=== PATIENT | female | born 1970 | race Caucasian/White ===

== ENCOUNTER 2024-03-26 00:27 | Emergency (ER) | payer BC, SELFPAY ==
[2024-03-26 00:34] VITALS: BP 150/90; PULSE 86; TEMP 36.7; O2SAT 100; BMI 25.1
[2024-03-26 01:23] LABS: D Dimer 1.05 mg/L FEU (<=0.59)
--- NOTE | 2024-03-26 01:39 | ED_ITS ---
HPI - Extremity Problem General Chief complaint: Extremity Problem, Nontraumatic Stated complaint: LEG PAIN/POST SURGERY Time Seen by Provider: 03/26/24 00:30 Source: patient Mode of arrival: walk-in Limitations: no limitations History of Present Illness HPI Narrative: This 53-year-old female who has a history of pulmonary embolism after surgery in the past presents for evaluation of swelling behind her right knee. The patient states that she had an elective tummy tuck at [facility] last Sunday. They told her to expect some bruising on to her abdominal wall, mons pubis and upper legs. She states that she has had the normal amount of bruising but started having some swelling behind her right knee in the past 1 to 2 days that is concerning to her. She does not smoke. She is not on any hormones or control. She denies any chest pain or shortness of breath. She has no dizziness tachycardia or palpitations. She was not told to take any blood thinners after her surgery. Related Data Home Medications ?Medication ?Instructions ?Recorded ?Confirmed losartan 50 mg-hydrochlorothiazide tab 03/26/24 12.5 mg tablet metoprolol succinate 25 mg mg PO 03/26/24 tablet,extended release 24 hr pantoprazole 40 mg tablet,delayed mg PO 03/26/24 release Allergies Allergy/AdvReac Type Severity Reaction Status Date / Time No Known Drug Allergies Allergy Verified 03/26/24 00:37 Review of Systems ROS Status of ROS 10 or more systems reviewed and unremark able except as noted in history and below Exam Narrative Exam Narrative: Vital signs and Nursing Notes reviewed: Patient is afebrile with a normal pulse, blood pressure is mildly elevated at 150/90, she is not hypoxic with pulse ox of 100% on room air General: Awake, alert, oriented, no acute distress, lying comfortably on the stretcher HEENT: Normocephalic atraumatic, mucous membranes are moist and pink, eyes are clear, normal conjunctiva, vision is grossly intact, posterior pharynx is normal in appearance. Chest: Lungs are clear to auscultation with good air entry, there is no wheezing rhonchi or rales appreciated no accessory muscle use, patient is speaking in complete sentences-no chest wall tenderness to palpation CVS: Regular rate and rhythm S1-S2, no murmurs rubs or gallops, pulses are brisk and equal bilaterally ABD: She is wearing an abdominal binder which she does not wish to remove. There is some notable bruising distally to the binder. Extremities: Moving all extremities, there is mild fullness behind the right knee in the posterior popliteal region. There is no calf swelling, induration, redness palpable cords or other notable abnormality. Patient is wearing shorts. Calf sizes are equal. Dorsalis pedis pulses are brisk and equal bilaterally. Feet are warm and sensate. There is some bruising on the upper thighs bilaterally consistent with postoperative state. Skin: Normal in appearance without rash,pallor, petechiae or purpura Neuro: No focal deficits Constitutional Vital Signs, click to edit/add: Last Vital Signs Temp 98.0 F 03/26/24 00:34 Pulse 86 03/26/24 00:34 Resp 18 03/26/24 00:34 BP 150/90 H 03/26/24 00:34 Pulse Ox 100 03/26/24 00:34 O2 Del Method Room Air 03/26/24 00:34 Course Vital Signs Vital signs: Vital Signs Temperature 98.0 F 03/26/24 00:34 Pulse Rate 86 03/26/24 00:34 Respiratory Rate 18 03/26/24 00:34 Blood Pressure 150/90 H 03/26/24 00:34 Pulse Oximetry 100 03/26/24 00:34 Oxygen Delivery Method Room Air 03/26/24 00:34 Temperature 98.0 F 03/26/24 00:34 Pulse Rate 86 03/26/24 00:34 Respiratory Rate 18 03/26/24 00:34 Blood Pressure 150/90 H 03/26/24 00:34 Pulse Oximetry 100 03/26/24 00:34 Oxygen Delivery Method Room Air 03/26/24 00:34 MDM - Extremity (Nontraumatic) MDM Narrative Medical decision making narrative: This 53-year-old female who is postop day 4 after having an elective tummy tuck surgery with kathy Platt presents for evaluation of lower extremity swelling specifically behind her right knee. The patient does not smoke. She is not on any control. She has been active since her surgery but does have a history of a postoperative PE in the past. She denies any chest pain or shortness of breath. Her vital signs are stable. She has some mild fullness behind her right knee as well as some small varicose veins. I explained to her that we could get a D-dimer and if it was positive schedule her for an outpatient ultrasound or get a CT scan of her chest. She does not feel the CT scan of her chest is necessary as she is not having any symptoms of a PE. The D-dimer was elevated at 1.05. She was given an oral Eliquis and will be scheduled for outpatient ultrasounds of her lower extremities today at 5 PM. She was encouraged return the emergency department for chest pain dizziness palpitations tachycardia syncope or any concerns. She will be referred to the ER from ultrasound for any positive findings. She is in agreement with this plan. Lab Data Labs: Lab Results 03/26/24 Range/Units 00:58 D-Dimer 1.05 H* (<=0.59) mg/L FEU Discharge Plan Discharge Stand Alone Forms: Portal Instructions Chief Complaint: Extremity Problem, Nontraumatic Clinical Impression: Swelling of lower extremity Patient Disposition: Home, Self-Care Time of Disposition Decision: 01:34 Condition: Good Prescriptions / Home Meds: No Action pantoprazole 40 mg tablet,delayed release (DR/EC) PO metoprolol succinate 25 mg tablet extended release 24 hr PO losartan-hydrochlorothiazide 50-12.5 mg tablet Print Language: Tamazight Instructions: Leg Edema (ED) Additional Instructions: Follow-up tomorrow for an ultrasound of your legs. It is scheduled for 5 PM. Please report to registration around 4:30- 4:45 PM for your ultrasound at 5 PM. Referrals: Grady Arriaga DO [Primary Care Provider] - 1 week
[2024-03-26] MEDS: APIXABAN 5 MG TABLET 10 MG PO (01:52)
[2024-03-26 01:55] VITALS: BP 146/82; PULSE 73; O2SAT 100
== END 2024-03-26 01:55 | disposition home or self-care (01) ==
PROVIDERS: Emergency Provider Emergency Medicine; PCP Internal Medicine
DX: M79.89 Other specified soft tissue disorders (principal); R79.1 Abnormal coagulation profile; Z86.711 Personal history of pulmonary embolism; Z98.890 Other specified postprocedural states
CPT/HCPCS: 36415; 85378; 93970; 99283

== ENCOUNTER 2024-03-26 16:16 | Outpatient (OUT) | payer BC, SELFPAY ==
--- NOTE | 2024-03-26 16:30 | US_ITS ---
[facility] [place] [id number] Patient Name: CASEY DIAZ MRN: [id number] date: 1970 Sex: F Assigned Patient Location: [place] Current Patient Location: [place] Accession/Order Number: [id number] Exam Date: 03/26/2024 16:38 Report Date: 03/26/2024 18:13 At the request of: PILI THOMASON Procedure: US venous doppler LE BI EXAM: US venous doppler LE BI HISTORY: ELEVATED D-DIMER R79.1 COMPARISON: None. TECHNIQUE: Ultrasonography of both lower extremities is performed from the groin to the calf. Resendiz scale images are performed, as well as color Doppler images with spectral waveforms. FINDINGS: There is normal compressibility of the deep venous structures. No intraluminal thrombus. Normal color Doppler images with spectral waveforms. Normal response to augmentation. US/US venous doppler LE BI IMPRESSION: No evidence for deep venous thrombosis. Electronically authenticated by: JACKELIN CHANDRA Date: 03/26/2024 18:13
--- OUTSIDE RECORDS SUMMARY | 2024-03-26 16:34 | XMS_ITS | CCD ---
Author Organization [facility] Care Team Providers Care Commercial Lines Underwriter Name Role Phone Bart Grady Toney Unavailable Unavailable Unavailable GRADY ARRIAGA Primary Care Physician Clare Justin Unavailable Dedra, Dr. Ulrich Referring Unavaila Grady Jaime Primary Care Unavailchago Colmenares, Dr. Ulrich Attending Unavaila madhuri Colmenares, Dr. Ulrich Referring Unavaila ble Grady Arriaga Palmer Primary Care Unavailabl e Dedra, Dr. Ulrich Attending Unavaila ble Gela Ortiz Unavailable Grady Arriaga Unavailable BART, DR GAINES Primary Care Unavailable JUAN ., DR DHALIWAL Consulting Unavailable JUAN ., DR DHALIWAL Attending Unavailable JUAN ., DR DHALIWAL Admitting Unavailable JUAN ., DR DHALIWAL Admitting Unavailable JUAN ., DR DHALIWAL Attending Unavailable BART, DR GAINES Primary Care Unavailable RYE, DR CARLOS Gipson Consulting Unavailable JUAN ., DR DHALIWAL Consulting Unavailable JUAN ., DR DHALIWAL Admitting Unavailable JUAN ., DR DHALIWAL Consulting Unavailable JUAN ., DR DHALIWAL Attending Unavailable BART, DR GAINES Primary Care Unavailable KELLY GARVEY Attending Unavailable ZOË Delacruz, KELLY Admitting Unavailable BART, DR GAINES Primary Care Unavailable CARLOS RUBI Consulting Unavailable ZOË Delacruz, KELLY Consulting Unavailable ADAIR SCHMITT Consulting Unavaila ble BART, DR GAINES Attending Unavailable BART, DR GAINES Admitting Unavailable BART, DR GAINES Primary Care Unavailable JUAN ., DR DHALIWAL Admitting Unavailable JUAN ., DR DHALIWAL Consulting Unavailable JUAN ., DR DHALIWAL Attending Unavailable BART, DR GAINES Primary Care Unavailable BART, DR GAINES Admitting Unavailable BART, DR GAINES Primary Care Unavailable BART, DR GAINES Consulting Unavailable BART, DR GAINES Attending Unavailable BART, DR GAINES Admitting Unavailable BART, DR GAINES Primary Care Unavailable BART, DR GAINES Consulting Unavailable BART, DR GAINES Attending Unavailable BART, DR GAINES Primary Care Unavailable KEKE, JOSIAH De Los Santos Consulting Unavailable KEKE, JOSIAH De Los Santos Attending Unavailable KEKE, JOSIAH De Los Santos Admitting Unavailable LAM DORSEY Consulting Unavailable Allergies Allergy Classification Reported Allergen(s) Allergy Type Date of Onset Reaction(s) Facility (3 sources) patient allergy list reviewed by nurse or physicia Propensity to adverse reactions 8 Comment:Done [employer] Other (3 sources) NONE CURRENT Propensity to adverse reactions 0 NONE CURRENT [employer] [facility] Other (3 sources) Allergies Reconciled Propensity to adverse reactions Unknown [employer] [facility] Other Medications Current Medications Medication Drug Class(es) Dates Sig (Normalized) Sig (Original) aspirin 81 mg delayed release oral tablet (20 sources) Platelet Aggregation Inhibitor, Nonsteroidal Anti-inflammatory Drug Start: 01-08-2024 take 81 mg by mouth once daily Aspirin Active 81 MG PO Daily January 08, 2024 12:00am Start: 02-21-2022 take 1 mg by mouth once daily aspirin 81 mg Oral EC Tab mg tab(s), Oral, Daily, Refills(s) 0 Start Date: 02/21/22 Status: Ordered take 1 tablet by daysi th every twenty-four hours Aspirin 81 MG 1 tablet Orally Once a day Active Baby Aspirin Not -Taking/PRN Baby Aspirin Not -Taking Baby Aspirin Act glendy Augmentin Tablets 875 MG (1 source) Start: 08-03-2021 take 1 tablet by mouth every twelve hours Augmentin Tablets 875 MG 1 tab(s) orally bid for 10 day(s) Jul, Active cephalexin 500 mg oral capsule (2 sources) Cephalosporin Antibacterial Start: 02-21-2022 take 1 mg by mouth every twelve hours Keflex 500 mg Cap mg cap(s), Oral, q12hr, Refills(s) 0 Start Date: 02/21/22 Status: Ordered ciprofloxacin 500 mg oral tablet (1 source) Quinolone Antimicrobial Start: 02-28-2022 Cipro 500 mg Tab See Instructions, Take 1 tab day prior to procedure and 1 tab day of procedure after the procedure, # 2 tab(s), Refills(s) 0, Pharmacy: [id number], 169, cm, 02/28/22 9:30:00 EDT, Height/Length Dosing, 95, kg, 02/21/22 14:43:00 EDT, Marciano... Start Date: 02/28/22 Status: Ordered Claritin-D 24 Hour 10-240 MG (1 source) Start: 05-28-2023 take 10-240 mg by mouth once daily Claritin-D 24 Hour 10-240 MG 1 tablet Orally Once a day for 30 days May, Active dexamethasone 1 mg/ml / neomycin 3.5 mg/ml / polymyxin b 44816 unt/ml ophthalmic suspension (1 source) Aminoglycoside Antibacterial, Polymyxin-class Antibacterial, Corticosteroid Start: 11-30-2020 take 2 drop(s) into the eye(s) four times daily Maxitrol 3.5-97894-2.1 2 drops into affected eye Ophthalmic Four times a day for 4 days Nov, Active escitalopram 5 mg oral tablet (6 sources) Serotonin Reuptake Inhibitor take 1 tablet by mouth once daily in the evening Escitalopram Oxalate 5 MG 1 tablet Orally Once a day, in evening for 30 days Active Lexapro Active fluticasone (1 source) Corticosteroid Start: 08-03-2021 take 2 spray(s) nasal route once daily FLONASE 50 mcg 2 sprays nasally qd Jul, Active hydroCHLOROthiazide 12.5 mg / losartan potassium 50 mg oral tablet (15 sources) Thiazide Diuretic, Angiotensin 2 Receptor Ophelia Start: 01-08-2024 take 1 tablet by mouth once daily Losartan-Hyd rochlorothia zide Active 1 TAB PO Daily January 08, 2024 12:00am Start: 04-06-2021 take 1 tablet by daysi th once daily hydrochlorothiazide-losartan 12.5 mg-50 mg Tab tab(s), Oral, Daily, Refill(s) 0 Start Date: 02/21/22 Status: Ordered 24 hr loratadine 10 mg / pseudoephedrine sulfate 240 mg extended release oral tablet (2 sources) alpha-Adrenergic Agonist Start: 05-28-2023 take 1 tablet by mouth every twenty-four hours Claritin-D 24 Hour 10-240 MG 1 tablet Orally Once a day for 30 days May, Active LORazepam 0.5 mg oral tablet (2 sources) Benzodiazepine Start: 01-08-2024 take 0.5 mg by mouth once daily as needed for anxiety Lorazepam Active 0.5 MG PO January 08, 2024 12:00am 1/2 - 1 Orally Once a day PRN anxiety Start: 10-09-2023 LORazepam 0.5 MG 1/2 - 1 Orally Once a day PRN anxiety for 30 days Sep, Active Losartan Potassium-HCTZ (2 sources) Losartan Potassium-HCTZ Active methylPREDNISolone 4 mg oral tablet (9 sources) Corticosteroid Start: 023 Medrol 4 MG as directed Orally as directed for 6 days Nov, Active 24 hr metoprolol succinate 25 mg extended release oral tablet (17 sources) beta-Adrenergic Ophelia Start: 024 take 25 mg by mouth once daily Metoprolol Succinate Active 25 MG PO Daily January 08, 2024 12:00am Start: 05-24-2021 take 1 mg by mouth once daily Toprol XL 25 mg Tab-ER mg tab(s), Oral, Daily, Refills(s) 0 Start Date: 02/21/22 Status: Ordered take 1 capsule by mo [facility] once daily Metoprolol Succinate 25 MG 1 capsule Orally Once a day Active Metoprolol Succi sigrid Active pantoprazole (13 sources) Proton Pump Inhibitor Start: 01-08-2024 take 1 tablet by mouth once daily in the morning Pantoprazole Active 0 .ROUTE .COMPLEX January 08, 2024 5:36pm TAKE 1 TABLET BY MOUTH EVERY MORNING ON AN EMPTY STOMACH Start: 01-08-2024 End: 01-08-2024 take 40 mg by mouth once daily Pantoprazole Discontinu ed 40 MG PO Daily January 08, 2024 12:00am January 08, 2024 5:36pm Start: 02-21-2022 Protonix 40 mg tablet Daily, Refills(s) 0 Start Date: 02/21/22 Status: Ordered take 1 tablet by daysi once daily in the morning Pantoprazole Sodium 40 mg TAKE 1 TABLET BY MOUTH EVERY MORNING ON AN EMPTY STOMACH for 30 Active 24 hr phentermine 7.5 mg / topiramate 46 mg extended release oral capsule (11 sources) Sympathomimetic Amine Anorectic Start: 02-21-2022 take 1 capsule by mouth once daily in the morning Qsymia 7.5 mg-46 mg oral capsule, extended release cap(s), Oral, qAM, Refill(s) 0 Start Date: 02/21/22 Status: Ordered microencapsulated potassium chloride 20 meq extended release oral tablet (14 sources) Start: 01-08-2024 take 1 tablet by mouth once daily Potassium Chloride Active 0 .ROUTE .COMPLEX January 08, 2024 5:36pm TAKE 1 TABLET BY MOUTH DAILY Start: 01-08-2024 End: 01-08-2024 take 20 mEq by mouth once daily Potassium Chloride Dis continued 20 MEQ PO Daily January 08, 2024 12:00am January 08, 2024 5:36pm Start: 07-04-2021 take 1 tablet by daysi th once daily Potassium Chloride ER 10 MEQ Oral Tablet Extended Release TAKE 1 TABLET DAILY. Quantity: 0 Refills: 0 Ordered: 05-Jul-2021 DO Start : 04-Jul-2021 Active take 1 tablet by daysi th once daily Potassium Chloride Gina ER 20 mEq TAKE 1 TABLET BY MOUTH DAILY Active take 1 tablet by daysi th once daily Potassium Chloride Gina ER 20 mEq TAKE 1 TABLET BY MOUTH DAILY for 30 Active predniSONE 20 mg oral tablet (1 source) Start: 08-03-2021 take 1 tablet by mouth every twelve hours predniSONE 20 MG 1 tablet Orally bid for 5 day(s) Jul, Active sulfacetamide sodium 100 mg/ml ophthalmic solution (3 sources) Sulfonamide Antibacterial Start: 05-28-2023 take 2 drop(s) into the eye(s) four times daily Sulfacetamide Sodium 10 % 2 drops Ophthalmic qid for 7 days May, Active sulfamethoxazole 800 mg / trimethoprim 160 mg oral tablet (9 sources) Dihydrofolate Reductase Inhibitor Antibacterial, Sulfonamide Antimicrobial Start: 11-16-2022 take 1 tablet by mouth every twelve hours Bactrim DS 800-160 MG 1 tablet Orally Twice a day for 10 day(s) Nov, Active Completed/Discontinued Medications Medication Drug Class(es) Dates Sig (Normalized) Sig (Original) 12 hr buPROPion hydrochloride 150 mg extended release oral tablet (8 sources) Aminoketone Start: 07-04-2021 take 1 tablet by mouth once daily buPROPion HCl ER (SR) 150 MG Oral Tablet Extended Release 12 Hour Take 1 tablet by mouth daily Quantity: 60 Refills: 0 Ordered: 05-Jul-2021 DO Start : 04-Jul-2021 Active Wellbutrin Not-T aking Wellbutrin Activ e fluconazole 150 mg oral tablet (11 sources) Azole Antifungal Start: 01-01-2022 Diflucan 150 MG 1 tablet Orally as directed Take 1 tablet p.o. today, repeat in 7 days. Dec, Not-Taking/PRN nitrofurantoin, macrocrystals 25 mg / nitrofurantoin, monohydrate 75 mg oral capsule (11 sources) Nitrofuran Antibacterial Start: 01-01-2022 take 1 capsule by mouth every twelve hours Macrobid 100 MG 1 cap(s) Orally bid for 5 day(s) Dec, Not-Taking/PRN rosuvastatin calcium 10 mg oral tablet (13 sources) HMG-CoA Reductase Inhibitor Start: 05-24-2021 take 1 tablet by mouth once daily in the evening Rosuvastatin Calcium 10 MG Oral Tablet TAKE 1 TABLET BY MOUTH EVERY EVENING Quantity: 30 Refills: 0 Ordered: 23-Sep-2021 DO Start : 24-May-2021 Active Crestor Not-Taki ng/PRN Crestor Not-Taki ng Crestor Active triamcinolone acetonide 40 mg/ml injectable suspension (16 sources) Corticosteroid Start: 08-21-2023 Kenalog-40 Aug, 60 mg Start: 12-20-2022 Kenalog-40 Apr, 40 mg Problems Active Problems Problem Classification Problem Date Documented Date Episodic/Chronic Acquired foot deformities (1 source) Foot drop, right foot Episodic Anxiety disorders (13 sources) Generalized anxiety disorder; Translations: [Generalized anxiety disorder] Chronic Attention-deficit, conduct, and disruptive behavior disorders (3 sources) Attention deficit hyperactivity disorder, predominantly inattentive type; Translations: [Attention deficit disorder of childhood without mention of hyperactivity] Onset: 12-07-2015 Chronic Cardiac dysrhythmias (3 sources) Nonsustained ventricular tachycardia ; Translations: [Paroxysmal ventricular tachycardia] Chronic Cardiac dysrhythmias (15 sources) Palpitations; Translations: [Palpitations] Episodic Conditions associated with dizziness or vertigo (15 sources) Dizziness; Translations: [Dizziness and giddiness] Episodic Diabetes mellitus without complication (14 sources) Impaired fasting glycemia; Translations: [Impaired fasting glucose] Onset: 10-12-2022 Episodic Esophageal disorders (8 sources) Esophageal reflux finding; Translations: [Esophageal reflux] Onset: 09-03-2014 Chronic Esophageal disorders (8 sources) Esophageal disorders; Translations: [Gastroesophageal reflux disease with esophagitis without hemorrhage] Essential hypertension (16 sources) Hypertensive disorder; Translations: [Unspecified essential hypertension] 02-21-2022 Chronic Fluid and electrolyte disorders (14 sources) Hypokalemia; Translations: [Hypokalemia] Onset: 10-11-2022 Episodic Genitourinary symptoms and ill-defined conditions (3 sources) Retention of urine; Translations: [Retention of urine, unspecified] Onset: 01-01-2022 Resolved: 01-01-2022 Episodic Headache; including migraine (13 sources) Migraine with aura; Translations: [Migraine with aura, not intractable, without status migrainosus] Chronic Headache; including migraine (1 source) Headache; including migraine; Translations: [HEADACHE UNSPECIFIED] Onset: 07-18-2022 Inflammation; infection of eye (except that caused by tuberculosis or sexually transmitteddisease) (17 sources) Allergic dermatitis of unspecified eye, unspecified eyelid; Translations: [Contact or allergic eyelid dermatitis] Onset: 02-12-2015 Episodic Influenza (3 sources) Upper respiratory tract infection due to Influenza; Translations: [Influenza due to unidentified influenza virus with other respiratory manifestations] Episodic Miscellaneous mental health disorders (13 sources) 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; 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 Mood disorders (20 sources) Mild recurrent major depression; Translations: [Major depressive disorder, recurrent, mild] Onset: 08-24-2015 Resolved: 02-09-2021 Chronic Other connective tissue disease (1 source) Pain in right foot; Translations: [PAIN IN RIGHT FOOT] Onset: 02-15-2023 Episodic Other endocrine disorders (13 sources) Disorder of endocrine system; Translations: [Endocrine disorder, unspecified] Onset: 02-01-2022 Episodic Other endocrine disorders (5 sources) Endocrine disorder, unspecified; Translations: [ENDOCRINE DISORDER UNSPECIFIED] Onset: 10-12-2022 Episodic Other nervous system disorders (7 sources) Common peroneal nerve paralysis; 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, 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 Other non-traumatic joint disorders (4 sources) Pain in right ankle and joints of right foot; Translations: [PAIN IN RIGHT ANKLE] Onset: 02-07-2023 Episodic Other nutritional; endocrine; and metabolic disorders (15 sources) Obesity; Translations: [Obesity, unspecified] Chronic Other nutritional; endocrine; and metabolic disorders (3 sources) Simple obesity ; Translations: [Other obesity due to excess calories] Onset: 09-26-2018 Chronic Other nutritional; endocrine; and metabolic disorders (6 sources) Body mass index 30+ - obesity; Translations: [Body mass index 31.0-31.9, adult] Onset: 02-07-2018 Chronic Other nutritional; endocrine; and metabolic disorders (3 sources) Obese class I; Translations: [Body mass index 32.0-32.9, adult] Onset: 02-07-2018 Chronic Other nutritional; endocrine; and metabolic disorders (1 source) Overweight in adulthood with body mass index of 25 or more but less than 30; Translations: [Overweight] Episodic Other skin disorders (13 sources) Vesicular eczema of hands and/or feet; Translations: [Dyshidrosis [pompholyx]] Episodic Other upper respiratory disease (17 sources) Seasonal allergic rhinitis; Translations: [Other seasonal allergic rhinitis] Chronic Other upper respiratory disease (3 sources) Other seasonal allergic rhinitis Chronic Other upper respiratory disease (3 sources) Allergic rhinitis; Translations: [Allergic rhinitis, unspecified] Onset: 06-05-2014 Chronic Other upper respiratory disease (2 sources) Seasonal allergy; Translations: [Other seasonal allergic rhinitis] Chronic Other upper respiratory infections (13 sources) Acute sinusitis, unspecified; Translations: [Acute pharyngitis] Onset: 09-08-2013 Resolved: 08-03-2021 Episodic Residual codes; unclassified (13 sources) Postmenopausal state; Translations: [Asymptomatic menopausal state] Onset: 01-06-2022 Episodic Sprains and strains (6 sources) Neck sprain; Translations: [Neck sprain and strain] Onset: 01-09-2019 Episodic Unclassified (3 sources) Other ventricular tachycardia; Translations: [Other ventricular tachycardia] Urinary tract infections (8 sources) Urinary tract infectious disease; Translations: [Urinary tract infection, site not specified] Onset: 01-01-2022 Resolved: 01-01-2022 Episodic Past or Other Problems Problem Classification Problem Date Documented Date Episodic/Chronic Abdominal pain (3 sources) Abdominal pain; Translations: [Unspecified abdominal pain] Onset: 05-05-2015 Episodic Bacterial infection; unspecified site (3 sources) Bacterial infectious disease; Translations: [Bacterial infection, unspecified, in conditions classified elsewhere and of unspecified site] Onset: 11-01-2018 Episodic Headache; including migraine (6 sources) Idiopathic stabbing headache; 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] Onset: 01-09-2019 Resolved: 02-09-2021 Episodic Immunizations and screening for infectious disease (4 sources) Contact with and (suspected) exposure to other viral communicable diseases; Translations: [Contact with and (suspected) exposure to other viral communicable diseases Z20.828] Onset: 08-03-2021 Resolved: 05-20-2022 Episodic Malaise and fatigue (3 sources) Fatigue; Translations: [Other fatigue] Onset: 02-01-2022 Resolved: 05-20-2022 Episodic Miscellaneous mental health disorders (3 sources) Emotional state finding; Translations: [Other symptoms and signs involving emotional state] Resolved: 02-09-2021 Episodic Nausea and vomiting (3 sources) Nausea and vomiting; Translations: [Nausea with vomiting, unspecified] Onset: 05-05-2015 Episodic Other aftercare (1 source) Other salvage determiner (current) drug therapy; Translations: [OTH MOSHGIACH CURRENT DRUG THERAPY] Onset: 07-18-2022 Episodic Other connective tissue disease (1 source) Cramp and spasm; Translations: [CRAMP AND SPASM] Onset: 07-18-2022 Episodic Other connective tissue disease (3 sources) Spasm; Translations: [Spasm of muscle] Onset: 10-20-2013 Episodic Other endocrine disorders (4 sources) Other specified endocrine disorders; Translations: [OTHER SPECIFIED ENDOCRINE DISORDERS] Onset: 10-25-2022 Episodic Other lower respiratory disease (3 sources) Dyspnea; Translations: [Shortness of breath] Resolved: 02-09-2021 Episodic Other nutritional; endocrine; and metabolic disorders (3 sources) Abnormal weight gain; Translations: [Abnormal weight gain] Onset: 08-24-2015 Episodic Other nutritional; endocrine; and metabolic disorders (3 sources) Overweight; Translations: [Overweight] Onset: 12-26-2017 Episodic Other nutritional; endocrine; and metabolic disorders (3 sources) Body mass index 25-29 - overweight; Translations: [Body mass index 28.0-28.9, adult] Onset: 12-26-2017 Episodic Other screening for suspected conditions (not mental disorders or infectious disease) (9 sources) Electrocardiogram abnormal; Translations: [Nonspecific abnormal electrocardiogram [ECG] [EKG]] Onset: 11-30-2022 Resolved: 08-28-2021 Episodic Other skin disorders (3 sources) Sebaceous cyst; Translations: [Sebaceous cyst] Onset: 02-25-2015 Episodic Otitis media and related conditions (7 sources) Eustachian tube salpingitis; Translations: [Unspecified Eustachian salpingitis, right ear] Onset: 12-26-2017 Resolved: 05-20-2022 Episodic Spondylosis; intervertebral disc disorders; other back problems (4 sources) Cervicalgia; Translations: [CERVICALGIA] Onset: 07-15-2022 Episodic Unclassified (2 sources) Never smoked tobacco; Translations: [Never a smoker] Unclassified (9 sources) NSVT (nonsustained ventricular tachycardia); Translations: [NSVT (nonsustained ventricular tachycardia)] Unclassified (1 source) Contact with and (suspected) exposure to covid-19 Z20.822 Unclassified (3 sources) General observation; Translations: [Observation following other accident] Onset: 01-09-2019 Viral infection (1 source) COVID-19 Results Test Name Value Interpretation Reference Range Facility DIHYDROTESTOSTERONEon 2022 Dihydrotestosterone 17 ng/dL Normal [facility] Comment on above: Result Comment: This test was developed and its performance characteristics determined by [facility]. It has not been cleared or approved by the Food and Drug Administration. Reference Range: Adult Female: 4 - 22 Performed By: #### D HT #### [facility] [address] [place] [address] Dr. Manny Eller TESTOSTERONE, FREE,DIRECT, T OTALon 12-09-2022 Free Testosterone(Direct) 1.7 pg/mL Normal 0.0-4.2 [facility] Comment on above: Result Comment: Perf ormed at: BN Performed By: #### T ESTFRD #### [facility] [address], [place] [address] Dr. Manny Eller Testosterone [Mass/Vol] 32 ng/dL Normal 4-50 [facility] Comment on above: Result Comment: Perf ormed at: CB Performed By: #### T ESTFRD #### [facility] [address], [place] [address] Dr. Manny Eller DHEA-SULFATEon 12-06-2022 DHEA-Sulfate 163.0 ug/dL Normal 41.2-243.7 [facility] Comment on above: Performed By: #### D HEASUL #### [facility] [address] [place] [address] [address] Manny Eller MG MAMM SCREEN 3D ELOY CADon 11-30-2022 MG MAMM SCREEN 3D ELOY CAD Patient: CASEY ZAMORA Exam Date: 11/30/2022 : 1970 Gender:F Ordering : DR MADHURI TAYLOR . Admission #: [id number] Family : Order #: [id number] CLICK HERE TO VIEW EXAM RADIOLOGY REPORT PROCEDURE: MAMMOGRAM SCREENING 3D BILATERAL CAD COMPARISON: MG MAMM ELOY SCRN W CAD DIG, 2015. MG MAMM SCREEN 3D ELOY CAD, 09/21/2021. INDICATIONS: Screening mammography Calculator Name NCI Breast Cancer Risk Assessment Tool 5 Year Breast Cancer Risk Not Reported. Lifetime Breast Cancer Risk Not Reported. Personal Breast Cancer No Personal Ovarian Cancer No Treatments None Family Cancers None LOCATION: [facility] BREAST COMPOSITION: Scattered areas fibroglandular density. FINDINGS: DIAGNOSTIC CATEGORY 1--NEGATIVE. NO CHANGE FROM COMPARISON ASSESSMENT. Scattered benign-appearing nodules are present. Scattered benign-appearing calcifications are present. Scattered benign-appearing lymph nodes are present. RIGHT BREAST: No significant suspicious finding. LEFT BREAST: No significant suspicious finding. RECOMMENDATIONS: ROUTINE MAMMOGRAM AND CLINICAL EVALUATION IN 12 MONTHS. PLEASE NOTE: A NORMAL MAMMOGRAM DOES NOT EXCLUDE THE POSSIBILITY OF BREAST CANCER. A CLINICALLY SUSPICIOUS PALPABLE LUMP SHOULD BE BIOPSIED. Dictated by: Carlos Gabriel MD on 11/30/2022 at 13:49 Approved by: Carlos Gabriel MD on 11/30/2022 at 13:57 Normal [facility] COVID/FLU RT-PCRon 02-06-202 3 SARS-CoV-2 (COVID-19) RNA BOB+probe Ql (Unsp spec) Positive [employer] Other COVID/FLU RT-PCR Negative [employer] [facility] [employer] Other CORTISOLon 10-26-2022 Cortisol 7.8 ug/dL Normal [facility] Comment on above: Result Comment: Mervin isol AM 6.2 - 19.4 Cortisol PM 2.3 - 11.9 Performed By: #### D HT #### [facility] [address] [place] [address] Dr. Manny Eller TESTOSTERONE, FREE,DIRECT, T OTALon 10-13-2022 Free Testosterone(Direct) <0.2 Normal 0.0-4.2 [facility] Comment on above: Result Comment: Perf ormed at: BN Performed By: #### T ESTFRD #### [facility] [address] [place] [address] Dr. Manny Eller Testosterone [Mass/Vol] ng/dL Critically low 4-50 [facility] Comment on above: Result Comment: Perf ormed at: CB Performed By: #### T ESTFRD #### [facility] [address] [place] [address] Dr. Manny Eller CORTISOLon 10-12-2022 Cortisol 0.5 ug/dL Normal [facility] Comment on above: Result Comment: Mervin isol AM 6.2 - 19.4 Cortisol PM 2.3 - 11.9 Performed By: #### C ORTISO #### [facility] [address] [place] [address] Dr. Manny Eller DHEA-SULFATEon 10-12-2022 DHEA-Sulfate 16.2 ug/dL Critically low 41.2-243.7 [facility] Comment on above: Performed By: #### D HEASUL #### [facility] [address] [place] [address] Dr. Manny Eller ESTRADIOLon 10-12-2022 Estradiol 30.9 pg/mL Normal [facility] Comment on above: Result Comment: Adul t Female: Follicular phase 12.5 - 166.0 Ovulation phase 85.8 - 498.0 Luteal phase 43.8 - 211.0 Postmenopausal <6.0 - 54.7 1st trimester 215.0 - >4300.0 [place] ECLIA methodology Performed By: #### C MP, LIPID #### [facility] [address] [place] [address] Dr. Manny Eller ESTRONEon 10-12-2022 Estrone, Serum <6 Normal [facility] Comment on above: Result Comment: Rang e Adult (Premenopausal) 27 - 231 Menstrual Cycle (1-10 days) 19 - 149 Menstrual Cycle (11-20 days) 32 - 176 Menstrual Cycle (21-30 days) 37 - 200 Adult (Postmenopausal) 0 - 125 Performed By: #### E STRONE #### [facility] [address] [place] [address] Dr. Manny Eller PROGESTERONEon 10-12-2022 Progesterone <0.1 Normal [facility] Comment on above: Result Comment: Foll icular phase 0.1 - 0.9 Luteal phase 1.8 - 23.9 Ovulation phase 0.1 - 12.0 First trimester 11.0 - 44.3 Second trimester 25.4 - 83.3 Third trimester 58.7 - 214.0 Postmenopausal 0.0 - 0.1 Performed By: #### C MP, LIPID #### [facility] [address] [place] [address] Dr. Manny Eller SEX HORMONE-BINDING GLOBULIN on 10-12-2022 Sex Horm Binding Glob, Serum 55.9 nmol/L Normal 17.3-125.0 [facility] Comment on above: Performed By: #### S EXHBG #### [facility] [address] [place] [address] Dr. Manny Eller GLYCOHEMOGLOBIN A1Con 2021 ADA RECOMMENDATION SEE BELOW Normal [facility] Comment on above: Result Comment: ADA RECOMMENDED LIMIT 4.0 - 6.0 ADA THERAPEUTIC TARGET < 7.0 ACTION SUGGESTED > 7.0 Performed By: #### D HT #### [facility] [address] [place] [address] Dr. Manny Eller Glucose [Mass/Vol] 108 mg/dL Normal [facility] Comment on above: Performed By: #### D HT #### [facility] [address] [place] [address] Dr. Manyn Eller HbA1c (Bld) [Mass fraction] 5.4 % Normal 4.5-6.2 [facility] Comment on above: Performed By: #### D HT #### [facility] [address] [place] [address] Dr. Manny Eller POTASSIUMon 10-11-2022 Potassium [Moles/Vol] 3.6 mmol/L Normal 3.5-5.1 [facility] Comment on above: Performed By: #### C MP, LIPID #### [facility] [address] [place] [address] Dr. Manny Eller VITAMIN D 25 OHon 10-11-2022 VIT D 25-OH 37.3 ng/mL Normal [facility] Comment on above: Performed By: #### D HT #### [facility] [address] [place] [address] Dr. Manny Eller VIT D RANGES SEE BELOW Normal [facility] Comment on above: Result Comment: <20 ng/mL Vit D deficient 20 - <30 ng/mL Vit D insufficient 30 - 100 ng/mL Vit D sufficient >100 ng/mL Potential Toxicity Performed By: #### D HT #### [facility] [address] [place] [address] Dr. Manny Eller CBC AUTO DIFFon 09-25-2022 BASO # 0.1 103/ul Normal 0.0-0.1 [facility] Comment on above: Performed By: #### C MP, LIPID #### [facility] [address] [place] [address] Dr. Manny Eller Basophils/100 WBC (Bld) 1.1 % Normal 0.2-2.0 [facility] Comment on above: Performed By: #### C MP, LIPID #### [facility] [address] [place] [address] Dr. Manny Eller EO # 0.1 103/ul Normal 0.0-0.7 [facility] Comment on above: Performed By: #### C MP, LIPID #### [facility] [address] [place] [address] Dr. Manny Eller Eosinophils/100 WBC (Bld) 1.1 % Normal 0.9-7.0 [facility] Comment on above: Performed By: #### C MP, LIPID #### [facility] [address] [place] [address] Dr. Manny Eller Erythrocyte distribution width (RBC) [Ratio] 12.2 % Normal 11.0-15.0 [facility] Comment on above: Performed By: #### C MP, LIPID #### [facility] [address] [place] [address] Dr. Manny Eller Hematocrit (Bld) [Volume fraction] 42.9 % Normal 36.0-48.0 [facility] Comment on above: Performed By: #### C MP, LIPID #### [facility] [address] [place] [address] Dr. Manny Eller Hemoglobin (Bld) [Mass/Vol] 15.0 g/dL Normal 12.0-16.0 [facility] Comment on above: Performed By: #### C MP, LIPID #### [facility] [address] [place] [address] Dr. Manny Eller IG # 0.01 10e3/ul Normal 0.00-0.03 [facility] Comment on above: Performed By: #### C MP, LIPID #### [facility] [address] [place] [address] Dr. Manny Eller IG % 0.2 % Normal 0.0-0.5 [facility] Comment on above: Performed By: #### C MP, LIPID #### [facility] [address] [place] [address] Dr. Manny Eller LYMPH # 1.3 103/ul Normal 1.2-3.8 [facility] Comment on above: Performed By: #### C MP, LIPID #### [facility] [address] [place] [address] Dr. Manny Eller Lymphocytes/100 WBC (Bld) 28.4 % Normal 20.5-60.0 [facility] Comment on above: Performed By: #### C MP, LIPID #### [facility] [address] [place] [address] Dr. Manny Eller MANUAL DIFF REQ NO Normal [facility] Comment on above: Performed By: #### C MP, LIPID #### [facility] [address] [place] [address] Dr. Manny Eller MCH (RBC) [Entitic mass] 32.3 pg Normal 26.7-34.0 [facility] Comment on above: Performed By: #### C MP, LIPID #### [facility] [address] [place] [address] Dr. Manny Eller MCHC (RBC) [Mass/Vol] 35.0 g/dL Normal 29.9-35.2 [facility] Comment on above: Performed By: #### C MP, LIPID #### [facility] [address] [place] [address] Dr. Manny Eller MCV (RBC) [Entitic vol] 92.5 fL Normal 81.0-99.0 [facility] Comment on above: Performed By: #### C MP, LIPID #### [facility] [address] [place] [address] Dr. Manny Eller MONO # 0.3 103/ul Normal 0.3-0.8 [facility] Comment on above: Performed By: #### C MP, LIPID #### [facility] [address] [place] [address] Dr. Manny Eller Monocytes/100 WBC (Bld) 7.0 % Normal 1.7-12.0 [facility] Comment on above: Performed By: #### C MP, LIPID #### [facility] [address] [place] [address] Dr. Manny Eller NEUT # 2.8 103/ul Normal 1.4-6.5 [facility] Comment on above: Performed By: #### C MP, LIPID #### [facility] [address] [place] [address] Dr. Manny Eller Neutrophils/100 WBC (Bld) 62.2 % Normal 43.0-75.0 [facility] Comment on above: Performed By: #### C MP, LIPID #### [facility] [address] [address] [address] Manny Eller Platelet mean volume (Bld) [Entitic vol] 9.6 fL Normal 9.5-13.5 [facility] Comment on above: Performed By: #### C MP, LIPID #### [facility] [address] [address] [address] Manny Eller PLT 322 103/ul Normal 150-450 [facility] Comment on above: Performed By: #### C MP, LIPID #### [facility] [address] [address] [address] Manny Eller RBC 4.64 106/ul Normal 4.20-5.40 [facility] Comment on above: Performed By: #### C MP, LIPID #### [facility] [address] [place] [address] Dr. Manny Eller WBC 4.6 103/ul Normal 4.0-11.0 [facility] Comment on above: Performed By: #### C MP, LIPID #### [facility] [address] [place] [address] Dr. Manny Eller LIPID PROFILEon 09-25-2022 CHOL-HDL RATIO NORM SEE BELOW Normal [facility] Comment on above: Result Comment: 3.3 - 4.4 LOW RISK 4.4 - 7.1 AVERAGE RISK 7.1 - 11.0 MODERATE RISK >11.0 HIGH RISK Performed By: #### C MP, LIPID #### [facility] [address] [place] [address] Dr. Manny Eller Cholesterol [Mass/Vol] 171 mg/dL Normal <=200 [facility] Comment on above: Performed By: #### C MP, LIPID #### [facility] [address] [address] [address] Manny Eller Cholesterol in HDL [Mass/Vol] 49 mg/dL Normal 40-60 [facility] Comment on above: Performed By: #### C MP, LIPID #### [facility] [address] [address] [address] Manny Eller Cholesterol in LDL [Mass/Vol] 103.4 mg/dL Normal [facility] Comment on above: Performed By: #### C MP, LIPID #### [facility] [address] [address] [address] Manny Eller Cholesterol.total/Choles terol in HDL [Mass ratio] 3.5 {ratio} Normal [facility] Comment on above: Performed By: #### C MP, LIPID #### [facility] [address] [address] [address] Manny Eller HDL NORMAL > or = 60 mg/dl - LOW CARDIOVASCULAR RISK <40 mg/dl - HIGH CARDIOVASCULAR RISK Normal [facility] Comment on above: Performed By: #### C MP, LIPID #### [facility] [address] [address] [address] Manny Eller LDL CALC NORMAL SEE BELOW Normal [facility] Comment on above: Result Comment: <100 mg/dl OPTIMAL 100 - 129 mg/dl NEAR OR ABOVE OPTIMAL 130 - 159 mg/dl BORDERLINE HIGH 160 - 189 mg/dl HIGH >190 mg/dl VERY HIGH Performed By: #### C MP, LIPID #### [facility] [address] [address] [address] Manny Eller Triglyceride [Mass/Vol] 93 mg/dL Normal <=[address] [facility] Comment on above: Performed By: #### C MP, LIPID #### [facility] [address] [address] [address] Manny Eller VLDL CALC 18.6 mg/dL Normal [facility] Comment on above: Performed By: #### C MP, LIPID #### [facility] [address] [address] [address] Manny Eller PROF 14(COMP METB)on 022 Albumin [Mass/Vol] 3.8 g/dL Normal 3.4-5.0 [facility] Comment on above: Performed By: #### C MP, LIPID #### [facility] [address] [address] [address] Manny Eller Albumin/Globulin [Mass ratio] 1.1 {ratio} Normal [facility] Comment on above: Performed By: #### C MP, LIPID #### [facility] [address] [address] [address] Manny Eller ALP [Catalytic activity/Vol] 73 U/L Normal 46-116 [facility] Comment on above: Performed By: #### C MP, LIPID #### [facility] [address] [address] [address] Manny Eller ALT [Catalytic activity/Vol] 39 U/L Normal 14-59 [facility] Comment on above: Performed By: #### C MP, LIPID #### [facility] [address] [address] [address] Manny Eller Anion gap [Moles/Vol] 11.6 mmol/L Normal [facility] Comment on above: Performed By: #### C MP, LIPID #### [facility] [address] [address] [address] Manny Eller AST [Catalytic activity/Vol] 23 U/L Normal 15-37 [facility] Comment on above: Performed By: #### C MP, LIPID #### [facility] [address] [address] [address] Manny Eller Bilirubin [Mass/Vol] 0.7 mg/dL Normal 0.2-1.0 [facility] Comment on above: Performed By: #### C MP, LIPID #### [facility] [address] [address] [address] Manny Eller Calcium [Mass/Vol] 9.3 mg/dL Normal 8.5-10.1 [facility] Comment on above: Performed By: #### C MP, LIPID #### [facility] [address] [address] [address] Manny Eller Chloride [Moles/Vol] 101 mmol/L Normal 98-107 [facility] Comment on above: Performed By: #### C MP, LIPID #### [facility] [address] [address] [address] Manny Eller CO2 [Moles/Vol] 31.2 mmol/L Normal 21.0-32.0 [facility] Comment on above: Performed By: #### C MP, LIPID #### [facility] [address] [address] [address] Manny Eller Creatinine [Mass/Vol] 0.87 mg/dL Normal 0.55-1.02 [facility] Comment on above: Performed By: #### C MP, LIPID #### [facility] [address] [address] [address] Manny Eller EGFR-AF MALAWIAN >60 Normal >=60 [facility] Comment on above: Performed By: #### C MP, LIPID #### [facility] [address] [address] [address] Manny Eller EGFR-NON AF MALAWIAN >60 Normal >=60 [facility] Comment on above: Performed By: #### C MP, LIPID #### [facility] [address] [address] [address] Manny Eller Globulin (S) [Mass/Vol] 3.6 g/dL Normal [facility] Comment on above: Performed By: #### C MP, LIPID #### [facility] [address] [address] [address] Manny Eller Glucose [Mass/Vol] 124 mg/dL Critically high 74-106 [facility] Comment on above: Performed By: #### C MP, LIPID #### [facility] [address] [address] [address] Manny Eller Potassium [Moles/Vol] 2.8 mmol/L Critically low 3.5-5.1 [facility] Comment on above: Performed By: #### C MP, LIPID #### [facility] [address] [address] [address] Manny Eller Protein [Mass/Vol] 7.4 g/dL Normal 6.4-8.2 [facility] Comment on above: Performed By: #### C MP, LIPID #### [facility] [address] [address] [address] Manny Eller Sodium [Moles/Vol] 141 mmol/L Normal 136-145 [facility] Comment on above: Performed By: #### C MP, LIPID #### [facility] [address] [place], [place] [address] [address] Manny Eller Urea nitrogen [Mass/Vol] 15.0 mg/dL Normal 7.0-18.0 [facility] Comment on above: Performed By: #### C MP, LIPID #### [facility] [address] [place], [place] [address] [address] Manny Eller Urea nitrogen/Creatinine [Mass ratio] 17.2 mg/mg Normal [facility] Comment on above: Performed By: #### C MP, LIPID #### [facility] [address] [place], [place] [address] [address] Manny Eller Office Visit (Cardiology)on 07-18-2022 Follow-up visit Diagnoses/Problems Assessed Palpitations (785.1) (R00.2) NSVT (nonsustained ventricular tachycardia) (427.1) (I47.29) White coat syndrome with hypertension (401.9) (I10) Hypertension (401.9) (I10) Never a smoker Abnormal electrocardiogram (794.31) (R94.31) Dizziness (780.4) (R42) Class 2 obesity with body mass index (BMI) of 36.0 to 36.9 in adult (278.00,V85.36) (E66.9,Z68.36) Overweight with body mass index (BMI) of 28 to 28.9 in adult (278.02,V85.24) (E66.3,Z68.28) Orders Hypertension, Palpitations Renew: Metoprolol Succinate ER 25 MG Oral Tablet Extended Release 24 Hour; TAKE 1 TABLET DAILY Basic Metabolic Panel; Status:Active - Retrospective Authorization; Requested for:18Jul2022; Hypertension, White coat syndrome with hypertension Renew: Losartan Potassium-HCTZ 50-12.5 MG Oral Tablet; TAKE 1 TABLET BY MOUTH EVERY DAY NSVT (nonsustained ventricular tachycardia), Palpitations Renew: Aspirin EC 81 MG Oral Tablet Delayed Release; TAKE 1 TABLET DAILY IO EKG Electrocardiogram- 12 Lead; Status:Complete; Done: 18Jul2022 Overweight with body mass index (BMI) of 28 to 28.9 in adult Healthy Weight Tips; Status:Complete - Retrospective Authorization; Done: 18Jul2022 Some eating tips that can help you lose weight.; Status:Complete - Retrospective Authorization; Done: [id number] Palpitations Continue with our present treatment plan.; Status:Complete - Retrospective Authorization; Done: [id number] SocHx: Never a smoker Tobacco Use Screening; Status:Complete; Done: [id number] Patient Instructions Please bring all medicines, vitamins, and herbal supplements with you when you come to the office. Prescriptions will not be filled unless you are compliant with your follow up appointments or have a follow up appointment scheduled as per instruction of your physician. Refills should be requested at the time of your visit. Chief Complaint CASEY ZAMORA is being seen for a 9 month follow-up of. History of Present Illness Patient is here for follow-up to management for previous evaluation for palpitation, hypertension and documentation of 1 episode of 7 beat nonsustained ventricular tachycardia. Since last time I saw her she denies any cardiac complaint of chest pain, palpitation, lightheadedness, dizziness or syncope. She remains fairly active. She denies any cardiac symptomatology. Assessment 1. Reevaluation of palpitation with documentation 1 run of 7 beat nonsustained ventricular tachycardia. No recurrence 2. One episode of 7 beat nonsustained ventricular tachycardia in background most normal LV systolic function and no clear documentation of ischemic heart disease by history recent stress test was negative 3. He has echocardiogram showed questionable regional motion abnormality of the anterior wall and stress test showed no ischemia and normal LV systolic function 4. His complaint of shortness of breath resolved 5. Hypertension controlled controlled with component of whitecoat hypertension 6. Mild hypokalemia due to diuretic therapy corrected last potassium was 4 Plan 1. Patient remains asymptomatic. We will continue with the same management 2. I recommended to her to continue to monitor her blood pressure at home and notify me if it is elevated 3. We will repeat her lab work as ordered 4. I advised the patient to notify with changes of cardiac status or symptoms 5. We will see her in 1 year with plan to repeat her EKG Surgical History Problems History of Appendectomy History of Bladder surgery History of Complete colonoscopy History of Hysterectomy History of Tubal ligation Current Meds Medication NameInstruction Aspirin EC 81 MG Oral Tablet Delayed ReleaseTAKE 1 TABLET DAILY. buPROPion HCl ER (SR) 150 MG Oral Tablet Extended Release 12 HourTake 1 tablet by mouth daily Losartan Potassium-HCTZ 50-12.5 MG Oral TabletTAKE 1 TABLET BY MOUTH EVERY DAY Metoprolol Succinate ER 25 MG Oral Tablet Extended Release 24 HourTAKE 1 TABLET DAILY. Potassium Chloride ER 10 MEQ Oral Tablet Extended ReleaseTAKE 1 TABLET DAILY. Patient did not bring medication list or bottles. Updated verbally with patient Allergies NoKnown No Known Allergies Recorded By: Luisa Persaud; 10/08/2021 9:58:45 AM Social History Problems Never a smoker No alcohol use No caffeine use No illicit drug use Review of Systems Constitutional: not feeling tired. Cardiovascular: no intermittent leg claudication and as noted in HPI. Respiratory: no cough and no shortness of breath. Gastrointestinal: no change in bowel habits and no blood in stools. Integumentary: no skin rashes. Neurological: no seizures and no frequent falls. All other systems have been reviewed and are negative for complaint. Vitals Vital Signs Recorded: 18Jul2022 01:41PM Heart Rate68, L Radial [id number], LUE, Sitting [id number], LUE, Sitting Height5 ft 7 in [id number] lb 4 oz BMI Dgvhvbhatx37.54 kg/m2 BSA Ca (more content not included)... Normal [place] Tobacco Screening.on Adult depression screening assessment No [facility] 250 DO Work Phone: Tobacco use status [facility] b) No Replaced By [facility] 250 DO Work Phone: CT HEAD WO CONon 07-15-2022 CT HEAD WO CON EXAMINATION: CT HEAD WO CON HISTORY: Headache COMPARISON: MR brain 04/27/2020. TECHNIQUE: CT examination of the head without IV contrast. Dose reduction techniques were achieved by using automated exposure control and/or adjustment of mA and/or kV according to patient size and/or use of iterative reconstruction technique. FINDINGS: Calvarium/skull base: No evidence of acute fracture or destructive lesion. Mastoids and middle ears demonstrate no substantial mucosal disease. Paranasal sinuses: No air fluid levels. Brain: No acute intracranial hemorrhage. No acute large vascular territory infarct. No mass lesion or mass effect. No hydrocephalus. IMPRESSION: No acute intracranial process. Electronically authenticated by: ADAIR SCHMITT Date: 2022-07-15 11:31 Normal [facility] CTA NECK WO W CONon 10-01-20 22 CTA NECK WO W CON EXAMINATION: CTA NECK WO W CON, CTA HEAD WO W CON HISTORY: HEADACHE Left-sided neck pain. COMPARISON: Brain MRI 04/27/2020 TECHNIQUE: Axial CT images of the head and neck were acquired following administration of intravenous contrast. Axial sagittal and coronal maximum intensity projection images of the head and neck were constructed. MIP (maximum intensity projection) images were performed. Carotid stenosis is reported according to NASCET criteria. Dose reduction techniques were achieved by using automated exposure control and/or adjustment of mA and/or kV according to patient size and/or use of iterative reconstruction technique. Contrast: 100 mL Omnipaque 350 FINDINGS: Head CTA: No acute intracranial hemorrhage within limits of a contrast-enhanced head CT. No mass effect, midline shift or extra-axial fluid collection. No ventriculomegaly, sulcal effacement or loss of cadena/white matter differentiation No acute osseous abnormality. The paranasal sinuses and mastoid air cells are clear. Orbits and globes are unremarkable There is opacification of the intracranial internal carotid, vertebral and basilar arteries. The nondominant left vertebral artery terminates in the posterior inferior cerebellar artery. There is opacification of the anterior, middle and posterior cerebral arteries. Prominent posterior commuting arteries are noted bilaterally. No focal intracranial stenosis, large vessel occlusion or aneurysm. No abnormal enhancement. There is opacification of the superior sagittal sinus, inferior sagittal sinus, internal cerebral veins, vein of Clifford, straight sinus. NECK CT: Aortic arch and origins of great vessels are unremarkable. The innominate and proximal subclavian arteries are unremarkable. The right common carotid artery and cervical right internal carotid artery are unremarkable. The left common carotid artery and cervical left internal carotid artery are unremarkable. The vertebral arteries are opacified. The right vertebral artery is dominant. No measurable carotid or vertebral artery stenosis. No evidence of aneurysm or dissection within the neck. There is straightening of the normal cervical lordosis. No acute osseous abnormality. The thyroid gland is unremarkable. No acute abnormality in the visualized lung apices. IMPRESSION: HEAD CTA: 1. No focal intracranial stenosis, large vessel occlusion or aneurysm. 2. The nondominant left vertebral artery terminates in the posterior inferior cerebellar artery. 3. No acute intracranial hemorrhage or mass effect. Neck CTA: No measurable carotid or vertebral artery stenosis. No evidence of aneurysm or dissection within the neck. Electronically authenticated by: CARLOS RUBI Date: 2022-07-15 14:56 Normal [facility] Patient Educationon 06-07-20 22 Patient Education Infectious Disease Infection Prevention in the Home If you have an infection, may have been exposed to an infection, or are taking care of someone who has an infection, it is important to know how to keep the infection from spreading. Follow your health care provider's instructions and use these guidelines to help stop the spread of infection. How infections are spread In order for an infection to spread, the following must be present: ? A germ. This may be a virus, bacteria, fungus, or parasite. ? A place for the germ to live. This may be: ? On or in a person, animal, plant, or food. ? In soil or water. ? On surfaces, such as a door handle. ? A person or animal who can develop a disease if the germ enters the body (host). The host does not have resistance to the germ. ? A way for the germ to enter the host. This may occur by: ? Direct contact with an infected person or animal. This can happen through shaking hands or hugging. Some germs can also travel through the air and spread to others. This can happen when an infected person coughs or sneezes on or near other people. ? Indirect contact. This occurs when the germ enters the host through contact with an infected object. Examples include: ? Eating or drinking food or water that has the germ (is contaminated). ? Touching a contaminated surface with your hands, and then touching your face, eyes, nose, or mouth. Supplies needed: ? Soap. ? Alcohol-based hand well puller. ? Standard cleaning products. ? Disinfectants, such as bleach. ? Reusable cleaning cloths, sponges, or paper towels. ? Disposable or reusable utility gloves. How to prevent infection from spreading There are several things that you can do to help prevent infection from spreading. Take these general actions Everyone should take the following actions to prevent the spread of infection: ? Wash your hands often with soap and water for at least 20 seconds. If soap and water are not available, use alcohol-based hand well puller. ? Avoid touching your face, mouth, nose, or eyes. ? Cough or sneeze into a tissue, sleeve, or elbow instead of into your hand or into the air. ? If you cough or sneeze into a tissue, throw it away immediately and wash your hands. Keep your bathroom clean ? Provide soap. ? Change towels and washcloths frequently. ? Change toothbrushes often and store them separately in a clean, dry place. ? Clean and disinfect all surfaces, including the toilet, floor, tub, shower, and sink. ? Do not share personal items, such as razors, toothbrushes, deodorant, reese, brushes, towels, and washcloths. Maintain hygiene in the kitchen ? Wash your hands before and after preparing food and before you eat. ? Clean the inside of your refrigerator each week. ? Keep your refrigerator set at 40?F (4?C) or less, and set your freezer at 0?F (?18?C) or less. ? Keep work surfaces clean. Disinfect them regularly. ? Wash your dishes in hot, soapy water. Air-dry your dishes or use a director of event management. ? Do not share dishes or eating utensils. Handle food safely ? Store food carefully. ? Refrigerate leftovers promptly in covered containers. ? Throw out stale or spoiled food. ? Thaw foods in the refrigerator or microwave, not at room temperature. ? Serve foods at the proper temperature. Do not eat raw meat. Make sure it is cooked to the appropriate temperature. Cook eggs until they are firm. ? Wash fruits and vegetables under running water. ? Use separate cutting boards, plates, and utensils for raw foods and cooked foods. ? Use a clean spoon each time you sample food while cooking. Do laundry the right way ? Wear gloves if laundry is visibly soiled. ? Do not shake soiled laundry. Doing that may send germs into the air. ? Wash laundry in hot water. ? If you cannot wash the laundry right away, place it in a plastic bag and wash it as soon as possible. Be careful around animals and pets ? Wash your hands before and after touching animals. ? If you have a pet, ensure that your pet stays clean. Do not let people with weak immune systems touch bird droppings, fish tank water, or a litter box. ? If you have a pet cage or litter box, be sure to clean it every day. ? If you are sick, stay away from animals and have someone else care for them if possible. How to clean and disinfect objects and surfaces Precautions ? Some disinfectants work for certain germs and not others. Read the high school band teacher's instructions or read online resources to determine if the product you are using will work for the germ you are trying to remove. ? If you choose to use bleach, use it safely. Never mix it with other cleaning products, especially those that contain ammonia. This mixture can create a dangerous gas that may be deadly. ? Keep proper movement of fresh air in your home (ventilation). ? Pour used mop water down the utility sink or toil (more content not included)... Normal [facility] Urology Office/Clinic Noteon 06-07-2022 Urology Office/Clinic Note Chief Complaint Follow up from Cysto/UD HPI Staff Casey is a 51 y/o female here for a 6 week f/u to Cystoscopy/UD done 03/02/2022. Previous DX: Recurrent UTI, incomplete bladder emptying. Pt could not give a UA sample today but states no issues. Dysuria: _Denies Incomplete bladder emptying: _Denies Hematuria: _Denies Frequency: _Denies Urgency: _Denies Nocturia: _Denies Stream: _Steady stream Leaking: _Denies Post void dripping: _Denies Wearing pads/ Depends: _Denies Urge incontinence: _Denies Stress incontinence: _Denies Incontinence without Sensory Awareness: _Denies Abdominal pain: _Denies Flank pain: _Denies Sexual complaints: _ History of Present Illness staff HPI reviewed and agree. Review of Systems PHQ Score Initial Depression Screen Score: 0 no fever, chills, malaise, myalgia. no rash/lesions. no chest pain, palpitations, or SOB. no abdominal pain, nausea, vomiting. no unilateral calf swelling, redness, pain Physical Exam Vitals & Measurements HR: 68(Peripheral) RR: 16 BP: 142/88 HT: 169 cm HT: 169.0 cm WT: 95 kg WT: 95.0 kg BMI: 33.26 General: nontoxic, NAD Mouth: moist mucosa Lungs: normal respiratory effort Cardio: regular rate, good distal perfusion Abdomen: nondistended, no suprapubic distention or tenderness, no CVA tenderness Neurologic: Grossly normal Skin: No rashes or suspicious lesions Assessment/Plan 1. Recurrent UTI (N39.0: Urinary tract infection, site not specified) Cystoscopy/UD done 03/02/2022 Pt stated she has not had any infections since last visit. Pt is no longer using post-coital abx. Overall pt is doing well and has no urinary complaints at this time. 2. Incomplete bladder emptying (R33.9: Retention of urine, unspecified) Improved since cysto/ud. offered scheduled f/u. pt prefers PRN. Follow-up With When Contact Information MABLE DESHPANDE PA-C, URL Only if needed [address] [place] [address] Additional Instructions: PRN Patient Education Infection Prevention in the Home I, Aure Eagle, personally scribed for Mable Deshpande PA-C on 06/07/2022 15:02:30. . Documentation recorded by the scribfeng Eagle accurately reflects the services(s) I performed and decisions made by me. Authenticated by Mable Deshpande PA-C on 06/07/2022 16:03:02. Problem List/Past Medical History Ongoing Hypertension Recurrent UTI Historical No qualifying data Procedure/Surgical History Appendectomy, Hysterectomy, Tubal ligation. Medications aspirin 81 mg Oral EC Tab, Oral, Daily Cipro 500 mg Tab, See Instructions, Not taking hydrochlorothiazide- losartan 12.5 mg-50 mg Tab, Oral, Daily Keflex 500 mg Cap, Oral, q12hr Protonix 40 mg tablet, Daily Qsymia 7.5 mg-46 mg oral capsule, extended release, Oral, qAM Toprol XL 25 mg Tab-ER, Oral, Daily Allergies No Known Medication Allergies Social History Tobacco Never (less than 100 in lifetime) Tobacco Use:. Never Smokeless Tobacco Use:., 06/07/2022 Family History Diabetes clinic: Mother. High cholesterol: Father. Hypertension: Mother. Stroke: Mother. Normal [facility] Comment on above: Result Comment: Elec tronically Signed By: MABLE DESHPANDE PA-C\.br\Date and Time Signed: 06/07/22 16:03 EDT\.br\Electronically Co-Signed By: Aure Eagle\.br\Date and Time Co-Signed: 06/07/22 15:02 EDT Coding Summary.on 03-06-2022 Coding Summary. [id number] Gh0bWw+PGhlYWQ+PE1FV JDtW85dqGKskG9VG9bFW S1CHQGFOIHTNW9CZP5lo XP9MAnuA7RqxhEe AcuriBPdET99LWk3JXA6 qBknIQhydN6cdJQpH7y7 IxAmOG67vF19AKziTIYs SgE9DsGgnzjrlKXh U4moVfSjyZOwEij+PHRh YmxlIHdpZHRoPScxMDAl QqGngAvfLI3jTs1sFSEz LWNvbGxhcHNlOiBj j4xwTRRaRMrpBQ3wyVma J3ElgCL6JGHbx3t8Qg86 dHI+JBGeKKM9wZkgSGka a327MeZak2ueBYE4 aIRuJAvwDAB4X31id4H9 EOYhKFOePDY0xZI8uI4l oQutjnfyB3QhxUJvQpF4 PJJ5kSHsyV1vaKvt kqmbaB2bNdb+Q57HNI1Q AAZPGT9LTyb3W0ZzOynd dHI+AS00QOUsHP65dOKy aDGss8woeWz8LcWd ZQZsBSK2dActXRnhy1Du PIXxX95tlBAog2A5WJVe tCwnmAPwRmYcnEQ2jD6o XCxyzpmwf6xaolle Bxlrk0zbgk34gI52F11j HWpyECTyBBA0HFYtTBNz jXxbmq8phC4kZq8+IDxj q1qnb5migYz8WgUw YHUlesMiaJlwBBM4u0Jm Fh40J4ZmvRzvr0ZlJlu0 hz84dSQix2O8vDW3AIrb YUCszB6aKOfrFdS5 ZWHeMoIhtE56vRLfGYlz Cy9kyFlagHjwKM4uFVGb cqgmCXKhuJ3rUCIygYLp kInmWD3vLESzbdub a413HbBcARV7CGVohJIc X2ImnA2iCoWbPCJkWYSm Q2EveZUiXNitD593LOpp RzL2ZYXqwmWjO4Je QCMvjXfdIzI4v4F9Ej7E e3GagtjwERR5KPpoKDY6 KnSjWvSkMcE0X0QbKnu4 CTUurKylUO5hQ5Sn FOQbnlbzzefumHP1EMYa DTXuhB79lSVgTMkzUh6c t4I8l844ZPVrDKPtaP74 Di4duCnqKPGiqICY cU8tyygiv2obhznnOgFv SDAvDFa4LKh4ZEFeoGcm AhLwJUJ4RpD1RGO6fKNs pY9dcVdtpoozoH1r Oyc+E45duP4yQVT9GZJ7 ducjZLEymdBdNY23NS09 Z3ZcXatwnTBddBI+PGRp yiZknAxwVL1oLgId i1mnz7OsGQkhL0KbBBQi CQwpOvu9DWMlLBS1zJU7 dT0mKZZmWOpaq8X5iFL0 U6IyqpYwxz7tj2em QGGiOQomI54vbTLxw6E1 TKMqaWW3CNWnxVbbEsFo mF61Ddl+GSRhdPbyl2Fv Ifttg6ssn9cifHc2 IjMwJSIgdmFsaWduPSJ0 s8FfNl96T77xYHajFQDb RWCiVEYsWGVoiYbusp1g aO6eTa8+PGNvbCB3 nUV6eH3cQVItZrV2SFvx J944AvXhsETmSocqp0ms t5vkmAw8HaQtAUHjznPs sCgaQKI2u0MnGx76 J46iTMhjGEOhGLTrWRVz QJVwxVbfqh4hlI5yEd1+ GU2rp9hodn44kW74nPS+ BWRvUNT6eRoqKHae YWMjhU6eYBbyVmU4VNXp IhZtdF83oLOrNWmiIq7u gZljgFdoEZ2kHONohngo e166ZmPjf0ofODLf jKCrMVprJCZ5U71bz5H0 RVPuWDPiYQM5rDA8pB2h bGlnbjogbGVmdDsgdmVy oEmzRZjpBFgzY601 IHRvcDsnPlBhdGllbnQg NlSdBCk8Y7PnXko7JCAn iXmaXX2xeRVaJXqmEk6s uGqfdObkTH1uQTFt nkxvl402YsZfy0vkNLUq pHYqKReyLCL3G02dx0B0 IVPbUETjQES9pBG2qQ4g bGlnbjogbGVmdDsg coZtrOtnNTrcEXrxX532 IHRvcDsnPkJpcnRoIERh wDU7NM77NA51qZGyo1F0 bQN0O9NmHIJcmydb tkifvPW4VNQkSPCtxU04 Hy4esOvqJi3fDMXnUHH1 QIQrdMFsI5YynA8iSxJu YLYdSRPdO6JjgYDl CNhzJ162WNqoUuP1NGJd caHdV1LcAJUjkBpnGoP6 s2G2Lw9ZE1T8QS25GF14 yUIed5T6cAM2J1Ow IURqcvuvuiiptWM4GPOr DINmcX87Ox3ciSopOl4w AQCrDQR8JFYogSOcW8Rd rJ1mMlThTGRrZZKl B2JzuVBxKUzeW813WZmf FvO8RAKphgAqW9DpQGNm bYlgEtX5i9R4Ss8AVYt1 HF04NL84rVLpe1N0 fUH5T4XnBPEoojrqcdsr nRC8VOBiURAdgV80Sd7p zQcbVu4qAFPcZLS9ACZq yCHkA7OwfT5jDxZx NOMmKYUrY8EvyAZrTEnr J602LDgdQnH8AIIjevWp E4StITUjcRjySjR9c2P6 Re4TIZKeUY75XKW2 lYV9UI94EX48G3WcLhjj dGFibGU+PHRhYmxlIHdp ZHRoPScxMDAlJyBzdHls FU7tOe3vEZJlXGFj jPknoXYzOyXdd8ypBGOa DNbtYL1aiUloR8ZhcMY2 ZKLfk0f1Iq64I67cU5Om dXA+XLSciSG4yGL2 pH0uNyIjFlP2USjcZ723 GfBdoABwEgzxk4vfw2bo jDb8KvC4OAHdjpSvaPln IAN6m0YkKp06O08s IHdpZHRoPSIxNSUiIHZh lZzlmt1leX5hZf0+PGNv kWQ2tLS4hC4rSsMuDfN4 LMwqA553JxUpcAMt Enmhk0rio5hykVd5HeLd SPTwpwEujYvdRHH6z4Ib No21S9YfcKnxa0IgAgv7 bg90xJZld6F7sFO6 S6XbIQQedzwbyIRaaDqz AQ4aACVwdnjpPRWnmF1n RKHmX9a3GbGtLpZ7LAdw V8BwlpN1IQXraNBa JLtjXBP6K27fb4R8ALRa DCRmOWN8eWL3zX8jzFhb bjogbGVmdDsgdmVydGlj RNavSOqaX997XDIs pUsxOSYycV2kGZMlsDBh uZojXV6rDWRudtqlAi3F INJQCEZNBIIXPBPOJF07 OP59dCEzh0Y1wVO0 X0QuQUFozioubacydLB3 TDVzHUFyvL68nTZlBUad Mn7gy2R6m086AHLtVCCw zG53Kx4imQjvFLTe nWEXwE4vvzqnj5pzxysg AzNfVITbIOb6TDc6HOXg cIuzXgRzWZY5FqA8QPI9 uQWyjV4ceDbhmelc aQ8dFww+MDkvMTEvMTk2 OTwvdGQ+BJQbUAU6gUwr RRfkGNKtrI6mVAYfW4o9 HkVtKvV3ZAonB6Lg IVVftkhtAs47fY5vHeLr PkT2BOoaH5KrxpE1KIYa wHEqYMrmSKL1H83zb4K4 DSNbGYKbDPF9iVW5 wA1ewNgelgfsxLVrjZtm cuCxbResBNmjWUlmQ097 IHRvcDsnPjUyIFllYXJz XB52FC45wPEsr3S7 nCD7I9BkAAXhxaydssdn uWO5NLOlEYAysB61qNCs UXfhZp7pn9N9r857USSb SYFlcR10Yn6whRdb TVVqdVTAbX7usiikg1ib cmfoZeHiUZNyKPa9FRx8 ZIOnwOcqYeGoNTH1WbA6 ZRV4hUTmfW6jmQfv bvogpD9nJlk+RmVtYWxl CJ69OQ93oLFsn1F7hMI1 Z4QiRJQyjzvmtrrhgGJ5 FMDjSBUsoY87aWFm XEdoVr4rg1A4y307ANYe ENVnhG98Qp1ejXoaGFHd jRGWdM5tzeqie3zsbxxz ZvKeLHPpDOb8EBj1 EVLbvCypQpZpUUU5RtG8 SMR7yMMkvH8zlYsdzoms mM2xBdw+E4F2lYR3dFFi dDwvdGQ+LY09qd18 V2EvPsraJbd7UKKvLOF7 tTS6xV3pNWJwTMami6M3 eIT2X4RpcvAasr0fv6ms AMJmZTdoU89dcWVb b2E7YIHykKF6ZQFnbIsl JpNraK25Fsp+PGNvbGdy x0QtYsfgd3kht9zaqWx6 IjMwJSIgdmFsaWdu QAN8l5JvDh87V90fKKki ZHRoPSIzMCUiIHZhbGln dh3ivR5lJp8+PGNvbCB3 yYN0gI2wAzIaDwD0 VFvvQ853SwOijKBaHbuv o1lzi1natEd8KqUeKZWz ceZsoMxvSZL4z3WvEe21 W7DkuUbjt6JvEtv3 ge53iJLos3O9kIR8S9Oe UDNgjlwolGOmhDeiYK4v WMTmzbeaGGLjaY9uUYEe U9c1OiCoApR9TNda Q7NfqtB6ZGPsnQRqAZNz nIYQaB4yidfgp0fnnrlw OgDwYVJpZFn2UNv0RXDv zOjsBeToNLX7TcK4 ALI1fGVxxH1plHlsgvuu jO3zVoi+JIz1t7faeTJl JH0sqMF6CR29HE76jVYz e5H8oXV1T3HkUTIt jlixrqkzcDW4ZMLqOURu hT14Lq2epDgcXa7cBLYt VON8SWCxsAXwV3VgrW2v IvUpBTEbZUTcX8Ap wVGlHEqzV766PGkcQgL9 PPMndwCiM3YhTEFqhCoq KbZ3q3S2Mw3EBG45VI38 PW37wENyu9R0bAH0 O7GzDLVmnudkrwyvuIT7 PZSuSVGpbR57Sb6qoVhf Gq4mCQJoCOH1BLBueYVq L9JgbB6wTbOxRPRt MOUyC0HhoOCfSQfoA015 UPurHdW5JJZzqvHjX4Tz ZFUahFjfObM7f0S1Ak1N Ap29QW76SY77fQWi z5A2sFM8B7LsBJWbcfzf zqlqvPE0RHHjKBQahO76 Qr6plDfkXd1nVPBhRNR8 XXUbeQXsJ7NooK2m BkFuQZPlEIAjQ0EptRJt FTvsH309XYsfZmT9GLRe iyMvT7NnUAWsxGreBvN3 j7J2Ut9ZERskvjj1 E2BePrpjoWN+QL34NSVl KJ21cUVtjIHap9yuvAj7 TnNaZZJoMCY3lUmfLGdd k7ShZQIjZ79dqIJt c2U6 (more content not included)... Normal [facility] Consent for Procedure/Surger yon 03-02-2022 Consent for Procedure/Surgery [id number]#[id number]:127 Normal [facility] Consent for Treatmenton 02-12 Consent for Treatment [id number] #[id number]:127 Normal [facility] Inpatient Patient Summaryon 03-02-2022 Inpatient Patient Summary [place] [address] Clinical Summary Person Information Name: CASEY ZAMORA Age: 51 Years : 1970 Sex: Female PCP: GRADY ARRIAGA DO Marital Status: Race: White Ethnicity: Non- or Language: Guamanian Visit Id: Visit Reason: RECURRENT UTI INCOMPLETE EMPTYING Speciality: Acuity: Enc Type: Outpatient Med Service: Surgery Arrival: 03/02/2022 10:27:40 Discharge: Dispo Type: Address: [address] [place] [address] [phone] Provider Notes: Diagnosis: Problems Active Recurrent UTI Hypertension Smoking Status: Functional Status: Sensory Deficits: History of Falls: Mobility Assistance Prior to Admission: ADLs: Current Level of Assistance for Self-Care/Mobility: Cognitive Status: Allergies No Known Medication Allergies Laboratory or Other Results This Visit (last charted value for your 03/02/2022 visit) No Laboratory or Other Results This Visit Measurements: Height: 169 cm Weight: Blood Pressure: Not Valued / Not Valued BMI: Procedures No Procedures Documented Immunizations No Immunizations Documented This Visit Final Med List: aspirin (aspirin 81 mg Oral EC Tab) By Mouth every day. cephalexin (Keflex 500 mg Cap) By Mouth every 12 hours. ciprofloxacin (Cipro 500 mg Tab) Take 1 tab day prior to procedure and 1 tab day of procedure after the procedure. Refills: 0. hydrochlorothiazide- losartan (hydrochlorothiazide -losartan 12.5 mg-50 mg Tab) By Mouth every day. metoprolol (Toprol XL 25 mg Tab-ER) By Mouth every day. pantoprazole (Protonix 40 mg tablet) every day. phentermine-topirama te (Qsymia 7.5 mg-46 mg oral capsule, extended release) By Mouth once a day (in the morning). Care Team Members: Attending Physician: Yinka OJEDA MD Consulting Physician: Referring Physician: Yinka OJEDA MD Follow up: With: Address: When: MABLE DESHPANDE [address] [place] [address] [phone] [facility] ([facility] Within 6 weeks Comments: Call for followup appointment. Please finish your antibiotics. Monitor the urinary pattern after the dilation today. Patient Education Information: EU - Cystoscopy with Urethral Dilation Discharge Instructions (Custom) [facility] IntraOperative Documentson 0 03-02-2022 IntraOperative Documents [id number] 5#[id number]:127 [facility] Main OR Intraoperative Recor don 03-02-2022 Main OR Intraoperative Record IntraOp Document Type FTURO Summary Primary Physician: Yinka OJEDA MD Finalized Date/Time: 03/02/22 11:16:49 Pt. Name: CASEY ZAMORA/Sex: 1970 Female Med Rec #: [id number] Physician: Yinka OJEDA MD Financial #: [id number] Pt. Type: O Room/Bed: / Admit/Disch: 03/02/22 10:27:40 - Institution: Case Times FTURO Entry 1 Patient Times In Room 03/02/22 11:08:00 Out Room 03/02/22 11:21:00 Procedure Times Start 03/02/22 11:09:00 Stop 03/02/22 11:16:00 Anesthesia Times Last Modified By: DOMINIC Parada RN, Ruthann 03/02/22 11:16:28 Case Attendance FTURO Entry 1 Entry 2 Entry 3 Case Attendee RUSTY MADERA, Yinka Parada RN, CNOR, Moy DRISCOLL, Porsha Lobo Role Performed Surgeon - Primary Shot Fireman - Primary Scrub - Primary Time In 03/02/22 11:08:00 03/02/22 11:08:00 03/02/22 11:08:00 Time Out 03/02/22 11:21:00 03/02/22 11:21:00 03/02/22 11:21:00 Procedure CYSTOSCOPY LOCAL(.) CYSTOSCOPY LOCAL(.) CYSTOSCOPY LOCAL(.) Comments Last Modified By: Tal FLORENTINO, NIKKIOR, Tal FLORENTINO, NIKKIOR, Tal FLORENTINO, DOMINIC, Lashell 03/02/22 Lashell 03/02/22 Lashell 03/02/22 11:16:29 11:16:45 11:16:29 Surgical Procedures FTURO Entry 1 Procedure Description Procedure CYSTOSCOPY LOCAL Modifiers . Surgeon Description cysto with UD Primary Procedure Yes Primary Surgeon Yinka OJEDA MD 03/02/22 11:09:00 Stop 03/02/22 11:16:00 Anesthesia Type Local Surgical Service Urology Wound Class 2 - Clean-Contaminated Last Modified By: DOMINIC Parada RN, Ruthann 03/02/22 11:16:30 General Case Data FTURO Pre-Care Text: Classifies surgical wound, implements aseptic technique, initiates traffic control Entry 1 Case Information OR URO 1 FT Case Level None Wound Class 2 - Clean-Contaminated Specialty Urology Preop Diagnosis RECURRENT UTI Postop Same As Preop No INCOMPLETE EMPTYING Postop Diagnosis urethral stricture Outcomes Met? Yes Last Modified By: DOMINIC Parada RN, Ruthann 03/02/22 11:16:05 Post-Care Text: The patient is free from signs and symptoms of infection EU IntraOp - FTURO Pre-Care Text: Implements protective measures prior to operative or invasive procedure, confirms identity before the operative or invasive procedure, verifies operative procedure, surgical site, and laterality Entry 1 EU Perioperative Protocols Procedure(s) CYSTOSCOPY LOCAL(.) Patient Identity Birthday, ID Band Verified (select at Check, Patient least 2): Participation Consents / H and P HandP, Surgery/Procedure Operative Site N/A Verified Consent Marking Verified Surgical Site Yes Laterality Verified n/a Verified Procedure Verified Yes Correct Patient Yes Position Verified Availability Equipment, Medication Time Out Yinka OJEDA MD, Verified (If Participants DOMINIC Parada RN, Applicable) Moy Lobo CST, Kimberly A Time Out Complete 03/02/22 11:09:00 Allergies Reviewed? Yes Allergies Reviewed Self/Patient With Body Position Low Lithotomy Prep Area perineal area Prep Agents Betadine Solution Skin. Condition Unable to Visualize Additional None Specimens Collected Vitals - EU Blood Pressure 144/100 Pulse 68 bpm Respirations SPO2 EBL 0 IandO - EU Total Intake 0 mL Total Output 0 mL Outcomes Met? Yes Last Modified By: DOMINIC Parada RN, Ruthann 03/02/22 11:15:11 Post-Care Text: The patient is free from signs and symptoms of injury caused by extraneous objects Sign Out FTURO Entry 1 Before Patient Leaves OR Nurse verbally Yes Nurse verbally n/a confirms with the confirms with the team the name of team that the procedure(s) instrument, sponge, recorded and needle counts are correct (or N/A) Nurse verbally n/a Nurse verbally n/a confirms with the confirms with the team how the team whether there specimen is labeled are any equipment (including patient problems to be name), if applicable addressed Sign Out Complete 03/02/22 11:19:00 Last Modified By: DOMINIC Parada RN, Ruthann 03/02/22 11:16:19 Case Comments Finalized By: DOMINIC Parada RN, Ruthann Document Signatures Signed By: DOMINIC Parada RN, Ruthann 03/02/22 11:16 Normal [facility] Main OR Preoperative Recordo n 03-02-2022 Main OR Preoperative Record Holding Area Document Type FTURO Summary Primary Physician: Yinka OJEDA MD Finalized Date/Time: 03/02/22 11:11:38 Pt. Name: CASEY ZAMORA./Sex: 1970 Female Med Rec #: [id number] Physician: Yinka OJEDA MD Financial #: [id number] Pt. Type: O Room/Bed: / Admit/Disch: 03/02/22 10:27:40 - Institution: Case Times Holding FTURO Pre-Care Text: Verifies consent for planned procedure, identifies individual values and wishes concerning care, includes family members in perioperative teaching Secures patient's records' belongings, and valuables, maintains patient's dignity and privacy, and maintains patient confidentiality Entry 1 In Holding 03/02/22 10:47:00 Outcomes Met? Yes Last Modified By: Issac Chaney LPN 03/02/22 10:47:47 Post-Care Text: The patient participates in decisions affecting his or her perioperative plan of care The patient's right to privacy is maintained Surgery Checklist FTURO Entry 1 Patient Birthday, Patient Procedure History and Physical, Identification: Participation Verification: Surgical Consent, With Patient NPO after Midnight: n/a Personal Items: Dentures Complaints of Pain: No Skin Integrity Unable to Visualize Vitals - EU Blood Pressure 144/100 Pulse 68 bpm Respirations 16 br/min SPO2 RN Reviewed Yes Last Modified By: DOMINIC Parada RN, Ruthann 03/02/22 11:11:36 General Comments: Temp 35.7 Finalized By: DOMINIC Parada RN, Ruthann Document Signatures Signed By: Issac Chaney LPN 03/02/22 10:55 DOMINIC Parada RN, Ruthann 03/02/22 11:11 Normal [facility] Operative Reporton Operative Report Patient: CASEY ZAMORA Age: 51 years Sex: Female : 1970 Associated Diagnoses: None Author: Yinka OJEDA MD Procedure Operative Information Details: Date/ Time: 03/02/2022 11:17:00. Pre-Op Dx: Hx of UTI's - Z87.440, Urethral Stricture - Other Unspecified - N35.9. Post-Op Dx: Same. Anesthesia Type: Local. Procedure: Local Cystoscopy with Urethral Dilation. Complications: None. Risks/Benefits/Infor med Consent: Surgical risks, benefits, details of the procedure have been explained to the patient, Full informed consent has been obtained. Intraoperative Information Prepped: Patient is brought back to the endoscopy suite, Patient is placed in modified dorso/lithotomy position, Patient prepped in the usual fashion with Betadine solution, 2% Xylocaine Jelly is placed per Urethra, After waiting several minutes the Cystoscope is introduced. The Urethra is: Tight, Tigth at 18 Fr. . The Bladder is: Normal, Trabeculated Mild (1), No tumor, no stones, old scar posteriorly. . The ureteral orifices: Show efflux of clear urine. The Urethra was dilated to: 30 Belarusian w/ sounds. Devices Implanted: None. Removal: Cystoscope is removed, The patient tolerated it well. Postoperative Information Discharge: Patient is discharged home with antibiotic coverage, Follow up arranged, F/U MARIANO Monge, in about six weeks. Monitor urinary flow pattern. Hopefully UTI frequency will decrease. Normal [facility] Comment on above: Result Comment: Elec tronically Signed By: Yinka OJEDA MD\.br\Date and Time Signed: 03/02/22 11:19 EDT Outpatient Surgery Discharge Instructionon 03-02-2022 Outpatient Surgery Discharge Instruction [address] [address] Patient Discharge Instructions PERSON INFORMATION Name: CASEY ZAMORA Date of : 1970 Current Date: 03/02/2022 11:17:46 PHYSICIANS Admitting Physician: Yinka OJEDA MD Comment: Discharge Diagnosis: CASEY ZAMORA has been given the following list of follow-up instructions, prescriptions, and patient education materials: IF UNABLE TO CONTACT YOUR PHYSICIAN AND YOU FEEL IT IS AN EMERGENCY, GO TO THE NEAREST EMERGENCY ROOM OR CALL 911 Follow up: With: Address: When: MABLE DESHPANDE [address] [place] [address] [address] [place], [place] [id number] [facility] (1) Within 6 weeks Comments: Call for followup appointment. Please finish your antibiotics. Monitor the urinary pattern after the dilation today. Comment: PATIENT EDUCATION INFORMATION Instructions: Cystoscopy with Urethral Dilation ? Voiding after the procedure: there may be some pain, urethral bleeding, burning, urgency, frequency and blood tinged urine following the procedure. These symptoms usually resolve within 2-5 days. Drink the amount of fluid it takes to keep the urine pink to yellow or clear in color. Drinking enough water and fluids will help to ease any discomfort after your procedure. ? If you are having problems that seem out of the ordinary, please call. ? If unable to contact your physician and you feel it is an emergency, go to the nearest emergency room or call 911 ? Diet ? you may resume your normal diet. ? Activity ? you may resume your normal activities ? Call if you have a fever over 100 degrees I, CASEY ZAMORA, have received the attached patient education materials/instructio ns and have verbalized understanding: May we do a follow up call? Yes No I was present when discharge instructions were given Patient Signature Date Clinican/Nurse Signature Date You may receive a survey from Lukasz Lynn asking you to rate your care experience. Your feedback is important and will help us understand what we do well and how we can improve the quality of care we provide to you, your loved ones and our community. It?s an honor to serve you. Thank you for choosing [facility] Pre-Certification Formon Pre-Certification Form [id number]#1.00CD:127 [facility] Formson 02-22-2022 Forms [id number] #1.00CD:127 [facility] Urology Office/Clinic Noteon 02-21-2022 Urology Office/Clinic Note Chief Complaint Pt is here for recurrent UTI HPI Staff Casey is a 51 y.o. female new patient here for recurrent UTI. Patient bladder is torn from previous hysterectomy. Before prohylatic Keflex after intercourse pt states she always had constant pressure. Dysuria: denies Incomplete bladder emptying: denies Hematuria: denies Frequency: yes w/ fluid intake Urgency: denies Nocturia: 2x a night Stream: slow, weak stream Leaking: denies Post void dripping: denies Wearing pads/ Depends: denies Urge incontinence: denies Stress incontinence: denies Incontinence without Sensory Awareness: denies Abdominal pain: denies Flank pain: denies Sexual complaints: _ History of Present Illness staff HPI reviewed and agree. Review of Systems PHQ Score Initial Depression Screen Score: 0 no fever, chills, malaise, myalgia. no rash/lesions. no chest pain, palpitations, or SOB. no abdominal pain, nausea, vomiting. no unilateral calf swelling, redness, pain Physical Exam Vitals & Measurements HR: 84(Peripheral) BP: 123/84 HT: 169.0 cm HT: 169 cm WT: 95.0 kg WT: 95 kg BMI: 33.26 General: nontoxic, NAD Mouth: moist mucosa Lungs: normal respiratory effort Cardio: regular rate, good distal perfusion Abdomen: nondistended, no suprapubic distention or tenderness, no CVA tenderness Neurologic: Grossly normal Skin: No rashes or suspicious lesions Assessment/Plan 1. Recurrent UTI (N39.0: Urinary tract infection, site not specified) New patient referred d/t recurrent UTIs. This has been for the past few months. Prior to this pt was only sexually active about once per week, if that. Recent increased libido - now averaging sexual activity 5x per week or more. Increased frequency of UTIs directly correlates to sexual activity increase. PHOTOENGRAVING PROOFER APPRENTICE (Juan) already started her on post-coital Keflex and that seems to be helping. He is also evaluating her for etiologies of such a rapid/significant increase in libido. Pt is currently utilizing topical estrogen cream through [facility] twice weekly and also has hormone pellet implants since Sep. Today we discussed the following methods to decrease frequency of UTIs: 1) increase fluids 2) double voids (encouraged to lean forward, apply gentle pressure on the bladder, and standing then sitting again) 3) I discussed that there is evidence that herbal supplements may help - cranberry, probiotics, and d-mannose. 4) proper hygiene habits (wipe front to back every time, avoid baths & hot tubs, avoid any scented PHOTOENGRAVING PROOFER APPRENTICE products, urinate after sexual activity, etc) 5) upper tract imaging to rule out stones (KUB ordered) 6) cysto to evaluate for any anatomic abnormalities which could be contributing to UTIs (bladder tumor, urethral stricture, vaginal atrophy to name a few) Will schedule Cysto with UD. The procedure risks, benefits, details, and treatment alternatives have been discussed with the patient. These include bleeding, infection, recurrent scar in over 50%, need for repeat dilation or other procedures, no symptom relief with dilation, among others. Full informed consent has been obtained. Will order Local anesthesia. 2. Incomplete bladder emptying (R33.9: Retention of urine, unspecified) Patient shares she feels as though she is not fully emptying out, and is straining with a weak stream. PVR 77ml today. Discussed possible UD during cysto. Follow-up With When Contact Information MABLE DESHPANDE PA-C, URL [address] [place] [address] Additional Instructions: Will schedule Cysto Patient Education Urinary Tract Infection, Adult, [id number] Grecia Morales, personally scribed for Mable Deshpande PA-C on 02/21/2022 15:09:30. . Documentation recorded by the messi Acuña accurately reflects the services(s) I performed and decisions made by me. Authenticated by Mable Deshpande PA-C on 02/21/2022 15:18:17. Problem List/Past Medical History Ongoing Hypertension Recurrent UTI Historical No qualifying data Procedure/Surgical History Appendectomy, Hysterectomy, Tubal ligation. Medications aspirin 81 mg Oral EC Tab, Oral, Daily hydrochlorothiazide- losartan 12.5 mg-50 mg Tab, Oral, Daily Keflex 500 mg Cap, Oral, q12hr Protonix 40 mg tablet, Daily Qsymia 7.5 mg-46 mg oral capsule, extended release, Oral, qAM Toprol XL 25 mg Tab-ER, Oral, Daily Allergies No Known Medication Allergies Social History Tobacco Never (less than 100 in lifetime) Tobacco Use:. Never Smokeless Tobacco Use:., 02/21/2022 Family History Diabetes clinic: Mother. High cholesterol: Father. Hypertension: Mother. Stroke: Mother. Lab Results Ambulatory Point of Care Results Bilirubin Urine Dipstick: Negative (02/21/22 14:37:00) Blood Urine Dipstick: Trace-intact (02/21/22 14:37:00) Glucose Urine Dipstick: Negative (02/21/22 14:37:00) Ketones Urine Dipstick: Trace - 5 mg/dl (02/21/22 14:37:00) L (more content not included)... [facility] Comment on above: Result Comment: Elec tronically Signed By: MABLE EDSHPANDE PA-C\.br\Date and Time Signed: 02/21/22 15:18 EDT\.br\Electronically Co-Signed By: Grecia Acuña\.br\Date and Time Co-Signed: 02/21/22 15:10 EDT Patient Educationon 02-21-20 Patient Education Obstetrics and Gynecology Urinary Tract Infection, Adult A urinary tract infection (UTI) is an infection of any part of the urinary tract. The urinary tract includes: ? The kidneys. ? The ureters. ? The bladder. ? The urethra. These organs make, store, and get rid of pee (urine) in the body. What are the causes? This is caused by germs (bacteria) in your genital area. These germs grow and cause swelling (inflammation) of your urinary tract. What increases the risk? You are more likely to develop this condition if: ? You have a small, thin tube (catheter) to drain pee. ? You cannot control when you pee or poop (incontinence). ? You are female, and: ? You use these methods to prevent : ? A medicine that kills sperm (spermicide). ? A device that blocks sperm (diaphragm). ? You have low levels of a female hormone (estrogen). ? You are . ? You have genes that add to your risk. ? You are sexually active. ? You take antibiotic medicines. ? You have trouble peeing because of: ? A prostate that is bigger than normal, if you are male. ? A blockage in the part of your body that drains pee from the bladder (urethra). ? A kidney stone. ? A nerve condition that affects your bladder (neurogenic bladder). ? Not getting enough to drink. ? Not peeing often enough. ? You have other conditions, such as: ? Diabetes. ? A weak disease-fighting system (immune system). ? Sickle cell disease. ? Gout. ? Injury of the spine. What are the signs or symptoms? Symptoms of this condition include: ? Needing to pee right away (urgently). ? Peeing often. ? Peeing small amounts often. ? Pain or burning when peeing. ? Blood in the pee. ? Pee that smells bad or not like normal. ? Trouble peeing. ? Pee that is cloudy. ? Fluid coming from the vagina, if you are female. ? Pain in the belly or lower back. Other symptoms include: ? Throwing up (vomiting). ? No urge to eat. ? Feeling mixed up (confused). ? Being tired and grouchy (irritable). ? A fever. ? Watery poop (diarrhea). How is this treated? This condition may be treated with: ? Antibiotic medicine. ? Other medicines. ? Drinking enough water. Follow these instructions at home: Medicines ? Take xgqo-aun-ltffypd and prescription medicines only as told by your doctor. ? If you were prescribed an antibiotic medicine, take it as told by your doctor. Do not stop taking it even if you start to feel better. General instructions ? Make sure you: ? Pee until your bladder is empty. ? Do not hold pee for a long time. ? Empty your bladder after sex. ? Wipe from front to back after pooping if you are a female. Use each tissue one time when you wipe. ? Drink enough fluid to keep your pee pale yellow. ? Keep all follow-up visits as told by your doctor. This is important. Contact a doctor if: ? You do not get better after 1?2 days. ? Your symptoms go away and then come back. Get help right away if: ? You have very bad back pain. ? You have very bad pain in your lower belly. ? You have a fever. ? You are sick to your stomach (nauseous). ? You are throwing up. Summary ? A urinary tract infection (UTI) is an infection of any part of the urinary tract. ? This condition is caused by germs in your genital area. ? There are many risk factors for a UTI. These include having a small, thin tube to drain pee and not being able to control when you pee or poop. ? Treatment includes antibiotic medicines for germs. ? Drink enough fluid to keep your pee pale yellow. This information is not intended to replace advice given to you by your health care provider. Make sure you discuss any questions you have with your health care provider. Document Released: 03/19/2009 Document Revised: 09/18/2019 Document Reviewed: 04/10/2019 [email or web address] Patient Education ? 2019 [employer]. [facility] Urinalysis - AUTOMATEDon Appearance (U) clear [employer] Other Bilirubin Ql (U) Negative [employer] Other Color (U) orange yellow [employer] Other Glucose Ql (U) 100 [employer] Other Hemoglobin Ql (U) small [employer] Other Ketones Ql (U) trace [employer] Other Nitrite Ql (U) Positive [employer] Other pH (U) 6.5 [pH] [employer] Other Protein Ql (U) trace [employer] Other Specific gravity (U) [Rel density] 1.025 [employer] Other Urobilinogen (U) [Mass/Vol] 1.0 mg/dL [employer] [facility] [employer] Other Urinalysis - AUTOMATED No rth [facility] [employer] Other Urine Cultureon 01-01-2022 Bacteria identified Cx Nom (U) Reason for Exam Dysuria Urine Reason for Exam: Dysuria : Urine No Growth 2 Days PERFORMED BY: [place] [id number] PATHOLOGIST SENIOR DATA DEVELOPER DENIS MULLER M.D. Normal [facility] Comment on above: Performed By: #### C UU #### [address] Office Visit (Cardiology)on 11-09-2021 Follow-up visit Diagnoses/Problems Assessed NSVT (nonsustained ventricular tachycardia) (427.1) (I47.2) Palpitations (785.1) (R00.2) Abnormal electrocardiogram (794.31) (R94.31) Hypertension (401.9) (I10) Never a smoker Class 2 obesity with body mass index (BMI) of 36.0 to 36.9 in adult (278.00,V85.36) (E66.9,Z68.36) White coat syndrome with hypertension (401.9) (I10) Orders Class 2 obesity with body mass index (BMI) of 36.0 to 36.9 in adult Healthy Weight Tips; Status:Complete - Retrospective Authorization; Done: 09Nov2021 SocHx: Never a smoker Tobacco Use Screening; Status:Complete; Done: 09Nov2021 Patient Instructions By signing my name below, I, Ramesh Houston LPNibfeng, attest that this documentation has been prepared under the direction and in the presence of Dr. Joao Colmenares MD. All medical record entries made by the Scribe were at my direction and personally dictated by me. I have reviewed the chart and agree that the record accurately reflects my personal performance of the history, physical exam, discussion and plan. Please bring all medicines, vitamins, and herbal supplements with you when you come to the office. Prescriptions will not be filled unless you are compliant with your follow up appointments or have a follow up appointment scheduled as per instruction of your physician. Refills should be requested at the time of your visit. Patient to monitor BP at home Follow up in 9 months Chief Complaint CASEY ZAMORA is being seen for a 4 month follow-up of. History of Present Illness Patient is here for follow-up for recent evaluation of documentation of an episode of 7 beat nonsustained ventricular tachycardia, palpitation and borderline abnormal echocardiogram. Since last time I saw her she denies any cardiac complaint of chest pain, palpitation, lightheadedness, dizziness or syncope. She remains fairly active. Her recent stress test showed no evidence of myocardial ischemia and normal LV systolic function. Patient blood pressure noted to be slightly elevated but she described classic whitecoat hypertension. Assessment 1. Complaint of palpitation palpitation she had documentation of 1 episode of 7 beat nonsustained ventricular tachycardia. She denies any recurrence 2. One episode of 7 beat nonsustained ventricular tachycardia in background most normal LV systolic function and no clear documentation of ischemic heart disease by history recent stress test was negative 3. Recent echocardiogram showed questionable regional motion abnormality of the anterior wall and stress test showed no ischemia and normal LV systolic function 4. Symptoms of exertional shortness of breath obesity 5. Hypertension controlled controlled with component of whitecoat hypertension 6. Mild hypokalemia due to diuretic therapy corrected last potassium was 4 Plan 1. Due to patient with the patient her diagnostic testing. I reassured her based on negative ischemia and normal LV systolic function and no recurrence of her palpitation 2. I recommended to her to continue to monitor her blood pressure at home and notify me if it is elevated 3. I recent lab with her 4. I suggested in the present medical regimen 5. I advised the patient to notify with changes of cardiac status or symptoms 6. We will see her in 9 month or earlier if the need arise Surgical History Problems History of Appendectomy History of Bladder surgery History of Complete colonoscopy History of Hysterectomy History of Tubal ligation Current Meds Medication NameInstruction Aspirin EC 81 MG Oral Tablet Delayed ReleaseTAKE 1 TABLET DAILY. buPROPion HCl ER (SR) 150 MG Oral Tablet Extended Release 12 HourTake 1 tablet by mouth daily Losartan Potassium-HCTZ 50-12.5 MG Oral TabletTAKE 1 TABLET BY MOUTH EVERY DAY Metoprolol Succinate ER 25 MG Oral Tablet Extended Release 24 HourTAKE 1 TABLET DAILY. Potassium Chloride ER 10 MEQ Oral Tablet Extended ReleaseTAKE 1 TABLET DAILY. Rosuvastatin Calcium 10 MG Oral TabletTAKE 1 TABLET BY MOUTH EVERY EVENING Allergies NoKnown No Known Allergies Recorded By: Luisa Persaud; 10/08/2021 9:58:45 AM Social History Problems Never a smoker No alcohol use No caffeine use No illicit drug use Review of Systems Constitutional: not feeling tired. Cardiovascular: no intermittent leg claudication and as noted in HPI. Respiratory: no cough and no shortness of breath. Gastrointestinal: no change in bowel habits and no blood in stools. Integumentary: no skin rashes. Neurological: no seizures and no frequent falls. All other systems have been reviewed and are negative for complaint. Vitals Vital Signs Recorded: 09Nov2021 02:37PMRecorded: 09Nov2021 02:32PM Ptvekxxp196, LUE, Uwgcrgc975, LUE, Sitting Enbtqzfvh82, LUE, Trtquzl05, LUE, Sitting Heart Rate69, L Brachial Artery Height5 ft 7 in Bamwda212 lb BMI Sdlyzhdwzw14.96 kg/m2 BSA Calculated2.17 Tobacco Useb) No Fall Screeningc) Not medical (more content not included)... Normal [facility] Tobacco Screening.on 022 Fall risk assessment c) Not medically indicated [facility] Work Phone: Tobacco use status [facility] b) No [facility] 250 DO Work Phone: COVID Quick Testingon 2020 Result Negative [facility] [employer] Other [facility] CARDIAC STRESS/REST INJE CTIONon 04-05-2021 [facility] CARDIAC STRESS/REST INJECTION Patient Name: CASEY ZAMORA STUDY: MYOCARDIAL PERFUSION STRESS TEST WITH EXERCISE Performing facility: [facility], [address] [place] [address], [address] [address] [facility] Provider: Joao Colmenares MD PCP: Dr. Beatrice Arriaga Supervising provider: Joao Colmenares MD INDICATION: Abnormal EKG; Palpitations NSVT HISTORY: Gender: F; Age: 50 y/o ; Height: 170.18 cm; Weight: 193.0098428 kg. HTN; Palpitations; SOB; Denies smoking. COMPARISON: No comparison. ACCESSION NUMBER(S): [id number]; [id number]; [id number] ORDERING CLINICIAN: JOAO COLMENARES TECHNIQUE: TWO DAY protocol. Stress injection: Date:04-05-21, 34.0 mCi of Myoview IV at peak exercise. Rest injection: Date: 04-06-21, 32.4 mCi of Myoview IV at rest. Imaging was performed by gated tomographic technique. STRESS TEST DATA: Resting heart rate was 65 BPM. Resting blood pressure was 130/84 mmHg. The patient exercised using a Jim exercise protocol. 6:31 minutes exercised. 87 % of MPHR achieved for age. 7.7 METS achieved. Maximum heart rate was 148 BPM. Maximum blood pressure was 150/74 mmHg. DTS 6. TEST TERMINATED DUE TO: Fatigue FINDINGS: STRESS TEST RESULTS: Resting electrocardiogram revealed normal sinus rhythm. The patient had none diagnostic ECG changes with maximal stress. The patient did not have chest pains/symptoms during the procedure. There was a normal recovery phase. There were no significant dysrhythmias. IMAGING RESULTS: Image quality was good. Rest and stress tomographic images were reviewed and revealed normal perfusion without evidence of ischemia, myocardial infarction, or left ventricular dilatation with stress. Overall left ventricular systolic function appeared to be normal without regional wall motion abnormalities. LV ejection fraction was 57 %. TID is 1.01 and is normal. There were no evidence of attenuation artifact. IMPRESSION: Normal exercise Myoview cardiac perfusion stress test. No evidence of ischemia or myocardial infarction by perfusion imaging. Normal left ventricular systolic function, ejection fraction 57%. No exercise provoked significant ischemic ECG changes or chest pain symptoms. No previous study available for comparison. Electronically signed by: JOAO COLMENARES MD [facility] Vital Signs Date Time Vital Sign Value Performing Clinician Facility 02-19-2023 16:30-0400 Body height 170.18 cm Grady Arriaga Other [employer] Other 02-19-2023 16:30-0400 Body mass index (BMI) [Ratio] 25.12 kg/m2 Grady [employer] Other [employer] Other 02-19-2023 16:30-0400 Body weight 72.76 kg Grady Ball Other [employer] Other 02-19-2023 16:30-0400 Diastolic blood pressure 87 mm[Hg] Grady Ball Other [employer] Other 02-19-2023 16:30-0400 Respiratory rate 12 /min Grady Ball Other [employer] Other 02-19-2023 16:30-0400 Systolic blood pressure 146 mm[Hg] Grady Ball Other [employer] Other 11-20-2022 11:50-0500 Body height 170.18 cm Clare Crawfordmond Other [employer] Other 11-20-2022 11:50-0500 Body mass index (BMI) [Ratio] 24.68 kg/m2 Clare Crawfordmond Other [employer] Other 11-20-2022 11:50-0500 Body temperature 98.2 [degF] Clare Crawfordmond Other [employer] Other 11-20-2022 11:50-0500 Body weight 71.49 kg Clare Crawfordmond Other [employer] Other 11-20-2022 11:50-0500 Respiratory rate 18 /min Clare Margoth Other [employer] Other 11-20-2022 11:50-0500 SaO2% (BldA) [Mass fraction] 97 % Clare Margoth Other [employer] Other 07-18-2022 13:41-0400 Body height 170.18 cm Grady Feng Ball Work Phone: [facility] 250 DO Work Phone: 07-18-2022 13:41-0400 Body mass index (BMI) [Ratio] 28.54 kg/m2 Grady E Ball Work Phone: [facility] 250 DO Work Phone: 07-18-2022 13:41-0400 Body surface area Derived from formula 1.94 m2 Grady E Ball Work Phone: [facility] 250 DO Work Phone: 07-18-2022 13:41-0400 Body weight 82.67 kg Grady E Ball Work Phone: [facility] 250 DO Work Phone: 07-18-2022 13:41-0400 Diastolic blood pressure 82 mm[Hg] Grady E Ball Work Phone: [facility] 250 DO Work Phone: 07-18-2022 13:41-0400 Heart rate 68 /min Grady E Ball Work Phone: [facility] 250 DO Work Phone: 07-18-2022 13:41-0400 Systolic blood pressure 130 mm[Hg] Grady E Ball Work Phone: [facility] 250 DO Work Phone: 02-21-2022 14:42-0400 Blood Pressure Location MABLEOBDULIA MACIASRY [facility] Isabel 02-21-2022 14:42-0400 Diastolic blood pressure 84 mm[Hg] MABLE DESHPANDE [facility] Anabel 02-21-2022 14:42-0400 Heart rate 84 /min MABLE DESHPANDE [facility] Isabel 02-21-2022 14:42-0400 Systolic blood pressure 123 mm[Hg] MABLE DESHPANDE [facility] Isabel 01-01-2022 15:45-0400 Body height 170.18 cm Clare Margoth Other [employer] Other 01-01-2022 15:45-0400 Body mass index (BMI) [Ratio] 34.45 kg/m2 Clare Margoth Other [employer] Other 01-01-2022 15:45-0400 Body temperature 97.8 [degF] Clare Margoth Other [employer] Other 01-01-2022 15:45-0400 Body weight 99.79 kg Clare Margoth Other [employer] Other 01-01-2022 15:45-0400 Diastolic blood pressure 86 mm[Hg] Clare Margoth Other [employer] Other 01-01-2022 15:45-0400 Respiratory rate 18 /min Clare Margoth Other [employer] Other 01-01-2022 15:45-0400 SaO2% (BldA) [Mass fraction] 100 % Clare Margoth Other [employer] Other 01-01-2022 15:45-0400 Systolic blood pressure 129 mm[Hg] Clarecindy Justin Other [employer] Other 11-09-2021 14:37-0500 Diastolic blood pressure 90 mm[Hg] Grady E Ball Work Phone: [facility] 250 DO Work Phone: 11-09-2021 14:37-0500 Systolic blood pressure 142 mm[Hg] Grady E Ball Work Phone: [facility] 250 DO Work Phone: 11-09-2021 14:32-0500 Body height 170.18 cm Grady E Ball Work Phone: [facility] 250 DO Work Phone: 11-09-2021 14:32-0500 Body mass index (BMI) [Ratio] 36.96 kg/m2 Grady E Ball Work Phone: [facility] 250 DO Work Phone: 11-09-2021 14:32-0500 Body surface area Derived from formula 2.17 m2 Grady E Ball Work Phone: [facility] 250 DO Work Phone: 11-09-2021 14:32-0500 Body weight 107.05 kg Grady E Ball Work Phone: [facility] [employer] 250 DO Work Phone: 11-09-2021 14:32-0500 Diastolic blood pressure 89 mm[Hg] Grady E Ball Work Phone: [facility] 250 DO Work Phone: 11-09-2021 14:32-0500 Heart rate 69 /min Grady E Ball Work Phone: [facility] 250 DO Work Phone: 11-09-2021 14:32-0500 Systolic blood pressure 146 mm[Hg] Grady E Ball Work Phone: [facility] 250 DO Work Phone: 08-03-2021 15:45-0400 Body height 170.18 cm Clare Justin Other [employer] Other 08-03-2021 15:45-0400 Body mass index (BMI) [Ratio] 37.59 kg/m2 Clare Justin Other [employer] Other 08-03-2021 15:45-0400 Body temperature 99.2 [degF] Clare Justin Other [employer] Other 08-03-2021 15:45-0400 Body weight 108.86 kg Clare Justin Other [employer] Other 08-03-2021 15:45-0400 Respiratory rate 18 /min Clare Justin Other [employer] Other 08-03-2021 15:45-0400 SaO2% (BldA) [Mass fraction] 97 % Clare Justin Other [employer] Other Encounters Encounter Date Encounter Type Care Provider Facility Start: 02-01-2024 End: 02-01-2024 ambulatory [facility] Work Phone: Start: 02-01-2024 End: 02-01-2024 Patient encounter procedure [facility] Work Phone: Start: 01-08-2024 Non-patient / Non-visit [facility] Work Phone: Start: 11-13-2023 End: 11-13-2023 ambulatory Grady Arriaga Other [employer] Other Start: 11-13-2023 Telephone encounter Grady MURO [facility] Start: 08-21-2023 End: 08-21-2023 ambulatory Grady Arriaga Other [employer] Other Start: 08-21-2023 Nursing evaluation o f patient and report Grady Arriaga [facility] Start: 07-11-2023 End: 07-11-2023 ambulatory Grady Arriaga Other [employer] Other Start: 07-11-2023 Telephone encounter Grady Bart [facility] Start: 05-28-2023 End: 05-28-2023 ambulatory Grady Arriaga Other [employer] Other Start: 05-28-2023 Office outpatient vi sit 15 minutes Grady Arriaga [facility] Start: 05-02-2023 End: 05-02-2023 ambulatory Grady Arriaga Other [employer] Other Start: 05-02-2023 Nursing evaluation o f patient and report Grady Arriaga [facility] Start: 02-19-2023 End: 02-19-2023 ambulatory Grady Arriaga Other [employer] Other Start: 02-19-2023 Office outpatient vi sit 15 minutes Grady Arriaga [facility] Start: 02-07-2023 End: 02-08-[address] GRADY ARRIAGA Facility:[facility]1 Start: 01-23-2023 End: 01-23-2023 ambulatory Grady Bart Other [employer] Other Start: 01-23-2023 Telephone encounter Grady Bart [facility] Start: 12-20-2022 End: 12-20-2022 ambulatory Grady Bart Other [employer] Other Start: 12-20-2022 Nursing evaluation o f patient and report Grady Arriaga [facility] Start: 12-05-2022 End: 12-06-[address] GRADY ARRIAGA Facility:[facility] Start: 11-30-2022 End: 02-17-[address] MADHURI TAYLOR . Facility:[facility] Start: 11-29-[address] GRADY ARRIAGA Facili ty:[facility]1 Start: 11-20-2022 End: 11-20-2022 ambulatory Clare Margoth Other [employer] Other Start: 11-20-2022 Office outpatient vi sit 15 minutes Clare Justin [facility] Start: 11-16-2022 (Televisit) [facility] Start: 11-16-2022 End: 11-16-2022 ambulatory Gela Ortiz Other [employer] Other Start: 10-25-2022 End: 10-26-[address] MADHURI TAYLOR . Facility:[facility] Start: 10-11-2022 End: 10-12-[address] MADHURI TAYLOR . Facility:[facility] Start: 10-11-2022 End: 10-12-[address] GRADY ARRIAGA Facility:[facility] Start: 09-30-2022 Encounter for genera l adult medical examination without abnormal findings DR GRADY ARRIAGA [facility] Start: 09-25-2022 End: 09-26-[address] GRADY ARRIAGA Facility:[facility] Start: 09-25-2022 End: 09-26-2022 Encounter for general adult medical examination without abnormal findings DR GRADY ARRIAGA Facility:[facility] Start: 09-01-2022 Adult health examination Guero Arriaga Other [facility] [employer] Other Start: 09-01-2022 Gynecological examination catie Arriaga Other [employer] Other Start: 07-18-2022 Office outpatient vi sit 15 minutes Grady Arriaga Work Phone: [facility] DO Work Phone: Start: 07-18-[address] Joao Colmenares Facility: Start: 07-15-2022 End: 07-15-2022 ambulatory KELLY CAMP . Facility:[facility] Start: 03-02-2022 End: 03-02-2022 Patient encounter procedure Yinka OJEDA [facility] Start: 02-21-2022 End: 02-21-2022 Patient encounter procedure MABLE DESHPANDE [facility] Start: 01-01-2022 End: 01-01-2022 ambulatory Clare Justin Other [facility] [employer] Other Start: 01-01-2022 Office outpatient vi sit 15 minutes Clare Justin [facility] Start: 11-09-2021 Office outpatient vi sit 25 minutes Grady Arriaga Work Phone: [facility] DO Work Phone: Start: 11-09-[address] Joao Colmenares Facility: Start: 08-03-2021 (URG) Urgent Care Visit Clare de los santos [facility] Procedures Date Procedure Procedure Detail Performing Clinician Appendectomy Grady E Bart Work Phone: Appendectomy MABLE DESHPANDE Depression screening Benjami n Ball Other Hysterectomy Grady E Ball Work Phone: Hysterectomy MABLE DESHPANDE Ligation of fallopian tube B enjamin E Ball Work Phone: Ligation of fallopian tube J ENNIFER CHARLEE Operation on bladder Benjami n E Ball Work Phone: Screening for malign ant neoplasm of breast Grady Ball Other Total colonoscopy Grady E Bart Work Phone: Plan of Treatment Date Care Activity Detail Author Start: 07-24-2023 FUV, Provider: Joao Colmenares, Status: Pen, Time: 2:00 PM FUV, Provider: Joao Colmenares, Status: Pen, Time: 2:00 PM [place] [address] DO Work Phone: Start: 07-18-2022 FUV, Provider: Joao Colmenares, Status: Pen, Time: 1:40 PM FUV, Provider: Joao Colmenares, Status: Pen, Time: 1:40 PM [place] [address] DO Work Phone: Immunizations Immunization Date Immunization Notes Care Provider Fa frances 01-27-2021 Pfizer-BioNTech COVI D-19 Vacc 30 MCG/0.3ML Intramuscular Suspension Grady Feng Bart Work Phone: [place] [address] DO Work Phone: 01-05-2021 Pfizer-BioNTech COVI D-19 Vacc 30 MCG/0.3ML Intramuscular Suspension Grady Arriaga Work Phone: [place] [address] DO Work Phone: 11-21-2016 influenza, intraderm al, quadrivalent, preservative free, injectable Grady Arriaga Work Phone: [place] [address] DO Work Phone: 11-21-2016 tetanus toxoid, redu evie diphtheria toxoid, and acellular pertussis vaccine, adsorbed Grady Arriaga Work Phone: [place] [address] DO Work Phone: 08-24-2009 novel influenza-H1N1 -09, preservative-free, injectable Grady Arriaga Work Phone: [place] [address] DO Work Phone: Payers Date Payer Category Payer Unknown [id number] 356 1969 Unknown [id number] 1969 Unknown [id number]. 593 1969 Unknown [id number]. 593 1969 Unknown [id number] [id number]. 593 1969 Unknown [id number]. 593 1969 Unknown [id number] [id number]. 593 1969 Unknown [id number] [id number]. 593 1969 Unknown [id number] [id number]. 593 1969 Unknown [id number] [id number]. 593 1969 Unknown [id number] [id number]. 593 1960 Medicaid [id number] 1959 Self-pay 1960 Unknown [id number] [place] [id number] Unknown [facility] Social History Date Type Detail Facility No alcohol use No alcohol use [employer] Other Start: 05-03-2018 End: 02-21-2022 Tobacco smoking status Never smoked tobacco (finding) [facility] Tobacco smoking status Never [facility] Anabel Sex Assigned At Female [employer] Other Start: 1970 Sex Assigned At Female F [facility] Clinical Notes 08-03-2021 to 08-21-2023 Note Date & Type Note Facility 08-21-2023 Evaluation note Encounter Date Diagnosis Assessment Notes Aug, Seasonal allergies (ICD-10 - J30.2) [employer] Other 08-14-2023 Evaluation note* Encounter Date Diagnosis Assessment Notes Treatment Notes Treatment Clinical Notes May, Acute bacterial conjunctivitis of left eye (ICD-10 - H10.32) Use artificial tears as much as possible. Use warm washcloth to remove crusting debris from lashes May, Dysfunction of left eustachian tube (ICD-10 - H69.92) Flonase and Claritin D. Valsalva to open ET [employer] Other 07-19-2023 Evaluation note* Encounter Date Diagnosis Assessment Notes Treatment Notes Treatment Clinical Notes Apr, Seasonal allergic rhinitis, unspecified trigger (ICD-10 - J30.2) [employer] Other 05-08-2023 Evaluation note* Encounter Date Diagnosis Assessment Notes Treatment Notes Treatment Clinical Notes February, Right foot drop (ICD-10 - M21.371) Continue stretching and resistance exercises. f/u Podiatry in month February, Primary hypertension (ICD-10 - I10) This patient is instructed to consume a healthy, low-fat, low-salt diet. They are also encouraged to continue exercise to achieve/maintain a normal BMI. Recheck BP once restarted home meds February, Mild episode of recurrent major depressive disorder (ICD-10 - F33.0) Healthy diet, exercise and keep active. Stressed consistent sleep routine February, Other Healthy diet, exercise and keep active [employer] Other 04-26-2023 NotePROCEDURE: XR FOOT RT MIN 3 VIEWS DATE: 02/07/2023 10:24 AM CDT COMPARISONS: None CLINICAL INDICATION: Requisition states: Foot pain. Numbness right foot. FINDINGS: There is no evidence of fractures or other acute osseous abnormalities. There is a small spur off the posterior inferior os calcis. IMPRESSION: Right foot radiographs show no evidence of significant abnormalities. Electronically authenticated by: LAM DORSEY Date: 2023-02-07 12:23[facility]04-26-2023 NotePROCEDURE: XR ANKLE RT MIN 3 VIEWS DATE: 02/07/2023 10:24 AM CDT COMPARISONS: None CLINICAL INDICATION: Right ankle pain. FINDINGS: There is no evidence of fractures or other osseous abnormalities. The ankle mortise is intact. IMPRESSION: Right ankle radiographs show no evidence of significant abnormalities. Electronically authenticated by: LAM DORSEY Date: 2023-02-07 12:19[facility]03-08-2023 Evaluation note* Encounter Date Diagnosis Assessment Notes Treatment Notes Treatment Clinical Notes Dec, Seasonal allergic rhinitis, unspecified trigger (ICD-10 - J30.2) [employer] Other 02-06-2023 Evaluation note* Encounter Date Diagnosis Assessment Notes Treatment Notes Treatment Clinical Notes Nov, Contact with and (suspected) exposure to covid-19 (ICD-10 - Z20.822) Nov, COVID-19 (ICD-10 - U07.1) Discharge Instructions for COVID-19 (Suspected or Confirmed ) material was printed Drink plenty fluids, get plenty of rest. Take Tylenol Motrin for aches pains or fevers. You must quarantine for 5 days after the onset of your symptoms of COVID. Follow-up with your family physician if no improvement in 2 to 3 days. [employer] Other 02-02-2023 Evaluation note* Encounter Date Diagnosis Assessment Notes Treatment Notes Treatment Clinical Notes Nov, Acute cystitis without hematuria (ICD-10 - N30.00) Discussed that bactrim could address her sinusitis symptoms as well. Take tylenol for body aches. Pt unable to provide a UA due to her work responsibilties. [employer] Other 05-19-2022 Note [id number]:[address] [place] [address] 03-02-2022 NoteCystoscopy with Urethral Dilation ? Voiding after the procedure: there may be some pain, urethral bleeding, burning, urgency, frequency and blood tinged urine following the procedure. These symptoms usually resolve within 2-5 days. Drink the amount of fluid it takes to keep the urine pink to yellow or clear in color. Drinking enough water and fluids will help to ease any discomfort after your procedure. ? If you are having problems that seem out of the ordinary, please call. ? If unable to contact your physician and you feel it is an emergency, go to the nearest emergency room or call 911 ? Diet ? you may resume your normal diet. ? Activity ? you may resume your normal activities ? [facility] you have a [facility] Discharge instructions Patient Education 03/02/2022 11:06:17 EU - Cystoscopy with Urethral Dilation Discharge Instructions (Custom) Cystoscopy with Urethral Dilation Voiding after the procedure: there may be some pain, urethral bleeding, burning, urgency, frequencyand blood tinged urine following the procedure. These symptoms usually resolve within 2-5 days. Drink the amount of fluid it takes to keep the urine pink to yellow or clear in color. Drinking enough water and fluids will help to ease any discomfort after your procedure. If you are having problems that seem out of the ordinary, please call. If unable to contact your physician and you feel it is an emergency, go to the nearest emergency room or call 911 Diet you may resume your normal diet. Activity you may resume your normal activities Call if you have a fever over 100 degrees Follow Up Care 02/21/2022 15:13:40 With:MABLE DESHPANDE Address: [address] [place] [address]. [place] [address] [facility] (1) When:6 weeks Comments:Call for followup appointment. Please finish your antibiotics. Monitor the urinary pattern after the dilation today. [facility]05-09-2022 Hospital Discharge instructions Patient Education 02/20/2022 14:38:38 Urinary Tract Infection, Adult, Rhcd-ed-Mifd Urinary Tract Infection, Adult A urinary tract infection (UTI) is an infection of any part of the urinary tract. The urinary tractincludes: The kidneys. The ureters. The bladder. The urethra. These organs make, store, and get rid of pee (urine) in the body. What are the causes? This is caused by germs (bacteria) in your genital area. These germs grow and cause swelling (inflammation) of your urinary tract. What increases the risk? You are more likely to develop this condition if: You have a small, thin tube (catheter) to drain pee. You cannot control when you pee or poop (incontinence). You are female, and: ?You use these methods to prevent : ?A medicine that kills sperm (spermicide). ?A device that blocks sperm (diaphragm). ?You have low levels of a female hormone (estrogen). ?You are . You have genes that add to your risk. You are sexually active. You take antibiotic medicines. You have trouble peeing because of: ?A prostate that is bigger than normal, if you are male. ?A blockage in the part of your body that drains pee from the bladder (urethra). ?A kidney stone. ?A nerve condition that affects your bladder (neurogenic bladder). ?Not getting enough to drink. ?Not peeing often enough. You have other conditions, such as: ?Diabetes. ?A weak disease-fighting system (immune system). ?Sickle cell disease. ?Gout. ?Injury of the spine. What are the signs or symptoms? Symptoms of this condition include: Needing to pee right away (urgently). Peeing often. Peeing small amounts often. Pain or burning when peeing. Blood in the pee. Pee that smells bad or not like normal. Trouble peeing. Pee that is cloudy. Fluid coming from the vagina, if you are female. Pain in the belly or lower back. Other symptoms include: Throwing up (vomiting). No urge to eat. Feeling mixed up (confused). Being tired and grouchy (irritable). A fever. Watery poop (diarrhea). How is this treated? This condition may be treated with: Antibiotic medicine. Other medicines. Drinking enough water. Follow these instructions at home: Medicines Take epbp-zah-zwrfxip and prescription medicines only as told by your doctor. If you were prescribed an antibiotic medicine, take it as told by your doctor. Do not stop taking it even if you start to feel better. General instructions Make sure you: ?Pee until your bladder is empty. ?Do not hold pee for a long time. ?Empty your bladder after sex. ?Wipe from front to back after pooping if you are a female. Use each tissue one time when you wipe. Drink enough fluid to keep your pee pale yellow. Keep all follow-up visits as told by your doctor. This is important. Contact a doctor if: You do not get better after 1 2 days. Your symptoms go away and then come back. Get help right away if: You have very bad back pain. You have very bad pain in your lower belly. You have a fever. You are sick to your stomach (nauseous). You are throwing up. Summary A urinary tract infection (UTI) is an infection of any part of the urinary tract. This condition is caused by germs in your genital area. There are many risk factors for a UTI. These include having a small, thin tube to drain pee and notbeing able to control when you pee or poop. Treatment includes antibiotic medicines for germs. Drink enough fluid to keep your pee pale yellow. This information is not intended to replace advice given to you by your health care provider. Make sure you discuss any questions you have with your health care provider. Document Released: 03/19/2009 Document Revised: 09/18/2019 Document Reviewed: 04/10/2019 [email or web address] Patient Education 2020 [employer]. Follow Up Care 01/31/2022 10:31:51 With:MABLE DESHPANDE PA-C, URL Address: [address] [place] [address] [facility] [place] [address] When: Unknown Comments:Will schedule Cysto [facility] 03-20-2022 Evaluation note* Encounter Date Diagnosis Assessment Notes Treatment Notes Treatment Clinical Notes Dec, Dysuria (ICD-10 - R30.0) Dec, Urinary tract infection, site not specified (ICD-10 - N39.0) Drink plenty fluids, get plenty of rest. Take the Macrobid as prescribed until gone. Take the Diflucan as prescribed until gone. Continue to take the irjl-tan-dytpsdg Azo for your symptoms. Follow-up with your physician if no improvement in 2 to 3 days. Dec, Hematuria, unspecified (ICD-10 - R31.9) [employer] Other 10-20-2021 Evaluation note* Encounter Date Diagnosis Assessment Notes Treatment Notes Treatment Clinical Notes Jul, Contact with and (suspected) exposure to other viral communicable diseases (ICD-10 - Z20.828) Jul, Acute sinusitis, recurrence not specified, unspecified location (ICD-10 - J01.90) Drink plenty fluids, get plenty of rest. Take the Augmentin as prescribed until gone. Take the prednisone as prescribed until gone. Use the Flonase nasal spray, begin today and use until your symptoms improve. Follow-up with your family physician if no improvement in 2 to 3 days Jul, Other Additional time spent conducting pre-visit phone call, screening for symptoms, instructions on social distancing, application and removal of PPE, and cleaning of examination room, equipment and supplies was preformed. Patient education given for testing methodology and results. Patient care instructions given in writting by [facility] Care At Home document. [employer] Other Evaluation + Plan note Future Appointments Appointment Date:02/23/2022 09:45:00 AM Scheduled Provider: Location:[facility] Appointment Type:Urology CALL PAT FT Appointment Date:03/02/2022 11:00:00 AM Scheduled Provider: Location:[facility] Appointment Type:Urology FT [facility] Evaluation + Plan note Future Appointments Appointment Date:04/13/2022 03:15:00 PM Scheduled Provider:MABLE DESHPANDE PA-C Location:[facility] note[facility] InformationN[facility] [employer] Other Evaluation noteNo assessment information available [facility] Work Phone: History general Narrative - Reported* Type Description Date Medical History Hypertension Medical History ADHD Medical History chronic depression Medical History heart palpitations Surgical History C section Surgical History hysterectomy Surgical History appendectomy Hospitalization History see above [employer] Other [place] [facility] Narrative - Reported* Type Description Date Medical History Hypertension Medical History ADHD Medical History Acute seasonal allergic rhinitis Medical History IFG (impaired fasting glucose) Medical History Hypokalemia Medical History Obesity Medical History NSVT (nonsustained ventricular t achycardia) Medical History Gastroesophageal ref lux disease with esophagitis without hemorrhage Medical History Palpitation Medical History Hormonal disorder Medical History Post-menopausal Medical History Anorgasmia of female Medical History Eczema, dyshidrotic Medical History Contact and allergic dermatitis of eyelid Medical History Mild episode of recurrent major depressive disorder Medical History Migraine with aura a nd without status migrainosus, not intractable Medical History GREG (generalized anxiety disorde r) Medical History Benign paroxysmal po sitional vertigo, unspecified laterality Surgical History C section Surgical History hysterectomy Surgical History appendectomy 2010 Hospitalization History see above [employer] Other History of Present illness Narrative* Patient is here for follow-up for recent evaluation of documentation of an episode of 7 beat nonsustained ventricular tachycardia, palpitation and borderline abnormal echocardiogram. Since last time I saw her she denies any cardiac complaint of chest pain, palpitation, lightheadedness, dizziness orsyncope. She remains fairly active. Her recent stress test showed no evidence of myocardial ischemia and normal LV systolic function. Patient blood pressure noted to be slightly elevated but she described classic whitecoat hypertension. * Assessment * 1. Complaint of palpitation palpitation she had documentation of 1 episode of 7 beat nonsustained ventricular tachycardia. She denies any recurrence * 2. One episode of 7 beat nonsustained ventricular tachycardia in background most normal LV systolicfunction and no clear documentation of ischemic heart disease by history recent stress test was negative * 3. Recent echocardiogram showed questionable regional motion abnormality of the anterior wall and stress test showed no ischemia and normal LV systolic function * 4. Symptoms of exertional shortness of breath obesity * 5. Hypertension controlled controlled with component of whitecoat hypertension * 6. Mild hypokalemia due to diuretic therapy corrected last potassium was 4 * Plan * 1. Due to patient with the patient her diagnostic testing. I reassured her based on negative ischemia and normal LV systolic function and no recurrence of her palpitation * 2. I recommended to her to continue to monitor her blood pressure at home and notify me if it is elevated * 3. I recent lab with her * 4. I suggested in the present medical regimen * 5. I advised the patient to notify with changes of cardiac status or symptoms * 6. We will see her in 9 month or earlier if the need arise [facility] [address] DO Work Phone: History of Present illness Narrative* Patient is here for follow-up to management for previous evaluation for palpitation, hypertension and documentation of 1 episode of 7 beat nonsustained ventricular tachycardia. Since last time I saw her she denies any cardiac complaint of chest pain, palpitation, lightheadedness, dizziness or syncope. She remains fairly active. She denies any cardiac symptomatology. * Assessment * 1. Reevaluation of palpitation with documentation 1 run of 7 beat nonsustained ventricular tachycardia. No recurrence * 2. One episode of 7 beat nonsustained ventricular tachycardia in background most normal LV systolicfunction and no clear documentation of ischemic heart disease by history recent stress test was negative * 3. He has echocardiogram showed questionable regional motion abnormality of the anterior wall and stress test showed no ischemia and normal LV systolic function * 4. His complaint of shortness of breath resolved * 5. Hypertension controlled controlled with component of whitecoat hypertension * 6. Mild hypokalemia due to diuretic therapy corrected last potassium was 4 * Plan * 1. Patient remains asymptomatic. We will continue with the same management * 2. I recommended to her to continue to monitor her blood pressure at home and notify me if it is elevated * 3. We will repeat her lab work as ordered * 4. I advised the patient to notify with changes of cardiac status or symptoms * 5. We will see her in 1 year with plan to repeat her EKG [facility] [employer] Prive DO Work Phone: Hospital course Narrative No data available for this section [facility] eTect Summary Purpose Family History Unknown Family Member Name Dates Details Family history of cerebrovas cular accident (CVA): Mother(V17.1, Z82.3) Status:Active Family history of diabetes m ellitus: Mother(V18.0, Z83.3) Status:Active Family history of myocardial infarction: Father(V17.3, Z82.49) Status:Active Unknown Family Member Name Dates Details Family history of cerebrovas cular accident (CVA): Mother(V17.1, Z82.3) Status:Active Family history of diabetes m ellitus: Mother(V18.0, Z83.3) Status:Active Family history of myocardial infarction: Father(V17.3, Z82.49) Status:Active Relationship Condition Age at Onset Recorded Date/T zulma father Unknown Heart disease Unknown Not Specified History of stroke Unknown Diabetes mellitus Unknown Advance Directives Advance Directive Response Recorded Date/ Time Advance Directives No May 03 3:09pm Chief Complaint CASEY ZAMORA is being seen for a 4 month follow-up of.CASEY ZAMORA is being seen for a 9 month follow-up of. Chief Complaint and Reason for Visit Chief Complaint Amb Documentation Sinus infection Additional Source Comments INFORMATION SOURCE (unrecogn ized section and content) DATE CREATED AUTHOR 04/09/2021 [facility] DATE CREATED AUTHOR AUTHOR'S ORGANIZ ATION 01/05/2022 [facility] DATE CREATED AUTHOR AUTHOR'S ORGANIZ ATION 06/09/2022 [facility] DATE CREATED AUTHOR AUTHOR'S ORGANIZ ATION 07/19/2022 [facility] DATE CREATED AUTHOR AUTHOR'S ORGANIZ ATION 07/19/2022 [employer] DATE CREATED AUTHOR AUTHOR'S ORGANIZ ATION 02/16/2023 [facility] REASON FOR VISIT (unrecogniz ed section and content) #24 WHITE JOURNEY- HEAD COLD , COUGH, SINUS PRESSUREDYSURIAPRESSURE IN HEAD JAW PAINsore throat, congestionALLERGY SHOTWants in todayCHECK UPAllergy Shotpink eyeNo InformationAllergy ShotItchy Scalp Care Teams (unrecognized sec tion and content) Team Status: Active Member Role Status Dates Grady Arriaga DO Primary Care Provider Active Team Status: Active Member Role Status Dates Grady Arriaga DO Primary Care Provider Active Start: January 08, 2024 NEETU Garcia Attending Provider Active Start : January 08, 2024 Team Status: Inactive Member Role Status Dates Grady Arriaga DO Primary Care Provide r, Attending Provider Active Start: February 01, 2024 End: February 01, 2024 Goals (unrecognized section and content) Goals may be documented in a n alternate section FOR RECORDS PERTAINING TO PATIENTS WHO ARE OR HAVE BEEN ENROLLED IN A CHEMICAL DEPENDENCY/SUBSTANCEABUSE PROGRAM, SOME INFORMATION MAY BE OMITTED. This clinical summary was aggregated from multiple sources. Caution should be exercised in using it in the provision of clinical care. This summary normalizes information from multiple sources, and as a consequence, information in this document may materially change the coding, format and clinical context of patient data. In addition, data may be omitted in some cases. CLINICAL DECISIONS SHOULD BE BASED ON THE PRIMARY CLINICAL RECORDS. [facility] [employer] [facility]. provides no warranty or guarantee of the accuracy or completeness of information in this document.
== END 2024-03-26 16:17 | disposition home or self-care (01) ==
PROVIDERS: PCP Internal Medicine; Visit Provider Emergency Medicine
DX: R79.1 Abnormal coagulation profile (principal)
CPT/HCPCS: 93970

== ENCOUNTER 2024-03-27 09:17 | Outpatient (OUT) | payer BC, SELFPAY ==
--- OUTSIDE RECORDS SUMMARY | 2024-03-26 16:36 | XMS_ITS | CCD ---
Author Organization [facility] Care Team Providers Care Communication Manager Name Role Phone Bart Grady Toney Unavailable Unavailable Unavailable GRADY ARRIAGA Primary Care Physician Clare Justin Unavailable Dedra, Dr. Ulrich Referring Unavaila Gardy Jaime Primary Care Unavailchago Colmenares, Dr. Ulrich Attending Unavaila madhuri Colmenares, Dr. Ulrich Referring Unavaila ble Grady Arriaga [place] Primary Care Unavailabl e Dedra, Dr. Ulrich Attending Unavaila ble Gela Ortiz Unavailable Grady Arriaga Unavailable BART, DR GAINES Primary Care Unavailable JUAN ., DR DHALIWAL Consulting Unavailable JUAN ., DR DHALIWAL Attending Unavailable JUAN ., DR DHALIWAL Admitting Unavailable JUAN ., DR DHALIWAL Admitting Unavailable JUAN ., DR DHALIWAL Attending Unavailable BART, DR GAINES Primary Care Unavailable SUMMER SHADE, DR CARLOS Gipson Consulting Unavailable JUAN ., [...] physicia Propensity to adverse reactions 8 Comment:Done Novasentis Other (3 sources) NONE CURRENT Propensity to adverse reactions 0 NONE CURRENT Novasentis Other (3 sources) Allergies Reconciled Propensity to adverse reactions Unknown Novasentis Other Medications Current Medications Medication Drug Class(es) [...] procedure, # 2 tab(s), Refills(s) 0, Pharmacy: [id number], 169, cm, 02/28/22 9:30:00 EDT, Height/Length Dosing, 95, kg, 02/21/22 14:43:00 EDT, Marciano... Start Date: 02/28/22 Status: Ordered Claritin-D 24 Hour 10-240 MG (1 source) Start: 05-28-2023 take 10-240 mg by mouth once daily Claritin-D 24 Hour 10-240 MG 1 tablet Orally Once a day for 30 days May, Active dexamethasone 1 mg/ml / neomycin 3.5 mg/ml / polymyxin b 74537 unt/ml ophthalmic suspension (1 source) Aminoglycoside Antibacterial, Polymyxin-class Antibacterial, Corticosteroid Start: 11-30-2020 take 2 drop(s) into the eye(s) four times daily Maxitrol 3.5-75775-9.1 2 drops into affected eye Ophthalmic Four [...] Status: Ordered take 1 capsule by mo [facility] once daily Metoprolol Succinate 25 MG 1 [...] 05-05-2015 Episodic Other aftercare (1 source) 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 It has not been cleared or approved by the Food and Drug Administration. Reference Range: Adult Female: 4 - 22 Performed By: #### D HT #### [facility] [address] [place] [address] Dr. Manny Eller TESTOSTERONE, FREE,DIRECT, T OTALon 12-09-2022 Free Testosterone(Direct) 1.7 pg/mL Normal 0.0-4.2 [facility] Comment on above: Result Comment: Perf ormed at: BN Performed By: #### T ESTFRD #### [facility] [address], [place] [address] Dr. Manny Eller Testosterone [Mass/Vol] 32 ng/dL Normal 4-50 [facility] Comment on above: Result Comment: Perf ormed at: CB Performed By: #### T ESTFRD #### [facility] [address], [place] [address] Dr. Manny Eller DHEA-SULFATEon 12-06-2022 DHEA-Sulfate 163.0 ug/dL Normal 41.2-243.7 [facility] Comment on above: Performed By: #### D HEASUL #### [facility] [address] [address] [address] Manny Eller MG MAMM SCREEN 3D ELOY CADon 11-30-2022 MG MAMM SCREEN 3D ELOY CAD Patient: CASEY ZAMORA Exam Date: 11/30/2022 : 1970 Gender:F Ordering : DR MADHURI TAYLOR . Admission #: [id number] Family : Order #: [id number] CLICK HERE TO VIEW EXAM RADIOLOGY REPORT [...] Treatments None Family Cancers None LOCATION: [facility] BREAST COMPOSITION: Scattered areas fibroglandular density. FINDINGS: [...] MD on 11/30/2022 at 13:57 Normal [facility] COVID/FLU RT-PCRon 02-06-202 3 SARS-CoV-2 (COVID-19) RNA BOB+probe Ql (Unsp spec) Positive Novasentis Other COVID/FLU RT-PCR Negative [facility] [employer] Other CORTISOLon 10-26-2022 Cortisol 7.8 ug/dL Normal [facility] Comment on above: Result Comment: Mervin isol AM 6.2 - 19.4 Cortisol PM 2.3 - 11.9 Performed By: #### D HT #### [facility] [address] [place] [address] Dr. Manny Eller TESTOSTERONE, FREE,DIRECT, T OTALon 10-13-2022 Free Testosterone(Direct) <0.2 Normal 0.0-4.[address] [facility] Comment on above: Result Comment: Perf ormed at: BN Performed By: #### T ESTFRD #### [facility] [address] [place] [address] Dr. Manny Eller Testosterone [Mass/Vol] ng/dL Critically low 4-50 [facility] Comment on above: Result Comment: Perf ormed at: CB Performed By: #### T ESTFRD #### [facility] [address] [place] [address] Dr. Manny Eller CORTISOLon 10-12-2022 Cortisol 0.5 ug/dL Normal [facility] Comment on above: Result Comment: Mervin isol AM 6.2 - 19.4 Cortisol PM 2.3 - 11.9 Performed By: #### C ORTISO #### [facility] [address] [place] [address] Dr. Manny Eller DHEA-SULFATEon 10-12-2022 DHEA-Sulfate 16.2 ug/dL Critically low 41.2-243.7 [facility] Comment on above: Performed By: #### D HEASUL #### [facility] [address] [place] [address] Dr. Manny Eller ESTRADIOLon 10-12-2022 Estradiol 30.9 pg/mL Normal [facility] Comment on above: Result Comment: Adul t Female: Follicular phase 12.5 - 166.0 Ovulation phase 85.8 - 498.0 Luteal phase 43.8 - 211.0 Postmenopausal <6.0 - 54.7 1st trimester 215.0 - >4300.0 [place] ECLIA methodology Performed By: #### C MP, LIPID #### [facility] [address] [place] [address] Dr. Manny Eller ESTRONEon 10-12-2022 Estrone, Serum <6 Normal [facility] Comment on above: Result Comment: Rang e Adult (Premenopausal) 27 - 231 Menstrual Cycle (1-10 days) 19 - 149 Menstrual Cycle (11-20 days) 32 - 176 Menstrual Cycle (21-30 days) 37 - 200 Adult (Postmenopausal) 0 - 125 Performed By: #### E STRONE #### [facility] [address] [place] [address] Dr. Manny Eller PROGESTERONEon 10-12-2022 Progesterone <0.1 Normal [facility] Comment on above: Result Comment: Foll icular phase 0.1 - 0.9 Luteal phase 1.8 - 23.9 Ovulation phase 0.1 - 12.0 First trimester 11.0 - 44.3 Second trimester 25.4 - 83.3 Third trimester 58.7 - 214.0 Postmenopausal 0.0 - 0.1 Performed By: #### C MP, LIPID #### [facility] [address] [place] [address] Dr. Manny Eller SEX HORMONE-BINDING GLOBULIN on 10-12-2022 Sex Horm Binding Glob, Serum 55.9 nmol/L Normal 17.3-125.0 [facility] Comment on above: Performed By: #### S EXHBG #### [facility] [address] [place] [address] Dr. Manny Eller GLYCOHEMOGLOBIN A1Con 2021 ADA RECOMMENDATION SEE BELOW Normal [facility] Comment on above: Result Comment: ADA RECOMMENDED LIMIT 4.0 - 6.0 ADA THERAPEUTIC TARGET < 7.0 ACTION SUGGESTED > 7.0 Performed By: #### D HT #### [facility] [address] [place] [address] Dr. Manny Eller Glucose [Mass/Vol] 108 mg/dL Normal [facility] Comment on above: Performed By: #### D HT #### [facility] [address] [place] [address] Dr. Manny Eller HbA1c (Bld) [Mass fraction] 5.4 % Normal 4.5-6.2 [facility] Comment on above: Performed By: #### D HT #### [facility] [address] [place] [address] Dr. Manny Eller POTASSIUMon 10-11-2022 Potassium [Moles/Vol] 3.6 mmol/L Normal 3.5-5.1 [facility] Comment on above: Performed By: #### C MP, LIPID #### [facility] [address] [place] [address] Dr. Manny Eller VITAMIN D 25 OHon 10-11-2022 VIT D 25-OH 37.3 ng/mL Normal [facility] Comment on above: Performed By: #### D HT #### [facility] [address] [place] [address] Dr. Manny Eller VIT D RANGES SEE BELOW Normal [facility] Comment on above: Result Comment: <20 ng/mL Vit D deficient 20 - <30 ng/mL Vit D insufficient 30 - 100 ng/mL Vit D sufficient >100 ng/mL Potential Toxicity Performed By: #### D HT #### [facility] [address] [place] [address] Dr. Manny Eller CBC AUTO DIFFon 09-25-2022 BASO # 0.1 103/ul Normal 0.0-0.1 [facility] Comment on above: Performed By: #### C MP, LIPID #### [facility] [address] [place] [address] Dr. Manny Eller Basophils/100 WBC (Bld) 1.1 % Normal 0.2-2.0 [facility] Comment on above: Performed By: #### C MP, LIPID #### [facility] [address] [place] [address] Dr. Manny Eller EO # 0.1 103/ul Normal 0.0-0.7 [facility] Comment on above: Performed By: #### C MP, LIPID #### [facility] [address] [place] [address] Dr. Manny Eller Eosinophils/100 WBC (Bld) 1.1 % Normal 0.9-7.0 [facility] Comment on above: Performed By: #### C MP, LIPID #### [facility] [address] [place] [address] Dr. Manny Eller Erythrocyte distribution width (RBC) [Ratio] 12.2 % Normal 11.0-15.0 [facility] Comment on above: Performed By: #### C MP, LIPID #### [facility] [address] [place] [address] Dr. Manny Eller Hematocrit (Bld) [Volume fraction] 42.9 % Normal 36.0-48.0 [facility] Comment on above: Performed By: #### C MP, LIPID #### [facility] [address] [place] [address] Dr. Manny Eller Hemoglobin (Bld) [Mass/Vol] 15.0 g/dL Normal 12.0-16.0 [facility] Comment on above: Performed By: #### C MP, LIPID #### [facility] [address] [place] [address] Dr. Manny Eller IG # 0.01 10e3/ul Normal 0.00-0.03 [facility] Comment on above: Performed By: #### C MP, LIPID #### [facility] [address] [place] [address] Dr. Manny Eller IG % 0.2 % Normal 0.0-0.5 [facility] Comment on above: Performed By: #### C MP, LIPID #### [facility] [address] [place] [address] Dr. Manny Eller LYMPH # 1.3 103/ul Normal 1.2-3.8 [facility] Comment on above: Performed By: #### C MP, LIPID #### [facility] [address] [place] [address] Dr. Manny Eller Lymphocytes/100 WBC (Bld) 28.4 % Normal 20.5-60.0 [facility] Comment on above: Performed By: #### C MP, LIPID #### [facility] [address] [place] [address] Dr. Manny Eller MANUAL DIFF REQ NO Normal [facility] Comment on above: Performed By: #### C MP, LIPID #### [facility] [address] [place] [address] Dr. Manny Eller MCH (RBC) [Entitic mass] 32.3 pg Normal 26.7-34.0 [facility] Comment on above: Performed By: #### C MP, LIPID #### [facility] [address] [place] [address] Dr. Manny Eller MCHC (RBC) [Mass/Vol] 35.0 g/dL Normal 29.9-35.2 [facility] Comment on above: Performed By: #### C MP, LIPID #### [facility] [address] [place] [address] Dr. Manny Eller MCV (RBC) [Entitic vol] 92.5 fL Normal 81.0-99.0 [facility] Comment on above: Performed By: #### C MP, LIPID #### [facility] [address] [place] [address] Dr. Manny Eller MONO # 0.3 103/ul Normal 0.3-0.8 [facility] Comment on above: Performed By: #### C MP, LIPID #### [facility] [address] [place] [address] Dr. Manny Eller Monocytes/100 WBC (Bld) 7.0 % Normal 1.7-12.0 [facility] Comment on above: Performed By: #### C MP, LIPID #### [facility] [address] [place] [address] Dr. Manny Eller NEUT # 2.8 103/ul Normal 1.4-6.5 [facility] Comment on above: Performed By: #### C MP, LIPID #### [facility] [address] [place] [address] Dr. Manny Eller Neutrophils/100 WBC (Bld) 62.2 % Normal 43.0-75.0 [facility] Comment on above: Performed By: #### C MP, LIPID #### [facility] [address] [address] [address] Manny Eller Platelet mean volume (Bld) [Entitic vol] 9.6 fL Normal 9.5-13.5 [facility] Comment on above: Performed By: #### C MP, LIPID #### [facility] [address] [address] [address] Manny Eller PLT 322 103/ul Normal 150-450 [facility] Comment on above: Performed By: #### C MP, LIPID #### [facility] [address] [address] [address] Manny Eller RBC 4.64 106/ul Normal 4.20-5.40 [facility] Comment on above: Performed By: #### C MP, LIPID #### [facility] [address] [place] [address] Dr. Manny Eller WBC 4.6 103/ul Normal 4.0-11.0 [facility] Comment on above: Performed By: #### C MP, LIPID #### [facility] [address] [place] [address] Dr. Manny Eller LIPID PROFILEon 09-25-2022 CHOL-HDL RATIO NORM SEE BELOW Normal [facility] Comment on above: Result Comment: 3.3 - 4.4 LOW RISK 4.4 - 7.1 AVERAGE RISK 7.1 - 11.0 MODERATE RISK >11.0 HIGH RISK Performed By: #### C MP, LIPID #### [facility] [address] [place] [address] Dr. Manny Eller Cholesterol [Mass/Vol] 171 mg/dL Normal <=200 [facility] Comment on above: Performed By: #### C MP, LIPID #### [facility] [address] [address] [address] Manny Eller Cholesterol in HDL [Mass/Vol] 49 mg/dL Normal 40-60 [facility] Comment on above: Performed By: #### C MP, LIPID #### [facility] [address] [address] [address] Manny Eller Cholesterol in LDL [Mass/Vol] 103.4 mg/dL Normal [facility] Comment on above: Performed By: #### C MP, LIPID #### [facility] [address] [address] [address] Manny Eller Cholesterol.total/Choles terol in HDL [Mass ratio] 3.5 {ratio} Normal [facility] Comment on above: Performed By: #### C MP, LIPID #### [facility] [address] [address] [address] Manny Eller HDL NORMAL > or = 60 mg/dl - LOW CARDIOVASCULAR RISK <40 mg/dl - HIGH CARDIOVASCULAR RISK Normal [facility] Comment on above: Performed By: #### C MP, LIPID #### [facility] [address] [address] [address] Manny Eller LDL CALC NORMAL SEE BELOW Normal [facility] Comment on above: Result Comment: <100 mg/dl OPTIMAL 100 - 129 mg/dl NEAR OR ABOVE OPTIMAL 130 - 159 mg/dl BORDERLINE HIGH 160 - 189 mg/dl HIGH >190 mg/dl VERY HIGH Performed By: #### C MP, LIPID #### [facility] [address] [address] [address] Manny Eller Triglyceride [Mass/Vol] 93 mg/dL Normal <=150 T [facility] Comment on above: Performed By: #### C MP, LIPID #### [facility] [address] [address] [address] Manny Eller VLDL CALC 18.6 mg/dL Normal [facility] Comment on above: Performed By: #### C MP, LIPID #### [facility] [address] [address] [address] Manny Eller PROF 14(COMP METB)on 022 Albumin [Mass/Vol] 3.8 g/dL Normal 3.4-5.0 [facility] Comment on above: Performed By: #### C MP, LIPID #### [facility] [address] [address] [address] Manny Eller Albumin/Globulin [Mass ratio] 1.1 {ratio} Normal [facility] Comment on above: Performed By: #### C MP, LIPID #### [facility] [address] [address] [address] Manny Eller ALP [Catalytic activity/Vol] 73 U/L Normal 46-116 [facility] Comment on above: Performed By: #### C MP, LIPID #### [facility] [address] [address] [address] Manny Eller ALT [Catalytic activity/Vol] 39 U/L Normal 14-59 [facility] Comment on above: Performed By: #### C MP, LIPID #### [facility] [address] [address] [address] Manny Eller Anion gap [Moles/Vol] 11.6 mmol/L Normal [facility] Comment on above: Performed By: #### C MP, LIPID #### [facility] [address] [address] [address] Manny Eller AST [Catalytic activity/Vol] 23 U/L Normal 15-37 [facility] Comment on above: Performed By: #### C MP, LIPID #### [facility] [address] [address] [address] Manny Eller Bilirubin [Mass/Vol] 0.7 mg/dL Normal 0.2-1.0 [facility] Comment on above: Performed By: #### C MP, LIPID #### [facility] [address] [address] [address] Manny Eller Calcium [Mass/Vol] 9.3 mg/dL Normal 8.5-10.1 [facility] Comment on above: Performed By: #### C MP, LIPID #### [facility] [address] [address] [address] Manny Eller Chloride [Moles/Vol] 101 mmol/L Normal 98-107 [facility] Comment on above: Performed By: #### C MP, LIPID #### [facility] [address] [address] [address] Manny Eller CO2 [Moles/Vol] 31.2 mmol/L Normal 21.0-32.0 [facility] Comment on above: Performed By: #### C MP, LIPID #### [facility] [address] [address] [address] Manny Eller Creatinine [Mass/Vol] 0.87 mg/dL Normal 0.55-1.02 [facility] Comment on above: Performed By: #### C MP, LIPID #### [facility] [address] [address] [address] Manny Eller EGFR-AF ARGENTINE >60 Normal >=60 [facility] Comment on above: Performed By: #### C MP, LIPID #### [facility] [address] [address] [address] Manny Eller EGFR-NON AF ARGENTINE >60 Normal >=60 [facility] Comment on above: Performed By: #### C MP, LIPID #### [facility] [address] [address] [address] Manny Eller Globulin (S) [Mass/Vol] 3.6 g/dL Normal [facility] Comment on above: Performed By: #### C MP, LIPID #### [facility] [address] [address] [address] Manny Eller Glucose [Mass/Vol] 124 mg/dL Critically high 74-106 [facility] Comment on above: Performed By: #### C MP, LIPID #### [facility] [address] [address] [address] Manny Eller Potassium [Moles/Vol] 2.8 mmol/L Critically low 3.5-5.1 [facility] Comment on above: Performed By: #### C MP, LIPID #### [facility] [address] [address] [address] Manny Eller Protein [Mass/Vol] 7.4 g/dL Normal 6.4-8.2 [facility] Comment on above: Performed By: #### C MP, LIPID #### [facility] [address] [address] [address] Manny Eller Sodium [Moles/Vol] 141 mmol/L Normal 136-145 [facility] Comment on above: Performed By: #### C MP, LIPID #### [facility] [address], [place] [address] Dr. Manny Eller Urea nitrogen [Mass/Vol] 15.0 mg/dL Normal 7.0-18.0 [facility] Comment on above: Performed By: #### C MP, LIPID #### [facility] [address], [place] [address] Dr. Manny Eller Urea nitrogen/Creatinine [Mass ratio] 17.2 mg/mg Normal [facility] Comment on above: Performed By: #### C MP, LIPID #### [facility] [address], [place] [address] Dr. Manny Eller Office Visit (Cardiology)on 07-18-2022 [...] lose weight.; Status:Complete - Retrospective Authorization; Done: [id number] Palpitations Continue with our present treatment plan.; Status:Complete - Retrospective Authorization; Done: [id number] SocHx: Never a smoker Tobacco Use Screening; Status:Complete; Done: [id number] Patient Instructions Please bring all medicines, vitamins, [...] Recorded: 18Jul2022 01:41PM Heart Rate68, L Radial Tuuouktf597, LUE, Sitting Bpduushxg66, LUE, Sitting Height5 ft 7 in Rssfep036 lb 4 oz BMI Ocpgdwdsgf97.54 kg/m2 BSA Ca (more content not included)... Normal [facility] Tobacco Screening.on Adult depression screening assessment No [facility] 250 DO Work Phone: Tobacco use status [facility] b) No [facility] 250 DO Work Phone: CT HEAD WO [...] ADAIR SCHMITT Date: 2022-07-15 11:31 Normal [facility] CTA NECK WO W CONon 10-01-20 22 [...] by: CARLOS RUBI Date: 2022-07-15 14:56 Normal [facility] Patient Educationon 06-07-20 22 Patient Education Infectious [...] Supplies needed: ? Soap. ? Alcohol-based hand net programmer. ? Standard cleaning products. ? Disinfectants, such [...] water are not available, use alcohol-based hand net programmer. ? Avoid touching your face, mouth, nose, [...] water. Air-dry your dishes or use a non destructive testing supervisor. ? Do not share dishes or eating [...] certain germs and not others. Read the property man's instructions or read online resources to determine [...] toil (more content not included)... Normal [facility] Urology Office/Clinic Noteon 06-07-2022 Urology Office/Clinic Note [...] Only if needed [address] [address] Additional Instructions: PRN Patient Education Infection Prevention [...] cholesterol: Father. Hypertension: Mother. Stroke: Mother. Normal [facility] [facility] Comment on above: Result Comment: Elec tronically Signed By: MABLE DESHPANDE PA-C\.br\Date and Time Signed: 06/07/22 16:03 EDT\.br\Electronically Co-Signed By: Aure Eagle\.br\Date and Time Co-Signed: 06/07/22 15:02 EDT Coding Summary.on 03-06-2022 Coding Summary. CD:[id number] Gh0bWw+PGhlYWQ+PE1FV UJiX28kqBPluK8VJ8sWT P0YZUQTGCCRAC7RTL5nb XT3BCpmV7HquxJb DaggqFClPU88FIm7JDU9 zCayPBllgO9txFOvI3p3 GbInLT73iG12FQdpHARj MwL8WzDgrcvfxISs H6ujVsUkdZSeTvm+PHRh YmxlIHdpZHRoPScxMDAl VlNyxGbnMY3fMo4uXBSx LWNvbGxhcHNlOiBj e4wsIWVeVFubRH7khLmv G5GpwWV0LHPpx9f6Vz77 dHI+KZKiKTO7xCboQOye k589RqDet4vnNVE8 nPCqVIqwFKN2K50bh6U1 LJIoOTRfJZI4rGG2jQ9q aWuhllguX6YnsBWjMgF5 IGQ6lWUitJ2dgDdf uzafrZ1vKaw+P16YDU8O GDARAO9VNsk3O1HfRydv dHI+XR63JAQdIM85bLJg hYKaa7hbrOy9XqVg BHIhPTB3hTqzGJujv3Zb MKLvN30ftKWuc9O7XGTu uIpcgSRjZrHskST9dN7n ZZqnccbou3wxvahq Nmysl6rrcc42zD45O13f WKjxSHFtQRE5NUDaNAGu fKjvmk0rkD5xBo7+IDxj y6lbc7pgrEi3YdFa EUHpxlPqkBkdQOM2g2Vt Xc36C8MaeWitg9YtSyx2 cm25oRMqm7E4hTW5ISlr HDHgyQ5tYTxjSfP2 JOSpFiKycM39zXWtTSmj Oi0voKdssXmbXJ9vPYZf zsoaWGHnsO5tUTTibQLx sNshSW3aZCWeslrh a035OsMwFTZ7TJRgxUDv Z5IniV5wJvZaWVXrMJMj U8VblWSfAYtbA642BNqd OhD7IWFirmNeS2Mw VRFydZexZyU4z5V1Ul7T a8GbnuvvAFN3CGddOBL2 RiIkEmXqOnK0S2JsOke1 SZQstAduAE3gO8Fc ZEFfitkbvvjqrNF3VONk YZHkiH86mQZpGChyTr2r m1F3a936WCDpVPWvcF71 My2gzGdoHLSkuCJW tW0jcisjh1ppexseXxYe ZQXaXMe6UWl9PITieExp WcHmHQF6QaL7AMG1bYPq dF6fhDfcxqpklY5n Oyc+A70zsS7tHJB3BNJ1 gnrrUGSlmfBsBQ64US42 T5FiArmfbUOxwVX+PGRp clSuyGfyQB9jYrRf i8csk3YoQUrtE8SnICBx FVohUou2HDKnKJO8mDP6 cB3mWHZkMItxs7C9cFQ4 J7CewpGvaa2xs6wk OQIyOJueP75rbACbi8S5 FAUlgMV1ZLEbaCvaWlJl fS52Cif+BWJyrFdgi3Ra Zdmhp1jwo8giaNu7 IjMwJSIgdmFsaWduPSJ0 n4DwVw59D14lRKluVDLj UAHwAWVwRMIniZizwk4x mZ3fDx8+PGNvbCB3 jST7kT5oQCNoKcW5QJbs G594TcXzrTCxMgqbb8xj y3oqsMw2FvGiHJIyhnLj rFfpTCE4h0MkUt29 D45eMEesQBDoUNQoYRMj XQJgaMctbn3nlA5wKv9+ LJ8zb2tnaz77yV53kVA+ EURqDKJ4uJqjSGpv LFBixZ3pHWkxCmL5OPDm LaVzuS81zZGvLMmkPy0r pTexkUanNX9uCGBwqrtj u918JhEvj7hvMRSf fJZsGPszINR3T73po5Q3 JSZbADRsMNO7vYT6mE1y bGlnbjogbGVmdDsgdmVy zNnuHIzxBSszD435 IHRvcDsnPlBhdGllbnQg RlKdECf9E9NxEbb5HYUz wRghLX8nfCTmJUosBp2k bAndaDszYF6uDKTh olujz137MbOuy0vlNUBy pYJnKHdcEGB9V31mw6T3 AYWzWVZfUEY6zUU8nR8s bGlnbjogbGVmdDsg rpKjeFinCTyfANdtB748 IHRvcDsnPkJpcnRoIERh uAQ1UV37IL73pYEjy5A6 uKD5N0GxKGCpbbwk sdrciXW3SGQsWMFtmP47 Bg8hdXycGu8vCZPyRUG5 EGObhOFsD7WxaE1rCdPm JMKdTSMwE2WqqAPd HUjgM727TFyrQiH0CKFx llDhR4NpFVLwxDgvZpU2 r9E8Nf0OT4W0JZ59HP09 sAHex9V2wHJ8X9Cz ZWNsjevxslwsgFA6GJAo OOBxaA15Ms5hxHjqLa5w DJUjQOR8SAFjxOEqZ5Zb aG9nXqVwHCLiTBKk A1AyiGBfCSnoQ997FJic BxE0MZVtlzMzG3JmPQNm qAbsNrO1e3J2Dn2QZXg8 RQ99OB73aTQap1U5 yWI7A5EnAPMnoysraupn wQU1FTYvZCAfbY49Pf1k zLtsNm1pSOKbLDC0YOEc qAXrQ4CkiP4zOhRd BXWtOQOlJ5NrqRUlVUxv V079SFgwZkR3UDEyuuZs D9LoJNTtuKetEaL1h8F5 Jn2TNQMqWL27AGO3 vXU9NS06HP89K8YrRpof dGFibGU+PHRhYmxlIHdp ZHRoPScxMDAlJyBzdHls DM3kWb5aPFRaPHUb mAvtcGHnPcTme2umOLGg HBaaAW6mmEkrU3SpcNJ7 SLNee0a0Hj70V71pR4Vu dXA+LRIeaNY6uIG4 eW6mHoTwEsF5QZfzG249 YrSnfAClMlbmm1kcu2va zCy3PlO5QTQjkxIlpAkx AQW1x9QdOi53X22h IHdpZHRoPSIxNSUiIHZh mWiysz0guX8bYl0+PGNv zAX3gII6nN3wRgJkLfB3 MRqwF725VrSshZCn Vcydo8bqa7fltFx5HrDo UQYxztSaqGtkIDS9y3Yx Fg51Q5QncTwyq9YaBmi3 gz39lZXut7H1xWE5 T4JaJHOcwblzmSJfcRcc LR1pBJWnqdpxLJOuuQ8n XECcK4v4HlUpVzN8ZRsq J5QcnnS4SGOquGQr OLybSHH5J94dz2A8XSFa FNRoAMS3xTS5uY4ikOsp bjogbGVmdDsgdmVydGlj DRusXYigY320DSOt mPwgHFJjhV9hPZFbdQKd cZcaOY4bYTEekpmaNv6G VQPQQCNKACNIZGGTYZ98 TI95oFUel3P9jGB0 X4LaHFSirscxoplirUU8 JIXdWUFbfT48sMGuCXtt Fh8of0G7j359JLNrLRKv rP55Kh6juHoyJHZy pHGCuC5ubraam5gqmqvc YsZdTCWjYWk1TLr5FELn oXigDiBdVBU5AqJ6ERB1 uYWczQ1ttRhpzaal yU8sJqp+MDkvMTEvMTk2 OTwvdGQ+SODqISO0wNuf SUakBKVvqM7pZWBjU7a1 WyBtFoX7OSldG4Ni BDNleiuwZj77uK8mDxCb SnR9SSwgB3CezrZ9SDJv fGDsFKdlDAN7S32wq5N2 EZCrAYAmGOI0tXX9 vD0oeFahylhyqVSmkPup wfPhuOwaSJwaEIlnP174 IHRvcDsnPjUyIFllYXJz FS69HI58uLAir4Q8 nSB7W7RtEFVlusfheqbc hTA0UKTkYUSxvK25zXDc DBkgVg9tn0W4t637QFDe WCOlhH94Ok9dqXwg RSQhxXBGiQ0cpxddw7aa gzjvHiDgZOZqNFi3ZYp1 AAQfmUltHuXbITT7OcA7 QSE5jNPqmH7izKai drxuaT5hLqs+RmVtYWxl IZ42ZY81uVRyq0E9lUF9 R2AjGHPaswuztizmfOO4 MLYcXBQgkC63pUOn WCkpRs2ez7C0l109FGFx CADleL97Cu7otSprAVJd rZVAjA6cafwls0dpkebe OtLkYZCyRIl2PBc3 ZXTxkOjpTeTcIJU1UmU7 YZG0pBHtcZ1ckPhcdskw aK6mHao+D7U6bDD9lTJj dDwvdGQ+KP68qg26 A1CjWmnpApk4DNDkHGJ1 cDN5tS8tCAKfVDpci3R4 aSE3G7WhcxKwbt6hl2qf LQZvNTqdD43bgAGp s2U9AEEbiJQ6UNKwpKmz MnEwdS15Uke+PGNvbGdy t8PoXxakq4hsp7kssYc9 IjMwJSIgdmFsaWdu XII4r6VuFi80E40xTBzm ZHRoPSIzMCUiIHZhbGln wl7tzK5lCl6+PGNvbCB3 sLF1wA9jAcBfHcW3 IGriK311MrCtgDQcUmjc m5ugo5eouLh9AtDrLLXb ijCsjUclJEM1v9XqHt52 A7CwdMgxe8ZfBpa4 ub96kHAwv2O2vLC5T8Pw IHXxnjhleLBkyBhrVR0i LXQujumiENBxxJ2lZKEq G6e4PiYnLmG7LHbn Y3VdidG2GUDnnHYxIJTj bWBUcP9pmrdag5lkavlx GoQmROEkJQp4VIa9MPRo pOijAtJnUHT3WaU4 IPH9yLGbuP2caPixaeot yV6nLbt+JCw3f4qzuPWd HD5tbLJ5GB27RZ93iPJm l6V4oWR0P9DkUHOv jduhjmckwTD6AIMyEPFz pL54Ti8meEsbFs1lYPDz EWQ8IHLfkHXfK0OwqC7b NuQfMJXnHULrI3Ou pDAjLXdpL105MXhiEqC4 QOOlevPfS5IwLTHnjQnd BkH6z4J4Bq6LZL91FV48 MH42cAFal2W1dFS7 E7XjTQMpszanglykuTR2 ECLhVZIngE83Rc5drYbo Zh8oOGHkUFV9GMCbtRLe L3RnpY9bIaLrGKIr KGFxE0DgpGYrLFokO284 HOaxGtC9XCRknlXgS8Ca UPMfkDieSuA4v2K0Kd7S Fm59YX26NM72iKMv i5C4cGS5K3IbOUWbunnz evugaOO3BLQsHDAddD92 Zf6kcIhvSn5zRHFsCCG6 JFDytSNtX3VgpH3n PaReSZNoXKEjE9YgmUTw QBiyX308WOqcDeX4ANVb mdKwR3DvCJXylAmlTbX8 s0T9Ja7XWPhfkur1 V5WqJybdlBY+UU67OLEz AI89hUHswETai1tpaYi1 LoApTWZqJSR2vQyeTTcd d8UzTJIeI10rcLPn c2U6 (more content not included)... Normal [facility] Consent for Procedure/Surger yon 03-02-2022 Consent for Procedure/Surgery [id number] 9#1.00CD:127 Normal [facility] Consent for Treatmenton 02-12 Consent for Treatment [id number] #1.00CD:127 Normal [facility] Inpatient Patient Summaryon 03-02-2022 Inpatient Patient Summary [place] [address] Clinical Summary Person Information Name: CASEY ZAMORA Age: 51 Years : 1970 Sex: Female PCP: GRADY ARRIAGA DO Marital Status: Race: White Ethnicity: Non- or Language: Swiss Visit Id: Visit Reason: RECURRENT UTI INCOMPLETE EMPTYING Speciality: Acuity: Enc Type: Outpatient Med Service: Surgery Arrival: 03/02/2022 10:27:40 Discharge: Dispo Type: Address: [address] [place] [phone] Provider Notes: Diagnosis: Problems Active Recurrent UTI [...] Follow up: With: Address: When: MABLE DESHPANDE [address] [place] [phone] [facility] ([place] Within 6 weeks Comments: Call for followup appointment. Please finish your antibiotics. Monitor the urinary pattern after the dilation today. Patient Education Information: EU - Cystoscopy with Urethral Dilation Discharge Instructions (Custom) [facility] IntraOperative Documentson 0 03-02-2022 IntraOperative Documents [id number] 5#1.00CD:127 [facility] Main OR Intraoperative Recor don 03-02-2022 Main OR Intraoperative Record IntraOp Document Type FTURO Summary Primary Physician: Yinka OJEDA MD Finalized Date/Time: 03/02/22 11:16:49 Pt. Name: CASEY ZAMORA/Sex: 1970 Female Med Rec #: [id number] Physician: Yinka OJEDA MD Financial #: [id number] Pt. Type: O Room/Bed: / Admit/Disch: 03/02/22 [...] Porsha Lobo Role Performed Surgeon - Primary Water Fabricator Operator - Primary Scrub - Primary Time In [...] Complete 03/02/22 11:19:00 Last Modified By: DOMINIC Paraad RN, Ruthann 03/02/22 11:16:19 Case Comments Finalized By: DOMINIC Parada RN, Ruthann Document Signatures Signed By: DOMINIC Parada RN, Ruthann 03/02/22 11:16 Normal [facility] Main OR Preoperative Recordo n 03-02-2022 Main OR Preoperative Record Holding Area Document Type FTURO Summary Primary Physician: Yinka OJEDA MD Finalized Date/Time: 03/02/22 11:11:38 Pt. Name: CASEY ZAMORA./Sex: 1970 Female Med Rec #: [id number] Physician: Yinka OJEDA MD Financial #: [id number] Pt. Type: O Room/Bed: / Admit/Disch: 03/02/22 [...] DOMINIC Parada RN, Ruthann 03/02/22 11:11 Normal [facility] Operative Reporton Operative Report Patient: CASEY ZAMORA [...] urine. The Urethra was dilated to: 30 Arabic w/ sounds. Devices Implanted: None. Removal: Cystoscope is removed, The patient tolerated it well. Postoperative Information Discharge: Patient is discharged home with antibiotic coverage, Follow up arranged, F/U MARIANO Monge, in about six weeks. Monitor urinary flow pattern. Hopefully UTI frequency will decrease. Normal [facility] Comment on above: Result Comment: Elec tronically Signed By: Yinka OJEDA MD\.br\Date and Time Signed: 03/02/22 11:19 EDT Outpatient Surgery Discharge Instructionon 03-02-2022 Outpatient Surgery Discharge Instruction [address] [address] Patient Discharge Instructions PERSON INFORMATION Name: CASEY [...] Follow up: With: Address: When: MABLE DESHPANDE [address] [place] [address] [address] [place], [place] [phone] [facility] (1) Within 6 weeks Comments: Call [...] to serve you. Thank you for choosing [facility] Normal [facility] Pre-Certification Formon Pre-Certification Form [id number] 8#1.00CD:127 Normal [facility] Formson 02-22-2022 Forms [id number] #1.00CD:127 Normal [facility] Urology Office/Clinic Noteon 02-21-2022 Urology Office/Clinic Note [...] UTIs directly correlates to sexual activity increase. VELVET CUTTER (Juan) already started her on post-coital Keflex [...] baths & hot tubs, avoid any scented VELVET CUTTER products, urinate after sexual activity, etc) 5) [...] When Contact Information MABLE DESHPANDE PA-C, URL [address] [place] [address] Additional Instructions: Will schedule Cysto Patient Education Urinary Tract Infection, Adult, Kerb-us-Bsfe Grecia Morales, personally scribed for Mable Deshpande [...] 14:37:00) L (more content not included)... Normal [facility] Comment on above: Result Comment: Elec tronically Signed By: MABLE DESHPANDE PA-C\.br\Date and Time Signed: 02/21/22 15:18 EDT\.br\Electronically [...] these instructions at home: Medicines ? Take tlco-bmw-vhekqif and prescription medicines only as told by [...] 03/19/2009 Document Revised: 09/18/2019 Document Reviewed: 04/10/2019 [employer] Patient Education ? 2019 [employer]. Normal [facility] Urinalysis - AUTOMATEDon Appearance (U) clear [employer] Other Bilirubin Ql (U) Negative [employer] Other Color (U) orange yellow [facility] Other Glucose Ql (U) 100 [employer] Other Hemoglobin Ql (U) small [employer] Other Ketones Ql (U) trace [employer] Other Nitrite Ql (U) Positive [employer] Other pH (U) 6.5 [pH] [facility] Other Protein Ql (U) trace [employer] Other Specific gravity (U) [Rel density] 1.025 [facility] Other Urobilinogen (U) [Mass/Vol] 1.0 mg/dL [facility] [employer] Other Urinalysis - AUTOMATED No rth [facility] [employer] Other Urine Cultureon 01-01-2022 Bacteria identified Cx Nom (U) Reason for Exam Dysuria Urine Reason for Exam: Dysuria : Urine No Growth 2 Days PERFORMED BY: [place] [id number] PATHOLOGIST CREDIT UNION MANAGER DENIS MULLER M.D. Normal [facility] Comment on above: Performed By: #### C UU #### [address] Office Visit (Cardiology)on 11-09-2021 Follow-up visit [...] Vital Signs Recorded: 09Nov2021 02:37PMRecorded: 09Nov2021 02:32PM Fqphishc500, LUE, Rowjgiv160, LUE, Sitting Qaanrvysz11, LUE, Ygmixlb75, LUE, Sitting Heart Rate69, L Brachial Artery Height5 ft 7 in Kmjasi551 lb BMI Htmeydqcft58.96 kg/m2 BSA Calculated2.17 Tobacco Useb) No Fall Screeningc) Not medical (more content not included)... Normal [facility] Tobacco Screening.on 022 Fall risk assessment c) Not medically indicated [facility] [employer] 250 DO Work Phone: Tobacco use status [facility] b) No M [facility] 250 DO Work Phone: COVID Quick Testingon 2020 Result Negative [facility] [employer] Other [facility] CARDIAC STRESS/REST INJE CTIONon 04-05-2021 [facility] CARDIAC STRESS/REST INJECTION Patient Name: CASEY ZAMORA STUDY: MYOCARDIAL PERFUSION STRESS TEST WITH EXERCISE Performing facility: [facility], [address] [place] [address], [address] [address] [facility] Provider: Joao Colmenares MD PCP: Dr. Beatrice Arriaga Supervising provider: Joao Colmenares MD INDICATION: Abnormal EKG; Palpitations NSVT HISTORY: Gender: F; Age: 50 y/o ; Height: 170.18 cm; Weight: 761.6513279 kg. HTN; Palpitations; SOB; Denies smoking. COMPARISON: No comparison. ACCESSION NUMBER(S): [id number]; [id number]; [id number] ORDERING CLINICIAN: JOAO COLMENARES TECHNIQUE: TWO DAY [...] comparison. Electronically signed by: JOAO COLMENARES MD [facility] Vital Signs Date Time Vital Sign Value Performing Clinician Facility 02-19-2023 16:30-0400 Body height 170.18 cm Grady Arriaga Other [facility] Other 02-19-2023 16:30-0400 Body mass index (BMI) [Ratio] 25.12 kg/m2 Grady [employer] Other [facility] Other 02-19-2023 16:30-0400 Body weight 72.76 kg Grady Ball Other [facility] Other 02-19-2023 16:30-0400 Diastolic blood pressure 87 mm[Hg] Grady Ball Other [facility] Other 02-19-2023 16:30-0400 Respiratory rate 12 /min Grady Ball Other [facility] Other 02-19-2023 16:30-0400 Systolic blood pressure 146 mm[Hg] Grady Ball Other [facility] Other 11-20-2022 11:50-0500 Body height 170.18 cm Clare Crawfordmond Other [facility] Other 11-20-2022 11:50-0500 Body mass index (BMI) [Ratio] 24.68 kg/m2 Clare Crawfordmond Other [facility] Other 11-20-2022 11:50-0500 Body temperature 98.2 [degF] Clare Crawfordmond Other [facility] Other 11-20-2022 11:50-0500 Body weight 71.49 kg Clare Crawfordmond Other [facility] Other 11-20-2022 11:50-0500 Respiratory rate 18 /min Clare Margoth Other [facility] Other 11-20-2022 11:50-0500 SaO2% (BldA) [Mass fraction] 97 % Clare Margoth Other [facility] Other 07-18-2022 13:41-0400 Body height 170.18 cm Grady Feng Ball Work Phone: [facility] 250 DO Work Phone: 07-18-2022 13:41-0400 Body mass index (BMI) [Ratio] 28.54 kg/m2 Grady E Ball Work Phone: [facility] 250 DO Work Phone: 07-18-2022 13:41-0400 Body surface area Derived from formula 1.94 m2 Grady E Ball Work Phone: [facility] 250 DO Work Phone: 07-18-2022 13:41-0400 Body weight 82.67 kg Grady E Ball Work Phone: [facility] 250 DO Work Phone: 07-18-2022 13:41-0400 Diastolic blood pressure 82 mm[Hg] Grady E Ball Work Phone: [facility] 250 DO Work Phone: 07-18-2022 13:41-0400 Heart rate 68 /min Grady E Ball Work Phone: [facility] 250 DO Work Phone: 07-18-2022 13:41-0400 Systolic blood pressure 130 mm[Hg] Grady E Ball Work Phone: [facility] 250 DO Work Phone: 02-21-2022 14:42-0400 Blood Pressure Location MABLEOBDULIA MACIASRY [facility] [place] 02-21-2022 14:42-0400 Diastolic blood pressure 84 mm[Hg] MABLE DESHPANDE [facility] [place] 02-21-2022 14:42-0400 Heart rate 84 /min MABLE DESHPANDE [facility] [place] 02-21-2022 14:42-0400 Systolic blood pressure 123 mm[Hg] MABLE DESHPANDE [facility] [place] 01-01-2022 15:45-0400 Body height 170.18 cm Clare Margoth Other [facility] Other 01-01-2022 15:45-0400 Body mass index (BMI) [Ratio] 34.45 kg/m2 Clare Margoth Other [facility] Other 01-01-2022 15:45-0400 Body temperature 97.8 [degF] Clare Margoth Other [facility] Other 01-01-2022 15:45-0400 Body weight 99.79 kg Clare Margoth Other [facility] Other 01-01-2022 15:45-0400 Diastolic blood pressure 86 mm[Hg] Clare Margoth Other [facility] Other 01-01-2022 15:45-0400 Respiratory rate 18 /min Clare Margoth Other [facility] Other 01-01-2022 15:45-0400 SaO2% (BldA) [Mass fraction] 100 % Clare Margoth Other [facility] Other 01-01-2022 15:45-0400 Systolic blood pressure 129 mm[Hg] Clarecindy Justin Other [facility] Other 11-09-2021 14:37-0500 Diastolic blood pressure 90 mm[Hg] Grady E Ball Work Phone: [facility] [employer] 250 DO Work Phone: 11-09-2021 14:37-0500 Systolic blood pressure 142 mm[Hg] Grady E Ball Work Phone: [facility] [employer] 250 DO Work Phone: 11-09-2021 14:32-0500 Body height 170.18 cm Grady E Ball Work Phone: [facility] [employer] 250 DO Work Phone: 11-09-2021 14:32-0500 Body mass index (BMI) [Ratio] 36.96 kg/m2 Grady E Ball Work Phone: [facility] [employer] 250 DO Work Phone: 11-09-2021 14:32-0500 Body surface area Derived from formula 2.17 m2 Grady E Ball Work Phone: [facility] [employer] 250 DO Work Phone: 11-09-2021 14:32-0500 Body weight 107.05 kg Grady E Ball Work Phone: [facility] [employer] 250 DO Work Phone: 11-09-2021 14:32-0500 Diastolic blood pressure 89 mm[Hg] Grady E Ball Work Phone: [facility] [employer] 250 DO Work Phone: 11-09-2021 14:32-0500 Heart rate 69 /min Grady E Ball Work Phone: [facility] [employer] 250 DO Work Phone: 11-09-2021 14:32-0500 Systolic blood pressure 146 mm[Hg] Grady E Ball Work Phone: [facility] [employer] 250 DO Work Phone: 08-03-2021 15:45-0400 Body height 170.18 cm Clare Justin Other [facility] Other 08-03-2021 15:45-0400 Body mass index (BMI) [Ratio] 37.59 kg/m2 Clare Justin Other [facility] Other 08-03-2021 15:45-0400 Body temperature 99.2 [degF] Clare Justin Other [facility] Other 08-03-2021 15:45-0400 Body weight 108.86 kg Clare Justin Other [facility] Other 08-03-2021 15:45-0400 Respiratory rate 18 /min Clare Justin Other [facility] Other 08-03-2021 15:45-0400 SaO2% (BldA) [Mass fraction] 97 % Clare Justin Other [facility] Other Encounters Encounter Date Encounter Type Care Provider Facility Start: 02-01-2024 End: 02-01-2024 ambulatory [facility] Work Phone: Start: 02-01-2024 End: 02-01-2024 Patient encounter procedure [facility] Work Phone: Start: 01-08-2024 Non-patient / Non-visit [facility] Work Phone: Start: 11-13-2023 End: 11-13-2023 ambulatory Grady Arriaga Other [facility] Other Start: 11-13-2023 Telephone encounter Grady MURO [facility] Start: 08-21-2023 End: 08-21-2023 ambulatory Grady Arriaga Other [facility] Other Start: 08-21-2023 Nursing evaluation o f patient and report Grady Arriaga [facility] Start: 07-11-2023 End: 07-11-2023 ambulatory Grady Arriaga Other [facility] Other Start: 07-11-2023 Telephone encounter Grady Bart [facility] Start: 05-28-2023 End: 05-28-2023 ambulatory Grady Arriaga Other [facility] Other Start: 05-28-2023 Office outpatient vi sit 15 minutes Grady Arriaga [facility] Start: 05-02-2023 End: 05-02-2023 ambulatory Grady Arriaga Other [facility] Other Start: 05-02-2023 Nursing evaluation o f patient and report Grady Arriaga [facility] Start: 02-19-2023 End: 02-19-2023 ambulatory Grady Arriaga Other [facility] Other Start: 02-19-2023 Office outpatient vi sit 15 minutes Grady Arriaga [facility] Start: 02-07-2023 End: 02-08-[address] GRADY ARRIAGA Facility:[facility] Start: 01-23-2023 End: 01-23-2023 ambulatory Grady Bart Other [facility] Other Start: 01-23-2023 Telephone encounter Grady Bart [facility] Start: 12-20-2022 End: 12-20-2022 ambulatory Grady Bart Other [facility] Other Start: 12-20-2022 Nursing evaluation o f patient and report Grady Arriaga [facility] Start: 12-05-2022 End: 12-06-[address] GRADY ARRIAGA Facility:[facility] Start: 11-30-2022 End: 02-17-[address] MADHURI TAYLOR . Facility:[facility] Start: 11-29-[address] GRADY ARRIAGA Facili ty:[facility] Start: 11-20-2022 End: 11-20-2022 ambulatory Clare Margoth Other [facility] Other Start: 11-20-2022 Office outpatient vi sit 15 minutes Clare Justin [facility] Start: 11-16-2022 (Televisit) [facility] Start: 11-16-2022 End: 11-16-2022 ambulatory Gela Ortiz Other [facility] Other Start: 10-25-2022 End: 10-26-[address] MADHURI TAYLOR . Facility:[facility] Start: 10-11-2022 End: 10-12-[address] MADHURI TAYLOR . Facility:[facility] Start: 10-11-2022 End: 10-12-[address] GRADY ARRIAGA Facility:[facility] Start: 09-30-2022 Encounter for genera l adult medical examination without abnormal findings DR GRADY ARRIAGA [facility] Start: 09-25-2022 End: 09-26-[address] GRADY ARRIAGA Facility:[facility] Start: 09-25-2022 End: 09-26-2022 Encounter for general adult medical examination without abnormal findings DR GRADY ARRIAGA Facility:[facility] Start: 09-01-2022 Adult health examination Guero Arriaga Other [facility] Other Start: 09-01-2022 Gynecological examination catie Arriaga Other [facility] Other Start: 07-18-2022 Office outpatient vi sit 15 minutes Grady Arriaga Work Phone: [facility] [address] DO Work Phone: Start: 07-18-[address] Joao Colmenares Facility: Start: 07-15-2022 End: 07-15-2022 ambulatory KELLY CAMP . Facility:[facility] Start: 03-02-2022 End: 03-02-2022 Patient encounter procedure Yinka OJEDA [facility] Start: 02-21-2022 End: 02-21-2022 Patient encounter procedure MABLE DESHPANDE [facility] Start: 01-01-2022 End: 01-01-2022 ambulatory Clare Justin Other [facility] Other Start: 01-01-2022 Office outpatient vi sit 15 minutes Clare Justin [facility] Start: 11-09-2021 Office outpatient vi sit 25 minutes Grady Arriaga Work Phone: [facility] [address] DO Work Phone: Start: 11-09-2021 ambulatory [...] Joao Colmenares, Status: Pen, Time: 2:00 PM [place] [address] DO Work Phone: Start: 07-18-2022 FUV, Provider: Joao Colmenares, Status: Pen, Time: 1:40 PM FUV, Provider: Joao Colmenares, Status: Pen, Time: 1:40 PM [place] [address] DO Work Phone: Immunizations Immunization Date Immunization Notes Care Provider Fa frances 01-27-2021 Pfizer-BioNTech COVI D-19 Vacc 30 MCG/0.3ML Intramuscular Suspension Grady Feng Bart Work Phone: [place] [address] DO Work Phone: 01-05-2021 Pfizer-BioNTech COVI D-19 Vacc 30 MCG/0.3ML Intramuscular Suspension Grady Arriaga Work Phone: [place] [address] DO Work Phone: 11-21-2016 influenza, intraderm al, quadrivalent, preservative free, injectable Grady Arriaga Work Phone: [place] [address] DO Work Phone: 11-21-2016 tetanus toxoid, redu evie diphtheria toxoid, and acellular pertussis vaccine, adsorbed Grady Arriaga Work Phone: [place] [address] DO Work Phone: 08-24-2009 novel influenza-H1N1 -09, preservative-free, injectable Grady Arriaga Work Phone: [place] [address] DO Work Phone: Payers Date Payer Category Payer Unknown [id number]. 356 1969 Unknown [id number] .[id number]. 356 1969 Unknown [id number] 2.16.840.1.690720.3.579.2. 593 1969 Unknown [id number] 2.16.840.1.167263.3.579.2. 593 1969 Unknown [id number] 2.16.840.1.595622.3.579.2. 593 1969 Unknown [id number] 2.16.840.1.116056.3.579.2. 593 1969 Unknown [id number] 2.16.840.1.110664.3.579.2. 593 1969 Unknown [id number] 2.16.840.1.336826.3.579.2. 593 1969 Unknown [id number] 2.16.840.1.038757.3.579.2. 593 1969 Unknown [id number] 2.16.840.1.642475.3.579.2. 593 1969 Unknown [id number] 2.16.840.1.202926.3.579.2. 593 1959 Medicaid [id number] 1960 Self-pay 1960 Unknown [id number] [place] [id number] Unknown [facility] Social History Date Type Detail Facility No alcohol use No alcohol use [facility] Other Start: 05-03-2018 End: 02-21-2022 Tobacco smoking status Never smoked tobacco (finding) [facility] Tobacco smoking status Never [facility] [place] Sex Assigned At Female [facility] Other Start: 1970 Sex Assigned At Female [facility] Clinical Notes 08-03-2021 to 08-21-2023 Note Date & Type Note Facility 08-21-2023 Evaluation note Encounter Date Diagnosis Assessment Notes Aug, Seasonal allergies (ICD-10 - J30.2) [facility] Other 08-14-2023 Evaluation note* Encounter Date Diagnosis Assessment Notes Treatment Notes Treatment Clinical Notes May, Acute bacterial conjunctivitis of left eye (ICD-10 - H10.32) Use artificial tears as much as possible. Use warm washcloth to remove crusting debris from lashes May, Dysfunction of left eustachian tube (ICD-10 - H69.92) Flonase and Claritin D. Valsalva to open ET [facility] Other 07-19-2023 Evaluation note* Encounter Date Diagnosis Assessment Notes Treatment Notes Treatment Clinical Notes Apr, Seasonal allergic rhinitis, unspecified trigger (ICD-10 - J30.2) [facility] Other 05-08-2023 Evaluation note* Encounter Date Diagnosis [...] Other Healthy diet, exercise and keep active [facility] Other 04-26-2023 NotePROCEDURE: XR FOOT RT MIN [...] Electronically authenticated by: LAM DORSEY Date: 2023-02-07 12:23[facility]04-26-2023 NotePROCEDURE: XR ANKLE RT MIN 3 VIEWS DATE: 02/07/2023 10:24 AM CDT COMPARISONS: None CLINICAL INDICATION: Right ankle pain. FINDINGS: There is no evidence of fractures or other osseous abnormalities. The ankle mortise is intact. IMPRESSION: Right ankle radiographs show no evidence of significant abnormalities. Electronically authenticated by: LAM DORSEY Date: 2023-02-07 12:19[facility]03-08-2023 Evaluation note* Encounter Date Diagnosis Assessment Notes Treatment Notes Treatment Clinical Notes Dec, Seasonal allergic rhinitis, unspecified trigger (ICD-10 - J30.2) [facility] Other 02-06-2023 Evaluation note* Encounter Date Diagnosis [...] no improvement in 2 to 3 days. [facility] Other 02-02-2023 Evaluation note* Encounter Date Diagnosis Assessment Notes Treatment Notes Treatment Clinical Notes Nov, Acute cystitis without hematuria (ICD-10 - N30.00) Discussed that bactrim could address her sinusitis symptoms as well. Take tylenol for body aches. Pt unable to provide a UA due to her work responsibilties. [facility] Other 05-19-2022 Note [id number]:[address] [place] [address] 03-02-2022 NoteCystoscopy with Urethral Dilation ? Voiding [...] if you have a fever over [facility] Discharge instructions Patient Education 03/02/2022 11:06:17 [...] Up Care 02/21/2022 15:13:40 With:MABLE DESHPANDE Address: [address] [place] [address]. [place] [address] [facility] (1) When:6 weeks Comments:Call for followup appointment. Please finish your antibiotics. Monitor the urinary pattern after the dilation today. [facility]05-09-2022 Hospital Discharge instructions Patient Education 02/20/2022 14:38:38 Urinary Tract Infection, Adult, Cbbj-[id number]-Qiay Urinary Tract Infection, Adult A urinary tract [...] Follow these instructions at home: Medicines Take jisc-cir-rraorjr and prescription medicines only as told by [...] 03/19/2009 Document Revised: 09/18/2019 Document Reviewed: 04/10/2019 [employer] Patient Education 2020 [employer]. Follow Up Care 01/31/2022 10:31:51 With:MABLE DESHPANDE PA-C, URL Address: [address] [place] [address] [facility] [place] [address] When: Unknown Comments:Will schedule Cysto [facility] 03-20-2022 Evaluation note* Encounter Date Diagnosis Assessment Notes Treatment Notes Treatment Clinical Notes Dec, Dysuria (ICD-10 - R30.0) Dec, Urinary tract infection, site not specified (ICD-10 - N39.0) Drink plenty fluids, get plenty of rest. Take the Macrobid as prescribed until gone. Take the Diflucan as prescribed until gone. Continue to take the hpzr-dhx-zythpui Azo for your symptoms. Follow-up with your physician if no improvement in 2 to 3 days. Dec, Hematuria, unspecified (ICD-10 - R31.9) [facility] Other 10-20-2021 Evaluation note* Encounter Date Diagnosis [...] Patient care instructions given in writting by [facility] Care At Home document. [facility] Other Evaluation + Plan note Future Appointments Appointment Date:02/23/2022 09:45:00 AM Scheduled Provider: Location:[facility] Appointment Type:Urology CALL PAT FT Appointment Date:03/02/2022 11:00:00 AM Scheduled Provider: Location:[facility] Appointment Type:Urology FT [facility] Evaluation + Plan note Future Appointments Appointment Date:04/13/2022 03:15:00 PM Scheduled Provider:MABLE DESHPANDE PA-C Location[facility] noteNo InformationNort Dittit Other Evaluation noteNo assessment information available [facility] Work Phone: History general Narrative - Reported* Type Description Date Medical History Hypertension Medical History ADHD Medical History chronic depression Medical History heart palpitations Surgical History C section Surgical History hysterectomy Surgical History appendectomy Hospitalization History see above [facility] Other Hisdglm general Narrative - Reported* Type Description Date [...] History appendectomy 2010 Hospitalization History see above [facility] Other History of Present illness Narrative* Patient [...] month or earlier if the need arise [facility] [employer] DO Work Phone: History of Present illness [...] year with plan to repeat her EKG [facility] [employer]Deem DO Work Phone: Hospital course Narrative No data available for this section [facility] [employer] Summary Purpose Family History Unknown Family Member [...] section and content) DATE CREATED AUTHOR 04/09/2021 [facility] DATE CREATED AUTHOR AUTHOR'S ORGANIZ ATION 01/05/2022 [facility] DATE CREATED AUTHOR AUTHOR'S ORGANIZ ATION 06/09/2022 [facility] DATE CREATED AUTHOR AUTHOR'S ORGANIZ ATION 07/19/2022 [facility] DATE CREATED AUTHOR AUTHOR'S ORGANIZ ATION 07/19/2022 [employer] DATE CREATED AUTHOR AUTHOR'S ORGANIZ ATION 02/16/2023 [facility] REASON FOR VISIT (unrecogniz ed [...] BE BASED ON THE PRIMARY CLINICAL RECORDS. [facility]. provides no warranty or guarantee of the accuracy or completeness of information in this document.
[2024-03-27 09:30] LABS: Basophils Percent Auto 1.2 % (0.2-2.0); Eosinophils Percent Auto 1.2 % (0.9-7.0); Hematocrit 33.4 % (36.0-48.0); Hemoglobin 11.1 g/dL (12.0-16.0); Lymphocytes Absolute Auto 1.1 10^3/uL (1.2-3.8); Lymphocytes Percent Auto 32.4 % (20.5-60.0); Mean Corpuscular HGB Conc 33.2 g/dL (29.9-35.2); Mean Corpuscular Hemoglobin 31.3 pg (26.7-34.0); Mean Corpuscular Volume 94.1 fL (81.0-99.0); Mean Platelet Volume 8.8 fL (9.5-13.5); Monocytes Absolute Auto 0.4 10^3/uL (0.3-0.8); Monocytes Percent Auto 10.6 % (1.7-12.0); Neutrophils Absolute Auto 1.8 10^3/uL (1.4-6.5); Neutrophils Percent Auto 54.6 % (43.0-75.0); Platelet Count 393 10^3/uL (150-450); Red Blood Count 3.55 10^6/uL (4.20-5.40); Red Cell Distribution Width 11.9 % (11.0-15.0); White Blood Count 3.3 10^3/uL (4.0-11.0)
[2024-03-27 09:59] LABS: Estimated Average Glucose 105 mg/dL; Glycohemoglobin A1C 5.3 % (4.5-6.2)
[2024-03-27 10:02] LABS: Alanine Aminotransferase 24 U/L (14-59); Albumin Globulin Ratio 0.7; Alkaline Phosphatase 93 U/L (46-116); Anion Gap 12.3; Aspartate Amino Transferase 22 U/L (15-37); BUN Creatinine Ratio 18.8; Bilirubin Total 0.6 mg/dL (0.2-1.0); Carbon Dioxide 30.3 mmol/L (21.0-32.0); Chloride 104 mmol/L (98-107); Chol HDL Ratio 3.9; Cholesterol 212 mg/dL (<=200); Estimated GFR (African America >60 (>=60); Estimated GFR (Non-African Ame >60 (>=60); Globulin 4.2 g/dL; Glucose 103 mg/dL (74-106); HDL Cholesterol 55 mg/dL (40-60); Potassium 3.6 mmol/L (3.5-5.1); Sodium 143 mmol/L (136-145); Total Protein 7.2 g/dL (6.4-8.2); Triglycerides 72 mg/dL (<=150); VLDL CHOLESTEROL 14.4 mg/dL
== END 2024-03-27 09:18 | disposition home or self-care (01) ==
LOC: LAB 09:17
PROVIDERS: PCP Internal Medicine; Visit Provider Internal Medicine
DX: Z00.00 Encounter for general adult medical examination without abnormal findings (principal)
CPT/HCPCS: 36415; 80053; 80061; 83036; 85025

== ENCOUNTER 2024-06-05 18:44 | Outpatient (REF) | payer BC, SELFPAY ==
--- OUTSIDE RECORDS SUMMARY | 2024-06-05 18:51 | XMS_ITS | CCD ---
Author Organization [facility] Care Team Providers Care Associate Producer Name Role Phone Pippa Grady Toney Unavailable Unavailable Unavailable GRADY ARRIAGA Primary Care Physician Clare Justin Unavailable Dedra, Dr. Ulrich Referring Unavaila Grady Jaime Primary Care Unavailchago Colmenares, Dr. Ulrich Attending Unavaila madhuri Colmenares, Dr. Ulrich Referring Unavaila ble Grady Arriaga [place] [facility] Unavailabl e Dedra, Dr. Ulrich Attending Unavaila ble Gela Ortiz Unavailable Grady Arriaga Unavailable PIPPA, DR GAINES Primary Care Unavailable JUAN ., DR DHALIWAL Consulting Unavailable JUAN ., DR DHALIWAL Attending Unavailable JUAN ., DR DHALIWAL Admitting Unavailable JUAN ., DR DHALIWAL Admitting Unavailable JUAN ., DR DHALIWAL Attending Unavailable PIPPA, DR GAINES Primary Care Unavailable SPAVINAW, DR CARLOS Gipson Consulting Unavailable JUAN ., DR DHALIWAL Consulting Unavailable JUAN ., DR DHALIWAL Admitting Unavailable JUAN ., DR DHALIWAL Consulting Unavailable JUAN ., DR DHALIWAL Attending Unavailable PIPPA, DR GAINES Primary Care Unavailable KELLY GARVEY Attending Unavailable ZOË Delacruz, KELLY Admitting Unavailable PIPPA, DR GAINES Primary Care Unavailable CARLOS RUBI Consulting Unavailable ZOË Delacruz, KELLY Consulting Unavailable ADAIR SCHMITT Consulting Unavaila ble PIPPA, DR GAINES Attending Unavailable PIPPA, DR GAINES Admitting Unavailable PIPPA, DR GAINES Primary Care Unavailable JUAN ., DR DHALIWAL Admitting Unavailable JUAN ., DR DHALIWAL Consulting Unavailable JUAN ., DR DHALIWAL Attending Unavailable PIPPA, DR GAINES Primary Care Unavailable PIPPA, DR GAINES Admitting Unavailable PIPPA, DR GAINES Primary Care Unavailable PIPPA, DR GAINES Consulting Unavailable PIPPA, DR GAINES Attending Unavailable PIPPA, DR GAINES Admitting Unavailable PIPPA, DR GAINES Primary Care Unavailable PIPPA, DR GAINES Consulting Unavailable PIPPA, DR GAINES Attending Unavailable PIPPA, DR GAINES Primary Care Unavailable KEKE, JOSIAH De Los Santos Consulting Unavailable KEKE, JOSIAH De Los Santos Attending Unavailable KEKE, JOSIAH De Los Santos Admitting Unavailable LAM DORSEY Consulting Unavailable JAGUAR PERKINS Attending Unavailable Allergies Allergy Classification Reported Allergen(s) Allergy Type Date of Onset Reaction(s) Facility (3 sources) patient allergy list reviewed by nurse or physicia Propensity to adverse reactions 8 Comment:Done [facility] Other (3 sources) NONE CURRENT Propensity to adverse reactions 0 NONE CURRENT [facility] Other (3 sources) Allergies Reconciled Propensity to adverse reactions Unknown [facility] Other Medications Current Medications Medication Drug Class(es) [...] orally bid for 10 day(s) Jul, Active azithromycin 250 mg oral tablet (1 source) Macrolide Antimicrobial Start: 02-01-2024 Azithromycin Active 250 MG PO As Directed 6 February 01, 2024 12:00am cephalexin 500 mg oral capsule (2 sources) [...] procedure, # 2 tab(s), Refills(s) 0, Pharmacy: [facility], 169, cm, 02/28/22 9:30:00 EDT, Height/Length Dosing, 95, kg, 02/21/22 14:43:00 EDT, Marciano... Start Date: 02/28/22 Status: Ordered Claritin-D 24 Hour 10-240 MG (1 source) Start: 05-28-2023 take 10-240 mg by mouth once daily Claritin-D 24 Hour 10-240 MG 1 tablet Orally Once a day for 30 days May, Active dexamethasone 1 mg/ml / neomycin 3.5 mg/ml / polymyxin b 12800 unt/ml ophthalmic suspension (1 source) Aminoglycoside Antibacterial, Polymyxin-class Antibacterial, Corticosteroid Start: 11-30-2020 take 2 drop(s) into the eye(s) four times daily Maxitrol 3.5-00460-0.1 2 drops into affected eye Ophthalmic Four [...] / losartan potassium 50 mg oral tablet (16 sources) Thiazide Diuretic, Angiotensin 2 Receptor Ophelia [...] May, Active LORazepam 0.5 mg oral tablet (3 sources) Benzodiazepine Start: 01-08-2024 take 0.5 mg [...] succinate 25 mg extended release oral tablet (18 sources) beta-Adrenergic Ophelia Start: 024 take 25 mg by mouth once daily Metoprolol Succinate Active 25 MG PO Daily January 08, 2024 12:00am Start: 05-24-2021 take 1 mg by mouth once daily Toprol XL 25 mg Tab-ER mg tab(s), Oral, Daily, Refills(s) 0 Start Date: 02/21/22 Status: Ordered take [facility] daily Metoprolol Succinate 25 MG 1 capsule Orally Once a day Active Metoprolol Succi sigrid Active pantoprazole (15 sources) Proton Pump Inhibitor Start: 01-08-2024 take [...] Ordered take 1 tablet by daysi th once daily in the morning Pantoprazole Sodium [...] chloride 20 meq extended release oral tablet (16 sources) Start: 01-08-2024 take 1 tablet by [...] 04-Jul-2021 Active take 1 tablet by daysi once daily Potassium Chloride Gina ER 20 [...] Active sulfacetamide sodium 100 mg/ml ophthalmic solution (4 sources) Sulfonamide Antibacterial Start: 02-01-2024 take 1 drop(s) into the eye(s) four times daily Sulfacetamide Sodium Active 2 DROPS EYE-BOTH Four times daily 02 18February 01, 2024 12:00am Start: 05-28-2023 take 2 drop(s) into the [...] sources) Dizziness; Translations: [Dizziness and giddiness] Episodic Deficiency and other anemia (1 source) Anemia; Translations: [Anemia, unspecified] 03-27-2024 Episodic Diabetes mellitus without complication (14 sources) [...] 05-05-2015 Episodic Other aftercare (1 source) Other usp (current) drug therapy; 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] Onset: 07-18-2022 Episodic Other [...] Test Name Value Interpretation Reference Range Facility Basophils Auto (Bld) [#/Vol] on 03-27-2024 Basophils (Bld) [#/Vol] 0.0 10 3/uL 0.0-0.1 [facility] Basophils/100 WBC Auto (Bld) on 03-27-2024 Basophils/100 WBC (Bld) 1.2 % 0.2-2.0 [facility] Cholesterol in LDL Calc [Mas s/Vol]on 03-27-2024 Cholesterol in LDL [Mass/Vol] 143.0 mg/dL [facility] Comment on above: <100 mg/dl [id number] 0-129 mg/dl NEAR OR ABOVE [id number] mg/dl BORDERLINE [id number] mg/dl HIGH>190 mg/dl VERY HIGH Cholesterol in VLDL Calc [Ma ss/Vol]on 03-27-2024 Cholesterol in VLDL [Mass/Vol] 14.4 mg/dL [facility] Eosinophils/100 WBC Auto (Bl d)on 03-27-2024 Eosinophils/100 WBC (Bld) 1.2 % 0.9-7.0 [facility] Erythrocyte distribution wid th Auto (RBC) [Ratio]on 03-27-2024 Erythrocyte distribution width (RBC) [Ratio] 11.9 % 11.0-15.0 [facility] Estimated glomerular filtrat ion rate (GFR) non- Americanon 03-27-2024 GFR/1.73 sq M.predicted among non-blacks MDRD (S/P/Bld) [Vol rate/Area] mL/min/{1.73_m2} >=60 [facility] Globulin Calc (S) [Mass/Vol] on 03-27-2024 Globulin (S) [Mass/Vol] 4.2 g/dL [facility] Glucose mean value [Mass/vol ume] in Blood Estimated from glycated hemoglobinon 03-27-2024 Average glucose Estimated from glycated hemoglobin (Bld) [Mass/Vol] 105 mg/dL [facility] Hematocrit Auto (Bld) [Volum e fraction]on 03-27-2024 Hematocrit (Bld) [Volume fraction] 33.4 % Low 36.0-48.0 [facility] Hemoglobin [Mass/volume] in Bloodon 03-27-2024 Hemoglobin (Bld) [Mass/Vol] 11.1 g/dL Low 12.0-16.0 [facility] Laboratory - Chemistry and C hemistry - challengeon 03-27-2024 Albumin [Mass/Vol] 3.0 g/dL Low 3.4-5.0 [facility] ALP [Catalytic activity/Vol] 93 U/L 46-116 [facility] ALT [Catalytic activity/Vol] 24 U/L 14-59 [facility] AST [Catalytic activity/Vol] 22 U/L 15-37 [facility] Bilirubin [Mass/Vol] 0.6 mg/dL 0.2-1.0 [facility] Calcium [Mass/Vol] 9.0 mg/dL 8.5-10.1 [facility] Chloride [Moles/Vol] 104 mmol/L 98-107 [facility] Cholesterol [Mass/Vol] 212 mg/dL High <=200 [facility] Cholesterol in HDL [Mass/Vol] 55 mg/dL 40-60 [facility] Comment on above: > or =60 mg/dl - LOW CARDIOVASCULAR RISK<40 mg/dl - HIGH CARDIOVASCULAR RISK CO2 [Moles/Vol] 30.3 mmol/L 21.0-32.0 [facility] Creatinine [Mass/Vol] 0.80 mg/dL 0.55-1.02 [facility] GFR/1.73 sq M.predicted MDRD (S/P/Bld) [Vol rate/Area] mL/min/{1.73_m2} >=60 [facility] Glucose [Mass/Vol] 103 mg/dL 74-106 [facility] Potassium [Moles/Vol] 3.6 mmol/L 3.5-5.1 [facility] Protein [Mass/Vol] 7.2 g/dL 6.4-8.2 [facility] Sodium [Moles/Vol] 143 mmol/L 136-145 [facility] Triglyceride [Mass/Vol] 72 mg/dL <=[address] [facility] Urea nitrogen [Mass/Vol] 15.0 mg/dL 7.0-18.0 [facility] Urea nitrogen/Creatinine [Mass ratio] 18.8 mg/mg [facility] Laboratory - Hematology and Cell countson 03-27-2024 HbA1c (Bld) [Mass fraction] 5.3 % 4.5-6.2 [facility] Comment on above: ADA RECOMMENDED LIMI T 4.0 - 6.0ADA THERAPEUTIC TARGET < 7.0ACTION SUGGESTED> 7.0 Immature granulocytes/100 WBC (Bld) 0.0 % 0.0-0.5 [facility] Leukocytes [#/volume] correc abraham for nucleated erythrocytes in Blood by Automated counon 03-27-2024 WBC corrected for nucl RBC Auto (Bld) [#/Vol] 3.3 10 3/uL Low 4.0-11.0 [facility] Lymphocytes Auto (Bld) [#/Vo l]on 03-27-2024 Lymphocytes (Bld) [#/Vol] 1.1 10 3/uL Low 1.2-3.8 [facility] Lymphocytes/100 WBC Auto (Bl d)on 03-27-2024 Lymphocytes/100 WBC (Bld) 32.4 % 20.5-60.0 [facility] MCH Auto (RBC) [Entitic mass ]on 03-27-2024 MCH (RBC) [Entitic mass] 31.3 pg 26.7-34.0 [facility] MCHC Auto (RBC) [Mass/Vol]on 03-27-2024 MCHC (RBC) [Mass/Vol] 33.2 g/dL 29.9-35.2 [facility] MCV Auto (RBC) [Entitic vol] on 03-27-2024 MCV (RBC) [Entitic vol] 94.1 fL 81.0-99.0 [facility] Monocytes Auto (Bld) [#/Vol] on 03-27-2024 Monocytes (Bld) [#/Vol] 0.4 10 3/uL 0.3-0.8 [facility] Monocytes/100 WBC Auto (Bld) on 03-27-2024 Monocytes/100 WBC (Bld) 10.6 % 1.7-12.0 [facility] Neutrophils Auto (Bld) [#/Vo l]on 03-27-2024 Neutrophils (Bld) [#/Vol] 1.8 10 3/uL 1.4-6.5 [facility] Neutrophils/100 WBC Auto (Bl d)on 03-27-2024 Neutrophils/100 WBC (Bld) 54.6 % 43.0-75.0 [facility] No Panel Informationon 03-27 Eosinophils # (Auto) 0.0 10 3/uL 0.0-0.7 [facility] Immature Granulocyte # (Auto) 0.00 10 3/uL 0.00-0.03 [facility] Platelet mean volume Auto (B ld) [Entitic vol]on 03-27-2024 Platelet mean volume (Bld) [Entitic vol] 8.8 fL Low 9.5-13.5 [facility] Platelets Auto (Bld) [#/Vol] on 03-27-2024 Platelets (Bld) [#/Vol] 393 10 3/uL 150-450 [facility] RBC Auto (Bld) [#/Vol]on RBC (Bld) [#/Vol] 3.55 10 6/uL Low 4.20-5.40 [facility] Serum or plasma albumin/glob ulin mass ratioon 03-27-2024 Albumin/Globulin [Mass ratio] 0.7 {ratio} [facility] Serum or plasma anion gap de terminationon 03-27-2024 Anion gap [Moles/Vol] 12.3 mmol/L [facility] Serum or plasma total choles terol/high density lipoprotein (HDL) cholesterol mass hussain 03-27-2024 Cholesterol.total/Natalee sterol in HDL [Mass ratio] 3.9 {ratio} [facility] Comment on above: 3.3 - 4.4 LOW RISK4. 4 - 7.1 AVERAGE RISK7.1 - 11.0 MODERATE RISK>11.0 HIGH RISK Fibrin D-dimer [Presence] in Platelet poor plasma by Latex agglutinationon 03-26-2024 Fibrin D-dimer LA Ql (PPP) 1.05 mg/L FEU High <=0.59 [facility] Comment on above: RESULTS CALLED TO SELENA SINGLETON RN @BY Natalie Penny at 0123Increases in D-Dimer concentration observed withthromboembolic events can be variable due to localization,size, and age of the thrombus. Therefore, a thromboembolicevent cannot be diagnosed with certainty on the basis of thereference range. D-Dimers may also be elevated for a varietyof disorders including advanced age, , coronarydisease, cancer, liver disease, infection, inflammation,hematoma, DIC, trauma, post-surgery, diabetes, thrombolyticor anticoagulant therapy, stress, and generalizedhospitalization. DIHYDROTESTOSTERONEon 2022 Dihydrotestosterone 17 ng/dL Normal [facility] Comment on above: Result Comment: This test was developed and its performance characteristics determined by [facility]. It has not been cleared or approved by the Food and Drug Administration. Reference Range: Adult Female: 4 - 22 Performed By: #### D HT #### [facility] [address] [place] [address] Dr. Manny Eller TESTOSTERONE, FREE,DIRECT, T OTALon 12-09-2022 Free Testosterone(Direct) 1.7 pg/mL Normal 0.0-4.2 [facility] Comment on above: Result Comment: Perf ormed at: BN Performed By: #### T ESTFRD #### [facility] [address] [place] [address] Dr. Manny Eller Testosterone [Mass/Vol] 32 ng/dL Normal 4-50 [facility] Comment on above: Result Comment: Perf ormed at: CB Performed By: #### T ESTFRD #### [facility] [address] [place] [address] Dr. Manny Eller DHEA-SULFATEon 12-06-2022 DHEA-Sulfate 163.0 ug/dL Normal 41.2-243.7 [facility] Comment on above: Performed By: #### D HEASUL #### [facility] [address] [place] [address] Dr. Manny Eller MG MAMM SCREEN 3D ELOY CADon 11-30-2022 MG MAMM SCREEN 3D ELOY CAD Patient: JENNIFER DIAZ Exam Date: 11/30/2022 : 1970 Gender:F Ordering : DR MADHURI TAYLOR . Admission #: [id number] Family : Order #: [id number] CLICK HERE TO VIEW EXAM RADIOLOGY REPORT [...] Treatments None Family Cancers None LOCATION: [facility] BREAST COMPOSITION: Scattered areas fibroglandular density. [...] MD on 11/30/2022 at 13:57 Normal [facility] COVID/FLU RT-PCRon SARS-CoV-2 (COVID-19) RNA BOB+probe Ql (Unsp spec) Positive [facility] Other COVID/FLU RT-PCR Negative On-Q-ity Other CORTISOLon 10-26-2022 Cortisol 7.8 ug/dL Normal [facility] Comment on above: Result Comment: Mervin isol AM 6.2 - 19.4 Cortisol PM 2.3 - 11.9 Performed By: #### D HT #### [facility] [address] [place] [address] Dr. Manny Eller [facility]OSTERONE, FREE,DIRECT, [facility] Free Testosterone(Direct) <0.2 Normal 0.0-4.2 [facility] Comment on above: Result Comment: Perf ormed at: BN Performed By: #### T ESTFRD #### [facility] [address] [place] [address] [address] [address] Manny Eller Testosterone [Mass/Vol] ng/dL Critically low 4-50 [facility] Comment on above: Result Comment: Perf ormed at: CB Performed By: #### T ESTFRD #### [facility] [address] [place], [place] [address] Dr. Manny Eller CORTISOLon 10-12-2022 Cortisol 0.5 ug/dL Normal [facility] Comment on above: Result Comment: Mervin isol AM 6.2 - 19.4 Cortisol PM 2.3 - 11.9 Performed By: #### C ORTISO #### [facility] [address] [place], [place] [address] Dr. Manny Eller DHEA-SULFATEon 10-12-2022 DHEA-Sulfate 16.2 ug/dL Critically low 41.2-243.7 [facility] Comment on above: Performed By: #### D HEASUL #### [facility] [address] [place], [place] [address] Dr. Manny Eller ESTRADIOLon 10-12-2022 Estradiol 30.9 pg/mL Normal [facility] Comment on above: Result Comment: Adul t Female: Follicular phase 12.5 - 166.0 Ovulation phase 85.8 - 498.0 Luteal phase 43.8 - 211.0 Postmenopausal <6.0 - 54.7 1st trimester 215.0 - >4300.0 [place] ECLIA methodology Performed By: #### C MP, LIPID #### [facility] [address] [place] [address] Dr. Manny Eller ESTRONEon 10-12-2022 Estrone, Serum <6 Normal [facility] Comment on above: Result Comment: Rang e Adult (Premenopausal) 27 - 231 Menstrual Cycle (1-10 days) 19 - 149 Menstrual Cycle (11-20 days) 32 - 176 Menstrual Cycle (21-30 days) 37 - 200 Adult (Postmenopausal) 0 - 125 Performed By: #### E STRONE #### [facility] [address] [place] [address] [address] [address] Manny Eller PROGESTERONEon 10-12-2022 Progesterone <0.1 Normal [facility] Comment on above: Result Comment: Foll icular phase 0.1 - 0.9 Luteal phase 1.8 - 23.9 Ovulation phase 0.1 - 12.0 First trimester 11.0 - 44.3 Second trimester 25.4 - 83.3 Third trimester 58.7 - 214.0 Postmenopausal 0.0 - 0.1 Performed By: #### C MP, LIPID #### [facility] [address] [place] [address] Dr. Manny Eller SEX HORMONE-BINDING GLOBULIN on 10-12-2022 Sex Horm Binding Glob, Serum 55.9 nmol/L Normal 17.3-125.0 [facility] Comment on above: Performed By: #### S EXHBG #### [facility] [address] [place] [address] Dr. Manny Eller GLYCOHEMOGLOBIN A1Con 2021 ADA RECOMMENDATION SEE BELOW Normal [facility] Comment on above: Result Comment: ADA RECOMMENDED LIMIT 4.0 - 6.0 ADA THERAPEUTIC TARGET < 7.0 ACTION SUGGESTED > 7.0 Performed By: #### D HT #### [facility] [address] [place] [address] Dr. Manny Eller Glucose [Mass/Vol] 108 mg/dL Normal [facility] Comment on above: Performed By: #### D HT #### [facility] [address] [place] [address] Dr. Manny Eller HbA1c (Bld) [Mass fraction] 5.4 % Normal 4.5-6.2 [facility] Comment on above: Performed By: #### D HT #### [facility] [address] [place] [address] Dr. Manny Eller POTASSIUMon 10-11-2022 Potassium [Moles/Vol] 3.6 mmol/L Normal 3.5-5.1 [facility] Comment on above: Performed By: #### C MP, LIPID #### [facility] [address] [place] [address] Dr. Manny Eller VITAMIN D 25 OHon 10-11-2022 VIT D 25-OH 37.3 ng/mL Normal [facility] Comment on above: Performed By: #### D HT #### [facility] [address] [place] [address] Dr. Manny Eller VIT D RANGES SEE BELOW Normal [facility] Comment on above: Result Comment: <20 ng/mL Vit D deficient 20 - <30 ng/mL Vit D insufficient 30 - 100 ng/mL Vit D sufficient >100 ng/mL Potential Toxicity Performed By: #### D HT #### [facility] [address] [place] [address] Dr. Manny Eller CBC AUTO DIFFon 09-25-2022 BASO # 0.1 103/ul Normal 0.0-0.1 [facility] Comment on above: Performed By: #### C MP, LIPID #### [facility] [address] [place] [address] Dr. Manny Eller Basophils/100 WBC (Bld) 1.1 % Normal 0.2-2.0 [facility] Comment on above: Performed By: #### C MP, LIPID #### [facility] [address] [place] [address] Dr. Manny Eller EO # 0.1 103/ul Normal 0.0-0.7 [facility] Comment on above: Performed By: #### C MP, LIPID #### [facility] [address] [place] [address] Dr. Manny Eller Eosinophils/100 WBC (Bld) 1.1 % Normal 0.9-7.0 [facility] Comment on above: Performed By: #### C MP, LIPID #### [facility] [address] [place] [address] Dr. Manny Eller Erythrocyte distribution width (RBC) [Ratio] 12.2 % Normal 11.0-15.0 [facility] Comment on above: Performed By: #### C MP, LIPID #### [facility] [address] [place] [address] Dr. Manny Eller Hematocrit (Bld) [Volume fraction] 42.9 % Normal 36.0-48.0 [facility] Comment on above: Performed By: #### C MP, LIPID #### [facility] [address] [place] [address] Dr. Manny Eller Hemoglobin (Bld) [Mass/Vol] 15.0 g/dL Normal 12.0-16.0 [facility] Comment on above: Performed By: #### C MP, LIPID #### [facility] [address] [place], [place] [id number] Dr. Manny Eller IG # 0.01 10e3/ul Normal 0.00-0.03 [facility] Comment on above: Performed By: #### C MP, LIPID #### [facility] [address] [place] [address] Dr. Manny Eller IG % 0.2 % Normal 0.0-0.5 [facility] Comment on above: Performed By: #### C MP, LIPID #### [facility] [address] [place] [address] Dr. Manny Eller LYMPH # 1.3 103/ul Normal 1.2-3.8 [facility] Comment on above: Performed By: #### C MP, LIPID #### [facility] [address] [place] [address] Dr. Manny Eller Lymphocytes/100 WBC (Bld) 28.4 % Normal 20.5-60.0 [facility] Comment on above: Performed By: #### C MP, LIPID #### [facility] [address] [place] [address] Dr. Manny Eller MANUAL DIFF REQ NO Normal [facility] Comment on above: Performed By: #### C MP, LIPID #### [facility] [address] [place] [address] Dr. Manny Eller MCH (RBC) [Entitic mass] 32.3 pg Normal 26.7-34.0 [facility] Comment on above: Performed By: #### C MP, LIPID #### [facility] [address] [place] [address] Dr. Manny Eller MCHC (RBC) [Mass/Vol] 35.0 g/dL Normal 29.9-35.2 [facility] Comment on above: Performed By: #### C MP, LIPID #### [facility] [address] [place] [address] Dr. Manny Eller MCV (RBC) [Entitic vol] 92.5 fL Normal 81.0-99.0 [facility] Comment on above: Performed By: #### C MP, LIPID #### [facility] [address] [place] [address] Dr. Manny Eller MONO # 0.3 103/ul Normal 0.3-0.8 [facility] Comment on above: Performed By: #### C MP, LIPID #### [facility] [address] [place] [address] Dr. Manny Eller Monocytes/100 WBC (Bld) 7.0 % Normal 1.7-12.0 [facility] Comment on above: Performed By: #### C MP, LIPID #### [facility] [address] [place] [address] Dr. Manny Eller NEUT # 2.8 103/ul Normal 1.4-6.5 [facility] Comment on above: Performed By: #### C MP, LIPID #### [facility] [address] [place] [address] Dr. Manny Eller Neutrophils/100 WBC (Bld) 62.2 % Normal 43.0-75.0 [facility] Comment on above: Performed By: #### C MP, LIPID #### [facility] [address] [place] [address] Dr. Manny Eller Platelet mean volume (Bld) [Entitic vol] 9.6 fL Normal 9.5-13.5 [facility] Comment on above: Performed By: #### C MP, LIPID #### [facility] [address] [place] [address] Dr. Manny Eller PLT 322 103/ul Normal 150-450 [facility] Comment on above: Performed By: #### C MP, LIPID #### [facility] [address] [place] [address] Dr. Manny Eller RBC 4.64 106/ul Normal 4.20-5.40 [facility] Comment on above: Performed By: #### C MP, LIPID #### [facility] [address] [place] [address] Dr. Manny Eller WBC 4.6 103/ul Normal 4.0-11.0 [facility] Comment on above: Performed By: #### C MP, LIPID #### [facility] [address] [place] [address] Dr. Manny Eller LIPID PROFILEon 09-25-2022 CHOL-HDL RATIO NORM SEE BELOW Normal [facility] Comment on above: Result Comment: 3.3 - 4.4 LOW RISK 4.4 - 7.1 AVERAGE RISK 7.1 - 11.0 MODERATE RISK >11.0 HIGH RISK Performed By: #### C MP, LIPID #### [facility] [address] [address] [address] Manny Eller Cholesterol [Mass/Vol] 171 mg/dL Normal <=200 [facility] Comment on above: Performed By: #### C MP, LIPID #### [facility] [address] [address] [address] Manny Eller Cholesterol in HDL [Mass/Vol] 49 mg/dL Normal 40-60 [facility] Comment on above: Performed By: #### C MP, LIPID #### [facility] [address] [address] [address] Manny Eller Cholesterol in LDL [Mass/Vol] 103.4 mg/dL Normal [facility] Comment on above: Performed By: #### C MP, LIPID #### [facility] [address] [address] [address] Manny Eller Cholesterol.total/Natalee sterol in HDL [Mass ratio] 3.5 {ratio} Normal [facility] Comment on above: Performed By: #### C MP, LIPID #### [facility] [address] [address] [address] Manny Eller HDL NORMAL > or = 60 mg/dl - LO W CARDIOVASCULAR RISK <40 mg/dl - HIGH CARDIOVASCULAR RISK Normal [facility] Comment on above: Performed By: #### C MP, LIPID #### [facility] [address] [address] [address] Manny Eller LDL CALC NORMAL SEE BELOW Normal [facility] Comment on above: Result Comment: <100 mg/dl OPTIMAL 100 - 129 mg/dl NEAR OR ABOVE OPTIMAL 130 - 159 mg/dl BORDERLINE HIGH 160 - 189 mg/dl HIGH >190 mg/dl VERY HIGH Performed By: #### C MP, LIPID #### [facility] [address] [place] [address] Dr. Manny Eller Triglyceride [Mass/Vol] 93 mg/dL Normal <=150 T [facility] Comment on above: Performed By: #### C MP, LIPID #### [facility] [address] [place] [address] Dr. Manny Eller VLDL CALC 18.6 mg/dL Normal [facility] Comment on above: Performed By: #### C MP, LIPID #### [facility] [address] [place] [address] Dr. Manny Eller PROF 14(COMP METB)on 022 Albumin [Mass/Vol] 3.8 g/dL Normal 3.4-5.0 [facility] Comment on above: Performed By: #### C MP, LIPID #### [facility] [address] [place] [address] Dr. Manny Eller Albumin/Globulin [Mass ratio] 1.1 {ratio} Normal [facility] Comment on above: Performed By: #### C MP, LIPID #### [facility] [address] [place] [address] Dr. Manny Eller ALP [Catalytic activity/Vol] 73 U/L Normal 46-116 [facility] Comment on above: Performed By: #### C MP, LIPID #### [facility] [address] [place] [address] Dr. Manny Eller ALT [Catalytic activity/Vol] 39 U/L Normal 14-59 [facility] Comment on above: Performed By: #### C MP, LIPID #### [facility] [address] [place] [address] Dr. Manny Eller Anion gap [Moles/Vol] 11.6 mmol/L Normal [facility] Comment on above: Performed By: #### C MP, LIPID #### [facility] [address] [place] [address] Dr. Manny Eller AST [Catalytic activity/Vol] 23 U/L Normal 15-37 [facility] Comment on above: Performed By: #### C MP, LIPID #### [facility] [address] [place] [address] Dr. Manny Eller Bilirubin [Mass/Vol] 0.7 mg/dL Normal 0.2-1.0 [facility] Comment on above: Performed By: #### C MP, LIPID #### [facility] [address] [place] [address] Dr. Manny Eller Calcium [Mass/Vol] 9.3 mg/dL Normal 8.5-10.1 [facility] Comment on above: Performed By: #### C MP, LIPID #### [facility] [address] [place] [address] Dr. Manny Eller Chloride [Moles/Vol] 101 mmol/L Normal 98-107 [facility] Comment on above: Performed By: #### C MP, LIPID #### [facility] [address] [place] [address] Dr. Manny Eller CO2 [Moles/Vol] 31.2 mmol/L Normal 21.0-32.0 [facility] Comment on above: Performed By: #### C MP, LIPID #### [facility] [address] [place] [address] Dr. Manny Eller Creatinine [Mass/Vol] 0.87 mg/dL Normal 0.55-1.02 [facility] Comment on above: Performed By: #### C MP, LIPID #### [facility] [address] [place] [address] Dr. Manny Eller EGFR-AF UGANDAN >60 Normal >=60 [facility] Comment on above: Performed By: #### C MP, LIPID #### [facility] [address] [place] [address] Dr. Manny Eller EGFR-NON AF UGANDAN >60 Normal >=60 [facility] Comment on above: Performed By: #### C MP, LIPID #### [facility] [address] [place] [address] Dr. Manny Eller Globulin (S) [Mass/Vol] 3.6 g/dL Normal T [facility] Comment on above: Performed By: #### C MP, LIPID #### [facility] [address] [place] [address] Dr. Manny Eller Glucose [Mass/Vol] 124 mg/dL Critically high 74-106 T [facility] Comment on above: Performed By: #### C MP, LIPID #### [facility] [address] [address] [address] Manny Eller Potassium [Moles/Vol] 2.8 mmol/L Critically low 3.5-5.1 [facility] Comment on above: Performed By: #### C MP, LIPID #### [facility] [address] [address] [address] Manny Eller Protein [Mass/Vol] 7.4 g/dL Normal 6.4-8.2 [facility] Comment on above: Performed By: #### C MP, LIPID #### [facility] [address] [place] [address] Dr. Manny Eller Sodium [Moles/Vol] 141 mmol/L Normal 136-145 [facility] Comment on above: Performed By: #### C MP, LIPID #### [facility] [address] [place] [address] Dr. Manny Eller Urea nitrogen [Mass/Vol] 15.0 mg/dL Normal 7.0-18.0 [facility] Comment on above: Performed By: #### C MP, LIPID #### [facility] [address] [place] [address] Dr. Manny Eller Urea nitrogen/Creatinine [Mass ratio] 17.2 mg/mg Normal [facility] Comment on above: Performed By: #### C MP, LIPID #### [facility] [address] [place] [address] Dr. Manny Eller Office Visit (Cardiology)on 07-18-2022 [...] lose weight.; Status:Complete - Retrospective Authorization; Done: 18Jul2022 Palpitations Continue with our present treatment plan.; Status:Complete - Retrospective Authorization; Done: 18Jul2022 SocHx: Never a smoker Tobacco Use Screening; Status:Complete; Done: 18Jul2022 Patient Instructions Please bring all medicines, vitamins, and herbal supplements with you when you come to the office. Prescriptions will not be filled unless you are compliant with your follow up appointments or have a follow up appointment scheduled as per instruction of your physician. Refills should be requested at the time of your visit. Chief Complaint JENNIFER DIAZ is being seen for a 9 month [...] NoKnown No Known Allergies Recorded By: Luisa Perasud; 10/08/2021 9:58:45 AM Social History Problems Never [...] Recorded: 18Jul2022 01:41PM Heart Rate68, L Radial Gmbfrwnx954, LUE, Sitting Wpppvzhwh85, LUE, Sitting Height5 ft 7 in Svtwjq469 lb 4 oz BMI Ryacqnvyle18.54 kg/m2 BSA Ca (more content not included)... Normal [employer] Tobacco Screening.on 022 Adult depression screening assessment No [facility] [address] DO Work Phone: Tobacco use status [facility] b) No [facility] 250 DO Work Phone: CT HEAD WO [...] by: ADAIR SCHMITT Date: 2022-07-15 11:31 Normal [facility] CTA NECK WO W CONon 07-15-20 22 CTA NECK WO W CON EXAMINATION: CTA NEC K WO W CON, CTA HEAD WO W [...] by: CARLOS RUBI Date: 2022-07-15 14:56 Normal [facility] Patient Educationon 06-07-20 Patient Education Infectious Disease Infection Prevention in [...] Supplies needed: ? Soap. ? Alcohol-based hand agency operator. ? Standard cleaning products. ? Disinfectants, such [...] water are not available, use alcohol-based hand agency operator. ? Avoid touching your face, mouth, nose, [...] water. Air-dry your dishes or use a stockroom selector. ? Do not share dishes or eating [...] certain germs and not others. Read the deck mechanic's instructions or read online resources to determine [...] toil (more content not included)... Normal [facility] Urology Office/Clinic Noteon 06-07-2022 Urology Office/Clinic Note Chief Complaint Follow up from Cysto/UD HPI Staff Jennifer is a 51 y/o female here for [...] MABLE DESHPANDE PA-C, URL Only if needed [address] [place] [address] Additional Instructions: PRN Patient Education Infection Prevention in the Home Aure Morales, personally scribed for Mable Deshpande PA-C [...] 500 mg Tab, See Instructions, Not taking hydrochlorothiazide-l osartan 12.5 mg-50 mg Tab, Oral, Daily Keflex [...] cholesterol: Father. Hypertension: Mother. Stroke: Mother. Normal [facility] Comment on above: Result Comment: Elec tronically Signed By: MABLE DESHPANDE PA-C\.br\Date and Time Signed: 06/07/22 16:03 EDT\.br\Electronically Co-Signed By: Aure Eagle\.br\Date and Time Co-Signed: 06/07/22 15:02 EDT Coding Summary.on 03-06-2022 Coding Summary. CD:[id number] G h0bWw+PGhlYWQ+ON1HYAR hN10fxLVlbM1IA9tUHN4K TGKICQTJFC5KLH8mkUD1P VfaZ7GobtRj VhdpcVAgLX51QAx0YJM0r ByvCAjrrT7snNIjT1t3Fn FsCS63xB09GFotVGUiTxB 3LjZpbjsgbWFy E4auVlYhzXNfImf+PHRhY mxlIHdpZHRoPScxMDAlJy KojRizHZ7aTv4gKXRxYUO vbGxhcHNlOiBj p3wuOCCqVEsoTP9siSroL 0VfpIU6XOBsh2s3Cz24mY I+HMBhZJJ8rEmeZAjsl96 3DtTbw2akVUT4 nYCdIRfqFRV3F54yv3D7P HXiJREwOVQ7dZN2pU6meP pbntylO2FgiYClOlJ0CPK 0iWJqqD7qsKwk ecbwyI7aXco+G53FEB9DQ KXZPL7ERlj2U0YkToxqgL I+QI05QFHoAQ73zMRobWX te2pzdXp4JoMe KNQoQJT7fPxnDUtbf0JzC GKnC80nzUBrh5Q5AHVuzJ bdbNHxXrFnbZQ8cM5cLIq dmwwvk6cgthxt Zlqkm1wjyk57tS55B82cS MmzTZKjVCL5WDPnWCBikD droq6ylJ9uKx2+BQiax7o wr9httIr5WsQb WBDzqvGmpVvePXH0n7ZpO u14E5UajDbqa1WmXaj0td 88cZJoy1P0wJW2XGnsNTZ lnD8zFIfkOeQ5 ZZFmIzJjzA83gUPoIYjtV d5shWzhdUspNB6iGOPxnx csQZOtlK8mADYwbPCdqLh zXC7sTSQopcro i239ReOnKOE6IPOuwKIjG 6XssY9yMcCjVFSvLBXzJ9 IqmWDzXXsmR034DQeiLuI 8JTPsgqFvB0Vc NOCexNwpErB5l5B7Ru4Kg 5EvotzsQRZ5NKdkHTM5Qm ZbHtAvGhK1X9KaCjw5RBJ ccYnoYH7bO7Ez CUWujpqvphriyKB7ICGjR RYppH47gOOlHTplNg9ps9 Y9i133BELpGUAefX72Mn9 udDogMTBwdCBU eC0zhqsdx1ajpzaqSgTeT RClUKt9WJm5UGKexOvaGo PoMMI5CnX4KVB1eLSivS7 xqKejacjarT6q Oyc+G72vhX7hGEK7FDI3t rqiEOIvcfEiGF77EW21K0 RyPjwvdGFibGU+PGRpdiB quGolQH0fObOf u6hwb9EqPCnxT0CnSYNhT SmmZvy9KJUsUFT9dKJ9sI 3wJCUlPDaaq9C5nEO3T4I eouSdsv8zn2yj VLEmVOgbM32yrFVcn1V4C CWciBH5OCVvmSmhZpNoxG 93Oyc+TBHdvOrbh1JxBpf kb2ial7sxdRe9 XmMcYGYxgkNytRqiRZS2g 5QdJp54Y18fOUtcTPVuQA NnXUTuFXObvUqool2ywN0 wIi8+PGNvbCB3 rEN9lY1kTDFnObT4JMzmQ 299JyAdlXBkQufam7bgr8 ngaJk3QpBfPEZvcsFchTq uBTF4i1OpVz00 K36fKQlwAPDvWQClRGGeZ GDuvTbhum0yfZ2aBk3+PC 1qi2nbvs97qT75rPU+PHR dVKR8vRywKKde VRVmnK6tHNveVzH1TCKhG xDtgX32sJHuHUkzWr3zmF qbsSynOW2zBSWkrckli59 1TeYee0veOZYj rJSaJManYKS9Z66ln3U9F HYdTSOsORI0tHV4oN6goC lnbjogbGVmdDsgdmVydGl kQIqgSAtvK033 IHRvcDsnPlBhdGllbnQgT jYfDHu8Z6PbOhr4QSMwfJ knCJ2kqAFyLPyoFu0nxTb xiZjnSB3bPQUr pnoqh512CwJks2zxJHEov HMgJSqbKGY3C78sx8M4YK OzOZRhRHJ7gTS3gD0cdSq nbjogbGVmdDsg aiDchBmoDHmtQWlcL621R HRvcDsnPkJpcnRoIERhdG Q3XU27QM36jYWle1C6nGV 9H5TjORGlcqtj ecqjiEJ2USGjNIEfyY17Y p7vqIuvSd2lLQVrUFZ9XS QkwYPrX4JkzA6gLjTuKNT aTTRaE6VpnBZw KWboH800FMowWsD2YJDrg lOpW0JkXUPdfHyoCkM4n7 C8Pc1YM4S5FA95ZT68dPB fb0G2eON3S4Zh GWMfgyhvplzdvHY0CWKaA JNqgM86Pd2wsXnqCa6qLD JhUCD0OPAobLNtP1TmpT0 yOiAjMDAwMDAw W5WbjLDbVTfsM071PSbfB uZ1NENnslNvN4ZmOYUsrM mpOkI1t2F5Wm7HRTe6MP8 6ZI00gTNez6W4 uJG9S7NhDFKnjgnliqkhe DG2DLXvOWWtuM96Nf9mzQ vuJk1xQZCjFFZ3JVNwwGA sV0QtlY5nSdJf BFClPLYnG4AogIQrZWkoX 926NKhpCmW3QZYljlVdN0 SgFFDwiKsxGnD4h1G0Zs1 WYQSeFG37QDQ6 xDS4WU14XV35H4JpFzwhx GFibGU+PHRhYmxlIHdpZH RoPScxMDAlJyBzdHlsZT0 zOb9xUIUrDVMt zGouzEBgSbNzr1ctNAIoS CiaHF8nnDytV0AzzHN8NU Bst1u3Pe88F43tJ0XxjAH +VWNoqJZ6kTH6 dA2pVjNmAlD2LLntZ601Y yGhpJYmHilrv8qqy3iobX d8VcL9ABJclfKriMecSUL 4b6FhEd62H08d IHdpZHRoPSIxNSUiIHZhb Ntwwl8lyI0sUc1+PGNvbC O5lPG6dD8pMnXyOfU5ZRb fV987CqFguWVb Kuxaw7mtl0dhbHr9UjHgL GAmqtVvnKflWUW5t3BnEy 20T9ZquThwo1DrLyn4ah3 4jPOpy5G6wST2 E9OxODJwidcezFTyvNfiU S9vRUJsfmgpYCNqdA0qRV GcG1e8IdDyClV7VIenF2L ohhF5FMZjxANc UIaaFLS8O06xe9D8QALgV CIqYSW4mWN0kS3irTlpdr ogbGVmdDsgdmVydGljYWw sKVfwJ549ORMu yErwUQHqvP9aKBZfjRAlv XasVH4vVYBaxgrcJx2XZA QTAMPYAUDYBUAHFT65LB0 2xUMse3W6iTR7 U0DlDZZjlyqfeksbdQS7G BZxDOZxyA37sBWsREelNo 7vx9H4e936TYVeYKLnfY4 2Gj3ecJhmVWMk tEIGjY1vhpxok6bbpqodV iJbRWIyLVa2WEy2NXEiyL glTpHmQBT7GnX1IXN8iUV dsC9cnPxjzuay qT6jTay+XWayHWRcLAv9G TwvdGQ+EAVpJFN8nBlvFC lmHHUqcF1vZTQbJ4s6JtM uSzN7RNqhN5Ap ICCilvuiLm02uF2hWjMcZ cK4KAlfA3VxkuZ9DRGmeS HoBPbaLFG4L89bs7Q3JRB eYGQdLEP0lNB0 jX1keFqucsmvpYPfqTttf lZsyWczXEjrVAzxR298EW RvcDsnPjUyIFllYXJzPC9 7HT87sOKnc6I1 vJJ4B3SzUKQxmaudkhtkb HQ1YOWrFNMoiL25yZEtOR jlNo6er4C1i554EVCqEEW ohM35Ru0hdIba HQNizJWClQ1kvuime4few mzlFbPbLUKzTAw4CPl8DH HelEzkSgYkQLG4UaD3THN 1cNIrjA4tyAuv qkvmiR3lNyi+RmVtYWxlP T91PW74lFSip0O3pPM6I1 OqXTXsvdzkdvfbpHA6SUK kNDEglO13bIGg TTvyBy4sw7B4z216DGEwM MCdxE66Ug2lwLxeXZNdbE YJrE2jdnywe1ghqbwvSlB fRGMqUVq4NWm8 JDInrExpQpQjLPJ4SzD8E QT4kKTkkH9krUrcwsyxhP 9wOyc+X7W0xWC7kLWadLc vdGQ+NY95zb60 F4CpYjytPzz2VDOhEXD4e NV8nB7pGCMkVKtwg0X4uV A5A5DpdbYrze0nl9ttASX xAGqgP67llKCe q4A7JUZgiPD9VZTyxBlcD gEaoN35Hmc+PGNvbGdyb3 KoQmsum1zeu3yhwFt1NwP wJSIgdmFsaWdu MPO2q7HpXw15I18xBXvcY HRoPSIzMCUiIHZhbGlnbj 0zuQ0qVi9+SBQqcPN1sSX 4wG9eWxOuEyN5 MDfrX609XuQcdRUdSdkii 5ufm0yyiYo1JbZiHHDjjg NbyKmyWGY1k2CrAy75N2Q gdOfwa9XnKcd3 fm62nQVla5D6bBQ9Q1CpV VVucvepvVUohKryJI5vMA TijnqxNMMphA2iAUZvK0i 9HjYiVkI8YEfk X9MdfiK7UEOidTJgTZIfd BWBjO3ufrosh3uchfgeSl CkAOWiEHe4UPs9IAJvhIz eOoEpTAM2SkF4 RQM4iPGloA1koTjspgfri G9wOyc+ZGg6i5rhcLZnVZ 1tzUC0AT43JE34gKMce6F 7fOZ5Q9PaQLOz jyirlumuzWQ4VOCgMTMvi K72Ul9zsEleGa9rSLPnGJ T2WYUehDPtO0XydZ0dOaX gXBZjIACoB4Wq fOMbRVhhR951CQpbAfC9A CXjoyXzP9TxGHVjmEslQx C6u2Q3Hg9PKN85HZ88HW0 2bRLok3S9hHY5 S9GhGUXcscorjqbkdJX9F NUhGCHrlN44Tk5ipWqfFv 8pQJGvRUA4BWRbaCGoV5Y suC2mRoWoBUJq GDEdE8AjoNSyDZrlE481F EafMjR6FRSntsXnW4AvES WljKafGvV8n1V9Kv9FMz6 4VD40YE78zELw h8U5nPS4R9IaYFXvpepcv nwdkTX7ZXDuVCDguB33Xi 5auXhqIu5oHKBiWZK6EVH zrLUxC3YiaM2h SgSsLCLtXVTzN5ZfuGMgO NzrD366IFnlBsJ7NEIjvb GsA6EpUOYxtJzjEuB6r4O 6Kx7RVZlaphi4 O2FxPcgpoAZ+UX25HMFyJ L29qQVjwAQfb9joqAa2Pj RtCYKiIYB6uKprMXhbi8Q fDZTrQ33aiSTa c2U6 (more content not included)... Normal [facility] Consent for Procedure/Surger yon 03-02-2022 Consent for Procedure/Surgery [id number]# 1.00CD:127 Normal [facility] Consent for Treatmenton 02-12 Consent for Treatment [id number]#1 .00CD:127 Normal [facility] Inpatient Patient Summaryon 03-02-2022 Inpatient Patient Summary [facility] [address] Clinical Summary Person Information Name: JENNIFER DIAZ Age: 51 Years : 1970 Sex: Female PCP: GRADY ARRIAGA DO Marital Status: Race: White Ethnicity: Non- or Language: Vietnamese Visit Id: Visit Reason: RECURRENT UTI INCOMPLETE EMPTYING Speciality: Acuity: Enc Type: Outpatient Med Service: Surgery Arrival: 03/02/2022 10:27:40 Discharge: Dispo Type: Address: [address] [place] [id number] Provider Notes: Diagnosis: Problems Active Recurrent UTI [...] of procedure after the procedure. Refills: 0. hydrochlorothiazide-l osartan (hydrochlorothiazide- losartan 12.5 mg-50 mg Tab) By Mouth every day. metoprolol (Toprol XL 25 mg Tab-ER) By Mouth every day. pantoprazole (Protonix 40 mg tablet) every day. phentermine-topiramat e (Qsymia 7.5 mg-46 mg oral capsule, extended release) By Mouth once a day (in the morning). Care Team Members: Attending Physician: Yinka OJEDA MD Consulting Physician: Referring Physician: Yinka OJEDA MD Follow up: With: Address: When: MABLE DESHPANDE [address] [place], [place] [id number] Business (1) Within 6 weeks Comments: Call for followup appointment. Please finish your antibiotics. Monitor the urinary pattern after the dilation today. Patient Education Information: EU - Cystoscopy with Urethral Dilation Discharge Instructions (Custom) Normal [facility] IntraOperative Documentson 0 03-02-2022 IntraOperative Documents [id number]# 1.00CD:127 [facility] Main OR Intraoperative Recor don 03-02-2022 Main OR Intraoperative Record IntraOp Document Type FTURO Summary Primary Physician: Yinka OJEDA MD Finalized Date/Time: 03/02/22 11:16:49 Pt. Name: JENNIFER DIAZ Zayra Randall/Sex: 1970 Female Med Rec #: [id number] Physician: Yinka OJEDA MD Financial #: [id number] Pt. Type: O Room/Bed: / Admit/Disch: 03/02/22 10:27:40 - Institution: Case Times FTURO Entry 1 Patient Times In Room 03/02/22 11:08:00 Out Room 03/02/22 11:21:00 Procedure Times Start 03/02/22 11:09:00 Stop 03/02/22 11:16:00 Anesthesia Times Last Modified By: Tal FLORENTINO, Lashell ALFARO 03/02/22 11:16:28 Case Attendance FTURO Entry 1 Entry 2 Entry 3 Case Attendee Yinka OJEDA MD RN, CNOR, Moy DRISCOLL, Porsha Lobo Role Performed Surgeon - Primary Camp Coordinator - Primary Scrub - Primary Time In 03/02/22 11:08:00 03/02/22 11:08:00 03/02/22 11:08:00 Time Out 03/02/22 11:21:00 03/02/22 11:21:00 03/02/22 11:21:00 Procedure CYSTOSCOPY LOCAL(.) CYSTOSCOPY LOCAL(.) CYSTOSCOPY LOCAL(.) Comments Last Modified By: Tal RN, CNOR, Tal RN, NIKKIOR, Tal FLORENTINO, NIKKIOR, Lashell 03/02/22 Lashell 03/02/22 Lashell 03/02/22 11:16:29 11:16:45 11:16:29 Surgical Procedures FTURO Entry 1 Procedure Description Procedure CYSTOSCOPY LOCAL Modifiers . Surgeon Description cysto with UD Primary Procedure Yes Primary Surgeon Yinka OJEDA MD Start 03/02/22 11:09:00 Stop 03/02/22 11:16:00 Anesthesia Type [...] Out Yinka OJEDA MD, Verified (If Participants Tal FLORENTINO, NIKKIOR, Applicable) Moy Lobo CST, Kimberly A Time [...] DOMINIC Parada RN, Ruthann 03/02/22 11:16 Normal [facility] Main OR Preoperative Recordo n 03-02-2022 Main OR Preoperative Record Holding Area Document Type FTURO Summary Primary Physician: Yinka OJEDA MD Finalized Date/Time: 03/02/22 11:11:38 Pt. Name: EMILY JENNIFER RandallO.B./Sex: 1970 Female Med Rec #: [id number] Physician: Yinka OJEDA MD Financial #: [id number] Pt. Type: O Room/Bed: / Admit/Disch: 03/02/22 [...] 11:11:36 General Comments: Temp 35.7 Finalized By: Tal FLORENTINO, Lashell ALFARO Document Signatures Signed By: Shiv FONSECAFranciscafeng Iverson 03/02/22 10:55 DOMINIC Parada RN, Ruthann 03/02/22 11:11 Normal [facility] Operative Reporton Operative Report Patient: DAI DIAZ Age: 51 years Sex: Female : 1970 Associated Diagnoses: None Author: Yinka OJEDA MD Procedure Operative Information Details: Date/ Time: 03/02/2022 11:17:00. Pre-Op Dx: Hx of UTI's - Z87.440, Urethral Stricture - Other Unspecified - N35.9. Post-Op Dx: Same. Anesthesia Type: Local. Procedure: Local Cystoscopy with Urethral Dilation. Complications: None. Risks/Benefits/Inform ed Consent: Surgical risks, benefits, details of the [...] urine. The Urethra was dilated to: 30 Albanian w/ sounds. Devices Implanted: None. Removal: Cystoscope is removed, The patient tolerated it well. Postoperative Information Discharge: Patient is discharged home with antibiotic coverage, Follow up arranged, F/U MARIANO Monge, in about six weeks. Monitor urinary flow pattern. Hopefully UTI frequency will decrease. Normal [facility] Comment on above: Result Comment: Elec tronically Signed By: Yinka OJEDA MD\.br\Date and Time Signed: 03/02/22 11:19 EDT Outpatient Surgery Discharge Instructionon 03-02-2022 Outpatient Surgery Discharge Instruction [address] [address] Patient Discharge Instructions PERSON INFORMATION Name: JENNIFER DIAZ Date of : 1970 Current Date: 03/02/2022 11:17:46 PHYSICIANS Admitting Physician: Yinka OJEDA MD Comment: Discharge Diagnosis: JENNIFER DIAZ has been given the following list of follow-up instructions, prescriptions, and patient education materials: IF UNABLE TO CONTACT YOUR PHYSICIAN AND YOU FEEL IT IS AN EMERGENCY, GO TO THE NEAREST EMERGENCY ROOM OR CALL 911 Follow up: With: Address: When: MABLE DESHPANDE [address] [place] [address]. [place], [place] [id number] [facility] (1) Within 6 weeks Comments: Call [...] have a fever over 100 degrees I, JENNIFER DIAZ, have received the attached patient education materials/instruction s and have verbalized understanding: May we do [...] to serve you. Thank you for choosing [facility] Pre-Certification Formon Pre-Certification Form [id number]# 1.00CD:127 [facility] Formson 02-22-2022 Forms [id number]#1 .00CD:127 [facility] Urology Office/Clinic Noteon 02-21-2022 Urology Office/Clinic Note Chief Complaint Pt is here for recurrent UTI HPI Staff Jennifer is a 51 y.o. female new patient [...] UTIs directly correlates to sexual activity increase. PROJECT DESIGN ENGINEER (Juan) already started her on post-coital Keflex [...] baths & hot tubs, avoid any scented PROJECT DESIGN ENGINEER products, urinate after sexual activity, etc) 5) [...] during cysto. Follow-up With When Contact Information CHARLEE OSCAR, MABLE Toney, URL [address] [place] [address] Additional Instructions: Will schedule Cysto Patient Education Urinary Tract Infection, Adult, Orca-kg-Jczd Grecia Morales, personally scribed for Mable Deshpande [...] 81 mg Oral EC Tab, Oral, Daily hydrochlorothiazide-l osartan 12.5 mg-50 mg Tab, Oral, Daily Keflex [...] 14:37:00) L (more content not included)... [facility] Comment on above: Result Comment: Elec [...] these instructions at home: Medicines ? Take wcmu-grg-dbkaabi and prescription medicines only as told by [...] 03/19/2009 Document Revised: 09/18/2019 Document Reviewed: 04/10/2019 Elsevier Patient Education ? 2020 [employer] [facility] Urinalysis - AUTOMATEDon Appearance (U) clear [employer] Other Bilirubin Ql (U) Negative On-Q-ity Other Color (U) orange yellow [employer] Other Glucose Ql (U) 100 [employer] Other Hemoglobin Ql (U) small [employer] Other Ketones Ql (U) trace Eko Other Nitrite Ql (U) Positive Eko Other pH (U) 6.5 [pH] [employer] Other Protein Ql (U) trace [employer] Other Specific gravity (U) [Rel density] 1.025 [employer] Other Urobilinogen (U) [Mass/Vol] 1.0 mg/dL [employer] Other Urinalysis - AUTOMATED No rt [employer] Other Urine Cultureon 01-01-2022 Bacteria identified Cx Nom (U) Reason for Exam Dysuria Urine Reason for Exam: Dysuria : Urine No Growth 2 Days PERFORMED BY: [place] [address] PATHOLOGIST EVALUATION ANALYST DENIS MULLER [facility] Comment on above: Performed By: #### C UU #### [address] Office Visit (Cardiology)on 11-09-2021 Follow-up visit [...] Instructions By signing my name below, I, Sudhir Mendez LPN ,Scribe, attest that this documentation has been prepared [...] Follow up in 9 months Chief Complaint JENNIFER DIAZ is being seen for a 4 month [...] Vital Signs Recorded: 09Nov2021 02:37PMRecorded: 09Nov2021 02:32PM Vycrmdme916, LUE, Lanfhkz817, LUE, Sitting Dddetbems92, LUE, Dweerez55, LUE, Sitting Heart Rate69, L Brachial Artery Height5 ft 7 in Zqgphy181 lb BMI Sgibvszhan21.96 kg/m2 BSA Calculated2.17 Tobacco Useb) No Fall Screeningc) Not medical (more content not included)... Normal Axial [employer] Tobacco Screening.on 022 Fall risk assessment c) Not medically indicated [facility] 250 DO Work Phone: Tobacco use status CP b) No M [facility] 250 DO Work Phone: COVID Quick Testingon 2020 Result Negative [facility] [employer] Other [facility] CARDIAC STRESS/REST INJE CTIONon 04-05-2021 [facility] CARDIAC STRESS/REST INJECTION Patient Name: JENNIFER DIAZ STUDY: MYOCARDIAL PERFUSION STRESS TEST WITH EXERCISE Performing facility: [facility], [address] [place] [address], [address] Provider: Joao Colmenares MD PCP: Dr. Beatrice Arriaga Supervising provider: Joao Colmenares MD INDICATION: Abnormal EKG; Palpitations NSVT HISTORY: Gender: F; Age: 50 y/o ; Height: 170.18 cm; Weight: 193.5316936 kg. HTN; Palpitations; SOB; Denies smoking. COMPARISON: No comparison. ACCESSION NUMBER(S): [id number]; [id number]; [id number] ORDERING CLINICIAN: JOAO COLMENARES TECHNIQUE: TWO DAY [...] comparison. Electronically signed by: JOAO COLMENARES MD [facility] Vital Signs Date Time Vital Sign Value Performing Clinician Facility 02-19-2023 16:30-0400 Body height 170.18 cm [facility] [employer] Other [facility] Other 02-19-2023 16:30-0400 Body mass index (BMI) [Ratio] 25.12 kg/m2 [employer] Other [facility] Other 02-19-2023 16:30-0400 Body weight 72.76 kg [employer] Other [facility] Other 02-19-2023 16:30-0400 Diastolic blood pressure 87 mm[Hg] [facility] [employer] Other [facility] Other 02-19-2023 16:30-0400 Respiratory rate 12 /min [employer] Other [facility] Other 02-19-2023 16:30-0400 Systolic blood pressure 146 mm[Hg] [employer] Other [facility] Other 11-20-2022 11:50-0500 Body height 170.18 cm Clare Justin Other [facility] Other 11-20-2022 11:50-0500 Body mass index (BMI) [Ratio] 24.68 kg/m2 Clare Justin Other [facility] Other 11-20-2022 11:50-0500 Body temperature 98.2 [degF] Clare Justin Other [facility] Other 11-20-2022 11:50-0500 Body weight 71.49 kg Clare Justin Other [facility] Other 11-20-2022 11:50-0500 Respiratory rate 18 /min Clare Justin Other [facility] Other 11-20-2022 11:50-0500 SaO2% (BldA) [Mass fraction] 97 % Clare Justin Other [facility] Other 07-18-2022 13:41-0400 Body height 170.18 cm Grady Toney [employer] Work Phone: [employer] DO Work Phone: 07-18-2022 13:41-0400 Body mass index (BMI) [Ratio] 28.54 kg/m2 Grady Toney [employer] Work Phone: [employer] DO Work Phone: 07-18-2022 13:41-0400 Body surface area Derived from formula 1.94 m2 Grady Feng [employer] Work Phone: [employer] DO Work Phone: 07-18-2022 13:41-0400 Body weight 82.67 kg Grady Feng Ball Work Phone: [employer] DO Work Phone: 07-18-2022 13:41-0400 Diastolic blood pressure 82 mm[Hg] Grady Toney [employer] Work Phone: [employer] [place] [facility] 250 DO Work Phone: 07-18-2022 13:41-0400 Heart rate 68 /min Grady Toney Ball Work Phone: [facility] 250 DO Work Phone: 07-18-2022 13:41-0400 Systolic blood pressure 130 mm[Hg] Grady Toney Ball Work Phone: [facility] 250 DO Work Phone: 02-21-2022 14:42-0400 Blood Pressure Location MABLE DESHPANDE [facility] [place] 02-21-2022 14:42-0400 Diastolic blood pressure 84 mm[Hg] MABLE DESHPANDE [facility] [place] 02-21-2022 14:42-0400 Heart rate 84 /min MABLE DESHPANDE [facility] [place] 02-21-2022 14:42-0400 Systolic blood pressure 123 mm[Hg] MABLE DESHPANDE [facility] Isabel 01-01-2022 15:45-0400 Body height 170.18 cm Clare Justin Other [facility] [employer] Other 01-01-2022 15:45-0400 Body mass index (BMI) [Ratio] 34.45 kg/m2 Clare Justin Other [facility] Other 01-01-2022 15:45-0400 Body temperature 97.8 [degF] Clare Justin Other [facility] Other 01-01-2022 15:45-0400 Body weight 99.79 kg Clare Justin Other [facility] Other 01-01-2022 15:45-0400 Diastolic blood pressure 86 mm[Hg] Clare Justin Other [facility] Other 01-01-2022 15:45-0400 Respiratory rate 18 /min Clare Justin Other [facility] Other 01-01-2022 15:45-0400 SaO2% (BldA) [Mass fraction] 100 % Clare Justin Other [facility] Other 01-01-2022 15:45-0400 Systolic blood pressure 129 mm[Hg] Clare Justin Other [facility] Other 11-09-2021 14:37-0500 Diastolic blood pressure 90 mm[Hg] Grady Toney [employer] Work Phone: [employer] DO Work Phone: 11-09-2021 14:37-0500 Systolic blood pressure 142 mm[Hg] Grady Toney Ball Work Phone: [employer] 250 DO Work Phone: 11-09-2021 14:32-0500 Body height 170.18 cm Grady Toney Ball Work Phone: [employer] 250 DO Work Phone: 11-09-2021 14:32-0500 Body mass index (BMI) [Ratio] 36.96 kg/m2 Grady Toney Ball Work Phone: [employer] 250 DO Work Phone: 11-09-2021 14:32-0500 Body surface area Derived from formula 2.17 m2 Grady E Ball Work Phone: [facility] [employer] 250 DO Work Phone: 11-09-2021 14:32-0500 Body weight 107.05 kg Grady E Ball Work Phone: [facility] [place] 250 DO Work Phone: 11-09-2021 14:32-0500 Diastolic blood pressure 89 mm[Hg] Grady E Ball Work Phone: [facility] [place] 250 DO Work Phone: 11-09-2021 14:32-0500 Heart rate 69 /min Grady E Ball Work Phone: [facility] [employer] 250 DO Work Phone: 11-09-2021 14:32-0500 Systolic blood pressure 146 mm[Hg] Grady E Ball Work Phone: [facility] [employer] 250 DO Work Phone: 08-03-2021 15:45-0400 Body height 170.18 cm Clare Margoth Other [facility] Other 08-03-2021 15:45-0400 Body mass index (BMI) [Ratio] 37.59 kg/m2 Clare Margoth Other [facility] Other 08-03-2021 15:45-0400 Body temperature 99.2 [degF] Clare Margoth Other [facility] Other 08-03-2021 15:45-0400 Body weight 108.86 kg Clare Margoth Other [facility] Other 08-03-2021 15:45-0400 Respiratory rate 18 /min Clare Margoth Other [facility] Other 08-03-2021 15:36-3440 SaO2% (BldA) [Mass fraction] 97 % Clare Justin Other [facility] Other Encounters Encounter Date Encounter Type Care Provider Facility Start: 05-21-2024 End: 05-21-2024 ambulatory JAGUAR PERKINS Not Available Start: 05-05-2024 End: 05-05-2024 ambulatory [facility] Work Phone: Start: 05-05-2024 End: 05-05-2024 Patient encounter procedure [facility] Work Phone: Start: 03-27-2024 Non-patient / Non-visit [facility] Work Phone: Start: 03-26-2024 Non-patient / Non-visit [facility] Work Phone: Start: 02-01-2024 End: 02-01-2024 ambulatory [facility] Work Phone: Start: 02-01-2024 End: 02-01-2024 Patient encounter procedure [facility] Physician [facility] Work Phone: Start: 01-08-2024 Non-patient / [facility]visit [facility] Work Phone: Start: 11-13-2023 End: 11-13-2023 ambulatory Grady Arriaga Other [facility] Other Start: 11-13-2023 Telephone encounter Grady Arriaga FP [facility] Start: 08-21-2023 End: 08-21-2023 ambulatory Grady Arriaga Other [facility] Other Start: 08-21-2023 Nursing evaluation o f patient and report Grady Arriaga [facility] Start: 07-11-2023 End: 07-11-2023 ambulatory Grayd Arriaga Other [facility] Other Start: 07-11-2023 Telephone encounter Grady Pippa FP G [facility] Start: 05-28-2023 End: 05-28-2023 ambulatory Grady Pippa Other [facility] Other Start: 05-28-2023 Office outpatient vi sit 15 minutes Grady Arriaga [facility] Start: 05-02-2023 End: 05-02-2023 ambulatory Grady Pippa Other [facility] Other Start: 05-02-2023 Nursing evaluation o f patient and report Grady Arriaga [facility] Start: 02-19-2023 End: 02-19-2023 ambulatory Grady Arriaga Other [facility] Other Start: 02-19-2023 Office outpatient vi sit 15 minutes Grady Arriaga [facility] Start: 02-07-2023 End: 02-08-[address] GRADY ARRIAGA Facility:[facility]1 Start: 01-23-2023 End: 01-23-2023 ambulatory Grady Arriaga Other [facility] Other Start: 01-23-2023 Telephone encounter Grady Arriaga J[facility] Start: 12-20-2022 End: 12-20-2022 ambulatory Grady Pippa Other [facility] Other Start: 12-20-2022 Nursing evaluation o f patient and report Grady Arriaga [facility] Start: 12-05-2022 End: 12-06-[address] GRADY ARRIAGA Facility:[facility]1 Start: 11-30-2022 End: 12-01-[address] MADHURI TAYLOR . Facility:[facility] Start: 11-29-[address] GRADY ARRIAGA Facili ty:[facility]1 Start: 11-20-2022 End: 11-20-2022 ambulatory Clare Justin Other [facility] Other Start: 11-20-2022 Office outpatient vi sit 15 minutes Clare Justin [facility] Start: 11-16-2022 (Televisit) Televisit [facility] Start: 11-16-2022 End: 11-16-2022 ambulatory Gela Ortiz Other [facility] [employer] Other Start: 10-25-2022 End: 10-26-[address] MADHURI TAYLOR . Facility:[facility]1 Start: 10-11-2022 End: 10-12-[address] MADHURI TAYLOR . Facility:[facility] Start: 10-11-2022 End: 10-12-[address] GRADY ARRIAGA Facility:[facility] Start: 09-30-2022 Encounter for genera l adult medical examination without abnormal findings DR GRADY ARRIAGA [facility] Start: 09-25-2022 End: 09-26-[address] GRADY ARRIAGA Facility:[facility] Start: 09-25-2022 End: 09-26-2022 Encounter for general adult medical examination without abnormal findings DR GRADY ARRIAGA Facility:[facility]1 Start: 09-01-2022 Adult health examination Guero napoleon Arriaga Other [facility] [employer] Other Start: 09-01-2022 Gynecological examination normal Grady Arriaga Other [facility] [employer] Other Start: 07-18-2022 Office outpatient vi sit 15 minutes Grady Arriaga Work Phone: [facility] 250 DO Work Phone: Start: 07-18-[address] Joao Colmenares Facility: Start: 07-15-2022 End: 07-15-2022 ambulatory KELLY CAMP . Facility:[facility]1 Start: 03-02-2022 End: 03-02-2022 Patient encounter procedure Yinka OJEDA [facility] Start: 02-21-2022 End: 02-21-2022 Patient encounter procedure [facility]ABLE DESHPANDE [facility] Start: 01-01-2022 End: 01-01-2022 ambulatory Clare Margoth Other [facility] [employer] Other Start: 01-01-2022 Office outpatient vi sit 15 minutes Clare Justin [facility] Start: 11-09-2021 Office outpatient vi sit 25 minutes Grady Arriaga Work Phone: [facility] 250 DO Work Phone: Start: 11-09-[address] Joao Colmenares Facility: Start: 08-03-2021 (URG) Urgent Care Visit Clare de los santos [facility] Procedures Date Procedure Procedure Detail Performing Clinician Appendectomy Grady Arriaga Work Phone: Appendectomy MABLEOBDULIA DESHPANDE Depression screening Benjiami n Pippa Other Hysterectomy Grady E Pippa Work Phone: Hysterectomy MABLE DESHPANDE Ligation of fallopian tube B enjamin E Pippa Work Phone: Ligation of fallopian tube J ENNIFER CHARLEE Operation on bladder Benjiami n E Pippa Work Phone: Screening for malign ant neoplasm of breast Grady Arriaga Other Total colonoscopy Grady Arriaga Work Phone: Plan of Treatment Date Care Activity Detail Author Start: 07-24-2023 FUV, Provider: Joao Colmenares, Status: Pen, Time: 2:00 PM FUV, Provider: Joao Colmenares, Status: Pen, Time: 2:00 PM [facility] 250 DO Work Phone: Start: 07-18-2022 FUV, Provider: Joao Colmenares, Status: Pen, Time: 1:40 PM FUV, Provider: Joao Colmenares, Status: Pen, Time: 1:40 PM [place] [address] DO Work Phone: Immunizations Immunization Date Immunization Notes Care Provider Clyde daniels 01-27-2021 Pfizer-BioNTech COVI D-19 Vacc 30 MCG/0.3ML Intramuscular Suspension Grady E Pippa Work Phone: [facility] 250 DO Work Phone: 01-05-2021 Pfizer-BioNTech COVI D-19 Vacc 30 MCG/0.3ML Intramuscular Suspension Grady E Pippa Work Phone: [place] [address] DO Work Phone: 11-21-2016 influenza, intraderm al, quadrivalent, preservative free, injectable Grady E Pippa Work Phone: [place] [address] DO Work Phone: 11-21-2016 tetanus toxoid, redu evie diphtheria toxoid, and acellular pertussis vaccine, adsorbed Grady E Pippa Work Phone: [place] [address] DO Work Phone: 08-24-2009 novel influenza-H1N1 -09, preservative-free, injectable Grady E Pippa Work Phone: [place] [address] DO Work Phone: Payers Date P[facility] Category [id number] 1970 Unknown [id number]. 356 1969 Unknown [id number] .[id number]. 356 1969 Unknown [id number] 2.840.1.820854.3.579.2. 593 1969 Unknown [id number] .[id number]. 593 1969 Unknown [id number] 2.16.840.1.456423.3.579.2. 593 1969 Unknown [id number] 2.16.840.1.119995.3.579.2. 593 1969 Unknown [id number] 2.16.840.1.781300.3.579.2. 593 1969 Unknown [id number] 2.16.840.1.301183.3.579.2. 593 1969 Unknown [id number] 2.16.840.1.909437.3.579.2. 593 1969 Unknown [id number] 2.16.840.1.279819.3.579.2. 593 1969 Unknown [id number] 2.16.840.1.984092.3.579.2. 593 1969 Unknown [id number] 2.16.840.1.261308.3.579.2. 1259 1960 Medicaid [id number] [id number] 1959 Self-pay 1959 Unknown [id number] [id number] Unknown [facility] Social History Date Type Detail Facility No alcohol use No alcohol use [facility] [employer] Other Start: 05-03-2018 End: 02-21-2022 Tobacco smoking status Never smoked tobacco (finding) [facility] Tobacco smoking status Never [facility] [place] Sex Assigned At Female [facility] Other Start: 1970 Sex Assigned At Female [facility] Clinical Notes 08-03-2021 to 08-21-2023 Note Date & Type Note Facility 08-21-2023 Evaluation note Encounter Date Diagnosis Assessment Notes Aug, Seasonal allergies (ICD-10 - J30.2) [facility] Other 08-14-2023 Evaluation note* Encounter Date Diagnosis Assessment Notes Treatment Notes Treatment Clinical Notes May, Acute bacterial conjunctivitis of left eye (ICD-10 - H10.32) Use artificial tears as much as possible. Use warm washcloth to remove crusting debris from lashes May, Dysfunction of left eustachian tube (ICD-10 - H69.92) Flonase and Claritin D. Valsalva to open ET [facility] Other 07-19-2023 Evaluation note* Encounter Date Diagnosis Assessment Notes Treatment Notes Treatment Clinical Notes Apr, Seasonal allergic rhinitis, unspecified trigger (ICD-10 - J30.2) [facility] Other 05-08-2023 Evaluation note* Encounter Date Diagnosis [...] Other Healthy diet, exercise and keep active [facility] Other 04-26-2023 NotePROCEDURE: XR FOOT RT MIN [...] Electronically authenticated by: LAM DORSEY Date: 2023-02-07 12:23[facility]04-26-2023 NotePROCEDURE: XR ANKLE RT MIN 3 VIEWS DATE: 02/07/2023 10:24 AM CDT COMPARISONS: None CLINICAL INDICATION: Right ankle pain. FINDINGS: There is no evidence of fractures or other osseous abnormalities. The ankle mortise is intact. IMPRESSION: Right ankle radiographs show no evidence of significant abnormalities. Electronically authenticated by: LAM DORSEY Date: 2023-02-07 12:19[facility]03-08-2023 Evaluation note* Encounter Date Diagnosis Assessment Notes Treatment Notes Treatment Clinical Notes Dec, Seasonal allergic rhinitis, unspecified trigger (ICD-10 - J30.2) [facility] Other 02-06-2023 Evaluation note* Encounter Date Diagnosis [...] no improvement in 2 to 3 days. [facility] Other 02-02-2023 Evaluation note* Encounter Date Diagnosis Assessment Notes Treatment Notes Treatment Clinical Notes Nov, Acute cystitis without hematuria (ICD-10 - N30.00) Discussed that bactrim could address her sinusitis symptoms as well. Take tylenol for body aches. Pt unable to provide a UA due to her work responsibilties. [facility] Other 05-19-2022 Note [id number]:127[facility] 03-02-2022 NoteCystoscopy with Urethral Dilation ? Voiding [...] if you have a fever over [facility] Discharge instructions Patient Education 03/02/2022 [...] Up Care 02/21/2022 15:13:40 With:MABLE DESHPANDE Address: [address] [place] [address] [facility] (1) When:6 weeks Comments:Call for followup appointment. Please finish your antibiotics. Monitor the urinary pattern after the dilation today. [facility]05-09-2022 Hospital Discharge instructions Patient Education 02/20/2022 14:38:38 Urinary Tract Infection, Adult, Glac-uu-Eaif Urinary Tract Infection, Adult A urinary tract [...] Follow these instructions at home: Medicines Take opgj-yti-tbwvvjs and prescription medicines only as told by [...] 03/19/2009 Document Revised: 09/18/2019 Document Reviewed: 04/10/2019 [employer] Patient Education 2020 [employer]. Follow Up Care 01/31/2022 10:31:51 With:CHARLEE OSCAR, MABLE Toney, URL Address: [address] [facility] [place] [address] When: Unknown Comments:Will schedule Cysto [facility] 03-20-2022 Evaluation note* Encounter Date Diagnosis Assessment Notes Treatment Notes Treatment Clinical Notes Dec, Dysuria (ICD-10 - R30.0) Dec, Urinary tract infection, site not specified (ICD-10 - N39.0) Drink plenty fluids, get plenty of rest. Take the Macrobid as prescribed until gone. Take the Diflucan as prescribed until gone. Continue to take the lerv-qen-kxynocg Azo for your symptoms. Follow-up with your physician if no improvement in 2 to 3 days. Dec, Hematuria, unspecified (ICD-10 - R31.9) [facility] Other 10-20-2021 Evaluation note* Encounter Date Diagnosis [...] Patient care instructions given in writting by [facility] Care At Home document. [facility] Other Evaluation + Plan note Future Appointments Appointment Date:02/23/2022 09:45:00 AM Scheduled Provider: Location:[facility] Appointment Type:Urology CALL PAT FT Appointment Date:03/02/2022 11:00:00 AM Scheduled Provider: Location:[facility] Appointment Type:Urology FT [facility] Evaluation + Plan note Future Appointments Appointment Date:04/13/2022 03:15:00 PM Scheduled Provider:MABLE DESHPANDE PA-C Location:Counts include 234 beds at the [facility] Appointment Type:[facility] noteNo InformationNort [employer] Other Evaluation noteNo assessment information available [facility] Work Phone: Hisontp general Narrative - Reported* Type Description Date Medical History Hypertension Medical History ADHD Medical History chronic depression Medical History heart palpitations Surgical History C section Surgical History hysterectomy Surgical History appendectomy Hospitalization History see above [facility] Other Hiswllz general Narrative - Reported* Type Description Date [...] History appendectomy 2010 Hospitalization History see above [facility] Other History of Present illness Narrative* Patient [...] month or earlier if the need arise [facility] 250 DO Work Phone: History of Present illness [...] year with plan to repeat her EKG [facility] 250 DO Work Phone: Hospital course Narrative No data available for this section [facility] Summary Purpose Family History No Family History Records FoundUnknown Family Member Name Dates Details Family history [...] History of stroke Unknown Diabetes mellitus Unknown Relationship Condition Age at Onset Recorded Date/T zulma father Unknown Heart disease Unknown mother History of stroke Unknown Diabetes mellitus Unknown Advance Directives No Advanced Directives Records Found Advance Directive Response Recorded Date/ Time Advance Directives No May 03 3:09pm Chief Complaint JENNIFER DIAZ is being seen for a 4 month follow-up of.JENNIFER DIAZ is being seen for a 9 month follow-up of. Chief Complaint and Reason for Visit Chief Complaint Amb Documentation Sinus infection Chief Complaint allergy shot Additional Source Comments INFORMATION SOURCE (unrecogn ized section and content) DATE CREATED AUTHOR 04/09/2021 [facility] DATE CREATED AUTHOR AUTHOR'S ORGANIZ ATION 01/05/2022 [facility] DATE CREATED AUTHOR AUTHOR'S ORGANIZ ATION 06/09/2022 Christine Piatt [facility] DATE CREATED AUTHOR AUTHOR'S ORGANIZ ATION 07/19/2022 [facility] DATE CREATED AUTHOR AUTHOR'S ORGANIZ ATION 07/19/2022 [employer] DATE CREATED AUTHOR AUTHOR'S ORGANIZ ATION 02/16/2023 [facility] DATE CREATED AUTHOR AUTHOR'S ORGANIZ ATION 05/24/2024 [facility] EPIC REASON FOR VISIT (unrecogniz ed section and [...] February 01, 2024 End: February 01, 2024 Team Status: Active Member Role Status Dates Grady Arriaga DO Primary Care Provider Active Start: March 26, 2024 Yaneth Carter Seth , DO Attending Provider Active Start: March 26, 2024 Team Status: Active Member Role Status Dates Grady Arriaga , DO Primary Care Provide r, Attending Provider Active Start: March 27, 2024 Team Status: Inactive Member Role Status Dates Grady Arriaga , DO Primary Care Provide r, Attending Provider Active Start: May 05, 2024 End: May 05, 2024 Goals (unrecognized section and content) Goals [...] BE BASED ON THE PRIMARY CLINICAL RECORDS. [facility]. provides no warranty or guarantee of the accuracy or completeness of information in this document.
[2024-06-11 11:09] LABS: Age Gdln ACOG Testing Note (.); HPV Aptima Negative (Negative); IGP, Aptima HPV, rfx 16/18,45 Note (.)
== END 2024-06-05 18:45 | disposition home or self-care (01) ==
LOC: LAB 18:44
PROVIDERS: PCP Internal Medicine; Visit Provider Obstetrics & Gynecology
DX: Z01.419 Encounter for gynecological examination (general) (routine) without abnormal findings (principal)
CPT/HCPCS: 87624; 88175

== ENCOUNTER 2024-10-14 08:29 | Outpatient (OUT) | payer BC, SELFPAY ==
[2024-10-14 09:41] LABS: Basophils Percent Auto 0.9 % (0.2-2.0); Eosinophils Absolute Auto 0.1 10^3/uL (0.0-0.7); Eosinophils Percent Auto 1.9 % (0.9-7.0); Hematocrit 40.9 % (36.0-48.0); Hemoglobin 13.5 g/dL (12.0-16.0); Immature Granulocytes Abs Auto 0.01 10^3/uL (0.00-0.03); Immature Granulocytes Pct Auto 0.3 % (0.0-0.5); Lymphocytes Absolute Auto 1.1 10^3/uL (1.2-3.8); Lymphocytes Percent Auto 34.1 % (20.5-60.0); Mean Corpuscular Hemoglobin 31.5 pg (26.7-34.0); Mean Corpuscular Volume 95.6 fL (81.0-99.0); Mean Platelet Volume 8.9 fL (9.5-13.5); Monocytes Absolute Auto 0.2 10^3/uL (0.3-0.8); Monocytes Percent Auto 6.8 % (1.7-12.0); Neutrophils Absolute Auto 1.8 10^3/uL (1.4-6.5); Platelet Count 414 10^3/uL (150-450); Red Blood Count 4.28 10^6/uL (4.20-5.40); Red Cell Distribution Width 11.9 % (11.0-15.0); White Blood Count 3.2 10^3/uL (4.0-11.0)
[2024-10-14 09:54] LABS: Alanine Aminotransferase 24 U/L (14-59); Albumin Level 3.6 g/dL (3.4-5.0); Alkaline Phosphatase 104 U/L (46-116); Anion Gap 12.1; Aspartate Amino Transferase 18 U/L (15-37); Bilirubin Total 0.3 mg/dL (0.2-1.0); Calcium 8.8 mg/dL (8.5-10.1); Carbon Dioxide 29.7 mmol/L (21.0-32.0); Chloride 106 mmol/L (98-107); Chol HDL Ratio 3.9; Cholesterol 220 mg/dL (<=200); Estimated GFR (African America >60 (>=60 mL/min/1.73m^2); Estimated GFR (Non-African Ame >60 (>=60 mL/min/1.73m^2); Globulin 3.7 g/dL; Glucose 87 mg/dL (74-106); HDL Cholesterol 57 mg/dL (40-60); Potassium 3.8 mmol/L (3.5-5.1); Sodium 144 mmol/L (136-145); Thyroid Stimulating Hormone 0.574 uIU/mL (0.358-3.740); Total Protein 7.3 g/dL (6.4-8.2); Triglycerides 100 mg/dL (<=150)
== END 2024-10-14 08:30 | disposition home or self-care (01) ==
LOC: LAB 08:30
PROVIDERS: PCP Internal Medicine; Visit Provider Internal Medicine
DX: Z00.00 Encounter for general adult medical examination without abnormal findings (principal)
CPT/HCPCS: 36415; 80053; 80061; 84443; 85025

== ENCOUNTER 2024-10-14 08:33 | Outpatient (OUT) | payer BC, SELFPAY ==
[2024-10-14 09:59] LABS: Glucose Fasting 87 mg/dL (<95)
[2024-10-14 10:32] LABS: Glucose 1 Hour 111 mg/dL (<180)
[2024-10-14 11:27] LABS: Glucose 2 Hour 81 mg/dL (<155)
[2024-10-16 12:07] LABS: C-Peptide, Serum 10.2 ng/mL (1.1-4.4)
== END 2024-10-14 08:34 | disposition home or self-care (01) ==
LOC: LAB 08:33
PROVIDERS: PCP Internal Medicine; Visit Provider General Practice
DX: Z00.00 Encounter for general adult medical examination without abnormal findings (principal); R73.01 Impaired fasting glucose
CPT/HCPCS: 36415; 80053; 80061; 82951; 84443; 84681; 85025

== ENCOUNTER 2024-11-30 11:56 | Emergency (ER) | payer BC, SELFPAY ==
--- OUTSIDE RECORDS SUMMARY | 2024-11-30 12:05 | XMS_ITS | CCD ---
Author Organization [facility]iniSy[facility] Care Team Providers Care Transformer Inspector Name Role Phone Grady Arriaga Unavailable Unavailable Unavailable GRADY ARRIAGA Primary Care Physician Clare Justin Unavailable Dedra, Dr. Ulrich Referring Unavaila ble Grady Arriaga Primary Care Unavailchago Colmenares, Dr. Ulrich Attending Unavaila madhuri Colmenares, Dr. Ulrich Referring Unavaila Grady Jaime ladonna Primary Care Unavailchago Colmenares, Dr. Ulrich Attending Unavaila ble Gela Ortiz Unavailable Grady Arriaga Unavailable PIPPA, DR GAINES Primary Care Unavailable JUAN ., DR DHALIWAL Consulting Unavailable JUAN ., DR DHALIWAL Attending Unavailable JUAN ., DR DHALIWAL Admitting Unavailable JUAN ., DR DHALIWAL Admitting Unavailable JUAN ., DR DHALIWAL Attending Unavailable PIPPA, DR GAINES Primary Care Unavailable MCCUNE, DR CARLOS Gipson Consulting Unavailable JUAN ., DR DHALIWAL Consulting Unavailable JUAN ., DR DHALIWAL Admitting Unavailable JUAN ., DR DHALIWAL Consulting Unavailable JUAN ., DR DHALIWAL Attending Unavailable PIPPA, DR GAINES Primary Care Unavailable ZOË ., KELLY Attending Unavailable ZOË ., KELLY Admitting Unavailable PIPPA, DR GAINES Primary Care Unavailable CARLOS RUBI Consulting Unavailable ZOË ., KELLY Consulting Unavailable ADAIR SCHMITT Consulting Unavaila [...] Unavailable PIPPA, DR GAINES Primary Care Unavailable JOSIAH DAVIES Consulting Unavailable JOSIAH DAVIES Attending Unavailable JOSIAH DAVIES Admitting Unavailable LAM DORSEY Consulting Unavailable JAGUAR PERKINS Attending Unavailable ARMANDO MARTINEZ Attending Unavailable Unavailable Primary Care Provider Unavailabl e Allergies Allergy Classification Reported Allergen(s) Allergy Type Date of Onset Reaction(s) Facility (3 sources) patient allergy list reviewed by nurse or physicia Propensity to adverse reactions 8 Comment:Done [facility] Other (3 sources) NONE CURRENT Propensity to adverse reactions 0 NONE CURRENT [facility] Other (3 sources) Allergies Reconciled Propensity to adverse reactions Unknown [facility] Other Medications Current Medications Medication Drug Class(es) Dates Sig (Normalized) Sig (Original) ALPRAZolam 0.25 mg oral tablet (2 sources) Benzodiazepine Start: 06-23-2024 take 1 tablet by mouth once daily as needed for anxiety Alprazolam 0.25 mg tablet Active 0.25 MG PO Daily as needed for anxiety 07 24June 22, 2024 11:00pm aspirin 81 mg delayed release oral tablet (20 sources) Platelet Aggregation Inhibitor, Nonsteroidal Anti-inflammatory Drug Start: 01-08-2024 take 1 tablet by mouth once daily Aspirin 81 mg tablet,delayed release (DR/EC) Active 81 MG PO Daily January 07, 2024 11:00pm Start: 02-21-2022 take 1 mg by mouth [...] orally bid for 10 day(s) Jul, Active buPROPion (11 sources) Aminoketone Start: 07-21-2024 take 1 tablet by mouth once daily in the morning Bupropion Hcl 150 mg tablet extended release 24 hr Active 0 .ROUTE .COMPLEX July 21, 2024 7:43am TAKE 1 TABLET BY MOUTH EVERY MORNING Start: 06-23-2024 End: 07-21-2024 take 1 tablet by mouth once daily in the morning Bupropion Hcl (Wellbutrin Xl) 150 mg tablet extended release 24 hr Discontinued 150 MG PO Every morning June 22, 2024 11:00pm July 21, 2024 7:43am Start: 07-04-2021 take 1 tablet by daysi th once daily buPROPion HCl ER (SR) 150 MG Oral Tablet Extended Release 12 Hour Take 1 tablet by mouth daily Quantity: 60 Refills: 0 Ordered: 05-Jul-2021 DO Start : 04-Jul-2021 Active Wellbutrin Not-T aking Wellbutrin Activ e cephalexin 500 mg oral capsule (5 sources) Cephalosporin Antibacterial Start: 06-05-2024 End: 07-05-2024 take 1 capsule by mouth in the morning cephalexin (Keflex) 500 MG capsule Indications: Acute vaginitis Take 1 capsule (500 mg) by mouth in the morning and 1 capsule (500 mg) before bedtime. 60 capsule 1 06/05/2024 07/05/2024 Active Start: 02-21-2022 take 1 mg by mouth e very twelve hours Keflex 500 mg Cap mg cap(s), Oral, q12hr, Refills(s) 0 Start Date: 02/21/22 Status: Ordered ciprofloxacin 500 mg oral tablet (1 source) Quinolone Antimicrobial Start: 02-28-2022 Cipro 500 mg Tab See Instructions, Take 1 tab day prior to procedure and 1 tab day of procedure after the procedure, # 2 tab(s), Refills(s) 0, Pharmacy: [id number], 169, cm, 02/28/22 9:30:00 EDT, Height/Length Dosing, 95, kg, 02/21/22 14:43:00 EDT, Marciano... Start Date: 02/28/22 Status: Ordered Claritin-D 24 Hour 10-240 MG (1 source) Start: 05-28-2023 take 10-240 mg by mouth once daily Claritin-D 24 Hour 10-240 MG 1 tablet Orally Once a day for 30 days May, Active dexamethasone 1 mg/ml / neomycin 3.5 mg/ml / polymyxin b 23620 unt/ml ophthalmic suspension (1 source) Aminoglycoside Antibacterial, Polymyxin-class Antibacterial, Corticosteroid Start: 11-30-2020 take 2 drop(s) into the eye(s) four times daily Maxitrol 3.5-91554-0.1 2 drops into affected eye Ophthalmic Four times a day for 4 days Nov, Active escitalopram 5 mg oral tablet (6 sources) Serotonin Reuptake Inhibitor take 1 tablet by mouth once daily in the evening Escitalopram Oxalate 5 MG 1 tablet Orally Once a day, in evening for 30 days Active Lexapro Active fluticasone propionate 0.05 mg/actuat metered dose nasal spray (4 sources) Corticosteroid Start: 06-13-2024 take 2 spray(s) nasal route once daily Fluticasone Propionate (Flonase Allergy Relief) 50 mcg/actuation spray,suspension Active 2 SPRAY INTRANASAL Daily June 12, 2024 11:00pm administer 2 spray into each nostril Start: 08-03-2021 take 2 spray(s) nasa l route once daily FLONASE 50 mcg 2 sprays nasally qd Jul, Active hydroCHLOROthiazide 12.5 mg / losartan potassium 50 mg oral tablet (20 sources) Thiazide Diuretic, Angiotensin 2 Receptor Ophelia Start: 07-03-2024 take 1 tablet by mouth once daily Losartan-Hydrochlorothiazide 50-12.5 mg tablet Active 0 .ROUTE .COMPLEX 90 July 03, 2024 7:40am TAKE 1 TABLET BY MOUTH DAILY Start: 04-06-2021 End: 07-03-2024 take 1 tablet by mouth once daily Losartan-Hydrochlorothiazide 50-12.5 mg tablet Discontinued 1 TAB PO Daily January 07, 2024 11:00pm July 03, 2024 7:40am 24 hr loratadine 10 mg / pseudoephedrine sulfate 240 mg extended release oral tablet (2 sources) alpha-Adrenergic Agonist Start: 05-28-2023 take 1 tablet by mouth every twenty-four hours Claritin-D 24 Hour 10-240 MG 1 tablet Orally Once a day for 30 days May, Active Losartan Potassium-HCTZ (2 sources) Losartan Potassium-HCTZ Active Metoprolol (20 sources) beta-Adrenergic Ophelia Start: 10-02-2024 take 1 tablet by mouth once daily Metoprolol Succinate 25 mg tablet extended release 24 hr Active 0 .ROUTE .COMPLEX October 02, 2024 9:46am TAKE 1 TABLET BY MOUTH DAILY Start: 05-24-2021 End: 10-02-2024 take 1 tablet by mouth once daily Metoprolol Succinate 25 mg tablet extended release 24 hr Discontinued 25 MG PO Daily January 07, 2024 11:00pm October 02, 2024 9:47am take 1 capsule by mo [facility] once daily Metoprolol Succinate 25 MG 1 capsule Orally Once a day Active Metoprolol Succi sigrid Active 24 hr phentermine 7.5 mg / topiramate 46 mg extended release oral capsule (11 sources) Sympathomimetic Amine Anorectic Start: 02-21-2022 take 1 capsule by mouth once daily in the morning Qsymia 7.5 mg-46 mg oral capsule, extended release cap(s), Oral, qAM, Refill(s) 0 Start Date: 02/21/22 Status: Ordered predniSONE 20 mg oral tablet (1 source) Start: 08-03-2021 take 1 tablet by mouth every twelve hours predniSONE 20 MG 1 tablet Orally bid for 5 day(s) Jul, Active sulfamethoxazole 800 mg / trimethoprim 160 mg oral tablet (9 sources) Dihydrofolate Reductase Inhibitor Antibacterial, Sulfonamide Antimicrobial Start: 11-16-2022 take 1 tablet by mouth every twelve hours Bactrim DS 800-160 MG 1 tablet Orally Twice a day for 10 day(s) Nov, Active Completed/Discontinued Medications Medication Drug Class(es) Dates Sig (Normalized) Sig (Original) azithromycin 250 mg oral tablet (7 sources) Macrolide Antimicrobial Start: 06-13-2024 Azithromycin Active 0 PO .COMPLEX June 13, 2024 12:00am For 250 mg dose pack: take 500 mg today (day 1), then 250 mg for 4 days (days 2-5) PO Start: 02-01-2024 End: 10-21-2024 Azithromycin 250 mg tablet D iscontinued 0 PO .COMPLEX June 12, 2024 11:00pm October 21, 2024 2:58pm For 250 mg dose pack: take 500 mg today (day 1), then 250 mg for 4 days (days 2-5) PO cefixime 400 mg oral capsule (3 sources) Cephalosporin Antibacterial Start: 05-20-2024 End: 06-05-2024 cefixime (Suprax) capsule 05/20/2024 06/05/2024 Discontinued doxycycline monohydrate 100 mg oral capsule (3 sources) Tetracycline-class Drug Start: 05-20-2024 End: 06-05-2024 doxycycline (Monodox) 100 MG capsule 05/20/2024 06/05/2024 Discontinued fluconazole 150 mg oral tablet (11 sources) Azole Antifungal Start: 01-01-2022 Diflucan 150 MG 1 tablet Orally as directed Take 1 tablet p.o. today, repeat in 7 days. Dec, Not-Taking/PRN LORazepam 0.5 mg oral tablet (9 sources) Benzodiazepine Start: 01-08-2024 End: 06-13-2024 take 1 tablet by mouth once daily as needed for anxiety Lorazepam 0.5 mg tablet Discontinued 0.5 MG PO January 07, 2024 11:00pm June 13, 2024 4:23pm 1/2 - 1 Orally Once a day PRN anxiety Start: 10-09-2023 LORazepam 0.5 MG 1/2 - 1 Orally Once a day PRN anxiety for 30 days Sep, Active methylPREDNISolone 4 mg oral tablet (12 sources) Corticosteroid Start: 12-08-2023 End: 06-05-2024 methylPREDNISolone (Medrol Dospak) 4 MG tablets TAKE BY MOUTH DIRECTED ON PACKAGE 12/08/2023 06/05/2024 Discontinued Start: 11-20-2022 Medrol 4 MG as directed Orally as directed for 6 days Nov, Active nitrofurantoin, macrocrystals 25 mg / nitrofurantoin, monohydrate 75 mg oral capsule (11 sources) Nitrofuran Antibacterial Start: 01-01-2022 take 1 capsule by mouth every twelve hours Macrobid 100 MG 1 cap(s) Orally bid for 5 day(s) Dec, Not-Taking/PRN pantoprazole (20 sources) Proton Pump Inhibitor Start: 01-08-2024 End: 06-13-2024 take 1 tablet by mouth once daily in the morning Pantoprazole Discontinued 0 .ROUTE .COMPLEX January 08, 2024 5:36pm June 13, 2024 5:23pm TAKE 1 TABLET BY MOUTH EVERY MORNING ON AN EMPTY STOMACH Start: 01-08-2024 take 1 tablet by daysi th once daily in the morning Pantoprazole Active 0 .ROUTE .COMPLEX January 08, 2024 5:36pm TAKE 1 TABLET BY MOUTH EVERY MORNING ON AN EMPTY STOMACH Start: 01-08-2024 End: 01-08-2024 take 1 tablet by mouth once daily Pantoprazole 40 mg tablet,delayed release (DR/EC) Discontinued 40 MG PO Daily January 07, 2024 11:00pm January 08, 2024 4:36pm Start: 02-21-2022 Protonix 40 mg tablet Daily, Refills(s) 0 Start Date: 02/21/22 Status: Ordered take 1 tablet by daysi th once daily in the morning Pantoprazole Sodium 40 mg TAKE 1 TABLET BY MOUTH EVERY MORNING ON AN EMPTY STOMACH for 30 Active Pantoprazole 40 mg tablet,delayed release (DR/EC) (1 source) Start: 01-08-2024 End: 06-13-2024 take 1 tablet by mouth once daily in the morning Pantoprazole 40 mg tablet,delayed release (DR/EC) Discontinued 0 .ROUTE .COMPLEX January 08, 2024 4:36pm June 13, 2024 4:23pm TAKE 1 TABLET BY MOUTH EVERY MORNING ON AN EMPTY STOMACH microencapsulated potassium chloride 20 meq extended release oral tablet (20 sources) Start: 01-08-2024 End: 06-13-2024 take 1 tablet by mouth once daily Potassium Chloride 20 mEq tablet,ER particles/crystals Discontinued 0 .ROUTE .COMPLEX January 08, 2024 4:36pm June 13, 2024 4:24pm TAKE 1 TABLET BY MOUTH DAILY Start: 01-08-2024 End: 01-08-2024 take 1 tablet by mouth once daily Potassium Chloride 20 mEq tablet,ER particles/crystals Discontinued 20 MEQ PO Daily January 07, 2024 11:00pm January 08, 2024 4:36pm Start: 07-04-2021 take 1 tablet by daysi [...] TABLET BY MOUTH DAILY for 30 Active rosuvastatin calcium 10 mg oral tablet (13 sources) HMG-CoA Reductase Inhibitor Start: 05-24-2021 take 1 tablet by mouth once daily in the evening Rosuvastatin Calcium 10 MG Oral Tablet TAKE 1 TABLET BY MOUTH EVERY EVENING Quantity: 30 Refills: 0 Ordered: 23-Sep-2021 DO Start : 24-May-2021 Active Crestor Not-Taki ng/PRN Crestor Not-Taki ng Crestor Active sulfacetamide sodium 100 mg/ml ophthalmic solution (7 sources) Sulfonamide Antibacterial Start: 02-01-2024 End: 06-13-2024 take 1 drop(s) into the eye(s) four times daily Sulfacetamide Sodium 10 % drops Discontinued 2 DROPS EYE-BOTH Four times daily 5 January 31, 2024 11:00pm June 13, 2024 4:24pm Start: 02-01-2024 End: 06-13-2024 take 1 drop(s) into the eye(s) four times daily Sulfacetamide Sodium Discontinued 2 DROPS EYE-BOTH Four times daily 5 February 01, 2024 12:00am June 13, 2024 5:24pm Start: 05-28-2023 take 2 drop(s) into the eye(s) four times daily Sulfacetamide Sodium 10 % 2 drops Ophthalmic qid for 7 days May, Active triamcinolone acetonide 40 mg/ml injectable suspension (16 sources) Corticosteroid Start: 08-21-2023 Kenalog-40 Aug, 60 mg Start: 12-20-2022 Kenalog-40 Apr, 40 mg Problems Active Problems Problem Classification Problem Date Documented Date Episodic/Chronic Acquired foot deformities (1 source) Foot drop, right foot Episodic Anxiety disorders (15 sources) Generalized anxiety disorder; Translations: [Generalized anxiety disorder] 06-23-2024 Chronic Attention-deficit, conduct, and disruptive behavior disorders (3 sources) Attention deficit hyperactivity disorder, predominantly inattentive type; Translations: [Attention deficit disorder of childhood without mention of hyperactivity] Onset: 12-07-2015 Chronic Cardiac dysrhythmias (3 sources) Nonsustained ventricular tachycardia ; Translations: [Paroxysmal ventricular tachycardia] Chronic Cardiac dysrhythmias (19 sources) Palpitations; Translations: [Palpitations] 06-23-2024 Episodic Conditions associated with dizziness or vertigo (15 sources) Dizziness; Translations: [Dizziness and giddiness] Episodic Deficiency and other anemia (4 sources) Anemia; Translations: [Anemia, unspecified] 03-27-2024 Episodic Diabetes mellitus without complication (14 sources) Impaired fasting glycemia; Translations: [Impaired fasting glucose] Onset: 10-12-2022 Episodic Esophageal disorders (8 sources) Esophageal reflux finding; Translations: [Esophageal reflux] Onset: 09-03-2014 Chronic Esophageal disorders (8 sources) Esophageal disorders; Translations: [Gastroesophageal reflux disease with esophagitis without hemorrhage] Essential hypertension (20 sources) Hypertensive disorder; Translations: [Unspecified essential hypertension] [...] respiratory manifestations] Episodic Miscellaneous mental health disorders (15 sources) 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; 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 Mood disorders (20 sources) Mild recurrent [...] less than 30; Translations: [Overweight] Episodic Other screening for suspected conditions (not mental disorders or infectious disease) (13 sources) Electrocardiogram abnormal; Translations: [Nonspecific abnormal electrocardiogram [ECG] [EKG]] Onset: 11-30-2022 Resolved: 08-28-2021 Episodic Other skin disorders (13 sources) Vesicular [...] allergic rhinitis] Chronic Other upper respiratory infections (18 sources) Acute sinusitis, unspecified; Translations: [Acute pharyngitis] Onset: 09-08-2013 Resolved: 08-03-2021 Episodic Sprains and strains (6 sources) Neck [...] diseases Z20.828] Onset: 08-03-2021 Resolved: 05-20-2022 Episodic Inflammatory diseases of female pelvic organs (2 sources) Acute vaginitis; Translations: [Acute vaginitis] 06-05-2024 Episodic Malaise and fatigue (3 sources) Fatigue; Translations: [Other fatigue] Onset: 02-01-2022 Resolved: 05-20-2022 Episodic Miscellaneous mental health disorders (3 sources) Emotional state finding; Translations: [Other symptoms and signs involving emotional state] Resolved: 02-09-2021 Episodic Nausea and vomiting (3 sources) Nausea and vomiting; Translations: [Nausea with vomiting, unspecified] Onset: 05-05-2015 Episodic Other aftercare (1 source) Other detention (current) drug therapy; Translations: [[employer] CURRENT DRUG THERAPY] Onset: 07-18-2022 Episodic Other [...] index 28.0-28.9, adult] Onset: 12-26-2017 Episodic Other skin disorders (3 sources) Sebaceous cyst; Translations: [Sebaceous cyst] Onset: 02-25-2015 Episodic Otitis media and related conditions (7 sources) Eustachian tube salpingitis; Translations: [Unspecified Eustachian salpingitis, right ear] Onset: 12-26-2017 Resolved: 05-20-2022 Episodic Residual codes; unclassified (15 sources) Postmenopausal state; Translations: [Asymptomatic menopausal state] Onset: 01-06-2022 06-05-2024 Episodic Spondylosis; intervertebral disc disorders; other back [...] Range Facility Basophils Auto (Bld) [#/Vol] on 10-14-2024 Basophils (Bld) [#/Vol] Automated basoph il count 0.0-0.1 [facility] Basophils/100 WBC Auto (Bld) on 10-14-2024 Basophils/100 WBC (Bld) Automated basophil % 0. 2-2.0 [facility] Cholesterol in LDL Calc [Mas s/Vol]on 10-14-2024 Cholesterol in LDL [Mass/Vol] Cholesterol in LDL [Mass/volume] in Serum or Plasma by calculation [facility] Comment on above: <100 mg/dl [id number] 0-129 mg/dl NEAR OR ABOVE [id number] mg/dl BORDERLINE [id number] mg/dl HIGH>190 mg/dl VERY HIGH Cholesterol in VLDL Calc [Ma ss/Vol]on 10-14-2024 Cholesterol in VLDL [Mass/Vol] Cholesterol in VLDL [Mass/volume] in Serum or Plasma by calculation [facility] Eosinophils/100 WBC Auto (Bl d)on 10-14-2024 Eosinophils/100 WBC (Bld) Automated eosinophil % 0.9-7.0 [facility] Erythrocyte distribution wid th Auto (RBC) [Ratio]on 10-14-2024 Erythrocyte distribution width (RBC) [Ratio] Erythrocyte distribution width [Ratio] by Automated count 11.0-15.0 [facility] Estimated glomerular filtrat ion rate (GFR) non- Americanon 10-14-2024 GFR/1.73 sq M.predicted among non-blacks MDRD (S/P/Bld) [Vol rate/Area] Estimated glomerular filtration rate (GFR) non- >=60 mL/min/1.73 m 2 [facility] Globulin Calc (S) [Mass/Vol] on 10-14-2024 Globulin (S) [Mass/Vol] Serum globulin measurement by calculation (mass/volume) [facility] Hematocrit Auto (Bld) [Volum e fraction]on 10-14-2024 Hematocrit (Bld) [Volume fraction] Hematocrit [Volume Fraction] of Blood by Automated count 36.0-48.0 [facility] Hemoglobin [Mass/volume] in Bloodon 10-14-2024 Hemoglobin (Bld) [Mass/Vol] Hemoglobin [Mass/volume] in Blood 12.0-16.0 [facility] Laboratory - Chemistry and C hemistry - challengeon 10-14-2024 Albumin [Mass/Vol] 3.6 g/dL 3.4-5.0 [facility] ALP [Catalytic activity/Vol] 104 U/L 46-116 [facility] ALT [Catalytic activity/Vol] 24 U/L 14-59 [facility] AST [Catalytic activity/Vol] 18 U/L 15-37 [facility] Bilirubin [Mass/Vol] 0.3 mg/dL 0.2-1.[address] [facility] Calcium [Mass/Vol] 8.8 mg/dL 8.5-10.1 [facility] Chloride [Moles/Vol] 106 mmol/L 98-[address] [facility] Cholesterol [Mass/Vol] 220 mg/dL High <=200 [facility] Cholesterol in HDL [Mass/Vol] 57 mg/dL 40-60 [facility] Comment on above: > or =60 mg/dl - LOW CARDIOVASCULAR RISK<40 mg/dl - HIGH CARDIOVASCULAR RISK CO2 [Moles/Vol] 29.7 mmol/L 21.0-32.0 [facility] Creatinine [Mass/Vol] 0.75 mg/dL 0.55-1.02 [facility] GFR/1.73 sq M.predicted MDRD (S/P/Bld) [Vol rate/Area] mL/min/{1.73_m2} >=60 mL/min/1.73 m 2 [facility] Glucose [Mass/Vol] 87 mg/dL 74-106 [facility] Potassium [Moles/Vol] 3.8 mmol/L 3.5-5.1 [facility] Protein [Mass/Vol] 7.3 g/dL 6.4-8.2 [facility] Sodium [Moles/Vol] 144 mmol/L 136-145 [facility] Triglyceride [Mass/Vol] 100 mg/dL <=150 [facility] TSH Qn 0.574 m[IU]/L 0.358-3.740 [facility] Urea nitrogen [Mass/Vol] 12.0 mg/dL 7.0-18.0 [facility] Urea nitrogen/Creatinine [Mass ratio] 16.0 mg/mg [facility] Laboratory - Hematology and Cell countson 10-14-2024 Immature granulocytes/100 WBC (Bld) 0.3 % 0.0-0.5 [facility] Leukocytes [#/volume] correc abraham for nucleated erythrocytes in Blood by Automated counon 10-14-2024 WBC corrected for nucl RBC Auto (Bld) [#/Vol] Leukocytes [#/volume] corrected for nucleated erythrocytes in Blood by Automated coun Low 4.0-11.0 [facility] Lymphocytes Auto (Bld) [#/Vo l]on 10-14-2024 Lymphocytes (Bld) [#/Vol] Lymphocytes [#/volume] in Blood by Automated count Low 1.2-3.8 [facility] Lymphocytes/100 WBC Auto (Bl d)on 10-14-2024 Lymphocytes/100 WBC (Bld) Lymphocytes/100 leukocytes in Blood by Automated count 20.5-60.0 [facility] MCH Auto (RBC) [Entitic mass ]on 10-14-2024 MCH (RBC) [Entitic mass] MCH [Entitic mass] by Automated count 26.7-34.0 [facility] MCHC Auto (RBC) [Mass/Vol]on 10-14-2024 MCHC (RBC) [Mass/Vol] MCHC [Mass/volume] by Automated count 29.9-35.2 [facility] MCV Auto (RBC) [Entitic vol] on 10-14-2024 MCV (RBC) [Entitic vol] MCV [Entitic vol ume] by Automated count 81.0-99.0 [facility] Monocytes Auto (Bld) [#/Vol] on 10-14-2024 Monocytes (Bld) [#/Vol] Automated blood monocyte count Low 0.3-0.8 [facility] Monocytes/100 WBC Auto (Bld) on 10-14-2024 Monocytes/100 WBC (Bld) Automated monocyte % 1. 7-12.0 [facility] Neutrophils Auto (Bld) [#/Vo l]on 10-14-2024 Neutrophils (Bld) [#/Vol] Neutrophils [#/volume] in Blood by Automated count 1.4-6.5 [facility] Neutrophils/100 WBC Auto (Bl d)on 10-14-2024 Neutrophils/100 WBC (Bld) Automated neutrophil % 43.0-75.0 [facility] No Panel Informationon 10-14 C-Peptide 10.2 ng/mL Abnormal 1.1-4.4 [facility] Comment on above: C-Peptide reference interval is for fasting patients.Performed at: - [facility] [id number] Director: Rafita Thomas PhD, Phone: [phone] Eosinophils # (Auto) 0.1 10 3/uL 0.0-0.7 [facility] Immature Granulocyte # (Auto) 0.01 10 3/uL 0.00-0.03 [facility] Platelet mean volume Auto (B ld) [Entitic vol]on 10-14-2024 Platelet mean volume (Bld) [Entitic vol] Platelet mean volume [Entitic volume] in Blood by Automated count Low 9.5-13.5 [facility] Platelets Auto (Bld) [#/Vol] on 10-14-2024 Platelets (Bld) [#/Vol] Platelets [#/vol ume] in Blood by Automated count 150-450 [facility] RBC Auto (Bld) [#/Vol]on RBC (Bld) [#/Vol] Erythrocytes [#/volume] in Blood by Automated count 4.20-5.40 [facility] Serum or plasma albumin/glob ulin mass ratioon 10-14-2024 Albumin/Globulin [Mass ratio] Serum or plasma albumin/globulin mass ratio [facility] Serum or plasma anion gap de terminationon 10-14-2024 Anion gap [Moles/Vol] Serum or plasma an ion gap determination [facility] Serum or plasma glucose melanie urement 2 hours post 75 gm oral glucose (mass/volume)on 10-14-2024 Glucose 2 Hr post 75 g glucose PO [Mass/Vol] Serum or plasma glucose measurement 2 hours post 75 gm oral glucose (mass/volume) [facility] Comment on above: GLU FAST 87 (<95) Co l: 10/14/24 0843 GLU 1HR 111 (<180) Col: 10/14/24 0947 GLU 2HR 81 (<155) Col: 10/14/24 1047 Serum or plasma total choles terol/high density lipoprotein (HDL) cholesterol mass hussain 10-14-2024 Cholesterol.total/Natalee sterol in HDL [Mass ratio] Serum or plasma total cholesterol/high density lipoprotein (HDL) cholesterol mass [facility] Comment on above: 3.3 - 4.4 LOW RISK4. 4 - 7.1 AVERAGE RISK7.1 - 11.0 MODERATE RISK>11.0 HIGH RISK IGP,APTIMA HPV,AGE GDLNon AGE GDLN ACOG TESTING Note . [facility] Comment on above: TESTS RESULT FLAG UN ITS REF RANGE LAB Clinician Provided Cytology Information Source.............Vagina No. of containers..01 ThinPrep Vial Age Algo ACOG Nichole... 30-65 01 FLAG LEGEND: L-Low Normal,H-High Normal,LL-Alert Low,HH-Alert High <-Panic Low,>-Panic High,A-Abnormal,AA-Critical Abnormal Performed at: 01 =G [facility] [place] [address] [place] [address] Seble Lopez MD, HPV APTIMA Negative Negative [facility] Comment on above: This nucleic acid am plification test detects fourteen high- risk HPV types (16,18,31,33,35,39,45,51,52,56,58,59,66,68) without differentiation. Performed at: =G - [facility] [address] [place] [place], [place] [id number] Arabic Teacher: Seble Lopez MD, Phone: [phone] Performed at: - [facility], [place] [id number] Arabic Teacher: Seble Lopez MD, Phone: [phone] IGP, APTIMA HPV, RFX 16/18,45 Note . [facility] Comment on above: TESTS RESULT FLAG U NITS REF RANGE LAB DIAGNOSIS: 02 NEGATIVE FOR INTRAEPITHELIAL LESION OR MALIGNANCY. Specimen adequacy: 02 Satisfactory for evaluation. Performed by: [place], Machined [employer] Quality Inspector ([facility]) . 02 Note: Note 02 The Pap smear is a screening test designed to aid in the detection of premalignant and malignant conditions of the uterine cervix. It is not a diagnostic procedure and should not be used as the sole means of detecting cervical cancer. Both false-positive and false-negative reports do occur. Test Methodology: Note 02 This liquid based ThinPrep(R) pap test was screened with the use of an image guided system. HPV Genotype Reflex Note 02 Criteria not met, HPV Genotype not performed. FLAG LEGEND: L-Low Normal,H-High Normal,LL-Alert Low,HH-Alert High <-Panic Low,>-Panic High,A-Abnormal,AA-Critical Abnormal Performed at: 02 WB [facility] [place] [address] [place] [address] Seble Lopez MD, [facility] Human papilloma virus 16+18+ 31+33+35+39+45+51+52+56+58+59+66+68 DNA [Presence] in Raul 06-05-2024 HPV 16+18+31+33+35+39+45+51 +52+56+58+59+66+68 DNA Probe+sig amp Ql (Cvx) Negative Negative [facility] Comment on above: This nucleic acid am plification test detects fourteen high-risk HPV types (16,18,31,33,35,39,45,51,52,56,58,59,66,68)without differentiation.Performed at: =G - [facility] [address] [id number] Director: Seble Lopez MD, Phone: [phone] at: - [facility] [id number] Director: Seble Lopez MD, Phone: [phone] No Panel Informationon 06-05 HPV High Risk Other Comment Note . [facility] Comment on above: TESTS RESULT FLAG UN ITS REF RANGE LAB -DIAGNOSIS: 02 NEGATIVE FOR INTRAEPITHELIAL LESION OR MALIGNANCY.Specimen adequacy: 02 Satisfactory for evaluation.Performed by: [place] [employer] Quality Inspector ([facility]). 02Note: Note 02 The Pap smear is a screening test designed to aid in the detection of premalignant and malignant conditions of the uterine cervix. It is not a diagnostic procedure and should not be used as the sole means of detecting cervical cancer. Both false-positive and false-negative reports do occur.Test Methodology: Note 02 This liquid based ThinPrep(R) pap test was screened with the use of an image guided system.HPV Genotype Reflex Note 02 Criteria not met, HPV Genotype not performed. -------- FLAG LEGEND: L-Low Normal,H-High Normal,LL-Alert Low,HH-Alert High <-Panic Low,>-Panic High,A-Abnormal,AA-Critical Abnormal ------Performed at:02 WB [facility] [address] [place] [address] Seble Lopez MD, Reference Lab Test Patient Age Note . [facility] Comment on above: TESTS RESULT FLAG UN ITS REF RANGE LAB - Clinician Provided Cytology Information Source.............Vagina No. of containers..01 ThinPrep VialAge Meño PERSON Nichole... 30-65 FLAG LEGEND: L-Low Normal,H-High Normal,LL-Alert Low,HH-Alert High <-Panic Low,>-Panic High,A-Abnormal,AA-Critical Abnormal ------Performed at:01 =G [facility] [place] [address] [place] [address] Seble Lopez MD, Basophils Auto (Bld) [#/Vol] on 03-27-2024 Basophils (Bld) [#/Vol] 0.0 10 3/uL 0.0-0.1 [facility] Basophils/100 WBC Auto (Bld) on 03-27-2024 Basophils/100 WBC (Bld) 1.2 % 0.2-2.0 [facility] Cholesterol in LDL Calc [Mas s/Vol]on 03-27-2024 Cholesterol in LDL [Mass/Vol] 143.0 mg/dL [facility] Comment on above: <100 mg/dl [id number] 0-129 mg/dl NEAR OR ABOVE [id number] mg/dl BORDERLINE [id number] mg/dl HIGH>190 mg/dl VERY HIGH Cholesterol in VLDL Calc [Ma ss/Vol]on 03-27-2024 Cholesterol in VLDL [Mass/Vol] 14.4 mg/dL [facility] Eosinophils/100 WBC Auto (Bl d)on 03-27-2024 Eosinophils/100 WBC (Bld) 1.2 % 0.9-7.0 [facility] Erythrocyte distribution wid th Auto (RBC) [Ratio]on 03-27-2024 Erythrocyte distribution width (RBC) [Ratio] 11.9 % 11.0-15.0 [facility] Estimated glomerular filtrat ion rate (GFR) non- Americanon 03-27-2024 GFR/1.73 sq M.predicted among non-blacks MDRD (S/P/Bld) [Vol rate/Area] mL/min/{1.73_m2} >=60 [facility] Globulin Calc (S) [Mass/Vol] on 03-27-2024 Globulin (S) [Mass/Vol] 4.2 g/dL F [facility] Glucose mean value [Mass/vol ume] in Blood Estimated from glycated hemoglobinon 03-27-2024 Average glucose Estimated from glycated hemoglobin (Bld) [Mass/Vol] 105 mg/dL [facility] Hematocrit Auto (Bld) [Volum e fraction]on 03-27-2024 Hematocrit (Bld) [Volume fraction] 33.4 % Low 36.0-48.0 [facility] Hemoglobin [Mass/volume] in Bloodon 03-27-2024 Hemoglobin (Bld) [Mass/Vol] 11.1 g/dL Low 12.0-16.0 [facility] Laboratory - Chemistry and C hemistry - challengeon 03-27-2024 Albumin [Mass/Vol] 3.0 g/dL Low 3.4-5.0 [facility] ALP [Catalytic activity/Vol] 93 U/L 46-116 [facility] ALT [Catalytic activity/Vol] 24 U/L 14-59 [facility] AST [Catalytic activity/Vol] 22 U/L 15-37 [facility] Bilirubin [Mass/Vol] 0.6 mg/dL 0.2-1.[address] [facility] Calcium [Mass/Vol] 9.0 mg/dL 8.5-10.1 [facility] Chloride [Moles/Vol] 104 mmol/L 98-[address] [facility] Cholesterol [Mass/Vol] 212 mg/dL High <=200 [facility] Cholesterol in HDL [Mass/Vol] 55 mg/dL 40-60 [facility] Comment on above: > or =60 mg/dl - LOW CARDIOVASCULAR RISK<40 mg/dl - HIGH CARDIOVASCULAR RISK CO2 [Moles/Vol] 30.3 mmol/L 21.0-32.0 [facility] Creatinine [Mass/Vol] 0.80 mg/dL 0.55-1.02 [facility] GFR/1.73 sq M.predicted MDRD (S/P/Bld) [Vol rate/Area] mL/min/{1.73_m2} >=60 [facility] Glucose [Mass/Vol] 103 mg/dL 74-106 [facility] Potassium [Moles/Vol] 3.6 mmol/L 3.5-5.1 [facility] Protein [Mass/Vol] 7.2 g/dL 6.4-8.2 [facility] Sodium [Moles/Vol] 143 mmol/L 136-145 [facility] Triglyceride [Mass/Vol] 72 mg/dL <=150 [facility] Urea nitrogen [Mass/Vol] 15.0 mg/dL 7.0-18.0 [facility] Urea nitrogen/Creatinine [Mass ratio] 18.8 mg/mg [facility] Laboratory - Hematology and Cell countson 03-27-2024 HbA1c (Bld) [Mass fraction] 5.3 % 4.5-6.2 [facility] Comment on above: ADA RECOMMENDED LIMI T 4.0 - 6.0ADA THERAPEUTIC TARGET < 7.0ACTION SUGGESTED> 7.0 Immature granulocytes/100 WBC (Bld) 0.0 % 0.0-0.5 [facility] Leukocytes [#/volume] correc abraham for nucleated erythrocytes in Blood by Automated counon 03-27-2024 WBC corrected for nucl RBC Auto (Bld) [#/Vol] 3.3 10 3/uL Low 4.0-11.0 [facility] Lymphocytes Auto (Bld) [#/Vo l]on 03-27-2024 Lymphocytes (Bld) [#/Vol] 1.1 10 3/uL Low 1.2-3.8 [facility] Lymphocytes/100 WBC Auto (Bl d)on 03-27-2024 Lymphocytes/100 WBC (Bld) 32.4 % 20.5-60.0 [facility] MCH Auto (RBC) [Entitic mass ]on 03-27-2024 MCH (RBC) [Entitic mass] 31.3 pg 26.7-34.0 [facility] MCHC Auto (RBC) [Mass/Vol]on 03-27-2024 MCHC (RBC) [Mass/Vol] 33.2 g/dL 29.9-35.2 [facility] MCV Auto (RBC) [Entitic vol] on 03-27-2024 MCV (RBC) [Entitic vol] 94.1 fL 81.0-99.0 [facility] Monocytes Auto (Bld) [#/Vol] on 03-27-2024 Monocytes (Bld) [#/Vol] 0.4 10 3/uL 0.3-0.8 [facility] Monocytes/100 WBC Auto (Bld) on 03-27-2024 Monocytes/100 WBC (Bld) 10.6 % 1.7-12.0 [facility] Neutrophils Auto (Bld) [#/Vo l]on 03-27-2024 Neutrophils (Bld) [#/Vol] 1.8 10 3/uL 1.4-6.5 [facility] Neutrophils/100 WBC Auto (Bl d)on 03-27-2024 Neutrophils/100 WBC (Bld) 54.6 % 43.0-75.0 [facility] No Panel Informationon 03-27 Eosinophils # (Auto) 0.0 10 3/uL 0.0-0.7 [facility] Immature Granulocyte # (Auto) 0.00 10 3/uL 0.00-0.03 [facility] Platelet mean volume Auto (B ld) [Entitic vol]on 03-27-2024 Platelet mean volume (Bld) [Entitic vol] 8.8 fL Low 9.5-13.5 [facility] Platelets Auto (Bld) [#/Vol] on 03-27-2024 Platelets (Bld) [#/Vol] 393 10 3/uL 150-450 [facility] RBC Auto (Bld) [#/Vol]on RBC (Bld) [#/Vol] 3.55 10 6/uL Low 4.20-5.40 [facility] Serum or plasma albumin/glob ulin mass ratioon 03-27-2024 Albumin/Globulin [Mass ratio] 0.7 {ratio} [facility] Serum or plasma anion gap de terminationon 03-27-2024 Anion gap [Moles/Vol] 12.3 mmol/L Fi [facility] Serum or plasma total choles terol/high density lipoprotein (HDL) cholesterol mass hussain 03-27-2024 Cholesterol.total/Natalee sterol in HDL [Mass ratio] 3.9 {ratio} [facility] Comment on above: 3.3 - 4.4 LOW RISK4. 4 - 7.1 AVERAGE RISK7.1 - 11.0 MODERATE RISK>11.0 HIGH RISK Fibrin D-dimer [Presence] in Platelet poor plasma by Latex agglutinationon 03-26-2024 Fibrin D-dimer LA Ql (PPP) 1.05 mg/L FEU High <=0.59 [facility] Comment on above: RESULTS CALLED TO [...] generalizedhospitalization. DIHYDROTESTOSTERONEon 2022 Dihydrotestosterone 17 ng/dL Normal [facility] Comment on above: Result Comment: This test was developed and its performance characteristics determined by [facility]. It has not been cleared or approved by the Food and Drug Administration. Reference Range: Adult Female: 4 - 22 Performed By: #### D HT #### [facility] [address] [place] [address] Dr. Manny Eller TESTOSTERONE, FREE,DIRECT, T OTALon 12-09-2022 Free Testosterone(Direct) 1.7 pg/mL Normal 0.0-4.2 [facility] Comment on above: Result Comment: Perf ormed at: BN Performed By: #### T ESTFRD #### [facility] [address] [place] [address] Dr. Manny Eller Testosterone [Mass/Vol] 32 ng/dL Normal 4-50 [facility] Comment on above: Result Comment: Perf ormed at: CB Performed By: #### T ESTFRD #### [facility] [address] [place] [address] Dr. Manny Eller DHEA-SULFATEon 12-06-2022 DHEA-Sulfate 163.0 ug/dL Normal 41.2-243.7 [facility] Comment on above: Performed By: #### D HEASUL #### [facility] [address] [place] [address] Dr. Manny Eller MG MAMM SCREEN 3D ELOY CADon 11-30-2022 MG MAMM SCREEN 3D ELOY CAD Patient: JENNIFER ZAMORA Exam Date: 11/30/2022 : 1970 Gender:F Ordering : DR ARMANDO MARTINEZ . Admission #: [id number] Family : Order #: [id number] CLICK HERE TO VIEW EXAM RADIOLOGY REPORT [...] Treatments None Family Cancers None LOCATION: [facility] BREAST COMPOSITION: Scattered areas fibroglandular density. [...] Gabriel MD on 11/30/2022 at 13:57 Normal [facility] COVID/FLU RT-PCRon 3 SARS-CoV-2 (COVID-19) RNA BOB+probe Ql (Unsp spec) Positive [employer] Other COVID/FLU RT-PCR Negative [employer] Other CORTISOLon 10-26-2022 Cortisol 7.8 ug/dL Normal [facility] Comment on above: Result Comment: Mervin isol AM 6.2 - 19.4 Cortisol PM 2.3 - 11.9 Performed By: #### D HT #### [facility] [address] [place] [address] [address] Manny Eller TESTOSTERONE, FREE,DIRECT, T OTALon 10-13-2022 Free Testosterone(Direct) <0.2 Normal 0.0-4.2 [facility] Comment on above: Result Comment: Perf ormed at: BN Performed By: #### T ESTFRD #### [facility] [address] [place], [place] [address] Dr. Manny Eller Testosterone [Mass/Vol] ng/dL Critically low 4-50 [facility] Comment on above: Result Comment: Perf ormed at: CB Performed By: #### T ESTFRD #### [facility] [address] [place] [address] Dr. Manny Eller CORTISOLon 10-12-2022 Cortisol 0.5 ug/dL Normal [facility] Comment on above: Result Comment: Mervin isol AM 6.2 - 19.4 Cortisol PM 2.3 - 11.9 Performed By: #### C ORTISO #### [facility] [address] [place] [address] Dr. Manny Eller DHEA-SULFATEon 10-12-2022 DHEA-Sulfate 16.2 ug/dL Critically low 41.2-243.7 [facility] Comment on above: Performed By: #### D HEASUL #### [facility] [address] [place] [address] Dr. Manny Eller ESTRADIOLon 10-12-2022 Estradiol 30.9 pg/mL Normal [facility] Comment on above: Result Comment: Adul t Female: Follicular phase 12.5 - 166.0 Ovulation phase 85.8 - 498.0 Luteal phase 43.8 - 211.0 Postmenopausal <6.0 - 54.7 1st trimester 215.0 - >4300.0 [place] ECLIA methodology Performed By: #### C MP, LIPID #### [facility] [address] [place] [address] Dr. Manny Eller ESTRONEon 10-12-2022 Estrone, Serum <6 Normal [facility] Comment on above: Result Comment: Rang e Adult (Premenopausal) 27 - 231 Menstrual Cycle (1-10 days) 19 - 149 Menstrual Cycle (11-20 days) 32 - 176 Menstrual Cycle (21-30 days) 37 - 200 Adult (Postmenopausal) 0 - 125 Performed By: #### E STRONE #### [facility] [address] [place] [address] Dr. Manny Eller PROGESTERONEon 10-12-2022 Progesterone <0.1 Normal [facility] Comment on above: Result Comment: Foll icular phase 0.1 - 0.9 Luteal phase 1.8 - 23.9 Ovulation phase 0.1 - 12.0 First trimester 11.0 - 44.3 Second trimester 25.4 - 83.3 Third trimester 58.7 - 214.0 Postmenopausal 0.0 - 0.1 Performed By: #### C MP, LIPID #### [facility] [address] [place] [address] Dr. Manny Eller SEX HORMONE-BINDING GLOBULIN on 10-12-2022 Sex Horm Binding Glob, Serum 55.9 nmol/L Normal 17.3-125.0 [facility] Comment on above: Performed By: #### S EXHBG #### [facility] [address] [place] [address] Dr. Manny Eller GLYCOHEMOGLOBIN A1Con 2021 ADA RECOMMENDATION SEE BELOW Normal [facility] Comment on above: Result Comment: ADA RECOMMENDED LIMIT 4.0 - 6.0 ADA THERAPEUTIC TARGET < 7.0 ACTION SUGGESTED > 7.0 Performed By: #### D HT #### [facility] [address] [place] [address] Dr. Manny Eller Glucose [Mass/Vol] 108 mg/dL Normal [facility] Comment on above: Performed By: #### D HT #### [facility] [address] [place] [address] Dr. Manny Eller HbA1c (Bld) [Mass fraction] 5.4 % Normal 4.5-6.2 [facility] Comment on above: Performed By: #### D HT #### [facility] [address] [place] [address] Dr. Manny Eller POTASSIUMon 10-11-2022 Potassium [Moles/Vol] 3.6 mmol/L Normal 3.5-5.1 [facility] Comment on above: Performed By: #### C MP, LIPID #### [facility] [address] [place] [address] Dr. Manny Eller VITAMIN D 25 OHon 10-11-2022 VIT D 25-OH 37.3 ng/mL Normal [facility] Comment on above: Performed By: #### D HT #### [facility] [address] [place] [address] Dr. Manny Eller VIT D RANGES SEE BELOW Normal [facility] Comment on above: Result Comment: <20 ng/mL Vit D deficient 20 - <30 ng/mL Vit D insufficient 30 - 100 ng/mL Vit D sufficient >100 ng/mL Potential Toxicity Performed By: #### D HT #### [facility] [address] [place] [address] Dr. Manny Eller CBC AUTO DIFFon 09-25-2022 BASO # 0.1 103/ul Normal 0.0-0.1 [facility] Comment on above: Performed By: #### C MP, LIPID #### [facility] [address] [place] [address] Dr. Manny Eller Basophils/100 WBC (Bld) 1.1 % Normal 0.2-2.0 [facility] Comment on above: Performed By: #### C MP, LIPID #### [facility] [address] [place] [address] Dr. Manny Eller EO # 0.1 103/ul Normal 0.0-0.7 [facility] Comment on above: Performed By: #### C MP, LIPID #### [facility] [address] [place] [address] Dr. Manny Eller Eosinophils/100 WBC (Bld) 1.1 % Normal 0.9-7.0 [facility] Comment on above: Performed By: #### C MP, LIPID #### [facility] [address] [place] [address] Dr. Manny Eller Erythrocyte distribution width (RBC) [Ratio] 12.2 % Normal 11.0-15.0 [facility] Comment on above: Performed By: #### C MP, LIPID #### [facility] [address] [place] [address] Dr. Manny Eller Hematocrit (Bld) [Volume fraction] 42.9 % Normal 36.0-48.0 [facility] Comment on above: Performed By: #### C MP, LIPID #### [facility] [address] [place] [address] Dr. Manny Eller Hemoglobin (Bld) [Mass/Vol] 15.0 g/dL Normal 12.0-16.0 [facility] Comment on above: Performed By: #### C MP, LIPID #### [facility] [address] [place] [address] Dr. Manny Eller IG # 0.01 10e3/ul Normal 0.00-0.03 [facility] Comment on above: Performed By: #### C MP, LIPID #### [facility] [address] [place] [address] Dr. Manny Eller IG % 0.2 % Normal 0.0-0.5 [facility] Comment on above: Performed By: #### C MP, LIPID #### [facility] [address] [place] [address] Dr. Manny Eller LYMPH # 1.3 103/ul Normal 1.2-3.8 [facility] Comment on above: Performed By: #### C MP, LIPID #### [facility] [address] [place] [address] Dr. Manny Eller Lymphocytes/100 WBC (Bld) 28.4 % Normal 20.5-60.0 [facility] Comment on above: Performed By: #### C MP, LIPID #### [facility] [address] [place] [address] Dr. Manny Eller MANUAL DIFF REQ NO Normal [facility] Comment on above: Performed By: #### C MP, LIPID #### [facility] [address] [place] [address] Dr. Manny Eller MCH (RBC) [Entitic mass] 32.3 pg Normal 26.7-34.0 [facility] Comment on above: Performed By: #### C MP, LIPID #### [facility] [address] [place] [address] Dr. Manny Eller MCHC (RBC) [Mass/Vol] 35.0 g/dL Normal 29.9-35.2 [facility] Comment on above: Performed By: #### C MP, LIPID #### [facility] [address] [place] [address] Dr. Manny Eller MCV (RBC) [Entitic vol] 92.5 fL Normal 81.0-99.0 [facility] Comment on above: Performed By: #### C MP, LIPID #### [facility] [address] [place] [address] Dr. Manny Eller MONO # 0.3 103/ul Normal 0.3-0.8 [facility] Comment on above: Performed By: #### C MP, LIPID #### [facility] [address] [place] [address] Dr. Manny Eller Monocytes/100 WBC (Bld) 7.0 % Normal 1.7-12.0 [facility] Comment on above: Performed By: #### C MP, LIPID #### [facility] [address] [place] [address] Dr. Manny Eller NEUT # 2.8 103/ul Normal 1.4-6.5 [facility] Comment on above: Performed By: #### C MP, LIPID #### [facility] [address] [place] [address] Dr. Manny Eller Neutrophils/100 WBC (Bld) 62.2 % Normal 43.0-75.0 [facility] Comment on above: Performed By: #### C MP, LIPID #### [facility] [address] [place] [address] Dr. Manny Eller Platelet mean volume (Bld) [Entitic vol] 9.6 fL Normal 9.5-13.5 [facility] Comment on above: Performed By: #### C MP, LIPID #### [facility] [address] [place] [address] Dr. Manny Eller PLT 322 103/ul Normal 150-450 [facility] Comment on above: Performed By: #### C MP, LIPID #### [facility] [address] [place] [address] Dr. Manny Eller RBC 4.64 106/ul Normal 4.20-5.40 [facility] Comment on above: Performed By: #### C MP, LIPID #### [facility] [address] [place] [address] Dr. Manny Eller WBC 4.6 103/ul Normal 4.0-11.0 [facility] Comment on above: Performed By: #### C MP, LIPID #### [facility] [address] [place] [address] [address] Manny Eller LIPID PROFILEon 09-25-2022 CHOL-HDL RATIO NORM SEE BELOW Normal [facility] Comment on above: Result Comment: 3.3 - 4.4 LOW RISK 4.4 - 7.1 AVERAGE RISK 7.1 - 11.0 MODERATE RISK >11.0 HIGH RISK Performed By: #### C MP, LIPID #### [facility] [address] [place], [place] [address] Dr. Manny Eller Cholesterol [Mass/Vol] 171 mg/dL Normal <=200 [facility] Comment on above: Performed By: #### C MP, LIPID #### [facility] [address] [place] [address] [address] Manny Eller Cholesterol in HDL [Mass/Vol] 49 mg/dL Normal 40-60 [facility] Comment on above: Performed By: #### C MP, LIPID #### [facility] [address] [place] [address] [address] Manny Eller Cholesterol in LDL [Mass/Vol] 103.4 mg/dL Normal [facility] Comment on above: Performed By: #### C MP, LIPID #### [facility] [address] [place], [place] [address] Dr. Manny Eller Cholesterol.total/Natalee sterol in HDL [Mass ratio] 3.5 {ratio} Normal [facility] Comment on above: Performed By: #### C MP, LIPID #### [facility] [address] [place], [place] [address] Dr. Manny Eller HDL NORMAL > or = 60 mg/dl - LO W CARDIOVASCULAR RISK <40 mg/dl - HIGH CARDIOVASCULAR RISK Normal [facility] Comment on above: Performed By: #### C MP, LIPID #### [facility] [address] [place], [place] [address] Dr. Manny Eller LDL CALC NORMAL SEE BELOW Normal [facility] Comment on above: Result Comment: <100 mg/dl OPTIMAL 100 - 129 mg/dl NEAR OR ABOVE OPTIMAL 130 - 159 mg/dl BORDERLINE HIGH 160 - 189 mg/dl HIGH >190 mg/dl VERY HIGH Performed By: #### C MP, LIPID #### [facility] [address] [place] [address] Dr. Manny Eller Triglyceride [Mass/Vol] 93 mg/dL Normal <=150 [facility] Comment on above: Performed By: #### C MP, LIPID #### [facility] [address] [place] [address] Dr. Manny Eller VLDL CALC 18.6 mg/dL Normal [facility] Comment on above: Performed By: #### C MP, LIPID #### [facility] [address] [place] [address] Dr. Manny Eller PROF 14(COMP METB)on 022 Albumin [Mass/Vol] 3.8 g/dL Normal 3.4-5.0 [facility] Comment on above: Performed By: #### C MP, LIPID #### [facility] [address] [place] [address] Dr. Manny Eller Albumin/Globulin [Mass ratio] 1.1 {ratio} Normal [facility] Comment on above: Performed By: #### C MP, LIPID #### [facility] [address] [place] [address] Dr. Manny Eller ALP [Catalytic activity/Vol] 73 U/L Normal 46-116 [facility] Comment on above: Performed By: #### C MP, LIPID #### [facility] [address] [place] [address] Dr. Manny Eller ALT [Catalytic activity/Vol] 39 U/L Normal 14-59 [facility] Comment on above: Performed By: #### C MP, LIPID #### [facility] [address] [place] [address] Dr. Manny Eller Anion gap [Moles/Vol] 11.6 mmol/L Normal [facility] Comment on above: Performed By: #### C MP, LIPID #### [facility] [address] [place] [address] Dr. Manny Eller AST [Catalytic activity/Vol] 23 U/L Normal 15-37 [facility] Comment on above: Performed By: #### C MP, LIPID #### [facility] [address] [place] [address] Dr. Manny Eller Bilirubin [Mass/Vol] 0.7 mg/dL Normal 0.2-1.0 [facility] Comment on above: Performed By: #### C MP, LIPID #### [facility] [facility] [address] [place] [address] Dr. Manny Eller Calcium [Mass/Vol] 9.3 mg/dL Normal 8.5-10.1 [facility] Comment on above: Performed By: #### C MP, LIPID #### [facility] [address] [place] [address] Dr. Manny Eller Chloride [Moles/Vol] 101 mmol/L Normal 98-107 [facility] Comment on above: Performed By: #### C MP, LIPID #### [facility] [address] [place] [address] Dr. Manny Eller CO2 [Moles/Vol] 31.2 mmol/L Normal 21.0-32.0 [facility] Comment on above: Performed By: #### C MP, LIPID #### [facility] [address] [place] [address] Dr. Manny Eller Creatinine [Mass/Vol] 0.87 mg/dL Normal 0.55-1.02 [facility] Comment on above: Performed By: #### C MP, LIPID #### [facility] [address] [place] [address] Dr. Manny Eller EGFR-AF MOLDOVAN >60 Normal >=60 [facility] Comment on above: Performed By: #### C MP, LIPID #### [facility] [address] [place] [address] Dr. Manny Eller EGFR-NON AF MOLDOVAN >60 Normal >=60 [facility] Comment on above: Performed By: #### C MP, LIPID #### [facility] [address] [place] [address] Dr. Manny Eller Globulin (S) [Mass/Vol] 3.6 g/dL Normal T [facility] Comment on above: Performed By: #### C MP, LIPID #### [facility] [address] [address] [address] Manny Eller Glucose [Mass/Vol] 124 mg/dL Critically high 74-106 [facility] Comment on above: Performed By: #### C MP, LIPID #### [facility] [address] [address] [address] Manny Eller Potassium [Moles/Vol] 2.8 mmol/L Critically low 3.5-5.1 [facility] Comment on above: Performed By: #### C MP, LIPID #### [facility] [address] [place] [address] Dr. Manny Eller Protein [Mass/Vol] 7.4 g/dL Normal 6.4-8.2 [facility] Comment on above: Performed By: #### C MP, LIPID #### [facility] [address] [place] [address] Dr. Manny Eller Sodium [Moles/Vol] 141 mmol/L Normal 136-145 [facility] Comment on above: Performed By: #### C MP, LIPID #### [facility] [address] [place] [address] Dr. Manny Eller Urea nitrogen [Mass/Vol] 15.0 mg/dL Normal 7.0-18.0 [facility] Comment on above: Performed By: #### C MP, LIPID #### [facility] [address] [place] [address] Dr. Manny Eller Urea nitrogen/Creatinine [Mass ratio] 17.2 mg/mg Normal [facility] Comment on above: Performed By: #### C MP, LIPID #### [facility] [address] [place] [address] Dr. Manny Eller Office Visit (Cardiology)on 07-18-2022 [...] time of your visit. Chief Complaint JENNIFER ZAMORA is being seen for a 9 [...] Recorded: 18Jul2022 01:41PM Heart Rate68, L Radial Vrcougxo520, LUE, Sitting Sxpkssspf87, LUE, Sitting Height5 ft 7 in Lqiviy240 lb 4 oz BMI Zforjimtqq73.54 kg/m2 BSA Ca (more content not included)... Normal [employer] Tobacco Screening.on 022 Adult depression screening assessment No [facility] 250 DO Work Phone: Tobacco use status CPHS b) No [facility] 250 DO Work Phone: CT HEAD WO [...] by: ADAIR SCHMITT Date: 2022-07-15 11:31 Normal [facility] CTA NECK WO W CONon 07-15-20 [...] by: CARLOS RUBI Date: 2022-07-15 14:56 Normal [facility] Patient Educationon 06-07-20 Patient Education Infectious [...] Supplies needed: ? Soap. ? Alcohol-based hand train station server. ? Standard cleaning products. ? Disinfectants, such [...] water are not available, use alcohol-based hand train station server. ? Avoid touching your face, mouth, nose, [...] water. Air-dry your dishes or use a wind turbine electrical engineer. ? Do not share dishes or eating [...] certain germs and not others. Read the baker head's instructions or read online resources to determine [...] toil (more content not included)... Normal [facility] Urology Office/Clinic Noteon 06-07-2022 Urology Office/Clinic [...] prefers PRN. Follow-up With When Contact Information CHARLEE OSCAR, MABLE Toney, URL Only if needed [address] [place] [address] Additional Instructions: PRN Patient Education Infection Prevention in the Home IAure, personally scribed for Mable Deshpande PA-C on 06/07/2022 15:02:30. . Documentation recorded by the scribe Aure Eagle accurately reflects the services(s) I performed [...] cholesterol: Father. Hypertension: Mother. Stroke: Mother. Normal [facility] Comment on above: Result Comment: Elec tronically Signed By: MABLE DESHPANDE PA-C\.br\Date and Time Signed: 06/07/22 16:03 EDT\.br\Electronically Co-Signed By: Aure Eagle\.br\Date and Time Co-Signed: 06/07/22 15:02 EDT Coding Summary.on 03-06-2022 Coding Summary. CD:[id number] G h0bWw+PGhlYWQ+ZG1AKBM bW81lnDDtnK3OQ9yHNH2O XUIWIJJGVM6VON2ahZQ9G JtjS3PknyDm RsdppPQlSF81UNa5ZPB0k BdkKOdlgS8boAJcS3d1Jy FqZI07cI32JMbcJUQjZtH 3LjZpbjsgbWFy L8sdUpCoyWSmEmt+PHRhY mxlIHdpZHRoPScxMDAlJy WvxUllQT6qIz8lXURbWKL vbGxhcHNlOiBj t1qnZJBaSUouSQ2gvWhkP 6NivXG1OVAcg4f4Et51sP I+GUCgINE7oYiyKKsra17 5YbGcs9hkCQC4 yBQgDQgzITG0V88my2H9G QYdKLPbSTC7uJF7eP4jsK frbsmkA1TtbVEdDeS6IRE 5bMUknA3pyMyv nfxpmF3mUah+V92VRV7VA IWQJI0RRii7D4LhDtksmN I+DV98XAWgBJ48dWDkyEU kl2csrDw1VcFy VNOpQQD2uJpoKAkut9YzR VCpZ66uxQCel3Z2TZOerA uumCCeKwYadDH5wJ6jAAt nimeqv2cacfkz Orrbu6dchy89pK37K94wY AvcHRPfOTR0KWSbGTKxkQ nvpe9twE6pDi4+UStfa0h el3rskMs9KgEu PCWgmrTffXxiGRE3w9PdZ h09O8DhdHscv9NuOdh7an 48tFQgs0Z1wPV1TSmfRRN osA5sJWoaSvN2 LHIlEcPouT16mHOjCKcmU w1ucQcveGugZC1qYSYzdm znGAEsaI8jLNIyzCFlnYm yWM8xCCYaxmvs t312ZlWkZAB3GBOizYEgF 3WkxS3hHgFhBBUmOLYaH0 RxsYIhUDekW336BPkrAmC 5CQRnxhGzT7Gn UGKgtEfkMrT4y1Z9Jz8Xy 0YpkumyHNK5ZNthFNE7Ha AxNxFuNcX0D2CaRkw4ZUO dpWjfDD7nR5Wk UIGuxkwwvmpgnYM6OPWvB ADixP53bOZjWKzsQs8ke4 A0g574UYSbFQDqyC44Fx7 udDogMTBwdCBU vC6olfqbe8qibhnoOrYrI HKuJSb1PJv6CFWhxFlqFd PpRNW3VpP5VHN3jGTwyV5 dyHlehcbkxF4d Oyc+G77ieH7qCCF3AAY6n wfiJGRtufSuOF28KJ79U6 RyPjwvdGFibGU+PGRpdiB zbJyxBZ9gYlSd d1qnv6ZqYJyrF4QwAJMgP JvlHcn0UMEpUZQ7aLF7lU 7eQQBrEUpdm4P9eUK2Y1J jwuYtuo3mm2ob TDHzIGmpF84mtFQni6Z2A CDucBI2KYOriKiaNxAiqN 93Oyc+ULVcxAmmv2VpRst me9hid0vjpMt2 VzFzQYJdttRxmZkzNGP5e 3RuIg01D42mECmjVFFlJD MxUJYpKNFgoBsrsg2ouQ3 wIi8+PGNvbCB3 nBK7pA4eAUViSvU3WDzcT 964DdDfsLBaNubnf2dmu5 twiMy0WxGjGDFjouYzhQk vAXI4f9GiPi31 J83hBDghTACnOXUsMPHiI WYfbCfowo1inA4vRm6+PC 4ll6ldai19pU91hBZ+PHR gZIF6nSvlHGiy XNDnmU5rNBqaDlL9KYTsJ sNrwY85cXTrYHahDi2phR flsVbgVD3wCWWfqssuu87 5UcPyb0xoJZZe lBQfIYurBGN9G59ey5J9F GZnFAEaFRA8vJD2vO0imK lnbjogbGVmdDsgdmVydGl qUEulKAvqH590 IHRvcDsnPlBhdGllbnQgT xBdPMp0U1XfYci1AAEcwF knDX4ihKRsVBozJg9dcRc hqQdbFP1bLBQw cyfya462VyTuu5piHGTeu HNrWNohGIL4I11yt4V4HV VvAIInRWZ2pRK9dL8xrAf nbjogbGVmdDsg djOqzOmmERjvUNrgH590J HRvcDsnPkJpcnRoIERhdG U4PM86CR53kXImy9X0fHM 0H5DwCVGnhjyx jqubuXZ0YJZkMNTtxG37Y d0ayClaJe9kCJEoPQN9ST QumHSvE8KwoU8aBcMuJBM tYBXrB0CqkRGq TEvwF524HInnLbH9MBYrl qNwJ5NqKAFbwWlbOzZ1h4 K5Oa4UF2S3DL15XD43lKD hd5R9dZJ7E0Vo WWDyywvbrxfwoHD6KKYlP ZGklK93Wk2xyPehTx3jZJ UtDLH4GWQixTYjZ6PrgI7 yOiAjMDAwMDAw D1XktIFcJAlmD258BLuiQ oP1KWIqcvCqP0GoDPMdtM xoKoX7i2M5Wd1JWDq2NT3 7WM49aKHwu4S1 oNB8P9ZfUXGralesswuyz NX5JNDgZDHnrW24Ne8jmW coSn1pFPXhMHU0KGSldGJ oI7TyuF0zKcSw EWKsSZMfX5EdeIUhVIsiG 808AKzySeA9SISgqbAbU2 GtNSJlbTrkKuY3z5V2Dn4 TOKIvKO29CMU7 eMO7GY07BK86Y9LeQhkqq GFibGU+PHRhYmxlIHdpZH RoPScxMDAlJyBzdHlsZT0 hMg7iOGVsAVOo xUwjpEFtDlEsw7wdORPgX UuuDE0gmJjkL3QyrZN5XQ Vyd8s6Kw92F90jD3EblKB +SSFfkWT0pOH2 tS6xHgIeFdS7FSbuJ330W bBlgIVdFthoh3ydb9jxjW a8YaY5XALqlpYcaOcuEMU 1o7WiLb98U75p IHdpZHRoPSIxNSUiIHZhb Jnghv4ycP4mNw8+PGNvbC N4yIK3qB9mLsGwJhP6HBv cF333BiSccISa Mclsi1nly4cgvVb6EuRnT NLumxLtmSydBOF8o8HcCc 14U7FvpHbix6RwGlu5er1 7dUEod7P8hRF6 G6QmJEVgedhgeQVoyQmdP L2jDKYbaxfjLJMdzR0cTP FtE7f0YsYlCvA7ASxjE9J mzwR6TACcgPGk ANwlZCD6U49nm1Z8UVFaW JIsCZA5zSQ8bG5oxAlbgi ogbGVmdDsgdmVydGljYWw dIPhsI495UZBh pKfnVFRmdM0tJSWqxMTft SaxXI2nUWTpxngvVx2HWC IDGYMHVSNIXSEKSZ71ST3 5nIJgf4H2eQV5 U4YnQYTsutkdfdxhbGU5S LScPXXbiA69gQXjCVtcQh 1fw5I0e600EGZbDZSeeA6 1Ce3drDirJJCh tQHFyY8srxuui4inmetdV zVvUUSmWBb5MKt2BXNehB vdFnJaISG3WgJ2JWS0tYC lzY6xvLblrvnm mE1nXfv+SQfnDQHjDFd8R TwvdGQ+KPPcQXG9jKneWD rnLOCnxV3aQMMpX0f4VdZ iRgL3ZEfaP1Mv TRGsrsagFx49lP6nTsNdG mF0GTawQ4EpmbD0ELEguN YbGJbpFPU7H58fp5Y4JKG yJSByOZG7uEI7 dV3vuJcrwufxiWDbnWzbl vKlpTdrXKsnGRxfJ433VZ RvcDsnPjUyIFllYXJzPC9 1RZ46xUEke7A2 uUV3A8NeMYVlpmiffuzpx SR4WRQwFLUoeV03fGXfXR suVx1xd5F1f197TQSiBDW leL94Xd4pwPzn ALRfiXXChD8ucfhxg1uel uzcCgLvXAKbDXm4JBs7BE IqsCsiKwPhGGK1PfV6OXI 2sXJsmH6zlEeu fjzglC7mOsa+RmVtYWxlP S27YH60jDPls0V6lEZ9Y2 SpFFWiqzjqunaxkOS4VAT eOOFrjZ41dGPy ZBtpAc3ap1I0s034JXDpH UYhvR48Zl6inHjhIHSqaL WSpU9ogblnu0btzjjrAcT cBJJkYXt3KLa4 QHArtVfcOnDlJVK1DrI8E FZ5jCPwzL2obHlvdnzdwU 9wOyc+O9D4uTM6wWAxiJv vdGQ+OO39gq62 A3HpHakuCty7PYPlPOM4s TN2tY7nBSBrKUiot2Y2nG J4N9EayrGojh8ce6thBOF nNRmwE91riYMk t4J1TWTrnDD8TEQkrRodR lBmcP32Qrl+PGNvbGdyb3 XuLmwew0pqv2tanUb0HmN wJSIgdmFsaWdu MBA5r4MyKa94W85uNYdkW HRoPSIzMCUiIHZhbGlnbj 1byO2lJz0+CXTcyRG4pIZ 3qJ5wSrEdCuA1 GWjuM777VnTaoNJhPjvqs 1iwu2ndiWt8LvEgKRNdyi KdqYpsDKA9o8QrOu03L0H spUpqx7QrIgv5 qm55jFVwa3S7jTV9G0BrW JXbmnuylOEoxQplYK8hNL FiwxmkFGOxtK1gEIQmR8p 4AgPxEzI8QHmg U6JdbxQ8OVUqjTQzDAVao BWFtV4hgnmrp7aupzjxPr ZyFINbSNx5WUy8KWAwzRn gBoXnCBU9AcX5 CIV0nOPvbB3vaCbjtsbwa G9wOyc+VTb9k3oihVLiTG 3toVP7QA85DV46vQMpi9V 3xSY0S7QaPLOz gznvxlzeuLV1JUPsJRTst Q98Wo3dnWxvIn1rOKKePU E1IEXzpWOcB7YhnE7fGkQ rLCXsGKGfX5Oi gSLbNPplU989MVzjEfZ2D FNwilFgA9DdDZPbsBciEa R5h1N2Uw9JHT61WN88WC3 7iZXvc5I0hIE2 Z9OuJGVtpndrfjprqLM3Z VHvZXXbhV43Lk7trKzjIm 3gAGOoXAE0KJRylUBwC2Q hzK1wUxRiEPNf UFDmM8EjoIPoAVwlV216B BkoQaW6XEHbbzKmY5AaMU AbsOjbDjB3u2Y4Kj1GTe6 2SK22XC47iSNg v2U2uDU8U2VdIGSzpxcsf zixkCO6OAMdXPAqfP63Ut 4puTvgPb0mVVUzCSD1RBW voKSrR0BdoS9s CnIwGHItEHIpH6ZxiAWoP UnqD936DXzwToO7VEJsoi CsK8ViJDCkhPlrVjD0s4M 5Ro6JDVmtcqj4 I3PwPsxcrND+LD05ATDvA X37bFLixLLdl2scgAt3Lz JgUSGdVJH7hEqnOJlbt8W dSCBtG44syLPu c2U6 (more content not included)... Normal [facility] Consent for Procedure/Surger yon 03-02-2022 Consent for Procedure/Surgery [id number]# 1.00CD:[address] [facility] Consent for Treatmenton 02-12 Consent for Treatment [id number]#1 .00CD:[address] [facility] Inpatient Patient Summaryon 03-02-2022 Inpatient Patient Summary [address] [address] Clinical Summary Person Information Name: JENNIFER ZAMORA Age: 51 Years : 1970 Sex: Female PCP: GRADY ARRIAGA DO Marital Status: Race: White Ethnicity: Non- or Language: Uzbek Visit Id: Visit Reason: RECURRENT UTI INCOMPLETE EMPTYING Speciality: Acuity: Enc Type: Outpatient Med Service: Surgery Arrival: 03/02/2022 10:27:40 Discharge: Dispo Type: Address: [address] [place] [phone] Provider Notes: Diagnosis: Problems Active Recurrent UTI [...] Follow up: With: Address: When: MABLE DESHPANDE [address] [place] [phone] Business (1) Within 6 weeks Comments: Call for followup appointment. Please finish your antibiotics. Monitor the urinary pattern after the dilation today. Patient Education Information: EU - Cystoscopy with Urethral Dilation Discharge Instructions (Custom) [facility] IntraOperative Documentson 0 03-02-2022 IntraOperative Documents [id number]# 1.00CD:127 [facility] Main OR Intraoperative Recor don 03-02-2022 Main OR Intraoperative Record IntraOp Document Type FTURO Summary Primary Physician: Yinka OJEDA MD Finalized Date/Time: 03/02/22 11:16:49 Pt. Name: STEVE ZAMORASTELLA Iverson D.O.B./Sex: 1970 Female Med Rec #: [id number] Physician: Yinka OJEDA MD Financial #: [id number] Pt. Type: O Room/Bed: / Admit/Disch: 03/02/22 10:27:40 - Institution: Case Times FTURO Entry 1 Patient Times In Room 03/02/22 11:08:00 Out Room 03/02/22 11:21:00 Procedure Times Start 03/02/22 11:09:00 Stop 03/02/22 11:16:00 Anesthesia Times Last Modified By: Tal FLORENTINO, DOMINIC, Lashell 03/02/22 11:16:28 Case Attendance FTURO Entry 1 Entry 2 Entry 3 Case Attendee Yinka OJEDA MD RN, NIKKIOR, Moy DRISCOLL, Porsha Lobo Role Performed Surgeon - Primary Button Reclaimer - Primary Scrub - Primary Time In 03/02/22 11:08:00 03/02/22 11:08:00 03/02/22 11:08:00 Time Out 03/02/22 11:21:00 03/02/22 11:21:00 03/02/22 11:21:00 Procedure CYSTOSCOPY LOCAL(.) CYSTOSCOPY LOCAL(.) CYSTOSCOPY LOCAL(.) Comments Last Modified By: Tal RN, CNOR, Tal RN, NIKKIOR, Tal FLORENTINO, NIKKIORLashell 03/02/22 Lashell 03/02/22 Lashell 03/02/22 11:16:29 11:16:45 [...] DOMINIC Parada RN, Ruthann 03/02/22 11:[address] [facility] Main OR Preoperative Recordo n 03-02-2022 Main OR Preoperative Record Holding Area Document Type FTURO Summary Primary Physician: Yinka OJEDA MD Finalized Date/Time: 03/02/22 11:11:38 Pt. Name: JENNIFER ZAMORA/Sex: 1970 Female Med Rec #: [id number] Physician: Yinka OJEDA MD Financial #: [id number] Pt. Type: O Room/Bed: / Admit/Disch: 03/02/22 [...] Parada RN, Ruthann Document Signatures Signed By: Shiv FONSECAIssac 03/02/22 10:55 DOMINIC Parada RN, Ruthann 03/02/22 11:[address] [facility] Operative Reporton 2 Operative Report Patient: DAI ZAMORA Age: 51 years Sex: Female : [...] urine. The Urethra was dilated to: 30 Qatari w/ sounds. Devices Implanted: None. Removal: Cystoscope is removed, The patient tolerated it well. Postoperative Information Discharge: Patient is discharged home with antibiotic coverage, Follow up arranged, F/U MARIANO Monge, in about six weeks. Monitor urinary flow pattern. Hopefully UTI frequency will decrease. Normal [facility] Comment on above: Result Comment: Elec tronically Signed By: Yinka OJEDA MD\.br\Date and Time Signed: 03/02/22 11:19 EDT Outpatient Surgery Discharge Instructionon 03-02-2022 Outpatient Surgery Discharge Instruction [address] [address] Patient Discharge Instructions PERSON INFORMATION Name: JENNIFER ZAMORA Date of : 1970 Current Date: 03/02/2022 11:17:46 PHYSICIANS Admitting Physician: Yinka OJEDA MD Comment: Discharge Diagnosis: JENNIFER ZAMORA has been given the following list of follow-up instructions, prescriptions, and patient education materials: IF UNABLE TO CONTACT YOUR PHYSICIAN AND YOU FEEL IT IS AN EMERGENCY, GO TO THE NEAREST EMERGENCY ROOM OR CALL 911 Follow up: With: Address: When: MABLE DESHPANDE [address] [place] [phone] [facility] (1) Within 6 weeks Comments: Call for [...] a fever over 100 degrees I, JENNIFER ZAMORA, have received the attached patient education materials/instruction [...] to serve you. Thank you for choosing [facility] Normal [facility] Pre-Certification Formon Pre-Certification Form [id number]# 1.00CD:[address] [facility] Formson 02-22-2022 Forms [id number]#1 .00CD:[address] [facility] Urology Office/Clinic Noteon 02-21-2022 Urology Office/Clinic Note [...] UTIs directly correlates to sexual activity increase. [employer]PERVIS[employer]PARTMENT (Juan) already started her on post-coital Keflex [...] baths & hot tubs, avoid any scented [employer] products, urinate after sexual activity, etc) 5) [...] Contact Information CHARLEE OSCAR, MABLE Toney, URL [address] [place] [address] Additional Instructions: Will schedule Cysto Patient Education Urinary Tract Infection, Adult, Kwan-ew-Gkbf Grecia Morales, personally scribed for Mable Deshpande [...] 14:37:00) L (more content not included)... Normal [facility] Comment on above: Result Comment: Elec tronically [...] these instructions at home: Medicines ? Take omsb-uau-shqmbgx and prescription medicines only as told by [...] 03/19/2009 Document Revised: 09/18/2019 Document Reviewed: 04/10/2019 [employer] Patient Education ? 2020 CME. [facility] Urinalysis - AUTOMATEDon Appearance (U) clear [employer] Other Bilirubin Ql (U) Negative [facility] Other Color (U) orange yellow [employer] Other Glucose Ql (U) 100 [employer] Other Hemoglobin Ql (U) small [employer] Other Ketones Ql (U) trace [employer] Other Nitrite Ql (U) Positive [employer] Other pH (U) 6.5 [pH] [employer] Other Protein Ql (U) trace [employer] Other Specific gravity (U) [Rel density] 1.025 [employer] Other Urobilinogen (U) [Mass/Vol] 1.0 mg/dL [employer] Other Urinalysis - AUTOMATED No rt [employer] Other Urine Cultureon 01-01-2022 Bacteria identified Cx Nom (U) Reason for Exam Dysuria Urine Reason for Exam: Dysuria : Urine No Growth 2 Days PERFORMED BY: [place] [id number] PATHOLOGIST [employer] DENIS MULLER M.D. [facility] Comment on above: Performed By: #### C UU #### [address] Office Visit (Cardiology)on 11-09-2021 Follow-up visit [...] signing my name below, I, Ramesh Houston LPNibe, attest that this documentation has been prepared [...] up in 9 months Chief Complaint JENNIFER ZAMORA is being seen for a 4 [...] Vital Signs Recorded: 09Nov2021 02:37PMRecorded: 09Nov2021 02:32PM Joqxtjkt129, LUE, Cqdulxv391, LUE, Sitting Lnzapkrvj44, LUE, Vxablwv73, LUE, Sitting Heart Rate69, L Brachial Artery Height5 ft 7 in Solyuf642 lb BMI Ewqaojrhta39.96 kg/m2 BSA Calculated2.17 Tobacco Useb) No Fall Screeningc) Not medical (more content not included)... Normal [facility] Tobacco Screening.on 022 Fall risk assessment c) Not medically indicated [facility] [employer] 250 DO Work Phone: Tobacco use status CPHS b) No M [facility] [employer] 250 DO Work Phone: COVID Quick Testingon 2020 Result Negative [facility] [employer] Other [facility] CARDIAC STRESS/REST INJE CTIONon 04-05-2021 [facility] CARDIAC STRESS/REST INJECTION Patient Name: JENNIFER ZAMORA STUDY: MYOCARDIAL PERFUSION STRESS TEST WITH EXERCISE Performing facility: [facility], [address] [place] [address] Provider: Joao Colmenares MD PCP: Dr. Beatrice Arriaga Supervising provider: Joao Colmenares MD INDICATION: Abnormal EKG; Palpitations NSVT HISTORY: Gender: F; Age: 50 y/o ; Height: 170.18 cm; Weight: 811.3480098 kg. HTN; Palpitations; SOB; Denies smoking. COMPARISON: No comparison. ACCESSION NUMBER(S): [id number]; [id number]; [id number] ORDERING CLINICIAN: JOAO COLMENARES TECHNIQUE: TWO DAY [...] Time Vital Sign Value Performing Clinician Facility 10-21-2024 14:59-0500 Body height 170.18 cm [facility] 10-21-2024 14:59-0500 Body mass index (BMI) [Ratio] 26.3 kg/m2 [facility] 10-21-2024 14:59-0500 Body weight 76.2 kg [facility] 10-21-2024 14:59-0500 Diastolic blood pressure 98 mm[Hg] [facility] 10-21-2024 14:59-0500 Heart rate 80 /min [facility] 10-21-2024 14:59-0500 Respiratory rate 12 /min [facility] 10-21-2024 14:59-0500 Systolic blood pressure 158 mm[Hg] [facility] 06-13-2024 17:20-0400 Body height 170.18 cm [facility] 06-13-2024 17:20-0400 Body mass index (BMI) [Ratio] 24.1 kg/m2 [facility] 06-13-2024 17:20-0400 Body temperature 97.1 [degF] [facility] 06-13-2024 17:20-0400 Body weight 69.96 kg [facility] 06-13-2024 17:20-0400 Diastolic blood pressure 93 mm[Hg] [facility] 06-13-2024 17:20-0400 Heart rate 83 /min [facility] 06-13-2024 17:20-0400 Respiratory rate 16 /min [facility] 06-13-2024 17:20-0400 SaO2% (BldA) [Mass fraction] 99 % [facility] 06-13-2024 17:20-0400 Systolic blood pressure 136 mm[Hg] [facility] 02-19-2023 16:30-0400 Body height 170.18 cm Gr[facility] Other [facility] [employer] Other 02-19-2023 16:30-0400 Body mass index (BMI) [Ratio] 25.12 kg/m2 Grady Ball Other [facility] [facility] Other 02-19-2023 16:30-0400 Body weight 72.76 kg Grady Ball Other [employer] [facility] [employer] Other 02-19-2023 16:30-0400 Diastolic blood pressure 87 mm[Hg] Grady Ball Other [employer] Other 02-19-2023 16:30-0400 Respiratory rate 12 /min Grady Ball Other [employer] Other 02-19-2023 16:30-0400 Systolic blood pressure 146 mm[Hg] Grady Ball Other [employer] Other 11-20-2022 11:50-0500 Body height 170.18 cm Clarecindy Justin Other [employer] Other 11-20-2022 11:50-0500 Body mass index (BMI) [Ratio] 24.68 kg/m2 Clare Margoth Other [employer] Other 11-20-2022 11:50-0500 Body temperature 98.2 [degF] Clare Justin Other [employer] Other 11-20-2022 11:50-0500 Body weight 71.49 kg Clare Justin Other [employer] Other 11-20-2022 11:50-0500 Respiratory rate 18 /min Clare Justin Other [employer] Other 11-20-2022 11:50-0500 SaO2% (BldA) [Mass fraction] 97 % Clare Justin Other [employer] Other 07-18-2022 13:41-0400 Body height 170.18 cm Grady Toney [employer] Work Phone: [employer] Work Phone: 07-18-2022 13:41-0400 Body mass index (BMI) [Ratio] 28.54 kg/m2 Grady [employer] For Work Phone: [employer] DO Work Phone: 07-18-2022 13:41-0400 Body surface area Derived from formula 1.94 m2 Grady E Ball Work Phone: [employer] DO Work Phone: 07-18-2022 13:41-0400 Body weight 82.67 kg Grady E Ball Work Phone: [employer] DO Work Phone: 07-18-2022 13:41-0400 Diastolic blood pressure 82 mm[Hg] Grady E Ball Work Phone: [employer] DO Work Phone: 07-18-2022 13:41-0400 Heart rate 68 /min Grady E Ball Work Phone: [facility] DO Work Phone: 07-18-2022 13:41-0400 Systolic blood pressure 130 mm[Hg] Grady Arriaga Work Phone: [facility] [employer] DO Work Phone: 02-21-2022 14:42-0400 Blood Pressure Location MABLE DESHPANDE [facility] [place] 02-21-2022 14:42-0400 Diastolic blood pressure 84 mm[Hg] MABLE DESHPANDE [facility] [place] 02-21-2022 14:42-0400 Heart rate 84 /min MABLE DESHPANDE [facility] [place] 02-21-2022 14:42-0400 Systolic blood pressure 123 mm[Hg] MABLE DESHPANDE [facility] [place] 01-01-2022 15:45-0400 Body height 170.18 cm Clare Justin Other [employer] Other 01-01-2022 15:45-0400 Body mass index (BMI) [Ratio] 34.45 kg/m2 Clare Margoth Other [employer] Other 01-01-2022 15:45-0400 Body temperature 97.8 [degF] Clare Justin Other [employer] Other 01-01-2022 15:45-0400 Body weight 99.79 kg Clare Justin Other [employer] Other 01-01-2022 15:45-0400 Diastolic blood pressure 86 mm[Hg] Clare Justin Other [employer] Other 01-01-2022 15:45-0400 Respiratory rate 18 /min Clare Justin Other [employer] Other 01-01-2022 15:45-0400 SaO2% (BldA) [Mass fraction] 100 % Clare Justin Other [employer] Other 01-01-2022 15:45-0400 Systolic blood pressure 129 mm[Hg] Clare Justin Other [employer] [employer] Other 11-09-2021 14:37-0500 Diastolic blood pressure 90 mm[Hg] Grady Toney [employer] Work Phone: [employer] Work Phone: 11-09-2021 14:37-0500 Systolic blood pressure 142 mm[Hg] Grady Toney Ball Work Phone: [employer] Work Phone: 11-09-2021 14:32-0500 Body height 170.18 cm Grady Toney Ball Work Phone: [employer] Work Phone: 11-09-2021 14:32-0500 Body mass index (BMI) [Ratio] 36.96 kg/m2 Grady Toney Ball Work Phone: [employer] DO Work Phone: 11-09-2021 14:32-0500 Body surface area Derived from formula 2.17 m2 Grady Toney Ball Work Phone: [employer] DO Work Phone: 11-09-2021 14:32-0500 Body weight 107.05 kg Grady Toney Ball Work Phone: [facility] [employer] 250 DO Work Phone: 11-09-2021 14:32-0500 Diastolic blood pressure 89 mm[Hg] Grady E Ball Work Phone: [facility] [employer] 250 DO Work Phone: 11-09-2021 14:32-0500 Heart rate 69 /min Grady Toney Ball Work Phone: [facility] [employer] 250 DO Work Phone: 11-09-2021 14:32-0500 Systolic blood pressure 146 mm[Hg] Grady Toney Ball Work Phone: [facility] [employer] 250 DO Work Phone: 08-03-2021 15:45-0400 Body height 170.18 cm Clare Margoth Other [facility] Other 08-03-2021 15:45-0400 Body mass index (BMI) [Ratio] 37.59 kg/m2 Clare Margoth Other [facility] Other 08-03-2021 15:45-0400 Body temperature 99.2 [degF] Clare Margoth Other [facility] Other 08-03-2021 15:45-0400 Body weight 108.86 kg Clare Margoth Other [facility] Other 08-03-2021 15:45-0400 Respiratory rate 18 /min Clare Margoth Other [facility] Other 08-03-2021 15:45-0400 SaO2% (BldA) [Mass fraction] 97 % Clare Justin Other [facility] [employer] Other Encounters Encounter Date Encounter Type Care Provider Facility Start: 10-21-2024 End: 10-21-2024 ambulatory [facility] Work Phone: Start: 10-21-2024 End: 10-21-2024 Encounter for general adult medical examination without abnormal findings [facility] Start: 10-21-2024 End: 10-21-2024 Patient encounter procedure [facility] Physician [facility] Work Phone: Start: 10-19-2024 Patient encounter status [facility] Start: 10-14-2024 Non-patient / Non-visit [facility] Physician [facility] Work Phone: Start: 06-23-2024 End: 06-23-2024 ambulatory [facility] Work Phone: Start: 06-23-2024 End: 06-23-2024 Patient encounter procedure [facility] Physician [facility] Work Phone: Start: 06-13-2024 End: 06-13-2024 ambulatory [facility] Work Phone: Start: 06-13-2024 End: 06-13-2024 Patient encounter procedure [facility] Work Phone: Start: 06-05-2024 End: 06-05-2024 Bamboo flowsheet Armando Juan DO Work Phone: [facility] Start: 06-05-2024 End: 06-11-2024 Bamboo flowsheet Armando Juan DO Work Phone: [facility] Start: 06-05-2024 End: 06-11-2024 Clinisync Result Encounter Armando Juan DO Work Phone: [facility] Unsolicited Start: 06-05-2024 End: 06-05-2024 Patient encounter procedure Armando Juan DO Work Phone: [facility] Start: 06-05-2024 End: 06-05-2024 Periodic preventive med est patient 40-64yrs Armanod Bennetto DO Work Phone: 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 Start: 06-05-2024 Non-patient / Non-visit [facility] Physician [facility] Work Phone: Start: 06-05-2024 End: 06-05-2024 ambulatory ARMANDO MARTINEZ Not Available Start: 05-21-2024 End: 05-21-2024 ambulatory JAGUAR PERKINS Not Available Start: 05-05-2024 End: 05-05-2024 ambulatory [facility] Work Phone: Start: 05-05-2024 End: 05-05-2024 Patient encounter procedure [facility] Physician [facility] Work Phone: Start: 03-27-2024 Non-patient / Non-visit [facility] Physician [facility] Work Phone: Start: 03-26-2024 Non-patient / Non-visit [facility] Physician [facility] Work Phone: Start: 02-01-2024 End: 02-01-2024 ambulatory [facility] Work Phone: Start: 02-01-2024 End: 02-01-2024 Patient encounter procedure [facility] Physician [facility] Work Phone: Start: 01-08-2024 Non-patient / Non-visit [facility] Physician [facility] Work Phone: Start: 11-13-2023 End: 11-13-2023 ambulatory Grady Arriaga Other [place] [employer] Other Start: 11-13-2023 Telephone encounter Grady Arriaga [facility] Start: 08-21-2023 End: 08-21-2023 ambulatory Grady Arriaga Other [facility] Other Start: 08-21-2023 Nursing evaluation o f patient and report Grady Pippa [facility] Start: 07-11-2023 End: 07-11-2023 ambulatory Grady Arriaga Other [employer] Other Start: 07-11-2023 Telephone encounter Grady Arriaga [facility] Start: 05-28-2023 End: 05-28-2023 ambulatory Grady Arriaga Other [facility] Other Start: 05-28-2023 Office outpatient vi sit 15 minutes Grady Arriaga [facility] Start: 05-02-2023 End: 05-02-2023 ambulatory Grady Arriaga Other [facility] Other Start: 05-02-2023 Nursing evaluation o f patient and report Grady Pippa [facility] Start: 02-19-2023 End: 02-19-2023 ambulatory Grady Pippa Other [facility] Other Start: 02-19-2023 Office outpatient vi sit 15 minutes Grady Arriaga [facility] Start: 02-07-2023 End: 02-08-[address] GRADY ARRIAGA Facility:[facility] Start: 01-23-2023 End: 01-23-2023 ambulatory Grady Pippa Other [facility] Other Start: 01-23-2023 Telephone encounter Grady Arriaga [facility] Start: 12-20-2022 End: 12-20-2022 ambulatory Grady Pippa Other [facility] Other Start: 12-20-2022 Nursing evaluation o f patient and report Grady Arriaga [facility] Start: 12-05-2022 End: 12-06-[address] GRADY ARRIAGA Facility:[facility] Start: 11-30-2022 End: 12-01-[address] ARMANDO MARTINEZ . Facility:[facility] Start: 11-29-[address] GRADY ARRIAGA Facili ty:[facility] Start: 11-20-2022 End: 11-20-2022 ambulatory Clare Margoth Other [place] [facility] Other Start: 11-20-2022 Office outpatient vi sit 15 minutes Clare Margoth [facility] Start: 11-16-2022 (Televisit) [facility] Start: 11-16-2022 End: 11-16-2022 ambulatory Gela Ortiz Other [place] [facility] Other Start: 10-25-2022 End: 10-26-[address] ARMANDO MARTINEZ . Facility:[facility] Start: 10-11-2022 End: 10-12-[address] ARMANDO MARTINEZ . Facility:[facility] Start: 10-11-2022 End: 10-12-[address] GRADY ARRIAGA Facility:[facility] Start: 09-30-2022 Encounter for genera l adult medical examination without abnormal findings DR GRADY ARRIAGA [facility] Start: 09-25-2022 End: 09-26-[address] GRADY ARRIAGA Facility:[facility] Start: 09-25-2022 End: 09-26-2022 Encounter for general adult medical examination without abnormal findings DR GRADY ARRIAGA Facility:[facility] Start: 09-01-2022 Adult health examination Guero Arriaga Other [place] [employer] Other Start: 09-01-2022 Gynecological examination catie Arriaga Other [employer] Other Start: 07-18-2022 Office outpatient vi sit 15 minutes Grady Arriaga Work Phone: [facility] 250 DO Work Phone: Start: 07-18-[address] Joao Colmenares Facility: Start: 07-15-2022 End: 07-15-2022 ambulatory KELLY CAMP . Facility:[facility] Start: 03-02-2022 End: 03-02-2022 Patient encounter procedure Yinka OJEDA [facility] Start: 02-21-2022 End: 02-21-2022 Patient encounter procedure MABLE MACIASRY [facility] Start: 01-01-2022 End: 01-01-2022 ambulatory Clare Justin Other [facility] [employer] Other Start: 01-01-2022 Office outpatient vi sit 15 minutes Clare Justin [facility] Start: 11-09-2021 Office outpatient vi sit 25 minutes Grady Arriaga Work Phone: [facility] 250 DO Work Phone: Start: 11-09-[address] Joao Colmenares Facility: Start: 08-03-2021 (URG) Urgent Care Visit Clare de los santos [facility] Procedures Date Procedure Procedure Detail Performing Clinician Start: 06-05-2024 IGP,APTIMA HPV,AGE GDLN Armando Juan DO Work Phone: Start: 11-30-2022 Mammography Armando Fazi o DO Work Phone: Start: 01-09-2022 Microscopic observat ion [Identifier] in Cervix by Cyto stain Armando Juan DO Work Phone: Appendectomy Grady E Pippa Work Phone: Appendectomy MABLE DESHPANDE Depression screening Benjami n Ball Other Hysterectomy Grady E Ball Work Phone: Hysterectomy MABLEKEVEN DESHPANDE Ligation of fallopian tube B enjamin E Ball Work Phone: Ligation of fallopian tube J ENOBDULIA MACIASRY Operation on bladder Benjami n E Ball Work Phone: Screening for malign ant neoplasm of breast Grady Arriaga Other Total colonoscopy Grady Arriaga Work Phone: Plan of Treatment Date Care Activity Detail Author Start: 01-09-2027 Screening for malignant neoplasm of cervix [facility] Start: 09-06-2024 Screening for malignant neoplasm of colon [facility] Start: 06-15-2024 Influenza vaccination Influenza Vacc ine (#1) [facility] Start: 06-05-2024 End: 06-05-2025 DXA Skeletal system Views for bone density DEXA bone density Imaging Routine Postmenopausal state Expected: 06/05/2024 (Approximate), Expires: 06/05/2025 [facility] Comment on above: Expected: 06/05/2024 (Approximate), Expires: 06/05/2025 Start: 06-05-2024 End: 08-05-2025 MG Breast - bilateral Screening Bilateral screening mammogram Imaging Routine Breast cancer screening by mammogram Expected: 06/05/2024 (Approximate), Expires: 08/05/2025 [facility] Work Phone: Comment on above: Expected: 06/05/2024 (Approximate), Expires: 08/05/2025 Start: 06-05-2024 End: 06-05-2024 Patient encounter procedure 06/05/2024 11:50 AM EDT Office Visit [facility] [address] [place] [address] Armando Martinez, DO [address] [place], [place] [address] Arrived [facility] Comment on above: Arrived Start: 11-30-2023 Screening for malignant neoplasm of breast Mammogram [facility] Start: 07-24-2023 FUV, Provider: Joao Colmenares, Status: Pen, Time: 2:00 PM FUV, Provider: Joao Colmenares, Status: Pen, Time: 2:00 PM [facility] 250 DO Work Phone: Start: 07-18-2022 FUV, Provider: Joao Colmenares, Status: Pen, Time: 1:40 PM FUV, Provider: Joao Colmenares, Status: Pen, Time: 1:40 PM [place] [address] DO Work Phone: Start: 1970 Screening for malignant neoplasm of colon [facility] THIN PREP TIS PAP AN D HR HPV DNA THIN PREP TIS PAP AND HR HPV DNA Pathology and Cytology Routine Well woman exam with routine gynecological exam Ordered: 06/05/2024 [facility] Comment on above: Ordered: 06/05/2024 Immunizations Immunization Date Immunization Notes Care Provider Fa frances 01-27-2021 Pfizer-BioNTech COVID-19 Vacc 30 MCG/0.3ML Intramuscular Suspension Grady Arriaga Work Phone: [place] [address] DO Work Phone: 01-05-2021 Pfizer-BioNTech COVID-19 Vacc 30 MCG/0.3ML Intramuscular Suspension Grady Toney Pippa Work Phone: [place] [address] DO Work Phone: 11-21-2016 influenza, intraderm al, quadrivalent, preservative free, injectable Grady Feng Pippa Work Phone: [place] [address] DO Work Phone: 11-21-2016 tetanus toxoid, redu evie diphtheria toxoid, and acellular pertussis vaccine, adsorbed Grady Feng Pippa Work Phone: [place] [address] DO Work Phone: 11-21-2016 influenza virus vaccine, unspecified formulation Armando Martinez DO Work Phone: [facility] 08-24-2009 novel [id number], preservative-free, injectable Grady oTney Pippa Work Phone: [place] [address] DO Work Phone: Payers Date Payer Category Payer Unknown 2023 [place] [id number] 1970 Unknown [id number] 2.16. [id number] 1969 Unknown [id number] 2.16. [id number] 1969 Unknown [id number] 2.16.84 [id number] 1969 Unknown [id number] 2.16.84 [id number] 1969 Unknown [id number] 2.16.84 [id number] 1969 Unknown [id number] 2.16.84 [id number] 1969 Unknown [id number] 2.16.84 [id number] 1969 Unknown [id number] 2.16.84 [id number] 1969 Unknown [id number] 2.16.84 [id number] 1969 Unknown [id number] 2.16.84 [id number] 1969 Unknown [id number] 2.16.84 [id number] 1969 Unknown [id number] 2.16.84 [id number] 1969 Unknown [id number] 2.16.84 [id number] 1960 Medicaid [id number] 2. [id number] 1959 Self-pay 1960 Unknown [id number] 2.16. [id number] Social History Date Type Detail Facility No alcohol use No alcohol use [facility] Other Start: 02-21-2022 End: 06-13-2024 Tobacco smoking status Never smoked tobacco (finding) [facility] [employer] Tobacco smoking status Never [facility] [employer] Sex Assigned At Female [facility] Other Start: 1970 Sex Assigned At Female F [facility] Tobacco smoking status CAIS Tobacco smoking consumption unknown [facility] Start: 1970 Sex assigned at Not on file [facility] Start: 10-21-2024 Sex Female (finding) [facility] Clinical Notes 08-03-2021 to 06-05-2024 Mita Chaudhari, INDUST[employer]AL CLE[employer]ER - 06/05/2024 11:50 AM EDT Note Date & Type Note Facility 06-05-2024 History of Presen t illness Narrative Reason for Appointment: Patient ID: Jennifer Zamora is a 53 y.o. female who presents for Well Women Visit Patient presents today for Annual Exam. MEDICATIONS Current Outpatient Medications Medication Instructions aspirin 81 MG EC tablet Daily losartan-hydroCHLOROthiazide (Hyzaar) 50-12.5 MG tablet 1 tablet, Oral, Daily metoprolol succinate XL (TOPROL-XL) 25 mg, Oral, Daily ALLERGIES No Known Allergies PROBLEMS Active Ambulatory Problems Diagnosis Date Noted No Active Ambulatory Problems Resolved Ambulatory Problems Diagnosis Date Noted No Resolved Ambulatory Problems No Additional Past Medical History HISTORY PAST MEDICAL HISTORY SOCIAL HISTORY History reviewed. No pertinent past medical history. Social History Tobacco Use Smoking status: Not on file Smokeless tobacco: Not on file Substance Use Topics Alcohol use: Not on file Drug use: Not on file FAMILY HISTORY No family history on file. SURGICAL HISTORY Past Surgical History: Procedure Laterality Date TOTAL ABDOMINAL HYSTERECTOMY 07/31/2008 [place] TUBAL LIGATION REVIEW OF SYSTEMS Review of Systems: Review of Systems All other systems reviewed and are negative. OBJECTIVE Objective: Physical Exam Constitutional: Appearance: Normal appearance. She is well-developed. Genitourinary: Vulva normal. Vaginal cuff intact. Right Adnexa: not tender and no mass present. Left Adnexa: not tender and no mass present. Cervix is not absent. No cervical discharge. Uterus is not absent. Breasts: Breasts are soft. Right: Normal. Left: Normal. HENT: Head: Normocephalic. Nose: Nose normal. Mouth/Throat: Mouth: Mucous membranes are moist. Cardiovascular: Rate and Rhythm: Normal rate and regular rhythm. Pulmonary: Effort: Pulmonary effort is normal. Abdominal: General: Bowel sounds are normal. There is no distension. Palpations: Abdomen is soft. Tenderness: There is no abdominal tenderness. There is no guarding or rebound. Musculoskeletal: General: No swelling. Normal range of motion. Cervical back: Normal range of motion. Right lower leg: No edema. Left lower leg: No edema. Neurological: General: No focal deficit present. Mental Status: She is alert and oriented to person, place, and time. Skin: General: Skin is warm and dry. Psychiatric: Mood and Affect: Mood normal. Behavior: Behavior normal. Vitals and nursing note reviewed. Exam conducted with a pick up man present. Vitals: Estimated body mass index is 24.12 kg/m as calculated from the following: Height as of 10/11/22: 5' 7 . Weight as of 05/21/24: 154 lb. BP: No LMP recorded (lmp unknown). Patient has had a hysterectomy. ASSESSMENT & PLAN ICD-10-CM 1. Well woman exam with routine gynecological exam Z01.419 THIN PREP TIS PAP AND HR HPV DNA 2. Breast cancer screening by mammogram Z12.31 Bilateral screening mammogram Bilateral screening mammogram 3. Postmenopausal state Z78.0 DEXA bone density Annual Exam: Patient presents today for an annual exam. Patient states she is doing well and has complaints of occasional inability to climax. Will send order to [facility] for Progesterone/Testosterone cream to be compounded. Pap was obtained without difficulty. Orders Placed This Encounter Procedures Bilateral screening mammogram DEXA bone density Follow Up: Patient is to return in one year for annual unless needed otherwise. Patient to setup telehealth appointment in 8 weeks to follow up on medication. Documented by Mita Chaudhari LPN on behalf of: Armando Martinez DO documented in this encounter [facility] 08-21-2023 Evaluation note Encounter Date Diagnosis Assessment Notes Aug, Seasonal allergies (ICD-10 - J30.2) [facility] Other 08-14-2023 Evaluation note* Encounter Date Diagnosis Assessment Notes Treatment Notes Treatment Clinical Notes May, Acute bacterial conjunctivitis of left eye (ICD-10 - H10.32) Use artificial tears as much as possible. Use warm washcloth to remove crusting debris from lashes May, Dysfunction of left eustachian tube (ICD-10 - H69.92) Flonase and Claritin D. Valsalva to open ET [facility] Other 07-19-2023 Evaluation note* Encounter Date Diagnosis Assessment Notes Treatment Notes Treatment Clinical Notes Apr, Seasonal allergic rhinitis, unspecified trigger (ICD-10 - J30.2) [facility] Other 05-08-2023 Evaluation note* Encounter Date Diagnosis [...] Other Healthy diet, exercise and keep active [facility] Other 04-26-2023 NotePROCEDURE: XR FOOT RT MIN [...] Electronically authenticated by: LAM DORSEY Date: 2023-02-07 12:23[facility]04-26-2023 NotePROCEDURE: XR ANKLE RT MIN 3 VIEWS DATE: 02/07/2023 10:24 AM CDT COMPARISONS: None CLINICAL INDICATION: Right ankle pain. FINDINGS: There is no evidence of fractures or other osseous abnormalities. The ankle mortise is intact. IMPRESSION: Right ankle radiographs show no evidence of significant abnormalities. Electronically authenticated by: LAM DORSEY Date: 2023-02-07 12:19[facility]03-08-2023 Evaluation note* Encounter Date Diagnosis Assessment Notes Treatment Notes Treatment Clinical Notes Dec, Seasonal allergic rhinitis, unspecified trigger (ICD-10 - J30.2) [facility] Other 02-06-2023 Evaluation note* Encounter Date Diagnosis [...] no improvement in 2 to 3 days. [facility] Other 02-02-2023 Evaluation note* Encounter Date Diagnosis Assessment Notes Treatment Notes Treatment Clinical Notes Nov, Acute cystitis without hematuria (ICD-10 - N30.00) Discussed that bactrim could address her sinusitis symptoms as well. Take tylenol for body aches. Pt unable to provide a UA due to her work responsibilties. [facility] [facility] Other 05-19-2022 Note [id number]:[id number] 03-02-2022 NoteCystoscopy with Urethral Dilation ? Voiding [...] if you have a fever over [address] [facility] Discharge instructions Patient Education 03/02/2022 11:06:17 [...] Up Care 02/21/2022 15:13:40 With:MABLE DESHPANDE Address: [address] [place] [address]. [place] [address] [facility] (1) When:6 weeks Comments:Call for followup appointment. Please finish your antibiotics. Monitor the urinary pattern after the dilation today. [facility]05-09-2022 Hospital Discharge instructions Patient Education 02/20/2022 14:38:38 Urinary Tract Infection, Adult, Juno-nt-Gdyk Urinary Tract Infection, Adult A urinary tract [...] Follow these instructions at home: Medicines Take hhzs-ksa-moggtnq and prescription medicines only as told by [...] 03/19/2009 Document Revised: 09/18/2019 Document Reviewed: 04/10/2019 [employer] Patient Education 2020 CME. Follow Up Care 01/31/2022 10:31:51 With:MABLE DESHPANDE PA-C, URL Address: [address] [place] [address] When: Unknown Comments:Will schedule Cysto [facility] 03-20-2022 Evaluation note* Encounter Date Diagnosis Assessment Notes Treatment Notes Treatment Clinical Notes Dec, Dysuria (ICD-10 - R30.0) Dec, Urinary tract infection, site not specified (ICD-10 - N39.0) Drink plenty fluids, get plenty of rest. Take the Macrobid as prescribed until gone. Take the Diflucan as prescribed until gone. Continue to take the dbkz-ffm-lzlpgbl Azo for your symptoms. Follow-up with your physician if no improvement in 2 to 3 days. Dec, Hematuria, unspecified (ICD-10 - R31.9) [facility] Other 10-20-2021 Evaluation note* Encounter Date Diagnosis [...] Patient care instructions given in writting by [facility] Care At Home document. [place] [employer] Other evaluation + Plan note Future Appointments Appointment Date:02/23/2022 09:45:00 AM Scheduled Provider: Location:[facility] Appointment Type:Urology CALL PAT FT Appointment Date:03/02/2022 11:00:00 AM Scheduled Provider: Location:[facility] Appointment Type:Urology FT [facility] Evaluation + Plan note Future Appointments Appointment Date:04/13/2022 03:15:00 PM Scheduled Provider:MABLE DESHPANDE PA-C Location:[facility] App[facility]URO [facility] Other Evaluation noteNo assessment information available [facility] Work Phone: Evaluation note* Diagnosis Onset Date Resolution Status Acute frontal sinusitis acut e [facility] Work Phone: Evaluation note* Diagnosis Onset Date Resolution Status Acute frontal sinusitis acut e Hypertension acute Major depression acute Palpitations acute [facility] Work Phone: Evaluation note* Diagnosis Well woman exam with routine gynecological exam Routine gynecological examination Breast cancer screening by mammogram Postmenopausal state Asymptomatic postmenopausal status (age-related) (natural) Acute vaginitis Unspecified vaginitis and vulvovaginitis Anorgasmia of female [facility] Diagnosis Onset Date Resolution Status Admit Date Hypertension acute October 21, 2024 2:52pm Major depression acute October 21, 2024 2:52pm Palpitations acute October 21, 2024 2:52pm Screening mammogram for [facility] cancer acute October 21 2:52pm Wellness examination acute 2024 2:52pm [facility] Work Phone: Hisxryt general Narrative - Reported* Type Description Date Medical History Hypertension Medical History ADHD Medical History chronic depression Medical History heart palpitations Surgical History C section Surgical History hysterectomy Surgical History appendectomy Hospitalization History see above [facility] Other [facility] general Narrative - Reported* Type Description Date [...] section Surgical History hysterectomy Surgical History appendectomy 2011 Hospitalization History see above [facility] Other History of Present illness Narrative* Patient [...] month or earlier if the need arise [facility] [address] DO Work Phone: History of Present illness [...] year with plan to repeat her EKG [facility] 250 DO Work Phone: Hospital course Narrative No data available for this section [facility] Summary Purpose Family History Unknown Family Member [...] Time Advance Directives No May 03 3:09pm Advance Directive Response Recorded Date/ Time Advance Directives No May 03 2:09pm Chief Complaint JENNIFER ZAMORA is being seen for a 4 month follow-up of.JENNIFER ZAMORA is being seen for a 9 month follow-up of. Chief Complaint and Reason for Visit Chief Complaint Amb Documentation Sinus infection Chief Complaint allergy shot Chief Complaint allergy shot congestion,headache,(smell coming from nose?) Reason for Visit Acute frontal sinusi tis Chief Complaint allergy shot congestion,headache,(smell coming from nose?) depression medication [phone] Reason for Visit Acute frontal sinusi tis Hypertension Major depression Palpitations Chief Complaint Admit Date Wellness October 21, 2024 2: 52pm Reason for Visit Admit Date Hypertension October 21, 2024 2: 52pm Major depression October 21, 2024 2: 52pm Palpitations October 21, 2024 2: 52pm Screening mammogram for breast cancer Sergey jack 2024 2:52pm Wellness examination October 21, 2024 2 :52pm Additional Source Comments INFORMATION SOURCE (unrecogn ized section and content) DATE CREATED AUTHOR 04/09/2021 [facility] DATE CREATED AUTHOR AUTHOR'S ORGANIZ ATION 01/05/2022 [facility] DATE CREATED AUTHOR AUTHOR'S ORGANIZ ATION 06/09/2022 [facility] [facility] DATE CREATED AUTHOR AUTHOR'S ORGANIZ ATION 07/19/2022 [facility] DATE CREATED AUTHOR AUTHOR'S ORGANIZ ATION 07/19/2022 [facility] DATE CREATED AUTHOR AUTHOR'S ORGANIZ ATION 02/16/2023 [facility] DATE CREATED AUTHOR AUTHOR'S ORGANIZ ATION 06/07/2024 [facility] EPIC REASON FOR VISIT (unrecogniz ed section and content) Reason Comments Well Women Visit Care Teams (unrecognized sec tion and content) [...] Provider Active Start: March 26, 2024 Yaneth Ann DO Attending Provider Active Start: March 26, 2024 Team Status: Active Member Role Status Dates Grady Arriaga DO Primary Care Provide r, Attending Provider Active Start: March 27, 2024 Team Status: Inactive Member Role Status Dates Grady Arriaga DO Primary Care Provide r, Attending Provider Active Start: May 05, 2024 End: May 05, 2024 Team Status: Active Member Role Status Dates Grady Arriaga DO Primary Care Provider Active Start: June 05, 2024 Armando Martinez DO Attending Provider Active Start : June 05, 2024 Team Status: Inactive Member Role Status Dates Grady Arriaga DO Primary Care Provider Active Start: June 13, 2024 End: June 13, 2024 Cindy Lake APRN Attending Provider Active Start: June 13, 2024 End: June 13, 2024 Team Status: Inactive Member Role Status Dates Grady Arriaga , DO Primary Care Provide r, Attending Provider Active Start: June 23, 2024 End: June 23, 2024 Team Status: Active Member Role Status Dates Grady Arriaga , DO Primary Care Provide r, Attending Provider Active Start: October 14, 2024 Team Status: Inactive Member Role Status Dates Grady Arriaga , DO Primary Care Provide r, Attending Provider Active Start: October 21, 2024 End: October 21, 2024 Goals (unrecognized section and content) Goals [...] BE BASED ON THE PRIMARY CLINICAL RECORDS. [employer] provides no warranty or guarantee of the accuracy or completeness of information in this document.
[2024-11-30 12:16] VITALS: BP 146/90; PULSE 87; TEMP 36.4; O2SAT 100; BMI 25.1
--- NOTE | 2024-11-30 12:35 | CT_ITS ---
The [address] [address] Patient Name: CASEY DIAZ MRN: [id number] date: 1970 Sex: F Assigned Patient Location: ER Current Patient Location: Accession/Order Number: [id number] Exam Date: 11/30/2024 13:03 Report Date: 11/30/2024 14:03 At the request of: BETH TESFAYE Procedure: CT abdomen pelvis w con EXAMINATION: CT abdomen pelvis w con INDICATION: Epigastric pain. COMPARISON: None. TECHNIQUE: Multiple contiguous axial CT images of the abdomen and pelvis were obtained after the administration of intravenous contrast. Sagittal and coronal reconstructions were performed. Dose reduction techniques were achieved by using: automated exposure control and/or adjustment of mA and /or kV according to patient size and/or use of iterative reconstruction technique. FINDINGS: LOWER CHEST: No significant abnormality. ABDOMEN AND PELVIS: LIVER: Normal. BILIARY SYSTEM: Cholelithiasis. Probable sludge in the gallbladder fundus distal to a large gallstone. Dilated common bile duct measuring up to 9 mm. Mild intrahepatic biliary ductal dilation. PANCREAS: Normal. SPLEEN: Normal. ADRENAL GLANDS: Normal. URINARY SYSTEM: Partially exophytic enhancing heterogeneous mass in the upper pole the right kidney measuring 1.5 x 1.4 x 1.5 cm. Normal left kidney. No hydronephrosis or urolithiasis. Unremarkable bladder. REPRODUCTIVE: Hysterectomy. GASTROINTESTINAL TRACT: Normal caliber bowel. No bowel wall thickening or inflammation. Appendix not identified and may be surgically absent. No ancillary findings of acute appendicitis. VESSELS: Nonaneurysmal abdominal aorta with mild atherosclerotic calcifications. Patent abdominal vasculature. LYMPH NODES: No adenopathy. PERITONEUM: No ascites or pneumoperitoneum. MUSCULOSKELETAL: SOFT TISSUES: scar noted in the lower abdomen. BONES: No acute osseous abnormality or suspicious osseous lesion. ALAN: (series:image) CT/CT abdomen pelvis w con IMPRESSION: 1. Cholelithiasis and suspected gallbladder sludge. 2. Mild intra and extrahepatic biliary ductal dilation. Consider MRCP to assess for choledocholithiasis. 3. Right renal enhancing 1.5 cm mass concerning for renal cell carcinoma. Electronically authenticated by: DIANE SIMMS Date: 11/30/2024 14:03
--- NOTE | 2024-11-30 12:35 | ECG_ITS ---
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
--- NOTE | 2024-11-30 12:38 | ED.ABDPAIN1 ---
HPI - Abdominal Pain General Chief Complaint: Abdominal Pain Stated Complaint: ABDOMINAL PAIN Time Seen by Provider: 11/30/24 12:32 Source: patient Mode of arrival: walk-in Limitations: no limitations History of Present Illness HPI narrative: 54-year-old female presents for epigastric pain. It started 1 hour ago while she was laying down. An hour previous she had eaten a bowl of cereal. No vomiting constipation or diarrhea and she has never had pain like this before today. She still has her gallbladder. She does not complain of lower abdominal pain. The pain has been continuous. Related Data Home Medications ?Medication ?Instructions ?Recorded ?Confirmed losartan 50 mg-hydrochlorothiazide 1 tab PO QDAY 03/26/24 11/30/24 12.5 mg tablet metoprolol succinate 25 mg 25 mg PO QDAY 03/26/24 11/30/24 tablet,extended release 24 hr oxycodone-acetaminophen 5 mg-325 1 tab PO Q8H PRN pain 11/30/24 11/30/24 mg tablet Allergies Allergy/AdvReac Type Severity Reaction Status Date / Time No Known Drug Allergies Allergy Verified 11/30/24 12:14 Review of Systems ROS Narrative A ten point review of systems is negative except as noted above. PFSH PFSH Social History Little interest or pleasure in doing things: not at all Feeling down, depressed, or hopeless: not at all Exam Narrative Exam Narrative: Nurses note and vital signs reviewed and patient is not hypoxic. General: The patient appears well and in no apparent distress. Patient is resting comfortably on cart. Skin: Warm, dry, no pallor noted. There is no rash noted. Head: Normocephalic, atraumatic Eye: Normal conjunctiva, no drainage Ears, Nose, Mouth, and Throat: oral mucosa is moist. Nares patent. Cardiovascular: Regular Rate and Rhythm Respiratory: Patient is in no distress, no accessory muscle use, lungs are clear to auscultation, no wheezing, rales or rhonchi Back: non-tender GI: tenderness to palpation in the epigastric area only, no masses appreciated. No rebound, guarding, or rigidity noted. No tenderness in the lower abdomen. Musculoskeletal: The patient has no evidence of calf tenderness, no pitting edema, symmetrical pulses noted bilaterally Neurological: A&O, normal speech Psychiatric: Cooperative Constitutional Vital Signs, click to edit/add: Last Vital Signs Temp 97.6 F 11/30/24 12:16 Pulse 87 11/30/24 12:16 Resp 18 11/30/24 12:16 BP 146/90 H 11/30/24 12:16 Pulse Ox 100 11/30/24 12:16 O2 Del Method Room Air 11/30/24 12:16 Course Vital Signs Vital signs: Vital Signs Temperature 97.6 F 11/30/24 12:16 Pulse Rate 87 11/30/24 12:16 Respiratory Rate 18 11/30/24 12:16 Blood Pressure 146/90 H 11/30/24 12:16 Pulse Oximetry 100 11/30/24 12:16 Oxygen Delivery Method Room Air 11/30/24 12:16 Temperature 97.6 F 11/30/24 12:16 Pulse Rate 87 11/30/24 12:16 Respiratory Rate 18 11/30/24 12:16 Blood Pressure 146/90 H 11/30/24 12:16 Pulse Oximetry 100 11/30/24 12:16 Oxygen Delivery Method Room Air 11/30/24 12:16 MDM - Abdominal Pain MDM Narrative Medical decision making narrative: The patient has large gallbladder stone and the possibility of a stone in the biliary duct. The duct is dilated but no stone is definitely seen on CAT scan. She also appears to have a right renal mass, 1.5 cm, suspicious for renal cell carcinoma. These findings were discussed thoroughly with the patient and I spoke to the PA for the hospitalist service at [facility] and the patient is excepted there under Dr. Ferreira. The patient is agreeable and stable for transfer. Differential Diagnosis Differential diagnosis: Likely abdominal pain, calculus of kidney, constipation, diverticulitis, gastroenteritis, pancreatitis and small bowel obstruction Lab Data Attestation: I reviewed the patient's lab results. Labs: Lab Results 11/30/24 11/30/24 Range/Units 12:30 12:43 WBC 4.4 (4.0-11.0) 10^3/uL RBC 4.86 (4.20-5.40) 10^6/uL Hgb 15.2 (12.0-16.0) g/dL Hct 44.2 (36.0-48.0) % MCV 90.9 (81.0-99.0) fL MCH 31.3 (26.7-34.0) pg MCHC 34.4 (29.9-35.2) g/dL RDW 11.6 (11.0-15.0) % Plt Count 343 (150-450) 10^3/uL MPV 9.0 L (9.5-13.5) fL Neut % (Auto) 57.2 (43.0-75.0) % Lymph % (Auto) 34.6 (20.5-60.0) % [place] % (Auto) 5.7 (1.7-12.0) % Eos % (Auto) 1.4 (0.9-7.0) % Baso % (Auto) 1.1 (0.2-2.0) % Neut # (Auto) 2.5 (1.4-6.5) 10^3/uL Lymph # (Auto) 1.5 (1.2-3.8) 10^3/uL [place] # (Auto) 0.3 (0.3-0.8) 10^3/uL Eos # (Auto) 0.1 (0.0-0.7) 10^3/uL Baso # (Auto) 0.1 (0.0-0.1) 10^3/uL Abs Immat Gran (auto) 0.00 (0.00-0.03) 10^3/uL Imm/Tot Granulo (auto) 0.0 (0.0-0.5) % Sodium 139 (136-145) mmol/L Potassium 3.5 (3.5-5.1) mmol/L Chloride 102 (98-107) mmol/L Carbon Dioxide 29.1 (21.0-32.0) mmol/L Anion Gap 11.4 BUN 14.0 (7.0-18.0) mg/dL Creatinine 0.98 (0.55-1.02) mg/dL Est GFR ( Amer) >60 (>=60 mL/min/1.73m^2) Est GFR (Non-Af Amer) 59 L (>=60 mL/min/1.73m^2) BUN/Creatinine Ratio 14.3 Glucose 106 (74-106) mg/dL Calcium 9.4 (8.5-10.1) mg/dL Total Bilirubin 0.5 (0.2-1.0) mg/dL Direct Bilirubin 0.1 (0.0-0.2) mg/dL AST 24 (15-37) U/L ALT 25 (14-59) U/L Alkaline Phosphatase 138 H (46-116) U/L Total Protein 7.8 (6.4-8.2) g/dL Albumin 3.9 (3.4-5.0) g/dL Globulin 3.9 g/dL Albumin/Globulin Ratio 1.0 Amylase 106 (25-115) U/L Lipase 215.0 H (16.0-77.0) U/L Urine Color Lt. yellow (YELLOW) Urine Clarity Sl cloudy (CLEAR) Urine pH 8.0 (5.0-9.0) Ur Specific [place] 1.015 (1.005-1.025) Urine Protein Negative (NEG/TRACE) mg/dL Urine Glucose (UA) Negative (NEGATIVE) mg/dL Urine Ketones Negative (NEGATIVE) mg/dL Urine Occult Blood Negative (NEGATIVE) Urine Nitrite Negative (NEGATIVE) Urine Bilirubin Negative (NEGATIVE) Urine Urobilinogen 0.2 (0.2-1.0) EU/dL Ur Leukocyte Esterase Negative (NEGATIVE) Urine RBC 0-2 (0-2) #/HPF Urine WBC 0-2 A (NONE SEEN) #/HPF Ur Squamous Epith Cells Few A (NONE/RARE) #/LPF Urine Crystals Seen A (None Seen) #/HPF Amorphous Sediment Many Urine Bacteria None seen (NONE SEEN) #/HPF Urine Casts Seen A (NONE SEEN) #/LPF Fine Granular Casts Rare Urine Mucus Small A (NONE SEEN) Imaging Data CT scan - abdomen: Radiologist's impression: ITS Impressions Abdomen/Pelvis CT 11/30/24 12:35 IMPRESSION: 1. Cholelithiasis and suspected gallbladder sludge. 2. Mild intra and extrahepatic biliary ductal dilation. Consider MRCP to assess for choledocholithiasis. 3. Right renal enhancing 1.5 cm mass concerning for renal cell carcinoma. Electronically authenticated by: DIANE SIMMS Date: 11/30/2024 14:03 ECG Data Attestation: I personally reviewed and interpreted this ECG as follows: (EKG on my interpretation shows normal sinus rhythm with a rate of 85) Discharge Plan Discharge Chief Complaint: Abdominal Pain Clinical Impression: Biliary calculus, Pancreatitis, Mass of right kidney Patient Disposition: [facility] Time of Disposition Decision: 15:07 Discharge location: [facility] Condition: Fair Mode of Transportation: EMS
[2024-11-30 12:48] LABS: Basophils Absolute Auto 0.1 10^3/uL (0.0-0.1); Basophils Percent Auto 1.1 % (0.2-2.0); Eosinophils Absolute Auto 0.1 10^3/uL (0.0-0.7); Eosinophils Percent Auto 1.4 % (0.9-7.0); Hematocrit 44.2 % (36.0-48.0); Hemoglobin 15.2 g/dL (12.0-16.0); Lymphocytes Absolute Auto 1.5 10^3/uL (1.2-3.8); Lymphocytes Percent Auto 34.6 % (20.5-60.0); Mean Corpuscular HGB Conc 34.4 g/dL (29.9-35.2); Mean Corpuscular Hemoglobin 31.3 pg (26.7-34.0); Mean Corpuscular Volume 90.9 fL (81.0-99.0); Monocytes Absolute Auto 0.3 10^3/uL (0.3-0.8); Monocytes Percent Auto 5.7 % (1.7-12.0); Neutrophils Absolute Auto 2.5 10^3/uL (1.4-6.5); Neutrophils Percent Auto 57.2 % (43.0-75.0); Platelet Count 343 10^3/uL (150-450); Red Blood Count 4.86 10^6/uL (4.20-5.40); Red Cell Distribution Width 11.6 % (11.0-15.0); White Blood Count 4.4 10^3/uL (4.0-11.0)
[2024-11-30] MEDS: ONDANSETRON PF 4 MG/2 ML VIAL IV (12:52)
[2024-11-30] MEDS: MORPHINE SULFATE 4 MG/ML VIAL IV ×2 (12:52→14:09)
[2024-11-30] MEDS: 0.9 % SODIUM CHLORIDE 1,000 ML 125 ML IV (12:52)
[2024-11-30 13:06] LABS: Bilirubin Urine NEGATIVE (NEGATIVE); Blood Urine NEGATIVE (NEGATIVE); Clarity Urine SL CLOUDY (CLEAR); Color Urine LT. YELLOW (YELLOW); Glucose Urine UA NEGATIVE (NEGATIVE); Ketones Urine NEGATIVE (NEGATIVE); Leukocyte Esterase Urine NEGATIVE (NEGATIVE); Nitrite Urine NEGATIVE (NEGATIVE); Protein Urine NEGATIVE (NEG/TRACE); Specific Gravity Urine 1.015 (1.005-1.025); Urobilinogen Urine 0.2 EU/dL (0.2-1.0)
[2024-11-30 13:14] LABS: Bacteria Urine NONE SEEN #/HPF (NONE SEEN); Crystals Seen? Seen #/HPF (None Seen); Mucus Urine SMALL (NONE SEEN); RBC Urine 0-2 #/HPF (0-2); Squamous Epithelial Cell Urine FEW #/LPF (NONE/RARE); WBC Urine 0-2 #/HPF (NONE SEEN)
[2024-11-30 13:15] LABS: Amorphous Sediment Urine MANY; Cast Seen? SEEN #/LPF (NONE SEEN); Fine Granular Casts Urine RARE
[2024-11-30 13:18] LABS: Alanine Aminotransferase 25 U/L (14-59); Albumin Level 3.9 g/dL (3.4-5.0); Alkaline Phosphatase 138 U/L (46-116); Amylase 106 U/L (25-115); Anion Gap 11.4; Aspartate Amino Transferase 24 U/L (15-37); BUN Creatinine Ratio 14.3; Bilirubin Direct 0.1 mg/dL (0.0-0.2); Bilirubin Total 0.5 mg/dL (0.2-1.0); Calcium 9.4 mg/dL (8.5-10.1); Carbon Dioxide 29.1 mmol/L (21.0-32.0); Chloride 102 mmol/L (98-107); Estimated GFR (African America >60 (>=60 mL/min/1.73m^2); Estimated GFR (Non-African Ame 59 (>=60 mL/min/1.73m^2); Globulin 3.9 g/dL; Glucose 106 mg/dL (74-106); Potassium 3.5 mmol/L (3.5-5.1); Sodium 139 mmol/L (136-145); Total Protein 7.8 g/dL (6.4-8.2)
[2024-11-30 15:44] VITALS: BP 124/92; PULSE 81; O2SAT 96
[2024-11-30 18:11] VITALS: BP 141/93; PULSE 75; O2SAT 100
[2024-11-30] MEDS: HYDROMORPHONE HCL 1 MG/ML CARTRIDGE IV (18:49)
== END 2024-11-30 19:00 | disposition short-term general hospital (02) ==
PROVIDERS: Emergency Provider Emergency Medicine; PCP Internal Medicine
DX: K80.20 Calculus of gallbladder without cholecystitis without obstruction (principal); K85.90 Acute pancreatitis without necrosis or infection, unspecified; N28.9 Disorder of kidney and ureter, unspecified
CPT/HCPCS: 36415; 74177; 80048; 80076; 81001; 82150; 83690; 85025; 93005; 96374; 96375; 96376; 99285; J1171; J2270; J2405; Q9967

== ENCOUNTER 2025-04-14 15:35 | Outpatient (OUT) | payer BC, SELFPAY ==
--- OUTSIDE RECORDS SUMMARY | 2024-12-02 11:30 | XMS_ITS ---
Author Organization [facility] [place] Address [address] [place] [address] Care Team Providers Care Custodial Manager Name Role Phone Grady Arriaga DO Primary Care Provider Geln Bermudez [phone] REASON FOR VISIT sa-nereyda bee Encounters Encounter Location Date Provider Diagnosis [place] [address] [place] [address] 12/02/2024 Glen Arreola Plan Of Treatment No Information Progress Notes * Micaela ZAMORAby LDOB:1970 (54 yo F)Acc No.[id number]:12/02/2024 Patient: Jennifer BASS Provider: Nury Arreola MD :1970 A ge:54 Y S ex:Female Date:12/02/2024 Address:[address] [facility] Pcp:Grady Arriaga DO Check Out:11:24 AM EST * * Sign off status: Completed Visit Status: C HK (Check Out) true * Provider: Nury Arreola MD Date: 12/02/2024 Generated for Pepe ng/Faalvinog/eTransmitting on: 04/14/2025 03:37 PM EDT
--- OUTSIDE RECORDS SUMMARY | 2024-12-23 07:45 | XMS_ITS ---
Author Organization [facility] Address [address] [place] [address] Care Team Providers Care Acetylene Torch Operator Name Role Phone LIANA DAS DO Primary Care Provider Maylin dhaliwal [facility] Hospital McdowellTracy mohamud Unavailable REASON FOR VISIT lumbar radiculopathy Encounters Encounter Location Date Provider Diagnosis [facility] [address] [place] [address] [facility] M54.16 Assessments Encounter Date Diagnosis (ICD Code) Assessment Notes Treatment Notes Treatment Clinical Notes Section Notes 12/23/2024 Lumbar radiculopathy (ICD-10 - M54.16) Plan Of Treatment No Information Progress Notes * DIAZCASEY LDOB:1970 (54 yo F)Acc No.[id number]:12/23/2024 MRI Patient: CASEY BASS Provider: Carmen Mcgraw MD :1970 A ge:54 Y S ex:Female Date:12/23/2024 Address:[address] [place], [place] [id number] Pcp:LIANA DAS DO Subjective: * Chief Complaints: * 1 . Lumbar radiculopathy. * Medical History: Objective: * Vitals: Assessment: * Assessment: 1. L umbar radiculopathy - M54.16 (Primary) Plan: * Treatment: * Procedure Codes: 7 2148 MRI Lumbar Spine w/o Dye Forms: * Images: * Electronic signature of Matthew Schmitz MD on 04/14/2025 at 03:37 PM EDT Sign off status: Pending * Provider: Carmen Mcgraw MD Date: 0 12/23/2024 Generated for Pepe kimbrough/Lilly/Amada on: 0 04/14/2025 03:37 PM EDT
--- OUTSIDE RECORDS SUMMARY | 2024-12-30 06:30 | XMS_ITS ---
Author Organization [facility] Address [address] [place] [address] Care Team Providers Care Crew Boat Operator Name Role Phone LIANA DAS DO Primary Care Provider Unavaila Francis Spencer Unavailable Beka Jones Unavailable [phone] REASON FOR VISIT L4-5 disc Bulge- Referral Dr Blanco Medications Medication SIG (Take, Route, Frequency, Duration) Notes Start Date End Date Status hydrochlorothiazide-losa rtan 12.5 mg-50 mg 1 tab(s) orally once a day Active diazePAM 5 mg 1 tab(s) orally 1 ho ur prior to test and 2nd tablet if needed 30 before test orally 12/16/2024 Not-Taking Percocet 325 mg-5 mg 1 tab(s) orally every 8 hours As needed Active metoprolol 25 mg 1 tab(s) orally once a day Active Encounters Encounter Location Date Provider Diagnosis [facility] [facility] [address] [place] [address] 12/30/2024 Beka Jones Plan Of Treatment No Information Progress Notes * CASEY DIAZ LDOB:1970 (54 yo F)Acc No.[id number]:12/30/2024 Patient: Rod GARCÍA CASEY Iverson Provider: Mikael Jones MD :1970 A ge:54 Y S ex:Female Date:12/30/2024 Address:[address] [place], [place] [id number] Pcp:LIANA E BALL, DO Subjective: * Chief Complaints: * 1 [...] Electronic signature of Beka Jones MD on 04/14/2025 at 03:37 PM EDT Sign off status: Pending * Provider: Mikael Jones MD Date: 12/30/2024 Generated for Pepe kimbrough/Lilly/Amada on: 04/14/2025 03:37 PM EDT
--- OUTSIDE RECORDS SUMMARY | 2025-04-14 15:37 | XMS_ITS | Patient Health Record ---
Author Organization [facility] [place] Address [address] [place] [address] Care Team Providers Care Slurry Tank Tender Name Role Phone Grady Arriaga DO Primary Care Provider Maylin ArreolaGlen Unavailable [phone] Allergies No Known Allergies Results Component Value Reference Range Notes Surgical Pathology ([facility]) Reviewed date:12/15/2024 12:18:34 PM Interpretation: Performing Lab: Notes/Report: Path Number: [id number] -- Diagnosis -- Gallbladder: -Cholelithiasis and chronic inflammation. Suresh Smiley M.D. Electronically Signed Out rdd/12/04/2024 Clinical Information Pre-Op Diagnosis: GALLSTONES Operative Findings: GALLBLADDER AND CONTENTS Operation Performed: CHOLECYSTECTOMY LAPAROSCOPIC ROBOTIC XI se Source of Specimen A: GALLBLADDER AND CONTENTS Gross Description JENNIFER ZAMORA GALLBLADDER AND CONTENTS Received in formalin is an 8.5 x 4.8 x 0.6 cm previously opened gallbladder with a 1.0 cm long x 0.5 cm in diameter cystic duct. The serosa is cadena-ribeiro, and the liver bed is coarse ribeiro-brown. The wall is 0.1 cm in thickness, and the mucosa is ribeiro-brown and slightly velvety. Within the specimen container are a few green-yellow calculi, 7.0 x 4.0 x 2.8 cm in aggregate. Cystic duct margin and sections of gallbladder mucosa 1cs. tm Latonia Serrano/se:12/03/2024 Microscopic Description Microscopic examination performed. Processing Lab: [address] [address] Interpretation Performed at [address], [place] [address] SURGICAL PATHOLOGY CONSULTATION Patient Name: JENNIFER ZAMORA [facility] Rec: [id number] [facility] ANATOMIC PATHOLOGY [facility] [place], [place] [address] MRI ABDOMEN W WO CONTRAST MR CP Reviewed date:12/15/2024 12:02:13 PM Interpretation: Performing Lab: Notes/Report: ADDENDUM: Performed at: [address] [id number] Performed at: Reason For Referral No Information Medications Medication SIG (Take, Route, Fr equency, Duration) Notes Start Date End Date Status Aspirin 81 Active Losartan Potassium-HCTZ Active Metoprolol Succinate Active Medrol Active Potassium Chloride A ctive Pantoprazole Sodium Active Qsymia Active Social History Tobacco Use: Social History Observation Description Date Details (start date - stop date) Never Smoker NA - NA Tobacco Use/Smoking Question Answer Notes Patient is a nonsmoker Problems Problem Type SNOMED Code ICD Code Onset Dates Problem Status W/U Status Risk Notes Problem Cholelithiasis without obstruction (06743493) Asymptomatic cholelithiasis (K80.20) Active confirmed Vital Signs Height 67 in 12/15/2024 Weight 160 lbs 12/15/2024 BMI 25.06 kg/m2 12/15/2024 Encounters Encounter Location Date Provider Diagnosis [place] [address] [place] [address] 12/02/2024 Glen Arreola General Surgery Maya Arreola [address] [place] [address] 12/15/2024 Glen Arreola Encounter for follow-up examination after completed treatment for conditions other than malignant neoplasm Z09 Assessments Encounter Date Diagnosis (ICD Code) Assessment Notes Treatment Notes Treatment Clinical Notes Section Notes 12/15/2024 Encounter for follow-up examination after completed treatment for conditions other than malignant neoplasm (ICD-10 - Z09) Plan Of Treatment No Information Insurance Providers Payer Name Payer Address Payer Phone Subscriber Number Group Number Insured Name Patient Relationship to Insured Coverage Start Date Coverage End Date BCBS OUT OF STATE [address] [place] [address] [phone] [id number] Enrique Zamora Spouse - patient is the spouse of the insured 2024 Medical (General) History Medical History History ICD Code Hypertension I10 ADHD F90.9 IFG (impaired fasting glucose) R73.01 Hypokalemia E87.6 Obesity E66.9 NSVT (nonsustained ventricular tachycard ia) I47.29 Gastroesophageal reflux disease K21.9 Palpitation R00.2 Hormonal disorder E34.9 Post menopausal syndrome N95.1 Eczema L30.9 GREG (generalized anxiety disorder) F41.1 Surgical History Surgery Date(Month/Year) section hysterectomy appendectomy 2010
--- OUTSIDE RECORDS SUMMARY | 2025-04-14 15:37 | XMS_ITS | Clinical Summary ---
Author Organization [facility] Address [address] [place], [place] [id number] Care Team Providers Care Handle Sander Operator Name Role Phone Unavailable Primary Care Provider Unavailabl e Social History Tobacco Use Types Packs/Day Years Used Date Smoking Tobacco: Never Assessed Comments Unknown Sex and Gender Information Value Date Recorded Sex Assigned at Not on file Legal Sex Female 9:43 AM EST Gender Identity Not on file Sexual Orientation Not on file Plan of Treatment Health Maintenance Due Date Last Done Comments Anxiety Screening 1987 Depression Screening 1987 HIV Screening 1987 Hepatitis C Screening 1987 DTaP,Tdap,Td Vaccine (1 - Tdap) 1988 Hepatitis B Vaccine (1 of 3 - 19+ 3-dose series) 1988 Cervical Cancer Screening 01/24/20052001, 11/15/2000, 11/15/[address] Colonography 2014 Cologuard (FIT-DNA) 2014 Colonoscopy 2014 Colorectal Cancer Screening 2014 Diabetes Screening 2014 Fecal Occult Blood 2014 Lipid Screening 2014 Sigmoidoscopy 2014 Pneumococcal Vaccine: 50+ (1 of 1 - PCV) 2019 Shingrix Vaccine (1 of 2) 2019 Covid-19 Vaccine ( - 2023- season) 2024 Influenza Vaccine (Season Ended) 2025 Procedures Procedure Name Priority Date/Time Associated Diagnosis Comments PAP FLUID CERVICAL SCREENING 01/24/2002 from Last 3 Months or Most Recently Relevant to Health Maintenance Results * PAP FLUID CERVICAL SCREENING (01/24/2002) [facility] Physician: Colleen Khanna ([id number]) SPECIMEN #: [id number] [facility] FINAL DIAGNOSIS: [facility] FLUID, CERVICAL, SCREENING [facility] SATISFACTORY FOR INTERPRETATION. [facility] SLIGHT DYSPLASIA (EMIGDIO-1, Low Grade LAURA). [facility] ACUTE INFLAMMATION. [facility] Mable Watson M.D./OCTAVIO [facility] Report Electronically Signed Out [facility] SPECIMEN(S) SUBMITTED: [facility] FLUID, CERVICAL, SCREENING (PAP Smear) [facility] Smears Received: Number of Thin Preps: 1 [facility] CLINICAL DATA: [facility] {None Entered} [facility] Date of last Menstrual Period: 12/27/01 [facility] GROSS DESCRIPTION: [facility] 20 CC PRESERVCYT SOLUTION [facility] Financial #: [facility] Managed Care ID #: Date of Report: 02/02/02 [facility] :1970 (Age: 31) F Date of Procedure: 01/24/02 [facility] Date of Receipt: 01/24/02 [facility] Physician: Colleen Khanna ([id number]) Location: A81 [facility] Charlie/Zayra Alonso ([id number]) [facility] 01/24/2002 01/24/2002 11: 39 PM EDT us Colleen Khanna MD CYTOLOGY Final Result [facility] [address] [place] [address] from Last 3 Months or Most Recently Relevant to Health Maintenance
--- OUTSIDE RECORDS SUMMARY | 2025-04-14 15:37 | XMS_ITS | Clinical Summary ---
Author Organization [facility] Address [address] [place] [address] Care Team Providers Care Stem Roller Operator Name Role Phone Unavailable Primary Care Provider Unavailabl e Allergies No known active allergies Medications aspirin 81 MG EC tablet Daily 01/08/2024 Active losartan-hydroCH LOROthiazide (Hyzaar) 50-12.5 MG tablet Take 1 tablet by mouth Daily Active metoprolol succinate XL (Toprol-XL) 25 MG 24 hr tablet Take 25 mg by mouth Daily Active Social History Tobacco Use Types Packs/Day Years Used Date Smoking Tobacco: Never Assessed Comments No Sex and Gender Information Value Date Recorded Sex Assigned at Not on file Legal Sex Female 6:56 PM EDT Gender Identity Not on file Sexual Orientation Not on file Last Filed Vital Signs Vital Sign Reading Time Taken Comments Blood Pressure 124/72 05/21/2024 3:48 PM EDT Pulse - - Temperature - - Respiratory Rate - - Oxygen Saturation - - Inhaled Oxygen Concentration - - Weight 69.9 kg (154 lb) 05/21/2024 3:48 PM EDT Height 170.2 cm (5' 7 ) 10/11/2022 12:00 PM EST Body Mass Index 24.12 10/11/2022 12:00 PM EST Plan of Treatment Health Maintenance Due Date Last Done Comments CT Colonography 1969 Colonoscopy 1969 FIT 1969 FOBT 1969 Sigmoidoscopy 1969 Mammogram 11/30/2023 11/30/2022 Colorectal Cancer Screening 09/06/2024 FIT-DNA 09/06/2024 09/06/2021 Influenza Vaccine (Season Ended) 2025 11/21/19 17 Cervical Cancer Screening 01/09/2027 HPV/Cotest 01/09/2027 Pap Smear 01/09/2027 01/09/2022 Procedures Procedure Name Priority Date/Time Associated Diagnosis Comments BI MAMMOGRAM SCREENING TOMOSYNTHESIS BILATERAL Routine 11/30/2022 PAP SMEAR Routine 01/09/2022 12:00 AM EDT from Last 3 Months or Most Recently Relevant to Health Maintenance Results * Bilateral screening mammogram with tomosynthesis (11/30/2022) Anatomical Region Laterality Modality Breast Bilateral Mammography Narrative 11/30/2022 12:00 AM EST PERFORMED AT [facility] LOCATION:[address] Patient: EMILY Garcia Exam Date: 11/30/2022 : 1970 Gender:F Ordering : DR MADHURI MARTINEZ . Admission #: [id number] Family : Order #: [id number] CLICK HERE TO VIEW EXAM RADIOLOGY REPORT PROCEDURE: MAMMOGRAM SCREENING 3D BILATERAL CAD COMPARISON: MG MAMM ELOY SCRN W CAD DIG 2015. MG MAMM SCREEN 3D ELOY CAD 09/21/2021. INDICATIONS: Screening mammography Calculator Name NCI Breast Cancer Risk Assessment Tool 5 Year Breast Cancer Risk Not Reported. Lifetime Breast Cancer Risk Not Reported. Personal Breast Cancer No Personal Ovarian Cancer No Treatments None Family Cancers None LOCATION: [facility] BREAST COMPOSITION: Scattered areas fibroglandular density. FINDINGS: [...] PALPABLE LUMP SHOULD BE BIOPSIED. Dictated by: Fausto Gabriel MD on 11/30/2022 at 13:49 Approved by: Fausto Gabriel MD on 11/30/2022 at 13:57 Procedure Note CONVERSION, GENERIC - 04/20/2023 PERFORMED AT [facility] LOCATION:[address] Patient: EMILY Garcia Exam Date: 11/30/2022 : 1970 Gender:F Ordering : DR MADHURI MARTINEZ . Admission #: [id number] Family : Order #: [id number] CLICK HERE TO VIEW EXAM RADIOLOGY REPORT PROCEDURE: MAMMOGRAM SCREENING 3D BILATERAL CAD COMPARISON: MG MAMM ELOY SCRN W CAD DIG 2015. MG MAMM SCREEN 3D ELOY CAD 09/21/2021. INDICATIONS: Screening mammography Calculator Name NCI Breast Cancer Risk Assessment Tool 5 Year Breast Cancer Risk Not Reported. Lifetime Breast Cancer Risk Not Reported. Personal Breast Cancer No Personal Ovarian Cancer No Treatments None Family Cancers None LOCATION: [facility] BREAST COMPOSITION: Scattered areas fibroglandular density. FINDINGS: DIAGNOSTIC CATEGORY 1--NEGATIVE. NO CHANGE FROM COMPARISON ASSESSMENT. Scattered benign-appearing nodules are present. Scatteredbenign-appearing calcifications are present. Scattered benign-appearing lymph nodes are present. RIGHT BREAST: No significant suspicious finding. LEFT BREAST: No significant suspicious finding. RECOMMENDATIONS: ROUTINE MAMMOGRAM AND CLINICAL EVALUATION IN 12 MONTHS. PLEASE NOTE: A NORMAL MAMMOGRAM DOES NOT EXCLUDE THE POSSIBILITY OFBREAST CANCER. A CLINICALLY SUSPICIOUS PALPABLE LUMP SHOULD BE BIOPSIED. Dictated by: Fausto Gabriel MD on 11/30/2022 at 13:49 Approved by: Fausto Gabriel MD on 11/30/2022 at 13:57 Madhuri Martinez DO IMG BI PROCEDURES Final Result * Pap Smear (01/09/2022 12:00 AM EDT) Swab Cervical swab / Unknown Madhuri Martinez DO LAB CYTOLOGY ORDERABLES Final Re sult EXTERNAL LAB from Last 3 Months or Most Recently Relevant to Health Maintenance Insurance BCBS
--- OUTSIDE RECORDS SUMMARY | 2025-04-14 15:37 | XMS_ITS | Encounter Summary ---
Author Organization [facility] Address [address] [place] [address] Phone Care Team Providers Care Safety Officer Name Role Phone Grady Arriaga DO Primary Care Provider [phone] Encounter Details Date Type Department Care Team (Late st Contact Info) Description 01/15/2021 Orders Only [facility] [address] [place] [address] Conversion, Onbase Social History Tobacco Use Types Packs/Day Years Used Date Smoking Tobacco: Never Assessed Comments Unknown Sex and Gender Information Value Date Recorded Sex Assigned at Not on file Legal Sex Female 6:36 PM EST Gender Identity Not on file Sexual Orientation Not on file documented as of this encounter Plan of Treatment Scheduled Orders Name Type Priority Associated Diagnoses Orde r Schedule OUTSIDE LAB SCAN Lab Ordered: 01/15/2021 documented as of this encounter Visit Diagnoses Not on filedocumented in this encounter Care Teams Safety Officer Relationship Specialty Start Date End Date Grady Arriaga DO PCP - General 04/05/21 documented as of this encounter
--- OUTSIDE RECORDS SUMMARY | 2025-04-14 15:37 | XMS_ITS | Patient Health Record ---
Author Organization [facility] Address [address] [place] [address] Care Team Providers Care Truck Hop Name Role Phone Gela Ortiz Primary Care Provider UnavailRuth Antony Unavailable JAZZY [id number] Nila Unavailable Allergies No Known Allergies Results Component Value Reference Range Notes CHLAMYDIA AND GC, RNA, TMA U ROGENITAL Reviewed date:05/22/2024 12:01:06 PM Interpretation:Negative Performing Lab:[facility] [address], [address] [place], [place] [id number] Felice Lovell MD Notes/Report: 0 Received Date: CHLAMYDIA TRACHOMATIS RNA, TMA, UROGENITAL NOT DETECTED NOT DETECTED NEISSERIA GONORRHOEAE RNA, TMA, UROGENITAL NOT DETECTED NOT DETECTED COMMENT The analytical performance characteristics of this assay, when used to test SurePath(TM) specimens have been determined by [facility]. The modifications have been validated pursuant to the CLIA regulations and is used for clinical purposes. For additional information, please refer to [email or web address].BleepBleeps/faq/XGN808 (This link is being provided for information/ educational purposes only.) not been cleared or approved by the FDA. This assay has Trichomonas vaginalis RNA, Q ualitative, TMA Reviewed date:05/22/2024 12:03:43 PM Interpretation:Negative Performing Lab:[facility] [address], [address] [place], [place] [id number] Felice Lovell MD Notes/Report: Received Date: [id number] 0 TRICHOMONAS VAGINALIS RNA, QL TMA NOT DETECTED NOT DETECTED For additional information, please refer to http://FittingRoom.[employer]/ faq/Trichomonastma (This link is being provided for informational/ educational purposes only.) Reason For Referral No Information Medications Medication SIG (Take, Route, Frequency, Duration) Notes Start Date End Date Status Losartan Potassium *Please revie w and pick correct strength-formulati on from Medispan options. If intended option is not shown, discontinue and re-order from Quick Search* Active CeleXA *Please review a nd pick correct strength-formulati on from Medispan options. If intended option is not shown, discontinue and re-order from Quick Search* Not-Taking LOSARTAN Active Social History Tobacco Use: Social History Observation Description Date Details (start date - stop date) Never Smoker NA - NA Tobacco Control (Standard) Question Answer Notes Tobacco use: Nonsmoker Problems Problem Type SNOMED Code ICD Code Onset Dates Problem Status W/U Status Risk Notes Problem [id number] Elevated blood pressure reading in office with diagnosis of hypertension (I10) Active confirmed Vital Signs Temperature 97.7 degrees Fahrenheit 05/20/2024 Respiratory Rate 16 /min 05/20/2024 Oximetry 100 05/20/2024 Blood pressure diastolic 80 mm Hg 05/20/2024 Height 5'7 in 05/20/2024 Blood pressure systolic 118 mm Hg 05/20/2024 Weight 152 lbs 05/20/2024 BMI 23.8 kg/m2 05/20/2024 Encounters Encounter Location Date Provider Diagnosis [address] [address] [place] [address] [place] [address] 05/20/2024 Nila Wadsworth Screening examination for STI Z11.3 [address] [facility] [address] [place] [address] 05/22/2024 Ruth Jimenez Assessments Encounter Date Diagnosis (ICD Code) Assessment Notes Treatment Notes Treatment Clinical Notes Section Notes 05/20/2024 Screening examination for STI (ICD-10 - Z11.3) CARD DECORATOR advised patient that [facility] will notify of STI results once available. [facility] will call with results and send prescription as indicated (and if not treated at the time of the visit). Please follow up with PCP or AIRLINE CAPTAIN if any worsening symptoms or if no resolution of symptoms. Please take all medication through to completion to reduce the risk of antibiotic resistance. Please follow up at UC/ED for any emergent signs or symptoms. Patient agreeable and verbalized understanding. All questions answered. Patient has been explained that specimen will be sent to outside lab and agrees to outside third republican bill from laboratory. 05/20/2024 Other Visit summary given to and discussed with patient and/or parent who verbalizes understanding and agreement with plan of care Thank you for your visit. Please look for the satisfaction survey that you will receive via email. We look forward to receiving your feedback regarding your experience at [facility]. Plan Of Treatment No Information Insurance Providers Payer Name Payer Address Payer Phone Subscriber Number Group Number Insured Name Patient Relationship to Insured Coverage Start Date Coverage End Date [facility] [address] [place] [id number] 1 Jennifer Zamora Self - patient is the insured Medications Administered Medication Instructions Date of Administration Dosage Notes Kenalog 40 (40mg Admin) 11/13/2019 1 mL Medical (General) History Medical History History ICD Code HTN Depression Surgical History Surgery Date(Month/Year) X 2 total bladder repair appendectomy hysterectomy Hospitalization History Reason Date(Month/Year) surgeries childbirth
--- OUTSIDE RECORDS SUMMARY | 2025-04-14 15:37 | XMS_ITS | Clinical Summary ---
Author Organization [facility] Address [address] [place] [address] Care Team Providers Care Engine Manager Name Role Phone Unavailable Primary Care Provider Unavailabl e Social History Tobacco Use Types Packs/Day Years Used Date Smoking Tobacco: Never Assessed [place] Safety & Environment Answer Date Rec orded Fear of Current or Ex-Partner Not on file Emotionally Abused Not on file 12/06/2023 Physically Abused Not on file 12/06/2023 Sexually Abused Not on file 12/06/2023 Physically or Sexually Abused Not on file Comments Unknown Sex and Gender Information Value Date Recorded Sex Assigned at Not on file Legal Sex Female 9:42 PM EDT Gender Identity Not on file Sexual Orientation Not on file Plan of Treatment Not on file
--- OUTSIDE RECORDS SUMMARY | 2025-04-14 15:37 | XMS_ITS | Patient Health Record ---
Author Organization [facility] Address [address] [place] [address] Care Team Providers Care Dye Blender Name Role Phone LIANA DAS DO Primary Care Provider Unavaila ble Tracy Schmitzreanna Unavailable Beka Jones Unavailable [phone] Allergies No Known Allergies Reason For Referral Reason NO PRIOR AUTH REQURI ED ANTHEM....MRI lumbar scheduled 12/23/24 Diagnosis 1 Degeneration of inte rvertebral disc of lumbar region, unspecified whether pain present (M51.369) Referral Organization [facility] Referring Provider First Name Francis Referring Provider Last Name Keila forte Referring Provider Speciality Orthopedic Surgery Referred Organization [facility] Referred Address [address] [place] [phone], Procedure 1 MRI Lumbar Spine w/o Dye ([id number]) General Notes Deal, Sherley 12/17/19 02:21:45 PM >, Leilani Franco 12/16/2024 02:33:22 PM > wtg on note, Leilani Franco 12/18/2024 10:23:16 AM > PER ELIZABETH Ty NO PRIOR AUTH REQUIRED REF #[id number], PER [employer] PT HAS ACTIVE COVERAGE POLICY START DATE IS 11/15/2024 WITH NO END DATE. Referral Priority Routine Reason Dr. Jones L5-S1 LES Diagnosis 1 L4-L5 disc bulge (M5 1.369) Referral Organization [facility] Referring Provider First Name Davidisaacreanna Referring Provider Last Name Keila forte Referring Provider Speciality Orthopedic Surgery Referred Organization [facility] Referred Address [address] [place] [phone], General Notes Chandni Mathew 12/13 01:02:49 PM >, Darleen Quintana 12/24/2024 08:54:40 AM >3.18.25 Referral Priority Routine Medications Medication SIG (Take, Route, Frequency, Duration) [...] 1 tab(s) orally once a day Active Losartan Potassium HCTZ Active metoprolol 25 mg 1 tab(s) Act glendy Social History Tobacco Use: Social History Observation Description Date Details (start date - stop date) Never Smoker NA - NA AUDIT-C (Standard) Question Answer Notes Did you have a drink containing alcohol in the p ast year? No Points 0 Interpretation Negative Tobacco Control (Standard) Question Answer Notes Tobacco use: Nonsmoker Problems Problem Type SNOMED Code ICD Code Onset Dates Problem Status W/U Status Risk Notes Problem 881696296 Lumbar radiculopathy (M54.16) Active confirmed Problem 984574779 Lumbar facet arthropathy (M47.816) Active confirmed Problem 66900607 Degeneration of intervertebral disc of lumbar region, unspecified whether pain present (M51.369) Active confirmed Vital Signs Height 5ft 7in in 12/23/2024 Weight 159 lbs 12/23/2024 BMI 24.9 12/23/2024 Encounters Encounter Location Date Provider Diagnosis [facility] [address] [place] [phone] 12/23/2024 Tracy Deonna-Inisaac Lumbar radiculopathy M54.16 [facility] [address] [place] [phone] 12/16/2024 [facility] Deonna-Incade Degeneration of intervertebral disc of lumbar region, unspecified whether pain present M51.369 ; Lumbar facet arthropathy M47.816 and Lumbar radiculopathy M54.16 [facility] [address] [place] [phone] 12/23/2024 [facility] Ying-Incade L4-L5 disc bulge M51.369 and Lumbar radiculopathy M54.16 Assessments Encounter Date Diagnosis (ICD Code) Assessment Notes Treatment Notes Treatment Clinical Notes Section Notes 12/16/2024 Lumbar facet arthropathy (ICD-10 - M47.816) 1. DDD L4-S1 2. FA L4-S1 3. Lumbar radiculopathy The patient like to obtain MRI of the lumbar spine to further evaluate her condition as she has now developed objective weakness in the LLE with 4/5 left foot dorsiflexion concerning for progressive neurological impairment that will likely require invasive treatment to improve her condition and prevent permanent neurological injury. Will see the patient back once MRI has been obtained to discuss results. we will prescribe the patient Valium to take to tolerate the MRI 12/16/2024 Degeneration of intervertebral disc of lumbar region, unspecified whether pain present (ICD-10 - M51.369) 1. DDD L4-S1 2. FA L4-S1 3. Lumbar radiculopathy The patient like to obtain MRI of the lumbar spine to further evaluate her condition as she has now developed objective weakness in the LLE with 4/5 left foot dorsiflexion concerning for progressive neurological impairment that will likely require invasive treatment to improve her condition and prevent permanent neurological injury. Will see the patient back once MRI has been obtained to discuss results. we will prescribe the patient Valium to take to tolerate the MRI 12/23/2024 Lumbar radiculopathy (ICD-10 - M54.16) 12/23/2024 Lumbar radiculopathy (ICD-10 - M54.16) 1. L5-S1 disc hernaition 2. lumbar radiculopathy discussed MRI results with the patient. The patient would like to leave surgery as a last resort option, thus we will refer the patient to Dr. Jones to discuss LES L5-S1. We will follow up with her PRN 12/23/2024 L4-L5 disc bulge (ICD-10 - M51.369) 1. L5-S1 disc hernaition 2. lumbar radiculopathy discussed MRI results with the patient. The patient would like to leave surgery as a last resort option, thus we will refer the patient to Dr. Jones to discuss LES L5-S1. We will follow up with her PRN 12/16/2024 Lumbar radiculopathy (ICD-10 - M54.16) 1. DDD L4-S1 2. FA L4-S1 3. Lumbar radiculopathy The patient like to obtain MRI of the lumbar spine to further evaluate her condition as she has now developed objective weakness in the LLE with 4/5 left foot dorsiflexion concerning for progressive neurological impairment that will likely require invasive treatment to improve her condition and prevent permanent neurological injury. Will see the patient back once MRI has been obtained to discuss results. we will prescribe the patient Valium to take to tolerate the MRI 12/16/2024 Other Will see the patient back after MRIs been obtained to discuss results. We will prescribe the patient Valium to take to tolerate the MRI 1. DDD L4-S1 2. FA L4-S1 3. Lumbar radiculopathy The patient like to obtain MRI of the lumbar spine to further evaluate her condition as she has now developed objective weakness in the LLE with 4/5 left foot dorsiflexion concerning for progressive neurological impairment that will likely require invasive treatment to improve her condition and prevent permanent neurological injury. Will see the patient back once MRI has been obtained to discuss results. we will prescribe the patient Valium to take to tolerate the MRI 12/23/2024 Other we will refer the patient to Dr. Jones to discuss LES L5-S1. We will follow up with her PRN 1. L5-S1 disc hernaition 2. lumbar radiculopathy discussed MRI results with the patient. The patient would like to leave surgery as a last resort option, thus we will refer the patient to Dr. Jones to discuss LES L5-S1. We will follow up with her PRN Plan Of Treatment Pending Test Test Name Order Date Lumbar spine 2v ap and lat - 49931 12/16 MRI : Lumbosacral Spine W/O Contrast - 7 8 12/16/2024 Insurance Providers Payer Name Payer Address Payer Phone Subscriber Number Group Number Insured Name Patient Relationship to Insured Coverage Start Date Coverage End Date [employer] [address] [place] [address] [id number] ZABRINA DIAZ Spouse - patient is the spouse of the insured Medical (General) History Medical History History ICD Code High Blood Pressure Blood Clots in Legs/Lungs Anxiety Depression
--- OUTSIDE RECORDS SUMMARY | 2025-04-14 15:38 | XMS_ITS | Encounter Summary ---
Author Organization [facility] Address [address] [place] [address] Phone Care Team Providers Care Eyeglass Frame Truer Name Role Phone Grady Arriaga DO Primary Care Provider [phone] Encounter Details Date Type Department Care Team (Late st Contact Info) Description 09/06/2021 Orders Only [facility] [address] [place] [address] Conversion, Onbase Social History Tobacco Use Types [...] r Schedule OUTSIDE LAB SCAN Lab Ordered: 09/06/2021 documented as of this encounter Visit Diagnoses Not on filedocumented in this encounter Care Teams Eyeglass Frame Truer Relationship Specialty Start Date End Date Grady Arriaga DO PCP - General 04/05/21 documented as of this encounter
--- OUTSIDE RECORDS SUMMARY | 2025-04-14 15:38 | XMS_ITS | Clinical Summary ---
Author Organization [facility] Address [address] [place] [address] Phone Care Team Providers Care Piece Dye Worker Name Role Phone Grady Arriaga Primary Care Provider [phone] Allergies No known active allergies Medications aspirin 81 mg EC tablet Take 1 tablet (81 mg) by mouth once daily. Active buPROPion SR (Wellbutrin SR) 150 mg 12 hr tablet Take 1 tablet (150 mg) by mouth once daily. 07/04/2021 Active losartan-hydroch lorothiazide (Hyzaar) 50-12.5 mg tablet Take 1 tablet by mouth once daily. 04/06/2021 Active metoprolol succinate XL (Toprol-XL) 25 mg 24 hr tablet Take 1 tablet (25 mg) by mouth once daily. 05/24/2021 Active potassium chloride CR 10 mEq ER tablet Take 1 tablet (10 mEq) by mouth once daily. 07/04/2021 Active Active Problems Problem Noted Date Diagnosed Date Abnormal electrocardiogram 06/18/2023 Hypertension 06/18/2023 NSVT (nonsustained ventricular tachycardia) (Mul ti) 06/18/2023 Palpitations 06/18/2023 Class 2 obesity with body ma ss index (BMI) of 36.0 to 36.9 in adult 06/18/2023 White coat syndrome with hypertension 06/18/2023 Immunizations Immunization Administration Dates Next Due Influenza, intradermal, quadrivalent, preservati ve free 11/21/2016 Novel [id number], preservative-free 08/24 Tdap vaccine, age 7 year and older (BOOSTRIX, AD ACEL) 11/21/2016 Family History Medical History Relation Name Comments Heart attack Father Diabetes Mother Stroke Mother Relation Name Status Comments Father Mother Social History Tobacco Use Types Packs/Day Years Used Date Smoking Tobacco: Never Assessed Comments Unknown Sex and Gender Information Value Date Recorded Sex Assigned at Not on file Legal Sex Female 6:36 PM EST Gender Identity Not on file Sexual Orientation Not on file Last Filed Vital Signs Vital Sign Reading Time Taken Comments Blood Pressure 130/82 07/18/2022 1:41 PM EDT Pulse 68 07/18/2022 1:41 PM EDT Temperature - - Respiratory Rate - - Oxygen Saturation - - Inhaled Oxygen Concentration - - Weight 82.7 kg (182 lb 4 oz) 07/18/2022 1:41 PM EDT Height 170.2 cm (5' 7 ) 07/18/2022 1:41 PM EDT Body Mass Index 28.54 07/18/2022 1:41 PM EDT Plan of Treatment Health Maintenance Due Date Last Done Comments CT Colonography 1969 Colonoscopy 1969 Colorectal Cancer Screening 1969 FIT-DNA (Cologuard) 1969 FIT 1969 HIV Screening 1969 Lipid Panel 1969 Sigmoidoscopy 1969 Yearly Adult Physical 1969 Diabetes Screening 1987 Hepatitis C Screening 1987 Hepatitis B Vaccines (1 of 3 - 19+ 3-dose series) 1988 Cervical Cancer Screening 1990 HPV/Cotest 1990 Pap Smear 1990 Mammogram 2009 MMR Vaccines (1 of 1 - Standard series) 09/21/2009 Pneumococcal Vaccine (1 of 1 - PCV) 2019 Zoster Vaccines (1 of 2) 2019 COVID-19 Vaccine (3 - 2023-2 5 season) 2024 01/27/2021, 01/05/2021 Influenza Vaccine (Season Ended) 2025 11/21/2016, 08/24/2009 DTaP/Tdap/Td Vaccines (2 - T d or Tdap) 11/21/2026 11/21/2016 HIB Vaccines Aged Out No longer eligi ble based on patient's age to complete this topic HPV Vaccines (No Doses Required) Completed Hepatitis A Vaccines Aged Out No long er eligible based on patient's age to complete this topic IPV Vaccines Aged Out No longer eligi ble based on patient's age to complete this topic Meningococcal Vaccine Aged Out No mina mart eligible based on patient's age to complete this topic Rotavirus Vaccines Aged Out No longer eligible based on patient's age to complete this topic Insurance Care Teams Piece Dye Worker Relationship Specialty Start Date End Date Grady Arriaga DO PCP - General 04/05/21
--- OUTSIDE RECORDS SUMMARY | 2025-04-14 15:38 | XMS_ITS | Clinical Summary ---
Author Organization [facility] 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 Max Daily Amount: 3 tablets Active Active Problems Problem Noted Date Diagnosed Date Pancreatitis, unspecified pancreatitis type 11/15 Renal mass 12/01/2024 Acute biliary pancreatitis without infection or necrosis 11/30/2024 Hypertension 06/18/2023 Social History Tobacco Use Types Packs/Day Years Used Date Smoking Tobacco: Never Smokeless Tobacco: Never Tobacco Cessation:Counseling Given: Not Answered Alcohol Use Standard Drinks/Week Comments Not Currently 0 (1 standard drink = 0.6 oz pur e alcohol) [facility] Utilities Answer Date Recorded In the past 12 months has e [employer], gas, oil, or water company threatened to shut off services in your home? No 11/30/2024 Hunger Vital Sign Answer Date Recorded Within the past 12 months, y ou worried that your food would run out before you got the money to buy more. Never true 11/30/19 25 Within the past 12 months, t he food you bought just didn't last and you didn't have money to get more. Never true 11/30/2024 PRAPARE - Transportation Answer Date Re corded In the past 12 months, has l ack of transportation kept you from medical appointments or from getting medications? No 11/15 In the past 12 months, has l ack of transportation kept you from meetings, work, or from getting things needed for daily living? No 11/30/2024 Housing Stability Vital Sign Answer Sherman e Recorded In the last 12 months, was t here a time when you were not able to pay the mortgage or rent on time? No 11/30/2024 In the past 12 months, how m any times have you moved where you were living? 0 11/30/2024 At any time in the past [facility], were you homeless or living in a group home (including now)? No 11/30/2024 Food Insecurity Answer Date Recorded Within the past 12 months, y ou worried that your food would run out before you got the money to buy more. 1 11/30/2024 Within the past 12 months, t he food you bought just didn't last and you didn't have money to get more. 1 11/30/2024 Interpersonal Safety Domain Source: IP Abuse Scr eening Answer Date Recorded Physical abuse Denies 11/30/2024 Verbal abuse Denies 11/30/2024 Emotional abuse Denies 11/30/2024 Financial abuse Denies 11/30/2024 Sexual abuse Denies 11/30/2024 Comments Unknown Sex and Gender Information Value Date Recorded Sex Assigned at Not on file Legal Sex Female 2:46 PM EST Gender Identity Not on file Sexual Orientation Not on file Last Filed Vital Signs Vital Sign Reading Time Taken Comments Blood Pressure 128/76 12/03/2024 10:30 AM EST Pulse 99 12/03/2024 10:30 AM EST Temperature 36.5 C (97.7 F) 12/03/2024 10:30 AM EST Respiratory Rate 18 12/03/2024 1:19 PM EST Oxygen Saturation 99% 12/03/2024 10: 30 AM EST Inhaled Oxygen Concentration - - Weight 76.1 kg (167 lb 12.8 oz) 11/30/2024 9:15 PM EST Height 170.2 cm (5' 7 ) 11/30/2024 9:15 PM EST Body Mass Index 26.28 11/30/2024 9:15 PM EST Plan of Treatment Health Maintenance Due Date Last Done Comments Depression Screen 1981 HIV screen 1984 Hepatitis C screen 1987 Hepatitis B vaccine (1 of 3 - 19+ 3-dose series) 1988 Pap smear 1990 Cervical cancer screen 1999 HPV (without or with Pap) 1999 Diabetes screen 2004 Lipids 2009 Colonoscopy 2014 FIT/FOBT: Average risk 2014 Sigmoidoscopy/CT colonography 2014 Pneumococcal 50+ years Vacci ne (1 of 1 - PCV) 2019 Shingles vaccine (1 of 2) 2019 COVID-19 Vaccine (3 - 2023-2 5 season) 2024 01/27/2021, 01/05/2021 Breast cancer screen 11/30/2024 11/30/2022 Flu vaccine (Season Ended) 05/15/202511/21, 08/24/2009 DTaP/Tdap/Td vaccine (2 - Td or Tdap) 11/21/2026 11/21/2016 Colorectal Cancer Screen 11/04/2027 Fecal-DNA (Cologuard): [place] risk 11/04/2027 11/04/2024, 09/06/2021 Hepatitis A vaccine Aged Out No longe r eligible based on patient's age to complete this topic Hib vaccine Aged Out No longer eligi ble based on patient's age to complete this topic Meningococcal (ACWY) vaccine Aged Out No longer eligible based on patient's age to complete this topic Meningococcal B vaccine Aged Out No l onger eligible based on patient's age to complete this topic Polio vaccine Aged Out No longer elig ible based on patient's age to complete this topic Medical Devices Implanted Type Area Brake Rider Device Identifier Shelf Expiration Date Model / Serial / Lot Clip Int L Polymer Lexx Lig Hem O Lexx (6ea/Pk) - [id number] Implanted:Qty: 1 on 12/02/2024 by Glen Arreola MD at [facility] [employer]- [id number] 06/02/2029 [id number] / / [id number] Insurance [place] [employer] [id number] Advance Directives * Full Code (Latest Code Status on File) Date Activated Date Inactivated Comments 11/30/2024 9:14 PM 12/03/2024 5:14 PM Care Teams Steam Boiler Fireman Relationship Specialty Start Date End Date Grady Arriaga DO [address] [place] [id number] PCP - General Internal Medicine 11/30/24
== END 2025-04-14 15:36 | disposition home or self-care (01) ==
LOC: MRI 15:35
PROVIDERS: PCP Internal Medicine; Visit Provider Internal Medicine
DX: N28.89 Other specified disorders of kidney and ureter (principal)
CPT/HCPCS: 74183; A9575

== ENCOUNTER 2025-06-08 16:03 | Outpatient (OUT) | payer BC, SELFPAY ==
--- OUTSIDE RECORDS SUMMARY | 2025-06-08 16:11 | XMS_ITS | CCD ---
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 Ulrich Referring Unavaila ble Grady Das ladonna Primary Care Unavailabl e Dedra, Dr. Ulrich Attending Unavaila ble Dedra, Dr. Ulrich Referring Unavaila ble Pippa, Grady ladonna Primary Care Unavailabl e Dedra, Dr. Ulrich Attending Unavaila ble Gela Ortiz Unavailable Grady Das Unavailable PIPPA, DR GAINES Primary Care Unavailable JUAN ., DR DHALIWAL Consulting Unavailable JUAN ., DR DHALIWAL Attending Unavailable JUAN ., DR DHALIWAL Admitting Unavailable JUAN ., DR DHALIWAL Admitting Unavailable JUAN ., DR DHALIWAL Attending Unavailable PIPPA, DR GAINES Primary Care Unavailable CHAPIN, DR CARLOS Gipson Consulting Unavailable JUAN ., [...] Unavailable PIPPA, DR GAINES Primary Care Unavailable BALL, DR GAINES Consulting Unavailable BALL, DR GAINES Attending Unavailable BALL, DR GAINES Admitting Unavailable BALL, DR GAINES Primary Care Unavailable BALL, DR GAINES Consulting Unavailable BALL, DR GAINES Attending Unavailable BALL, DR GAINES Primary Care Unavailable RICHARDANDER, JOSIAH Calvillo Consulting Unavailable HIGHLANDER, JOSIAH Calvillo Attending Unavailable HIGHLANDER, JOSIAH D Admitting Unavailable FEILAM PATRICK Consulting Unavailable JAGUAR PERKINS Attending Unavailable JUAN, ARMANDO Attending Unavailable Unavailable Primary Care Provider UnavailGrady Yepez DO Primary Care Provider CARLOS SERVIN Consulting Unavailable KATKO, BETH Referring Unavailable AHMAD, SHOWKAT Admitting Unavailable AHMAD, SHOWKAT Attending Unavailable GRADY DAS Primary Care Unavailable BAIS, GLEN Consulting Unavailable Grady Das DO Primary Care Provider Shasha Isaac APRN Attending Provider [phone] Rosmery Bronson MNubia Attending Unavailable Lue, Rosmery M. Referring Unavailable Lue, Rosmery M. Admitting Unavailable Lue, Rosmery M. Attending Unavailable GRADY DAS Referring Unavailable Lue, Rosmery M. Referring Unavailable Lue, Rosmery M. Admitting Unavailable Lue, Rosmery M. Attending Unavailable Lue, Rosmery M. Referring Unavailable Lue, Rosmery M. Admitting Unavailable Lue, Rosmery M. Attending Unavailable Lue, Rosmery M. Attending Unavailable Lue, Rosmery M. Referring Unavailable Lue, Rosmery M. Admitting Unavailable Lue, Rosmery M. Attending Unavailable Wu ELDRIDGE Maya Attending Provider UnavailGrady Carrillo DO Attending Provider [phone] Allergies Allergy Classification Reported Allergen(s) Allergy Type Date of Onset Reaction(s) Facility (3 sources) patient allergy list reviewed by nurse or physicia Propensity to adverse reactions 8 Comment:Done [employer] Other (3 sources) NONE CURRENT Propensity to adverse reactions 0 NONE CURRENT [employer] Other (3 sources) Allergies Reconciled Propensity to adverse reactions Unknown [employer] Other (4 sources) No Known Medication Allergies; Translations: [No Known Medication Allergies] Propensity to adverse reactions (disorder) [facility] Repository Medications Current Medications Medication Drug Class(es) Dates Sig (Normalized) Sig (Original) acetaminophen 325 mg / HYDROcodone bitartrate 5 mg oral tablet (2 sources) Opioid Agonist Start: 06-08-2025 take 1 tablet by mouth every six hours as needed for pain Hydrocodone-Aceta minophen 5-325 mg tablet Active 1 TAB PO Every 6 hours as needed for pain 28 7 June 08, 2025 Complies with drug therapy Start: 12-01-2024 1 tablet, Oral , EVERY 6 HOURS PRN, Starting on Sun12/01/24 at 1109, Until Discontinued, Pain Severe (7-10), Maximum dose of acetaminophen is 4000 mg from all sources in 24 hours. Augmentin Tablets 875 MG (1 source) Start: 08-03-2021 take 1 tablet by mouth every twelve hours Augmentin Tablets 875 MG 1 tab(s) orally bid for 10 day(s) Jul, Active calcium chloride 0.0014 meq/ml / potassium chloride 0.004 meq/ml / sodium chloride 0.103 meq/ml / sodium lactate 0.028 meq/ml injectable solution (1 source) Start: 12-01-2024 IntraVENous, a t 150 mL/hr, CONTINUOUS, Starting on Sun12/01/24 at 0930 cephalexin 500 mg oral capsule (5 sources) [...] procedure, # 2 tab(s), Refills(s) 0, Pharmacy: [id number], 169, cm, 02/28/22 9:30:00 EDT, Height/Length Dosing, 95, kg, 02/21/22 14:43:00 EDTMarciano... Start Date: 02/28/22 Status: Ordered Claritin-D 24 Hour 10-240 MG (1 source) Start: 05-28-2023 take 10-240 mg by mouth once daily Claritin-D 24 Hour 10-240 MG 1 tablet Orally Once a day for 30 days May, Active cyclobenzaprine hydrochloride 10 mg oral tablet (1 source) Muscle Relaxant Start: 12-03-2024 End: 12-13-2024 take 1 tablet by mouth three times daily as needed for muscle spasms cyclobenzaprine (FLEXERIL) 10 MG tablet Take 1 tablet by mouth 3 times daily as needed for Muscle spasms 21 tablet 12/03/2024 12/13/2024 Active dexamethasone 1 mg/ml / neomycin 3.5 mg/ml / polymyxin b 70900 unt/ml ophthalmic suspension (1 source) Aminoglycoside Antibacterial, Polymyxin-class Antibacterial, Corticosteroid Start: 11-30-2020 take 2 drop(s) into the eye(s) four times daily Maxitrol 3.5-89717-1.1 2 drops into affected eye Ophthalmic Four times a day for 4 days Nov, Active 0.4 ml enoxaparin sodium 100 mg/ml prefilled syringe (1 source) Low Molecular Weight Heparin Start: 12-01-2024 inject 40 mg by subcutaneous injection once daily 40 mg, SubCUTAneous, DAILY, First dose on Sun12/01/24 at 0900, Until Discontinued, Indication of Use: Prophylaxis-DVT/PE , Administer by deep subCUTAneous injection with pt lying down. Alternate injection sites on abdominal wall. Do not rub site after injection. Check with provider prior to any invasive procedure., On hold since Sun12/01/2024 at 1648 until manually unheld escitalopram 5 mg oral tablet (6 sources) Serotonin Reuptake Inhibitor take 1 tablet by mouth once daily in the evening Escitalopram Oxalate 5 MG 1 tablet Orally Once a day, in evening for 30 days Active Lexapro Active Fish Oils (1 source) Start: 04-27-2025 [place]-3 Fish O il 1000 mg oral capsule mg cap(s), Oral, Refills(s) 0 Start Date: 04/27/25 Status: Ordered Repeat number: 1 fluticasone propionate 0.05 mg/actuat metered dose nasal spray (7 sources) Corticosteroid Start: 06-13-2024 take 2 spray(s) nasal route once daily Fluticasone Propionate (Flonase Allergy Relief) 50 mcg/actuation spray,suspension Active 2 SPRAY INTRANASAL Daily June 13, 2024 12:00am administer 2 spray into each nostril Complies with drug therapy Start: 08-03-2021 take 2 spray(s) nasa l route once daily FLONASE 50 mcg 2 sprays nasally qd Jul, Active hydroCHLOROthiazide 12.5 mg / losartan potassium 50 mg oral tablet (20 sources) Thiazide Diuretic, Angiotensin 2 Receptor Ophelia Start: 07-03-2024 take 1 tablet by mouth once daily Losartan-Hydrochlorothiazide 50-12.5 mg tablet Active 0 .ROUTE .COMPLEX 90 July 03, 2024 8:40am TAKE 1 TABLET BY MOUTH DAILY Complies with drug therapy Start: 04-06-2021 End: 07-03-2024 take 1 tablet by mouth once daily Losartan-Hydrochlorothiazide 50-12.5 mg tablet Discontinued 1 TAB PO Daily January 08, 2024 12:00am July 03, 2024 8:40am K2-D3 5000 125 mcg (5000 intl units)-90 mcg oral capsule (1 source) Start: 04-27-2025 K2-D3 5000 125 mcg (5000 intl units)-90 mcg oral capsule cap(s), Oral, Refill(s) 0 Start Date: 04/27/25 Status: Ordered Repeat number: 1 1 ml ketorolac tromethamine 15 mg/ml cartridge (1 source) Nonsteroidal Anti-inflammatory Drug, Cyclooxygenase Inhibitor Start: 12-01-2024 End: 12-06-2024 15 mg, IntraVENous, EVERY 6 HOURS PRN, Starting on Sun12/01/24 at 0651, Until 12/06/24 at 0650, Pain Moderate (4-6), Do not administer for more than 5 days. lidocaine 0.04 mg/mg medicated patch (1 source) Antiarrhythmic, Amide Local Anesthetic Start: 12-01-2024 1 patch, TransDERmal, Administer over 12 Hours, DAILY, First dose on Sun12/01/24 at 0900, Apply patch to back. The refund clerk's recommendations for the number of patches that can be applied within a 24-hour period varies from 1 to 4 times daily and the duration of application varies from 8 to 24 hours; refer to the refund clerk's labeling for product-specific recommendations. 24 hr loratadine 10 mg / pseudoephedrine sulfate 240 mg extended release oral tablet (2 sources) alpha-Adrenergic Agonist Start: 05-28-2023 take 1 tablet by mouth every twenty-fou r hours Claritin-D 24 Hour 10-240 MG 1 tablet Orally Once a day for 30 days May, Active Losartan Potassium-HCTZ (2 sources) Losartan Potassium-HCTZ Active 50 ml magnesium sulfate 40 mg/ml injection (1 source) Start: 11-30-2024 methylPREDNISolone 4 mg oral tablet (13 sources) Corticosteroid Start: 12-03-2024 End: 12-09-2024 methylPREDNISolone (MEDROL DOSEPACK) 4 MG tablet Take by mouth. 1 kit 12/03/2024 12/09/2024 Active Start: 12-08-2023 End: 06-05-2024 methylPREDNISolone (Medrol D [place]) 4 MG tablets TAKE BY MOUTH DIRECTED ON PACKAGE 12/08/2023 06/05/2024 Discontinued Start: 11-20-2022 Medrol 4 MG as directed Orally as directed for 6 days Nov, Active 24 hr metoprolol succinate 25 mg extended release oral tablet (20 sources) beta-Adrenergic Ophelia Start: 10-02-2024 End: 03-30-2025 take 1 tablet by mouth once daily Metoprolol Succinate 25 mg tablet extended release 24 hr Active 0 .ROUTE .COMPLEX March 30, 2025 5:07pm TAKE 1 TABLET BY MOUTH ONCE DAILY Complies with drug therapy Start: 10-02-2024 take 1 tablet by daysi once daily Metoprolol Succinate 25 mg tablet extended release 24 hr Active 0 .ROUTE .COMPLEX October 02, 2024 9:46am TAKE 1 TABLET BY MOUTH DAILY Start: 05-24-2021 End: 10-02-2024 take 1 tablet by mouth once daily Metoprolol Succinate 25 mg tablet extended release 24 hr Discontinued 25 MG PO Daily January 08, 2024 12:00am October 02, 2024 10:47am take 1 capsule by mo [facility] once daily Metoprolol Succinate 25 MG 1 capsule Orally Once a day Active Metoprolol Succi sigrid Active ondansetron (ZOFRAN-ODT) disintegrating tablet 4 mg (1 source) Start: 11-30-2024 ondansetron (ZOFRAN-ODT) disintegrating tablet 4 mg 24 hr phentermine 7.5 mg / topiramate 46 mg extended release oral capsule (11 sources) Sympathomimetic Amine Anorectic Start: 02-21-2022 take 1 capsule by mouth once daily in the morning Qsymia 7.5 mg-46 mg oral capsule, extended release cap(s), Oral, qAM, Refill(s) 0 Start Date: 02/21/22 Status: Ordered Potassium Chloride (20 sources) Start: 11-30-2024 End: 12-19-2024 potassium chloride 20 mEq/50 mL IVPB (Central Line) Start: 01-08-2024 End: 06-13-2024 take 1 tablet by mouth once daily Potassium Chloride 20 mEq tablet,ER particles/crystals Discontinued 0 .ROUTE .COMPLEX January 08, 2024 5:36pm June 13, 2024 5:24pm TAKE 1 TABLET BY MOUTH DAILY Start: 01-08-2024 End: 01-08-2024 take 1 tablet by mouth once daily Potassium Chloride 20 mEq tablet,ER particles/crystals Discontinued 20 MEQ PO Daily January 08, 2024 [...] Orally bid for 5 day(s) Jul, Active 1000 ml sodium chloride 9 mg/ml injection (3 sources) Start: 11-30-2024 Start: 11-30-2024 5-40 mL, Intra VENous, EVERY 12 HOURS SCHEDULED (2 times per day), First dose on 11/30/24 at 2130, Until Discontinued, For Line Patency: Peripheral IV = 5 mL; Midline or Central Line = 10 mL/lumen. If following IV push medication, administer flush at same rate as the IV push. Flush volume is determined by type of infusion therapy being given. For non-viscous solutions use: Peripheral IV = 5 mL Midline or Central Line = 10 mL/lumen For viscous solutions (i.e. blood components, parenteral nutrition, contrast media, or after obtaining blood sample) use: Peripheral IV = 10 mL Midline or Central Line = 20 mL/lumen Start: 11-30-2024 sulfamethoxazole 800 mg / trimethoprim 160 mg oral tablet (9 sources) Dihydrofolate Reductase Inhibitor Antibacterial, Sulfonamide Antimicrobial Start: 11-16-2022 take 1 tablet by mouth every twelve hours Bactrim DS 800-160 MG 1 tablet Orally Twice a day for 10 day(s) Nov, Active Super B Complex oral tablet (1 source) Start: 04-27-2025 Super B Complex oral tablet 1 tab(s), Oral, Daily, 90 tab(s), Refill(s) 0 Start Date: 04/27/25 Status: Ordered Quantity: 90.0 Unit: tab(s) Repeat number: 1 zolpidem tartrate 5 mg oral tablet (8 sources) gamma-Aminobutyric Acid-ergic Agonist Start: 10-21-2024 End: 06-08-2025 take 1 tablet by mouth once daily at bedtime as needed for sleep Zolpidem 5 mg tablet Active 5 MG PO Daily at bedtime as needed for sleep June 08, 2025 8:51am Complies with drug therapy Completed/Discontinued Medications Medication Drug Class(es) Dates Sig (Normalized) Sig (Original) acetaminophen 325 mg / oxyCODONE hydrochloride 5 mg oral tablet (1 source) Opioid Agonist oxyCODONE-acetam ilya phen (PERCOCET) 5-325 MG per tablet Take 1 tablet by mouth every 8 hours as needed for Pain. Max Daily Amount: 3 tablets Suspended ALPRAZolam 0.25 mg oral tablet (7 sources) Benzodiazepine Start: 04-01-2025 End: 05-05-2025 Alprazolam 0.25 mg tablet Discontinued 0 PO Once 2 1 April 01, 2025 5:02pm May 05, 2025 2:47pm 1-2 tablets taken 60 minutes prior to MRI Start: 06-23-2024 End: 04-01-2025 take 1 tablet by mouth once daily as needed for anxiety Alprazolam 0.25 mg tablet Discontinued 0.25 MG PO Daily as needed for anxiety 07 24June 23, 2024 12:00am April 01, 2025 5:04pm amoxicillin 875 mg / clavulanate 125 mg oral tablet (2 sources) Penicillin-class Antibacterial Start: 05-05-2025 End: 06-08-2025 take 1 tablet by mouth twice daily Amoxicillin-Pot Clavulanate 875-125 mg tablet Discontinued 1 TAB PO Twice daily 03 08May 05, 2025 12:00am June 08, 2025 8:35am aspirin 81 mg delayed release oral tablet (20 sources) Platelet Aggregation Inhibitor, Nonsteroidal Anti-inflammatory Drug Start: 02-21-2022 take 1 mg by mouth once daily aspirin 81 mg Oral EC Tab mg tab(s), Oral, Daily, Refills(s) 0 Start Date: 02/21/22 Status: Ordered Start: 02-21-2022 End: 05-05-2025 take 1 tablet by mouth once daily Aspirin 81 mg tablet,delayed release (DR/EC) Discontinued 81 MG PO Daily January 08, 2024 12:00am May 05, 2025 2:47pm Baby Aspirin Not -Taking/PRN Baby Aspirin Not -Taking Baby Aspirin Act glendy azithromycin 250 mg oral tablet (13 sources) Macrolide Antimicrobial Start: 06-13-2024 Azithromycin Active 0 PO .COMPLEX June 13, 2024 12:00am For 250 mg dose pack: take 500 mg today (day 1), then 250 mg for 4 days (days 2-5) PO Start: 02-01-2024 End: 10-21-2024 Azithromycin 250 mg tablet D iscontinued 0 PO .COMPLEX June 13, 2024 12:00am October 21, 2024 3:58pm For 250 mg dose pack: take 500 mg today (day 1), then 250 mg for 4 days (days 2-5) PO 24 hr buPROPion hydrochloride 150 mg extended release oral tablet (17 sources) Aminoketone Start: 07-21-2024 End: 05-05-2025 take 1 tablet by mouth once daily in the morning Bupropion Hcl 150 mg tablet extended release 24 hr Discontinued 0 .ROUTE .COMPLEX July 21, 2024 8:43am May 05, 2025 2:47pm TAKE 1 TABLET BY MOUTH EVERY MORNING Start: 07-21-2024 take 1 tablet by daysi th once daily in the morning Bupropion Hcl 150 mg tablet extended release 24 hr Active 0 .ROUTE .COMPLEX July 21, 2024 7:43am TAKE 1 TABLET BY MOUTH EVERY MORNING Start: 06-23-2024 End: 07-21-2024 take 1 tablet by mouth once daily in the morning Bupropion Hcl (Wellbutrin Xl) 150 mg tablet extended release 24 hr Discontinued 150 MG PO Every morning June 23, 2024 12:00am July 21, 2024 8:43am Start: 07-04-2021 take 1 tablet by daysi th once daily buPROPion HCl ER (SR) 150 MG Oral Tablet Extended Release 12 Hour Take 1 tablet by mouth daily Quantity: 60 Refills: 0 Ordered: 05-Jul-2021 DO Start : 04-Jul-2021 Active Wellbutrin Not-T aking Wellbutrin Activ e cefixime 400 mg oral capsule (3 sources) [...] today, repeat in 7 days. Dec, Not-Taking/PRN gadoteridol (PROHANCE) injection 15 mL (1 source) Start: 12-02-2024 End: 12-02-2024 take 1 dose intravenously once 15 mL, IntraVENous, IMG ONCE PRN, 1 dose, Starting on Sun12/02/24 at 0829, Until Sun12/02/24 at 0830, Other 1 ml LORazepam 2 mg/ml injection (13 sources) Benzodiazepine Start: 12-01-2024 End: 02-18-2025 inject 1 dose intravenously once 2 mg, IntraVENous, ONCE, 1 dose, On Sun12/01/24 at 1830, Immediately prior to intravenous use, lorazepam Injection must be diluted with at least an equal volume of compatible solution (NS or D5W)., Please retimed for 30 minutes prior to MRI Start: 01-08-2024 End: 06-13-2024 take 1 tablet by mouth once daily as needed for anxiety Lorazepam 0.5 mg tablet Discontinued 0.5 MG PO January 08, 2024 12:00am June 13, 2024 5:23pm 1/2 - 1 Orally Once a day PRN anxiety Start: 10-09-2023 LORazepam 0.5 MG 1/2 - 1 Orally Once a day PRN anxiety for 30 days Sep, Active 1 ml morphine sulfate 2 mg/ml cartridge (2 sources) Opioid Agonist Start: 12-01-2024 End: 12-01-2024 take 1 dose by mouth every hour 1 mg, IntraVENous, ONCE, 1 dose, On Sun12/01/24 at 2300, If oral and IV narcotics ordered, use oral first and only use IV if oral is ineffective or cannot take oral. Do Not give oral and IV within 1 hour of each other unless specifically ordered. Start: 12-01-2024 take 1 mg by mouth e very four hours as needed 1 mg, IntraVENous, EVERY 4 HOURS PRN, Starting on Sun12/01/24 at 0651, Until Discontinued, Pain Severe (7-10), If oral and IV narcotics ordered, use oral first and only use IV if oral is ineffective or cannot take oral. Do Not give oral and IV within 1 hour of each other unless specifically ordered. nitrofurantoin, macrocrystals 25 mg / nitrofurantoin, monohydrate 75 mg oral capsule (11 sources) Nitrofuran Antibacterial Start: 01-01-2022 take 1 capsule by mouth every twelve hours Macrobid 100 MG 1 cap(s) Orally bid for 5 day(s) Dec, Not-Taking/PRN pantoprazole 40 mg delayed release oral tablet (20 sources) Proton Pump Inhibitor Start: 01-08-2024 End: 06-13-2024 take 1 tablet by mouth once daily in the morning Pantoprazole 40 mg tablet,delayed release (DR/EC) Discontinued 0 .ROUTE .COMPLEX January 08, 2024 5:36pm June 13, 2024 5:23pm TAKE 1 TABLET BY MOUTH EVERY MORNING ON AN EMPTY STOMACH Start: 01-08-2024 End: 06-13-2024 take 1 tablet [...] (DR/EC) Discontinued 40 MG PO Daily January 08, 2024 12:00am January 08, 2024 5:36pm Start: 02-21-2022 Protonix 40 mg tablet Daily, Refills(s) 0 Start Date: 02/21/22 Status: Ordered take 1 tablet by daysi th once daily in the morning Pantoprazole Sodium 40 mg TAKE 1 TABLET BY MOUTH EVERY MORNING ON AN EMPTY STOMACH for 30 Active Pantoprazole 40 mg tablet,delayed release (DR/EC) (2 sources) Start: 01-08-2024 End: 06-13-2024 take 1 tablet by mouth once daily in the morning Pantoprazole 40 mg tablet,delayed release (DR/EC) Discontinued 0 .ROUTE .COMPLEX January 08, 2024 4:36pm June 13, 2024 4:23pm TAKE 1 TABLET BY MOUTH EVERY MORNING ON AN EMPTY STOMACH piperacillin-tazobact am (ZOSYN) 3,375 mg in sodium chloride 0.9 % 50 mL IVPB (mini-bag) (1 source) Start: 12-03-2024 3,375 mg, IntraVENous, EVERY 8 HOURS, First dose on Sun12/03/24 at 0100, Until Discontinued, Antimicrobial Indications: Intra-Abdominal Infection rosuvastatin calcium 10 mg oral tablet (13 sources) HMG-CoA Reductase Inhibitor Start: 05-24-2021 take 1 tablet by mouth once daily in the evening Rosuvastatin Calcium 10 MG Oral Tablet TAKE 1 TABLET BY MOUTH EVERY EVENING Quantity: 30 Refills: 0 Ordered: 23-Sep-2021 DO Start : 24-May-2021 Active Crestor Not-Taki ng/PRN Crestor Not-Taki ng Crestor Active sulfacetamide sodium 100 mg/ml ophthalmic solution (10 sources) Sulfonamide Antibacterial Start: 02-01-2024 End: 06-13-2024 take 1 drop(s) into the eye(s) four times daily Sulfacetamide Sodium 10 % drops Discontinued 2 DROPS EYE-BOTH Four times daily 02 18February 01, 2024 12:00am June 13, 2024 5:24pm Start: 02-01-2024 End: 06-13-2024 take 1 drop(s) into the eye(s) four times daily Sulfacetamide Sodium 10 % drops Discontinued 2 DROPS EYE-BOTH Four times daily 02 18January 31, 2024 11:00pm June 13, 2024 4:24pm Start: 02-01-2024 End: 06-13-2024 take 1 drop(s) into the eye(s) four times daily Sulfacetamide Sodium Discontinued 2 DROPS EYE-BOTH Four times daily 02 18February 01, 2024 12:00am June 13, 2024 5:24pm Start: 05-28-2023 take 2 drop(s) into the eye(s) four times daily Sulfacetamide Sodium 10 % 2 drops Ophthalmic qid for 7 days May, Active tiZANidine 4 mg oral tablet (1 source) Central alpha-2 Adrenergic Agonist Start: 12-01-2024 End: 12-01-2024 take 1 dose by mouth once 4 mg, Oral, ONCE, 1 dose, On Sun12/01/24 at 2300 traMADol hydrochloride 50 mg oral tablet (3 sources) Opioid Agonist Start: 12-04-2024 End: 05-05-2025 take 1 tablet by mouth every eight hours as needed for pain Tramadol 50 mg tablet Discontinued 50 MG PO Every 8 hours as needed for pain 11 05December 04, 2024 1:00am May 05, 2025 2:47pm triamcinolone acetonide 40 mg/ml injectable suspension (16 sources) Corticosteroid Start: 08-21-2023 Kenalog-40 Aug, 60 mg Start: 12-20-2022 Kenalog-40 Apr, 40 mg Problems Active Problems Problem Classification Problem Date Documented Da te Episodic/Chronic Acquired foot deformities (1 source) Foot drop, right foot Episodic Anxiety disorders (18 sources) Generalized anxiety disorder; Translations: [Generalized anxiety disorder] 06-23-2024 Chronic Attention-deficit, conduct, and disruptive behavior disorders (3 sources) Attention deficit hyperactivity disorder, predominantly inattentive type; Translations: [Attention deficit disorder of childhood without mention of hyperactivity] Onset: 6 Chronic Biliary tract disease (2 sources) Gallstone; Translations: [Calculus of gallbladder without cholecystitis without obstruction] Onset: 5 12-02-2024 Episodic Cardiac dysrhythmias (3 sources) Nonsustained ventricular tachycardia ; Translations: [Paroxysmal ventricular tachycardia] Chronic Cardiac dysrhythmias (20 sources) Palpitations; Translations: [Palpitations] 06-23-2024 Episodic Conditions associated with dizziness or vertigo (15 sources) Dizziness; Translations: [Dizziness and giddiness] Episodic Deficiency and other anemia (7 sources) Anemia; Translations: [Anemia, unspecified] 03-27-2024 Episodic Diabetes mellitus without complication (14 sources) Impaired fasting glycemia; Translations: [Impaired fasting glucose] Onset: 2 Episodic Esophageal disorders (8 sources) Esophageal reflux finding; Translations: [Esophageal reflux] Onset: 4 Chronic Esophageal disorders (8 sources) Esophageal disorders; Translations: [Gastroesophageal reflux disease with esophagitis without hemorrhage] Essential hypertension (20 sources) Hypertensive disorder; Translations: [Unspecified essential hypertension] Onset: 3 02-21-2022 Chronic Fluid and electrolyte disorders (14 sources) Hypokalemia; Translations: [Hypokalemia] Onset: 2 Episodic Genitourinary symptoms and ill-defined conditions (5 sources) Retention of urine; Translations: [Retention of urine, unspecified] Onset: 2 Resolved: 2 Episodic Headache; including migraine (13 sources) Migraine with aura; Translations: [Migraine with aura, not intractable, without status migrainosus] Chronic Headache; including migraine (1 source) Headache; including migraine; Translations: [HEADACHE UNSPECIFIED] Onset: 2 Inflammation; infection of eye (except that caused by tuberculosis or sexually transmitteddisease) (17 sources) Allergic dermatitis of unspecified eye, unspecified eyelid; Translations: [Contact or allergic eyelid dermatitis] Onset: 5 Episodic Influenza (3 sources) Upper respiratory tract infection due to Influenza; Translations: [Influenza due to unidentified influenza virus with other respiratory manifestations] Episodic Miscellaneous mental health disorders (20 sources) 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; 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 Mood disorders (20 sources) Mild recurrent major depression; Translations: [Major depressive disorder, recurrent, mild] Onset: 5 Resolved: 1 Chronic Other connective tissue disease (1 source) Pain in right foot; Translations: [PAIN IN RIGHT FOOT] Onset: 3 Episodic Other diseases of bladder and urethra (2 sources) Urethral stricture; Translations: [Unspecified urethral stricture, female] Onset: 5 Episodic Other diseases of kidney and ureters (7 sources) Renal mass; Translations: [Other specified disorders of kidney and ureter] Onset: 5 12-01-2024 Chronic Comment on above: CT: 1.5cm right mayco l mass - 11/2024 CT: 1.5cm right mayco l mass - 11/2024MRI: 1.7cm right renal mass - 04/2025 Other diseases of kidney and ureters (1 source) Other specified disorders of kidney and ureter; Translations: [Unspecified disorder of kidney and ureter] 12-10-2024 Chronic Other diseases of kidney and ureters (1 source) Disorder of kidney and/or ureter; Translations: [Other specified disorders of kidney and ureter] Onset: 5 Chronic Other endocrine disorders (13 sources) Disorder of endocrine system; Translations: [Endocrine disorder, unspecified] Onset: 2 Episodic Other endocrine disorders (5 sources) Endocrine disorder, unspecified; Translations: [ENDOCRINE DISORDER UNSPECIFIED] Onset: 2 Episodic Other gastrointestinal disorders (1 source) Constipation; Translations: [Constipation, unspecified] 06-08-2025 Episodic Other nervous system disorders (7 sources) Common peroneal nerve paralysis; 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, 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 Other non-traumatic joint disorders (4 sources) Pain in right ankle and joints of right foot; Translations: [PAIN IN RIGHT ANKLE] Onset: 3 Episodic Other nutritional; endocrine; and metabolic disorders (15 sources) Obesity; Translations: [Obesity, unspecified] Chronic Other nutritional; endocrine; and metabolic disorders (3 sources) Simple obesity ; Translations: [Other obesity due to excess calories] Onset: 8 Chronic Other nutritional; endocrine; and metabolic disorders (6 sources) Body mass index 30+ - obesity; Translations: [Body mass index 31.0-31.9, adult] Onset: 8 Chronic Other nutritional; endocrine; and metabolic disorders (3 sources) Obese class I; Translations: [Body mass index 32.0-32.9, adult] Onset: 8 Chronic Other nutritional; endocrine; and metabolic disorders (1 source) Overweight in adulthood with body mass index of 25 or more but less than 30; Translations: [Overweight] Episodic Other screening for suspected conditions (not mental disorders or infectious disease) (20 sources) Electrocardiogram abnormal; Translations: [Nonspecific abnormal electrocardiogram [ECG] [EKG]] Onset: 3 Resolved: 1 Episodic Other skin disorders (13 sources) Vesicular eczema of hands and/or feet; Translations: [Dyshidrosis [pompholyx]] Episodic Other upper respiratory disease (17 sources) Seasonal allergic rhinitis; Translations: [Other seasonal allergic rhinitis] Chronic Other upper respiratory disease (3 sources) Other seasonal allergic rhinitis Chronic Other upper respiratory disease (3 sources) Allergic rhinitis; Translations: [Allergic rhinitis, unspecified] Onset: 4 Chronic Other upper respiratory disease (2 sources) Seasonal allergy; Translations: [Other seasonal allergic rhinitis] Chronic Other upper respiratory infections (20 sources) Acute sinusitis, unspecified; Translations: [Acute pharyngitis] Onset: 3 Resolved: 1 Episodic Pancreatic disorders (not diabetes) (4 sources) Gallstone acute pancreatitis; Translations: [Biliary acute pancreatitis without necrosis or infection] Onset: 5 11-30-2024 Episodic Residual codes; unclassified (1 source) Acquired absence of other specified parts of digestive tract; Translations: [Other acquired absence of organ] 12-10-2024 Episodic Spondylosis; intervertebral disc disorders; other back problems (6 sources) Cervicalgia; Translations: [Low back pain] Onset: 2 Episodic Sprains and strains (6 sources) Neck sprain; Translations: [Neck sprain and strain] Onset: 9 Episodic Unclassified (3 sources) Other ventricular tachycardia; Translations: [Other ventricular tachycardia] Urinary tract infections (9 sources) Urinary tract infectious disease; Translations: [Urinary tract infection, site not specified] Onset: 2 Resolved: 2 Episodic Past or Other Problems Problem Classification [...] 05-05-2015 Episodic Other aftercare (1 source) 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; Translations: [OTH ASSISTED CURRENT DRUG THERAPY] Onset: 07-18-2022 Episodic Other [...] [Asymptomatic menopausal state] Onset: 01-06-2022 06-05-2024 Episodic Residual codes; unclassified (2 sources) History of partial nephrectomy; Translations: [Acquired absence of kidney] Onset: 10-15-2024 06-04-2025 Episodic Unclassified (2 sources) Never smoked tobacco; Translations: [Never a smoker] Unclassified (9 sources) NSVT (nonsustained ventricular tachycardia); Translations: [NSVT (nonsustained ventricular tachycardia)] Unclassified (1 source) Contact with and (suspected) exposure to covid-19 Z20.822 Unclassified (3 sources) General observation; Translations: [Observation following other accident] Onset: 01-09-2019 Viral infection (1 source) COVID-19 Results Test Name Value Interpretation Reference Range Facility [facility] 06-03-2025 Anion gap [Moles/Vol] 9 mmol/L Normal 6-16 [facility] Comment on above: Performed By: #### 2 [id number] #### [facility] [address] [place] [address] BUN/Creat Ratio 26 No Units High 10-20 [facility] Comment on above: Performed By: #### 2 [id number] #### [facility] [address] [place] [address] Calcium [Mass/Vol] 8.6 mg/dL Low 8.9-11.1 [facility] Comment on above: Performed By: #### 2 [id number] #### [facility] [address] [place] [address] Chloride [Moles/Vol] 103 mmol/L Normal 101-111 [facility] Comment on above: Performed By: #### 2 [id number] #### [facility] [address] [place] [address] CO2 [Moles/Vol] 27 mmol/L Normal 21-31 [facility] Comment on above: Performed By: #### 2 [id number] #### [facility] [address] [place] [address] Creatinine [Mass/Vol] 0.7 mg/dL Normal 0.5-1.3 [facility] Comment on above: Performed By: #### 2 [id number] #### [facility] [address] [place] [address] Glucose [Mass/Vol] 100 mg/dL Normal 55-199 [facility] Comment on above: Performed By: #### 2 [id number] #### [facility] [address] [place] [address] Potassium [Moles/Vol] 4.2 mmol/L Normal 3.5-5.3 [facility] Comment on above: Performed By: #### 2 [id number] #### [facility] [address] [place] [address] Sodium [Moles/Vol] 135 mmol/L Normal 135-145 [facility] Comment on above: Performed By: #### 2 [id number] #### [facility] [address] [place] [address] Urea nitrogen [Mass/Vol] 18 mg/dL Normal 5-21 [facility] Comment on above: Performed By: #### 2 [id number] #### [facility] [address] [place] [address] CBC w/ Auto Diffon 5 Basophil Absolute 0.0 E9/L Normal 0.0-0.2 [facility] Comment on above: Performed By: #### 2 [id number] #### [facility] [address] [place] [address] Basophils/100 WBC (Bld) 0.1 % Normal 0.0-2.0 [facility] Comment on above: Performed By: #### 2 [id number] #### [facility] [address] [place] [address] Eos Absolute 0.0 E9/L Normal 0.0-0.5 [facility] Comment on above: Performed By: #### 2 [id number] #### [facility] [address] [place] [address] Eosinophils/100 WBC (Bld) 0.0 % Normal 0.0-8.0 [facility] Comment on above: Performed By: #### 2 [id number] #### [facility] [address] [place] [address] Erythrocyte distribution width (RBC) [Ratio] 12.9 % Normal 10.9-14.2 [facility] Comment on above: Performed By: #### 2 [id number] #### [facility] [address] [place] [address] Hematocrit (Bld) [Volume fraction] 37.2 % Normal 34.0-46.0 [facility] Comment on above: Performed By: #### 2 [id number] #### [facility] [address] [place] [address] Hemoglobin (Bld) [Mass/Vol] 13.0 g/dL Normal 12.0-16.0 [facility] Comment on above: Performed By: #### 2 [id number] #### [facility] [address] [place] [address] Lymph Absolute 1.1 E9/L Normal 1.0-4.0 [facility] Comment on above: Performed By: #### 2 [id number] #### [facility] [address] [place] [address] Lymphocytes/100 WBC (Bld) 11.8 % Low 14.0-50.0 [facility] Comment on above: Performed By: #### 2 [id number] #### [facility] [address] [place] [address] MCH (RBC) [Entitic mass] 31.8 pg Normal 27.0-34.0 [facility] Comment on above: Performed By: #### 2 [id number] #### [facility] [address] [place] [address] MCHC (RBC) [Mass/Vol] 35.0 g/dL Normal 31.4-36.0 [facility] Comment on above: Performed By: #### 2 [id number] #### [facility] [address] [place] [address] MCV (RBC) [Entitic vol] 90.8 fL Normal 80.0-100.0 [facility] Comment on above: Performed By: #### 2 [id number] #### [facility] [address] [place] [address] [place] Absolute 0.6 E9/L Normal 0.2-1.0 [facility] Comment on above: Performed By: #### 2 [id number] #### [facility] [address] [place] [address] Monocytes/100 WBC (Bld) 6.9 % Normal 4.0-14.0 [facility] Comment on above: Performed By: #### 2 [id number] #### [facility] [address] [place] [address] Neutro Absolute 7.4 E9/L Normal 2.0-7.5 [facility] Comment on above: Performed By: #### 2 [id number] #### [facility] [address] [place] [address] Neutro Auto 81.2 % High 36.0-75.0 [facility] Comment on above: Performed By: #### 2 [id number] #### [facility] [address] [place] [address] Platelet 347.0 E9/L Normal 150.0-500.0 [facility] Comment on above: Performed By: #### 2 [id number] #### [facility] [address] [place] [address] Platelet mean volume (Bld) [Entitic vol] 7.8 fL Normal 6.4-10.8 [facility] Comment on above: Performed By: #### 2 [id number] #### [facility] [address] [place] [address] RBC 4.1 E12/L Low 4.3-5.9 [facility] Comment on above: Performed By: #### 2 [id number] #### [facility] [address] [place] [address] WBC 9.1 E9/L Normal 4.0-11.0 [facility] Comment on above: Performed By: #### 2 [id number] #### [facility] [address] [place] [address] Discharge Note-Nursingon Discharge Note-Nursing Discharge Note-Nursing JENNIFER ZAMORA :1970 Visit Date:06/02/2025 Inpatient Discharge Instructions Your Care Team Admitting Physician - Rosmery Bronson MD Referring Physician - Rosmery Bronson MD Reason for Your Visit RENAL MASS Your Diagnosis Acute post-operative pain Renal mass, right Tests Performed UA with Cult Rflx -- Results Pending -- Please visit your patient portal for your results or contact your primary care physician. This Is Your Medications List acetaminophen-hydroco done (Charenton 325 mg-5 mg oral tablet) aspirin (Aspirin Low Dose) cholecalciferol-menaq uinone (K2-D3 5000 125 mcg (5000 intl units)-90 mcg oral capsule) hydrochlorothiazide-l osartan (hydrochlorothiazide- losartan 12.5 mg-50 mg Tab) metoprolol (metoprolol succinate 25 mg ER Tab) multivitamin (Super B Complex oral tablet) omega-3 polyunsaturated fatty acids ([place]-3 Fish Oil 1000 mg oral capsule) zolpidem (zolpidem 5 mg Tab) Procedure History Laparoscopic partial nephrectomy (06/02/2025), Appendectomy, Cholecystectomy;, Hysterectomy, Tubal ligation. Discharge Vitals Temperature (Oral) 36.6 ???C Heart Rate (Monitored) 76 Respiratory Rate 18 Blood Pressure 107/65 What to do next Instructions From Your Doctor Event Name Event Result Discharge Activity Ambulate as tolerated, Arrange for a responsible adult supervision for 24 hours, Expect mild pain, Expect minimal amount of drainage and/or bleeding Discharge Restrictions No driving, Do not operate machinery or tools Discharge Diet(s) Regular Call Your Doctor For Persistent or heavy bleeding, Temperature above 101.5 degrees, Redness, swelling, or pus at operative site, Severe pain at the operative site, Persistent vomiting Wound Care Remove dressing as instructed Remove Dressing On 2 Pending Diagnostic Test Results Biopsy/pathology Discharge Instructions Replace dressing daily to keep dry and as needed until incision is closed. Previously Scheduled Follow-Up Appointments 2024 8:45 AM EDT With: Audie MADERA, Rosmery Mckay Where: [facility] [address], [address] [place] [address]- New Follow Up Appointments after Discharge Follow Up with GRADY DAS When: 06/08/2025 08:30 AM EDT Where: [address] [place] [address]- Business (1) Follow Up with Rosmery Bronson When: Comments: Office to schedule your follow up in 2 weeks for pathology review and postop check Where: [address], [facility] [address] [place] [phone] Business (1) Medications What How Much When Why Instructions Next Dose New acetaminophen-hydroco done (Charenton 325 mg-5 mg oral tablet) 2 Tablets By Mouth Every 4 hours as needed for as needed for pain Acute post-operative pain Renal mass, right Duration: 3 Days Take 1-2 tabs every 4 hours as needed for moderate to severe pain. Not to exceed 8 tablets/ day Pickup at [facility]pharm[facility] #[id number] 06/03/25 4:20pm Unchanged aspirin (Aspirin Low Dose) 81 Milligram By Mouth Every day Resume Unchanged cholecalciferol-menaq uinone (K2-D3 5000 125 mcg (5000 intl units)-90 mcg oral capsule) By Mouth Resume Unchanged hydrochlorothiazide-l osartan (hydrochlorothiazide- losartan 12.5 mg-50 mg Tab) 1 Tablets By Mouth Every day Resume Unchanged metoprolol (metoprolol succinate 25 mg ER Tab) 1 Tablets By Mouth Every day Resume Unchanged multivitamin (Super B Complex oral tablet) 1 Tablets By Mouth Every day Resume Unchanged omega-3 polyunsaturated fatty acids ([place]-3 Fish Oil 1000 mg oral capsule) By Mouth Resume Unchanged zolpidem (zolpidem 5 mg Tab) Resume Pharmacy Information [facility]/pharmacy #[id number]: [address] [place], [place] [id number] [phone] Test Results CBC BMP WBC: 9.1 E9/L (06/03/25 06:03:00) Glucose Lvl: 100 mg/dL (06/03/25 06:03:00) RBC: 4.1 E12/L Low (06/03/25 06:03:00) BUN: 18 mg/dL (06/03/25 06:03:00) HGB: 13 gm/dL (06/03/25 06:03:00) Creatinine: 0.7 mg/dL (06/03/25 06:03:00) Hct: 37.2 % (06/03/25 06:03:00) BUN/Creat Ratio: 26 High (06/03/25 06:03:00) MCV: 90.8 fL (06/03/25 06:03:00) Sodium Lvl: 135 mmol/L (06/03/25 06:03:00) MCH: 31.8 pg (06/03/25 06:03:00) Potassium Lvl: 4.2 mmol/L (06/03/25 06:03:00) MCHC: 35 gm/dL (06/03/25 06:03:00) Chloride: 103 mmol/L (06/03/25 06:03:00) RDW: 12.9 % (06/03/25 06:03:00) CO2: 27 mmol/L (06/03/25 06:03:00) Platelet: 347 E9/L (06/03/25 06:03:00) AGAP: 9 mEq/L (06/03/25 06:03:00) MPV: 7.8 fL (06/03/25 06:03:00) Calcium Lvl: 8.6 mg/dL Low (06/03/25 06:03:00) Allergies No Known Medication Allergies Problems Ongoing - Any problem that you are currently receiving treatment for. Hypertension Recurrent UTI Renal mass, right Unspecified urethral stricture, female Education Materials Minimally Invasive Nephrectomy, Care After This sheet gives you information about how to care for y (more content not included)... Normal [facility] Inpatient Clinical Summaryon 06-03-2025 Inpatient Clinical Summary Inpatient Clinical Summary [place] [id number] Clinical Summary Person Information: Name: JENNIFER ZAMORA Age: 54 Years : 1970 Sex: Female PCP: GRADY DAS DO Marital Status: Race: White Ethnicity: Non- or Language: Botswanan Visit Id: Visit Reason: RENAL MASS Speciality: Acuity: Enc Type: Outpatient in a Bed Med Service: Surgery Arrival: 06/02/2025 07:30:02 Discharge: Dispo Type: Address: [address] [place] [phone] Provider Notes: Patient: JENNIFER ZAMORA Age: 54 years Sex: Female : 1970 Associated Diagnoses: None Author: Rosmery Bronson MD Results Review General results Today's results 06/03/2025 6:03 EDT WBC 9.1 E9/L RBC 4.1 E12/L LOW HGB 13.0 gm/dL Hct 37.2 % MCV 90.8 fL MCH 31.8 pg MCHC 35.0 gm/dL RDW 12.9 % Platelet 347.0 E9/L MPV 7.8 fL Neutro Auto 81.2 % HI Lymph Auto 11.8 % LOW [place] Auto 6.9 % Eos Auto 0.0 % Basophil Auto 0.1 % Neutro Absolute 7.4 E9/L Lymph Absolute 1.1 E9/L [place] Absolute 0.6 E9/L Eos Absolute 0.0 E9/L Basophil Absolute 0.0 E9/L Glucose Lvl 100 mg/dL BUN 18 mg/dL Creatinine 0.7 mg/dL eGFR 101 mL/min/1.73 m2 BUN/Creat Ratio 26 HI Sodium Lvl 135 mmol/L Potassium Lvl 4.2 mmol/L Chloride 103 mmol/L CO2 27 mmol/L AGAP 9 mEq/L Calcium Lvl 8.6 mg/dL LOW Physical Examination Vital Signs (last 24 hrs) Last Charted Temp Oral 36.6 DegC (JUN 03:) Heart Rate Monitored 76 bpm (JUN 03) SBP 107 mmHg (JUN 03) DBP 65 mmHg (JUN 03) Intake and Output Fluid Balance Primitives 06/03/2025 9:00 EDT Other: FAUSTO drain Abdomen Right Surgical Drain, Tube Output: 15 mL 06/03/2025 5:00 EDT Other: FAUSTO drain Abdomen Right Surgical Drain, Tube Output: 10 mL 06/03/2025 0:02 EDT Other: FAUSTO drain Abdomen Right Surgical Drain, Tube Output: 20 mL General: Alert and oriented, No acute distress. Eye: Extraocular movements are intact, Normal conjunctiva. HENT: Normocephalic, Normal hearing. Respiratory: Respirations are non-labored, Symmetrical chest wall expansion, No crepitus. Cardiovascular: Normal rate, Regular rhythm, No edema. Gastrointestinal: Soft, Non-distended, Appropriately tender. Robotic incisions c/d/i with skin glue. RLQ drain with scant SS output. Genitourinary: No costovertebral angle tenderness, Maldonado with clear yellow urine prior to removal. Musculoskeletal Normal range of motion. Normal strength. Integumentary: Warm, Dry, Intact. Neurologic: Alert, Oriented, No focal deficits. Psychiatric: Cooperative, Appropriate mood & affect, Normal judgment. Hospital Course 54 year old female with incidental finding of small right upper pole renal mass concerning for malignancy during workup for cholecystitis. After discussion of risks/benefits, she elected to proceed with robotic right partial nephrectomy on the day of admission. Case was uneventful. She recovered well on the floor. Labs were stable and wnl postop. Her vitals and blood pressure remained stable and well controlled. Her pain was controlled on PO pain meds, she was tolerating PO intake, ambulating safely and voided after maldonado removal. Her FAUSTO drain output was minimal and removed prior to discharge home. She will follow up in 2 weeks for post op check and pathology review. Discharge Plan Discharge Summary Plan Discharge Status: stable. Discharge instructions given: to patient, to caregiver. Discharge disposition: discharge to home into the care of family member. Prescriptions: called to pharmacy. Diagnosis: Renal mass, right Problems Active Renal mass, right Unspecified urethral stricture, female Recurrent UTI Hypertension Smoking Status: Functional Status: Sensory Deficits: History of Falls: Mobility Assistance Prior to Admission: ADLs: Minimal assistance Current Level of Assistance for Self-Care/Mobility: Cognitive Status: Allergies No Known Medication Allergies Measurements: Height: Weight: Blood Pressure: 107 mmHg / 65 mmHg BMI: Procedures Laparoscopic partial nephrectomy (06/02/2025) Immunizations No Immunizations Documented This Visit Final Med List: acetaminophen-hydroco done (Charenton 325 mg-5 mg oral tablet) 2 Tablets By Mouth every 4 hours as needed as needed for pain for 3 Days. Take 1-2 tabs every 4 hours as needed for moderate to severe pain. Not to exceed 8 tablets/day. Refills: 0. aspirin (Aspirin Low Dose) 81 Milligram By Mouth every day. cholecalciferol-menaq uinone (K2-D3 5000 125 mcg (5000 intl units)-90 mcg oral capsule) By Mouth. hydrochlorothiazide-l osartan (hydrochlorothiazide- losartan 12.5 mg-50 mg Tab) 1 Tablets By Mouth every day. metoprolol (metoprolol succinate 25 mg ER Tab) 1 Tab (more content not included)... Normal [facility] Inpatient Patient Summaryon 06-03-2025 Inpatient Patient Summary Inpatient Patient Summary [address] [address] Patient Discharge Instructions PERSON INFORMATION Name: JENNIFER ZAMORA Date of : 1970 Current Date: 06/03/2025 13:32:15 PHYSICIANS Admitting Physician: Audie MADERA, Rosmery Mckay Primary Care Physician: GRADY DAS DO PCP Comment: Discharge Diagnosis: Renal mass, right Condition at Discharge: Stable JENNIFER ZAMORA has been given the following list of follow-up instructions, prescriptions, and patient education materials: PATIENT FOLLOW-UP INFORMATION Diet: Regular Discharge Activity: Ambulate as tolerated, Arrange for a responsible adult supervision for 24 hours, Expect mild pain, Expect minimal amount of drainage and/or bleeding Discharge Restrictions: No driving, Do not operate machinery or tools Wound Care Instructions: Remove dressing as instructed Remove Your Dressing In 2 Days Call Your Doctor For: Persistent or heavy bleeding, Temperature above 101.5 degrees, Redness, swelling, or pus at operative site, Severe pain at the operative site, Persistent vomiting IF UNABLE TO CONTACT YOUR PHYSICIAN AND YOU FEEL IT IS AN EMERGENCY, GO TO THE NEAREST EMERGENCY ROOM OR CALL 911 Home Treatment: Devices/Equipment: Special Services: Additional Instructions: Replace dressing daily to keep dry and as needed until incision is closed. Primary Care Physician to provide the following pending test results: Biopsy/pathology Follow up: With: Address: When: GRADY DAS [address] [place] [address] Business (1) 06/08/2025 8:30 AM With: Address: When: Rosmery Bronson [address] [place] [phone] Business (1) Comments: Office to schedule your follow up in 2 weeks for pathology review and postop check In the event that this physician does not participate in your insurance network, please consult with your insurance company to find a nearby participating provider. Type Location Start Finish State [facility] Office Visit [facility] 06/18/2025 8:45 AM 06/18/2025 9:00 AM Confirmed Comment: EMILY Morales LIBBY L, have received the attached patient education materials/instruction s and have verbalized understanding: Patient Signature Date Clinican/Nurse Signature Date HERE ARE THE MEDICATION CHANGES THAT OCCURRED DURING YOUR HOSPITAL STAY New Medications [id number], [address], [place] [id number], [phone] acetaminophen-hydroco done (Charenton 325 mg-5 mg oral tablet) 2 Tablets By Mouth every 4 hours as needed as needed for pain for 3 Days. Take 1-2 tabs every 4 hours as needed for moderate to severe pain. Not to exceed 8 tablets/day. Refills: 0. Last Dose: ____Next Dose: ____ Medications to Continue with No Changes Other Medications aspirin (Aspirin Low Dose) 81 Milligram By Mouth every day. Last Dose: ____Next Dose: ____ cholecalciferol-menaq uinone (K2-D3 5000 125 mcg (5000 intl units)-90 mcg oral capsule) By Mouth. Last Dose: ____Next Dose: ____ hydrochlorothiazide-l osartan (hydrochlorothiazide- losartan 12.5 mg-50 mg Tab) 1 Tablets By Mouth every day. Last Dose: ____Next Dose: ____ metoprolol (metoprolol succinate 25 mg ER Tab) 1 Tablets By Mouth every day. Last Dose: ____Next Dose: ____ multivitamin (Super B Complex oral tablet) 1 Tablets By Mouth every day. Last Dose: ____Next Dose: ____ omega-3 polyunsaturated fatty acids ([place]-3 Fish Oil 1000 mg oral capsule) By Mouth. Last Dose: ____Next Dose: ____ zolpidem (zolpidem 5 mg Tab) Last Dose: ____Next Dose: ____ Comment: MEDICATION LIST PROVIDED FOR YOU IS A LIST OF YOUR CURRENT MEDICATIONS. PLEASE CARRY THIS WITH YOU AT ALL TIMES. acetaminophen-hydroco done ([place]on 325 mg-5 mg oral tablet) 2 Tablets By Mouth every 4 hours as needed as needed for pain for 3 Days. Take 1-2 tabs every 4 hours as needed for moderate to severe pain. Not to exceed 8 tablets/day. Refills: 0. aspirin (Aspirin Low Dose) 81 Milligram By Mouth every day. cholecalciferol-menaq uinone (K2-D3 5000 125 mcg (5000 intl units)-90 mcg oral capsule) By Mouth. hydrochlorothiazide-l osartan (hydrochlorothiazide- losartan 12.5 mg-50 mg Tab) 1 Tablets By Mouth every day. metoprolol (metoprolol succinate 25 mg ER Tab) 1 Tablets By Mouth every day. multivitamin (Super B Complex oral tablet) 1 Tablets By Mouth every day. omega-3 polyunsaturated fatty acids ([place]-3 Fish Oil 1000 mg oral capsule) By Mouth. zolpidem (zolpidem 5 mg Tab) Pharmacy Information: Comment: (more content not included)... Normal [facility] Interdisciplinary Note - Andres e Manageron 06-03-2025 Interdisciplinary Note - Deaf Teacher Interdisciplinary Note - Deaf Teacher Patient is awake and alert in bed, previously rounded with Urology. Patient is up in chair, feeling better. States her Dr will call to check on her this afternoon, and plan to DC home later today. Patient is independent at home with spouse and he will transport at DC. Declines any concerns or DC needs. CRM following. . PCP verified and insurance information reviewed and DME discussed. Contact information provided and white board updated. [facility] Comment on above: Result Comment: Elec tronically Signed By: Cathleen FLORENTINO, Yaneth\.br\Date and Time Signed: 06/03/25 09:39 EDT Main OR Intraoperative Recor don 06-03-2025 Main OR Intraoperative Record Main OR Intraoperative Record IntraOp Document Type FT Summary Primary Physician: Rosmery Bronson MD Finalized Date/Time: 06/03/25 09:35:39 Pt. Name: JENNIFER ZAMORA Zayra /Sex: 1970 Female Med Rec #: [id number] Physician: Rosmery Bronson MD Financial #: [id number] Pt. Type: O Room/Bed: [place] [address] Admit/Disch: 06/02/25 07:30:02 - Institution: Case Times FT Entry 1 Patient Times In Room 06/02/25 09:43:00 Out Room 06/02/25 15:25:00 Procedure Times Start 06/02/25 10:23:00 Stop 06/02/25 15:18:00 Anesthesia Times Start 06/02/25 09:43:00 Stop 06/02/25 15:25:00 Last Modified By: Shalini Tarango 06/02/25 15:25:54 General Comments: DAVINCI ROBOT PROGRAMMED TO RENAL REGION AND POSTIONED ON PATIENT'S RIGHT SIDE. DAVINCI ROBOT DOCKED AT 1043 AND UNDOCKED AT 1457. SURGEON AT [employer]CI CONSOLE FROM [id number].MISHEL SUMMERS. CLAMP TIME FROM [id number], 24 MINS AND 25 SECONDS.Corrina SUMMERS Case Attendance FT Entry 1 Entry 2 Entry 3 Case Attendee Mariajose MAGANA, Dawson Bronson MD, Shalini Balderas Role Performed Anesthesiologist Surgeon - Primary Punch Machine Hand - Primary Preparation Operator Time In 06/02/25 09:43:00 06/02/25 09:43:00 06/02/25 09:43:00 Time Out 06/02/25 14:21:00 06/02/25 15:25:00 06/02/25 15:25:00 Procedure NEPHRECTOMY PARTIAL, NEPHRECTOMY PARTIAL, NEPHRECTOMY PARTIAL, ROBOT ASSISTED(Right) ROBOT ASSISTED(Right) ROBOT ASSISTED(Right) Comments IS SUPERVISING OUT FOR LUNCH 1240- Last Modified By: Shalini Tarango Kelsie E Burgderfer, Kelsie E 06/02/25 15:31:27 06/02/25 15:31:27 06/02/25 15:31:27 Entry 4 Entry 5 Entry 6 Case Attendee Moy DRISCOLL, Porsha Singh CST, Fang Denny RN, Connie Toney Role Performed Scrub - Primary WOOL GRADER/SA Punch Machine Hand - Relief Time In 06/02/25 09:43:00 06/02/25 09:43:00 06/02/25 12:39:00 Time Out 06/02/25 15:25:00 06/02/25 15:25:00 06/02/25 13:29:00 Procedure NEPHRECTOMY PARTIAL, NEPHRECTOMY PARTIAL, NEPHRECTOMY PARTIAL, ROBOT ASSISTED(Right) ROBOT ASSISTED(Right) ROBOT ASSISTED(Right) Comments OUT FOR LUNCH 1256- OUT FOR LUNCH 1252- Last Modified By: Shalini Tarango Kelsie E Burgderfer, Kelsie E 06/02/25 15:31:27 06/02/25 15:31:27 06/02/25 15:31:27 Entry 7 Entry 8 Entry 9 Case Attendee Francisco DRISCOLL, Grady Bailey, Veronika Hensley DNP, ACTUARIAL DIRECTOR, Atkins N. Role Performed WOOL GRADER/SA Scrub - Relief ACTUARIAL DIRECTOR Time In 06/02/25 12:49:00 06/02/25 12:50:00 06/02/25 14:20:00 Time Out 06/02/25 14:04:00 06/02/25 13:51:00 06/02/25 14:57:00 Procedure NEPHRECTOMY PARTIAL, NEPHRECTOMY PARTIAL, NEPHRECTOMY PARTIAL, ROBOT ASSISTED(Right) ROBOT ASSISTED(Right) ROBOT ASSISTED(Right) Comments LUNCH RELIEF FOR IS SUPERVISING ZHENG,WOOL GRADER/SA Last Modified By: Shalini Tarango Kelsie E Burgderfer, Kelsie E 06/02/25 15:31:27 06/02/25 15:31:27 06/02/25 15:31:27 Entry 10 Case Attendee Yoselin Jacobs CRNA Role Performed RHODA Time In 06/02/25 14:53:00 Time Out 06/02/25 15:25:00 Procedure NEPHRECTOMY PARTIAL, ROBOT ASSISTED(Right) Comments IS SUPERVISING Last Modified By: Shalini Tarango 06/02/25 15:31:27 General Comments: TRENA ANDINO,[facility], IN ATTENDANCE.NAIDA Houser RN. Perioperative Protocols FT Pre-Care Text: Implements protective measures prior to operative or invasive procedure, confirms identity before the operative or invasive procedure, verifies operative procedure, surgical site, and laterality Entry 1 Procedure(s) NEPHRECTOMY PARTIAL, Patient Identity Birthday, ID Band ROBOT ASSISTED(Right) Verified (select at Check, Patient least 2): Participation Consents / H and P Anesthesia Consent, Operative Site Present Verified H&P, Surgery/Procedure Marking Verified Consent, Transfusion Consent Surgical Site Yes Laterality Verified Yes Verified Procedure Verified Yes Correct Patient Yes Position Verified Availability Equipment, Medication Prep Dry Yes Verified (If Applicable) PreOp Antibiotic Yes Time Out Mariajose MAGANA, Dawson Given Participants Audie Lambert MD, Rosmery Mckay, Shalini Tarango, Moy DRISCOLL, Francisco Cross CST, Fang Trujillo Time Out Complete 06/02/25 10:18:00 Outcomes Met? Yes Last Modified By: Shalini Tarango 06/02/25 10:37:15 Post-Care Text: The patient is free from signs and symptoms of injury caused by extraneous objects Allergy Information FT Pre-Care Text: Verifies allergies Entry 1 Allergies Reviewed? Yes Allergies Reviewed Self/Patient With Outcomes Met? Yes Last Modified By: Shalini Tarango 06/02/25 10:32:50 Post-Care Text: The patient received appropriate medication(s) safely administered during the perioperative period Surgical Procedures FT Entry 1 Procedure Description Procedure NEPHRECTOMY PARTIAL, Modifiers Right ROBOT ASSISTED Surgeon Description ROBOTIC ASSISTED RIGHT PARTIAL NEPHRECTOMY Primary Procedure Yes Primary Surgeon Audie Velasco (more content not included)... Normal [facility] eGFRon 06-03-2025 eGFR 101 mL/min/1.73 m2 Normal >=59 [facility] Comment on above: Performed By: #### 1 [id number] #### [facility] [address] [place] [address] ABO/Rhon 06-02-2025 ABO/Rh Positive Invalid Interpretation Code [facility] Comment on above: Performed By: #### [id number] #### [facility] [address] [place] [address] ABO/Rh History Checkon 06-02 ABO/Rh History Check Verified Hx Blood Type Normal [facility] Comment on above: Performed By: #### 1 [id number] #### [facility] [address] [place] [address] ABSCon 06-02-2025 ABSC Gel Interp Negative Normal [facility] Comment on above: Performed By: #### 1 [id number] #### [facility] [address] [place] [id number] Blood Bank ID#on 06-02-2025 BBID# [id number] Invalid Interpretation Code [facility] Comment on above: Performed By: #### 1 [id number] #### [facility] [address] [place] [address] Inpatient Patient Summaryon 06-02-2025 Inpatient Patient Summary Inpatient Patient Summary [address] [address] [facility] Clinical Discharge Instructions PERSON INFORMATION Name: JENNIFER ZAMORA PHYSICIANS Admitting Physician: Rosmery Bronson MD Attending Physician: Rosmery Bronson MD PCP: GRADY DAS DO Discharge Diagnosis: Comment: PATIENT EDUCATION INFORMATION Instructions: Minimally Invasive Nephrectomy, Care After Medication Leaflets: Follow up: With: Address: When: Rosmery Bronson [address], [address], [address] [phone] Business (1) Comments: Office to schedule your follow up in 2 weeks for pathology review and postop check MEDICATION LIST Medications to Continue with No Changes Other Medications aspirin (Aspirin Low Dose) 81 Milligram By Mouth every day. cholecalciferol-menaq uinone (K2-D3 5000 125 mcg (5000 intl units)-90 mcg oral capsule) By Mouth. hydrochlorothiazide-l osartan (hydrochlorothiazide- losartan 12.5 mg-50 mg Tab) 1 Tablets By Mouth every day. metoprolol (metoprolol succinate 25 mg ER Tab) 1 Tablets By Mouth every day. multivitamin (Super B Complex oral tablet) 1 Tablets By Mouth every day. omega-3 polyunsaturated fatty acids ([place]-3 Fish Oil 1000 mg oral capsule) By Mouth. zolpidem (zolpidem 5 mg Tab) Comment: Normal [facility] Main OR Intraoperative Recor don 06-02-2025 Main OR Intraoperative Record Main OR Intraoperative Record IntraOp Document Type FT Summary Primary Physician: Rosmery Bronson MD Finalized Date/Time: 06/02/25 15:32:14 Pt. Name: JENNIFER ZAMORA./Sex: 1970 Female Med Rec #: [id number] Physician: Rosmery Bronson MD Financial #: [id number] Pt. Type: A Room/Bed: [place] [address] Admit/Disch: 06/02/25 07:30:02 - Institution: Case Times FT Entry 1 Patient Times In Room 06/02/25 09:43:00 Out Room 06/02/25 15:25:00 Procedure Times Start 06/02/25 10:23:00 Stop 06/02/25 15:18:00 Anesthesia Times Start 06/02/25 09:43:00 Stop 06/02/25 15:25:00 Last Modified By: Shalini Tarango 06/02/25 15:25:54 General Comments: DAVINCI ROBOT PROGRAMMED TO RENAL REGION AND POSTIONED ON PATIENT'S RIGHT SIDE. DAVINCI ROBOT DOCKED AT 1043 AND UNDOCKED AT 1457. SURGEON AT [employer] CONSOLE FROM [id number].MISHEL SUMMERS. CLAMP TIME FROM [id number], 24 MINS AND 25 SECONDS.Corrina SUMMERS Case Attendance FT Entry 1 Entry 2 Entry 3 Case Attendee Dawson Salinas MD, Shalini Balderas Role Performed Anesthesiologist Surgeon - Primary Punch Machine Hand - Primary Preparation Operator Time In 06/02/25 09:43:00 06/02/25 09:43:00 06/02/25 09:43:00 Time Out 06/02/25 14:21:00 06/02/25 15:25:00 06/02/25 15:25:00 Procedure NEPHRECTOMY PARTIAL, NEPHRECTOMY PARTIAL, NEPHRECTOMY PARTIAL, ROBOT ASSISTED(Right) ROBOT ASSISTED(Right) ROBOT ASSISTED(Right) Comments IS SUPERVISING OUT FOR LUNCH 1240- Last Modified By: Shalini Tarango Kelsie E Burgderfer, Kelsie E 06/02/25 15:31:27 06/02/25 15:31:27 06/02/25 15:31:27 Entry 4 Entry 5 Entry 6 Case Attendee Moy WOOL GRADER, Porsha Singh CST, Fang Denny RN, Connie E Role Performed Scrub - Primary WOOL GRADER/SA Punch Machine Hand - Relief Time In 06/02/25 09:43:00 06/02/25 09:43:00 06/02/25 12:39:00 Time Out 06/02/25 15:25:00 06/02/25 15:25:00 06/02/25 13:29:00 Procedure NEPHRECTOMY PARTIAL, NEPHRECTOMY PARTIAL, NEPHRECTOMY PARTIAL, ROBOT ASSISTED(Right) ROBOT ASSISTED(Right) ROBOT ASSISTED(Right) Comments OUT FOR LUNCH 1256- OUT FOR LUNCH 1252- Last Modified By: Shalini Tarango Kelsie E Burgderfer, Kelsie E 06/02/25 15:31:27 06/02/25 15:31:27 06/02/25 15:31:27 Entry 7 Entry 8 Entry 9 Case Attendee Francisco DRISCOLL, Grady Bailey, Veronika Hensley DNP, ACTUARIAL DIRECTOR, NNubia Role Performed WOOL GRADER/SA Scrub - Relief ACTUARIAL DIRECTOR Time In 06/02/25 12:49:00 06/02/25 12:50:00 06/02/25 14:20:00 Time Out 06/02/25 14:04:00 06/02/25 13:51:00 06/02/25 14:57:00 Procedure NEPHRECTOMY PARTIAL, NEPHRECTOMY PARTIAL, NEPHRECTOMY PARTIAL, ROBOT ASSISTED(Right) ROBOT ASSISTED(Right) ROBOT ASSISTED(Right) Comments LUNCH RELIEF FOR IS SUPERVISING AMERICO CALZADA/ Last Modified By: Shalini Tarango Kelsie E Burgderfer, Kelsie E 06/02/25 15:31:27 06/02/25 15:31:27 06/02/25 15:31:27 Entry 10 Case Attendee Yoselin Jacobs CRNA Role Performed ACTUARIAL DIRECTOR Time In 06/02/25 14:53:00 Time Out 06/02/25 15:25:00 Procedure NEPHRECTOMY PARTIAL, ROBOT ASSISTED(Right) Comments IS SUPERVISING Last Modified By: Shalini Tarango 06/02/25 15:31:27 General Comments: TRENA ANDINO,[facility], IN ATTENDANCE.NAIDA Houser RN. Perioperative Protocols FT Pre-Care Text: Implements protective measures prior to operative or invasive procedure, confirms identity before the operative or invasive procedure, verifies operative procedure, surgical site, and laterality Entry 1 Procedure(s) NEPHRECTOMY PARTIAL, Patient Identity Birthday, ID Band ROBOT ASSISTED(Right) Verified (select at Check, Patient least 2): Participation Consents / H and P Anesthesia Consent, Operative Site Present Verified H&P, Surgery/Procedure Marking Verified Consent, Transfusion Consent Surgical Site Yes Laterality Verified Yes Verified Procedure Verified Yes Correct Patient Yes Position Verified Availability Equipment, Medication Prep Dry Yes Verified (If Applicable) PreOp Antibiotic Yes Time Out Mariajose MAGANA, Dawson Given Participants Audie Lambert MD, Rosmery Mckay, Shalini Tarango McClain CST, Francisco Cross CST, Fang Trujillo Time Out Complete 06/02/25 10:18:00 Outcomes Met? Yes Last Modified By: Shalini Tarango 06/02/25 10:37:15 Post-Care Text: The patient is free from signs and symptoms of injury caused by extraneous objects Allergy Information FT Pre-Care Text: Verifies allergies Entry 1 Allergies Reviewed? Yes Allergies Reviewed Self/Patient With Outcomes Met? Yes Last Modified By: Shalini Tarango 06/02/25 10:32:50 Post-Care Text: The patient received appropriate medication(s) safely administered during the perioperative period Surgical Procedures FT Entry 1 Procedure Description Procedure NEPHRECTOMY PARTIAL, Modifiers Right ROBOT ASSISTED Surgeon Description ROBOTIC ASSISTED RIGHT PARTIAL NEPHRECTOMY Primary Procedure Yes Primary Surgeon Audie Velasco (more content not included)... Normal [facility] Main OR PACU I Recordon 05-15 Main OR PACU I Record Main OR PACU I Rec ord PACU Phase I Document Type FT Summary Primary Physician: Rosmery Bronson MD Finalized Date/Time: 06/02/25 16:35:36 Pt. Name: JENNIFER ZAMORA Zayra Randall/Sex: 1970 Female Med Rec #: [id number] Physician: Rosmery Bronson MD Financial #: [id number] Pt. Type: O Room/Bed: N317 Admit/Disch: 06/02/25 07:30:02 - Institution: Case Times PACU I FT Pre-Care Text: Identifies barriers to communication and implements measures to provide psychological support Develops individualized plan of care, and ensures continuity of care Maintains patient's dignity and privacy, and maintains patient confidentiality Identifies and reports philosophical, cultural, and spiritual beliefs and values Identifies individual values and wishes concerning care Implements aseptic technique, and administers prescribed antibiotic therapy and immunizing agents as ordered Evaluates postoperative tissue perfusion Implements thermoregulation measures, and monitors body temperature Evaluates postoperative respiratory status Evaluates postoperative cardiac status Evaluates postoperative neurological status Assesses pain control, collaborated in initiating patient-controlled analgesia and implements alternative methods of pain control Verifies allergies, administers prescribed medications and solutions, evaluates response to medications Entry 1 In PACU I 06/02/25 15:28:00 Discharge from PACU 06/02/25 16:00:00 I Outcomes Met? Yes Last Modified By: Mable Obregon RN 06/02/25 16:35:19 Post-Care Text: The patient demonstrates knowledge of the expected response to the operative or invasive procedure The patient's care is consistent with the individualized perioperative plan of care The patient's right to privacy is maintained The patient's value system, lifestyle, ethnicity, and culture are considered, respected, and incorporated into the perioperative plan of care The patient participates in decisions affecting his or her perioperative plan of care The patient is free from signs and symptoms of infection The patient has wound/tissue perfusion consistent with or improved from baseline levels established preoperatively The patient is at or returning to normothermia at the conclusion of the immediate postoperative period The patient's respiratory function is consistent with or improved from baseline levels established preoperatively The patient's cardiovascular status is consistent with or improved from baseline levels established preoperatively The patient's cardiovascular status is consistent with or improved from baseline levels established preoperatively The patient demonstrates and/or reports adequate pain control throughout the perioperative period The patient received appropriate medication(s), safely administered during the perioperative period Acuity Level PACU I FT Entry 1 Start Time 06/02/25 15:28:00 Stop Time 06/02/25 16:00:00 Acuity Level Acuity Level I Last Modified By: Mable Obregon RN 06/02/25 16:35:32 Finalized By: Mable Obregon RN Document Signatures Signed By: Mable Obregon RN 06/02/25 16:35 Normal [facility] Main OR Preoperative Recordo n 06-02-2025 Main OR Preoperative Record Main OR Preoperative Record PreOp Document Type FT Summary Primary Physician: Rosmery Bronson MD Finalized Date/Time: 06/02/25 10:33:51 Pt. Name: EMILY JENNIFER Calvillo.O.B./Sex: 1970 Female Med Rec #: [id number] Physician: Rosmery Bronson MD Financial #: [id number] Pt. Type: Room/Bed: [place] [address] Admit/Disch: 06/02/25 07:30:02 - Institution: Case Times PreOp FT Pre-Care Text: Verifies consent for planned procedure, identifies individual values and wishes concerning care, includes family members in perioperative teaching Entry 1 Patient Times. In Pre Surgery 06/02/25 07:35:00 Out Pre Surgery 06/02/25 09:41:00 Outcomes Met? Yes Last Modified By: Shalini Tarango 06/02/25 10:33:50 Post-Care Text: The patient participates in decisions affecting his or her perioperative plan of care Finalized By: Shalini Tarango Document Signatures Signed By: Shalini Tarango 06/02/25 10:33 Normal [facility] Operative Reporton Operative Report Operative Report Patient: JENNIFER ZAMORA Age: 54 years Sex: Female : 1970 Associated Diagnoses: None Author: Rosmery Bronson MD Procedure Procedure Date: 06/02/2025. Confirmed: patient, procedure, side, site, safety procedures followed. Performed by: Rosmery Bronson MD, anesthesiologist (CHINO King). Type of procedure: Robotic Laparascopic assisted right partial nephrectomy, Intraoperative ultrasound. Informed consent: signed by patient. Indication: Indications: 54 year old female found to have a 1.7x1.6 cm right upper pole renal mass concerning for malignancy. All treatment options were discussed. Risks, benefits, goals, alternatives, possible complications were discussed with patient including but not limited to bleeding, pain, infection, damage to surrounding structures/organs, urine leak, radical nephrectomy, DVTs, positioning injuries, and anesthesia risks, among others. Patient elected for above mentioned procedures. Consent was signed. Patient elected to proceed.. Findings: 1.2 x 1.8 cm right superior posterior renal mass removed, margins visually negative. . Procedure tolerated: well. Specimen: sent to pathology, Right renal mass. Complications: None. Pre op diagnosis: Right renal mass Post op diagnosis: same Anesthesia: General ETT Blood loss: 15 mL Fluids: 2 L Crystalloid Drains: Fausto drain, maldonado catheter Urine output: 400 cc Clamp time: 24 minutes. DVT prophylaxis: SQH, SCDs DESCRIPTION OF PROCEDURE: After informed consent was obtained, the patient was taken to the operating room. After successful induction of general anesthesia ETT, a preoperative dose of antibiotics was given. Subcutaneous heparin and Tylenol was given preoperatively. The patient was placed in supine position with flexion of the bed, sequential compression devices were placed on bilateral lower extremities. Maldonado catheter was placed. Patient was then placed in left lateral decubitus position, right side up. Pressure points were padded. Axillary roll was placed. Patient was then prepped, draped in usual sterile standard fashion. An operative timeout was performed. The robot was prepped, draped, and calibrated. Veress needle was used to obtain pneumo-peritoneum successfully. We entered the intra-abdominal cavity under direct visualization and inspected to ensure there was no undue trauma. The medial camera port placement template was used and all robotic ports were placed under direct visualization along the right midclavicular line along lateral rectus. 5 mm subxiphoid printing assistant port for liver retraction and a 12 mm air seal printing assistant port superior to the umbilicus in the midline were placed. The Robot was docked. There were some right lower quadrant bowel adhesions to the abdominal wall that were taken down sharply. The right colon was mobilized along the white line of Toldt and reflected medially. The medial plane was developed using a combination of blunt dissection and electrocautery. We identified the duodenum and reflected it medially. The liver was reflected superiorly. Adhesions under the liver due to prior cholecystectomy. Liver retractor placed. The right gonadal vein was identified coursing to the IVC. This was dissected away from the kidney and preserved. The ureter was identified. The retroperitoneal space posterior to the kidney was developed. I then completed a careful hilar dissection, noting a single artery and 2 veins. I made an incision on the Gerota's fascia, which is noted to be quite thin on the anterior kidney surface. The kidney was defatted circumferentially to allow full mobilization to reach the upper pole posterior tumor. Fat was maintained overlying the tumor. Laparoscopic intraoperative ultrasound was used to visualize the mass and measure as above. I outlined the margins of dissection. Bipolar electrocautery and surgical was placed on the liver due to minor bleeding from retraction. There was no active bleeding afterwards. Liver was noted to be fatty. 2 bulldog clamps were placed on the renal artery. The kidney was manipulated to be able to adequately visualize the tumor. We cut out the tumor entirely down to the tumor base. No tumor spillage was seen. The tumor was placed in the endocatch bag. We closed the resection defect using 3-0 V loc suture in a running fashion, followed by 0 Vicryl interrupted stitches with hem-o-lexx and Lapra-ty at the ends. The renal artery clamps were removed. Pneumoperitoneum was lowered and a careful search for bleeding was then performed. We then irrigated the abdomen there was no evidence of hilar bleeding. The surgical bed was inspected and it was hemostatic. All needles were removed from the body and needle count was correct. Floseal was placed on the renal closure. 3-0 vlok was used to close Gerota's fascia over kidney. A FAUSTO drain was placed via our lower most lateral port. This was secured at the skin level with a nylon stitch. The robot was undocke (more content not included)... Normal [facility] Comment on above: Result Comment: Elec tronically Signed By: Audie MADERA, Rosmery Mckay\.br\Date and Time Signed: 06/02/25 15:55 EDT Outpatient Surgery Discharge Instructionon 06-02-2025 Outpatient Surgery Discharge Instruction Outpatient Surgery Discharge Instruction [place] [id number] Patient Discharge Instructions PERSON INFORMATION Name: JENNIFER ZAMORA Date of : 1970 Current Date: 06/02/2025 16:01:01 PHYSICIANS Admitting Physician: Rosmery Bronson MD Discharge Diagnosis: JENNIFER ZAMORA has been given the following list of follow-up instructions, prescriptions, and patient education materials: PATIENT FOLLOW-UP INFORMATION Diet: Regular Discharge Activity: Ambulate as tolerated, Expect mild pain, Expect minimal amount of drainage and/or bleeding, Do not lift more than 5 lbs Discharge Restrictions: No driving, Do not operate machinery or tools Call Your Doctor For: Persistent or heavy bleeding, Temperature above 101.5 degrees, Redness, swelling, or pus at operative site, Severe pain at the operative site, Persistent vomiting Wound Care Instructions: Keep incision dry Remove Your Dressing In 2 Days IF UNABLE TO CONTACT YOUR PHYSICIAN AND YOU FEEL IT IS AN EMERGENCY, GO TO THE NEAREST EMERGENCY ROOM OR CALL 911 I, JENNIFER ZAMORA, have received the attached patient education materials/instruction s and have verbalized understanding: May we do a follow up call? Yes No I was present when discharge instructions were given Patient Signature Date Clinican/Nurse Signature Date Follow up: With: Address: When: Rosmery Bronson [address], [place] [address], [address] [phone] Business (1) Comments: Office to schedule your follow up in 2 weeks for pathology review and postop check Pharmacy Information: You may receive a survey from [employer] asking you to rate your care experience. Your feedback is important and will help us understand what we do well and how we can improve the quality of care we provide to you, your loved ones and our community. It???s an honor to serve you. Thank you for choosing [facility] HERE ARE THE MEDICATION CHANGES THAT OCCURRED DURING YOUR HOSPITAL STAY Medications to Continue with No Changes Other Medications aspirin (Aspirin Low Dose) 81 Milligram By Mouth every day. cholecalciferol-menaq uinone (K2-D3 5000 125 mcg (5000 intl units)-90 mcg oral capsule) By Mouth. hydrochlorothiazide-l osartan (hydrochlorothiazide- losartan 12.5 mg-50 mg Tab) 1 Tablets By Mouth every day. metoprolol (metoprolol succinate 25 mg ER Tab) 1 Tablets By Mouth every day. multivitamin (Super B Complex oral tablet) 1 Tablets By Mouth every day. omega-3 polyunsaturated fatty acids ([place]-3 Fish Oil 1000 mg oral capsule) By Mouth. zolpidem (zolpidem 5 mg Tab) PATIENT EDUCATION INFORMATION Instructions: Minimally Invasive Nephrectomy, Care After This sheet gives you information about how to care for yourself after your procedure. Your health care provider may also give you more specific instructions. If you have problems or questions, contact your health care provider. What can I expect after the procedure? After the procedure, it is common to have: ??? Pain. ??? Soreness and numbness in the area around your incisions. Follow these instructions at home: Medicines ??? Take fukq-hwm-hyleqoe and prescription medicines only as told by your health care provider. ??? Avoid using NSAIDs regularly over a long period of time. These include aspirin and ibuprofen. Doing so may damage your remaining kidney. -Tylenol 650-1000 mg every 6 hours as needed for pain. [place] for severe uncontrolled pain. These have 325 mg of Tylenol. Do not exceed 4000 mg Tylenol (acetaminophen) in 24 hours. ??? Ask your health care provider if the medicine prescribed to you: ? Requires you to avoid driving or using machinery. ? Can cause constipation. You may need to take these actions to prevent or treat constipation: ? Drink enough fluid to keep your urine pale yellow. ? Take ydui-adu-gcvxktb or prescription medicines - Colace/Senna ? Eat foods that are high in fiber, such as beans, whole grains, and fresh fruits and vegetables. ? Limit foods that are high in fat and processed sugars, such as fried or sweet foods. Incision care and drain care ??? Follow instructions from your health care provider about how to take care of your incisions. Make sure you: ? Wash your hands with soap and water for at least 20 seconds before and after you change your bandage (dressing). If soap and water are not available, use hand lump maker. ? Change your dressing as told by your health care provider- daily and as needed to keep dry, and until incisio (more content not included)... Normal [facility] UA with Cult Rflxon 06-02-20 25 Color (U) Light-Yellow Normal Yellow [facility] Comment on above: Result Comment: Micr oscopic readings are only performed on those samples that meet specific criteria set forth by [facility]. Performed By: #### 4 [id number] #### [facility] [address] [place] [address] Glucose (U) [Mass/Vol] Negative Normal Negative [facility] Comment on above: Performed By: #### 4 [id number] #### [facility] [address] [place] [address] Ketones Ql (U) Negative Normal Negative [facility] Comment on above: Performed By: #### 4 [id number] #### [facility] [address] [place] [address] UA Blood Negative Normal Negative [facility] Comment on above: Performed By: #### 4 [id number] #### [facility] [address] [place] [address] UA Clarity Clear Normal Clear [facility] Comment on above: Performed By: #### 4 [id number] #### [facility] [address] [place] [address] UA Leuk Est Negative Normal Negative [facility] Comment on above: Performed By: #### 4 [id number] #### [facility] [address] [place] [address] UA Nitrite Negative Normal Negative [facility] Comment on above: Performed By: #### 4 [id number] #### [facility] [address] [place] [address] UA pH 7.0 Invalid Interpretation Code 5.0-9.0 [facility] Comment on above: Performed By: #### 4 [id number] #### [facility] [address] [place] [address] UA Protein Negative Normal Negative [facility] Comment on above: Performed By: #### 4 [id number] #### [facility] [address] [place] [address] UA Spec Grav 1.013 Invalid Interpretation Code 1.005-1.030 [facility] Comment on above: Performed By: #### 4 [id number] #### [facility] [address] [place] [address] UA Urobilinogen Negative Normal Negative [facility] Comment on above: Performed By: #### 4 [id number] #### [facility] [address] [place] [address] Urobilinogen (U) [Mass/Vol] Negative Normal Negative [facility] Comment on above: Performed By: #### 4 [id number] #### [facility] [address] [place] [address] UA Spec Desc Maldonado Normal [facility] Comment on above: Performed By: #### 4 [id number] #### [facility] [address] [place] [address] BMPon 05-18-2025 Anion gap [Moles/Vol] 10 mmol/L Normal 6-16 [facility] Comment on above: Performed By: #### 2 [id number] #### [facility] [address] [place] [address] BUN/Creat Ratio 30 No Units High 10-20 [facility] Comment on above: Performed By: #### 2 [id number] #### [facility] [address] [place] [address] Calcium [Mass/Vol] 9.8 mg/dL Normal 8.9-11.1 [facility] Comment on above: Performed By: #### 2 [id number] #### [facility] [address] [place] [address] Chloride [Moles/Vol] 100 mmol/L Low 101-111 [facility] Comment on above: Performed By: #### 2 [id number] #### [facility] [address] [place] [address] CO2 [Moles/Vol] 32 mmol/L High 21-31 [facility] Comment on above: Performed By: #### 2 [id number] #### [facility] [address] [place] [address] Creatinine [Mass/Vol] 0.7 mg/dL Normal 0.5-1.3 [facility] Comment on above: Performed By: #### 2 [id number] #### [facility] [address] [place] [address] Glucose [Mass/Vol] 84 mg/dL Normal 55-199 [facility] Comment on above: Performed By: #### 2 [id number] #### [facility] [address] [place] [address] Potassium [Moles/Vol] 3.3 mmol/L Low 3.5-5.3 [facility] Comment on above: Performed By: #### 2 [id number] #### [facility] [address] [place] [address] Sodium [Moles/Vol] 139 mmol/L Normal 135-145 [facility] Comment on above: Performed By: #### 2 [id number] #### [facility] [address] [place] [address] Urea nitrogen [Mass/Vol] 21 mg/dL Normal 5-21 [facility] Comment on above: Performed By: #### 2 [id number] #### [facility] [address] [place] [address] CBC w/ Auto Diffon 5 Basophil Absolute 0.0 E9/L Normal 0.0-0.2 [facility] Comment on above: Performed By: #### 2 [id number] #### [facility] [address] [place] [address] Basophils/100 WBC (Bld) 0.4 % Normal 0.0-2.0 [facility] Comment on above: Performed By: #### 2 [id number] #### [facility] [address] [place] [address] Eos Absolute 0.0 E9/L Normal 0.0-0.5 [facility] Comment on above: Performed By: #### 2 [id number] #### [facility] [address] [place] [address] Eosinophils/100 WBC (Bld) 0.7 % Normal 0.0-8.0 [facility] Comment on above: Performed By: #### 2 [id number] #### [facility] [address] [place] [address] Erythrocyte distribution width (RBC) [Ratio] 12.6 % Normal 10.9-14.2 [facility] Comment on above: Performed By: #### 2 [id number] #### [facility] [address] [place] [address] Hematocrit (Bld) [Volume fraction] 41.3 % Normal 34.0-46.0 [facility] Comment on above: Performed By: #### 2 [id number] #### [facility] [address] [place] [address] Hemoglobin (Bld) [Mass/Vol] 14.6 g/dL Normal 12.0-16.0 [facility] Comment on above: Performed By: #### 2 [id number] #### [facility] [address] [place] [address] Lymph Absolute 1.6 E9/L Normal 1.0-4.0 [facility] Comment on above: Performed By: #### 2 [id number] #### [facility] [address] [place] [address] Lymphocytes/100 WBC (Bld) 25.1 % Normal 14.0-50.0 [facility] Comment on above: Performed By: #### 2 [id number] #### [facility] [address] [place] [address] MCH (RBC) [Entitic mass] 32.3 pg Normal 27.0-34.0 [facility] Comment on above: Performed By: #### 2 [id number] #### [facility] [address] [place] [address] MCHC (RBC) [Mass/Vol] 35.3 g/dL Normal 31.4-36.0 [facility] Comment on above: Performed By: #### 2 [id number] #### [facility] [address] [place] [address] MCV (RBC) [Entitic vol] 91.4 fL Normal 80.0-100.0 [facility] Comment on above: Performed By: #### 2 [id number] #### [facility] [address] [place] [address] [place] Absolute 0.4 E9/L Normal 0.2-1.0 [facility] Comment on above: Performed By: #### 2 [id number] #### [facility] [address] [place] [address] Monocytes/100 WBC (Bld) 5.4 % Normal 4.0-14.0 [facility] Comment on above: Performed By: #### 2 [id number] #### [facility] [address] [place] [address] Neutro Absolute 4.4 E9/L Normal 2.0-7.5 [facility] Comment on above: Performed By: #### 2 [id number] #### [facility] [address] [place] [address] Neutro Auto 68.4 % Normal 36.0-75.0 [facility] Comment on above: Performed By: #### 2 [id number] #### [facility] [address] [place] [address] Platelet 334.0 E9/L Normal 150.0-500.0 [facility] Comment on above: Performed By: #### 2 [id number] #### [facility] [address] [place] [address] Platelet mean volume (Bld) [Entitic vol] 7.7 fL Normal 6.4-10.8 [facility] Comment on above: Performed By: #### 2 [id number] #### [facility] [address] [place] [address] RBC 4.5 E12/L Normal 4.3-5.9 [facility] Comment on above: Performed By: #### 2 [id number] #### [facility] [address] [place] [address] WBC 6.5 E9/L Normal 4.0-11.0 [facility] Comment on above: Performed By: #### 2 [id number] #### [facility] [address] [place] [address] PT & PTTon 05-18-2025 INR Coag (PPP) [Relative time] 0.97 {INR} Invalid Interpretation Code [facility] Comment on above: Result Comment: INR results are specifically intended to assess patients stabilized on long-term Anticoagulation therapy suggested INR???s ???Less Intensive Anticoagulation??? 2.0 ??? 3.0 Conventional Range 3.0 ??? 4.5 Performed By: #### 1 [id number] #### [facility] [address] [place] [address] PT 10.9 second(s) Normal 9.4-12.5 [facility] Comment on above: Result Comment: 15 d ays - 4 weeks 1 - 5 months 6 -11 months 1 ??? 5 years 6 ??? 10 years 11 -17 years Mean: 11.2 (9.5 ??? 12.6) Mean: 11.0 (9.7 ??? 12.8) Mean: 11.0 (9.8 ??? 13.0) Mean: 11.3 (9.9 ??? 13.4) Mean: 11.7 (10.0 ??? 14.6) Mean: 11.8 (10.0 - 14.1) Pediatric Reference ranges were obtained from a study by martine Ahumada prepared from 1437 samples obtained at 7 different centers using the same coagulation reagent and instrumentation as [facility]. Currently there are no coagulation studies available worldwide for children to 14 days, and no normal ranges. Performed By: #### 1 [id number] #### [facility] [address] [place] [address] PTT 29.9 second(s) Normal 25.1-36.5 [facility] Comment on above: Result Comment: Para meter 15 days - 4 weeks 1 - 5 months 6 - 11 months 1 - 5 years 6 - 10 years 11 - 17 years PTT Mean: 35.4 (27.6-45.6) Mean: 33.5 (24.8-40.7) Mean: 32.4 (25.1-40.7) Mean: 31.6 (24.0-39.2) Mean: 31.6 (26.9-38.7) Mean: 31.0 (24.6-38.4) Pediatric Reference ranges were obtained from a study by martine Ahumada prepared from 1437 samples obtained at 7 different centers using the same coagulation reagent and instrumentation as [facility]. Currently there are no coagulation studies available worldwide for children to 14 days, and no normal ranges. Heparin therapeutic range (represented by Anti-Factor Xa activity of 0.2 - 0.4 U/mL) corresponds to PTT of 56.6 - 109.0 sec. Performed By: #### 1 [id number] #### [facility] [address] [place] [address] UA with Cult Rflxon 05-18-20 25 Color (U) Light-Yellow Normal Yellow [facility] Comment on above: Result Comment: Micr oscopic readings are only performed on those samples that meet specific criteria set forth by [facility]. Performed By: #### 4 [id number] #### [facility] [address] [place] [address] Glucose (U) [Mass/Vol] Negative Normal Negative [facility] Comment on above: Performed By: #### 4 [id number] #### [facility] [address] [place] [address] Ketones Ql (U) Negative Normal Negative [facility] Comment on above: Performed By: #### 4 [id number] #### [facility] [address] [place] [address] UA Blood Negative Normal Negative [facility] Comment on above: Performed By: #### 4 [id number] #### [facility] [address] [place] [address] UA Clarity Clear Normal Clear [facility] Comment on above: Performed By: #### 4 [id number] #### [facility] [address] [place] [address] UA Leuk Est Negative Normal Negative [facility] Comment on above: Performed By: #### 4 [id number] #### [facility] [address] [place] [address] UA Nitrite Negative Normal Negative [facility] Comment on above: Performed By: #### 4 [id number] #### [facility] [address] [place] [address] UA pH 7.0 Invalid Interpretation Code 5.0-9.0 [facility] Comment on above: Performed By: #### 4 [id number] #### [facility] [address] [place] [address] UA Protein Negative Normal Negative [facility] Comment on above: Performed By: #### 4 [id number] #### [facility] [address] [place] [address] UA Spec Grav 1.011 Invalid Interpretation Code 1.005-1.030 [facility] Comment on above: Performed By: #### 4 [id number] #### [facility] [address] [place] [address] UA Urobilinogen Negative Normal Negative [facility] Comment on above: Performed By: #### 4 [id number] #### [facility] [address] [place] [address] Urobilinogen (U) [Mass/Vol] Negative Normal Negative [facility] Comment on above: Performed By: #### 4 [id number] #### [facility] [address] [place] [address] UA Spec Desc Clean Catch Normal [facility] Comment on above: Performed By: #### 4 [id number] #### [facility] [address] [place] [address] eGFRon 05-18-2025 eGFR 101 mL/min/1.73 m2 Normal >=59 [facility] Comment on above: Performed By: #### 1 [id number] #### [facility] [address] [place] [address] Laboratory - Chemistry and C hemistry - challengeOrdered By: Shasha Isaac on 05-05-2025 Bilirubin Ql (U) Negative [facility] Glucose (U) [Mass/Vol] Negative [facility] Ketones Ql (U) Negative [facility] pH (U) 7.0 [pH] [facility] Specific gravity (U) [Rel density] 1.020 [facility] - Specimen inform ationOrdered By: Shasha Isaac on 05-05-2025 Appearance (U) clear [facility] Color (U) yellow [facility] - UrinalysisOrder ed By: Shasha Isaac on 05-05-2025 Leukocyte esterase Test strip Ql (U) Negative [facility] Nitrite Ql (U) Negative [facility] Protein Ql (U) Negative [facility] No Panel InformationOrdered By: Shasha Isaac on 05-05-2025 Urine Occult Blood Negative [facility] Urine Urobilinogen 0.2EU/dL [facility] Ambulatory Visit Summaryon 0 04-27-2025 Ambulatory Visit Summary Ambulatory Visit Summary JENNIFER ZAMORA :1970 Visit Date:04/27/2025 Ambulatory Visit Instructions Your Diagnosis Renal mass Unspecified urethral stricture, female Your Care Team Attending Physician - Rosmery Bronson MD Primary Care Physician - GRADY DAS DO Referring Physician - GRADY DAS DO This Is Your Medications List Contact prescribing physician if questions or concerns aspirin (aspirin 81 mg Oral EC Tab) cholecalciferol-menaq uinone (K2-D3 5000 125 mcg (5000 intl units)-90 mcg oral capsule) hydrochlorothiazide-l osartan (hydrochlorothiazide- losartan 12.5 mg-50 mg Tab) metoprolol (Toprol XL 25 mg Tab-ER) multivitamin (Super B Complex oral tablet) omega-3 polyunsaturated fatty acids ([place]-3 Fish Oil 1000 mg oral capsule) Procedures Performed Appendectomy, Hysterectomy, Tubal ligation. Discharge Vitals Temperature (Oral) 37 ???C Heart Rate (Peripheral) 80 Respiratory Rate 16 Blood Pressure 130/74 Height 169 cm Height 67 in Weight 73.3 kg Weight 161.599 lb BMI 25.66 What to do next You Need to Schedule the Following Appointments Follow Up with Audie MADERA, Rosmery Mckay, URL, URO When: Where: Medications What How Much When Instructions Unchanged aspirin (aspirin 81 mg Oral EC Tab) By Mouth Every day Contact prescribing physician if questions or concerns Unchanged cholecalciferol-menaq uinone (K2-D3 5000 125 mcg (5000 intl units)-90 mcg oral capsule) By Mouth Contact prescribing physician if questions or concerns Unchanged hydrochlorothiazide-l osartan (hydrochlorothiazide- losartan 12.5 mg-50 mg Tab) By Mouth Every day Contact prescribing physician if questions or concerns Unchanged metoprolol (Toprol XL 25 mg Tab-ER) By Mouth Every day Contact prescribing physician if questions or concerns Unchanged multivitamin (Super B Complex oral tablet) 1 Tablets By Mouth Every day Contact prescribing physician if questions or concerns Unchanged omega-3 polyunsaturated fatty acids ([place]-3 Fish Oil 1000 mg oral capsule) By Mouth Contact prescribing physician if questions or concerns Allergies No Known Medication Allergies Problems Ongoing - Any problem that you are currently receiving treatment for. Hypertension Recurrent UTI Renal mass Unspecified urethral stricture, female Patient Survey You may receive a survey via text or e-mail asking about your office visit. Please share your experience with us by completing your survey. We appreciate your feedback and thank you for choosing us for your care. Education Materials Renal Mass A renal mass is an abnormal growth in the kidney. It may be found while performing an MRI, CT scan, or ultrasound to evaluate other problems of the abdomen. A renal mass that is cancerous (malignant) may grow or spread quickly. Others are not cancerous (benign). Renal masses include: ??? Tumors. These may be malignant or benign. ? The most common type of kidney cancer in adults is renal cell carcinoma. In children, the most common type of kidney cancer is Wilms tumor. ? The most common benign tumors of the kidney include renal adenomas, oncocytomas, and angiomyolipoma (AML). ??? Cysts. These are fluid-filled sacs that form on or in the kidney. What are the causes? Certain types of cancers, infections, or injuries can cause a renal mass. It is not always known what causes a cyst to develop in or on the kidney. What are the signs or symptoms? Often, a renal mass does not cause any signs or symptoms; most kidney cysts do not cause symptoms. How is this diagnosed? Your health care provider may recommend tests to diagnose the cause of your renal mass. These tests may be done if a renal mass is found: ??? Physical exam. ??? Blood tests. ??? Urine tests. ??? Imaging tests, such as ultrasound, CT scan, or MRI. ??? Biopsy. This is a small sample that is removed from the renal mass and tested in a lab. The exact tests and how often they are done will depend on: ??? The size and appearance of the renal mass. ??? Risk factors or medical conditions that increase your risk for problems. ??? Any symptoms associated with the renal mass, or concerns that you have about it. Tests and physical exams may be done once, or they may be done regularly for a period of time. Tests and exams that are done regularly will help monitor whether the mass is growing and beginning to cause problems. How is this treated? Treatment is not always needed for this condition. Your health care provider may recommend careful monitoring and regular tests and exams. Treatment will depend on the cause of the mass. Treatment for a cancerous renal mass may include surgical removal, chemotherapy, radiation, or immunotherapy. Most kidney cysts do not need to be treated. Follow these instructions at home: What you need to do at home will depend on the cause of the mass. Follow t (more content not included)... Normal [facility] MRI ABDOMEN W WO CONTRAST MR CPon 12-11-2024 MRI ABDOMEN W WO CONTRAST MRCP ADDENDUM: This exam was ordered with a history of biliary pancreatitis. On 12/11/2024, a request was made from the ordering clinician to evaluate for a possible renal mass. No prior imaging is available, and there is no provided history of a renal mass. Despite lack of information, a review of imaging demonstrates an indeterminate lesion at the upper pole of the right kidney. Approximate measurements are 1.6 x 1.5 x 1.7 cm. This is very difficult to evaluate due to motion artifact as described in the original report. This appears to represent a complex cystic lesion. Postcontrast enhancement is strongly suspected despite motion suggesting this may either be a Bosniak III or Bosniak IV lesion. Recommend comparison to any prior imaging given additional history. Urology consultation would also be recommended. Repeat imaging may be considered with multiphase CT for further evaluation given the degree of motion on MRI. A repeat MRI could be considered if the patient's clinical condition has improved and breath holding instructions can be followed for improved MRI. Electronically Signed by: AMNA GUAMAN on SunDec 11, 2024 7:23:05 AM EST EXAMINATION: MRI OF THE ABDOMEN WITH AND WITHOUT CONTRAST AND MRCP 12/02/2024 7:44 am TECHNIQUE: Multiplanar multisequence MRI of the abdomen was performed with and without the administration of intravenous contrast. After initial T2 axial and coronal images, thick slab, thin slab and 3D coronal MRCP sequences were obtained without the administration of intravenous contrast. MIP images are provided for review. COMPARISON: None HISTORY: ORDERING SYSTEM PROVIDED HISTORY: biliary pancreatitis TECHNOLOGIST PROVIDED HISTORY: Surgery is scheduled for this afternoon. biliary pancreatitis Reason for Exam: biliary pancreatitis, renal mass FINDINGS: Technical Factors: Arterial phase timing is optimal. Moderate patient motion on multiple imaging sequences somewhat limiting evaluation. Parenchyma: There is no inflammation or edema of the pancreas to suggest acute pancreatitis. No sequela of chronic pancreatitis appreciated. Mass: No cystic or solid pancreatic lesion. Pancreatic Duct: The pancreatic duct is normal. Biliary ducts: Diffuse pattern of mild biliary dilatation centrally and involving common hepatic and common bile duct. The CBD measures up to 7 mm. No intraluminal filling defect. No stricture. Gallbladder: Multiple stones are observed within the gallbladder lumen. No mucosal thickening or pericholecystic fluid. Other: None IMPRESSION: 1. Cholelithiasis with no evidence of acute cholecystitis. 2. Mild biliary dilatation with no evidence of choledocholithiasis. 3. Normal MRI appearance of the pancreas. Interpreted by: Amna Guaman IV, MD Signed by: Amna Guaman IV, MD 12/11/24 Edited Result - FINAL Normal [facility] Basic Metab w/rfx MGon 12-03 Anion gap [Moles/Vol] 11 mmol/L Normal 9-16 [facility] Comment on above: Performed By: #### B MPX, CDP #### [facility] [address] [place] [address] [employer] Operator: Velasquez Sears MD Calcium [Mass/Vol] 9.5 mg/dL Normal 8.6-10.4 [facility] Comment on above: Performed By: #### B MPX, CDP #### [facility] [address] [place] [address] [employer] Operator: Velasquez Sears MD Chloride [Moles/Vol] 103 mmol/L Normal 98-107 [facility] Comment on above: Performed By: #### B MPX, CDP #### [facility] [address] [place] [address] [employer] Operator: Velasquez Sears MD CO2 [Moles/Vol] 26 mmol/L Normal 20-31 [facility] Comment on above: Performed By: #### B MPX, CDP #### [facility] [address] [place] [address] [employer] Operator: Velasquez Sears MD Creatinine [Mass/Vol] 0.9 mg/dL Normal 0.50-0.90 [facility] Comment on above: Performed By: #### B JOSSIEX, CDP #### [facility] [address] [place] [address]. [place] [address] [employer] Operator: Velasquez Sears MD GFR/1.73 sq M.predicted among non-blacks MDRD (S/P/Bld) [Vol rate/Area] 80 mL/min/{1.73_m2} Normal >60 [facility] Comment on above: Result Comment: These results are not intended for use in patients <18 years of age. eGFR results are calculated without a race factor using the 2020 CKD-EPI equation. Careful clinical correlation is recommended, particularly when comparing to results calculated using previous equations. The CKD-EPI equation is less accurate in patients with extremes of muscle mass, extra-renal metabolism of creatine, excessive creatine ingestion, or following therapy that affects renal tubular secretion. Performed By: #### B MPX, CDP #### [facility] [address] [place] [address] [employer] Operator: Velasquez Sears MD Glucose [Mass/Vol] 150 mg/dL High 74-99 [facility] Comment on above: Performed By: #### B MPX, CDP #### [facility] [address] [place] [address] [employer] Operator: Velasquez Sears MD Potassium [Moles/Vol] 3.8 mmol/L Normal 3.7-5.3 [facility] Comment on above: Performed By: #### B MPX, CDP #### [facility] [address] [place] [address] [employer] Operator: Velasquez Sears MD Sodium [Moles/Vol] 140 mmol/L Normal 136-145 [facility] Comment on above: Performed By: #### B MPX, CDP #### [facility] [address] [place] [address] [employer] Operator: Velasquez Sears MD Urea nitrogen [Mass/Vol] 13 mg/dL Normal 6-20 [facility] Comment on above: Performed By: #### B MPX, CDP #### [facility] [address] [place] [address] [employer] Operator: Velasquez Sears MD Basic Metabolic Panel w/ Ref bruce to on 12-03-2024 Anion gap [Moles/Vol] 11 mmol/L 9 - 16 mmol/L [facility] Calcium [Mass/Vol] 9.5 mg/dL 8.6 - 10. 4 mg/dL [facility] Chloride [Moles/Vol] 103 mmol/L 98 - 10 7 mmol/L [facility] CO2 [Moles/Vol] 26 mmol/L 20 - 31 mmol/L [facility] Creatinine [Mass/Vol] 0.9 mg/dL 0.50 - 0.90 mg/dL [facility] Est, Glom Filt Rate 80 - PINF [facility] Comment on above: These results are not intended for use in patients <18 years of age. eGFR results are calculated without a race factor using the 2020 CKD-EPI equation. Careful clinical correlation is recommended, particularly when comparing to results calculated using previous equations. The CKD-EPI equation is less accurate in patients with extremes of muscle mass, extra-renal metabolism of creatine, excessive creatine ingestion, or following therapy that affects renal tubular secretion. Glucose [Mass/Vol] 150 mg/dL High 74 - 99 mg/dL [facility] Interpretation and review of laboratory results Abnormal [facility] Potassium [Moles/Vol] 3.8 mmol/L 3.7 - 5.3 mmol/L [facility] Sodium [Moles/Vol] 140 mmol/L 136 - 145 mmol/L [facility] Urea nitrogen [Mass/Vol] 13 mg/dL 6 - 20 mg/dL [facility] CBC with Auto Differentialon 12-03-2024 Basophils (Bld) [#/Vol] B on [facility] Basophils/100 WBC (Bld) 0 % 0 - 2 % B on [facility] Eosinophils (Bld) [#/Vol] [facility] Eosinophils/100 WBC (Bld) 0 % Low 1 - 4 % [facility] Erythrocyte distribution width (RBC) [Ratio] 11.4 % Low 11.8 - 14.4 % [facility] Hematocrit (Bld) [Volume fraction] 41.0 % 36.3 - 47.1 % [facility] Hemoglobin (Bld) [Mass/Vol] 14.6 g/dL 11.9 - 15.1 g/dL [facility] Immature granulocytes (Bld) [#/Vol] 0.09 10*3/uL [facility] Immature granulocytes/100 WBC (Bld) 1 % High 0 [facility] Interpretation and review of laboratory results Abnormal [facility] Lymphocytes/100 WBC (Bld) 5 % Low 24 - 43 % [facility] Lymphocytes/100 WBC (Bld) 0.71 % Low [facility] MCH (RBC) [Entitic mass] 32.1 pg 25.2 - 33.5 pg [facility] MCHC (RBC) [Mass/Vol] 35.6 g/dL High 28.4 - 34.8 g/dL [facility] MCV (RBC) [Entitic vol] 90.1 fL 82.6 - 102.9 fL [facility] Monocytes/100 WBC (Bld) 4 % 3 - 12 % B on [facility] Monocytes/100 WBC (Bld) 0.63 % B on [facility] Neutrophils/100 WBC (Bld) 91 % High 36 - 65 % [facility] Nucleated RBC/100 WBC (Bld) [Ratio] 0.0 % 0.0 per 100 WBC [facility] Platelet mean volume (Bld) [Entitic vol] 9.1 fL 8.1 - 13.5 fL [facility] Platelets (Bld) [#/Vol] 326 10*3/uL [facility] RBC (Bld) [#/Vol] 4.55 10*6/uL 3.95 - 5.1 1 m/uL [facility] Segmented neutrophils/100 WBC (Bld) 14.32 % High [facility] WBC other (Bld) [#/Vol] 15.8 High B [facility] CBC with Diffon 12-03-2024 Abs. Basophil <0.03 Normal 0.00-0.20 [facility] Comment on above: Performed By: #### B MPX, CDP #### [facility] [address] [place] [address] [employer] Operator: Velasquez Sears MD Abs. Eosinophil <0.03 Normal 0.00-0.44 [facility] Comment on above: Performed By: #### B MPX, CDP #### [facility] [address] [place] [address] [employer] Operator: Velasquez Sears MD Abs.Imm.Granulocyte 0.09 k/uL Normal 0.00-0.30 [facility] Comment on above: Performed By: #### B MPX, CDP #### [facility] [address] [place] [address] [employer] Operator: Velasquez Sears MD Abs.Neutrophil (Seg) 14.32 k/uL High 1.50-8.10 [facility] Comment on above: Performed By: #### B MPX, CDP #### [facility] [address] [place] [address] [employer]: Velasquez Sears MD Basophils/100 WBC (Bld) 0 % Normal 0-2 M [facility] Comment on above: Performed By: #### B MPX, CDP #### [facility] [address] [facility] [address] [employer] Operator: Velasquez Sears MD Eosinophils/100 WBC (Bld) 0 % Low 1-4 [facility] Comment on above: Performed By: #### B MPX, CDP #### [facility] [address] [place] [address]. [place] [address] [employer] Operator: Velasquez Sears MD Erythrocyte distribution width (RBC) [Ratio] 11.4 % Low 11.8-14.4 [facility] Comment on above: Performed By: #### B MPX, CDP #### [facility] [address] [place] [address]. [place] [address] [employer] Operator: Velasquez Sears MD Hematocrit (Bld) [Volume fraction] 41.0 % Normal 36.3-47.1 [facility] Comment on above: Performed By: #### B MPX, CDP #### [facility] [address] [place] [address]. [place] [address] [employer] Operator: Velasquez Sears MD Hemoglobin (Bld) [Mass/Vol] 14.6 g/dL Normal 11.9-15.1 [facility] Comment on above: Performed By: #### B MPX, CDP #### [facility] [address] [place] [address]. [place] [address] [employer] Operator: Velasquez Sears MD Immature granulocytes/100 WBC (Bld) 1 % High 0 [facility] Comment on above: Performed By: #### B MPX, CDP #### [facility] [address] [place] [address] [employer] Operator: Velasquez Sears MD Lymphocytes (Bld) [#/Vol] 0.71 10*3/uL Low 1.10-3.70 [facility] Comment on above: Performed By: #### B MPX, CDP #### [facility] [address] [place] [address] [employer] Operator: Velasquez Sears MD Lymphocytes/100 WBC (Bld) 5 % Low 24-43 [facility] Comment on above: Performed By: #### B MPX, CDP #### [facility] [address] [place] [address] [employer] Operator: Velasquez Sears MD MCH (RBC) [Entitic mass] 32.1 pg Normal 25.2-33.5 [facility] Comment on above: Performed By: #### B MPX, CDP #### [facility] [address] [place] [address] [employer] Operator: Velasquez Sears MD MCHC (RBC) [Mass/Vol] 35.6 g/dL High 28.4-34.8 [facility] Comment on above: Performed By: #### B MPX, CDP #### [facility] [address] [place] [address] [employer] Operator: Velasquez Sears MD MCV (RBC) [Entitic vol] 90.1 fL Normal 82.6-102.9 M [facility] Comment on above: Performed By: #### B MPX, CDP #### [facility] [address] [place] [address] [employer] Operator: Velasquez Sears MD Monocytes (Bld) [#/Vol] 0.63 10*3/uL Normal 0.10-1.20 [facility] Comment on above: Performed By: #### B MPX, CDP #### [facility] [address] [place] [address] [employer] Operator: Velasquez Sears MD Monocytes/100 WBC (Bld) 4 % Normal 3-12 M [facility] Comment on above: Performed By: #### B MPX, CDP #### [facility] [address] [place] [address] [employer] Operator: Velasquez Sears MD Neutrophil (Seg) 91 % High 36-65 [facility] Comment on above: Performed By: #### B MPX, CDP #### [facility] [facility] [address] [employer] Operator: Velasquez Sears MD NRBC Automated 0.0 per 100 WBC Normal 0.0 [facility] Comment on above: Performed By: #### B MPX, CDP #### [facility] [address] [place] [address] [employer] Operator: Velasquez Sears MD Platelet mean volume (Bld) [Entitic vol] 9.1 fL Normal 8.1-13.5 [facility] Comment on above: Performed By: #### B MPX, CDP #### [facility] [address] [place] [address]. [place] [address] [employer] Operator: Velasquez Sears MD Platelets (Bld) [#/Vol] 326 10*3/uL Normal 138-453 [facility] Comment on above: Performed By: #### B MPX, CDP #### [facility] [place] [address] [employer] Operator: Velasquez Sears MD RBC (Bld) [#/Vol] 4.55 10*6/uL Normal 3.95-5.11 [facility] Comment on above: Performed By: #### B MPX, CDP #### [facility] [address] [place], [place] [id number] [employer] Operator: Velasquez Sears MD WBC (Bld) [#/Vol] 15.8 10*3/uL High 3.5-11.3 [facility] Comment on above: Performed By: #### B MPX, CDP #### [facility] [address] [place] [address] [employer] Operator: Velasquez Sears MD MR Abdomen WO and W contrast Jabier 12-02-2024 1. Cholelithiasis with no evidence of acute cholecystitis. 2. Mild biliary dilatation with no evidence of choledocholithiasis. 3. Normal MRI appearance of the pancreas. [facility] EXAMINATION: MRI OF THE ABDOMEN WITH AND WITHOUT CONTRAST AND MRCP 12/02/2024 7:44 am TECHNIQUE: Multiplanar multisequence MRI of the abdomen was performed with and without the administration of intravenous contrast. After initial T2 axial and coronal images, thick slab, thin slab and 3D coronal MRCP sequences were obtained without the administration of intravenous contrast. MIP images are provided for review. COMPARISON: None HISTORY: ORDERING SYSTEM PROVIDED HISTORY: biliary pancreatitis TECHNOLOGIST PROVIDED HISTORY: Surgery is scheduled for this afternoon. biliary pancreatitis Reason for Exam: biliary pancreatitis, renal mass FINDINGS: Technical Factors: Arterial phase timing is optimal. Moderate patient motion on multiple imaging sequences somewhat limiting evaluation. Parenchyma: There is no inflammation or edema of the pancreas to suggest acute pancreatitis. No sequela of chronic pancreatitis appreciated. Mass: No cystic or solid pancreatic lesion. Pancreatic Duct: The pancreatic duct is normal. Biliary ducts: Diffuse pattern of mild biliary dilatation centrally and involving common hepatic and common bile duct. The CBD measures up to 7 mm. No intraluminal filling defect. No stricture. Gallbladder: Multiple stones are observed within the gallbladder lumen. No mucosal thickening or pericholecystic fluid. Other: None [facility] Amna Guaman IV, MD - 12/02/2024 EXAMINATION: MRI OF THE ABDOMEN WITH AND WITHOUT CONTRAST AND MRCP 12/02/2024 7:44 am TECHNIQUE: Multiplanar multisequence MRI of the abdomen was performed with and without the administration of intravenous contrast. After initial T2 axial and coronal images, thick slab, thin slab and 3D coronal MRCP sequences were obtained without the administration of intravenous contrast. MIP images are provided for review. COMPARISON: None HISTORY: ORDERING SYSTEM PROVIDED HISTORY: biliary pancreatitis TECHNOLOGIST PROVIDED HISTORY: Surgery is scheduled for this afternoon. biliary pancreatitis Reason for Exam: biliary pancreatitis, renal mass FINDINGS: Technical Factors: Arterial phase timing is optimal. Moderate patient motion on multiple imaging sequences somewhat limiting evaluation. Parenchyma: There is no inflammation or edema of the pancreas to suggest acute pancreatitis. No sequela of chronic pancreatitis appreciated. Mass: No cystic or solid pancreatic lesion. Pancreatic Duct: The pancreatic duct is normal. Biliary ducts: Diffuse pattern of mild biliary dilatation centrally and involving common hepatic and common bile duct. The CBD measures up to 7 mm. No intraluminal filling defect. No stricture. Gallbladder: Multiple stones are observed within the gallbladder lumen. No mucosal thickening or pericholecystic fluid. Other: None IMPRESSION: 1. Cholelithiasis with no evidence of acute cholecystitis. 2. Mild biliary dilatation with no evidence of choledocholithiasis. 3. Normal MRI appearance of the pancreas. [facility] Radiology Study observation (narrative) [facility] MR Abdomen WO and W contrast IVOrdered By: Amna Guaman on 12-02-2024 [facility] Work Phone: Surgical Pathology Reporton 12-02-2024 Surgical Pathology Report (NOTE) Path Number: [id number] -- Diagnosis -- Gallbladder: -Cholelithiasis and chronic inflammation. Suresh Smiley M.D. Electronically Signed Out rdd/12/04/2024 Clinical Information Pre-Op Diagnosis: GALLSTONES Operative Findings: GALLBLADDER AND CONTENTS Operation Performed: CHOLECYSTECTOMY LAPAROSCOPIC ROBOTIC XI se Source of Specimen A: GALLBLADDER AND CONTENTS Gross Description JENNIFER EMILY GALLBLADDER AND CONTENTS Received in formalin is [...] sections of gallbladder mucosa 1cs. tm Latonia Goetzyariel/se:12/03/2024 Microscopic Description Microscopic examination performed. Processing Lab: [address] [address] Interpretation Performed at [address] [id number] SURGICAL PATHOLOGY CONSULTATION Patient Name: JENNIFER ZAMORA [facility] Rec: [id number] [facility] [facility] ANATOMIC PATHOLOGY [address] [place], [place] [address] Normal [facility] Basic Metabolic Panelon 11-15 Anion gap [Moles/Vol] 8 mmol/L Low 9 - 16 mmol/L [facility] Calcium [Mass/Vol] 9.2 mg/dL 8.6 - 10. 4 mg/dL [facility] Chloride [Moles/Vol] 106 mmol/L 98 - 10 7 mmol/L [facility] CO2 [Moles/Vol] 26 mmol/L 20 - 31 mmol/L [facility] Creatinine [Mass/Vol] 0.7 mg/dL 0.50 - 0.90 mg/dL [facility] LIQUITY [employer] Est, Glom Filt Rate - PINF [facility] Comment on above: These results are not intended for use in patients <18 years of age. eGFR results are calculated without a race factor using the 2020 CKD-EPI equation. Careful clinical correlation is recommended, particularly when comparing to results calculated using previous equations. The CKD-EPI equation is less accurate in patients with extremes of muscle mass, extra-renal metabolism of creatine, excessive creatine ingestion, or following therapy that affects renal tubular secretion. Glucose [Mass/Vol] 85 mg/dL 74 - 99 mg/dL [facility] [employer] Potassium [Moles/Vol] 4.1 mmol/L 3.7 - 5.3 mmol/L [facility] Sodium [Moles/Vol] 140 mmol/L 136 - 145 mmol/L [facility] Urea nitrogen [Mass/Vol] 9 mg/dL 6 - 20 mg/dL [facility] Anion gap [Moles/Vol] 8 mmol/L Low 9 - 16 mmol/L [facility] Calcium [Mass/Vol] 8.9 mg/dL 8.6 - 10. 4 mg/dL [facility] Chloride [Moles/Vol] 104 mmol/L 98 - 10 7 mmol/L [facility] CO2 [Moles/Vol] 27 mmol/L 20 - 31 mmol/L [facility] Creatinine [Mass/Vol] 0.7 mg/dL 0.50 - 0.90 mg/dL [facility] Est, Glom Filt Rate - PINF [facility] Comment on above: These results are not intended for use in patients <18 years of age. eGFR results are calculated without a race factor using the 2020 CKD-EPI equation. Careful clinical correlation is recommended, particularly when comparing to results calculated using previous equations. The CKD-EPI equation is less accurate in patients with extremes of muscle mass, extra-renal metabolism of creatine, excessive creatine ingestion, or following therapy that affects renal tubular secretion. Glucose [Mass/Vol] 95 mg/dL 74 - 99 mg/dL [facility] Interpretation and review of laboratory results Abnormal [facility] Potassium [Moles/Vol] 3.7 mmol/L 3.7 - 5.3 mmol/L [facility] Sodium [Moles/Vol] 138 mmol/L 136 - 145 mmol/L [facility] Urea nitrogen [Mass/Vol] 11 mg/dL 6 - 20 mg/dL [facility] Basic Metabolic Profon 12-01 Anion gap [Moles/Vol] 8 mmol/L Low 9-16 [facility] Comment on above: Performed By: #### C DP, BMP, LIVP #### [facility] [address] [place] [address] [employer] Operator: Velasquez Sears MD Calcium [Mass/Vol] 9.2 mg/dL Normal 8.6-10.4 [facility] Comment on above: Performed By: #### C DP, BMP, LIVP #### [facility] [address] [place] [address] [employer] Operator: Velasquez Sears MD Chloride [Moles/Vol] 106 mmol/L Normal 98-107 [facility] Comment on above: Performed By: #### C DP, BMP, LIVP #### [facility] [place] [address] [employer] Operator: Velasquez Sears MD CO2 [Moles/Vol] 26 mmol/L Normal 20-31 [facility] Comment on above: Performed By: #### C DP, BMP, LIVP #### [facility] [address] [place] [address]. [place] [address] [employer] Operator: Velasquez Sears MD Creatinine [Mass/Vol] 0.7 mg/dL Normal 0.50-0.90 [facility] Comment on above: Performed By: #### C DP, BMP, LIVP #### [facility] Lab [address] [place] [address]. [place] [address] [employer]: Velasquez Sears MD GFR/1.73 sq M.predicted among non-blacks MDRD (S/P/Bld) [Vol rate/Area] mL/min/{1.73_m2} Normal >60 [facility] Comment on above: Result Comment: These results are not intended for use in patients <18 years of age. eGFR results are calculated without a race factor using the 2020 CKD-EPI equation. Careful clinical correlation is recommended, particularly when comparing to results calculated using previous equations. The CKD-EPI equation is less accurate in patients with extremes of muscle mass, extra-renal metabolism of creatine, excessive creatine ingestion, or following therapy that affects renal tubular secretion. Performed By: #### C DP, BMP, LIVP #### [facility] [place] [facility] [place] [address] [employer]: Velasquez Sears MD Glucose [Mass/Vol] 85 mg/dL Normal 74-99 [facility] Comment on above: Performed By: #### C DP, BMP, LIVP #### [facility] [address] [place] [address] [employer]: Velasquez Sears MD Potassium [Moles/Vol] 4.1 mmol/L Normal 3.7-5.3 [facility] Comment on above: Performed By: #### C DP, BMP, LIVP #### [facility] [address] [place] [address] [employer]: Velasquez Sears MD Sodium [Moles/Vol] 140 mmol/L Normal 136-145 [facility] Comment on above: Performed By: #### C DP, BMP, LIVP #### [facility] [address] [place] [address] [employer]: Velasquez Sears MD Urea nitrogen [Mass/Vol] 9 mg/dL Normal 6-20 [facility] Comment on above: Performed By: #### C DP, BMP, LIVP #### [facility] [place] [address] [employer]: Velasquez Sears MD Anion gap [Moles/Vol] 8 mmol/L Low 9-16 [facility] Comment on above: Performed By: #### B MP #### [facility] [address] [place] [address] [employer]: Velasquez Sears MD #### TRIG #### [address] [address] [employer]: Hilario Hdz MD Calcium [Mass/Vol] 8.9 mg/dL Normal 8.6-10.4 [facility] Comment on above: Performed By: #### B MP #### [facility] [address] [place] [address] [employer]: Velasquez Sears MD #### TRIG #### [address] [address] [employer]: Hilario Hdz MD Chloride [Moles/Vol] 104 mmol/L Normal 98-107 [facility] Comment on above: Performed By: #### B MP #### [facility] [address] [place] [address] [employer]: Velasquez Sears MD #### TRIG #### [address] [address] [employer]: Hilario Hdz MD CO2 [Moles/Vol] 27 mmol/L Normal 20-31 [facility] Comment on above: Performed By: #### B MP #### [facility] [address] [place] [address] [employer]: Velasquez Sears MD #### TRIG #### [address] [address] [employer]: Hilario Hdz MD Creatinine [Mass/Vol] 0.7 mg/dL Normal 0.50-0.90 [facility] Comment on above: Performed By: #### B MP #### [facility] [address] [place] [address] [employer]: Velasquez Sears MD #### TRIG #### [address] [address] [employer]: Hilario Hdz MD GFR/1.73 sq M.predicted among non-blacks MDRD (S/P/Bld) [Vol rate/Area] mL/min/{1.73_m2} Normal >60 [facility] Comment on above: Result Comment: These results are not intended for use in patients <18 years of age. eGFR results are calculated without a race factor using the 2020 CKD-EPI equation. Careful clinical correlation is recommended, particularly when comparing to results calculated using previous equations. The CKD-EPI equation is less accurate in patients with extremes of muscle mass, extra-renal metabolism of creatine, excessive creatine ingestion, or following therapy that affects renal tubular secretion. Performed By: #### B MP #### [facility] [address] [place] [address] [employer]: Velasquez Sears MD #### TRIG #### [address] [address] [employer]: Hilario Hdz MD Glucose [Mass/Vol] 95 mg/dL Normal 74-99 [facility] Comment on above: Performed By: #### B MP #### [facility] [address] [place] [address] [employer]: Velasquez Sears MD #### TRIG #### [address] [address] [employer]: Hilario Hdz MD Potassium [Moles/Vol] 3.7 mmol/L Normal 3.7-5.3 [facility] Comment on above: Performed By: #### B MP #### [facility] [address] [place] [address] [employer]: Velasquez Sears MD #### TRIG #### [address] [address] [employer]: Hilario Hdz MD Sodium [Moles/Vol] 138 mmol/L Normal 136-145 [facility] Comment on above: Performed By: #### B MP #### [facility] [address] [place] [address] [employer]: Velasquez Sears MD #### TRIG #### [facility] [address] [place], [place] [id number] [employer]: Hilario Hdz MD Urea nitrogen [Mass/Vol] 11 mg/dL Normal 6-20 [facility] Comment on above: Performed By: #### B MP #### [facility] [address] [place] [address] [employer]: Velasquez Sears MD #### TRIG #### [facility] [address] [place], [place] [id number] [employer]: Hilario Hdz MD CBC with Auto Differentialon 12-01-2024 Basophils (Bld) [#/Vol] 0.03 10*3/uL [facility] Basophils/100 WBC (Bld) 1 % 0 - 2 % B [facility] Eosinophils (Bld) [#/Vol] 0.05 10*3/uL [facility] Eosinophils/100 WBC (Bld) 1 % 1 - 4 % [facility] Erythrocyte distribution width (RBC) [Ratio] 11.6 % Low 11.8 - 14.4 % [facility] Hematocrit (Bld) [Volume fraction] 40.5 % 36.3 - 47.1 % [facility] Hemoglobin (Bld) [Mass/Vol] 13.9 g/dL 11.9 - 15.1 g/dL [facility] Immature granulocytes (Bld) [#/Vol] 0.01 10*3/uL [facility] Immature granulocytes/100 WBC (Bld) 0 % 0 [facility] Interpretation and review of laboratory results Abnormal [facility] Lymphocytes/100 WBC (Bld) 25 % 24 - 43 % [facility] Lymphocytes/100 WBC (Bld) 1.11 % [facility] MCH (RBC) [Entitic mass] 31.6 pg 25.2 - 33.5 pg [facility] MCHC (RBC) [Mass/Vol] 34.3 g/dL 28.4 - 34.8 g/dL [facility] MCV (RBC) [Entitic vol] 92.0 fL 82.6 - 102.9 fL [facility] Monocytes/100 WBC (Bld) 6 % 3 - 12 % B on [facility] Monocytes/100 WBC (Bld) 0.27 % B on [facility] Neutrophils/100 WBC (Bld) 67 % High 36 - 65 % [facility] Nucleated RBC/100 WBC (Bld) [Ratio] 0.0 % 0.0 per 100 WBC [facility] Platelet mean volume (Bld) [Entitic vol] 8.9 fL 8.1 - 13.5 fL [facility] Platelets (Bld) [#/Vol] 267 10*3/uL [facility] RBC (Bld) [#/Vol] 4.40 10*6/uL 3.95 - 5.1 1 m/uL [facility] Segmented neutrophils/100 WBC (Bld) 3.03 % [facility] WBC other (Bld) [#/Vol] 4.5 B on [facility] CBC with Diffon 12-01-2024 Abs. Basophil 0.03 k/uL Normal 0.00-0.20 [facility] Comment on above: Performed By: #### C MELINA COTTO, LIVP #### [facility] [address] [place] [address] [employer]: Velasquez Sears MD Abs.Imm.Granulocyte 0.01 k/uL Normal 0.00-0.30 [facility] Comment on above: Performed By: #### C YADIEL BMP, LIVP #### [facility] [address] [place] [address] [employer]: Velasquez Sears MD Abs.Neutrophil (Seg) 3.03 k/uL Normal 1.50-8.10 [facility] Comment on above: Performed By: #### C DP, BMP, LIVP #### [facility] [address] [place] [address] [employer]: Velasquez Sears MD Basophils/100 WBC (Bld) 1 % Normal 0-2 M [facility] Comment on above: Performed By: #### C DP, BMP, LIVP #### [facility] [address] [place] [address] [employer]: Velasquez Sears MD Eosinophils (Bld) [#/Vol] 0.05 10*3/uL Normal 0.00-0.44 [facility] Comment on above: Performed By: #### C DP, BMP, LIVP #### [facility] [address] [place] [address] [employer]: Velasquez Sears MD Eosinophils/100 WBC (Bld) 1 % Normal 1-4 [facility] Comment on above: Performed By: #### C DP, BMP, LIVP #### [facility] [address] [place] [address] [employer]: Velasquez Sears MD Erythrocyte distribution width (RBC) [Ratio] 11.6 % Low 11.8-14.4 [facility] Comment on above: Performed By: #### C DP, BMP, LIVP #### [facility] [address] [place] [address] [employer]: Velasquez Sears MD Hematocrit (Bld) [Volume fraction] 40.5 % Normal 36.3-47.1 [facility] Comment on above: Performed By: #### C DP, BMP, LIVP #### [facility] [address] [place] [address] [employer]: Velasquez Sears MD Hemoglobin (Bld) [Mass/Vol] 13.9 g/dL Normal 11.9-15.1 [facility] Comment on above: Performed By: #### C DP, BMP, LIVP #### [facility] [place] [address] [employer]: Velasquez Sears MD Immature granulocytes/100 WBC (Bld) 0 % Normal 0 [facility] Comment on above: Performed By: #### C DP, BMP, LIVP #### [facility] [address] [place] [address]. [place] [address] [employer]: Velasquez Sears MD Lymphocytes (Bld) [#/Vol] 1.11 10*3/uL Normal 1.10-3.70 [facility] Comment on above: Performed By: #### C DP, BMP, LIVP #### [facility] [address] [place] [address]. [place] [address] [employer]: Velasquez Sears MD Lymphocytes/100 WBC (Bld) 25 % Normal 24-43 [facility] Comment on above: Performed By: #### C DP, BMP, LIVP #### [facility] [address] [place] [address]. [place] [address] [employer]: Velasquez Sears MD MCH (RBC) [Entitic mass] 31.6 pg Normal 25.2-33.5 [facility] Comment on above: Performed By: #### C DP, BMP, LIVP #### [facility] [address] [place] [address]. [place] [address] [employer]: Velasquez Sears MD MCHC (RBC) [Mass/Vol] 34.3 g/dL Normal 28.4-34.8 [facility] Comment on above: Performed By: #### C DP, BMP, LIVP #### [facility] [address] [place] [address]. [place] [address] [employer]: Velasquez Sears MD MCV (RBC) [Entitic vol] 92.0 fL Normal 82.6-102.9 M [facility] Comment on above: Performed By: #### C DP, BMP, LIVP #### [facility] [address] [place] [address] [employer]: Velasquez Sears MD Monocytes (Bld) [#/Vol] 0.27 10*3/uL Normal 0.10-1.20 [facility] Comment on above: Performed By: #### C DP, BMP, LIVP #### [facility] [address] [place] [facility] [address] [employer]: Velasquez Sears MD Monocytes/100 WBC (Bld) 6 % Normal 3-12 M [facility] Comment on above: Performed By: #### C DP, BMP, LIVP #### [facility] [address] [place] [address]. [place] [address] [employer]: Velasquez Sears MD Neutrophil (Seg) 67 % High 36-65 [facility] Comment on above: Performed By: #### C DP, BMP, LIVP #### [facility] [place] [facility] [place] [address] [employer]: Velasquez Sears MD NRBC Automated 0.0 per 100 WBC Normal 0.0 [facility] Comment on above: Performed By: #### C DP, BMP, LIVP #### [facility] [place] [facility] [place] [address] [employer]: Velasquez Sears MD Platelet mean volume (Bld) [Entitic vol] 8.9 fL Normal 8.1-13.5 [facility] Comment on above: Performed By: #### C DP, BMP, LIVP #### [facility] [address] [place], [place] [address]ia [facility] [address] [employer]: Velasquez Sears MD Platelets (Bld) [#/Vol] 267 10*3/uL Normal 138-453 [facility] Comment on above: Performed By: #### C DP, BMP, LIVP #### [facility] [address] [place] [address] [employer]: Velasquez Sears MD RBC (Bld) [#/Vol] 4.40 10*6/uL Normal 3.95-5.11 [facility] Comment on above: Performed By: #### C DP, BMP, LIVP #### [facility] [address] [place] [facility]. [place], [place] [id number] [employer]: Velasquez Sears MD WBC (Bld) [#/Vol] 4.5 10*3/uL Normal 3.5-11.3 [facility] Comment on above: Performed By: #### C DP, BMP, LIVP #### [facility] [address] [place] [facility] [place] [place] [address] [employer]: Velasquez Sears MD Hepatic Function Panelon Albumin [Mass/Vol] 3.9 g/dL 3.5 - 5.2 g/dL [facility] Albumin/Globulin [Mass ratio] 1.4 {ratio} 1.0 - 2.5 [facility] ALP [Catalytic activity/Vol] 150 U/L High 35 - 104 U/L [facility] ALT [Catalytic activity/Vol] 81 U/L High 10 - 35 U/L [facility] AST [Catalytic activity/Vol] 57 U/L High 10 - 35 U/L [facility] Bilirubin [Mass/Vol] 0.6 mg/dL 0.00 - 1.20 mg/dL [facility] Bilirubin.direct [Mass/Vol] 0.2 mg/dL 0.00 - 0.20 mg/dL [facility] Bilirubin.indirect [Mass/Vol] 0.4 mg/dL [facility] Protein [Mass/Vol] 6.6 g/dL 6.6 - 8.7 g/dL [facility] Liver Profileon 12-01-2024 Albumin [Mass/Vol] 3.9 g/dL Normal 3.5-5.2 [facility] Comment on above: Performed By: #### C DP, BMP, LIVP #### [facility] [address] [place] [address] [employer]: Velasquez Sears MD Albumin/Glob Ratio 1.4 Normal 1.0-2.5 [facility] Comment on above: Performed By: #### C DP, BMP, LIVP #### [facility] [address] [place] [address] [employer]: Velasquez Sears MD Alkaline Phos 150 U/L High 35-104 [facility] Comment on above: Performed By: #### C DP, BMP, LIVP #### [facility] [address] [place] [address] [employer]: Velasquez Sears MD ALT [Catalytic activity/Vol] 81 U/L High 10-35 [facility] Comment on above: Performed By: #### C DP, BMP, LIVP #### [facility] [address] [place] [address] [employer]: Velasquez Sears MD AST [Catalytic activity/Vol] 57 U/L High 10-35 [facility] Comment on above: Performed By: #### C DP, BMP, LIVP #### [facility] [address] [place] [address] [employer]: Velasquez Sears MD Bilirubin [Mass/Vol] 0.6 mg/dL Normal 0.00-1.20 [facility] Comment on above: Performed By: #### C DP, BMP, LIVP #### [facility] [address] [place] [address] [employer]: Velasquez Sears MD Bilirubin, Indirect 0.4 mg/dL Normal [facility] Comment on above: Performed By: #### C DP, BMP, LIVP #### [facility] [address] [place] [address] [employer]: Velasquez Sears MD Bilirubin.indirect [Mass/Vol] 0.2 mg/dL Normal 0.00-0.20 [facility] Comment on above: Performed By: #### C DP, BMP, LIVP #### [facility] [address] [place] [address] [employer]: Velasquez Sears MD Protein [Mass/Vol] 6.6 g/dL Normal 6.6-8.7 [facility] Comment on above: Performed By: #### C DP, BMP, LIVP #### [facility] [address] [place] [address] [employer]: Velasquez Sears MD No Panel Informationon 12-01 Interpretation and review of laboratory results Abnormal [facility] Triglycerideon 12-01-2024 Triglyceride [Mass/Vol] 124 mg/dL NINF - 150 mg/dL [facility] Comment on above: Triglyceride Guidelines: <150 Desirable 150-199 Borderline 200-499 High >499 Very high Based on AHA Guidelines for fasting triglyceride, July 2012. [facility] Triglycerideson 12-01-2024 Triglyceride [Mass/Vol] 124 mg/dL Normal <150 M [facility] Comment on above: Result Comment: Triglyceride Guidelines: <150 Desirable 150-199 Borderline 200-499 High >499 Very high Based on AHA Guidelines for fasting triglyceride, July 2012. Performed By: #### B MP #### [facility] [address] [place] [address] [employer]: Velasquez Sears MD #### TRIG #### [facility] [address] [id number] [employer]: Hilario Hdz MD Basophils Auto (Bld) [#/Vol] on 11-30-2024 Basophils (Bld) [#/Vol] Automated basoph il count 0.0-0.1 [facility] Basophils/100 WBC Auto (Bld) on 11-30-2024 Basophils/100 WBC (Bld) Automated basophil % 0. 2-2.0 [facility] Eosinophils/100 WBC Auto (Bl d)on 11-30-2024 Eosinophils/100 WBC (Bld) Automated eosinophil % 0.9-7.0 [facility] Erythrocyte distribution wid th Auto (RBC) [Ratio]on 11-30-2024 Erythrocyte distribution width (RBC) [Ratio] Erythrocyte distribution width [Ratio] by Automated count 11.0-15.0 [facility] Estimated glomerular filtrat ion rate (GFR) non- Americanon 11-30-2024 GFR/1.73 sq M.predicted among non-blacks MDRD (S/P/Bld) [Vol rate/Area] Estimated glomerular filtration rate (GFR) non- Low >=60 mL/min/1.73 m 2 [facility] Globulin Calc (S) [Mass/Vol] on 11-30-2024 Globulin (S) [Mass/Vol] Serum globulin measurement by calculation (mass/volume) [facility] Hematocrit Auto (Bld) [Volum e fraction]on 11-30-2024 Hematocrit (Bld) [Volume fraction] Hematocrit [Volume Fraction] of Blood by Automated count 36.0-48.0 [facility] Hemoglobin [Mass/volume] in Bloodon 11-30-2024 Hemoglobin (Bld) [Mass/Vol] Hemoglobin [Mass/volume] in Blood 12.0-16.0 [facility] Laboratory - Chemistry and C hemistry - challengeon 11-30-2024 Albumin [Mass/Vol] 3.9 g/dL 3.4-5.0 [facility] ALP [Catalytic activity/Vol] 138 U/L High 46-116 [facility] ALT [Catalytic activity/Vol] 25 U/L 14-59 [facility] Amylase [Catalytic activity/Vol] 106 U/L 25-115 [facility] AST [Catalytic activity/Vol] 24 U/L 15-37 [facility] Bilirubin [Mass/Vol] 0.5 mg/dL 0.2-1.0 [facility] Bilirubin.direct [Mass/Vol] 0.1 mg/dL 0.0-0.2 [facility] Calcium [Mass/Vol] 9.4 mg/dL 8.5-10.1 [facility] Chloride [Moles/Vol] 102 mmol/L 98-107 [facility] CO2 [Moles/Vol] 29.1 mmol/L 21.0-32.0 [facility] Creatinine [Mass/Vol] 0.98 mg/dL 0.55-1.02 [facility] GFR/1.73 sq M.predicted MDRD (S/P/Bld) [Vol rate/Area] mL/min/{1.73_m2} >=60 mL/min/1.73 m 2 [facility] Glucose [Mass/Vol] 106 mg/dL 74-106 [facility] Lipase [Catalytic activity/Vol] 215.0 U/L High 16.0-77.0 [facility] Potassium [Moles/Vol] 3.5 mmol/L 3.5-5.1 [facility] Protein [Mass/Vol] 7.8 g/dL 6.4-8.2 [facility] Sodium [Moles/Vol] 139 mmol/L 136-145 [facility] Urea nitrogen [Mass/Vol] 14.0 mg/dL 7.0-18.0 [facility] Urea nitrogen/Creatinine [Mass ratio] 14.3 mg/mg [facility] - Hematology and Cell countson 11-30-2024 Immature granulocytes/100 WBC (Bld) 0.0 % 0.0-0.5 [facility] Leukocytes [#/volume] correc abraham for nucleated erythrocytes in Blood by Automated counon 11-30-2024 WBC corrected for nucl RBC Auto (Bld) [#/Vol] Leukocytes [#/volume] corrected for nucleated erythrocytes in Blood by Automated coun 4.0-11.0 [facility] Lymphocytes Auto (Bld) [#/Vo l]on 11-30-2024 Lymphocytes (Bld) [#/Vol] Lymphocytes [#/volume] in Blood by Automated count 1.2-3.8 [facility] Lymphocytes/100 WBC Auto (Bl d)on 11-30-2024 Lymphocytes/100 WBC (Bld) Lymphocytes/100 leukocytes in Blood by Automated count 20.5-60.0 [facility] MCH Auto (RBC) [Entitic mass ]on 11-30-2024 MCH (RBC) [Entitic mass] MCH [Entitic mass] by Automated count 26.7-34.0 [facility] MCHC Auto (RBC) [Mass/Vol]on 11-30-2024 MCHC (RBC) [Mass/Vol] MCHC [Mass/volume] by Automated count 29.9-35.2 [facility] MCV Auto (RBC) [Entitic vol] on 11-30-2024 MCV (RBC) [Entitic vol] MCV [Entitic vol ume] by Automated count 81.0-99.0 [facility] Monocytes Auto (Bld) [#/Vol] on 11-30-2024 Monocytes (Bld) [#/Vol] Automated blood monocyte count 0.3-0.8 [facility] Monocytes/100 WBC Auto (Bld) on 11-30-2024 Monocytes/100 WBC (Bld) Automated monocyte % 1. 7-12.0 [facility] Neutrophils Auto (Bld) [#/Vo l]on 11-30-2024 Neutrophils (Bld) [#/Vol] Neutrophils [#/volume] in Blood by Automated count 1.4-6.5 [facility] Neutrophils/100 WBC Auto (Bl d)on 11-30-2024 Neutrophils/100 WBC (Bld) Automated neutrophil % 43.0-75.0 [facility] No Panel Informationon 11-30 Eosinophils # (Auto) 0.1 10 3/uL 0.0-0.7 [facility] Immature Granulocyte # (Auto) 0.00 10 3/uL 0.00-0.03 [facility] Platelet mean volume Auto (B ld) [Entitic vol]on 11-30-2024 Platelet mean volume (Bld) [Entitic vol] Platelet mean volume [Entitic volume] in Blood by Automated count Low 9.5-13.5 [facility] Platelets Auto (Bld) [#/Vol] on 11-30-2024 Platelets (Bld) [#/Vol] Platelets [#/vol ume] in Blood by Automated count 150-450 [facility] RBC Auto (Bld) [#/Vol]on RBC (Bld) [#/Vol] Erythrocytes [#/volume] in Blood by Automated count 4.20-5.40 [facility] Serum or plasma albumin/glob ulin mass ratioon 11-30-2024 Albumin/Globulin [Mass ratio] Serum or plasma albumin/globulin mass ratio [facility] Serum or plasma anion gap de terminationon 11-30-2024 Anion gap [Moles/Vol] Serum or plasma an ion gap determination [facility] Basophils Auto (Bld) [#/Vol] on 10-14-2024 Basophils (Bld) [#/Vol] Automated basoph il count 0.0-0.1 [facility] Basophils/100 WBC Auto (Bld) on 10-14-2024 Basophils/100 WBC (Bld) Automated basophil % 0. 2-2.0 [facility] Cholesterol in LDL Calc [Mas s/Vol]on 10-14-2024 Cholesterol in LDL [Mass/Vol] Cholesterol in LDL [Mass/volume] in Serum or Plasma by calculation [facility] Comment on above: <100 mg/dl [id number] 0-129 mg/dl NEAR OR ABOVE [id number] mg/dl BORDERLINE [id number] mg/dl HIGH>190 mg/dl VERY HIGH Cholesterol in VLDL Calc [Ma ss/Vol]on 10-14-2024 Cholesterol in VLDL [Mass/Vol] Cholesterol in VLDL [Mass/volume] in Serum or Plasma by calculation [facility] Eosinophils/100 WBC Auto (Bl d)on 10-14-2024 Eosinophils/100 WBC (Bld) Automated eosinophil % 0.9-7.0 [facility] Erythrocyte distribution wid th Auto (RBC) [Ratio]on 10-14-2024 Erythrocyte distribution width (RBC) [Ratio] Erythrocyte distribution width [Ratio] by Automated count 11.0-15.0 [facility] Estimated glomerular filtrat ion rate (GFR) non- Americanon 10-14-2024 GFR/1.73 sq M.predicted among non-blacks MDRD (S/P/Bld) [Vol rate/Area] Estimated glomerular filtration rate (GFR) non- >=60 mL/min/1.73 m 2 [facility] Globulin Calc (S) [Mass/Vol] on 10-14-2024 Globulin (S) [Mass/Vol] Serum globulin measurement by calculation (mass/volume) [facility] Hematocrit Auto (Bld) [Volum e fraction]on 10-14-2024 Hematocrit (Bld) [Volume fraction] Hematocrit [Volume Fraction] of Blood by Automated count 36.0-48.0 [facility] Hemoglobin [Mass/volume] in Bloodon 10-14-2024 Hemoglobin (Bld) [Mass/Vol] Hemoglobin [Mass/volume] in Blood 12.0-16.0 [facility] Laboratory - Chemistry and C hemistry - challengeon 10-14-2024 Albumin [Mass/Vol] 3.6 g/dL 3.4-5.0 [facility] ALP [Catalytic activity/Vol] 104 U/L 46-116 [facility] ALT [Catalytic activity/Vol] 24 U/L 14-59 [facility] AST [Catalytic activity/Vol] 18 U/L 15-37 [facility] Bilirubin [Mass/Vol] 0.3 mg/dL 0.2-1.0 [facility] Calcium [Mass/Vol] 8.8 mg/dL 8.5-10.1 [facility] Chloride [Moles/Vol] 106 mmol/L 98-107 [facility] Cholesterol [Mass/Vol] 220 mg/dL High [facility] Cholesterol in HDL [Mass/Vol] 57 mg/dL 40-60 [facility] Comment on above: > or =60 mg/dl - LOW CARDIOVASCULAR RISK<40 mg/dl - HIGH CARDIOVASCULAR RISK CO2 [Moles/Vol] 29.7 mmol/L 21.0-32.0 [facility] Creatinine [Mass/Vol] 0.75 mg/dL 0.55-1.02 [facility] GFR/1.73 sq M.predicted MDRD (S/P/Bld) [Vol rate/Area] mL/min/{1.73_m2} >=60 mL/min/1.73 m 2 [facility] Glucose [Mass/Vol] 87 mg/dL 74-106 [facility] Potassium [Moles/Vol] 3.8 mmol/L 3.5-5.1 [facility] Protein [Mass/Vol] 7.3 g/dL 6.4-8.2 [facility] Sodium [Moles/Vol] 144 mmol/L 136-145 [facility] Triglyceride [Mass/Vol] 100 mg/dL <=150 [place] TSH Qn 0.574 m[IU]/L 0.358-3.740 [facility] Urea nitrogen [Mass/Vol] 12.0 mg/dL 7.0-18.0 [facility] Urea nitrogen/Creatinine [Mass ratio] 16.0 mg/mg [facility] Laboratory - Hematology and Cell countson 10-14-2024 Immature granulocytes/100 WBC (Bld) 0.3 % 0.0-0.5 [facility] Leukocytes [#/volume] correc abraham for nucleated erythrocytes in Blood by Automated counon 10-14-2024 WBC corrected for nucl RBC Auto (Bld) [#/Vol] Leukocytes [#/volume] corrected for nucleated erythrocytes in Blood by Automated coun Low 4.0-11.0 [facility] Lymphocytes Auto (Bld) [#/Vo l]on 10-14-2024 Lymphocytes (Bld) [#/Vol] Lymphocytes [#/volume] in Blood by Automated count Low 1.2-3.8 [facility] Lymphocytes/100 WBC Auto (Bl d)on 10-14-2024 Lymphocytes/100 WBC (Bld) Lymphocytes/100 leukocytes in Blood by Automated count 20.5-60.0 [facility] MCH Auto (RBC) [Entitic mass ]on 10-14-2024 MCH (RBC) [Entitic mass] MCH [Entitic mass] by Automated count 26.7-34.0 [facility] MCHC Auto (RBC) [Mass/Vol]on 10-14-2024 MCHC (RBC) [Mass/Vol] MCHC [Mass/volume] by Automated count 29.9-35.2 [facility] MCV Auto (RBC) [Entitic vol] on 10-14-2024 MCV (RBC) [Entitic vol] MCV [Entitic vol ume] by Automated count 81.0-99.0 [facility] Monocytes Auto (Bld) [#/Vol] on 10-14-2024 Monocytes (Bld) [#/Vol] Automated blood monocyte count Low 0.3-0.8 [facility] Monocytes/100 WBC Auto (Bld) on 10-14-2024 Monocytes/100 WBC (Bld) Automated monocyte % 1. 7-12.0 [facility] Neutrophils Auto (Bld) [#/Vo l]on 10-14-2024 Neutrophils (Bld) [#/Vol] Neutrophils [#/volume] in Blood by Automated count 1.4-6.5 [facility] Neutrophils/100 WBC Auto (Bl d)on 10-14-2024 Neutrophils/100 WBC (Bld) Automated neutrophil % 43.0-75.0 [facility] No Panel Informationon 10-14 C-Peptide 10.2 ng/mL Abnormal 1.1-4.4 [facility] Comment on above: C-Peptide reference interval is for fasting patients.Performed at: [address] [id number] Director: Rafita Thomas PhD, Phone: [phone] Eosinophils # (Auto) 0.1 10 3/uL 0.0-0.7 [facility] Immature Granulocyte # (Auto) 0.01 10 3/uL 0.00-0.03 [facility] Platelet mean volume Auto (B ld) [Entitic vol]on 10-14-2024 Platelet mean volume (Bld) [Entitic vol] Platelet mean volume [Entitic volume] in Blood by Automated count Low 9.5-13.5 [facility] Platelets Auto (Bld) [#/Vol] on 10-14-2024 Platelets (Bld) [#/Vol] Platelets [#/vol ume] in Blood by Automated count 150-450 [facility] RBC Auto (Bld) [#/Vol]on RBC (Bld) [#/Vol] Erythrocytes [#/volume] in Blood by Automated count 4.20-5.40 [facility] Serum or plasma albumin/glob ulin mass ratioon 10-14-2024 Albumin/Globulin [Mass ratio] Serum or plasma albumin/globulin mass ratio [facility] Serum or plasma anion gap de terminationon 10-14-2024 Anion gap [Moles/Vol] Serum or plasma an ion gap determination [facility] Serum or plasma glucose melanie urement 2 hours post 75 gm oral glucose (mass/volume)on 10-14-2024 Glucose 2 Hr post 75 g glucose PO [Mass/Vol] Serum or plasma glucose measurement 2 hours post 75 gm oral glucose (mass/volume) [facility] Comment on above: GLU FAST 87 (<95) Co l: 10/14/24 0843 GLU 1HR 111 (<180) Col: 10/14/24 0947 GLU 2HR 81 (<155) Col: 10/14/24 1047 Serum or plasma total choles terol/high density lipoprotein (HDL) cholesterol mass hussain 10-14-2024 Cholesterol.total/Natalee sterol in HDL [Mass ratio] Serum or plasma total cholesterol/high density lipoprotein (HDL) cholesterol mass rat [facility] Comment on above: 3.3 - 4.4 LOW RISK4. 4 - 7.1 AVERAGE RISK7.1 - 11.0 MODERATE RISK>11.0 HIGH RISK IGP,APTIMA HPV,AGE GDLNon AGE GDLN ACOG TESTING Note . [facility] Comment on above: TESTS RESULT FLAG UN ITS REF RANGE LAB Clinician Provided Cytology Information Source.............Vagina No. of containers..01 ThinPrep Vial Age Algo ACOG Nichole... FLAG LEGEND: L-Low Normal,H-High Normal,LL-Alert Low,HH-Alert High <-Panic Low,>-Panic High,A-Abnormal,AA-Critical Abnormal Performed at: 01 =[address] [address] Seble Lopez MD, HPV APTIMA Negative Negative [facility] Comment on above: This nucleic acid am plification test detects fourteen high- risk HPV types (16,18,31,33,35,39,45,51,52,56,58,59,66,68) without differentiation. Performed at: =[address] [id number] [employer] Operator: Seble Lopez MD, Phone: [phone] Performed at: [address] [id number] [employer] Operator: Seble Lopez MD, Phone: [phone] IGP, APTIMA HPV, RFX 16/18,45 Note . [facility] Comment on above: TESTS RESULT FLAG UN ITS REF RANGE LAB DIAGNOSIS: 02 NEGATIVE FOR INTRAEPITHELIAL LESION OR MALIGNANCY. Specimen adequacy: 02 Satisfactory for evaluation. Performed by: [employer] [place] [employer] (AS[employer]) . Note: Note 02 The Pap smear is [...] <-Panic Low,>-Panic High,A-Abnormal,AA-Critical Abnormal Performed at: [address] [address] Seble Lopez MD, SPATULA-ALONE VAGINA [facility] Human papilloma virus 16+18+ 31+33+35+39+45+51+52+56+58+59+66+68 DNA [Presence] in Raul 06-05-2024 HPV 16+18+31+33+35+39+45+51 +52+56+58+59+66+68 DNA Probe+sig amp Ql (Cvx) Negative Negative [facility] Comment on above: This nucleic acid am plification test detects fourteen high-risk HPV types (16,18,31,33,35,39,45,51,52,56,58,59,66,68)without differentiation.Performed at: = - [address] [id number] Director: Seble Lopez MD, Phone: [phone] at: [address] [id number] Director: Seble Lopez MD, Phone: [phone] No Panel Informationon 06-05 HPV High Risk Other Comment Note . [facility] Comment on above: TESTS RESULT FLAG UN ITS REF RANGE LAB -DIAGNOSIS: 02 NEGATIVE FOR INTRAEPITHELIAL LESION OR MALIGNANCY.Specimen adequacy: 02 Satisfactory for evaluation.Performed by: 02 [place] [place] [employer] ([facility]). 02Note: Note 02 The Pap smear is [...] Low,>-Panic High,A-Abnormal,AA-Critical Abnormal ------Performed at:02 [address] [facility] [address] [place] [address] Seble Lopez MD, Reference Lab Test Patient Age Note . [facility] Comment on above: TESTS RESULT FLAG UN ITS REF RANGE LAB - Clinician Provided Cytology Information Source.............Vagina No. of containers..01 ThinPrep VialAge Meño PERSON Nichole... 29 FLAG LEGEND: L-Low Normal,H-High Normal,LL-Alert Low,HH-Alert High <-Panic Low,>-Panic High,A-Abnormal,AA-Critical Abnormal ------Performed at:01 [address] [address] Seble Lopez MD, Basophils Auto (Bld) [#/Vol] on 03-27-2024 Basophils (Bld) [#/Vol] 0.0 10 3/uL 0.0-0.1 [facility] Basophils/100 WBC Auto (Bld) on 03-27-2024 Basophils/100 WBC (Bld) 1.2 % 0.2-2.0 [facility] [place] Cholesterol in LDL Calc [Mas s/Vol]on 03-27-2024 Cholesterol in LDL [Mass/Vol] 143.0 mg/dL [facility] Comment on above: <100 mg/dl [id number] 0-129 mg/dl NEAR OR ABOVE [id number] mg/dl BORDERLINE [id number] mg/dl HIGH>190 mg/dl VERY HIGH Cholesterol in VLDL Calc [Ma ss/Vol]on 03-27-2024 Cholesterol in VLDL [Mass/Vol] 14.4 mg/dL [facility] Eosinophils/100 WBC Auto (Bl d)on 03-27-2024 Eosinophils/100 WBC (Bld) 1.2 % 0.9-7.0 [facility] Erythrocyte distribution wid th Auto (RBC) [Ratio]on 03-27-2024 Erythrocyte distribution width (RBC) [Ratio] 11.9 % 11.0-15.0 [facility] Estimated glomerular filtrat ion rate (GFR) non- Americanon 03-27-2024 GFR/1.73 sq M.predicted among non-blacks MDRD (S/P/Bld) [Vol rate/Area] mL/min/{1.73_m2} >=60 [facility] Globulin Calc (S) [Mass/Vol] on 03-27-2024 Globulin (S) [Mass/Vol] 4.2 g/dL [facility] [place] Glucose mean value [Mass/vol ume] in Blood Estimated from glycated hemoglobinon 03-27-2024 Average glucose Estimated from glycated hemoglobin (Bld) [Mass/Vol] 105 mg/dL [facility] Hematocrit Auto (Bld) [Volum e fraction]on 03-27-2024 Hematocrit (Bld) [Volume fraction] 33.4 % Low 36.0-48.0 [facility] Hemoglobin [Mass/volume] in Bloodon 03-27-2024 Hemoglobin (Bld) [Mass/Vol] 11.1 g/dL Low 12.0-16.0 [facility] Laboratory - Chemistry and C hemistry - challengeon 03-27-2024 Albumin [Mass/Vol] 3.0 g/dL Low 3.4-5.0 [facility] ALP [Catalytic activity/Vol] 93 U/L 46-116 [facility] ALT [Catalytic activity/Vol] 24 U/L 14-59 [facility] AST [Catalytic activity/Vol] 22 U/L 15-37 [facility] Bilirubin [Mass/Vol] 0.6 mg/dL 0.2-1.0 [facility] Calcium [Mass/Vol] 9.0 mg/dL 8.5-10.1 [facility] Chloride [Moles/Vol] 104 mmol/L 98-107 [facility] Cholesterol [Mass/Vol] 212 mg/dL High <=[address] [facility] Cholesterol in HDL [Mass/Vol] 55 mg/dL 40-60 [facility] Comment on above: > or =60 mg/dl - LOW CARDIOVASCULAR RISK<40 mg/dl - HIGH CARDIOVASCULAR RISK CO2 [Moles/Vol] 30.3 mmol/L 21.0-32.0 [facility] Creatinine [Mass/Vol] 0.80 mg/dL 0.55-1.02 [facility] GFR/1.73 sq M.predicted MDRD (S/P/Bld) [Vol rate/Area] mL/min/{1.73_m2} >=60 [facility] Glucose [Mass/Vol] 103 mg/dL 74-106 [facility] Potassium [Moles/Vol] 3.6 mmol/L 3.5-5.1 [facility] Protein [Mass/Vol] 7.2 g/dL 6.4-8.2 [facility] Sodium [Moles/Vol] 143 mmol/L 136-145 [facility] Triglyceride [Mass/Vol] 72 mg/dL <=150 [facility] Urea nitrogen [Mass/Vol] 15.0 mg/dL 7.0-18.0 [facility] Urea nitrogen/Creatinine [Mass ratio] 18.8 mg/mg [facility] Laboratory - Hematology and Cell countson 03-27-2024 HbA1c (Bld) [Mass fraction] 5.3 % 4.5-6.2 [facility] Comment on above: ADA RECOMMENDED LIMI T 4.0 - 6.0ADA THERAPEUTIC TARGET < 7.0ACTION SUGGESTED> 7.0 Immature granulocytes/100 WBC (Bld) 0.0 % 0.0-0.5 [facility] Leukocytes [#/volume] correc abraham for nucleated erythrocytes in Blood by Automated counon 03-27-2024 WBC corrected for nucl RBC Auto (Bld) [#/Vol] 3.3 10 3/uL Low 4.0-11.0 [facility] Lymphocytes Auto (Bld) [#/Vo l]on 03-27-2024 Lymphocytes (Bld) [#/Vol] 1.1 10 3/uL Low 1.2-3.8 [facility] Lymphocytes/100 WBC Auto (Bl d)on 03-27-2024 Lymphocytes/100 WBC (Bld) 32.4 % 20.5-60.0 [facility] MCH Auto (RBC) [Entitic mass ]on 03-27-2024 MCH (RBC) [Entitic mass] 31.3 pg 26.7-34.0 [facility] MCHC Auto (RBC) [Mass/Vol]on 03-27-2024 MCHC (RBC) [Mass/Vol] 33.2 g/dL 29.9-35.2 [facility] MCV Auto (RBC) [Entitic vol] on 03-27-2024 MCV (RBC) [Entitic vol] 94.1 fL 81.0-99.0 [facility] [place] Monocytes Auto (Bld) [#/Vol] on 03-27-2024 Monocytes (Bld) [#/Vol] 0.4 10 3/uL 0.3-0.8 [facility] Monocytes/100 WBC Auto (Bld) on 03-27-2024 Monocytes/100 WBC (Bld) 10.6 % 1.7-12.0 [place] Neutrophils Auto (Bld) [#/Vo l]on 03-27-2024 Neutrophils (Bld) [#/Vol] 1.8 10 3/uL 1.4-6.5 [facility] Neutrophils/100 WBC Auto (Bl d)on 03-27-2024 Neutrophils/100 WBC (Bld) 54.6 % 43.0-75.0 [facility] No Panel Informationon 03-27 Eosinophils # (Auto) 0.0 10 3/uL 0.0-0.7 [facility] Immature Granulocyte # (Auto) 0.00 10 3/uL 0.00-0.03 [facility] Platelet mean volume Auto (B ld) [Entitic vol]on 03-27-2024 Platelet mean volume (Bld) [Entitic vol] 8.8 fL Low 9.5-13.5 [facility] Platelets Auto (Bld) [#/Vol] on 03-27-2024 Platelets (Bld) [#/Vol] 393 10 3/uL 150-450 [facility] RBC Auto (Bld) [#/Vol]on RBC (Bld) [#/Vol] 3.55 10 6/uL Low 4.20-5.40 [facility] Serum or plasma albumin/glob ulin mass ratioon 03-27-2024 Albumin/Globulin [Mass ratio] 0.7 {ratio} [facility] Serum or plasma anion gap de terminationon 03-27-2024 Anion gap [Moles/Vol] 12.3 mmol/L [facility] Serum or plasma total choles terol/high density lipoprotein (HDL) cholesterol mass hussain 03-27-2024 Cholesterol.total/Natalee sterol in HDL [Mass ratio] 3.9 {ratio} [facility] Comment on above: 3.3 - 4.4 LOW RISK4. 4 - 7.1 AVERAGE RISK7.1 - 11.0 MODERATE RISK>11.0 HIGH RISK Fibrin D-dimer [Presence] in Platelet poor plasma by Latex agglutinationon 03-26-2024 Fibrin D-dimer LA Ql (PPP) 1.05 mg/L FEU High <=0.59 [facility] Comment on above: RESULTS CALLED TO [...] generalizedhospitalization. DIHYDROTESTOSTERONEon 2022 Dihydrotestosterone 17 ng/dL Normal [facility] Comment on above: Result Comment: This test was developed and its performance characteristics determined by [facility]. It has not been cleared or approved by the Food and Drug Administration. Reference Range: Adult Female: 4 - 22 Performed By: #### D HT #### [facility] [address] [place] [address] Dr. Manny Eller TESTOSTERONE, FREE,DIRECT, T OTALon 12-09-2022 Free Testosterone(Direct) 1.7 pg/mL Normal 0.0-4.2 [facility] Comment on above: Result Comment: Perf ormed at: BN Performed By: #### T ESTFRD #### [facility] [address] [place] [address] Dr. Manny Eller Testosterone [Mass/Vol] 32 ng/dL Normal 4-50 [facility] Comment on above: Result Comment: Perf ormed at: CB Performed By: #### T ESTFRD #### [facility] [address] [address] [address] Manny Eller DHEA-SULFATEon 12-06-2022 DHEA-Sulfate 163.0 ug/dL Normal 41.2-243.7 [facility] Comment on above: Performed By: #### D HEASLISE #### [facility] [address] [place] [address] Dr. Manny Eller MG MAMM SCREEN 3D ELOY CADon 11-30-2022 MG MAMM SCREEN 3D ELOY CAD Patient: JENNIFER ZAMORA Exam Date: 11/30/2022 : 1970 Gender:F Ordering : DR ARMANDO MARTINEZ . Admission #: [id number] Family : Order #: [id number] CLICK HERE TO VIEW EXAM RADIOLOGY REPORT [...] Treatments None Family Cancers None LOCATION: [facility] BREAST COMPOSITION: Scattered areas fibroglandular density. [...] Gabriel MD on 11/30/2022 at 13:57 Normal [facility] COVID/FLU RT-PCRon 3 SARS-CoV-2 (COVID-19) RNA BOB+probe Ql (Unsp spec) Positive [facility] Other COVID/FLU RT-PCR Negative [facility] Other CORTISOLon 10-26-2022 Cortisol 7.8 ug/dL Normal [facility] Comment on above: Result Comment: Mervin isol AM 6.2 - 19.4 Cortisol PM 2.3 - 11.9 Performed By: #### D HT #### [facility] [address] [place] [address] Dr. Manny Eller TESTOSTERONE, FREE,DIRECT, T OTALon 10-13-2022 Free Testosterone(Direct) <0.2 Normal 0.0-4.2 [facility] Comment on above: Result Comment: Perf ormed at: BN Performed By: #### T ESTFRD #### [facility] [address] [place] [address] Dr. Manny Eller Testosterone [Mass/Vol] ng/dL Critically low 4-50 [facility] Comment on above: Result Comment: Perf ormed at: CB Performed By: #### T ESTFRD #### [facility] [address] [place] [address] Dr. Manny Eller CORTISOLon 10-12-2022 Cortisol 0.5 ug/dL Normal [facility] Comment on above: Result Comment: Mervin isol AM 6.2 - 19.4 Cortisol PM 2.3 - 11.9 Performed By: #### C ORTISO #### [facility] [address] [place] [address] Dr. Manny Eller DHEA-SULFATEon 10-12-2022 DHEA-Sulfate 16.2 ug/dL Critically low 41.2-243.7 [facility] Comment on above: Performed By: #### D HEASUL #### [facility] [address] [place] [address] Dr. Manny Eller ESTRADIOLon 10-12-2022 Estradiol 30.9 pg/mL Normal [facility] Comment on above: Result Comment: Adul t Female: Follicular phase 12.5 - 166.0 Ovulation phase 85.8 - 498.0 Luteal phase 43.8 - 211.0 Postmenopausal <6.0 - 54.7 1st trimester 215.0 - >4300.0 [place] ECLIA methodology Performed By: #### C MP, LIPID #### [facility] [address] [place] [address] Dr. Manny Eller ESTRONEon 10-12-2022 Estrone, Serum <6 Normal [facility] Comment on above: Result Comment: Rang e Adult (Premenopausal) 27 - 231 Menstrual Cycle (1-10 days) 19 - 149 Menstrual Cycle (11-20 days) 32 - 176 Menstrual Cycle (21-30 days) 37 - 200 Adult (Postmenopausal) 0 - 125 Performed By: #### E STRONE #### [facility] [address] [address] [address] Manny Eller PROGESTERONEon 10-12-2022 Progesterone <0.1 Normal [facility] Comment on above: Result Comment: Foll icular phase 0.1 - 0.9 Luteal phase 1.8 - 23.9 Ovulation phase 0.1 - 12.0 First trimester 11.0 - 44.3 Second trimester 25.4 - 83.3 Third trimester 58.7 - 214.0 Postmenopausal 0.0 - 0.1 Performed By: #### C MP, LIPID #### [facility] [address] [address] [address] Manny Eller SEX HORMONE-BINDING GLOBULIN on 10-12-2022 Sex Horm Binding Glob, Serum 55.9 nmol/L Normal 17.3-125.0 [facility] Comment on above: Performed By: #### S EXHBG #### [facility] [address] [address] [address] Manny Eller GLYCOHEMOGLOBIN A1Con 2021 ADA RECOMMENDATION SEE BELOW Normal [facility] Comment on above: Result Comment: ADA RECOMMENDED LIMIT 4.0 - 6.0 ADA THERAPEUTIC TARGET < 7.0 ACTION SUGGESTED > 7.0 Performed By: #### D HT #### [facility] [address] [place] [address] Dr. Manny Eller Glucose [Mass/Vol] 108 mg/dL Normal [facility] Comment on above: Performed By: #### D HT #### [facility] [address] [place] [address] Dr. Manny Eller HbA1c (Bld) [Mass fraction] 5.4 % Normal 4.5-6.2 [facility] Comment on above: Performed By: #### D HT #### [facility] [address] [place] [address] Dr. Manny Eller POTASSIUMon 10-11-2022 Potassium [Moles/Vol] 3.6 mmol/L Normal 3.5-5.1 [facility] Comment on above: Performed By: #### C MP, LIPID #### [facility] [address] [place] [address] Dr. Manny Eller VITAMIN D 25 OHon 10-11-2022 VIT D 25-OH 37.3 ng/mL Normal [facility] Comment on above: Performed By: #### D HT #### [facility] [address] [place] [address] Dr. Manny Eller VIT D RANGES SEE BELOW Normal [facility] Comment on above: Result Comment: <20 ng/mL Vit D deficient 20 - <30 ng/mL Vit D insufficient 30 - 100 ng/mL Vit D sufficient >100 ng/mL Potential Toxicity Performed By: #### D HT #### [facility] [address] [place] [address] Dr. Manny Eller CBC AUTO DIFFon 09-25-2022 BASO # 0.1 103/ul Normal 0.0-0.1 [facility] Comment on above: Performed By: #### C MP, LIPID #### [facility] [address] [place] [address] Dr. aMnny Eller Basophils/100 WBC (Bld) 1.1 % Normal 0.2-2.0 [facility] Comment on above: Performed By: #### C MP, LIPID #### [facility] [address] [place] [address] Dr. Manny Eller EO # 0.1 103/ul Normal 0.0-0.7 [facility] Comment on above: Performed By: #### C MP, LIPID #### [facility] [address] [place] [address] Dr. Manny Eller Eosinophils/100 WBC (Bld) 1.1 % Normal 0.9-7.0 [facility] Comment on above: Performed By: #### C MP, LIPID #### [facility] [address] [place] [address] Dr. Manny Eller Erythrocyte distribution width (RBC) [Ratio] 12.2 % Normal 11.0-15.0 [facility] Comment on above: Performed By: #### C MP, LIPID #### [facility] [address] [place] [address] Dr. Manny Eller Hematocrit (Bld) [Volume fraction] 42.9 % Normal 36.0-48.0 [facility] Comment on above: Performed By: #### C MP, LIPID #### [facility] [address] [place] [address] Dr. Manny Eller Hemoglobin (Bld) [Mass/Vol] 15.0 g/dL Normal 12.0-16.0 [facility] Comment on above: Performed By: #### C MP, LIPID #### [facility] Laboratory [address] [place] [address] Dr. Manny Eller IG # 0.01 10e3/ul Normal 0.00-0.03 [facility] Comment on above: Performed By: #### C MP, LIPID #### [facility] [address] [place] [address] Dr. Manny Eller IG % 0.2 % Normal 0.0-0.5 [facility] Comment on above: Performed By: #### C MP, LIPID #### [facility] [address] [place] [address] Dr. Manny Eller LYMPH # 1.3 103/ul Normal 1.2-3.8 [facility] Comment on above: Performed By: #### C MP, LIPID #### [facility] [address] [place] [address] Dr. Manny Eller Lymphocytes/100 WBC (Bld) 28.4 % Normal 20.5-60.0 [facility] Comment on above: Performed By: #### C MP, LIPID #### [facility] [address] [place] [address] Dr. Manny Eller MANUAL DIFF REQ NO Normal [facility] Comment on above: Performed By: #### C MP, LIPID #### [facility] [address] [place] [address] Dr. Manny Eller MCH (RBC) [Entitic mass] 32.3 pg Normal 26.7-34.0 [facility] Comment on above: Performed By: #### C MP, LIPID #### [facility] [address] [place] [address] Dr. Manny Eller MCHC (RBC) [Mass/Vol] 35.0 g/dL Normal 29.9-35.2 [facility] Comment on above: Performed By: #### C MP, LIPID #### [facility] [address] [place] [address] Dr. Manny Eller MCV (RBC) [Entitic vol] 92.5 fL Normal 81.0-99.0 [facility] Comment on above: Performed By: #### C MP, LIPID #### [facility] [address] [place] [address] Dr. Manny Eller MONO # 0.3 103/ul Normal 0.3-0.8 [facility] Comment on above: Performed By: #### C MP, LIPID #### [facility] [address] [place] [address] Dr. Manny Eller Monocytes/100 WBC (Bld) 7.0 % Normal 1.7-12.0 [facility] Comment on above: Performed By: #### C MP, LIPID #### [facility] [address] [place] [address] Dr. Manny Eller NEUT # 2.8 103/ul Normal 1.4-6.5 [facility] Comment on above: Performed By: #### C MP, LIPID #### [facility] [address] [address] [address] Manny Eller Neutrophils/100 WBC (Bld) 62.2 % Normal 43.0-75.0 [facility] Comment on above: Performed By: #### C MP, LIPID #### [facility] [address] [address] [address] Manny Eller Platelet mean volume (Bld) [Entitic vol] 9.6 fL Normal 9.5-13.5 [facility] Comment on above: Performed By: #### C MP, LIPID #### [facility] [address] [place] [address] Dr. Manny Eller PLT 322 103/ul Normal 150-450 [facility] Comment on above: Performed By: #### C MP, LIPID #### [facility] [address] [place] [address] Dr. Manny Eller RBC 4.64 106/ul Normal 4.20-5.40 [facility] Comment on above: Performed By: #### C MP, LIPID #### [facility] [address] [place] [address] Dr. Manny Eller WBC 4.6 103/ul Normal 4.0-11.0 [facility] Comment on above: Performed By: #### C MP, LIPID #### [facility] [address] [place] [address] Dr. Manny Eller LIPID PROFILEon 09-25-2022 CHOL-HDL RATIO NORM SEE BELOW Normal [facility] Comment on above: Result Comment: 3.3 - 4.4 LOW RISK 4.4 - 7.1 AVERAGE RISK 7.1 - 11.0 MODERATE RISK >11.0 HIGH RISK Performed By: #### C MP, LIPID #### [facility] [address] [place] [address] Dr. Manny Eller Cholesterol [Mass/Vol] 171 mg/dL Normal <=200 [facility] Comment on above: Performed By: #### C MP, LIPID #### [facility] [address] [place] [address] Dr. Manny Eller Cholesterol in HDL [Mass/Vol] 49 mg/dL Normal 40-60 [facility] Comment on above: Performed By: #### C MP, LIPID #### [facility] [address] [place], [place] [address] Dr. Manny Eller Cholesterol in LDL [Mass/Vol] 103.4 mg/dL Normal [facility] Comment on above: Performed By: #### C MP, LIPID #### [facility] [address] [address] [address] Manny Eller Cholesterol.total/Natalee sterol in HDL [Mass ratio] 3.5 {ratio} Normal [facility] Comment on above: Performed By: #### C MP, LIPID #### [facility] [address] [address] [address] Manny Eller HDL NORMAL > or = 60 mg/dl - LO W CARDIOVASCULAR RISK <40 mg/dl - HIGH CARDIOVASCULAR RISK Normal [facility] Comment on above: Performed By: #### C MP, LIPID #### [facility] [address] [place] [address] Dr. Manny Eller LDL CALC NORMAL SEE BELOW Normal [facility] Comment on above: Result Comment: <100 mg/dl OPTIMAL 100 - 129 mg/dl NEAR OR ABOVE OPTIMAL 130 - 159 mg/dl BORDERLINE HIGH 160 - 189 mg/dl HIGH >190 mg/dl VERY HIGH Performed By: #### C MP, LIPID #### [facility] [address] [address] [address] Manny Eller Triglyceride [Mass/Vol] 93 mg/dL Normal <=150 T [facility] Comment on above: Performed By: #### C MP, LIPID #### [facility] [address] [address] [address] Manny Eller VLDL CALC 18.6 mg/dL Normal [facility] Comment on above: Performed By: #### C MP, LIPID #### [facility] [address] [address] [address] Manny Eller PROF 14(COMP METB)on 2 022 Albumin [Mass/Vol] 3.8 g/dL Normal 3.4-5.0 [facility] Comment on above: Performed By: #### C MP, LIPID #### [facility] [address] [address] [address] Manny Eller Albumin/Globulin [Mass ratio] 1.1 {ratio} Normal [facility] Comment on above: Performed By: #### C MP, LIPID #### [facility] [address] [address] [address] Manny Eller ALP [Catalytic activity/Vol] 73 U/L Normal 46-116 [facility] Comment on above: Performed By: #### C MP, LIPID #### [facility] [address] [address] [address] Manny Eller ALT [Catalytic activity/Vol] 39 U/L Normal 14-59 [facility] Comment on above: Performed By: #### C MP, LIPID #### [facility] [address] [address] [address] Manny Eller Anion gap [Moles/Vol] 11.6 mmol/L Normal [facility] Comment on above: Performed By: #### C MP, LIPID #### [facility] [address] [address] [address] Manny Eller AST [Catalytic activity/Vol] 23 U/L Normal 15-37 [facility] Comment on above: Performed By: #### C MP, LIPID #### [facility] [address] [address] [address] Manny Eller Bilirubin [Mass/Vol] 0.7 mg/dL Normal 0.2-1.0 [facility] Comment on above: Performed By: #### C MP, LIPID #### [facility] [address] [address] [address] Manny Eller Calcium [Mass/Vol] 9.3 mg/dL Normal 8.5-10.1 [facility] Comment on above: Performed By: #### C MP, LIPID #### [facility] [address] [address] [address] Manny Eller Chloride [Moles/Vol] 101 mmol/L Normal 98-107 [facility] Comment on above: Performed By: #### C MP, LIPID #### [facility] [address] [address] [address] Manny Eller CO2 [Moles/Vol] 31.2 mmol/L Normal 21.0-32.0 [facility] Comment on above: Performed By: #### C MP, LIPID #### [facility] [address] [address] [address] Manny Eller Creatinine [Mass/Vol] 0.87 mg/dL Normal 0.55-1.02 [facility] Comment on above: Performed By: #### C MP, LIPID #### [facility] [address] [address] [address] Manny Eller EGFR-AF HONDURAN >60 Normal >=60 [facility] Comment on above: Performed By: #### C MP, LIPID #### [facility] [address] [place] [address] Dr. Manny Eller EGFR-NON AF HONDURAN >60 Normal >=60 [facility] Comment on above: Performed By: #### C MP, LIPID #### [facility] [address] [address] [address] Manny Eller Globulin (S) [Mass/Vol] 3.6 g/dL Normal [facility] Comment on above: Performed By: #### C MP, LIPID #### [facility] [address] [address] [address] Manny Eller Glucose [Mass/Vol] 124 mg/dL Critically high 74-106 [facility] Comment on above: Performed By: #### C MP, LIPID #### [facility] [address] [address] [address] Manny Eller Potassium [Moles/Vol] 2.8 mmol/L Critically low 3.5-5.1 [facility] Comment on above: Performed By: #### C MP, LIPID #### [facility] [address] [address] [address] Manny Eller Protein [Mass/Vol] 7.4 g/dL Normal 6.4-8.2 [facility] Comment on above: Performed By: #### C MP, LIPID #### [facility] [address] [place], [place] [address] Dr. Manny Eller Sodium [Moles/Vol] 141 mmol/L Normal 136-145 [facility] Comment on above: Performed By: #### C MP, LIPID #### [facility] [address] [place], [place] [address] Dr. Manny Eller Urea nitrogen [Mass/Vol] 15.0 mg/dL Normal 7.0-18.0 [facility] Comment on above: Performed By: #### C MP, LIPID #### [facility] [address] [place], [place] [address] Dr. Manny Eller Urea nitrogen/Creatinine [Mass ratio] 17.2 mg/mg Normal [facility] Comment on above: Performed By: #### C MP, LIPID #### [facility] [address] [address] [address] Manny Eller Office Visit (Cardiology)on 07-18-2022 [...] a smoker Tobacco Use Screening; Status:Complete; Done: [id number] Patient Instructions Please bring all medicines, vitamins, [...] Recorded: 18Jul2022 01:41PM Heart Rate68, L Radial Rcvwqbyz792, LUE, Sitting Imzbnahii69, LUE, Sitting Height5 ft 7 in Cnwygx199 lb 4 oz BMI Ccdqezzikj59.54 kg/m2 BSA Ca (more content not included)... Normal [employer] Tobacco Screening.on Adult depression screening assessment No -[facility] [employer] 250 DO Work Phone: Tobacco use status CPHS b) No [facility] [employer] 250 DO Work Phone: CT HEAD WO [...] ADAIR SCHMITT Date: 2022-07-15 11:31 Normal [facility] CTA NECK WO W CONon 07-15-20 22 [...] by: CARLOS RUBI Date: 2022-07-15 14:56 Normal [facility] Urinalysis - AUTOMATEDon Appearance (U) clear [employer] Other Bilirubin Ql (U) Negative [employer] Other Color (U) orange yellow [employer] Other Glucose Ql (U) 100 [employer] Other Hemoglobin Ql (U) small [employer] Other Ketones Ql (U) trace [employer] Other Nitrite Ql (U) Positive [employer] Other pH (U) 6.5 [pH] [employer] Other Protein Ql (U) trace [employer] Other Specific gravity (U) [Rel density] 1.025 [employer] Other Urobilinogen (U) [Mass/Vol] 1.0 mg/dL [employer] Other Urinalysis - AUTOMATED No rt [employer] Other Urine Cultureon 01-01-2022 Bacteria identified Cx Nom (U) Reason for Exam Dysuria Urine Reason for Exam: Dysuria : Urine No Growth 2 Days PERFORMED BY: [address] [place] [address] PATHOLOGIST [employer] MANAGEMENT SPECIALIST DENIS MULLER M.D. [facility] Comment on above: Performed By: #### C UU #### [address] Office Visit (Cardiology)on 11-09-2021 Follow-up visit [...] and in the presence of Dr. Joao Ramírez MD. All medical record entries made by [...] Vital Signs Recorded: 09Nov2021 02:37PMRecorded: 09Nov2021 02:32PM Sgtzorai735, LUE, Ivzqzzw485, LUE, Sitting Sdwkeljcn40, LUE, Idyyniy80, LUE, Sitting Heart Rate69, L Brachial Artery Height5 ft 7 in Lfqsgh091 lb BMI Kpsrgpiegm25.96 kg/m2 BSA Calculated2.17 Tobacco Useb) No Fall Screeningc) Not medical (more content not included)... Normal [employer] Tobacco Screening.on 022 Fall risk assessment c) Not medically indicated [facility] 250 DO Work Phone: Tobacco use status CPHS b) No M [facility] 250 DO Work Phone: COVID Quick Testingon 2020 Result Negative [employer] [facility] [employer] Other [facility] CARDIAC STRESS/REST INJE CTIONon 04-05-2021 [facility] CARDIAC STRESS/REST INJECTION Patient Name: JENNIFER ZAMORA STUDY: MYOCARDIAL PERFUSION STRESS TEST WITH EXERCISE Performing facility: [facility], [address] [place] [address], [address] Provider: Joao Ramírez MD PCP: Dr. Beatrice Das Supervising provider: Joao Ramírez MD INDICATION: Abnormal EKG; Palpitations NSVT HISTORY: Gender: F; Age: 50 y/o ; Height: 170.18 cm; Weight: 595.6391687 kg. HTN; Palpitations; SOB; Denies smoking. COMPARISON: No comparison. ACCESSION NUMBER(S): [id number]; [id number]; [id number] ORDERING CLINICIAN: JOAO RAMÍREZ TECHNIQUE: TWO DAY protocol. Stress injection: Date:04-05-21, [...] available for comparison. Electronically signed by: JOAO RAMÍREZ MD [facility] Vital Signs Date Time Vital Sign Value Performing Clinician Facility 06-08-2025 08:40-0400 Body height 170.18 cm Grady [employer] DO Work Phone: [facility] 06-08-2025 08:40-0400 Body mass index (BMI) [Ratio] 26 kg/m2 Grady Ball DO Work Phone: [facility] 06-08-2025 08:40-0400 Body weight 75.52 kg Grady Ball DO Work Phone: [facility] 06-08-2025 08:40-0400 Diastolic blood pressure 92 mm[Hg] Grady Ball DO Work Phone: [facility] 06-08-2025 08:40-0400 Heart rate 76 /min Grady Ball DO Work Phone: [facility] 06-08-2025 08:40-0400 Respiratory rate 12 /min Grady Ball DO Work Phone: [facility] 06-08-2025 08:40-0400 Systolic blood pressure 137 mm[Hg] Grady Ball DO Work Phone: [facility] 05-05-2025 14:43-0400 Body height 170.18 cm [employer] DO Work Phone: [facility] 05-05-2025 14:43-0400 Body mass index (BMI) [Ratio] 24.9 kg/m2 Grady Ball DO Work Phone: [facility] 05-05-2025 14:43-0400 Body temperature 98.1 [degF] Grady Ball DO Work Phone: [facility] 05-05-2025 14:43-0400 Body weight 72.17 kg Grady Ball DO Work Phone: [facility] 05-05-2025 14:43-0400 Diastolic blood pressure 89 mm[Hg] Grady Ball DO Work Phone: [facility] 05-05-2025 14:43-0400 Heart rate 86 /min Grady Ball DO Work Phone: [facility] 05-05-2025 14:43-0400 Respiratory rate 14 /min Grady Ball DO Work Phone: [facility] 05-05-2025 14:43-0400 SaO2% (BldA) [Mass fraction] 99 % Grady Ball DO Work Phone: [facility] 05-05-2025 14:43-0400 Systolic blood pressure 133 mm[Hg] Grady Ball DO Work Phone: [facility] 12-10-2024 14:39-0500 Body height 170.18 cm [facility] 12-10-2024 14:39-0500 Body mass index (BMI) [Ratio] 25.7 kg/m2 [facility] 12-10-2024 14:39-0500 Body weight 74.44 kg [facility] 12-10-2024 14:39-0500 Diastolic blood pressure 84 mm[Hg] [facility] 12-10-2024 14:39-0500 Heart rate 103 /min [facility] 12-10-2024 14:39-0500 Respiratory rate 12 /min [facility] 12-10-2024 14:39-0500 Systolic blood pressure 147 mm[Hg] [facility] 12-03-2024 13:19-0500 Respiratory rate 18 /min Krish Orlop DO [facility] 12-03-2024 10:30-0500 Body temperature 97.7 [degF] Krish Orlop DO Work Phone: [facility] [employer] 12-03-2024 10:30-0500 Diastolic blood pressure 76 mm[Hg] Krish Orlop DO Work Phone: [facility] 12-03-2024 10:30-0500 Heart rate 99 /min Krish Orlop DO Work Phone: [facility] 12-03-2024 10:30-0500 SaO2% (BldA) [Mass fraction] 99 % Krish Orlop DO Work Phone: [facility] [employer] 12-03-2024 10:30-0500 Systolic blood pressure 128 mm[Hg] Krish Orlop DO Work Phone: [facility] [employer] 11-30-2024 21:15-0500 Body height 170.2 cm Krish Orlop DO Work Phone: [facility] [employer] 11-30-2024 21:15-0500 Body mass index (BMI) [Ratio] 26.28 kg/m2 Krish Orlop DO Work Phone: [facility] [employer] 11-30-2024 21:15-0500 Body weight 76.11 kg Krish Orlop DO Work Phone: [facility] 10-21-2024 14:59-0500 Body height 170.18 cm [facility] 10-21-2024 14:59-0500 Body mass index (BMI) [Ratio] 26.3 kg/m2 [facility] 10-21-2024 14:59-0500 Body weight 76.2 kg [facility] 10-21-2024 14:59-0500 Diastolic blood pressure 98 mm[Hg] [facility] 10-21-2024 14:59-0500 Diastolic blood pressure 89 mm[Hg] [facility] 10-21-2024 14:59-0500 Heart rate 80 /min [facility] 10-21-2024 14:59-0500 Respiratory rate 12 /min [facility] 10-21-2024 14:59-0500 Systolic blood pressure 158 mm[Hg] [facility] 10-21-2024 14:59-0500 Systolic blood pressure 139 mm[Hg] [facility] 06-13-2024 17:20-0400 Body height 170.18 cm [facility] 06-13-2024 17:20-0400 Body mass index (BMI) [Ratio] 24.1 kg/m2 [facility] 06-13-2024 17:20-0400 Body temperature 97.1 [degF] [facility] 06-13-2024 17:20-0400 Body weight 69.96 kg [facility] 06-13-2024 17:20-0400 Diastolic blood pressure 93 mm[Hg] [facility] 06-13-2024 17:20-0400 Heart rate 83 /min [facility] 06-13-2024 17:20-0400 Respiratory rate 16 /min [facility] 06-13-2024 17:20-0400 SaO2% (BldA) [Mass fraction] 99 % [facility] 06-13-2024 17:20-0400 Systolic blood pressure 136 mm[Hg] [facility] 02-19-2023 16:30-0400 Body height 170.18 cm Grady Ball Other [employer] [facility] [employer] Other 02-19-2023 16:30-0400 Body mass index (BMI) [Ratio] 25.12 kg/m2 Grady Ball Other [employer] Other 02-19-2023 16:30-0400 Body weight 72.76 kg Grady Ball Other [employer] [facility] [employer] Other 02-19-2023 16:30-0400 Diastolic blood pressure 87 mm[Hg] Grady Ball Other [employer] Other 02-19-2023 16:30-0400 Respiratory rate 12 /min Grady Ball Other [employer] Other 02-19-2023 16:30-0400 Systolic blood pressure 146 mm[Hg] Grady Ball Other [employer] Other 11-20-2022 11:50-0500 Body height 170.18 cm Clare Crawfordmond Other [employer] Other 11-20-2022 11:50-0500 Body mass index (BMI) [Ratio] 24.68 kg/m2 Clare Margoth Other [employer] Other 11-20-2022 11:50-0500 Body temperature 98.2 [degF] Clare Crawfordmond Other [employer] Other 11-20-2022 11:50-0500 Body weight 71.49 kg Clare Crawfordmond Other [employer] Other 11-20-2022 11:50-0500 Respiratory rate 18 /min Clare Margoth Other [employer] Other 11-20-2022 11:50-0500 SaO2% (BldA) [Mass fraction] 97 % Clare Margoth Other [employer] Other 07-18-2022 13:41-0400 Body height 170.18 cm Grady Toney Ball Work Phone: [facility] 250 DO Work Phone: 07-18-2022 13:41-0400 Body mass index (BMI) [Ratio] 28.54 kg/m2 Grady Toney Ball Work Phone: [facility] 250 DO Work Phone: 07-18-2022 13:41-0400 Body surface area Derived from formula 1.94 m2 Grady E Ball Work Phone: [facility] 250 DO Work Phone: 07-18-2022 13:41-0400 Body weight 82.67 kg Grady E Ball Work Phone: [facility] 250 DO Work Phone: 07-18-2022 13:41-0400 Diastolic blood pressure 82 mm[Hg] Grady E Ball Work Phone: [facility] 250 DO Work Phone: 07-18-2022 13:41-0400 Heart rate 68 /min Grady Toney Ball Work Phone: [facility] 250 DO Work Phone: 07-18-2022 13:41-0400 Systolic blood pressure 130 mm[Hg] Grady Toney Ball Work Phone: [facility] 250 DO Work Phone: 02-21-2022 14:42-0400 Blood Pressure Location MABLE HAZEL [facility] 02-21-2022 14:42-0400 Diastolic blood pressure 84 mm[Hg] MABLE CHARLEE [facility] 02-21-2022 14:42-0400 Heart rate 84 /min MABLE MACIASRY [facility] 02-21-2022 14:42-0400 Systolic blood pressure 123 mm[Hg] MABLE HAZEL [facility] 01-01-2022 15:45-0400 Body height 170.18 cm Clare Crawfordmond Other [employer] Other 01-01-2022 15:45-0400 Body mass index (BMI) [Ratio] 34.45 kg/m2 Clare Crawfordmond Other [employer] Other 01-01-2022 15:45-0400 Body temperature 97.8 [degF] Clare Crawfordmond Other [employer] Other 01-01-2022 15:45-0400 Body weight 99.79 kg Clare Crawfordmond Other [employer] Other 01-01-2022 15:45-0400 Diastolic blood pressure 86 mm[Hg] Clare Crawfordmond Other [employer] Other 01-01-2022 15:45-0400 Respiratory rate 18 /min Clare Crawfordmond Other [employer] Other 01-01-2022 15:45-0400 SaO2% (BldA) [Mass fraction] 100 % Clare Margoth Other [employer] Other 01-01-2022 15:45-0400 Systolic blood pressure 129 mm[Hg] Clare Margoth Other [employer] Other 11-09-2021 14:37-0500 Diastolic blood pressure 90 mm[Hg] Grady Das Work Phone: [facility] 250 DO Work Phone: 11-09-2021 14:37-0500 Systolic blood pressure 142 mm[Hg] Grady E Ball Work Phone: [facility] 250 DO Work Phone: 11-09-2021 14:32-0500 Body height 170.18 cm Grady E Ball Work Phone: [facility] 250 DO Work Phone: 11-09-2021 14:32-0500 Body mass index (BMI) [Ratio] 36.96 kg/m2 Grady E Ball Work Phone: [facility] 250 DO Work Phone: 11-09-2021 14:32-0500 Body surface area Derived from formula 2.17 m2 Grady E Ball Work Phone: [facility] 250 DO Work Phone: 11-09-2021 14:32-0500 Body weight 107.05 kg Grady E Ball Work Phone: [facility] 250 DO Work Phone: 11-09-2021 14:32-0500 Diastolic blood pressure 89 mm[Hg] Grady E Ball Work Phone: [facility] 250 DO Work Phone: 11-09-2021 14:32-0500 Heart rate 69 /min Grady E Ball Work Phone: [facility] 250 DO Work Phone: 11-09-2021 14:32-0500 Systolic blood pressure 146 mm[Hg] Grady E Ball Work Phone: [facility] 250 DO Work Phone: 08-03-2021 15:45-0400 Body height 170.18 cm Clare Justin Other [employer] Other 08-03-2021 15:45-0400 Body mass index (BMI) [Ratio] 37.59 kg/m2 Clare Justin Other [employer] Other 08-03-2021 15:45-0400 Body temperature 99.2 [degF] Clare Justin Other [employer] Other 08-03-2021 15:45-0400 Body weight 108.86 kg Clare Justin Other [employer] Other 08-03-2021 15:45-0400 Respiratory rate 18 /min Clare Justin Other [employer] Other 08-03-2021 15:45-0400 SaO2% (BldA) [Mass fraction] 97 % Clare Justin Other [employer] Other Encounters Encounter Date Encounter Type Care Provider Facility Start: 06-18-2025 ambulatory Rosmery Bronson Facility: [facility] [place] Start: 06-08-2025 End: 06-08-2025 ambulatory Grady Das DO Work Phone: [facility] Work Phone: Start: 06-08-2025 End: 06-08-2025 Patient encounter procedure Grady Pippa DO -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 Lue Facility:[facility] [place] Start: 04-27-2025 End: 04-27-2025 Patient encounter procedure Rosmery M. Lue [facility] Start: 04-23-2025 ambulatory Rosmery Lue Facility:[facility] Start: 12-10-2024 End: 12-10-[address] [facility] Work Phone: Start: 12-10-2024 End: 12-10-2024 Patient encounter procedure [facility] Work Phone: Start: 12-04-2024 Non-patient / Non-visit [facility] Work Phone: Start: 11-30-2024 End: 12-03-2024 Evaluation and management of inpatient Krish Laura Jhon DO Work Phone: [facility] [place] Comment on above: Gallstones Start: 11-30-2024 Non-patient / Non-visit [facility] Phys[facility] Work Phone: Start: 10-21-2024 End: 10-21-[address] [facility] Work Phone: Start: 10-21-2024 End: 10-21-2024 Encounter for general adult medical examination without abnormal findings [facility] Start: 10-21-2024 End: 10-21-2024 Patient encounter procedure [facility] Work Phone: Start: 10-19-2024 Patient encounter status [facility] Start: 10-14-2024 Non-patient / Non-visit [facility] Physician [facility] Work Phone: Start: 06-23-2024 End: 06-23-[address] [facility] Work Phone: Start: 06-23-2024 End: 06-23-2024 Patient encounter procedure [facility] Physician [facility] Work Phone: Start: 06-13-2024 End: 06-13-[address] [facility] Work Phone: Start: 06-13-2024 End: 06-13-2024 Patient encounter procedure [facility] Physician [facility] Work Phone: Start: 06-05-2024 [...] 06-05-2024 Periodic preventive med est patient 40-64yrs Armando Juan DO Work Phone: [facility] Comment on above: Well woman exam with routine gynecological exam; Breast cancer screening by mammogram; Postmenopausal state; Acute vaginitis; Anorgasmia of female Start: 06-05-2024 Non-patient / Non-visit [facility] Physician [facility] Work Phone: Start: 06-05-2024 End: 06-05-2024 ambulatory ARMANDO JUAN Not Available Start: 05-21-2024 End: 05-21-2024 ambulatory JAGUAR PERKINS Not Available Start: 05-05-2024 End: 05-05-[address] [facility] Work Phone: Start: 05-05-2024 End: 05-05-2024 Patient encounter procedure [facility] Phys[facility] Work Phone: Start: 03-27-2024 Non-patient / Non-visit [facility] Physician [facility] Work Phone: Start: 03-26-2024 Non-patient / Non-visit [facility] Physician [facility] Work Phone: Start: 02-01-2024 End: 02-01-[address] [facility] Work Phone: Start: 02-01-2024 End: 02-01-2024 Patient encounter procedure [facility] Work Phone: Start: 01-08-2024 Non-patient / Non-visit [facility] Physician [facility] Work Phone: Start: 11-13-2023 End: 11-13-2023 ambulatory Grady Das Other [employer] Other Start: 11-13-2023 Telephone encounter Grady Das [facility] Start: 08-21-2023 End: 08-21-2023 ambulatory Grady Das Other [employer] Other Start: 08-21-2023 Nursing evaluation o f patient and report Grady Das [facility] Start: 07-11-2023 End: 07-11-2023 ambulatory Grady Das Other [employer] Other Start: 07-11-2023 Telephone encounter Grady Das [facility] Start: 05-28-2023 End: 05-28-2023 ambulatory Grady Das Other [employer] Other Start: 05-28-2023 Office outpatient vi sit 15 minutes Grady Das [facility] Start: 05-02-2023 End: 05-02-2023 ambulatory Grady Das Other [employer] Other Start: 05-02-2023 Nursing evaluation o f patient and report Grady Das [facility] Start: 02-19-2023 End: 02-19-2023 ambulatory Grady Das Other [employer] Other Start: 02-19-2023 Office outpatient vi sit 15 minutes Grady Das [facility] Start: 02-07-2023 End: 02-08-[address] GRADY DAS Facility:[facility] Start: 01-23-2023 End: 01-23-2023 ambulatory Grady Das Other [employer] Other Start: 01-23-2023 Telephone encounter Grady Das FP [facility] Start: 12-20-2022 End: 12-20-2022 ambulatory Grady Das Other [employer] Other Start: 12-20-2022 Nursing evaluation o f patient and report Grady Das [facility] Start: 12-05-2022 End: 12-06-[address] GRADY DAS Facility:[facility] Start: 11-30-2022 End: 12-01-[address] ARMANDO MARTINEZ . Facility:[facility] Start: 11-29-[address] GRADY DAS Facili ty:[facility] Start: 11-20-2022 End: 11-20-2022 ambulatory Clare Justin Other [employer] Other Start: 11-20-2022 Office outpatient vi sit 15 minutes Clare Justin [facility] Start: 11-16-2022 (Televisit) Televisit Gela Ortiz F [facility] Start: 11-16-2022 End: 11-16-2022 ambulatory Gela Ortiz Other [employer] Other Start: 10-25-2022 End: 10-26-[address] ARMANDO MARTINEZ . Facility:[facility] Start: 10-11-2022 End: 10-12-[address] ARMANDO MARTINEZ . Facility:[facility] Start: 10-11-2022 End: 10-12-[address] GRADY DAS Facility:[facility] Start: 09-30-2022 Encounter for genera l adult medical examination without abnormal findings DR GRADY DAS [facility] Start: 09-25-2022 End: 09-26-[address] GRADY DAS Facility:[facility] Start: 09-25-2022 End: 09-26-2022 Encounter for general adult medical examination without abnormal findings DR GRADY DAS Facility:[facility] Start: 09-01-2022 Adult health examination Guero napoleon Das Other [facility] [employer] Other Start: 09-01-2022 Gynecological examination normal Grady Das Other [facility] Other Start: 07-18-2022 Office outpatient vi sit 15 minutes Grady Das Work Phone: [facility] 250 DO Work Phone: Start: 07-18-[address] Joao Ramírez Facility: Start: 07-15-2022 End: 07-15-2022 ambulatory KELLY CAMP . Facility:[facility] Start: 03-02-2022 End: 03-02-2022 Patient encounter procedure Yinka [facility] Start: 02-21-2022 End: 02-21-2022 Patient encounter procedure MABLE HAZEL [facility] Start: 01-01-2022 End: 01-01-2022 ambulatory Clare Justin Other [employer] Other Start: 01-01-2022 Office outpatient vi sit 15 minutes Clare Justin [facility] Start: 11-09-2021 Office outpatient vi sit 25 minutes Grady Das Work Phone: -[facility] 250 DO Work Phone: Start: 11-09-[address] 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 - [employer] Work Phone: Start: 12-02-2024 End: 12-02-2024 Laparoscopy surg cholecystectomy Glen Arreola MD Work Phone: Start: 12-02-2024 Mri abdomen w/o & w/contrast material Glen Arreloa MD Work Phone: Start: 12-01-2024 Basic metabolic panel calcium total Corinna Rosenbergty INSULATION INSPECTOR Work Phone: Start: 12-01-2024 Hepatic function panel Corinna Garcia rty INSULATION INSPECTOR Work Phone: Start: 12-01-2024 Basic metabolic panel calcium total Cindy Kapadia PA Work Phone: Start: 06-05-2024 IGP,APTIMA HPV,AGE GDLN Armando Juan DO Work Phone: Start: 11-30-2022 Mammography Armando Juan DO Work Phone: Start: 01-09-2022 Microscopic observation [Identifier] in Cervix by Cyto stain Armando Juan DO Work Phone: Appendectomy Grady Das Work Phone: Appendectomy MABLE HAZEL Depression screening Jasper Das Other History of cholecystectomy S/P cholecyste ctomy Grady aDs DO Hysterectomy Grady Das Work Phone: Hysterectomy MABLE HAZEL Ligation of fallopian tube B enjanapoleon Das Work Phone: Ligation of fallopian tube J ZOEY HAZEL Operation on bladder Benjami n Feng Das Work Phone: Screening for malign ant neoplasm of breast Grady Das Other Total colonoscopy Grady Das Work Phone: Plan of Treatment Date Care Activity Detail Author Start: 11-04-2027 Screening for malign ant neoplasm of colon [facility] Start: 01-09-2027 Screening for malign ant neoplasm of cervix [facility] Start: 11-21-2026 DTaP/Tdap/Td vaccine (2 - Td or Tdap) DTaP/Tdap/Td vaccine (2 - Td or Tdap) [facility] Start: 11-30-2024 Screening for malign ant neoplasm of breast Breast cancer screen [facility] Start: 09-06-2024 Screening for malign ant neoplasm of colon [facility] Start: 06-15-2024 COVID-19 Vaccine ( season) COVID-19 Vaccine ( season) [facility] Start: 06-15-2024 Influenza vaccination Influenza Vacc ine (#1) [facility] Start: 06-05-2024 End: 06-05-2025 DXA Skeletal system Views for bone density DEXA bone density Imaging Routine Postmenopausal state Expected: 06/05/2024 (Approximate), Expires: 06/05/2025 [facility] Comment on above: Expected: 06/05/2024 (Approximate), Expires: 06/05/2025 Start: 06-05-2024 End: 08-05-2025 MG Breast - bilateral Screening Bilateral screening mammogram Imaging Routine Breast cancer screening by mammogram Expected: 06/05/2024 (Approximate), Expires: 08/05/2025 [facility] Work Phone: Comment on above: Expected: 06/05/2024 (Approximate), Expires: 08/05/2025 Start: 06-05-2024 End: 06-05-2024 Patient encounter procedure 06/05/2024 11:50 AM EDT Office Visit [facility] [address] [place] [id number] Armando Martinez, DO [address] [place] [address] Arrived [facility] Comment on above: Arrived Start: 05-15-2024 Influenza vaccination Flu vaccine (# 1) [facility] Start: 11-30-2023 Screening for malign ant neoplasm of breast Mammogram [facility] Start: 07-24-2023 FUV, Provider: Joao Ramírez, Status: Pen, Time: 2:00 PM FUV, Provider: Joao Ramírez, Status: Pen, Time: 2:00 PM [facility] [employer] 250 DO Work Phone: Start: 07-18-2022 FUV, Provider: Joao Ramírez, Status: Pen, Time: 1:40 PM FUV, Provider: Joao Ramírez, Status: Pen, Time: 1:40 PM [facility] [employer] 250 DO Work Phone: Start: 2019 Pneumococcal 50+ yea rs Vaccine (1 of 1 - PCV) Pneumococcal 50+ years Vaccine (1 of 1 - PCV) [facility] Start: 2019 Shingles vaccine (1 of 2) Shingles vaccine (1 of 2) [facility] Start: 2014 Screening for malign ant neoplasm of colon [facility] Start: 2009 Lipid panel Lipids [facility] Start: 1999 Screening for malign ant neoplasm of cervix [facility] Start: 1990 Screening for malign ant neoplasm of cervix Pap smear [facility] Start: 1988 Hepatitis B vaccine (1 of 3 - 19+ 3-dose series) Hepatitis B vaccine (1 of 3 - 19+ 3-dose series) [employer] Start: 1987 Hepatitis C screening Hepatitis C sc reen [employer] Start: 1984 HIV screening HIV screen [facility] Start: 1981 Depression Screen Depression Screen [employer] Start: 1969 Screening for malign ant neoplasm of colon [facility] Oxygen therapy [[facility] [place]] Initiate Oxygen Therapy Protocol Respiratory Care Routine As Needed until discontinued starting 11/30/2024 [employer] Comment on above: As Needed until disc ontinued starting 11/30/2024 Pathology study Surgical Patholo gy Lab Routine Gallstones Release Upon Ordering for 1 Occurrences starting 12/02/2024 [employer] Comment on above: Release Upon Orderin g for 1 Occurrences starting 12/02/2024 End: 12-02-2024 SURGICAL PATHOLOGY REPORT SURGICAL PATHOLOGY REPORT Lab Routine Once for 1 Occurrences starting 12/02/2024 until 12/02/2024 [employer] Comment on above: Once for 1 Occurrenc es starting 12/02/2024 until 12/02/2024 THIN PREP TIS PAP AN D HR HPV DNA THIN PREP TIS PAP AND HR HPV DNA Pathology and Cytology Routine Well woman exam with routine gynecological exam Ordered: 06/05/2024 [facility] Comment on above: Ordered: 06/05/2024 Urine culture [facility] Immunizations Immunization Date Immunization Notes Care Provider Clyde daniels 01-27-2021 Pfizer-BioNTech COVID-19 Vacc 30 MCG/0.3ML Intramuscular Suspension Grady Das Work Phone: [facility] DO Work Phone: 01-05-2021 Pfizer-BioNTech COVID-19 Vacc 30 MCG/0.3ML Intramuscular Suspension Grady [facility] Work Phone: 11-21-2016 influenza, intraderm al, quadrivalent, preservative free, injectable Grady Das Work Phone: [facility] 250 DO Work Phone: 11-21-2016 tetanus toxoid, redu evie diphtheria toxoid, and acellular pertussis vaccine, adsorbed Grady Das Work Phone: [place] [address] DO Work Phone: 11-21-2016 influenza virus vaccine, unspecified formulation Armando Martinez DO Work Phone: [facility] 08-24-2009 novel [id number], preservative-free, injectable Grady Das Work Phone: [place] [address] DO Work Phone: Payers Date Payer Category Payer Unknown [id number] 2023 Unknown 2023 [place] [id number] 1969 Unknown [id number] 2.16. [id number] 1969 Unknown [id number] 2.16. 840.1.947071.3.579.2.356 1969 Unknown [id number] 2.16.84 0.1.646465.3.579.2.593 1969 Unknown [id number] 2.16.84 0.1.348259.3.579.2.593 1969 Unknown [id number] 2.16.84 0.1.527322.3.579.2.593 1969 Unknown [id number] 2.16.84 0.1.812576.3.579.2.593 1969 Unknown [id number] 2.16.84 0.1.708456.3.579.2.593 1969 Unknown [id number] 2.16.84 0.1.385037.3.579.2.593 1969 Unknown [id number] 2.16.84 0.1.571352.3.579.2.593 1969 Unknown [id number] 2.16.84 0.1.983675.3.579.2.593 1969 Unknown [id number] 2.16.84 0.1.327745.3.579.2.593 1969 Unknown [id number] 2.16.84 0.1.425871.3.579.2.1259 1969 Unknown [id number] 2.16.84 0.1.144281.3.579.2.1259 1969 Unknown [id number] 2.16.8 40.1.445403.3.579.2.177 1969 Unknown [id number] 2.16.8 40.1.529636.3.579.2.727 1969 Unknown [id number] 2.16.8 40.1.723954.3.579.2.727 1969 Unknown [id number] 2.16.8 40.1.750207.3.579.2.727 1969 Unknown [id number] 2.16.8 40.1.020326.3.579.2.727 1969 Unknown [id number] 2.16.8 40.1.023963.3.579.2.727 1969 Unknown [id number] 2.16.8 40.1.898825.3.579.2.727 1960 Medicaid [id number] 2. [id number] 1959 Self-pay 1959 Unknown [id number] 2.16. 840.1.892363.19 Private Health Insurance [id number] Social History Date Type Detail Facility Start: 11-30-2024 End: 12-02-2024 No alcohol use No alcohol use [employer] Other Start: 02-21-2022 End: 06-13-2024 Tobacco smoking status Never smoked tobacco (finding) [facility] [place] Tobacco smoking status Never [facility] Start: 11-30-2024 End: 12-02-2024 Sex Assigned At Female [employer] Other Start: 1970 Sex Assigned At Female [facility] Start: 1970 Sex assigned at Not on file [facility] Start: 10-21-2024 End: 12-10-2024 Sex Female (finding) [facility] Start: 12-02-2024 Tobacco use and exposure Smokeless tobacco non-user [employer] Start: 12-03-2024 Alcoholic beverage intake Ex-drinker (finding) [employer] Has the [employer], or [employer] threatened to shut off services in your home in past 12Mo No [employer] (I/We) worried [facility] er (my/our) food would run out before (I/we) got money to buy more. Never true [employer] Sexual Orientation [facility] [place] Start: 01-26-2010 Sex Male (finding) [facility] Medical Equipment Procedure Code Equipment Code Equipment Origin al Text Equipment Identifier Dates Clip Int L Polym er Lexx Lig Hem O Lexx (6ea/Pk) - [id number] [facility] Start: 12-02-2024 Clinical Notes 08-03-2021 to 06-04-2025 Note Date & Type Note Facility 06-04-2025 Note Progress Note-Physic jeanine Patient: JENNIFER ZAMORA Age: 54 years Sex: Female : 1970 Associated Diagnoses: None Author: Fabián Campbell Jr, DO Preoperative Information Anesthesia Preop Info: Time patient last ate or drank 06/02/2025 00:00:00. Anesthesia history: Patient history: None. Family history+: None. Informed consent: Signed by patient. Re-evaluation prior to induction: Initial evaluation reviewed: No significant change. Review of Systems Eye: Negative except as documented in history of present illness. Ear/Nose/Mouth/Throat: Negative except as documented in history of present illness. Respiratory: Negative except as documented in history of present illness. Cardiovascular: Negative except as documented in history of present illness. Musculoskeletal: Negative except as documented in history of present illness. Neurologic: Negative except as documented in history of present illness. Health Status Allergies: Allergic Reactions (Selected) No Known Medication Allergies Problem list: All Problems Unspecified urethral stricture, female / SNOMED CT 426800377 / Confirmed Renal mass / SNOMED CT 563256558 / Confirmed Recurrent UTI / SNOMED CT 737170616 / Confirmed Hypertension / SNOMED CT 2298967694 / Confirmed Histories Procedure history: Appendectomy (609465507). Hysterectomy (975035069). Tubal ligation (525591055). Cholecystectomy; (56394). Social History Social & Psychosocial Habits Tobacco 04/27/2025 Tobacco Use: Never (less than 100 in l Smokeless tobacco use: Never . Physical Examination Airway: Mallampati classification: II (soft palate, fauces, uvula visible). Respiratory: adequate air exchange. Cardiovascular: Regular rhythm. Plan [place] [employer] Anesthesiologists (ASA) physical status classification: Class II. Anesthetic Preoperative Plan: Anesthesia General, and Patient educated on benefits, alternatives and inherent risk of anesthesia including, but not all inclusive, Allergic reactions, dental damage, nerve damage and cardio-pulmonary complications and wishes to proceed with anesthetic plan.. [facility] Comment on above: Result Comment: Elec tronically Signed By: Fabián Campbell Jr, DO\.br\Date and Time Signed: 06/04/25 12:14 EDT 06-04-2025 Note Progress Note-Physic jeanine Patient: JENNIFER ZAMORA Age: 54 years Sex: Female : 1970 Associated Diagnoses: None Author: Fabián Campbell Jr, DO Postoperative Information Postoperative disposition: Postoperative disposition: To PACU. Optimetrix number: Optimetrix number [id number]. Anesthetic utilized: General. Health Status Allergies: Allergic Reactions (Selected) No Known Medication Allergies Physical Examination Vital Signs 06/02/2025 16:18 EDT Heart Rate Monitored 74 bpm SpO2 98 % 06/02/2025 16:16 EDT Respiratory Rate 18 br/min 06/02/2025 16:16 EDT Systolic Blood Pressure 148 mmHg HI Diastolic Blood Pressure 87 mmHg Mean Arterial Pressure, Cuff 108 mmHg 06/02/2025 15:55 EDT SpO2 96 % 06/02/2025 15:55 EDT Heart Rate Monitored 79 bpm 06/02/2025 15:55 EDT Temperature Temporal Artery 36.2 DegC LOW Respiratory Rate 14 br/min Systolic Blood Pressure 122 mmHg Diastolic Blood Pressure 74 mmHg Blood Pressure Location Left arm Mean Arterial Pressure, Cuff 90 mmHg 06/02/2025 15:50 EDT Heart Rate Monitored 72 bpm 06/02/2025 15:50 EDT SpO2 100 % 06/02/2025 15:50 EDT Respiratory Rate 16 br/min Systolic Blood Pressure 132 mmHg Diastolic Blood Pressure 79 mmHg Blood Pressure Location Left arm Mean Arterial Pressure, Cuff 97 mmHg 06/02/2025 15:46 EDT Heart Rate Monitored 67 bpm SpO2 100 % 06/02/2025 15:45 EDT Heart Rate Monitored 66 bpm 06/02/2025 15:45 EDT SpO2 100 % 06/02/2025 15:45 EDT Respiratory Rate 12 br/min LOW Systolic Blood Pressure 130 mmHg Diastolic Blood Pressure 75 mmHg Blood Pressure Location Left arm Mean Arterial Pressure, Cuff 93 mmHg 06/02/2025 15:40 EDT Heart Rate Monitored 71 bpm 06/02/2025 15:40 EDT SpO2 100 % 06/02/2025 15:40 EDT Respiratory Rate 10 br/min LOW Systolic Blood Pressure 130 mmHg Diastolic Blood Pressure 75 mmHg Blood Pressure Location Left arm Mean Arterial Pressure, Cuff 93 mmHg 06/02/2025 15:35 EDT Heart Rate Monitored 72 bpm SpO2 100 % 06/02/2025 15:35 EDT Systolic Blood Pressure 131 mmHg Diastolic Blood Pressure 74 mmHg Blood Pressure Location Left arm Mean Arterial Pressure, Cuff 93 mmHg 06/02/2025 15:30 EDT Heart Rate Monitored 74 bpm 06/02/2025 15:30 EDT SpO2 100 % 06/02/2025 15:30 EDT Systolic Blood Pressure 127 mmHg Diastolic Blood Pressure 77 mmHg Blood Pressure Location Left arm Mean Arterial Pressure, Cuff 94 mmHg 06/02/2025 15:28 EDT SpO2 100 % 06/02/2025 15:28 EDT Systolic Blood Pressure 127 mmHg Diastolic Blood Pressure 77 mmHg 06/02/2025 15:28 EDT Temperature Temporal Artery 36.2 DegC LOW Heart Rate Monitored 77 bpm Blood Pressure Location Left arm Mean Arterial Pressure, Cuff 94 mmHg Pain Assessment: Controlled. General: Awake, Alert, Appropriate. Respiratory: Adequate air exchange. Cardiovascular: Stable, Normal peripheral perfusion. Neurological: Normal sensory function, Normal motor function. Assessment Anesthetic outcome No anesthetic complications noted. Adequate pain relief. able to void without difficulty, able to ambulate with assist, tolerating PO intake, no N/V. Review / Management Condition: Stable. Plan Transfer/Discharge: Transfer/Discharge Discharge when meets criteria ( To home ). [facility] [facility] Comment on above: Result Comment: Elec tronically Signed By: Adrian Jurado DO, Fabián Goldman\.br\Date and Time Signed: 06/04/25 12:13 EDT 06-03-2025 Note Patient Education - Text Nephrology Minimally Invasive Nephrectomy, Care After This sheet gives you information about how to care for yourself after your procedure. Your health care provider may also give you more specific instructions. If you have problems or questions, contact your health care provider. What can I expect after the procedure? After the procedure, it is common to have: ??? Pain. ??? Soreness and numbness in the area around your incisions. Follow these instructions at home: Medicines ??? Take dedd-jmi-vwfwzjn and prescription medicines only as told by your health care provider. ??? Avoid using NSAIDs regularly over a long period of time. These include aspirin and ibuprofen. Doing so may damage your remaining kidney. -Tylenol 650-1000 mg every 6 hours as needed for pain. [place] for severe uncontrolled pain. These have 325 mg of Tylenol. Do not exceed 4000 mg Tylenol (acetaminophen) in 24 hours. ??? Ask your health care provider if the medicine prescribed to you: ? Requires you to avoid driving or using machinery. ? Can cause constipation. You may need to take these actions to prevent or treat constipation: ? Drink enough fluid to keep your urine pale yellow. ? Take fqsz-lij-etdxayy or prescription medicines - Colace/Senna to prevent constipation while on narcotics and post operatively ? Eat foods that are high in fiber, such as beans, whole grains, and fresh fruits and vegetables. ? Limit foods that are high in fat and processed sugars, such as fried or sweet foods. Incision care and drain care ??? Follow instructions from your health care provider about how to take care of your incisions. Make sure you: ? Wash your hands with soap and water for at least 20 seconds before and after you change your bandage (dressing). If soap and water are not available, use hand lump maker. ? Change your dressing as told by your health care provider- daily and as needed to keep dry, and until incision is closed. ? Leave stitches (sutures), skin glue, or adhesive strips in place. These skin closures may need to be in place for 2 weeks or longer. If adhesive strip edges start to loosen and curl up, you may trim the loose edges. Do not remove adhesive strips completely unless your health care provider tells you to do that. -OK to shower. Let warm soapy water run over incisions and pat dry. No scrubbing or soaking in tubs/pools. -Change drain dressing site daily to keep dry and as needed until closed. ??? Check your incision area every day for signs of infection. Check for: ? Redness, swelling, or more pain. ? Fluid or blood. ? Warmth. ? Pus or a bad smell. ??? If you have a drain in place, follow your health care provider's instructions for drain care. This may include emptying the drain and keeping track of the amount of drainage. Activity ??? Rest as told by your health care provider. ??? Avoid sitting for a long time without moving. Get up to take short walks every 1???2 hours. This is important to improve blood flow and breathing. Ask for help if you feel weak or unsteady. ??? Do not lift anything that is heavier than 10 lb (4.5 kg), or the limit that you are told, until your health care provider says that it is safe (6-8 weeks) ??? Do not play contact sports. Doing so may damage your remaining kidney. ??? Return to your normal activities as told by your health care provider. Ask your health care provider what activities are safe for you. Catheter care If you have a urinary catheter, care for it as told by your health care provider. You may be told to: ??? Wash your hands with soap and water for at least 20 seconds before and after touching the catheter, tubing, or drainage bag. If soap and water are not available, use hand lump maker. ??? Empty the drainage bag every 2???4 hours, or more often if needed. Do not let the bag get completely full. ??? Monitor the amount and color of your urine as told by your health care provider. ??? Keep the area around the catheter clean and dry. ??? Make sure to keep the catheter secured to avoid pulling and accidental removal. ??? Always keep the urine collection bag below the level of your bladder. ??? Check the catheter tubing regularly to make sure there are no kinks or blockages. ??? Make sure that the catheter is not placed under water. General instructions ??? Do not take baths, swim, or use a hot tub until your health care provider approves. Ask your health care provider if you may take showers. You may only be allowed to take sponge baths. ??? Do deep breathing exercises as told by your health care provider. These help to prevent lung infection (pneumonia). ??? Wear compression stockings as told by your health care provider. These stockings help to prevent blood clots and reduce swelling in your legs. ??? Keep all follow-up visits. This is important. (more content not included)... [facility] 06-03-2025 Note Discharge Summary Patient: JENNIFER ZAMORA Age: 54 years Sex: Female : 1970 Associated Diagnoses: None Author: Rosmery Bronson MD Results Review General results Today's results 06/03/2025 6:03 EDT WBC 9.1 E9/L RBC 4.1 E12/L LOW HGB 13.0 gm/dL Hct 37.2 % MCV 90.8 fL MCH 31.8 pg MCHC 35.0 gm/dL RDW 12.9 % Platelet 347.0 E9/L MPV 7.8 fL Neutro Auto 81.2 % HI Lymph Auto 11.8 % LOW [place] Auto 6.9 % Eos Auto 0.0 % Basophil Auto 0.1 % Neutro Absolute 7.4 E9/L Lymph Absolute 1.1 E9/L [place] Absolute 0.6 E9/L Eos Absolute 0.0 E9/L Basophil Absolute 0.0 E9/L Glucose Lvl 100 mg/dL BUN 18 mg/dL Creatinine 0.7 mg/dL eGFR 101 mL/min/1.73 m2 BUN/Creat Ratio 26 HI Sodium Lvl 135 mmol/L Potassium Lvl 4.2 mmol/L Chloride 103 mmol/L CO2 27 mmol/L AGAP 9 mEq/L Calcium Lvl 8.6 mg/dL LOW Physical Examination Vital Signs (last 24 hrs) Last Charted Temp Oral 36.6 DegC (JUN 03:) Heart Rate Monitored 76 bpm (JUN 03:) SBP 107 mmHg (JUN 03:) DBP 65 mmHg (JUN 03) Intake and Output Fluid Balance Primitives 06/03/2025 9:00 EDT Other: FAUSTO drain Abdomen Right Surgical Drain, Tube Output: 15 mL 06/03/2025 5:00 EDT Other: FAUSTO drain Abdomen Right Surgical Drain, Tube Output: 10 mL 06/03/2025 0:02 EDT Other: FAUSTO drain Abdomen Right Surgical Drain, Tube Output: 20 mL General: Alert and oriented, No acute distress. Eye: Extraocular movements are intact, Normal conjunctiva. HENT: Normocephalic, Normal hearing. Respiratory: Respirations are non-labored, Symmetrical chest wall expansion, No crepitus. Cardiovascular: Normal rate, Regular rhythm, No edema. Gastrointestinal: Soft, Non-distended, Appropriately tender. Robotic incisions c/d/i with skin glue. RLQ drain with scant SS output. Genitourinary: No costovertebral angle tenderness, Maldonado with clear yellow urine prior to removal. Musculoskeletal Normal range of motion. Normal strength. Integumentary: Warm, Dry, Intact. Neurologic: Alert, Oriented, No focal deficits. Psychiatric: Cooperative, Appropriate mood & affect, Normal judgment. Hospital Course 54 year old female with incidental finding of small right upper pole renal mass concerning for malignancy during workup for cholecystitis. After discussion of risks/benefits, she elected to proceed with robotic right partial nephrectomy on the day of admission. Case was uneventful. She recovered well on the floor. Labs were stable and wnl postop. Her vitals and blood pressure remained stable and well controlled. Her pain was controlled on PO pain meds, she was tolerating PO intake, ambulating safely and voided after maldonado removal. Her FAUSTO drain output was minimal and removed prior to discharge home. She will follow up in 2 weeks for post op check and pathology review. Discharge Plan Discharge Summary Plan Discharge Status: stable. Discharge instructions given: to patient, to caregiver. Discharge disposition: discharge to home into the care of family member. Prescriptions: called to pharmacy. [facility] Comment on above: Result Comment: Elec tronically Signed By: Audie MADERA, Rosemry Shea.br\Date and Time Signed: 06/03/25 12:23 EDT 06-02-2025 Note Patient Education - Text Nephrology Minimally Invasive Nephrectomy, Care After This sheet gives you information about how to care for yourself after your procedure. Your health care provider may also give you more specific instructions. If you have problems or questions, contact your health care provider. What can I expect after the procedure? After the procedure, it is common to have: ??? Pain. ??? Soreness and numbness in the area around your incisions. Follow these instructions at home: Medicines ??? Take gwyq-hiq-cmoduvh and prescription medicines only as told by your health care provider. ??? Avoid using NSAIDs regularly over a long period of time. These include aspirin and ibuprofen. Doing so may damage your remaining kidney. -Tylenol 650-1000 mg every 6 hours as needed for pain. [place] for severe uncontrolled pain. These have 325 mg of Tylenol. Do not exceed 4000 mg Tylenol (acetaminophen) in 24 hours. ??? Ask your health care provider if the medicine prescribed to you: ? Requires you to avoid driving or using machinery. ? Can cause constipation. You may need to take these actions to prevent or treat constipation: ? Drink enough fluid to keep your urine pale yellow. ? Take ljlw-tba-zfaljnb or prescription medicines - Colace/Senna ? Eat foods that are high in fiber, such as beans, whole grains, and fresh fruits and vegetables. ? Limit foods that are high in fat and processed sugars, such as fried or sweet foods. Incision care and drain care ??? Follow instructions from your health care provider about how to take care of your incisions. Make sure you: ? Wash your hands with soap and water for at least 20 seconds before and after you change your bandage (dressing). If soap and water are not available, use hand lump maker. ? Change your dressing as told by your health care provider- daily and as needed to keep dry, and until incision is closed. ? Leave stitches (sutures), skin glue, or adhesive strips in place. These skin closures may need to be in place for 2 weeks or longer. If adhesive strip edges start to loosen and curl up, you may trim the loose edges. Do not remove adhesive strips completely unless your health care provider tells you to do that. -OK to shower. Let warm soapy water run over incisions and pat dry. No scrubbing or soaking in tubs/pools. ??? Check your incision area every day for signs of infection. Check for: ? Redness, swelling, or more pain. ? Fluid or blood. ? Warmth. ? Pus or a bad smell. ??? If you have a drain in place, follow your health care provider's instructions for drain care. This may include emptying the drain and keeping track of the amount of drainage. Activity ??? Rest as told by your health care provider. ??? Avoid sitting for a long time without moving. Get up to take short walks every 1???2 hours. This is important to improve blood flow and breathing. Ask for help if you feel weak or unsteady. ??? Do not lift anything that is heavier than 10 lb (4.5 kg), or the limit that you are told, until your health care provider says that it is safe (6-8 weeks) ??? Do not play contact sports. Doing so may damage your remaining kidney. ??? Return to your normal activities as told by your health care provider. Ask your health care provider what activities are safe for you. Catheter care If you have a urinary catheter, care for it as told by your health care provider. You may be told to: ??? Wash your hands with soap and water for at least 20 seconds before and after touching the catheter, tubing, or drainage bag. If soap and water are not available, use hand lump maker. ??? Empty the drainage bag every 2???4 hours, or more often if needed. Do not let the bag get completely full. ??? Monitor the amount and color of your urine as told by your health care provider. ??? Keep the area around the catheter clean and dry. ??? Make sure to keep the catheter secured to avoid pulling and accidental removal. ??? Always keep the urine collection bag below the level of your bladder. ??? Check the catheter tubing regularly to make sure there are no kinks or blockages. ??? Make sure that the catheter is not placed under water. General instructions ??? Do not take baths, swim, or use a hot tub until your health care provider approves. Ask your health care provider if you may take showers. You may only be allowed to take sponge baths. ??? Do deep breathing exercises as told by your health care provider. These help to prevent lung infection (pneumonia). ??? Wear compression stockings as told by your health care provider. These stockings help to prevent blood clots and reduce swelling in your legs. ??? Keep all follow-up visits. This is important. Contact a health care provider if: ??? You have a fever or chills. ??? You have pain that is not controlled by your pain medicine. ?? (more content not included)... [facility] 06-02-2025 Note History and Physical Patient: JENNIFER ZAMORA Age: 54 years Sex: Female : 1970 Associated Diagnoses: None Author: Audie MADERA, Rosmery Mckay Preoperative Information Indication for procedure and diagnosis: right upper pole renal mass here for robotic right partial nephrectomy Chief Complaint As above Review of Systems All systems reviewed, negative except as mentioned above Health Status Allergies: Allergic Reactions (Selected) No Known Medication Allergies Current medications: (Selected) Inpatient Medications Ordered Lactated Ringers IV Sonal 1000 mL 1,000 mL: 1,000 mL, IV, 150 mL/hr, Routine, Start date 06/02/25 7:30:00 EDT, 6.7 hour(s), Total volume (mL): 1,000, 72 kg, 1.84, m2 acetaminophen 325 mg Tab: 975 mg = 3 tab(s), Tab, Oral, PREOP, Routine, Start date 06/02/25 7:30:00 EDT, Given with small sip of water 1 hour prior to scheduled robotic cases. cefazolin additive + Sodium Chloride 0.9% intravenous solution 50 mL: 2 gm = 1 EA, Powder-Inj, IV Piggyback, Once, Stop date 06/02/25 8:00:00 EDT, Routine, Start date 06/02/25 8:00:00 EDT, 100 mL/hr, Infuse over 30 minute(s), HOLD if patient has history of anaphylactic allergic reaction to Penicillin. heparin 5000 units/mL Inj: 5,000 unit(s) = 1 mL, Injection, SubCutaneous, PREOP, Routine, Start date 06/02/25 7:30:00 EDT, Give 1 hour prior to scheduled robotic cases. Documented Medications Documented Aspirin Low Dose: 81 mg, Oral, Daily, Refills(s) 0 K2-D3 5000 125 mcg (5000 intl units)-90 mcg oral capsule: cap(s), Oral, Refill(s) 0 [place]-3 Fish Oil 1000 mg oral capsule: mg cap(s), Oral, Refills(s) 0 Super B Complex oral tablet: 1 tab(s), Oral, Daily, 90 tab(s), Refill(s) 0 hydrochlorothiazide-losartan 12.5 mg-50 mg Tab: 1 tab(s), Oral, Daily, Refill(s) 0 metoprolol succinate 25 mg ER Tab: 25 mg = 1 tab(s), Oral, Daily, Refills(s) 0 zolpidem 5 mg Tab: Refills(s) 0 Problem list: All Problems Hypertension / SNOMED CT 8340284458 / Confirmed Recurrent UTI / SNOMED CT 528098989 / Confirmed Renal mass / SNOMED CT 108534232 / Confirmed Unspecified urethral stricture, female / SNOMED CT 048403407 / Confirmed Histories Past Medical History: No active or resolved past medical history items have been selected or recorded. Family History: Hypertension Mother Stroke Mother Diabetes clinic Mother High cholesterol Father Procedure history: Appendectomy (128821013). Hysterectomy (987024388). Tubal ligation (060663602). Cholecystectomy; (54344). Social History Social & Psychosocial Habits Tobacco 04/27/2025 Tobacco Use: Never (less than 100 in l Smokeless tobacco use: Never . Physical Examination Vital Signs (last 24 hrs) Last Charted Temp Oral 36.3 DegC (JUN 02 07:48) Heart Rate Monitored 69 bpm (JUN 02 07:49) SBP 124 mmHg (JUN 02 07:49) DBP 80 mmHg (JUN 02 07:49) General Appearance: alert , no acute distress, well nourished Head: normocephalic . Eyes: normal orbit and globe. ENMT: normal examination of external ears. Chest: symmetric chest rise, respirations non labored . Cardiovascular: regular rate and rhythm. Abdomen: soft , non distended, no tenderness Genitourinary: bladder nonpalpable, no flank tenderness. Skin: warm, dry Psychiatric: cooperative, affect appropriate for age, normal judgement, euthymic mood. Impression and Plan Impression: right upper pole renal mass here for robotic right partial nephrectomy Plan: Proceed with planned surgery per clinic note, risks/benefits previously discussed and documented [facility] Comment on above: Result Comment: Elec tronically Signed By: Audie MADERA, Rosmery Shea.br\Date and Time Signed: 06/02/25 08:05 EDT 05-05-2025 Evaluation note Diagnosis Onset Date Resolution Urinary frequency noneactive May 052024 2:40pm Acute non-recurrent maxillary sinusitis noneactive May 05, 025 2:40pm H/O partial nephrectomy 2024 acute A ugust 2024 8:28am Hypertension acute June 08, 2025 8:28am Renal mass, right acute June 08, 2025 8:28am S/P cholecystectomy noneactive 2024 8:28am [facility] Work Phone: [phone]) 525-449207-14-2025 Hospital Discharge instructions Patient Education 04/27/2025 13:29:04 Renal Mass Renal Mass A renal mass is an abnormal growth in the kidney. It may be found while performing an MRI, CT scan,or ultrasound to evaluate other problems of the abdomen. A renal mass that is cancerous (malignant)may grow or spread quickly. Others are not cancerous (benign). Renal masses include: Tumors. These may be malignant or benign. ?The most common type of kidney cancer in adults is renal cell carcinoma. In children, the most common type of kidney cancer is Wilms tumor. ?The most common benign tumors of the kidney include renal adenomas, oncocytomas, and angiomyolipoma (AML). Cysts. These are fluid-filled sacs that form on or in the kidney. What are the causes? Certain types of cancers, infections, or injuries can cause a renal mass. It is not always known what causes a cyst to develop in or on the kidney. What are the signs or symptoms? Often, a renal mass does not cause any signs or symptoms; most kidney cysts do not cause symptoms. How is this diagnosed? Your health care provider may recommend tests to diagnose the cause of your renal mass. These testsmay be done if a renal mass is found: Physical exam. Blood tests. Urine tests. Imaging tests, such as ultrasound, CT scan, or MRI. Biopsy. This is a small sample that is removed from the renal mass and tested in a lab. The exact tests and how often they are done will depend on: The size and appearance of the renal mass. Risk factors or medical conditions that increase your risk for problems. Any symptoms associated with the renal mass, or concerns that you have about it. Tests and physical exams may be done once, or they may be done regularly for a period of time. Tests and exams that are done regularly will help monitor whether the mass is growing and beginning to cause problems. How is this treated? Treatment is not always needed for this condition. Your health care provider may recommend careful monitoring and regular tests and exams. Treatment will depend on the cause of the mass. Treatment for a cancerous renal mass may include surgical removal, chemotherapy, radiation, or immunotherapy. Most kidney cysts do not need to be treated. Follow these instructions at home: What you need to do at home will depend on the cause of the mass. Follow the instructions that yourhealth care provider gives to you. In general: Take wwvu-gkp-xtyydnk and prescription medicines only as told by your health care provider. If you were prescribed an antibiotic medicine, take it as told by your health care provider. Do notstop taking the antibiotic even if you start to feel better. Follow any restrictions that are given to you by your health care provider. Keep all follow-up visits. This is important. ?You may need to see your health care provider once or twice a year to have CT scans and ultrasounds. These tests will show if your renal mass has changed or grown. Contact a health care provider if you: Have pain in your side or back (flank pain). Have a fever. Feel full soon after eating. Have pain or swelling in the abdomen. Lose weight. Get help right away if: Your pain gets worse. There is blood in your urine. You cannot urinate. You have chest pain. You have trouble breathing. These symptoms may represent a serious problem that is an emergency. Do not wait to see if the symptoms will go away. Get medical help right away. Call your local emergency services (911 in the [place] Summary A renal mass is an abnormal growth in the kidney. It may be cancerous (malignant) and grow or spread quickly, or it may not be cancerous (benign). Renal masses often do not have any signs or symptoms. Renal masses may be found while performing an MRI, CT scan, or ultrasound for other problems of theabdomen. Your health care provider may recommend that you have tests to diagnose the cause of your renal mass. These may include a physical exam, blood tests, urine tests, imaging, or a biopsy. Treatment is not always needed for this condition. Careful monitoring may be recommended. This information is not intended to replace advice given to you by your health care provider. Make sure you discuss any questions you have with your health care provider. Document Revised: 03/28/2021 Document Reviewed: 03/28/2021 [employer] Patient Education 2023 [employer]. 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 I have reviewed the previous health record information and history for this patient from Mable Hazel PA-C and external provider. I have reviewed and verified the staff HPI to be accurate for this encounter. Review of Systems PHQ Score Initial Depression Screen Score: 0 SCORE ROS - Provider Constitutional: denies weight loss, denies hot flashes. Eyes: denies eye problems. Gastrointestinal: denies nausea, denies vomiting. Cardiovascular: denies chest pain or angina. Integumentary: no dryness Musculoskeletal: denies musculoskeletal symptoms. ENMT: denies otolaryngeal symptoms. Respiratory: no shortness of breath. Heme/Lymph: denies easy bleeding tendency, denies easy bruising tendency. Psychiatric: no confusion, no anxiety. Genitourinary: See HPI. Physical Exam Vitals & Measurements T: 37 ???C(Oral) HR: 80(Peripheral) RR: 16 BP: 130/74 HT: 67 in HT: 169 cm WT: 73.3 kg WT: 161.599 lb BMI: 25.66 General Appearance: alert , no acute distress, well nourished, well developed female. Assessment/Plan 54 yo F re-referred by Dr. Grady Das for right renal mass. Last seen by FAUSTO 06/07/22. PSH ~lap cholecystectomy (11/2024), hysterectomy and appendectomy, tummy tuck Baby Aspirin. Not on GLP-1. BBSQ 8 1. Renal mass (N28.89: Other specified disorders of kidney and ureter) CT AP w con 11/30/24 [facility] - partially exophytic enhancing heterogenous mass in the RUP measuring 1.5x 1.4 x 1.5 cm. MRI abdomen 04/14/25 [facility] - findings concerning for right renal cell carcinoma, 1.7 x 1.6 x 1.6 cm. No invasion of the renal collecting system or major renal vasculature. -Right upper pole partially exopytic renal mass, 1 artery, 2 veins (2nd smaller vein posterior slightly inferior) Renal function 11/30/24 - Cr 0.98, eGFR 59 UA today shows trace leuks. Denies family history of kidney cancer. Mother was adopted so limited family history. No smoking history. Today we had a lengthy discussion regarding the renal mass. The discussion was regarding the natureof the mass, management options, and the related advantages and disadvantages of each treatment strategy. We reviewed, in great detail, all the risks associated with each treatment strategy. We discussed that the majority of the lesions are malignant (typically renal cell carcinoma), but there is alow probability that the mass is benign. We discussed the differential diagnosis of renal cortical neoplasms including benign tumors such as oncocytoma, AML, and cystic lesions. We also discussed thedifferent forms of malignant kidney cancers such as clear cell carcinoma, papillary renal cancer, and chromophobe renal cancer. We discussed that biopsy is a potential option. We discussed biopsy risks including bleeding, non diagnostic rate, and possible anecdotal risk of tumor seeding. Sensitivity and specificity of diagnostic core biopsies for the diagnosis of malignancy are 99.1% and 99.7%, but 0-22.6% of core biopsies are non-diagnostic. Overall accuracy for nuclear grading is poor (62.5%). Regarding treatments, we reviewed all treatment options including observation (watchful waiting), ablation with radiofrequency ablation or cryoablation, as well as open/robotic radical and partial nephrectomy. We discussed the open and laparoscopic approaches to be extirpative approaches. We discussed that the advantages of watchful waiting include no procedure or anesthesia of any type at the present time. We also discussed that there is always the risk of tumor growth and even metastasis withobservation. The patient is aware that renal cell carcinoma variants are quite lethal as there is no truly effective adjunctive therapy for metastatic renal cell carcinomas. We discussed the risks associated with all the other potential procedures. The patient is aware that there is a risk of from the anesthesia or the procedures themselves. We reviewed the potential for systemic events such as OH, PE, and gas embolism which can all be life-threatening. Pt states she would feel more comfortable with partial nephrectomy but will further discuss with her prior to making a decision. Risks of nephrectomy discussed. She understands she would require a referral to a tertiary care center for cryoablation due to lack of IR here locally. She was advised to call our office once she consults further with her spouse. -Pt to call with decision, leaning towards robotic right partial nephrectomy 2. Unspecified urethral stricture, female (N35.92: Unspecified urethral stricture, female) S/p cysto/UD 03/02/[address] Penn. Denies issues since Follow-up With When Contact [employer] (more content not included)...[facility] HospitalComment on above:Result Comment: Electronically Signed By: Audie MADERA, Rosmery M.\.br\Date and Time Signed: 04/27/25 14:16EDT\.br\Electronically Co-Signed By: Erika Flores\.br\Date and Time Co-Signed: 04/27/25 13:51 EDT\.br\Electronically Co-Signed By: Erika Flores\.br\Date and Time Co- Signed: 04/27/25 13:52 [id number] NotePatient Education Urology Renal Mass A renal mass is an abnormal growth in the kidney. It may be found while performing an MRI, CT scan,or ultrasound to evaluate other problems of the abdomen. A renal mass that is cancerous (malignant)may grow or spread quickly. Others are not cancerous (benign). Renal masses include: ??? Tumors. These may be malignant or benign. ? The most common type of kidney cancer in adults is renal cell carcinoma. In children, the most common type of kidney cancer is Wilms tumor. ? The most common benign tumors of the kidney include renal adenomas, oncocytomas, and angiomyolipoma (AML). ??? Cysts. These are fluid-filled sacs that form on or in the kidney. What are the causes? Certain types of cancers, infections, or injuries can cause a renal mass. It is not always known what causes a cyst to develop in or on the kidney. What are the signs or symptoms? Often, a renal mass does not cause any signs or symptoms; most kidney cysts do not cause symptoms. How is this diagnosed? Your health care provider may recommend tests to diagnose the cause of your renal mass. These testsmay be done if a renal mass is found: ??? Physical exam. ??? Blood tests. ??? Urine tests. ??? Imaging tests, such as ultrasound, CT scan, or MRI. ??? Biopsy. This is a small sample that is removed from the renal mass and tested in a lab. The exact tests and how often they are done will depend on: ??? The size and appearance of the renal mass. ??? Risk factors or medical conditions that increase your risk for problems. ??? Any symptoms associated with the renal mass, or concerns that you have about it. Tests and physical exams may be done once, or they may be done regularly for a period of time. Tests and exams that are done regularly will help monitor whether the mass is growing and beginning to cause problems. How is this treated? Treatment is not always needed for this condition. Your health care provider may recommend careful monitoring and regular tests and exams. Treatment will depend on the cause of the mass. Treatment for a cancerous renal mass may include surgical removal, chemotherapy, radiation, or immunotherapy. Most kidney cysts do not need to be treated. Follow these instructions at home: What you need to do at home will depend on the cause of the mass. Follow the instructions that yourhealth care provider gives to you. In general: ??? Take [id number] and prescription medicines only as told by your health care provider. ??? If you were prescribed an antibiotic medicine, take it as told by your health care provider. Donot stop taking the antibiotic even if you start to feel better. ??? Follow any restrictions that are given to you by your health care provider. ??? Keep all follow-up visits. This is important. ? You may need to see your health care provider once or twice a year to have CT scans and ultrasounds. These tests will show if your renal mass has changed or grown. Contact a health care provider if you: ??? Have pain in your side or back (flank pain). ??? Have a fever. ??? Feel full soon after eating. ??? Have pain or swelling in the abdomen. ??? Lose weight. Get help right away if: ??? Your pain gets worse. ??? There is blood in your urine. ??? You cannot urinate. ??? You have chest pain. ??? You have trouble breathing. These symptoms may represent a serious problem that is an emergency. Do not wait to see if the symptoms will go away. Get medical help right away. Call your local emergency services (911 in the [place] Summary ??? A renal mass is an abnormal growth in the kidney. It may be cancerous (malignant) and grow or spread quickly, or it may not be cancerous (benign). Renal masses often do not have any signs or symptoms. ??? Renal masses may be found while performing an MRI, CT scan, or ultrasound for other problems ofthe abdomen. ??? Your health care provider may recommend that you have tests to diagnose the cause of your renalmass. These may include a physical exam, blood tests, urine tests, imaging, or a biopsy. ??? Treatment is not always needed for this condition. Careful monitoring may be recommended. This information is not intended to replace advice given to you by your health care provider. Make sure you discuss any questions you have with your health care provider. Document Revised: 03/28/2021 Document Reviewed: 03/28/2021 [employer] Patient Education ? 2023 [employer].[facility] 12-03-2024 History of Present illness Narrative* Aria Miles RN - 12/03/2024 3:05 PM EST This abstract writer went over AVS answered all questions at this time. Patient had script filled meds to bed. Patient verbalized understanding of all follow up appointments and post op care. Patient given extra CHG soap.Patient leaving with all personal belongings via wheelchair to private transportation. Patient stable at time of discharge. * Des Love - 12/03/2024 2:54 PM EST CLINICAL PHARMACY NOTE: MEDS TO BEDS Total # of Prescriptions Filled: 2 The following medications were delivered to the patient: Methylprednisolone 4mg pack Cyclobenzaprine 10mg Additional Documentation: * Luigi Gore APRN - ASH[place] - 12/03/2024 10:08 AM EST Images from the original note were not included. [facility] Office: [phone] Matt Sawyer DO, Jason Riggins DO, Krish Ferreira DO, Holger Argueta DO, Gato Figueredo MD, Alison Garcia MD, Flavia Meza MD, Melissa Perez MD, Jori Cornejo MD, Shea Toro MD, Naseem Washington MD, Edmond Garber DO, Gucci Pope MD, Michael Fernando MD, Destin Sawyer DO, Zehra Oneill MD, Elpidio Garsia DO, Jeanette Bloom MD, Malissa Segura MD, Marleny Edmond MD, Joel Bonilla MD, Shekhar Ruiz MD, Tania Cuevas MD, Tamia Tam MD, Karla Vivas MD, Pratik Spear MD, Claudio Mcnally MD, Luigi Richter DO, Asher Mathis MD, Edmond Almanzar MD, Evan Almnazar MD, Shanae Brady, SENIOR DATA ANALYST, Krissy Batres, SENIOR DATA ANALYST, Luigi Gore, SENIOR DATA ANALYST, Twyla Hardy, [facility], Keturah Del Cid, SENIOR DATA ANALYST, Luciana Rome, SENIOR DATA ANALYST, Christy Slater, SENIOR DATA ANALYST, Jagruti Argueta, SENIOR DATA ANALYST, JAILYN TamezC, Zara Hunter, [facility], Hardeep Manzanares, [facility], Kayla Alvarez, [facility], Magui Toro, [facility], Shasha Watson, [facility],Sanjana Decker, [facility], Chiquita Rebolledo, [facility], Joslyn Tabor, [facility], Kayce Virk, [facility] IN-PATIENT SERVICE [facility] Progress Note 12/03/2024 10:08 AM Name: Jennifer Zamora Acct: [id number] Room: Day: 3 Admit Date: 11/30/2024 9:13 PM PCP: Grady Das DO Code Status: Full Code Subjective: C/C: Abdominal discomfort Interval History Status: improved. Successful cholecystectomy yesterday. Received additional 24 hours of IV antibiotics. Stable for discharge today. Patient continues to endorse sciatic nerve pain. We have discussed the risks and benefits of taking the steroid and I recommended that she wait to initiate the steroid as to avoid healing delay. Also advised patient to follow-up as an outpatient for surveillance of her renal mass. Brief History: 11/30 - Pt is transferred from [facility] for Biliary ductal stone and renal mass found on Imaging. Pt had sudden abdominal pain started today with nausea. Pt denies vomiting, diarrhea, chest pain, sob, fevers, dysuria. Pt is transferred for MRCP and GI services not available at their facility. During my exam patient reports her right sided sciatica hurts the most and she would like that to be evaluated. 12/02 -successful cholecystectomy. Plan for additional 24 hours of IV antibiotics and discharge on 12/03. 12/03 -stable for discharge. Prescription provided for prednisone taper that can be initiated in forsciatic pain if needed. Review of Systems: Review of Systems Constitutional: Negative for activity change, chills, fatigue and fever. HENT: Negative for sinus pressure and sinus pain. Eyes: Negative for photophobia and visual disturbance. Respiratory: Negative for cough, shortness of breath and wheezing. Cardiovascular: Negative. Negative for chest pain, palpitations and leg swelling. Gastrointestinal: Positive for abdominal pain and nausea. Negative for constipation, diarrhea and vomiting. Endocrine: Negative for cold intolerance, heat intolerance and polyuria. Genitourinary: Negative for difficulty urinating and urgency. Musculoskeletal: Negative for arthralgias and myalgias. Skin: Negative. Negative for wound. Neurological: Negative for dizziness, syncope, weakness and light-headedness. Hematological: Negative for adenopathy. Does not bruise/bleed easily. Psychiatric/Behavioral: Negative for agitation and confusion. The patient is not nervous/anxious. Medications: Allergies: No Known Allergies Current Meds: Scheduled Meds: piperacillin-tazobactam 3,375 mg IntraVENous Q8H lidocaine 1 patch TransDERmal Daily sodium chloride flush 5-40 mL IntraVENous 2 times per day [Held by provider] enoxaparin 40 mg SubCUTAneous Daily Continuous Infusions: lactated ringers 150 mL/hr at 12/03/24 0000 sodium chloride PRN Meds: ketorolac, morphine, HYDROcodone 5 mg - acetaminophen, sodium chloride flush, sodium chloride, potassium chloride OR potassium chloride, magnesium sulfate, ondansetron OR ondansetron Data: Past Medical History: has no past medical history on file. Social History: reports that she has never smoked. She has never used smokeless tobacco. She reports that she does not currently use alcohol. She reports that she does not use drugs. Family History: No family history on file. Vitals: BP (!) 147/84 Pulse 82 Temp 98.2 F (36.8 C) (Oral) Resp 18 Ht 1.702 m (5' 7 ) Wt 76.1 kg (167 lb 12.8 oz) SpO2 99% BMI 26.28 kg/m Temp (24hrs), Av.6 F (36.4 C), Min:97.3 F (36.3 C), Max:98.2 F (36.8 C) No results for input(s): POCGLU in the last 72 hours. I/O (24Hr): Intake/Output Summary (Last 24 hours) at 12/03/2024 1008 Last data filed at 12/02/2024 1755 Gross per 24 hour Intake 1577 ml Output 45 ml Net 1532 ml Labs: Hematology: Recent Labs 12/01/24 1038 WBC 4.5 RBC 4.40 HGB 13.9 HCT 40.5 MCV 92.0 MCH 31.6 MCHC 34.3 RDW 11.6* PLT 267 MPV 8.9 Chemistry: Recent Labs 12/01/24 0539 12/01/24 1038 NA 138 140 K 3.7 4.1 CL 104 106 CO2 27 26 GLUCOSE 95 85 BUN 11 9 CREATININE 0.7 0.7 ANIONGAP 8* 8* LABGLOM >90 >90 CALCIUM 8.9 9.2 Recent Labs 12/01/24 0539 12/01/24 1038 AST -- 57* ALT -- 81* ALKPHOS -- 150* BILITOT -- 0.6 BILIDIR -- 0.2 TRIG 124 -- ABG:No results found for: POCPH , PHART , PH , POCPCO2 , ENW9DUT , PCO2 , POCPO2 , PO2ART , PO2 , POCHCO3 , PDN2LCX , HCO3 , NBEA , PBEA , BEART , BE , THGBART , THB , NSL1AQV , YTFA0PLZ , A5KRXERJ , O2SAT , FIO2 No results found for: SPECIAL No results found for: CULTURE Radiology: No results found. Physical Examination: Physical Exam Constitutional: General: She is not in acute distress. Appearance: Normal appearance. She is normal weight. She is not toxic-appearing. HENT: Head: Normocephalic and atraumatic. Mouth/Throat: Mouth: Mucous membranes are moist. Eyes: Extraocular Movements: Extraocular movements intact. Pupils: Pupils are equal, round, and reactive to light. Cardiovascular: Rate and Rhythm: Normal rate and regular rhythm. Pulses: Normal pulses. Heart sounds: Normal heart sounds. No murmur heard. Pulmonary: Effort: Pulmonary effort is normal. No respiratory distress. Abdominal: General: Abdomen is flat. Bowel sounds are normal. There is no distension. Palpations: Abdomen is soft. Tenderness: There is abdominal tenderness. Musculoskeletal: General: No swelling or tenderness. Normal range of motion. Cervical back: Normal range of motion and neck supple. Skin: General: Skin is warm and dry. Capillary Refill: Capillary refill takes less than 2 seconds. Coloration: Skin is not pale. Neurological: General: No focal deficit present. Mental Status: She is alert and oriented to person, place, and time. Mental status is at baseline. Psychiatric: Mood and Affect: Mood normal. Behavior: Behavior normal. Thought Content: Thought content normal. Judgment: Judgment normal. Assessment: Hospital Problems Last Modified POA * (Principal) Acute biliary pancreatitis without infection or necrosis 11/30/2024 Yes Hypertension 12/01/2024 Yes Renal mass 12/01/2024 Yes Pancreatitis, unspecified pancreatitis type 12/02/2024 Yes Plan: Acute biliary pancreatitis General Surgery on board, successful cholecystectomy on 12/02 Hypertension Home regiment Renal mass of uncertain etiology Outpatient follow-up for repeat imaging and surveillance JARON Zaragoza NP 12/03/2024 10:08 AM * Philip Au, DO - 12/03/2024 5:45 AM EST General Surgery: Daily Progress Note PATIENT NAME: Jennifer Zamora TODAY'S DATE: 12/03/2024, 5:45 AM SUBJECTIVE: Pt seen and examined at bedside. POD #1 from robot-assisted laparoscopic cholecystectomy. No acute overnight events. Afebrile, hemodynamically stable. Patient is doing well this morning. Reports somemild bloating and infraumbilical incisional pain. No other complaints this time. Denies nausea, vomiting. Tolerating regular diet. Did not require any pain medication overnight. Patient had questionsregarding steroid for sciatic pain. Recommended holding off on steroid at this time until acute postop period has resolved. OBJECTIVE: VITALS: BP 125/78 Pulse 79 Temp 97.3 F (36.3 C) (Oral) Resp 16 Ht 1.702 m (5' 7 ) Wt 76.1kg (167 lb 12.8 oz) SpO2 98% BMI 26.28 kg/m INTAKE/OUTPUT: Intake/Output Summary (Last 24 hours) at 12/03/2024 0545 Last data filed at 12/02/2024 1755 Gross per 24 hour Intake 1577 ml Output 45 ml Net 1532 ml PHYSICAL EXAM: General Appearance: awake, alert, oriented, in no acute distress HEENT: Normocephalic, atraumatic, mucus membranes moist Heart: Heart regular rate and rhythm Lungs: Normal respiratory effort, no wheezing or stridor. Abdomen:Soft, nondistended, nontender. No rebound tenderness or guarding. Laparoscopic incisions, well-approximated, skin glue in place. Extremities: No cyanosis, pitting edema, rashes noted. Skin: Skin color, texture, turgor normal. No rashes or lesions. Data: CBC with Differential: Lab Results Component Value Date/Time WBC 4.5 12/01/2024 10:38 AM RBC 4.40 12/01/2024 10:38 AM HGB 13.9 12/01/2024 10:38 AM HCT 40.5 12/01/2024 10:38 AM PLT 267 12/01/2024 10:38 AM MCV 92.0 12/01/2024 10:38 AM MCH 31.6 12/01/2024 10:38 AM MCHC 34.3 12/01/2024 10:38 AM RDW 11.6 12/01/2024 10:38 AM LYMPHOPCT 25 12/01/2024 10:38 AM MONOPCT 6 12/01/2024 10:38 AM EOSPCT 1 12/01/2024 10:38 AM BASOPCT 1 12/01/2024 10:38 AM MONOSABS 0.27 12/01/2024 10:38 AM LYMPHSABS 1.11 12/01/2024 10:38 AM EOSABS 0.05 12/01/2024 10:38 AM BASOSABS 0.03 12/01/2024 10:38 AM BMP: Lab Results Component Value Date/Time NA 140 12/01/2024 10:38 AM K 4.1 12/01/2024 10:38 AM CL 106 12/01/2024 10:38 AM CO2 26 12/01/2024 10:38 AM BUN 9 12/01/2024 10:38 AM CREATININE 0.7 12/01/2024 10:38 AM CALCIUM 9.2 12/01/2024 10:38 AM LABGLOM >90 12/01/2024 10:38 AM GLUCOSE 85 12/01/2024 10:38 AM Radiology Review: MRI ABDOMEN W WO CONTRAST MRCP Result Date: 12/02/2024 1. Cholelithiasis with no evidence of acute cholecystitis. 2. Mild biliary dilatation with no evidence of choledocholithiasis. 3. Normal MRI appearance of the pancreas. ASSESSMENT: Active Hospital Problems Diagnosis Date Noted Pancreatitis, unspecified pancreatitis type [K85.90] 12/02/2024 Renal mass [N28.89] 12/01/2024 Acute biliary pancreatitis without infection or necrosis [K85.10] 11/30/2024 Hypertension [I10] 06/18/2023 54 y.o. female with possible choledocholithiasis. Concern for gallstone pancreatitis. -MRCP demonstrating cholelithiasis, no evidence of choledocholithiasis or acute cholecystitis. -S/p robot-assisted laparoscopic cholecystectomy (12/02/2024) Plan: -Patient seen and evaluated. History, physical exam, laboratory, and radiographic findings reviewedand discussed with attending. -No further surgical intervention indicated at this time. -24 hours of antibiotics to finish today. -Pain and nausea control as needed -Monitor vitals per unit standard -Encourage I-S, deep breathing, and cough -Diet: regular -Patient to questions regarding steroid treatment for sciatic pain. Discussed with patient. Recommend avoiding steroids in the acute postoperative period. -Stable for discharge from general surgery standpoint. Patient will follow-up with Dr. Arreola outpatient. Associated attestation - lGen Arreola MD - 12/03/2024 8:00 AM EST Attending Physician Statement I have discussed the case, including pertinent history and exam findings with the resident. I agreewith the assessment, plan and orders as documented by the resident. Surgically stable for discharge. Intra-op findings discussed * Lisa Yepez [facility] - 12/02/2024 6:39 PM EST Images from the original note were not included. Pharmacy Note - Extended Infusion Beta-Lactam Adjustment Piperacillin/Tazobactam 3375mg Q8h for treatment of Intra-abdominal Infection. Per [facility] Extended Infusion Beta-Lactam Policy, piperacillin/tazobactam will be changed to 4500mg loading dose followed by 3375mg Q8h extended infusion Estimated Creatinine Clearance: Estimated Creatinine Clearance: 97 mL/min (based on SCr of 0.7 mg/dL). BMI: Body mass index is 26.28 kg/m . Please call with any questions. Thank you, Lisa Yepez, PharmD 12/02/2024 6:39 PM * Aria Miles RN - 12/02/2024 6:22 PM EST Patient returned from PACU at this time. Patient resting in bed, at bedside. Orders released and reviewed. * Aria Miles RN - 12/02/2024 1:48 PM EST Patient to OR at this time. * Luigi Gore APRN - NP - 12/02/2024 10:56 AM EST Images from the original note were not included. [facility] Office: [phone] Matt Sawyer DO, Jason Riggins DO, Krish Ferreira DO, Holger Argueta DO, Gato Figueredo MD, Alison Garcia MD, Flavia Meza MD, Melissa Perez MD, Jori Cornejo MD, Shea Toro MD, Naseem Washington MD, Edmond Garber DO, Gucci Pope MD, Michael Fernando MD, Destin Sawyer DO, Zehra Oneill MD, Elpidio Garsia DO, Jeanette Bloom MD, Malissa Segura MD, Marleny Edmond MD, Joel Bonilla MD, Shekhar Ruiz MD, Tania Cuevas MD, Tamia Tam MD, Karla Vivas MD, Pratik Spear MD, Claudio Mcnally MD, Luigi Richtre DO, Asher Mathis MD, Edmond Almanzar MD, Evan Almanzar MD, Shanae Brady, SENIOR DATA ANALYST, Krissy Batres, SENIOR DATA ANALYST, Luigi Gore, SENIOR DATA ANALYST, Twyla Hardy, [facility], Keturah Del Cid, SENIOR DATA ANALYST, Luciana Rome, SENIOR DATA ANALYST, Christy Slater, SENIOR DATA ANALYST, Jagruti Argueta, SENIOR DATA ANALYST, Cindy Kapadia, PA-C, Zara Hunter, SENIOR DATA ANALYST, Hardeep Manzanares, SENIOR DATA ANALYST, Kayla Alvarez, [facility], Magui Toro, [facility], Shasha Watson, [facility],Sanjana Decker, [facility], Chiquita Rebolledo, [facility], Joslyn Tabor, SENIOR DATA ANALYST, Kayce Virk, SENIOR DATA ANALYST [facility] IN-PATIENT SERVICE [facility] Progress Note 12/02/2024 10:57 AM Name: Jennifer Zamora Acct: [id number] Room: [address] [place] [address] Day: 2 Admit Date: 11/30/2024 9:13 PM PCP: Grady Das DO Code Status: Full Code Subjective: C/C: Abdominal discomfort Interval History Status: improved. Pain is better controlled. GI on board and plan for MRCP. General surgery on board and tentatively plan for OR tomorrow. Will need outpatient follow-up for surveillance of renal mass. Brief History: 11/30 - Pt is transferred from [facility] for Biliary ductal stone and renal mass found on Imaging. Pt had sudden abdominal pain started today with nausea. Pt denies vomiting, diarrhea, chest pain, sob, fevers, dysuria. Pt is transferred for MRCP and GI services not available at their facility. During my exam patient reports her right sided sciatica hurts the most and she would like that to be evaluated. 12/02 -plan 4 OR today for cholecystectomy Review of Systems: Review of Systems Constitutional: Negative for activity change, chills, fatigue and fever. HENT: Negative for sinus pressure and sinus pain. Eyes: Negative for photophobia and visual disturbance. Respiratory: Negative for cough, shortness of breath and wheezing. Cardiovascular: Negative. Negative for chest pain, palpitations and leg swelling. Gastrointestinal: Positive for abdominal pain and nausea. Negative for constipation, diarrhea and vomiting. Endocrine: Negative for cold intolerance, heat intolerance and polyuria. Genitourinary: Negative for difficulty urinating and urgency. Musculoskeletal: Negative for arthralgias and myalgias. Skin: Negative. Negative for wound. Neurological: Negative for dizziness, syncope, weakness and light-headedness. Hematological: Negative for adenopathy. Does not bruise/bleed easily. Psychiatric/Behavioral: Negative for agitation and confusion. The patient is not nervous/anxious. Medications: Allergies: No Known Allergies Current Meds: Scheduled Meds: lidocaine 1 patch TransDERmal Daily sodium chloride flush 5-40 mL IntraVENous 2 times per day [Held by provider] enoxaparin 40 mg SubCUTAneous Daily Continuous Infusions: lactated ringers 150 mL/hr at 12/02/24 0610 sodium chloride PRN Meds: ketorolac, morphine, HYDROcodone 5 mg - acetaminophen, sodium chloride flush, sodium chloride, potassium chloride OR potassium chloride, magnesium sulfate, ondansetron OR ondansetron Data: Past Medical History: has no past medical history on file. Social History: Family History: No family history on file. Vitals: BP (!) 144/85 Pulse 76 Temp 97.9 F (36.6 C) (Oral) Resp 16 Ht 1.702 m (5' 7 ) Wt 76.1 kg (167 lb 12.8 oz) SpO2 100% BMI 26.28 kg/m Temp (24hrs), Av.7 F (36.5 C), Min:97.5 F (36.4 C), Max:97.9 F (36.6 C) No results for input(s): POCGLU in the last 72 hours. I/O (24Hr): Intake/Output Summary (Last 24 hours) at 12/02/2024 1057 Last data filed at 12/01/2024 1626 Gross per 24 hour Intake 867.95 ml Output -- Net 867.95 ml Labs: Hematology: Recent Labs 12/01/24 1038 WBC 4.5 RBC 4.40 HGB 13.9 HCT 40.5 MCV 92.0 MCH 31.6 MCHC 34.3 RDW 11.6* PLT 267 MPV 8.9 Chemistry: Recent Labs 12/01/24 0539 12/01/24 1038 NA 138 140 K 3.7 4.1 CL 104 106 CO2 27 26 GLUCOSE 95 85 BUN 11 9 CREATININE 0.7 0.7 ANIONGAP 8* 8* LABGLOM >90 >90 CALCIUM 8.9 9.2 Recent Labs 12/01/24 0539 12/01/24 1038 AST -- 57* ALT -- 81* ALKPHOS -- 150* BILITOT -- 0.6 BILIDIR -- 0.2 TRIG 124 -- ABG:No results found for: POCPH , PHART , PH , POCPCO2 , [id number] , PCO2 , POCPO2 , PO2ART , PO2 , POCHCO3 , ISC0NWX , HCO3 , NBEA , PBEA , BEART , BE , THGBART , THB , KYJ1HRT , BEYQ3HHK , S5IMAFQM , O2SAT , FIO2 No results found for: SPECIAL No results found for: CULTURE Radiology: No results found. Physical Examination: Physical Exam Constitutional: General: She is not in acute distress. Appearance: Normal appearance. She is normal weight. She is not toxic-appearing. HENT: Head: Normocephalic and atraumatic. Mouth/Throat: Mouth: Mucous membranes are moist. Eyes: Extraocular Movements: Extraocular movements intact. Pupils: Pupils are equal, round, and reactive to light. Cardiovascular: Rate and Rhythm: Normal rate and regular rhythm. Pulses: Normal pulses. Heart sounds: Normal heart sounds. No murmur heard. Pulmonary: Effort: Pulmonary effort is normal. No respiratory distress. Abdominal: General: Abdomen is flat. Bowel sounds are normal. There is no distension. Palpations: Abdomen is soft. Tenderness: There is abdominal tenderness. Musculoskeletal: General: No swelling or tenderness. Normal range of motion. Cervical back: Normal range of motion and neck supple. Skin: General: Skin is warm and dry. Capillary Refill: Capillary refill takes less than 2 seconds. Coloration: Skin is not pale. Neurological: General: No focal deficit present. Mental Status: She is alert and oriented to person, place, and time. Mental status is at baseline. Psychiatric: Mood and Affect: Mood normal. Behavior: Behavior normal. Thought Content: Thought content normal. Judgment: Judgment normal. Assessment: Hospital Problems Last Modified POA * (Principal) Acute biliary pancreatitis without infection or necrosis 11/30/2024 Yes Hypertension 12/01/2024 Yes Renal mass 12/01/2024 Yes Plan: Acute biliary pancreatitis General Surgery on board and plans for cholecystectomy today Hypertension Home regiment Renal mass of uncertain etiology Outpatient follow-up for repeat imaging and surveillance JARON Zaragoza NP 12/02/2024 10:57 AM * Deon Dillard MD - 12/02/2024 10:53 AM EST GASTROENTEROLOGY PROGRESS NOTE Patient: Jennifer Zamora : 1970 Date: 12/02/2024 Public Health Training Assistant: Deon Dillard MD Subjective: Patient sleeping comfortably on the bed. at the bedside. No complaints Current Medications include: Scheduled Meds: lidocaine 1 patch TransDERmal Daily sodium chloride flush 5-40 mL IntraVENous 2 times per day [Held by provider] enoxaparin 40 mg SubCUTAneous Daily Continuous Infusions: lactated ringers 150 mL/hr at 12/02/24 0610 sodium chloride PRN Meds:.ketorolac, morphine, HYDROcodone 5 mg - acetaminophen, sodium chloride flush, sodium chloride, potassium chloride OR potassium chloride, magnesium sulfate, ondansetron OR ondansetron Allergies: No Known Allergies Objective: Vital Signs: Temp (24hrs), Av.7 F (36.5 C), Min:97.5 F (36.4 C), Max:97.9 F (36.6 C) Systolic (24hrs), Av , Min:128 , Max:148 Diastolic (24hrs), Av, Min:84, Max:88 Pulse Av Min: 67 Max: 76 BP (!) 144/85 Pulse 76 Temp 97.9 F (36.6 C) (Oral) Resp 16 Ht 1.702 m (5' 7 ) Wt 76.1 kg (167 lb 12.8 oz) SpO2 100% BMI 26.28 kg/m Physical Exam: General appearance: Not in any acute distress. Heart: S1-S2 audible. Lungs: Good air entry bilaterally. Abdomen: Soft nontender bowel sounds audible. Lab and Imaging Review Recent Labs 12/01/24 0539 12/01/24 1038 WBC -- 4.5 HGB -- 13.9 MCV -- 92.0 PLT -- 267 NA 138 140 K 3.7 4.1 CL 104 106 CO2 27 26 BUN 11 9 CREATININE 0.7 0.7 GLUCOSE 95 85 CALCIUM 8.9 9.2 AST -- 57* ALT -- 81* ALKPHOS -- 150* BILITOT -- 0.6 BILIDIR -- 0.2 Imaging: IMPRESSION: 1. Cholelithiasis with no evidence of acute cholecystitis. 2. Mild biliary dilatation with no evidence of choledocholithiasis. 3. Normal MRI appearance of the pancreas. Assessment: 54 yo female with acute epigastric, ruq pain, labs suggesting biliary pancreatitis at OSH . MRI/MRCP negative for choledocholithiasis. Positive for cholelithiasis. Normal appearance of the pancreas. Plan: Surgery planning to take patient for lap cholecystectomy today No further recommendation from GI standpoint. GI to sign off call with questions or concerns * Aria Miles RN - 12/02/2024 8:41 AM EST Patient returned from MRI at this time. * Aria Miles RN - 12/02/2024 7:38 AM EST Patient to MRI at this time. * Glen Arreola MD - 12/02/2024 5:49 AM EST General Surgery: Daily Progress Note PATIENT NAME: Jennifer Zamora TODAY'S DATE: 12/02/2024, 5:49 AM SUBJECTIVE: Pt seen and examined at bedside. Afebrile, vital signs stable and within normal limits. Patient denies any nausea, vomiting, abdominal pain. Complaining of low back pain related to her sciatica. Unable to tolerate MRCP yesterday due to anxiety. OBJECTIVE: VITALS: BP 128/88 Pulse 67 Temp 97.5 F (36.4 C) Resp 16 Ht 1.702 m (5' 7 ) Wt 76.1 kg (167 lb 12.8 oz) SpO2 97% BMI 26.28 kg/m INTAKE/OUTPUT: Intake/Output Summary (Last 24 hours) at 12/02/2024 0549 Last data filed at 12/01/2024 1626 Gross per 24 hour Intake 3703.49 ml Output 900 ml Net 2803.49 ml PHYSICAL EXAM: General Appearance: awake, alert, oriented, in no acute distress HEENT: Normocephalic, atraumatic, mucus membranes moist Heart: Heart regular rate and rhythm Lungs: Normal respiratory effort, no wheezing or stridor. Abdomen:Soft, nondistended, nontender. No rebound tenderness or guarding. Extremities: No cyanosis, pitting edema, rashes noted. Skin: Skin color, texture, turgor normal. No rashes or lesions. Data: CBC with Differential: Lab Results Component Value Date/Time WBC 4.5 12/01/2024 10:38 AM RBC 4.40 12/01/2024 10:38 AM HGB 13.9 12/01/2024 10:38 AM HCT 40.5 12/01/2024 10:38 AM PLT 267 12/01/2024 10:38 AM MCV 92.0 12/01/2024 10:38 AM MCH 31.6 12/01/2024 10:38 AM MCHC 34.3 12/01/2024 10:38 AM RDW 11.6 12/01/2024 10:38 AM LYMPHOPCT 25 12/01/2024 10:38 AM MONOPCT 6 12/01/2024 10:38 AM EOSPCT 1 12/01/2024 10:38 AM BASOPCT 1 12/01/2024 10:38 AM MONOSABS 0.27 12/01/2024 10:38 AM LYMPHSABS 1.11 12/01/2024 10:38 AM EOSABS 0.05 12/01/2024 10:38 AM BASOSABS 0.03 12/01/2024 10:38 AM BMP: Lab Results Component Value Date/Time NA 140 12/01/2024 10:38 AM K 4.1 12/01/2024 10:38 AM CL 106 12/01/2024 10:38 AM CO2 26 12/01/2024 10:38 AM BUN 9 12/01/2024 10:38 AM CREATININE 0.7 12/01/2024 10:38 AM CALCIUM 9.2 12/01/2024 10:38 AM LABGLOM >90 12/01/2024 10:38 AM GLUCOSE 85 12/01/2024 10:38 AM Radiology Review: No results found. ASSESSMENT: Active Hospital Problems Diagnosis Date Noted Renal mass [N28.89] 12/01/2024 Acute biliary pancreatitis without infection or necrosis [K85.10] 11/30/2024 Hypertension [I10] 06/18/2023 54 y.o. female with possible choledocholithiasis. Concern for gallstone pancreatitis. Plan: -Patient seen and evaluated. History, physical exam, laboratory, and radiographic findings reviewedand discussed with attending. -F/u MRCP results. Use anxiolytics as needed to help patient tolerate exam. -F/u GI recommendations -Will tentatively plan for cholecystectomy this afternoon pending MRCP results. -Pain and nausea control as needed -Monitor vitals per unit standard -Encourage I-S, deep breathing, and cough -Diet: NPO -Remainder of plan and disposition per primary team. Attending Physician Statement I have discussed the case, including pertinent history and exam findings with the resident. I agreewith the assessment, plan and orders as documented by the resident. For MRCP today with cholecystectomy later today Marcella Gabriel RN - 12/01/2024 6:13 PM EST patient just got back to room and was not able to get the MRI/MRCP because she got very anxious once in the machine and demanded to get out. She said this has never happened before. The technical account executive saidshe won't be able to try again tonight and will call tomorrow morning to see if patient is willing.Patient says she's willing tomorrow if she can have something first. Tello Gore notified and Ativan ordered for prior to MRI/MRCP * Luigi Gore, JARON - MANAGER WATER - 12/01/2024 2:05 PM EST Images from the original note were not included. [facility] Office: [phone] Matt Sawyer DO, Jason Riggins DO, Krish Ferreira DO, Holger Argueta DO, Gato Figueredo MD, Alison Garcia MD, Flavia Meza MD, Melissa Perez MD, Jori Cornejo MD, Shea Toro MD, Naseem Washington MD, Edmond Garber DO, Gucci Pope MD, Michael Fernando MD, Destin Sawyer DO, Zehra Oneill MD, Elpidio Garsia DO, Jeanette Bloom MD, Malissa Segura MD, Marleny Edmond MD, Joel Bonilla MD, Shekhar Ruiz MD, Tania Cuevas MD, Tamia Tam MD, Karla Vivas MD, Pratik Spear MD, Claudio Mcnally MD, Luigi Richter DO, Asher Mathis MD, Edmond Almanzar MD, Evan Almanzar MD, Shanae Brady CNP, Krissy Batres CNP, Luigi Gore, JOSEP, Twyla Hardy DNP, Keturah Del Cid CNP, Luciana Rome CNP, Christy Slater CNP, Jagruti Argueta CNP, Cindy Kapadia PA-C, Zara Hunter, SENIOR DATA ANALYST, Hardeep Manzanares, SENIOR DATA ANALYST, Kayla Alvarez, SENIOR DATA ANALYST, Magui Toro, SENIOR DATA ANALYST, Shasha Watson, SENIOR DATA ANALYST,Sanjana Decker, PHARMACIST AIDE, Chiquita Rebolledo, JOSEP, Joslyn Tabor, SENIOR DATA ANALYST, Kayce Virk, SENIOR DATA ANALYST [facility] IN-PATIENT SERVICE [facility] Progress Note 12/01/2024 2:31 PM Name: Jennifer Zamora Acct: [id number] Room: Day: 1 Admit Date: 11/30/2024 9:13 PM PCP: Grady Das, Code Status: Full Code Subjective: C/C: Abdominal discomfort Interval History Status: improved. Pain is better controlled. GI on board and plan for MRCP. General surgery on board and tentatively plan for OR tomorrow. Will need outpatient follow-up for surveillance of renal mass. Brief History: 11/30 - Pt is transferred from [facility] for Biliary ductal stone and renal mass found on Imaging. Pt had sudden abdominal pain started today with nausea. Pt denies vomiting, diarrhea, chest pain, sob, fevers, dysuria. Pt is transferred for MRCP and GI services not available at their facility. During my exam patient reports her right sided sciatica hurts the most and she would like that to be evaluated. Review of Systems: Review of Systems Constitutional: Negative for activity change, chills, fatigue and fever. HENT: Negative for sinus pressure and sinus pain. Eyes: Negative for photophobia and visual disturbance. Respiratory: Negative for cough, shortness of breath and wheezing. Cardiovascular: Negative. Negative for chest pain, palpitations and leg swelling. Gastrointestinal: Positive for abdominal pain and nausea. Negative for constipation, diarrhea and vomiting. Endocrine: Negative for cold intolerance, heat intolerance and polyuria. Genitourinary: Negative for difficulty urinating and urgency. Musculoskeletal: Negative for arthralgias and myalgias. Skin: Negative. Negative for wound. Neurological: Negative for dizziness, syncope, weakness and light-headedness. Hematological: Negative for adenopathy. Does not bruise/bleed easily. Psychiatric/Behavioral: Negative for agitation and confusion. The patient is not nervous/anxious. Medications: Allergies: No Known Allergies Current Meds: Scheduled Meds: lidocaine 1 patch TransDERmal Daily sodium chloride flush 5-40 mL IntraVENous 2 times per day enoxaparin 40 mg SubCUTAneous Daily Continuous Infusions: lactated ringers 150 mL/hr at 12/01/24 1036 sodium chloride PRN Meds: ketorolac, morphine, HYDROcodone 5 mg - acetaminophen, sodium chloride flush, sodium chloride, potassium chloride OR potassium chloride, magnesium sulfate, ondansetron OR ondansetron Data: Past Medical History: has no past medical history on file. Social History: Family History: No family history on file. Vitals: BP (!) 141/82 Pulse 73 Temp 97.5 F (36.4 C) (Oral) Resp 18 Ht 1.702 m (5' 7 ) Wt 76.1 kg (167 lb 12.8 oz) SpO2 100% BMI 26.28 kg/m Temp (24hrs), Av.4 F (36.3 C), Min:97.3 F (36.3 C), Max:97.5 F (36.4 C) No results for input(s): POCGLU in the last 72 hours. I/O (24Hr): Intake/Output Summary (Last 24 hours) at 12/01/2024 1431 Last data filed at 12/01/2024 1017 Gross per 24 hour Intake 2835.54 ml Output 1700 ml Net 1135.54 ml Labs: Hematology: Recent Labs 12/01/24 1038 WBC 4.5 RBC 4.40 HGB 13.9 HCT 40.5 MCV 92.0 MCH 31.6 MCHC 34.3 RDW 11.6* PLT 267 MPV 8.9 Chemistry: Recent Labs 12/01/24 0539 12/01/24 1038 NA 138 140 K 3.7 4.1 CL 104 106 CO2 27 26 GLUCOSE 95 85 BUN 11 9 CREATININE 0.7 0.7 ANIONGAP 8* 8* LABGLOM >90 >90 CALCIUM 8.9 9.2 Recent Labs 12/01/24 0539 12/01/24 1038 AST -- 57* ALT -- 81* ALKPHOS -- 150* BILITOT -- 0.6 BILIDIR -- 0.2 TRIG 124 -- ABG:No results found for: POCPH , PHART , PH , POCPCO2 , VYN4CYK , PCO2 , POCPO2 , PO2ART , PO2 , POCHCO3 , OQV2ZKO , HCO3 , NBEA , PBEA , BEART , BE , THGBART , THB , BIZ5BZK , YIXO1XUT , I6ETHXVQ , O2SAT , FIO2 No results found for: SPECIAL No results found for: CULTURE Radiology: No results found. Physical Examination: Physical Exam Constitutional: General: She is not in acute distress. Appearance: Normal appearance. She is normal weight. She is not toxic-appearing. HENT: Head: Normocephalic and atraumatic. Mouth/Throat: Mouth: Mucous membranes are moist. Eyes: Extraocular Movements: Extraocular movements intact. Pupils: Pupils are equal, round, and reactive to light. Cardiovascular: Rate and Rhythm: Normal rate and regular rhythm. Pulses: Normal pulses. Heart sounds: Normal heart sounds. No murmur heard. Pulmonary: Effort: Pulmonary effort is normal. No respiratory distress. Abdominal: General: Abdomen is flat. Bowel sounds are normal. There is no distension. Palpations: Abdomen is soft. Tenderness: There is abdominal tenderness. Musculoskeletal: General: No swelling or tenderness. Normal range of motion. Cervical back: Normal range of motion and neck supple. Skin: General: Skin is warm and dry. Capillary Refill: Capillary refill takes less than 2 seconds. Coloration: Skin is not pale. Neurological: General: No focal deficit present. Mental Status: She is alert and oriented to person, place, and time. Mental status is at baseline. Psychiatric: Mood and Affect: Mood normal. Behavior: Behavior normal. Thought Content: Thought content normal. Judgment: Judgment normal. Assessment: Hospital Problems Last Modified POA * (Principal) Acute biliary pancreatitis without infection or necrosis 11/30/2024 Yes Hypertension 12/01/2024 Yes Renal mass 12/01/2024 Yes Plan: Acute biliary pancreatitis GI on board, defer additional treatment and testing to their service MRCP today Hypertension Home regiment Renal mass of uncertain etiology Outpatient follow-up for repeat imaging and surveillance JARON Zaragoza NP 12/01/2024 2:31 PM * Glen Arreola MD - 12/01/2024 6:03 AM EST General Surgery: Daily Progress Note PATIENT NAME: Jennifer Zamora TODAY'S DATE: 12/01/2024, 6:04 AM SUBJECTIVE: Pt seen and examined at bedside. Afebrile, vital signs stable and within normal limits. Patient states that her abdominal pain is slightly improved from previous. Denies any nausea, vomiting, fever, chills. MRCP planned for today. OBJECTIVE: VITALS: BP (!) 141/82 Pulse 73 Temp 97.5 F (36.4 C) (Oral) Resp 18 Ht 1.702 m (5' 7 ) Wt 76.1 kg (167 lb 12.8 oz) SpO2 100% BMI 26.28 kg/m INTAKE/OUTPUT: Intake/Output Summary (Last 24 hours) at 12/01/2024 0604 Last data filed at 12/01/2024 0546 Gross per 24 hour Intake -- Output 800 ml Net -800 ml PHYSICAL EXAM: General Appearance: awake, alert, oriented, in no acute distress HEENT: Normocephalic, atraumatic, mucus membranes moist Heart: Heart regular rate and rhythm Lungs: Normal respiratory effort, no wheezing or stridor. Abdomen:Soft, nondistended, nontender. No rebound tenderness or guarding. Extremities: No cyanosis, pitting edema, rashes noted. Skin: Skin color, texture, turgor normal. No rashes or lesions. Data: CBC with Differential: No results found for: WBC , RBC , HGB , HCT , PLT , MCV , MCH , MCHC , RDW , NRBC , BANDSPCT , BLASTSPCT , METASPCT , LYMPHOPCT , PROMYELOPCT , MONOPCT , MYELOPCT , EOSPCT , BASOPCT , MONOSABS , LYMPHSABS , EOSABS , BASOSABS , DIFFTYPE BMP: Lab Results Component Value Date/Time NA 138 12/01/2024 05:39 AM K 3.7 12/01/2024 05:39 AM CL 104 12/01/2024 05:39 AM CO2 27 12/01/2024 05:39 AM BUN 11 12/01/2024 05:39 AM CREATININE 0.7 12/01/2024 05:39 AM CALCIUM 8.9 12/01/2024 05:39 AM LABGLOM >90 12/01/2024 05:39 AM GLUCOSE 95 12/01/2024 05:39 AM Radiology Review: No results found. ASSESSMENT: Active Hospital Problems Diagnosis Date Noted Acute biliary pancreatitis without infection or necrosis [K85.10] 11/30/2024 54 y.o. female with possible choledocholithiasis. Concern for gallstone pancreatitis. Plan: -Patient seen and evaluated. History, physical exam, laboratory, and radiographic findings reviewedand discussed with attending. -F/u MRCP results -F/u GI recommendations -Will tentatively plan for cholecystectomy tomorrow, 12/02. -Pain and nausea control as needed -Monitor vitals per unit standard -Encourage I-S, deep breathing, and cough -Strict I/O's -Diet: NPO -Remainder of plan and disposition per primary team. Attending Physician Statement I have discussed the case, including pertinent history and exam findings with the resident. I agreewith the assessment, plan and orders as documented by the resident. Feeling better Await MRCP and GI input * Arleth Watkins RN - 11/30/2024 9:26 PM EST Pt admitted to room from [facility] Oriented to room and call light/tv controls. Bed in lowest position, wheels locked, 2/4 side rails up Call light in reach, room free of clutter, adequate lighting provided. [x] Medication Reconciliation was completed and the patient's home medication list was verified. The Med List Status has been marked Complete . The following sources were used to assist with Medication Reconciliation: [] Patient had a list of medications which was transcribed into the EHR. [] Patient provided bottles of their medications [x] Home medications reviewed and confirmed with patient [] Contacted patient's pharmacy to confirm home medications [] Contacted patient's physician office to confirm home medications [] Medical Records from another facility and/or Care Everywhere were reviewed [place] [id number] Hospital Discharge instructions* Discharge Instr - ANTONY* Aria Miles RN - 12/03/2024 12:32 PM EST * Attachments The following attachments cannot be sent through Care Everywhere. * Cholecystectomy: General Info ([place]) * Cholecystectomy: Post-op ([place]) * Pancreatitis: Acute: General Info ([place]) * Surgical Site Infections: Prevention: General Info ([place]) * Cyclobenzaprine ([place]) * methylprednisolone (oral) ([place]) documented in this [facility]02-19-2025 Hospital course Narrative* Luigi Gore APRN - NP - 12/03/2024 10:19 AM EST Images from the original note were not included. [facility] Office: [phone] Matt Sawyer DO, Jason Riggins DO, Krish Ferreira DO, Holger Argueta DO, Gato Figueredo MD, Alison Garcia MD, Flavia Meza MD, Melissa Perez MD, Jori Cornejo MD, Shea Toro MD, Naseem Washington MD, Edmond Garber DO, Gucci Pope MD, Michael Fernando MD, Destin Sawyer DO, Zehra Oneill MD, Elpidio Garsia DO, Jeanette Bloom MD, Malissa Segura MD, Marleny Edmond MD, Joel Bonilla MD, Shekhar Ruiz MD, Tania Cuevas MD, Tamia Tam MD, Karla Vivas MD, Pratik Spear MD, Claudio Mcnally MD, Luigi Richter DO, Asher Mathis MD, Edmond Almanzar MD, Evan Almanzar MD, Shanae Brady CNP, Krissy Batres CNP, Luigi Gore CNP, Twyla Hardy DNP, Keturah Del Cid CNP, Luciana Rome CNP, Christy Slater CNP, Jagruti Argueta, SENIOR DATA ANALYST, Cindy Kapadia PA-C, Zara Hunter, SENIOR DATA ANALYST, Hardeep Manzanares, SENIOR DATA ANALYST, Kayla Alvarez, SENIOR DATA ANALYST, Magui Toro, SENIOR DATA ANALYST, Shasha Watson, SENIOR DATA ANALYST,Sanjana Decker, PHARMACIST AIDE, Chiquita Rebolledo, SENIOR DATA ANALYST, Joslyn Tabor, SENIOR DATA ANALYST, Kayce Virk, SENIOR DATA ANALYST [facility] IN-PATIENT SERVICE [facility] Discharge Summary Patient ID: Jennifer Zamora : 1970 ACCOUNT: [id number] Patient's PCP: Grady Das DO Admit Date: 11/30/2024 Discharge Date: 12/03/2024 Length of Stay: 3 Code Status: Full Code Admitting Physician: Flavia Meza MD Discharge Physician: Luigi Gore, FORMING MACHINE UPKEEP MECHANIC - MANAGER WATER Active Discharge Diagnoses: Hospital Problem Lists: Principal Problem: Acute biliary pancreatitis without infection or necrosis Active Problems: Hypertension Renal mass Pancreatitis, unspecified pancreatitis type Resolved Problems: * No resolved hospital problems. * Admission Condition: fair Discharged Condition: stable Hospital Stay: Hospital Course: Jennifer Zamora is a 54 y.o. female who was admitted for the management of Acute biliary pancreatitis without infection or necrosis , presented to ER with No chief complaint on file. 11/30 - Pt is transferred from [facility] for Biliary ductal stone and renal mass found on Imaging. Pt had sudden abdominal pain started today with nausea. Pt denies vomiting, diarrhea, chest pain, sob, fevers, dysuria. Pt is transferred for MRCP and GI services not available at their facility. During my exam patient reports her right sided sciatica hurts the most and she would like that to be evaluated. 12/02 -successful cholecystectomy. Plan for additional 24 hours of IV antibiotics and discharge on 12/03. 12/03 -stable for discharge. Prescription provided for prednisone taper that can be initiated in 1 week in for sciatic pain if needed. Significant therapeutic interventions: As above Significant Diagnostic Studies: Labs / Micro: CBC: Lab Results Component Value Date/Time WBC 4.5 12/01/2024 10:38 AM RBC 4.40 12/01/2024 10:38 AM HGB 13.9 12/01/2024 10:38 AM HCT 40.5 12/01/2024 10:38 AM MCV 92.0 12/01/2024 10:38 AM MCH 31.6 12/01/2024 10:38 AM MCHC 34.3 12/01/2024 10:38 AM RDW 11.6 12/01/2024 10:38 AM PLT 267 12/01/2024 10:38 AM BMP: Lab Results Component Value Date/Time GLUCOSE 85 12/01/2024 10:38 AM NA 140 12/01/2024 10:38 AM K 4.1 12/01/2024 10:38 AM CL 106 12/01/2024 10:38 AM CO2 26 12/01/2024 10:38 AM ANIONGAP 8 12/01/2024 10:38 AM BUN 9 12/01/2024 10:38 AM CREATININE 0.7 12/01/2024 10:38 AM CALCIUM 9.2 12/01/2024 10:38 AM LABGLOM >90 12/01/2024 10:38 AM Radiology: MRI ABDOMEN W WO CONTRAST MRCP Result Date: 12/02/2024 1. Cholelithiasis with no evidence of acute cholecystitis. 2. Mild biliary dilatation with no evidence of choledocholithiasis. 3. Normal MRI appearance of the pancreas. Consultations: Consults: Final Specialist Recommendations/Findings: IP CONSULT TO GI IP CONSULT TO GENERAL SURGERY The patient was seen and examined on day of discharge and this discharge summary is in conjunction with any daily progress note from day of discharge. Discharge plan: Disposition: Home Physician Follow Up: \ Grady Das DO [address] [facility] [id number] Follow up in 1 month(s) Renal mass evaluation vs survaliance Requiring Further Evaluation/Follow Up POST HOSPITALIZATION/Incidental Findings: Renal mass Diet: regular diet Activity: As tolerated Instructions to Patient: Follow up with PCP for renal mass surveillance Discharge Medications: Medication List START taking these medications cyclobenzaprine 10 MG tablet Commonly known as: FLEXERIL Take 1 tablet by mouth 3 times daily as needed for Muscle spasms methylPREDNISolone 4 MG tablet Commonly known as: MEDROL DOSEPACK Take by mouth. CONTINUE taking these medications Hyzaar 50-12.5 MG per tablet Generic drug: losartan-hydroCHLOROthiazide metoprolol succinate 25 MG extended release tablet Commonly known as: TOPROL XL oxyCODONE-acetaminophen 5-325 MG per tablet Commonly known as: PERCOCET Where to Get Your Medications These medications were sent to [id number] - [place], [place] - [address] [facility] - P [phone] - F [phone] [place] [id number] cyclobenzaprine 10 MG tablet methylPREDNISolone 4 MG tablet No discharge procedures on file. Time Spent on discharge is 40 mins in patient examination, evaluation, counseling as well as medication reconciliation, prescriptions for required medications, discharge plan and follow up. Electronically signed by JARON Zaragoza NP 12/03/2024 10:20 AM Thank you Grady Salter DO for the opportunity to be involved in this patient's care. documented in this encounterBon [facility]* Diagnosis Onset Date Resolution Status Admit Date Hypertension acute October 21, 2024 2:52pm Major depression acute October 21, 2024 2:52pm Palpitations acute October 21, 2024 2:52pm Primary insomnia acute October 21, 2024 2:52pm Screening for colon cancer acute October 21, 2024 2:52pm Screening mammogram for [facility] cancer acute October 21 2:52pm Wellness examination acute 2024 2:52pm Hypertension acute November 2:30pm Major depression acute December 10, 2024 2:30pm Primary insomnia acute December 10, 2024 2:30pm Renal mass, right acute Februar y 2024 2:30pm S/P cholecystectomy noneactive u 2024 2:30pm [facility] Work Phone: 1(131) 293-758708-22-2024 History of Present illness Narrative* Mita Chaudhari LPN - 06/05/2024 11:50 AM EDT Reason for Appointment: Patient ID: Jennifer Zamora is a 53 y.o. female who presents for [facility] Visit Patient presents today for Annual [...] nursing note reviewed. Exam conducted with a laundromat worker present. Vitals: Estimated body mass index is [...] inability to climax. Will send order to [facility] for Progesterone/Testosterone cream to be [...] of: Armando Martinez DO documented in this encounterResearch Medical Center-Brookside [id number] Evaluation note* Encounter Date Diagnosis Assessment Notes Treatment Notes Treatment Clinical Notes Aug, Seasonal allergies (ICD-10 - J30.2) [employer] Other 08-14-2023 Evaluation note* Encounter Date Diagnosis Assessment Notes Treatment Notes Treatment Clinical Notes May, Acute bacterial conjunctivitis of left eye (ICD-10 - H10.32) Use artificial tears as much as possible. Use warm washcloth to remove crusting debris from lashes May, Dysfunction of left eustachian tube (ICD-10 - H69.92) Flonase and Claritin Tonia Valsalva to open ET [employer] Other 07-19-2023 Evaluation note* Encounter Date Diagnosis Assessment Notes Treatment Notes Treatment Clinical Notes Apr, Seasonal allergic rhinitis, unspecified trigger (ICD-10 - J30.2) [employer] Other 05-08-2023 Evaluation note* Encounter Date Diagnosis [...] Other Healthy diet, exercise and keep active [employer] Other 04-26-2023 NotePROCEDURE: XR FOOT RT MIN [...] Electronically authenticated by: LAM DORSEY Date: 2023-02-07 12:23[facility]04-26-2023 NotePROCEDURE: XR ANKLE RT MIN 3 VIEWS DATE: 02/07/2023 10:24 AM CDT COMPARISONS: None CLINICAL INDICATION: Right ankle pain. FINDINGS: There is no evidence of fractures or other osseous abnormalities. The ankle mortise is intact. IMPRESSION: Right ankle radiographs show no evidence of significant abnormalities. Electronically authenticated by: LAM DORSEY Date: 2023-02-07 12:19[facility]03-08-2023 Evaluation note* Encounter Date Diagnosis Assessment Notes Treatment Notes Treatment Clinical Notes Dec, Seasonal allergic rhinitis, unspecified trigger (ICD-10 - J30.2) [employer] Other 02-06-2023 Evaluation note* Encounter Date Diagnosis [...] no improvement in 2 to 3 days. [employer] Other 02-02-2023 Evaluation note* Encounter Date Diagnosis Assessment Notes Treatment Notes Treatment Clinical Notes Nov, Acute cystitis without hematuria (ICD-10 - N30.00) Discussed that bactrim could address her sinusitis symptoms as well. Take tylenol for body aches. Pt unable to provide a UA due to her work responsibilties. [employer] Other 05-19-2022 Hospital Discharge instructions Patient Education 03/02/2022 11:06:17 [...] degrees Follow Up Care 02/21/2022 15:13:40 With:MABLE HAZEL Address: [address] [place] [address] Business (1) When:6 weeks Comments:Call for followup appointment. Please finish your antibiotics. Monitor the urinary pattern after the dilation today. [facility]05-09-2022 Hospital Discharge instructions Patient Education 02/20/2022 14:38:38 Urinary Tract Infection, Adult, Chye-et-Vhhu Urinary Tract Infection, Adult A urinary tract [...] Follow these instructions at home: Medicines Take mgfj-sjl-qyqohiu and prescription medicines only as told by [...] 03/19/2009 Document Revised: 09/18/2019 Document Reviewed: 04/10/2019 [employer] Patient Education 2020 [employer]. Follow Up Care 01/31/2022 10:31:51 With:CHARLEE OSCAR, MABLE Toney, URL Address: [address] [place] [address] When: Unknown Comments:Will schedule Cysto [facility] Isabel 03-20-2022 Evaluation note* Encounter Date Diagnosis Assessment Notes Treatment Notes Treatment Clinical Notes Dec, Dysuria (ICD-10 - R30.0) Dec, Urinary tract infection, site not specified (ICD-10 - N39.0) Drink plenty fluids, get plenty of rest. Take the Macrobid as prescribed until gone. Take the Diflucan as prescribed until gone. Continue to take the boll-aez-ohydpgl Azo for your symptoms. Follow-up with your physician if no improvement in 2 to 3 days. Dec, Hematuria, unspecified (ICD-10 - R31.9) [employer] Other 10-20-2021 Evaluation note* Encounter Date Diagnosis [...] Patient care instructions given in writting by [facility] Care At Home document. Cliff thredUP Other evaluation + Plan note Future Appointments Appointment Date:02/23/2022 09:45:00 AM Scheduled Provider: Location:[facility] Appointment Type:Urology CALL PAT FT Appointment Date:03/02/2022 11:00:00 AM Scheduled Provider: Location:[facility] Appointment Type:Urology FT [facility] Evaluation + Plan note Future Appointments Appointment Date:04/13/2022 03:15:00 PM Scheduled Provider:MABLE HAZEL PA-C Location:[facility] Appointment Type:URO [facility] noteNo InformationNortCl[facility] Other evaluation noteNo assessment information available [facility] Work Phone: evalummrmz note* Diagnosis Onset Date Resolution Status Acute frontal sinusitis acut e [facility] Work Phone: Evaluation note* Diagnosis Onset Date Resolution Status Acute frontal sinusitis acut e Hypertension acute Major depression acute Palpitations acute [facility] Work Phone: evaluation note* Diagnosis Well woman exam with routine [...] acute October 21 2:52pm Wellness examination acute Adarsh 2024 2:52pm [facility] Work Phone: Evaluation note* Diagnosis Acute biliary pancreatitis without infection or necrosis- Primary Gallstones Calculus of gallbladder without mention of cholecystitis or obstruction Hypertension Unspecified essential hypertension Renal mass Unspecified disorder of kidney and ureter Pancreatitis, unspecified pancreatitis type documented in this encounter Adrián Titus [facility] general Narrative - Reported* Type Description Date Medical History Hypertension Medical History ADHD Medical History chronic depression Medical History heart palpitations Surgical History C section Surgical History hysterectomy Surgical History appendectomy Hospitalization History see above [employer] Other History general Narrative - Reported* Type Description [...] History appendectomy 2010 Hospitalization History see above [employer] Other History of Present illness Narrative* Patient [...] month or earlier if the need arise [facility] [address] DO Work Phone: History of Present [...] year with plan to repeat her EKG [facility] 250 DO Work Phone: Hospital course Narrative No data available for this section [facility] Progress note No data available for this section [facility] Reason for referral (narrative)No reason for referral information availableLima City Hospital Work Phone: Rezati for visit Narrative* Auth/Cert Specialty Diagnoses / Procedures Referred By Simin chapman Referred To Contact Diagnoses Acute biliary pancreatitis without infection or necrosis Pancreatitis Krish Ferreira, DO [address] [address] [facility] [address] [place] [address] Referral ID Status Reason Start Date Expiration Date Visits Re quested Visits Authorized [id number] 1 1 [facility] Summary Purpose Family History Unknown Family Member [...] Time Advance Directives No May 03 2:09pm Date Activated Date Inactivated Comments 11/30/2024 9:14 PM Chief Complaint JENNIFER ZAMORA is being seen [...] shot congestion,headache,(smell coming from nose?) depression medication [phone] Reason for Visit Acute frontal sinusi tis Hypertension Major depression Palpitations Chief Complaint Admit Date Wellness October 21, 2024 2: 52pm Reason for Visit Admit Date Hypertension October 21, 2024 2: 52pm Major depression October 21, 2024 2: 52pm Palpitations October 21, 2024 2: 52pm Screening mammogram for breast cancer [facility] 2024 2:52pm Wellness examination October 21, 2024 2 :52pm Chief Complaint Admit Date Wellness October 21, 2024 2: 52pm Amb Documentation December 04, 2024 9:37am IP [facility] cholecystectomy 2024 2:30pm Reason for Visit Admit Date Hypertension October 21, 2024 2: 52pm Major depression October 21, 2024 2: 52pm Palpitations October 21, 2024 2: 52pm Primary insomnia October 21, 2024 2: 52pm Screening for colon cancer October 21, 2024 2:52pm Screening mammogram for breast cancer [facility] 2024 2:52pm Wellness examination October 21, 2024 2 :52pm Hypertension December 10, 2024 2:30pm Major depression December 10, 2024 2:30pm Primary insomnia December 10, 2024 2:30pm Renal mass, right December 10, 2024 2:30pm S/P cholecystectomy December 10, 2024 2:30pm Chief Complaint Admit Date frequency to urinate, congestion, sinus pressure May 05, 2025 2:40pm Chief Complaint Admit Date frequency to urinate, congestion, sinus pressure May 05, 2025 2:40pm Amb Documentation June 03, 2025 1: 24pm [facility] F/U/Reminded Pt June 08, 2025 8:28am Reason for Visit Admit Date Urinary frequency May 05, 2025 2:40 pm Acute non-recurrent maxillary sinusitis May 05, 2025 2:40pm H/O partial nephrectomy June 08 8:28am Hypertension June 08, 2025 8: 28am Renal mass, right June 08, 2025 8: 28am S/P cholecystectomy June 08, 2025 8: 28am Additional Source Comments INFORMATION SOURCE (unrecogn ized section and content) DATE CREATED AUTHOR 04/09/2021 [facility] DATE CREATED AUTHOR AUTHOR'S ORGANIZ ATION 01/05/2022 [facility] DATE CREATED AUTHOR AUTHOR'S ORGANIZ ATION 07/19/2022 [facility] DATE CREATED AUTHOR AUTHOR'S ORGANIZ ATION 07/19/2022 [employer] DATE CREATED AUTHOR AUTHOR'S ORGANIZ ATION 02/16/2023 [facility] DATE CREATED AUTHOR AUTHOR'S ORGANIZ ATION 06/07/2024 [facility] EPIC DATE CREATED AUTHOR AUTHOR'S ORGANIZ ATION 12/13/2024 [facility] DATE CREATED AUTHOR AUTHOR'S ORGANIZ ATION 05/20/2025 [facility] DATE CREATED AUTHOR AUTHOR'S ORGANIZ ATION [facility]/21/20[facility] DATE CREATED AUTHOR AUTHOR'S ORGANIZ ATION 06/03/2025 [facility] DATE CREATED AUTHOR AUTHOR'S ORGANIZ ATION 06/04/2025 [facility] REASON FOR VISIT (unrecogniz ed section and content) Reason Comments Well Women Visit Care Teams (unrecognized sec tion and content) Team Status: Active Member Role Status Dates Grady Das DO Primary Care Provider Active Team Status: Inactive Member Role Status Dates Grady Das DO Primary Care Provider Active Start: May 05, 2025 End: May 05, 2025 Shasha Isaac APRN Attending Provider Active Start: May 05, 2025 End: May 05, 2025 Team Status: Active Member Role Status Dates Grady Das DO Primary Care Provider Active Start: January 08, 2024 NEETU Garcia Attending Provider Active Start : January 08, 2024 Team Status: Inactive Member Role Status Dates Grady Das DO Primary Care Provide r, Attending Provider Active Start: February 01, 2024 End: February 01, 2024 Team Status: Active Member Role Status Dates Grady Das DO Primary Care Provider Active Start: March 26, 2024 Yaneth Ann DO Attending Provider Active Start: March 26, 2024 Team Status: Active Member Role Status Dates Grady Das DO Primary Care Provide r, Attending Provider Active Start: March 27, 2024 Team Status: Inactive Member Role Status Kurtis Das DO Primary Care Provide r, Attending Provider Active Start: May 05, 2024 End: May 05, 2024 Team Status: Active Member Role Status Kurtis Das DO Primary Care Provider Active Start: June 05, 2024 Armando Martinez DO Attending Provider Active Start : June 05, 2024 Team Status: Inactive Member Role Status Dates Grady Das DO Primary Care Provider Active Start: June 13, 2024 End: June 13, 2024 Cindy Lake APRN Attending Provider Active Start: June 13, 2024 End: June 13, 2024 Team Status: Inactive Member Role Status Kurtis Das DO Primary Care Provide r, Attending Provider Active Start: June 23, 2024 End: June 23, 2024 Team Status: Active Member Role Status Kurtis Das DO Primary Care Provide r, Attending Provider Active Start: October 14, 2024 Team Status: Inactive Member Role Status Kurtis Das DO Primary Care Provide r, Attending Provider Active Start: October 21, 2024 End: October 21, 2024 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 Relationship Specialty Start Date End Date Grady Das DO [address] [place] [address] PCP - General Internal Medicine 11/30/24 Team Status: Active Member Role Status Dates Grady Das DO Primary Care Provider Active Start: November 30, 2024 Holger Locke DO Attending Provider Active S tart: November 30, 2024 Team Status: Active Member Role Status Dates Grady Das DO Primary Care Provider Active Start: December 04, 2024 Maya Washburn CMA Attending Provider Active Start: December 04, 2024 Team Status: Inactive Member Role Status Dates Grady Das DO Primary Care Provide r, Attending Provider Active Start: December 10, 2024 End: December 10, 2024 Team Status: Active Member Role Status Dates Grady Das DO Primary Care Provider Active Start: June 03, 2025 Maya Washburn CMA Attending Provider Active Start: June 03, 2025 Team Status: Inactive Member Role Status Dates Grady Das DO Primary Care Provider Active Start: June 08, 2025 End: June 08, 2025 Grady Das DO Attending Provider Active Sta rt: June 08, 2025 End: June 08, 2025 Goals (unrecognized section and content) Goals may be documented in a n alternate section Ordered Prescriptions (unrec ognized section and content) Prescription Sig Dispensed Refills Start Date End Da te cyclobenzaprine (FLEXERIL) 10 MG tablet Take 1 tablet by mouth 3 times daily as needed for Muscle spasms 21 tablet 12/03/2024 12/13/2024 methylPREDNISolone (MEDROL DOSEPACK) 4 MG tablet Take by mouth. 1 kit 12/03/2024 12/09/2024 Scheduled Active and Recently Administ ered Medications (unrecognized section and content) Medication Order 12/01/2024 12/02/2024 12/03/2024 enoxaparin (LOVENOX) injection 40 mg 40 mg, SubCUTAneous, DAILY, First dose on Sun12/01/24 at 0900, Until Discontinued, Indication of Use: Prophylaxis-DVT/PE, Administer by deep subCUTAneous injection with pt lying down. Alternate injection sites on abdominal wall. Do not rub site after injection. Check with provider prior to any invasive procedure., On hold since Sun12/01/2024 at 1648 until manually unheld 0953 (Given - Provider: Marcella Hernandez RN)1648 (Held by provider - Provider: Philip Au DO - Reason: Other) 0900 (Automatically Held - Provider: Philip Au DO) 0900 (Automatically Held - Provider: Philip Au DO) lidocaine 4 % external patch 1 patch 1 patch, TransDERmal, Administer over 12 Hours, DAILY, First dose on Sun12/01/24 at 0900, Apply patch to back. The refund clerk's recommendations for the number of patches that can be applied within a 24-hour period varies from 1 to 4 times daily and the duration of application varies from 8 to 24 hours; refer to the refund clerk's labeling for product-specific recommendations. 0941 (Patch Applied - Provider: Marcella Hernandez RN)2302 (Patch Removed - Provider: Carin Pulido RN) 0928 (Not Given - Provider: Aria Miles RN - Reason: Patient/family refused)1431 (MAR Hold - Provider: Mar Autohold - Reason: Unreviewed Transfer Orders)1813 (DEC Unhold - Provider: Aria Miles RN) 0839 (Not Given - Provider: Aria Miles RN - Reason: Patient/family refused) LORazepam (ATIVAN) injection 2 mg (COMPLETED) 2 mg, IntraVENous, ONCE, 1 dose, On Sun12/01/24 at 1830, Immediately prior to intravenous use, lorazepam Injection must be diluted with at least an equal volume of compatible solution (NS or D5W)., Please retimed for 30 minutes prior to MRI 0725 (Given - Provider: Carin Pulido RN) morphine (PF) injection 1 mg (COMPLETED) 1 mg, IntraVENous, ONCE, 1 dose, On Sun12/01/24 at 2300, If oral and IV narcotics ordered, use oral first and only use IV if oral is ineffective or cannot take oral. Do Not give oral and IV within 1 hour of each other unless specifically ordered. 2300 (Given - Provider: Carin Pulido RN) piperacillin-tazobactam (ZOSYN) 3,375 mg in sodium chloride 0.9 % 50 mL IVPB (mini-bag)(Linked Group 1) 3,375 mg, IntraVENous, EVERY 8 HOURS, First dose on Sun12/03/24 at 0100, Until Discontinued, Antimicrobial Indications: Intra-Abdominal Infection 010 (New Bag - Provider: Lorri Arguelles, MISHEL)0509 (Stopped - Provider: Lorri Arguelles RN)0839 (New Bag - Provider: Aria Miles RN)1330 (Stopped - Provider: Aria Miles RN)1700 (Due) piperacillin-tazobactam (ZOSYN) 4,500 mg in sodium chloride 0.9 % 100 mL IVPB (mini-bag) (COMPLETED)(Linked Group 1) 4,500 mg, IntraVENous, ONCE, 1 dose, On Sun12/02/24 at 1900, Antimicrobial Indications: Intra-Abdominal Infection 1900 (New Bag - Provider: Aria Miles RN)1930 (Stopped - Provider: Lorri Arguelles RN) sodium chloride flush 0.9 % injection 5-40 mL 5-40 mL, IntraVENous, EVERY 12 HOURS SCHEDULED (2 times per day), First dose on Sun11/30/24 at 2130, Until Discontinued, For Line Patency: Peripheral IV = 5 mL; Midline or Central Line = 10 mL/lumen. If following IV push medication, administer flush at same rate as the IV push. Flush volume is determined by type of infusion therapy being given. For non-viscous solutions use: Peripheral IV = 5 mL Midline or Central Line = 10 mL/lumen For viscous solutions (i.e. blood components, parenteral nutrition, contrast media, or after obtaining blood sample) use: Peripheral IV = 10 mL Midline or Central Line = 20 mL/lumen 0953 (Not Given - Provider: Marcella Hernandez RN - Reason: IV Fluid Infusing)2302 (Not Given - Provider: Carin Pulido RN - Reason: IV Fluid Infusing) 0927 (Not Given - Provider: Aria Miles RN - Reason: IV Fluid Infusing)1431 (MAR Hold - Provider: Steff Autohold - Reason: Unreviewed Transfer Orders)1813 (MAR Unhold - Provider: Aria Miles RN)2032 (Not Given - Provider: Lorri Arguelles RN - Reason: IV Fluid Infusing) 0839 (Given - Provider: Aria Miles RN)2100 (Due) tiZANidine (ZANAFLEX) tablet 4 mg (COMPLETED) 4 mg, Oral, ONCE, 1 dose, On Sun12/01/24 at 2300 2301 (Given - Provider: Carin Pulido RN) Continuous Medication Order 12/01/2024 12/02/2024 12/03/2024 lactated ringers infusion ()(Linked Group 2) IntraVENous, at 250 mL/hr, CONTINUOUS, Starting on 11/30/24 at 2130, For 12 hours 0216 (Rate/Dose Change - Provider: Marcella Hernandez RN)0217 (Rate/Dose Verify - Provider: Marcella Hernandez RN)0219 (Stopped - Provider: Marcella Hernandez RN)0219 (New Bag - Provider: Arleth Watkins RN)0550 (New Bag - Provider: Arleth Watkins RN)0948 (Stopped - Provider: Marcella Hernandez RN) lactated ringers infusion(Linked Group 2) IntraVENous, at 150 mL/hr, CONTINUOUS, Starting on 12/01/24 at 0930 0950 (New Bag - Provider: Marcella Hernandez RN)0959 (Stopped - Provider: Marcella Hernandez RN)1035 (Restarted - Provider: Marcella Hernandez RN)1036 (Paused - Provider: Marcella Hernandez RN)1036 (Restarted - Provider: Marcella Hernandez RN)1626 (Rate/Dose Verify - Provider: Marcella Hernandez RN)1633 (New Bag - Provider: Marcella Hernandez RN)2308 (New Bag - Provider: Carin Pulido, MISHEL) 0610 (New Bag - Provider: Carin Pulido RN)1431 (MAR Hold - Provider: Steff Autohold - Reason: Unreviewed Transfer Orders)1813 (MAR Unhold - Provider: Aria Miles RN) 0000 (New Bag - Provider: Lorri Arguelles RN)1343 (Stopped - Provider: Aria Miles RN) PRN Medication Order 12/01/2024 12/02/2024 12/03/2024 0.9 % sodium chloride infusion IntraVENous, at 5-250 mL/hr, PRN, if patient receiving piggyback infusions and maintenance fluids are not ordered, Starting on 11/30/24 at 2114, For piggyback infusion, administer at same rate as piggyback for a total of 25 mL. Enter 25 mL into dose field and piggyback rate into rate field of order. If piggyback is infusing at a rate less than 100 mL/hr, enter 25 mL into dose field and 100 mL/hr into rate field of order. 143 (DEC Hold - Provider: [facility] Aut[employer] - Reason: Unreviewed Transfer Orders)181 ([facility] Unhold - Provider: Aria Miles RN) BUPivacaine-EPINEPHrine PF (MARCAINE-w/EPINEPHrine) 0.5% -[id number] injection (CANCELED) PRN, Starting on Sun12/02/24 at 1455, Until Sun12/02/24 at 1616, Intra-op 1455 (Given - Provider: Glen Arreola MD - Comment: OPERATIVE SITE) gadoteridol (PROHANCE) injection 15 mL (COMPLETED) 15 mL, IntraVENous, IMG ONCE PRN, 1 dose, Starting on Sun12/02/24 at 0829, Until Sun12/02/24 at 0830, Other 0830 (Given - Provider: Desi Ratliff) HYDROcodone-acetaminophe n (NORCO) 5-325 MG per tablet 1 tablet 1 tablet, Oral, EVERY 6 HOURS PRN, Starting on Sun12/01/24 at 1109, Until Discontinued, Pain Severe (7-10), Maximum dose of acetaminophen is 4000 mg from all sources in 24 hours. 1221 (Given - Provider: Marcella Hernandez RN)1817 (Given - Provider: Marcella Hernandez RN) 1136 (Given - Provider: Aria Miles RN)143 ([facility] Hold - Provider: Steff Autohold - Reason: Unreviewed Transfer Orders)181 ([facility] Unhold - Provider: Aria Miles RN) 0655 (Given - Provider: Lorri Arguelles RN)1249 (Given - Provider: Aria Miles RN) ketorolac (TORADOL) injection 15 mg 15 mg, IntraVENous, EVERY 6 HOURS PRN, Starting on 12/01/24 at 0651, Until 12/06/24 at 0650, Pain Moderate (4-6), Do not administer for more than 5 days. 1933 (Given - Provider: Marcella Hernandez RN) 0611 (Given - Provider: Carin Pulido RN)143 ([facility] Hold - Provider: [facility] [employer] - Reason: Unreviewed Transfer Orders)181 ([facility] Unhold - Provider: Aria Miles RN) magnesium sulfate 2000 mg in 50 mL IVPB premix 2,000 mg, IntraVENous, at 25 mL/hr, Administer over 2 Hours, PRN, Other, Per IV Magnesium Replacement Protocol, Starting on 11/30/24 at 2114, Mg Lab Replacement Action 1.4-1.6 2 gram IVPB x 1 doses (2 gram Total) 1.0-1.3 2 gram IVPB x 2 doses (4 gram Total) less than 1.0 CALL PHYSICIAN and 2 gram IVPB x 2 doses (4 gram Total) Infuse at 1 gram/hr Repeat Mag level 1 hour after final administration Protocol not for use in Patients with CrCl less than 30mL/min 143 ([facility] Hold - Provider: Steff Autohold - Reason: Unreviewed Transfer Orders)181 ([facility] Unhold - Provider: Aria Miles RN) morphine (PF) injection 1 mg 1 mg, IntraVENous, EVERY 4 HOURS PRN, Starting on 12/01/24 at 0651, Until Discontinued, Pain Severe (7-10), If oral and IV narcotics ordered, use oral first and only use IV if oral is ineffective or cannot take oral. Do Not give oral and IV within 1 hour of each other unless specifically ordered. 163 (Given - Provider: Marcella Hernandez RN)2057 (Given - Provider: Carin Pulido RN) 033 (Given - Provider: Carin Pulido RN)143 ([facility] Hold - Provider: Steff Autohold - Reason: Unreviewed Transfer Orders)181 ([facility] Unhold - Provider: Aria Miles RN) ondansetron (ZOFRAN) injection 4 mg(Linked Group 3) 4 mg, IntraVENous, EVERY 6 HOURS PRN, Starting on 11/30/24 at 2114, Until Discontinued, Nausea, Vomiting, Administer if oral route cannot be used. 1637 (Given - Provider: Marcella Hernandez RN) 143 ([facility] Hold - Provider: Steff Autohold - Reason: Unreviewed Transfer Orders)181 ([facility] Unhold - Provider: Aria Miles RN) ondansetron (ZOFRAN-ODT) disintegrating tablet 4 mg(Linked Group 3) 4 mg, Oral, EVERY 8 HOURS PRN, Starting on 11/30/24 at 2114, Until Discontinued, Nausea, Vomiting 1637 (See Alternative - Provider: Marcella Hernandez RN) 143 ([facility] Hold - Provider: Steff Autohold - Reason: Unreviewed Transfer Orders)1812 ([facility] Unhold - Provider: Aria Miles RN) potassium chloride 10 mEq/100 mL IVPB (Peripheral Line)(Linked Group 4) 10 mEq, IntraVENous, PRN, Starting on 11/30/24 at 4, Until Sun12/19/24 at 2112, at 100 mL/hr, Per IV Potassium Replacement Protocol, Use when central line is not available for replacement. K Lab Replacement Action 3.1-3.5 10 mEq IVPB x 4 doses (40 mEq Total) 2.7-3.0 10 mEq IVPB x 6 doses (60 mEq Total) less than 2.7 CALL PHYSICIAN and 10 mEq IVPB x 6 doses (60 mEq Total) Infuse at 10 mEq/hr Repeat Potassium lab 1 hour after final administration. Protocol not for use in Patients with CrCl less than 30mL/min 143 ([facility] Hold - Provider: Steff Autohold - Reason: Unreviewed Transfer Orders)1812 ([facility] Unhold - Provider: Aria Miles RN) potassium chloride 20 mEq/50 mL IVPB (Central Line)(Linked Group 4) 20 mEq, IntraVENous, PRN, Starting on 11/30/24 at 2113, Until Sun12/19/24 at 2112, at 50 mL/hr, Per IV Potassium Replacement Protocol, Use first line when central line is available for replacement. K Lab Replacement Action 3.1-3.5 20 mEq IVPB x 2 doses (40 mEq Total) 2.7-3.0 20 mEq IVPB x 3 doses (60 mEq Total) less than 2.7 CALL PHYSICIAN and 20 mEq IVPB x 3 doses (60 mEq Total) Infuse at 20 mEq/hr Repeat Potassium lab 1 hour after final administration. Protocol not for use in Patients with CrCl less than 30mL/min 143 ([facility] Hold - Provider: Steff Autohold - Reason: Unreviewed Transfer Orders)1812 ([facility] Unhold - Provider: Aria Miles RN) sodium chloride flush 0.9 % injection 5-40 mL 5-40 mL, IntraVENous, PRN, Starting on 11/30/24 at 2113, Until Discontinued, Line Care, After every IV line use, For Line Patency: Peripheral IV = 5 mL; Midline or Central Line = 10 mL/lumen. If following IV push medication, administer flush at same rate as the IV push. Flush volume is determined by type of infusion therapy being given. For non-viscous solutions use: Peripheral IV = 5 mL Midline or Central Line = 10 mL/lumen For viscous solutions (i.e. blood components, parenteral nutrition, contrast media, or after obtaining blood sample) use: Peripheral IV = 10 mL Midline or Central Line = 20 mL/lumen 1431 ([facility] Hold - Provider: Steff Autohold - Reason: Unreviewed Transfer Orders)1813 ([facility] Unhold - Provider: Aria Miles RN) Linked Groups Order Group 1: piperacillin-tazobactam (ZOSYN) 4,500 mg in sodium chloride 0.9 % 100 mL IVPB (mini-bag) (COMPLETED)Jump to med 4,500 mg, IntraVENous, ONCE, 1 dose, On Sun12/02/24 at 1900, Antimicrobial Indications: Intra-Abdominal Infection Followed by piperacillin-tazobactam (ZOSYN) 3,375 mg in sodium chloride 0.9 % 50 mL IVPB (mini-bag)Jump to med 3,375 mg, IntraVENous, EVERY 8 HOURS, First dose on Sun12/03/24 at 0100, Until Discontinued, Antimicrobial Indications: Intra-Abdominal Infection Group 2: lactated ringers infusion ()Jump to med IntraVENous, at 250 mL/hr, CONTINUOUS, Starting on Sun11/30/24 at 2130, For 12 hours Followed by lactated ringers infusionJump to med IntraVENous, at 150 mL/hr, CONTINUOUS, Starting on Sun12/01/24 at 0930 Group 3: ondansetron (ZOFRAN-ODT) disintegrating tablet 4 mgJump to med 4 mg, Oral, EVERY 8 HOURS PRN, Starting on Sun11/30/24 at 2114, Until Discontinued, Nausea, Vomiting Or ondansetron (ZOFRAN) injection 4 mgJump to med 4 mg, IntraVENous, EVERY 6 HOURS PRN, Starting on Sun11/30/24 at 2114, Until Discontinued, Nausea, Vomiting, Administer if oral route cannot be used. Group 4: potassium chloride 20 mEq/50 mL IVPB (Central Line)Jump to med 20 mEq, IntraVENous, PRN, Starting on Sun11/30/24 at 2113, Until Sun12/19/24 at 2112, at 50 mL/hr, Per IV Potassium Replacement Protocol, Use first line when central line is available for replacement. K Lab Replacement Action 3.1-3.5 20 mEq IVPB x 2 doses (40 mEq Total) 2.7-3.0 20 mEq IVPB x 3 doses (60 mEq Total) less than 2.7 CALL PHYSICIAN and 20 mEq IVPB x 3 doses (60 mEq Total) Infuse at 20 mEq/hr Repeat Potassium lab 1 hour after final administration. Protocol not for use in Patients with CrCl less than 30mL/min Or potassium chloride 10 mEq/100 mL IVPB (Peripheral Line)Jump to med 10 mEq, IntraVENous, PRN, Starting on Sun11/30/24 at 2113, Until Sun12/19/24 at 2112, at 100 mL/hr, Per IV Potassium Replacement Protocol, Use when central line is not available for replacement. K Lab Replacement Action 3.1-3.5 10 mEq IVPB x 4 doses (40 mEq Total) 2.7-3.0 10 mEq IVPB x 6 doses (60 mEq Total) less than 2.7 CALL PHYSICIAN and 10 mEq IVPB x 6 doses (60 mEq Total) Infuse at 10 mEq/hr Repeat Potassium lab 1 hour after final administration. Protocol not for use in Patients with CrCl less than 30mL/min FOR RECORDS PERTAINING TO PATIENTS WHO ARE [...] BE BASED ON THE PRIMARY CLINICAL RECORDS. [employer] provides no warranty or guarantee of the accuracy or completeness of information in this document.
[2025-06-08 16:37] LABS: Glucose Urine UA NEGATIVE (NEGATIVE)
[2025-06-08 16:46] LABS: Cast Seen? NONE SEEN #/LPF (NONE SEEN); Crystals Seen? None Seen #/HPF (None Seen)
== END 2025-06-08 16:04 | disposition home or self-care (01) ==
PROVIDERS: PCP Internal Medicine; Visit Provider Internal Medicine
DX: R30.0 Dysuria (principal); Z90.5 Acquired absence of kidney
CPT/HCPCS: 81001; 87086

== ENCOUNTER 2025-08-28 15:13 | Outpatient (OUT) | payer BC, SELFPAY ==
--- OUTSIDE RECORDS SUMMARY | 2025-08-28 15:19 | XMS_ITS | CCD ---
Author Organization [facility] Care Team Providers Care Calender Supervisor Name Role Phone Grady Das Unavailable Unavailable Unavailable GRADY DAS Primary Care Physician [phone] Clare Justin Unavailable Dedra, Dr. Ulrich Referring [...] Unavailable PIPPA, DR GAINES Primary Care Unavailable WILLIAMSTON, DR CARLOS Gipson Consulting Unavailable JUAN ., [...] Unavailable BALL, DR GAINES Primary Care Unavailable HIGHLANDER, JOSIAH Calvillo Consulting Unavailable HIGHLANDER, JOSIAH Calvillo Attending Unavailable HIGHLANDER, JOSIAH D Admitting Unavailable LAM DORSEY Consulting Unavailable JAGUAR PERKINS Attending Unavailable ARMANDO MARTINEZ Attending Unavailable Unavailable Primary Care Provider UnavailGrady Yepez DO Primary Care Provider [phone] CARLOS SERVIN Consulting Unavailable KATKO, BETH Referring Unavailable AHMAD, SHOWKAT Admitting Unavailable AHMAD, SHOWKAT Attending Unavailable PIPPA, GRADY Primary Care Unavailable BAIS, GLEN Consulting Unavailable Grady Das DO Primary Care Provider Shasha Isaac APRN Attending Provider Qianae Rosmery MNubia Attending Unavailable Lue, Rosmery M. Referring Unavailable Lue, Rosmery M. Admitting Unavailable Lue, Rosmery M. Attending Unavailable GRADY DAS Referring Unavailable Lue, Rosmery M. Referring Unavailable Lue, Rosmery M. Admitting Unavailable Lue, Rosmery M. Attending Unavailable Lue, Rosmery M. Referring Unavailable Lue, Rosmery M. Admitting Unavailable Lue, Rosmery M. Attending Unavailable Maya Washburn CMA Attending Provider UnavailGrady Carrillo DO Attending Provider [phone] Grady Das Attending Unavailable Grady Das Admitting Unavailable Kym Jorgensen APRN Attending Provider Lue, Rosmery M. Referring Unavailable Lue, Rosmery M. Attending Unavailable Lue, Rosmery M. Admitting Unavailable Lue, Rosmery M. Attending Unavailable Lue, Rosmery M. Attending Unavailable Allergies Allergy ClassificationReported Allergen(s)Allergy TypeDate of OnsetReaction(s) Facility (3 sources)patient allergy list reviewed by nurse or physiciaPropensity to adverse qkmaerupd90-95-6445Lftjyid:[facility] [employer] Other (3 sources)NONE CURRENTPropensity to adverse ncwyyhale00-32-2517SLRA CURRENT [facility] [employer] Other (3 sources)Allergies ReconciledPropensity to adverse reactionsUnknownNorth Coast [facility] Other (5 sources)No Known Medication Allergies; Translations: [No Known Medication Allergies]Propensity to adverse reactions (disorder)[facility] Medications Current Medications MedicationDrug Class(es)DatesSig (Normalized)Sig (Original)aspirin 81 mg delayed release oral tablet (20 sources)Platelet Aggregation Inhibitor, Nonsteroidal Anti-inflammatory Drug Start: 27-79-1775imhi 1 tablet by mouth once dailyaspirin 81 mg Oral EC Tab Oral, Daily, Refills(s) 0 Start Date: 06/10/25 Status: Ordered Repeat number: 1 Start: 97-08-5065cnso 81 mg by mouth once dailyAspirin Low Dose 81 mg, Oral, Daily, Refills(s) 0 Start Date: 05/18/25 Status: Ordered Repeat number:1Start: 03-92-3649efeh 1 mg by mouth once dailyaspirin 81 mg Oral EC Tab mg tab(s), Oral, Daily, Refills(s) 0 Start Date: 02/21/22 Status: OrderedStart: 02-21-2022 End: 20-34-3703rqes 1 tablet by mouth once dailyAspirin 81 mg tablet,delayed release (DR/EC) Discontinued 81 MG PO Daily January 08, 2024 12:00am May 05, 2025 2:47pmBaby Aspirin Not-Taking/PRNBaby Aspirin Not-TakingBaby Aspirin Active Augmentin Tablets 875 MG (1 source)Start: 88-48-4648rjde 1 tablet by mouth every twelve hoursAugmentin Tablets 875 MG 1 tab(s) orally bid for 10 day(s) Jul, Activecalcium chloride 0.0014 meq/ml / potassium chloride 0.004 meq/ml / sodium chloride 0.103 meq/ml / sodium lactate 0.028 meq/ml injectable solution (1 source)Start: 26-90-2533HkbuzJLKiic, at 150 mL/hr, CONTINUOUS, Starting on Sun12/01/24 at 0930cephalexin 500 mg oral capsule (5 sources)Cephalosporin AntibacterialStart: 06-05-2024 End: 54-70-5568fvxh 1 capsule by mouth in the morningcephalexin (Keflex) 500 MG capsule Indications: Acute vaginitis Take 1 capsule (500 mg) by mouth inthe morning and 1 capsule (500 mg) before bedtime. 60 capsule 1 06/05/2024 07/05/2024 ActiveStart: 88-19-8290zusv 1 mg by mouth every twelve hoursKeflex 500 mg Cap mg cap(s), Oral, q12hr, Refills(s) 0 Start Date: 02/21/22 Status: Orderedciprofloxacin 500 mg oral tablet (1 source)Quinolone AntimicrobialStart: 27-95-3394Tkajs 500 mg Tab See Instructions, Take 1 tab day prior to procedure and 1 tab day of procedure after the procedure, # 2 tab(s), Refills(s) 0, Pharmacy: [id number], 169, cm, 02/28/22 9:30:00 EDT, Height/Length Dosing, 95, kg, 02/21/22 14:43:00 EDT, Marciano... Start Date: 02/28/22 Status:OrderedClaritin-D 24 Hour 10-240 MG (1 source)Start: 84-33-5620gevw 10-240 mg by mouth once dailyClaritin-D 24 Hour 10-240 MG 1 tablet Orally Once a day for 30 days May, Active cyclobenzaprine hydrochloride 10 mg oral tablet (1 source)Muscle RelaxantStart: 12-03-2024 End: 48-69-4162xguz 1 tablet by mouth three times daily as needed for muscle spasmscyclobenzaprine (FLEXERIL) 10 MG tablet Take 1 tablet by mouth 3 times daily as needed for Muscle spasms 21 tablet 12/03/2024 12/13/2024 Active dexamethasone 1 mg/ml / neomycin 3.5 mg/ml / polymyxin b 42065 unt/ml ophthalmic suspension (1 source)Aminoglycoside Antibacterial, Polymyxin-class Antibacterial, CorticosteroidStart: 80-20-4738jist 2 drop(s) into the eye(s) four times daily Maxitrol 3.5-07358-1.1 2 drops into affected eye Ophthalmic Four times a day for 4 days Nov, Active0.4 ml enoxaparin sodium 100 mg/ml prefilled syringe (1 source)Low Molecular Weight HeparinStart: 09-20-2121xqqizn 40 mg by subcutaneous injection once daily40 mg, SubCUTAneous, DAILY, First dose on Sun12/01/24 at 0900, Until Discontinued, Indication of Use: Prophylaxis-DVT/PE, Administer by deep subCUTAneous injection with pt lying down. Alternate inject ion sites on abdominal wall. Do not rub site after injection. Check with provider prior to any invasive procedure., On hold since Sun12/01/2024 at 1648 until manually unheldescitalopram 5 mg oral tablet (6 sources)Serotonin Reuptake Inhibitortake 1 tablet by mouth once daily in the eveningEscitalopram Oxalate 5 MG 1 tablet Orally Once a day, in evening for 30 days ActiveLexapro ActiveFish Oils (2 sources)Start: 38-49-6725Aofra-3 Fish Oil 1000 mg oral capsule mg cap(s), Oral, Refills(s) 0 Start Date: 04/27/25 Status: Ordered Repeat number: 1 fluticasone propionate 0.05 mg/actuat metered dose nasal spray (10 sources)CorticosteroidStart: 06-13-2024 End: 34-46-7316ktme 2 spray(s) nasal route once daily as neededStart: 08-03-2021 take 2 spray(s) nasal route once dailyFLONASE 50 mcg 2 sprays nasally qd Jul, ActivehydroCHLOROthiazide 12.5 mg / losartan potassium 50 mg oral tablet (20 sources)Thiazide Diuretic, Angiotensin 2 Receptor BlockerStart: 07-03-2024 take 1 tablet by mouth once dailyLosartan-Hydrochlorothiazide 50-12.5 mg tablet Active 0 .ROUTE .COMPLEX 90 July 03, 2024 8:40am TAKE 1 TABLET BY MOUTH DAILY Complies with drug therapyStart: 04-06-2021 End: 42-61-6272lkiu 1 tablet by mouth once dailyLosartan-Hydrochlorothiazide 50- 12.5 mg tablet Discontinued 1 TAB PO Daily January 08, 2024 12:00amSept2023 8:61tzM6-R2 5000 125 mcg (5000 intl units)-90 mcg oral capsule (2 sources)Start: 45-45-9687Q2-D3 5000 125 mcg (5000 intl units)-90 mcg oral capsule cap(s), Oral, Refill(s) 0 Start Date: 04/27/25 Status: Ordered Repeat number: 11 ml ketorolac tromethamine 15 mg/ml cartridge (1 source)Nonsteroidal Anti-inflammatory Drug, Cyclooxygenase InhibitorStart: 12-01-2024 End: 43-28-220372 mg, IntraVENous, EVERY 6 HOURS PRN, Starting on Sun12/01/24 at 0651, Until 12/06/24 at 0650, Pain Moderate (4-6), Do not administer for more than 5 days.lidocaine 0.04 mg/mg medicated patch (1 source)Antiarrhythmic, Amide Local AnestheticStart: patch, TransDERmal, Administer over 12 Hours, DAILY, First dose on Sun12/01/24 at 0900, Apply patch to back. The hadoop infrastructure architect's recommendations for the number of patches that can be applied within a 24-hour period varies from 1 to 4 times daily and the duration of application varies from 8 to 24 hours; refer to the hadoop infrastructure architect's labeling for product-specific recommendations.24 hr loratadine 10 mg / pseudoephedrine sulfate 240 mg extended release oral tablet (2 sources)alpha-Adrenergic AgonistStart: 83-94-0346mfvi 1 tablet by mouth every twenty-four hoursClaritin-D 24 Hour 10-240 MG 1 tablet Orally Once a day for 30 days May, ActiveLosartan Potassium-HCTZ (2 sources)Losartan Potassium-HCTZ Bbdhyj00 ml magnesium sulfate 40 mg/ml injection (1 source)Start: 57-15-3696vlvjheKVKRXIFehspu 4 mg oral tablet (13 sources)CorticosteroidStart: 12-03-2024 End: 62-30-7430pepmnhLSVMEYBkxiwd (MEDROL DOSEPACK) 4 MG tablet Take by mouth. 1 kit 12/03/2024 12/09/2024 ActiveStart: 12-08-2023 End: 99-43-3304fmaienRZJHBRMinpwp (Medrol Dospak) 4 MG tablets TAKE BY MOUTH DIRECTED ON PACKAGE 12/08/2023 06/05/2024 DiscontinuedStart: 14-07-6244Qbggjc 4 MG as directed Orally as directed for 6 days Nov, Kqesmk67 hr metoprolol succinate 25 mg extended release oral tablet (20 sources)beta-Adrenergic BlockerStart: 39-47-4824dgfo 1 tablet by mouth once dailyToprol XL 25 mg Tab-ER Oral, Daily, Refills(s) 0 Start Date: 06/10/25 Status: Ordered Repeat number:1Start: 10-02-2024 End: 45-43-9177zima 1 tablet by mouth once dailyMetoprolol Succinate 25 mg tablet extended release 24 hr Active 0 .ROUTE .COMPLEX March 30, 2025 5:07pm TAKE 1 TABLET BY MOUTH ONCE DAILY Complies with drug therapyStart: 10-02-2024 take 1 tablet by mouth once dailyMetoprolol Succinate 25 mg tablet extended release 24 hr Active 0 .ROUTE .COMPLEX September 9:46am TAKE 1 TABLET BY MOUTH DAILYStart: 05-24-2021 End: 42-59-8396irys 1 tablet by mouth once dailyMetoprolol Succinate 25 mg tablet extended release 24 hr Discontinued 25 MG PO Daily January 08, 2024 12:00am October 02, 2024 10:47amtake 1 capsule by mouth once dailyMetoprolol Succinate 25 MG 1 capsule Orally Once a day ActiveMetoprolol Succinate Active ondansetron (ZOFRAN-ODT) disintegrating tablet 4 mg (1 source)Start: 01-62-0926ueiciazbdyj (ZOFRAN-ODT) disintegrating tablet 4 mg24 hr phentermine 7.5 mg / topiramate 46 mg extended release oral capsule (12 sources)Sympathomimetic Amine AnorecticStart: 06-09-9145pnsf 1 capsule by mouth once daily in the morningQsymia 7.5 mg-46 mg oral capsule, extended release Oral, qAM, Refill(s) 0 Start Date: 06/10/25 Status: Ordered Repeat number: 1Start: 35-89-2622totl 1 capsule by mouth once daily in the morning Qsymia 7.5 mg-46 mg oral capsule, extended release cap(s), Oral, qAM, Refill(s) 0 Start Date: 02/21/22 Status: OrderedPotassium Chloride (20 sources)Start: 11-30-2024 End: 93-05-1738jupwjjrit chloride 20 mEq/50 mL IVPB (Central Line)Start: 01-08-2024 End: 40-28-4383ydye 1 tablet by mouth once dailyPotassium Chloride 20 mEq tablet,ER particles/crystals Discontinued 0 .ROUTE .COMPLEX January 08, 2024 5:36pm June 13, 2024 5:24pm TAKE 1 TABLET BY MOUTH DAILYStart: 01-08-2024 End: 34-30-7923eyss 1 tablet by mouth once dailyPotassium Chloride 20 mEq tablet,ER particles/crystals Discontinued 20 MEQ PO Daily January 08, 2024 12:00am January 08, 2024 5:36pmStart: 48-92-3900vwfk 1 tablet by mouth once dailyPotassium Chloride ER 10 MEQ Oral Tablet Extended Release TAKE 1 TABLET DAILY. Quantity: 0 Refills:0 Ordered: 05-Jul-2021 DO Start : 04-Jul-2021 Active take 1 tablet by mouth once dailyPotassium Chloride Gina ER 20 mEq TAKE 1 TABLET BY MOUTH DAILY Activetake 1 tablet by mouth once dailyPotassium Chloride Gina ER 20 mEq TAKE 1 TABLET BY MOUTH DAILY for 30 ActivepredniSONE 20 mg oral tablet (1 source)Start: 26-80-1077azao 1 tablet by mouth every twelve hourspredniSONE 20 MG 1 tablet Orally bid for 5 day(s) Jul, Mzcasv5627 ml sodium chloride 9 mg/ml injection (3 sources)Start: 90-07-1502Nqflh: -40 mL, IntraVENous, EVERY 12 HOURS SCHEDULED (2 times per day), First dose on Sun11/30/24 at 2130, Until Discontinued, For Line Patency: Peripheral IV = 5 mL; Midline or Central Line = 10 mL/lumen.If following IV push medication, administer flush at same rate as the IV push. Flush volume is determined by type of infusion therapy being given. For non-viscous solutions use: Peripheral IV = 5 mL Midline or Central Line = 10 mL/lumen For viscous solutions (i.e. blood components, parenteral nutrition, contrast media, or after obtaining blood sample) use: Peripheral IV = 10 mL Midline or CentralLine = 20 mL/lumenStart: 59-96-2278waaknmxlmwbsfyit 800 mg / trimethoprim 160 mg oral tablet (9 sources)Dihydrofolate Reductase Inhibitor Antibacterial, Sulfonamide AntimicrobialStart: 25-43-5110cvgl 1 tablet by mouth every twelve hoursBactrim DS 800-160 MG 1 tablet Orally Twice a day for 10 day(s) Nov, ActiveSuper B Complex oral tablet (2 sources)Start: 37-98-2269Sozom B Complex oral tablet 1 tab(s), Oral, Daily, 90 tab(s), Refill(s) 0 Start Date: 04/27/25 Status: Ordered Quantity: 90.0 Unit: tab(s) Repeat number: 1 Completed/Discontinued Medications MedicationDrug Class(es)DatesSig (Normalized)Sig (Original)acetaminophen 325 mg / HYDROcodone bitartrate 5 mg oral tablet (4 sources)Opioid AgonistStart: 06-08-2025 End: 92-39-7113oijv 1 tablet by mouth every six hours as needed for pain Hydrocodone-Acetaminophen 5-325 mg tablet Discontinued 1 TAB PO Every 6 hours as needed for pain June 08, 2025 June 19, 2025 2:01pmStart: tablet, Oral, EVERY 6 HOURS PRN, Starting on Sun12/01/24 at 1109, Until Discontinued, Pain Severe(7-10), Maximum dose of acetaminophen is 4000 mg from all sources in 24 hours.acetaminophen 325 mg / oxyCODONE hydrochloride 5 mg oral tablet (1 source)Opioid AgonistoxyCODONE-acetaminophen (PERCOCET) 5-325 MG per tablet Take 1 tablet by mouth every 8 hours as needed for Pain. Max Daily Amount: 3 tablets SuspendedALPRAZolam 0.25 mg oral tablet (11 sources)BenzodiazepineStart: 04-01-2025 End: 83-28-1746Pclzjbpxcl 0.25 mg tablet Discontinued 0 PO Once 2 April 01, 2025 5:02pm May 05, 2025 2:47pm 1-2 tablets taken 60 minutes prior to MRI Start: 06-23-2024 End: 90-00-8379borb 1 tablet by mouth once daily as needed for anxietyAlprazolam 0.25 mg tablet Discontinued 0.25 MG PO Daily as needed for anxiety 07 24June 23, 2024 12:00am April 01, 2025 5:04pmamoxicillin 875 mg / clavulanate 125 mg oral tablet (4 sources)Penicillin-class AntibacterialStart: 05-05-2025 End: 91-33-6562tpvx 1 tablet by mouth twice dailyAmoxicillin-Pot Clavulanate 875-125 mg tablet Discontinued 1 TAB PO Twice daily 03 08May 05, 2025 12:00am June 08, 2025 8:35amazithromycin 250 mg oral tablet (17 sources)Macrolide AntimicrobialStart: 58-84-4382Vbdzozkgcuov Active 0 PO .COMPLEX June 13, 2024 12:00am For 250 mg dose pack: take 500 mg today (day 1), then 250 mg for 4 days (days 2-5) POStart: 02-01-2024 End: 50-57-7727Wndpytvfeykx 250 mg tablet Discontinued 0 PO .COMPLEX June 13, 2024 12:00am October 2153:58pm For 250 mg dose pack: take 500 mg today (day 1), then 250 mg for 4 days (days 2-5) PO24 hr buPROPion hydrochloride 150 mg extended release oral tablet (20 sources)AminoketoneStart: 07-21-2024 End: 26-72-4661vtgn 1 tablet by mouth once daily in the morningBupropion Hcl 150 mg tablet extended release 24 hr Discontinued 0 .ROUTE .COMPLEX July 21, 2024 8:43am May 05, 2025 2:47pm TAKE 1 TABLET BY MOUTH EVERY MORNINGStart: 46-98-3258kksk 1 tablet by mouth once daily in the morningBupropion Hcl 150 mg tablet extended release 24 hr Active 0 .ROUTE .COMPLEX July 21, 2024 7:4 3am TAKE 1 TABLET BY MOUTH EVERY MORNINGStart: 06-23-2024 End: 95-79-5809fpnv 1 tablet by mouth once daily in the morningBupropion Hcl (Wellbutrin Xl) 150 mg tablet extended release 24 hr Discontinued 150 MG PO Every morning June 23, 2024 12:00am July 21, 2024 8:43amStart: 14-34-3100ynwn 1 tablet by mouth once dailybuPROPion HCl ER (SR) 150 MG Oral Tablet Extended Release 12 Hour Take 1 tablet by mouth daily Quantity: 60 Refills: 0 Ordered: 05-Jul-2021 DO Start : 04-Jul-2021 ActiveWellbutrin Not-TakingWellbutrin Activecefixime 400 mg oral capsule (3 sources)Cephalosporin AntibacterialStart: 05-20-2024 End: 08-74-3484mbzqqdaw (Suprax) capsule 05/20/2024 06/05/2024 Discontinued doxycycline monohydrate 100 mg oral capsule (3 sources)Tetracycline-class DrugStart: 05-20-2024 End: 37-40-2397pjkaeqzvpap (Monodox) 100 MG capsule 05/20/2024 06/05/2024 Discontinuedfluconazole 150 mg oral tablet (11 sources)Azole AntifungalStart: 60-97-7827Stxoossv 150 MG 1 tablet Orally as directed Take 1 tablet p.o. today, repeat in 7 days. Dec, Not-Taking/PRN gadoteridol (PROHANCE) injection 15 mL (1 source)Start: 12-02-2024 End: 05-31-0923myeo 1 dose intravenously once15 mL, IntraVENous, IMG ONCE PRN, 1 dose, Starting on Sun12/02/24 at 0829, Until Sun12/02/24 at 0830, Other1 ml LORazepam 2 mg/ml injection (15 sources)BenzodiazepineStart: 12-01-2024 End: 14-76-5958uqjorz 1 dose intravenously once2 mg, IntraVENous, ONCE, 1 dose, On Sun12/01/24 at 1830, Immediately prior to intravenous use, lorazepam Injection must be diluted with at least an equal volume of compatible solution (NS or D5W)., Please retimed for 30 minutes prior to MRIStart: 01-08-2024 End: 93-32-1640pjiq 1 tablet by mouth once daily as needed for anxietyLorazepam 0.5 mg tablet Discontinued 0.5 MG PO January 08, 2024 12:00am June 13, 2024 5:23pm 1/2 - 1 Orally Once a day PRN anxietyStart: 75-41-9498GFIqfshcj 0.5 MG 1/2 - 1 Orally Once a day PRN anxiety for 30 days Sep, Active1 ml morphine sulfate 2 mg/ml cartridge (2 sources)Opioid AgonistStart: 12-01-2024 End: 79-65-3534luao 1 dose by mouth every hour1 mg, IntraVENous, ONCE, 1 dose, On Sun12/01/24 at 2300, If oral and IV narcotics ordered, use oralfirst and only use IV if oral is ineffective or cannot take oral. Do Not give oral and IV within 1 hour of each other unless specifically ordered.Start: 03-64-4233dcyi 1 mg by mouth every four hours as needed1 mg, IntraVENous, EVERY 4 HOURS PRN, Starting on Sun12/01/24 at 0651, Until Discontinued, Pain Severe (7-10), If oral and IV narcotics ordered, use oral first and only use IV if oral is ineffective or cannot take oral. Do Not give oral and IV within 1 hour of each other unless specifically ordered.nitrofurantoin, macrocrystals 25 mg / nitrofurantoin, monohydrate 75 mg oral capsule (11 sources)Nitrofuran AntibacterialStart: 48-37-4313zkzz 1 capsule by mouth every twelve hoursMacrobid 100 MG 1 cap(s) Orally bid for 5 day(s) Dec, Not-Taking/PRNpantoprazole 40 mg delayed release oral tablet (20 sources)Proton Pump InhibitorStart: 01-08-2024 End: 15-63-5900aklr 1 tablet by mouth once daily in the morningPantoprazole 40 mg tablet,delayed release (DR/EC) Discontinued 0 .ROUTE .COMPLEX January 08, 2024 5:36pm June 13, 2024 5:23pm TAKE 1 TABLET BY MOUTH EVERY MORNING ON AN EMPTY STOMACHStart: 01-08-2024 End: 92-56-7675xxgj 1 tablet by mouth once daily in the morningPantoprazole Discontinued 0 .ROUTE .COMPLEX January 08, 2024 5:36pm June 13, 2024 5:23pm TAKE 1 TABLET BY MOUTH EVERY MORNING ON AN EMPTY STOMACHStart: 01-08-2024 take 1 tablet by mouth once daily in the morningPantoprazole Active 0 .ROUTE .COMPLEX January 08, 2024 5:36pm TAKE 1 TABLET BY MOUTH EVERY MORNING ON AN EMPTY STOMACHStart: 01-08-2024 End: 81-92-9078iwnm 1 tablet by mouth once dailyPantoprazole 40 mg tablet,delayed release (DR/EC) Discontinued 40 MG PO Daily January 08, 2024 12:00am January 08, 2024 5:36pmStart: 19-62-9610Iecmteqb 40 mg tablet Daily, Refills(s) 0 Start Date: 02/21/22 Status: Orderedtake 1 tablet by mouth once daily in the morningPantoprazole Sodium 40 mg TAKE 1 TABLET BY MOUTH EVERY MORNING ON AN EMPTY STOMACH for 30 ActivePantoprazole 40 mg tablet,delayed release (DR/EC) (2 sources)Start: 01-08-2024 End: 18-99-6088duwm 1 tablet by mouth once daily in the morningPantoprazole 40 mg tablet,delayed release (DR/EC) Discontinued 0 .ROUTE .COMPLEX January 08, 2024 4:36pm June 13, 2024 4:23pm TAKE 1 TABLET BY MOUTH EVERY MORNING ON AN EMPTY STOMACHpiperacillin-tazobactam (ZOSYN) 3,375 mg in sodium chloride 0.9 % 50 mL IVPB (mini-bag) (1 source)Start: ,375 mg, IntraVENous, EVERY 8 HOURS, First dose on Sun12/03/24 at 0100, Until Discontinued, Antimicrobial Indications: Intra- Abdominal Infectionrosuvastatin calcium 10 mg oral tablet (13 sources)HMG-CoA Reductase InhibitorStart: 19-49-1664grfd 1 tablet by mouth once daily in the eveningRosuvastatin Calcium 10 MG Oral Tablet TAKE 1 TABLET BY MOUTH EVERY EVENING Quantity: 30 Refills: 0Ordered: 23-Sep-2021 DO Start : 24-May-2021 ActiveCrestor Not-Taking/PRNCrestor Not-TakingCrestor Active sulfacetamide sodium 100 mg/ml ophthalmic solution (12 sources)Sulfonamide AntibacterialStart: 02-01-2024 End: 81-71-5859dwyn 1 drop(s) into the eye(s) four times dailySulfacetamide Sodium 10 % drops Discontinued 2 DROPS EYE-BOTH Four times daily 02 18January 312:00am June 13, 2024 5:24pmStart: 02-01-2024 End: 33-24-5315ddyk 1 drop(s) into the eye(s) four times dailySulfacetamide Sodium 10 % drops Discontinued 2 DROPS EYE-BOTH Four times daily 02 18January 301:00pm June 13, 2024 4:24pmStart: 02-01-2024 End: 57-48-9964vinz 1 drop(s) into the eye(s) four times dailySulfacetamide Sodium Discontinued 2 DROPS EYE-BOTH Four times daily 02 18February 01, 2024 12:00am June 13, 2024 5:24pmStart: 31-65-1858jsqa 2 drop(s) into the eye(s) four times dailySulfacetamide Sodium 10 % 2 drops Ophthalmic qid for 7 days May, ActivetiZANidine 4 mg oral tablet (1 source)Central alpha-2 Adrenergic AgonistStart: 12-01-2024 End: 70-47-4589gjme 1 dose by mouth once4 mg, Oral, ONCE, 1 dose, On Sun12/01/24 at 2300traMADol hydrochloride 50 mg oral tablet (5 sources)Opioid AgonistStart: 12-04-2024 End: 82-33-3462qgmp 1 tablet by mouth every eight hours as needed for pain Tramadol 50 mg tablet Discontinued 50 MG PO Every 8 hours as needed for pain 11 05December 04, 2024 1:00am May 05, 2025 2:47pmtriamcinolone acetonide 40 mg/ml injectable suspension (16 sources)CorticosteroidStart: 85-96-9024Gxyxsip-40 Aug, 60 mgStart: 19-76-5403Ipeqkmo-40 Apr, 40 mgzolpidem tartrate 5 mg oral tablet (17 sources)gamma-Aminobutyric Acid-ergic AgonistStart: 10-21-2024 End: 43-55-6992zqdu 1 tablet by mouth once daily at bedtime as needed for sleep Zolpidem 5 mg tablet Discontinued 5 MG PO Daily at bedtime as needed for sleep February 13, 2025 11:50am June 08, 2025 8:52am Problems Active Problems Problem ClassificationProblemDateDocumented DateEpisodic/ChronicAcquired foot deformities (1 source)Foot drop, right footEpisodicAnxiety disorders (20 sources)Generalized anxiety disorder; Translations: [Generalized anxiety disorder]59-86-2280ThpofznFpjlqzbfl-deficit, conduct, and disruptive behavior disorders (3 sources)Attention deficit hyperactivity disorder, predominantly inattentive type; Translations: [Attention deficit disorder of childhood without mention of hyperactivity]Onset: 01-05-0694FzvfuuiRwwoegq tract disease (2 sources)Gallstone; Translations: [Calculus of gallbladder without cholecystitis without obstruction]Onset: 642359-22-8382JhgbmnxgAhgyai of kidney and renal pelvis (2 sources)Malignant tumor of kidney; Translations: [Malignant neoplasm of unspecified kidney, except renal pelvis]Onset: 62-53-8617RrarillVbruphq dysrhythmias (3 sources)Nonsustained ventricular tachycardia ; Translations: [Paroxysmal ventricular tachycardia]ChronicCardiac dysrhythmias (20 sources)Palpitations; Translations: [Palpitations]96-60-8373Gumagesd Conditions associated with dizziness or vertigo (15 sources)Dizziness; Translations: [Dizziness and giddiness]EpisodicDeficiency and other anemia (9 sources)Anemia; Translations: [Anemia, unspecified]76-32-9300FragvkzjVrtuhion mellitus without complication (14 sources)Impaired fasting glycemia; Translations: [Impaired fasting glucose] Onset: 11-34-4102VawxcgdlEafgawzjcy disorders (8 sources)Esophageal reflux finding; Translations: [Esophageal reflux]Onset: 44-04-7503HcxmtktLjzhlprwhw disorders (8 sources)Esophageal disorders; Translations: [Gastroesophageal reflux disease with esophagitis without hemorrhage]Essential hypertension (20 sources)Hypertensive disorder; Translations: [Unspecified essential hypertension]Onset: [id number] and electrolyte disorders (14 sources)Hypokalemia; Translations: [Hypokalemia]Onset: 15-03-6447Smesfztt Genitourinary symptoms and ill-defined conditions (11 sources)Retention of urine; Translations: [Retention of urine, unspecified] Onset: 01-01-2022 Resolved: 69-12-9307VpqtxqkoEzutwngr; including migraine (13 sources)Migraine with aura; Translations: [Migraine with aura, not intractable, without status migrainosus]ChronicHeadache; including migraine (1 source)Headache; including migraine; Translations: [HEADACHE UNSPECIFIED] Onset: 58-47-4619Llkkmgnjsclz; infection of eye (except that caused by tuberculosis or sexually transmitteddisease) (17 sources)Allergic dermatitis of unspecified eye, unspecified eyelid; Translations: [Contact or allergic eyelid dermatitis]Onset: 17-21-2513Vmumcwyq Influenza (3 sources)Upper respiratory tract infection due to Influenza; Translations: [Influenza due to unidentified influenza virus with other respiratory manifestations]EpisodicMiscellaneous mental health disorders (20 sources)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; 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] 59-04-5395LrgwpmcVbdm disorders (20 sources)Mild recurrent major depression; Translations: [Major depressive disorder, recurrent, mild]Onset: 08-24-2015 Resolved: 85-68-6417ElpoqevXxzmp connective tissue disease (1 source)Pain in right foot; Translations: [PAIN IN RIGHT FOOT]Onset: 82-02-3206UncqtwhcYtyec diseases of bladder and urethra (4 sources)Urethral stricture; Translations: [Unspecified urethral stricture, female]Onset: 13-88-7151QffxujtsBpgox diseases of kidney and ureters (12 sources)Renal mass; Translations: [Other specified disorders of kidney and ureter]Onset: 143725-27-7905PxwzoqcWgybtkv on above:CT: 1.5cm right renal mass - T: 1.5cm right renal mass - 11/2024MRI: 1.7cm right renal mass - 04/2025Other diseases of kidney and ureters (1 source)Other specified disorders of kidney and ureter; Translations: [Unspecified disorder of kidney and ureter]06-50-6605GsprfpaJmmdk diseases of kidney and ureters (1 source)Disorder of kidney and/or ureter; Translations: [Other specified disorders of kidney and ureter]Onset: 00-98-2946FgaufggEwsdc endocrine disorders (13 sources)Disorder of endocrine system; Translations: [Endocrine disorder, unspecified]Onset: 36-15-5328ErwaleicWnkqj endocrine disorders (5 sources)Endocrine disorder, unspecified; Translations: [ENDOCRINE DISORDER UNSPECIFIED]Onset: 16-44-9404EyrmitzeBufns gastrointestinal disorders (5 sources)Constipation; Translations: [Constipation, unspecified]06-08-2025 EpisodicOther liver diseases (4 sources)Fatty (change of) liver, not elsewhere classified; Translations: [Metabolic dysfunction-associated steatotic liver disease (MASLD)]06-08-2025 ChronicOther nervous system disorders (7 sources)Common peroneal nerve paralysis; 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, right lower limb]ChronicOther non-traumatic joint disorders (4 sources)Pain in right ankle and joints of right foot; Translations: [PAIN IN RIGHT ANKLE]Onset: 93-65-7812NqibhyeaAbofg nutritional; endocrine; and metabolic disorders (15 sources)Obesity; Translations: [Obesity, unspecified]ChronicOther nutritional; endocrine; and metabolic disorders (3 sources)Simple obesity ; Translations: [Other obesity due to excess calories] Onset: 20-66-6884YyuchrzNatrb nutritional; endocrine; and metabolic disorders (6 sources)Body mass index 30+ - obesity; Translations: [Body mass index 31.0- 31.9, adult]Onset: 03-01-3695EgpvxibOkagn nutritional; endocrine; and metabolic disorders (3 sources)Obese class I; Translations: [Body mass index 32.0-32.9, adult]Onset: 71-81-8452YtnufigGtsmy nutritional; endocrine; and metabolic disorders (1 source)Overweight in adulthood with body mass index of 25 or more but less than 30; Translations: [Overweight]EpisodicOther screening for suspected conditions (not mental disorders or infectious disease) (20 sources)Electrocardiogram abnormal; Translations: [Nonspecific abnormal electrocardiogram [ECG] [EKG]]Onset: 11-30-2022 Resolved: 62-15-9938GyrhtufaQhhyv skin disorders (13 sources)Vesicular eczema of hands and/or feet; Translations: [Dyshidrosis [pompholyx]]EpisodicOther upper respiratory disease (17 sources)Seasonal allergic rhinitis; Translations: [Other seasonal allergic rhinitis]ChronicOther upper respiratory disease (3 sources)Other seasonal allergic rhinitisChronicOther upper respiratory disease (3 sources)Allergic rhinitis; Translations: [Allergic rhinitis, unspecified] Onset: 47-24-0911McjzdukPirks upper respiratory disease (2 sources)Seasonal allergy; Translations: [Other seasonal allergic rhinitis] ChronicOther upper respiratory infections (20 sources)Acute sinusitis, unspecified; Translations: [Acute pharyngitis] Onset: 09-08-2013 Resolved: 37-41-4541DiwrkuskPqyiycwdlf disorders (not diabetes) (4 sources)Gallstone acute pancreatitis; Translations: [Biliary acute pancreatitis without necrosis or infection]Onset: 693839-06-0032Scwtfkhl Residual codes; unclassified (1 source)Acquired absence of other specified parts of digestive tract; Translations: [Other acquired absenceof organ]46-35-0468YmdkrdbnKuynhnhmnjr; intervertebral disc disorders; other back problems (8 sources)Cervicalgia; Translations: [Low back pain]Onset: 47-02-2290Aqhmozhs Sprains and strains (6 sources)Neck sprain; Translations: [Neck sprain and strain]Onset: 01-09-2019 EpisodicUnclassified (3 sources)Other ventricular tachycardia; Translations: [Other ventricular tachycardia]Urinary tract infections (10 sources)Urinary tract infectious disease; Translations: [Urinary tract infection, site not specified]Onset: 01-01-2022 Resolved: 26-76-8047Lcpsflql Past or Other Problems Problem ClassificationProblemDateDocumented DateEpisodic/ChronicAbdominal pain (3 sources)Abdominal pain; Translations: [Unspecified abdominal pain]Onset: 06-81-1010PnlzvaaiJdnlgqhln infection; unspecified site (3 sources)Bacterial infectious disease; Translations: [Bacterial infection, unspecified, in conditions classified elsewhere and of unspecified site]Onset: 82-66-8866AmxqtjajPdwpsyfp; including migraine (6 sources)Idiopathic stabbing headache; 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]Onset: 01-09-2019 Resolved: 70-59-4227QsbespkcRpexqcxyrncik and screening for infectious disease (4 sources)Contact with and (suspected) exposure to other viral communicable diseases; Translations: [Contact with and (suspected) exposure to other viral communicable diseases Z20.828]Onset: 08-03-2021 Resolved: 32-74-3361FyadjywxPlzhkwbkoehw diseases of female pelvic organs (2 sources)Acute vaginitis; Translations: [Acute vaginitis]90-37-8686Gnyfgffh Malaise and fatigue (3 sources)Fatigue; Translations: [Other fatigue]Onset: 02-01-2022 Resolved: 79-85-2739NlhtasnnKvzsyghwunoqa mental health disorders (3 sources)Emotional state finding; Translations: [Other symptoms and signs involving emotional state] Resolved: 34-20-3345JdcdmfytVbkusj and vomiting (3 sources)Nausea and vomiting; Translations: [Nausea with vomiting, unspecified]Onset: 01-58-2281YdfsjkzyZwpns aftercare (1 source)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; Translations: [OTH 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 COACH CURRENT DRUG THERAPY]Onset: 53-74-6461AerhinizWtrnl connective tissue disease (1 source)Cramp and spasm; Translations: [CRAMP AND SPASM]Onset: 07-18-2022 EpisodicOther connective tissue disease (3 sources)Spasm; Translations: [Spasm of muscle]Onset: 76-49-8403WmfuipjbEeodd endocrine disorders (4 sources)Other specified endocrine disorders; Translations: [OTHER SPECIFIED ENDOCRINE DISORDERS]Onset: 47-94-5300DbtdrrxwRxvdi lower respiratory disease (3 sources)Dyspnea; Translations: [Shortness of breath] Resolved: 40-55-2790SiltelwjFirps nutritional; endocrine; and metabolic disorders (3 sources)Abnormal weight gain; Translations: [Abnormal weight gain]Onset: 35-00-3107ZwxasjlsCgjyx nutritional; endocrine; and metabolic disorders (3 sources)Overweight; Translations: [Overweight]Onset: 70-57-4276IagabasgVpihm nutritional; endocrine; and metabolic disorders (3 sources)Body mass index 25-29 - overweight; Translations: [Body mass index 28.0-28.9, adult]Onset: 09-77-7778FmgqpmnlAtver skin disorders (3 sources)Sebaceous cyst; Translations: [Sebaceous cyst]Onset: 02-25-2015 EpisodicOtitis media and related conditions (7 sources)Eustachian tube salpingitis; Translations: [Unspecified Eustachian salpingitis, right ear]Onset: 12-26-2017 Resolved: 35-92-9348MtoxpkfqIuxaxkzx codes; unclassified (15 sources)Postmenopausal state; Translations: [Asymptomatic menopausal state] Onset: 848325-12-7817CyslpwbfPiegnrcj codes; unclassified (6 sources)History of partial nephrectomy; Translations: [Acquired absence of kidney]Onset: 116003-53-8332JcsnxrfiFaywjrlexnpl (2 sources)Never smoked tobacco; Translations: [Never a smoker]Unclassified (9 sources)NSVT (nonsustained ventricular tachycardia); Translations: [NSVT (nonsustained ventricular tachycardia)]Unclassified (1 source)Contact with and (suspected) exposure to covid-19 Z20.822Unclassified (3 sources)General observation; Translations: [Observation following other accident]Onset: 78-58-1142Gbatz infection (1 source)COVID-19 Results Test NameValueInterpretationReference RangeFacilityAmbulatory Visit Summaryon 05-04-7454Fsxkoeeahw Visit SummaryAmbulatory Visit Summary JENNIFER ZAMORA :1970 Visit Date:06/18/2025 Ambulatory Visit Instructions Your Diagnosis Renal cell carcinoma Unspecified urethral stricture, female Your Care Team Attending Physician - Rosmery Bronson MD Primary Care Physician - PIPPA BRONSON, GRADY This Is Your Medications List Contact prescribing physician if questions or concerns aspirin (Aspirin Low Dose) aspirin (aspirin 81 mg Oral EC Tab) cholecalciferol-menaquinone (K2-D3 5000 125 mcg (5000 intl units)-90 mcg oral capsule) hydrochlorothiazide-losartan (hydrochlorothiazide-losartan 12.5 mg-50 mg Tab) metoprolol (Toprol XL 25 mg Tab-ER) metoprolol (metoprolol succinate 25 mg ER Tab) multivitamin (Super B Complex oral tablet) omega-3 polyunsaturated fatty acids (Winter-3 Fish Oil 1000 mg oral capsule) phentermine-topiramate (Qsymia 7.5 mg-46 mg oral capsule, extended release) zolpidem (zolpidem 5 mg Tab) Procedures Performed Laparoscopic partial nephrectomy (06/02/2025), Laparoscopic cholecystectomy (12/02/2024), Appendectomy, Cholecystectomy;, Hysterectomy, Tubal ligation. Discharge Vitals Temperature (Tympanic) 36.5 ???C Heart Rate (Peripheral) 68 Respiratory Rate 18 Blood Pressure 136/94 Height 67 in Height 169 cm Weight 164.906 lb Weight 74.8 kg BMI 26.19 What to do next You Need to Schedule the Following Appointments Follow Up with Audie MADERA, Rosmery Mckay, URL, URO When: Where: [address] [place] [address] [phone] You Need to Complete the Following Comprehensive Metabolic Panel, Blood, Routine collect, *Est. 09/17/25 +/- 21 day(s), Order for future visit, Lab Collect, Renal cell carcinoma, Print Label By Order Location CT Abdomen w/ + w/o Contrast, *Est. 09/17/25 +/- 21 day(s), Routine, Order for future visit, Transport Mode: Ambulatory, Reason: Other (please specify), Reason: Renal cell carcinoma, No, No, Renal cell carcinoma, pp_set_radiology_subspecialty, [place] - [place] XR Chest 2 Views, *Est. 09/17/25 +/- 21 day(s), Routine, Order for future visit, Transport Mode: Ambulatory, Reason: Cancer, No, Renal cell carcinoma, pp_set_radiology_subspecialty, [place] [facility] [place] Medications What How Much When Instructions Unchanged aspirin (aspirin 81 mg Oral EC Tab) By Mouth Every day Contact prescribing physician if questions or concerns Unchanged aspirin (Aspirin Low Dose) 81 Milligram By Mouth Every day Contact prescribing physician if questions or concerns Unchanged cholecalciferol-menaquinone (K2-D3 5000 125 mcg (5000 intl units)-90 mcg oral capsule) ByMouth Contact prescribing physician if questions or concerns Unchanged hydrochlorothiazide-losartan (hydrochlorothiazide-losartan 12.5 mg-50 mg Tab) 1 Tablets By Mouth Every day Contact prescribing physician if questions or concerns Unchanged metoprolol (metoprolol succinate 25 mg ER Tab) 1 Tablets By Mouth Every day Contact prescribing physician if questions or concerns Unchanged metoprolol (Toprol XL 25 mg Tab-ER) By Mouth Every day Contact prescribing physician if questions or concerns Unchanged multivitamin (Super B Complex oral tablet) 1 Tablets By Mouth Every day Contact prescribing physician if questions or concerns Unchanged omega-3 polyunsaturated fatty acids (Winter-3 Fish Oil 1000 mg oral capsule) By Mouth Contact prescribing physician if questions or concerns Unchanged phentermine-topiramate (Qsymia 7.5 mg-46 mg oral capsule, extended release) By Mouth Oncea day (in the morning) Contact prescribing physician if questions or concerns Unchanged zolpidem (zolpidem 5 mg Tab) Contact prescribing physician if questions or concerns Allergies No Known Medication Allergies Problems Ongoing - Any problem that you are currently receiving treatment for. Hypertension Recurrent UTI Renal cell carcinoma Renal mass, right Unspecified urethral stricture, female Patient Survey You may receive a survey via text or e-mail asking about your office visit. Please share your experience with us by completing your survey. We appreciate your feedback and thank you for choosing us for your care. Patient Portal You may access all of your results and other medical record information on our secure patient portal. If you are not signed up for this yet, please contact [email or web address] Management at [phone] to get signed up today. Language Information Language assistance services are available as needed. [facility]/Clinic Noteon [phone] Office/Clinic NoteUrology Office/Clinic Note Chief Complaint 2 wk f/u partial nephrectomy. HPI Staff 54 yr old female here for 2 week Post Op f/u -RT Partial Nephrectomy on 06/02/25 Dx: Renal Mass, Unspecified urethral stricture, female. BBSQ- 8 Pt. denies having incontinence Pt. denies having pain with urination Pt. denies having gross hematuria Pt. denies having abd pain Pt. denies having flank pain History of Present Illness Tests reviewed: reviewed UA, PVR, op note, path report I have reviewed the previous health record information and history for this patient from Dr. Bronson. I have reviewed and verified the staff [...] HPI. Physical Exam Vitals & Measurements T: 36.5 ???C(Tympanic) HR: 68(Peripheral) RR: 18 BP: 136/94 HT: 169 cm HT: 67 in WT: 164.906 lb WT: 74.8 kg BMI: 26.19 General Appearance: alert , no acute distress, well nourished, well developed female. Assessment/Plan 54 yo F here for f/u to robotic lap R partial nephrectomy 06/02/25, with newly dx RCC. PSH ~lap cholecystectomy (11/2024), hysterectomy and appendectomy, tummy tuck Baby Aspirin. Not on GLP-1. BBSQ 8 (8) 1. Renal cell carcinoma (C64.9: Malignant neoplasm of unspecified kidney, except renal pelvis) CT AP w con 11/30/24 [facility] - partially exophytic enhancing heterogenous mass in the RUP measuring 1.5x 1.4 x 1.5 cm. MRI abdomen 04/14/25 [facility] - findings concerning for right renal cell carcinoma, 1.7 x 1.6 x 1.6 cm. No invasion of the renal collecting system or major renal vasculature. -Right upper pole partially exophytic renal mass, 1 artery, 2 veins (2nd smaller vein posterior slightly inferior) S/p Robotic Laparoscopic assisted right partial nephrectomy 06/02/25 - pT1aNx Clear cell renal cellcarcinoma, G2, margins neg. Renal fxn 05/18/25- BUN 21, Cr 0.7, GFR 101 (prior to partial nephrectomy) 06/03/25 - BUN 18, Cr 0.7, GFR 101 UA shows trace-intact blood (not clinically significant). No gross hematuria. Denies any PO complications. Having regular BMs. The pathology report was reviewed with the patient in detail today, which confirms evidence of malignancy. Discussed grade and staging of cancer. Surveillance protocol discussed. Will continue to monitor with imaging. Pt prefers CT vs MRI due to claustrophobia/anxiety -F/u in 3 mos w/ CT Abd w/wo con, CXR, and CMP -Cont annual imaging x 5 years thereafter 2. Unspecified urethral stricture, female (N35.92: Unspecified urethral stricture, female) S/p cysto/UD 03/02/[address] Penn. No issues since. PVR 50 mL, emptying well. Follow-up With When Contact Information Audie MADERA, Rosmery Mckay, URL, URO [address] [place] [address]- [phone] Additional Instructions: 3 mos w/ CT Abd w/wo con, CXR, CMP Patient Education Kidney Cancer I, Katie Mccoy, personally scribed for Dr. Bronson on 06/18/2025 09:25:19. . Documentation recorded by the scribe, Katie Mccoy, accurately reflects the services(s) I performed and decisions made by me. Authenticated by Dr. Bronson on 06/18/2025 10:42:34. Problem List/Past Medical History Ongoing Hypertension Recurrent UTI Renal cell carcinoma Renal mass, right Unspecified urethral stricture, female Historical No qualifying data Procedure/Surgical History Laparoscopic partial nephrectomy (06/02/2025), Laparoscopic cholecystectomy (12/02/2024), Appendectomy, Cholecystectomy;, Hysterectomy, Tubal ligation. Medications aspirin 81 mg Oral EC Tab, Oral, Daily Aspirin Low Dose, 81 mg, Oral, Daily hydrochlorothiazide-losartan 12.5 mg-50 mg Tab, 1 tab(s), Oral, Daily K2-D3 5000 125 mcg (5000 intl units)-90 mcg oral capsule, Oral metoprolol succinate 25 mg ER Tab, 25 mg= 1 tab(s), Oral, Daily Winter-3 Fish Oil 1000 mg oral capsule, Oral Qsymia 7.5 mg-46 mg oral capsule, extended release, Oral, qAM Super B Complex oral tablet, 1 tab(s), Oral, Daily Toprol XL 25 mg Tab-ER, Oral, Daily zolpidem 5 mg Tab Allergies No Known Medication Allergies Social History Alcohol Never., 04/26/2025 Substance Abuse Never., 04/26/2025 Tobacco Never (less than 100 in lifetime) Tobacco Use:. Never Smokeless Tobacco Use:., 06/18/2025 Family History Diabetes clinic: Mother. High cholesterol: Father. Hypertension: Mother. Stroke: Mother. Lab Results Ambulatory Point of Care Results Bilirubin Urine Dipst (more content not included)...[facility] HospitalComment on above:Result Comment: Electronically Signed By: Rosmery Bronson MD\.br\Date and Time Signed: 06/18/25 10:42EDT\.br\Electronically Co-Signed By: Katie Mccoy\.br\Date and Time Co-Signed: 06/18/25 09:25 EDTSurgical Pathology Reporton [id number] Pathology Report[address] [place] [address]- Surgical Pathology Report Collected Date/Time: 06/02/2025 15:00 EDT Pathologist: Rafita MADERA PhD, Manny Iverson Received Date/Time: 06/03/2025 07:21 EDT Audie MADERA, Rosmery Bronson MD, Rosmery M. 07 Surgical Pathology Report - 06/09/2025 11:00 EDT - Auth (Verified) Final Diagnosis RIGHT RENAL MASS, EXCISION: - CLEAR-CELL RENAL CELL CARCINOMA, WHO/ISUP G2 (1.4 CM). - LIMITED IN KIDNEY. - SURGICAL MARGIN FREE OF TUMOR. (Electronic Signature) Manny Eller MD PhD 06/09/2025 11:00 Diagnosis Comment Tumor cells are positive for CD10, negative for CD117 and CK7, consistent with rendered diagnosis. TUMOR SUMMARY: KIDNEY: Partial right kidney Procedure : Partial nephrectomy Specimen Laterality: Right Tumor Site: Not specified Tumor Size: 1.4 cm Tumor Focality: Unifocal Histologic Type: Clear cell renal cell carcinoma Sarcomatoid Features: Not identified Rhabdoid Features: Not identified Histologic Grade (WHO / ISUP): G2 Tumor Necrosis: Not identified Tumor Extension: Tumor limited to kidney Margins: Renal resection margin and capsular surface uninvolved Distance: 0.1 cm from tumor Lymphovascular Invasion: Not identified Regional Lymph Nodes: NA (not submitted) Number of Lymph Nodes Examined: 0 Primary Tumor (pT): pT1a Regional Lymph Nodes (pN): pNX, Regional lymph nodes not submitted Distant Metastasis (pM): NA Pathologic Findings in Nonneoplastic Kidney: None identified Clinical Information renal mass Pre-Op Diagnosis: renal mass Procedure: robotic assisted right partial nephrectomy Post-Op Diagnosis: Renal mass, right Specimen(s) Received right renal mass Gross Description Received in formalin labeled with patient name, number, and right renal mass is a partial nephrectomy specimen with attached scant adipose tissue, measuring 3.5 x 2 x 1.8 cm. The renal portion is approximately 2.7 cm in greatest dimension. The renal parenchyma resection margin is inked green and the capsular surface is inked red. Cross-sectioning reveals approximately 1.4 Surgical Pathology Report Collected Date/Time: 06/02/2025 15:00 EDT Pathologist: Rafita MADERA PhD, Manny Iverson Received Date/Time: 06/03/2025 07:21 EDT Audie MADERA, Rosmery Bronson MD, Rosmery Mckay Gross Description cm of round light brown partially friable lesion at least 0.1 cm to the inked resection margin and capsular surface. The entire specimen is submitted in six cassettes. (YC) YLC:MCA Microscopic Description The use of one or more reagents in the above tests is regulated as an analyte specific reagent (ASR). The test or tests are ordered following initial H&E microscopic examination. The performance characteristics were determined by the [facility]. They have not been cleared or approved by the US Food and Drug Administration. The FDA has determined that such clearance or approval is not necessary. These tests are used for clinical purposes. They should not be regarded as investigational or for research. Appropriate positive and negative controls are performed and are acceptable. This report was transcribed using voice recognition technology and might contain unintended computerized track laying machine operator errors. Microscopic examination performed unless gross only specified. Quality was accessed and acceptable.NormalTrihealth Bethesda Butler HospitalComment on above:Performed By: #### [id number] #### [facility] [address] [place], [place] [address]Bsmgazowms - Chemistry and Chemistry - challengeOrdered By: Grady Das on 07-90-1843Bbrusajlv Ql (U)NegativeNEGKettering Health TroyGlucose (U) [Mass/Vol]NegativeNEGKettering Health TroyKetones Ql (U)NegativeNEGKettering Health TroypH (U)6.0 [pH]5.0-9.0UC Medical Centerpecific gravity (U) [Rel density] 1.0101.005-1.025Day[facility] Children'S HospitalUrobilinogen Qn (U)0.2 {Ciara'U}/dL0.2-1.0[facility] HospitalLaboratory - Specimen informationOrdered By: Grady Das on 90-38-0179Peonrkpqkk (U)CLEARCLEAR [facility]'S HospitalColor (U)LT. YELLOWYELLOWDayton Children'S HospitalLaboratory - UrinalysisOrdered By: Grady Das on 06-08-2025 Leukocyte esterase Test strip Ql (U)NegativeNEGKettering Health TroyMucus Ql (Urine sed)NONE SEENNONE [facility] Nitrite Ql (U)NegativeNEGKettering Health TroyProtein Ql (U) NegativeNEG/TRACEDayton Children'S HospitalNo Panel InformationOrdered By: Grady Das on 53-02-8211Lwqso BacteriaNONE SEEN #/HPFNONE [facility] HospitalUrine Occult BloodSMALLAbnormalNEGATIVEDayton Children'S HospitalUrine Other CastsNONE SEEN #/LPFNONE SEENDayton Children'S HospitalUrine Other CrystalsNone Seen #/HPFNone [facility] CenterUrine RBC0-2 #/HPF0-2FRiverview Health InstituteUrine Squamous Epithelial CellsNONE SEEN #/LPFNONE/RAREDayton Children'S HospitalUrine WBC0-2 #/HPFAbnormalNONE SEENDayton Children'S HospitalUrine Cultureon [id number] identified Cx Nom (U)No Growth 2 Days PERFORMED BY: [facility] [address] [place] [address] PATHOLOGIST [employer] MANAGER KELLEY KOWALSKI M.D.NormalHca Florida Mercy Hospital Physician GroupComment on above: Performed By: #### CUU #### [facility] [address] [place] [address] USAUrine cultureOrdered By: Grady Das on 06-08-2025 Bacteria identified Cx Nom (U)No Growth 2 DaysDayton Children'S Hospital BMPon 70-11-2687Urflq gap [Moles/Vol]9 mmol/LNormal6-16[facility] Butler HospitalComment on above:Performed By: #### [id number] #### [facility] [address] [place], [place] [address]DUD/Creat Ratio26 No EisqhTvpb11-85FdyelzTrihealth Bethesda Butler Hospital Comment on above:Performed By: #### [id number] #### [facility] [address] [place], [place] [address]Ccpleby [Mass/Vol]8.6 mg/dLLow8.9-11.1FCincinnati VA Medical CenterComment on above:Performed By: #### [id number] #### [facility] [address] [place], [place] [address]Ckhdjljw [Moles/Vol]103 mmol/THlbjmm394-108MkfkabTrihealth Bethesda Butler HospitalComment on above:Performed By: #### [id number] #### [facility] [address] [place], [place] [address]IF5 [Moles/Vol]27 mmol/RLlgkbl56-88CieribTrihealth Bethesda Butler Hospital Comment on above:Performed By: #### [id number] #### [facility] [address] [place], [place] [address]Qeiplzlyoo [Mass/Vol]0.7 mg/dLNormal0.5-1.3FCincinnati VA Medical CenterComment on above:Performed By: #### [id number] #### [facility] [address] [place], [place] [address]Ltapnma [Mass/Vol]100 mg/fRBflyfm30-475QkcuhyTrihealth Bethesda Butler HospitalComment on above:Performed By: #### [id number] #### [facility] [address] [place] [address]Yzqyydlkn [Moles/Vol]4.2 mmol/LNormal3.5-5.3FCincinnati VA Medical CenterComment on above:Performed By: #### [id number] #### [facility] [address] [place] [address]Tshmhc [Moles/Vol]135 mmol/IFapwqv656-250CmxwpqTrihealth Bethesda Butler HospitalComment on above:Performed By: #### [id number] #### [facility] [address] [place] [address]Itwq nitrogen [Mass/Vol]18 mg/dLNormal5-21[facility] HospitalComment on above:Performed By: #### [id number] #### [facility] [address] [place], [place] [address]VKS w/ Auto Diffon 45-66-8667Ikuaymsw Absolute0.0 E9/LNormal 0.0-0.2FCincinnati VA Medical CenterComment on above:Performed By: #### [id number] #### [facility] [address] [place], [place] [address]Yattjzylk/100 WBC (Bld)0.1 %Normal0.0-2.0[facility] HospitalComment on above:Performed By: #### [id number] #### [facility] [address], [place] [address]Qbw Absolute0.0 E9/LNormal0.0-0.5FCincinnati VA Medical Center Comment on above:Performed By: #### [id number] #### [facility] [address] [place] [address]Aazlgjwzxwj/100 WBC (Bld)0.0 %Normal0.0-8.0[facility] HospitalComment on above:Performed By: #### [id number] #### [facility] [address] [place] [address]Zflaxbhkqbk distribution width (RBC) [Ratio]12.9 %Normal 10.9-14.2FCincinnati VA Medical CenterComment on above:Performed By: #### [id number] #### [facility] [address] [place] [address]Lzmoampdbb (Bld) [Volume fraction]37.2 %Adcumo28.0-46.0[facility] Butler HospitalComment on above:Performed By: #### [id number] #### [facility] [address] [place] [address]Yhdgkomuny (Bld) [Mass/Vol]13.0 g/rVMwuvlw61.0-16.0[facility] HospitalComment on above:Performed By: #### [id number] #### [facility] [address] [place] [address]Mbwdd Absolute1.1 E9/LNormal1.0-4.0[facility] Comment on above:Performed By: #### [id number] #### [facility] [address] [place] [address]Mbtjtbfudpu/100 WBC (Bld)11.8 %Low14.0-50.0[facility] Butler HospitalComment on above:Performed By: #### [id number] #### [facility] [address] [place] [address]GGC (RBC) [Entitic mass]31.8 vyFoqyra92.0-34.0[facility] HospitalComment on above:Performed By: #### [id number] #### [facility] [address], [place] [address]MMRS (RBC) [Mass/Vol]35.0 g/wUYigsqy75.4-36.0[facility] HospitalComment on above:Performed By: #### [id number] #### [facility] [address], [place] [address]TUH (RBC) [Entitic vol]90.8 mACdzyif67.0-100.0[facility] HospitalComment on above:Performed By: #### [id number] #### [facility] [address], [place] [address]Mzbf Absolute0.6 E9/LNormal0.2-1.0[facility] Comment on above:Performed By: #### [id number] #### [facility] [address], [place] [address]Ntmwcpani/100 WBC (Bld)6.9 %Normal4.0-14.0[facility] Butler HospitalComment on above:Performed By: #### [id number] #### [facility] [address], [place] [address]Bvwglv Absolute7.4 E9/LNormal2.0-7.5FCincinnati VA Medical Center Comment on above:Performed By: #### [id number] #### [facility] [address], [place] [address]Srzwaf Auto81.2 %High36.0-75.0[facility] Comment on above:Performed By: #### [id number] #### [facility] [address], [place] [address]Nknodwww463.0 E9/CKasbra890.0-500.0[facility] Comment on above:Performed By: #### [id number] #### [facility] [address], [place] [address]Odgwtpkf mean volume (Bld) [Entitic vol]7.8 fLNormal6.4-10.8 [facility] HospitalComment on above:Performed By: #### [id number] #### [facility] [address], [place] [address]JQZ1.1 E12/LLow4.3-5.9[facility] Butler HospitalComment on above:Performed By: #### [id number] #### [facility] [address], [place] [address]BLY8.1 E9/LNormal4.0-11.0[facility] Butler HospitalComment on above:Performed By: #### [id number] #### [facility] [address] [place], [place] [address]Dcaniufkk Note-Nursingon 74-89-1247Mmrhsbbdf Note-Nursing Discharge Note-Nursing JENNIFER ZAMORA :1970 Visit [...] care physician. This Is Your Medications List acetaminophen-hydrocodone ([place] 325 mg-5 mg oral tablet) aspirin (Aspirin Low Dose) cholecalciferol-menaquinone (K2-D3 5000 125 mcg (5000 intl units)-90 mcg oral capsule) hydrochlorothiazide-losartan (hydrochlorothiazide-losartan 12.5 mg-50 mg Tab) metoprolol (metoprolol succinate 25 mg ER Tab) multivitamin (Super B Complex oral tablet) omega-3 polyunsaturated fatty acids (Winter-3 Fish Oil 1000 mg oral capsule) zolpidem [...] MADERA, Rosmery Mckay Where: [facility] [address], [address] [place] [address]- New Follow Up Appointments after Discharge Follow Up with GRADY DAS When: 06/08/2025 08:30 AM EDT Where: [address] [facility] [facility], [place] [address]- Business (1) Follow Up with Rosmery Bronson When: Comments: Office to schedule your follow up in 2 weeks for pathology review and postop check Where: [address], [place] [address] [facility] [address] [place] [phone] Business (1) Medications What How Much When Why Instructions Next Dose New acetaminophen-hydrocodone ([place] 325 mg-5 mg oral tablet) 2 Tablets By Mouth Every 4 hours as needed for as needed for pain Acute post-operative pain Renal mass, right Duration: 3 Days Take 1-2 tabs every 4 hours as needed for moderate to severe pain. Not to exceed 8 tablets/ day Pickup at [facility]/pharmacy #[id number] 06/03/25 4:20pm Unchanged aspirin (Aspirin Low Dose) 81 Milligram By Mouth Every day Resume Unchanged cholecalciferol-menaquinone (K2-D3 5000 125 mcg (5000 intl units)-90 mcg oral capsule) ByMouth Resume Unchanged hydrochlorothiazide-losartan (hydrochlorothiazide-losartan 12.5 mg-50 mg Tab) 1 Tablets By Mouth Every day Resume Unchanged metoprolol (metoprolol succinate 25 mg ER Tab) 1 Tablets By Mouth Every day Resume Unchanged multivitamin (Super B Complex oral tablet) 1 Tablets By Mouth Every day Resume Unchanged omega-3 polyunsaturated fatty acids (Winter-3 Fish Oil 1000 mg oral capsule) By Mouth Resume Unchanged zolpidem (zolpidem 5 mg Tab) Resume Pharmacy Information [facility]/pharmacy #[id number]: [address], [place] [phone] Test Results CBC BMP WBC: 9.1 E9/L [...] to care for y (more content not included)...[facility] HospitalInpatient Clinical Summaryon [id number] Clinical SummaryInpatient Clinical Summary [address] [address] Clinical Summary Person Information: Name: JENNIFER ZAMORA Age: 54 Years : 1970 Sex: Female PCP: GRADY DAS DO Marital Status: Race: White Ethnicity: Non- or Language: Tanzanian Visit Id: Visit Reason: RENAL MASS Speciality: Acuity: Enc Type: Outpatient in a Bed Med Service: Surgery Arrival: 06/02/2025 07:30:02 Discharge: Dispo Type: Address: [address] [place] [id number] Provider Notes: Patient: JENNIFER ZAMORA Age: 54 years Sex: Female : 1970 Associated Diagnoses: None Author: Audie MADERA, Rosmery Mckay Results Review General results Today's results 06/03/2025 6:03 EDT WBC 9.1 E9/L RBC 4.1 E12/L LOW HGB 13.0 gm/dL Hct 37.2 % MCV 90.8 fL MCH 31.8 pg MCHC 35.0 gm/dL RDW 12.9 % Platelet 347.0 E9/L MPV 7.8 fL Neutro Auto 81.2 % HI Lymph Auto 11.8 % LOW [place] Auto 6.9 % Eos Auto 0.0 % Basophil Auto 0.1 % Neutro Absolute 7.4 E9/L Lymph Absolute 1.1 E9/L [place] Absolute 0.6 E9/L Eos Absolute 0.0 E9/L [...] vitals and blood pressure remained stable and w ell controlled. Her pain was controlled on PO pain meds, she was tolerating PO intake, ambulating safely and voided after maldonado removal. Her FAUSTO drain output was minimal and removed prior to dischargehome. She will follow up in 2 weeks [...] Immunizations Documented This Visit Final Med List: acetaminophen-hydrocodone ([place] 325 mg-5 mg oral tablet) 2 Tablets By Mouth every 4 hours as needed as needed for pain for 3 Days. Take 1-2 tabs every 4 hours as needed for moderate to severe pain. Not to exceed 8 tablets/day. Refills: 0. aspirin (Aspirin Low Dose) 81 Milligram By Mouth every day. cholecalciferol-menaquinone (K2-D3 5000 125 mcg (5000 intl units)-90 mcg oral capsule) By Mouth. hydrochlorothiazide-losartan (hydrochlorothiazide-losartan 12.5 mg-50 mg Tab) 1 Tablets By Mouth every day. metoprolol (metoprolol succinate 25 mg ER Tab) 1 Tab (more content not included)...[facility] HospitalInpatient Patient Summaryon [id number] Patient SummaryInpatient Patient Summary [place] [address] Patient Discharge Instructions PERSON INFORMATION Name: JENNIFER ZAMORA Date of : 1970 Current Date: 06/03/2025 13:32:15 PHYSICIANS Admitting Physician: Rosmery Bronson MD Primary Care Physician: GRADY DAS DO PCP [...] Follow up: With: Address: When: GRADY DAS [address] [place], [place] [phone] Business (1) 06/08/2025 8:30 AM With: Address: When: Rosmery Audie [address] [place] [address], [address] [phone] Business (1) Comments: Office to schedule your follow up in 2 weeks for pathology review and postop check In the event that this physician does not participate in your insurance network, please consult with your insurance company to find a nearby participating provider. Type Location Start [facility] Office Visit [facility] 06/18/2025 8:45 AM 06/18/2025 9:00 AM Confirmed Comment: EMILY Morales LIBBY L, have received the attached patient education materials/instructions and have verbalized understanding: Patient Signature Date Clinican/Nurse Signature Date HERE ARE THE MEDICATION CHANGES THAT OCCURRED DURING YOUR HOSPITAL STAY New Medications [id number], [address] [place], [place] [phone], [phone] acetaminophen-hydrocodone ([place] 325 mg-5 mg oral tablet) 2 Tablets By Mouth every 4 hours as needed as needed for pain for 3 Days. Take 1-2 tabs every 4 hours as needed for moderate to severe pain. Not to exceed 8 tablets/day. Refills: 0. Last Dose: Next Dose: Medications to Continue with No Changes Other Medications aspirin (Aspirin Low Dose) 81 Milligram By Mouth every day. Last Dose: Next Dose: cholecalciferol-menaquinone (K2-D3 5000 125 mcg (5000 intl units)-90 mcg oral capsule) By Mouth. Last Dose: Next Dose: hydrochlorothiazide-losartan (hydrochlorothiazide-losartan 12.5 mg-50 mg Tab) 1 Tablets By Mouth every day. Last Dose: Next Dose: metoprolol (metoprolol succinate 25 mg ER Tab) 1 Tablets By Mouth every day. Last Dose: Next Dose: multivitamin (Super B Complex oral tablet) 1 Tablets By Mouth every day. Last Dose: Next Dose: omega-3 polyunsaturated fatty acids (Winter-3 Fish Oil 1000 mg oral capsule) By Mouth. Last Dose: Next Dose: zolpidem (zolpidem 5 mg Tab) Last Dose: Next Dose: Comment: MEDICATION LIST PROVIDED FOR YOU IS A LIST OF YOUR CURRENT MEDICATIONS. PLEASE CARRY THIS WITH YOU AT ALL TIMES. acetaminophen-hydrocodone ([place] 325 mg-5 mg oral tablet) 2 Tablets By Mouth every 4 hours as needed as needed for pain for 3 Days. Take 1-2 tabs every 4 hours as needed for moderate to severe pain. Not to exceed 8 tablets/day. Refills: 0. aspirin (Aspirin Low Dose) 81 Milligram By Mouth every day. cholecalciferol-menaquinone (K2-D3 5000 125 mcg (5000 intl units)-90 mcg oral capsule) By Mouth. hydrochlorothiazide-losartan (hydrochlorothiazide-losartan 12.5 mg-50 mg Tab) 1 Tablets By Mouth every day. metoprolol (metoprolol succinate 25 mg ER Tab) 1 Tablets By Mouth every day. multivitamin (Super B Complex oral tablet) 1 Tablets By Mouth every day. omega-3 polyunsaturated fatty acids (Winter-3 Fish Oil 1000 mg oral capsule) By Mouth. zolpidem (zolpidem 5 mg Tab) Pharmacy Information: Comment: (more content not included)...[facility] HospitalInterdisciplinary Note - Case Manageron [id number] Note - Hydraulic Chair Assembler Interdisciplinary Note - Hydraulic Chair Assembler Patient is awake and alert in bed, previously rounded with Urology. Patient is up in chair, feelingbetter. States her Dr will call to check on her this afternoon, and plan to DC home later today. Patient is independent at home with spouse and he will transport at [place]. Declines any concerns or DC needs. CRM following. . PCP verified and insurance information reviewed and DME discussed. Contact information provided and white board updated.[facility] HospitalComment on above:Result Comment: Electronically Signed By: Cathleen FLORENTINO, Yaneth\.alan\Date and Time Signed: 06/03/25 09:39 EDTMain OR Intraoperative Recordon [id number] OR Intraoperative RecordMain OR Intraoperative Record IntraOp Document Type FT Summary Primary Physician: Rosmery Bronson MD Finalized Date/Time: 06/03/25 09:35:39 Pt. Name: JENNIFER ZAMORA.O.B./Sex: 1970 Female Med Rec #: [id number] Physician: Rosmery Bronson MD Financial #: [id number] Pt. Type: O Room/Bed: N317/01 Admit/Disch: 06/02/25 07:30:02 - Institution: Case Times [...] AT 1457. SURGEON AT [employer] FROM [id number].MISHEL SUMMERS. CLAMP TIME FROM [id number], 24 MINS AND 25 SECONDS.MISHEL SUMMERS. Case Attendance FT Entry 1 Entry 2 Entry 3 Case Attendee Mariajose [facility], Dawson Bronson MD, Shalini Balderas Role Performed Anesthesiologist Surgeon - Primary Structural Shop Helper - Primary Cash Application Clerk Time In 06/02/25 09:43:00 06/02/25 09:43:00 06/02/25 09:43:00 Time Out 06/02/25 14:21:00 06/02/25 15:25:00 06/02/25 15:25:00 Procedure NEPHRECTOMY PARTIAL, NEPHRECTOMY PARTIAL, NEPHRECTOMY PARTIAL, ROBOT ASSISTED(Right) ROBOT ASSISTED(Right) ROBOT ASSISTED(Right) Comments IS SUPERVISING OUT FOR LUNCH 1240- Last Modified By: Shalini Tarango Kelsie E Burgderfer, Kelsie E 06/02/25 15:31:27 06/02/25 15:31:27 06/02/25 15:31:27 Entry 4 Entry 5 Entry 6 Case Attendee Moy DIRECTOR OF PSYCHOLOGY, Porsha Singh DIRECTOR OF PSYCHOLOGY, Fang Denny RN, Connie E Role Performed Scrub - Primary DIRECTOR OF PSYCHOLOGY/SA Structural Shop Helper - Relief Time In 06/02/25 09:43:00 06/02/25 [...] 8 Entry 9 Case Attendee Francisco DRISCOLL, Veronika Baxter DNP, COURT MONITOR, Queen Riana Role Performed DIRECTOR OF PSYCHOLOGY/SA Scrub - Relief COURT MONITOR Time In 06/02/25 12:49:00 06/02/25 12:50:00 06/02/25 14:20:00 Time Out 06/02/25 14:04:00 06/02/25 13:51:00 06/02/25 14:57:00 Procedure NEPHRECTOMY PARTIAL, NEPHRECTOMY PARTIAL, NEPHRECTOMY PARTIAL, ROBOT ASSISTED(Right) ROBOT ASSISTED(Right) ROBOT ASSISTED(Right) Comments LUNCH RELIEF FOR IS SUPERVISING ZHENG,DIRECTOR OF PSYCHOLOGY/SA Last Modified By: Shalini Tarango Kelsie E Burgderfer, Kelsie E 06/02/25 15:31:27 06/02/25 15:31:27 06/02/25 15:31:27 Entry 10 Case Attendee Yoselin Jacobs CRNA Role Performed COURT MONITOR Time In 06/02/25 14:53:00 Time Out 06/02/25 15:25:00 Procedure NEPHRECTOMY PARTIAL, ROBOT ASSISTED(Right) Comments IS SUPERVISING Last Modified By: Shalini Tarango 06/02/25 15:31:27 General Comments: TRENA ANDINO,[facility], IN ATTENDANCE.MISHEL SUMMERS. Perioperative Protocols FT Pre-Care Text: Implements protective [...] Primary Surgeon Audie Velasco (more content not included)...Normal [facility] HospitaleGFRon [id number] mL/min/1.73 x2Qivklc>=59 [facility] HospitalComment on above:Performed By: #### [id number] ####[facility] [address] [place] [address] ABO/Rhon [id number]/RhPositiveInvalid Interpretation CodeTrihealth Bethesda Butler HospitalComment on above:Performed By: #### [id number] #### [facility] [address] [place], [place] [address]CQA/Rh History Checkon [id number]/Rh History CheckVerified Hx Blood TypeNormalTrihealth Bethesda Butler HospitalComment on above:Performed By: #### [id number] #### [facility] [address] [place], [place] [address]RUPHfg [id number] Gel InterpNegativeNormalTrihealth Bethesda Butler HospitalComment on above:Performed By: #### [id number] #### [facility] [address] [place] [address]Egojl Bank ID#on [id number]#[id number] Interpretation CodeTrihealth Bethesda Butler HospitalComment on above:Performed By: #### [id number] #### [facility] [address] [place] [address]Cqonnctdb Patient Summaryon [id number] Patient Summary Inpatient Patient Summary [address] [address] [facility] Clinical Discharge Instructions PERSON INFORMATION Name: JENNIFER ZAMORA PHYSICIANS Admitting Physician: Rosmery Bronson MD Attending Physician: Rosmery Bronson MD PCP: GRADY DAS DO Discharge Diagnosis: Comment: PATIENT EDUCATION INFORMATION Instructions: Minimally Invasive Nephrectomy, Care After Medication Leaflets: Follow up: With: Address: When: Rosmery Bronson [address] [place] [address] [phone] Business (1) Comments: Office to schedule your follow up in 2 weeks for pathology review and postop check MEDICATION LIST Medications to Continue with No Changes Other Medications aspirin (Aspirin Low Dose) 81 Milligram By Mouth every day. cholecalciferol-menaquinone (K2-D3 5000 125 mcg (5000 intl units)-90 mcg oral capsule) By Mouth. hydrochlorothiazide-losartan (hydrochlorothiazide-losartan 12.5 mg-50 mg Tab) 1 Tablets By Mouth every day. metoprolol (metoprolol succinate 25 mg ER Tab) 1 Tablets By Mouth every day. multivitamin (Super B Complex oral tablet) 1 Tablets By Mouth every day. omega-3 polyunsaturated fatty acids (Winter-3 Fish Oil 1000 mg oral capsule) By Mouth. zolpidem (zolpidem 5 mg Tab) Comment:[facility] HospitalMain OR Intraoperative Recordon [id number] OR Intraoperative RecordMain OR Intraoperative Record IntraOp Document Type FT Summary Primary Physician: Rosmery Bronson MD Finalized Date/Time: 06/02/25 15:32:14 Pt. Name: JENNIFER ZAMORA /Sex: 1970 Female Med Rec #: [id number] Physician: Rosmery Bronson MD Financial #: [id number] Pt. Type: A Room/Bed: [facility] Admit/Disch: 06/02/25 07:30:02 - Institution: Case Times [...] AT 1457. SURGEON AT [employer] FROM 2829-1440.MISHEL SUMMERS. CLAMP TIME FROM [id number], 24 MINS AND 25 SECONDS.MISHEL SUMMERS. Case Attendance FT Entry 1 Entry 2 Entry 3 Case Attendee Dawson Salinas MD, Shalini Balderas Role Performed Anesthesiologist Surgeon - Primary Structural Shop Helper - Primary Cash Application Clerk Time In 06/02/25 09:43:00 06/02/25 09:43:00 06/02/25 09:43:00 Time Out 06/02/25 14:21:00 06/02/25 15:25:00 06/02/25 15:25:00 Procedure NEPHRECTOMY PARTIAL, NEPHRECTOMY PARTIAL, NEPHRECTOMY PARTIAL, ROBOT ASSISTED(Right) ROBOT ASSISTED(Right) ROBOT ASSISTED(Right) Comments IS SUPERVISING OUT FOR LUNCH 1240- Last Modified By: Shalini Tarango Kelsie E Burgderfer, Shalini E 06/02/25 15:31:27 06/02/25 15:31:27 06/02/25 15:31:27 Entry 4 Entry 5 Entry 6 Case Attendee Moy DRISCOLL, Porsha Singh CST, Fang Denny RN, Connie E Role Performed Scrub - Primary DIRECTOR OF PSYCHOLOGY/SA Structural Shop Helper - Relief Time In 06/02/25 09:43:00 06/02/25 [...] Francisco DRISCOLL, Grady Bailey, Veronika Hensley DNP, COURT MONITOR, Queen Riana Role Performed DIRECTOR OF PSYCHOLOGY/SA Scrub - Relief COURT MONITOR Time In 06/02/25 12:49:00 06/02/25 12:50:00 06/02/25 14:20:00 Time Out 06/02/25 14:04:00 06/02/25 13:51:00 06/02/25 14:57:00 Procedure NEPHRECTOMY PARTIAL, NEPHRECTOMY PARTIAL, NEPHRECTOMY PARTIAL, ROBOT ASSISTED(Right) ROBOT ASSISTED(Right) ROBOT ASSISTED(Right) Comments LUNCH RELIEF FOR IS SUPERVISING ZHENG,DIRECTOR OF PSYCHOLOGY/SA Last Modified By: Shalini Tarango Kelsie E Burgderfer, Kelsie E 06/02/25 15:31:27 06/02/25 15:31:27 06/02/25 15:31:27 Entry 10 Case Attendee Reynaldo DUONG, Yoselin Call Role Performed COURT MONITOR Time In 06/02/25 14:53:00 Time Out 06/02/25 15:25:00 Procedure NEPHRECTOMY PARTIAL, ROBOT ASSISTED(Right) Comments IS SUPERVISING Last Modified By: Shalini Tarango 06/02/25 15:31:27 General Comments: TRENA ANDINO,[facility], IN ATTENDANCE.MISHEL SUMMERS. Perioperative Protocols FT Pre-Care Text: Implements protective [...] Primary Surgeon Audie Velasco (more content not included)...Normal [facility] HospitalMain OR PACU I Recordon [id number] OR PACU I RecordMain OR PACU I Record PACU Phase I Document Type FT Summary Primary Physician: Rosmery Bronson MD Finalized Date/Time: 06/02/25 16:35:36 Pt. Name: JENNIFER ZAMORA D.O.B./Sex: 1970 Female Med Rec #: [id number] Physician: Rosmery Bronson MD Financial #: [id number] Pt. Type: O Room/Bed: [facility]/01 Admit/Disch: 06/02/25 07:30:02 - Institution: Case Times [...] individualized perioperative plan of care The patient's rightto privacy is maintained The patient's value system, [...] with or improved from baseline levels established preoperativelyThe patient's cardiovascular status is consistent with or improved from baseline levels established preoperatively The patient's cardiovascular status is consistent with or improved from baseline levels established preoperatively The patient demonstrates and/or reports adequate pain control throughout the perioperative period The patient received appropriate medication(s), safely administered during the perioperativeperiod Acuity Level PACU I FT Entry 1 Start Time 06/02/25 15:28:00 Stop Time 06/02/25 16:00:00 Acuity Level Acuity Level I Last Modified By: Mable Obregon RN 06/02/25 16:35:32 Finalized By: Mable Obregon RN Document Signatures Signed By: Mable Obregon RN 06/02/25 16:35NoWilson HealthMain OR Preoperative Recordon [id number] OR Preoperative RecordMain OR Preoperative Record PreOp Document Type FT Summary Primary Physician: Rosmery Bronson MD Finalized Date/Time: 06/02/25 10:33:51 Pt. Name: JENNIFER ZAMORA /Sex: 1970 Female Med Rec #: [id number] Physician: Rosmery Bronson MD Financial #: [id number] Pt. Type: A Room/Bed: [place] [address] Admit/Disch: 06/02/25 07:30:02 - Institution: Case Times [...] Document Signatures Signed By: Shalini Tarango 06/02/25 10:33NoWilson HealthOperative Reporton [id number] ReportOperative Report Patient: JENNIFER ZAMORA Age: 54 years Sex: Female : 1970 Associated Diagnoses: None Author: Rosmery Bronson MD Procedure Procedure Date: 06/02/2025. Confirmed: patient, procedure, side, site, safety procedures followed. Performed by: Rosmery Bronson MD, anesthesiologist ([facility]). Type of procedure: Robotic Laparascopic assisted right [...] given preoperatively. The patient was placed in supineposition with flexion of the bed, sequential compression [...] line along lateral rectus. 5 mm subxiphoid clinical physician assistant port for liver retraction and a 12 mm air seal clinical physician assistant port superior to the umbilicus in [...] medially. The liver was reflected superiorly. Adhesions underthe liver due to prior cholecystectomy. Liver retractor placed. The right gonadal vein was identified coursing to the IVC. This was dissected away from the kidney and preserved. The ureter was identified. The retroperitoneal space posterior to the kidney was developed. I then completed a careful hilar dissection, noting a single artery and 2 veins. I made an incisionon the Gerota's fascia, which is noted to [...] correct. Floseal was placed on the renal closure.3-0 vlok was used to close Gerota's fascia over kidney. A FAUSTO drain was placed via our lower most lateral port. This was secured at the skin level with a nylon stitch. The robot was undocke (more content not included)...Normal [facility] HospitalComment on above:Result Comment: Electronically Signed By: Audie MADERA, Rosmery Mckay\.alan\Date and Time Signed: 06/02/25 15:55EDT Outpatient Surgery Discharge Instructionon [id number] Surgery Discharge InstructionOutpatient Surgery Discharge Instruction [place] [id number] Patient Discharge Instructions PERSON INFORMATION Name: JENNIFER [...] ZAMORA, have received the attached patient education materials/instructions and have verbalized understanding: May we do a follow up call? Yes No I was present when discharge instructions were given Patient Signature Date Clinican/Nurse Signature Date Follow up: With: Address: When: Rosmery Bronson [address] [facility], [place] [address], [address] [address] [phone] Business (1) Comments: Office to schedule your follow up in 2 weeks for pathology review and postop check Pharmacy Information: You may receive a survey from [employer] asking you to rate your care experience. Your feedback is important and will help us understand what we do well and how we can improve the quality of care we provide to you, your loved ones and our community. It???s an honor to serve you. Thank you for choosing [facility] HERE ARE THE MEDICATION CHANGES THAT OCCURRED DURING YOUR HOSPITAL STAY Medications to Continue with No Changes Other Medications aspirin (Aspirin Low Dose) 81 Milligram By Mouth every day. cholecalciferol-menaquinone (K2-D3 5000 125 mcg (5000 intl units)-90 mcg oral capsule) By Mouth. hydrochlorothiazide-losartan (hydrochlorothiazide-losartan 12.5 mg-50 mg Tab) 1 Tablets By Mouth every day. metoprolol (metoprolol succinate 25 mg ER Tab) 1 Tablets By Mouth every day. multivitamin (Super B Complex oral tablet) 1 Tablets By Mouth every day. omega-3 polyunsaturated fatty acids (Winter-3 Fish Oil 1000 mg oral capsule) By [...] these instructions at home: Medicines ??? Take erpd-pcb-saxyaxr and prescription medicines only as told by your health care provider. ??? Avoid using NSAIDs regularly over a long period of time. These include aspirin and ibuprofen. Doing so may damage your remaining kidney. -Tylenol 650-1000 mg every 6 hours as needed for pain. [place] for severe uncontrolled pain. These have 325 [...] keep your urine pale yellow. ? Take kaic-omb-rojxqht or prescription medicines - Colace/Senna ? Eat [...] and water are not available, use hand responder. ? Change your dressing as told by your health care provider- daily and as needed to keep dry, and until incisio (more content not included)...NormalTrihealth Bethesda Butler HospitalUA with Cult Rflxon 37-08-2539Uavid (U)Light-YellowNormalYellow [facility] HospitalComment on above:Result Comment: Microscopic readings are only performed on those samples that meet specific criteria set forth by [facility].Performed By: #### [id number] #### [facility] [address] [place], [place] [address]Elikwse (U) [Mass/Vol]NegativeNormalNegativeTrihealth Bethesda Butler HospitalComment on above:Performed By: #### [id number] #### [facility] [address] [place], [place] [address]Sihfvoh Ql (U)NegativeNormalNegativeTrihealth [facility] Comment on above:Performed By: #### [id number] #### [facility] [address] [place], [place] [address]QB BloodNegativeNormalNegativeTrihealth [facility] Hospital Comment on above:Performed By: #### [id number] #### [facility] [address] [place], [place] [address]DX ClarityClearNormalClearTrihealth Bethesda Butler HospitalComment on above:Performed By: #### [id number] #### [facility] [address] [place], [place] [address]TN Leuk EstNegativeNoWilson Memorial Hospital Comment on above:Performed By: #### [id number] #### [facility] [address] [place] [address]IK NitriteNegativeNormalGood Samaritan Hospital Comment on above:Performed By: #### [id number] #### [facility] [address] [place], [place] [address]NX pH7.0Invalid Interpretation Code5.0-9.0[facility] HospitalComment on above:Performed By: #### [id number] #### [facility] [address] [place] [address]GS ProteinNegativeNoWilson Memorial Hospital Comment on above:Performed By: #### [id number] #### [facility] [address] [place], [place] [address]NX Spec Grav1.013Invalid Interpretation Code1.005-1.030[facility] HospitalComment on above:Performed By: #### [id number] #### [facility] [address] [place], [place] [address]SM UrobilinogenNegativeNormalNegWVUMedicine Harrison Community HospitalComment on above:Performed By: #### [id number] #### [facility] [address] [place], [place] [address]Betumqzmigmw (U) [Mass/Vol]NegativeNormalNegWVUMedicine Harrison Community HospitalComment on above:Performed By: #### [id number] #### [facility] [address] [place], [place] [address]UO Spec DescFoleyNormHolzer HospitalComment on above:Performed By: #### [id number] #### [facility] [address] [place], [place] [address]IDUef 14-78-6893Fwsyt gap [Moles/Vol]10 mmol/LNormal6-16[facility] HospitalComment on above:Performed By: #### [id number] #### [facility] [address] [place], [place] [address]TWC/Creat Ratio30 No RbjfyPmku93-23YgezggTrihealth Bethesda Butler Hospital Comment on above:Performed By: #### [id number] #### [facility] [address] [place], [place] [address]Tzqwnfq [Mass/Vol]9.8 mg/dLNormal8.9-11.1FCincinnati VA Medical CenterComment on above:Performed By: #### [id number] #### [facility] [address] [place] [address], [place] [address]Hkfphinw [Moles/Vol]100 mmol/XQtm314-798NhwdtlTrihealth Bethesda Butler HospitalComment on above:Performed By: #### [id number] #### [facility] [address] [place], [place] [address]JT9 [Moles/Vol]32 mmol/SYbci99-41VeehpmTrihealth Bethesda Butler Hospital Comment on above:Performed By: #### [id number] #### [facility] [address] [place] [address], [place] [address]Pranufland [Mass/Vol]0.7 mg/dLNormal0.5-1.3FCincinnati VA Medical CenterComment on above:Performed By: #### [id number] #### [facility] [address] [place], [place] [address]Htadedz [Mass/Vol]84 mg/nNVuvzei52-392PoslvtTrihealth Bethesda Butler HospitalComment on above:Performed By: #### [id number] #### [facility] [address], [place] [address]Sryalklyu [Moles/Vol]3.3 mmol/LLow3.5-5.3FCincinnati VA Medical CenterComment on above:Performed By: #### [id number] #### [facility] [address] [place], [place] [address]Trslzu [Moles/Vol]139 mmol/NYzzlvd231-948GrgjnmTrihealth Bethesda Butler HospitalComment on above:Performed By: #### [id number] #### [facility] [address] [place] [address]Rxqy nitrogen [Mass/Vol]21 mg/dLNormal5-21[facility] HospitalComment on above:Performed By: #### [id number] #### [facility] [address] [place] [address]FJE w/ Auto Diffon 33-88-2009Inbcuuzu Absolute0.0 E9/LNormal 0.0-0.2FCincinnati VA Medical CenterComment on above:Performed By: #### [id number] #### [facility] [address] [place] [address]Vdmbzuvoq/100 WBC (Bld)0.4 %Normal0.0-2.0[facility] HospitalComment on above:Performed By: #### [id number] #### [facility] [address] [place] [address]Vui Absolute0.0 E9/LNormal0.0-0.5FCincinnati VA Medical Center Comment on above:Performed By: #### [id number] #### [facility] [address] [place] [address]Mnogewcusdt/100 WBC (Bld)0.7 %Normal0.0-8.0[facility] HospitalComment on above:Performed By: #### [id number] #### [facility] [address] [place] [address]Qngcbauwjfj distribution width (RBC) [Ratio]12.6 %Normal 10.9-14.2FCincinnati VA Medical CenterComment on above:Performed By: #### [id number] #### [facility] [address] [place], [place] [address]Uaqvlcibyg (Bld) [Volume fraction]41.3 %Gaqwne09.0-46.0[facility] HospitalComment on above:Performed By: #### [id number] #### [facility] [address] [place], [place] [address]Ebrrikqava (Bld) [Mass/Vol]14.6 g/dONnaseb80.0-16.0[facility] HospitalComment on above:Performed By: #### [id number] #### [facility] [address] [place] [address]Fsceo Absolute1.6 E9/LNormal1.0-4.0[facility] Comment on above:Performed By: #### [id number] #### [facility] [address] [place] [address]Ieoainsuhwm/100 WBC (Bld)25.1 %Ghjqbg63.0-50.0[facility] HospitalComment on above:Performed By: #### [id number] #### [facility] [address] [place] [address]RMW (RBC) [Entitic mass]32.3 ndSsdnvh11.0-34.0[facility] HospitalComment on above:Performed By: #### [id number] #### [facility] [address] [place] [address]LUAO (RBC) [Mass/Vol]35.3 g/lEBlslsn57.4-36.0[facility] HospitalComment on above:Performed By: #### [id number] #### [facility] [address] [place] [address]PLC (RBC) [Entitic vol]91.4 hXCuydvy55.0-100.0[facility] HospitalComment on above:Performed By: #### [id number] #### [facility] [address] [place] [address]Xpkc Absolute0.4 E9/LNormal0.2-1.0[facility] Comment on above:Performed By: #### [id number] #### [facility] [address] [place] [address]Fqqcaveit/100 WBC (Bld)5.4 %Normal4.0-14.0[facility] HospitalComment on above:Performed By: #### [id number] #### [facility] [address] [place], [place] [address]Benhgs Absolute4.4 E9/LNormal2.0-7.5FCincinnati VA Medical Center Comment on above:Performed By: #### [id number] #### [facility] [address] [place], [place] [address]Jyhqlx Auto68.4 %Cfucvh32.0-75.0[facility] Comment on above:Performed By: #### [id number] #### [facility] [address] [place] [address]Ruaypdkk672.0 E9/OVicznf245.0-500.0[facility] Comment on above:Performed By: #### [id number] #### [facility] [address] [place] [address]Pbfoiarv mean volume (Bld) [Entitic vol]7.7 fLNormal6.4-10.8 [facility] HospitalComment on above:Performed By: #### [id number] #### [facility] [address] [place] [address]XJC3.5 E12/LNormal4.3-5.9[facility] HospitalComment on above:Performed By: #### [id number] #### [facility] [address] [place] [address]AJZ3.5 E9/LNormal4.0-11.0[facility] HospitalComment on above:Performed By: #### [id number] #### [facility] [address] [place] [address]WH & PTTon 52-27-9061MMP Coag (PPP) [Relative time]0.97 {INR} Invalid Interpretation CodeTrihealth Bethesda Butler HospitalComment on above:Result Comment: INR results are specifically intended to assess patients stabilized on long-term Anticoagulation therapy suggested INR???s ???Less Intensive Anticoagulation??? 2.0 ??? 3.0 Conventional Range 3.0 ??? 4.5Performed By: #### [id number] #### [facility] [address] [place], [place] [address]KY47.9 second(s)Normal9.4-12.5FCincinnati VA Medical Center Comment on above:Result Comment: 15 days - 4 weeks 1 - [...] the same coagulation reagent and instrumentation as [facility]. Currently there are no coagulation studies available worldwide for children to 14 days, andno normal ranges.Performed By: #### [id number] #### [facility] [address] [place], [place] [address]YTA25.9 second(s)Mimscl75.1-36.5FCincinnati VA Medical Center Comment on above:Result Comment: Parameter 15 days - 4 weeks 1 - [...] the same coagulation reagent and instrumentation as [facility]. Currently there are no coagulation studies available worldwide for children to 14 days, andno normal ranges. Heparin therapeutic range (represented by Anti-Factor Xa activity of 0.2 - 0.4 U/mL) corresponds to PTT of 56.6 - 109.0 sec.Performed By: #### [id number] #### [facility] [address] [place] [address]WX with Cult Rflxon 56-84-6769Frjvj (U)Light-YellowNormalYellow [facility] HospitalComment on above:Result Comment: Microscopic readings are only performed on those samples that meet specific criteria set forth by [facility].Performed By: #### [id number] #### [facility] [address] [place] [id number] (U) [Mass/Vol]NegativeNormalNegativeTrihealth Bethesda Butler HospitalComment on above:Performed By: #### [id number] #### [facility] [address] [place], [place] [address]Ketones Ql (U)NegativeNormalNegativeTrihealth [facility]hes[facility] Comment on above:Performed By: #### [id number] #### [facility] [address] [place] [address]PP BloodNegativeNormalNegWVUMedicine Harrison Community Hospital Comment on above:Performed By: #### [id number] #### [facility] [address] [place] [address]YQ ClarityClearNormalClearTrihealth Bethesda Butler HospitalComment on above:Performed By: #### [id number] #### [facility] [address] [place], [place] [address]PN Leuk EstNegativeNormalNegWVUMedicine Harrison Community Hospital Comment on above:Performed By: #### [id number] #### [facility] [address] [place] [address]DA NitriteNegativeNormalNegWVUMedicine Harrison Community Hospital Comment on above:Performed By: #### [id number] #### [facility] [address] [place] [id number] pH7.0Invalid Interpretation Code5.0-9.0[facility] HospitalComment on above:Performed By: #### [id number] #### [facility] [address] [place], [place] [address]ZP ProteinNegativeNormalNegativeTrihealth Bethesda [facility] Hospital Comment on above:Performed By: #### [id number] #### [facility] [address] [place], [place] [address]CH Spec Grav1.011Invalid Interpretation Code1.005-1.030[facility] HospitalComment on above:Performed By: #### [id number] #### [facility] [address] [place], [place] [address]QZ UrobilinogenNegativeNormalNegativeTrihealth Bethesda Butler HospitalComment on above:Performed By: #### [id number] #### [facility] [address] [place], [place] [address]Hnftkercutuw (U) [Mass/Vol]NegativeNormalNegativeTrihealth Bethesda Butler HospitalComment on above:Performed By: #### [id number] #### [facility] [address] [place], [place] [address]RE Spec DescClean CatchNormalTrihealth Bethesda Butler HospitalComment on above:Performed By: #### [id number] #### [facility] [address] [place], [place] [address]mQYUiw 51-21-1957oIDS524 mL/min/1.73 n1Awvcmz>=59[facility] Butler HospitalComment on above:Performed By: #### [id number] #### [facility] [address] [place], [place] [address]Hilnwbrall - Chemistry and Chemistry - challengeOrdered By: Shasha Isaac on 84-49-0771Vazsicjol Ql (U)[facility] Medical CenterGlucose (U) [Mass/Vol][facility] Medical CenterKetones Ql (U)[facility] Medical CenterpH (U)7.0 [pH]UC Medical Centerpecific gravity (U) [Rel density]1.020[facility] HospitalLaboratory - Specimen informationOrdered By: Shasha Isaac on 05-05-2025 Appearance (U)clearDayton Children'S HospitalColor (U)yellowDayton Children'S HospitalLaboratory - UrinalysisOrdered By: Shasha Isaac on 69-34-9354Ycxhuyltd esterase Test strip Ql (U)NegativeDayton Children'S HospitalNitrite Ql (U)NegativeDayton Children'S HospitalProtein Ql (U) NegativeDayton Children'S HospitalNo Panel InformationOrdered By: Shasha Isaac on 21-97-8724Onybr Occult BloodNegativeDayton Children'S Hospital Urine Urobilinogen0.2EU/dLDayton Children'S HospitalAmbulatory Visit Summaryon [id number] Visit SummaryAmbulatory Visit Summary JENNIFER ZAMORA :1970 Visit Date:04/27/2025 Ambulatory Visit Instructions Your Diagnosis Renal mass Unspecified urethral stricture, female Your Care Team Attending Physician - Audie MADERA, Rosmery Mckay Primary Care Physician - GRADY DAS DO Referring Physician - GRADY DAS DO This Is Your Medications List Contact prescribing physician if questions or concerns aspirin (aspirin 81 mg Oral EC Tab) cholecalciferol-menaquinone (K2-D3 5000 125 mcg (5000 intl units)-90 mcg oral capsule) hydrochlorothiazide-losartan (hydrochlorothiazide-losartan 12.5 mg-50 mg Tab) metoprolol (Toprol XL 25 mg Tab-ER) multivitamin (Super B Complex oral tablet) omega-3 polyunsaturated fatty acids (Winter-3 Fish Oil 1000 mg oral capsule) Procedures [...] prescribing physician if questions or concerns Unchanged cholecalciferol-menaquinone (K2-D3 5000 125 mcg (5000 intl units)-90 mcg oral capsule) ByMouth Contact prescribing physician if questions or concerns Unchanged hydrochlorothiazide-losartan (hydrochlorothiazide-losartan 12.5 mg-50 mg Tab) By Mouth Every day Contact prescribing physician if questions or concerns Unchanged metoprolol (Toprol XL 25 mg Tab-ER) By Mouth Every day Contact prescribing physician if questions or concerns Unchanged multivitamin (Super B Complex oral tablet) 1 Tablets By Mouth Every day Contact prescribing physician if questions or concerns Unchanged omega-3 polyunsaturated fatty acids (Winter-3 Fish Oil 1000 mg oral capsule) By [...] the kidney include renal adenomas, oncocytomas, and angiomyolipoma(AML). ??? Cysts. These are fluid-filled sacs that [...] the mass. Follow t (more content not included)...[facility] HospitalMRI ABDOMEN W WO CONTRAST MRCPon [id number] ABDOMEN W WO CONTRAST MRCPADDENDUM: This exam was ordered with a history [...] Guaman IV, MD 12/11/24 Edited Result - FINALNormalMerLincoln HospitalBasic Metab w/rfx MGon [id number] gap [Moles/Vol]11 mmol/LNormal9-16MerLincoln HospitalComment on above:Performed By: #### MELLISA, CDP #### [facility] [address] [facility] [place] [address] Tree Warden: STEPHANI Walleralcium [Mass/Vol]9.5 mg/dLNormal8.6-10.4M[facility] Osteopathic ClinicComment on above:Performed By: #### MELINAX, CDP #### [facility] [address] [facility]. [place], [place] [id number] Tree Warden: STEPHANI Wallerhloride [Moles/Vol]103 mmol/MUgfyag71-019PbxdcMarietta Osteopathic ClinicComment on above:Performed By: #### BMPX, CDP #### [facility] [facility] [place] [address] Tree Warden: STEPHANI WallerO2 [Moles/Vol]26 mmol/ZCxdhge33-52VlbmnMarietta Osteopathic ClinicComment on above:Performed By: #### BMPX, CDP #### [facility] [address] [place] [address]. [place] [address] Tree Warden: STEPHANI Wallerreatinine [Mass/Vol]0.9 mg/dLNormal0.50-0.90 [facility] ClinicComment on above:Performed By: #### BMPX, CDP #### [facility] [address] [place] [address] Tree Warden: Velasquez Sears MDGFR/1.73 sq M.predicted among non-blacks MDRD (S/P/Bld) [Vol rate/Area]80 mL/min/{1.73_m2}Normal>60[facility] Comment on above:Result Comment: These results are not intended for [...] or following therapy that affects renal tubular secretion.Performed By: #### BMPX, CDP #### [facility] [facility] [place] [address] Tree Warden: Velasquez Sears MDGlucose [Mass/Vol]150 mg/sSMewk50-69KhozsAstria Regional Medical CenterComment on above:Performed By: #### BMPX, CDP #### [facility] [address] [place] [address]. [place], [place] [id number] Tree Warden: JACKSON Wallerotassium [Moles/Vol]3.8 mmol/LNormal3.7-5.3 [facility] ClinicComsturgis hospital on above:Performed By: #### BMPX, CDP #### [facility] [address] [place], [place] [id number] Tree Warden: LEANDRO Wallerodium [Moles/Vol]140 mmol/BCdnvjm788-580DcmerMarietta Osteopathic ClinicComsturgis hospital on above:Performed By: #### BMPX, CDP #### [facility] [address] [place] [address] Tree Warden: Velasquez Sears MDUrea nitrogen [Mass/Vol]13 mg/dLNormal6-20[facility] ClinicComsturgis hospital on above:Performed By: #### BMPX, CDP #### [facility] [address] [place] [address] Tree Warden: Velasquez Sears MDBasi Metabolic Panel w/ Reflex to MGon [id number] gap [Moles/Vol]11 mmol/L9 - 16 mmol/LBon [facility] Calcium [Mass/Vol]9.5 mg/dL8.6 - 10.4 mg/dLBon The Jewish HospitalChloride [Moles/Vol]103 mmol/L98 - 107 mmol/LBon [facility] HospitalCO2 [Moles/Vol]26 mmol/L20 - 31 mmol/LBon [facility] HospitalCreatinine [Mass/Vol]0.9 mg/dL0.50 - 0.90 mg/dLBon [facility] HospitalEst, Glom Filt Rate80- PINFBon The Jewish HospitalComment on above: These results are not intended [...] therapy that affects renal tubular secretion. Glucose [Mass/Vol]150 mg/wIKsww99 - 99 mg/dLBon [facility] Interpretation and review of laboratory resultsAbnormCarilion Clinic Potassium [Moles/Vol]3.8 mmol/L3.7 - 5.3 mmol/LBon The Jewish HospitalSodium [Moles/Vol]140 mmol/L136 - 145 mmol/LBon The Jewish HospitalUrea nitrogen [Mass/Vol]13 mg/dL6 - 20 mg/dLBon [facility] CBC with Auto Differentialon 95-65-3804Xmlosdwic (Bld) [#/Vol][facility]ospital Corporation Of AmericaBasophils/100 WBC (Bld)0 %0 - 2 %[facility] AmericaEosinophils (Bld) [#/Vol][facility] AmericaEosinophils/100 WBC (Bld)0 %Low1 - 4 %[facility] Of AmericaErythrocyte distribution width (RBC) [Ratio]11.4 %Low11.8 - 14.4 %Hospital Corporation Of AmericaHematocrit (Bld) [Volume fraction]41.0 %36.3 - 47.1 %[facility] AmericaHemoglobin (Bld) [Mass/Vol]14.6 g/dL11.9 - 15.1 g/dLBon The Jewish HospitalImmature granulocytes (Bld) [#/Vol]0.09 10*3/uLBon [facility] Townshipmage[facility] granulocytes/100 WBC (Bld)1 %Xlnm0Uyc The Jewish HospitalInterpretation and review of laboratory resultsAbnormalHospital Corporation Of AmericaLymphocytes/100 WBC (Bld)5 %Low24 - 43 %[facility] Lymphocytes/100 WBC (Bld)0.71 %LowClinch Valley Medical CenterH (RBC) [Entitic mass]32.1 pg25.2 - 33.5 pgClinch Valley Medical CenterHC (RBC) [Mass/Vol]35.6 g/dL High28.4 - 34.8 g/dLBon The Jewish HospitalMCV (RBC) [Entitic vol]90.1 fL82.6 - 102.9 fLBon The Jewish HospitalMonocytes/100 WBC (Bld)4 %3 - 12 %Bon SecTrinity Health System West CampusMonocytes/100 WBC (Bld)0.63 %Bon The Jewish HospitalNeutrophils/100 WBC (Bld)91 %High36 - 65 %Bon The [facility] HospitalNucleated RBC/100 WBC (Bld) [Ratio]0.0 %0.0 per 100 WBCBon The Jewish HospitalPlatelet mean volume (Bld) [Entitic vol]9.1 fL8.1 - 13.5 fLHospital Corporation Of AmericaPlatelets (Bld) [#/Vol] 326 10*3/uLBon The Jewish HospitalRBC (Bld) [#/Vol]4.55 10*6/uL3.95 - 5.11 m/uL Bon The [facility] HospitalSegmented neutrophils/100 WBC (Bld)14.32 %HighBon The Jewish HospitalWBC other (Bld) [#/Vol]15.8HighBon SecTrinity Health System West CampusBon The Jewish HospitalCBC with Diffon [id number]. Basophil<0.35Htexnp3.00-0.20 [facility] Osteopathic ClinicComment on above:Performed By: #### BMPX, CDP #### [facility] [address] [place] [address] Tree Warden: Shamar Waller. Eosinophil<0.72Wunusj7.00-0.44M[facility] Osteopathic ClinicComment on above:Performed By: #### BMPX, CDP #### [facility] [address] [place] [address] Tree Warden: Shamar Waller.Imm.Granulocyte0.09 k/uLNormal0.00-0.30 [facility] ClinicComment on above:Performed By: #### BMPX, CDP #### [facility] [address] [place] [address] Tree Warden: Shamar Waller.Neutrophil (Seg)14.32 k/uLHigh1.50-8.10 [facility] ClinicComment on above:Performed By: #### BMPX, CDP #### [facility] [address] [place] [address] Tree Warden: Velasquez Sears MDBasophils/100 WBC (Bld)0 %Normal0-2[facility] BallardComment on above:Performed By: #### BMPX, CDP #### [facility] [address] [place] [address] Tree Warden: ALEXIA Wallerosinophils/100 WBC (Bld)0 %Low1-4[facility] BallardComment on above:Performed By: #### BMPX, CDP #### [facility] [address] [place] [address] Tree Warden: Velasquez Sears MDErythrocyte distribution width (RBC) [Ratio] 11.4 %Low11.8-14.4[facility] BallardComment on above:Performed By: #### BMPX, CDP #### [facility] [address] [place] [address] Tree Warden: Velasquez Sears MDHematocrit (Bld) [Volume fraction]41.0 %Normal 36.3-47.1[facility] BallardComment on above:Performed By: #### BMPX, CDP #### [facility] [address] [place] [address] Tree Warden: Velasquez Sears MDHemoglobin (Bld) [Mass/Vol]14.6 g/dLNormal 11.9-15.1[facility] BallardComment on above:Performed By: #### BMPX, CDP #### [facility] [address] [facility] [place] [address] Tree Warden: Robyn Waller granulocytes/100 WBC (Bld)1 %High0 [facility] ClinicComsturgis hospital on above:Performed By: #### BMPX, CDP #### [facility] [address] [place] [address] Tree Warden: Spencer Wallermphocytes (Bld) [#/Vol]0.71 10*3/uLLow 1.10-3.70[facility] ClinicComsturgis hospital on above:Performed By: #### BMPX, CDP #### [facility] [address] [place] [address] Tree Warden: Spencer Wallermphocytes/100 WBC (Bld)5 %Lci35-67BsbvdMarietta Osteopathic ClinicComsturgis hospital on above:Performed By: #### BMPX, CDP #### [facility] [address] [place] [address] Tree Warden: KELLIE Waller (RBC) [Entitic mass]32.1 tkWvqiby45.2-33.5 [facility] ClinicComsturgis hospital on above:Performed By: #### BMPX, CDP #### [facility] [address] [place] [address] Tree Warden: KELLIE WallerC (RBC) [Mass/Vol]35.6 g/cIRkoo01.4-34.8 [facility] ClinicComsturgis hospital on above:Performed By: #### BMPX, CDP #### [facility] [address] [place] [address] Tree Warden: NELL WallerCV (RBC) [Entitic vol]90.1 dJQeiupy03.6-102.9 [facility] ClinicComsturgis hospital on above:Performed By: #### BMPX, CDP #### [facility] [address] [facility] [place] [address] Tree Warden: NELL Walleronocytes (Bld) [#/Vol]0.63 10*3/uLNormal 0.10-1.20MerLincoln HospitalComsturgis hospital on above:Performed By: #### BMPX, CDP #### [facility] [address] [place] [address] Tree Warden: NELL Walleronocytes/100 WBC (Bld)4 %Normal3-12[facility] on above:Performed By: #### BMPX, CDP #### [facility] [address] [place] [address] Tree Warden: Yasemin Wallerophil (Seg)91 %Zqwb45-94VunwqLincoln HospitalComsturgis hospital on above:Performed By: #### BMPX, CDP #### [facility] [address] [place] [address] Tree Warden: Velasquez Sears MDNRBC Automated0.0 per 100 WBCNormal0.0[facility] on above:Performed By: #### BMPX, CDP #### [facility] [address] [place] [address] Tree Warden: JACKSON Wallerlatelet mean volume (Bld) [Entitic vol]9.1 fL Normal8.1-13.5[facility] on above:Performed By: #### BMPX, CDP #### [facility] [address] [place] [address] Tree Warden: Jose Wallertelets (Bld) [#/Vol]326 10*3/aYLugaww500-854 [facility] ClinicComment on above:Performed By: #### BMPX, CDP #### [facility] [address] [place] [address] Tree Warden: МАРИНА WallerBC (Bld) [#/Vol]4.55 10*6/uLNormal3.95-5.11 [facility] ClinicComment on above:Performed By: #### BMPX, CDP #### [facility] [address] [facility] [place] [address] Tree Warden: YADIEL WallerBC (Bld) [#/Vol]15.8 10*3/uLHigh3.5-11.3MAstria Regional Medical CenterComment on above:Performed By: #### BMPX, CDP #### [facility] [address] [place] [address] Tree Warden: JESUS MANUEL Waller Abdomen WO and W contrast Jabier . Cholelithiasis with no evidence of acute cholecystitis. 2. Mild biliary dilatation with no evidence of choledocholithiasis. 3. Normal MRI appearance of the pancreas. [facility] RIS CONSOLIDATEDEXAMINATION: MRI OF THE ABDOMEN WITH AND WITHOUT [...] mucosal thickening or pericholecystic fluid. Other: None [facility] Amna Morgan IV, MD - 12/02/2024 EXAMINATION: MRI OF [...] 3. Normal MRI appearance of the pancreas. [employer]Radiology Study observation (narrative)[employer] Abdomen WO and W contrast IVOrdered By: Amna Guaman on 12-02-2024 [employer] Work Phone: Surgical Pathology Reporton [id number] Pathology Report(NOTE) Path Number: [id number] -- Diagnosis -- Gallbladder: -Cholelithiasis and chronic [...] Microscopic Description Microscopic examination performed. Processing Lab: [address] [address] Interpretation Performed at [address] [address] SURGICAL PATHOLOGY CONSULTATION Patient Name: JENNIFER ZAMORA Med Rec: [id number] [employer] [facility] ANATOMIC PATHOLOGY [address] [place] [address]. [place], [place] [address] NoChillicothe HospitalBasi Metabolic Panelon [id number] gap [Moles/Vol]8 mmol/LLow9 - 16 mmol/LBon [facility] Calcium [Mass/Vol]9.2 mg/dL8.6 - 10.4 mg/dLBon SecJuristat HealthChloride [Moles/Vol]106 mmol/L98 - 107 mmol/LBon SecAtlas LocalCO2 [Moles/Vol]26 mmol/L20 - 31 mmol/LBon SecAtlas LocalCreatinine [Mass/Vol]0.7 mg/dL0.50 - 0.90 mg/dLBon SecJuristat HealthEst, Glom Filt Rate- PINFBon SecJuristat Holzer HospitalComment on above: These results are not intended for use in patients <18 years of age. eGFR results are calculated without a race factor using the 2021 CKD-EPI equation. Careful clinical correlation is recommended, particularly when comparing to results calculated using previous equations. The CKD-EPI equation is less accurate in patients with extremes of muscle mass, extra-renal metabolism of creatine, excessive creatine ingestion, or following therapy that affects renal tubular secretion. Glucose [Mass/Vol]85 mg/dL74 - 99 mg/dLBon Secours Mercy HealthPotassium [Moles/Vol]4.1 mmol/L3.7 - 5.3 mmol/LBon Secours Mercy HealthSodium [Moles/Vol] 140 mmol/L136 - 145 mmol/LBon Secours Mercy HealthUrea nitrogen [Mass/Vol]9 mg/dL6 - 20 mg/dLBon Secours Mercy HealthAnion gap [Moles/Vol]8 mmol/LLow9 - 16 mmol/LBon Secours Mercy HealthCalcium [Mass/Vol]8.9 mg/dL8.6 - 10.4 mg/dLBon Secours Mercy HealthChloride [Moles/Vol]104 mmol/L98 - 107 mmol/LBon Secours Mercy HealthCO2 [Moles/Vol]27 mmol/L20 - 31 mmol/LBon [facility] Creatinine [Mass/Vol]0.7 mg/dL0.50 - 0.90 mg/dLBon Secours Mercy HealthEst, Glom Filt Rate- PINFBon Secours Spectrawatty HealthComment on above: These results are not intended for use in patients <18 years of age. eGFR results are calculated without a race factor using the 2021 CKD-EPI equation. Careful clinical correlation is recommended, particularly when comparing to results calculated using previous equations. The CKD-EPI equation is less accurate in patients with extremes of muscle mass, extra-renal metabolism of creatine, excessive creatine ingestion, or following therapy that affects renal tubular secretion. Glucose [Mass/Vol]95 mg/dL74 - 99 mg/dLBon Secours Mercy HealthInterpretation and review of laboratory resultsAbnormalBon Secours Mercy HealthPotassium [Moles/Vol]3.7 mmol/L3.7 - 5.3 mmol/LBon Secours Mercy HealthSodium [Moles/Vol] 138 mmol/L136 - 145 mmol/LBon Secours Mercy HealthUrea nitrogen [Mass/Vol]11 mg/dL6 - 20 mg/dLBon [facility] HospitalBon The Jewish HospitalBasic Metabolic Profon [id number] gap [Moles/Vol]8 mmol/LLow9-16[facility] Comment on above:Performed By: #### CDP, BMP, LIVP #### [facility] [address] [place] [address] Tree Warden: STEPHANI Walleralcium [Mass/Vol]9.2 mg/dLNormal8.6-10.4[facility] ClinicComment on above:Performed By: #### CDP, BMP, LIVP #### [facility] [address] [place] [address] Tree Warden: STEPHANI Wallerhloride [Moles/Vol]106 mmol/WOziqyz78-936NcdzfMarietta Osteopathic ClinicComment on above:Performed By: #### CDP, BMP, LIVP #### [facility] [place] [address] Tree Warden: STEPHANI WallerO2 [Moles/Vol]26 mmol/FWnmwcr09-61QcqnjMarietta Osteopathic ClinicComment on above:Performed By: #### CDP, BMP, LIVP #### [facility] [address] [place] [address] Tree Warden: STEPHANI Wallerreatinine [Mass/Vol]0.7 mg/dLNormal0.50-0.90 [facility] ClinicComment on above:Performed By: #### CDP, BMP, LIVP #### [facility] [place] [address] Tree Warden: Velasquez Sears MDGFR/1.73 sq M.predicted among non-blacks MDRD (S/P/Bld) [Vol rate/Area]mL/min/{1.73_m2}Normal>60MerLincoln HospitalComment on above:Result Comment: These results are not intended for [...] or following therapy that affects renal tubular secretion.Performed By: #### CDP, BMP, LIVP #### [facility] [place] [address] Tree Warden: Velasquez Sears MDGlucose [Mass/Vol]85 mg/qPEvzjry40-34Sddnc [facility] BallardComment on above:Performed By: #### CDP, BMP, LIVP #### [facility] [address] [place] [address]. [place] [address] Tree Warden: JACKSON Wallerotassium [Moles/Vol]4.1 mmol/LNormal3.7-5.3 [facility] ClinicComsturgis hospital on above:Performed By: #### CDP, BMP, LIVP #### [facility] [address] [place] [address]. [place] [address] Tree Warden: LEANDRO Wallerodium [Moles/Vol]140 mmol/KKwsqzg270-028MpbsjLincoln HospitalComment on above:Performed By: #### CDP, BMP, LIVP #### [facility] [address] [place] [address]. [place] [address] Tree Warden: Velasquez Sears MDUrea nitrogen [Mass/Vol]9 mg/dLNormal6-20MerLincoln HospitalComment on above:Performed By: #### CDP, BMP, LIVP #### [facility] [address] [place] [address] Tree Warden: Velasquez Sears MDAnion gap [Moles/Vol]8 mmol/LLow9-16[facility] ClinicComsturgis hospital on above:Performed By: #### BMP #### [facility] [address] [place] [address] Tree Warden: Velasquez Sears MD #### TRIG #### [address] [address] Tree Warden: STEPHANI Casasalcium [Mass/Vol]8.9 mg/dLNormal8.6-10.4[facility] ClinicComsturgis hospital on above:Performed By: #### BMP #### [facility] [address] [place] [address] Tree Warden: Velasquez Sears MD #### TRIG #### [address] [address] Tree Warden: STEPHANI Casashloride [Moles/Vol]104 mmol/PLmrhnh57-005JfwrnMarietta Osteopathic ClinicComsturgis hospital on above:Performed By: #### BMP #### [facility] [address] [place] [address] Tree Warden: Velasquez Sears MD #### TRIG #### [address] [address] Tree Warden: Hilario Hdz MDCO2 [Moles/Vol]27 mmol/SYrhdmi27-72ElkpgMarietta Osteopathic ClinicComsturgis hospital on above:Performed By: #### BMP #### [facility] [address] [place] [address] Tree Warden: Velasquez Sears MD #### TRIG #### [address] [address] Tree Warden: STEPHANI Casasreatinine [Mass/Vol]0.7 mg/dLNormal0.50-0.90 [facility] ClinicComsturgis hospital on above:Performed By: #### BMP #### [facility] [address] [place] [address] Tree Warden: Velasquez Sears MD #### TRIG #### [address] [address] Tree Warden: Hilario Hdz MDGFR/1.73 sq M.predicted among non-blacks MDRD (S/P/Bld) [Vol rate/Area]mL/min/{1.73_m2}Normal>60[facility] ClinicComsturgis hospital on above:Result Comment: These results are not intended for [...] or following therapy that affects renal tubular secretion.Performed By: #### BMP #### [facility] [address] [place] [address] Tree Warden: Velasqeuz Sears MD #### TRIG #### [address] [address] Tree Warden: Hilario Hdz MDGlucose [Mass/Vol]95 mg/wGLdszcu87-05Zyann [facility] BallardComsturgis hospital on above:Performed By: #### BMP #### [facility] [address] [place] [address] Tree Warden: Velasquez Sears MD #### TRIG #### [address] [address] Tree Warden: JACKSON Casasotassium [Moles/Vol]3.7 mmol/LNormal3.7-5.3 [facility] ClinicComment on above:Performed By: #### BMP #### [facility] [address] [place] [address] Tree Warden: Velasquez Sears MD #### TRIG #### [place] [address] [place], [place] [id number] Tree Warden: LEANDRO Casasodium [Moles/Vol]138 mmol/JZjlhuh650-827TfhapMarietta Osteopathic ClinicComment on above:Performed By: #### BMP #### [facility] [address] [place] [address] Tree Warden: Velasquez Sears MD #### TRIG #### [address] [id number] Tree Warden: Hilario Hdz MDUrea nitrogen [Mass/Vol]11 mg/dLNormal6-20[facility] ClinicComment on above:Performed By: #### BMP #### [facility] [address] [place] [address] Tree Warden: Velasquez Sears MD #### TRIG #### [address] [id number] Tree Warden: Hilario Hdz [facility] with Auto Differentialon [id number] (Bld) [#/Vol]0.03 10*3/uLBon Secours Mercy HealthBasophils/100 WBC (Bld)1 %0 - 2 %[facility] Mercy HealthEosinophils (Bld) [#/Vol]0.05 10*3/uLBon Secours Mercy HealthEosinophils/100 WBC (Bld)1 %1 - 4 %[facility] Erythrocyte distribution width (RBC) [Ratio]11.6 %Low11.8 - 14.4 %[facility] Mercy HealthHematocrit (Bld) [Volume fraction]40.5 %36.3 - 47.1 %Bon SecTrinity Health System West CampusHemoglobin (Bld) [Mass/Vol]13.9 g/dL11.9 - 15.1 g/dLBon SecTrinity Health System West CampusImmature granulocytes (Bld) [#/Vol]0.01 10*3/uLBon Secours Paulding County HospitalImmature granulocytes/100 WBC (Bld)0 %0Bon [facility] Interpretation and review of laboratory resultsAbnormalBon [facility] Lymphocytes/100 WBC (Bld)25 %24 - 43 %Bon SecTrinity Health System West CampusLymphocytes/100 WBC (Bld)1.11 %Bon [facility] HospitalH (RBC) [Entitic mass]31.6 pg25.2 - 33.5 pgBon [facility] HospitalHC (RBC) [Mass/Vol]34.3 g/dL28.4 - 34.8 g/dLBon SecWilson Street HospitalV (RBC) [Entitic vol]92.0 fL82.6 - 102.9 fLBon The Jewish HospitalMonocytes/100 WBC (Bld)6 %3 - 12 %[facility] Monocytes/100 WBC (Bld)0.27 %[facility] Corporation [facility] AmericaNeutrophils/100 WBC (Bld)67 %High36 - 65 %Bon [facility] HospitalNucleated RBC/100 WBC (Bld) [Ratio]0.0 % 0.0 per 100 WBCBon The Jewish HospitalPlatelet mean volume (Bld) [Entitic vol] 8.9 fL8.1 - 13.5 fLBon SecSavoy Medical Center HealthPlatelets (Bld) [#/Vol]267 10*3/uLBon Secours [facility] HealthRBC (Bld) [#/Vol]4.40 10*6/uL3.95 - 5.11 m/uLBon The Jewish HospitalSegmented neutrophils/100 WBC (Bld)3.03 %Bon SecTrinity Health System West CampusWBC other (Bld) [#/Vol]4.5[facility] SecTrinity Health System West CampusCBC with Diffon [id number]. Basophil0.03 k/uLNormal0.00-0.20[facility] Comment on above:Performed By: #### CDP, BMP, LIVP #### [facility] [address] [place] [address]. [place] [address] Tree Warden: Shamar Waller.Imm.Granulocyte0.01 k/uLNormal0.00-0.30 [facility] ClinicComment on above:Performed By: #### CDP, BMP, LIVP #### [facility] [address] [place] [address]. [place] [address] Tree Warden: Shamar Waller.Neutrophil (Seg)3.03 k/uLNormal1.50-8.10 [facility] ClinicComment on above:Performed By: #### CDP, BMP, LIVP #### [facility] [address] [place] [address] Tree Warden: Velasquez Sears MDBasophils/100 WBC (Bld)1 %Normal0-2[facility] BallardComment on above:Performed By: #### CDP, BMP, LIVP #### [facility] [address] [place] [address] Tree Warden: ALEXIA Wallerosinophils (Bld) [#/Vol]0.05 10*3/uLNormal 0.00-0.44MerLincoln HospitalComment on above:Performed By: #### CDP, BMP, LIVP #### [facility] [address] [place] [address] Tree Warden: ALEXIA Wallerosinophils/100 WBC (Bld)1 %Normal1-4MerLincoln HospitalComment on above:Performed By: #### CDP, BMP, LIVP #### [facility] [address] [place] [address] Tree Warden: Velasquez Sears MDErythrocyte distribution width (RBC) [Ratio] 11.6 %Low11.8-14.4[facility] ClinicComsturgis hospital on above:Performed By: #### CDP, BMP, LIVP #### [facility] [address] [place] [address] Tree Warden: Velasquez Sears MDHematocrit (Bld) [Volume fraction]40.5 %Normal 36.3-47.1MAstria Regional Medical CenterComsturgis hospital on above:Performed By: #### CDP, BMP, LIVP #### [facility] [address] [place] [address] Tree Warden: Velasquez Sears MDHemoglobin (Bld) [Mass/Vol]13.9 g/dLNormal 11.9-15.1MAstria Regional Medical CenterComment on above:Performed By: #### CDP, BMP, LIVP #### [facility] [address] [place] [address] Tree Warden: Velasquez Sears MDImmature granulocytes/100 WBC (Bld)0 %Normal0 [facility] ClinicComsturgis hospital on above:Performed By: #### CDP, BMP, LIVP #### [facility] [address] [place] [address] Tree Warden: Velasquez Sears MDLymphocytes (Bld) [#/Vol]1.11 10*3/uLNormal 1.10-3.70[facility] ClinicComsturgis hospital on above:Performed By: #### CDP, BMP, LIVP #### [facility] [address] [place] [address] Tree Warden: Spencer Wallermphocytes/100 WBC (Bld)25 %Pwwrvk58-39Wiloa Schall Circle HospitalComment on above:Performed By: #### CDP, BMP, LIVP #### [facility] [facility] [place] [address] Tree Warden: NELL WallerCH (RBC) [Entitic mass]31.6 onStubbt43.2-33.5 [facility] ClinicComment on above:Performed By: #### CDP, BMP, LIVP #### [facility] [address] [place] [address]. [place] [address] Tree Warden: KELLIE WallerC (RBC) [Mass/Vol]34.3 g/dVWcifqx74.4-34.8 [facility] ClinicComsturgis hospital on above:Performed By: #### CDP, BMP, LIVP #### [facility] [address] [place] [address]. [place] [address] Tree Warden: NELL WallerCV (RBC) [Entitic vol]92.0 xIMyxjth73.6-102.9 [facility] ClinicComsturgis hospital on above:Performed By: #### CDP, BMP, LIVP #### [facility] [address] [place] [address]. [place] [address] Tree Warden: NELL Walleronocytes (Bld) [#/Vol]0.27 10*3/uLNormal 0.10-1.20[facility] ClinicComsturgis hospital on above:Performed By: #### CDP, BMP, LIVP #### [facility] [address] [place] [address]. [place] [address] Tree Warden: NELL Walleronocytes/100 WBC (Bld)6 %Normal3-12[facility] ClinicComment on above:Performed By: #### CDP, BMP, LIVP #### [facility] [address] [place] [address] [place] [address] Tree Warden: Zulma Waller (Seg)67 %Idmt00-24SnqleHarrison Community Hospital on above:Performed By: #### CDP, BMP, LIVP #### [facility] [address] [place] [address] Tree Warden: FRANKY Waller Automated0.0 per 100 WBCNormal0.0[facility] on above:Performed By: #### CDP, BMP, LIVP #### [facility] [address] [place], [place] [address]ia [facility] [place] [address] Tree Warden: Cesar Waller mean volume (Bld) [Entitic vol]8.9 fL Normal8.1-13.5[facility] on above:Performed By: #### CDP, BMP, LIVP #### [facility] [place] [address] Tree Warden: Shavon Waller (Bld) [#/Vol]267 10*3/tTXqmrom062-032 [facility] on above:Performed By: #### CDP, BMP, LIVP #### [facility] [place] [address] Tree Warden: BENNY Waller (Bld) [#/Vol]4.40 10*6/uLNormal3.95-5.11 [facility] on above:Performed By: #### CDP, BMP, LIVP #### [facility] [address] [place] [address] Tree Warden: LENIN Waller (Bld) [#/Vol]4.5 10*3/uLNormal3.5-11.3[facility] BallardComment on above:Performed By: #### CDP, BMP, LIVP #### [facility] [address] [place] [address] Tree Warden: Velasquez Sears MDHepatic Function Panelon [id number] [Mass/Vol]3.9 g/dL3.5 - 5.2 g/dLBon The Jewish HospitalAlbumin/Globulin [Mass ratio]1.4 {ratio}1.0 - 2.5Bon [facility] HealthALP [Catalytic activity/Vol] 150 U/LHigh35 - 104 U/LBon [facility] HealthALT [Catalytic activity/Vol]81 U/LHigh10 - 35 U/LBon [facility] HealthAST [Catalytic activity/Vol]57 U/LHigh 10 - 35 U/LBon [facility] HealthBilirubin [Mass/Vol]0.6 mg/dL0.00 - 1.20 mg/dLBon The Jewish HospitalBilirubin.direct [Mass/Vol]0.2 mg/dL0.00 - 0.20 mg/dLBon The Jewish HospitalBilirubin.indirect [Mass/Vol]0.4 mg/dLBon [facility] HospitalProtein [Mass/Vol]6.6 g/dL6.6 - 8.7 g/dLBon [facility] Liver Profileon [id number] [Mass/Vol]3.9 g/dLNormal3.5-5.2[facility] BallardComment on above:Performed By: #### CDP, BMP, LIVP #### [facility] [address] [facility] [place] [address] Tree Warden: Velasquez Sears MDAlbumin/Glob Ratio1.3Sobbjb1.0-2.5[facility] BallardComsturgis hospital on above:Performed By: #### CDP, BMP, LIVP #### [facility] [address] [place] [address] Tree Warden: Laurie Waller Hrhd419 U/RIyld19-140UxhrnMarietta Osteopathic ClinicComsturgis hospital on above:Performed By: #### CDP, BMP, LIVP #### [facility] [address] [place] [address] Tree Warden: Velasquez Sears MDALT [Catalytic activity/Vol]81 U/SOaph36-13 [facility] ClinicComsturgis hospital on above:Performed By: #### CDP, BMP, LIVP #### [facility] [address] [place] [address] Tree Warden: Velasquez Sears MDAST [Catalytic activity/Vol]57 U/DVsez10-17 [facility] on above:Performed By: #### CDP, BMP, LIVP #### [facility] [address] [place], [place] [address] [place] [address] Tree Warden: Velasquez Sears MDBilirubin [Mass/Vol]0.6 mg/dLNormal0.00-1.20 [facility] ClinicComsturgis hospital on above:Performed By: #### CDP, BMP, LIVP #### [facility] [address] [place] [address] Tree Warden: Velasquez Sears MDBilirubin, Indirect0.4 mg/dLNormalHarrison Community Hospital on above:Performed By: #### CDP, BMP, LIVP #### [facility] [address] [place] [address] Tree Warden: Velasquez Sears MDBilirubin.indirect [Mass/Vol]0.2 mg/dLNormal 0.00-0.20[facility] ClinicComsturgis hospital on above:Performed By: #### CDP, BMP, LIVP #### [facility] [address] [place] [address] Tree Warden: JACKSON Wallerrotein [Mass/Vol]6.6 g/dLNormal6.6-8.7[facility]ardComsturgis hospital on above:Performed By: #### CDP, BMP, LIVP #### [facility] [address] [place] [address] Tree Warden: Velasquez Sears MDNo Panel Informationon 77-38-5569Gdfskraqevunpx and review of laboratory resultsAbnormalBon [facility] Regional HospitalTriglycerideon 01-47-2801Ytvgbexehcsx [Mass/Vol]124 mg/dLNINF - 150 mg/dLBon [facility] HospitalComsturgis hospital on above: Triglyceride Guidelines: <150 Desirable 150-199 Borderline 200-499 High >499 Very high Based on AHA Guidelines for fasting triglyceride, July 2012. Bon [facility] HospitalTriglycerideson 54-45-1707Mtzmqveksotb [Mass/Vol]124 mg/dLNormal<150MerLincoln HospitalComment on above:Result Comment: Triglyceride Guidelines: <150 Desirable 150-199 Borderline 200-499 High >499 Very high Based on AHA Guidelines for fasting triglyceride, July 2012.Performed By: #### BMP #### [facility] [address] [place] [address] Tree Warden: Velasquez Sears MD #### TRIG #### [address] [address] Tree Warden: Hilario Hdz MDBasophils Auto (Bld) [#/Vol]on 11-30-2024 Basophils (Bld) [#/Vol]Automated basophil count0.0-0.1FRiverview Health InstituteBasophils/100 WBC Auto (Bld)on 49-13-5573Wqkidaxaz/100 WBC (Bld)Automated basophil %0.2-2.0[facility] HospitalEosinophils/100 WBC Auto (Bld)on 12-23-0656Pavqkslbyaj/100 WBC (Bld)Automated eosinophil %0.9-7.0 [facility] HospitalErythrocyte distribution width Auto (RBC) [Ratio]on 00-39-2641Twdrriwryru distribution width (RBC) [Ratio]Erythrocyte distribution width [Ratio] by Automated count11.0-15.0[facility]'S HospitalEstimated glomerular filtration rate (GFR) non- Americanon 12-95-7338QRL/1.73 sq M.predicted among non-blacks MDRD (S/P/Bld) [Vol rate/Area]Estimated glomerular filtration rate (GFR) non- AmericanLow>=60 mL/min/1.73m 2FRiverview Health InstituteGlobulin Calc (S) [Mass/Vol]on 95-92-3413Iiteeryn (S) [Mass/Vol]Serum globulin measurement by calculation (mass/volume)[facility]S HospitalHematocrit Auto (Bld) [Volume fraction]on 46-69-3426Ymkwpxhjfh (Bld) [Volume fraction]Hematocrit [Volume Fraction] of Blood by Automated count36.0-48.0[facility] Hemoglobin [Mass/volume] in Bloodon 62-18-3055Dgnnvivtzf (Bld) [Mass/Vol] Hemoglobin [Mass/volume] in Blood12.0-16.0[facility] Laboratory - Chemistry and Chemistry - challengeon 58-37-7138Sthqbqy [Mass/Vol] 3.9 g/dL3.4-5.0[facility]S HospitalALP [Catalytic activity/Vol]138 U/PRyvp36-378TcgtgqezdDayton Children'S HospitalALT [Catalytic activity/Vol]25 U/L 14-59Day[facility]'S HospitalAmylase [Catalytic activity/Vol]106 U/L 25-115Day[facility]'S HospitalAST [Catalytic activity/Vol]24 U/L15-37 [facility] HospitalBilirubin [Mass/Vol]0.5 mg/dL0.2-1.0[facility]S HospitalBilirubin.direct [Mass/Vol]0.1 mg/dL0.0-0.2FRiverview Health InstituteCalcium [Mass/Vol]9.4 mg/dL8.5-10.1FRiverview Health InstituteChloride [Moles/Vol]102 mmol/G80-498LhsftytzkDayton Children'S HospitalCO2 [Moles/Vol]29.1 mmol/L21.0-32.0[facility] Creatinine [Mass/Vol]0.98 mg/dL0.55-1.02[facility] GFR/1.73 sq M.predicted MDRD (S/P/Bld) [Vol rate/Area]mL/min/{1.73_m2}>=60 mL/min/1.73m 2FRiverview Health InstituteGlucose [Mass/Vol]106 mg/jZ84-208 [facility] HospitalLipase [Catalytic activity/Vol]215.0 U/LHigh 16.0-77.0[facility] HospitalPotassium [Moles/Vol]3.5 mmol/L3.5-5.1 [facility] HospitalProtein [Mass/Vol]7.8 g/dL6.4-8.2FOhioHealth Nelsonville Health Centerodium [Moles/Vol]139 mmol/Z185-656SxsvdabdcDayton Children'S HospitalUrea nitrogen [Mass/Vol]14.0 mg/dL7.0-18.0[facility]S HospitalUrea nitrogen/Creatinine [Mass ratio]14.3 mg/mgDayton Children'S HospitalLaboratory - Hematology and Cell countson 68-74-2889Kiodoovb granulocytes/100 WBC (Bld)0.0 %0.0-0.5FRiverview Health Institute Leukocytes [#/volume] corrected for nucleated erythrocytes in Blood by Automated counon 41-25-7526QJH corrected for nucl RBC Auto (Bld) [#/Vol]Leukocytes [#/volume] corrected for nucleated erythrocytes in Blood by Automated coun 4.0-11.0[facility]S HospitalLymphocytes Auto (Bld) [#/Vol]on 51-52-1190Lhxxcpsepmz (Bld) [#/Vol]Lymphocytes [#/volume] in Blood by Automated count1.2-3.8[facility]S HospitalLymphocytes/100 WBC Auto (Bld)on 19-50-4039Xbyvctetgyl/100 WBC (Bld)Lymphocytes/100 leukocytes in Blood by Automated count20.5-60.0[facility]'S HospitalMCH Auto (RBC) [Entitic mass]on 22-77-8260ZWH (RBC) [Entitic mass]MCH [Entitic mass] by Automated count 26.7-34.0[facility]'S HospitalMCHC Auto (RBC) [Mass/Vol]on 79-60-1749DAZC (RBC) [Mass/Vol]MCHC [Mass/volume] by Automated count29.9-35.2 [facility] HospitalMCV Auto (RBC) [Entitic vol]on 45-45-8792QUP (RBC) [Entitic vol]MCV [Entitic volume] by Automated count81.0-99.0[facility] HospitalMonocytes Auto (Bld) [#/Vol]on 95-42-3383Qwtjhbnla (Bld) [#/Vol]Automated blood monocyte count0.3-0.8[facility] Monocytes/100 WBC Auto (Bld)on 03-31-1646Wzxrmctua/100 WBC (Bld)Automated monocyte %1.7-12.0[facility]S HospitalNeutrophils Auto (Bld) [#/Vol]on 79-78-4593Sfcllkjcyrk (Bld) [#/Vol]Neutrophils [#/volume] in Blood by Automated count1.4-6.5FRiverview Health InstituteNeutrophils/100 WBC Auto (Bld)on 93-84-8189Ibobzcnkvcb/100 WBC (Bld)Automated neutrophil %43.0-75.0 [facility] HospitalNo Panel Informationon 96-41-9519Laylilvsdjh # (Auto)0.1 10 3/uL0.0-0.7FRiverview Health InstituteImmature Granulocyte # (Auto)0.00 10 3/uL0.00-0.03[facility]'S HospitalPlatelet mean volume Auto (Bld) [Entitic vol]on 59-17-4065Trmzlsws mean volume (Bld) [Entitic vol] Platelet mean volume [Entitic volume] in Blood by Automated countLow9.5-13.5 [facility] HospitalPlatelets Auto (Bld) [#/Vol]on 11-30-2024 Platelets (Bld) [#/Vol]Platelets [#/volume] in Blood by Automated ipuim602-243 [facility] HospitalRBC Auto (Bld) [#/Vol]on 15-56-6328XTN (Bld) [#/Vol]Erythrocytes [#/volume] in Blood by Automated count4.20-5.40UC Medical Centererum or plasma albumin/globulin mass ratioon 11-30-2024 Albumin/Globulin [Mass ratio]Serum or plasma albumin/globulin mass ratio [facility] Centererum or plasma anion gap determinationon 22-94-6722Wluhk gap [Moles/Vol]Serum or plasma anion gap determinationDayton Children'S HospitalBasophils Auto (Bld) [#/Vol]on 99-64-1086Yebthsozv (Bld) [#/Vol]Automated basophil count0.0-0.1FRiverview Health Institute Basophils/100 WBC Auto (Bld)on 14-01-9939Hcwuezstk/100 WBC (Bld)Automated basophil %0.2-2.0[facility] HospitalCholesterol in LDL Calc [Mass/Vol]on 84-05-3411Xdssrmgaukt in LDL [Mass/Vol]Cholesterol in LDL [Mass/volume] in Serum or Plasma by calculationDayton Children'S Hospital Comment on above:<100 mg/dl BIMHOFZ463-024 mg/dl NEAR OR ABOVE JPUQFCE563-543 mg/dl BORDERLINE GBZH256-478 mg/dl HIGH>190 mg/dl VERY HIGHCholesterol in VLDL Calc [Mass/Vol]on 71-15-0885Gtcomeyommo in VLDL [Mass/Vol]Cholesterol in VLDL [Mass/volume] in Serum or Plasma by calculationDayton Children'S Hospital Eosinophils/100 WBC Auto (Bld)on 11-12-0227Larpvyirefz/100 WBC (Bld)Automated eosinophil %0.9-7.0[facility]'S HospitalErythrocyte distribution width Auto (RBC) [Ratio]on 87-21-8475Gbajrikjgby distribution width (RBC) [Ratio]Erythrocyte distribution width [Ratio] by Automated count11.0-15.0 [facility] HospitalEstimated glomerular filtration rate (GFR) non- Americanon 63-59-3366SCO/1.73 sq M.predicted among non-blacks MDRD (S/P/Bld) [Vol rate/Area]Estimated glomerular filtration rate (GFR) non->=60 mL/min/1.73m 2FRiverview Health InstituteGlobulin Calc (S) [Mass/Vol]on 81-04-9856Xlfftiit (S) [Mass/Vol]Serum globulin measurement by calculation (mass/volume)[facility]S HospitalHematocrit Auto (Bld) [Volume fraction]on 57-87-1477Pczyinigbp (Bld) [Volume fraction]Hematocrit [Volume Fraction] of Blood by Automated count36.0-48.0[facility]S HospitalHemoglobin [Mass/volume] in Bloodon 56-88-0207Swjfnewpqb (Bld) [Mass/Vol] Hemoglobin [Mass/volume] in Blood12.0-16.0[facility] Laboratory - Chemistry and Chemistry - challengeon 82-31-8211Hwsyold [Mass/Vol] 3.6 g/dL3.4-5.0[facility] HospitalALP [Catalytic activity/Vol]104 U/X06-468OjzonjploDayton Children'S HospitalALT [Catalytic activity/Vol]24 U/L 14-59Day[facility]'S HospitalAST [Catalytic activity/Vol]18 U/L15-37 [facility] HospitalBilirubin [Mass/Vol]0.3 mg/dL0.2-1.0[facility] HospitalCalcium [Mass/Vol]8.8 mg/dL8.5-10.1FRiverview Health InstituteChloride [Moles/Vol]106 mmol/V45-488DarbyblraDayton Children'S HospitalCholesterol [Mass/Vol]220 mg/dLHigh<=200[facility] Cholesterol in HDL [Mass/Vol]57 mg/iT83-56RbkgydyciDayton Children'S Hospital Comment on above:> or =60 mg/dl - LOW CARDIOVASCULAR RISK<40 mg/dl - HIGH CARDIOVASCULAR RISKCO2 [Moles/Vol]29.7 mmol/L21.0-32.0[facility] HospitalCreatinine [Mass/Vol]0.75 mg/dL0.55-1.02[facility] GFR/1.73 sq M.predicted MDRD (S/P/Bld) [Vol rate/Area]mL/min/{1.73_m2}>=60 mL/min/1.73m 2FRiverview Health InstituteGlucose [Mass/Vol]87 mg/hZ50-549 [facility] HospitalPotassium [Moles/Vol]3.8 mmol/L3.5-5.1FRiverview Health InstituteProtein [Mass/Vol]7.3 g/dL6.4-8.2FOhioHealth Nelsonville Health Centerodium [Moles/Vol]144 mmol/G320-080UpbbivbddDayton Children'S HospitalTriglyceride [Mass/Vol]100 mg/dL<=150Day[facility]'S HospitalTS Qn0.574 m[IU]/L0.358-3.740Day[facility]S HospitalUrea nitrogen [Mass/Vol]12.0 mg/dL7.0-18.0[facility] HospitalUrea nitrogen/Creatinine [Mass ratio]16.0 mg/mgDayton Children'S Hospital Laboratory - Hematology and Cell countson 85-37-4393Xenqyjba granulocytes/100 WBC (Bld)0.3 %0.0-0.5FRiverview Health InstituteLeukocytes [#/volume] corrected for nucleated erythrocytes in Blood by Automated counon 63-45-6910EHY corrected for nucl RBC Auto (Bld) [#/Vol]Leukocytes [#/volume] corrected for nucleated erythrocytes in Blood by Automated counLow4.0-11.0[facility]S HospitalLymphocytes Auto (Bld) [#/Vol]on 30-49-4092Lqddoytlmjj (Bld) [#/Vol]Lymphocytes [#/volume] in Blood by Automated countLow1.2-3.8[facility]S HospitalLymphocytes/100 WBC Auto (Bld)on 10-14-2024 Lymphocytes/100 WBC (Bld)Lymphocytes/100 leukocytes in Blood by Automated count 20.5-60.0[facility]'S HospitalMCH Auto (RBC) [Entitic mass]on 21-04-0976PKV (RBC) [Entitic mass]MCH [Entitic mass] by Automated count26.7-34.0 [facility]S HospitalMCHC Auto (RBC) [Mass/Vol]on 06-51-7589LXBN (RBC) [Mass/Vol]MCHC [Mass/volume] by Automated count29.9-35.2FRiverview Health InstituteMCV Auto (RBC) [Entitic vol]on 65-83-0427WRR (RBC) [Entitic vol] MCV [Entitic volume] by Automated count81.0-99.0[facility]S HospitalMonocytes Auto (Bld) [#/Vol]on 11-37-9818Ieszarpsu (Bld) [#/Vol]Automated blood monocyte countLow0.3-0.8[facility] HospitalMonocytes/100 WBC Auto (Bld)on 12-66-0646Lktqfaciy/100 WBC (Bld)Automated monocyte %1.7-12.0 [facility] HospitalNeutrophils Auto (Bld) [#/Vol]on 10-14-2024 Neutrophils (Bld) [#/Vol]Neutrophils [#/volume] in Blood by Automated count 1.4-6.5FRiverview Health InstituteNeutrophils/100 WBC Auto (Bld)on 63-44-8232Mlaiwiajnfm/100 WBC (Bld)Automated neutrophil %43.0-75.0[facility]S HospitalNo Panel Informationon 81-82-2171G-Fkpbtrz24.2 ng/mL Abnormal1.1-4.4FRiverview Health InstituteComment on above:C-Peptide reference interval is for fasting patients.Performed at: [facility] [id number] Director: Rafita Thomas PhD, Phone: [phone] # (Auto)0.1 10 3/uL0.0-0.7FRiverview Health InstituteImmature Granulocyte # (Auto)0.01 10 3/uL0.00-0.03[facility]S HospitalPlatelet mean volume Auto (Bld) [Entitic vol]on 19-34-4491Zsdowkra mean volume (Bld) [Entitic vol]Platelet mean volume [Entitic volume] in Blood by Automated countLow9.5-13.5FRiverview Health InstitutePlatelets Auto (Bld) [#/Vol]on 58-31-9465Aqirwarrw (Bld) [#/Vol]Platelets [#/volume] in Blood by Automated kxzen391-320JthqrvvibDayton Children'S HospitalRBC Auto (Bld) [#/Vol]on 45-38-3873RFG (Bld) [#/Vol]Erythrocytes [#/volume] in Blood by Automated count 4.20-5.40UC Medical Centererum or plasma albumin/globulin mass ratioon 74-25-5012Kzmbmwz/Globulin [Mass ratio]Serum or plasma albumin/globulin mass ratioUC Medical Centererum or plasma anion gap determinationon 42-82-7692Kcged gap [Moles/Vol]Serum or plasma anion gap determinationUC Medical Centererum or plasma glucose measurement 2 hours post 75 gm oral glucose (mass/volume)on 09-67-3374Htwdxea 2 Hr post 75 g glucose PO [Mass/Vol]Serum or plasma glucose measurement 2 hours post 75 gm oral glucose (mass/volume)[facility]'S HospitalComment on above:GLU FAST 87 (<95) Col: 10/14/24 0843 GLU 1HR 111 (<180) Col: 10/14/24 0947 GLU 2HR 81 (<155) Col: 10/14/24 1047Serum or plasma total cholesterol/high density lipoprotein (HDL) cholesterol mass hussain 10-14-2024 Cholesterol.total/Cholesterol in HDL [Mass ratio]Serum or plasma total cholesterol/high density lipoprotein (HDL) cholesterol mass ratDayton Children'S HospitalComment on above:3.3 - 4.4 LOW RISK4.4 - 7.1 AVERAGE RISK7.1 - 11.0 MODERATE RISK>11.0 HIGH RISKIGP,APTIMA HPV,AGE GDLNon 06-11-2024 AGE GDLN ACOG TESTINGNote.NOMS HealthcareComment on above:TESTS RESULT FLAG UNITS REF RANGE LAB Clinician Provided Cytology Information Source.............Vagina No. of containers..01 ThinPrep Vial Age Algo ACOG Nichole... FLAG LEGEND: L-Low Normal,H-High Normal,LL-Alert Low,HH-Alert High <-Panic Low,>-Panic High,A-Abnormal,AA-Critical Abnormal Performed at: 01 =[address] [address] Seble Lopez MD, HPV APTIMANegativeNegativeNOMS HealthcareComment on above:This nucleic acid amplification test detects fourteen high- risk HPV types (16,18,31,33,35,39,45,51,52,56,58,59,66,68) without differentiation. Performed at: =[address] [id number] Tree Warden: Seble Lopez MD, Phone: [phone] Performed at: [address] [id number] Tree Warden: Seble Lopez MD, Phone: [phone] IGP, APTIMA HPV, RFX 16/18,45Note.NOMS HealthcareComment on above:TESTS RESULT FLAG UNITS REF RANGE LAB DIAGNOSIS: 02 NEGATIVE FOR INTRAEPITHELIAL LESION OR MALIGNANCY. Specimen adequacy: 02 Satisfactory for evaluation. Performed by: [place], Clip Coater ([facility]) . 02 Note: Note 02 The Pap [...] <-Panic Low,>-Panic High,A-Abnormal,AA-Critical Abnormal Performed at: [address] [place] [address] Seble Lopez MD, SPATULA-ALONE VAGINA CLINISYNCNOMS [facility] papilloma virus 16+18+31+33+35+39+45+51+52+56+58+59+66+68 DNA [Presence] in Raul 28-88-2778ZWQ 16+18+31+33+35+39+45+51+52+56+58+59+66+68 DNA Probe+sig amp Ql (Cvx)Negative NegativeDayton Children'S HospitalComment on above:This nucleic acid amplification test detects fourteen high-risk HPV types (16,18,31,33,35,39,45,51,52,56,58,59,66,68)without differentiation.Performed at: = - Lab[address] [id number] Director: Seble Lopze MD, Phone: [phone] at: [address] [id number] Director: Selbe Lopez MD, Phone: [phone] Panel Informationon 02-10-6723ROF High Risk Other CommentNote. [facility]'S HospitalComment on above:TESTS RESULT FLAG UNITS REF RANGE LAB DIAGNOSIS: 02 NEGATIVE FOR INTRAEPITHELIAL LESION OR MALIGNANCY.Specimen adequacy: 02 Satisfactory forevaluation.Performed by: [place] Clip Coater ([facility]). 02Note: Note 02 The Pap smear is a screening test designed to aid in the detection of premalignant and malignant conditions of theuterine cervix. It is not a diagnostic procedure [...] Low,HH-Alert High <-Panic Low,>-Panic High,A-Abnormal,AA-Critical Abnormal Performed at:[address] [place] [address] Seble Lopez MD, Ityxfbdka Lab Test Patient AgeNote.[facility]'S HospitalComment on above:TESTS RESULT FLAG UNITS REF RANGE LAB Clinician Provided Cytology Information Source.............Vagina No. of containers..01 ThinPrep VialAge Meño PERSON Nichole... 3065 FLAG LEGEND: L- Low Normal,H-High Normal,LL-Alert Low,HH-Alert High <-Panic Low,>-Panic High,A-Abnormal,AA-Critical Abnormal Performed at:01 =[address] [address] Seble Lopez MD, Pgbzyjgmr Auto (Bld) [#/Vol]on 82-68-6030Djufvtbrh (Bld) [#/Vol]0.0 10 3/uL0.0-0.1FRiverview Health InstituteBasophils/100 WBC Auto (Bld)on 67-48-5386Dulkjizmi/100 WBC (Bld)1.2 %0.2-2.0[facility] HospitalCholesterol in LDL Calc [Mass/Vol]on 86-97-7449Rudzhntjltx in LDL [Mass/Vol]143.0 mg/dLDayton Children'S HospitalComment on above:<100 mg/dl OLKDAMZ479-772 mg/dl NEAR OR ABOVE MPIZXCZ998-283 mg/dl BORDERLINE NGAC800-209 mg/dl HIGH>190 mg/dl VERY HIGHCholesterol in VLDL Calc [Mass/Vol]on 17-10-1778Xlwyyfjztbv in VLDL [Mass/Vol]14.4 mg/dLDayton Children'S HospitalEosinophils/100 WBC Auto (Bld)on 89-05-6493Onrxrxvadhu/100 WBC (Bld)1.2 % 0.9-7.0[facility]'S HospitalErythrocyte distribution width Auto (RBC) [Ratio]on 37-96-7610Qvlwgbwwjfi distribution width (RBC) [Ratio]11.9 % 11.0-15.0[facility] HospitalEstimated glomerular filtration rate (GFR) non- Americanon 78-50-0669TSQ/1.73 sq M.predicted among non-blacks MDRD (S/P/Bld) [Vol rate/Area]mL/min/{1.73_m2}>=60Day[facility]'S HospitalGlobulin Calc (S) [Mass/Vol]on 50-67-7498Yjwzxzlg (S) [Mass/Vol]4.2 g/dL [facility] HospitalGlucose mean value [Mass/volume] in Blood Estimated from glycated hemoglobinon 44-59-0848Kndsbwe glucose Estimated from glycated hemoglobin (Bld) [Mass/Vol]105 mg/dLDayton Children'S Hospital Hematocrit Auto (Bld) [Volume fraction]on 42-27-6670Pznpdvlxxz (Bld) [Volume fraction]33.4 %Low36.0-48.0[facility]S HospitalHemoglobin [Mass/volume] in Bloodon 49-01-2556Kuyojtwtgi (Bld) [Mass/Vol]11.1 g/dLLow 12.0-16.0[facility] HospitalLaboratory - Chemistry and Chemistry - challengeon 27-43-0818Wgeabbq [Mass/Vol]3.0 g/dLLow3.4-5.0[facility] HospitalALP [Catalytic activity/Vol]93 U/N25-189EghzpaqrvDayton Children'S HospitalALT [Catalytic activity/Vol]24 U/L61-04UcgpfhgtnDayton Children'S Hospital AST [Catalytic activity/Vol]22 U/M61-48BdvpotwsiDayton Children'S Hospital Bilirubin [Mass/Vol]0.6 mg/dL0.2-1.0[facility] HospitalCalcium [Mass/Vol]9.0 mg/dL8.5-10.1FRiverview Health InstituteChloride [Moles/Vol] 104 mmol/Z48-550WlcmgllefDayton Children'S HospitalCholesterol [Mass/Vol]212 mg/dL High<=200Day[facility]S HospitalCholesterol in HDL [Mass/Vol]55 mg/dL 40-60Day[facility]'S HospitalComment on above:> or =60 mg/dl - LOW CARDIOVASCULAR RISK<40 mg/dl - HIGH CARDIOVASCULAR RISKCO2 [Moles/Vol]30.3 mmol/L21.0-32.0[facility] HospitalCreatinine [Mass/Vol]0.80 mg/dL 0.55-1.02[facility]S HospitalGFR/1.73 sq M.predicted MDRD (S/P/Bld) [Vol rate/Area]mL/min/{1.73_m2}>=60Day[facility]S HospitalGlucose [Mass/Vol]103 mg/sR56-230LjkyhrbdwDayton Children'S HospitalPotassium [Moles/Vol] 3.6 mmol/L3.5-5.1FRiverview Health InstituteProtein [Mass/Vol]7.2 g/dL 6.4-8.2FOhioHealth Nelsonville Health Centerodium [Moles/Vol]143 mmol/W617-130 [facility] HospitalTriglyceride [Mass/Vol]72 mg/dL<=150Day[facility]'S HospitalUrea nitrogen [Mass/Vol]15.0 mg/dL7.0-18.0[facility]S HospitalUrea nitrogen/Creatinine [Mass ratio]18.8 mg/mgDayton Children'S HospitalLaboratory - Hematology and Cell countson 65-47-2158JgC8d (Bld) [Mass fraction]5.3 %4.5-6.2FRiverview Health InstituteComment on above:ADA RECOMMENDED LIMIT 4.0 - 6.0ADA THERAPEUTIC TARGET < 7.0ACTION SUGGESTED> 7.0Immature granulocytes/100 WBC (Bld)0.0 %0.0-0.5FRiverview Health InstituteLeukocytes [#/volume] corrected for nucleated erythrocytes in Blood by Automated counon 94-23-8620IOE corrected for nucl RBC Auto (Bld) [#/Vol]3.3 10 3/uLLow4.0-11.0[facility]'S HospitalLymphocytes Auto (Bld) [#/Vol]on 16-57-6493Tbnodxndhlf (Bld) [#/Vol]1.1 10 3/uLLow1.2-3.8 [facility] HospitalLymphocytes/100 WBC Auto (Bld)on 03-27-2024 Lymphocytes/100 WBC (Bld)32.4 %20.5-60.0[facility] HospitalH Auto (RBC) [Entitic mass]on 50-25-8426IQT (RBC) [Entitic mass]31.3 pg26.7-34.0 [facility] HospitalMCHC Auto (RBC) [Mass/Vol]on 81-56-1788KPLK (RBC) [Mass/Vol]33.2 g/dL29.9-35.2FRiverview Health InstituteMCV Auto (RBC) [Entitic vol]on 10-28-0001SBJ (RBC) [Entitic vol]94.1 fL81.0-99.0[facility]S HospitalMonocytes Auto (Bld) [#/Vol]on 04-78-0800Lcbwmwkzq (Bld) [#/Vol]0.4 10 3/uL0.3-0.8[facility]S HospitalMonocytes/100 WBC Auto (Bld)on 79-71-1691Nnopjpzit/100 WBC (Bld)10.6 %1.7-12.0[facility]'S HospitalNeutrophils Auto (Bld) [#/Vol]on 58-20-9021Zysrwkvnvqt (Bld) [#/Vol]1.8 10 3/uL1.4-6.5FRiverview Health InstituteNeutrophils/100 WBC Auto (Bld)on 74-65-5089Hvdaxmfgorx/100 WBC (Bld)54.6 %43.0-75.0[facility]S HospitalNo Panel Informationon 04-74-5429Nfpmqikjqma # (Auto)0.0 10 3/uL0.0-0.7FRiverview Health InstituteImmature Granulocyte # (Auto)0.00 10 3/uL0.00-0.03[facility]'S HospitalPlatelet mean volume Auto (Bld) [Entitic vol]on 82-39-8545Qhlytgtf mean volume (Bld) [Entitic vol]8.8 fL Low9.5-13.5FRiverview Health InstitutePlatelets Auto (Bld) [#/Vol]on 24-76-8944Yotkukzxp (Bld) [#/Vol]393 10 3/eH968-506FwmcpdjotDayton Children'S HospitalRBC Auto (Bld) [#/Vol]on 02-25-0074YKB (Bld) [#/Vol]3.55 10 6/uLLow 4.20-5.40[facility] Centererum or plasma albumin/globulin mass ratioon 66-44-4158Rxmkxyu/Globulin [Mass ratio]0.7 {ratio}[facility] Medical Centererum or plasma anion gap determinationon 73-81-7546Tjquz gap [Moles/Vol]12.3 mmol/LFOhioHealth Nelsonville Health Centererum or plasma total cholesterol/high density lipoprotein (HDL) cholesterol mass hussain 03-27-2024 Cholesterol.total/Cholesterol in HDL [Mass ratio]3.9 {ratio}[facility] Children'S HospitalComment on above:3.3 - 4.4 LOW RISK4.4 - 7.1 AVERAGE RISK7.1 - 11.0 MODERATE RISK>11.0 HIGH RISKFibrin D-dimer [Presence] in Platelet poor plasma by Latex agglutinationon 63-65-9450Tgznue D-dimer LA Ql (PPP)1.05 mg/L FEUHigh<=0.59Day[facility] Children'S HospitalComment on above:RESULTS CALLED TO MARYSE SINGLETON RN @BY Natalie Penny at 0123Increases [...] thrombolyticor anticoagulant therapy, stress, and generalizedhospitalization. DIHYDROTESTOSTERONEon 71-37-9728Yqmgumvjhbisijeeuoc98 ng/dLSelect Medical Cleveland Clinic Rehabilitation Hospital, BeachwoodComment on above:Result Comment: This test was developed and its performance characteristics determined by [facility]. It has not been cleared or approved by the Food and Drug Administration. Reference Range: Adult Female: 4 - 22Performed By: #### DHT #### [facility] [address] [place] [address] Dr. Manny EllerTESTOSTERONE, FREE,DIRECT, TOTALon 29-50-2959Wpjr Testosterone(Direct)1.7 pg/mLNormal0.0-4.2The [facility] HospitalComment on above: Result Comment: Performed at: BNPerformed By: #### TESTFRD #### [facility] [address] [place] [address] Dr. Manny EllerTestosterone [Mass/Vol]32 ng/dLNormal4-50[facility] Comment on above:Result Comment: Performed at: CBPerformed By: #### TESTFRD #### [facility] [address] [place] [address] Dr. Manny TadeoEA-SULFATEon 44-48-6515JIEF-Xdpvrke913.0 ug/xXHqwjmw76.2-243.7 [facility] HospitalComment on above:Performed By: #### DHEASUL #### [facility] [address] [place] [address] Dr. Manny EllerMG MAMM SCREEN 3D ELOY CADon 13-70-4441FC MAMM SCREEN 3D ELOY CAD Patient: JENNIFER ZAMORA Exam Date: 11/30/2022 : 1970 Gender:F Ordering : DR ARMANDO MARTINEZ . Admission #: [id number] Family : Order #: [id number] CLICK HERE TO VIEW EXAM RADIOLOGY REPORT [...] Treatments None Family Cancers None LOCATION: [facility] BREAST COMPOSITION: Scattered areas fibroglandular [...] by: Carlos Gabriel MD on 11/30/2022 at 13:57[facility] COVID/FLU RT-PCRon 91-85-2991YGPB-CoV-2 (COVID-19) RNA BOB+probe Ql (Unsp spec) PositiveOverlake Hospital Medical Center LiveClips Other COVID/FLU RT-PCRNegativeOverlake Hospital Medical Center LiveClips Other CORTISOLon 72-83-7151Bjasliae0.8 ug/dLNoLima Memorial HospitalComment on above:Result Comment: Cortisol AM 6.2 - 19.4 Cortisol PM 2.3 - 11.9Performed By: #### DHT #### [facility] [address] [place] [address] Dr. Manny EllerTESTOSTERONE, FREE,DIRECT, TOTALon 17-63-5122Gzgv Testosterone(Direct)<0.4Kmiczx0.0-4.2[facility] HospitalComment on above: Result Comment: Performed at: BNPerformed By: #### TESTFRD #### [facility] [address] [place] [address] Dr. Manny EllerTestosterone [Mass/Vol]ng/dLCritically low4-50[facility] HospitalComment on above:Result Comment: Performed at: CBPerformed By: #### TESTFRD #### [facility] [address] [place] [address] Dr. Manny EllerCORTISOLon 62-75-6695Ftzxcqqy6.5 ug/dLSelect [facility] [place] Comment on above:Result Comment: Cortisol AM 6.2 - 19.4 Cortisol PM 2.3 - 11.9Performed By: #### CORTISO #### [facility] [address] [place] [address] Dr. Manny TadeoEA-SULFATEon 53-64-2215KOVC-Btmpdvv04.2 ug/dLCritically low 41.2-243.7ThHolzer Health SystemComment on above:Performed By: #### DHEASUL #### [facility] [address] [place] [address] Dr. Manny GarciaTRADIOLon 48-79-5717Xxzpjuljh23.9 pg/mLNLutheran HospitalComment on above:Result Comment: Adult Female: Follicular phase 12.5 - 166.0 Ovulation phase 85.8 - 498.0 Luteal phase 43.8 - 211.0 Postmenopausal <6.0 - 54.7 1st trimester 215.0 - >4300.0 [place] ECLIA methodologyPerformed By: #### CMP, LIPID #### [facility] [address] [place] [address] Dr. Manny GarciaTRONEon 39-06-8093Rmzdpct, Serum<6NormalThHolzer Health System Comment on above:Result Comment: Range Adult (Premenopausal) 27 - 231 Menstrual Cycle (1-10 days) 19 - 149 Menstrual Cycle (11-20 days) 32 - 176 Menstrual Cycle (21-30 days) 37 - 200 Adult (Postmenopausal) 0 - 125Performed By: #### ESTRONE #### [facility] [address] [place] [address] Dr. Manny EllerPROGESTERONEon 27-25-9105Ukoktohxazzt<0.1NLutheran HospitalComment on above:Result Comment: Follicular phase 0.1 - 0.9 Luteal phase 1.8 - 23.9 Ovulation phase 0.1 - 12.0 First trimester 11.0 - 44.3 Second trimester 25.4 - 83.3 Third trimester 58.7 - 214.0 Postmenopausal 0.0 - 0.1Performed By: #### CMP, LIPID #### [facility] [address] [place] [address] Dr. Manny LukeX HORMONE-BINDING GLOBULINon 10-63-1793Zut Horm Binding Glob, Serum55.9 nmol/DUoskmi74.3-125.0The [facility] Hospitalment on above:Performed By: #### SEXHBG #### [facility] [address] [place] [address] Dr. Manny EllerGLYCOHEMOGLOBIN A1Con 34-42-1002MCQ RECOMMENDATIONSEE BELOWNormal The [facility] HospitalComment on above:Result Comment: ADA RECOMMENDED LIMIT 4.0 - 6.0 ADA THERAPEUTIC TARGET < 7.0 ACTION SUGGESTED > 7.0Performed By: #### DHT #### [facility] [address] [place] [address] Dr. Manny EllerGlucose [Mass/Vol]108 mg/dLNoLima Memorial HospitalComment on above:Performed By: #### DHT #### [facility] [address] [place] [address] Dr. Manny EllerHbA1c (Bld) [Mass fraction]5.4 %Normal4.5-6.2The [facility] HospitalComment on above:Performed By: #### DHT #### [facility] [address] [place] [address] Dr. Manny EllerPOTASSIUMon 90-18-1107Medpxoekx [Moles/Vol]3.6 mmol/LNormal 3.5-5.1[facility] on above:Performed By: #### CMP, LIPID #### [facility] [address] [place] [address] Dr. Manny EllerVITAMIN D 25 OHon 69-41-1587KRM D 25-OH37.3 ng/mLNormalThe [facility] HospitalComsturgis hospital on above:Performed By: #### DHT #### [facility] [address] [place] [address] Dr. Manny Fish D RANGES[place] BELOWSelect Medical [facility] Clinic Rehabilitation Hospital, BeachwoodComsturgis hospital on above: Result Comment: <20 ng/mL Vit D deficient 20 - <30 ng/mL Vit D insufficient 30 - 100 ng/mL Vit D sufficient >100 ng/mL Potential ToxicityPerformed By: #### DHT #### [facility] [address] [place] [address] Dr. Manny Yip AUTO DIFFon 80-91-5429QDER #0.1 103/ulNormal0.0-0.1The [facility] HospitalComment on above:Performed By: #### CMP, LIPID #### [facility] [address] [address] [address] Manny EllerBasophils/100 WBC (Bld)1.1 %Normal0.2-2.0[facility] Comment on above:Performed By: #### CMP, LIPID #### [facility] [address] [address] [address] Manny Weinstein #0.1 103/ulNormal0.0-0.7The [facility] HospitalComment on above: Performed By: #### CMP, LIPID #### [facility] [address] [place] [address] Dr. Manny Urbanoosinophils/100 WBC (Bld)1.1 %Normal0.9-7.0[facility] Comment on above:Performed By: #### CMP, LIPID #### [facility] [address] [address] [address] Manny Urbanorythrocyte distribution width (RBC) [Ratio]12.2 %Ydyjqw15.0-15.0 The [facility] HospitalComment on above:Performed By: #### CMP, LIPID #### [facility] [address] [place] [address] Dr. Manny EllerHematocrit (Bld) [Volume fraction]42.9 %Ejqlxj74.0-48.0The [facility] HospitalComment on above:Performed By: #### CMP, LIPID #### [facility] [address] [place] [address] Dr. Manny EllerHemoglobin (Bld) [Mass/Vol]15.0 g/lYXoatui26.0-16.0The [facility] HospitalComment on above:Performed By: #### CMP, LIPID #### [facility] [address] [place] [address] Dr. Manny Esparza #0.01 10e3/ulNormal0.00-0.03The [facility] HospitalComment on above:Performed By: #### CMP, LIPID #### [facility] [address] [place] [address] Dr. Manny Esparza %0.2 %Normal0.0-0.5The [facility] HospitalComment on above: Performed By: #### CMP, LIPID #### [facility] [address] [place] [address] Dr. Manny Calderon #1.3 103/ulNormal1.2-3.8The [facility] HospitalComment on above:Performed By: #### CMP, LIPID #### [facility] [address] [place] [address] Dr. Manny Hunterhocytes/100 WBC (Bld)28.4 %Pmiaja22.5-60.0The [facility] HospitalComment on above:Performed By: #### CMP, LIPID #### [facility] [address] [place] [address] Dr. Manny MorelosUAL DIFF REQNONormalThe [facility] HospitalComment on above: Performed By: #### CMP, LIPID #### [facility] [address] [place] [address] Dr. Manny Rodriguez (RBC) [Entitic mass]32.3 kmNfrfwo40.7-34.0The [facility] HospitalComment on above:Performed By: #### CMP, LIPID #### [facility] [address] [place] [address] Dr. Manny Jimenez (RBC) [Mass/Vol]35.0 g/fUArjxdv62.9-35.2The [facility] HospitalComment on above:Performed By: #### CMP, LIPID #### [facility] [address] [place] [address] Dr. Manny Jimenez (RBC) [Entitic vol]92.5 iZQmvyfa39.0-99.0The [facility] HospitalComment on above:Performed By: #### CMP, LIPID #### [facility] [address] [place] [address] Dr. Manny Lockhart #0.3 103/ulNormal0.3-0.8The [facility] HospitalComment on above:Performed By: #### CMP, LIPID #### [facility] [address] [place] [address] Dr. Manny Baileyocytes/100 WBC (Bld)7.0 %Normal1.7-12.0[facility] Comment on above:Performed By: #### CMP, LIPID #### [facility] [address] [place] [address] Dr. Manny Membreno #2.8 103/ulNormal1.4-6.5The [facility] HospitalComment on above:Performed By: #### CMP, LIPID #### [facility] [address] [place] [address] Dr. Manny Berriosutrophils/100 WBC (Bld)62.2 %Birolm86.0-75.0The [facility] HospitalComment on above:Performed By: #### CMP, LIPID #### [facility] [address] [place] [address] Dr. Manny De La Cruzlet mean volume (Bld) [Entitic vol]9.6 fLNormal9.5-13.5The [facility] HospitalComment on above:Performed By: #### CMP, LIPID #### [facility] [address] [place] [address] Dr. Manny EllerPLT322 103/yxUgpenx014-847Vkx [facility] HospitalComment on above: Performed By: #### CMP, LIPID #### [facility] [address] [place] [address] Dr. Manny EllerRBC4.64 106/ulNormal4.20-5.40The [facility] HospitalComment on above:Performed By: #### CMP, LIPID #### [facility] [address] [place] [address] Dr. Manny EllerWBC4.6 103/ulNormal4.0-11.0The [facility] HospitalComment on above: Performed By: #### CMP, LIPID #### [facility] [address] [address] [address] Manny PadillaID PROFILEon 71-01-4834LCEI-HDL RATIO NORMSCincinnati VA Medical CenterComment on above:Result Comment: 3.3 - 4.4 LOW RISK 4.4 - 7.1 AVERAGE RISK 7.1 - 11.0 MODERATE RISK >11.0 HIGH RISKPerformed By: #### CMP, LIPID #### [facility] [address] [address] [address] Manny EllerCholesterol [Mass/Vol]171 mg/dLNormal<=200[facility] Comment on above:Performed By: #### CMP, LIPID #### [facility] [address] [place] [address] Dr. Manny EllerCholesterol in HDL [Mass/Vol]49 mg/sDRmrvuv92-25XmvHighland District HospitalComment on above:Performed By: #### CMP, LIPID #### [facility] [address] [place] [address] Dr. Manny EllerCholesterol in LDL [Mass/Vol]103.4 mg/dLSelect Medical Cleveland Clinic Rehabilitation Hospital, BeachwoodComment on above:Performed By: #### CMP, LIPID #### [facility] [address] [place] [address] Dr. Manny Rodriguezesterozzie.total/Cholesterol in HDL [Mass ratio]3.5 {ratio} NormalHighland District HospitalComment on above:Performed By: #### CMP, LIPID #### [facility] [address] [place] [address] Dr. Manny Pepper NORMAL> or = 60 mg/dl - LOW CARDIOVASCULAR RISK <40 mg/dl - HIGH CARDIOVASCULAR RISKSelect Medical Cleveland Clinic Rehabilitation Hospital, BeachwoodComment on above:Performed By: #### CMP, LIPID #### [facility] [address] [place] [address] Dr. Manny EllerLDL CALC NORMALSEE [facility] Health Barberton CampusComment on above:Result Comment: <100 mg/dl OPTIMAL 100 - 129 mg/dl NEAR OR ABOVE OPTIMAL 130 - 159 mg/dl BORDERLINE HIGH 160 - 189 mg/dl HIGH >190 mg/dl VERY HIGH Performed By: #### CMP, LIPID #### [facility] [address] [address] [address] Manny EllerTriglyceride [Mass/Vol]93 mg/dLNormal<=150[facility] Comment on above:Performed By: #### CMP, LIPID #### [facility] [address] [address] [address] Manny EllerVLDL CALC18.6 mg/dLNormalThe [facility] HospitalComment on above: Performed By: #### CMP, LIPID #### [facility] [address] [place] [address] Dr. Manny EllerPROAguila 14(COMP METB)on 08-16-4344Kickbzj [Mass/Vol]3.8 g/dLNormal 3.4-5.0The [facility] HospitalComment on above:Performed By: #### CMP, LIPID #### [facility] [address] [place] [address] Dr. Manny EllerAlbumin/Globulin [Mass ratio]1.1 {ratio}NormalThe [facility] HospitalComment on above:Performed By: #### CMP, LIPID #### [facility] [address] [place] [address] Dr. Manny Funes [Catalytic activity/Vol]73 U/VDbitru86-015Hxp [facility] HospitalComment on above:Performed By: #### CMP, LIPID #### [facility] [address] [place] [address] Dr. Manny Meredith [Catalytic activity/Vol]39 U/VGdirkk16-12Dyv [facility] HospitalComment on above:Performed By: #### CMP, LIPID #### [facility] [address] [place] [address] Dr. Manny Gordon gap [Moles/Vol]11.6 mmol/LNormalThe [facility] Comment on above:Performed By: #### CMP, LIPID #### [facility] [address] [place] [address] Dr. Manny Edwards [Catalytic activity/Vol]23 U/XOgptwm05-85Eus [facility] HospitalComment on above:Performed By: #### CMP, LIPID #### [facility] [address] [address] [address] Manny EllerBilirubin [Mass/Vol]0.7 mg/dLNormal0.2-1.0[facility] Comment on above:Performed By: #### CMP, LIPID #### [facility] [address] [place] [address] Dr. Manny EllerCalcium [Mass/Vol]9.3 mg/dLNormal8.5-10.1[facility] Comment on above:Performed By: #### CMP, LIPID #### [facility] [address] [place] [address] Dr. Manny EllerChloride [Moles/Vol]101 mmol/URbnwze49-208Vrg [facility] Comment on above:Performed By: #### CMP, LIPID #### [facility] [address] [place] [address] Dr. Manny EllerCO2 [Moles/Vol]31.2 mmol/LKyakea62.0-32.0The [facility] Comment on above:Performed By: #### CMP, LIPID #### [facility] [address] [place] [address] Dr. Manny EllerCreatinine [Mass/Vol]0.87 mg/dLNormal0.55-1.02The [facility] HospitalComment on above:Performed By: #### CMP, LIPID #### [facility] [address] [place] [address] Dr. Manny UrbanoGFR-AF FAROESE>60Normal>=60The [facility] HospitalComment on above:Performed By: #### CMP, LIPID #### [facility] [address] [place] [address] Dr. Manny UrbanoGFR-NON AF FAROESE>60Normal>=60The [facility] HospitalComment on above:Performed By: #### CMP, LIPID #### [facility] [address] [place] [address] Dr. Manny EllerGlobulin (S) [Mass/Vol]3.6 g/dLNormKettering Health DaytonComment on above:Performed By: #### CMP, LIPID #### [facility] [address] [place] [address] Dr. Manny EllerGlucose [Mass/Vol]124 mg/dLCritically qhfh44-233Pbl [facility] HospitalComment on above:Performed By: #### CMP, LIPID #### [facility] [address] [place] [address] Dr. Manny EllerPotassium [Moles/Vol]2.8 mmol/LCritically low3.5-5.1The [facility] HospitalComment on above:Performed By: #### CMP, LIPID #### [facility] [address] [place] [address] Dr. Manny EllerProtein [Mass/Vol]7.4 g/dLNormal6.4-8.2[facility] Comment on above:Performed By: #### CMP, LIPID #### [facility] [address] [place] [address] Dr. Manny EllerSodium [Moles/Vol]141 mmol/BBvgzaa256-315Agp [facility] Comment on above:Performed By: #### CMP, LIPID #### [facility] [address] [place] [address] Dr. Manny EllerUrea nitrogen [Mass/Vol]15.0 mg/dLNormal7.0-18.0The [facility] HospitalComment on above:Performed By: #### CMP, LIPID #### [facility] [address] [place] [address] Dr. Manny EllerUrea nitrogen/Creatinine [Mass ratio]17.2 mg/mgNoLima Memorial HospitalComment on above:Performed By: #### CMP, LIPID #### [facility] [address] [place] [address] Dr. Manny Marshall Visit (Cardiology)on 27-49-8139Lbnrgt-up visit Diagnoses/Problems Assessed Palpitations (785.1) (R00.2) NSVT [...] Recorded: 18Jul2022 01:41PM Heart Rate68, L Radial Yduvzwls595, LUE, Sitting Iwdkooiew08, LUE, Sitting Height5 ft 7 in Jpeovb946 lb 4 oz BMI Kyfrjqwyyu35.54 kg/m2 BSA Ca (more content not included)...NormalUH TouchworksTobacco Screening.on 70-73-1244Gnncu depression screening assessmentNo-[facility] [employer] 250 DO Work Phone: Tobacco use status CPHSb) NoMP-[facility] Exavio 250 DO Work Phone: CT HEAD WO CONon 53-58-3570ZM HEAD WO CONEXAMINATION: CT HEAD WO CON HISTORY: Headache COMPARISON: [...] authenticated by: ADAIR SCHMITT Date: 2022-07-15 11:31 NormalThe [facility] NECK WO W CONon 95-34-6851NBG NECK WO W CON EXAMINATION: CTA NECK [...] Electronically authenticated by: CARLOS RUBI Date: 2022-07-15 14:[address] [place], [place] [address]Urinalysis - AUTOMATEDon 01-34-5290Ucbjfxrfer (U)clearNoCollegeFrog Other Bilirubin Ql (U)NegativeNogis.to [employer] Other Color (U)orange yellowNogis.to [employer] Other Glucose Ql (U)100Nort [employer] Other Hemoglobin Ql (U)smallNosaint john's aur[facility] [employer] Other Ketones Ql (U)traceNosaint john's aurora community hospital [employer] Other Nitrite Ql (U)PositiveNoCollegeFrog Other pH (U)6.5 [pH][place] [employer] Other Protein Ql (U)traceNosaint john's aurora [facility] hospital [employer] Other Specific gravity (U) [Rel density]1.025[place] [employer] Other Urobilinogen (U) [Mass/Vol]1.0 mg/dLWoodland Free[employer] Other Urinalysis - AUTOMATEDWoodland Free[employer] Other Office Visit (Cardiology)on 62-70-0166Aajdwv-up visit Diagnoses/Problems Assessed NSVT (nonsustained ventricular tachycardia) [...] signing my name below, I, Sudhir Mendez LPNScribe, attest that this documentation has been prepared under the direction and in the presence of Dr. Joao Ramírez MD. All medical record entries made by the Scribe were at my direction and personally dictated by me. Ihave reviewed the chart and agree that the [...] Vital Signs Recorded: 09Nov2021 02:37PMRecorded: 09Nov2021 02:32PM Iowztkhx829, LUE, Uowypsb141, LUE, Sitting Iaxfiuzfc77, LUE, Rouxgdc50, LUE, Sitting Heart Rate69, L Brachial Artery Height5 ft 7 in Ybhibx638 lb BMI Sfobfyzdcg57.96 kg/m2 BSA Calculated2.17 Tobacco Useb) No Fall Screeningc) Not medical (more content not included)...NormalUH TouchTailor Made Oil Tobacco Screening.on 96-67-9767Yzfg risk assessmentc) Not medically indicatedSandstone Critical Access Hospital-Anthony 250 DO Work Phone: Tobacco use status CPHSb) NoMMurray County Medical Center- Anthony 250 DO Work Phone: COVID Quick Testingon 47-70-3198MscfuqRvdihtcvAkbrd FreeDrive Other NO CARDIAC STRESS/REST INJECTIONon 28-65-7425AVD CARDIAC STRESS/REST INJECTIONMRN: [id number] Patient Name: JENNIFER ZAMORA STUDY: MYOCARDIAL PERFUSION STRESS TEST WITH EXERCISE [facility], [address] [place] [address] Provider: Joao Ramírez MD PCP: Dr. Beatrice Das Supervising provider: Joao Ramírez MD INDICATION: Abnormal EKG; Palpitations NSVT HISTORY: Gender: F; Age: 50 y/o ; Height: 170.18 cm; Weight: 860.3753558 kg. HTN; Palpitations; SOB; Denies smoking. COMPARISON: No comparison. ACCESSION NUMBER(S): [id number]; [id number]; [id number] ORDERING CLINICIAN: JOAO RAMÍREZ TECHNIQUE: TWO DAY [...] for comparison. Electronically signed by: JOAO RAMÍREZ MDThomas Jefferson University Hospital Vital Signs Date TimeVital SignValuePerforming OzorbgfhnPxiymncs95-80-0295 13:59-0400Body plivpa806.18 cmBenjamin Ball DO Work Phone: [facility]09-05-2025 13:59-0400 Body mass index (BMI) [Ratio]25.7 kg/t3Mqwizewx Ball DO Work Phone: [facility]09-05-2025 13:59-0400 Body olxlyhpksbu78.9 [degF]Grady Ball DO Work Phone: [facility]09-05-2025 13:59-0400 Body jjujjm41.55 kgBenjamin Ball DO Work Phone: [phone] [place], [place] [address]109-05-2025 13:59-0400 Diastolic blood cufrjyom09 mm[Hg]Grady Ball DO Work Phone: [phone] [place], [place] 46[address]109-05-2025 13:59-0400 Heart rate97 /minBenjamin Ball DO Work Phone: [phone])[address] [place], [place] 46[address]109-05-2025 13:59-0400 Respiratory rate18 /minBenjamin Ball DO Work Phone: [phone] [place], [place] 46[address]109-05-2025 13:59-0400 SaO2% (BldA) [Mass fraction]99 %Grady Ball DO Work Phone: [phone] [place], [place] 46[address]109-05-2025 13:59-0400 Systolic blood zgsdooji980 mm[Hg]Grady Ball DO Work Phone: [phone] [place], [place] 46[address]108-25-2025 08:40-0400 Body ddbdmy592.18 cmBenjamin Ball DO Work Phone: [phone] [place], [place] 46[address]108-25-2025 08:40-0400 Body mass index (BMI) [Ratio]26 kg/x8Kvyijqkp Ball DO Work Phone: [phone] [place], [place] 46[address]108-25-2025 08:40-0400 Body yhoepb92.52 kgBenjamin Ball DO Work Phone: [phone] [place], [place] 46[address]108-25-2025 08:40-0400 Diastolic blood gtxqjziw62 mm[Hg]Grady Ball DO Work Phone: [phone] [place], [place] 46[address]108-25-2025 08:40-0400 Heart rate76 /minBenjamin Ball DO Work Phone: [phone])[address] [place], [place] 46[address]108-25-2025 08:40-0400 Respiratory rate12 /minBenjamin Ball DO Work Phone: [phone] [place], [place] 46[address]108-25-2025 08:40-0400 Systolic blood zgpuzhww225 mm[Hg]Grady Ball DO Work Phone: [phone]07-22-2025 14:43-0400 Body jzuwak399.18 cmBenjamin Ball DO Work Phone: [phone] [place], [place] 527[address]7-22-2025 14:43-0400 Body mass index (BMI) [Ratio]24.9 kg/v5Fusbttwd Ball DO Work Phone: [phone] [place], [place] 4611107-22-2025 14:43-0400 Body ainllozdola95.1 [degF]Grady Ball DO Work Phone: [phone] [place], [place] 46[address]107-22-2025 14:43-0400 Body cqwygu52.17 kgBenjamin Ball DO Work Phone: [phone] [place], [place] 46[address]107-22-2025 14:43-0400 Diastolic blood fkgxpeoi27 mm[Hg]Grady Ball DO Work Phone: [phone] [place], [place] 46[address]107-22-2025 14:43-0400 Heart rate86 /minBenjamin Ball DO Work Phone: [phone] [place], [place] 46[address]107-22-2025 14:43-0400 Respiratory rate14 /minBenjamin Ball DO Work Phone: [phone] [place], [place] 46[address]107-22-2025 14:43-0400 SaO2% (BldA) [Mass fraction]99 %Grady Ball DO Work Phone: [phone])[facility] [place], [place] [address]7-22-2025 14:43-0400 Systolic blood vtkbivge917 mm[Hg]Grady Ball DO Work Phone: 1(156)[facility]77[facility]02-26-2025 14:39-0500 Body .18 cmDayton Children'S Hospital02-26-2025 14:39-0500Body mass index (BMI) [Ratio]25.7 kg/t2UvbaplbrxDayton Children'S Hospital02-26-2025 14:39-0500Body hdqsbe20.44 kgDayton Children'S Hospital02-26-2025 14:39-0500Diastolic blood caixubmb54 mm[Hg][facility] 12-10-2024 14:39-0500Heart uhup428 /[facility] 12-10-2024 14:39-0500Respiratory rate12 /[facility] 12-10-2024 14:39-0500Systolic blood yhadejio684 mm[Hg][facility]02-19-2025 13:19-0500Respiratory rate18 /minStanley Orlop DO Work Phone: [facility]2025 10:30-0500Body gymrgzdgtyg02.7 [degF]Krish Orlop DO Work Phone: WSent[facility]02-19-2025 10:30-0500Diastolic blood zglmkemq35 mm[Hg]Krish Orlop DO Work Phone: Lduane [facility]02-19-2025 10:30-0500Heart rate99 /minStanley Orlop DO Work Phone: Bduane [facility]02-19-2025 10:30-3365ZyI6% (BldA) [Mass fraction]99 %Krish Orlop DO Work Phone: Hduane [facility]02-19-2025 10:30-0500Systolic blood sulraayr770 mm[Hg]Krish Orlop DO Work Phone: Gduane [facility]02-16-2025 21:15-0500Body ezijxx313.2 cmStanley Orlop DO Work Phone: Rduane [facility]02-16-2025 21:15-0500Body mass index (BMI) [Ratio]26.28 kg/f0Fiomnvr Orlop DO Work Phone: Uduane [facility]02-16-2025 21:15-0500Body .11 kgStanley Orlop DO Work Phone: Rduane [facility]01-07-2025 14:59-0500Body alawxs173.18 [facility] 14:59-0500Body mass index (BMI) [Ratio]26.3 kg/r7KmxvooimnDay[facility]'S [facility]01-07-2025 14:59-0500Body gnozrb97.2 kg[facility]01-07-2025 14:59-0500Diastolic blood ixwyorqc62 mm[Hg][facility] 10-21-2024 14:59-0500Diastolic blood xshyclvj46 mm[Hg][facility]01-07-2025 14:59-0500Heart rate80 /[facility] 10-21-2024 14:59-0500Respiratory rate12 /[facility] 10-21-2024 14:59-0500Systolic blood znjvpsga266 mm[Hg][facility]01-07-2025 14:59-0500Systolic blood jjyjeito568 mm[Hg][facility]08-30-2024 17:20-0400Body iikazu553.18 cmDay[facility]08-30-2024 17:20-0400Body mass index (BMI) [Ratio]24.1 kg/m2 [facility]08-30-2024 17:20-0400Body oypjbbrejkr57.1 [degF][facility]08-30-2024 17:20-0400Body vuiagh05.96 kg [facility]08-30-2024 17:20-0400Diastolic blood qhytcesq39 mm[Hg][facility]08-30-2024 17:20-0400Heart rate83 /min [facility]08-30-2024 17:20-0400Respiratory rate16 /min [facility]08-30-2024 17:20-3487HqO5% (BldA) [Mass fraction]99 %[facility]08-30-2024 17:20-0400Systolic blood otrgmwrd682 mm[Hg][facility]05-08-2023 16:30-0400 Body hvepmz598.18 cmBenRelevant Media Ball Other [facility] [employer] Other 05-08-2023 16:30-0400Body mass index (BMI) [Ratio] 25.12 kg/h2Wyheycuv Ball Other [employer] Other 05-08-2023 16:30-0400Body rpiwvi48.76 kgBenjamin Ball Other [employer] Other 05-08-2023 16:30-0400Diastolic blood shkccfew92 mm[Hg] Grady Ball Other [employer] Other 05-08-2023 16:30-0400Respiratory rate12 /minBenjamin Ball Other [employer] Other 05-08-2023 16:30-0400Systolic blood yrfoslqs442 mm[Hg] Rgady Ball Other [employer] Other 02-06-2023 11:50-0500Body hglgsi640.18 cmPamela Margoth Other [employer] Other 02-06-2023 11:50-0500Body mass index (BMI) [Ratio] 24.68 kg/l6Yoopzg Margoth Other [employer] Other 02-06-2023 11:50-0500Body jwcbcbsbrda88.2 [degF]Clare Margoth Other [employer] Other 02-06-2023 11:50-0500Body .49 kgPamela Margoth Other [employer] Other 02-06-2023 11:50-0500Respiratory rate18 /minPamela Margoth Other 409.542.2691nort [employer] Other 02-06-2023 11:50-1190WqK3% (BldA) [Mass fraction]97 % Clare Justin Other [facility] [employer] Other 10-04-2022 13:41-0400Body leentc126.18 cmBenjamin E Ball Work Phone: [phone]-[place] [employer] 250 DO Work Phone: 1(319) 442-277910-04-2022 13:41-0400Body mass index (BMI) [Ratio] 28.54 kg/r1Axstvhjo E Ball Work Phone: [phone]-Ucgvb [place] [employer] 250 DO Work Phone: 1([phone] 115-481310-04-2022 13:41-0400Body surface area Derived from formula1.94 f2Znqqlvsy E Ball Work Phone: mp793-6274XX-Wsvrc [place] [employer] 250 DO Work Phone: 1(316) [phone] 13:41-0400Body mxclme74.67 kgBenjamin E Ball Work Phone: [phone]-Oivxz [place] [employer] 250 DO Work Phone: 1(265) 531-746510-04-2022 13:41-0400Diastolic blood qstbigpd04 mm[Hg] Grady E Ball Work Phone: [phone]-Jnpyz [place] [employer] 250 DO Work Phone: 1(935) 353-599010-04-2022 13:41-0400Heart rate68 /minBenjamin E Ball Work Phone: mp809-4738AU-Mlppg [place] [employer] 250 DO Work Phone: 1(790) 546-104210-04-2022 13:41-0400Systolic blood hwgeiiph304 mm[Hg] Grady E Ball Work Phone: mp352-9084UZ-Ayvvn [place] [employer] 250 DO Work Phone: 1(366) 207-812305-10-2022 14:42-0400Blood Pressure LocationJENNIFER CHARLEE [facility] Anthony 05-10-2022 14:42-0400Diastolic blood qciyypve35 mm[Hg] MABLE CHARLEE [facility] Isabel 05-10-2022 14:42-0400Heart rate84 /minJENNIFER CHARLEE [facility] Anthony 05-10-2022 14:42-0400Systolic blood mm[Hg] MABLE CHARLEE [facility] Isabel 03-20-2022 15:45-0400Body cnsbru968.18 cmPamelgarrison Justin Other [employer] Other 03-20-2022 15:45-0400Body mass index (BMI) [Ratio] 34.45 kg/t5KcdgxmClare Justin Other [employer] Other 03-20-2022 15:45-0400Body mmwzdwcfisy03.8 [degF]Clare Margoth Other [employer] Other 03-20-2022 15:45-0400Body hxlmug69.79 kgMarianoluis Crawfordmond Other [employer] Other 03-20-2022 15:45-0400Diastolic blood ywpmnuam56 mm[Hg] Clare Margoth Other [employer] Other 03-20-2022 15:45-0400Respiratory rate18 /Jonatan Justin Other [place] [employer] Other 03-20-2022 15:45-6954NfV9% (BldA) [Mass fraction]100 % Clare Justin Other [place] [employer] Other 03-20-2022 15:45-0400Systolic blood quzgyico167 mm[Hg] Clare Justin Other [facility] [employer] Other 01-26-2022 14:37-0500Diastolic blood leeyiwou48 mm[Hg] Grady E Ball Work Phone: [phone]-Apkxq [place] [employer] DO Work Phone: 1(201) 608-305901-26-2022 14:37-0500Systolic blood ynnxtfnn264 mm[Hg] Grady E Ball Work Phone: 1(296) [phone]-Fzoxc [place] [employer] DO Work Phone: 1(137) [phone] 14:32-0500Body .18 cmBenjamin E Ball Work Phone: 1(834) [phone]-Vwuky [place] [employer] DO Work Phone: 1(608) 185-561901-26-2022 14:32-0500Body mass index (BMI) [Ratio] 36.96 kg/k3Beugzwge E Ball Work Phone: 1(162) 440-6817589-3498ZE-Wmpqs [place] [employer] 250 DO Work Phone: 1(835) [phone] 14:32-0500Body surface area Derived from formula2.17 e0Iqrwpthd E Ball Work Phone: mp812-6221BW-Ibmbj [place] [employer] 250 DO Work Phone: 1(455) 595-818701-26-2022 14:32-0500Body .05 kgBenjamin E Ball Work Phone: 1(500) [phone]-Nfxjz [place] [facility] 250 DO Work Phone: 1(188) 513-483101-26-2022 14:32-0500Diastolic blood rpedlloz63 mm[Hg] Grady Toney [employer] Work Phone: mp493-9527QE-Gdnos [place] [employer] 250 DO Work Phone: 1(976) [phone] 14:32-0500Heart rate69 /minBenjamin E Ball Work Phone: [phone]-Gagwo [place] [employer] 250 DO Work Phone: 1(837) 259-759001-26-2022 14:32-0500Systolic blood igdordja255 mm[Hg] Grady Toney [employer] Work Phone: [phone]-[place] [employer] DO Work Phone: 1(115) 597-522810-20-2021 15:45-0400Body mibevn390.18 cmPamelgarrison CrawfordMargoth Other [employer] Other 10-20-2021 15:45-0400Body mass index (BMI) [Ratio] 37.59 kg/y8Xaegoq Margoth Other [employer] Other 10-20-2021 15:45-0400Body tysnkugyrgg98.2 [degF]Clare Margoth Other [employer] Other 10-20-2021 15:45-0400Body .86 kgClare Justin Other [employer] Other 10-20-2021 15:45-0400Respiratory rate18 /minClare Justin Other [employer] Other 10-20-2021 15:45-5307XfM4% (BldA) [Mass fraction]97 % Clare Margoth Other [employer] Other Encounters Encounter DateEncounter TypeCare ProviderFacilityStart: 78-10-0397wvcguclcra Kathy M. LueFacility:EU [place]walkStart: 06-19-2025 End: 77-69-9372dnjkpwxfrjJntnvkql Ball DO Work Phone: [facility] Work Phone: Start: 06-19-2025 End: 58-07-2649Ctbokms encounter procedurePaluciana Jorgensen FOOD COOKING MACHINE OPERATOR-[facility] Work Phone: Start: 06-18-2025 End: 91-73-1259qfeqcucymkHambn M. LueFacility:EU NorkStart: 06-18-2025 End: 29-29-9167Mpdugya encounter procedureRosmery Bronson [facility] Start: 06-08-2025 End: 86-49-2257fyfxvjlsyoFhlrnpoo Ball DO Work Phone: [facility] Work Phone: Start: 06-08-2025 End: 01-16-3567Irsuvhiz ReferredBenjamin Ball DO-LAB [facility] Start: 06-08-2025 End: 10-12-5916zlagaoquhkAoybgwbc Ball DO Work Phone: [facility] Work Phone: Start: 06-08-2025 End: 76-23-0214Zkbnomn encounter procedureBensergeymin Ball DO-[facility] Work Phone: Start: 76-33-0283Ngb-patient / Non-visitCatherine Wu PICU NURSE-[facility] Work Phone: Start: 06-02-2025 End: 56-29-4256spwjfjrgnaGwoka M. LueFacility:FTMCStart: 05-18-2025 End: 78-02-1743nztmguhdwzFjggp M. LueFacility:FTMCStart: 05-05-2025 End: 40-82-8586dcqmksofcqVhmqksqx Pippa DO Work Phone: [facility] Work Phone: Start: 05-05-2025 End: 70-43-4648Dujqjha encounter procedureShasha Isaac FOOD COOKING MACHINE OPERATOR-[facility] Work Phone: Start: 04-27-2025 End: 79-71-1156iohrjjtfsbStxjp M. LueFacility:EU [place]walkStart: 04-27-2025 End: 17-80-1307Ybgipbb encounter procedureRosmery Bronson [facility] Start: 87-07-1415yjovlsepwnYcsrx LueFacility:EU [place]uskyStart: 12-10-2024 End: 61-64-4292mlzhqbnijjPghguwubsLakeHealth Beachwood [facility] Center Work Phone: Start: 12-10-2024 End: 75-68-8611Hrphxid encounter procedureWilmer [facility]ician [facility] Work Phone: Start: 51-02-5977Vhd-patient / Non-visitUn[facility] Work Phone: Start: 11-30-2024 End: 32-86-9245Wkifplotnl and management of inpatientSrachel Ferreira DO Work Phone: [facility] WestComment on above:GallstonesStart: 68-26-1729Qfz-patient / Non-visitUn[facility] Work Phone: Start: 10-21-2024 End: 43-46-4565bmtczwdgjrVrddvbdvvZanesville City Hospital Work Phone: Start: 10-21-2024 End: 85-44-3715Pewwuayqe for general adult medical examination without abnormal findingsUC Medical Centertart: 10-21-2024 End: 95-28-9602Hmiimqz encounter procedureUnc Health [facility] Phys[facility] GroupWilson [facility] Work Phone: Start: 93-81-6388Qobwbzc encounter statusUC Medical Centertart: 98-47-8975Gxu-patient / Non-visitUn[facility] GroupNew[facility] Work Phone: Start: 06-23-2024 End: 91-45-9815edsbtmglhgFvitangnhLakeHealth Beachwood Medical Center Work Phone: Start: 06-23-2024 End: 94-64-4767Ymanlke encounter procedureUnc Health [facility] Phys[facility] GroupWilson [facility] Hospital Work Phone: Start: 06-13-2024 End: 11-65-1654ryvscmztiiYisttprkyLakeHealth Beachwood Medical Center Work Phone: Start: 06-13-2024 End: 21-86-1887Ohkjvvu encounter procedureUnc Health Blue [facility] Phys[facility] GroupP[facility] Work Phone: Start: 06-05-2024 End: 64-61-7107Rtwvbh flowsheetCorey Juan DO Work Phone: [facility]oms BCP OBStart: 06-05-2024 End: 70-99-2454Shjolo flowsheetCorey Juan DO Work Phone: [facility] BCP OBStart: 06-05-2024 End: 41-89-4766Djuyezhwr Result EncounterCorey Juan DO Work Phone: noms External Department UnsolicitedStart: 06-05-2024 End: 01-24-8740Bdafpda encounter procedureCorey Juan DO Work Phone: NOFX HealthcareStart: 06-05-2024 End: 46-55-4457Hseqchha preventive med est patient 40-64yrsCorey Juan DO Work Phone: noms BCP OBComment on above:Well woman exam with routine gynecological exam; Breast cancer screening by mammogram; Postmenopausal state; Acute vaginitis; Anorgasmia of femaleStart: 18-11-9391Ize-patient / Non-visitUn[facility] Work Phone: Start: 06-05-2024 End: 65-98-1380dmdktsbadgORNKR FAZIONot AvailableStart: 05-21-2024 End: 97-47-3578sgpskazgrpNIS RAMEYNot AvailableStart: 05-05-2024 End: 31-53-3222kecbpyuqpjKjpvjujdqLakeHealth Beachwood [facility] Center Work Phone: Start: 05-05-2024 End: 00-20-2316Rmdhdvo encounter procedureUn[facility]ician [facility] Work Phone: Start: 26-17-4254Zkq-patient / Non-visitUn[facility] Work Phone: Start: 15-18-2618Mrr-patient / Non-visitUn[facility] Work Phone: Start: 02-01-2024 End: 66-44-3610jpxbcznujrUkapluffxLakeHealth Beachwood Medical Center Work Phone: Start: 02-01-2024 End: 97-92-7924Mputjdv encounter procedureUn[facility] Work Phone: Start: 26-23-7914Zra-patient / Non-visitUn[facility] Health [facility] Work Phone: Start: 11-13-2023 End: 38-09-9980qxokzrcncdNkziupue Ball Other [employer] Other Start: 91-72-1662Pqyobnaxy encounterBevandana DasFPCheng Das Medical ClinicStart: 08-21-2023 End: 06-76-4479txgsemlrybLyefhabd Ball Other [employer] Other Start: 83-11-9536Ojohygy evaluation of patient and reportBenjamin BallFPG [facility] Medical ClinicStart: 07-11-2023 End: 98-20-9786hgmjvxqpoeLjzjfdrb Ball Other [employer] Other Start: 98-91-1423Rjjgafxvi encounterBenjamin BallFPG [facility] Medical ClinicStart: 05-28-2023 End: 57-55-3433yrtmiusrjjNibqzdmp Ball Other [employer] Other Start: 64-25-8953Zzxzxi outpatient visit 15 minutes Grady BallFPG [facility] Medical ClinicStart: 05-02-2023 End: 80-99-5913gdpmzaytysBqkvqiqb Ball Other [employer] Other Start: 22-34-8498Nfyrkzv evaluation of patient and reportBenjamin BallFPG [facility] Medical ClinicStart: 02-19-2023 End: 02-99-7237grybhezxieSrbfbpms Ball Other [employer] Other Start: 61-86-2585Jnjajg outpatient visit 15 minutes Grady BallFPG [facility] ClinicStart: 02-07-2023 End: 75-30-1563dybcpnnkgsMN GRADY BALLFacility:I0Cuoey: 01-23-2023 End: 42-81-6458jvaywilyyhHrhxxlti Ball Other [employer] Other Start: 77-04-3977Edwodsjmv encounterBenjamin BallFPG [facility] ClinicStart: 12-20-2022 End: 90-72-0078jdwsutzfkbOjcoxhzv Ball Other [employer] Other Start: 98-34-0014Gajfssg evaluation of patient and reportBenjamin BallAultman Orrville Hospital ClinicStart: 12-05-2022 End: 22-73-3232cehgksttmzDO GRADY PIPPAFacility:W2Frvoz: 11-30-2022 End: 52-28-8946snriltrqvdGC ARMANDO JUAN .Facility:V6Vdmgn: 02-15-9099ohgnrftnem DR GAINES PIPPAFacility:G2Kbpwt: 11-20-2022 End: 08-99-2998yjccoetfqjDmgttt Dymond Other [employer] Other Start: 10-42-3084Jogvzs outpatient visit 15 minutes Clare JustinPHOENIX [facility] Care ClydeStart: 11-16-2022(Televisit) TelevisitGela AngelAultman Orrville Hospital ClinicStart: 11-16-2022 End: 91-47-6286cqhhecknpsXjtfbc Braun Other [employer] Other Start: 10-25-2022 End: 63-41-0572ceuwfkdesvIF ARMANDO JUAN .Facility:F5Raxfe: 10-11-2022 End: 42-94-8225fexgrwvntyHU ARMANDO JUAN .Facility:U2Dykoy: 10-11-2022 End: 88-87-5186mqoswnzkqmTM GRADY PIPPAFacility:G8Pjyue: 69-55-2617Hdpovpfax for general adult medical examination without abnormal findingsDR GRADY DAS [facility] Main Campustart: 09-25-2022 End: 13-05-2360gwaiijamjwNS GRADY PIPPAFacility:N5Yvezh: 09-25-2022 End: 94-50-0026Ccbnstsuy for general adult medical examination without abnormal findingsDR GRADY PIPPAFacility:W0Kzgul: 18-02-8072Ptkig health examination Grady Das Other [employer] Other Start: 79-74-8926Addlsgktvhcxg examination normal Grady Das Other [employer] Other Start: 86-36-5550Dewwwo outpatient visit 15 minutes Grady Das Work Phone: 1([phone]-GdiucMille Lacs [facility] 250 DO Work Phone: Start: 18-50-4997wlfxjzaujgEv. Joao Concepcionblue ridge regional hospital Facility:[id number]: 07-15-2022 End: 35-63-8026dosrdphypkNQFQPD RODRIGUEZ .Facility:S9Zdqed: 03-02-2022 End: 16-75-5082Lemnndh encounter procedureArtmargaret [facility] Start: 02-21-2022 End: 99-49-8658Ntodvip encounter procedureJESAGE HAZEL [facility] Start: 01-01-2022 End: 04-03-2187nocuagraccNintbl Dymond Other [place] [employer] Other Start: 65-99-0979Wmtuue outpatient visit 15 minutes Clare Berg [facility] ClydeStart: 85-00-2228Aokzud outpatient visit 25 minutesBevandana Toney Pippa Work Phone: [phone]-JlycyMille Lacs [facility] 250 DO Work Phone: Start: 14-13-0097ecmzozkwxqIpNubia Trimbleyeison Concepcionyoselyn Facility:[id number]: 08-03-2021(URG) Urgent Care VisitPamela MargothFPG [facility] Procedures DateProcedureProcedure DetailPerforming ClinicianStart: 20-73-0963Afmwi culture Grady Das DO Work Phone: Start: 57-97-0199Nwbjsquhvagn partial nephrectomyKatstephen Bronson Start: 04-70-6944PRRKF METABOLIC PANEL W/ REFLEX TO MG FOR LOW KDaniel C Hurst FOOD COOKING MACHINE OPERATOR - BALL WARPER TENDER Work Phone: Start: 46-15-6456Xcqgk count complete auto&auto difrntl wbcDaniel C Sofía FOOD COOKING MACHINE OPERATOR - BALL WARPER TENDER Work Phone: Start: 12-02-2024 End: 11-59-8287Tnbhxpshwcb surg cholecystectomyGlen Arreola MD Work Phone: Start: 33-15-2336Xnc abdomen w/o & w/contrast material Glen Arreola MD Work Phone: Start: 80-36-4691Zgwzc metabolic panel calcium total Corinna M Danuta SHOT PEEN OPERATOR Work Phone: Start: 89-04-2504Pprrqow function panelChristine M Danuta SHOT PEEN OPERATOR Work Phone: Start: 85-08-9297Nlhqs metabolic panel calcium total Cindy QUINTANA Work Phone: Start: 64-45-7600WFA,APTIMA HPV,AGE GDLNCorey Juan DO Work Phone: Start: 42-79-5925TjvafrrvytwCxqrl Juan DO Work Phone: Start: 95-00-3157Hwpleccmttn observation [Identifier] in Cervix by Cyto stainCorey Juan DO Work Phone: appendectomyBenjamin E Ball Work Phone: AppendectomyJENNIFER CHARLEE CholecystectomyKathy Lue Depression screeningBenjamin Ball Other History of cholecystectomyS/P cholecystectomyBenjamin Ball DOHysterectomyBenjamin E Ball Work Phone: HysterectomyJENNIFER CHARLEE Ligation of fallopian tubeBenjamin E Ball Work Phone: Ligation of fallopian tubeJENNIFER CHARLEE Operation on bladderBevandana Das Work Phone: Screening for malignant neoplasm of breastBensergeymin Pippa Other Total colonoscopyBensergeymin E Pippa Work Phone: Plan of Treatment DateCare ActivityDetailAuthorStart: 46-89-5957Ppmqjipsl for malignant neoplasm of colonBon [facility] HospitalStart: 66-19-8765Teexwqiad for malignant neoplasm of cervixNOMS HealthcareStart: 47-72-4074MEkB/Tdap/Td vaccine (2 - Td or Tdap)DTaP/Tdap/Td vaccine (2 - Td or Tdap)[facility]Start: 02-91-2566Lzwif cultureUC Medical Centertart: 06-08-2025 Bacteria identified in Urine by CultureUrine [facility] Centertart: 96-89-4595Sumgzknio for malignant neoplasm of breastBreast cancer screenBon [facility] HospitalStart: 93-05-5233Uhwsyigiz for malignant neoplasm of colonNOMS HealthcareStart: 29-82-7677OTPNN-19 Vaccine ( season) COVID-19 Vaccine ()[facility]Start: 06-15-2024 Influenza vaccinationInfluenza Vaccine (#1)[facility] HealthcareStart: 06-05-2024 End: 54-66-9835CKB Skeletal system Views for bone densityDEXA bone density Imaging Routine Postmenopausal state Expected: 06/05/2024 (Approximate), Expires:06/05/2025N[facility] HealthcareComment on above:Expected: 06/05/2024 (Approximate), Expires: 06/05/2025Start: 06-05-2024 End: 89-31-7406DC Breast - bilateral ScreeningBilateral screening mammogram Imaging Routine Breast cancer screening by mammogram Expected: 06/05/2024 (Approximate), Expires: 08/05/2025[facility] Work Phone: comment on above:Expected: 06/05/2024 (Approximate), Expires: 08/05/2025Start: 06-05-2024 End: 76-07-5513Xzlegvj encounter iijuxtjpb47/22/2024 11:50 AM EDT Office Visit [facility] [address] [place] [phone] JuanArmando salas, DO [address] [place] [address] ArrivedSAN [facility]E [facility] OBComment on above:ArrivedStart: 29-64-7684Doehimfrn vaccinationFlu vaccine (#1)[facility] AmericaStart: 48-42-4199Dqnhwsxak for malignant neoplasm of breastMammogramFitzgibbon Hospital Start: 27-24-6124OAV, Provider: Joao Ramírez, Status: Pen, Time: 2:00 PM FUV, Provider: Joao Ramírez, Status: Pen, Time: 2:00 PMMPShriners [facility] 250 DO Work Phone: Start: 66-83-0287DBJ, Provider: Joao Ramírez, Status: Pen, Time: 1:40 PMFUV, Provider: Joao Ramírez, Status: Pen, Time: 1:40 PMMPShriners Children'S [facility] 250 DO Work Phone: Start: 76-37-2318Zfwmigoumehy 50+ years Vaccine (1 of 1 - PCV)Pneumococcal 50+ years Vaccine (1 of 1 - PCV)[facility] Start: 05-91-4176Sfppyryj vaccine (1 of 2)Shingles vaccine (1 of 2)[facility] AmericaStart: 22-97-4611Dpisqdcvm for malignant neoplasm of colonBon [facility] HospitalStart: 09-80-0763Vpjif panelLipidsHospital Corporation Of America Start: 99-75-3292Qpktxhqjk for malignant neoplasm of cervixBon [facility] HospitalStart: 76-84-0903Rlaodqubh for malignant neoplasm of cervixPap smearBon [facility] HospitalStart: 19-10-9757Xljbkdflz B vaccine (1 of 3 - 19+ 3-dose series)Hepatitis B vaccine (1 of 3 - 19+ 3-dose series)[facility] Start: 39-24-3538Ftqmejnft C screeningHepatitis C [facility] Start: 64-57-5968CRR screeningHIV [facility] HospitalStart: 58-66-1265Dafdnzcxzq ScreenDepression [facility] CenterStart: 92-22-0017Tpplwaeon for malignant neoplasm of colonUT[facility] HealthcareOxygen therapy [Minimum Data Set]Initiate Oxygen Therapy Protocol Respiratory Care Routine As Needed until discontinued starting 11/30/2024[facility] on above:As Needed until discontinued starting 11/30/2024Pathology studySurgical Pathology Lab Routine Gallstones Release Upon Ordering for 1 Occurrences starting 12/02/2024[facility] on above:Release Upon Ordering for 1 Occurrences starting 12/02/2024 End: 38-00-7324CERMDWZJ PATHOLOGY REPORTSURGICAL PATHOLOGY REPORT Lab Routine Once for 1 Occurrences starting 12/02/2024 until 12/02/2024[facility] on above:Once for 1 Occurrences starting 12/02/2024 until 12/02/2024THIN PREP TIS PAP AND HR HPV DNATHIN PREP TIS PAP AND HR HPV DNA Pathology and Cytology Routine Well woman exam with routine gynecological exam Ordered: 06/05/2024[facility] on above:Ordered: 06/05/2024[facility] Immunizations Immunization DateImmunizationNotesCare OalbhbagBflhbqga78-71-1535Msrazv-GofJSplm COVID-19 Vacc 30 MCG/0.3ML Intramuscular SuspensionBenjamin E Ball Work Phone: [phone]-ZjhycRed Lake [facility] Health Services [facility] 250 DO Work Phone: 1(497) [phone]-RhfQPodc COVID-19 Vacc 30 MCG/0.3ML Intramuscular SuspensionBenjamin E Ball Work Phone: mpShriners [facility] 250 DO Work Phone: 1(135) [phone]uymivk, intradermal, quadrivalent, preservative free, injectableBenjamin E Ball Work Phone: [phone]-[place]aiC[place] [address] DO Work Phone: 1(169) [phone] toxoid, reduced diphtheria toxoid, and acellular pertussis vaccine, adsorbedBenjamin E Ball Work Phone: [place] [address] DO Work Phone: [phone]vxkiob virus vaccine, unspecified formulationCorey Juan DO Work Phone: [facility] Xbeclbnwxv48-58-6895urjox pbfslpxlw-J9D5-13, preservative-free, injectableBenjamin E Ball Work Phone: [id number]-QjmmwC[place] [address] DO Work Phone: Payers DatePayer CategoryPayerPolicy [id number] Health Insurance [id number] [id number] Rehabilitation [id number] 2..1.730282.19 [id number] 2..1.028347.3.579.2.29480-51-5816Vpibufi [id number] 2..1.453309.3.57[id number] 2..1.891438.3.57[id number] 2.0.1.524367.3.57[id number] 2.840.1.048594.3.57[id number] 2.840.1.071032.3.57[id number] 2.16.840.1.751455.3.57[id number] 2.16.840.1.149918.3.57[id number] 2.16.840.1.861867.3.57[id number] 2.16.840.1.243357.3.579.[id number] 2.16.840.1.261150.3.57[id number] 2.840.1.006502.3.579.2.[id number] 2.840.1.498307.3.57[id number] 2..840.1.424251.3.57[id number] 2.840.1.203253.3.57[id number] 2.840.1.261578.3.57[id number] 2..840.1.733555.3.57[id number] 2..840.1.781422.3.57[id number] 2..840.1.871230.3.57[id number] 2.840.1.537429.3.57[id number] 2.16.840.1.973814.3.579.2.727 [id number] 2.16.840.1.202830.19 20-51-2414Hqko-[id number] 2.1[id number] 2.16.840.1.391339.3.579.2.531 Social History DateTypeDetailFacilityStart: 11-30-2024 End: 30-97-5124Wv alcohol useNo alcohol useNosaint j[facility]'s [facility] [employer] Other Start: 02-21-2022 End: 34-23-6912Ryiyrdp smoking statusNever smoked tobacco (finding)[facility] [employer] Tobacco smoking statusNeverExecutive Urology [facility] [employer] Start: 11-30-2024 End: 22-57-0588Jzi Assigned At Replaced by [facility] [employer] Other Start: 85-02-8222Njf Assigned At [facility] HospitalTobacco smoking status NHISTobacco smoking consumption unknownNOMA HealthcareStart: 46-86-8639Fes assigned at birthNot on fileUTAH VALLEY HOSPITAL HealthcareStart: 01-26-2010 End: 38-46-0453QcxHuutqt (finding)[facility] Cent[facility]art: 70-06-2542Buuoawu use and exposureSmokeless tobacco non-userBon ZoombuStart: 24-58-1231Rgwpujylr beverage intakeEx-drinker (finding)Bon ZoombuHas the [employer], gas, oil, or water company threatened to shut off services in your home in past 12MoNoBon Zoombu(I/We) worried whether (my/our) food would run out before (I/we) got money to buy more.Never trueBon ZoombuSexual OrientationExec[facility] Start: 86-10-3940SfsGney (finding)[facility] Procedure CodeEquipment CodeEquipment Original TextEquipment IdentifierDatesClip Int L Polymer Lexx Lig Hem O Lexx (6ea/Pk) - [id number], [id number] FDAStart: 12-02-2024 Clinical Notes 08-03-2021 to 06-18-2025 Note Date & IrskAejwUpqznqfi70-49-1174 Hospital Discharge instructions Patient Education 06/18/2025 09:24:48 Kidney Cancer Kidney Cancer Kidney cancer is a type of cancer in which an abnormal growth of cells (tumor) forms in one or bothkidneys. The kidneys filter waste from your blood and make urine. Kidney cancer may spread to otherparts of your body. This type of cancer may also be called renal cell carcinoma. What are the causes? The cause of this condition is not known. What increases the risk? You may be more likely to develop kidney cancer if: You are over age 60. You have certain conditions that are passed from parent to child (inherited). These include von Hippel-Lindau disease, tuberous sclerosis, and hereditary papillary renal carcinoma. You smoke or have been exposed to certain chemicals. You have advanced kidney disease, especially if you need to use a machine to clean your blood (dialysis). You are obese. You have high blood pressure (hypertension). You are male. What are the signs or symptoms? At first, kidney cancer may not cause any symptoms. As the cancer grows, symptoms may include: Blood in the urine. Pain in the upper back or abdomen, just below the rib cage. You may feel pain on one or both sides of your body. Tiredness (fatigue). Weight loss that cannot be explained. Fever. How is this diagnosed? This condition may be diagnosed based on: Your symptoms. Your medical history. A physical exam. You may also have tests, such as: Blood and urine tests. X-rays. Imaging tests, such as CT scans, MRIs, and PET scans. Angiogram. This is when dye is injected into your blood to show your blood vessels. Intravenous pyelogram. This is when dye is injected into your blood to show your kidneys and the other organs that help with making and storing urine. Biopsy. This is when a piece of tissue is removed from your kidney and looked at under a microscope. Your cancer will be assessed (staged), based on how severe it is and how much it has spread. How is this treated? Treatment depends on the type and stage of the cancer. Treatment may include: Surgery to remove: ?Just the tumor (nephron-sparing surgery). ?The entire kidney (nephrectomy). ?The kidney, some of the healthy tissue around it, nearby lymph nodes, and sometimes the adrenal gland (radical nephrectomy). Medicines to: ?Kill cancer cells (chemotherapy). ?Help your body's disease-fighting system (immune system) fight cancer cells. This is known as immunotherapy. Radiation therapy. This uses high-energy rays to kill cancer cells. Targeted therapy to only attack genes and proteins that allow a tumor to grow. This type of therapytries to limit damage to your healthy cells. Cryoablation. This uses gas or liquid to freeze cancer cells. It is sent through a needle. Radiofrequency ablation. This uses high-energy radio waves to destroy cancer cells. It is sent through a needle-like probe. Embolization. This is a procedure to block the artery that supplies blood to the tumor. Follow these instructions at home: Eating and drinking Some of your treatments may affect your appetite and your ability to chew and swallow. If you have problems eating, or if you do not have an appetite, meet with an expert in diet and nutrition (dietitian). If you have side effects that affect eating, it may help to: ?Eat smaller meals more often. ?Eat bland or soft foods. ?Avoid foods that are hot, spicy, or hard to swallow. ?Drink shakes or supplements that are high in nutrition and calories. Do not drink alcohol. Lifestyle Do not use any products that contain nicotine or tobacco. These products include cigarettes, chewing tobacco, and vaping devices, such as e-cigarettes. If you need help quitting, ask your health careprovider. Get enough sleep. Most adults need 6 8 hours of sleep each night. During treatment, you may need more sleep. General instructions Take jgxz-otm-pdwcyrc and prescription medicines only as told by your health care provider. Consider joining a support group. This can help you cope with the stress of having kidney cancer. Work with your health care provider to manage any side effects of treatment. Keep all follow-up visits. Your health care provider will want to make sure your treatment is working. Where to find more information [place] [employer]: cancer.org National Cancer [place] (NCI): cancer.gov Contact a health care provider if: You bruise or bleed easily. You lose weight without trying. You have new or worse fatigue or weakness. You have a fever. Your pain suddenly increases. You have more blood in your urine. Your skin or the white parts of your eyes turn yellow (jaundice). Get help right away if: You have chest pain. You are short of breath. You have irregular heartbeats (palpitations). These symptoms may be an emergency. Get help right away. Call 911. Do not wait to see if the symptoms will go away. Do not drive yourself to the hospital. This information is not intended to replace advice given to you by your health care provider. Make sure you discuss any questions you have with your health care provider. Document Revised: 03/13/2023 Document Reviewed: 03/13/2023 [employer] Patient Education 2023 [employer]. Follow Up Care 06/03/2025 09:28:49 With:Audie MADERA, BELKIS Bain, URO Address: [address], [facility] [place] [address] [phone] When: Unknown Comments:3 mos w/ CT Abd w/wo con, CXR, CMP [facility] 09-04-2025 NotePatient Education Oncology Kidney Cancer Kidney cancer is a type of cancer in which an abnormal growth of cells (tumor) forms in one or bothkidneys. The kidneys filter waste from your blood and make urine. Kidney cancer may spread to otherparts of your body. This type of cancer may also be called renal cell carcinoma. What are the causes? The cause of this condition is not known. What increases the risk? You may be more likely to develop kidney cancer if: ??? You are over age 60. ??? You have certain conditions that are passed from parent to child (inherited). These include vonHippel-Lindau disease, tuberous sclerosis, and hereditary papillary renal carcinoma. ??? You smoke or have been exposed to certain chemicals. ??? You have advanced kidney disease, especially if you need to use a machine to clean your blood (dialysis). ??? You are obese. ??? You have high blood pressure (hypertension). ??? You are male. What are the signs or symptoms? At first, kidney cancer may not cause any symptoms. As the cancer grows, symptoms may include: ??? Blood in the urine. ??? Pain in the upper back or abdomen, just below the rib cage. You may feel pain on one or both sides of your body. ??? Tiredness (fatigue). ??? Weight loss that cannot be explained. ??? Fever. How is this diagnosed? This condition may be diagnosed based on: ??? Your symptoms. ??? Your medical history. ??? A physical exam. You may also have tests, such as: ??? Blood and urine tests. ??? X-rays. ??? Imaging tests, such as CT scans, MRIs, and PET scans. ??? Angiogram. This is when dye is injected into your blood to show your blood vessels. ??? Intravenous pyelogram. This is when dye is injected into your blood to show your kidneys and the other organs that help with making and storing urine. ??? Biopsy. This is when a piece of tissue is removed from your kidney and looked at under a microscope. Your cancer will be assessed (staged), based on how severe it is and how much it has spread. How is this treated? Treatment depends on the type and stage of the cancer. Treatment may include: ??? Surgery to remove: ? Just the tumor (nephron-sparing surgery). ? The entire kidney (nephrectomy). ? The kidney, some of the healthy tissue around it, nearby lymph nodes, and sometimes the adrenal gland (radical nephrectomy). ??? Medicines to: ? Kill cancer cells (chemotherapy). ? Help your body's disease-fighting system (immune system) fight cancer cells. This is known as immunotherapy. ??? Radiation therapy. This uses high-energy rays to kill cancer cells. ??? Targeted therapy to only attack genes and proteins that allow a tumor to grow. This type of therapy tries to limit damage to your healthy cells. ??? Cryoablation. This uses gas or liquid to freeze cancer cells. It is sent through a needle. ??? Radiofrequency ablation. This uses high-energy radio waves to destroy cancer cells. It is sent through a needle-like probe. ??? Embolization. This is a procedure to block the artery that supplies blood to the tumor. Follow these instructions at home: Eating and drinking ??? Some of your treatments may affect your appetite and your ability to chew and swallow. If you have problems eating, or if you do not have an appetite, meet with an expert in diet and nutrition (dietitian). ??? If you have side effects that affect eating, it may help to: ? Eat smaller meals more often. ? Eat bland or soft foods. ? Avoid foods that are hot, spicy, or hard to swallow. ? Drink shakes or supplements that are high in nutrition and calories. ??? Do not drink alcohol. Lifestyle ??? Do not use any products that contain nicotine or tobacco. These products include cigarettes, chewing tobacco, and vaping devices, such as e-cigarettes. If you need help quitting, ask your health care provider. ??? Get enough sleep. Most adults need 6?8 hours of sleep each night. During treatment, you may need more sleep. General instructions ??? Take dptr-drh-jsiebtf and prescription medicines only as told by your health care provider. ??? Consider joining a support group. This can help you cope with the stress of having kidney cancer. ??? Work with your health care provider to manage any side effects of treatment. ??? Keep all follow-up visits. Your health care provider will want to make sure your treatment is working. Where to find more information ??? [place] [employer]: cancer.org ??? National Cancer [place] (NCI): cancer.gov Contact a health care provider if: ??? You bruise or bleed easily. ??? You lose weight without trying. ??? You have new or worse fatigue or weakness. ??? You have a fever. ??? Your pain suddenly increases. ??? You have more blood in your urine. ??? Your skin or the white parts of your eyes turn yellow (jaundice). Get help right away if: ??? You have chest pain. ??? You are short of breath. ?? (more content not included)...[facility]08-21-2025 Note Progress Note-Physician Patient: JENNIFER ZAMORA Age: 54 years Sex: [...] Unspecified urethral stricture, female / SNOMED CT 354209725 / Confirmed Renal mass / SNOMED CT 318350676 / Confirmed Recurrent UTI / SNOMED CT 673324348 / Confirmed Hypertension / SNOMED CT 3092383696 / Confirmed Histories Procedure history: Appendectomy (728520133). Hysterectomy (435127277). Tubal ligation (389229791). Cholecystectomy; (43555). Social History Social & Psychosocial Habits Tobacco 04/27/2025 Tobacco Use: Never (less than 100 in l Smokeless tobacco use: Never . Physical Examination Airway: Mallampati classification: II (soft palate, fauces, uvula visible). Respiratory: adequate air exchange. Cardiovascular: Regular rhythm. Plan [place] [employer] Anesthesiologists (ASA) physical status classification: Class II. Anesthetic Preoperative Plan: Anesthesia General, and Patient educated on benefits, alternatives and inherent risk of anesthesia including, but not all inclusive, Allergic reactions, dental damage, nerve damage and cardio-pulmonary complications and wishes to proceed with anesthetic plan..[facility] HospitalComment on above:Result Comment: Electronically Signed By: Fabián Campbell Jr, DO\.br\Date and Time Signed: 06/04/25 12:14 [id number] NoteProgress Note-Physician Patient: JENNIFER ZAMORA Age: 54 years Sex: [...] Discharge when meets criteria ( To home ).[facility] HospitalComment on above:Result Comment: Electronically Signed By: Fabián Campbell Jr, DO\.alan\Date and Time Signed: 06/04/25 12:13 EDT 06-03-2025 NotePatient Education - Text Nephrology Minimally Invasive Nephrectomy, [...] these instructions at home: Medicines ??? Take pyzx-wem-bkqnvnf and prescription medicines only as told by your health care provider. ??? Avoid using NSAIDs regularly over a long period of time. These include aspirin and ibuprofen. Doing so may damage your remaining kidney. -Tylenol 650-1000 mg every 6 hours as needed for pain. [place] for severe uncontrolled pain. These have 325 [...] keep your urine pale yellow. ? Take elvs-pse-aufrgfb or prescription medicines - Colace/Senna to prevent [...] and water are not available, use hand responder. ? Change your dressing as told by your health care provider- daily and as needed to keep dry, and until incision is closed. ? Leave stitches (sutures), skin glue, or adhesive strips in place. These skin closures may need wendy in place for 2 weeks or longer. [...] or the limit that you are told, untilyour health care provider says that it is [...] and water are not available, use hand responder. ??? Empty the drainage bag every 2???4 [...] visits. This is important. (more content not included)...[facility]08-20-2025 Note Discharge Summary Patient: JENNIFER ZAMORA Age: 54 years Sex: Female : 1970 Associated Diagnoses: None Author: Audie MADERA, Rosmery Mckay Results Review General results Today's results 06/03/2025 6:03 EDT WBC 9.1 E9/L RBC 4.1 E12/L LOW HGB 13.0 gm/dL Hct 37.2 % MCV 90.8 fL MCH 31.8 pg MCHC 35.0 gm/dL RDW 12.9 % Platelet 347.0 E9/L MPV 7.8 fL Neutro Auto 81.2 % HI Lymph Auto 11.8 % LOW [place] Auto 6.9 % Eos Auto 0.0 % Basophil Auto 0.1 % Neutro Absolute 7.4 E9/L Lymph Absolute 1.1 E9/L [place] Absolute 0.6 E9/L Eos Absolute 0.0 E9/L [...] Last Charted Temp Oral 36.6 DegC (JUN 03 11:) Heart Rate Monitored 76 bpm (JUN 03:) SBP 107 mmHg (JUN 03:) DBP 65 mmHg (JUN 03:) Intake and Output Fluid Balance Primitives 06/03/2025 [...] vitals and blood pressure remained stable and w ell controlled. Her pain was controlled on PO pain meds, she was tolerating PO intake, ambulating safely and voided after maldonado removal. Her FAUSTO drain output was minimal and removed prior to dischargehome. She will follow up in 2 weeks for post op check and pathology review. Discharge Plan Discharge Summary Plan Discharge Status: stable. Discharge instructions given: to patient, to caregiver. Discharge disposition: discharge to home into the care of family member. Prescriptions: called to pharmacy.[facility] HospitalComment on above: Result Comment: Electronically Signed By: Audie MADERA, Rosmery Mckay\.br\Date and Time Signed: 06/03/25 12:[id number] NotePatient Education - Text Nephrology Minimally Invasive Nephrectomy, [...] these instructions at home: Medicines ??? Take klop-pqo-iuvdjkx and prescription medicines only as told by your health care provider. ??? Avoid using NSAIDs regularly over a long period of time. These include aspirin and ibuprofen. Doing so may damage your remaining kidney. -Tylenol 650-1000 mg every 6 hours as needed for pain. [place] for severe uncontrolled pain. These have 325 [...] keep your urine pale yellow. ? Take pbbx-rop-pshowas or prescription medicines - Colace/Senna ? Eat [...] and water are not available, use hand responder. ? Change your dressing as told by your health care provider- daily and as needed to keep dry, and until incision is closed. ? Leave stitches (sutures), skin glue, or adhesive strips in place. These skin closures may need wendy in place for 2 weeks or longer. [...] or the limit that you are told, untilyour health care provider says that it is [...] and water are not available, use hand responder. ??? Empty the drainage bag every 2???4 [...] your pain medicine. ?? (more content not included)...[facility]08-19-2025 Note History and Physical Patient: JENNIFER ZAMORA Age: 54 years Sex: Female : 1970 Associated Diagnoses: None Author: Rosmery Bronson MD Preoperative Information Indication for procedure and diagnosis: [...] Tab, Oral, PREOP, Routine, Start date 06/02/25 7:30:00EDT, Given with small sip of water 1 hour prior to scheduled robotic cases. cefazolin additive + Sodium Chloride 0.9% intravenous solution 50 mL: 2 gm = 1 EA, Powder-Inj, IV Piggyback, Once, Stop date 06/02/25 8:00:00 EDT, Routine, Start date 06/02/25 8:00:00 EDT, 100 mL/hr,Infuse over 30 minute(s), HOLD if patient has [...] mcg oral capsule: cap(s), Oral, Refill(s) 0 Winter-3 Fish Oil 1000 mg oral capsule: mg [...] list: All Problems Hypertension / SNOMED CT 7687268421 / Confirmed Recurrent UTI / SNOMED CT 922625603 / Confirmed Renal mass / SNOMED CT 360533473 / Confirmed Unspecified urethral stricture, female / SNOMED CT 118879139 / Confirmed Histories Past Medical History: No active or resolved past medical history items have been selected or recorded. Family History: Hypertension Mother Stroke Mother Diabetes clinic Mother High cholesterol Father Procedure history: Appendectomy (050863468). Hysterectomy (959825266). Tubal ligation (771737369). Cholecystectomy; (65398). Social History Social & Psychosocial Habits Tobacco 04/27/2025 Tobacco Use: Never (less than 100 in l Smokeless tobacco use: Never . Physical Examination Vital Signs (last 24 hrs) Last Charted Temp Oral 36.3 DegC (JUN 02:48) Heart Rate Monitored 69 bpm (JUN 02:49) SBP 124 mmHg (JUN 02:49) DBP 80 mmHg (JUN 02:49) General Appearance: alert , no acute distress, [...] per clinic note, risks/benefits previously discussed and documentedTri[facility] HospitalComment on above:Result Comment: Electronically Signed By: Audie MADERA, Rosmery Shea.alan\Date and Time Signed: 06/02/25 08:[id number] Evaluation note* Diagnosis Onset Date Resolution Status Admit Date Urinary frequency noneactiveJuly 2024 2:40pmAcute non-recurrent maxillary sinusitis noneactiveJuly 2024 2:40pmH/O partial maefsvkiapw3813xowyeUobsqy 2024 8:28amHypertensionacuteAugust 2024 8:28amRenal mass, rightacuteAugust 2024 8:28amS/P cholecystectomynoneactiveAugust 2024 8:28am [facility] Work Phone: 1(450) 375-302707-22-2025 Evaluation note* Diagnosis Onset Date Resolution Status Admit Date Urinary frequency noneactiveJuly 2024 2:40pmAcute non-recurrent maxillary sinusitis noneactiveJuly 2024 2:40pmConstipationacuteAugust 2024 8:28amDysuria acuteAugust 2024 8:28amH/O partial xsxsvzvdbxh0558fwanzIqdilr 2024 8:28amHypertensionacuteAugust 2024 8:28amMetabolic dysfunction-associated steatotic liver disease (MASLD)acuteAugust 2024 8:28amPrimary insomnia acuteAugust 2024 8:28amRenal mass, rightacuteAugust 2024 8:28amS/P cholecystectomynoneactiveAugust 2024 8:28am [facility] Work Phone: 1(335) 501-564307-14-2025 Hospital Discharge instructions Patient Education 04/27/2025 13:29:04 [...] provider gives to you. In general: Take cxih-bvz-qnuyzjc and prescription medicines only as told by [...] provider. Document Revised: 03/28/2021 Document Reviewed: 03/28/2021 [employer]medx Patient Education 2023 FreeDrive. 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 In general: ??? Take qlxz-lnz-pdtqtqj and prescription medicines only as told by [...] provider. Document Revised: 03/28/2021 Document Reviewed: 03/28/2021 [employer]med[employer] Patient Education ? 2023 FreeDrive.[facility] 12-03-2024 History of Present illness Narrative* Aria Miles RN - 12/03/2024 3:05 PM EST This bid writer went over AVS answered all questions [...] pack Cyclobenzaprine 10mg Additional Documentation: * Luigi Gore, JARON - ASHLEIGH - 12/03/2024 10:08 AM EST Images from the original note were not included. [facility] Office: [phone] Matt Sawyer DO, Jason Riggins DO, Krish [...] Hardy DNP, Keturah Del Cid CNP, Luciana Rome, JOSEP, Christy Slater CNP, Jagruti Argueta CNP, Cindy Kapadia PA-C, Zara Hunter CNP, Hardeep Manzanares CNP, Kyala Alvarez, EDUCATOR SENIOR CLINICAL, Magui Toro, EDUCATOR SENIOR CLINICAL, Shasha Watson, EDUCATOR SENIOR CLINICAL,Sanjana Decker, PRECISION STRUCTURAL METAL FITTER, Chiquita Rebolledo, EDUCATOR SENIOR CLINICAL, Joslyn Tabor, EDUCATOR SENIOR CLINICAL, Kayce Virk, EDUCATOR SENIOR CLINICAL [facility] IN-PATIENT SERVICE [facility] Progress Note 12/03/2024 10:08 AM Name: Jennifer Zamora Acct: [id number] Room: IP Day: 3 Admit Date: 11/30/2024 9:13 PM [...] History: 11/30 - Pt is transferred from [facility] for Biliary ductal stone and renal mass [...] , PHART , PH , POCPCO2 , PSM1USA , PCO2 , POCPO2 , PO2ART , PO2 , POCHCO3 , EKZ6IMG , HCO3 , NBEA , PBEA , BEART , BE , THGBART , THB , [id number] , [id number] , [id number] , O2SAT , FIO2 No results found [...] with Dr. Arreola outpatient. Associated attestation - Glen Arreola MD - 12/03/2024 8:00 AM EST Attending Physician Statement I have discussed the case, including pertinent history and exam findings with the resident. I agreewith the assessment, plan and orders as documented by the resident. Surgically stable for discharge. Intra-op findings discussed * Lisa Yepez RPH - 12/02/2024 6:39 PM EST Images from the original note were not included. Pharmacy Note - Extended Infusion Beta-Lactam Adjustment Piperacillin/Tazobactam 3375mg Q8h for treatment of Intra-abdominal Infection. Per [facility] Extended Infusion Beta-Lactam Policy, piperacillin/tazobactam will be changed to 4500mg loading dose followed by 3375mg Q8h extended infusion Estimated Creatinine Clearance: Estimated Creatinine Clearance: 97 mL/min (based on SCr of 0.7 mg/dL). BMI: Body mass index is 26.28 kg/m . Please call with any questions. Thank you, Lisa Yepez PharmD 12/02/2024 6:39 PM * Aria Miles RN - 12/02/2024 6:22 PM EST Patient returned from PACU at this time. Patient resting in bed, at bedside. Orders released and reviewed. * Aria Miles RN - 12/02/2024 1:48 PM EST Patient to OR at this time. * Luigi Gore APRN - ASHLEIGH - 12/02/2024 10:56 AM EST Images from the original note were not included. [facility] Office: [phone] Matt Sawyer DO, Jason Riggins DO, Krish [...] Krissy Batres CNP, Luigi Gore, JOSEP, Twyla Hardy, ARSH, Keturah Del Cid, JOSEP, Luciana Rome, JOSEP, Christy Slater CNP, Jagruti Argueta, EDUCATOR SENIOR CLINICAL, Cindy Kapadia PA-C, Zara Hunter, EDUCATOR SENIOR CLINICAL, Hardeep Manzanares, EDUCATOR SENIOR CLINICAL, Kayla Alvarez, EDUCATOR SENIOR CLINICAL, Magui Toro, EDUCATOR SENIOR CLINICAL, Shasha Watson, EDUCATOR SENIOR CLINICAL,Sanjana Decker, PRECISION STRUCTURAL METAL FITTER, Chiquita Rebolledo, EDUCATOR SENIOR CLINICAL, Joslyn Tabor, EDUCATOR SENIOR CLINICAL, Kayce Virk, EDUCATOR SENIOR CLINICAL [facility] IN-PATIENT SERVICE [facility] Progress Note 12/02/2024 10:57 AM Name: Jennifer Zamora Acct: [id number] Room: IP Day: 2 Admit Date: 11/30/2024 9:13 PM PCP: Grady Das, Code Status: Full Code Subjective: C/C: Abdominal discomfort Interval History Status: improved. Pain is better controlled. GI on board and plan for MRCP. General surgery on board and tentatively plan for OR tomorrow. Will need outpatient follow-up for surveillance of renal mass. Brief History: 11/30 - Pt is transferred from [facility] for Biliary ductal stone and renal mass [...] , PHART , PH , POCPCO2 , [id number] , PCO2 , POCPO2 , PO2ART , PO2 , POCHCO3 , [id number] , HCO3 , NBEA , PBEA , BEART , BE , THGBART , THB , [id number] , [id number] , [id number] , O2SAT , FIO2 No results found [...] Patient: Jennifer Zamora : 1970 Date: 12/02/2024 Butt Trimmer: Deon Dillard MD Subjective: Patient sleeping comfortably [...] For MRCP today with cholecystectomy later today * Marcella Hernandez RN - 12/01/2024 6:13 PM EST patient just got back to room and was not able to get the MRI/MRCP because she got very anxious once in the machine and demanded to get out. She said this has never happened before. The inspector technician saidshe won't be able to try again tonight and will call tomorrow morning to see if patient is willing.Patient says she's willing tomorrow if she can have something first. Tello Gore notified and Ativan ordered for prior to MRI/MRCP * Luigi Gore APRN - ASHLEIGH - 12/01/2024 2:05 PM EST Images from the original note were not included. [facility] Office: [phone] Matt Sawyer DO, Jason Riggins DO, Krish [...] DO, Asher Mathis MD, Edmond Almanzar MD, Evna Almanzar MD, Shanae Brady, JOSEP, Krissy Batres, EDUCATOR SENIOR CLINICAL, Luigi Gore, EDUCATOR SENIOR CLINICAL, Twyla Hardy, DNP, Keturah Del Cid, EDUCATOR SENIOR CLINICAL, Luciana Rome, EDUCATOR SENIOR CLINICAL, Christy Slater, EDUCATOR SENIOR CLINICAL, Jagruti Argueta, EDUCATOR SENIOR CLINICAL, MARIANO Tamez-C, Zara Hunter, EDUCATOR SENIOR CLINICAL, Hardeep Manzanares, EDUCATOR SENIOR CLINICAL, Kayla Alvarez, EDUCATOR SENIOR CLINICAL, Magui Toro, EDUCATOR SENIOR CLINICAL, Shasha Watson, EDUCATOR SENIOR CLINICAL,Sanjana Decker, PRECISION STRUCTURAL METAL FITTER, Chiquita Rebolledo EDUCATOR SENIOR CLINICAL, Joslyn Tabor EDUCATOR SENIOR CLINICAL, Kayce Virk, EDUCATOR SENIOR CLINICAL [facility] IN-PATIENT SERVICE [facility] Progress Note 12/01/2024 2:31 PM Name: Jennifer Zamora Acct: [id number] Room: Day: 1 Admit Date: 11/30/2024 9:13 PM PCP: Grady Das DO Code Status: Full Code Subjective: C/C: Abdominal discomfort Interval History Status: improved. Pain is better controlled. GI on board and plan for MRCP. General surgery on board and tentatively plan for OR tomorrow. Will need outpatient follow-up for surveillance of renal mass. Brief History: 11/30 - Pt is transferred from [facility] for Biliary ductal stone and renal mass [...] , PHART , PH , POCPCO2 , [id number] , PCO2 , POCPO2 , PO2ART , PO2 , POCHCO3 , [id number] , HCO3 , NBEA , PBEA , BEART , BE , THGBART , THB , [id number] , [id number] , [id number] , O2SAT , FIO2 No results found [...] PM EST Pt admitted to room from [facility] Oriented to room and call light/tv [...] Care Everywhere were reviewed documented in this encounterHospital [facility] Of America02-19-2025 [facility] Discharge instructions* Discharge Instr - ANTONY* Aria Miles RN - 12/03/2024 12:32 PM EST * Attachments The following attachments cannot be sent through Care Everywhere. * Cholecystectomy: General Info (Tanzanian) * Cholecystectomy: Post-op (Tanzanian) * Pancreatitis: Acute: General Info (Tanzanian) * Surgical Site Infections: Prevention: General Info (Tanzanian) * Cyclobenzaprine (Tanzanian) * methylprednisolone (oral) (Tanzanian) documented in this encounterHospital Corporation Of America02-19-2025 [facility] course Narrative* Luigi Gore APRN - NP - 12/03/2024 10:19 AM EST Images from the original note were not included. [facility] Office: [phone] Matt Sawyer DO, Jason Riggins DO, Krish [...] Almanzar MD, Evan Almanzar MD, Shanae Brady, EDUCATOR SENIOR CLINICAL, Krissy Batres, EDUCATOR SENIOR CLINICAL, Luigi Gore, EDUCATOR SENIOR CLINICAL, Twyla Hardy, ARSH, Keturah Del Cid, EDUCATOR SENIOR CLINICAL, Luciana Rome, EDUCATOR SENIOR CLINICAL, Christy Slater, EDUCATOR SENIOR CLINICAL, Jagruti Argueta, EDUCATOR SENIOR CLINICAL, MARIANO Tamez-C, Zara Hunter, EDUCATOR SENIOR CLINICAL, Hardeep Manzanares, EDUCATOR SENIOR CLINICAL, Kayla Alvarez, EDUCATOR SENIOR CLINICAL, Magui Toro, EDUCATOR SENIOR CLINICAL, Shasha Watson, EDUCATOR SENIOR CLINICAL,Sanjana Decker, PRECISION STRUCTURAL METAL FITTER, Chiquita Rebolledo, EDUCATOR SENIOR CLINICAL, Joslyn Tabor, EDUCATOR SENIOR CLINICAL, Kayce Virk, EDUCATOR SENIOR CLINICAL [facility] IN-PATIENT SERVICE [facility] Discharge Summary Patient ID: Jennifer Zamora : 1970 ACCOUNT: [id number] Patient's PCP: Grady Das DO Admit Date: 11/30/2024 Discharge Date: 12/03/2024 Length of Stay: 3 Code Status: Full Code Admitting Physician: Flavia Meza MD Discharge Physician: Luigi Gore APRN - ASHLEIGH Active Discharge Diagnoses: Hospital Problem Lists: Principal [...] file. 11/30 - Pt is transferred from [facility] for Biliary ductal stone and renal mass [...] Up: \ Grady Das DO [address] [facility] [address] Follow up in 1 month(s) [...] Your Medications These medications were sent to [facility] [address] [place] [address] - [phone] - [phone] [place] [address] cyclobenzaprine 10 MG tablet methylPREDNISolone 4 MG [...] this patient's care. documented in this encounterBon [facility]* Diagnosis Onset Date Resolution Status Admit Date Hypertension acuteOctuary 2024 2:52pmMajor depressionacuteOctober 21, 2024 2:52pm PalpitationsacuteOctober 21, 2024 2:52pmPrimary insomniaacuteOctober 21, 2024 2:52pmScreening for colon canceracuteOctober 21, 2024 2:52pmScreening mammogram for breast canceracuteOctober 21, 2024 2:52pmWellness examinationacuteOctober 21, 2024 2:52pmHypertensionacuteFebruary 2024 2:30pmMajor depressionacute February 2024 2:30pmPrimary insomniaacuteFebruary 2024 2:30pmRenal mass, rightacuteFebruary 2024 2:30pmS/P cholecystectomynoneactiveFebruary 2024 2:30pm [facility] Work Phone: 1(364) 969-978808-22-2024 History of Present illness Narrative* Mita Watson, FIRST CALENDER WORKER - 06/05/2024 11:50 AM EDT Reason for Appointment: Patient ID: Jennifer Zamora is a 53 y.o. female who presents for [facility] Women Visit Patient presents today for Annual [...] nursing note reviewed. Exam conducted with a director nursing service present. Vitals: Estimated body mass index is [...] inability to climax. Will send order to [facility] for Progesterone/Testosterone cream to be compounded. [...] of: Armando Martinez DO documented in this encounterFitzgibbon [id number] Evaluation note* Encounter Date Diagnosis Assessment Notes Treatment Notes Treatment Clinical Notes Aug, Seasonal allergies (ICD-10 - J30 .2) [facility] Other 08-14-2023 Evaluation note* Encounter Date Diagnosis Assessment Notes Treatment Notes Treatment Clinical Notes May, Acute bacterial conjunctivitis o f left eye (ICD-10 - H10.32) Use artificial tears as much as possible. Use warm washcloth to remove crusting debris from lashes May,ysfunction of left eustachian tube (ICD-10 - H69.92)Flonase and Claritin D. Valsalva to open ET [facility] Other 07-19-2023 Evaluation note* Encounter Date Diagnosis Assessment Notes Treatment Notes Treatment Clinical Notes Apr, Seasonal allergic rhinitis, unsp ecified trigger (ICD-10 - J30.2) [facility] Other 05-08-2023 Evaluation note* Encounter Date Diagnosis Assessment Notes Treatment Notes Treatment Clinical Notes February, Right foot drop (ICD-10 - M21.37 1) Continue stretching and resistance exercises. f/u Podiatry in month February,rimary hypertension (ICD-10 - I10)This patient is instructed to consume a healthy, low-fat, low-salt diet. They are also encouraged to continue exercise to achieve/maintain a normal BMI. Recheck BP once restarted home meds February,Mild episode of recurrent major depressive disorder (ICD-10 - F33.0) Healthy diet, exercise and keep active. Stressed consistent sleep routine February,OtherHealthy diet, exercise and keep active [facility] Other 04-26-2023 NotePROCEDURE: XR FOOT RT MIN [...] Electronically authenticated by: LAM DORSEY Date: 2023-02-07 12:23[facility]04-26-2023 NotePROCEDURE: XR ANKLE RT MIN 3 VIEWS DATE: 02/07/2023 10:24 AM CDT COMPARISONS: None CLINICAL INDICATION: Right ankle pain. FINDINGS: There is no evidence of fractures or other osseous abnormalities. The ankle mortise is intact. IMPRESSION: Right ankle radiographs show no evidence of significant abnormalities. Electronically authenticated by: LAM DORSEY Date: 2023-02-07 12:19[facility] [id number] Evaluation note* Encounter Date Diagnosis Assessment Notes Treatment Notes Treatment Clinical Notes Dec, Seasonal allergic rhinitis, unsp ecified trigger (ICD-10 - J30.2) [facility] Other 02-06-2023 Evaluation note* Encounter Date Diagnosis Assessment Notes Treatment Notes Treatment Clinical Notes Nov, Contact with and (espinoza spected) exposure to covid-19 (ICD-10 - Z20.822) Nov,OVID-19 (ICD-10 - U07.1)Discharge Instructions for COVID-19 (Suspected or Confirmed ) material was printed Drink plenty fluids, get plenty of rest. Take Tylenol Motrin for aches pains or fevers. You must quarantine for 5 days after the onset of your symptoms of COVID. Follow-up with your family physician if no improvement in 2 to 3 days. [facility] Other 02-02-2023 Evaluation note* Encounter Date Diagnosis Assessment Notes Treatment Notes Treatment Clinical Notes Nov, Acute cystitis without hematuria (ICD-10 - N30.00) Discussed that bactrim could address her sinusitis symptoms as well. Take tylenol for body aches. Pt unable to provide a UA due to her work responsibilties. [facility] Other 05-19-2022 Hospital Discharge instructions Patient Education [...] Up Care 02/21/2022 15:13:40 With:MABLE HAZEL Address: [address] [place] [address] [facility] (1) When:6 weeks Comments:Call for followup appointment. Please finish your antibiotics. Monitor the urinary pattern after the dilation today. [facility]05-09-2022 Hospital Discharge instructions Patient Education 02/20/2022 14:38:38 Urinary Tract Infection, Adult, Pxcp-ms-Xmhi Urinary Tract Infection, Adult A urinary tract [...] Follow these instructions at home: Medicines Take ouwe-lsn-yrttmgr and prescription medicines only as told by [...] 03/19/2009 Document Revised: 09/18/2019 Document Reviewed: 04/10/2019 [employer] Patient Education 2020 [employer]. Follow Up Care 01/31/2022 10:31:51 With:CHARLEE OSCAR, MABLE Toney, URL Address: [address] [place] [address] When: Unknown Comments:Will schedule Cysto [facility] Isabel 03-20-2022 Evaluation note* Encounter Date Diagnosis Assessment Notes Treatment Notes Treatment Clinical Notes Dec, Dysuria (ICD-10 - R30.0) Dec,Urinary tract infection, site not specified (ICD-10 - N39.0) Drink plenty fluids, get plenty of rest. Take the Macrobid as prescribed until gone. Take the Diflucan as prescribed until gone. Continue to take the rnva-azl-xdgucvd Azo for your symptoms. Follow-upwith your physician if no improvement in 2 to 3 days. Dec,Hematuria, unspecified (ICD-10 - R31.9) [facility] Other 10-20-2021 Evaluation note* Encounter Date Diagnosis Assessment Notes Treatment Notes Treatment Clinical Notes Jul, Contact with and (espinoza spected) exposure to other viral communicable diseases (ICD-10 - Z20.828) Jul,cute sinusitis, recurrence not specified, unspecified location (ICD-10 - J01.90) Drink plenty fluids, get plenty of rest. Take the Augmentin as prescribed until gone. Take the prednisone as prescribed until gone. Use the Flonase nasal spray, begin today and use until your symptoms improve. Follow-up with your family physician if no improvement in 2 to 3 days Jul,Other Additional time spent conducting pre-visit phone call, screening for symptoms, instructions on social distancing, application and removal of PPE, and cleaning of examination room, equipment and supplies was preformed. Patient education given for testing methodology and results. Patient care instructions given in writting by CDC Care At Home document. [place] [employer] Other Evaluation + Plan note Future Appointments Appointment Date:02/23/2022 09:45:00 AM Scheduled Provider: Location:[facility] Appointment Type:Urology CALL PAT FT Appointment Date:03/02/2022 11:00:00 AM Scheduled Provider: Location:[facility] Appointment Type:Urology FT [facility] Evaluation + Plan note Future Appointments Appointment Date:04/13/2022 03:15:00 PM Scheduled Provider:MABLE HAZEL PA-C [facility] Future Appointments Appointment Date:09/24/2025 01:00:00 PM Scheduled Provider:Rosmery Bronson MD Location:[facility] Appointment Type:URO Office Visit Future Scheduled Tests Laboratory* Comprehensive Metabolic Panel 09/17/25 Radiology* CT Abdomen w/ + w/o Contrast 09/17/25 * XR Chest 2 Views 09/17/25 [facility] Evaluation noteNo InformationNortGuthrie Clinic LiveClips Other Evaluation noteNo assessment information available [facility] Work Phone: Evaluation note* Diagnosis Onset Date Resolution Status Acute frontal sinusitis acute [facility] Work Phone: Evaluation note* Diagnosis Onset Date Resolution Status Acute frontal sinusitis acuteHypertensionacuteMajor depressionacutePalpitationsacute [facility] Work Phone: Evaluation note* Diagnosis Well woman exam with routine gynecological exam Routine gynecological examination Breast cancer screening by mammogram Postmenopausal state Asymptomatic postmenopausal status (age-related) (natural) Acute vaginitis Unspecified vaginitis and vulvovaginitis Anorgasmia of female documented in this encounter [facility] HealthcareEvaluation note* Diagnosis Onset Date Resolution Status Admit Date Hypertension acuteJanuary 2024 2:52pmMajor depressionacuteJanuary 2024 2:52pm PalpitationsacuteJanuary 2024 2:52pmScreening mammogram for breast cancer acuteJanuary 2024 2:52pmWellness examinationacuteJanuary 2024 2:52pm [facility] Work Phone: Evaluation note* Diagnosis Acute biliary pancreatitis without infection or necrosis- Primary Gallstones Calculus of gallbladder without mention of cholecystitis or obstruction Hypertension Unspecified essential hypertension Renal mass Unspecified disorder of kidney and ureter Pancreatitis, unspecified pancreatitis type documented in this encounter [facility] general Narrative - Reported* Type Description Date Medical History Hypertension Medical HistoryADHDMedical Historychronic depressionMedical Historyheart palpitationsSurgical HistoryC sectionSurgical HistoryhysterectomySurgical HistoryappendectomyHospitalization Historysee above [facility] Other History general Narrative - Reported* Type Description Date Medical History Hypertension Medical HistoryADHDMedical HistoryAcute seasonal allergic rhinitisMedical HistoryIFG (impaired fasting glucose)Medical HistoryHypokalemiaMedical History ObesityMedical HistoryNSVT (nonsustained ventricular tachycardia)Medical History Gastroesophageal reflux disease with esophagitis without hemorrhageMedical HistoryPalpitationMedical HistoryHormonal disorderMedical HistoryPost-menopausal Medical HistoryAnorgasmia of femaleMedical HistoryEczema, dyshidroticMedical HistoryContact and allergic dermatitis of eyelidMedical HistoryMild episode of recurrent major depressive disorderMedical HistoryMigraine with aura and without status migrainosus, not intractableMedical HistoryGAD (generalized anxiety disorder)Medical HistoryBenign paroxysmal positional vertigo, unspecified lateralitySurgical HistoryC sectionSurgical HistoryhysterectomySurgical History [id number] Historysee above [facility] Other History of Present illness Narrative* Patient [...] month or earlier if the need arise [facility] [address] DO Work Phone: History of [...] year with plan to repeat her EKG -[facility] DO Work Phone: Hospital course Narrative No data available for this section [facility] Progress note No data available for this section [facility] Reason for referral (narrative)No reason for referral information availableOhiohealth Berger Hospital Work Phone: Reason for visit Narrative* Auth/CertSpecialty Diagnoses / ProceduresReferred By ContactReferred To Contact Diagnoses Acute biliary pancreatitis without infection or necrosis Pancreatitis Krish Ferreira, [address] [address] [facility] [address] [place] [address] Referral IDStatusReasonStart DateExpiration DateVisits RequestedVisits [id number] [facility] Summary Purpose Family History No Family History Records FoundUnknown Family Member Name Dates Details Family history of cerebrovas cular accident (CVA): Mother(V17.1, Z82.3) Status:ActiveFamily history of diabetes mellitus: Mother(V18.0, Z83.3) Status:ActiveFamily history of myocardial infarction: Father(V17.3, Z82.49) Status:Active Unknown Family Member Name Dates Details Family history of cerebrovas cular accident (CVA): Mother(V17.1, Z82.3) Status:ActiveFamily history of diabetes mellitus: Mother(V18.0, Z83.3) Status:ActiveFamily history of myocardial infarction: Father(V17.3, Z82.49) Status:Active Relationship Condition Age at Onset Recorded Date/T zulma father Unknown Heart diseaseUnknownNot SpecifiedHistory of strokeUnknownDiabetes mellitus Unknown Relationship Condition Age at Onset Recorded Date/T zulma father Unknown Heart diseaseUnknownmotherHistory of strokeUnknownDiabetes mellitusUnknown Advance Directives No Advanced Directives Records Found Advance Directive Response Recorded Date/ Time Advance Directives No May 03 3:09pm Advance Directive Response Recorded Date/ Time Advance Directives No May 03 2:09pm Date ActivatedDate InactivatedComments11/30/2024 9:14 PM Chief Complaint JENNIFER ZAMORA is being seen for a 4 month follow-up of.JENNIFER ZAMORA is being seen for a 9 month follow-up of. Chief Complaint and Reason for Visit Chief Complaint Amb Documentation Sinus infection Chief Complaint allergy shot Chief Complaint allergy shot congestion,headache,(smell coming from nose?)Reason for VisitAcute frontal sinusitis Chief Complaint allergy shot congestion,headache,(smell coming from nose?) depression medication [phone] for VisitAcute frontal sinusitis Hypertension Major depression Palpitations Chief Complaint Admit Date Wellness October 21, 2024 2: 52pm Reason for Visit Admit Date Hypertension October 21, 2024 2: 52pm Major depression October 21, 2024 2: 52pm Palpitations October 21, 2024 2: 52pm Screening mammogram for breast cancer [facility] 2024 2:52pm Wellness examination October 21, 2024 2 :52pm Chief Complaint Admit Date Wellness October 21, 2024 2: 52pm Amb Documentation December 04, 2024 9:37am IP [facility] cholecystectomy y 2024 2:30pm Reason for Visit Admit Date Hypertension October 21, 2024 2: 52pm Major depression October 21, 2024 2: 52pm Palpitations October 21, 2024 2: 52pm Primary insomnia October 21, 2024 2: 52pm Screening for colon cancer October 21, 2024 2:52pm Screening mammogram for breast cancer [facility] 2024 2:52pm Wellness examination October 21, 2024 [...] Documentation June 03, 2025 1: 24pm [facility] F/U/Reminded Pt June 08, 2025 8:28am Reason for Visit Admit Date Urinary frequency May 05, 2025 2:40 pm Acute non-recurrent maxillary sinusitis May 05, 2025 2:40pm H/O partial nephrectomy June 08 8:28am Hypertension June 08, 2025 8: 28am Renal mass, right June 08, 2025 8: 28am S/P cholecystectomy June 08, 2025 8: 28am Chief Complaint Admit Date frequency to urinate, congestion, sinus pressure May 05, 2025 2:40pm Amb Documentation June 03, 2025 1: 24pm [facility] F/U/Reminded Pt June 08, 2025 8:28am Unknown June 08, 2025 4: 10pm Reason for Visit Admit Date Urinary frequency May 05, 2025 2:40 pm Acute non-recurrent maxillary sinusitis May 05, 2025 2:40pm Constipation June 08, 2025 8: 28am Dysuria June 08, 2025 8: 28am H/O partial nephrectomy June 08 8:28am Hypertension June 08, 2025 8: 28am Metabolic dysfunction-associ ated steatotic liver disease (MASLD) June 08, 2025 8:28am Primary insomnia June 08, 2025 8: 28am Renal mass, right June 08, 2025 8: 28am S/P cholecystectomy June 08, 2025 8: 28am Chief Complaint Admit Date frequency to urinate, congestion, sinus pressure May 05, 2025 2:40pm Amb Documentation June 03, 2025 1: 24pm [facility] F/U/Reminded Pt June 08, 2025 8:28am Unknown June 08, 2025 4: 10pm Congestion, eye irritation June 1:58pm Additional Source Comments INFORMATION SOURCE (unrecogn ized section and content) DATE CREATED AUTHOR 04/09/2021 [facility] DATE CREATED AUTHOR AUTHOR'S ORGANIZ ATION 07/19/2022 [facility] DATE CREATED AUTHOR AUTHOR'S ORGANIZ ATION 07/19/2022 [employer] DATE CREATED AUTHOR AUTHOR'S ORGANIZ ATION 02/16/2023 [facility] DATE CREATED AUTHOR AUTHOR'S ORGANIZ ATION 06/07/2024 [facility] DATE CREATED AUTHOR AUTHOR'S ORGANIZ ATION 12/13/2024 [facility] DATE CREATED AUTHOR AUTHOR'S ORGANIZ ATION 05/20/2025 [facility] DATE CREATED AUTHOR AUTHOR'S ORGANIZ ATION 05/21/2025 [facility] DATE CREATED AUTHOR AUTHOR'S ORGANIZ ATION 06/03/2025 [facility] DATE CREATED AUTHOR AUTHOR'S ORGANIZ ATION 06/04/2025 [facility] DATE CREATED AUTHOR AUTHOR'S ORGANIZ ATION 06/13/2025 [facility] DATE CREATED AUTHOR AUTHOR'S ORGANIZ ATION 06/19/2025 [facility] DATE CREATED AUTHOR AUTHOR'S ORGANIZ ATION 06/20/2025 [facility] REASON FOR VISIT (unrecogniz ed section and content) ReasonCommentsWell Women Visit Care Teams (unrecognized sec tion and content) Team Status: Active Member Role Status Dates Grady Das DO Primary Care Provider Active Team Status: Inactive Member Role Status Dates Grady Das DO Primary Care Provider Active Start: May 05, 2025 End: May 05Rj Bright ProviderActiveStart: May 05, 2025 End: May 05, 2025 Team Status: Active Member Role Status Dates Grady Das DO Primary Care Provider Active Start: January 08, 2024 Barb Garcia ProviderActiveStart: January 08, 2024 Team Status: Inactive Member Role Status Dates Grady Das DO Primary Care Provide r, Attending Provider Active Start: February 01, 2024 End: February 01, 2024 Team Status: Active Member Role Status Dates Grady Ball , DO Primary Care Provider Active Start: March 26, 2024 Yaneth Ann , DOAttending ProviderActiveStart: March 26, 2024 Team Status: Active Member [...] Active Start: June 05, 2024 Armando Martinez , DOAttending ProviderActiveStart: June 05, 2024 Team Status: Inactive Member Role Status Dates Grady Das DO Primary Care Provider Active Start: June 13, 2024 End: June 13, 2024Rj Anand ProviderActiveStart: June 13, 2024 End: June 13, 2024 [...] Start: October 21, 2024 End: October 21, 2024Team MemberRelationshipSpecialtyStart DateEnd Date Grady Das DO [address] [place] [id number] PCP - GeneralInternal Medicine11/30/24 Team Status: Active Member Role Status Dates Grady Das DO Primary Care Provider Active Start: November 30, 2024 Holger Locke DOAttending ProviderActiveStart: November 30, 2024 Team Status: Active Member Role Status Kurtis Das DO Primary Care Provider Active Start: December 04, 2024 Maya Washburn CMAAttending ProviderActiveStart: December 04, 2024 Team Status: Inactive Member Role Status Kurtis Das DO Primary Care Provide r, Attending Provider Active Start: December 10, 2024 End: December 10, 2024 Team Status: Active Member Role Status Dates Grady Das DO Primary Care Provider Active Start: June 03, 2025 Maya Washburn CMAAttending ProviderActiveStart: June 03, 2025 Team Status: Inactive Member Role Status Dates Grady Das DO Primary Care Provider Active Start: June 08, 2025 End: June 08phil Das Attaaron ProviderActiveStart: June 08, 2025 End: June 08, 2025 Team Status: Inactive Member Role Status Dates Grady Das DO Attending Provider Active Sta rt: June 08, 2025 End: June 08, 2025 Team Status: Inactive Member Role Status Dates KASSANDRA Kang RN [employer]-C Attending Provider Active Start: June End: June 19Lamine Willams [facility] ProviderActiveStart: June 19, 2025 End: June 19, 2025 Goals (unrecognized section and content) Goals may be documented in a n alternate section Ordered Prescriptions (unrec ognized section and content) PrescriptionSigDispensedRefillsStart DateEnd Date cyclobenzaprine (FLEXERIL) 10 MG tablet Take 1 tablet by mouth 3 times daily as needed for Muscle spasms 21 tablet methylPREDNISolone (MEDROL DOSEPACK) 4 MG tablet Take by mouth. 1 kit Scheduled Active and Recently Administ ered Medications (unrecognized section and content) Medication Order// enoxaparin (LOVENOX) injection 40 mg 40 mg, SubCUTAneous, DAILY, First dose on Sun12/01/24 at 0900, Until Discontinued, Indication of Use: Prophylaxis-DVT/PE, Administer by deep subCUTAneous injection with pt lying down. Alternate injection sites on abdominal wall. Do not rub site after injection. Check with provider prior to any invasive procedure., On hold since Sun12/01/2024 at 1648 until manually unheld * 0953 (Given - Provider: Marcella Hernandez RN) * 1648 (Held by provider - Provider: Philip Au DO - Reason: Other) * 0900 (Automatically Held - Provider: Philip Au DO) * 0900 (Automatically Held - Provider: Philip Au DO) lidocaine 4 % external patch 1 patch 1 patch, TransDERmal, Administer over 12 Hours, DAILY, First dose on Sun12/01/24 at 0900, Apply patch to back. The hadoop infrastructure architect's recommendations for the number of patches that can be applied within a 24-hour period varies from 1 to 4 times daily and the duration of application varies from 8 to 24 hours; refer to the hadoop infrastructure architect's labeling for product-specific recommendations. * 0941 (Patch Applied - Provider: Marcella Hernandez RN) * 2302 (Patch Removed - Provider: Carin Pulido RN) * 0928 (Not Given - Provider: Aria Miles RN - Reason: Patient/family refused) * 1431 (MAR Hold - Provider: Mar Autohold - Reason: Unreviewed Transfer Orders) * 1813 (DEC Unhold - Provider: Aria Miles RN) * 0839 (Not Given - Provider: Aria Miles RN - Reason: Patient/family refused) LORazepam (ATIVAN) injection 2 mg (COMPLETED) 2 mg, IntraVENous, ONCE, 1 dose, On Sun12/01/24 at 1830, Immediately prior to intravenous use, lorazepam Injection must be diluted with at least an equal volume of compatible solution (NS or D5W)., Please retimed for 30 minutes prior to MRI * 0725 (Given - Provider: Carin Pulido RN) morphine (PF) injection 1 mg (COMPLETED) 1 mg, IntraVENous, ONCE, 1 dose, On Sun12/01/24 at 2300, If oral and IV narcotics ordered, use oralfirst and only use IV if oral is ineffective or cannot take oral. Do Not give oral and IV within 1 hour of each other unless specifically ordered. * 2300 (Given - Provider: Carin Pulido RN) piperacillin-tazobactam (ZOSYN) 3,375 mg in sodium chloride 0.9 % 50 mL IVPB (mini-bag)(Linked Group 1) 3,375 mg, IntraVENous, EVERY 8 HOURS, First dose on Sun12/03/24 at 0100, Until Discontinued, Antimicrobial Indications: Intra-Abdominal Infection * 0109 (New Bag - Provider: Lorri Arguelles RN) * 0509 (Stopped - Provider: Lorri Arguelles RN) * 0839 (New Bag - Provider: Aria Miles RN) * 1330 (Stopped - Provider: Aria Miles RN) * 1700 (Due) piperacillin-tazobactam (ZOSYN) 4,500 mg in sodium chloride 0.9 % 100 mL IVPB (mini-bag) (COMPLETED)(Linked Group 1) 4,500 mg, IntraVENous, ONCE, 1 dose, On Sun12/02/24 at 1900, Antimicrobial Indications: Intra-Abdominal Infection * 1900 (New Bag - Provider: Aria Miles RN) * 1930 (Stopped - Provider: Lorri Arguelles RN) sodium chloride flush 0.9 % injection 5-40 mL 5-40 mL, IntraVENous, EVERY 12 HOURS SCHEDULED (2 times per day), First dose on Sun11/30/24 at 2130, Until Discontinued, For Line Patency: Peripheral IV = 5 mL; Midline or Central Line = 10 mL/lumen.If following IV push medication, administer flush at same rate as the IV push. Flush volume is determined by type of infusion therapy being given. For non-viscous solutions use: Peripheral IV = 5 mL Midline or Central Line = 10 mL/lumen For viscous solutions (i.e. blood components, parenteral nutrition, contrast media, or after obtaining blood sample) use: Peripheral IV = 10 mL Midline or CentralLine = 20 mL/lumen * 0953 (Not Given - Provider: Marcella Hernandez RN - Reason: IV Fluid Infusing) * 2302 (Not Given - Provider: Carin Pulido RN - Reason: IV Fluid Infusing) * 0927 (Not Given - Provider: Aria Miles RN - Reason: IV Fluid Infusing) * 1431 (MAR Hold - Provider: Steff Autohold - Reason: Unreviewed Transfer Orders) * 1813 (MAR Unhold - Provider: Aria Miles RN) * 203 (Not Given - Provider: Lorri Arguelles RN - Reason: IV Fluid Infusing) * 0839 (Given - Provider: Aria Miles RN) * 2100 (Due) tiZANidine (ZANAFLEX) tablet 4 mg (COMPLETED) 4 mg, Oral, ONCE, 1 dose, On Sun12/01/24 at 2300 * 2301 (Given - Provider: Carin Pulido RN) Medication Order/18/[id number]/03/2024 lactated ringers infusion ()(Linked Group 2) IntraVENous, at 250 mL/hr, CONTINUOUS, Starting on Sun11/30/24 at 2130, For 12 hours * 0216 (Rate/Dose Change - Provider: Marcella Hernandez RN) * 0217 (Rate/Dose Verify - Provider: Marcella Hernandez RN) * 0219 (Stopped - Provider: Marcella Hernandez RN) * 0219 (New Bag - Provider: Arleth Watkins RN) * 0550 (New Bag - Provider: Arleth Watkins RN) * 0948 (Stopped - Provider: Marcella Hernandez RN) lactated ringers infusion(Linked Group 2) IntraVENous, at 150 mL/hr, CONTINUOUS, Starting on Sun12/01/24 at 0930 * 0950 (New Bag - Provider: Marcella Hernandez RN) * 0959 (Stopped - Provider: Marcella Hernandez RN) * 1035 (Restarted - Provider: Marcella Hernandez RN) * 1036 (Paused - Provider: Marcella Hernandez RN) * 1036 (Restarted - Provider: Marcella Hernandez RN) * 1626 (Rate/Dose Verify - Provider: Marcella Hernandez RN) * 1633 (New Bag - Provider: Marcella Hernandez RN) * 2308 (New Bag - Provider: Carin Pulido, MISHEL) * 0610 (New Bag - Provider: Carin Pulido, MISHEL) * 1431 (DEC Hold - Provider: Mar Autohold - Reason: Unreviewed Transfer Orders) * 1813 (MAR Unhold - Provider: Aria Miles, RN) * 0000 (New Bag - Provider: Lorri Arguelles RN) * 1343 (Stopped - Provider: Aria Miles RN) Medication Order502/ 0.9 % sodium chloride infusion IntraVENous, at 5-250 mL/hr, PRN, if patient receiving piggyback infusions and maintenance fluids are not ordered, Starting on Sun11/30/24 at 2114, For piggyback infusion, administer at same rate as piggyback for a total of 25 mL. Enter 25 mL into dose field and piggyback rate into rate field of order. If piggyback is infusing at a rate less than 100 mL/hr, enter 25 mL into dose field and 100 mL/hr into rate field of order. * 1431 ([facility] Hold - Provider: [facility] Aut[facility] - Reason: Unreviewed Transfer Orders) * 1813 ([facility] Unhold - Provider: Aria Miles RN) BUPivacaine-EPINEPHrine PF (MARCAINE-w/EPINEPHrine) 0.5% -[id number] injection (CANCELED) PRN, Starting on Sun12/02/24 at 1455, Until Sun12/02/24 at 1616, Intra-op * 1455 (Given - Provider: Glen Arreola MD - Comment: OPERATIVE SITE) gadoteridol (PROHANCE) injection 15 mL (COMPLETED) 15 mL, IntraVENous, IMG ONCE PRN, 1 dose, Starting on Sun12/02/24 at 0829, Until Sun12/02/24 at 0830, Other * 0830 (Given - Provider: Desi Ratliff) HYDROcodone-acetaminophen (NORCO) 5-325 MG per tablet 1 tablet 1 tablet, Oral, EVERY 6 HOURS PRN, Starting on Sun12/01/24 at 1109, Until Discontinued, Pain Severe(7-10), Maximum dose of acetaminophen is 4000 mg from all sources in 24 hours. * 1221 (Given - Provider: Marcella Hernandez RN) * 1817 (Given - Provider: Marcella Hernandez RN) * 1136 (Given - Provider: Aria Miles RN) * 1431 ([facility] Hold - Provider: [facility] Autohold - Reason: Unreviewed Transfer Orders) * 1813 ([facility] Unhold - Provider: Aria Miles RN) * 0655 (Given - Provider: Lorri Arguelles RN) * 1249 (Given - Provider: Aria Miles RN) ketorolac (TORADOL) injection 15 mg 15 mg, IntraVENous, EVERY 6 HOURS PRN, Starting on 12/01/24 at 0651, Until 12/06/24 at 0650, Pain Moderate (4-6), Do not administer for more than 5 days. * 1933 (Given - Provider: Marcella Hernandez RN) * 0611 (Given - Provider: Carin Pulido RN) * 143 ([facility] Hold - Provider: [facility] Autohold - Reason: Unreviewed Transfer Orders) * 181 ([facility] Unhold - Provider: Aria Miles RN) magnesium [...] in Patients with CrCl less than 30mL/min * 143 ([facility] Hold - Provider: [facility] Autohold - Reason: Unreviewed Transfer Orders) * 1812 ([facility] Unhold - Provider: Aria Miles RN) morphine [...] hour of each other unless specifically ordered. * 1631 (Given - Provider: Marcella Hernandez RN) * 2057 (Given - Provider: Carin Pulido RN) * 0334 (Given - Provider: Carin Pulido RN) * 143 ([facility] Hold - Provider: [facility] [employer] - Reason: Unreviewed Transfer Orders) * 181 ([facility] Unhold - Provider: Aria Miles RN) ondansetron (ZOFRAN) injection 4 mg(Linked Group 3) 4 mg, IntraVENous, EVERY 6 HOURS PRN, Starting on 11/30/24 at 2114, Until Discontinued, Nausea, Vomiting, Administer if oral route cannot be used. * 1637 (Given - Provider: Marcella Hernandez RN) * 143 ([facility] Hold - Provider: [facility] [employer] - Reason: Unreviewed Transfer Orders) * 181 ([facility] Unhold - Provider: Aria Miles RN) ondansetron (ZOFRAN-ODT) disintegrating tablet 4 mg(Linked Group 3) 4 mg, Oral, EVERY 8 HOURS PRN, Starting on 11/30/24 at 2113, Until Discontinued, Nausea, Vomiting * 1637 (See Alternative - Provider: Marcella Hernandez RN) * 1431 ([facility] Hold - Provider: Steff Autohold - Reason: Unreviewed Transfer Orders) * 181 ([facility] Unhold - Provider: Aria Miles RN) potassium chloride 10 mEq/100 mL IVPB (Peripheral Line)(Linked Group 4) 10 mEq, IntraVENous, PRN, Starting on 11/30/24 at 2113, Until Sun12/19/24 at 2112, at 100 mL/hr, Per IV Potassium Replacement Protocol, Use when central line is not available for replacement. K LabReplacement Action 3.1-3.5 10 mEq IVPB x 4 doses (40 mEq Total) 2.7-3.0 10 mEq IVPB x 6 doses (60 mEq Total) less than 2.7 CALL PHYSICIAN and 10 mEq IVPB x 6 doses (60 mEq Total) Infuse at 10 mEq/hr Repeat Potassium lab 1 hour after final administration. Protocol not for use in Patients with CrCl less than 30mL/min * 1431 ([facility] Hold - Provider: Steff Autohold - Reason: Unreviewed Transfer Orders) * 181 ([facility] Unhold - Provider: Aria Miles RN) potassium chloride 20 mEq/50 mL IVPB (Central Line)(Linked Group 4) 20 mEq, IntraVENous, PRN, Starting on 11/30/24 at 2113, Until Sun12/19/24 at 2112, at 50 mL/hr, Per IV Potassium Replacement Protocol, Use first line when central line is available for replacement.K Lab Replacement Action 3.1-3.5 20 mEq IVPB x 2 doses (40 mEq Total) 2.7-3.0 20 mEq IVPB x 3 doses(60 mEq Total) less than 2.7 CALL PHYSICIAN and 20 mEq IVPB x 3 doses (60 mEq Total) Infuse at 20 mEq/hr Repeat Potassium lab 1 hour after final administration. Protocol not for use in Patients with CrCl less than 30mL/min * 1431 ([facility] Hold - Provider: [facility] Autohold - Reason: Unreviewed Transfer Orders) * 1813 ([facility] Unhold - Provider: Aria Miles RN) sodium chloride flush 0.9 % injection 5-40 mL 5-40 mL, IntraVENous, PRN, Starting on Sun11/30/24 at 2114, Until Discontinued, Line Care, After every IV [...] For viscous solutions (i.e. blood components, parenteral nutrition,contrast media, or after obtaining blood sample) use: Peripheral IV = 10 mL Midline or Central Line= 20 mL/lumen * 1431 ([facility] Hold - Provider: Steff Autohold - Reason: Unreviewed Transfer Orders) * 1813 ([facility] Unhold - Provider: Aria Miles RN) Order Group 1: piperacillin-tazobactam (ZOSYN) 4,500 mg [...] 6 HOURS PRN, Starting on Sun11/30/24 at 2113, Until Discontinued, Nausea, Vomiting, Administer if oral route cannot be used. Group 4: potassium chloride 20 mEq/50 mL IVPB (Central Line)Jump to med 20 mEq, IntraVENous, PRN, Starting on 11/30/24 at 2113, Until Sun12/19/24 at 2112, at 50 mL/hr, Per IV Potassium Replacement Protocol, Use first line when central line is available for replacement.K Lab Replacement Action 3.1-3.5 20 mEq IVPB x 2 doses (40 mEq Total) 2.7-3.0 20 mEq IVPB x 3 doses(60 mEq Total) less than 2.7 CALL PHYSICIAN [...] line is not available for replacement. K LabReplacement Action 3.1-3.5 10 mEq IVPB x 4 [...] BE BASED ON THE PRIMARY CLINICAL RECORDS. [facility]. provides no warranty or guarantee of the accuracy or completeness of information in this document.
[2025-08-28 16:05] LABS: Hematocrit 40.2 % (36.0-48.0); Hemoglobin 14.1 g/dL (12.0-16.0); Immature Granulocytes Abs Auto 0.00 10^3/uL (0.00-0.03); Immature Granulocytes Pct Auto 0.0 % (0.0-0.5); Lymphocytes Absolute Auto 1.7 10^3/uL (1.2-3.8); Mean Corpuscular HGB Conc 35.1 g/dL (29.9-35.2); Mean Corpuscular Hemoglobin 32.2 pg (26.7-34.0); Mean Corpuscular Volume 91.8 fL (81.0-99.0); Platelet Count 380 10^3/uL (150-450); Red Blood Count 4.38 10^6/uL (4.20-5.40); White Blood Count 5.2 10^3/uL (4.0-11.0)
[2025-08-28 16:12] LABS: Anion Gap 12.0; Blood Urea Nitrogen 18.0 mg/dL (7.0-18.0); Calcium 9.6 mg/dL (8.5-10.1); Carbon Dioxide 31.4 mmol/L (21.0-32.0); Chloride 101 mmol/L (98-107); Estimated GFR (African America >60 (>=60 mL/min/1.73m^2); Estimated GFR (Non-African Ame >60 (>=60 mL/min/1.73m^2); Glucose 97 mg/dL (74-106); Potassium 3.4 mmol/L (3.5-5.1); Sodium 141 mmol/L (136-145)
== END 2025-08-28 15:14 | disposition home or self-care (01) ==
LOC: LAB 15:14
PROVIDERS: PCP Internal Medicine; Visit Provider Internal Medicine
DX: Z01.812 Encounter for preprocedural laboratory examination (principal)
CPT/HCPCS: 36415; 80048; 85025

== ENCOUNTER 2025-09-25 22:55 | Emergency (ER) | payer BC, SELFPAY ==
--- OUTSIDE RECORDS SUMMARY | 2020-03-20 08:00 | XMS_ITS | Continuity of Care Document ---
Author Organization [facility] Address [address] [place] [address] Phone Care Team Providers Care [place] Supervisor Name Role Phone Suresh Patterson Unavailable Unavailable Procedures Procedure Date Covid Testing [facility] Results Test Name Date and Time Measure Units Reference Range Abnormal Flag Status Comments Panel Description: SARS-CoV-2, BOB Final SARS-CoV- 2, BOB 00:45:00 Not Detected Not Detected Final This test was developed and its performance characteristics determinedby [employer]. This test has not been FDA cleared orapproved. This test has been authorized by FDA under an Emergency UseAuthorization (EUA). This test is only authorized for the duration oftime the declaration that circumstances exist justifying theauthorization of the emergency use of in vitro diagnostic tests fordetection of SARS-CoV-2 virus and/or diagnosis of COVID-19 infectionunder section 564(b)(1) of the Act, 21 U.S.C. 360bbb-3(b)(1), unlessthe authorization is terminated or revoked sooner.When diagnostic testing is negative, the possibility of a falsenegative result should be considered in the context of a patient'srecent exposures and the presence of clinical signs and symptomsconsistent with COVID-19. An individual without symptoms of COVID-19and who is not shedding SARS-CoV-2 virus would expect to have anegative (not detected) result in this assay.Performed by:[facility] ([facility]) Panel Description: SARS-CoV-2 Antibody, IgM [facility] SARS-CoV- 2 Antibody, IgM 13:10:00 Negative Negative Final This sample do es not contain detectable SARS-CoV-2 IgM antibodies.This negative result does not rule out SARS-CoV-2 infection.Correlation with epidemiologic risk factors and other clinical andlaboratory findings is recommended. Serologic results should not beused as the sole basis to diagnose or exclude recent [id number].P erformed by:[facility] ([facility]) Panel Description: SARS-CoV-2 Antibody, IgG Fin al SARS-CoV- 2 Antibody, IgG 020 07:27:00 Negative Negative Final This sample do es not contain detectable SARS-CoV-2 IgG antibodies.This negative result does not rule out SARS-CoV-2 infection.Correlation with epidemiologic risk factors and other clinical andlaboratory findings is recommended. Serologic results should not beused as the sole basis to diagnose or exclude recent [id number].T his assay was performed using the [employer] SARS-CoV-2 IgG assay.Performed by:[facility]) Advance Directives Directive Yes / No Effective Date File Name No Information Encounters Encounter Description Practice Location Reason(s) For Visit Diagnoses Date Provider Providers Copied on Encounter [facility], [address] [place] [address], [id number], [place] tel:[phone] COVID [facility] Encounter for screening for other viral diseases Visci DO Prince. [address] [place] [address], [id number], [place]. tel:[phone] Family History Family Member Type Diagnosis Age At Onset No Information Payers Payer name Insurance type Covered libertarian ID Authoriza tion(s) No Information Social History Type Description Quantity Date Captured Comments Alcohol Use Details Unknown Caffeine Use Details Unknown Tobacco Use Status No Information Smoking Status No Information Sex Female Sexual Orientation Straight or heterosexual Gender Identity Female Chief Complaint And Reason For Visit No Information Reason For Referral Reason For Referral No Information History Of Present Illness Encounter Date Complaint History Of Prese nt Illness No Information Functional Status Date Functional Assessmen t No Information Instructions Date Instruction Additional Infor mation No Information Assessments Type Assessment Date assessment Encounter for screening for othe r viral diseases Patient Care Teams Name Effective Dates (start - stop) Status Members No Information
--- OUTSIDE RECORDS SUMMARY | 2024-12-23 06:45 | XMS_ITS ---
Author Organization [facility] Address [address] [place] [address] Care Team Providers Care Residential Life Director Name Role Phone LIANA DAS DO Primary Care Provider Unavaila madhuri DeonnaTracy Blanco Unavailable REASON FOR VISIT lumbar radiculopathy Encounters Encounter Location Date Provider Diagnosis [facility] [address] [place] [address] [facility] M54.16 Assessments Encounter Date Diagnosis (ICD Code) Assessment Notes Treatment Notes Treatment Clinical Notes Section Notes 12/23/2024 Lumbar radiculopathy (ICD-10 - M 54.16) Plan Of Treatment No Information Progress Notes * EMILY CASEY LDOB:1970 (55 yo F)Acc No.[id number]:12/23/2024 MRI Patient: STEVE BASSBY Zayra :?Francis [place]ERSON [facility] [place] MDDOB:1970???Age:54 Y???Sex:FemaleDate:12/23/2024Phone:[phone]:[address] [place] [address]Gnw:LIANA DAS DO Subjective: * Chief Complaints: * 1 . Lumbar radiculopathy. * Medical History: Objective: * Vitals: Assessment: * Assessment: 1.?Lumbar radiculopathy - M54.16 (Primary)??? Plan: * Treatment: * Procedure Codes: 7 2148 MRI Lumbar Spine w/o Dye Forms: * Images: * Electronic signature of Francis Schmitz MD on 09/26/2025 at 12:08 AM EST Sign off status: Pending * Provider: Carmen Mcgraw MD Date: 0 12/23/2024 Generated for Printing/Faxing/eTransmitting on:?09/26/2025 12:08 AM EST
--- OUTSIDE RECORDS SUMMARY | 2024-12-30 05:30 | XMS_ITS ---
Author Organization [facility] Address [address] [place] [address] Care Team Providers Care Assistant Laboratory Director Name Role Phone LIANA DAS DO Primary Care Provider Unavaila Francis Spencer Unavailable [phone] Beka Jones Unavailable [phone] REASON FOR VISIT L4-5 disc Bulge- Referral Dr Blanco Medications Medication SIG (Take, Route, Frequency, Duration) Notes Start Date End Date Status hydrochlorothiazide-losartan 12.5 mg-50 mg 1 tab (s) orally once a day ActivediazePAM 5 mg1 tab(s) orally 1 hour prior to test and 2nd tablet if needed 30 before test [id number]/16/2024Not-TakingPercocet 325 mg-5 mg 1 tab(s) orally every 8 hours As needed Activemetoprolol 25 mg1 tab(s) orally once a dayActive Encounters Encounter Location Date Provider Diagnosis [facility] [address] [place] [address] 12/30/2024 Beka Jones Plan Of Treatment No Information Progress Notes * CASEY DIAZ LDOB:1970 (55 yo F)Acc No.[id number]:12/30/2024 Patient:?CASEY DIAZ :?Beka Jones, MDDOB:1970???Age:54 Y???Sex: FemaleDate:12/30/2024Phone:[phone]:[address] [place] [place], [place]Oqy:LIANA DAS DO Subjective: * Chief Complaints: * 1 . L4-5 disc Bulge- Referral Dr Blanco. * Medical History: * Medications: T aking Percocet 325 mg-5 mg tablet 1 tab(s) orally every 8 hours As needed, Taking metoprolol 25 mg tablet 1 tab(s) orally once a day , Taking hydrochlorothiazide-losartan 12.5 mg-50 mg tablet 1 tab(s) orally once a day , Not-Taking/PRN diazePAM 5 mg tablet 1 tab(s) orally 1 hour prior to test and 2nd tablet if needed 30 before test orally , Medication List reviewed and reconciled with the patient Objective: * Vitals: Assessment: Plan: * Treatment: Forms: * Images: * Electronic signature of Beka Jones MD on 09/26/2025 at 12:07 AM ESTSign off status: Pending * Provider: Mikael Jones MD Date: 0 12/30/2024 Generated for Printing/Faxing/eTransmitting on:?09/26/2025 12:07 AM EST
[2025-09-25 23:00] VITALS: BP 143/85; PULSE 82; TEMP 36.8; O2SAT 100; BMI 24.2
--- NOTE | 2025-09-25 23:45 | ED.GENADUL1 ---
HPI HPI - General Adult General Chief complaint: Extremity Injury, Lower Stated complaint: Pain in R leg Time Seen by Provider: 09/25/25 23:14 Source: patient Mode of arrival: walk-in History of Present Illness HPI narrative: Patient is a healthy 55-year-old female presenting to the emergency department for evaluation of pain and localized swelling behind the right knee. Patient states she noticed the symptoms 2 days ago. She states that since the onset of her symptoms, the pain is gone progressively worse and radiates down the posterior right calf. She states that 5 days ago she had a 4-hour long plane ride she denies injuries to the knee. She denies history of arthritis in the knee. She denies hemoptysis, chest pain, shortness of breath, recent surgeries, oral contraceptive pills, or history of cancer. She states that 15 years ago she was diagnosed with a pulmonary embolism after prolonged immobilization after her hysterectomy. She is not on lifelong anticoagulation. She has similar symptoms to this 1 year ago. She had a duplex ultrasound at that time which was negative for DVT. Related Data Home Medications ?Medication ?Instructions ?Recorded ?Confirmed losartan 50 mg-hydrochlorothiazide 1 tab PO QDAY 03/26/24 09/25/25 12.5 mg tablet metoprolol succinate 25 mg 25 mg PO QDAY 03/26/24 09/25/25 tablet,extended release 24 hr Allergies Allergy/AdvReac Type Severity Reaction Status Date / Time No Known Drug Allergies Allergy Verified 09/25/25 23:00 Review of Systems ROS Status of ROS 10 or more systems reviewed and unremarkable except as noted in history and below PFSH PFSH Social History Little interest or pleasure in doing things: not at all Feeling down, depressed, or hopeless: not at all Exam Narrative Exam Narrative: CONSTITUTIONAL: Well-appearing, answering questions and following commands appropriately SKIN: Was warm and dry. EYES: Sclerae white. EARS, NOSE, THROAT: Moist oral mucosa. RESPIRATORY: Nonlabored respirations. CARDIOVASCULAR: Normal rate and regular rhythm. There is no S3, S4, murmur, rub. Lower extremities are warm and well-perfused GASTROINTESTINAL: Abdomen is nondistended. MUSCULOSKELETAL: In the lateral aspect of the right popliteal fossa there is a 0.5cm small, subcutaneous nodule that is tender to palpation. This is located along a course of the varicose vein. There is tenderness to palpation just distal to this nodule in the proximal posterior calf. The bilateral lower extremities are nonedematous, nonerythematous, and calf circumference are equal. She has full range of motion throughout the right lower extremity. NEUROLOGIC: Patient is awake and alert. Sensation tact light touch throughout the right lower extremity. 5/5 strength of the right lower extremity. Constitutional Vital Signs, click to edit/add: Last Vital Signs Temp 98.2 F 09/25/25 23:00 Pulse 82 09/25/25 23:00 Resp 20 09/25/25 23:00 BP 143/85 H 09/25/25 23:00 Pulse Ox 100 09/25/25 23:00 O2 Del Method Room Air 09/25/25 23:00 Course Vital Signs Vital signs: Vital Signs Temperature 98.2 F 09/25/25 23:00 Pulse Rate 82 09/25/25 23:00 Respiratory Rate 20 09/25/25 23:00 Blood Pressure 143/85 H 09/25/25 23:00 Pulse Oximetry 100 09/25/25 23:00 Oxygen Delivery Method Room Air 09/25/25 23:00 Temperature 98.2 F 09/25/25 23:00 Pulse Rate 82 09/25/25 23:00 Respiratory Rate 20 09/25/25 23:00 Blood Pressure 143/85 H 09/25/25 23:00 Pulse Oximetry 100 09/25/25 23:00 Oxygen Delivery Method Room Air 09/25/25 23:00 Medical Decision Making MDM Narrative Medical decision making narrative: Patient is a 55-year-old female presenting to the emergency department with 2-day history of pain and localized swelling in the right popliteal fossa. Her vital signs on arrival are significant for mild hypertension, otherwise within normal limits. She is afebrile and hemodynamically stable. She is otherwise asymptomatic without chest pain or shortness of breath. The right lower extremity is neurovascularly intact without lower extremity edema. There is no available aircraft systems technician in the hospital at this time. On [id number] bedside ultrasound, I performed a 3 point lower extremity DVT ultrasound. There is compression of the R femoral vein, saphenofemoral junction, common femoral vein, and into the popliteal vein up to the trifurcation into the anterior tibial vein, posterior tibial vein, and peroneal vein. Per my interpretation, this is a negative study for DVT. Over the tender, subcutaneous nodule, there is a superficial vein which appears thrombosed on ultrasound. My clinical impression is that the patient's presentation is secondary to superficial thrombophlebitis. Using the Wells Criteria for DVT, she has a score of 2 (previously documented DVT, localized tenderness along the deep venous system) putting her at moderate risk for DVT. A D-dimer level was obtained which was negative. I do believe the patient is stable for discharge. Patient's presentation is most likely consistent with superficial thrombophlebitis. They were instructed to follow up with her PCP as needed. Return precautions were given including any new or worsening symptoms. Patient understands and agrees to the plan. FINAL IMPRESSION: #Acute superficial thrombophlebitis of the right lower extremity DISPOSITION: Discharged home CONDITION: Good Lab Data Lab results reviewed: Yes I reviewed the patient's lab results Labs: Lab Results 09/25/25 Range/Units 23:35 D-Dimer 0.21 (<=0.59) mg/L FEU Discharge Plan Discharge Chief Complaint: Extremity Injury, Lower Clinical Impression: Superficial thrombophlebitis Patient Disposition: Home, Self-Care Time of Disposition Decision: 00:02 Condition: Good Mode of Transportation: Private Vehicle Prescriptions / Home Meds: No Action metoprolol succinate 25 mg tablet extended release 24 hr 25 mg PO QDAY losartan-hydrochlorothiazide 50-12.5 mg tablet 1 tab PO QDAY Print Language: Lao Instructions: Phlebitis (ED) Referrals: Grady Arriaga DO [Primary Care Provider, Internal Medicine] - 1 week
--- OUTSIDE RECORDS SUMMARY | 2025-09-26 00:07 | XMS_ITS | CCD ---
Author Organization 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 Ulrich Referring [...] Unavailable PIPPA, DR GAINES Primary Care Unavailable PENOBSCOT, DR CARLOS [employer] Unavailable JUAN ., [...] Care Provider Shasha Isaac APRN Attending Provider [phone] Qianae Rosmery MNubia Attending Unavailable Lue, Rosmery [...] Attending Provider UnavailGrady Carrillo DO Attending Provider [phone] Grady Das Attending Unavailable Grady Das Admitting Unavailable Kym Jorgensen APRN Attending Provider Lue, Rosmery M. Referring Unavailable Lue, Rosmery M. Attending Unavailable Lue, Rosmery M. Admitting Unavailable Lue, Rosmery M. Attending Unavailable Lue, Rosmery M. Attending Unavailable Allergies Allergy ClassificationReported Allergen(s)Allergy TypeDate of OnsetReaction(s) Facility (3 sources)patient allergy list reviewed by nurse or physiciaPropensity to adverse ugijvrugi11-06-4440Unxhiob:[facility] [place] Other (3 sources)NONE CURRENTPropensity to adverse xomtzsrdj79-82-9107OZLB CURRENT [facility] [place] Other (3 sources)Allergies ReconciledPropensity to adverse reactionsUnknownNorth Coast [place] Other (5 sources)No Known Medication Allergies; Translations: [No Known Medication Allergies]Propensity to adverse reactions (disorder)[facility] Repository Medications Current Medications MedicationDrug Class(es)DatesSig (Normalized)Sig (Original)aspirin 81 mg delayed release oral tablet (20 sources)Platelet Aggregation Inhibitor, Nonsteroidal Anti-inflammatory Drug Start: 96-53-6107ybav 1 tablet by mouth once dailyaspirin 81 mg Oral EC Tab Oral, Daily, Refills(s) 0 Start Date: 06/10/25 Status: Ordered Repeat number: 1 Start: 61-12-7191zxro 81 mg by mouth once dailyAspirin Low Dose 81 mg, Oral, Daily, Refills(s) 0 Start Date: 05/18/25 Status: Ordered Repeat number:1Start: 89-26-7109boye 1 mg by mouth once dailyaspirin 81 mg Oral EC Tab mg tab(s), Oral, Daily, Refills(s) 0 Start Date: 02/21/22 Status: OrderedStart: 02-21-2022 End: 03-57-2391zfse 1 tablet by mouth once dailyAspirin 81 mg tablet,delayed release (DR/EC) Discontinued 81 MG PO Daily January 08, 2024 12:00am May 05, 2025 2:47pmBaby Aspirin Not-Taking/PRNBaby Aspirin Not-TakingBaby Aspirin Active Augmentin Tablets 875 MG (1 source)Start: 96-95-1236jmix 1 tablet by mouth every twelve hoursAugmentin Tablets 875 MG 1 tab(s) orally bid for 10 day(s) Jul, Activecalcium chloride 0.0014 meq/ml / potassium chloride 0.004 meq/ml / sodium chloride 0.103 meq/ml / sodium lactate 0.028 meq/ml injectable solution (1 source)Start: 40-53-8460FsvoqRMEbfv, at 150 mL/hr, CONTINUOUS, Starting on Sun12/01/24 at 0930cephalexin 500 mg oral capsule (5 sources)Cephalosporin AntibacterialStart: 06-05-2024 End: 06-18-5514dcwf 1 capsule by mouth in the morningcephalexin (Keflex) 500 MG capsule Indications: Acute vaginitis Take 1 capsule (500 mg) by mouth inthe morning and 1 capsule (500 mg) before bedtime. 60 capsule 1 06/05/2024 07/05/2024 ActiveStart: 47-86-0588dpto 1 mg by mouth every twelve hoursKeflex 500 mg Cap mg cap(s), Oral, q12hr, Refills(s) 0 Start Date: 02/21/22 Status: Orderedciprofloxacin 500 mg oral tablet (1 source)Quinolone AntimicrobialStart: 41-83-0805Rleyx 500 mg Tab See Instructions, Take 1 tab day prior to procedure and 1 tab day of procedure after the procedure, # 2 tab(s), Refills(s) 0, Pharmacy: [id number], 169, cm, 02/28/22 9:30:00 EDT, Height/Length Dosing, 95, kg, 02/21/22 14:43:00 EDT, Marciano... Start Date: 02/28/22 Status:OrderedClaritin-D 24 Hour 10-240 MG (1 source)Start: 71-94-5660hejj 10-240 mg by mouth once dailyClaritin-D 24 Hour 10-240 MG 1 tablet Orally Once a day for 30 days May, Active cyclobenzaprine hydrochloride 10 mg oral tablet (1 source)Muscle RelaxantStart: 12-03-2024 End: 89-76-0916kfjj 1 tablet by mouth three times daily as needed for muscle spasmscyclobenzaprine (FLEXERIL) 10 MG tablet Take 1 tablet by mouth 3 times daily as needed for Muscle spasms 21 tablet 12/03/2024 12/13/2024 Active dexamethasone 1 mg/ml / neomycin 3.5 mg/ml / polymyxin b 63220 unt/ml ophthalmic suspension (1 source)Aminoglycoside Antibacterial, Polymyxin-class Antibacterial, CorticosteroidStart: 44-19-1495ydcf 2 drop(s) into the eye(s) four times daily Maxitrol 3.5-63100-4.1 2 drops into affected eye Ophthalmic Four times a day for 4 days Nov, Active0.4 ml enoxaparin sodium 100 mg/ml prefilled syringe (1 source)Low Molecular Weight HeparinStart: 41-64-5615lfhvrj 40 mg by subcutaneous injection once daily40 [...] 30 days ActiveLexapro ActiveFish Oils (2 sources)Start: 94-10-9964Pomrc-3 Fish Oil 1000 mg oral capsule mg cap(s), Oral, Refills(s) 0 Start Date: 04/27/25 Status: Ordered Repeat number: 1 fluticasone propionate 0.05 mg/actuat metered dose nasal spray (10 sources)CorticosteroidStart: 06-13-2024 End: 35-21-8640ebsj 2 spray(s) nasal route once daily as [...] DAILY Complies with drug therapyStart: 04-06-2021 End: 84-42-9234lzjy 1 tablet by mouth once dailyLosartan-Hydrochlorothiazide 50- 12.5 mg tablet Discontinued 1 TAB PO Daily January 08, 2024 12:00amSept2023 8:13hkO8-J0 5000 125 mcg (5000 intl units)-90 mcg oral capsule (2 sources)Start: 42-91-4284E2-D3 5000 125 mcg (5000 intl units)-90 mcg oral capsule cap(s), Oral, Refill(s) 0 Start Date: 04/27/25 Status: Ordered Repeat number: 11 ml ketorolac tromethamine 15 mg/ml cartridge (1 source)Nonsteroidal Anti-inflammatory Drug, Cyclooxygenase InhibitorStart: 12-01-2024 End: 19-78-205339 mg, IntraVENous, EVERY 6 HOURS PRN, Starting on Sun12/01/24 at 0651, Until 12/06/24 at 0650, Pain Moderate (4-6), Do not administer for more than 5 days.lidocaine 0.04 mg/mg medicated patch (1 source)Antiarrhythmic, Amide Local AnestheticStart: patch, TransDERmal, Administer over 12 Hours, DAILY, First dose on Sun12/01/24 at 0900, Apply patch to back. The nutrition aide's recommendations for the number of patches that can be applied within a 24-hour period varies from 1 to 4 times daily and the duration of application varies from 8 to 24 hours; refer to the nutrition aide's labeling for product-specific recommendations.24 hr loratadine 10 mg / pseudoephedrine sulfate 240 mg extended release oral tablet (2 sources)alpha-Adrenergic AgonistStart: 89-21-3929bkhi 1 tablet by mouth every twenty-four hoursClaritin-D 24 Hour 10-240 MG 1 tablet Orally Once a day for 30 days May, ActiveLosartan Potassium-HCTZ (2 sources)Losartan Potassium-HCTZ Eklypa12 ml magnesium sulfate 40 mg/ml injection (1 source)Start: 40-82-1430fgxtxaQMSNTEVquolr 4 mg oral tablet (13 sources)CorticosteroidStart: 12-03-2024 End: 19-79-1298bhxcbsLEADLDPocdzp (MEDROL DOSEPACK) 4 MG tablet Take by mouth. 1 kit 12/03/2024 12/09/2024 ActiveStart: 12-08-2023 End: 50-58-2994kehdqaDNHOATXtcucl (Medrol Dospak) 4 MG tablets TAKE BY MOUTH DIRECTED ON PACKAGE 12/08/2023 06/05/2024 DiscontinuedStart: 48-32-6819Gvjafd 4 MG as directed Orally as directed for 6 days Nov, Haxxhw89 hr metoprolol succinate 25 mg extended release oral tablet (20 sources)beta-Adrenergic BlockerStart: 42-07-5854ldns 1 tablet by mouth once dailyToprol XL 25 mg Tab-ER Oral, Daily, Refills(s) 0 Start Date: 06/10/25 Status: Ordered Repeat number:1Start: 10-02-2024 End: 26-02-8084ssob 1 tablet by mouth once dailyMetoprolol Succinate 25 mg tablet extended release 24 hr Active 0 .ROUTE .COMPLEX March 30, 2025 5:07pm TAKE 1 TABLET BY MOUTH ONCE DAILY Complies with drug therapyStart: 10-02-2024 take 1 tablet by mouth once dailyMetoprolol Succinate 25 mg tablet extended release 24 hr Active 0 .ROUTE .COMPLEX September 9:46am TAKE 1 TABLET BY MOUTH DAILYStart: 05-24-2021 End: 55-37-7362dtdq 1 tablet by mouth once dailyMetoprolol Succinate 25 mg tablet extended release 24 hr Discontinued 25 MG PO Daily January 08, 2024 12:00am October 02, 2024 10:47amtake 1 capsule by mouth once dailyMetoprolol Succinate 25 MG 1 capsule Orally Once a day ActiveMetoprolol Succinate Active ondansetron (ZOFRAN-ODT) disintegrating tablet 4 mg (1 source)Start: 02-78-4912uemsriuzhql (ZOFRAN-ODT) disintegrating tablet 4 mg24 hr phentermine 7.5 mg / topiramate 46 mg extended release oral capsule (12 sources)Sympathomimetic Amine AnorecticStart: 72-15-4691etpm 1 capsule by mouth once daily in the morningQsymia 7.5 mg-46 mg oral capsule, extended release Oral, qAM, Refill(s) 0 Start Date: 06/10/25 Status: Ordered Repeat number: 1Start: 08-33-2639douh 1 capsule by mouth once daily in the morning Qsymia 7.5 mg-46 mg oral capsule, extended release cap(s), Oral, qAM, Refill(s) 0 Start Date: 02/21/22 Status: OrderedPotassium Chloride (20 sources)Start: 11-30-2024 End: 75-98-6633krobarlka chloride 20 mEq/50 mL IVPB (Central Line)Start: 01-08-2024 End: 17-38-8689oxfr 1 tablet by mouth once dailyPotassium Chloride 20 mEq tablet,ER particles/crystals Discontinued 0 .ROUTE .COMPLEX January 08, 2024 5:36pm June 13, 2024 5:24pm TAKE 1 TABLET BY MOUTH DAILYStart: 01-08-2024 End: 92-25-7167vugw 1 tablet by mouth once dailyPotassium Chloride 20 mEq tablet,ER particles/crystals Discontinued 20 MEQ PO Daily January 08, 2024 12:00am January 08, 2024 5:36pmStart: 78-59-2977qfdr 1 tablet by mouth once dailyPotassium Chloride [...] ActivepredniSONE 20 mg oral tablet (1 source)Start: 30-59-1513tgsf 1 tablet by mouth every twelve hourspredniSONE 20 MG 1 tablet Orally bid for 5 day(s) Jul, Cstfyo9787 ml sodium chloride 9 mg/ml injection (3 sources)Start: 30-50-7798Qyktj: -40 mL, IntraVENous, EVERY 12 HOURS SCHEDULED [...] mL Midline or CentralLine = 20 mL/lumenStart: 45-84-6592gstvbycwrrpuzgvz 800 mg / trimethoprim 160 mg oral tablet (9 sources)Dihydrofolate Reductase Inhibitor Antibacterial, Sulfonamide AntimicrobialStart: 23-00-5272sare 1 tablet by mouth every twelve hoursBactrim DS 800-160 MG 1 tablet Orally Twice a day for 10 day(s) Nov, ActiveSuper B Complex oral tablet (2 sources)Start: 35-58-5228Pjhjh B Complex oral tablet 1 tab(s), Oral, Daily, 90 tab(s), Refill(s) 0 Start Date: 04/27/25 Status: Ordered Quantity: 90.0 Unit: tab(s) Repeat number: 1 Completed/Discontinued Medications MedicationDrug Class(es)DatesSig (Normalized)Sig (Original)acetaminophen 325 mg / HYDROcodone bitartrate 5 mg oral tablet (4 sources)Opioid AgonistStart: 06-08-2025 End: 54-23-6467mxfe 1 tablet by mouth every six hours [...] mg oral tablet (11 sources)BenzodiazepineStart: 04-01-2025 End: 58-94-3714Stkqjkoilx 0.25 mg tablet Discontinued 0 PO Once 2 April 01, 2025 5:02pm May 05, 2025 2:47pm 1-2 tablets taken 60 minutes prior to MRI Start: 06-23-2024 End: 09-43-5595xsac 1 tablet by mouth once daily as needed for anxietyAlprazolam 0.25 mg tablet Discontinued 0.25 MG PO Daily as needed for anxiety 07 24June 23, 2024 12:00am April 01, 2025 5:04pmamoxicillin 875 mg / clavulanate 125 mg oral tablet (4 sources)Penicillin-class AntibacterialStart: 05-05-2025 End: 15-11-1742nrfn 1 tablet by mouth twice dailyAmoxicillin-Pot Clavulanate 875-125 mg tablet Discontinued 1 TAB PO Twice daily 03 08May 05, 2025 12:00am June 08, 2025 8:35amazithromycin 250 mg oral tablet (17 sources)Macrolide AntimicrobialStart: 83-46-6437Obhvldizwosv Active 0 PO .COMPLEX June 13, 2024 12:00am For 250 mg dose pack: take 500 mg today (day 1), then 250 mg for 4 days (days 2-5) POStart: 02-01-2024 End: 82-32-5190Synnjdmbtnjq 250 mg tablet Discontinued 0 PO .COMPLEX June 13, 2024 12:00am October 2153:58pm For 250 mg dose pack: take 500 mg today (day 1), then 250 mg for 4 days (days 2-5) PO24 hr buPROPion hydrochloride 150 mg extended release oral tablet (20 sources)AminoketoneStart: 07-21-2024 End: 29-70-5610zmlc 1 tablet by mouth once daily in the morningBupropion Hcl 150 mg tablet extended release 24 hr Discontinued 0 .ROUTE .COMPLEX July 21, 2024 8:43am May 05, 2025 2:47pm TAKE 1 TABLET BY MOUTH EVERY MORNINGStart: 17-24-0753uaiu 1 tablet by mouth once daily in the morningBupropion Hcl 150 mg tablet extended release 24 hr Active 0 .ROUTE .COMPLEX July 21, 2024 7:4 3am TAKE 1 TABLET BY MOUTH EVERY MORNINGStart: 06-23-2024 End: 97-17-6441fiau 1 tablet by mouth once daily in the morningBupropion Hcl (Wellbutrin Xl) 150 mg tablet extended release 24 hr Discontinued 150 MG PO Every morning June 23, 2024 12:00am July 21, 2024 8:43amStart: 38-07-3696khjp 1 tablet by mouth once dailybuPROPion HCl ER (SR) 150 MG Oral Tablet Extended Release 12 Hour Take 1 tablet by mouth daily Quantity: 60 Refills: 0 Ordered: 05-Jul-2021 DO Start : 04-Jul-2021 ActiveWellbutrin Not-TakingWellbutrin Activecefixime 400 mg oral capsule (3 sources)Cephalosporin AntibacterialStart: 05-20-2024 End: 42-65-3254exikjegg (Suprax) capsule 05/20/2024 06/05/2024 Discontinued doxycycline monohydrate 100 mg oral capsule (3 sources)Tetracycline-class DrugStart: 05-20-2024 End: 59-90-8320lnpmojfwwuk (Monodox) 100 MG capsule 05/20/2024 06/05/2024 Discontinuedfluconazole 150 mg oral tablet (11 sources)Azole AntifungalStart: 16-31-9097Rlwhoojn 150 MG 1 tablet Orally as directed Take 1 tablet p.o. today, repeat in 7 days. Dec, Not-Taking/PRN gadoteridol (PROHANCE) injection 15 mL (1 source)Start: 12-02-2024 End: 20-91-6405wvmc 1 dose intravenously once15 mL, IntraVENous, IMG ONCE PRN, 1 dose, Starting on Sun12/02/24 at 0829, Until Sun12/02/24 at 0830, Other1 ml LORazepam 2 mg/ml injection (15 sources)BenzodiazepineStart: 12-01-2024 End: 03-89-2307ypwzli 1 dose intravenously once2 mg, IntraVENous, ONCE, 1 dose, On Sun12/01/24 at 1830, Immediately prior to intravenous use, lorazepam Injection must be diluted with at least an equal volume of compatible solution (NS or D5W)., Please retimed for 30 minutes prior to MRIStart: 01-08-2024 End: 74-04-1291wtlq 1 tablet by mouth once daily as needed for anxietyLorazepam 0.5 mg tablet Discontinued 0.5 MG PO January 08, 2024 12:00am June 13, 2024 5:23pm 1/2 - 1 Orally Once a day PRN anxietyStart: 87-56-2179LAOmowlwc 0.5 MG 1/2 - 1 Orally Once a day PRN anxiety for 30 days Sep, Active1 ml morphine sulfate 2 mg/ml cartridge (2 sources)Opioid AgonistStart: 12-01-2024 End: 04-74-0940cupn 1 dose by mouth every hour1 mg, IntraVENous, ONCE, 1 dose, On Sun12/01/24 at 2300, If oral and IV narcotics ordered, use oralfirst and only use IV if oral is ineffective or cannot take oral. Do Not give oral and IV within 1 hour of each other unless specifically ordered.Start: 48-83-1707olii 1 mg by mouth every four hours [...] 75 mg oral capsule (11 sources)Nitrofuran AntibacterialStart: 98-17-1613wewt 1 capsule by mouth every twelve hoursMacrobid 100 MG 1 cap(s) Orally bid for 5 day(s) Dec, Not-Taking/PRNpantoprazole 40 mg delayed release oral tablet (20 sources)Proton Pump InhibitorStart: 01-08-2024 End: 51-52-6063qwpi 1 tablet by mouth once daily in the morningPantoprazole 40 mg tablet,delayed release (DR/EC) Discontinued 0 .ROUTE .COMPLEX January 08, 2024 5:36pm June 13, 2024 5:23pm TAKE 1 TABLET BY MOUTH EVERY MORNING ON AN EMPTY STOMACHStart: 01-08-2024 End: 14-69-8378jlae 1 tablet by mouth once daily in [...] MORNING ON AN EMPTY STOMACHStart: 01-08-2024 End: 87-15-3937yigl 1 tablet by mouth once dailyPantoprazole 40 mg tablet,delayed release (DR/EC) Discontinued 40 MG PO Daily January 08, 2024 12:00am January 08, 2024 5:36pmStart: 11-76-0470Vfxbnwdr 40 mg tablet Daily, Refills(s) 0 Start Date: 02/21/22 Status: Orderedtake 1 tablet by mouth once daily in the morningPantoprazole Sodium 40 mg TAKE 1 TABLET BY MOUTH EVERY MORNING ON AN EMPTY STOMACH for 30 ActivePantoprazole 40 mg tablet,delayed release (DR/EC) (2 sources)Start: 01-08-2024 End: 05-44-5964otmf 1 tablet by mouth once daily in [...] mg oral tablet (13 sources)HMG-CoA Reductase InhibitorStart: 65-22-6747pqkf 1 tablet by mouth once daily in the eveningRosuvastatin Calcium 10 MG Oral Tablet TAKE 1 TABLET BY MOUTH EVERY EVENING Quantity: 30 Refills: 0Ordered: 23-Sep-2021 DO Start : 24-May-2021 ActiveCrestor Not-Taking/PRNCrestor Not-TakingCrestor Active sulfacetamide sodium 100 mg/ml ophthalmic solution (12 sources)Sulfonamide AntibacterialStart: 02-01-2024 End: 43-35-3210pqxm 1 drop(s) into the eye(s) four times dailySulfacetamide Sodium 10 % drops Discontinued 2 DROPS EYE-BOTH Four times daily 02 18January 312:00am June 13, 2024 5:24pmStart: 02-01-2024 End: 48-71-1278qsqk 1 drop(s) into the eye(s) four times dailySulfacetamide Sodium 10 % drops Discontinued 2 DROPS EYE-BOTH Four times daily 02 18January 301:00pm June 13, 2024 4:24pmStart: 02-01-2024 End: 54-94-3861azwl 1 drop(s) into the eye(s) four times dailySulfacetamide Sodium Discontinued 2 DROPS EYE-BOTH Four times daily 02 18February 01, 2024 12:00am June 13, 2024 5:24pmStart: 96-23-2376kixq 2 drop(s) into the eye(s) four times dailySulfacetamide Sodium 10 % 2 drops Ophthalmic qid for 7 days May, ActivetiZANidine 4 mg oral tablet (1 source)Central alpha-2 Adrenergic AgonistStart: 12-01-2024 End: 73-02-8553rqve 1 dose by mouth once4 mg, Oral, ONCE, 1 dose, On Sun12/01/24 at 2300traMADol hydrochloride 50 mg oral tablet (5 sources)Opioid AgonistStart: 12-04-2024 End: 66-15-9995eylq 1 tablet by mouth every eight hours as needed for pain Tramadol 50 mg tablet Discontinued 50 MG PO Every 8 hours as needed for pain 11 05December 04, 2024 1:00am May 05, 2025 2:47pmtriamcinolone acetonide 40 mg/ml injectable suspension (16 sources)CorticosteroidStart: 01-89-8995Ehuiuaw-40 Aug, 60 mgStart: 06-02-7943Cdlihva-40 Apr, 40 mgzolpidem tartrate 5 mg oral tablet (17 sources)gamma-Aminobutyric Acid-ergic AgonistStart: 10-21-2024 End: 74-06-4191trhi 1 tablet by mouth once daily at bedtime as needed for sleep Zolpidem 5 mg tablet Discontinued 5 MG PO Daily at bedtime as needed for sleep February 13, 2025 11:50am June 08, 2025 8:52am Problems Active Problems Problem ClassificationProblemDateDocumented DateEpisodic/ChronicAcquired foot deformities (1 source)Foot drop, right footEpisodicAnxiety disorders (20 sources)Generalized anxiety disorder; Translations: [Generalized anxiety disorder]65-83-6319AnrbfafFjrbhgnil-deficit, conduct, and disruptive behavior disorders (3 sources)Attention deficit hyperactivity disorder, predominantly inattentive type; Translations: [Attention deficit disorder of childhood without mention of hyperactivity]Onset: 13-68-3535IskaaorTmdzffe tract disease (2 sources)Gallstone; Translations: [Calculus of gallbladder without cholecystitis without obstruction]Onset: 205891-97-8213LmbxomyzLbcqen of kidney and renal pelvis (2 sources)Malignant tumor of kidney; Translations: [Malignant neoplasm of unspecified kidney, except renal pelvis]Onset: 55-63-8474XpnqgekCyvmzvj dysrhythmias (3 sources)Nonsustained ventricular tachycardia ; Translations: [Paroxysmal ventricular tachycardia]ChronicCardiac dysrhythmias (20 sources)Palpitations; Translations: [Palpitations]66-49-7527Brftgyvi Conditions associated with dizziness or vertigo (15 sources)Dizziness; Translations: [Dizziness and giddiness]EpisodicDeficiency and other anemia (9 sources)Anemia; Translations: [Anemia, unspecified]29-85-1531GyonftnmLnsbpuka mellitus without complication (14 sources)Impaired fasting glycemia; Translations: [Impaired fasting glucose] Onset: 33-70-8466TvxstbkjPgspkovfsq disorders (8 sources)Esophageal reflux finding; Translations: [Esophageal reflux]Onset: 18-11-2566LpmazxtDuinxhhmpr disorders (8 sources)Esophageal disorders; Translations: [Gastroesophageal reflux disease with esophagitis without hemorrhage]Essential hypertension (20 sources)Hypertensive disorder; Translations: [Unspecified essential hypertension]Onset: 952312-42-4592BtctqmzBhots and electrolyte disorders (14 sources)Hypokalemia; Translations: [Hypokalemia]Onset: 98-96-7668Fctoaott Genitourinary symptoms and ill-defined conditions (11 sources)Retention of urine; Translations: [Retention of urine, unspecified] Onset: 01-01-2022 Resolved: 96-16-8850BzfajiqrZsgvjegv; including migraine (13 sources)Migraine with aura; Translations: [Migraine with aura, not intractable, without status migrainosus]ChronicHeadache; including migraine (1 source)Headache; including migraine; Translations: [HEADACHE UNSPECIFIED] Onset: 43-41-5196Cbzhnrqhvkhb; infection of eye (except that caused by tuberculosis or sexually transmitteddisease) (17 sources)Allergic dermatitis of unspecified eye, unspecified eyelid; Translations: [Contact or allergic eyelid dermatitis]Onset: 84-38-8797Xikywxvg Influenza (3 sources)Upper respiratory tract infection due to Influenza; Translations: [Influenza due to unidentified influenza virus with other respiratory manifestations]EpisodicMiscellaneous mental health disorders (20 sources)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; 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] 11-26-5133BymyxclKxwp disorders (20 sources)Mild recurrent major depression; Translations: [Major depressive disorder, recurrent, mild]Onset: 08-24-2015 Resolved: 80-47-1142DgunhnwKaeqt connective tissue disease (1 source)Pain in right foot; Translations: [PAIN IN RIGHT FOOT]Onset: 45-42-8050LmrssarjPccwb diseases of bladder and urethra (4 sources)Urethral stricture; Translations: [Unspecified urethral stricture, female]Onset: 58-99-8251ArcuemlpIlqtl diseases of kidney and ureters (12 sources)Renal mass; Translations: [Other specified disorders of kidney and ureter]Onset: 655611-99-3454WzfqfsyKrrlbwo on above:CT: 1.5cm right renal mass - T: 1.5cm right renal mass - 11/2024MRI: 1.7cm right renal mass - 04/2025Other diseases of kidney and ureters (1 source)Other specified disorders of kidney and ureter; Translations: [Unspecified disorder of kidney and ureter]14-25-2984YtqmfczFyipd diseases of kidney and ureters (1 source)Disorder of kidney and/or ureter; Translations: [Other specified disorders of kidney and ureter]Onset: 96-60-9345CtaoffmWrllv endocrine disorders (13 sources)Disorder of endocrine system; Translations: [Endocrine disorder, unspecified]Onset: 50-47-6509QubwxzfjMgywf endocrine disorders (5 sources)Endocrine disorder, unspecified; Translations: [ENDOCRINE DISORDER UNSPECIFIED]Onset: 98-88-8297CtvkifrqUekiq gastrointestinal disorders (5 sources)Constipation; Translations: [Constipation, unspecified]06-08-2025 EpisodicOther liver diseases (4 sources)Fatty (change of) liver, not elsewhere classified; Translations: [Metabolic dysfunction-associated steatotic liver disease (MASLD)]06-08-2025 ChronicOther nervous system disorders (7 sources)Common peroneal nerve paralysis; 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, right lower limb]ChronicOther non-traumatic joint disorders (4 sources)Pain in right ankle and joints of right foot; Translations: [PAIN IN RIGHT ANKLE]Onset: 02-41-1016WtambqxdCxoyc nutritional; endocrine; and metabolic disorders (15 sources)Obesity; Translations: [Obesity, unspecified]ChronicOther nutritional; endocrine; and metabolic disorders (3 sources)Simple obesity ; Translations: [Other obesity due to excess calories] Onset: 18-34-1904KnodbogEondp nutritional; endocrine; and metabolic disorders (6 sources)Body mass index 30+ - obesity; Translations: [Body mass index 31.0- 31.9, adult]Onset: 92-31-5432HkkwtueSrkek nutritional; endocrine; and metabolic disorders (3 sources)Obese class I; Translations: [Body mass index 32.0-32.9, adult]Onset: 26-71-4362RsfffreAzeno nutritional; endocrine; and metabolic disorders (1 source)Overweight in adulthood with body mass index of 25 or more but less than 30; Translations: [Overweight]EpisodicOther screening for suspected conditions (not mental disorders or infectious disease) (20 sources)Electrocardiogram abnormal; Translations: [Nonspecific abnormal electrocardiogram [ECG] [EKG]]Onset: 11-30-2022 Resolved: 72-31-4840KbjqsxtnGsofl skin disorders (13 sources)Vesicular eczema of hands and/or feet; Translations: [Dyshidrosis [pompholyx]]EpisodicOther upper respiratory disease (17 sources)Seasonal allergic rhinitis; Translations: [Other seasonal allergic rhinitis]ChronicOther upper respiratory disease (3 sources)Other seasonal allergic rhinitisChronicOther upper respiratory disease (3 sources)Allergic rhinitis; Translations: [Allergic rhinitis, unspecified] Onset: 30-79-5969WqcibjqMrxes upper respiratory disease (2 sources)Seasonal allergy; Translations: [Other seasonal allergic rhinitis] ChronicOther upper respiratory infections (20 sources)Acute sinusitis, unspecified; Translations: [Acute pharyngitis] Onset: 09-08-2013 Resolved: 39-86-9267ZyuawkwvIhueobemgw disorders (not diabetes) (4 sources)Gallstone acute pancreatitis; Translations: [Biliary acute pancreatitis without necrosis or infection]Onset: 970681-35-3737Agyfcvxn Residual codes; unclassified (1 source)Acquired absence of other specified parts of digestive tract; Translations: [Other acquired absenceof organ]62-14-2814HwmqmkefMhfraczinjd; intervertebral disc disorders; other back problems (8 sources)Cervicalgia; Translations: [Low back pain]Onset: 93-53-0989Kngjjovm Sprains and strains (6 sources)Neck sprain; Translations: [Neck sprain and strain]Onset: 01-09-2019 EpisodicUnclassified (3 sources)Other ventricular tachycardia; Translations: [Other ventricular tachycardia]Urinary tract infections (10 sources)Urinary tract infectious disease; Translations: [Urinary tract infection, site not specified]Onset: 01-01-2022 Resolved: 07-63-4917Lhznrofo Past or Other Problems Problem ClassificationProblemDateDocumented DateEpisodic/ChronicAbdominal pain (3 sources)Abdominal pain; Translations: [Unspecified abdominal pain]Onset: 15-30-2910OlsmrddaOwchqmvpd infection; unspecified site (3 sources)Bacterial infectious disease; Translations: [Bacterial infection, unspecified, in conditions classified elsewhere and of unspecified site]Onset: 43-36-8130TuqgqjmgSpemubje; including migraine (6 sources)Idiopathic stabbing headache; 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]Onset: 01-09-2019 Resolved: 94-81-5300RlmbcawnPutxgvlrrbzxu and screening for infectious disease (4 sources)Contact with and (suspected) exposure to other viral communicable diseases; Translations: [Contact with and (suspected) exposure to other viral communicable diseases Z20.828]Onset: 08-03-2021 Resolved: 41-42-6230AmahnfvgLhqafwnrphpx diseases of female pelvic organs (2 sources)Acute vaginitis; Translations: [Acute vaginitis]16-74-6147Urlwapxt Malaise and fatigue (3 sources)Fatigue; Translations: [Other fatigue]Onset: 02-01-2022 Resolved: 59-31-5621AlsjjqoxGwhppjhoxchus mental health disorders (3 sources)Emotional state finding; Translations: [Other symptoms and signs involving emotional state] Resolved: 07-86-6380GgnmwwxyTikbjl and vomiting (3 sources)Nausea and vomiting; Translations: [Nausea with vomiting, unspecified]Onset: 00-48-4712CwighbyvHgndr aftercare (1 source)Other supervisor intermediates (current) drug therapy; Translations: [OTH BENDER HELPER CURRENT DRUG THERAPY]Onset: 58-12-3524RnoxmmxfAopot connective tissue disease (1 source)Cramp and spasm; Translations: [CRAMP AND SPASM]Onset: 07-18-2022 EpisodicOther connective tissue disease (3 sources)Spasm; Translations: [Spasm of muscle]Onset: 23-56-8434KefgtdmlYnyji endocrine disorders (4 sources)Other specified endocrine disorders; Translations: [OTHER SPECIFIED ENDOCRINE DISORDERS]Onset: 49-13-1303BvxyaksaTkkgb lower respiratory disease (3 sources)Dyspnea; Translations: [Shortness of breath] Resolved: 02-77-5227OirxmratJclwu nutritional; endocrine; and metabolic disorders (3 sources)Abnormal weight gain; Translations: [Abnormal weight gain]Onset: 34-45-7584EjdpwffhOrrev nutritional; endocrine; and metabolic disorders (3 sources)Overweight; Translations: [Overweight]Onset: 10-99-3811NvavyrmxFkprr nutritional; endocrine; and metabolic disorders (3 sources)Body mass index 25-29 - overweight; Translations: [Body mass index 28.0-28.9, adult]Onset: 16-15-6469OmvtvyzlTkmtc skin disorders (3 sources)Sebaceous cyst; Translations: [Sebaceous cyst]Onset: 02-25-2015 EpisodicOtitis media and related conditions (7 sources)Eustachian tube salpingitis; Translations: [Unspecified Eustachian salpingitis, right ear]Onset: 12-26-2017 Resolved: 43-61-0258SgkzascoNottylgc codes; unclassified (15 sources)Postmenopausal state; Translations: [Asymptomatic menopausal state] Onset: 904335-04-9927UizpinnyPgeovdeh codes; unclassified (6 sources)History of partial nephrectomy; Translations: [Acquired absence of kidney]Onset: 789563-76-5656OjhjqhqeDrslhcjqowao (2 sources)Never smoked tobacco; Translations: [Never a smoker]Unclassified (9 sources)NSVT (nonsustained ventricular tachycardia); Translations: [NSVT (nonsustained ventricular tachycardia)]Unclassified (1 source)Contact with and (suspected) exposure to covid-19 Z20.822Unclassified (3 sources)General observation; Translations: [Observation following other accident]Onset: 40-94-2442Xtiut infection (1 source)COVID-19 Results Test NameValueInterpretationReference RangeFacilityAmbulatory Visit Summaryon 00-40-1175Yecumrulkr Visit SummaryAmbulatory Visit Summary JENNIFER ZAMORA :1970 [...] Complex oral tablet) omega-3 polyunsaturated fatty acids ([place]-3 Fish Oil 1000 mg oral capsule) phentermine-topiramate [...] Mckay, URL, URO When: Where: [address] [place] [address] [phone] You Need to Complete the Following Comprehensive [...] No, Renal cell carcinoma, pp_set_radiology_subspecialty, [facility] Medications What How Much When Instructions Unchanged [...] or concerns Unchanged omega-3 polyunsaturated fatty acids ([place]-3 Fish Oil 1000 mg oral capsule) By [...] signed up for this yet, please contact [employer] at [phone] to get signed up today. Language Information Language assistance services are available as needed. [facility] CenterUrology Office/Clinic Noteon 30-67-9764Xxumflv Office/Clinic NoteUrology Office/Clinic Note Chief Complaint 2 [...] Information Audie MADERA, Rosmery Mckay, URL, [facility] [address] [place] [address]- [phone] Additional Instructions: 3 mos w/ CT Abd [...] Tab, 25 mg= 1 tab(s), Oral, Daily [place]-3 Fish Oil 1000 mg oral capsule, Oral [...] Results Bilirubin Urine Dipst (more content not included)...[facility] HospitalComment on above:Result Comment: Electronically Signed By: Rosmery Bronson MD\.br\Date and Time Signed: 06/18/25 10:42EDT\.br\Electronically Co-Signed By: Katie Mccoy\.br\Date and Time Co-Signed: 06/18/25 09:25 EDTSurgical Pathology Reporton 58-34-7499Dqjfllhp Pathology Report[address] [place] [address]- Surgical Pathology Report Collected Date/Time: 06/02/2025 15:00 [...] EDT Audie MADERA, Rosmery Bronson MD, Rosmery Mckya Gross Description cm of round light brown [...] characteristics were determined by the [facility] Surgical Pathology. They have not been [...] recognition technology and might contain unintended computerized automatic operator errors. Microscopic examination performed unless gross only specified. Quality was accessed and acceptable.NormalLakehealth Tripoint Medical CenterComment on above:Performed By: #### [id number] #### [facility] [address], [place] [address]Pdjnjbkxvi - Chemistry and Chemistry - challengeOrdered By: Grady Das on 38-28-6539Horpvhrwb Ql (U)NegativeNEGKindred Hospital DaytonGlucose (U) [Mass/Vol]NegativeNEGKindred Hospital DaytonKetones Ql (U)NegativeNEGKindred Hospital DaytonpH (U)6.0 [pH]5.0-9.0[facility], Incpecific gravity (U) [Rel density] 1.0101.005-1.025Ohio Valley HospitalUrobilinogen Qn (U)0.2 {Ciara'U}/dL0.2-1.0[facility] HospitalLaboratory - Specimen informationOrdered By: Grady Das on 47-34-7469Cypexbirsm (U)CLEARCLEAR [facility] HospitalColor (U)LT. YELLOWYELLOWOhio Valley HospitalLaboratory - UrinalysisOrdered By: Grady Das on 06-08-2025 Leukocyte esterase Test strip Ql (U)NegativeNEGKindred Hospital DaytonMucus Ql (Urine sed)NONE SEENNONE [facility] Nitrite Ql (U)NegativeNEGKindred Hospital DaytonProtein Ql (U) NegativeNEG/TRACEOhio Valley HospitalNo Panel InformationOrdered By: Grady Das on 02-36-7011Zyewn BacteriaNONE SEEN #/HPFNONE [facility] HospitalUrine Occult BloodSMALLAbnormalNEGATIVEOhio Valley HospitalUrine Other CastsNONE SEEN #/LPFNONE SEENOhio Valley HospitalUrine Other CrystalsNone Seen #/HPFNone [facility] Medical CenterUrine RBC0-2 #/HPF0-2FMercy Health St. Joseph Warren HospitalUrine Squamous Epithelial CellsNONE SEEN #/LPFNONE/RAREOhio Valley HospitalUrine WBC0-2 #/HPFAbnormalNONE SEENOhio Valley HospitalUrine Cultureon 34-62-1307Rzempnwc identified Cx Nom (U)No Growth 2 Days PERFORMED BY: [facility] [address] [place] [address] PATHOLOGIST BEREAVEMENT COORDINATOR KELLEY KOWALSKI M.D.NormalSt. Mary'S Medical Center Physician GroupComment on above: Performed By: #### CUU #### [facility] [address] [place] [address] USAUrine cultureOrdered By: Grady Das on 06-08-2025 Bacteria identified Cx Nom (U)No Growth 2 DaysOhio Valley Hospital BMPon 00-47-1622Ulhti gap [Moles/Vol]9 mmol/LNormal6-16L[facility] Tripoint Medical CenterComment on above:Performed By: #### [id number] #### [facility] [address], [place] [address]NMJ/Creat Ratio26 No AfdmzJxxy43-91TtsbdqLakehealth Tripoint Medical Center Comment on above:Performed By: #### [id number] #### [facility] [address], [place] [address]Tuvhisw [Mass/Vol]8.6 mg/dLLow8.9-11.1FProMedica Defiance Regional HospitalComment on above:Performed By: #### [id number] #### [facility] [address], [place] [address]Okfkcbuz [Moles/Vol]103 mmol/MLfmkxi279-284PvblkwLakehealth Tripoint Medical CenterComment on above:Performed By: #### [id number] #### [facility] [address], [place] [address]PC0 [Moles/Vol]27 mmol/VSwrmbq74-03CmavbpLakehealth Tripoint Medical Center Comment on above:Performed By: #### [id number] #### [facility] [address], [place] [address]Poehvdjazb [Mass/Vol]0.7 mg/dLNormal0.5-1.3FProMedica Defiance Regional HospitalComment on above:Performed By: #### [id number] #### [facility] [address], [place] [address]Aztxagu [Mass/Vol]100 mg/hWIjjhrk98-155BweogoLakehealth Tripoint Medical CenterComment on above:Performed By: #### [id number] #### [facility] [address] [place] [address]Soarmrndw [Moles/Vol]4.2 mmol/LNormal3.5-5.3FProMedica Defiance Regional HospitalComment on above:Performed By: #### [id number] #### [facility] [address] [place] [address]Sldbko [Moles/Vol]135 mmol/UMlwfok557-892EeseitLakehealth Tripoint Medical CenterComment on above:Performed By: #### [id number] #### [facility] [address] [place] [address]Vvsv nitrogen [Mass/Vol]18 mg/dLNormal5-21L[facility] Tripoint Medical CenterComment on above:Performed By: #### [id number] #### [facility] [address], [place] [address]TNR w/ Auto Diffon 98-95-8269Peosyspd Absolute0.0 E9/LNormal 0.0-0.2FProMedica Defiance Regional HospitalComment on above:Performed By: #### [id number] #### [facility] [address], [place] [address]Jnsgjwyzd/100 WBC (Bld)0.1 %Normal0.0-2.0L[facility] Tripoint Medical CenterComment on above:Performed By: #### [id number] #### [facility] [address], [place] [address]Evt Absolute0.0 E9/LNormal0.0-0.5FProMedica Defiance Regional Hospital Comment on above:Performed By: #### [id number] #### [facility] [address] [place] [address]Wdfscluulje/100 WBC (Bld)0.0 %Normal0.0-8.0L[facility] Tripoint Medical CenterComment on above:Performed By: #### [id number] #### [facility] [address] [place] [address]Lshcggseddl distribution width (RBC) [Ratio]12.9 %Normal 10.9-14.2FProMedica Defiance Regional HospitalComment on above:Performed By: #### [id number] #### [facility] [address] [place] [address]Pristgpajz (Bld) [Volume fraction]37.2 %Cimmoa66.0-46.0L[facility] Tripoint Medical CenterComment on above:Performed By: #### [id number] #### [facility] [address] [place] [address]Dvldemifww (Bld) [Mass/Vol]13.0 g/lFGohvft04.0-16.0L[facility] Tri[facility] Medical CenterComment on above:Performed By: #### [id number] #### [facility] [address] [place] [address]Hkcbc Absolute1.1 E9/LNormal1.0-4.0[facility] Comment on above:Performed By: #### [id number] #### [facility] [address] [place] [address]Ondtbzxtypr/100 WBC (Bld)11.8 %Low14.0-50.0L[facility] Tripoint Medical CenterComment on above:Performed By: #### [id number] #### [facility] [address] [place] [address]ORQ (RBC) [Entitic mass]31.8 gfJvweuk04.0-34.0[facility] Medical CenterComment on above:Performed By: #### [id number] #### [facility] [address], [place] [address]JHHX (RBC) [Mass/Vol]35.0 g/vYRobqfz31.4-36.0[facility] Medical CenterComment on above:Performed By: #### [id number] #### [facility] [address], [place] [address]IIR (RBC) [Entitic vol]90.8 nDIufrwx87.0-100.0L[facility] Medical CenterComment on above:Performed By: #### [id number] #### [facility] [address], [place] [address]Tetw Absolute0.6 E9/LNormal0.2-1.0[facility] Comment on above:Performed By: #### [id number] #### [facility] [address], [place] [address]Vjjraxnlp/100 WBC (Bld)6.9 %Normal4.0-14.0L[facility] Medical CenterComment on above:Performed By: #### [id number] #### [facility] [address], [place] [address]Nrtxek Absolute7.4 E9/LNormal2.0-7.5FProMedica Defiance Regional Hospital Comment on above:Performed By: #### [id number] #### [facility] [address], [place] [address]Xyevfo Auto81.2 %High36.0-75.0[facility] Comment on above:Performed By: #### [id number] #### [facility] [address], [place] [address]Difpsgub695.0 E9/FHehcjq083.0-500.0[facility] Comment on above:Performed By: #### [id number] #### [facility] [address], [place] [address]Dkdwrtmp mean volume (Bld) [Entitic vol]7.8 fLNormal6.4-10.8 [facility] Medical CenterComment on above:Performed By: #### [id number] #### [facility] [address], [place] [address]WYO6.1 E12/LLow4.3-5.9L[facility] Tripoint Medical CenterComment on above:Performed By: #### [id number] #### [facility] [address], [place] [address]UJZ1.1 E9/LNormal4.0-11.0L[facility] Medical CenterComment on above:Performed By: #### [id number] #### [facility] [address], [place] [address]Lxvjcropi Note-Nursingon 32-05-3397Gyyzoknog Note-Nursing Discharge Note-Nursing JENNIFER ZAMORA :1970 Visit [...] physician. This Is Your Medications List acetaminophen-hydrocodone (Hammon 325 mg-5 mg oral tablet) aspirin (Aspirin Low Dose) cholecalciferol-menaquinone (K2-D3 5000 125 mcg (5000 intl units)-90 mcg oral capsule) hydrochlorothiazide-losartan (hydrochlorothiazide-losartan 12.5 mg-50 mg Tab) metoprolol (metoprolol succinate 25 mg ER Tab) multivitamin (Super B Complex oral tablet) omega-3 polyunsaturated fatty acids ([place]-3 Fish Oil 1000 mg oral capsule) zolpidem [...] MADERA, Rosmery Mckay Where: [facility] [address], [address] [place] [address]- New Follow Up Appointments after Discharge Follow Up with GRADY DAS When: 06/08/2025 08:30 AM EDT Where: [address] [facility], [place] [address]- Business (1) Follow Up with Rosmery Bronson When: Comments: Office to schedule your follow up in 2 weeks for pathology review and postop check Where: [address], [address] [facility] [address] [place] [phone] Business (1) Medications What How Much When Why Instructions Next Dose New acetaminophen-hydrocodone (Hammon 325 mg-5 mg oral tablet) 2 Tablets By Mouth Every 4 hours as needed for as needed for pain Acute post-operative pain Renal mass, right Duration: 3 Days Take 1-2 tabs every 4 hours as needed for moderate to severe pain. Not to exceed 8 tablets/ day Pickup at [facility]/pharmacy #[id number] 06/03/25 4:20pm Unchanged aspirin (Aspirin [...] day Resume Unchanged omega-3 polyunsaturated fatty acids ([place]-3 Fish Oil 1000 mg oral capsule) By Mouth Resume Unchanged zolpidem (zolpidem 5 mg Tab) Resume Pharmacy Information [facility]/pharmacy #[id number]: [address] [place], [place] [id number] [phone] Test Results CBC BMP WBC: 9.1 E9/L [...] to care for y (more content not included)...[facility] HospitalInpatient Clinical Summaryon 95-85-8770Gbgepiamk Clinical SummaryInpatient Clinical Summary [address] [address] Clinical Summary Person Information: Name: JENNIFER ZAMORA Age: 54 Years : 1970 Sex: Female PCP: GRADY DAS DO Marital Status: Race: White Ethnicity: Non- or Language: Vietnamese Visit Id: Visit Reason: RENAL MASS Speciality: Acuity: Enc Type: Outpatient in a Bed Med Service: Surgery Arrival: 06/02/2025 07:30:02 Discharge: Dispo Type: Address: [address] [place] [id number] Provider Notes: Patient: JENNIFER ZAMORA Age: 54 [...] % HI Lymph Auto 11.8 % LOW [place]ergus Auto 6.9 % Eos Auto 0.0 % Basophil Auto 0.1 % Neutro Absolute 7.4 E9/L Lymph Absolute 1.1 E9/L [place]ergus Absolute 0.6 E9/L Eos Absolute 0.0 E9/L [...] Documented This Visit Final Med List: acetaminophen-hydrocodone (Hammon 325 mg-5 mg oral tablet) 2 Tablets [...] ER Tab) 1 Tab (more content not included)...[facility] HospitalInpatient Patient Summaryon 18-50-5800Yhlkfccay Patient SummaryInpatient Patient Summary [place] [address] Patient Discharge Instructions PERSON INFORMATION Name: JENNIFER [...] With: Address: When: GRADY DAS [address] [place], [place] [id number] Business (1) 06/08/2025 8:30 AM With: Address: When: Rosmery Audie [address] [place] [address], [address] [phone] Business (1) Comments: Office to schedule your follow up in 2 weeks for pathology review and postop check In the event that this physician does not participate in your insurance network, please consult with your insurance company to find a nearby participating provider. Type Location Start [facility] Office Visit [facility] 06/18/2025 8:45 AM 06/18/2025 9:00 AM Confirmed Comment: EMILY Morales LIBBY L, have received the attached patient education materials/instructions and have verbalized understanding: Patient Signature Date Clinican/Nurse Signature Date HERE ARE THE MEDICATION CHANGES THAT OCCURRED DURING YOUR HOSPITAL STAY New Medications [id number], [address], [place] [id number], [phone] acetaminophen-hydrocodone (Hammon 325 mg-5 mg oral tablet) 2 Tablets [...] Dose: Next Dose: omega-3 polyunsaturated fatty acids ([place]-3 Fish Oil 1000 mg oral capsule) By Mouth. Last Dose: Next Dose: zolpidem (zolpidem 5 mg Tab) Last Dose: Next Dose: Comment: MEDICATION LIST PROVIDED FOR YOU IS A LIST OF YOUR CURRENT MEDICATIONS. PLEASE CARRY THIS WITH YOU AT ALL TIMES. acetaminophen-hydrocodone (Hammon 325 mg-5 mg oral tablet) 2 Tablets [...] Mouth every day. omega-3 polyunsaturated fatty acids ([place]-3 Fish Oil 1000 mg oral capsule) By Mouth. zolpidem (zolpidem 5 mg Tab) Pharmacy Information: Comment: (more content not included)...[facility] HospitalInterdisciplinary Note - Case Manageron 80-38-8805Wjqcieknkrhhyqrcv Note - Drilling Plant Operator Interdisciplinary Note - Drilling Plant Operator Patient is awake and alert in bed, previously rounded with Urology. Patient is up in chair, feelingbetter. States her Dr will call to check on her this afternoon, and plan to DC home later today. Patient is independent at home with spouse and he will transport at [place]. Declines any concerns or DC needs. CRM following. . PCP verified and insurance information reviewed and DME discussed. Contact information provided and white board updated.[facility] Ruby [facility] HospitalComment on above:Result Comment: Electronically Signed By: Cathleen FLORENTINO, Yaneth\.alan\Date and Time Signed: 06/03/25 09:39 EDTMain OR Intraoperative Recordon [id number] OR Intraoperative RecordMain OR Intraoperative Record IntraOp Document Type FT Summary Primary Physician: Rosmery Bronson MD Finalized Date/Time: 06/03/25 09:35:39 Pt. Name: JENNIFER ZAMORA.O.B./Sex: 1970 Female Med Rec #: [id number] Physician: Rosmery Bronson MD Financial #: [id number] Pt. Type: O Room/Bed: N317/01 Admit/Disch: 06/02/25 [...] AT 1457. SURGEON AT [employer] FROM [phone].MISHEL SUMMERS. CLAMP TIME FROM [id number], 24 MINS AND 25 SECONDS.MISHEL SUMMERS. Case Attendance FT Entry 1 Entry 2 Entry 3 Case Attendee Mariajose [facility], Dawson Bronson MD, Shalini Balderas Role Performed Anesthesiologist Surgeon - Primary Ice Skating Instructor - Primary Marketing Lead Time In 06/02/25 09:43:00 06/02/25 09:43:00 06/02/25 09:43:00 Time Out 06/02/25 14:21:00 06/02/25 15:25:00 06/02/25 15:25:00 Procedure NEPHRECTOMY PARTIAL, NEPHRECTOMY PARTIAL, NEPHRECTOMY PARTIAL, ROBOT ASSISTED(Right) ROBOT ASSISTED(Right) ROBOT ASSISTED(Right) Comments IS SUPERVISING OUT FOR LUNCH 1240- Last Modified By: Shalini Tarango Kelsie E Burgderfer, Kelsie E 06/02/25 15:31:27 06/02/25 15:31:27 06/02/25 15:31:27 Entry 4 Entry 5 Entry 6 Case Attendee Moy BODY MAKE UP ARTIST, Porsha Singh BODY MAKE UP ARTIST, Fang Denny RN, Connie E Role Performed Scrub - Primary BODY MAKE UP ARTIST/SA Ice Skating Instructor - Relief Time In 06/02/25 09:43:00 06/02/25 [...] Case Attendee Francisco DRISCOLL, Veronika Baxter DNP, LPN MEDICAL ASSISTANT, [place] Role Performed BODY MAKE UP ARTIST/SA Scrub - Relief LPN MEDICAL ASSISTANT Time In 06/02/25 12:49:00 06/02/25 12:50:00 06/02/25 14:20:00 Time Out 06/02/25 14:04:00 06/02/25 13:51:00 06/02/25 14:57:00 Procedure NEPHRECTOMY PARTIAL, NEPHRECTOMY PARTIAL, NEPHRECTOMY PARTIAL, ROBOT ASSISTED(Right) ROBOT ASSISTED(Right) ROBOT ASSISTED(Right) Comments LUNCH RELIEF FOR IS SUPERVISING ZHENG,BODY MAKE UP ARTIST/SA Last Modified By: Shalini Tarango Kelsie E Burgderfer, Kelsie E 06/02/25 15:31:27 06/02/25 15:31:27 06/02/25 15:31:27 Entry 10 Case Attendee Yoselin Jacobs CRNA Role Performed LPN MEDICAL ASSISTANT Time In 06/02/25 14:53:00 Time Out 06/02/25 15:25:00 Procedure NEPHRECTOMY PARTIAL, ROBOT ASSISTED(Right) Comments IS SUPERVISING Last Modified By: Shalini Tarango 06/02/25 15:31:27 General Comments: TRENA ANDINO,[facility], IN ATTENDANCE.MISHEL SUMMERS. Perioperative Protocols [...] Surgeon Audie Velasco (more content not included)...Normal [facility] Medical CentereGFRon 17-89-8705eAWU343 mL/min/1.73 v0Gmnlgd>=59 [facility] CenterComment on above:Performed By: #### [id number] ####[facility] [address] [place] [address] ABO/Rhon 65-98-1953FLE/RhPositiveInvalid Interpretation CodeLakehealth Tripoint Medical CenterComment on above:Performed By: #### [id number] #### [facility] [address], [place] [address]HWP/Rh History Checkon 37-10-9930KNZ/Rh History CheckVerified Hx Blood TypeNormalLakehealth Tripoint Medical CenterComment on above:Performed By: #### [id number] #### [facility] [address], [place] [address]XBXNsi 61-21-2246JAVG Gel InterpNegativeNormalLakehealth Tripoint Medical CenterComment on above:Performed By: #### [id number] #### [facility] [address] [place] [address]Mxsme Bank ID#on [id number]#[id number] Interpretation CodeLakehealth Tripoint Medical CenterComment on above:Performed By: #### [id number] #### [facility] [address] [place] [address]Amesnnzik Patient Summaryon [id number] Patient Summary Inpatient Patient Summary [address] [address] [facility] Clinical Discharge Instructions PERSON INFORMATION Name: JENNIFER ZAMORA PHYSICIANS Admitting Physician: Rosmery Bronson MD Attending Physician: Rosmery Bronson MD PCP: GRADY DAS DO Discharge Diagnosis: Comment: PATIENT EDUCATION INFORMATION Instructions: Minimally Invasive Nephrectomy, Care After Medication Leaflets: Follow up: With: Address: When: Rosmery Bronson [address] [place] [phone] Business (1) Comments: Office to schedule your [...] Mouth every day. omega-3 polyunsaturated fatty acids ([place]-3 Fish Oil 1000 mg oral capsule) By Mouth. zolpidem (zolpidem 5 mg Tab) Comment:[facility] HospitalMain OR Intraoperative Recordon [id number] OR Intraoperative RecordMain OR Intraoperative Record IntraOp Document Type FT Summary Primary Physician: Rosmery Bronson MD Finalized Date/Time: 06/02/25 15:32:14 Pt. Name: JENNIFER ZAMORA /Sex: 1970 Female Med Rec #: [id number] Physician: Rosmery Bronson MD Financial #: [id number] Pt. Type: A Room/Bed: [facility] Admit/Disch: 06/02/25 07:30:02 - Institution: Case [...] AT 1457. SURGEON AT [employer] FROM 3811-1240.MISHEL SUMMERS. CLAMP TIME FROM [id number], 24 MINS AND 25 SECONDS.MISHEL SUMMERS. Case Attendance FT Entry 1 Entry 2 Entry 3 Case Attendee Dawson Salinas MD, Shalini Balderas Role Performed Anesthesiologist Surgeon - Primary Ice Skating Instructor - Primary Marketing Lead Time In 06/02/25 09:43:00 06/02/25 09:43:00 06/02/25 [...] Connie E Role Performed Scrub - Primary BODY MAKE UP ARTIST/SA Ice Skating Instructor - Relief Time In 06/02/25 09:43:00 06/02/25 [...] Francisco DRISCOLL, Grady Bailey, Veronika Hensley DNP, LPN MEDICAL ASSISTANT, [place] Role Performed BODY MAKE UP ARTIST/SA Scrub - Relief LPN MEDICAL ASSISTANT Time In 06/02/25 12:49:00 06/02/25 12:50:00 06/02/25 14:20:00 Time Out 06/02/25 14:04:00 06/02/25 13:51:00 06/02/25 14:57:00 Procedure NEPHRECTOMY PARTIAL, NEPHRECTOMY PARTIAL, NEPHRECTOMY PARTIAL, ROBOT ASSISTED(Right) ROBOT ASSISTED(Right) ROBOT ASSISTED(Right) Comments LUNCH RELIEF FOR IS SUPERVISING ZHENG,BODY MAKE UP ARTIST/SA Last Modified By: Shalini Tarango Kelsie E Burgderfer, Kelsie E 06/02/25 15:31:27 06/02/25 15:31:27 06/02/25 15:31:27 Entry 10 Case Attendee Reynaldo DUONG, Yoselin Call Role Performed LPN MEDICAL ASSISTANT Time In 06/02/25 14:53:00 Time Out 06/02/25 15:25:00 Procedure NEPHRECTOMY PARTIAL, ROBOT ASSISTED(Right) Comments IS SUPERVISING Last Modified By: Shalini Tarango 06/02/25 15:31:27 General Comments: TRENA ANDINO,[facility] [place] ATTENDANCE.MISHEL SUMMERS. Perioperative Protocols FT [...] Surgeon Audie Velasco (more content not included)...Normal [facility] CenterMain OR PACU I Recordon [id number] OR PACU I RecordMain OR PACU I Record PACU Phase I Document Type FT Summary Primary Physician: Rosmery Bronson MD Finalized Date/Time: 06/02/25 16:35:36 Pt. Name: JENNIFER ZAMORA D.O.B./Sex: 1970 Female Med Rec #: [id number] Physician: Rosmery Bronson MD Financial #: [id number] Pt. Type: O Room/Bed: [facility]/01 Admit/Disch: 06/02/25 07:30:02 - Institution: Case [...] Signed By: Mable Obregon RN 06/02/25 16:35NoWilson Memorial HospitalMain OR Preoperative Recordon [id number] OR Preoperative RecordMain OR Preoperative Record PreOp Document Type FT Summary Primary Physician: Rosmery Bronson MD Finalized Date/Time: 06/02/25 10:33:51 Pt. Name: JENNIFER ZAMORA /Sex: 1970 Female Med Rec #: [id number] Physician: Rosmery Bronson MD Financial #: [id number] Pt. Type: A Room/Bed: [place] [address] Admit/Disch: 06/02/25 07:30:02 - Institution: Case Times [...] Signatures Signed By: Shalini Tarango 06/02/25 10:33NoWilson Memorial HospitalOperative Reporton [id number] ReportOperative Report Patient: JENNIFER ZAMORA Age: 54 years Sex: Female : 1970 Associated Diagnoses: None Author: Rosmery Bronson MD Procedure Procedure Date: 06/02/2025. Confirmed: patient, procedure, side, site, safety procedures followed. Performed by: Rosmery Bronson MD, anesthesiologist (Dawson Billy [facility]). Type of procedure: Robotic Laparascopic assisted right [...] line along lateral rectus. 5 mm subxiphoid commercial loan assistant port for liver retraction and a 12 mm air seal commercial loan assistant port superior to the umbilicus in [...] robot was undocke (more content not included)...Normal [facility] CenterComment on above:Result Comment: Electronically Signed By: Audie MADERA, Rosmery Mckay\.alan\Date and Time Signed: 06/02/25 15:55EDT Outpatient Surgery Discharge Instructionon [id number] Surgery Discharge InstructionOutpatient Surgery Discharge Instruction [place] [id number] Patient Discharge Instructions PERSON INFORMATION Name: JENNIFER [...] up: With: Address: When: Rosmery Bronson [address] [facility], [place] [address], [address] [address] [phone] Business (1) Comments: Office to schedule your follow up in 2 weeks for pathology review and postop check Pharmacy Information: You may receive a survey from [employer] asking you to rate your care experience. Your feedback is important and will help us understand what we do well and how we can improve the quality of care we provide to you, your loved ones and our community. It???s an honor to serve you. Thank you for choosing [facility] HERE ARE THE MEDICATION CHANGES THAT [...] Mouth every day. omega-3 polyunsaturated fatty acids ([place]-3 Fish Oil 1000 mg oral capsule) By [...] these instructions at home: Medicines ??? Take tmaq-szz-zbyexvm and prescription medicines only as told by your health care provider. ??? Avoid using NSAIDs regularly over a long period of time. These include aspirin and ibuprofen. Doing so may damage your remaining kidney. -Tylenol 650-1000 mg every 6 hours as needed for pain. Hammon for severe uncontrolled pain. These have 325 [...] keep your urine pale yellow. ? Take tskq-nad-xgtmahf or prescription medicines - Colace/Senna ? Eat [...] and water are not available, use hand safety attendant. ? Change your dressing as told by your health care provider- daily and as needed to keep dry, and until incisio (more content not included)...NormalLakehealth Tripoint Medical CenterUA with Cult Rflxon 66-39-2426Yenwf (U)Light-YellowNormalYellow [facility] CenterComment on above:Result Comment: Microscopic readings are only performed on those samples that meet specific criteria set forth by [facility].Performed By: #### [id number] #### [facility] [address] [place], [place] [address]Kgrcivo (U) [Mass/Vol]NegativeNormalNegativeLakehealth Tripoint Medical CenterComment on above:Performed By: #### [id number] #### [facility] [address] [place], [place] [address]Wkppcpg Ql (U)NegativeNormalNegativeLakehealth Tripoint Medical Center Comment on above:Performed By: #### [id number] #### [facility] [address] [place], [place] [address]XH BloodNegativeNormalNegativeLakehealth Tripoint Medical Center Comment on above:Performed By: #### [id number] #### [facility] [address] [place], [place] [address]YJ ClarityClearNormalClearLakehealth Tripoint Medical CenterComment on above:Performed By: #### [id number] #### [facility] [address] [place], [place] [address]PJ Leuk EstNegativeNoOhioHealth Shelby Hospital Comment on above:Performed By: #### [id number] #### [facility] [address] [place] [address]YG NitriteNegativeNormalWyandot Memorial Hospital Comment on above:Performed By: #### [id number] #### [facility] [address] [place], [place] [address]JZ pH7.0Invalid Interpretation Code5.0-9.0[facility] Medical CenterComment on above:Performed By: #### [id number] #### [facility] [address] [place] [address]HD ProteinNegativeNoOhioHealth Shelby Hospital Comment on above:Performed By: #### [id number] #### [facility] [address] [place], [place] [address]UP Spec Grav1.013Invalid Interpretation Code1.005-1.030[facility] Medical CenterComment on above:Performed By: #### [id number] #### [facility] [address] [place], [place] [address]AJ UrobilinogenNegativeNormalNegRegency Hospital ToledoComment on above:Performed By: #### [id number] #### [facility] [address] [place], [place] [address]Skxtkioxbgvi (U) [Mass/Vol]NegativeNormalNegRegency Hospital ToledoComment on above:Performed By: #### [id number] #### [facility] [address] [place], [place] [address]MY Spec DescFoleyNormTriHealth McCullough-Hyde Memorial HospitalComment on above:Performed By: #### [id number] #### [facility] [address] [place], [place] [address]APClv 70-39-6300Evkhk gap [Moles/Vol]10 mmol/LNormal6-16[facility] Medical CenterComment on above:Performed By: #### [id number] #### [facility] [address] [place], [place] [address]OCS/Creat Ratio30 No ObwnqWgxg11-22JvdwghLakehealth Tripoint Medical Center Comment on above:Performed By: #### [id number] #### [facility] [address] [place], [place] [address]Tnfzxrr [Mass/Vol]9.8 mg/dLNormal8.9-11.1FProMedica Defiance Regional HospitalComment on above:Performed By: #### [id number] #### [facility] [address] [place], [place] [address]Jcnodmsr [Moles/Vol]100 mmol/UIvp685-605DnvnxpLakehealth Tripoint Medical CenterComment on above:Performed By: #### [id number] #### [facility] [address] [place], [place] [address]UC2 [Moles/Vol]32 mmol/OVoba37-32ZfsrgcLakehealth Tripoint Medical Center Comment on above:Performed By: #### [id number] #### [facility] [address] [place], [place] [address]Jvacdtgyvg [Mass/Vol]0.7 mg/dLNormal0.5-1.3FProMedica Defiance Regional HospitalComment on above:Performed By: #### [id number] #### [facility] [address] [place], [place] [address]Zxgvbvj [Mass/Vol]84 mg/iSJsikzd43-205CygsntLakehealth Tripoint Medical CenterComment on above:Performed By: #### [id number] #### [facility] [address] [place], [place] [address]Jrxgjoscm [Moles/Vol]3.3 mmol/LLow3.5-5.3FProMedica Defiance Regional HospitalComment on above:Performed By: #### [id number] #### [facility] [address] [place], [place] [address]Lwljrd [Moles/Vol]139 mmol/IRgmjpu424-165FcnbipLakehealth Tripoint Medical CenterComment on above:Performed By: #### [id number] #### [facility] [address] [place] [address]Ggvw nitrogen [Mass/Vol]21 mg/dLNormal5-21[facility] Medical CenterComment on above:Performed By: #### [id number] #### [facility] [address] [place] [address]SDC w/ Auto Diffon 48-63-1860Bjxoolcb Absolute0.0 E9/LNormal 0.0-0.2FProMedica Defiance Regional HospitalComment on above:Performed By: #### [id number] #### [facility] [address] [place] [address]Clyijeour/100 WBC (Bld)0.4 %Normal0.0-2.0[facility] Medical CenterComment on above:Performed By: #### [id number] #### [facility] [address] [place] [address]Hiz Absolute0.0 E9/LNormal0.0-0.5FProMedica Defiance Regional Hospital Comment on above:Performed By: #### [id number] #### [facility] [address] [place] [address]Ssitabovvlb/100 WBC (Bld)0.7 %Normal0.0-8.0[facility] Medical CenterComment on above:Performed By: #### [id number] #### [facility] [address] [place] [address]Rizwuuxuksy distribution width (RBC) [Ratio]12.6 %Normal 10.9-14.2FProMedica Defiance Regional HospitalComment on above:Performed By: #### [id number] #### [facility] [address] [place], [place] [address]Gyyptxioyt (Bld) [Volume fraction]41.3 %Mlkpwq19.0-46.0[facility] Medical CenterComment on above:Performed By: #### [id number] #### [facility] [address] [place], [place] [address]Hwbfhvafbg (Bld) [Mass/Vol]14.6 g/aRNlhrga74.0-16.0[facility] CenterComment on above:Performed By: #### [id number] #### [facility] [address] [place] [address]Bcgpo Absolute1.6 E9/LNormal1.0-4.0[facility] Comment on above:Performed By: #### [id number] #### [facility] [address] [place] [address]Zreksedxhvh/100 WBC (Bld)25.1 %Cxuaxd56.0-50.0[facility] Medical CenterComment on above:Performed By: #### [id number] #### [facility] [address] [place] [address]ENU (RBC) [Entitic mass]32.3 dkCrahqm87.0-34.0[facility] Medical CenterComment on above:Performed By: #### [id number] #### [facility] [address] [place] [address]FLVU (RBC) [Mass/Vol]35.3 g/fBNoitlo23.4-36.0[facility] CenterComment on above:Performed By: #### [id number] #### [facility] [address] [place] [address]JQZ (RBC) [Entitic vol]91.4 fBAiuvct60.0-100.0[facility] Medical CenterComment on above:Performed By: #### [id number] #### [facility] [address] [place] [address]Ommb Absolute0.4 E9/LNormal0.2-1.0[facility] Comment on above:Performed By: #### [id number] #### [facility] [address] [place] [address]Hibbseckq/100 WBC (Bld)5.4 %Normal4.0-14.0[facility] Medical CenterComment on above:Performed By: #### [id number] #### [facility] [address] [place], [place] [address]Qpjstr Absolute4.4 E9/LNormal2.0-7.5FProMedica Defiance Regional Hospital Comment on above:Performed By: #### [id number] #### [facility] [address] [place], [place] [address]Iqwgtg Auto68.4 %Jsjwqh17.0-75.0[facility] Comment on above:Performed By: #### [id number] #### [facility] [address] [place] [address]Umjtsfpu320.0 E9/QMcyzsu506.0-500.0[facility] Comment on above:Performed By: #### [id number] #### [facility] [address] [place] [address]Qctsvfjv mean volume (Bld) [Entitic vol]7.7 fLNormal6.4-10.8 [facility] CenterComment on above:Performed By: #### [id number] #### [facility] [address] [place] [address]GGN5.5 E12/LNormal4.3-5.9[facility] Medical CenterComment on above:Performed By: #### [id number] #### [facility] [address] [place] [address]PQE5.5 E9/LNormal4.0-11.0[facility] Medical CenterComment on above:Performed By: #### [id number] #### [facility] [address] [place] [address]TA & PTTon 74-73-6237TBY Coag (PPP) [Relative time]0.97 {INR} Invalid Interpretation CodeLakehealth Tripoint Medical CenterComment on above:Result Comment: INR results are specifically intended to assess patients stabilized on long-term Anticoagulation therapy suggested INR???s ???Less Intensive Anticoagulation??? 2.0 ??? 3.0 Conventional Range 3.0 ??? 4.5Performed By: #### [id number] #### [facility] [address] [place], [place] [address]UH51.9 second(s)Normal9.4-12.5FProMedica Defiance Regional Hospital Comment on above:Result Comment: 15 days - [...] the same coagulation reagent and instrumentation as [facility]. Currently there are no coagulation studies available worldwide for children to 14 days, andno normal ranges.Performed By: #### [id number] #### [facility] [address] [place], [place] [address]ZBC23.9 second(s)Lrekuo70.1-36.5FProMedica Defiance Regional Hospital Comment on above:Result Comment: Parameter 15 days [...] the same coagulation reagent and instrumentation as [facility]. Currently there are no coagulation studies available worldwide for children to 14 days, andno normal ranges. Heparin therapeutic range (represented by Anti-Factor Xa activity of 0.2 - 0.4 U/mL) corresponds to PTT of 56.6 - 109.0 sec.Performed By: #### [id number] #### [facility] [address] [place] [address]VP with Cult Rflxon 80-59-8773Qnyib (U)Light-YellowNormalYellow [facility] CenterComment on above:Result Comment: Microscopic readings are only performed on those samples that meet specific criteria set forth by [facility].Performed By: #### [id number] #### [facility] [address] [place] [id number] (U) [Mass/Vol]NegativeNormalNegativeLakehealth Tripoint Medical CenterComment on above:Performed By: #### [id number] #### [facility] [address] [place], [place] [address]Ketones Ql (U)NegativeNormalNegativeLakehealth Tripoint Medical Center Comment on above:Performed By: #### [id number] #### [facility] [address] [place] [address]WQ BloodNegativeNormalNegRegency Hospital Toledo Comment on above:Performed By: #### [id number] #### [facility] [address] [place] [address]TV ClarityClearNormalClearLakehealth Tripoint Medical CenterComment on above:Performed By: #### [id number] #### [facility] [address] [place], [place] [address]UC Leuk EstNegativeNormalNegRegency Hospital Toledo Comment on above:Performed By: #### [id number] #### [facility] [address] [place] [address]TF NitriteNegativeNormalNegRegency Hospital Toledo Comment on above:Performed By: #### [id number] #### [facility] [address] [place] [address]UA pH7.0Invalid Interpretation Code5.0-9.0[facility] Medical CenterComment on above:Performed By: #### [id number] #### [facility] [address] [place], [place] [address]CA ProteinNegativeNormalNegativeLakehealth Tripoint Medical Center Comment on above:Performed By: #### [id number] #### [facility] [address] [place], [place] [address]YY Spec Grav1.011Invalid Interpretation Code1.005-1.030[facility] Medical CenterComment on above:Performed By: #### [id number] #### [facility] [address] [place], [place] [address]NN UrobilinogenNegativeNormalNegativeLakehealth Tripoint Medical CenterComment on above:Performed By: #### [id number] #### [facility] [address] [place], [place] [address]Uszsqecbyyrw (U) [Mass/Vol]NegativeNormalNegativeLakehealth Tripoint Medical CenterComment on above:Performed By: #### [id number] #### [facility] [address] [place], [place] [address]JV Spec DescClean CatchNormalLakehealth Tripoint Medical CenterComment on above:Performed By: #### [id number] #### [facility] [address] [place], [place] [address]rSXRhn 43-60-3272yICR146 mL/min/1.73 d2Syzqrv>=59L[facility] Medical CenterComment on above:Performed By: #### [id number] #### [facility] [address] [place], [place] [address]Qxtqdsyste - Chemistry and Chemistry - challengeOrdered By: Shasha Isaac on 76-41-9048Wmzkelcfa Ql (U)White HospitalGlucose (U) [Mass/Vol]White HospitalKetones Ql (U)White HospitalpH (U)7.0 [pH][facility], Incpecific gravity (U) [Rel density]1.020[facility] HospitalLaboratory - Specimen informationOrdered By: Shasah Isaac on 05-05-2025 Appearance (U)clearOhio Valley HospitalColor (U)yellowOhio Valley HospitalLaboratory - UrinalysisOrdered By: Shasha Isaac on 80-58-3655Nvpfvoapv esterase Test strip Ql (U)NegativeOhio Valley HospitalNitrite Ql (U)NegativeOhio Valley HospitalProtein Ql (U) NegativeOhio Valley HospitalNo Panel InformationOrdered By: Shasha Isaac on 58-41-0942Vzdlm Occult BloodNegativeOhio Valley Hospital Urine Urobilinogen0.2EU/dLOhio Valley HospitalAmbulatory Visit Summaryon 63-41-2457Ciloqlugym Visit SummaryAmbulatory Visit Summary JENNIFER ZAMORA :1970 [...] Complex oral tablet) omega-3 polyunsaturated fatty acids ([place]-3 Fish Oil 1000 mg oral capsule) Procedures [...] or concerns Unchanged omega-3 polyunsaturated fatty acids ([place]-3 Fish Oil 1000 mg oral capsule) By [...] the mass. Follow t (more content not included)...[facility] HospitalMRI ABDOMEN W WO CONTRAST MRCPon 30-68-6087MAE ABDOMEN W WO CONTRAST MRCPADDENDUM: This exam [...] Guaman IV, MD 12/11/24 Edited Result - FINALNormalMerNorthern State HospitalBasic Metab w/rfx MGon 71-89-7960Jgfil gap [Moles/Vol]11 mmol/LNormal9-16MerNorthern State HospitalComment on above:Performed By: #### MELLISA, CDP #### [facility] [address] [place] [address] Civil Draftsman: STEPHANI Walleralcium [Mass/Vol]9.5 mg/dLNormal8.6-10.4C[facility] Medina HospitalComment on above:Performed By: #### MELINAX, CDP #### [facility] [address] [place], [place] [id number] Civil Draftsman: STEPHANI Wallerhloride [Moles/Vol]103 mmol/EQirchx92-362NmztsCleveland Clinic Medina HospitalComment on above:Performed By: #### BMPX, CDP #### [facility] [place] [address] Civil Draftsman: STEPHANI WallerO2 [Moles/Vol]26 mmol/HUlblnt28-65HnsuhCleveland Clinic Medina HospitalComment on above:Performed By: #### BMPX, CDP #### [facility] [address] [place] [address]. [place] [address] Civil Draftsman: STEPHANI Wallerreatinine [Mass/Vol]0.9 mg/dLNormal0.50-0.90 [facility] HospitalComment on above:Performed By: #### BMPX, CDP #### [facility] [address] [place] [address] Civil Draftsman: Velasquez Sears MDGFR/1.73 sq M.predicted among non-blacks MDRD (S/P/Bld) [Vol rate/Area]80 mL/min/{1.73_m2}Normal>60[facility] Comment on above:Result Comment: These results are [...] tubular secretion.Performed By: #### BMPX, CDP #### [facility] [place] [address] Civil Draftsman: Velasquez Sears MDGlucose [Mass/Vol]150 mg/cTRhtj97-63IlmrkProvidence Sacred Heart Medical CenterComment on above:Performed By: #### BMPX, CDP #### [facility] [address] [place] [address]. [place], [place] [id number] Civil Draftsman: JACKSON Wallerotassium [Moles/Vol]3.8 mmol/LNormal3.7-5.3 [facility] HospitalCombeaumont hospital on above:Performed By: #### BMPX, CDP #### [facility] [address] [place], [place] [id number] Civil Draftsman: LEANDRO Wallerodium [Moles/Vol]140 mmol/NErdzya256-152JoqldCleveland Clinic Medina HospitalCombeaumont hospital on above:Performed By: #### BMPX, CDP #### [facility] [address] [place] [address] Civil Draftsman: Velasquez Sears MDUrea nitrogen [Mass/Vol]13 mg/dLNormal6-20[facility] HospitalCombeaumont hospital on above:Performed By: #### BMPX, CDP #### [facility] [address] [place] [address] Civil Draftsman: Velasquez Sears MDBasi Metabolic Panel w/ Reflex to MGon 24-74-7759Ricnv gap [Moles/Vol]11 mmol/L9 - 16 mmol/LBon [facility] Calcium [Mass/Vol]9.5 mg/dL8.6 - 10.4 mg/dLBon [facility] Cleveland WestChloride [Moles/Vol]103 mmol/L98 - 107 mmol/LBon [facility] Hospital Cleveland WestCO2 [Moles/Vol]26 mmol/L20 - 31 mmol/LBon [facility] WestCreatinine [Mass/Vol]0.9 mg/dL0.50 - 0.90 mg/dLBon [facility] WestEst, Glom Filt Rate80- PINFBon Reg[facility] Hospital [facility] WestComment on above: These results are not intended [...] that affects renal tubular secretion. Glucose [Mass/Vol]150 mg/gUFgmn46 - 99 mg/dLBon [facility] Interpretation and review of laboratory resultsAbnormDominion Hospital Potassium [Moles/Vol]3.8 mmol/L3.7 - 5.3 mmol/LBon [facility] WestSodium [Moles/Vol]140 mmol/L136 - 145 mmol/LBon [facility] WestUrea nitrogen [Mass/Vol]13 mg/dL6 - 20 mg/dLBon [facility] CBC with Auto Differentialon [id number] (Bld) [#/Vol][facility] CenterBasophils/100 WBC (Bld)0 %0 - 2 %[facility] CenterEosinophils (Bld) [#/Vol][facility] CenterEosinophils/100 WBC (Bld)0 %Low1 - 4 %[facility] CenterErythrocyte distribution width (RBC) [Ratio]11.4 %Low11.8 - 14.4 %[facility] CenterHematocrit (Bld) [Volume fraction]41.0 %36.3 - 47.1 %[facility] CenterHemoglobin (Bld) [Mass/Vol]14.6 g/dL11.9 - 15.1 g/dLBon [facility] WestImmature granulocytes (Bld) [#/Vol]0.09 10*3/uLBon [facility] Hospitalmatoledo hospital granulocytes/100 WBC (Bld)1 %Spmr5Foy [facility] WestInterpretation and review of laboratory resultsAbnormalSentara Rmh Medical CenterLymphocytes/100 WBC (Bld)5 %Low24 - 43 %[facility] Lymphocytes/100 WBC (Bld)0.71 %LowCJW Medical CenterH (RBC) [Entitic mass]32.1 pg25.2 - 33.5 pgCJW Medical CenterHC (RBC) [Mass/Vol]35.6 g/dL High28.4 - 34.8 g/dLBon [facility] WestMCV (RBC) [Entitic vol]90.1 fL82.6 - 102.9 fLBon [facility] WestMonocytes/100 WBC (Bld)4 %3 - 12 %Bon SecOhioHealth Southeastern Medical CenterMonocytes/100 WBC (Bld)0.63 %Bon [facility] WestNeutrophils/100 WBC (Bld)91 %High36 - 65 %Bon [facility] WestNucleated RBC/100 WBC (Bld) [Ratio]0.0 %0.0 per 100 WBCBon [facility] WestPlatelet mean volume (Bld) [Entitic vol]9.1 fL8.1 - 13.5 fLSentara Rmh Medical CenterPlatelets (Bld) [#/Vol] 326 10*3/uLBon [facility] WestRBC (Bld) [#/Vol]4.55 10*6/uL3.95 - 5.11 m/uL Bon [facility] WestSegmented neutrophils/100 WBC (Bld)14.32 %HighBon [facility] WestWBC other (Bld) [#/Vol]15.8HighBon SecOhioHealth Southeastern Medical CenterBon [facility] WestCBC with Diffon [id number]. Basophil<0.24Yzvorh5.00-0.20 [facility]ina HospitalComment on above:Performed By: #### BMPX, CDP #### [facility] [address] [place] [address] Civil Draftsman: Shamar Waller. Eosinophil<0.01Cddkmf6.00-0.44[facility] Medina HospitalComment on above:Performed By: #### BMPX, CDP #### [facility] [address] [place] [address] Civil Draftsman: Shamar Waller.Imm.Granulocyte0.09 k/uLNormal0.00-0.30 [facility] HospitalComment on above:Performed By: #### BMPX, CDP #### [facility] [address] [place] [address] Civil Draftsman: Shamar Waller.Neutrophil (Seg)14.32 k/uLHigh1.50-8.10 [facility] HospitalComment on above:Performed By: #### BMPX, CDP #### [facility] [address] [place] [address] Civil Draftsman: Velasquez Sears MDBasophils/100 WBC (Bld)0 %Normal0-2[facility], Central CampusComment on above:Performed By: #### BMPX, CDP #### [facility] [address] [place] [address] Civil Draftsman: ALEXIA Wallerosinophils/100 WBC (Bld)0 %Low1-4[facility], Central CampusComment on above:Performed By: #### BMPX, CDP #### [facility] [address] [place] [address] Civil Draftsman: Velasquez Sears MDErythrocyte distribution width (RBC) [Ratio] 11.4 %Low11.8-14.4[facility], Central CampusComment on above:Performed By: #### BMPX, CDP #### [facility] [address] [place] [address] Civil Draftsman: Velasquez Sears MDHematocrit (Bld) [Volume fraction]41.0 %Normal 36.3-47.1[facility], Central CampusComment on above:Performed By: #### BMPX, CDP #### [facility] [address] [place] [address] Civil Draftsman: Velasquez Sears MDHemoglobin (Bld) [Mass/Vol]14.6 g/dLNormal 11.9-15.1[facility], Central CampusComment on above:Performed By: #### BMPX, CDP #### [facility] [address] [facility] [place] [address] Civil Draftsman: Robyn Waller granulocytes/100 WBC (Bld)1 %High0 [facility] HospitalCombeaumont hospital on above:Performed By: #### BMPX, CDP #### [facility] [address] [place] [address] Civil Draftsman: Spencer Wallermphocytes (Bld) [#/Vol]0.71 10*3/uLLow 1.10-3.70[facility] HospitalCombeaumont hospital on above:Performed By: #### BMPX, CDP #### [facility] [address] [place] [address] Civil Draftsman: Spencer Wallermphocytes/100 WBC (Bld)5 %Hda50-45KvtvkCleveland Clinic Medina HospitalCombeaumont hospital on above:Performed By: #### BMPX, CDP #### [facility] [address] [place] [address] Civil Draftsman: KELLIE Waller (RBC) [Entitic mass]32.1 jkOptjjs01.2-33.5 [facility] HospitalCombeaumont hospital on above:Performed By: #### BMPX, CDP #### [facility] [address] [place] [address] Civil Draftsman: KELLIE WallerC (RBC) [Mass/Vol]35.6 g/iJPlee31.4-34.8 [facility] HospitalCombeaumont hospital on above:Performed By: #### BMPX, CDP #### [facility] [address] [place] [address] Civil Draftsman: NELL WallerCV (RBC) [Entitic vol]90.1 yPPxdbtz29.6-102.9 [facility] HospitalCombeaumont hospital on above:Performed By: #### BMPX, CDP #### [facility] [address] [facility] [place] [address] Civil Draftsman: NELL Walleronocytes (Bld) [#/Vol]0.63 10*3/uLNormal 0.10-1.20MerNorthern State HospitalCombeaumont hospital on above:Performed By: #### BMPX, CDP #### [facility] [address] [place] [address] Civil Draftsman: NELL Walleronocytes/100 WBC (Bld)4 %Normal3-12[facility] on above:Performed By: #### BMPX, CDP #### [facility] [address] [place] [address] Civil Draftsman: Yasemin Wallerophil (Seg)91 %Wovc12-98LmamhNorthern State HospitalCombeaumont hospital on above:Performed By: #### BMPX, CDP #### [facility] [address] [place] [address] Civil Draftsman: Velasquez Sears MDNRBC Automated0.0 per 100 WBCNormal0.0[facility] on above:Performed By: #### BMPX, CDP #### [facility] [address] [place] [address] Civil Draftsman: JACKSON Wallerlatelet mean volume (Bld) [Entitic vol]9.1 fL Normal8.1-13.5[facility] on above:Performed By: #### BMPX, CDP #### [facility] [address] [place] [address] Civil Draftsman: Jose Wallertelets (Bld) [#/Vol]326 10*3/pRYgaykg664-675 [facility] HospitalComment on above:Performed By: #### BMPX, CDP #### [facility] [address] [place] [address] Civil Draftsman: МАРИНА WallerBC (Bld) [#/Vol]4.55 10*6/uLNormal3.95-5.11 [facility] HospitalComment on above:Performed By: #### BMPX, CDP #### [facility] [address] [facility] [place] [address] Civil Draftsman: YADIEL WallerBC (Bld) [#/Vol]15.8 10*3/uLHigh3.5-11.3MProvidence Sacred Heart Medical CenterComment on above:Performed By: #### BMPX, CDP #### [facility] [address] [place] [address] Civil Draftsman: JESUS MANUEL Waller Abdomen WO and W contrast Jabier . Cholelithiasis with no evidence of acute cholecystitis. 2. Mild biliary dilatation with no evidence of choledocholithiasis. 3. Normal MRI appearance of the pancreas. [facility] RIS CONSOLIDATEDEXAMINATION: MRI OF THE ABDOMEN WITH [...] mucosal thickening or pericholecystic fluid. Other: None [facility] Amna Morgan IV, MD - 12/02/2024 EXAMINATION: [...] 3. Normal MRI appearance of the pancreas. [employer] TechnologiesRadiology Study observation (narrative)[employer] Abdomen WO and W contrast IVOrdered By: Amna Guaman on 12-02-2024 [employer] Work Phone: Surgical Pathology Reporton [id number] Pathology Report(NOTE) Path Number: [id number] -- Diagnosis -- Gallbladder: -Cholelithiasis and chronic [...] Microscopic Description Microscopic examination performed. Processing Lab: [address] [id number] Interpretation Performed at [address] [id number] SURGICAL PATHOLOGY CONSULTATION Patient Name: JENNIFER ZAMORA Med Rec: [id number] [facility] [employer] [facility] ANATOMIC PATHOLOGY [address] [place] [address]. [place], [place] [address] NoSalem Regional Medical CenterBasi Metabolic Panelon [id number] gap [Moles/Vol]8 mmol/LLow9 - 16 mmol/LBon EventRegist Calcium [Mass/Vol]9.2 mg/dL8.6 - 10.4 mg/dLBon SecVersonics HealthChloride [Moles/Vol]106 mmol/L98 - 107 mmol/LBon SecBypass MobileCO2 [Moles/Vol]26 mmol/L20 - 31 mmol/LBon SecBypass MobileCreatinine [Mass/Vol]0.7 mg/dL0.50 - 0.90 mg/dLBon SecVersonics HealthEst, Glom Filt Rate- PINFBon SecVersonics Kindred HealthcareComment on above: These results are not intended [...] Mercy HealthEst, Glom Filt Rate- PINFBon Secours Shozuy HealthComment on above: These results are not [...] HealthUrea nitrogen [Mass/Vol]11 mg/dL6 - 20 mg/dLBon [facility] WestBon [facility] WestBasic Metabolic Profon [id number] gap [Moles/Vol]8 mmol/LLow9-16[facility] Comment on above:Performed By: #### CDP, BMP, LIVP #### [facility] [address] [place] [address] Civil Draftsman: STEPHANI Walleralcium [Mass/Vol]9.2 mg/dLNormal8.6-10.4[facility] HospitalComment on above:Performed By: #### CDP, BMP, LIVP #### [facility] [address] [place] [address] Civil Draftsman: STEPHANI Wallerhloride [Moles/Vol]106 mmol/AJxygss67-830VynlbCleveland Clinic Medina HospitalComment on above:Performed By: #### CDP, BMP, LIVP #### [facility] [place] [address] Civil Draftsman: STEPHANI WallerO2 [Moles/Vol]26 mmol/PPigxcm87-10LbrnwCleveland Clinic Medina HospitalComment on above:Performed By: #### CDP, BMP, LIVP #### [facility] [address] [place] [address] Civil Draftsman: STEPHANI Wallerreatinine [Mass/Vol]0.7 mg/dLNormal0.50-0.90 [facility] HospitalComment on above:Performed By: #### CDP, BMP, LIVP #### [facility] [place] [address] Civil Draftsman: Velasquez Sears MDGFR/1.73 sq M.predicted among non-blacks MDRD (S/P/Bld) [Vol rate/Area]mL/min/{1.73_m2}Normal>60MerNorthern State HospitalComment on above:Result Comment: These results are [...] secretion.Performed By: #### CDP, BMP, LIVP #### [facility] [place] [address] Civil Draftsman: Velasquez Sears MDGlucose [Mass/Vol]85 mg/xJRisvjs65-47Lrasc [facility], Central CampusComment on above:Performed By: #### CDP, BMP, LIVP #### [facility] [address] [place] [address]. [place] [address] Civil Draftsman: JACKSON Wallerotassium [Moles/Vol]4.1 mmol/LNormal3.7-5.3 [facility] HospitalCombeaumont hospital on above:Performed By: #### CDP, BMP, LIVP #### [facility] [address] [place] [address]. [place] [address] Civil Draftsman: LEANDRO Wallerodium [Moles/Vol]140 mmol/PEkmrzm950-614PefvlNorthern State HospitalComment on above:Performed By: #### CDP, BMP, LIVP #### [facility] [address] [place] [address]. [place] [address] Civil Draftsman: Velasquez Sears MDUrea nitrogen [Mass/Vol]9 mg/dLNormal6-20MerNorthern State HospitalComment on above:Performed By: #### CDP, BMP, LIVP #### [facility] [address] [place] [address] Civil Draftsman: Velasquez Sears MDAnion gap [Moles/Vol]8 mmol/LLow9-16[facility] HospitalCombeaumont hospital on above:Performed By: #### BMP #### [facility] [address] [place] [address] Civil Draftsman: Velasquez Sears MD #### TRIG #### [address] [address] Civil Draftsman: STEPHANI Casasalcium [Mass/Vol]8.9 mg/dLNormal8.6-10.4[facility] HospitalCombeaumont hospital on above:Performed By: #### BMP #### [facility] [address] [place] [address] Civil Draftsman: Velasquez Sears MD #### TRIG #### [address] [address] Civil Draftsman: STEPHANI Casashloride [Moles/Vol]104 mmol/GIgzyew19-172ZwipxCleveland Clinic Medina HospitalCombeaumont hospital on above:Performed By: #### BMP #### [facility] [address] [place] [address] Civil Draftsman: Velasquez Sears MD #### TRIG #### [address] [address] Civil Draftsman: Hilario Hdz MDCO2 [Moles/Vol]27 mmol/OEsicok76-89NgbmbCleveland Clinic Medina HospitalCombeaumont hospital on above:Performed By: #### BMP #### [facility] [address] [place] [address] Civil Draftsman: Velasquez Sears MD #### TRIG #### [address] [address] Civil Draftsman: STEPHANI Casasreatinine [Mass/Vol]0.7 mg/dLNormal0.50-0.90 [facility] HospitalCombeaumont hospital on above:Performed By: #### BMP #### [facility] [address] [place] [address] Civil Draftsman: Velasquez Sears MD #### TRIG #### [address] [address] Civil Draftsman: Hilario Hdz MDGFR/1.73 sq M.predicted among non-blacks MDRD (S/P/Bld) [Vol rate/Area]mL/min/{1.73_m2}Normal>60[facility] HospitalCombeaumont hospital on above:Result Comment: These results are [...] renal tubular secretion.Performed By: #### BMP #### [facility] [address] [place] [address] Civil Draftsman: Velasquez Sears MD #### TRIG #### [address] [address] Civil Draftsman: Hilario Hdz MDGlucose [Mass/Vol]95 mg/sAVghazv09-71Tasxa [facility] CampusCombeaumont hospital on above:Performed By: #### BMP #### [facility] [address] [place] [address] Civil Draftsman: Velasquez Sears MD #### TRIG #### [address] [address] Civil Draftsman: JACKSON Casasotassium [Moles/Vol]3.7 mmol/LNormal3.7-5.3 [facility] HospitalComment on above:Performed By: #### BMP #### [facility] [address] [place] [address] Civil Draftsman: Velasquez Sears MD #### TRIG #### [address] [place] [place], [place] [address] Civil Draftsman: LEANDRO Casasodium [Moles/Vol]138 mmol/EYyqche487-685NmvcyCleveland Clinic Medina HospitalComment on above:Performed By: #### BMP #### [facility] [address] [place] [address] Civil Draftsman: Velasquez Sears MD #### TRIG #### [address] [id number] Civil Draftsman: Hilario Hdz MDUrea nitrogen [Mass/Vol]11 mg/dLNormal6-20[facility] HospitalComment on above:Performed By: #### BMP #### [facility] [address] [place] [address] Civil Draftsman: Velasquez Sears MD #### TRIG #### [address] [id number] Civil Draftsman: Hilario Hdz [facility] with Auto Differentialon [id number] (Bld) [#/Vol]0.03 10*3/uLBon Secours Mercy HealthBasophils/100 WBC (Bld)1 %0 - 2 %[facility] HealthEosinophils (Bld) [#/Vol]0.05 10*3/uLBon Secours Mercy HealthEosinophils/100 WBC (Bld)1 %1 - 4 %[facility] Erythrocyte distribution width (RBC) [Ratio]11.6 %Low11.8 - 14.4 %[facility] HealthHematocrit (Bld) [Volume fraction]40.5 %36.3 - 47.1 %Bon SecOhioHealth Southeastern Medical CenterHemoglobin (Bld) [Mass/Vol]13.9 g/dL11.9 - 15.1 g/dLBon SecOhioHealth Southeastern Medical CenterImmature granulocytes (Bld) [#/Vol]0.01 10*3/uLBon Secours [facility] Health Akron CampusImmature granulocytes/100 WBC (Bld)0 %0Bon [facility] Interpretation and review of laboratory resultsAbnormalBon [facility] Health Lymphocytes/100 WBC (Bld)25 %24 - 43 %Bon SecOhioHealth Southeastern Medical CenterLymphocytes/100 WBC (Bld)1.11 %Bon [facility] HospitalH (RBC) [Entitic mass]31.6 pg25.2 - 33.5 pgBon Mary Rutan HospitalHC (RBC) [Mass/Vol]34.3 g/dL28.4 - 34.8 g/dLBon SecDayton Osteopathic HospitalV (RBC) [Entitic vol]92.0 fL82.6 - 102.9 fLBon [facility] WestMonocytes/100 WBC (Bld)6 %3 - 12 %[facility] Monocytes/100 WBC (Bld)0.27 %[facility] Medical CenterNeutrophils/100 WBC (Bld)67 %High36 - 65 %Bon [facility] WestNucleated RBC/100 WBC (Bld) [Ratio]0.0 % 0.0 per 100 WBCBon [facility] Hospital Cleveland WestPlatelet mean volume (Bld) [Entitic vol] 8.9 fL8.1 - 13.5 fLBon SecElizabeth Hospital HealthPlatelets (Bld) [#/Vol]267 10*3/uLBon [facility]ours [facility] HealthRBC (Bld) [#/Vol]4.40 10*6/uL3.95 - 5.11 m/uLBon [facility] WestSegmented neutrophils/100 WBC (Bld)3.03 %Bon SecOhioHealth Southeastern Medical CenterWBC other (Bld) [#/Vol]4.5[facility] SecOhioHealth Southeastern Medical CenterCBC with Diffon [id number]. Basophil0.03 k/uLNormal0.00-0.20[facility] Comment on above:Performed By: #### CDP, BMP, LIVP #### [facility] [address] [place] [address]. [place] [address] Civil Draftsman: Shamar Waller.Imm.Granulocyte0.01 k/uLNormal0.00-0.30 [facility] HospitalComment on above:Performed By: #### CDP, BMP, LIVP #### [facility] [address] [place] [address]. [place] [address] Civil Draftsman: Shamar Waller.Neutrophil (Seg)3.03 k/uLNormal1.50-8.10 [facility] HospitalComment on above:Performed By: #### CDP, BMP, LIVP #### [facility] [address] [place] [address] Civil Draftsman: Velasquez Sears MDBasophils/100 WBC (Bld)1 %Normal0-2[facility], Central CampusComment on above:Performed By: #### CDP, BMP, LIVP #### [facility] [address] [place] [address] Civil Draftsman: ALEXIA Wallerosinophils (Bld) [#/Vol]0.05 10*3/uLNormal 0.00-0.44MerNorthern State HospitalComment on above:Performed By: #### CDP, BMP, LIVP #### [facility] [address] [place] [address] Civil Draftsman: ALEXIA Wallerosinophils/100 WBC (Bld)1 %Normal1-4MerNorthern State HospitalComment on above:Performed By: #### CDP, BMP, LIVP #### [facility] [address] [place] [address] Civil Draftsman: Velasquez Sears MDErythrocyte distribution width (RBC) [Ratio] 11.6 %Low11.8-14.4[facility] HospitalCombeaumont hospital on above:Performed By: #### CDP, BMP, LIVP #### [facility] [address] [place] [address] Civil Draftsman: Velasquez Sears MDHematocrit (Bld) [Volume fraction]40.5 %Normal 36.3-47.1MProvidence Sacred Heart Medical CenterCombeaumont hospital on above:Performed By: #### CDP, BMP, LIVP #### [facility] [address] [place] [address] Civil Draftsman: Velasquez Sears MDHemoglobin (Bld) [Mass/Vol]13.9 g/dLNormal 11.9-15.1MProvidence Sacred Heart Medical CenterComment on above:Performed By: #### CDP, BMP, LIVP #### [facility] [address] [place] [address] Civil Draftsman: Velasquez Sears MDImmature granulocytes/100 WBC (Bld)0 %Normal0 [facility] HospitalCombeaumont hospital on above:Performed By: #### CDP, BMP, LIVP #### [facility] [address] [place] [address] Civil Draftsman: Velasquez Sears MDLymphocytes (Bld) [#/Vol]1.11 10*3/uLNormal 1.10-3.70[facility] HospitalCombeaumont hospital on above:Performed By: #### CDP, BMP, LIVP #### [facility] [address] [place] [address] Civil Draftsman: Spencer Wallermphocytes/100 WBC (Bld)25 %Atdnaj53-86Jkcbm Wamego HospitalComment on above:Performed By: #### CDP, BMP, LIVP #### [facility] [facility] [place] [address] Civil Draftsman: NELL WallerCH (RBC) [Entitic mass]31.6 nyLpgenz22.2-33.5 [facility] HospitalComment on above:Performed By: #### CDP, BMP, LIVP #### [facility] [address] [place] [address]. [place] [address] Civil Draftsman: KELLIE WallerC (RBC) [Mass/Vol]34.3 g/xSHsuuxt63.4-34.8 [facility] HospitalCombeaumont hospital on above:Performed By: #### CDP, BMP, LIVP #### [facility] [address] [place] [address]. [place] [address] Civil Draftsman: NELL WallerCV (RBC) [Entitic vol]92.0 vFKxwsvh65.6-102.9 [facility] HospitalCombeaumont hospital on above:Performed By: #### CDP, BMP, LIVP #### [facility] [address] [place] [address]. [place] [address] Civil Draftsman: NELL Walleronocytes (Bld) [#/Vol]0.27 10*3/uLNormal 0.10-1.20[facility] HospitalCombeaumont hospital on above:Performed By: #### CDP, BMP, LIVP #### [facility] [address] [place] [address]. [place] [address] Civil Draftsman: NELL Walleronocytes/100 WBC (Bld)6 %Normal3-12[facility] HospitalComment on above:Performed By: #### CDP, BMP, LIVP #### [facility] [address] [place] [address] [place] [address] Civil Draftsman: Zulma Waller (Seg)67 %Jwis12-85EwkgdWhite Hospital on above:Performed By: #### CDP, BMP, LIVP #### [facility] [address] [place] [address] Civil Draftsman: FRANKY Waller Automated0.0 per 100 WBCNormal0.0[facility] on above:Performed By: #### CDP, BMP, LIVP #### [facility] [address] [place], [place] [address]ia [facility] [place] [address] Civil Draftsman: Cesar Waller mean volume (Bld) [Entitic vol]8.9 fL Normal8.1-13.5[facility] on above:Performed By: #### CDP, BMP, LIVP #### [facility] [place] [address] Civil Draftsman: Shavon Waller (Bld) [#/Vol]267 10*3/fMBwoogy038-100 [facility] on above:Performed By: #### CDP, BMP, LIVP #### [facility] [place] [address] Civil Draftsman: BENNY Waller (Bld) [#/Vol]4.40 10*6/uLNormal3.95-5.11 [facility] on above:Performed By: #### CDP, BMP, LIVP #### [facility] [address] [place] [address] Civil Draftsman: LENIN Waller (Bld) [#/Vol]4.5 10*3/uLNormal3.5-11.3[facility], Central CampusComment on above:Performed By: #### CDP, BMP, LIVP #### [facility] [address] [place] [address] Civil Draftsman: Velasquez Sears MDHepatic Function Panelon [id number] [Mass/Vol]3.9 g/dL3.5 - 5.2 g/dLBon [facility] WestAlbumin/Globulin [Mass ratio]1.4 {ratio}1.0 - 2.5Bon [facility] HealthALP [Catalytic activity/Vol] 150 U/LHigh35 - 104 U/LBon [facility] HealthALT [Catalytic activity/Vol]81 U/LHigh10 - 35 U/LBon [facility] HealthAST [Catalytic activity/Vol]57 U/LHigh 10 - 35 U/LBon [facility] HealthBilirubin [Mass/Vol]0.6 mg/dL0.00 - 1.20 mg/dLBon [facility] WestBilirubin.direct [Mass/Vol]0.2 mg/dL0.00 - 0.20 mg/dLBon [facility] Cleveland WestBilirubin.indirect [Mass/Vol]0.4 mg/dLBon [facility] Hospital [facility] WestProtein [Mass/Vol]6.6 g/dL6.6 - 8.7 g/dLBon [facility] Liver Profileon 87-78-5681Fhsewol [Mass/Vol]3.9 g/dLNormal3.5-5.2[facility], [facility] CampusComment on above:Performed By: #### CDP, BMP, LIVP #### [facility] [address] [facility] [place] [address] Civil Draftsman: Velasquez Sears MDAlbumin/Glob Ratio1.5Wyiddt8.0-2.5[facility] CampusCombeaumont hospital on above:Performed By: #### CDP, BMP, LIVP #### [facility] [address] [place] [address] Civil Draftsman: Laurie Waller Ebsq220 U/GZmbz25-364DrswsCleveland Clinic Medina HospitalCombeaumont hospital on above:Performed By: #### CDP, BMP, LIVP #### [facility] [address] [place] [address] Civil Draftsman: Velasquez eSars MDALT [Catalytic activity/Vol]81 U/XTntw18-80 [facility] HospitalCombeaumont hospital on above:Performed By: #### CDP, BMP, LIVP #### [facility] [address] [place] [address] Civil Draftsman: Velasquez Sears MDAST [Catalytic activity/Vol]57 U/FFttp56-18 [facility] on above:Performed By: #### CDP, BMP, LIVP #### [facility] [address] [place], [place] [address] [place] [address] Civil Draftsman: Velasquez Sears MDBilirubin [Mass/Vol]0.6 mg/dLNormal0.00-1.20 [facility] HospitalCombeaumont hospital on above:Performed By: #### CDP, BMP, LIVP #### [facility] [address] [place] [address] Civil Draftsman: Velasquez Sears MDBilirubin, Indirect0.4 mg/dLNormalWhite Hospital on above:Performed By: #### CDP, BMP, LIVP #### [facility] [address] [place] [address] Civil Draftsman: Velasquez Sears MDBilirubin.indirect [Mass/Vol]0.2 mg/dLNormal 0.00-0.20[facility] HospitalCombeaumont hospital on above:Performed By: #### CDP, BMP, LIVP #### [facility] [address] [place] [address] Civil Draftsman: JACKSON Wallerrotein [Mass/Vol]6.6 g/dLNormal6.6-8.7[facility] CampusCombeaumont hospital on above:Performed By: #### CDP, BMP, LIVP #### [facility] [address] [place] [address] Civil Draftsman: Velasquez Sears MDNo Panel Informationon 18-42-6283Nssyaksawlccbx and review of laboratory resultsAbnormalBon [facility] Si[facility] FallsTriglycerideon 75-89-6839Bhpemdspalvh [Mass/Vol]124 mg/dLNINF - 150 mg/dLBon [facility] WestCombeaumont hospital on above: Triglyceride Guidelines: <150 Desirable 150-199 Borderline 200-499 High >499 Very high Based on AHA Guidelines for fasting triglyceride, July 2012. [facility] WestTriglycerideson 04-99-9966Ntfutxdpbuay [Mass/Vol]124 mg/dLNormal<150MerNorthern State HospitalComment on above:Result Comment: Triglyceride Guidelines: <150 Desirable 150-199 Borderline 200-499 High >499 Very high Based on AHA Guidelines for fasting triglyceride, July 2012.Performed By: #### BMP #### [facility] [address] [place] [address] Civil Draftsman: Velasquez Sears MD #### TRIG #### [address] [address] Civil Draftsman: Hilario Hdz MDBasophils Auto (Bld) [#/Vol]on 11-30-2024 Basophils (Bld) [#/Vol]Automated basophil count0.0-0.1FMercy Health St. Joseph Warren HospitalBasophils/100 WBC Auto (Bld)on 02-50-5701Xfkoikyjo/100 WBC (Bld)Automated basophil %0.2-2.0[facility] HospitalEosinophils/100 WBC Auto (Bld)on 36-86-1192Uawrbxiocsj/100 WBC (Bld)Automated eosinophil %0.9-7.0 [facility] HospitalErythrocyte distribution width Auto (RBC) [Ratio]on 54-89-9817Nfuspxuxdmk distribution width (RBC) [Ratio]Erythrocyte distribution width [Ratio] by Automated count11.0-15.0[facility] HospitalEstimated glomerular filtration rate (GFR) non- Americanon 45-62-4336BUO/1.73 sq M.predicted among non-blacks MDRD (S/P/Bld) [Vol rate/Area]Estimated glomerular filtration rate (GFR) non- AmericanLow>=60 mL/min/1.73m 2FMercy Health St. Joseph Warren HospitalGlobulin Calc (S) [Mass/Vol]on 11-51-8978Djigtdud (S) [Mass/Vol]Serum globulin measurement by calculation (mass/volume)[facility] HospitalHematocrit Auto (Bld) [Volume fraction]on 66-92-2449Guvurlgfcn (Bld) [Volume fraction]Hematocrit [Volume Fraction] of Blood by Automated count36.0-48.0[facility] Hemoglobin [Mass/volume] in Bloodon 54-75-8672Dmzgnabrkk (Bld) [Mass/Vol] Hemoglobin [Mass/volume] in Blood12.0-16.0[facility] - Chemistry and Chemistry - challengeon 57-63-6165Tbxmnqb [Mass/Vol] 3.9 g/dL3.4-5.0[facility] HospitalALP [Catalytic activity/Vol]138 U/DKksk86-864MprofnbsbOhio Valley HospitalALT [Catalytic activity/Vol]25 U/L 14-59[facility] HospitalAmylase [Catalytic activity/Vol]106 U/L 25-115[facility] HospitalAST [Catalytic activity/Vol]24 U/L15-37 [facility] HospitalBilirubin [Mass/Vol]0.5 mg/dL0.2-1.0[facility] HospitalBilirubin.direct [Mass/Vol]0.1 mg/dL0.0-0.2FMercy Health St. Joseph Warren HospitalCalcium [Mass/Vol]9.4 mg/dL8.5-10.1FMercy Health St. Joseph Warren HospitalChloride [Moles/Vol]102 mmol/D51-122YtujakjznOhio Valley HospitalCO2 [Moles/Vol]29.1 mmol/L21.0-32.0[facility] Creatinine [Mass/Vol]0.98 mg/dL0.55-1.02[facility] GFR/1.73 sq M.predicted MDRD (S/P/Bld) [Vol rate/Area]mL/min/{1.73_m2}>=60 mL/min/1.73m 2FMercy Health St. Joseph Warren HospitalGlucose [Mass/Vol]106 mg/lB97-031 [facility] HospitalLipase [Catalytic activity/Vol]215.0 U/LHigh 16.0-77.0[facility] HospitalPotassium [Moles/Vol]3.5 mmol/L3.5-5.1 [facility] HospitalProtein [Mass/Vol]7.8 g/dL6.4-8.2FTuscarawas Hospitalodium [Moles/Vol]139 mmol/R210-148ImjtpvdxiOhio Valley HospitalUrea nitrogen [Mass/Vol]14.0 mg/dL7.0-18.0[facility] HospitalUrea nitrogen/Creatinine [Mass ratio]14.3 mg/mgOhio Valley HospitalLaboratory - Hematology and Cell countson 37-74-8251Barpkkgw granulocytes/100 WBC (Bld)0.0 %0.0-0.5FMercy Health St. Joseph Warren Hospital Leukocytes [#/volume] corrected for nucleated erythrocytes in Blood by Automated counon 85-89-3295GKE corrected for nucl RBC Auto (Bld) [#/Vol]Leukocytes [#/volume] corrected for nucleated erythrocytes in Blood by Automated coun 4.0-11.0[facility] HospitalLymphocytes Auto (Bld) [#/Vol]on 69-67-4103Lxjfpyenpcg (Bld) [#/Vol]Lymphocytes [#/volume] in Blood by Automated count1.2-3.8[facility] HospitalLymphocytes/100 WBC Auto (Bld)on 37-46-3724Vfqpwgexsow/100 WBC (Bld)Lymphocytes/100 leukocytes in Blood by Automated count20.5-60.0[facility] HospitalMCH Auto (RBC) [Entitic mass]on 78-88-2258QAG (RBC) [Entitic mass]MCH [Entitic mass] by Automated count 26.7-34.0[facility] HospitalMCHC Auto (RBC) [Mass/Vol]on 46-25-6611MHGB (RBC) [Mass/Vol]MCHC [Mass/volume] by Automated count29.9-35.2 [facility] HospitalMCV Auto (RBC) [Entitic vol]on 50-60-6354FYS (RBC) [Entitic vol]MCV [Entitic volume] by Automated count81.0-99.0[facility] HospitalMonocytes Auto (Bld) [#/Vol]on 09-16-6864Frebjmyls (Bld) [#/Vol]Automated blood monocyte count0.3-0.8[facility] Monocytes/100 WBC Auto (Bld)on 41-31-0758Xseiukstu/100 WBC (Bld)Automated monocyte %1.7-12.0[facility] HospitalNeutrophils Auto (Bld) [#/Vol]on 29-35-8164Cpbccvxgtpi (Bld) [#/Vol]Neutrophils [#/volume] in Blood by Automated count1.4-6.5FMercy Health St. Joseph Warren HospitalNeutrophils/100 WBC Auto (Bld)on 51-73-8163Zpyunylivwa/100 WBC (Bld)Automated neutrophil %43.0-75.0 [facility] HospitalNo Panel Informationon 68-11-1493Xvqarycxrte # (Auto)0.1 10 3/uL0.0-0.7FMercy Health St. Joseph Warren HospitalImmature Granulocyte # (Auto)0.00 10 3/uL0.00-0.03[facility] HospitalPlatelet mean volume Auto (Bld) [Entitic vol]on 94-63-6407Quptuqmh mean volume (Bld) [Entitic vol] Platelet mean volume [Entitic volume] in Blood by Automated countLow9.5-13.5 [facility] HospitalPlatelets Auto (Bld) [#/Vol]on 11-30-2024 Platelets (Bld) [#/Vol]Platelets [#/volume] in Blood by Automated ekiut960-384 [facility] HospitalRBC Auto (Bld) [#/Vol]on 18-65-2856OZM (Bld) [#/Vol]Erythrocytes [#/volume] in Blood by Automated count4.20-5.40[facility], Incerum or plasma albumin/globulin mass ratioon 11-30-2024 Albumin/Globulin [Mass ratio]Serum or plasma albumin/globulin mass ratio [facility], Incerum or plasma anion gap determinationon 47-09-7633Lfyqd gap [Moles/Vol]Serum or plasma anion gap determinationOhio Valley HospitalBasophils Auto (Bld) [#/Vol]on 54-93-3410Izcredytg (Bld) [#/Vol]Automated basophil count0.0-0.1FMercy Health St. [facility] Hospital Basophils/100 WBC Auto (Bld)on 63-82-7079Vxbqyhgts/100 WBC (Bld)Automated basophil %0.2-2.0[facility] HospitalCholesterol in LDL Calc [Mass/Vol]on 07-49-2753Wuwtutfbmny in LDL [Mass/Vol]Cholesterol in LDL [Mass/volume] in Serum or Plasma by calculationOhio Valley Hospital Comment on above:<100 mg/dl GWULZUE928-546 mg/dl NEAR OR ABOVE KPSKXTS033-349 mg/dl BORDERLINE ANGD818-759 mg/dl HIGH>190 mg/dl VERY HIGHCholesterol in VLDL Calc [Mass/Vol]on 52-21-4668Gvguswkhqpd in VLDL [Mass/Vol]Cholesterol in VLDL [Mass/volume] in Serum or Plasma by calculationOhio Valley Hospital Eosinophils/100 WBC Auto (Bld)on 08-35-2219Plnrnmvatmk/100 WBC (Bld)Automated eosinophil %0.9-7.0[facility] HospitalErythrocyte distribution width Auto (RBC) [Ratio]on 36-73-6838Thwgwjwdjbj distribution width (RBC) [Ratio]Erythrocyte distribution width [Ratio] by Automated count11.0-15.0 [facility] HospitalEstimated glomerular filtration rate (GFR) non- Americanon 80-25-6273CFW/1.73 sq M.predicted among non-blacks MDRD (S/P/Bld) [Vol rate/Area]Estimated glomerular filtration rate (GFR) non->=60 mL/min/1.73m 2FMercy Health St. Joseph Warren HospitalGlobulin Calc (S) [Mass/Vol]on 81-92-6029Wlermlce (S) [Mass/Vol]Serum globulin measurement by calculation (mass/volume)[facility] HospitalHematocrit Auto (Bld) [Volume fraction]on 41-09-0772Brysjnruha (Bld) [Volume fraction]Hematocrit [Volume Fraction] of Blood by Automated count36.0-48.0[facility] HospitalHemoglobin [Mass/volume] in Bloodon 97-16-8561Wwgtrybipm (Bld) [Mass/Vol] Hemoglobin [Mass/volume] in Blood12.0-16.0[facility] - Chemistry and Chemistry - challengeon 82-03-6280Cyapabg [Mass/Vol] 3.6 g/dL3.4-5.0[facility] HospitalALP [Catalytic activity/Vol]104 U/C83-506OzgogcjqcOhio Valley HospitalALT [Catalytic activity/Vol]24 U/L 14-59[facility] HospitalAST [Catalytic activity/Vol]18 U/L15-37 [facility] HospitalBilirubin [Mass/Vol]0.3 mg/dL0.2-1.0[facility] HospitalCalcium [Mass/Vol]8.8 mg/dL8.5-10.1FMercy Health St. Joseph Warren HospitalChloride [Moles/Vol]106 mmol/U76-905GtljgsqsaOhio Valley HospitalCholesterol [Mass/Vol]220 mg/dLHigh<=200[facility] Cholesterol in HDL [Mass/Vol]57 mg/xP20-41XxkdzipyfOhio Valley Hospital Comment on above:> or =60 mg/dl - LOW CARDIOVASCULAR RISK<40 mg/dl - HIGH CARDIOVASCULAR RISKCO2 [Moles/Vol]29.7 mmol/L21.0-32.0[facility] HospitalCreatinine [Mass/Vol]0.75 mg/dL0.55-1.02[facility] GFR/1.73 sq M.predicted MDRD (S/P/Bld) [Vol rate/Area]mL/min/{1.73_m2}>=60 mL/min/1.73m 2FMercy Health St. Joseph Warren HospitalGlucose [Mass/Vol]87 mg/kB17-087 [facility] HospitalPotassium [Moles/Vol]3.8 mmol/L3.5-5.1FMercy Health St. Joseph Warren HospitalProtein [Mass/Vol]7.3 g/dL6.4-8.2FTuscarawas Hospitalodium [Moles/Vol]144 mmol/N465-326RuyaquyhnOhio Valley HospitalTriglyceride [Mass/Vol]100 mg/dL<=150[facility] HospitalTS Qn0.574 m[IU]/L0.358-3.740[facility] HospitalUrea nitrogen [Mass/Vol]12.0 mg/dL7.0-18.0[facility] HospitalUrea nitrogen/Creatinine [Mass ratio]16.0 mg/mgOhio Valley Hospital Laboratory - Hematology and Cell countson 40-36-3580Sjpwhile granulocytes/100 WBC (Bld)0.3 %0.0-0.5FMercy Health St. Joseph Warren HospitalLeukocytes [#/volume] corrected for nucleated erythrocytes in Blood by Automated counon 22-52-2970OLC corrected for nucl RBC Auto (Bld) [#/Vol]Leukocytes [#/volume] corrected for nucleated erythrocytes in Blood by Automated counLow4.0-11.0[facility] HospitalLymphocytes Auto (Bld) [#/Vol]on 82-05-0507Sdaudrjmaul (Bld) [#/Vol]Lymphocytes [#/volume] in Blood by Automated countLow1.2-3.8[facility] HospitalLymphocytes/100 WBC Auto (Bld)on 10-14-2024 Lymphocytes/100 WBC (Bld)Lymphocytes/100 leukocytes in Blood by Automated count 20.5-60.0[facility] HospitalMCH Auto (RBC) [Entitic mass]on 08-75-5521AEP (RBC) [Entitic mass]MCH [Entitic mass] by Automated count26.7-34.0 [facility] HospitalMCHC Auto (RBC) [Mass/Vol]on 96-52-1054FTKS (RBC) [Mass/Vol]MCHC [Mass/volume] by Automated count29.9-35.2FMercy Health St. Joseph Warren HospitalMCV Auto (RBC) [Entitic vol]on 18-84-2071IGM (RBC) [Entitic vol] MCV [Entitic volume] by Automated count81.0-99.0[facility] HospitalMonocytes Auto (Bld) [#/Vol]on 95-39-9193Noxkjzohj (Bld) [#/Vol]Automated blood monocyte countLow0.3-0.8[facility] HospitalMonocytes/100 WBC Auto (Bld)on 25-51-6051Aizgciwwd/100 WBC (Bld)Automated monocyte %1.7-12.0 [facility] HospitalNeutrophils Auto (Bld) [#/Vol]on 10-14-2024 Neutrophils (Bld) [#/Vol]Neutrophils [#/volume] in Blood by Automated count 1.4-6.5FMercy Health St. Joseph Warren HospitalNeutrophils/100 WBC Auto (Bld)on 37-07-1083Fmxwjlyghls/100 WBC (Bld)Automated neutrophil %43.0-75.0[facility] HospitalNo Panel Informationon 44-31-9732O-Xkyhiag86.2 ng/mL Abnormal1.1-4.4FMercy Health St. Joseph Warren HospitalComment on above:C-Peptide reference interval is for fasting patients.Performed at: [facility] [id number] Director: Rafita Thomas PhD, Phone: [phone] # (Auto)0.1 10 3/uL0.0-0.7FMercy Health St. Joseph Warren HospitalImmature Granulocyte # (Auto)0.01 10 3/uL0.00-0.03[facility] HospitalPlatelet mean volume Auto (Bld) [Entitic vol]on 65-70-7183Tevcwbxq mean volume (Bld) [Entitic vol]Platelet mean volume [Entitic volume] in Blood by Automated countLow9.5-13.5FMercy Health St. Joseph Warren HospitalPlatelets Auto (Bld) [#/Vol]on 99-96-9720Cuzmklgsg (Bld) [#/Vol]Platelets [#/volume] in Blood by Automated -197JrmzspzobOhio Valley HospitalRBC Auto (Bld) [#/Vol]on 97-83-4185QZN (Bld) [#/Vol]Erythrocytes [#/volume] in Blood by Automated count 4.20-5.40[facility], Incerum or plasma albumin/globulin mass ratioon 88-56-1287Pcciwer/Globulin [Mass ratio]Serum or plasma albumin/globulin mass ratioSelect [facility] Specialty [facility], Incerum or plasma anion gap determinationon 90-05-1521Akyrd gap [Moles/Vol]Serum or plasma anion gap determinationSelect [facility] Specialty [facility], Incerum or plasma glucose measurement 2 hours post 75 gm oral glucose (mass/volume)on 64-49-6754Ovxaqjf 2 Hr post 75 g glucose PO [Mass/Vol]Serum or plasma glucose measurement 2 hours post 75 gm oral glucose (mass/volume)[facility] HospitalComment on above:GLU FAST 87 (<95) Col: 10/14/24 0843 GLU 1HR 111 (<180) Col: 10/14/24 0947 GLU 2HR 81 (<155) Col: 10/14/24 1047Serum or plasma total cholesterol/high density lipoprotein (HDL) cholesterol mass hussain 10-14-2024 Cholesterol.total/Cholesterol in HDL [Mass ratio]Serum or plasma total cholesterol/high density lipoprotein (HDL) cholesterol mass ratOhio Valley HospitalComment on above:3.3 - 4.4 LOW RISK4.4 - 7.1 AVERAGE RISK7.1 - 11.0 MODERATE RISK>11.0 HIGH RISKIGP,APTIMA HPV,AGE GDLNon 06-11-2024 AGE GDLN ACOG TESTINGNote.NOMS HealthcareComment on above:TESTS RESULT FLAG UNITS REF RANGE LAB Clinician Provided Cytology Information Source.............Vagina No. of containers..01 ThinPrep Vial Age Algo ACOG Nichole... FLAG LEGEND: L-Low Normal,H-High Normal,LL-Alert Low,HH-Alert High <-Panic Low,>-Panic High,A-Abnormal,AA-Critical Abnormal Performed at: 01 =[address] [address] Seble Lopez MD, HPV APTIMANegativeNegativeNOMS HealthcareComment on above:This nucleic acid amplification test detects fourteen high- risk HPV types (16,18,31,33,35,39,45,51,52,56,58,59,66,68) without differentiation. Performed at: =[address] [id number] Civil Draftsman: Seble Lopez MD, Phone: [phone] Performed at: [address] [id number] Civil Draftsman: Seble Lopez MD, Phone: [phone] IGP, APTIMA HPV, RFX 16/18,45Note.NOMS HealthcareComment on above:TESTS RESULT FLAG UNITS REF RANGE LAB DIAGNOSIS: 02 NEGATIVE FOR INTRAEPITHELIAL LESION OR MALIGNANCY. Specimen adequacy: 02 Satisfactory for evaluation. Performed by: [place], Job Setter [employer] ([facility]) . 02 Note: Note 02 The [...] <-Panic Low,>-Panic High,A-Abnormal,AA-Critical Abnormal Performed at: [address] [place] [address] Seble Lopez MD, SPATULA-ALONE VAGINA CLINISYNCNOMS [facility] papilloma virus 16+18+31+33+35+39+45+51+52+56+58+59+66+68 DNA [Presence] in Raul 48-84-6905AWE 16+18+31+33+35+39+45+51+52+56+58+59+66+68 DNA Probe+sig amp Ql (Cvx)Negative NegativeOhio Valley HospitalComment on above:This nucleic acid amplification test detects fourteen high-risk HPV types (16,18,31,33,35,39,45,51,52,56,58,59,66,68)without differentiation.Performed at: = - Lab[address] [id number] Director: Seble Lopez MD, Phone: [phone] at: [address] [id number] Director: Seble Lopez MD, Phone: [phone] Panel Informationon 48-56-7196HYU High Risk Other CommentNote. [facility] HospitalComment on above:TESTS RESULT FLAG UNITS REF RANGE LAB DIAGNOSIS: 02 NEGATIVE FOR INTRAEPITHELIAL LESION OR MALIGNANCY.Specimen adequacy: 02 Satisfactory forevaluation.Performed by: [place] Job Setter [employer] ([facility]). 02Note: Note 02 The Pap smear [...] <-Panic Low,>-Panic High,A-Abnormal,AA-Critical Abnormal Performed at:[address] [place] [address] Seble Lopez MD, Httxyhefe Lab Test Patient AgeNote.[facility] HospitalComment on above:TESTS RESULT FLAG UNITS REF RANGE LAB Clinician Provided Cytology Information Source.............Vagina No. of containers..01 ThinPrep VialAge Meño PERSON Nichole... 3065 FLAG LEGEND: L- Low Normal,H-High Normal,LL-Alert Low,HH-Alert High <-Panic Low,>-Panic High,A-Abnormal,AA-Critical Abnormal Performed at:01 =[address] [address] Seble Lopez MD, Tckhkqjcx Auto (Bld) [#/Vol]on 16-30-4975Dcegwclft (Bld) [#/Vol]0.0 10 3/uL0.0-0.1FMercy Health St. Joseph Warren HospitalBasophils/100 WBC Auto (Bld)on 43-92-9109Sxnkejwcf/100 WBC (Bld)1.2 %0.2-2.0[facility] HospitalCholesterol in LDL Calc [Mass/Vol]on 39-35-0730Xghlihorted in LDL [Mass/Vol]143.0 mg/dLOhio Valley HospitalComment on above:<100 mg/dl SVXWOMD802-220 mg/dl NEAR OR ABOVE VCPOFJR820-269 mg/dl BORDERLINE KECR149-610 mg/dl HIGH>190 mg/dl VERY HIGHCholesterol in VLDL Calc [Mass/Vol]on 86-46-3171Rtewamyokrq in VLDL [Mass/Vol]14.4 mg/dLOhio Valley HospitalEosinophils/100 WBC Auto (Bld)on 25-73-5022Ujfdsfscfgq/100 WBC (Bld)1.2 % 0.9-7.0[facility] HospitalErythrocyte distribution width Auto (RBC) [Ratio]on 53-23-5259Fgmtcfptzce distribution width (RBC) [Ratio]11.9 % 11.0-15.0[facility] HospitalEstimated glomerular filtration rate (GFR) non- Americanon 12-17-5283FJM/1.73 sq M.predicted among non-blacks MDRD (S/P/Bld) [Vol rate/Area]mL/min/{1.73_m2}>=60[facility] HospitalGlobulin Calc (S) [Mass/Vol]on 66-90-3761Jyhznznl (S) [Mass/Vol]4.2 g/dL [facility] HospitalGlucose mean value [Mass/volume] in Blood Estimated from glycated hemoglobinon 94-08-5973Awortua glucose Estimated from glycated hemoglobin (Bld) [Mass/Vol]105 mg/dLOhio Valley Hospital Hematocrit Auto (Bld) [Volume fraction]on 50-27-0018Jjlvufmonx (Bld) [Volume fraction]33.4 %Low36.0-48.0[facility] HospitalHemoglobin [Mass/volume] in Bloodon 17-24-5743Zwblurctfu (Bld) [Mass/Vol]11.1 g/dLLow 12.0-16.0[facility] HospitalLaboratory - Chemistry and Chemistry - challengeon 50-63-2490Gxyssnr [Mass/Vol]3.0 g/dLLow3.4-5.0[facility] HospitalALP [Catalytic activity/Vol]93 U/G42-661SngnvncnuOhio Valley HospitalALT [Catalytic activity/Vol]24 U/V97-85EtdagpgirOhio Valley Hospital AST [Catalytic activity/Vol]22 U/W30-70ZznznvnwaOhio Valley Hospital Bilirubin [Mass/Vol]0.6 mg/dL0.2-1.0[facility] HospitalCalcium [Mass/Vol]9.0 mg/dL8.5-10.1FMercy Health St. Joseph Warren HospitalChloride [Moles/Vol] 104 mmol/T92-786EecsmmxzyOhio Valley HospitalCholesterol [Mass/Vol]212 mg/dL High<=200[facility] HospitalCholesterol in HDL [Mass/Vol]55 mg/dL 40-60[facility] HospitalComment on above:> or =60 mg/dl - LOW CARDIOVASCULAR RISK<40 mg/dl - HIGH CARDIOVASCULAR RISKCO2 [Moles/Vol]30.3 mmol/L21.0-32.0[facility] HospitalCreatinine [Mass/Vol]0.80 mg/dL 0.55-1.02[facility] HospitalGFR/1.73 sq M.predicted MDRD (S/P/Bld) [Vol rate/Area]mL/min/{1.73_m2}>=60[facility] HospitalGlucose [Mass/Vol]103 mg/cN98-092RshdjwfneOhio Valley HospitalPotassium [Moles/Vol] 3.6 mmol/L3.5-5.1FMercy Health St. Joseph Warren HospitalProtein [Mass/Vol]7.2 g/dL 6.4-8.2FTuscarawas Hospitalodium [Moles/Vol]143 mmol/G857-068 [facility] HospitalTriglyceride [Mass/Vol]72 mg/dL<=150[facility] HospitalUrea nitrogen [Mass/Vol]15.0 mg/dL7.0-18.0[facility] HospitalUrea nitrogen/Creatinine [Mass ratio]18.8 mg/mgOhio Valley HospitalLaboratory - Hematology and Cell countson 51-56-2277OpS4s (Bld) [Mass fraction]5.3 %4.5-6.2FMercy Health St. Joseph Warren HospitalComment on above:ADA RECOMMENDED LIMIT 4.0 - 6.0ADA THERAPEUTIC TARGET < 7.0ACTION SUGGESTED> 7.0Immature granulocytes/100 WBC (Bld)0.0 %0.0-0.5FMercy Health St. Joseph Warren HospitalLeukocytes [#/volume] corrected for nucleated erythrocytes in Blood by Automated counon 55-44-6549VQW corrected for nucl RBC Auto (Bld) [#/Vol]3.3 10 3/uLLow4.0-11.0[facility] HospitalLymphocytes Auto (Bld) [#/Vol]on 55-35-8305Kxtiohoiaue (Bld) [#/Vol]1.1 10 3/uLLow1.2-3.8 [facility] HospitalLymphocytes/100 WBC Auto (Bld)on 03-27-2024 Lymphocytes/100 WBC (Bld)32.4 %20.5-60.0CentervilleH Auto (RBC) [Entitic mass]on 17-69-5040NSL (RBC) [Entitic mass]31.3 pg26.7-34.0 [facility] HospitalMCHC Auto (RBC) [Mass/Vol]on 33-16-6030SMKS (RBC) [Mass/Vol]33.2 g/dL29.9-35.2FMercy Health St. Joseph Warren HospitalMCV Auto (RBC) [Entitic vol]on 93-06-8332KGB (RBC) [Entitic vol]94.1 fL81.0-99.0[facility] HospitalMonocytes Auto (Bld) [#/Vol]on 32-33-7575Ewullkkfr (Bld) [#/Vol]0.4 10 3/uL0.3-0.8[facility] HospitalMonocytes/100 WBC Auto (Bld)on 82-96-3172Fjlbmtdtw/100 WBC (Bld)10.6 %1.7-12.0[facility] HospitalNeutrophils Auto (Bld) [#/Vol]on 38-63-3995Vnotnslwxey (Bld) [#/Vol]1.8 10 3/uL1.4-6.5FMercy Health St. Joseph Warren HospitalNeutrophils/100 WBC Auto (Bld)on 74-98-0759Brrsgtjulfz/100 WBC (Bld)54.6 %43.0-75.0[facility] HospitalNo Panel Informationon 06-03-6272Qecmemtwmao # (Auto)0.0 10 3/uL0.0-0.7FMercy Health St. Joseph Warren HospitalImmature Granulocyte # (Auto)0.00 10 3/uL0.00-0.03[facility] HospitalPlatelet mean volume Auto (Bld) [Entitic vol]on 92-09-8014Bywehrzl mean volume (Bld) [Entitic vol]8.8 fL Low9.5-13.5FMercy Health St. Joseph Warren HospitalPlatelets Auto (Bld) [#/Vol]on 88-57-8688Jyhyyiabx (Bld) [#/Vol]393 10 3/xL899-841PrcgislpyOhio Valley HospitalRBC Auto (Bld) [#/Vol]on 28-28-3379RSD (Bld) [#/Vol]3.55 10 6/uLLow 4.20-5.40[facility], Incerum or plasma albumin/globulin mass ratioon 10-63-1004Cuylvcn/Globulin [Mass ratio]0.7 {ratio}[facility], Incerum or plasma anion gap determinationon 85-84-3729Ydova gap [Moles/Vol]12.3 mmol/LFTuscarawas Hospitalerum or plasma total cholesterol/high density lipoprotein (HDL) cholesterol mass hussain 03-27-2024 Cholesterol.total/Cholesterol in HDL [Mass ratio]3.9 {ratio}[facility] HospitalComment on above:3.3 - 4.4 LOW RISK4.4 - 7.1 AVERAGE RISK7.1 - 11.0 MODERATE RISK>11.0 HIGH RISKFibrin D-dimer [Presence] in Platelet poor plasma by Latex agglutinationon 23-16-4171Jyjynn D-dimer LA Ql (PPP)1.05 mg/L FEUHigh<=0.59[facility] HospitalComment on above:RESULTS CALLED TO MARYSE SINGLETON [...] thrombolyticor anticoagulant therapy, stress, and generalizedhospitalization. DIHYDROTESTOSTERONEon 40-70-2040Ibayarmtmsnkmjggblc45 ng/dLWyandot Memorial HospitalComment on above:Result Comment: This test was developed and its performance characteristics determined by [facility]. It has not been cleared or approved by the Food and Drug Administration. Reference Range: Adult Female: 4 - 22Performed By: #### DHT #### [facility] [address] [place] [address] Dr. Manny EllerTESTOSTERONE, FREE,DIRECT, TOTALon 87-02-6787Voqg Testosterone(Direct)1.7 pg/mLNormal0.0-4.2The [facility] LimaComment on above: Result Comment: Performed at: BNPerformed By: #### TESTFRD #### [facility] [address] [place] [address] Dr. Manny EllerTestosterone [Mass/Vol]32 ng/dLNormal4-50The [facility] Comment on above:Result Comment: Performed at: CBPerformed By: #### TESTFRD #### [facility] [address] [place] [address] Dr. Manny TadeoEA-SULFATEon 71-99-9526YUEV-Sqxolpv772.0 ug/zBZwrzac13.2-243.7 The [facility] LimaComment on above:Performed By: #### DHEASUL #### [facility] [address] [place] [address] Dr. Manny EllerMG MAMM SCREEN 3D ELOY CADon 10-07-4329AI MAMM SCREEN 3D ELOY CAD Patient: JENNIFER ZAMORA Exam Date: 11/30/2022 : 1970 Gender:F Ordering : DR ARMANDO MARTINEZ . Admission #: [id number] Family : Order #: [id number] CLICK HERE TO VIEW EXAM RADIOLOGY REPORT [...] Treatments None Family Cancers None LOCATION: [facility] BREAST COMPOSITION: Scattered areas fibroglandular density. FINDINGS: [...] by: Carlos Gabriel MD on 11/30/2022 at 13:57[facility] COVID/FLU RT-PCRon 32-29-5194GGWO-CoV-2 (COVID-19) RNA BOB+probe Ql (Unsp spec) PositiveSwedish Medical Center [facility] [place] Other COVID/FLU RT-PCRNegativeSwedish Medical Center [facility] [place] Other CORTISOLon 27-01-6091Pkmdvlwu4.8 ug/dLNoMercy Health St. Charles HospitalComment on above:Result Comment: Cortisol AM 6.2 - 19.4 Cortisol PM 2.3 - 11.9Performed By: #### DHT #### [facility] [address] [place] [address] Dr. Manny EllerTESTOSTERONE, FREE,DIRECT, TOTALon 18-86-4434Wgas Testosterone(Direct)<0.0Krbift7.0-4.2[facility] County HospitalComment on above: Result Comment: Performed at: BNPerformed By: #### TESTFRD #### [facility] [address] [place] [address] Dr. Manny EllerTestosterone [Mass/Vol]ng/dLCritically low4-50Henry [facility] HospitalComment on above:Result Comment: Performed at: CBPerformed By: #### TESTFRD #### [facility] [address] [place] [address] Dr. Manny EllerCORTISOLon 92-78-1131Atesrwce9.5 ug/dLWyandot Memorial Hospital Comment on above:Result Comment: Cortisol AM 6.2 - 19.4 Cortisol PM 2.3 - 11.9Performed By: #### CORTISO #### [facility] [address] [place] [address] Dr. Manny TadeoEA-SULFATEon 59-88-7342ZRWG-Gimorbf17.2 ug/dLCritically low 41.2-243.7ThThe University of Toledo Medical CenterComment on above:Performed By: #### DHEASUL #### [facility] [address] [place] [address] Dr. Manny GarciaTRADIOLon 97-15-0177Lgtkdjtmi49.9 pg/mLNMercer County Community HospitalComment on above:Result Comment: Adult Female: Follicular phase 12.5 - 166.0 Ovulation phase 85.8 - 498.0 Luteal phase 43.8 - 211.0 Postmenopausal <6.0 - 54.7 1st trimester 215.0 - >4300.0 [place] ECLIA methodologyPerformed By: #### CMP, LIPID #### [facility] [address] [place] [address] Dr. Manny GarciaTRONEon 03-78-0181Dziajiq, Serum<6NormalThThe [facility] of [facility] Comment on above:Result Comment: Range Adult (Premenopausal) 27 - 231 Menstrual Cycle (1-10 days) 19 - 149 Menstrual Cycle (11-20 days) 32 - 176 Menstrual Cycle (21-30 days) 37 - 200 Adult (Postmenopausal) 0 - 125Performed By: #### ESTRONE #### [facility] [address] [place] [address] Dr. Manny EllerPROGESTERONEon 03-76-9716Tphhxekdllln<0.1NMercer County Community HospitalComment on above:Result Comment: Follicular phase 0.1 - 0.9 Luteal phase 1.8 - 23.9 Ovulation phase 0.1 - 12.0 First trimester 11.0 - 44.3 Second trimester 25.4 - 83.3 Third trimester 58.7 - 214.0 Postmenopausal 0.0 - 0.1Performed By: #### CMP, LIPID #### [facility] [address] [place] [address] Dr. Manny LukeX HORMONE-BINDING GLOBULINon 25-85-2277Mem Horm Binding Glob, Serum55.9 nmol/YUsqozu50.3-125.0The [facility] Hospitalment on above:Performed By: #### SEXHBG #### [facility] [address] [place] [address] Dr. Manny EllerGLYCOHEMOGLOBIN A1Con 45-71-5239IFK RECOMMENDATIONSEE BELOWNormal The [facility] LimaComment on above:Result Comment: ADA RECOMMENDED LIMIT 4.0 - 6.0 ADA THERAPEUTIC TARGET < 7.0 ACTION SUGGESTED > 7.0Performed By: #### DHT #### [facility] [address] [place] [address] Dr. Manny EllerGlucose [Mass/Vol]108 mg/dLNoMercy Health St. Charles HospitalComment on above:Performed By: #### DHT #### [facility] [address] [place] [address] Dr. Manny EllerHbA1c (Bld) [Mass fraction]5.4 %Normal4.5-6.2The [facility] LimaComment on above:Performed By: #### DHT #### [facility] [address] [place] [address] Dr. Manny EllerPOTASSIUMon 08-05-4013Azgjqclpg [Moles/Vol]3.6 mmol/LNormal 3.5-5.1The [facility] on above:Performed By: #### CMP, LIPID #### [facility] [address] [place] [address] Dr. Manny EllerVITAMIN D 25 OHon 39-65-6206MXU D 25-OH37.3 ng/mLNormalThe [facility] LimaCombeaumont hospital on above:Performed By: #### DHT #### [facility] [address] [place] [address] Dr. Manny Fish D RANGES[place] BELOWWyandot Memorial HospitalCombeaumont hospital on above: Result Comment: <20 ng/mL Vit D deficient 20 - <30 ng/mL Vit D insufficient 30 - 100 ng/mL Vit D sufficient >100 ng/mL Potential ToxicityPerformed By: #### DHT #### [facility] [address] [place] [address] Dr. Manny Yip AUTO DIFFon 89-84-9556RZFZ #0.1 103/ulNormal0.0-0.1The [facility] LimaComment on above:Performed By: #### CMP, LIPID #### [facility] [address] [address] [address] Manny EllerBasophils/100 WBC (Bld)1.1 %Normal0.2-2.0[facility] Comment on above:Performed By: #### CMP, LIPID #### [facility] [address] [address] [address] Manny Weinstein #0.1 103/ulNormal0.0-0.7The [facility] LimaComment on above: Performed By: #### CMP, LIPID #### [facility] [address] [place] [address] Dr. Manny Urbanoosinophils/100 WBC (Bld)1.1 %Normal0.9-7.0[facility] Comment on above:Performed By: #### CMP, LIPID #### [facility] [address] [address] [address] Manny Urbanorythrocyte distribution width (RBC) [Ratio]12.2 %Cubnyh44.0-15.0 The [facility] LimaComment on above:Performed By: #### CMP, LIPID #### [facility] [address] [place] [address] Dr. Manny EllerHematocrit (Bld) [Volume fraction]42.9 %Uggmis06.0-48.0The [facility] LimaComment on above:Performed By: #### CMP, LIPID #### [facility] [address] [place] [address] Dr. Manny EllerHemoglobin (Bld) [Mass/Vol]15.0 g/dLNgmzna36.0-16.0The [facility] LimaComment on above:Performed By: #### CMP, LIPID #### [facility] [address] [place] [address] Dr. Manny Esparza #0.01 10e3/ulNormal0.00-0.03The [facility] LimaComment on above:Performed By: #### CMP, LIPID #### [facility] [address] [place] [address] Dr. Manny Esparza %0.2 %Normal0.0-0.5The [facility] LimaComment on above: Performed By: #### CMP, LIPID #### [facility] [address] [place] [address] Dr. Manny Calderon #1.3 103/ulNormal1.2-3.8The [facility] LimaComment on above:Performed By: #### CMP, LIPID #### [facility] [address] [place] [address] Dr. Manny Hunterhocytes/100 WBC (Bld)28.4 %Hfqhdu14.5-60.0The [facility] LimaComment on above:Performed By: #### CMP, LIPID #### [facility] [address] [place] [address] Dr. Manny MorelosUAL DIFF REQNONormalThe [facility] Hospital LimaComment on above: Performed By: #### CMP, LIPID #### [facility] [address] [place] [address] Dr. Manny Rodriguez (RBC) [Entitic mass]32.3 rxRrtqgd90.7-34.0The [facility] LimaComment on above:Performed By: #### CMP, LIPID #### [facility] [address] [place] [address] Dr. Manny Jimenez (RBC) [Mass/Vol]35.0 g/tUZmauyr99.9-35.2The [facility] LimaComment on above:Performed By: #### CMP, LIPID #### [facility] [address] [place] [address] Dr. Manny Jimenez (RBC) [Entitic vol]92.5 sBCdjmad87.0-99.0The [facility] LimaComment on above:Performed By: #### CMP, LIPID #### [facility] [address] [place] [address] Dr. Manny Lockhart #0.3 103/ulNormal0.3-0.8The [facility] LimaComment on above:Performed By: #### CMP, LIPID #### [facility] [address] [place] [address] Dr. Manny Baileyocytes/100 WBC (Bld)7.0 %Normal1.7-12.0The [facility] Comment on above:Performed By: #### CMP, LIPID #### [facility] [address] [place] [address] Dr. Manny Membreno #2.8 103/ulNormal1.4-6.5The [facility] LimaComment on above:Performed By: #### CMP, LIPID #### [facility] [address] [place] [address] Dr. Manny Berriosutrophils/100 WBC (Bld)62.2 %Zallpp54.0-75.0The [facility] LimaComment on above:Performed By: #### CMP, LIPID #### [facility] [address] [place] [address] Dr. Manny De La Cruzlet mean volume (Bld) [Entitic vol]9.6 fLNormal9.5-13.5The [facility] LimaComment on above:Performed By: #### CMP, LIPID #### [facility] [address] [place] [address] Dr. Manny EllerPLT322 103/cvMzxddw574-114Hcg [facility] LimaComment on above: Performed By: #### CMP, LIPID #### [facility] [address] [place] [address] Dr. Manny EllerRBC4.64 106/ulNormal4.20-5.40The [facility] LimaComment on above:Performed By: #### CMP, LIPID #### [facility] [address] [place] [address] Dr. Manny EllerWBC4.6 103/ulNormal4.0-11.0The [facility] LimaComment on above: Performed By: #### CMP, LIPID #### [facility] [address] [address] [address] Manny PadillaID PROFILEon 91-48-0013DORB-HDL RATIO NORMSMercy Health St. Joseph Warren HospitalComment on above:Result Comment: 3.3 - 4.4 LOW RISK 4.4 - 7.1 AVERAGE RISK 7.1 - 11.0 MODERATE RISK >11.0 HIGH RISKPerformed By: #### CMP, LIPID #### [facility] [address] [address] [address] Manny EllerCholesterol [Mass/Vol]171 mg/dLNormal<=200The [facility] Comment on above:Performed By: #### CMP, LIPID #### [facility] [address] [place] [address] Dr. Manny EllerCholesterol in HDL [Mass/Vol]49 mg/zHJrooyj82-82ZibHenry County HospitalComment on above:Performed By: #### CMP, LIPID #### [facility] [address] [place] [address] Dr. Manny EllerCholesterol in LDL [Mass/Vol]103.4 mg/dLWyandot Memorial HospitalComment on above:Performed By: #### CMP, LIPID #### [facility] [address] [place] [address] Dr. Manny Rodriguezesterozzie.total/Cholesterol in HDL [Mass ratio]3.5 {ratio} NormalHenry County HospitalComment on above:Performed By: #### CMP, LIPID #### [facility] [address] [place] [address] Dr. Manny Pepper NORMAL> or = 60 mg/dl - LOW CARDIOVASCULAR RISK <40 mg/dl - HIGH CARDIOVASCULAR RISKWyandot Memorial HospitalComment on above:Performed By: #### CMP, LIPID #### [facility] [address] [place] [address] Dr. Manny EllerLDL CALC NORMALSEE [facility] HospitalComment on above:Result Comment: <100 mg/dl OPTIMAL 100 - 129 mg/dl NEAR OR ABOVE OPTIMAL 130 - 159 mg/dl BORDERLINE HIGH 160 - 189 mg/dl HIGH >190 mg/dl VERY HIGH Performed By: #### CMP, LIPID #### [facility] [address] [address] [address] Manny EllerTriglyceride [Mass/Vol]93 mg/dLNormal<=150The [facility] Comment on above:Performed By: #### CMP, LIPID #### [facility] [address] [address] [address] Manny EllerVLDL CALC18.6 mg/dLNormalThe [facility] LimaComment on above: Performed By: #### CMP, LIPID #### [facility] [address] [place] [address] Dr. Manny EllerPROAguila 14(COMP METB)on 28-31-9226Iakerqz [Mass/Vol]3.8 g/dLNormal 3.4-5.0The [facility] LimaComment on above:Performed By: #### CMP, LIPID #### [facility] [address] [place] [address] Dr. Manny EllerAlbumin/Globulin [Mass ratio]1.1 {ratio}NormalThe [facility] LimaComment on above:Performed By: #### CMP, LIPID #### [facility] [address] [place] [address] Dr. Manny Funes [Catalytic activity/Vol]73 U/RZnbunu38-233Orb [facility] LimaComment on above:Performed By: #### CMP, LIPID #### [facility] [address] [place] [address] Dr. Manny Meredith [Catalytic activity/Vol]39 U/QYyxsag89-06Mwg [facility] LimaComment on above:Performed By: #### CMP, LIPID #### [facility] [address] [place] [address] Dr. Manny Gordon gap [Moles/Vol]11.6 mmol/LNormalThe [facility] Comment on above:Performed By: #### CMP, LIPID #### [facility] [address] [place] [address] Dr. Manny Edwards [Catalytic activity/Vol]23 U/DHxpquk03-48Bhn [facility] LimaComment on above:Performed By: #### CMP, LIPID #### [facility] [address] [address] [address] Manny EllerBilirubin [Mass/Vol]0.7 mg/dLNormal0.2-1.0[facility] Comment on above:Performed By: #### CMP, LIPID #### [facility] [address] [place] [address] Dr. Manny EllerCalcium [Mass/Vol]9.3 mg/dLNormal8.5-10.1The [facility] Comment on above:Performed By: #### CMP, LIPID #### [facility] [address] [place] [address] Dr. Manny EllerChloride [Moles/Vol]101 mmol/OSblmie48-450Vre [facility] Comment on above:Performed By: #### CMP, LIPID #### [facility] [address] [place] [address] Dr. Manny EllerCO2 [Moles/Vol]31.2 mmol/FBuugks68.0-32.0The [facility] Comment on above:Performed By: #### CMP, LIPID #### [facility] [address] [place] [address] Dr. Manny EllerCreatinine [Mass/Vol]0.87 mg/dLNormal0.55-1.02The [facility] LimaComment on above:Performed By: #### CMP, LIPID #### [facility] [address] [place] [address] Dr. Manny UrbanoGFR-AF CITIZEN [place]>60Normal>=60The [facility] LimaComment on above:Performed By: #### CMP, LIPID #### [facility] [address] [place] [address] Dr. Manny UrbanoGFR-NON AF CITIZEN OF [place]>60Normal>=60The [facility] LimaComment on above:Performed By: #### CMP, LIPID #### [facility] [address] [place] [address] Dr. Manny EllerGlobulin (S) [Mass/Vol]3.6 g/dLNormProvidence HospitalComment on above:Performed By: #### CMP, LIPID #### [facility] [address] [place] [address] Dr. Manny EllerGlucose [Mass/Vol]124 mg/dLCritically zfcp32-267Tuf [facility] LimaComment on above:Performed By: #### CMP, LIPID #### [facility] [address] [place] [address] Dr. Manny EllerPotassium [Moles/Vol]2.8 mmol/LCritically low3.5-5.1The [facility] LimaComment on above:Performed By: #### CMP, LIPID #### [facility] [address] [place] [address] Dr. Manny EllerProtein [Mass/Vol]7.4 g/dLNormal6.4-8.2[facility] Comment on above:Performed By: #### CMP, LIPID #### [facility] [address] [place] [address] Dr. Manny EllerSodium [Moles/Vol]141 mmol/ZYyhkmc734-572Wcg [facility] Comment on above:Performed By: #### CMP, LIPID #### [facility] [address] [place] [address] Dr. Manny EllerUrea nitrogen [Mass/Vol]15.0 mg/dLNormal7.0-18.0The [facility] LimaComment on above:Performed By: #### CMP, LIPID #### [facility] [address] [place] [address] Dr. Manny EllerUrea nitrogen/Creatinine [Mass ratio]17.2 mg/mgNoMercy Health St. Charles HospitalComment on above:Performed By: #### CMP, LIPID #### [facility] [address] [place] [address] Dr. Manny Marshall Visit (Cardiology)on 15-11-7982Dvwwdf-up visit Diagnoses/Problems Assessed Palpitations (785.1) (R00.2) NSVT [...] Recorded: 18Jul2022 01:41PM Heart Rate68, L Radial Yyqehsam931, LUE, Sitting Uudjoukrh38, LUE, Sitting Height5 ft 7 in Fsyyyv725 lb 4 oz BMI Kqwoxflnwg86.54 kg/m2 BSA Ca (more content not included)...NormalUH TouchworksTobacco Screening.on 11-37-5402Vvumg depression screening assessmentNo-[facility] [employer] 250 DO Work Phone: Tobacco use status CPHSb) NoMP-[facility] 250 DO Work Phone: CT HEAD WO CONon 48-31-1668VJ HEAD WO CONEXAMINATION: CT HEAD WO CON [...] by: ADAIR SCHMITT Date: 2022-07-15 11:[address] [facility] NECK WO W CONon 10-54-7693LRQ NECK WO W CON EXAMINATION: CTA NECK [...] Electronically authenticated by: CARLOS RUBI Date: 2022-07-15 14:[address] [place], [place] [address]Urinalysis - AUTOMATEDon 98-73-0368Wbtwyjhbli (U)clearNoThe Muse Other Bilirubin Ql (U)NegativeNoLumenergi [employer] Other Color (U)orange yellowNoLumenergi [employer] Other Glucose Ql (U)100Nort [employer] Other Hemoglobin Ql (U)smallNomissouri rehabilitation center [employer] Other Ketones Ql (U)traceNomissouri rehabilitation center [employer] Other Nitrite Ql (U)PositiveNoThe Muse Other pH (U)6.5 [pH][place] [employer] Other Protein Ql (U)traceNomissouri rehabilitation center [employer] Other Specific gravity (U) [Rel density]1.025[place] [employer] Other Urobilinogen (U) [Mass/Vol]1.0 mg/dLArapaho [employer] Other Urinalysis - AUTOMATEDArapaho [employer] Other Office Visit (Cardiology)on 01-59-0939Iwicnv-up visit Diagnoses/Problems Assessed NSVT (nonsustained ventricular tachycardia) [...] Vital Signs Recorded: 09Nov2021 02:37PMRecorded: 09Nov2021 02:32PM Zxblwimx916, LUE, Njfukeo725, LUE, Sitting Hnerouioh06, LUE, Skzsaha98, LUE, Sitting Heart Rate69, L Brachial Artery Height5 ft 7 in Dkcmmt368 lb BMI Qjfeotahie65.96 kg/m2 BSA Calculated2.17 Tobacco Useb) No Fall Screeningc) Not medical (more content not included)...NormalUH Touchstaila technologies Tobacco Screening.on 62-39-4772Zipe risk assessmentc) Not medically indicatedSt. Mary's Medical [facility] 250 DO Work Phone: Tobacco use status CPHSb) NoMSt. Francis Regional [facility] 250 DO Work Phone: COVID Quick Testingon 19-30-0182EidpeqMdizwwirGilru [employer] Other NO CARDIAC STRESS/REST INJECTIONon 20-49-1028AAQ CARDIAC STRESS/REST INJECTIONMRN: [id number] Patient Name: JENNIFER ZAMORA STUDY: MYOCARDIAL PERFUSION STRESS TEST WITH EXERCISE Performing facility: [facility], [address] [place] [address] Provider: Joao Ramírez MD PCP: Dr. Beatrice Das Supervising provider: Joao Ramírez MD INDICATION: Abnormal EKG; Palpitations NSVT HISTORY: Gender: F; Age: 50 y/o ; Height: 170.18 cm; Weight: 814.3761155 kg. HTN; Palpitations; SOB; Denies smoking. COMPARISON: No comparison. ACCESSION NUMBER(S): [id number]; [id number]; [id number] ORDERING CLINICIAN: JOAO RAMÍREZ TECHNIQUE: TWO DAY [...] for comparison. Electronically signed by: JOAO RAMÍREZ MDKindred Hospital Philadelphia Vital Signs Date TimeVital SignValuePerforming BctafeewpKmrivtzn32-28-8160 13:59-0400Body vobiyj715.18 cmBenjamin Ball DO Work Phone: [facility]09-05-2025 13:59-0400 Body mass index (BMI) [Ratio]25.7 kg/o7Twxfnrmb Ball DO Work Phone: [facility]09-05-2025 13:59-0400 Body pcdjrgrblfe39.9 [degF]Grady Ball DO Work Phone: [facility]09-05-2025 13:59-0400 Body uphhdm31.55 kgBenjamin Ball DO Work Phone: [phone])[address] [place], [place] 7110309-05-2025 13:59-0400 Diastolic blood lsmgdluj89 mm[Hg]Grady Ball DO Work Phone: [phone])[address] [place], [place] 7110309-05-2025 13:59-0400 Heart rate97 /minBenjamin Ball DO Work Phone: [phone])[address] [place], [place] 7110309-05-2025 13:59-0400 Respiratory rate18 /minBenjamin Ball DO Work Phone: [phone])[address] [place], [place] 7110309-05-2025 13:59-0400 SaO2% (BldA) [Mass fraction]99 %Grady Ball DO Work Phone: [phone])[address] [place], [place] 7110309-05-2025 13:59-0400 Systolic blood xqjpgitg976 mm[Hg]Grady Ball DO Work Phone: [phone])[address] [place], [place] 7110308-25-2025 08:40-0400 Body nxxluf124.18 cmBenjamin Ball DO Work Phone: [phone])[address] [place], [place] 7110308-25-2025 08:40-0400 Body mass index (BMI) [Ratio]26 kg/r1Nlzukjpm Ball DO Work Phone: [phone])[address] [place], [place] 7110308-25-2025 08:40-0400 Body eucmvg13.52 kgBenjamin Ball DO Work Phone: [phone])[address] [place], [place] 7110308-25-2025 08:40-0400 Diastolic blood plsqtfez44 mm[Hg]Grady Ball DO Work Phone: [phone])[address] [place], [place] 7110308-25-2025 08:40-0400 Heart rate76 /minBenjamin Ball DO Work Phone: [phone])[address] [place], [place] 7110308-25-2025 08:40-0400 Respiratory rate12 /minBenjamin Ball DO Work Phone: [phone])[address] [place], [place] 7110308-25-2025 08:40-0400 Systolic blood kqrwyxka099 mm[Hg]Grady Ball DO Work Phone: [phone]07-22-2025 14:43-0400 Body ecjzqe244.18 cmBenjamin Ball DO Work Phone: [phone] [place], [place] 2808107-22-2025 14:43-0400 Body mass index (BMI) [Ratio]24.9 kg/w3Tncwykqr Ball DO Work Phone: [phone])[address] [place], [place] 7110307-22-2025 14:43-0400 Body ogizxvmjspq19.1 [degF]Grady Ball DO Work Phone: [phone] [place], [place] 7110307-22-2025 14:43-0400 Body piserj51.17 kgBenjamin Ball DO Work Phone: [phone] [place], [place] 7110307-22-2025 14:43-0400 Diastolic blood wxhysbte37 mm[Hg]Grady Ball DO Work Phone: [phone] [place], [place] 7110307-22-2025 14:43-0400 Heart rate86 /minBenjamin Ball DO Work Phone: [phone] [place], [place] 7110307-22-2025 14:43-0400 Respiratory rate14 /minBenjamin Ball DO Work Phone: [phone] [place], [place] 7110307-22-2025 14:43-0400 SaO2% (BldA) [Mass fraction]99 %Grady Ball DO Work Phone: [phone])[facility] [place], [place] 280[address]107-22-2025 14:43-0400 Systolic blood mm[Hg]Grady Ball DO Work Phone: [phone])[facility]84[facility]02-26-2025 14:39-0500 Body sojtbg653.18 cmOhio Valley Hospital02-26-2025 14:39-0500Body mass index (BMI) [Ratio]25.7 kg/e2NlwpivrorOhio Valley Hospital02-26-2025 14:39-0500Body hsupny44.44 kgOhio Valley Hospital02-26-2025 14:39-0500Diastolic blood fqrcbvju02 mm[Hg][facility] 12-10-2024 14:39-0500Heart fkkw965 /[facility] 12-10-2024 14:39-0500Respiratory rate12 /[facility] 12-10-2024 14:39-0500Systolic blood hqepgghy071 mm[Hg][facility]02-19-2025 13:19-0500Respiratory rate18 /minStanley Orlop DO Work Phone: [facility]02-19-2025 10:30-0500Body vrqmkloppsg34.7 [degF]Krish Orlop DO Work Phone: [facility]02-19-2025 10:30-0500Diastolic blood yukdnuug88 mm[Hg]Krish Orlop DO Work Phone: [facility]02-19-2025 10:30-0500Heart rate99 /minStanley Orlop DO Work Phone: [facility]02-19-2025 10:30-5841VlH8% (BldA) [Mass fraction]99 %Krish Orlop DO Work Phone: [facility]02-19-2025 10:30-0500Systolic blood nazlujrh353 mm[Hg]Krish Orlop DO Work Phone: [facility]02-16-2025 21:15-0500Body ggwbon033.2 cmStanley Orlop DO Work Phone: [facility]02-16-2025 21:15-0500Body mass index (BMI) [Ratio]26.28 kg/k5Igfmexu Orlop DO Work Phone: [facility]02-16-2025 21:15-0500Body ynhmcw61.11 kgStanley Orlop DO Work Phone: [facility]01-07-2025 14:59-0500Body etzwkx014.18 [facility] 14:59-0500Body mass index (BMI) [Ratio]26.3 kg/b0WaycwtbyqOhio [facility]01-07-2025 14:59-0500Body uqztrx77.2 kg[facility]01-07-2025 14:59-0500Diastolic blood xqsroxjy73 mm[Hg][facility] 10-21-2024 14:59-0500Diastolic blood xesatkez56 mm[Hg][facility]01-07-2025 14:59-0500Heart rate80 /[facility] 10-21-2024 14:59-0500Respiratory rate12 /[facility] 10-21-2024 14:59-0500Systolic blood mm[Hg][facility]01-07-2025 14:59-0500Systolic blood osxnwfex057 mm[Hg][facility]08-30-2024 17:20-0400Body wemywr395.18 cm[facility]08-30-2024 17:20-0400Body mass index (BMI) [Ratio]24.1 kg/m2 [facility]08-30-2024 17:20-0400Body rdtmlwzirat67.1 [degF][facility]08-30-2024 17:20-0400Body .96 kg [facility]08-30-2024 17:20-0400Diastolic blood bdoajqyr32 mm[Hg][facility]08-30-2024 17:20-0400Heart rate83 /min [facility]08-30-2024 17:20-0400Respiratory rate16 /min [facility]08-30-2024 17:20-7211SgN4% (BldA) [Mass fraction]99 %[facility]08-30-2024 17:20-0400Systolic blood vfplkpia744 mm[Hg][facility]05-08-2023 16:30-0400 Body ubmawr252.18 cmBenThefuture.fm Ball Other [facility] [employer] Other 05-08-2023 16:30-0400Body mass index (BMI) [Ratio] 25.12 kg/z5Udzhgkbd Ball Other [employer] Other 05-08-2023 16:30-0400Body wteovi86.76 kgBenjamin Ball Other [employer] Other 05-08-2023 16:30-0400Diastolic blood qnuxccmo14 mm[Hg] Grady Ball Other [employer] Other 05-08-2023 16:30-0400Respiratory rate12 /minBenjamin Ball Other [employer] Other 05-08-2023 16:30-0400Systolic blood tbnxrceh191 mm[Hg] Grady Ball Other [employer] Other 02-06-2023 11:50-0500Body qpqlge767.18 cmPamela Margoth Other [employer] Other 02-06-2023 11:50-0500Body mass index (BMI) [Ratio] 24.68 kg/u9Wnfhhr Margoth Other [employer] Other 02-06-2023 11:50-0500Body cuodadhnvtp67.2 [degF]Clare Margoth Other [employer] Other 02-06-2023 11:50-0500Body mzpzip68.49 kgPamela Margoth Other [employer] Other 02-06-2023 11:50-0500Respiratory rate18 /minPamela Margoth Other 482.577.2844nort [employer] Other 02-06-2023 11:50-5840StG4% (BldA) [Mass fraction]97 % Clare Justin Other [facility] [employer] Other 10-04-2022 13:41-0400Body kkqyyl713.18 cmBenjamin E Ball Work Phone: [phone]-Wgcbi [employer] 250 DO Work Phone: [phone] 293-526810-04-2022 13:41-0400Body mass index (BMI) [Ratio] 28.54 kg/l5Bmrzwcsf E Ball Work Phone: [phone]-Wstng [employer] 250 DO Work Phone: [phone]) 291-456110-04-2022 13:41-0400Body surface area Derived from formula1.94 v9Lylyhozb E Ball Work Phone: [phone]-Mkhec [employer] 250 DO Work Phone: [phone]) [phone] 13:41-0400Body mitoki00.67 kgBenjamin E Ball Work Phone: [phone]-Lyrqj [employer] 250 DO Work Phone: 1([phone]) 308-871610-04-2022 13:41-0400Diastolic blood bvlhoejl12 mm[Hg] Grady E Ball Work Phone: [phone]-Jaedl [employer] 250 DO Work Phone: 1(487) 543-156010-04-2022 13:41-0400Heart rate68 /minBenjamin E Ball Work Phone: [phone]-Gfnle [employer] 250 DO Work Phone: 1(286) 497-784310-04-2022 13:41-0400Systolic blood fsweyvpv693 mm[Hg] Grady E Ball Work Phone: [phone]-Hidfr [employer] 250 DO Work Phone: 1(720) 767-546105-10-2022 14:42-0400Blood Pressure LocationJENNIFER CHARLEE [facility] [place] 05-10-2022 14:42-0400Diastolic blood igyvmbod45 mm[Hg] MABLE CHARLEE [facility] [place] 05-10-2022 14:42-0400Heart rate84 /minJENNIFER CHARLEE [facility] 05-10-2022 14:42-0400Systolic blood mm[Hg] MABLE CHARLEE [facility] [place] 03-20-2022 15:45-0400Body .18 cmPamelgarrison Justin Other [employer] Other 03-20-2022 15:45-0400Body mass index (BMI) [Ratio] 34.45 kg/x9KjgsrnClare Justin Other [employer] Other 03-20-2022 15:45-0400Body jmvrmfbavwj50.8 [degF]Clare Margoth Other [employer] Other 03-20-2022 15:45-0400Body qlpayu59.79 kgMarianoluis Crawfordmond Other [employer] Other 03-20-2022 15:45-0400Diastolic blood tijotphl43 mm[Hg] Clare Margoth Other [employer] Other 03-20-2022 15:45-0400Respiratory rate18 /Jonatan Justin Other [employer] Other 03-20-2022 15:45-6229VzH3% (BldA) [Mass fraction]100 % Clare Justin Other [employer] Other 03-20-2022 15:45-0400Systolic blood mm[Hg] Clare Justin Other [facility] [employer] Other 01-26-2022 14:37-0500Diastolic blood mmkzsmum15 mm[Hg] Grady E Ball Work Phone: [phone]-Bjqcv [place] [employer] DO Work Phone: 1(919) [phone] 14:37-0500Systolic blood bwqduvqs951 mm[Hg] Grady E Ball Work Phone: [phone]) [phone]-Qihab [place] [employer] DO Work Phone: 1(639) 471-768301-26-2022 14:32-0500Body .18 cmBenjamin E Ball Work Phone: 1(310) [phone]-Kynpm [place] [employer] DO Work Phone: 1(580) [phone] 14:32-0500Body mass index (BMI) [Ratio] 36.96 kg/g5Vtdpsydj E Ball Work Phone: [phone]) [phone]-Ufkxq [employer] 250 DO Work Phone: 1(316) [phone] 14:32-0500Body surface area Derived from formula2.17 l4Xnystfqy E Ball Work Phone: [phone]-Dpnyt [employer] 250 DO Work Phone: 1(845) 820-299401-26-2022 14:32-0500Body .05 kgBenjamin E Ball Work Phone: 1(681) [phone]-Ogzmm [facility] 250 DO Work Phone: 1(939) 313-421701-26-2022 14:32-0500Diastolic blood mutlxmex54 mm[Hg] Grady Toney [employer] Work Phone: [phone]-Ksias [employer] 250 DO Work Phone: 1(488) 371-736801-26-2022 14:32-0500Heart rate69 /minBenjamin E Ball Work Phone: [phone]-Pwijw [employer] 250 DO Work Phone: 1(788) [phone] 14:32-0500Systolic blood aoncnjcx636 mm[Hg] Grady Toney [employer] Work Phone: [phone]-Gizho [place] [employer] DO Work Phone: 1(781) 372-976010-20-2021 15:45-0400Body wumnpo669.18 cmPamelgarrison CrawfordMargoth Other [employer] Other 10-20-2021 15:45-0400Body mass index (BMI) [Ratio] 37.59 kg/j1Fpqcju Margoth Other [employer] Other 10-20-2021 15:45-0400Body .2 [degF]Clare Margoth Other [employer] Other 10-20-2021 15:45-0400Body kyound434.86 kgClare Justin Other [employer] Other 10-20-2021 15:45-0400Respiratory rate18 /minClare Justin Other [employer] Other 10-20-2021 15:45-6905RtA3% (BldA) [Mass fraction]97 % Clare Margoth Other [employer] Other Encounters Encounter DateEncounter TypeCare ProviderFacilityStart: 85-24-5732dlzncfhytm Kathy M. LueFacility:EU [place]walkStart: 06-19-2025 End: 93-20-1071bxrcwdiunoDzfzjwms Ball DO Work Phone: [facility] Work Phone: Start: 06-19-2025 End: 77-99-8618Dmzuggp encounter procedurePaluciana Jorgensen MAILROOM COORDINATOR-[facility] Work Phone: Start: 06-18-2025 End: 84-85-6892mqwccanwovYtauq M. LueFacility:EU NorkStart: 06-18-2025 End: 58-53-6179Wvasnah encounter procedureRosmery Bronson [facility] Start: 06-08-2025 End: 83-98-5834rcyqlxnfgyMbrleqxu Ball DO Work Phone: [facility] Work Phone: Start: 06-08-2025 End: 84-60-7332Tccybwmv ReferredBenjamin Ball DO-LAB [facility] Start: 06-08-2025 End: 72-75-8675zywingoazvXhiguvcq Ball DO Work Phone: [facility] Work Phone: Start: 06-08-2025 End: 97-95-6841Izcewcv encounter procedureBensergeymin Ball DO-[facility] Work Phone: Start: 77-56-6746Vwy-patient / Non-visitCatherine Wu GENERATOR ASSEMBLER-[facility] Work Phone: Start: 06-02-2025 End: 03-26-3499whzdqwidijMhqfd M. LueFacility:FTMCStart: 05-18-2025 End: 35-06-8138fchfxzaydiCisvf M. LueFacility:FTMCStart: 05-05-2025 End: 82-76-7289uvxxhifixaInycavul Pippa DO Work Phone: [facility] Work Phone: Start: 05-05-2025 End: 57-46-6046Zaymvub encounter procedureShasha Isaac MAILROOM COORDINATOR-[facility] Work Phone: Start: 04-27-2025 End: 29-54-9141pguksfqhgmHfgdo M. LueFacility:EU [place]walkStart: 04-27-2025 End: 49-49-9563Pxexrpz encounter procedureRosmery Bronson [facility] Start: 23-15-0239fneexzefkkNmlgd LueFacility:EU [place]uskyStart: 12-10-2024 End: 31-59-6793dylsqsmxthQvguxdjiwUniversity Hospitals Ge[facility] Work Phone: Start: 12-10-2024 End: 55-49-0378Spnbaeq encounter procedureWilmer [facility]ician [facility] Work Phone: Start: 23-45-5881Mwe-patient / Non-visitFormerly [facility] Work Phone: Start: 11-30-2024 End: 30-03-4292Wjmjfxxfnr and management of inpatientSrachel Ferreira DO Work Phone: [facility] WestComment on above:GallstonesStart: 96-02-8921Zer-patient / Non-visitFormerly [facility] Work Phone: Start: 10-21-2024 End: 06-35-5495hgppdxviyuGlrotpevdBethesda North Hospital Work Phone: Start: 10-21-2024 End: 38-44-9461Ssjxgbyab for general adult medical examination without abnormal findingsSelect [facility], Inctart: 10-21-2024 End: 32-02-4488Qfsbivn encounter procedureFormerly [facility] GroupMer[facility] Work Phone: Start: 86-50-9553Ftgukxk encounter statusSelect Medical Special[facility], Inctart: 58-70-8938Roz-patient / Non-visitFormerly [facility]Val[facility] Work Phone: Start: 06-23-2024 End: 08-01-5352nkwcycdhktBbhxnzrxsUniversity Hospitals Geaug[facility] Work Phone: Start: 06-23-2024 End: 07-89-7886Hkucsdh encounter procedureFormerly [facility] GroupMercy Health Work Phone: Start: 06-13-2024 End: 71-98-0964xzhysgbaykMcmrgajixUniversity Hospitals Geauga Medical Center Work Phone: Start: 06-13-2024 End: 11-39-0320Huyjftn encounter procedureFormerly [facility]MA[facility] Work Phone: Start: 06-05-2024 End: 70-55-3829Jdsxwg flowsheetCorey Juan DO Work Phone: [facility] BCP OBStart: 06-05-2024 End: 16-24-1992Azohag flowsheetCorey Juan DO Work Phone: [facility]CP OBStart: 06-05-2024 End: 06-99-9567Eckklyqqn Result EncounterCorey Juan DO Work Phone: noms External Department UnsolicitedStart: 06-05-2024 End: 28-88-1180Ulpldcu encounter procedureCorey Juan DO Work Phone: NOAN HealthcareStart: 06-05-2024 End: 70-86-0500Oxssjjmh preventive med est patient 40-64yrsCorey Juan DO Work Phone: noms BCP OBComment on above:Well woman exam with routine gynecological exam; Breast cancer screening by mammogram; Postmenopausal state; Acute vaginitis; Anorgasmia of femaleStart: 84-44-9569Pal-patient / Non-visitFormerly [facility] Physician [facility] Work Phone: Start: 06-05-2024 End: 86-65-4101fntuvdgccsXCIEG FAZIONot AvailableStart: 05-21-2024 End: 39-38-8708mlrlvtkusrDVI RAMEYNot AvailableStart: 05-05-2024 End: 08-81-0583gjsiaaxuskXsvyfgcpjUniversity Hospitals Geauga [facility] Center Work Phone: Start: 05-05-2024 End: 11-29-0974Ikhpgns encounter procedureFormerly [facility] Physician [facility] Work Phone: Start: 46-63-2060Mbb-patient / Non-visitFormerly [facility] Physician [facility] Work Phone: Start: 75-53-5204Tbh-patient / Non-visitFormerly [facility] Physician [facility] Work Phone: Start: 02-01-2024 End: 54-36-0546lnkgfpjsjtZxhchmsqfUniversity Hospitals Geaug[facility] Center Work Phone: Start: 02-01-2024 End: 98-98-2174Boqkgyh encounter procedureFormerly [facility] Physician [facility] Work Phone: Start: 59-07-6755Dei-patient / Non-visitFormerly [facility] Physician [facility] Work Phone: Start: 11-13-2023 End: 42-23-8162uvodbsripaPrguvimi Ball Other [employer] Other Start: 24-37-2847Fwellfvlw encounterBevandana DasFPCheng Das Medical ClinicStart: 08-21-2023 End: 32-17-0351lmrhgyabcfYwwsosae Ball Other [employer] Other Start: 67-22-1766Zfzsvqe evaluation of patient and reportBenjamin BallFPG [facility] ClinicStart: 07-11-2023 End: 34-07-1715vytukykxziFzejgpeq Ball Other [employer] Other Start: 40-59-4760Ujffqyzwl encounterBenjamin BallFPG [facility] ClinicStart: 05-28-2023 End: 98-14-2807jobmzdtmszJavqjsqq Ball Other [employer] Other Start: 37-37-2987Rmclnh outpatient visit 15 minutes Grady BallFPG [facility] ClinicStart: 05-02-2023 End: 95-63-6320hvmyjpsxdvBbsgpicz Ball Other [employer] Other Start: 07-06-6063Eotihsn evaluation of patient and reportBenjamin BallFPG [facility] ClinicStart: 02-19-2023 End: 50-61-9881wuvdmddxxfTrrmjvdw Ball Other [employer] Other Start: 57-74-0132Fzbuok outpatient visit 15 minutes Grady BallFPG [facility] ClinicStart: 02-07-2023 End: 05-63-4753iqkewlwkfcHG GRADY BALLFacility:P5Bfyvz: 01-23-2023 End: 57-51-5371jnanbdzsqzQrutzors Ball Other [employer] Other Start: 63-27-1208Fwernuggl encounterBenjamin BallFPG [facility] ClinicStart: 12-20-2022 End: 20-24-0047rlkcnofdtvYqunkppw Ball Other [employer] Other Start: 21-21-6826Skfpzuq evaluation of patient and reportBenjamin BallDoctors Hospital ClinicStart: 12-05-2022 End: 42-71-8887ttybruvfdhGK GRADY PIPPAFacility:E4Osaqx: 11-30-2022 End: 30-12-8372dpdopqzkbjOC ARMANDO JUAN .Facility:B8Mooqm: 41-48-5307uvuognioal DR GAINES PIPPAFacility:Q4Pviut: 11-20-2022 End: 67-88-8146jyqechccjyKpoosb Dymond Other [employer] Other Start: 50-20-7090Qgmbll outpatient visit 15 minutes Clare JustinBANNER [facility] Care ClydeStart: 11-16-2022(Televisit) TelevisitGela AngelDoctors Hospital ClinicStart: 11-16-2022 End: 11-04-0940rpgnrjvvvjKmtlaq Braun Other [employer] Other Start: 10-25-2022 End: 98-35-3173mcxecvsjgzOQ ARMANDO JUAN .Facility:W1Axeav: 10-11-2022 End: 85-18-0975qiznnjjcguEU ARMANDO JUAN .Facility:D8Lruxn: 10-11-2022 End: 50-19-6930qufkaaojtjCO GRADY PIPPAFacility:Y9Xzkqt: 44-78-2528Zezgevrle for general adult medical examination without abnormal findingsDR GRADY DAS [facility] Hospitaltart: 09-25-2022 End: 55-00-6379qyykgavifpJR GRADY PIPPAFacility:T2Frjdl: 09-25-2022 End: 53-12-8039Ruquihuog for general adult medical examination without abnormal findingsDR GRADY PIPPAFacility:Q7Opvne: 71-47-1210Wjzwm health examination Grady Das Other [employer] Other Start: 47-59-8433Dklcdpbhqpydk examination normal Grady Das Other [employer] Other Start: 77-96-2691Zotfzb outpatient visit 15 minutes Grady Das Work Phone: [phone]-JnqpgPhillips [facility] Institute 250 DO Work Phone: Start: 15-37-0724shikirvsseEi. Joao Concepcionformerly [facility] Facility:[id number]: 07-15-2022 End: 73-60-0660pbijcsrvtuAQZORS RODRIGUEZ .Facility:Q5Habaz: 03-02-2022 End: 91-25-8282Nsbnxmi encounter procedureArtmargaret [facility] Start: 02-21-2022 End: 21-53-4886Wrwcoxd encounter procedureJESAGE HAZEL [facility] Start: 01-01-2022 End: 16-50-8514zjbxxakivjWhxrvr Dymond Other [employer] Other Start: 18-09-2092Cqlzhe outpatient visit 15 minutes Clare Berg [facility] ClydeStart: 10-62-0239Tbbolx outpatient visit 25 minutesBevandana Toney Pippa Work Phone: [phone]-QemgwPhillips Eye Institute 250 DO Work Phone: Start: 80-45-7351ouxvyeczkpQdNubia Trimbleyeison Concepcionyoselyn Facility:[id number]: 08-03-2021(URG) Urgent Care VisitPamela MargothFPG [facility] Procedures DateProcedureProcedure DetailPerforming ClinicianStart: 01-12-2849Gxrui culture Grady Das DO Work Phone: Start: 44-61-1643Yfwuxcdvckav partial nephrectomyKatstephen rBonson Start: 59-58-4910JELSQ METABOLIC PANEL W/ REFLEX TO MG FOR LOW KDaniel C Hurst MAILROOM COORDINATOR - CLEANING ATTENDANT Work Phone: Start: 75-23-1274Pjimd count complete auto&auto difrntl wbcDaniel C Sofía MAILROOM COORDINATOR - CLEANING ATTENDANT Work Phone: Start: 12-02-2024 End: 97-53-1840Bbjlbfarghd surg cholecystectomyGlen Arreola MD Work Phone: Start: 43-91-1976Xog abdomen w/o & w/contrast material Glen Arreola MD Work Phone: Start: 60-10-5337Eyjee metabolic panel calcium total Corinna M Danuta IT SOFTWARE ENGINEER Work Phone: Start: 49-81-1208Jwvxphu function panelChristine M Danuta IT SOFTWARE ENGINEER Work Phone: Start: 42-93-7375Glsza metabolic panel calcium total Cindy QUINTANA Work Phone: Start: 35-13-3603IBY,APTIMA HPV,AGE GDLNCorey Juan DO Work Phone: Start: 31-66-7106JebeobcfcitJuwwh Juan DO Work Phone: Start: 64-10-1279Kixurikqbry observation [Identifier] in Cervix by Cyto stainCorey [...] Work Phone: Plan of Treatment DateCare ActivityDetailAuthorStart: 06-04-6962Raixezcaz for malignant neoplasm of colonBon [facility]Start: 28-17-0114Eeqpohdzz for malignant neoplasm of cervixNOMS HealthcareStart: 01-58-4220BRoR/Tdap/Td vaccine (2 - Td or Tdap)DTaP/Tdap/Td vaccine (2 - Td or Tdap)[facility] CenterStart: 04-76-4166Gwfin cultureSelect Medical Specialty [facility], Inctart: 06-08-2025 Bacteria identified in Urine by CultureUrine [facility] Hospitaltart: 67-73-5250Daoajjceg for malignant neoplasm of breastBreast cancer screenBon [facility] WestStart: 12-66-9520Gcrukicsy for malignant neoplasm of colonNOMS HealthcareStart: 98-44-2986DMJQG-19 Vaccine ( season) COVID-19 Vaccine ()[facility] CenterStart: 06-15-2024 Influenza vaccinationInfluenza Vaccine (#1)[facility] HealthcareStart: 06-05-2024 End: 64-86-0445TAU Skeletal system Views for bone densityDEXA bone density Imaging Routine Postmenopausal state Expected: 06/05/2024 (Approximate), Expires:06/05/2025NOIA HealthcareComment on above:Expected: 06/05/2024 (Approximate), Expires: 06/05/2025Start: 06-05-2024 End: 15-53-3408BV Breast - bilateral ScreeningBilateral screening mammogram Imaging Routine Breast cancer screening by mammogram Expected: 06/05/2024 (Approximate), Expires: 08/05/2025[facility] Work Phone: comment on above:Expected: 06/05/2024 (Approximate), Expires: 08/05/2025Start: 06-05-2024 End: 21-51-6225Vdmifte encounter ouelrahmy39/22/2024 11:50 AM EDT Office Visit [facility] [address] [place] [phone] JuanArmando salas, DO [address] [place] [address] [facility]rivedSETON [facility] OBComment on above:ArrivedStart: 69-23-4987Mxsegtont vaccinationFlu vaccine (#1)[facility] CenterStart: 31-32-2757Thlcnndaq for malignant neoplasm of breastMammogramCox North Start: 99-14-1826OOF, Provider: Joao Ramírez, Status: Pen, Time: 2:00 PM FUV, Provider: Joao Ramírez, Status: Pen, Time: 2:00 PMMPBuffalo [facility] 250 DO Work Phone: Start: 08-97-7810HGZ, Provider: Joao Ramírez, Status: Pen, Time: 1:40 PMFUV, Provider: Joao Ramírez, Status: Pen, Time: 1:40 PMMPBuffalo Hospital 250 DO Work Phone: Start: 16-19-6003Gntoubfzitch 50+ years Vaccine (1 of 1 - PCV)Pneumococcal 50+ years Vaccine (1 of 1 - PCV)[facility] Start: 06-10-4521Hhsbnfit vaccine (1 of 2)Shingles vaccine (1 of 2)[facility] CenterStart: 78-03-8949Peudupaxq for malignant neoplasm of colonBon [facility] WestStart: 27-96-3535Ecscs panelLipidsSentara Rmh Medical Center Start: 20-98-6087Yssqetmxd for malignant neoplasm of cervixBon [facility] WestStart: 69-95-4641Zvaohmqrc for malignant neoplasm of cervixPap smearBon [facility] WestStart: 55-21-5066Utrtlxtuq B vaccine (1 of 3 - 19+ 3-dose series)Hepatitis B vaccine (1 of 3 - 19+ 3-dose series)[facility] Start: 64-84-1076Vwtqzcbyl C screeningHepatitis C [facility] Start: 18-01-5805VGY screeningHIV [facility] HospitalStart: 77-21-0253Kgxgjqzykp ScreenDepression [facility] CenterStart: 55-79-1871Yzmkcvixm for malignant neoplasm of colonBL[facility] MOUNTAIN [facility] HealthcareOxygen therapy [Minimum Data Set]Initiate Oxygen Therapy Protocol Respiratory Care Routine As Needed until discontinued starting 11/30/2024[facility] on above:As Needed until discontinued starting 11/30/2024Pathology studySurgical Pathology Lab Routine Gallstones Release Upon Ordering for 1 Occurrences starting 12/02/2024[facility] on above:Release Upon Ordering for 1 Occurrences starting 12/02/2024 End: 29-34-6306TZNEKJJM PATHOLOGY REPORTSURGICAL PATHOLOGY REPORT Lab Routine Once for 1 Occurrences starting 12/02/2024 until 12/02/2024[facility] on above:Once for 1 Occurrences starting 12/02/2024 until 12/02/2024THIN PREP TIS PAP AND HR HPV DNATHIN PREP TIS PAP AND HR HPV DNA Pathology and Cytology Routine Well woman exam with routine gynecological exam Ordered: 06/05/2024[facility] on above:Ordered: 06/05/2024[facility] Immunizations Immunization DateImmunizationNotesCare KtipqzedTaxnivax95-93-9181Mfgdpk-YfxMEfft COVID-19 Vacc 30 MCG/0.3ML Intramuscular SuspensionBenjamin E Ball Work Phone: [phone]-CxxicMayo Clinic Health System 250 DO Work Phone: [phone]) [phone]-CaxFXhqh COVID-19 Vacc 30 MCG/0.3ML Intramuscular SuspensionBenjamin E Ball Work Phone: mpBuffalo [facility] 250 DO Work Phone: [phone]) [phone], intradermal, quadrivalent, preservative free, injectableBenjamin E Ball Work Phone: [phone]-GhvggJeffrey [place] [address] DO Work Phone: [phone]) [phone] toxoid, reduced diphtheria toxoid, and acellular pertussis vaccine, adsorbedBenjamin E Ball Work Phone: mpJeffrey [place] [address] DO Work Phone: [phone]) [phone] virus vaccine, unspecified formulationCorey Juan DO Work Phone: [facility] Gywmaogmae66-37-7485rvxja gzjnselqr-U3N2-87, preservative-free, injectableBenjamin E Ball Work Phone: [phone]-BntxcJeffrey Ville [address] DO Work Phone: Payers DatePayer CategoryPayerPolicy [id number] Health Insurance [id number] [id number] Children's Psychiatric [id number] 2..1.925389.19 [id number] 2..1.947337.3.579.2.35975-26-2423Raztcfe [id number] 2..1.927108.3.57[id number] 2..1.505801.3.57[id number] 2.0.1.066839.3.57[id number] 2.840.1.761150.3.579.2.33481-93-9369Vocayua6378282 2.840.1.555215.3.579.2.85504-71-2865Qulspyc4848176 2.16.840.1.649196.3.579.2.53533-98-6496Mqppqwv9372358 2.16.840.1.922043.3.579.2.00238-52-9604Iujssxo5933584 2.16.840.1.840244.3.579.2.25376-30-1215Orcwekv6767332 2.16.840.1.840856.3.579.2.35350-54-5809Idgsxop7381179 2.16.840.1.925872.3.579.2.43669-14-5005Obdunkp3932029 2.840.1.792008.3.579.2.464769-17-8395Dtemdse7891098 2.840.1.767796.3.579.2.778227-99-5692Dvcrdss91045992 2..840.1.498300.3.579.2.26349-09-1168Prvsmdf18657453 2.840.1.103408.3.579.2.33511-57-4832Ccqpyds04317747 2.840.1.075248.3.579.2.62812-43-6442Yisfouk92447669 2..840.1.851347.3.57[id number] 2..840.1.199630.3.57[id number] 2..840.1.254431.3.57[id number] 2.840.1.797582.3.57[id number] 2.16.840.1.517165.3.579.2.727 [id number] 2.16.840.1.527656.19 69-98-4134Nfhz-[id number] 2.1[id number] 2.16.840.1.915788.3.579.2.531 Social History DateTypeDetailFacilityStart: 11-30-2024 End: 23-31-5900Lk alcohol useNo alcohol useNomissouri rehabilitation center [employer] Other Start: 02-21-2022 End: 21-84-5327Kzdslko smoking statusNever smoked tobacco (finding)[facility] [place] Tobacco smoking statusNeverExecutive [facility] Start: 11-30-2024 End: 19-71-4102Skq Assigned At [facility] [employer] Other Start: 69-55-7115Kjv Assigned At [facility] smoking status NHISTobacco smoking consumption unknownNOIA HealthcareStart: 58-79-1332Reo assigned at birthNot on fileBLUE MOUNTAIN HOSPITAL, INC. HealthcareStart: 01-26-2010 End: 79-72-7791CjfAbzfdg (finding)[facility], Inctart: 65-28-2863Nrawtxz use and exposureSmokeless tobacco non-userBon EventRegistStart: 81-89-9938Ixlscdvov beverage intakeEx-drinker (finding)Bon EventRegistHas the TradeHero, gas, oil, or water company threatened to shut off services in your home in past 12MoNoBon EventRegist(I/We) worried whether (my/our) food would run out before (I/we) got money to buy more.Never trueBon EventRegistSexual OrientationExec[facility] Ilda Start: 89-97-2015RwnRfdr (finding)[facility] Medical Equipment Procedure CodeEquipment CodeEquipment Original TextEquipment IdentifierDatesClip Int L Polymer Lexx Lig Hem O Lexx (6ea/Pk) - [id number], [id number] FDAStart: 12-02-2024 Clinical Notes 08-03-2021 to 06-18-2025 Note Date & NazxYfiuNhlblqvq66-12-7274 Hospital Discharge instructions Patient Education 06/18/2025 09:24:48 [...] may need more sleep. General instructions Take irdd-wkj-kgdqchn and prescription medicines only as told by your health care provider. Consider joining a support group. This can help you cope with the stress of having kidney cancer. Work with your health care provider to manage any side effects of treatment. Keep all follow-up visits. Your health care provider will want to make sure your treatment is working. Where to find more information [place] [employer]: cancer.org National Cancer [place] (NCI): cancer.gov Contact a health care provider [...] provider. Document Revised: 03/13/2023 Document Reviewed: 03/13/2023 [employer] Patient Education 2023 Bid Nerd. Follow Up Care 06/03/2025 09:28:49 With:Audie MADERA, BELKIS Bain, URO Address: [address], [place] [phone] When: Unknown Comments:3 mos w/ CT Abd w/wo con, CXR, CMP [facility] 09-04-2025 NotePatient Education Oncology Kidney Cancer Kidney [...] need more sleep. General instructions ??? Take cqrz-and-fjlfxfz and prescription medicines only as told by [...] working. Where to find more information ??? [place] [employer]: cancer.org ??? National Cancer [place] (NCI): cancer.gov Contact a health care provider [...] short of breath. ?? (more content not included)...[facility]08-21-2025 Note Progress Note-Physician Patient: JENNIFER ZAMORA Age: [...] Unspecified urethral stricture, female / SNOMED CT 514377341 / Confirmed Renal mass / SNOMED CT 473088459 / Confirmed Recurrent UTI / SNOMED CT 463119435 / Confirmed Hypertension / SNOMED CT 6590438283 / Confirmed Histories Procedure history: Appendectomy (931378695). Hysterectomy (575429455). Tubal ligation (268908802). Cholecystectomy; (92364). Social History Social & Psychosocial Habits Tobacco 04/27/2025 Tobacco Use: Never (less than 100 in l Smokeless tobacco use: Never . Physical Examination Airway: Mallampati classification: II (soft palate, fauces, uvula visible). Respiratory: adequate air exchange. Cardiovascular: Regular rhythm. Plan [place] Society of Anesthesiologists (ASA) physical status classification: Class II. Anesthetic Preoperative Plan: Anesthesia General, and Patient educated on benefits, alternatives and inherent risk of anesthesia including, but not all inclusive, Allergic reactions, dental damage, nerve damage and cardio-pulmonary complications and wishes to proceed with anesthetic plan..[facility] CenterComment on above:Result Comment: Electronically Signed By: Fabián Campbell Jr, DO\.br\Date and Time Signed: 06/04/25 12:14 [id number] NoteProgress Note-Physician Patient: JENNIFER ZAMORA Age: 54 [...] Discharge when meets criteria ( To home ).[facility] CenterComment on above:Result Comment: Electronically Signed By: Fabián [...] these instructions at home: Medicines ??? Take objz-qog-qmtcmvi and prescription medicines only as told by your health care provider. ??? Avoid using NSAIDs regularly over a long period of time. These include aspirin and ibuprofen. Doing so may damage your remaining kidney. -Tylenol 650-1000 mg every 6 hours as needed for pain. Hammon for severe uncontrolled pain. These have 325 [...] keep your urine pale yellow. ? Take oswv-bat-ghceoxd or prescription medicines - Colace/Senna to prevent [...] and water are not available, use hand safety attendant. ? Change your dressing as told by [...] and water are not available, use hand safety attendant. ??? Empty the drainage bag every 2???4 [...] visits. This is important. (more content not included)...[facility]08-20-2025 Note Discharge Summary Patient: JENNIFER ZAMORA Age: [...] % HI Lymph Auto 11.8 % LOW Fergus Auto 6.9 % Eos Auto 0.0 % Basophil Auto 0.1 % Neutro Absolute 7.4 E9/L Lymph Absolute 1.1 E9/L Fergus Absolute 0.6 E9/L Eos Absolute 0.0 E9/L [...] care of family member. Prescriptions: called to pharmacy.[facility] CenterComment on above: Result Comment: Electronically Signed By: Audie MADERA, Rosmery Mcaky\.br\Date and Time Signed: 06/03/25 12:[id number] NotePatient Education - Text Nephrology Minimally Invasive [...] these instructions at home: Medicines ??? Take ndxj-zdj-xasxwli and prescription medicines only as told by your health care provider. ??? Avoid using NSAIDs regularly over a long period of time. These include aspirin and ibuprofen. Doing so may damage your remaining kidney. -Tylenol 650-1000 mg every 6 hours as needed for pain. Hammon for severe uncontrolled pain. These have 325 [...] keep your urine pale yellow. ? Take eflj-gkn-buldayq or prescription medicines - Colace/Senna ? Eat [...] and water are not available, use hand safety attendant. ? Change your dressing as told by [...] and water are not available, use hand safety attendant. ??? Empty the drainage bag every 2???4 [...] your pain medicine. ?? (more content not included)...[facility]08-19-2025 Note History and Physical Patient: JENNIFER ZAMORA [...] mcg oral capsule: cap(s), Oral, Refill(s) 0 [place]-3 Fish Oil 1000 mg oral capsule: mg [...] list: All Problems Hypertension / SNOMED CT 1454801610 / Confirmed Recurrent UTI / SNOMED CT 195502460 / Confirmed Renal mass / SNOMED CT 159363259 / Confirmed Unspecified urethral stricture, female / SNOMED CT 218605283 / Confirmed Histories Past Medical History: No active or resolved past medical history items have been selected or recorded. Family History: Hypertension Mother Stroke Mother Diabetes clinic Mother High cholesterol Father Procedure history: Appendectomy (368651722). Hysterectomy (838417190). Tubal ligation (582532423). Cholecystectomy; (93226). Social History Social & Psychosocial Habits Tobacco [...] per clinic note, risks/benefits previously discussed and documentedLakehealth Tripoint Medical CenterComment on above:Result Comment: Electronically Signed By: Audie MADERA, Rosmery Shea.alan\Date and Time Signed: 06/02/25 08:38MKQ90-72-7580 Evaluation note* Diagnosis Onset Date Resolution Status Admit Date Urinary frequency noneactiveJuly 2024 2:40pmAcute non-recurrent maxillary sinusitis noneactiveJuly 2024 2:40pmH/O partial ahxwulnuifs5417ofdlzFilzwd 2024 8:28amHypertensionacuteAugust 2024 8:28amRenal mass, rightacuteAugust 2024 8:28amS/P cholecystectomynoneactiveAugust 2024 8:28am [facility] Work Phone: 1(251) 294-192007-22-2025 Evaluation note* Diagnosis Onset Date Resolution Status Admit Date Urinary frequency noneactiveJuly 2024 2:40pmAcute non-recurrent maxillary sinusitis noneactiveJuly 2024 2:40pmConstipationacuteAugust 2024 8:28amDysuria acuteAugust 2024 8:28amH/O partial wcssvuloqkc4370warwoAagkey 2024 8:28amHypertensionacuteAugust 2024 8:28amMetabolic dysfunction-associated steatotic liver disease (MASLD)acuteAugust 2024 8:28amPrimary insomnia acuteAugust 2024 8:28amRenal mass, rightacuteAugust 2024 8:28amS/P cholecystectomynoneactiveAugust 2024 8:28am [facility] Work Phone: 1(879) 231-697207-14-2025 Hospital Discharge instructions Patient Education 04/27/2025 13:29:04 [...] provider gives to you. In general: Take owgc-ika-gdnshnt and prescription medicines only as told by [...] provider. Document Revised: 03/28/2021 Document Reviewed: 03/28/2021 [employer] Patient Education 2023 Bid Nerd. Follow Up Care 04/24/2025 09:45:59 With:Audie MADERA, BELKIS Bain, URO Address: When: Unknown [facility] 07-14-2025 NoteUrology Office/Clinic Note Chief Complaint CLEANING ATTENDANT- referral- disorders of kidneys and ureter HPI Staff 54 yr old female here as CLEANING ATTENDANT referral for disorders of kidneys ans ureter [...] With When Contact Informatio (more content not included)...[facility] CenterComment on above:Result Comment: Electronically Signed By: Rosmery Bronson MD\.br\Date and Time Signed: 04/27/25 14:16EDT\.br\Electronically Co-Signed By: Erika Flores\.br\Date and Time Co-Signed: 04/27/25 13:51 EDT\.br\Electronically Co-Signed By: Erika Flores\.br\Date and Time Co- Signed: 04/27/25 13:52 [id number] NotePatient Education Urology Renal Mass A renal [...] gives to you. In general: ??? Take citn-syc-iwhmzcb and prescription medicines only as told by [...] provider. Document Revised: 03/28/2021 Document Reviewed: 03/28/2021 [employer] Patient Education ? 2023 Bid Nerd.[facility] 12-03-2024 History of Present illness Narrative* Aria Miles RN - 12/03/2024 3:05 PM EST This communications writer went over AVS answered all questions [...] from the original note were not included. [facility] Office: [phone] Matt Sawyer DO, Jason Riggins DO, Krish [...] PA-C, Zara Hunter CNP, Hardeep Manzanares CNP, Kayla Alvarez, CORE DIPPER, Magui Toro, CORE DIPPER, Shasha Watson, CORE DIPPER,Sanjana Decker, ELECTRICIANS TOP HELPER, Chiquita Rebolledo, CORE DIPPER, Joslyn Tabor, CORE DIPPER, Kayce Virk, CORE DIPPER [facility] IN-PATIENT SERVICE [facility] Progress Note 12/03/2024 10:08 AM Name: Jennifer Zamora Acct: [id number] Room: IP Day: 3 Admit Date: 11/30/2024 [...] History: 11/30 - Pt is transferred from [facility] for Biliary ductal stone and renal mass [...] , PHART , PH , POCPCO2 , NWD5YKK , PCO2 , POCPO2 , PO2ART , PO2 , POCHCO3 , FAI9QJF , HCO3 , NBEA , PBEA , BEART , BE , THGBART , THB , OCO1UYC , WGHZ6OII , L3GMOXZB , O2SAT , FIO2 No results found [...] Q8h for treatment of Intra-abdominal Infection. Per [facility] Extended Infusion Beta-Lactam Policy, piperacillin/tazobactam will be [...] from the original note were not included. [facility] Office: [phone] Matt Sawyer DO, Jason Riggins DO, Krish [...] Rome, JOSEP, Christy Slater CNP, Jagruti Argueta, CORE DIPPER, Cindy Kapadia PA-C, Zara Hunter, CORE DIPPER, Hardeep Manzanares, CORE DIPPER, Kayla Alvarez, CORE DIPPER, Magui Toro, CORE DIPPER, Shasha Watson, CORE DIPPER,Sanjana Decker, ELECTRICIANS TOP HELPER, Chiquita Rebolledo, CORE DIPPER, Joslyn Tabor, CORE DIPPER, Kayce Virk, CORE DIPPER [facility] IN-PATIENT SERVICE [facility] Progress Note 12/02/2024 10:57 AM Name: Jennifer Zamora Acct: [id number] Room: IP Day: 2 Admit Date: 11/30/2024 9:13 PM PCP: Grady Das, Code Status: Full Code Subjective: C/C: Abdominal discomfort Interval History Status: improved. Pain is better controlled. GI on board and plan for MRCP. General surgery on board and tentatively plan for OR tomorrow. Will need outpatient follow-up for surveillance of renal mass. Brief History: 11/30 - Pt is transferred from [facility] for Biliary ductal stone and renal mass [...] , PHART , PH , POCPCO2 , RJO1QWD , PCO2 , POCPO2 , PO2ART , PO2 , POCHCO3 , HDM0KMY , HCO3 , NBEA , PBEA , BEART , BE , THGBART , THB , IZO2OXY , IQQS2ZAI , T6WJKDKC , O2SAT , FIO2 No results found [...] Patient: Jennifer Zamora : 1970 Date: 12/02/2024 Bale Stacker: Deon Dillard MD Subjective: Patient sleeping comfortably [...] said this has never happened before. The hydroelectric systems technician saidshe won't be able to try again tonight and will call tomorrow morning to see if patient is willing.Patient says she's willing tomorrow if she can have something first. Tello Gore notified and Ativan ordered for prior to MRI/MRCP * Luigi Gore APRN - ASHLEIGH - 12/01/2024 2:05 PM EST Images from the original note were not included. [facility] Office: [phone] Matt Sawyer DO, Jason Riggins DO, Krish Ferreira DO, Holger Argueta DO, Gato Figueredo MD, Alison Garcia MD, Flavia Meza MD, Melissa Perez MD, Jori Cornejo MD, Shea Toro MD, Naseem Washington MD, Edmond Garber DO, Gucci Pope MD, Michael Fernando MD, Destin Sawyer DO, Zehra Oniell MD, Elpidio Garsia DO, Jeanette Bloom MD, Malissa Segura MD, Marleny Edmond MD, Joel Bonilla MD, Shekhar uRiz MD, Tania Cuevas MD, Tamia Tam MD, Karla Vivas MD, Pratik Spear MD, Claudio Mcnally MD, Luigi Richter DO, Asher Mathis MD, Edmond Almanzar MD, Evan Almanzar MD, Shanae Brady, JOSEP, Krissy Batres, CORE DIPPER, Luigi Gore, CORE DIPPER, Twyla Hardy, DNP, Keturah Del Cid, CORE DIPPER, Luciana Rome, CORE DIPPER, Christy Slater, CORE DIPPER, Jagruti Argueta, CORE DIPPER, MARIANO Tamez-C, Zara Hunter, CORE DIPPER, Hardeep Manzanares, CORE DIPPER, Kayla Alvarez, CORE DIPPER, Magui Toro, CORE DIPPER, Shasha Watson, CORE DIPPER,Sanjana Decker, ELECTRICIANS TOP HELPER, Chiquita Rebolledo CORE DIPPER, Joslyn Tabor CORE DIPPER, Kayce Virk, CORE DIPPER [facility] IN-PATIENT SERVICE [facility] Progress Note 12/01/2024 2:31 PM Name: Jennifer Zamora Acct: [id number] Room: Day: 1 Admit Date: 11/30/2024 9:13 PM PCP: Grady Das DO Code Status: Full Code Subjective: C/C: Abdominal discomfort Interval History Status: improved. Pain is better controlled. GI on board and plan for MRCP. General surgery on board and tentatively plan for OR tomorrow. Will need outpatient follow-up for surveillance of renal mass. Brief History: 11/30 - Pt is transferred from [facility] for Biliary ductal stone and renal mass [...] , PHART , PH , POCPCO2 , AIY9UUJ , PCO2 , POCPO2 , PO2ART , PO2 , POCHCO3 , KUW0SUB , HCO3 , NBEA , PBEA , BEART , BE , THGBART , THB , OFG6ZWV , BTMX5XXA , M6URPORY , O2SAT , FIO2 No results found [...] PM EST Pt admitted [facility] from [facility] Oriented to room and call light/tv controls. [...] Care Everywhere were reviewed documented in this encounterSentara [facility]mh [facility] Center02-19-2025 [facility] Discharge instructions* Discharge Instr - ANTONY* Aria Miles RN - 12/03/2024 12:32 PM EST * Attachments The following attachments cannot be sent through Care Everywhere. * Cholecystectomy: General Info (Vietnamese) * Cholecystectomy: Post-op (Vietnamese) * Pancreatitis: Acute: General Info (Vietnamese) * Surgical Site Infections: Prevention: General Info (Vietnamese) * Cyclobenzaprine (Vietnamese) * methylprednisolone (oral) (Vietnamese) documented in this encounterSentara Rmh Medical Center02-19-2025 [facility] course Narrative* Luigi Gore APRN - NP - 12/03/2024 10:19 AM EST Images from the original note were not included. [facility] Office: [phone] Matt Sawyer DO, Jason Riggins DO, Krish [...] Almanzar MD, Evan Almanzar MD, Shanae Brady, CORE DIPPER, Krissy Batres, CORE DIPPER, Luigi Gore, CORE DIPPER, Twyla Hardy, ARSH, Keturah Del Cid, CORE DIPPER, Luciana Rome, CORE DIPPER, Christy Slater, CORE DIPPER, Jagruti Argueta, CORE DIPPER, MARIANO Tamez-C, Zara Hunter, CORE DIPPER, Hardeep Manzanares, CORE DIPPER, Kayla Alvarez, CORE DIPPER, Magui Toro, CORE DIPPER, Shasha Watson, CORE DIPPER,Sanjana Decker, ELECTRICIANS TOP HELPER, Chiquita Rebolledo, CORE DIPPER, Joslyn Tabor, CORE DIPPER, Kayce Virk, CORE DIPPER [facility] IN-PATIENT SERVICE [facility] Discharge Summary Patient ID: Jennifer Zamora : 1970 ACCOUNT: [id number] Patient's PCP: Grady Das DO Admit Date: [...] file. 11/30 - Pt is transferred from [facility] for Biliary ductal stone and renal mass [...] Up: \ Grady Das DO [address] [facility] [address] Follow up in 1 [...] Your Medications These medications were sent to [facility] [address] [place] [address] - [phone] - [phone] [place] [address] cyclobenzaprine 10 MG tablet methylPREDNISolone 4 MG [...] this patient's care. documented in this encounterBon [facility] Evaluation note* Diagnosis Onset Date Resolution Status Admit Date Hypertension acuteOctuary 2024 2:52pmMajor depressionacuteOctober 21, 2024 2:52pm PalpitationsacuteOctober 21, 2024 2:52pmPrimary insomniaacuteOctober 21, 2024 2:52pmScreening for colon canceracuteOctober 21, 2024 2:52pmScreening mammogram for breast canceracuteOctober 21, 2024 2:52pmWellness examinationacuteOctober 21, 2024 2:52pmHypertensionacuteFebruary 2024 2:30pmMajor depressionacute February 2024 2:30pmPrimary insomniaacuteFebruary 2024 2:30pmRenal mass, rightacuteFebruary 2024 2:30pmS/P cholecystectomynoneactiveFebruary 2024 2:30pm [facility] Work Phone: 1(893) 368-398408-22-2024 History of Present illness Narrative* Mita Watson, TANK SETTER - 06/05/2024 11:50 AM EDT Reason for Appointment: Patient ID: Jennifer Zamora is a 53 y.o. female who presents for [facility] Visit Patient presents today for Annual [...] nursing note reviewed. Exam conducted with a instructor adjunct pharmacy technician present. Vitals: Estimated body mass index is [...] inability to climax. Will send order to [facility] for Progesterone/Testosterone cream to be compounded. [...] of: Armando Martinez DO documented in this encounterCox NorthTurrohdrpe50-96-2618 Evaluation note* Encounter Date Diagnosis Assessment Notes Treatment Notes Treatment Clinical Notes Aug, Seasonal allergies (ICD-10 - J30 .2) [employer] Other 08-14-2023 Evaluation note* Encounter Date Diagnosis Assessment Notes Treatment Notes Treatment Clinical Notes May, Acute bacterial conjunctivitis o f left eye (ICD-10 - H10.32) Use artificial tears as much as possible. Use warm washcloth to remove crusting debris from lashes May,ysfunction of left eustachian tube (ICD-10 - H69.92)Flonase and Claritin D. Valsalva to open ET [employer] Other 07-19-2023 Evaluation note* Encounter Date Diagnosis Assessment Notes Treatment Notes Treatment Clinical Notes Apr, Seasonal allergic rhinitis, unsp ecified trigger (ICD-10 - J30.2) [employer] Other 05-08-2023 Evaluation note* Encounter Date Diagnosis [...] routine February,OtherHealthy diet, exercise and keep active [employer] Other 04-26-2023 NotePROCEDURE: XR FOOT RT MIN [...] Electronically authenticated by: LAM DORSEY Date: 2023-02-07 12:23[facility]04-26-2023 NotePROCEDURE: XR ANKLE RT MIN 3 VIEWS DATE: 02/07/2023 10:24 AM CDT COMPARISONS: None CLINICAL INDICATION: Right ankle pain. FINDINGS: There is no evidence of fractures or other osseous abnormalities. The ankle mortise is intact. IMPRESSION: Right ankle radiographs show no evidence of significant abnormalities. Electronically authenticated by: LAM DORSEY Date: 2023-02-07 12:19[facility]Crqlaake38-53-1384 Evaluation note* Encounter Date Diagnosis Assessment Notes Treatment Notes Treatment Clinical Notes Dec, Seasonal allergic rhinitis, unsp ecified trigger (ICD-10 - J30.2) [employer] Other 02-06-2023 Evaluation note* Encounter Date Diagnosis [...] no improvement in 2 to 3 days. [employer] Other 02-02-2023 Evaluation note* Encounter Date Diagnosis Assessment Notes Treatment Notes Treatment Clinical Notes Nov, Acute cystitis without hematuria (ICD-10 - N30.00) Discussed that bactrim could address her sinusitis symptoms as well. Take tylenol for body aches. Pt unable to provide a UA due to her work responsibilties. [employer] Other 05-19-2022 Hospital Discharge instructions Patient Education [...] Up Care 02/21/2022 15:13:40 With:MABLE HAZEL Address: [address] [place] [address] [facility] (1) When:6 weeks Comments:Call for followup appointment. Please finish your antibiotics. Monitor the urinary pattern after the dilation today. [facility]05-09-2022 Hospital Discharge instructions Patient Education 02/20/2022 14:38:38 Urinary Tract Infection, Adult, Vfsk-fa-Gwaz Urinary Tract Infection, Adult A urinary tract [...] Follow these instructions at home: Medicines Take thij-jdk-xyljxpj and prescription medicines only as told by [...] 03/19/2009 Document Revised: 09/18/2019 Document Reviewed: 04/10/2019 [employer] Patient Education 2020 [employer]erd. Follow Up Care 01/31/2022 10:31:51 With:CHARLEE OSCAR, MABLE Toney, URL Address: [address] [place] [address] When: Unknown Comments:Will schedule Cysto [facility] [place] 03-20-2022 Evaluation note* Encounter Date Diagnosis Assessment Notes Treatment Notes Treatment Clinical Notes Dec, Dysuria (ICD-10 - R30.0) Dec,Urinary tract infection, site not specified (ICD-10 - N39.0) Drink plenty fluids, get plenty of rest. Take the Macrobid as prescribed until gone. Take the Diflucan as prescribed until gone. Continue to take the yohj-nfy-mpojpzs Azo for your symptoms. Follow-upwith your physician if no improvement in 2 to 3 days. Dec,Hematuria, unspecified (ICD-10 - R31.9) [employer] Other 10-20-2021 Evaluation note* Encounter Date Diagnosis [...] writting by CDC Care At Home document. [employer] Other Evaluation + Plan note Future Appointments Appointment Date:02/23/2022 09:45:00 AM Scheduled Provider: Location:[facility] Appointment Type:Urology CALL PAT FT Appointment Date:03/02/2022 11:00:00 AM Scheduled Provider: Location:[facility] Appointment Type:Urology FT [facility] Evaluation + Plan note Future Appointments Appointment Date:04/13/2022 03:15:00 PM Scheduled Provider:MABLE HAZEL PA-C Location:[facility] Future Appointments Appointment Date:09/24/2025 01:00:00 PM Scheduled Provider:Rosmery Bronson MD Location:[facility] Appointment Type:URO Office Visit Future Scheduled Tests Laboratory* Comprehensive Metabolic Panel 09/17/25 Radiology* CT Abdomen w/ + w/o Contrast 09/17/25 * XR Chest 2 Views 09/17/25 [facility] Evaluation noteNo InformationNortConemaugh [facility] [place] Other Evaluation noteNo assessment information available [facility] Work Phone: Evaluation note* Diagnosis Onset Date Resolution Status Acute frontal sinusitis acute [facility] Work Phone: Evaluation note* Diagnosis Onset Date Resolution Status Acute frontal sinusitis acuteHypertensionacuteMajor depressionacutePalpitationsacute [facility] Work Phone: Evaluation note* Diagnosis Well woman exam with routine gynecological exam Routine gynecological examination Breast cancer screening by mammogram Postmenopausal state Asymptomatic postmenopausal status (age-related) (natural) Acute vaginitis Unspecified vaginitis and vulvovaginitis Anorgasmia of female documented in this encounter [facility] HealthcareEvaluation note* Diagnosis Onset Date Resolution Status Admit Date Hypertension acuteJanuary 2024 2:52pmMajor depressionacuteJanuary 2024 2:52pm PalpitationsacuteJanuary 2024 2:52pmScreening mammogram for breast cancer acuteJanuary 2024 2:52pmWellness examinationacuteJanuary 2024 2:52pm [facility] Work Phone: Evaluation note* Diagnosis Acute biliary pancreatitis without infection or necrosis- Primary Gallstones Calculus of gallbladder without mention of cholecystitis or obstruction Hypertension Unspecified essential hypertension Renal mass Unspecified disorder of kidney and ureter Pancreatitis, unspecified pancreatitis type documented in this encounter [facility] Narrative - Reported* Type Description Date Medical History Hypertension Medical HistoryADHDMedical Historychronic depressionMedical Historyheart palpitationsSurgical HistoryC sectionSurgical HistoryhysterectomySurgical HistoryappendectomyHospitalization Historysee above [employer] Other History general Narrative - Reported* Type [...] vertigo, unspecified lateralitySurgical HistoryC sectionSurgical HistoryhysterectomySurgical History aqkvghbuogke8379Ggoecsnsfprvagx Historysee above [employer] Other History of Present illness Narrative* Patient [...] month or earlier if the need arise Located within [facility] 250 DO Work Phone: [...] year with plan to repeat her EKG -[facility] 250 DO Work Phone: Hospital course Narrative No data available for this section [facility] Progress note No data available for this section [facility] Reason for referral (narrative)No reason for referral information availableK[facility] Work Phone: Reason for visit Narrative* Auth/CertSpecialty Diagnoses / ProceduresReferred By ContactReferred To Contact Diagnoses Acute biliary pancreatitis without infection or necrosis Pancreatitis Krish Ferreira, [address] [address] [facility] [address] [place] [address] Referral IDStatusReasonStart DateExpiration DateVisits RequestedVisits [id number] [facility] Summary Purpose Family History No Family History [...] shot congestion,headache,(smell coming from nose?) depression medication [phone] for VisitAcute frontal sinusitis Hypertension Major depression Palpitations Chief Complaint Admit Date Wellness October 21, 2024 2: 52pm Reason for Visit Admit Date Hypertension October 21, 2024 2: 52pm Major depression October 21, 2024 2: 52pm Palpitations October 21, 2024 2: 52pm Screening mammogram for breast cancer [facility] 2024 2:52pm Wellness examination October [...] 2:52pm Screening mammogram for breast cancer [facility] 2024 2:52pm Wellness examination October [...] Documentation June 03, 2025 1: 24pm [facility] F/U/Reminded Pt June 08, 2025 8:28am [...] section and content) DATE CREATED AUTHOR 04/09/2021 [facility] DATE CREATED AUTHOR AUTHOR'S ORGANIZ ATION 07/19/2022 [facility] DATE CREATED AUTHOR AUTHOR'S ORGANIZ ATION 07/19/2022 [facility] DATE CREATED AUTHOR AUTHOR'S ORGANIZ ATION 02/16/2023 [facility] DATE CREATED AUTHOR AUTHOR'S ORGANIZ ATION 06/07/2024 [facility] DATE CREATED AUTHOR AUTHOR'S ORGANIZ ATION 12/13/2024 [facility] DATE CREATED AUTHOR AUTHOR'S ORGANIZ ATION 05/20/2025 [facility] DATE CREATED AUTHOR AUTHOR'S ORGANIZ ATION 05/21/2025 [facility] DATE CREATED AUTHOR AUTHOR'S ORGANIZ ATION 06/03/2025 [facility] DATE CREATED AUTHOR AUTHOR'S ORGANIZ ATION 06/04/2025 [facility] DATE CREATED AUTHOR AUTHOR'S ORGANIZ ATION 06/13/2025 [facility] DATE CREATED AUTHOR AUTHOR'S ORGANIZ ATION 06/19/2025 [facility] DATE CREATED AUTHOR AUTHOR'S ORGANIZ ATION 06/20/2025 [facility] REASON FOR VISIT (unrecogniz ed section and [...] MemberRelationshipSpecialtyStart DateEnd Date Grady Das DO [address] [place] [id number] PCP - GeneralInternal Medicine11/30/24 Team Status: Active [...] Member Role Status Dates KASSANDRA Kang RN CLEANING ATTENDANT-C Attending Provider Active Start: June End: June 19[facility] ProviderActiveStart: June 19, 2025 End: June 19, [...] at 0900, Apply patch to back. The nutrition aide's recommendations for the number of patches that can be applied within a 24-hour period varies from 1 to 4 times daily and the duration of application varies from 8 to 24 hours; refer to the nutrition aide's labeling for product-specific recommendations. * 0941 (Patch [...] (Given - Provider: Carin Pulido RN) Medication Order/18/[id number]/03/2024 lactated ringers infusion ()(Linked Group 2) IntraVENous, at 250 mL/hr, CONTINUOUS, Starting on Sun11/30/24 at 2130, For 12 hours * 0216 (Rate/Dose Change - Provider: Marcella Hernandez RN) * 0217 (Rate/Dose Verify - Provider: Marcella Hernandez RN) * 0219 (Stopped - Provider: Marcella Hernanedz RN) * 0219 (New Bag - Provider: Arleth Watkins RN) * 0550 (New Bag - Provider: Arelth Watkins RN) * 0948 (Stopped - Provider: [...] into rate field of order. * 1431 ([facility] Hold - Provider: [facility] - Reason: Unreviewed Transfer Orders) * 1813 ([facility] Unhold - Provider: Aria Miles RN) BUPivacaine-EPINEPHrine PF (MARCAINE-w/EPINEPHrine) 0.5% -1:[id number] injection (CANCELED) PRN, Starting on Sun12/02/24 at [...] - Provider: Aria Miles RN) * 1431 ([facility] Hold - Provider: [facility] - Reason: Unreviewed Transfer Orders) * 1813 ([facility] Unhold - Provider: Aria Miles RN) * [...] - Provider: Carin Pulido RN) * 143 ([facility] Hold - Provider: [facility] - Reason: Unreviewed Transfer Orders) * 181 ([facility] Unhold - Provider: Aria Miles RN) [...] with CrCl less than 30mL/min * 143 ([facility] Hold - Provider: [facility] - Reason: Unreviewed Transfer Orders) * 1812 ([facility] Unhold - Provider: Aria Miles RN) [...] - Provider: Carin Pulido RN) * 143 ([facility] Hold - Provider: [facility] - Reason: Unreviewed Transfer Orders) * 181 ([facility] Unhold - Provider: Aria Miles RN) ondansetron (ZOFRAN) injection 4 mg(Linked Group 3) 4 mg, IntraVENous, EVERY 6 HOURS PRN, Starting on 11/30/24 at 2114, Until Discontinued, Nausea, Vomiting, Administer if oral route cannot be used. * 1637 (Given - Provider: Marcella Hernandez RN) * 143 ([facility] Hold - Provider: [facility] - Reason: Unreviewed Transfer Orders) * 181 ([facility] Unhold - Provider: Aria Miles RN) ondansetron (ZOFRAN-ODT) disintegrating tablet 4 mg(Linked Group 3) 4 mg, Oral, EVERY 8 HOURS PRN, Starting on 11/30/24 at 2113, Until Discontinued, Nausea, Vomiting * 1637 (See Alternative - Provider: Marcella Hernandez RN) * 1431 ([facility] Hold - Provider: [facility] [employer] - Reason: Unreviewed Transfer Orders) * 181 ([facility] Unhold - Provider: Aria Miles RN) [...] with CrCl less than 30mL/min * 1431 ([facility] Hold - Provider: [facility] [employer] - Reason: Unreviewed Transfer Orders) * 181 ([facility] Unhold - Provider: Aria Miles RN) [...] with CrCl less than 30mL/min * 1431 ([facility] Hold - Provider: [facility] - Reason: Unreviewed Transfer Orders) * 1813 ([facility] Unhold - Provider: Aria Miles RN) [...] or Central Line= 20 mL/lumen * 1431 ([facility] Hold - Provider: [facility] [employer] - Reason: Unreviewed Transfer Orders) * 1813 ([facility] Unhold - Provider: Aria Miles RN) Order [...] BE BASED ON THE PRIMARY CLINICAL RECORDS. [employer] [facility]. provides no warranty or guarantee of the accuracy or completeness of information in this document.
--- OUTSIDE RECORDS SUMMARY | 2025-09-26 00:07 | XMS_ITS | Patient Health Record ---
Author Organization [facility] [place] Address [address] [place] [address] Care Team Providers Care Birth Attendant Name Role Phone Grady Arriaga DO Primary Care Provider Maylin ArreolaGlen Unavailable [phone] Allergies No Known Allergies Results Component Value Reference Range Notes Surgical Pathology ([facility]) Reviewed date:12/15/2024 12:18:34 PM Interpretation: Performing Lab: Notes/Report: Path Number: [id number] -- Diagnosis -- Gallbladder: -Cholelithiasis and chronic [...] Microscopic Description Microscopic examination performed. Processing Lab: [address] [address] Interpretation Performed at [address], [place] [address] SURGICAL PATHOLOGY CONSULTATION Patient Name: JENNIFER ZAMORA [facility] Rec: [id number] [facility] [employer] [facility] ANATOMIC PATHOLOGY [address] [place], [place] [address] MRI ABDOMEN W WO CONTRAST MRCP Reviewed date:12/15/2024 12:02:13 PM Interpretation: Performing Lab: Notes/Report: ADDENDUM: Performed at: [address] [id number] Reason For Referral No Information Medications Medication SIG (Take, Route, Frequency, Duration) Notes Start Date End Date Status Aspirin 81 ActiveLosartan Potassium-HCTZActiveMetoprolol SuccinateActiveMedrolActive Potassium ChlorideActivePantoprazole SodiumActiveQsymiaActive Social History Tobacco Use: Social History Observation Description Date Details (start date - stop date) Never Smoker NA - NA Tobacco Use/Smoking Question Answer Notes Patient is a nonsmoker Problems Problem Type SNOMED Code ICD Code Onset Dates Problem Status W/U Status Risk Notes Problem Cholelithiasis witho ut obstruction (78301290) Asymptomatic cholelithiasis (K80.20) Activeconfirmed Vital Signs Height 67 in 12/15/2024 Ejgycj334 lbs5BMI25.06 kg/m212/15/2024 Encounters Encounter Location Date Provider Diagnosis General Surgery Boris Arreola [facility] [address] [place] [address] 12/15/2024 Glen Arreola Encounter for follow-up examination after completed treatment for conditions other than malignant neoplasm Z09 [facility] [address] [place] [address] 12/02/2024 Glen Arreola Assessments Encounter Date Diagnosis (ICD Code) Assessment Notes Treatment Notes Treatment Clinical Notes Section Notes 12/15/2024 Encounter for follow -up examination after completed treatment for conditions other than malignant neoplasm (ICD-10 - Z09) Plan Of Treatment No Information Insurance Providers Payer Name Payer Address Payer Phone Subscriber Number Group Number Insured Name Patient Relationship to Insured Coverage Start Date Coverage End Date BCBS OUT OF STATE [address] [place] [address] [id number] Roque Zamora - patient is the spouse of the [id number] 2024 Medical (General) History Medical History History ICD Code Hypertension I10 ADHD F90.9 IFG (impaired fasting glucose) R73.01 Hypokalemia E87.6 Obesity E66.9 NSVT (nonsustained ventricular tachycard ia) I47.29 Gastroesophageal reflux disease K21.9 Palpitation R00.2 Hormonal disorder E34.9 Post menopausal syndrome N95.1 Eczema L30.9 GREG (generalized anxiety disorder) F41.1 Surgical History Surgery Date(Month/Year) appendectomy 2010 hysterectomy section
--- OUTSIDE RECORDS SUMMARY | 2025-09-26 00:08 | XMS_ITS | Clinical Summary ---
Author Organization [facility] Address [address], [address] [place] [address] Care Team Providers Care Quiller Machine Fixer Name Role Phone Grady Arriaga DO Primary Care Provider [phone] Allergies No known active allergies Medications MedicationSigDispense QuantityRefillsLast FilledStart DateEnd DateStatus losartan-hydroCHLOROthiazide (HYZAAR) 50-12.5 MG per tablet Take 1 tablet by mouth dailyActive metoprolol succinate (TOPROL XL) 25 MG extended release tablet Take 1 tablet by mouth dailyActive oxyCODONE-acetaminophen (PERCOCET) 5-325 MG per tablet Take 1 tablet by mouth every 8 hours as needed for Pain. Max Daily Amount: 3 tabletsActive Active Problems ProblemNoted DateDiagnosed DatePancreatitis, unspecified pancreatitis type 12/02/2024Renal mass5Acute biliary pancreatitis without infection or /16/5217Lrhzcttttqbr23/04/2023 Social History Tobacco UseTypesPacks/DayYears UsedDateSmoking Tobacco: NeverSmokeless Tobacco: Never Tobacco Cessation:Counseling Given: Not Answered Alcohol UseStandard Drinks/WeekCommentsNot Currently0 (1 standard drink = 0.6 oz pure alcohol)[facility] UtilitiesAnswerDate RecordedIn the past 12 months has the cortical.io, gas, oil, or water Jalbum threatened to shut off services in your home?No11/30/2024Hunger Vital SignAnswerDate RecordedWithin the past 12 months, you worried that your food would run out before you got the money to buymore. Never true11/30/2024Within the past 12 months, the food you bought just didn't last and you didn't have money to get more.Never true11/30/2024PRAPARE - TransportationAnswerDate RecordedIn the past 12 months, has lack of transportation kept you from medical appointments or from getting medications?No 11/30/2024In the past 12 months, has lack of transportation kept you from meetings, work, or from getting things needed for daily living?No11/30/2024 Housing Stability Vital SignAnswerDate RecordedIn the last 12 months, was there a time when you were not able to pay the mortgage or rent on time?No11/30/2024In the past 12 months, how many times have you moved where you were living?0 11/30/2024t any time in the past 12 months, were you homeless or living in a penitentiary (including now)?No11/30/2024Food InsecurityAnswerDate RecordedWithin the past 12 months, you worried that your food would run out before you got the money to buymore.Within the past 12 months, the food you bought just didn't last and you didn't have money to get more.Interpersonal Safety Domain Source: IP Abuse ScreeningAnswerDate RecordedPhysical abuseDenies 11/30/2024Verbal vonhcJetuyd71/16/2025Emotional kxtytOzossd00/16/2025Financial touwnRmvwks70/16/2025Sexual qciiySubsno97/16/2025CommentsUnknownSex and Gender InformationValueDate RecordedSex Assigned at BirthNot on fileLegal Sex Ufepjx6111/30/2024 2:46 PM ESTGender IdentityNot on fileSexual OrientationNot on file Last Filed Vital Signs Vital SignReadingTime TakenCommentsBlood Gbmsrgjm988/76012/03/2024 10:30 AM EST Dyzhv518112/03/2024 10:30 AM MKVEutbwczxgjx45.5 ??C (97.7 ??F)12/03/2024 10:30 AM ESTRespiratory Ifvr831612/03/2024 1:19 PM ESTOxygen Bfqczguukc75%12/03/2024 10:30 AM ESTInhaled Oxygen Concentration--Krlxfr71.1 kg (167 lb 12.8 oz)11/30/2024 9:15 PM MVHXnklsy478.2 cm (5' 7 )11/30/2024 9:15 PM ESTBody Mass Index26.28 11/30/2024 9:15 PM EST Plan of Treatment Health MaintenanceDue DateLast DoneCommentsDepression Cdbnij3706/25/1981HIV screen 1984Hepatitis C bhebgi1606/25/1987Hepatitis B vaccine (1 of 3 - 19+ 3-dose series)1988Pap smear1990Cervical cancer wpfgac9306/25/1999HPV (without or with Pap)1999Diabetes rymblz6206/25/20047982Nccacl75/11/2009Colonoscopy 2014FIT/FOBT: Average risk2014Sigmoidoscopy/CT colonography 2014Pneumococcal 50+ years Vaccine (1 of 1 - PCV)2019Shingles vaccine (1 of 2)2019Breast cancer rromyg75502/Flu vaccine (#1)502/04/2017, 08/24/2009COVID-19 Vaccine (3 - season) /, 1DTaP/Tdap/Td vaccine (2 - Td or Tdap)11/21/2026 11/21/2016Colorectal Cancer Phltcy2711/04/2027Fecal-DNA (Cologuard): Average risk 801/, 09/06/2021Hepatitis A vaccineAged OutNo longer eligible based on patient's age to complete this topicHib vaccineAged OutNo longer eligible based on patient's age to complete this topicMeningococcal (ACWY) vaccineAged OutNo longer eligible based on patient's age to complete this topic Meningococcal B vaccineAged OutNo longer eligible based on patient's age to complete this topicPolio vaccineAged OutNo longer eligible based on patient's age to complete this topic Medical Devices ImplantedTypeAreaManufacturerDevice IdentifierShelf Expiration DateModel / Serial / LotClip Int L Polymer Lexx Lig Hem O Lexx (6ea/Pk) - [id number] Implanted:Qty: 1 on 12/02/2024 by Glen Arreola MD at [facility] MEDICAL-[id number] / / [id number] [place] [id number] Advance Directives * Full Code (Latest Code Status on File) Date ActivatedDate InactivatedComments11/30/2024 9:14 12/03/2024 5:14 PM Care Teams Team MemberRelationshipSpecialtyStart DateEnd Date Grady Arriaga DO [address] [place] [address] PCP - GeneralInternal Medicine11/30/24
--- OUTSIDE RECORDS SUMMARY | 2025-09-26 00:08 | XMS_ITS | Patient Health Record ---
Author Organization [facility] Address [address] [place] [address] Care Team Providers Care Lead Cashier Name Role Phone AngelGela Primary Care Provider Unavailabl e Allergies No Known Allergies Reason For Referral No Information Medications Medication SIG (Take, Route, Frequency, Duration) Notes Start Date End Date Status Losartan Potassium *Please review and pick correct strength-formulation from Medispan options. If intended option is not shown, discontinue and re-order from Quick Search*Active CeleXA*Please review and pick correct strength-formulation from Medispan options. If intended option is not shown, discontinue and re-order from Quick Search*Not-TakingLOSARTANActive Social History Tobacco Use: Social History Observation Description Date Details (start date - stop date) Never Smoker NA - NA Tobacco Control (Standard) Question Answer Notes Tobacco use: Nonsmoker Problems Problem Type SNOMED Code ICD Code Onset Dates Problem Status W/U Status Risk Notes Problem Essential hypertension (77452963 ) Elevated blood pressure reading in office with diagnosis of hypertension (I10) Activeconfirmed Plan Of Treatment No Information Insurance Providers Payer Name Payer Address Payer Phone Subscriber Number Group Number Insured Name Patient Relationship to Insured Coverage Start Date Coverage End Date [facility] [address] [place] [address] [id number] Jennifer ZamoraSelf - patient is the insured Medications Administered Medication Instructions Date of Administration Dosage Notes Kenalog 40 (40mg Admin) mL Medical (General) History Medical History History ICD Code HTN DepressionSurgical History Surgery Date(Month/Year) X 2 total bladder repairappendectomyhysterectomyHospitalization History Reason Date(Month/Year) surgeries childbirth
--- OUTSIDE RECORDS SUMMARY | 2025-09-26 00:08 | XMS_ITS | Clinical Summary ---
Author Organization [facility] Address [address] [place] [address] Phone Care Team Providers Care Cad Application Support Specialist Name Role Phone Grady Arriaga DO Primary Care Provider [phone] Allergies No known active allergies Medications MedicationSigDispense QuantityRefillsLast FilledStart DateEnd DateStatus aspirin 81 mg EC tablet Take 1 tablet (81 mg) by mouth once daily.Active buPROPion SR (Wellbutrin SR) 150 mg 12 hr tablet Take 1 tablet (150 mg) by mouth once daily.07/04/2021ctive losartan-hydrochlorothiazide (Hyzaar) 50-12.5 mg tablet Take 1 tablet by mouth once daily.04/06/2021ctive metoprolol succinate XL (Toprol-XL) 25 mg 24 hr tablet Take 1 tablet (25 mg) by mouth once daily.05/24/2021ctive potassium chloride CR 10 mEq ER tablet Take 1 tablet (10 mEq) by mouth once daily.07/04/2021ctive Active Problems ProblemNoted DateDiagnosed DateAbnormal pfqvqyoxffywuatsg05/04/2023Hypertension 06/18/2023NSVT (nonsustained ventricular tachycardia)06/18/2023alpitations 06/18/2023lass 2 obesity with body mass index (BMI) of 36.0 to 36.9 in adult 06/18/2023White coat syndrome with cdhrmbecbcim46/04/2023 Immunizations ImmunizationAdministration DatesNext DueInfluenza, intradermal, quadrivalent, preservative free11/21/2016Novel cevwiyvwf-G7H0-80, preservative-free08/24/2009 Tdap vaccine, age 7 year and older (BOOSTRIX, ADACEL)11/21/2016 Family History Medical HistoryRelationNameCommentsHeart attackFatherDiabetesMotherStrokeMother RelationNameStatusCommentsFatherMother Social History Tobacco UseTypesPacks/DayYears UsedDateSmoking Tobacco: Never Assessed CommentsUnknownSex and Gender InformationValueDate RecordedSex Assigned at Not on fileLegal NthUhmymq39/26/2022 6:36 PM ESTGender IdentityNot on fileSexual OrientationNot on file Last Filed Vital Signs Vital SignReadingTime TakenCommentsBlood Yeuyukgu574/8207/18/2022 1:41 PM EDT Ugtkc163407/18/2022 1:41 PM EDTTemperature--Respiratory Rate--Oxygen Saturation-- Inhaled Oxygen Concentration--Kbptzn40.7 kg (182 lb 4 oz)07/18/2022 1:41 PM EDT Rtoxqw499.2 cm (5' 7 )07/18/2022 1:41 PM EDTBody Mass Index28.5407/18/2022 1:41 PM EDT Plan of Treatment Health MaintenanceDue DateLast DoneCommentsCT Diaolfnprhqn1969Colonoscopy 1969Colorectal Cancer Ojhohqgyj1969FIT-DNA (Cologuard)1969FIT 1969HIV Mxbljpgpv1969Lipid Panel1969 0652Vvusapkrshusy1969 Yearly Adult Otyckqnz1969Diabetes Jjyvtiowr13/11/1987Hepatitis C Screening 1987Hepatitis B Vaccines (1 of 3 - 19+ 3-dose series)1988Cervical Cancer Vhyxejgfd12/11/1990HPV/Disdfa4806/25/1990Pap Smear1990Mammogram 2009MMR Vaccines (1 of 1 - Standard series)09/21/2009Pneumococcal Vaccine (1 of 1 - PCV)2019Zoster Vaccines (1 of 2)2019Influenza Vaccine (#1) 502/04/2017, 08/24/2009COVID-19 Vaccine (3 - season)2025 01/27/2021, 1DTaP/Tdap/Td Vaccines (2 - Td or Tdap) HIB VaccinesAged OutNo longer eligible based on patient's age to complete this topicHPV VaccinesAged OutNo longer eligible based on patient's age to complete this topicHepatitis A VaccinesAged OutNo longer eligible based on patient's age to complete this topicIPV VaccinesAged OutNo longer eligible based on patient's age to complete this topicMeningococcal VaccineAged OutNo longer eligible based on patient's age to complete this topicRotavirus VaccinesAged OutNo longer eligible based on patient's age to complete this topic Insurance Care Teams Team MemberRelationshipSpecialtyStart DateEnd Date Grady Arriaga DO PCP - General04/05/21
--- OUTSIDE RECORDS SUMMARY | 2025-09-26 00:08 | XMS_ITS | Clinical Summary ---
Author Organization [facility] Address [address] [place] [id number] Care Team Providers Care Singeing Torch Operator Name Role Phone Unavailable Primary Care Provider Unavailabl e Social History Tobacco UseTypesPacks/DayYears UsedDateSmoking Tobacco: Never Assessed CommentsUnknownSex and Gender InformationValueDate RecordedSex Assigned at Not on fileLegal PimWdifkx88/02/2012 9:43 AM ESTGender IdentityNot on fileSexual OrientationNot on file Plan of Treatment Health MaintenanceDue DateLast DoneCommentsAnxiety Jodidyxwg20/11/1987Depression Sohzrooia30/11/1987HIV Anwgwjldq56/11/1987Hepatitis C Ycjxxzphd97/11/1987 DTaP,Tdap,Td Vaccine (1 - Tdap)1988Hepatitis B Vaccine (1 of 3 - 19+ 3- dose series)1988Cervical Cancer Remlhpxsz31, 11/15/2000, 11/15/2000Mammogram Ycbszsazh51/11/2009CT Uhbfzwtbcaci31/11/2014Cologuard (FIT-DNA)06/25/20147051Mhhsrpmygpu82/11/2014Colorectal Cancer Ixtiujxxc70/11/2014 Diabetes Wwpdzfudz31/11/2014Fecal Occult Blood2014Lipid Screening 06/25/20148995Ekbkrdskthakw92/11/2014Pneumococcal Vaccine: 50+ (1 of 1 - PCV) 2019Shingrix Vaccine (1 of 2)2019Covid-19 Vaccine (1 - 2024-26 season)2025Influenza Vaccine (#1)2025 Procedures Procedure NamePriorityDate/TimeAssociated DiagnosisCommentsPAP FLUID CERVICAL FZUNXMWHP58/12/2002 from Last 3 Months or Most Recently Relevant to Health Maintenance Results * PAP FLUID CERVICAL SCREENING (01/24/2002)ComponentValueRef RangeTest Method Analysis TimePerformed AtPathologist SignatureTranscriptionPhysician: Colleen Khanna ([id number]) SPECIMEN #: [id number] [facility]INIC LABTranscription *[facility] LABTranscriptionFINAL DIAGNOSIS:[facility] TranscriptionFLUID, CERVICAL, SCREENINGKET[facility] LABTranscription SATISFACTORY FOR INTERPRETATION.[facility] LABTranscriptionSLIGHT DYSPLASIA (EMIGDIO-1, Low Grade LAURA).[facility] LABTranscriptionACUTE INFLAMMATION.[facility] LABTranscriptionK[facility] Brianna Watson M.D./[facility] LABTranscription [facility] LABTranscription Report Electronically Signed Out [facility] LABTranscription *[facility] LABTranscription[facility] LABTranscriptionSPECIMEN(S) SUBMITTED:[facility] LABTranscriptionFLUID, CERVICAL, SCREENING (PAP Smear)[facility] LABTranscriptionSmears Received: Number of Thin Preps: 1CMER[facility] LABTranscription[facility] LABTranscriptionCLINICAL DATA:[facility] LABTranscription{None Entered}[facility] TranscriptionK[facility] LABTranscriptionDate of last Menstrual Period: 12/27/01[facility] LABTranscription[facility] LABTranscription GROSS DESCRIPTION:[facility] ZBQDkwjxwvtrzmyi19 CC PRESERVCYT SOLUTION [facility] LABTranscription[facility] LABTranscription[facility] LABTranscriptionPatient ID #: [id number] Financial #:[facility] TranscriptionManaged Care ID #: Date of Report: 02/02/02[facility] TranscriptionDOB:1970 (Age: 31) F Date of Procedure: 01/24/02[facility] LABTranscriptionDate of Receipt: 01/24/02[facility] TranscriptionPhysician: Colleen Khanna ([id number]) Location: [address] TranscriptionFalcadrianne/Zayra Carter (A81)[facility] LABTranscription [facility] LABSpecimen (Source)Anatomical Location / Laterality Collection Method / VolumeCollection TimeReceived Time 11:39 PM EDT Narrative Authorizing ProviderResult TypeResult StatusColleen Khanna MDCYTOLOGYFinal ResultPerforming OrganizationAddressCity/State/ZIP CodePhone Number [facility] [address] [place] [address] from Last 3 Months or Most Recently Relevant to Health Maintenance
--- OUTSIDE RECORDS SUMMARY | 2025-09-26 00:08 | XMS_ITS | Clinical Summary ---
Author Organization [facility] Address [address] [place] [address] Care Team Providers Care Hide Mill Worker Name Role Phone Unavailable Primary Care Provider Unavailabl e Social History Tobacco UseTypesPacks/DayYears UsedDateSmoking Tobacco: Never AssessedUT Safety & EnvironmentAnswerDate RecordedFear of Current or Ex-PartnerNot on file 12/06/2023Emotionally AbusedNot on file12/06/2023hysically AbusedNot on file 12/06/2023Sexually AbusedNot on file4Physically or Sexually AbusedNot on file12/06/2023CommentsUnknownSex and Gender InformationValueDate RecordedSex Assigned at BirthNot on fileLegal XoqGimiol72/29/2022 9:42 PM EDT Gender IdentityNot on fileSexual OrientationNot on file Plan of Treatment Not on file
--- OUTSIDE RECORDS SUMMARY | 2025-09-26 00:08 | XMS_ITS | Patient Health Record ---
Author Organization [facility] Address [address] [place] [address] Care Team Providers Care Ham Facer Name Role Phone LIANA DAS DO Primary Care Provider Unavaila ble Tracy Schmitzreanna Unavailable [phone] Beka Jones Unavailable [phone] Allergies No Known Allergies Reason For Referral Reason NO PRIOR AUTH REQURI ED ANTHEM....MRI lumbar scheduled 12/23/24 Diagnosis 1 Degeneration of inte rvertebral disc of lumbar region, unspecified whether pain present (M51.369) Referral Organization [facility] Referring Provider First Name Francis Referring Provider Last Name Keila forte Referring Provider Speciality Orthopedic Surgery Referred Organization [facility] Referred Address [address] [place] [phone], Procedure 1 MRI Lumbar Spine w/o Dye (77473) General Notes Deal, Sherley 12/17/19 02:21:45 PM >, Leilani Franco 12/16/2024 02:33:22 PM > wtg on note, Leilani Franco 12/18/2024 10:23:16 AM > PER ELIZABETH Ty NO PRIOR AUTH REQUIRED REF #[id number], PER [employer] PT HAS ACTIVE COVERAGE POLICY START DATE IS 11/15/2024 WITH NO END DATE. Referral Priority Routine Reason Dr. Jones L5-S1 LES Diagnosis 1 L4-L5 disc bulge (M5 1.369) Referral Organization [facility] Referring Provider First Name Davidisaacreanna Referring Provider Last Name Keila forte Referring Provider Speciality Orthopedic Surgery [facility] Address [address] [place] [phone], General Notes Chandni Mathew 12/13 01:02:49 PM >, Darleen Quintana 12/24/2024 08:54:40 AM >3.18.25 Referral Priority Routine Medications Medication SIG (Take, Route, Frequency, Duration) Notes Start Date End Date Status hydrochlorothiazide-losartan 12.5 mg-50 mg 1 tab (s) orally once a day ActivediazePAM 5 mg1 tab(s) orally 1 hour prior to test and 2nd tablet if needed 30 before test sihutg1012/16/2024Not-TakingPercocet 325 mg-5 mg 1 tab(s) orally every 8 hours As needed Activemetoprolol 25 mg1 tab(s) orally once a dayActiveLosartan Potassium HCTZ Activemetoprolol 25 mg1 tab(s)Active Social History Tobacco Use: Social History Observation Description Date Details (start date - stop date) Never Smoker NA - NA AUDIT-C (Standard) Question Answer Notes Did you have a drink containing alcohol in the p ast year? No Kovywk7AzsczmssnpwzbkWorckvrbXravawv Control (Standard) Question Answer Notes Tobacco use: Nonsmoker Problems Problem Type SNOMED Code ICD Code Onset Dates Problem Status W/U Status Risk Notes Problem Lumbar radiculopathy (898875623) Lumbar r adiculopathy (M54.16) ActiveconfirmedProblemArthropathy of lumbar facet joint (488370936)Lumbar facet arthropathy (M47.816)ActiveconfirmedProblemDegeneration of lumbar intervertebral disc (disorder) (16478716)Degeneration of intervertebral disc of lumbar region, unspecified whether pain present (M51.369)Activeconfirmed Vital Signs Height 5ft 7in in 12/23/2024 Yjcihi570 lbs12/23/2024BMI24.9012/23/2024 Encounters Encounter Location Date Provider Diagnosis [facility] [address] [place] [phone] 12/23/2024 [facility] Lumbar radiculopathy M54.16 [facility] [address] [place] [phone] 12/16/2024 [facility] Degeneration of intervertebral disc of lumbar region, unspecified whether pain present M51.369 ; Lumbar facet arthropathy M47.816 and Lumbar radiculopathy M54.16 [facility] [address] [place] [phone] [facility] bulge M51.369 and Lumbar radiculopathy M54.16 Assessments Encounter Date Diagnosis (ICD Code) Assessment Notes Treatment Notes Treatment Clinical Notes Section Notes 12/16/2024 Lumbar facet arthropathy (ICD-10 - M47.816) 1. DDD L4-S1 2. FA L4-S1 3. Lumbar radiculopathy The patient like to obtain MRI of the lumbar spine to further evaluate her condition as she has nowdeveloped objective weakness in the LLE with 4/5 left foot dorsiflexion concerning for progressive neurological impairment that will likely require invasive treatment to improve her condition and prevent permanent neurological injury. Will see the patient back once MRI has been obtained to discuss results. we will prescribe the patient Valium to take to tolerate the MRI 12/16/2024Degeneration of intervertebral disc of lumbar region, unspecified whether pain present (ICD-10 - M51.369) 1. DDD L4-S1 2. FA L4-S1 3. Lumbar radiculopathy The patient like to obtain MRI of the lumbar spine to further evaluate her condition as she has nowdeveloped objective weakness in the LLE with 4/5 left foot dorsiflexion concerning for progressive neurological impairment that will likely require invasive treatment to improve her condition and prevent permanent neurological injury. Will see the patient back once MRI has been obtained to discuss results. we will prescribe the patient Valium to take to tolerate the MRI 12/23/2024Lumbar radiculopathy (ICD-10 - M54.16)12/23/2024Lumbar radiculopathy (ICD-10 - M54.16) 1. L5-S1 disc hernaition 2. lumbar radiculopathy discussed MRI results with the patient. The patient would like to leave surgery as a last resort option, thus we will refer the patient to Dr. Jones to discuss LES L5-S1. We will follow up with her PRN 12/23/2024L4-L5 disc bulge (ICD-10 - M51.369) 1. L5-S1 disc hernaition 2. lumbar radiculopathy discussed MRI results with the patient. The patient would like to leave surgery as a last resort option, thus we will refer the patient to Dr. Jones to discuss LES L5-S1. We will follow up with her PRN 12/16/2024Lumbar radiculopathy (ICD-10 - M54.16) 1. DDD L4-S1 2. FA L4-S1 3. Lumbar radiculopathy The patient like to obtain MRI of the lumbar spine to further evaluate her condition as she has nowdeveloped objective weakness in the LLE with 4/5 left foot dorsiflexion concerning for progressive neurological impairment that will likely require invasive treatment to improve her condition and prevent permanent neurological injury. Will see the patient back once MRI has been obtained to discuss results. we will prescribe the patient Valium to take to tolerate the MRI 12/16/2024OtherWill see the patient back after MRIs been obtained to discuss results. We will prescribe the patient Valium to take to tolerate the MRI 1. DDD L4-S1 2. FA L4-S1 3. Lumbar radiculopathy The patient like to obtain MRI of the lumbar spine to further evaluate her condition as she has nowdeveloped objective weakness in the LLE with 4/5 left foot dorsiflexion concerning for progressive neurological impairment that will likely require invasive treatment to improve her condition and prevent permanent neurological injury. Will see the patient back once MRI has been obtained to discuss results. we will prescribe the patient Valium to take to tolerate the MRI 12/23/2024Otherwe will refer the patient to Dr. Jones [...] Lumbar spine 2v ap and lat - 99183 12/16 MRI : Lumbosacral Spine W/O Contrast - 7 8 12/16/2024 Insurance Providers Payer Name Payer Address Payer Phone Subscriber Number Group Number Insured Name Patient Relationship to Insured Coverage Start Date Coverage End Date Miryam [employer]AL[employer] [address] [place] [address] [id number] Pamela DIAZ - patient is the spouse of the insured Medical (General) History Medical History History ICD Code High Blood Pressure Blood Clots in Legs/LungsAnxietyDepression
--- OUTSIDE RECORDS SUMMARY | 2025-09-26 00:08 | XMS_ITS | Clinical Summary ---
Author Organization [facility] Address [address] [place] [place] [address] Care Team Providers Care Senior Office Support Assistant Sosa Name Role Phone Unavailable Primary Care Provider Unavailabl e Allergies No known active allergies Medications MedicationSigDispense QuantityRefillsLast FilledStart DateEnd DateStatus aspirin 81 MG EC tablet Daily01/08/2024ctive losartan-hydroCHLOROthiazide (Hyzaar) 50-12.5 MG tablet Take 1 tablet by mouth DailyActive metoprolol succinate XL (Toprol-XL) 25 MG 24 hr tablet Take 25 mg by mouth DailyActive Social History Tobacco UseTypesPacks/DayYears UsedDateSmoking Tobacco: Never Assessed CommentsNoSex and Gender InformationValueDate RecordedSex Assigned at BirthNot on fileLegal VvnRslkae82/15/2023 6:56 PM EDTGender IdentityNot on fileSexual OrientationNot on file Last Filed Vital Signs Vital SignReadingTime TakenCommentsBlood Vmqrxgow503/7208 3:48 PM EDT Pulse--Temperature--Respiratory Rate--Oxygen Saturation--Inhaled Oxygen Concentration--Qxavsa94.9 kg (154 lb)05/21/2024 3:48 PM EHWNrogoe613.2 cm (5' 7 )10/11/2022 12:00 PM ESTBody Mass Index24.12112/12/2021 12:00 PM EST Plan of Treatment DateTypeDepartmentCare Team (Latest Contact Info)Kndxjejmvqd59/23/2025 8:10 AM ESTOffice Visit [facility] [address] [place] [phone] Angelia Nieto MD [address] [place] [address] Health MaintenanceDue DateLast DoneCommentsCT Nbrbwfpvkuit1969Colonoscopy 1970FIT1970FOBT1970 3191Fnekfrycyjtbq56/11/7113Lrhlcntbu53/16/2024 11/30/2022OVID-19 Vaccine ( season)/, 01/05/2021 Influenza Vaccine (#1)/04/2017Cervical Cancer Sixzfdgvm22/28/2027 HPV/Nyfngo6501/09/2027Pap Smear7001/09/2022, 06/14/2010, 01/24/2002, Additional history existsColorectal Cancer Pqnuhvohp70/21/2028FIT-DNA11/04/2027 11/04/2024, 09/06/2021neumococcal Vaccine: Pediatrics (0 to 5 Years) and At- Risk Patients (6 to 64 Years)Aged OutNo longer eligible based on patient's age to complete this topic Procedures Procedure NamePriorityDate/TimeAssociated DiagnosisCommentsBI MAMMOGRAM SCREENING TOMOSYNTHESIS WNXPMGIQNWkpihjs46/16/2023 PAP EOGARHytwxse62/28/2022 12:00 AM EDTfrom Last 3 Months or Most Recently Relevant to Health Maintenance Results * Bilateral screening mammogram with tomosynthesis (11/30/2022)Anatomical Region LateralityModalityBreastBilateralMammographySpecimen (Source)Anatomical Location / LateralityCollection Method / VolumeCollection TimeReceived Time Narrative 11/30/2022 12:00 AM EST PERFORMED AT [facility] LOCATION:[address] Patient: ? EMILY Garcia ? Exam Date: ? 11/30/2022 : ? 1970 ?Gender:F ? Ordering : ? DR MADHURI TAYLOR . ? Admission #: ? [id number] Family : ?Order #: ? [id number] ? CLICK HERE TO VIEW EXAM RADIOLOGY REPORT PROCEDURE: ? MAMMOGRAM SCREENING 3D BILATERAL CAD COMPARISON: ? MG MAMM ELOY SCRN W CAD DIG 2015. ??MG MAMM SCREEN 3D ELOY CAD 09/21/2021. INDICATIONS: ? Screening mammography Calculator Name ? NCI Breast Cancer Risk Assessment Tool 5 Year Breast Cancer Risk ? Not Reported. Lifetime Breast Cancer Risk ? Not Reported. Personal Breast Cancer ?No Personal Ovarian Cancer ? No Treatments ? None Family Cancers ? None LOCATION: ? [facility] BREAST COMPOSITION: ? Scattered areas fibroglandular density. FINDINGS: DIAGNOSTIC CATEGORY 1--NEGATIVE. NO CHANGE FROM COMPARISON ASSESSMENT. Scattered benign-appearing nodules are present. ??Scattered benign-appearing calcifications are present. ??Scattered benign-appearing lymph nodes are present. RIGHT BREAST: ??No significant suspicious finding. LEFT BREAST: ??No significant suspicious finding. RECOMMENDATIONS: ROUTINE MAMMOGRAM AND CLINICAL EVALUATION IN 12 MONTHS. PLEASE NOTE: ??A NORMAL MAMMOGRAM DOES NOT EXCLUDE THE POSSIBILITY OF BREAST CANCER. ??A CLINICALLY SUSPICIOUS PALPABLE LUMP SHOULD BE BIOPSIED. Dictated by: Fausto Gabriel MD on 11/30/2022 at 13:49 Approved by: Fausto Gabriel MD on 11/30/2022 at 13:57 Procedure Note CONVERSION, GENERIC - 04/20/2023 PERFORMED AT [facility] LOCATION:[address] Patient: EMILY Garcia Exam Date: 11/30/2022 : 1970 Gender:F Ordering : DR MADHURI TAYLOR . Admission #: [id number] Family : Order #: [id number] CLICK HERE TO VIEW EXAM RADIOLOGY REPORT [...] Treatments None Family Cancers None LOCATION: [facility] BREAST COMPOSITION: Scattered areas fibroglandular density. FINDINGS: [...] Fausto Gabriel MD on 11/30/2022 at 13:57 Authorizing ProviderResult TypeResult StatusCorey Juan DOIMG BI PROCEDURESFinal Result * Pap Smear (01/09/2022 12:00 AM EDT)Specimen (Source)Anatomical Location / LateralityCollection Method / VolumeCollection TimeReceived TimeSwabCervical swab / Unknown Narrative Authorizing ProviderResult TypeResult StatusCorey Juan DOLAB CYTOLOGY ORDERABLESFinal ResultPerforming OrganizationAddressCity/State/ZIP CodePhone Number EXTERNAL LAB from Last 3 Months or Most Recently Relevant to Health Maintenance Insurance
== END 2025-09-26 00:22 | disposition home or self-care (01) ==
PROVIDERS: Emergency Provider Student in an Organized Health Care Education/Training Program; PCP Internal Medicine
DX: I80.01 Phlebitis and thrombophlebitis of superficial vessels of right lower extremity (principal)
CPT/HCPCS: 36415; 85378; 99283; 99284

== ENCOUNTER 2025-10-13 08:38 | Outpatient (OUT) | payer BC, SELFPAY ==
--- OUTSIDE RECORDS SUMMARY | 2024-12-23 06:45 | XMS_ITS ---
Author Organization [facility] Address [address] [place] [address] Care Team Providers Care Fish Peddler Name Role Phone LIANA DAS DO Primary Care Provider Unavaila madhuri DeonnaTracy Blanco Unavailable [phone] REASON FOR VISIT lumbar radiculopathy Encounters Encounter Location Date Provider Diagnosis [facility] [address] [place] [address] [facility] M54.16 Assessments Encounter Date Diagnosis (ICD Code) Assessment Notes Treatment Notes Treatment Clinical Notes Section Notes 12/23/2024 Lumbar radiculopathy (ICD-10 - M 54.16) Plan Of Treatment No Information Progress Notes * EMILY CASEY LDOB:1970 (55 yo F)Acc No.[id number]:12/23/2024 MRI Patient: STEVE BASSBY Zayra :?Francis HENDERSON [facility] [place], MDDOB:1970???Age:54 Y???Sex:FemaleDate:12/23/2024Phone:[phone]:[address] [place] [address]Xnu:LIANA DAS DO Subjective: * Chief Complaints: * 1 . Lumbar radiculopathy. * Medical History: Objective: * Vitals: Assessment: * Assessment: 1.?Lumbar radiculopathy - M54.16 (Primary)??? Plan: * Treatment: * Procedure Codes: 7 2148 MRI Lumbar Spine w/o Dye Forms: * Images: * Electronic signature of Francis Schmitz MD on 10/13/2025 at 08:43 AM EST Sign off status: Pending * Provider: Camren Mcgraw MD Date: 0 12/23/2024 Generated for Printing/Faxing/eTransmitting on:?10/13/2025 08:43 AM EST
--- OUTSIDE RECORDS SUMMARY | 2024-12-30 05:30 | XMS_ITS ---
Author Organization [facility] Address [address] [place] [address] Care Team Providers Care Caseworker Intake Name Role Phone LIANA DAS DO Primary Care Provider Unavaila Francis Spencer Unavailable Beka Jones Unavailable [phone] REASON FOR VISIT L4-5 disc Bulge- Referral Dr Blanco Medications Medication SIG (Take, Route, Frequency, Duration) Notes Start Date End Date Status hydrochlorothiazide-losartan 12.5 mg-50 mg 1 tab (s) orally once a day ActivediazePAM 5 mg1 tab(s) orally 1 hour prior to test and 2nd tablet if needed 30 before test [id number]/16/2024Not-TakingPercocet 325 mg-5 mg 1 tab(s) orally every 8 hours As needed Activemetoprolol 25 mg1 tab(s) orally once a dayActive Encounters Encounter Location Date Provider Diagnosis [facility] [facility] [address] [place] [address] 12/30/2024 Beka Jones Plan Of Treatment No Information Progress Notes * CASEY DIAZ LDOB:1970 (55 yo F)Acc No.[id number]:12/30/2024 Patient:?CASEY DIAZ :?Beka Jones, MDDOB:1970???Age:54 Y???Sex: FemaleDate:12/30/2024Phone:[phone]:[address] [place], [place]Ufb:LIANA DAS DO Subjective: * Chief Complaints: * [...] Electronic signature of Beka Jones MD on 10/13/2025 at 08:43 AM ESTSign off status: Pending * Provider: Mikael Jones MD Date: 0 12/30/2024 Generated for Printing/Faxing/eTransmitting on:?10/13/2025 08:43 AM EST
--- OUTSIDE RECORDS SUMMARY | 2025-10-06 08:10 | XMS_ITS | Encounter Summary ---
Author Organization [facility] Address [address] [place] [place] [address] Care Team Providers Care Electronics Engineering Manager Name Role Phone Unavailable Primary Care Provider Unavailabl e Reason for Visit * ReasonCommentsNose ProblemAbscess furunclo/carbuncle of nose * Consultation (Routine) - ClosedSpecialtyDiagnoses / ProceduresReferred By ContactReferred To ContactOtolaryngology Diagnoses Abscess, furuncle and carbuncle of nose Procedures [place] UNLISTED [facility]UATION [facility] MANAGEMENT SERVICE Grady Arriaga, DO [address] [place] [address] Phone: tel: fax: Angelia Nieto MD [address] [address] Phone: tel: fax: Referral IDStatusReasonStart DateExpiration DateVisits RequestedVisits [id number]/3/20256/ Encounter Details DateTypeDepartmentCare Team (Latest Contact Info)Lasoatiaoqg70/23/2025 8:10 AM ESTOffice Visit NOMNury [facility] [address] [facility] [address] [place] [address] Angelia Nieto MD 112 [facility] [address] [place] [address] Chronic rhinitis (Primary Dx) Social History Tobacco UseTypesPacks/DayYears UsedDateSmoking Tobacco: NeverSmokeless Tobacco: Never Tobacco Cessation:Counseling Given: Not Answered CommentsNoSex and Gender InformationValueDate RecordedSex Assigned at BirthNot on fileLegal CljWtvdkx30/15/2023 6:56 PM EDTGender IdentityNot on file Sexual OrientationNot on filedocumented as of this encounter Last Filed Vital Signs Vital SignReadingTime TakenCommentsBlood Yjlmnzqo335/8210/06/2025 8:07 AM EST Rqhsa169910/06/2025 8:07 AM ESTTemperature--Respiratory Rate--Oxygen Saturation-- Inhaled Oxygen Concentration--Qcqobr95.5 kg (151 lb)10/06/2025 8:07 AM ESTHeight 170.2 cm (5' 7 )10/06/2025 8:07 AM ESTBody Mass Index23.6510/06/2025 8:07 AM EST documented in this encounter Progress Notes * Angelia Nieto MD - 10/06/2025 8:10 AM EST Subjective Patient ID: Jennifer Zamora is a 55 y.o. female who presents for Nose Problem (Abscess furunclo/carbuncle of nose) Pt reports she thought she had a sinus infection in March and then developed a funky smell Tx withmult abx and a gel . Smell has improved, but nostril vickers when pt breathes through her nose. Sx only on the RT. Frequently digs crusts out of her nose. Review of Systems All other systems reviewed and are negative. 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) 10/05/2025 Disorder of endocrine system 10/05/2025 Essential hypertension 06/18/2023 History of right nephrectomy 10/05/2025 Low back pain potentially associated with radiculopathy 10/05/2025 Major depression 10/05/2025 Metabolic dysfunction-associated steatotic liver disease (MASLD) 10/05/2025 Nasal ulcer 10/05/2025 NSVT (nonsustained ventricular tachycardia) (HCC) 06/18/2023 Palpitations 06/18/2023 Pancreatitis, unspecified pancreatitis type ([facility]) 12/02/2024 Primary insomnia 10/05/2025 Recurrent urinary tract infection 10/05/2025 Renal mass 12/01/2024 Unspecified urethral stricture, female 10/05/2025 Wellness examination 10/05/2025 Resolved Ambulatory Problems Diagnosis Date Noted No Resolved Ambulatory Problems Past Medical History: Diagnosis Date Carcinoma (HCC) Hypertension Surgical History[2] Allergies[3] Medications Ordered Prior to Encounter[4] Objective Last Recorded Vitals Vitals: 10/06/25 0807 BP: 110/82 Pulse: 91 ENT Physical Exam Constitutional Appearance: patient appears well-developed, well-nourished and well-groomed, Head and Face Appearance: head appears normal and face appears atraumatic; Ear Ear Canals: right ear canal normal; left ear canal normal; Tympanic Membranes: right tympanic membrane normal; left tympanic membrane normal; Nose External Nose: nares patent bilaterally; external nose normal; Nose comments: Hilario R>>L ant septal excoriation and mild mucosal inflammation. Oral Cavity/Oropharynx Tongue: normal; Oral mucosa: normal; Hard palate: normal; Soft palate: normal; Tonsils: normal; Neck Neck: neck normal; neck palpation normal; Thyroid: thyroid normal; Respiratory Inspection: breathing unlabored; normal breathing rate; Auscultation: breath sounds are clear; Cardiovascular Inspection: extremities are warm and well perfused; no peripheral edema present; Auscultation: regular rate and rhythm; Assessment/Plan Diagnoses and all orders for this visit: Chronic rhinitis - mupirocin (Bactroban) 2 % ointment; Apply to each side of the nose twice daily - sulfamethoxazole-trimethoprim (Bactrim DS) 800-160 MG per tablet; Take 1 tablet by mouth in the morning and 1 tablet before bedtime. Do all this for 14 days. Pt has hilario septal excoriation exacerbated by frequent debridement. Tx with bactrim and bactroban ointment for one month. Avoid all debridement during this time to allow to heal [1] Family History Problem Relation Name Age of Onset Heart failure Father [2] Past Surgical History: Procedure Laterality Date APPENDECTOMY SECTION, LOW TRANSVERSE GALL BLADDER 11/2024 OTHER SURGICAL HISTORY partial kidney taken out 06/2025 TOTAL ABDOMINAL HYSTERECTOMY 07/31/2008 Kaston TUBAL LIGATION [3] No Known Allergies [4] Current Outpatient Medications on File Prior to Visit Medication Sig Dispense Refill aspirin 81 MG EC tablet buPROPion XL (Wellbutrin XL) 150 MG 24 hr tablet Every morning fluticasone (Flonase) 50 MCG/ACT nasal spray Daily as needed losartan-hydroCHLOROthiazide (Hyzaar) 50-12.5 MG tablet Take 1 tablet by mouth Daily metoprolol succinate XL (Toprol-XL) 25 MG 24 hr tablet Take 25 mg by mouth Daily potassium chloride CR (Klor-Con) 10 MEQ ER tablet zolpidem (Ambien) 5 MG tablet Daily at bedtime as needed for sleep No current facility-administered medications on file prior to visit. documented in this encounter Plan of Treatment DateTypeDepartmentCare Team (Latest Contact Info)Jliepnhgpol97/21/2026 3:30 PM ESTOffice Visit LINDAS Abraham [facility] [address] [facility] [address] [place] [address] Angelia Nieto MD 112 [facility] [address] [place] [address] documented as of this encounter Visit Diagnoses Diagnosis Chronic rhinitis- Primary documented in this encounter
--- OUTSIDE RECORDS SUMMARY | 2025-10-13 08:43 | XMS_ITS | Patient Health Record ---
Author Organization [facility] in [place] Address [address] [place] [address] Care Team Providers Care Police Sergeant Name Role Phone Bart BRONSON Grady Primary Care Provider Maylin MistryGlen chu Unavailable [phone] Allergies No Known Allergies Results Component Value Reference Range Notes MRI ABDOMEN W WO CONTRAST MR CP Reviewed date:12/15/2024 12:02:13 PM Interpretation: Performing Lab: Notes/Report: ADDENDUM: Performed at: [facility] [address] [facility] [address] Surgical Pathology ([facility]) Reviewed date:12/15/2024 12:18:34 PM Interpretation: Performing Lab: Notes/Report: Path Number: [id number] -- Diagnosis -- Gallbladder: -Cholelithiasis and chronic [...] Microscopic Description Microscopic examination performed. Processing Lab: [address] [address] Interpretation Performed at [address] [address] SURGICAL PATHOLOGY CONSULTATION Patient Name: JENNIFER ZAMORA [facility] Rec: [id number] [facility] ANATOMIC PATHOLOGY [facility] [place], [place] [address] Reason For Referral No Information Medications Medication [...] Risk Notes Problem Cholelithiasis witho ut obstruction (17796498) Asymptomatic cholelithiasis (K80.20) Activeconfirmed Vital Signs Height 67 in 12/15/2024 Vvpbzl690 lbs5BMI25.06 kg/m212/15/2024 Encounters Encounter Location Date Provider Diagnosis General Surgery Boris Arreola [facility] [address] [place] [address] 12/15/2024 Glen Arreola Encounter for follow-up examination after completed treatment for conditions other than malignant neoplasm Z09 [facility] [address] [address] 12/02/2024 Glen Arreola Assessments Encounter Date Diagnosis [...] Date BCBS OUT OF STATE [address] [place] [address] [id number] Roque Zamora - patient is the spouse of the hsfnzst55 2024 Medical (General) History Medical History History ICD Code Hypertension I10 ADHD F90.9 IFG (impaired fasting glucose) R73.01 Hypokalemia E87.6 Obesity E66.9 NSVT (nonsustained ventricular tachycard ia) I47.29 Gastroesophageal reflux disease K21.9 Palpitation R00.2 Hormonal disorder E34.9 Post menopausal syndrome N95.1 Eczema L30.9 GREG (generalized anxiety disorder) F41.1 Surgical History Surgery Date(Month/Year) section kylghcdjktijzqapiijwemnn2269
--- OUTSIDE RECORDS SUMMARY | 2025-10-13 08:43 | XMS_ITS | Patient Health Record ---
Author Organization [facility] Address [address] [place] [address] Care Team Providers Care Occupational Therapy Specialist Name Role Phone AngelGela Primary Care Provider [...] W/U Status Risk Notes Problem Essential hypertension (55037794 ) Elevated blood pressure reading in office with diagnosis of hypertension (I10) Activeconfirmed Plan Of Treatment No Information Insurance Providers Payer Name Payer Address Payer Phone Subscriber Number Group Number Insured Name Patient Relationship to Insured Coverage Start Date Coverage End Date [facility] [address] [place] [address] [id number] Jennifer ZamoraSelf - patient is the insured Medications Administered Medication Instructions Date of Administration Dosage Notes Kenalog 40 (40mg Admin) mL Medical (General) History Medical History History ICD Code HTN DepressionSurgical History Surgery Date(Month/Year) X 2 total bladder repairappendectomyhysterectomyHospitalization History Reason Date(Month/Year) surgeries childbirth
--- OUTSIDE RECORDS SUMMARY | 2025-10-13 08:43 | XMS_ITS | Clinical Summary ---
Author Organization [facility] Address [address] [place] [address] Care Team Providers Care Orthotic Practitioner Name Role Phone Unavailable Primary Care Provider Unavailabl e Social History Tobacco UseTypesPacks/DayYears UsedDateSmoking Tobacco: Never Assessed CommentsUnknownSex and Gender InformationValueDate RecordedSex Assigned at Not on fileLegal OgqHhkbmg53/02/2012 9:43 AM ESTGender IdentityNot on fileSexual OrientationNot on file Plan of Treatment Health MaintenanceDue DateLast DoneCommentsAnxiety Apeqdsuew40/11/1987Depression Sdfxjfmgt90/11/1987HIV Bzmtcpeht94/11/1987Hepatitis C Cnulkdflo80/11/1987 DTaP,Tdap,Td Vaccine (1 - Tdap)1988Hepatitis B Vaccine (1 of 3 - 19+ 3- dose series)1988Cervical Cancer Djqhqibgn41, 11/15/2000, 11/15/2000Mammogram Qwomhrrwl32/11/2009CT Pmqdszubtvhl99/11/2014Cologuard (FIT-DNA)06/25/20141576Zzdgwgesxnp80/11/2014Colorectal Cancer Ketwbryqv06/11/2014 Diabetes Hlmqdpjdy97/11/2014Fecal Occult Blood2014Lipid Screening 06/25/20141792Gyhkfgtpujeif13/11/2014Pneumococcal Vaccine: 50+ (1 of 1 - PCV) 2019Shingrix Vaccine (1 of 2)2019Covid-19 Vaccine (1 - 2024- season)2025Influenza Vaccine (#1)2025RSV Vaccine (1 - 1-dose 75+ series)2044 Procedures Procedure NamePriorityDate/TimeAssociated DiagnosisCommentsPAP FLUID CERVICAL KKSPHMLGJ41/12/2002 from Last 3 Months or Most Recently Relevant to Health Maintenance Results * PAP FLUID CERVICAL SCREENING (01/24/2002)ComponentValueRef RangeTest Method Analysis TimePerformed AtPathologist SignatureTranscriptionPhysician: Colleen Khanna (A81) SPECIMEN #: [id number] CLINIC LABTranscription *[facility] LABTranscriptionFINAL DIAGNOSIS:[facility] TranscriptionFLUID, CERVICAL, SCREENINGGER[facility]OSPITAL LABTranscription SATISFACTORY FOR INTERPRETATION.[facility] LABTranscriptionSLIGHT DYSPLASIA (EMIGDIO-1, Low Grade LAURA).[facility] LABTranscriptionACUTE INFLAMMATION.[facility] LABTranscription[facility] Brianna Watson M.D./[facility] LABTranscription [facility] LABTranscription Report Electronically Signed Out [facility] LABTranscription *[facility] LABTranscription[facility] LABTranscriptionSPECIMEN(S) SUBMITTED:[facility] LABTranscriptionFLUID, CERVICAL, SCREENING (PAP Smear)[facility] LABTranscriptionSmears Received: Number of Thin Preps: 1CTRI[facility] LABTranscription[facility] LABTranscriptionCLINICAL DATA:[facility] LABTranscription{None Entered}[facility] Transcription[facility] LABTranscriptionDate of last Menstrual Period: 12/27/01[facility] LABTranscription[facility] LABTranscription GROSS DESCRIPTION:[facility] YEFFddocdejpkcjp48 CC PRESERVCYT SOLUTION [facility] LABTranscription[facility] LABTranscription[facility] LABTranscriptionPatient ID #: [id number] Financial #:[facility] TranscriptionManaged Care ID #: Date of Report: 02/02/02[facility] TranscriptionDOB:1970 (Age: 31) F Date of Procedure: 01/24/02[facility] LABTranscriptionDate of Receipt: 01/24/02[facility] TranscriptionPhysician: Colleen Khanna ([id number]) Location: [id number] TranscriptionFalcadrianne/Zayra Carter (A81)[facility] LABTranscription [facility] LABSpecimen (Source)Anatomical Location / Laterality Collection Method / VolumeCollection TimeReceived Time 11:39 PM EDT Narrative Authorizing ProviderResult TypeResult StatusColleen Khanna MDCYTOLOGYFinal ResultPerforming OrganizationAddressCity/State/ZIP CodePhone Number [facility] [address] [place] [address] from Last 3 Months or Most Recently Relevant to Health Maintenance
--- OUTSIDE RECORDS SUMMARY | 2025-10-13 08:43 | XMS_ITS | Encounter Summary ---
Author Organization [facility] Address [address] [place] [address] Care Team Providers Care Human Factors Ergonomist Name Role Phone Unavailable Primary Care Provider Unavailabl e Encounter Details DateTypeDepartmentCare Team (Latest Contact Info)Xjpjmukuczp49/23/2025Travel Social History Tobacco UseTypesPacks/DayYears UsedDateSmoking Tobacco: NeverSmokeless Tobacco: NeverCommentsNoSex and Gender InformationValueDate RecordedSex Assigned at BirthNot on fileLegal KleInfmok49/15/2023 6:56 PM EDTGender IdentityNot on fileSexual OrientationNot on filedocumented as of this encounter Plan of Treatment DateTypeDepartmentCare Team (Latest Contact Info)Nmmadfwcuke10/21/2026 3:30 PM ESTOffice Visit EDWIN Rosario Otol[facility]ology [address] [place] [address] Angelia Nieto MD [address] [place] [address] documented as of this encounter Visit Diagnoses Not on filedocumented in this encounter
--- OUTSIDE RECORDS SUMMARY | 2025-10-13 08:43 | XMS_ITS | Clinical Summary ---
Author Organization [facility] Address [address] [place] [address] Care Team Providers Care Couture Dressmaker Name Role Phone Unavailable Primary Care Provider Unavailabl e Social History Tobacco UseTypesPacks/DayYears UsedDateSmoking Tobacco: Never AssessedUT Safety & EnvironmentAnswerDate RecordedFear of Current or Ex-PartnerNot on file 12/06/2023Emotionally AbusedNot on file12/06/2023hysically AbusedNot on file 12/06/2023Sexually AbusedNot on file4Physically or Sexually AbusedNot on file12/06/2023CommentsUnknownSex and Gender InformationValueDate RecordedSex Assigned at BirthNot on fileLegal BveBcpeqw50/29/2022 9:42 PM EDT Gender IdentityNot on fileSexual OrientationNot on file Plan of Treatment Not on file
--- OUTSIDE RECORDS SUMMARY | 2025-10-13 08:43 | XMS_ITS | Clinical Summary ---
Author Organization [facility] Address [address], [address] [place] [address] Care Team Providers Care Neurosurgical Physician Assistant Name Role Phone Grady Arriaga DO Primary Care Provider [phone] Allergies No known active allergies Medications MedicationSigDispense [...] 12/02/2024Renal mass5Acute biliary pancreatitis without infection or hgdwadmn48/16/5008Njktoylfuklr14/04/2023 Social History Tobacco UseTypesPacks/DayYears UsedDateSmoking Tobacco: NeverSmokeless Tobacco: Never Tobacco Cessation:Counseling Given: Not Answered Alcohol UseStandard Drinks/WeekCommentsNot Currently0 (1 standard drink = 0.6 oz pure alcohol)[facility] UtilitiesAnswerDate RecordedIn the past 12 months has the [employer], gas, oil, or water Wallstr threatened to shut off services in your [...] were you homeless or living in a alf (including now)?No11/30/2024Food InsecurityAnswerDate RecordedWithin the past 12 months, you worried that your food would run out before you got the money to buymore.Within the past 12 months, the food you bought just didn't last and you didn't have money to get more.Interpersonal Safety Domain Source: IP Abuse ScreeningAnswerDate RecordedPhysical abuseDenies 11/30/2024Verbal lwtheWfhnls76/16/2025Emotional axgtlMffqcb09/16/2025Financial zxxonXthcxn47/16/2025Sexual heergUmmvlk92/16/2025CommentsUnknownSex and Gender InformationValueDate RecordedSex Assigned at BirthNot on fileLegal Sex Nfodgg3811/30/2024 2:46 PM ESTGender IdentityNot on fileSexual OrientationNot on file Last Filed Vital Signs Vital SignReadingTime TakenCommentsBlood Vjsmxuha851/76012/03/2024 10:30 AM EST Baefx429712/03/2024 10:30 AM YZXUrxjfnhgksh61.5 ??C (97.7 ??F)12/03/2024 10:30 AM ESTRespiratory Jshb590012/03/2024 1:19 PM ESTOxygen Nbuxdmfmhz68%12/03/2024 10:30 AM ESTInhaled Oxygen Concentration--Ifdzps36.1 kg (167 lb 12.8 oz)11/30/2024 9:15 PM JROKwmouk081.2 cm (5' 7 )11/30/2024 9:15 PM ESTBody Mass Index26.28 11/30/2024 9:15 PM EST Plan of Treatment Health MaintenanceDue DateLast DoneCommentsDepression Dyspir8406/25/1981HIV screen 1984Hepatitis C jpjdxw8806/25/1987Hepatitis B vaccine (1 of 3 - 19+ 3-dose series)1988Pap smear1990Cervical cancer zslyot2206/25/1999HPV (without or with Pap)1999Diabetes badoew5806/25/20045589Vnqnfs86/11/2009Colonoscopy 2014FIT/FOBT: Average risk2014Sigmoidoscopy/CT colonography 2014Pneumococcal 50+ years Vaccine (1 of 1 - PCV)2019Shingles vaccine (1 of 2)2019Breast cancer fvisip87502/Flu vaccine (#1)502/04/2017, 08/24/2009COVID-19 Vaccine (3 - season) /, 1DTaP/Tdap/Td vaccine (2 - Td or Tdap)11/21/2026 11/21/2016Colorectal Cancer Rlhhop9011/04/2027Fecal-DNA (Cologuard): Average risk 801/, 09/06/2021Hepatitis A vaccineAged [...] Lexx Lig Hem O Lexx (6ea/Pk) - [id number] Implanted:Qty: 1 on 12/02/2024 by Glen Arreola MD at [facility] MEDICAL-[id number] / / [id number] [place] [address] Advance Directives * Full Code (Latest Code Status on File) Date ActivatedDate InactivatedComments11/30/2024 9:14 12/03/2024 5:14 PM Care Teams Team MemberRelationshipSpecialtyStart DateEnd Date Grady Arriaga DO [address] [place] [address] PCP - GeneralInternal Medicine11/30/24
--- OUTSIDE RECORDS SUMMARY | 2025-10-13 08:43 | XMS_ITS | Patient Health Record ---
Author Organization [facility] Address [address] [place] [address] Care Team Providers Care Metalsmith Name Role Phone LIANA DAS DO Primary Care Provider Unavaila ble Tracy Schmitzreanna Unavailable [phone] Beka Jones Unavailable [phone] Allergies No Known Allergies Reason For Referral Reason NO PRIOR AUTH REQURI ED ANTHEM....MRI lumbar scheduled 12/23/24 Diagnosis 1 Degeneration of inte rvertebral disc of lumbar region, unspecified whether pain present (M51.369) Referral Organization [facility] Referring Provider First Name Francis Referring Provider Last Name Keila forte Referring Provider Speciality Orthopedic Surgery Referred Organization [facility] Referred Address [address] [place] [phone], Procedure 1 MRI Lumbar Spine w/o Dye (19126) General Notes Deal, Sherley 12/17/19 02:21:45 PM >, Leilani Franco 12/16/2024 02:33:22 PM > wtg on note, Leilani Franco 12/18/2024 10:23:16 AM > PER ELIZABETH Ty NO PRIOR AUTH REQUIRED REF #[id number], PER [employer] PT HAS ACTIVE COVERAGE POLICY START DATE IS 11/15/2024 WITH NO END DATE. Referral Priority Routine Reason Dr. Jones L5-S1 LES Diagnosis 1 L4-L5 disc bulge (M5 1.369) Referral Organization [facility] Referring Provider First Name Davidisaacreanna Referring Provider Last Name Keila forte Referring Provider Speciality Orthopedic Surgery [facility] Address [address] [place] [phone], General Notes Chandni Mathew 12/13 01:02:49 PM >, Darleen Quintana 12/24/2024 08:54:40 AM >3.18.25 Referral Priority Routine Medications Medication SIG (Take, Route, Frequency, Duration) Notes Start Date End Date Status hydrochlorothiazide-losartan 12.5 mg-50 mg 1 tab (s) orally once a day ActivediazePAM 5 mg1 tab(s) orally 1 hour prior to test and 2nd tablet if needed 30 before test wlevji9212/16/2024Not-TakingPercocet 325 mg-5 mg 1 tab(s) orally every 8 hours As needed Activemetoprolol 25 mg1 tab(s) orally once a dayActiveLosartan Potassium HCTZ Activemetoprolol 25 mg1 tab(s)Active Social History Tobacco Use: Social History Observation Description Date Details (start date - stop date) Never Smoker NA - NA AUDIT-C (Standard) Question Answer Notes Did you have a drink containing alcohol in the p ast year? No Cttnji7DkclnyeskrwjyeIlawnzgzZwudpek Control (Standard) Question Answer Notes Tobacco use: Nonsmoker Problems Problem Type SNOMED Code ICD Code Onset Dates Problem Status W/U Status Risk Notes Problem Lumbar radiculopathy (912285932) Lumbar r adiculopathy (M54.16) ActiveconfirmedProblemArthropathy of lumbar facet joint (099396978)Lumbar facet arthropathy (M47.816)ActiveconfirmedProblemDegeneration of lumbar intervertebral disc (disorder) (45763474)Degeneration of intervertebral disc of lumbar region, unspecified whether pain present (M51.369)Activeconfirmed Vital Signs Height 5ft 7in in 12/23/2024 Qjueai772 lbs12/23/2024BMI24.9012/23/2024 Encounters Encounter Location Date Provider Diagnosis [facility] [address] [place] [phone] 12/23/2024 [facility] Lumbar radiculopathy M54.16 [facility] [address] [place] [phone] 12/16/2024 [facility] Degeneration of intervertebral disc of lumbar region, unspecified whether pain present M51.369 ; Lumbar facet arthropathy M47.816 and Lumbar radiculopathy M54.16 [facility] [address] [place] [phone] [facility] L[facility] bulge M51.369 and Lumbar radiculopathy [...] Lumbar spine 2v ap and lat - 01245 12/16 MRI : Lumbosacral Spine W/O Contrast - 7 8 12/16/2024 Insurance Providers Payer Name Payer Address Payer Phone Subscriber Number Group Number Insured Name Patient Relationship to Insured Coverage Start Date Coverage End Date Miryam [address] [place] [address] [id number] Pamela DIAZ - patient is the spouse of the insured Medical (General) History Medical History History ICD Code High Blood Pressure Blood Clots in Legs/LungsAnxietyDepression
--- OUTSIDE RECORDS SUMMARY | 2025-10-13 08:43 | XMS_ITS | Encounter Summary ---
Author Organization [facility] Address [address] [place] [address] Care Team Providers Care Smoking Pipe Maker Name Role Phone Unavailable Primary Care Provider Unavailabl e Encounter Details DateTypeDepartmentCare Team (Latest Contact Info)Odscxqklpfg27/23/2025amboo flowsheet [facility] [address] [place] [id number] Angelia Nieto MD [address] [place] [address] Social History Tobacco UseTypesPacks/DayYears UsedDateSmoking Tobacco: NeverSmokeless Tobacco: NeverCommentsNoSex and Gender InformationValueDate RecordedSex Assigned at BirthNot on fileLegal GlyEllakp16/15/2023 6:56 PM EDTGender IdentityNot on fileSexual OrientationNot on filedocumented as of this encounter Plan of Treatment DateTypeDepartmentCare Team (Latest Contact Info)Otamjfciqyj40/21/2026 3:30 PM ESTOffice Visit [facility] [address] [place] [phone] Angelia Nieto MD [address] [place] [address] documented as of this encounter Visit Diagnoses Not on filedocumented in this encounter
--- OUTSIDE RECORDS SUMMARY | 2025-10-13 08:43 | XMS_ITS | Clinical Summary ---
Author Organization [facility] Address [address] [place] [address] Care Team Providers Care Meat Blender Name Role Phone Unavailable Primary Care Provider Unavailabl e Allergies No known active allergies Medications MedicationSigDispense QuantityRefillsLast FilledStart DateEnd DateStatus aspirin 81 MG EC tablet 4Active losartan-hydroCHLOROthiazide (Hyzaar) 50-12.5 MG tablet Take 1 tablet by mouth DailyActive metoprolol succinate XL (Toprol-XL) 25 MG 24 hr tablet Take 25 mg by mouth DailyActive fluticasone (Flonase) 50 MCG/ACT nasal spray Daily as hkcojd055Active zolpidem (Ambien) 5 MG tablet Daily at bedtime as needed for sleep5Active potassium chloride CR (Klor-Con) 10 MEQ ER tablet 5Active buPROPion XL (Wellbutrin XL) 150 MG 24 hr tablet Every /24/2025Active mupirocin (Bactroban) 2 % ointment Indications:Chronic rhinitisApply to each side of the nose twice daily 15 g 5Active sulfamethoxazole-trimethoprim (Bactrim DS) 800-160 MG per tablet Indications:Chronic rhinitisTake 1 tablet by mouth in the morning and 1 tablet before bedtime. Do all this for 14 days. 28 tablet 506Active Active Problems ProblemNoted DateDiagnosed DateClear cell carcinoma of right mdfvyj0210/05/2025 Overview (10/05/2025): partial right nephrectomy - 05/2025 Disorder of endocrine isyczy9210/05/2025History of right dnbultgkiki17/22/2025Low back pain potentially associated with vksebhwmxouks15/22/2025Major depression 10/05/2025Metabolic dysfunction-associated steatotic liver disease (MASLD) 10/05/2025Nasal ulcer10/05/2025Primary efvfbxoo95/22/2025Recurrent urinary tract qzyzmsogq62/22/2025Unspecified urethral stricture, hsehat9510/05/2025Wellness ygimzhqdlik37/22/2025Pancreatitis, unspecified pancreatitis type ([facility]-HCC) 12/02/2024Renal mass12/01/2024 Overview (10/05/2025): CT: 1.5cm right renal mass - 11/2024 MRI: 1.7cm right renal mass - 04/2025 Acute biliary pancreatitis without infection or necrosis ([facility]-HCC)11/30/2024 Abnormal qkfaomhtqsidyqble47/04/2023lass 2 obesity with body mass index (BMI) of 36.0 to 36.9 in adult06/18/2023Essential ivrhkmeqbihy30/04/2023NSVT (nonsustained ventricular tachycardia)06/18/20239903Twxrrjspydqa35/04/2023bnormal weight gain05/06/2008 Encounters DateTypeDepartmentCare XtxoAgjibboxpfs70/23/2025 8:10 AM ESTOffice Visit [facility] [address] [facility] [address] [place] [address] Angelia Nieto MD Chronic rhinitis (Primary Dx)10/06/2025amboo flowsheet [facility] [address] [facility] [address] [place] [address] Angelia Nieto MD 10/06/2025Travelfrom Last 3 Months Immunizations ImmunizationAdministration DatesNext DueInfluenza, intradermal, quadrivalent, preservative free11/21/2016Novel cluiiieeh-M0J7-26, preservative-free08/24/2009 Tdap11/21/2016 Family History Medical HistoryRelationNameCommentsHeart failureFatherRelationNameStatusComments FatherDeceasedMotherAlive Social History Tobacco UseTypesPacks/DayYears UsedDateSmoking Tobacco: NeverSmokeless Tobacco: Never Tobacco Cessation:Counseling Given: Not Answered CommentsNoSex and Gender InformationValueDate RecordedSex Assigned at BirthNot on fileLegal CstYorkik55/15/2023 6:56 PM EDTGender IdentityNot on file Sexual OrientationNot on file Last Filed Vital Signs Vital SignReadingTime TakenCommentsBlood Pmjqiyua635/8210/06/2025 8:07 AM EST Cfpex685610/06/2025 8:07 AM ESTTemperature--Respiratory Rate--Oxygen Saturation-- Inhaled Oxygen Concentration--Rusaom67.5 kg (151 lb)10/06/2025 8:07 AM ESTHeight 170.2 cm (5' 7 )10/06/2025 8:07 AM ESTBody Mass Index23.6510/06/2025 8:07 AM EST Plan of Treatment DateTypeDepartmentCare Team (Latest Contact Info)Zzffyjxnokw21/21/2026 3:30 PM ESTOffice Visit [facility] [address] [facility] [address] [place] [address] Angelia Nieto MD [address] [facility] [address] [place] [address] Health MaintenanceDue DateLast DoneCommentsCT Dvcgnxomvoeq1969Colonoscopy 1969FIT1969FOBT1969 1578Qsbcntigpcgur40/11/8012Uaivtpdwn75/16/2024 11/30/2022Influenza Vaccine (#1)/04/2017Cervical Cancer Screening 01/09/2027HPV/Hjeoug4001/09/2027Pap Smear7001/09/2022, 06/14/2010, 01/24/2002, Additional history existsColorectal Cancer Bzzgttyci99/21/2028 FIT-DNA801/, 09/06/2021neumococcal Vaccine: Pediatrics (0 to 5 Years) and At-Risk Patients (6 to 64 Years)Aged OutNo longer eligible based on patient's age to complete this topic Procedures Procedure NamePriorityDate/TimeAssociated DiagnosisCommentsBI MAMMOGRAM SCREENING TOMOSYNTHESIS ICOXBFUMGLzfwlxa47/16/2023 PAP ACRVTTxrecpw04/28/2022 12:00 AM EDTfrom Last 3 Months or Most Recently Relevant to Health Maintenance Results * Bilateral screening mammogram with tomosynthesis (11/30/2022)Anatomical Region LateralityModalityBreastBilateralMammographySpecimen (Source)Anatomical Location / LateralityCollection Method / VolumeCollection TimeReceived Time Narrative 11/30/2022 12:00 AM EST PERFORMED AT [facility] LOCATION:[address] Patient: ? EMILY PEÑA Jose ? Exam Date: ? 11/30/2022 : ? 1970 ?Gender:F ? Ordering : ? DR MADHURI TAYLOR . ? Admission #: ? [id number] Family : ?Order #: ? [id number] ? CLICK HERE TO VIEW EXAM RADIOLOGY [...] Family Cancers ? None LOCATION: ? [facility] BREAST COMPOSITION: ? Scattered areas fibroglandular density. [...] Note CONVERSION, GENERIC - 04/20/2023 PERFORMED AT [facility] LOCATION:[address] Patient: EMILY Garcia Exam Date: 11/30/2022 : 1970 Gender:F Ordering : DR MADHURI TAYLOR . Admission #: [id number] Family : Order #: [id number] CLICK HERE TO VIEW EXAM RADIOLOGY REPORT [...] Treatments None Family Cancers None LOCATION: [facility] BREAST COMPOSITION: Scattered areas fibroglandular density. [...] at 13:57 Authorizing ProviderResult TypeResult StatusCorey Juan [facility] BI PROCEDURESFinal Result * Pap Smear (01/09/2022 12:00 AM EDT)Specimen (Source)Anatomical Location / LateralityCollection Method / VolumeCollection TimeReceived TimeSwabCervical swab / Unknown Narrative Authorizing ProviderResult TypeResult StatusCorey Juan [facility] ORDERABLESFinal ResultPerforming OrganizationAddressCity/State/ZIP CodePhone Number EXTERNAL LAB from Last 3 Months or Most Recently Relevant to Health Maintenance Insurance
--- OUTSIDE RECORDS SUMMARY | 2025-10-13 08:43 | XMS_ITS | Clinical Summary ---
Author Organization [facility] Address [address] [place] [address] Phone Care Team Providers Care Career Developer Name Role Phone Grady Arriaga DO Primary Care Provider [phone] Allergies No known active allergies Medications MedicationSigDispense [...] once daily.07/04/2021ctive Active Problems ProblemNoted DateDiagnosed DateAbnormal mkkcqxmwdkpkjarpk69/04/2023Hypertension 06/18/2023NSVT (nonsustained ventricular tachycardia)06/18/2023alpitations 06/18/2023lass 2 obesity with body mass index (BMI) of 36.0 to 36.9 in adult 06/18/2023White coat syndrome with vmohhxmfwhhx24/04/2023 Immunizations ImmunizationAdministration DatesNext DueInfluenza, intradermal, quadrivalent, preservative free11/21/2016Novel qmnvgrecw-V3H8-73, preservative-free08/24/2009 Tdap vaccine, age 7 year and older (BOOSTRIX, ADACEL)11/21/2016 Family History Medical HistoryRelationNameCommentsHeart attackFatherDiabetesMotherStrokeMother RelationNameStatusCommentsFatherMother Social History Tobacco UseTypesPacks/DayYears UsedDateSmoking Tobacco: Never Assessed CommentsUnknownSex and Gender InformationValueDate RecordedSex Assigned at Not on fileLegal FapEtmmtu85/26/2022 6:36 PM ESTGender IdentityNot on fileSexual OrientationNot on file Last Filed Vital Signs Vital SignReadingTime TakenCommentsBlood Lelxtahh095/8207/18/2022 1:41 PM EDT Mhjko229507/18/2022 1:41 PM EDTTemperature--Respiratory Rate--Oxygen Saturation-- Inhaled Oxygen Concentration--Smsinz22.7 kg (182 lb 4 oz)07/18/2022 1:41 PM EDT Vvkqon908.2 cm (5' 7 )07/18/2022 1:41 PM EDTBody Mass Index28.5407/18/2022 1:41 PM EDT Plan of Treatment Health MaintenanceDue DateLast DoneCommentsCT Dnfbyejydxle1969Colonoscopy 1969Colorectal Cancer Dkymwtnrb1969FIT-DNA (Cologuard)1969FIT 1969HIV Qcbojuqli1969Lipid Panel1969 5797Twqsyvuomxooo1969 Yearly Adult Ghnhedoz1969Diabetes Zzixqvfll67/11/1987Hepatitis C Screening 1987Hepatitis B Vaccines (1 of 3 - 19+ 3-dose series)1988Cervical Cancer Glyzkbgoc56/11/1990HPV/Khgdms2806/25/1990Pap Smear1990Mammogram 2009MMR Vaccines (1 of 1 - Standard series)09/21/2009Pneumococcal Vaccine (1 of 1 - PCV)2019Zoster Vaccines (1 of 2)2019COVID-19 Vaccine (3 - 2024- season)504/, 01/05/2021Influenza Vaccine (#1)2025 11/21/2016, 08/24/2009DTaP/Tdap/Td Vaccines (2 - Td or Tdap) HIB [...]
--- OUTSIDE RECORDS SUMMARY | 2025-10-13 08:45 | XMS_ITS | CCD ---
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 Referring Unavailable Lue, Rosmery M. Attending Unavailable Lue, Rosmery M. Admitting Unavailable Lue, Rosmery M. Attending Unavailable Lue, Rosmery M. Attending Unavailable Allergies Allergy ClassificationReported Allergen(s)Allergy TypeDate of OnsetReaction(s) Facility (3 sources)patient allergy list reviewed by nurse or physiciaPropensity to adverse yuutxraok68-04-2079Tgvfbix:[facility] [place] Other (3 sources)NONE CURRENTPropensity to adverse roalegjpt69-69-9039PYRV CURRENT [facility] [place] Other (3 sources)Allergies ReconciledPropensity to adverse reactionsUnknownNorth [facility] [place] Other (5 sources)No Known Medication Allergies; Translations: [No Known Medication Allergies]Propensity to adverse reactions (disorder)[facility] Repository Medications Current Medications MedicationDrug Class(es)DatesSig (Normalized)Sig (Original)aspirin 81 mg delayed release oral tablet (20 sources)Platelet Aggregation Inhibitor, Nonsteroidal Anti-inflammatory Drug Start: 95-18-4410eigy 1 tablet by mouth once dailyaspirin 81 mg Oral EC Tab Oral, Daily, Refills(s) 0 Start Date: 06/10/25 Status: Ordered Repeat number: 1 Start: 48-41-9972pctj 81 mg by mouth once dailyAspirin Low Dose 81 mg, Oral, Daily, Refills(s) 0 Start Date: 05/18/25 Status: Ordered Repeat number:1Start: 37-24-2640xhjd 1 mg by mouth once dailyaspirin 81 mg Oral EC Tab mg tab(s), Oral, Daily, Refills(s) 0 Start Date: 02/21/22 Status: OrderedStart: 02-21-2022 End: 71-12-6146yxak 1 tablet by mouth once dailyAspirin 81 mg tablet,delayed release (DR/EC) Discontinued 81 MG PO Daily January 08, 2024 12:00am May 05, 2025 2:47pmBaby Aspirin Not-Taking/PRNBaby Aspirin Not-TakingBaby Aspirin Active Augmentin Tablets 875 MG (1 source)Start: 75-06-8703wacr 1 tablet by mouth every twelve hoursAugmentin Tablets 875 MG 1 tab(s) orally bid for 10 day(s) Jul, Activecalcium chloride 0.0014 meq/ml / potassium chloride 0.004 meq/ml / sodium chloride 0.103 meq/ml / sodium lactate 0.028 meq/ml injectable solution (1 source)Start: 05-82-9643VuwlcLWWdxq, at 150 mL/hr, CONTINUOUS, Starting on Sun12/01/24 at 0930cephalexin 500 mg oral capsule (5 sources)Cephalosporin AntibacterialStart: 06-05-2024 End: 17-03-6166ddyj 1 capsule by mouth in the morningcephalexin (Keflex) 500 MG capsule Indications: Acute vaginitis Take 1 capsule (500 mg) by mouth inthe morning and 1 capsule (500 mg) before bedtime. 60 capsule 1 06/05/2024 07/05/2024 ActiveStart: 10-35-9727ykvl 1 mg by mouth every twelve hoursKeflex 500 mg Cap mg cap(s), Oral, q12hr, Refills(s) 0 Start Date: 02/21/22 Status: Orderedciprofloxacin 500 mg oral tablet (1 source)Quinolone AntimicrobialStart: 86-06-1000Pynvz 500 mg Tab See Instructions, Take 1 tab day prior to procedure and 1 tab day of procedure after the procedure, # 2 tab(s), Refills(s) 0, Pharmacy: [id number], 169, cm, 02/28/22 9:30:00 EDT, Height/Length Dosing, 95, kg, 02/21/22 14:43:00 EDT, Marciano... Start Date: 02/28/22 Status:OrderedClaritin-D 24 Hour 10-240 MG (1 source)Start: 40-71-4795zlce 10-240 mg by mouth once dailyClaritin-D 24 Hour 10-240 MG 1 tablet Orally Once a day for 30 days May, Active cyclobenzaprine hydrochloride 10 mg oral tablet (1 source)Muscle RelaxantStart: 12-03-2024 End: 74-60-2346bopi 1 tablet by mouth three times daily as needed for muscle spasmscyclobenzaprine (FLEXERIL) 10 MG tablet Take 1 tablet by mouth 3 times daily as needed for Muscle spasms 21 tablet 12/03/2024 12/13/2024 Active dexamethasone 1 mg/ml / neomycin 3.5 mg/ml / polymyxin b 73256 unt/ml ophthalmic suspension (1 source)Aminoglycoside Antibacterial, Polymyxin-class Antibacterial, CorticosteroidStart: 10-52-3457hflz 2 drop(s) into the eye(s) four times daily Maxitrol 3.5-41507-0.1 2 drops into affected eye Ophthalmic Four times a day for 4 days Nov, Active0.4 ml enoxaparin sodium 100 mg/ml prefilled syringe (1 source)Low Molecular Weight HeparinStart: 96-44-3287omyonf 40 mg by subcutaneous injection once daily40 [...] 30 days ActiveLexapro ActiveFish Oils (2 sources)Start: 19-12-6925Jyasg-3 Fish Oil 1000 mg oral capsule mg cap(s), Oral, Refills(s) 0 Start Date: 04/27/25 Status: Ordered Repeat number: 1 fluticasone propionate 0.05 mg/actuat metered dose nasal spray (10 sources)CorticosteroidStart: 06-13-2024 End: 20-24-3727afiu 2 spray(s) nasal route once daily as [...] DAILY Complies with drug therapyStart: 04-06-2021 End: 75-90-8512uhgk 1 tablet by mouth once dailyLosartan-Hydrochlorothiazide 50- 12.5 mg tablet Discontinued 1 TAB PO Daily January 08, 2024 12:00amSept2023 8:39lyG7-F4 5000 125 mcg (5000 intl units)-90 mcg oral capsule (2 sources)Start: 52-59-8702P8-D3 5000 125 mcg (5000 intl units)-90 mcg oral capsule cap(s), Oral, Refill(s) 0 Start Date: 04/27/25 Status: Ordered Repeat number: 11 ml ketorolac tromethamine 15 mg/ml cartridge (1 source)Nonsteroidal Anti-inflammatory Drug, Cyclooxygenase InhibitorStart: 12-01-2024 End: 62-86-751404 mg, IntraVENous, EVERY 6 HOURS PRN, Starting on Sun12/01/24 at 0651, Until 12/06/24 at 0650, Pain Moderate (4-6), Do not administer for more than 5 days.lidocaine 0.04 mg/mg medicated patch (1 source)Antiarrhythmic, Amide Local AnestheticStart: patch, TransDERmal, Administer over 12 Hours, DAILY, First dose on Sun12/01/24 at 0900, Apply patch to back. The ad taker's recommendations for the number of patches that can be applied within a 24-hour period varies from 1 to 4 times daily and the duration of application varies from 8 to 24 hours; refer to the ad taker's labeling for product-specific recommendations.24 hr loratadine 10 mg / pseudoephedrine sulfate 240 mg extended release oral tablet (2 sources)alpha-Adrenergic AgonistStart: 80-81-0435hizl 1 tablet by mouth every twenty-four hoursClaritin-D 24 Hour 10-240 MG 1 tablet Orally Once a day for 30 days May, ActiveLosartan Potassium-HCTZ (2 sources)Losartan Potassium-HCTZ Zqntko70 ml magnesium sulfate 40 mg/ml injection (1 source)Start: 25-97-1664gsttztFPPDPEVciwyv 4 mg oral tablet (13 sources)CorticosteroidStart: 12-03-2024 End: 47-10-2467rghwbtCXMXSSXpgvhv (MEDROL DOSEPACK) 4 MG tablet Take by mouth. 1 kit 12/03/2024 12/09/2024 ActiveStart: 12-08-2023 End: 72-86-2739jrhpkpEAEOMDMwokqv (Medrol Dospak) 4 MG tablets TAKE BY MOUTH DIRECTED ON PACKAGE 12/08/2023 06/05/2024 DiscontinuedStart: 71-96-0005Yztnnq 4 MG as directed Orally as directed for 6 days Nov, Xdoiop80 hr metoprolol succinate 25 mg extended release oral tablet (20 sources)beta-Adrenergic BlockerStart: 65-47-7046kfpn 1 tablet by mouth once dailyToprol XL 25 mg Tab-ER Oral, Daily, Refills(s) 0 Start Date: 06/10/25 Status: Ordered Repeat number:1Start: 10-02-2024 End: 82-17-2414qrfr 1 tablet by mouth once dailyMetoprolol Succinate 25 mg tablet extended release 24 hr Active 0 .ROUTE .COMPLEX March 30, 2025 5:07pm TAKE 1 TABLET BY MOUTH ONCE DAILY Complies with drug therapyStart: 10-02-2024 take 1 tablet by mouth once dailyMetoprolol Succinate 25 mg tablet extended release 24 hr Active 0 .ROUTE .COMPLEX September 9:46am TAKE 1 TABLET BY MOUTH DAILYStart: 05-24-2021 End: 71-11-4980hgox 1 tablet by mouth once dailyMetoprolol Succinate 25 mg tablet extended release 24 hr Discontinued 25 MG PO Daily January 08, 2024 12:00am October 02, 2024 10:47amtake 1 capsule by mouth once dailyMetoprolol Succinate 25 MG 1 capsule Orally Once a day ActiveMetoprolol Succinate Active ondansetron (ZOFRAN-ODT) disintegrating tablet 4 mg (1 source)Start: 84-75-5090kyvhqozpigk (ZOFRAN-ODT) disintegrating tablet 4 mg24 hr phentermine 7.5 mg / topiramate 46 mg extended release oral capsule (12 sources)Sympathomimetic Amine AnorecticStart: 05-62-8732qjyi 1 capsule by mouth once daily in the morningQsymia 7.5 mg-46 mg oral capsule, extended release Oral, qAM, Refill(s) 0 Start Date: 06/10/25 Status: Ordered Repeat number: 1Start: 65-35-0027twgz 1 capsule by mouth once daily in the morning Qsymia 7.5 mg-46 mg oral capsule, extended release cap(s), Oral, qAM, Refill(s) 0 Start Date: 02/21/22 Status: OrderedPotassium Chloride (20 sources)Start: 11-30-2024 End: 27-91-6515sbcsypjfz chloride 20 mEq/50 mL IVPB (Central Line)Start: 01-08-2024 End: 54-61-4881thtu 1 tablet by mouth once dailyPotassium Chloride 20 mEq tablet,ER particles/crystals Discontinued 0 .ROUTE .COMPLEX January 08, 2024 5:36pm June 13, 2024 5:24pm TAKE 1 TABLET BY MOUTH DAILYStart: 01-08-2024 End: 94-74-5409ublo 1 tablet by mouth once dailyPotassium Chloride 20 mEq tablet,ER particles/crystals Discontinued 20 MEQ PO Daily January 08, 2024 12:00am January 08, 2024 5:36pmStart: 35-74-0603mqho 1 tablet by mouth once dailyPotassium Chloride [...] ActivepredniSONE 20 mg oral tablet (1 source)Start: 95-37-6815esne 1 tablet by mouth every twelve hourspredniSONE 20 MG 1 tablet Orally bid for 5 day(s) Jul, Gurvhx4761 ml sodium chloride 9 mg/ml injection (3 sources)Start: 43-12-3639Nbfkl: -40 mL, IntraVENous, EVERY 12 HOURS SCHEDULED [...] mL Midline or CentralLine = 20 mL/lumenStart: 95-48-5666sqvgynbwzvfwvqjg 800 mg / trimethoprim 160 mg oral tablet (9 sources)Dihydrofolate Reductase Inhibitor Antibacterial, Sulfonamide AntimicrobialStart: 43-08-8125gjba 1 tablet by mouth every twelve hoursBactrim DS 800-160 MG 1 tablet Orally Twice a day for 10 day(s) Nov, ActiveSuper B Complex oral tablet (2 sources)Start: 64-80-9180Ncddc B Complex oral tablet 1 tab(s), Oral, Daily, 90 tab(s), Refill(s) 0 Start Date: 04/27/25 Status: Ordered Quantity: 90.0 Unit: tab(s) Repeat number: 1 Completed/Discontinued Medications MedicationDrug Class(es)DatesSig (Normalized)Sig (Original)acetaminophen 325 mg / HYDROcodone bitartrate 5 mg oral tablet (4 sources)Opioid AgonistStart: 06-08-2025 End: 17-18-4765ypgq 1 tablet by mouth every six hours [...] mg oral tablet (11 sources)BenzodiazepineStart: 04-01-2025 End: 39-46-9891Izpxjiebww 0.25 mg tablet Discontinued 0 PO Once 2 April 01, 2025 5:02pm May 05, 2025 2:47pm 1-2 tablets taken 60 minutes prior to MRI Start: 06-23-2024 End: 30-50-1948blbg 1 tablet by mouth once daily as needed for anxietyAlprazolam 0.25 mg tablet Discontinued 0.25 MG PO Daily as needed for anxiety 07 24June 23, 2024 12:00am April 01, 2025 5:04pmamoxicillin 875 mg / clavulanate 125 mg oral tablet (4 sources)Penicillin-class AntibacterialStart: 05-05-2025 End: 79-26-6672weve 1 tablet by mouth twice dailyAmoxicillin-Pot Clavulanate 875-125 mg tablet Discontinued 1 TAB PO Twice daily 03 08May 05, 2025 12:00am June 08, 2025 8:35amazithromycin 250 mg oral tablet (17 sources)Macrolide AntimicrobialStart: 79-69-2360Pcgdqapvwfpf Active 0 PO .COMPLEX June 13, 2024 12:00am For 250 mg dose pack: take 500 mg today (day 1), then 250 mg for 4 days (days 2-5) POStart: 02-01-2024 End: 59-70-4474Ehjkeewfdkqe 250 mg tablet Discontinued 0 PO .COMPLEX June 13, 2024 12:00am October 2153:58pm For 250 mg dose pack: take 500 mg today (day 1), then 250 mg for 4 days (days 2-5) PO24 hr buPROPion hydrochloride 150 mg extended release oral tablet (20 sources)AminoketoneStart: 07-21-2024 End: 15-74-2444rhre 1 tablet by mouth once daily in the morningBupropion Hcl 150 mg tablet extended release 24 hr Discontinued 0 .ROUTE .COMPLEX July 21, 2024 8:43am May 05, 2025 2:47pm TAKE 1 TABLET BY MOUTH EVERY MORNINGStart: 73-34-5022uifi 1 tablet by mouth once daily in the morningBupropion Hcl 150 mg tablet extended release 24 hr Active 0 .ROUTE .COMPLEX July 21, 2024 7:4 3am TAKE 1 TABLET BY MOUTH EVERY MORNINGStart: 06-23-2024 End: 86-81-9876badz 1 tablet by mouth once daily in the morningBupropion Hcl (Wellbutrin Xl) 150 mg tablet extended release 24 hr Discontinued 150 MG PO Every morning June 23, 2024 12:00am July 21, 2024 8:43amStart: 98-02-8876zfke 1 tablet by mouth once dailybuPROPion HCl ER (SR) 150 MG Oral Tablet Extended Release 12 Hour Take 1 tablet by mouth daily Quantity: 60 Refills: 0 Ordered: 05-Jul-2021 DO Start : 04-Jul-2021 ActiveWellbutrin Not-TakingWellbutrin Activecefixime 400 mg oral capsule (3 sources)Cephalosporin AntibacterialStart: 05-20-2024 End: 30-99-0440ttwjyyww (Suprax) capsule 05/20/2024 06/05/2024 Discontinued doxycycline monohydrate 100 mg oral capsule (3 sources)Tetracycline-class DrugStart: 05-20-2024 End: 64-05-9624dlnmtykccwq (Monodox) 100 MG capsule 05/20/2024 06/05/2024 Discontinuedfluconazole 150 mg oral tablet (11 sources)Azole AntifungalStart: 67-99-2151Ociygidc 150 MG 1 tablet Orally as directed Take 1 tablet p.o. today, repeat in 7 days. Dec, Not-Taking/PRN gadoteridol (PROHANCE) injection 15 mL (1 source)Start: 12-02-2024 End: 05-73-4332khbu 1 dose intravenously once15 mL, IntraVENous, IMG ONCE PRN, 1 dose, Starting on Sun12/02/24 at 0829, Until Sun12/02/24 at 0830, Other1 ml LORazepam 2 mg/ml injection (15 sources)BenzodiazepineStart: 12-01-2024 End: 85-83-6960csnwel 1 dose intravenously once2 mg, IntraVENous, ONCE, 1 dose, On Sun12/01/24 at 1830, Immediately prior to intravenous use, lorazepam Injection must be diluted with at least an equal volume of compatible solution (NS or D5W)., Please retimed for 30 minutes prior to MRIStart: 01-08-2024 End: 92-57-3834sehs 1 tablet by mouth once daily as needed for anxietyLorazepam 0.5 mg tablet Discontinued 0.5 MG PO January 08, 2024 12:00am June 13, 2024 5:23pm 1/2 - 1 Orally Once a day PRN anxietyStart: 45-86-6082RQFvgpjfo 0.5 MG 1/2 - 1 Orally Once a day PRN anxiety for 30 days Sep, Active1 ml morphine sulfate 2 mg/ml cartridge (2 sources)Opioid AgonistStart: 12-01-2024 End: 84-63-4410ekpn 1 dose by mouth every hour1 mg, IntraVENous, ONCE, 1 dose, On Sun12/01/24 at 2300, If oral and IV narcotics ordered, use oralfirst and only use IV if oral is ineffective or cannot take oral. Do Not give oral and IV within 1 hour of each other unless specifically ordered.Start: 07-60-0590sdji 1 mg by mouth every four hours [...] 75 mg oral capsule (11 sources)Nitrofuran AntibacterialStart: 47-24-0907vwgf 1 capsule by mouth every twelve hoursMacrobid 100 MG 1 cap(s) Orally bid for 5 day(s) Dec, Not-Taking/PRNpantoprazole 40 mg delayed release oral tablet (20 sources)Proton Pump InhibitorStart: 01-08-2024 End: 96-34-1400nwsx 1 tablet by mouth once daily in the morningPantoprazole 40 mg tablet,delayed release (DR/EC) Discontinued 0 .ROUTE .COMPLEX January 08, 2024 5:36pm June 13, 2024 5:23pm TAKE 1 TABLET BY MOUTH EVERY MORNING ON AN EMPTY STOMACHStart: 01-08-2024 End: 63-61-1985iemh 1 tablet by mouth once daily in [...] MORNING ON AN EMPTY STOMACHStart: 01-08-2024 End: 24-84-0152xmly 1 tablet by mouth once dailyPantoprazole 40 mg tablet,delayed release (DR/EC) Discontinued 40 MG PO Daily January 08, 2024 12:00am January 08, 2024 5:36pmStart: 59-30-7095Mbklwynn 40 mg tablet Daily, Refills(s) 0 Start Date: 02/21/22 Status: Orderedtake 1 tablet by mouth once daily in the morningPantoprazole Sodium 40 mg TAKE 1 TABLET BY MOUTH EVERY MORNING ON AN EMPTY STOMACH for 30 ActivePantoprazole 40 mg tablet,delayed release (DR/EC) (2 sources)Start: 01-08-2024 End: 70-56-4063kdsm 1 tablet by mouth once daily in [...] mg oral tablet (13 sources)HMG-CoA Reductase InhibitorStart: 85-98-9395akyp 1 tablet by mouth once daily in the eveningRosuvastatin Calcium 10 MG Oral Tablet TAKE 1 TABLET BY MOUTH EVERY EVENING Quantity: 30 Refills: 0Ordered: 23-Sep-2021 DO Start : 24-May-2021 ActiveCrestor Not-Taking/PRNCrestor Not-TakingCrestor Active sulfacetamide sodium 100 mg/ml ophthalmic solution (12 sources)Sulfonamide AntibacterialStart: 02-01-2024 End: 00-88-3235buyz 1 drop(s) into the eye(s) four times dailySulfacetamide Sodium 10 % drops Discontinued 2 DROPS EYE-BOTH Four times daily 02 18January 312:00am June 13, 2024 5:24pmStart: 02-01-2024 End: 68-17-6005fith 1 drop(s) into the eye(s) four times dailySulfacetamide Sodium 10 % drops Discontinued 2 DROPS EYE-BOTH Four times daily 02 18January 301:00pm June 13, 2024 4:24pmStart: 02-01-2024 End: 13-43-3732taoj 1 drop(s) into the eye(s) four times dailySulfacetamide Sodium Discontinued 2 DROPS EYE-BOTH Four times daily 02 18February 01, 2024 12:00am June 13, 2024 5:24pmStart: 87-96-9160qhmo 2 drop(s) into the eye(s) four times dailySulfacetamide Sodium 10 % 2 drops Ophthalmic qid for 7 days May, ActivetiZANidine 4 mg oral tablet (1 source)Central alpha-2 Adrenergic AgonistStart: 12-01-2024 End: 51-05-4520gube 1 dose by mouth once4 mg, Oral, ONCE, 1 dose, On Sun12/01/24 at 2300traMADol hydrochloride 50 mg oral tablet (5 sources)Opioid AgonistStart: 12-04-2024 End: 15-27-9719huuv 1 tablet by mouth every eight hours as needed for pain Tramadol 50 mg tablet Discontinued 50 MG PO Every 8 hours as needed for pain 11 05December 04, 2024 1:00am May 05, 2025 2:47pmtriamcinolone acetonide 40 mg/ml injectable suspension (16 sources)CorticosteroidStart: 56-95-6910Kuswiaq-40 Aug, 60 mgStart: 54-41-4015Xfloiwg-40 Apr, 40 mgzolpidem tartrate 5 mg oral tablet (17 sources)gamma-Aminobutyric Acid-ergic AgonistStart: 10-21-2024 End: 82-34-1882yset 1 tablet by mouth once daily at bedtime as needed for sleep Zolpidem 5 mg tablet Discontinued 5 MG PO Daily at bedtime as needed for sleep February 13, 2025 11:50am June 08, 2025 8:52am Problems Active Problems Problem ClassificationProblemDateDocumented DateEpisodic/ChronicAcquired foot deformities (1 source)Foot drop, right footEpisodicAnxiety disorders (20 sources)Generalized anxiety disorder; Translations: [Generalized anxiety disorder]04-42-3479OqhjarcWvvtxhnjs-deficit, conduct, and disruptive behavior disorders (3 sources)Attention deficit hyperactivity disorder, predominantly inattentive type; Translations: [Attention deficit disorder of childhood without mention of hyperactivity]Onset: 78-40-3201FheazfsClemqac tract disease (2 sources)Gallstone; Translations: [Calculus of gallbladder without cholecystitis without obstruction]Onset: 833158-32-0517GwsmtvasSxkqly of kidney and renal pelvis (2 sources)Malignant tumor of kidney; Translations: [Malignant neoplasm of unspecified kidney, except renal pelvis]Onset: 60-07-2537NzrgyefJvhmmjf dysrhythmias (3 sources)Nonsustained ventricular tachycardia ; Translations: [Paroxysmal ventricular tachycardia]ChronicCardiac dysrhythmias (20 sources)Palpitations; Translations: [Palpitations]97-86-2843Srtapkwp Conditions associated with dizziness or vertigo (15 sources)Dizziness; Translations: [Dizziness and giddiness]EpisodicDeficiency and other anemia (9 sources)Anemia; Translations: [Anemia, unspecified]18-31-6155CcxaeztyHjhvtzqu mellitus without complication (14 sources)Impaired fasting glycemia; Translations: [Impaired fasting glucose] Onset: 97-36-1644ZemruyzsLnfcqdptha disorders (8 sources)Esophageal reflux finding; Translations: [Esophageal reflux]Onset: 16-94-9154LmrxtzyLuytxlvvan disorders (8 sources)Esophageal disorders; Translations: [Gastroesophageal reflux disease with esophagitis without hemorrhage]Essential hypertension (20 sources)Hypertensive disorder; Translations: [Unspecified essential hypertension]Onset: 536556-39-7794SackruiXdwni and electrolyte disorders (14 sources)Hypokalemia; Translations: [Hypokalemia]Onset: 65-03-1710Lmzpssce Genitourinary symptoms and ill-defined conditions (11 sources)Retention of urine; Translations: [Retention of urine, unspecified] Onset: 01-01-2022 Resolved: 56-31-8868DkoobebcSaxqrsij; including migraine (13 sources)Migraine with aura; Translations: [Migraine with aura, not intractable, without status migrainosus]ChronicHeadache; including migraine (1 source)Headache; including migraine; Translations: [HEADACHE UNSPECIFIED] Onset: 57-93-4627Rsvqedvvkqxd; infection of eye (except that caused by tuberculosis or sexually transmitteddisease) (17 sources)Allergic dermatitis of unspecified eye, unspecified eyelid; Translations: [Contact or allergic eyelid dermatitis]Onset: 48-20-1586Arpzzogw Influenza (3 sources)Upper respiratory tract infection due to Influenza; Translations: [Influenza due to unidentified influenza virus with other respiratory manifestations]EpisodicMiscellaneous mental health disorders (20 sources)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; 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] 47-98-8503NsqfhdvPcel disorders (20 sources)Mild recurrent major depression; Translations: [Major depressive disorder, recurrent, mild]Onset: 08-24-2015 Resolved: 53-31-7472DcablxuRqydc connective tissue disease (1 source)Pain in right foot; Translations: [PAIN IN RIGHT FOOT]Onset: 79-54-5369OzfcgsbyWudvo diseases of bladder and urethra (4 sources)Urethral stricture; Translations: [Unspecified urethral stricture, female]Onset: 89-52-7252KdimprdkHaoni diseases of kidney and ureters (12 sources)Renal mass; Translations: [Other specified disorders of kidney and ureter]Onset: 254473-59-5960OlqpzazPmxhsgv on above:CT: 1.5cm right renal mass - T: 1.5cm right renal mass - 11/2024MRI: 1.7cm right renal mass - 04/2025Other diseases of kidney and ureters (1 source)Other specified disorders of kidney and ureter; Translations: [Unspecified disorder of kidney and ureter]74-83-8521OrxlmbeNodfc diseases of kidney and ureters (1 source)Disorder of kidney and/or ureter; Translations: [Other specified disorders of kidney and ureter]Onset: 02-54-0676CcspcruAdeez endocrine disorders (13 sources)Disorder of endocrine system; Translations: [Endocrine disorder, unspecified]Onset: 01-56-9105BytsujuyQjlci endocrine disorders (5 sources)Endocrine disorder, unspecified; Translations: [ENDOCRINE DISORDER UNSPECIFIED]Onset: 06-05-4608NrtzjudwWglrg gastrointestinal disorders (5 sources)Constipation; Translations: [Constipation, unspecified]06-08-2025 EpisodicOther liver diseases (4 sources)Fatty (change of) liver, not elsewhere classified; Translations: [Metabolic dysfunction-associated steatotic liver disease (MASLD)]06-08-2025 ChronicOther nervous system disorders (7 sources)Common peroneal nerve paralysis; 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, right lower limb]ChronicOther non-traumatic joint disorders (4 sources)Pain in right ankle and joints of right foot; Translations: [PAIN IN RIGHT ANKLE]Onset: 93-49-5289UontixjbEvgfy nutritional; endocrine; and metabolic disorders (15 sources)Obesity; Translations: [Obesity, unspecified]ChronicOther nutritional; endocrine; and metabolic disorders (3 sources)Simple obesity ; Translations: [Other obesity due to excess calories] Onset: 96-54-0237WtssgnkMpxku nutritional; endocrine; and metabolic disorders (6 sources)Body mass index 30+ - obesity; Translations: [Body mass index 31.0- 31.9, adult]Onset: 06-88-5402YhnoqidLunzl nutritional; endocrine; and metabolic disorders (3 sources)Obese class I; Translations: [Body mass index 32.0-32.9, adult]Onset: 97-82-5876YwlrsyvZokao nutritional; endocrine; and metabolic disorders (1 source)Overweight in adulthood with body mass index of 25 or more but less than 30; Translations: [Overweight]EpisodicOther screening for suspected conditions (not mental disorders or infectious disease) (20 sources)Electrocardiogram abnormal; Translations: [Nonspecific abnormal electrocardiogram [ECG] [EKG]]Onset: 11-30-2022 Resolved: 16-35-3851QjjfnlthLogtw skin disorders (13 sources)Vesicular eczema of hands and/or feet; Translations: [Dyshidrosis [pompholyx]]EpisodicOther upper respiratory disease (17 sources)Seasonal allergic rhinitis; Translations: [Other seasonal allergic rhinitis]ChronicOther upper respiratory disease (3 sources)Other seasonal allergic rhinitisChronicOther upper respiratory disease (3 sources)Allergic rhinitis; Translations: [Allergic rhinitis, unspecified] Onset: 90-85-4315KhupelcVzjfa upper respiratory disease (2 sources)Seasonal allergy; Translations: [Other seasonal allergic rhinitis] ChronicOther upper respiratory infections (20 sources)Acute sinusitis, unspecified; Translations: [Acute pharyngitis] Onset: 09-08-2013 Resolved: 38-87-3973YrqrpqzfSzbokabdwh disorders (not diabetes) (4 sources)Gallstone acute pancreatitis; Translations: [Biliary acute pancreatitis without necrosis or infection]Onset: 069523-71-4145Avwoheds Residual codes; unclassified (1 source)Acquired absence of other specified parts of digestive tract; Translations: [Other acquired absenceof organ]77-44-7668HwdpcmguTljfbkkpylm; intervertebral disc disorders; other back problems (8 sources)Cervicalgia; Translations: [Low back pain]Onset: 79-79-8875Bwddoahd Sprains and strains (6 sources)Neck sprain; Translations: [Neck sprain and strain]Onset: 01-09-2019 EpisodicUnclassified (3 sources)Other ventricular tachycardia; Translations: [Other ventricular tachycardia]Urinary tract infections (10 sources)Urinary tract infectious disease; Translations: [Urinary tract infection, site not specified]Onset: 01-01-2022 Resolved: 90-05-0452Vqciwrjf Past or Other Problems Problem ClassificationProblemDateDocumented DateEpisodic/ChronicAbdominal pain (3 sources)Abdominal pain; Translations: [Unspecified abdominal pain]Onset: 62-16-0553DvlvqhbyHldrftswh infection; unspecified site (3 sources)Bacterial infectious disease; Translations: [Bacterial infection, unspecified, in conditions classified elsewhere and of unspecified site]Onset: 53-85-6796TmjntmxzQconapzn; including migraine (6 sources)Idiopathic stabbing headache; 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]Onset: 01-09-2019 Resolved: 96-56-8262PvmrasefDoprggmkyljoe and screening for infectious disease (4 sources)Contact with and (suspected) exposure to other viral communicable diseases; Translations: [Contact with and (suspected) exposure to other viral communicable diseases Z20.828]Onset: 08-03-2021 Resolved: 48-85-1522NegyvlbeHkroonxgcbmu diseases of female pelvic organs (2 sources)Acute vaginitis; Translations: [Acute vaginitis]15-77-1580Knmzqzro Malaise and fatigue (3 sources)Fatigue; Translations: [Other fatigue]Onset: 02-01-2022 Resolved: 05-74-7806DjrsxlvuSlvxkxzcuewnr mental health disorders (3 sources)Emotional state finding; Translations: [Other symptoms and signs involving emotional state] Resolved: 89-32-8346WgowfuzrWmhpcy and vomiting (3 sources)Nausea and vomiting; Translations: [Nausea with vomiting, unspecified]Onset: 11-50-5922VxjknfdcSyhan aftercare (1 source)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; Translations: [OTH 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 SUPERVISOR CURRENT DRUG THERAPY]Onset: 79-18-6769WjhhltwfNxxiy connective tissue disease (1 source)Cramp and spasm; Translations: [CRAMP AND SPASM]Onset: 07-18-2022 EpisodicOther connective tissue disease (3 sources)Spasm; Translations: [Spasm of muscle]Onset: 74-07-5981UijocbooIpmrf endocrine disorders (4 sources)Other specified endocrine disorders; Translations: [OTHER SPECIFIED ENDOCRINE DISORDERS]Onset: 47-17-6197AckslvidSusbu lower respiratory disease (3 sources)Dyspnea; Translations: [Shortness of breath] Resolved: 13-40-0286PmyvxhplGbosc nutritional; endocrine; and metabolic disorders (3 sources)Abnormal weight gain; Translations: [Abnormal weight gain]Onset: 13-43-9195ZvhgjljoBaszi nutritional; endocrine; and metabolic disorders (3 sources)Overweight; Translations: [Overweight]Onset: 45-83-5920DlrmrtksEjfbh nutritional; endocrine; and metabolic disorders (3 sources)Body mass index 25-29 - overweight; Translations: [Body mass index 28.0-28.9, adult]Onset: 36-51-5085XvrzlbgbSkwph skin disorders (3 sources)Sebaceous cyst; Translations: [Sebaceous cyst]Onset: 02-25-2015 EpisodicOtitis media and related conditions (7 sources)Eustachian tube salpingitis; Translations: [Unspecified Eustachian salpingitis, right ear]Onset: 12-26-2017 Resolved: 99-15-1691MlwenayyCcvvmmzv codes; unclassified (15 sources)Postmenopausal state; Translations: [Asymptomatic menopausal state] Onset: 789758-31-6087RhdblzpxYyoixxjc codes; unclassified (6 sources)History of partial nephrectomy; Translations: [Acquired absence of kidney]Onset: 218114-61-9422XadxzxkiZybwjkbxtyzy (2 sources)Never smoked tobacco; Translations: [Never a smoker]Unclassified (9 sources)NSVT (nonsustained ventricular tachycardia); Translations: [NSVT (nonsustained ventricular tachycardia)]Unclassified (1 source)Contact with and (suspected) exposure to covid-19 Z20.822Unclassified (3 sources)General observation; Translations: [Observation following other accident]Onset: 72-48-1178Aattm infection (1 source)COVID-19 Results Test NameValueInterpretationReference RangeFacilityAmbulatory Visit Summaryon 35-84-2954Rddbfowmrz Visit SummaryAmbulatory Visit Summary JENNIFER ZAMORA :1970 [...] Complex oral tablet) omega-3 polyunsaturated fatty acids (Arcola-3 Fish Oil 1000 mg oral capsule) phentermine-topiramate [...] Mckay, URL, URO When: Where: [address] [place] [address] [phone] You Need to Complete the Following Comprehensive [...] No, Renal cell carcinoma, pp_set_radiology_subspecialty, [facility] [place] Medications What How Much When Instructions Unchanged [...] or concerns Unchanged omega-3 polyunsaturated fatty acids (Arcola-3 Fish Oil 1000 mg oral capsule) By [...] signed up for this yet, please contact [employer] at [phone] to get signed up today. Language Information Language assistance services are available as needed. [facility] Office/Clinic Noteon 90-71-6220Extfjjw Office/Clinic NoteUrology Office/Clinic Note Chief Complaint 2 [...] Information Audie MADERA, Rosmery Mckay, URL, [facility] [address] [place] [address]- [phone] Additional Instructions: 3 mos w/ CT Abd [...] Tab, 25 mg= 1 tab(s), Oral, Daily Arcola-3 Fish Oil 1000 mg oral capsule, Oral [...] Results Bilirubin Urine Dipst (more content not included)...[facility] SouthwoodsComment on above:Result Comment: Electronically Signed By: Rosmery Bronson MD\.br\Date and Time Signed: 06/18/25 10:42EDT\.br\Electronically Co-Signed By: Katie Mccoy\.br\Date and Time Co-Signed: 06/18/25 09:25 EDTSurgical Pathology Reporton 59-11-1679Xxmibrjl Pathology Report[address] [place] [address]- Surgical Pathology Report Collected Date/Time: 06/02/2025 15:00 [...] characteristics were determined by the Laboratory of [facility] Surgical Pathology. They have not been [...] recognition technology and might contain unintended computerized inpatient pharmacist errors. Microscopic examination performed unless gross only specified. Quality was accessed and acceptable.NormalNorwalk Memorial HospitalComment on above:Performed By: #### [id number] #### [facility] [address], [place] [address]Vunnbxnygd - Chemistry and Chemistry - challengeOrdered By: Grady Das on 84-94-4085Bjobahneg Ql (U)NegativeNEGFirelands Regional Medical CenterGlucose (U) [Mass/Vol]NegativeNEGFirelands Regional Medical CenterKetones Ql (U)NegativeNEGFirelands Regional Medical CenterpH (U)6.0 [pH]5.0-9.0[facility]cyrus Hospitalpecific gravity (U) [Rel density] 1.0101.005-1.025[facility] Lutheran HospitalUrobilinogen Qn (U)0.2 {Ciara'U}/dL0.2-1.0[facility] HospitalLaboratory - Specimen informationOrdered By: Grady Das on 99-37-7329Fjpfifffyk (U)CLEARCLEAR [facility] HospitalColor (U)LT. YELLOWYELLOWCleveland Clinic Lutheran HospitalLaboratory - UrinalysisOrdered By: Grady Das on 06-08-2025 Leukocyte esterase Test strip Ql (U)NegativeNEGFirelands Regional Medical CenterMucus Ql (Urine sed)NONE SEENNONE [facility] Nitrite Ql (U)NegativeNEGFirelands Regional Medical CenterProtein Ql (U) NegativeNEG/TRACECleveland Clinic Lutheran HospitalNo Panel InformationOrdered By: Grady Das on 60-10-4576Sawyw BacteriaNONE SEEN #/HPFNONE [facility] HospitalUrine Occult BloodSMALLAbnormalNEGATIVECleveland Clinic Lutheran HospitalUrine Other CastsNONE SEEN #/LPFNONE SEENCleveland Clinic Lutheran HospitalUrine Other CrystalsNone Seen #/HPFNone [facility] HospitalUrine RBC0-2 #/HPF0-2FOhio Valley Surgical HospitalUrine Squamous Epithelial CellsNONE SEEN #/LPFNONE/RARECleveland Clinic Lutheran HospitalUrine WBC0-2 #/HPFAbnormalNONE SEENCleveland Clinic Lutheran HospitalUrine Cultureon 47-32-6288Ntnywxnz identified Cx Nom (U)No Growth 2 Days PERFORMED BY: [facility] [address] [place] [address] PATHOLOGIST CROP QUANTITATIVE GENETICIST KELLEY KOWALSKI M.D.NormalHca Florida Largo Hospital Physician GroupComment on above: Performed By: #### CUU #### [facility] [address] [place] [address] USAUrine cultureOrdered By: Grady Das on 06-08-2025 Bacteria identified Cx Nom (U)No Growth 2 DaysCleveland Clinic Lutheran Hospital BMPon 72-74-1783Pieqx gap [Moles/Vol]9 mmol/LNormal6-16[facility]walk [facility] HospitalComment on above:Performed By: #### [id number] #### [facility] [address], [place] [address]JBT/Creat Ratio26 No TgebrVcgu94-09LinowqNorwalk Memorial Hospital Comment on above:Performed By: #### [id number] #### [facility] [address], [place] [address]Kjjgixl [Mass/Vol]8.6 mg/dLLow8.9-11.1FMedina HospitalComment on above:Performed By: #### [id number] #### [facility] [address], [place] [address]Slvyoguv [Moles/Vol]103 mmol/TOtnsqd155-681EscskfNorwalk Memorial HospitalComment on above:Performed By: #### [id number] #### [facility] [address], [place] [address]RU1 [Moles/Vol]27 mmol/PRfdhnl26-54PnzdoiNorwalk Memorial Hospital Comment on above:Performed By: #### [id number] #### [facility] [address], [place] [address]Qfqrkpsqrd [Mass/Vol]0.7 mg/dLNormal0.5-1.3FMedina HospitalComment on above:Performed By: #### [id number] #### [facility] [address], [place] [address]Hlxifjv [Mass/Vol]100 mg/aHLotvay66-262StgqxiNorwalk Memorial HospitalComment on above:Performed By: #### [id number] #### [facility] [address] [place] [address]Lkqxcetwb [Moles/Vol]4.2 mmol/LNormal3.5-5.3FMedina HospitalComment on above:Performed By: #### [id number] #### [facility] [address] [place] [address]Cwenhs [Moles/Vol]135 mmol/RWuzurd056-917HudjusNorwalk Memorial HospitalComment on above:Performed By: #### [id number] #### [facility] [address] [place] [address]Efpz nitrogen [Mass/Vol]18 mg/dLNormal5-21Norwalk Memorial HospitalComment on above:Performed By: #### [id number] #### [facility] [address], [place] [address]BJW w/ Auto Diffon 80-24-0316Ydrsgpsc Absolute0.0 E9/LNormal 0.0-0.2FMedina HospitalComment on above:Performed By: #### [id number] #### [facility] [address], [place] [address]Eelguzbuu/100 WBC (Bld)0.1 %Normal0.0-2.0Norwalk Memorial HospitalComment on above:Performed By: #### [id number] #### [facility] [address], [place] [address]Nbu Absolute0.0 E9/LNormal0.0-0.5FMedina Hospital Comment on above:Performed By: #### [id number] #### [facility] [address] [place] [address]Boytxymipiy/100 WBC (Bld)0.0 %Normal0.0-8.0Norwalk Memorial HospitalComment on above:Performed By: #### [id number] #### [facility] [address] [place] [address]Czuoptmkaki distribution width (RBC) [Ratio]12.9 %Normal 10.9-14.2FMedina HospitalComment on above:Performed By: #### [id number] #### [facility] [address] [place] [address]Kmdmigloxs (Bld) [Volume fraction]37.2 %Alyqyr99.0-46.0Norwalk Memorial HospitalComment on above:Performed By: #### [id number] #### [facility] [address] [place] [address]Hkpzywfhoc (Bld) [Mass/Vol]13.0 g/gZZkyntu61.0-16.0[facility] HospitalComment on above:Performed By: #### [id number] #### [facility] [address] [place] [address]Sdagb Absolute1.1 E9/LNormal1.0-4.0[facility] Comment on above:Performed By: #### [id number] #### [facility] [address] [place] [address]Fxmlnlwjomg/100 WBC (Bld)11.8 %Low14.0-50.0Norwalk Memorial HospitalComment on above:Performed By: #### [id number] #### [facility] [address] [place] [address]CST (RBC) [Entitic mass]31.8 ncMhkrjz73.0-34.0[facility]walk Memorial HospitalComment on above:Performed By: #### [id number] #### [facility] [address], [place] [address]TBLP (RBC) [Mass/Vol]35.0 g/kHHswcsd79.4-36.0[facility] HospitalComment on above:Performed By: #### [id number] #### [facility] [address], [place] [address]ZUN (RBC) [Entitic vol]90.8 qIZimqnf29.0-100.0[facility] Memorial HospitalComment on above:Performed By: #### [id number] #### [facility] [address], [place] [address]Vjur Absolute0.6 E9/LNormal0.2-1.0[facility] Comment on above:Performed By: #### [id number] #### [facility] [address], [place] [address]Xjnbcqlqm/100 WBC (Bld)6.9 %Normal4.0-14.0[facility] Memorial HospitalComment on above:Performed By: #### [id number] #### [facility] [address], [place] [address]Istggb Absolute7.4 E9/LNormal2.0-7.5FMedina Hospital Comment on above:Performed By: #### [id number] #### [facility] [address], [place] [address]Azafjy Auto81.2 %High36.0-75.0[facility] Comment on above:Performed By: #### [id number] #### [facility] [address], [place] [address]Yneazahv911.0 E9/QAagcug603.0-500.0[facility] Comment on above:Performed By: #### [id number] #### [facility] [address], [place] [address]Dtzrffpv mean volume (Bld) [Entitic vol]7.8 fLNormal6.4-10.8 [facility] HospitalComment on above:Performed By: #### [id number] #### [facility] [address], [place] [address]KJM1.1 E12/LLow4.3-5.9[facility] HospitalComment on above:Performed By: #### [id number] #### [facility] [address], [place] [address]KYT1.1 E9/LNormal4.0-11.0[facility] Memorial HospitalComment on above:Performed By: #### [id number] #### [facility] [address], [place] [address]Ohfobxwfa Note-Nursingon 86-57-9793Ogealmkvb Note-Nursing Discharge Note-Nursing JENNIFER ZAMORA :1970 Visit [...] physician. This Is Your Medications List acetaminophen-hydrocodone (Vernon 325 mg-5 mg oral tablet) aspirin (Aspirin Low Dose) cholecalciferol-menaquinone (K2-D3 5000 125 mcg (5000 intl units)-90 mcg oral capsule) hydrochlorothiazide-losartan (hydrochlorothiazide-losartan 12.5 mg-50 mg Tab) metoprolol (metoprolol succinate 25 mg ER Tab) multivitamin (Super B Complex oral tablet) omega-3 polyunsaturated fatty acids (Arcola-3 Fish Oil 1000 mg oral capsule) zolpidem [...] MADERA, Rosmery Mckay Where: [facility] [address], [address] [place] [address]- New Follow Up Appointments after Discharge Follow Up with GRADY DAS When: 06/08/2025 08:30 AM EDT Where: [address] [facility], [place] [address]- Business (1) Follow Up with Rosmery Bronson When: Comments: Office to schedule your follow up in 2 weeks for pathology review and postop check Where: [address], [place] [facility] [address] [place] [phone] Business (1) Medications What How Much When Why Instructions Next Dose New acetaminophen-hydrocodone (Vernon 325 mg-5 mg oral tablet) 2 Tablets By Mouth Every 4 hours as needed for as needed for pain Acute post-operative pain Renal mass, right Duration: 3 Days Take 1-2 tabs every 4 hours as needed for moderate to severe pain. Not to exceed 8 tablets/ day Pickup at [facility]/pharmacy #[id number] 06/03/25 4:20pm Unchanged aspirin (Aspirin Low [...] day Resume Unchanged omega-3 polyunsaturated fatty acids (Arcola-3 Fish Oil 1000 mg oral capsule) By Mouth Resume Unchanged zolpidem (zolpidem 5 mg Tab) Resume Pharmacy Information [facility]/pharmacy #[id number]: [address] [place] [place], [place] [phone] Test Results CBC BMP WBC: 9.1 E9/L [...] to care for y (more content not included)...[facility]woodsInpatient Clinical Summaryon 11-88-9089Ytsknimtg Clinical SummaryInpatient Clinical Summary [address] [address] Clinical Summary Person Information: Name: JENNIFER ZAMORA Age: 54 Years : 1970 Sex: Female PCP: GRADY DAS DO Marital Status: Race: White Ethnicity: Non- or Language: Palauan Visit Id: Visit Reason: RENAL MASS Speciality: Acuity: Enc Type: Outpatient in a Bed Med Service: Surgery Arrival: 06/02/2025 07:30:02 Discharge: Dispo Type: Address: [address] [place] [phone] Provider Notes: Patient: JENNIFER ZAMORA Age: 54 [...] % HI Lymph Auto 11.8 % LOW Lares Auto 6.9 % Eos Auto 0.0 % Basophil Auto 0.1 % Neutro Absolute 7.4 E9/L Lymph Absolute 1.1 E9/L Lares Absolute 0.6 E9/L Eos Absolute 0.0 E9/L [...] Documented This Visit Final Med List: acetaminophen-hydrocodone (Vernon 325 mg-5 mg oral tablet) 2 Tablets [...] ER Tab) 1 Tab (more content not included)...[facility]woodsInpatient Patient Summaryon [id number] Patient SummaryInpatient Patient Summary [place] [address] Patient Discharge Instructions PERSON INFORMATION Name: JENNIFER [...] With: Address: When: GRADY DAS [address] [place], [place] [phone] Business (1) 06/08/2025 8:30 AM With: Address: When: Rosmery Audie [address] [place] [address], [address] [phone] Business (1) Comments: Office to schedule your follow up in 2 weeks for pathology review and postop check In the event that this physician does not participate in your insurance network, please consult with your insurance company to find a nearby participating provider. Type Location Start [facility] Office Visit [facility] 06/18/2025 8:45 AM 06/18/2025 9:00 AM Confirmed Comment: EMILY Morales LIBBY L, have received the attached patient education materials/instructions and have verbalized understanding: Patient Signature Date Clinican/Nurse Signature Date HERE ARE THE MEDICATION CHANGES THAT OCCURRED DURING YOUR HOSPITAL STAY New Medications [id number], [address], [place] [id number], [phone] acetaminophen-hydrocodone (Vernon 325 mg-5 mg oral tablet) 2 Tablets [...] Dose: Next Dose: omega-3 polyunsaturated fatty acids (Arcola-3 Fish Oil 1000 mg oral capsule) By Mouth. Last Dose: Next Dose: zolpidem (zolpidem 5 mg Tab) Last Dose: Next Dose: Comment: MEDICATION LIST PROVIDED FOR YOU IS A LIST OF YOUR CURRENT MEDICATIONS. PLEASE CARRY THIS WITH YOU AT ALL TIMES. acetaminophen-hydrocodone (Vernon 325 mg-5 mg oral tablet) 2 Tablets [...] Mouth every day. omega-3 polyunsaturated fatty acids (Arcola-3 Fish Oil 1000 mg oral capsule) By Mouth. zolpidem (zolpidem 5 mg Tab) Pharmacy Information: Comment: (more content not included)...[facility] SouthwoodsInterdisciplinary Note - Case Manageron 95-84-7549Ewhzfvfueocdhnqup Note - Charrer Interdisciplinary Note - Charrer Patient is awake and alert in bed, previously rounded with Urology. Patient is up in chair, feelingbetter. States her Dr will call to check on her this afternoon, and plan to DC home later today. Patient is independent at home with spouse and he will transport at [place]. Declines any concerns or DC needs. CRM following. . PCP verified and insurance information reviewed and DME discussed. Contact information provided and white board updated.[facility] Hospital [facility] SouthwoodsComment on above:Result Comment: Electronically Signed By: Cathleen FLORENTINO, Yaneth\.alan\Date and Time Signed: 06/03/25 09:39 EDTMain OR Intraoperative Recordon [id number] OR Intraoperative RecordMain OR Intraoperative Record IntraOp Document Type FT Summary Primary Physician: Rosmery Bronson MD Finalized Date/Time: 06/03/25 09:35:39 Pt. Name: JENNIFER ZAMORA.O.B./Sex: 1970 Female Med Rec #: [id number] Physician: Rosmery Bronson MD Financial #: [id number] Pt. Type: O Room/Bed: N317/01 Admit/Disch: 06/02/25 [...] AT 1457. SURGEON AT [employer] FROM [phone].MISHEL SUMMERS. CLAMP TIME FROM [id number], 24 MINS AND 25 SECONDS.MISHEL SUMMERS. Case Attendance FT Entry 1 Entry 2 Entry 3 Case Attendee Mariajose [facility], Dawson Bronson MD, Shalini Balderas Role Performed Anesthesiologist Surgeon - Primary Radiological Equipment Specialist - Primary Senior Audit Manager Time In 06/02/25 09:43:00 06/02/25 09:43:00 06/02/25 09:43:00 Time Out 06/02/25 14:21:00 06/02/25 15:25:00 06/02/25 15:25:00 Procedure NEPHRECTOMY PARTIAL, NEPHRECTOMY PARTIAL, NEPHRECTOMY PARTIAL, ROBOT ASSISTED(Right) ROBOT ASSISTED(Right) ROBOT ASSISTED(Right) Comments IS SUPERVISING OUT FOR LUNCH 1240- Last Modified By: Shalini Tarango Kelsie E Burgderfer, Kelsie E 06/02/25 15:31:27 06/02/25 15:31:27 06/02/25 15:31:27 Entry 4 Entry 5 Entry 6 Case Attendee Moy MICROBIOLOGY ANALYST, Porsha Singh MICROBIOLOGY ANALYST, Fang Denny RN, Connie E Role Performed Scrub - Primary MICROBIOLOGY ANALYST/SA Radiological Equipment Specialist - Relief Time In 06/02/25 09:43:00 06/02/25 [...] Case Attendee Francisco DRISCOLL, Veronika Baxter DNP, BULL FIDDLE PLAYER, [place] Role Performed MICROBIOLOGY ANALYST/SA Scrub - Relief BULL FIDDLE PLAYER Time In 06/02/25 12:49:00 06/02/25 12:50:00 06/02/25 14:20:00 Time Out 06/02/25 14:04:00 06/02/25 13:51:00 06/02/25 14:57:00 Procedure NEPHRECTOMY PARTIAL, NEPHRECTOMY PARTIAL, NEPHRECTOMY PARTIAL, ROBOT ASSISTED(Right) ROBOT ASSISTED(Right) ROBOT ASSISTED(Right) Comments LUNCH RELIEF FOR IS SUPERVISING ZHENG,MICROBIOLOGY ANALYST/SA Last Modified By: Shalini Tarango Kelsie E Burgderfer, Kelsie E 06/02/25 15:31:27 06/02/25 15:31:27 06/02/25 15:31:27 Entry 10 Case Attendee Yoselin Jacobs CRNA Role Performed BULL FIDDLE PLAYER Time In 06/02/25 14:53:00 Time Out 06/02/25 15:25:00 Procedure NEPHRECTOMY PARTIAL, ROBOT ASSISTED(Right) Comments IS SUPERVISING Last Modified By: Shalini Tarango 06/02/25 15:31:27 General Comments: TRENA ANDINO,FORMERLY [facility], [facility], IN ATTENDANCE.MISHEL SUMMERS. Perioperative [...] Surgeon Audie Velasco (more content not included)...Normal [facility] Memorial HospitaleGFRon 77-95-0469wZRG585 mL/min/1.73 x3Wfzdax>=59 [facility] HospitalComment on above:Performed By: #### [id number] ####[facility] [address] [place] [address] ABO/Rhon 47-25-4807UOI/RhPositiveInvalid Interpretation CodeNorwalk Memorial HospitalComment on above:Performed By: #### [id number] #### [facility] [address] [place], [place] [address]RZP/Rh History Checkon 12-17-6562PDU/Rh History CheckVerified Hx Blood TypeNormalNorwalk Memorial HospitalComment on above:Performed By: #### [id number] #### [facility] [address], [place] [address]YFOMys 36-52-5053PSZQ Gel InterpNegativeNormalNorwalk Memorial HospitalComment on above:Performed By: #### [id number] #### [facility] [address] [place] [address]Smkpk Bank ID#on [id number]#[id number] Interpretation CodeNorwalk Memorial HospitalComment on above:Performed By: #### [id number] #### [facility] [address] [place] [address]Itlhaitdv Patient Summaryon 65-08-1020Vulgoabwx Patient Summary Inpatient Patient Summary [address] [address] [facility] Clinical Discharge Instructions PERSON INFORMATION Name: JENNIFER ZAMORA PHYSICIANS Admitting Physician: Rosmery Bronson MD Attending Physician: Rosmery Bronson MD PCP: GRADY DAS DO Discharge Diagnosis: Comment: PATIENT EDUCATION INFORMATION Instructions: Minimally Invasive Nephrectomy, Care After Medication Leaflets: Follow up: With: Address: When: Rosmery Bronson [address] [place] [id number] [phone] Business (1) Comments: Office to schedule your [...] Mouth every day. omega-3 polyunsaturated fatty acids (Arcola-3 Fish Oil 1000 mg oral capsule) By Mouth. zolpidem (zolpidem 5 mg Tab) Comment:[facility]Main OR Intraoperative Recordon [id number] OR Intraoperative RecordMain OR Intraoperative Record IntraOp Document Type FT Summary Primary Physician: Rosmery Bronson MD Finalized Date/Time: 06/02/25 15:32:14 Pt. Name: JENNIFER ZAMORA /Sex: 1970 Female Med Rec #: [id number] Physician: Rosmery Bronson MD Financial #: [id number] Pt. Type: A Room/Bed: [facility] Admit/Disch: 06/02/25 07:30:02 - Institution: Case Times [...] AT 1457. SURGEON AT [employer] FROM [id number].MISHEL SUMMERS. CLAMP TIME FROM [id number], 24 MINS AND 25 SECONDS.MISHEL SUMMERS. Case Attendance FT Entry 1 Entry 2 Entry 3 Case Attendee Dawson Salinas MD, Shalini Balderas Role Performed Anesthesiologist Surgeon - Primary Radiological Equipment Specialist - Primary Senior Audit Manager Time In 06/02/25 09:43:00 06/02/25 09:43:00 06/02/25 [...] Connie E Role Performed Scrub - Primary MICROBIOLOGY ANALYST/SA Radiological Equipment Specialist - Relief Time In 06/02/25 09:43:00 06/02/25 [...] Francisco DRISCOLL, Grady Bailey, Veronika Hensley DNP, BULL FIDDLE PLAYER, [place] Role Performed MICROBIOLOGY ANALYST/SA Scrub - Relief BULL FIDDLE PLAYER Time In 06/02/25 12:49:00 06/02/25 12:50:00 06/02/25 14:20:00 Time Out 06/02/25 14:04:00 06/02/25 13:51:00 06/02/25 14:57:00 Procedure NEPHRECTOMY PARTIAL, NEPHRECTOMY PARTIAL, NEPHRECTOMY PARTIAL, ROBOT ASSISTED(Right) ROBOT ASSISTED(Right) ROBOT ASSISTED(Right) Comments LUNCH RELIEF FOR IS SUPERVISING ZHENG,MICROBIOLOGY ANALYST/SA Last Modified By: Shalini Tarango Kelsie E Burgderfer, Kelsie E 06/02/25 15:31:27 06/02/25 15:31:27 06/02/25 15:31:27 Entry 10 Case Attendee Reynaldo DUONG, Yoselin Call Role Performed BULL FIDDLE PLAYER Time In 06/02/25 14:53:00 Time Out 06/02/25 15:25:00 Procedure NEPHRECTOMY PARTIAL, ROBOT ASSISTED(Right) Comments IS SUPERVISING Last Modified By: Shalini Tarango 06/02/25 15:31:27 General Comments: TRENA ANDINO,FORMERLY [facility], [facility], IN ATTENDANCE.MISHEL SUMMERS. Perioperative Protocols FT Pre-Care [...] Surgeon Audie Velasco (more content not included)...Normal [facility] OR PACU I Recordon [id number] OR PACU I RecordMain OR PACU I Record PACU Phase I Document Type FT Summary Primary Physician: Rosmery Bronson MD Finalized Date/Time: 06/02/25 16:35:36 Pt. Name: JENNIFER ZAMORA D.O.B./Sex: 1970 Female Med Rec #: [id number] Physician: Rosmery Bronson MD Financial #: [id number] Pt. Type: O Room/Bed: [facility]/01 Admit/Disch: 06/02/25 07:30:02 - Institution: Case Times [...] Acuity Level I Last Modified By: Mable Orbegon RN 06/02/25 16:35:32 Finalized By: Mable Obregon RN Document Signatures Signed By: Mable Obregon RN 06/02/25 16:35NoSelect Medical Specialty [facility], IncMain OR Preoperative Recordon [id number] OR Preoperative RecordMain OR Preoperative Record PreOp Document Type FT Summary Primary Physician: Rosmery Bronson MD Finalized Date/Time: 06/02/25 10:33:51 Pt. Name: JENNIFER ZAMORA /Sex: 1970 Female Med Rec #: [id number] Physician: Rosmery Bronson MD Financial #: [id number] Pt. Type: A Room/Bed: [place] [address] Admit/Disch: 06/02/25 07:30:02 - Institution: Case Times [...] Document Signatures Signed By: Shalini Tarango 06/02/25 10:33NoSelect Medical Specialty Hospital [facility], IncOperative Reporton [id number] ReportOperative Report Patient: JENNIFER ZAMORA Age: 54 years Sex: Female : 1970 Associated Diagnoses: None Author: Rosmery Bronson MD Procedure Procedure Date: 06/02/2025. Confirmed: patient, procedure, side, site, safety procedures followed. Performed by: Rosmery Bronson MD, anesthesiologist ([facility]). Type of procedure: Robotic Laparascopic assisted right [...] line along lateral rectus. 5 mm subxiphoid public services assistant port for liver retraction and a 12 mm air seal public services assistant port superior to the umbilicus in [...] robot was undocke (more content not included)...Normal [facility] HospitalComment on above:Result Comment: Electronically Signed By: Audie MADERA, Rosmery Mckay\.alan\Date and Time Signed: 06/02/25 15:55EDT Outpatient Surgery Discharge Instructionon [id number] Surgery Discharge InstructionOutpatient Surgery Discharge Instruction [place] [id number] Patient Discharge Instructions PERSON INFORMATION Name: JENNIFER [...] Signature Date Follow up: With: Address: When: Romsery Bronson [address] [facility], [place] [address], [address] [address] [phone] Business (1) Comments: Office to schedule your follow up in 2 weeks for pathology review and postop check Pharmacy Information: You may receive a survey from [employer] asking you to rate your care experience. Your feedback is important and will help us understand what we do well and how we can improve the quality of care we provide to you, your loved ones and our community. It???s an honor to serve you. Thank you for choosing [facility] HERE ARE THE MEDICATION CHANGES THAT [...] Mouth every day. omega-3 polyunsaturated fatty acids (Arcola-3 Fish Oil 1000 mg oral capsule) By [...] these instructions at home: Medicines ??? Take rhqp-aov-myrydar and prescription medicines only as told by your health care provider. ??? Avoid using NSAIDs regularly over a long period of time. These include aspirin and ibuprofen. Doing so may damage your remaining kidney. -Tylenol 650-1000 mg every 6 hours as needed for pain. Vernon for severe uncontrolled pain. These have 325 [...] keep your urine pale yellow. ? Take yyvt-bbm-pwxdrzy or prescription medicines - Colace/Senna ? Eat [...] and water are not available, use hand steep tender. ? Change your dressing as told by your health care provider- daily and as needed to keep dry, and until incisio (more content not included)...NormalNorwalk Memorial HospitalUA with Cult Rflxon 63-62-1732Iatyw (U)Light-YellowNormalYellow [facility] HospitalComment on above:Result Comment: Microscopic readings are only performed on those samples that meet specific criteria set forth by [facility].Performed By: #### [id number] #### [facility] [address], [place] [address]Clxligb (U) [Mass/Vol]NegativeNormalNegativeNorwalk Memorial HospitalComment on above:Performed By: #### [id number] #### [facility] [address], [place] [address]Bmlarbk Ql (U)NegativeNormalNegativeNorwalk Memorial Hospital Comment on above:Performed By: #### [id number] #### [facility] [address] [place], [place] [address]CY BloodNegativeNormalNegativeNorwalk Memorial Hospital Comment on above:Performed By: #### [id number] #### [facility] [address], [place] [address]OG ClarityClearNormalClearNorwalk Memorial HospitalComment on above:Performed By: #### [id number] #### [facility] [address], [place] [address]PM Leuk EstNegativeNoMemorial Health System Comment on above:Performed By: #### [id number] #### [facility] [address] [place] [address]FD NitriteNegativeNormalGalion Community Hospital Comment on above:Performed By: #### [id number] #### [facility] [address], [place] [address]ZK pH7.0Invalid Interpretation Code5.0-9.0[facility] HospitalComment on above:Performed By: #### [id number] #### [facility] [address] [place] [address]UI ProteinNegativeNoMemorial Health System Comment on above:Performed By: #### [id number] #### [facility] [address], [place] [address]CH Spec Grav1.013Invalid Interpretation Code1.005-1.030[facility] HospitalComment on above:Performed By: #### [id number] #### [facility] [address], [place] [address]FG UrobilinogenNegativeNormalNegClermont County HospitalComment on above:Performed By: #### [id number] #### [facility] [address] [address], [place] [address]Kcbgjqzqffvx (U) [Mass/Vol]NegativeNormalNegClermont County HospitalComment on above:Performed By: #### [id number] #### [facility] [address], [place] [address]MG Spec DescFoleyNormProMedica Toledo HospitalComment on above:Performed By: #### [id number] #### [facility] [address], [place] [address]TCYtj 11-46-5151Hkkac gap [Moles/Vol]10 mmol/LNormal6-16[facility] HospitalComment on above:Performed By: #### [id number] #### [facility] [address], [place] [address]MOW/Creat Ratio30 No KrhchFqwl11-94YuylxzNorwalk Memorial Hospital Comment on above:Performed By: #### [id number] #### [facility] [address], [place] [address]Hdkjqgd [Mass/Vol]9.8 mg/dLNormal8.9-11.1FMedina HospitalComment on above:Performed By: #### [id number] #### [facility] [address] [address], [place] [address]Bnompxsl [Moles/Vol]100 mmol/XVmf714-780LlgkirNorwalk Memorial HospitalComment on above:Performed By: #### [id number] #### [facility] [address], [place] [address]PF7 [Moles/Vol]32 mmol/CXsdz51-38WnpllfNorwalk Memorial Hospital Comment on above:Performed By: #### [id number] #### [facility] [address] [address], [place] [address]Ozynsnkryq [Mass/Vol]0.7 mg/dLNormal0.5-1.3FMedina HospitalComment on above:Performed By: #### [id number] #### [facility] [address] [address], [place] [address]Ekwxqrp [Mass/Vol]84 mg/tUMspjun98-838VgcphnNorwalk Memorial HospitalComment on above:Performed By: #### [id number] #### [facility] [address], [place] [address]Sfmqzgqrf [Moles/Vol]3.3 mmol/LLow3.5-5.3FMedina HospitalComment on above:Performed By: #### [id number] #### [facility] [address] [address], [place] [address]Hhjnig [Moles/Vol]139 mmol/EYaratq566-267GvlwigNorwalk Memorial HospitalComment on above:Performed By: #### [id number] #### [facility] [address] [place] [address]Fslb nitrogen [Mass/Vol]21 mg/dLNormal5-21[facility] HospitalComment on above:Performed By: #### [id number] #### [facility] [address] [place] [address]TGP w/ Auto Diffon 26-56-0679Cvbuvatu Absolute0.0 E9/LNormal 0.0-0.2FMedina HospitalComment on above:Performed By: #### [id number] #### [facility] [address] [place] [address]Qswxzhigj/100 WBC (Bld)0.4 %Normal0.0-2.0[facility] HospitalComment on above:Performed By: #### [id number] #### [facility] [address] [place] [address]Koj Absolute0.0 E9/LNormal0.0-0.5FMedina Hospital Comment on above:Performed By: #### [id number] #### [facility] [address] [place] [address]Jivtfllprfk/100 WBC (Bld)0.7 %Normal0.0-8.0[facility] HospitalComment on above:Performed By: #### [id number] #### [facility] [address] [place] [address]Bcidxqdiubc distribution width (RBC) [Ratio]12.6 %Normal 10.9-14.2FMedina HospitalComment on above:Performed By: #### [id number] #### [facility] [address] [place], [place] [address]Uzqbljzqou (Bld) [Volume fraction]41.3 %Piygto91.0-46.0[facility] HospitalComment on above:Performed By: #### [id number] #### [facility] [address] [place], [place] [address]Jjkspvxwbm (Bld) [Mass/Vol]14.6 g/pLTcjjsi82.0-16.0[facility] HospitalComment on above:Performed By: #### [id number] #### [facility] [address] [place] [address]Jiekk Absolute1.6 E9/LNormal1.0-4.0[facility] Comment on above:Performed By: #### [id number] #### [facility] [address] [place] [address]Wnpugtjyrss/100 WBC (Bld)25.1 %Eafmln80.0-50.0[facility] HospitalComment on above:Performed By: #### [id number] #### [facility] [address] [place] [address]NYL (RBC) [Entitic mass]32.3 odFyhfrc26.0-34.0[facility] HospitalComment on above:Performed By: #### [id number] #### [facility] [address] [place] [address]ZXLH (RBC) [Mass/Vol]35.3 g/tDMfwxhp27.4-36.0[facility] HospitalComment on above:Performed By: #### [id number] #### [facility] [address] [place] [address]UKY (RBC) [Entitic vol]91.4 mCBoxnvh78.0-100.0[facility] HospitalComment on above:Performed By: #### [id number] #### [facility] [address] [place] [address]Abvd Absolute0.4 E9/LNormal0.2-1.0[facility] Comment on above:Performed By: #### [id number] #### [facility] [address] [place] [address]Qxleamtkq/100 WBC (Bld)5.4 %Normal4.0-14.0[facility] HospitalComment on above:Performed By: #### [id number] #### [facility] [address] [place], [place] [address]Wrbktm Absolute4.4 E9/LNormal2.0-7.5FMedina Hospital Comment on above:Performed By: #### [id number] #### [facility] [address] [place], [place] [address]Hnfqjy Auto68.4 %Gaivfy80.0-75.0[facility] Comment on above:Performed By: #### [id number] #### [facility] [address] [place] [address]Rzhclevw187.0 E9/AJymmmy525.0-500.0[facility] Comment on above:Performed By: #### [id number] #### [facility] [address] [place] [address]Qynunngz mean volume (Bld) [Entitic vol]7.7 fLNormal6.4-10.8 [facility] HospitalComment on above:Performed By: #### [id number] #### [facility] [address] [place] [address]TAO0.5 E12/LNormal4.3-5.9[facility] HospitalComment on above:Performed By: #### [id number] #### [facility] [address] [place] [address]BAB5.5 E9/LNormal4.0-11.0[facility] HospitalComment on above:Performed By: #### [id number] #### [facility] [address] [place] [address]YA & PTTon 69-26-5834ZAH Coag (PPP) [Relative time]0.97 {INR} Invalid Interpretation CodeNorwalk Memorial HospitalComment on above:Result Comment: INR results are specifically intended to assess patients stabilized on long-term Anticoagulation therapy suggested INR???s ???Less Intensive Anticoagulation??? 2.0 ??? 3.0 Conventional Range 3.0 ??? 4.5Performed By: #### [id number] #### [facility] [address], [place] [address]AG35.9 second(s)Normal9.4-12.5FMedina Hospital Comment on above:Result Comment: 15 days [...] the same coagulation reagent and instrumentation as [facility]. Currently there are no coagulation studies available worldwide for children to 14 days, andno normal ranges.Performed By: #### [id number] #### [facility] [address] [address], [place] [address]XRZ65.9 second(s)Lnuerq00.1-36.5FMedina Hospital Comment on above:Result Comment: Parameter 15 [...] the same coagulation reagent and instrumentation as [facility]. Currently there are no coagulation studies available worldwide for children to 14 days, andno normal ranges. Heparin therapeutic range (represented by Anti-Factor Xa activity of 0.2 - 0.4 U/mL) corresponds to PTT of 56.6 - 109.0 sec.Performed By: #### [id number] #### [facility] [address] [place] [address]UB with Cult Rflxon 86-66-2200Usgdq (U)Light-YellowNormalYellow [facility] HospitalComment on above:Result Comment: Microscopic readings are only performed on those samples that meet specific criteria set forth by [facility].Performed By: #### [id number] #### [facility] [address] [place] [id number] (U) [Mass/Vol]NegativeNormalNegativeNorwalk Memorial HospitalComment on above:Performed By: #### [id number] #### [facility] [address] [place], [place] [address]Ketones Ql (U)NegativeNormalNegativeNorwalk Memorial Hospital Comment on above:Performed By: #### [id number] #### [facility] [address] [place] [address]EZ BloodNegativeNormalNegClermont County Hospital Comment on above:Performed By: #### [id number] #### [facility] [address] [place] [address]BR ClarityClearNormalClearNorwalk Memorial HospitalComment on above:Performed By: #### [id number] #### [facility] [address], [place] [address]OG Leuk EstNegativeNormalNegClermont County Hospital Comment on above:Performed By: #### [id number] #### [facility] [address] [place] [address]JA NitriteNegativeNormalNegClermont County Hospital Comment on above:Performed By: #### [id number] #### [facility] [address] [place] [id number] pH7.0Invalid Interpretation Code5.0-9.0[facility] HospitalComment on above:Performed By: #### [id number] #### [facility] [address] [place], [place] [address]GU ProteinNegativeNormalNegativeNorwalk Memorial Hospital Comment on above:Performed By: #### [id number] #### [facility] [address] [address], [place] [address]GY Spec Grav1.011Invalid Interpretation Code1.005-1.030[facility] HospitalComment on above:Performed By: #### [id number] #### [facility] [address] [place], [place] [address]VO UrobilinogenNegativeNormalNegativeNorwalk Memorial HospitalComment on above:Performed By: #### [id number] #### [facility] [address] [place], [place] [address]Njbsjdtmrpeb (U) [Mass/Vol]NegativeNormalNegativeNorwalk Memorial HospitalComment on above:Performed By: #### [id number] #### [facility] [address], [place] [address]VV Spec DescClean CatchNormalNorwalk Memorial HospitalComment on above:Performed By: #### [id number] #### [facility] [address] [address], [place] [address]aSIGex 80-98-8647jDBB131 mL/min/1.73 q3Fkmztq>=59[facility] HospitalComment on above:Performed By: #### [id number] #### [facility] [address] [address], [place] [address]Qjpxzkwrdq - Chemistry and Chemistry - challengeOrdered By: Shasha Isaac on 58-25-9703Qcvuvqizq Ql (U)White HospitalGlucose (U) [Mass/Vol]White HospitalKetones Ql (U)White HospitalpH (U)7.0 [pH][facility] Hospitalpecific gravity (U) [Rel density]1.020[facility] HospitalLaboratory - Specimen informationOrdered By: Shasha Isaac on 05-05-2025 Appearance (U)clearCleveland Clinic Lutheran HospitalColor (U)yellowCleveland Clinic Lutheran HospitalLaboratory - UrinalysisOrdered By: Shasha Isaac on 68-80-9995Nvaisfzbt esterase Test strip Ql (U)NegativeCleveland Clinic Lutheran HospitalNitrite Ql (U)NegativeCleveland Clinic Lutheran HospitalProtein Ql (U) NegativeCleveland Clinic Lutheran HospitalNo Panel InformationOrdered By: Shasha Isaac on 26-38-1007Aypta Occult BloodNegativeCleveland Clinic Lutheran Hospital Urine Urobilinogen0.2EU/dLCleveland Clinic Lutheran HospitalAmbulatory Visit Summaryon 43-92-5155Hgtohjcajs Visit SummaryAmbulatory Visit Summary JENNIFER ZAMORA :1970 [...] Complex oral tablet) omega-3 polyunsaturated fatty acids (Arcola-3 Fish Oil 1000 mg oral capsule) Procedures [...] or concerns Unchanged omega-3 polyunsaturated fatty acids (Arcola-3 Fish Oil 1000 mg oral capsule) By [...] the mass. Follow t (more content not included)...[facility]woodsMRI ABDOMEN W WO CONTRAST MRCPon 35-04-7270EVN ABDOMEN W WO CONTRAST MRCPADDENDUM: This exam [...] Guaman IV, MD 12/11/24 Edited Result - FINALNormalMerMultiCare HealthBasic Metab w/rfx MGon 48-10-8324Jbkll gap [Moles/Vol]11 mmol/LNormal9-16MerMultiCare HealthComment on above:Performed By: #### MELLISA, CDP #### [facility] [address] [place] [address] Counseling Services Director: STEPHANI Walleralcium [Mass/Vol]9.5 mg/dLNormal8.6-10.4Scci Hospital LimaComment on above:Performed By: #### MELINAX, CDP #### [facility] [address] [place], [place] [id number] Counseling Services Director: STEPHANI Wallerhloride [Moles/Vol]103 mmol/IQnfazk61-715HvuzdScci Hospital LimaComment on above:Performed By: #### BMPX, CDP #### [facility] [place] [address] Counseling Services Director: STEPHANI WallerO2 [Moles/Vol]26 mmol/ILwfgpq70-33HrqkcScci Hospital LimaComment on above:Performed By: #### BMPX, CDP #### [facility] [address] [place] [address]. [place] [address] Counseling Services Director: STEPHANI Wallerreatinine [Mass/Vol]0.9 mg/dLNormal0.50-0.90 [facility] Hospital LimaComment on above:Performed By: #### BMPX, CDP #### [facility] [address] [place] [address] Counseling Services Director: Velasquez Sears MDGFR/1.73 sq M.predicted among non-blacks MDRD (S/P/Bld) [Vol rate/Area]80 mL/min/{1.73_m2}Normal>60[facility] Comment on above:Result Comment: These results are [...] tubular secretion.Performed By: #### BMPX, CDP #### [facility] [place] [address] Counseling Services Director: Velasquez Sears MDGlucose [Mass/Vol]150 mg/uGGtys75-09KuztnNorthwest HospitalComment on above:Performed By: #### BMPX, CDP #### [facility] [address] [place] [address]. [place], [place] [id number] Counseling Services Director: JACKSON Wallerotassium [Moles/Vol]3.8 mmol/LNormal3.7-5.3 [facility] Hospital LimaComup health system on above:Performed By: #### BMPX, CDP #### [facility] [address] [place], [place] [address] Counseling Services Director: LEANDRO Wallerodium [Moles/Vol]140 mmol/WIeeozu111-080LpxitScci Hospital LimaComup health system on above:Performed By: #### BMPX, CDP #### [facility] [address] [place] [address] Counseling Services Director: Velasquez Seras MDUrea nitrogen [Mass/Vol]13 mg/dLNormal6-20[facility] Hospital LimaComup health system on above:Performed By: #### BMPX, CDP #### [facility] [address] [place] [address] Counseling Services Director: Velasquez Sears MDBasi Metabolic Panel w/ Reflex to MGon 06-81-4454Ogvdb gap [Moles/Vol]11 mmol/L9 - 16 mmol/LBon [facility] Calcium [Mass/Vol]9.5 mg/dL8.6 - 10.4 mg/dLBon Sycamore Medical CenterChloride [Moles/Vol]103 mmol/L98 - 107 mmol/LBon [facility] Medical CenterCO2 [Moles/Vol]26 mmol/L20 - 31 mmol/LBon [facility] Medical CenterCreatinine [Mass/Vol]0.9 mg/dL0.50 - 0.90 mg/dLBon Sycamore Medical CenterEst, Glom Filt Rate80- PINFBon Sycamore Medical CenterComment on above: These results are not intended [...] that affects renal tubular secretion. Glucose [Mass/Vol]150 mg/nGIlxc41 - 99 mg/dLBon [facility] Interpretation and review of laboratory resultsAbnormSentara Princess Anne Hospital Potassium [Moles/Vol]3.8 mmol/L3.7 - 5.3 mmol/LBon [facility] Medical CenterSodium [Moles/Vol]140 mmol/L136 - 145 mmol/LBon [facility] Medical CenterUrea nitrogen [Mass/Vol]13 mg/dL6 - 20 mg/dLBon [facility] CBC with Auto Differentialon 27-19-0862Amcbbxnxs (Bld) [#/Vol][facility] HospitalBasophils/100 WBC (Bld)0 %0 - 2 %[facility] HospitalEosinophils (Bld) [#/Vol][facility] HospitalEosinophils/100 WBC (Bld)0 %Low1 - 4 %[facility] Memorial HospitalErythrocyte distribution width (RBC) [Ratio]11.4 %Low11.8 - 14.4 %[facility] Memorial HospitalHematocrit (Bld) [Volume fraction]41.0 %36.3 - 47.1 %[facility] Memorial HospitalHemoglobin (Bld) [Mass/Vol]14.6 g/dL11.9 - 15.1 g/dLBon Sycamore Medical CenterImmature granulocytes (Bld) [#/Vol]0.09 10*3/uLBon St. Elizabeth Hospitalmaohiohealth [facility] granulocytes/100 WBC (Bld)1 %Shfi4Yru [facility] CenterInterpretation and review of laboratory resultsAbnormalWarren Memorial HospitalLymphocytes/100 WBC (Bld)5 %Low24 - 43 %[facility] Lymphocytes/100 WBC (Bld)0.71 %LowCarilion Stonewall Jackson HospitalH (RBC) [Entitic mass]32.1 pg25.2 - 33.5 pgCarilion Stonewall Jackson HospitalHC (RBC) [Mass/Vol]35.6 g/dL High28.4 - 34.8 g/dLBon [facility] Medical CenterMCV (RBC) [Entitic vol]90.1 fL82.6 - 102.9 fLBon [facility] Medical CenterMonocytes/100 WBC (Bld)4 %3 - 12 %Bon [facility] Memorial HospitalMonocytes/100 WBC (Bld)0.63 %Bon [facility] CenterNeutrophils/100 WBC (Bld)91 %High36 - 65 %Bon [facility] CenterNucleated RBC/100 WBC (Bld) [Ratio]0.0 %0.0 per 100 WBCBon Sy[facility]ore Medical CenterPlatelet mean volume (Bld) [Entitic vol]9.1 fL8.1 - 13.5 fLWarren Memorial HospitalPlatelets (Bld) [#/Vol] 326 10*3/uLBon [facility] Medical CenterRBC (Bld) [#/Vol]4.55 10*6/uL3.95 - 5.11 m/uL Bon [facility] CenterSegmented neutrophils/100 WBC (Bld)14.32 %HighBon [facility]ore Medical CenterWBC other (Bld) [#/Vol]15.8HighBon SecMemorial Health System Marietta Memorial HospitalBon [facility] Medical CenterCBC with Diffon [id number]. Basophil<0.40Bayzfz3.00-0.20 [facility] Hospital LimaComment on above:Performed By: #### BMPX, CDP #### [facility] [address] [place] [address] Counseling Services Director: Shamar Waller. Eosinophil<0.92Lmxful0.00-0.44[facility] Hospital LimaComment on above:Performed By: #### BMPX, CDP #### [facility] [address] [place] [address] Counseling Services Director: Shamar Waller.Imm.Granulocyte0.09 k/uLNormal0.00-0.30 [facility] LimaComment on above:Performed By: #### BMPX, CDP #### [facility] [address] [place] [address] Counseling Services Director: Shamar Waller.Neutrophil (Seg)14.32 k/uLHigh1.50-8.10 [facility] LimaComment on above:Performed By: #### BMPX, CDP #### [facility] [address] [place] [address] Counseling Services Director: Velasquez Sears MDBasophils/100 WBC (Bld)0 %Normal0-2[facility] HealthComment on above:Performed By: #### BMPX, CDP #### [facility] [address] [place] [address] Counseling Services Director: ALEXIA Wallerosinophils/100 WBC (Bld)0 %Low1-4[facility] HealthComment on above:Performed By: #### BMPX, CDP #### [facility] [address] [place] [address] Counseling Services Director: Velasquez Sears MDErythrocyte distribution width (RBC) [Ratio] 11.4 %Low11.8-14.4[facility] HealthComment on above:Performed By: #### BMPX, CDP #### [facility] [address] [place] [address] Counseling Services Director: Velasquez Sears MDHematocrit (Bld) [Volume fraction]41.0 %Normal 36.3-47.1[facility] HealthComment on above:Performed By: #### BMPX, CDP #### [facility] [address] [place] [address] Counseling Services Director: Velasquez Sears MDHemoglobin (Bld) [Mass/Vol]14.6 g/dLNormal 11.9-15.1[facility] HealthComment on above:Performed By: #### BMPX, CDP #### [facility] [address] [place] [address] Counseling Services Director: Robyn Waller granulocytes/100 WBC (Bld)1 %High0 [facility] LimaComup health system on above:Performed By: #### BMPX, CDP #### [facility] [address] [place] [address] Counseling Services Director: Spencer Wallermphocytes (Bld) [#/Vol]0.71 10*3/uLLow 1.10-3.70[facility] LimaComup health system on above:Performed By: #### BMPX, CDP #### [facility] [address] [place] [address] Counseling Services Director: Spencer Wallermphocytes/100 WBC (Bld)5 %Eia11-86AvdwsScci Hospital LimaComup health system on above:Performed By: #### BMPX, CDP #### [facility] [address] [place] [address] Counseling Services Director: KELLIE Waller (RBC) [Entitic mass]32.1 wqUqvapb21.2-33.5 [facility] LimaComup health system on above:Performed By: #### BMPX, CDP #### [facility] [address] [place] [address] Counseling Services Director: KELLIE WallerC (RBC) [Mass/Vol]35.6 g/yJQvkc17.4-34.8 [facility] LimaComup health system on above:Performed By: #### BMPX, CDP #### [facility] [address] [place] [address] Counseling Services Director: NELL WallerCV (RBC) [Entitic vol]90.1 nEAxxezf65.6-102.9 [facility] LimaComup health system on above:Performed By: #### BMPX, CDP #### [facility] [address] [place] [address] Counseling Services Director: NELL Walleronocytes (Bld) [#/Vol]0.63 10*3/uLNormal 0.10-1.20MerMultiCare HealthComup health system on above:Performed By: #### BMPX, CDP #### [facility] [address] [place] [address] Counseling Services Director: NELL Walleronocytes/100 WBC (Bld)4 %Normal3-12[facility] on above:Performed By: #### BMPX, CDP #### [facility] [address] [place] [address] Counseling Services Director: Yasemin Wallerophil (Seg)91 %Nzlu20-97PkqeaMultiCare HealthComup health system on above:Performed By: #### BMPX, CDP #### [facility] [address] [place] [address] Counseling Services Director: Velasquez Sears MDNRBC Automated0.0 per 100 WBCNormal0.0[facility] on above:Performed By: #### BMPX, CDP #### [facility] [address] [place] [address] Counseling Services Director: JACKSON Wallerlatelet mean volume (Bld) [Entitic vol]9.1 fL Normal8.1-13.5[facility] on above:Performed By: #### BMPX, CDP #### [facility] [address] [place] [address] Counseling Services Director: Jose Wallertelets (Bld) [#/Vol]326 10*3/wKAlezks153-569 [facility] LimaComment on above:Performed By: #### BMPX, CDP #### [facility] [address] [place] [address] Counseling Services Director: МАРИНА WallerBC (Bld) [#/Vol]4.55 10*6/uLNormal3.95-5.11 [facility] LimaComment on above:Performed By: #### BMPX, CDP #### [facility] [address] [place] [address] Counseling Services Director: YADIEL WallerBC (Bld) [#/Vol]15.8 10*3/uLHigh3.5-11.3MNorthwest HospitalComment on above:Performed By: #### BMPX, CDP #### [facility] [address] [place] [address] Counseling Services Director: JESUS MANUEL Waller Abdomen WO and W [...] 3. Normal MRI appearance of the pancreas. PiczoRadiology Study observation (narrative)[facility] Abdomen WO and W contrast IVOrdered By: Amna Guaman on 12-02-2024 [employer] Work Phone: Surgical Pathology Reporton [id number] Pathology Report(NOTE) Path Number: [id number] -- Diagnosis -- Gallbladder: -Cholelithiasis and chronic [...] Microscopic Description Microscopic examination performed. Processing Lab: [address] [id number] Interpretation Performed at [address] [id number] SURGICAL PATHOLOGY CONSULTATION Patient Name: JENNIFER ZAMORA Med Rec: [id number] [facility] ANATOMIC PATHOLOGY [address] [place] [address]. [place], [place] [address] NoUniversity Hospitals Elyria Medical CenterBasi Metabolic Panelon [id number] gap [Moles/Vol]8 mmol/LLow9 - 16 mmol/LBon UnLtdWorld Calcium [Mass/Vol]9.2 mg/dL8.6 - 10.4 mg/dLBon SecKhush HealthChloride [Moles/Vol]106 mmol/L98 - 107 mmol/LBon SecPWRFCO2 [Moles/Vol]26 mmol/L20 - 31 mmol/LBon SecPWRFCreatinine [Mass/Vol]0.7 mg/dL0.50 - 0.90 mg/dLBon SecKhush HealthEst, Glom Filt Rate- PINFBon SecKhush [facility] Bucyrus HospitalComment on above: These results are not [...] Mercy HealthEst, Glom Filt Rate- PINFBon Secours Nudipay Mobile Paymenty HealthComment on above: These results are not [...] HealthUrea nitrogen [Mass/Vol]11 mg/dL6 - 20 mg/dLBon [facility] CenterBon [facility] Medical CenterBasic Metabolic Profon [id number] gap [Moles/Vol]8 mmol/LLow9-16[facility] Comment on above:Performed By: #### CDP, BMP, LIVP #### [facility] [address] [place] [address] Counseling Services Director: STEPHANI Walleralcium [Mass/Vol]9.2 mg/dLNormal8.6-10.4[facility] Hospital LimaComment on above:Performed By: #### CDP, BMP, LIVP #### [facility] [address] [place] [address] Counseling Services Director: STEPHANI Wallerhloride [Moles/Vol]106 mmol/NJkeszg12-493CgamrScci Hospital LimaComment on above:Performed By: #### CDP, BMP, LIVP #### [facility] [place] [address] Counseling Services Director: STEPHANI WallerO2 [Moles/Vol]26 mmol/INhlbme08-08JundnScci Hospital LimaComment on above:Performed By: #### CDP, BMP, LIVP #### [facility] [address] [place] [address] Counseling Services Director: STEPHANI Wallerreatinine [Mass/Vol]0.7 mg/dLNormal0.50-0.90 [facility] LimaComment on above:Performed By: #### CDP, BMP, LIVP #### [facility] [place] [address] Counseling Services Director: Velasquez Sears MDGFR/1.73 sq M.predicted among non-blacks MDRD (S/P/Bld) [Vol rate/Area]mL/min/{1.73_m2}Normal>60MerMultiCare HealthComment on above:Result Comment: These results are not [...] secretion.Performed By: #### CDP, BMP, LIVP #### [facility] [place] [address] Counseling Services Director: Velasquez Sears MDGlucose [Mass/Vol]85 mg/oBOdrqnz87-52Kbmjh [facility] Valley HealthComment on above:Performed By: #### CDP, BMP, LIVP #### [facility] [address] [place] [address]. [place] [address] Counseling Services Director: JACKSON Wallerotassium [Moles/Vol]4.1 mmol/LNormal3.7-5.3 [facility] LimaComup health system on above:Performed By: #### CDP, BMP, LIVP #### [facility] [address] [place] [address]. [place] [address] Counseling Services Director: LEANDRO Wallerodium [Moles/Vol]140 mmol/RQtsofw693-844BvnmeMultiCare HealthComment on above:Performed By: #### CDP, BMP, LIVP #### [facility] [address] [place] [address]. [place] [address] Counseling Services Director: Velasquez Sears MDUrea nitrogen [Mass/Vol]9 mg/dLNormal6-20MerMultiCare HealthComment on above:Performed By: #### CDP, BMP, LIVP #### [facility] [address] [place] [address] Counseling Services Director: Velasquez Sears MDAnion gap [Moles/Vol]8 mmol/LLow9-16[facility] LimaComup health system on above:Performed By: #### BMP #### [facility] [address] [place] [address] Counseling Services Director: Velasquez Sears MD #### TRIG #### [address] [address] Counseling Services Director: STEPHANI Casasalcium [Mass/Vol]8.9 mg/dLNormal8.6-10.4[facility] LimaComup health system on above:Performed By: #### BMP #### [facility] [address] [place] [address] Counseling Services Director: Velasquez Sears MD #### TRIG #### [address] [address] Counseling Services Director: STEPHANI Casashloride [Moles/Vol]104 mmol/TIxtpcy30-269JqavdScci Hospital LimaComup health system on above:Performed By: #### BMP #### [facility] [address] [place] [address] Counseling Services Director: Velasquez Sears MD #### TRIG #### [address] [address] Counseling Services Director: Hilario Hdz MDCO2 [Moles/Vol]27 mmol/SQrdlif55-87CzlpgScci Hospital LimaComup health system on above:Performed By: #### BMP #### [facility] [address] [place] [address] Counseling Services Director: Velasquez Sears MD #### TRIG #### [address] [address] Counseling Services Director: STPEHANI Casasreatinine [Mass/Vol]0.7 mg/dLNormal0.50-0.90 [facility] LimaComup health system on above:Performed By: #### BMP #### [facility] [address] [place] [address] Counseling Services Director: Velasquez Sears MD #### TRIG #### [address] [address] Counseling Services Director: Hilario Hdz MDGFR/1.73 sq M.predicted among non-blacks MDRD (S/P/Bld) [Vol rate/Area]mL/min/{1.73_m2}Normal>60[facility] LimaComup health system on above:Result Comment: These results are not [...] renal tubular secretion.Performed By: #### BMP #### [facility] [address] [place] [address] Counseling Services Director: Velasquez Sears MD #### TRIG #### [address] [address] Counseling Services Director: Hilario Hdz MDGlucose [Mass/Vol]95 mg/eIItopys08-44Gszim [facility] HealthComup health system on above:Performed By: #### BMP #### [facility] [address] [place] [address] Counseling Services Director: Velasquez Sears MD #### TRIG #### [address] [address] Counseling Services Director: JACKSON Casasotassium [Moles/Vol]3.7 mmol/LNormal3.7-5.3 [facility] LimaComment on above:Performed By: #### BMP #### [facility] [address] [place] [address] Counseling Services Director: Velasquez Sears MD #### TRIG #### [address] [place], [place] [address] Counseling Services Director: LEANDRO Casasodium [Moles/Vol]138 mmol/LWgayur744-017SjpbtScci Hospital LimaComment on above:Performed By: #### BMP #### [facility] [address] [place] [address] Counseling Services Director: Velasquez Sears MD #### TRIG #### [address] [id number] Counseling Services Director: Hilario Hdz MDUrea nitrogen [Mass/Vol]11 mg/dLNormal6-20[facility] LimaComment on above:Performed By: #### BMP #### [facility] [address] [place] [address] Counseling Services Director: Velasquez Sears MD #### TRIG #### [address] [id number] Counseling Services Director: Hilario Hdz [facility] with Auto Differentialon [id number] (Bld) [#/Vol]0.03 10*3/uLBon Secours Mercy HealthBasophils/100 WBC (Bld)1 %0 - 2 %[facility] HealthEosinophils (Bld) [#/Vol]0.05 10*3/uLBon Secours Mercy HealthEosinophils/100 WBC (Bld)1 %1 - 4 %[facility] Erythrocyte distribution width (RBC) [Ratio]11.6 %Low11.8 - 14.4 %[facility] Mer[facility] HealthHematocrit (Bld) [Volume fraction]40.5 %36.3 - 47.1 %Bon SecMem[facility] Health System Marietta Memorial HospitalHemoglobin (Bld) [Mass/Vol]13.9 g/dL11.9 - 15.1 g/dLBon SecMemorial Health System Marietta Memorial HospitalImmature granulocytes (Bld) [#/Vol]0.01 10*3/uLBon Secours [facility] Geneva Medical CenterImmature granulocytes/100 WBC (Bld)0 %0[facility] Interpretation and review of laboratory resultsAbnormalBon [facility] Lymphocytes/100 WBC (Bld)25 %24 - 43 %Bon SecMemorial Health System Marietta Memorial HospitalLymphocytes/100 WBC (Bld)1.11 %Bon [facility] HospitalH (RBC) [Entitic mass]31.6 pg25.2 - 33.5 pgBon J.W. Ruby Memorial HospitalHC (RBC) [Mass/Vol]34.3 g/dL28.4 - 34.8 g/dLBon SecRiverview Health InstituteV (RBC) [Entitic vol]92.0 fL82.6 - 102.9 fLBon [facility] CenterMonocytes/100 WBC (Bld)6 %3 - 12 %[facility] Monocytes/100 WBC (Bld)0.27 %[facility] Memorial HospitalNeutrophils/100 WBC (Bld)67 %High36 - 65 %Bon [facility] CenterNucleated RBC/100 WBC (Bld) [Ratio]0.0 % 0.0 per 100 WBCBon Sy[facility] Medical CenterPlatelet mean volume (Bld) [Entitic vol] 8.9 fL8.1 - 13.5 fLBon SecSlidell Memorial Hospital and Medical Center HealthPlatelets (Bld) [#/Vol]267 10*3/uLBon [facility]ours [facility] HealthRBC (Bld) [#/Vol]4.40 10*6/uL3.95 - 5.11 m/uLBon [facility] CenterSegmented neutrophils/100 WBC (Bld)3.03 %Bon SecMemorial Health System Marietta Memorial HospitalWBC other (Bld) [#/Vol]4.5[facility] SecMemorial Health System Marietta Memorial HospitalCBC with Diffon [id number]. Basophil0.03 k/uLNormal0.00-0.20[facility] Comment on above:Performed By: #### CDP, BMP, LIVP #### [facility] [address] [place] [address]. [place] [address] Counseling Services Director: Shamar Waller.Imm.Granulocyte0.01 k/uLNormal0.00-0.30 [facility] LimaComment on above:Performed By: #### CDP, BMP, LIVP #### [facility] [address] [place] [address]. [place] [address] Counseling Services Director: Shamar Waller.Neutrophil (Seg)3.03 k/uLNormal1.50-8.10 [facility] LimaComment on above:Performed By: #### CDP, BMP, LIVP #### [facility] [address] [place] [address] Counseling Services Director: Velasquez Sears MDBasophils/100 WBC (Bld)1 %Normal0-2[facility] HealthComment on above:Performed By: #### CDP, BMP, LIVP #### [facility] [address] [place] [address] Counseling Services Director: ALEXIA Wallerosinophils (Bld) [#/Vol]0.05 10*3/uLNormal 0.00-0.44MerMultiCare HealthComment on above:Performed By: #### CDP, BMP, LIVP #### [facility] [address] [place] [address] Counseling Services Director: ALEXIA Wallerosinophils/100 WBC (Bld)1 %Normal1-4MerMultiCare HealthComment on above:Performed By: #### CDP, BMP, LIVP #### [facility] [address] [place] [address] Counseling Services Director: Velasquez Sears MDErythrocyte distribution width (RBC) [Ratio] 11.6 %Low11.8-14.4[facility] LimaComup health system on above:Performed By: #### CDP, BMP, LIVP #### [facility] [address] [place] [address] Counseling Services Director: Velasquez Sears MDHematocrit (Bld) [Volume fraction]40.5 %Normal 36.3-47.1MNorthwest HospitalComup health system on above:Performed By: #### CDP, BMP, LIVP #### [facility] [address] [place] [address] Counseling Services Director: Velasquez Sears MDHemoglobin (Bld) [Mass/Vol]13.9 g/dLNormal 11.9-15.1MNorthwest HospitalComment on above:Performed By: #### CDP, BMP, LIVP #### [facility] [address] [place] [address] Counseling Services Director: Velasquez Sears MDImmature granulocytes/100 WBC (Bld)0 %Normal0 [facility] LimaComup health system on above:Performed By: #### CDP, BMP, LIVP #### [facility] [address] [place] [address] Counseling Services Director: Velasquez Sears MDLymphocytes (Bld) [#/Vol]1.11 10*3/uLNormal 1.10-3.70[facility] LimaComup health system on above:Performed By: #### CDP, BMP, LIVP #### [facility] [address] [place] [address] Counseling Services Director: Spencer Wallermphocytes/100 WBC (Bld)25 %Cmcmpv55-80Cvcgc Pena Blanca HospitalComment on above:Performed By: #### CDP, BMP, LIVP #### [facility] [place] [address] Counseling Services Director: NELL WallerCH (RBC) [Entitic mass]31.6 oySyjlbt14.2-33.5 [facility] LimaComment on above:Performed By: #### CDP, BMP, LIVP #### [facility] [address] [place] [address]. [place] [address] Counseling Services Director: KELLIE WallerC (RBC) [Mass/Vol]34.3 g/vJIlhzsx41.4-34.8 [facility] LimaComup health system on above:Performed By: #### CDP, BMP, LIVP #### [facility] [address] [place] [address]. [place] [address] Counseling Services Director: NELL WallerCV (RBC) [Entitic vol]92.0 gLJztorr69.6-102.9 [facility] LimaComup health system on above:Performed By: #### CDP, BMP, LIVP #### [facility] [address] [place] [address]. [place] [address] Counseling Services Director: NELL Walleronocytes (Bld) [#/Vol]0.27 10*3/uLNormal 0.10-1.20[facility] LimaComup health system on above:Performed By: #### CDP, BMP, LIVP #### [facility] [address] [place] [address]. [place] [address] Counseling Services Director: NELL Walleronocytes/100 WBC (Bld)6 %Normal3-12[facility] LimaComment on above:Performed By: #### CDP, BMP, LIVP #### [facility] [address] [place] [address] [place] [address] Counseling Services Director: Zulma Waller (Seg)67 %Crnv46-10YfuihSumma Health Barberton Campus on above:Performed By: #### CDP, BMP, LIVP #### [facility] [address] [place] [address] Counseling Services Director: FRANKY Waller Automated0.0 per 100 WBCNormal0.0[facility] on above:Performed By: #### CDP, BMP, LIVP #### [facility] [address] [place], [place] [address]ia [facility] [address] Counseling Services Director: Cesar Waller mean volume (Bld) [Entitic vol]8.9 fL Normal8.1-13.5[facility] on above:Performed By: #### CDP, BMP, LIVP #### [facility] [place] [address] Counseling Services Director: Shavon Waller (Bld) [#/Vol]267 10*3/nPYhasam815-262 [facility] on above:Performed By: #### CDP, BMP, LIVP #### [facility] [place] [address] Counseling Services Director: BENNY Waller (Bld) [#/Vol]4.40 10*6/uLNormal3.95-5.11 [facility] on above:Performed By: #### CDP, BMP, LIVP #### [facility] [address] [place] [address] Counseling Services Director: LENIN Waller (Bld) [#/Vol]4.5 10*3/uLNormal3.5-11.3[facility] HealthComment on above:Performed By: #### CDP, BMP, LIVP #### [facility] [address] [place] [address] Counseling Services Director: Velasquez Sears MDHepatic Function Panelon [id number] [Mass/Vol]3.9 g/dL3.5 - 5.2 g/dLBon [facility] Medical CenterAlbumin/Globulin [Mass ratio]1.4 {ratio}1.0 - 2.5Bon [facility] HealthALP [Catalytic activity/Vol] 150 U/LHigh35 - 104 U/LBon [facility] HealthALT [Catalytic activity/Vol]81 U/LHigh10 - 35 U/LBon [facility] HealthAST [Catalytic activity/Vol]57 U/LHigh 10 - 35 U/LBon [facility] HealthBilirubin [Mass/Vol]0.6 mg/dL0.00 - 1.20 mg/dLBon [facility] CenterBilirubin.direct [Mass/Vol]0.2 mg/dL0.00 - 0.20 mg/dLBon [facility] Medical CenterBilirubin.indirect [Mass/Vol]0.4 mg/dLBon [facility] CenterProtein [Mass/Vol]6.6 g/dL6.6 - 8.7 g/dLBon [facility] Liver Profileon [id number] [Mass/Vol]3.9 g/dLNormal3.5-5.2[facility] HealthComment on above:Performed By: #### CDP, BMP, LIVP #### [facility] [address] [facility] [address] Counseling Services Director: Velasquez Sears MDAlbumin/Glob Ratio1.9Gslvuy4.0-2.5[facility] HealthComup health system on above:Performed By: #### CDP, BMP, LIVP #### [facility] [address] [facility] [place] [address] Counseling Services Director: Laurie Waller Bbyr002 U/UVhjz78-026KmmkyScci Hospital LimaComup health system on above:Performed By: #### CDP, BMP, LIVP #### [facility] [facility] [address] [place] [address] Counseling Services Director: Velasquez Sears MDALT [Catalytic activity/Vol]81 U/MVexg78-25 [facility] on above:Performed By: #### CDP, BMP, LIVP #### [facility] [address] [place] [address] Counseling Services Director: Velasquez Sears MDAST [Catalytic activity/Vol]57 U/MZpjl06-03 [facility] on above:Performed By: #### CDP, BMP, LIVP #### [facility] [address] [place], [place] [address] [place] [address] Counseling Services Director: Velasquez Sears MDBilirubin [Mass/Vol]0.6 mg/dLNormal0.00-1.20 [facility] on above:Performed By: #### CDP, BMP, LIVP #### [facility] [address] [place] [address] Counseling Services Director: Velasquez Sears MDBilirubin, Indirect0.4 mg/dLNormalSumma Health [facility] on above:Performed By: #### CDP, BMP, LIVP #### [facility] [address] [place] [address] Counseling Services Director: Velasquez Sears MDBilirubin.indirect [Mass/Vol]0.2 mg/dLNormal 0.00-0.20[facility] on above:Performed By: #### CDP, BMP, LIVP #### [facility] [address] [place] [address] Counseling Services Director: JACKSON Wallerrotein [Mass/Vol]6.6 g/dLNormal6.6-8.7[facility] on above:Performed By: #### CDP, BMP, LIVP #### [facility] [address] [place] [address] Counseling Services Director: Velasquez Sears MDNo Panel Informationon 17-75-5512Jpufgruphmltns and review of laboratory resultsAbnormalBon [facility] / Avera HealthTriglycerideon 05-15-2752Xgmzfhbhsdmx [Mass/Vol]124 mg/dLNINF - 150 mg/dLBon [facility] on above: Triglyceride Guidelines: <150 Desirable 150-199 Borderline 200-499 High >499 Very high Based on AHA Guidelines for fasting triglyceride, July 2012. [facility] CenterTriglycerideson 96-38-4089Sjlnqitmaiba [Mass/Vol]124 mg/dLNormal<150MerMultiCare HealthComment on above:Result Comment: Triglyceride Guidelines: <150 Desirable 150-199 Borderline 200-499 High >499 Very high Based on AHA Guidelines for fasting triglyceride, July 2012.Performed By: #### BMP #### [facility] [address] [place] [address] Counseling Services Director: Velasquez Sears MD #### TRIG #### [address] [address] Counseling Services Director: Hilario Hdz MDBasophils Auto (Bld) [#/Vol]on 11-30-2024 Basophils (Bld) [#/Vol]Automated basophil count0.0-0.1FOhio Valley Surgical HospitalBasophils/100 WBC Auto (Bld)on 91-52-1746Pzzojcjqg/100 WBC (Bld)Automated basophil %0.2-2.0[facility] HospitalEosinophils/100 WBC Auto (Bld)on 45-12-1309Nkikjgpxpyz/100 WBC (Bld)Automated eosinophil %0.9-7.0 [facility] HospitalErythrocyte distribution width Auto (RBC) [Ratio]on 63-13-4329Vedhskrplpb distribution width (RBC) [Ratio]Erythrocyte distribution width [Ratio] by Automated count11.0-15.0[facility] HospitalEstimated glomerular filtration rate (GFR) non- Americanon 18-52-9029NAZ/1.73 sq M.predicted among non-blacks MDRD (S/P/Bld) [Vol rate/Area]Estimated glomerular filtration rate (GFR) non- AmericanLow>=60 mL/min/1.73m 2FOhio Valley Surgical HospitalGlobulin Calc (S) [Mass/Vol]on 01-21-0872Xsuaikpj (S) [Mass/Vol]Serum globulin measurement by calculation (mass/volume)[facility] HospitalHematocrit Auto (Bld) [Volume fraction]on 11-65-2694Qxahyefvwi (Bld) [Volume fraction]Hematocrit [Volume Fraction] of Blood by Automated count36.0-48.0[facility] Hemoglobin [Mass/volume] in Bloodon 44-82-4219Eeqbvgsgjk (Bld) [Mass/Vol] Hemoglobin [Mass/volume] in Blood12.0-16.0[facility] - Chemistry and Chemistry - challengeon 90-81-9423Ezvihez [Mass/Vol] 3.9 g/dL3.4-5.0[facility] HospitalALP [Catalytic activity/Vol]138 U/CGwvq81-324NuftakzooCleveland Clinic Lutheran HospitalALT [Catalytic activity/Vol]25 U/L 14-59[facility] HospitalAmylase [Catalytic activity/Vol]106 U/L 25-115[facility] HospitalAST [Catalytic activity/Vol]24 U/L15-37 [facility] HospitalBilirubin [Mass/Vol]0.5 mg/dL0.2-1.0[facility] HospitalBilirubin.direct [Mass/Vol]0.1 mg/dL0.0-0.2FOhio Valley Surgical HospitalCalcium [Mass/Vol]9.4 mg/dL8.5-10.1FOhio Valley Surgical HospitalChloride [Moles/Vol]102 mmol/F23-052VanzjqlvdCleveland Clinic Lutheran HospitalCO2 [Moles/Vol]29.1 mmol/L21.0-32.0[facility] Creatinine [Mass/Vol]0.98 mg/dL0.55-1.02[facility] GFR/1.73 sq M.predicted MDRD (S/P/Bld) [Vol rate/Area]mL/min/{1.73_m2}>=60 mL/min/1.73m 2FOhio Valley Surgical HospitalGlucose [Mass/Vol]106 mg/eK81-610 [facility] HospitalLipase [Catalytic activity/Vol]215.0 U/LHigh 16.0-77.0[facility] HospitalPotassium [Moles/Vol]3.5 mmol/L3.5-5.1 [facility] HospitalProtein [Mass/Vol]7.8 g/dL6.4-8.2FOur Lady of Mercy Hospitalodium [Moles/Vol]139 mmol/Z637-351GismuhhghCleveland Clinic Lutheran HospitalUrea nitrogen [Mass/Vol]14.0 mg/dL7.0-18.0[facility] HospitalUrea nitrogen/Creatinine [Mass ratio]14.3 mg/mgCleveland Clinic Lutheran HospitalLaboratory - Hematology and Cell countson 83-87-4220Dnzkdgln granulocytes/100 WBC (Bld)0.0 %0.0-0.5FOhio Valley Surgical Hospital Leukocytes [#/volume] corrected for nucleated erythrocytes in Blood by Automated counon 75-47-5208LRX corrected for nucl RBC Auto (Bld) [#/Vol]Leukocytes [#/volume] corrected for nucleated erythrocytes in Blood by Automated coun 4.0-11.0[facility] HospitalLymphocytes Auto (Bld) [#/Vol]on 73-62-8239Iaggolivsnd (Bld) [#/Vol]Lymphocytes [#/volume] in Blood by Automated count1.2-3.8[facility] HospitalLymphocytes/100 WBC Auto (Bld)on 28-97-9118Xbogfeqcsfb/100 WBC (Bld)Lymphocytes/100 leukocytes in Blood by Automated count20.5-60.0[facility] HospitalMCH Auto (RBC) [Entitic mass]on 51-47-8549FKB (RBC) [Entitic mass]MCH [Entitic mass] by Automated count 26.7-34.0[facility] HospitalMCHC Auto (RBC) [Mass/Vol]on 32-82-8257ZMVK (RBC) [Mass/Vol]MCHC [Mass/volume] by Automated count29.9-35.2 [facility] HospitalMCV Auto (RBC) [Entitic vol]on 91-03-1798AOT (RBC) [Entitic vol]MCV [Entitic volume] by Automated count81.0-99.0[facility] HospitalMonocytes Auto (Bld) [#/Vol]on 32-74-2982Tjdxxrmqd (Bld) [#/Vol]Automated blood monocyte count0.3-0.8[facility] Monocytes/100 WBC Auto (Bld)on 05-89-7325Nmmtlrhkd/100 WBC (Bld)Automated monocyte %1.7-12.0[facility] HospitalNeutrophils Auto (Bld) [#/Vol]on 02-66-9736Cikiwqmgbwu (Bld) [#/Vol]Neutrophils [#/volume] in Blood by Automated count1.4-6.5FOhio Valley Surgical HospitalNeutrophils/100 WBC Auto (Bld)on 34-94-7178Nnlfqionbsb/100 WBC (Bld)Automated neutrophil %43.0-75.0 [facility] HospitalNo Panel Informationon 53-51-1255Ebzpnhjcvxr # (Auto)0.1 10 3/uL0.0-0.7FOhio Valley Surgical HospitalImmature Granulocyte # (Auto)0.00 10 3/uL0.00-0.03[facility] HospitalPlatelet mean volume Auto (Bld) [Entitic vol]on 80-07-5322Hldzwopv mean volume (Bld) [Entitic vol] Platelet mean volume [Entitic volume] in Blood by Automated countLow9.5-13.5 [facility] HospitalPlatelets Auto (Bld) [#/Vol]on 11-30-2024 Platelets (Bld) [#/Vol]Platelets [#/volume] in Blood by Automated -101 [facility] HospitalRBC Auto (Bld) [#/Vol]on 98-50-6887QVZ (Bld) [#/Vol]Erythrocytes [#/volume] in Blood by Automated count4.20-5.40[facility] Hospitalerum or plasma albumin/globulin mass ratioon 11-30-2024 Albumin/Globulin [Mass ratio]Serum or plasma albumin/globulin mass ratio [facility] Hospitalerum or plasma anion gap determinationon 37-91-1911Jcpbp gap [Moles/Vol]Serum or plasma anion gap determinationCleveland Clinic Lutheran HospitalBasophils Auto (Bld) [#/Vol]on 08-20-4280Gyouguotg (Bld) [#/Vol]Automated basophil count0.0-0.1FOhio Valley Surgical Hospital Basophils/100 WBC Auto (Bld)on 48-27-0369Ysohgndzj/100 WBC (Bld)Automated basophil %0.2-2.0[facility] HospitalCholesterol in LDL Calc [Mass/Vol]on 94-58-5502Apvkkpggwfu in LDL [Mass/Vol]Cholesterol in LDL [Mass/volume] in Serum or Plasma by calculationCleveland Clinic Lutheran Hospital Comment on above:<100 mg/dl LULTZMZ890-402 mg/dl NEAR OR ABOVE KMPUZEW018-994 mg/dl BORDERLINE YEQP364-389 mg/dl HIGH>190 mg/dl VERY HIGHCholesterol in VLDL Calc [Mass/Vol]on 82-96-3862Hzfkhuflkxj in VLDL [Mass/Vol]Cholesterol in VLDL [Mass/volume] in Serum or Plasma by calculationCleveland Clinic Lutheran Hospital Eosinophils/100 WBC Auto (Bld)on 73-28-5869Cteacrzstsu/100 WBC (Bld)Automated eosinophil %0.9-7.0[facility] HospitalErythrocyte distribution width Auto (RBC) [Ratio]on 22-07-4027Tcdpaeunocr distribution width (RBC) [Ratio]Erythrocyte distribution width [Ratio] by Automated count11.0-15.0 [facility] HospitalEstimated glomerular filtration rate (GFR) non- Americanon 59-35-0918NTR/1.73 sq M.predicted among non-blacks MDRD (S/P/Bld) [Vol rate/Area]Estimated glomerular filtration rate (GFR) non->=60 mL/min/1.73m 2FOhio Valley Surgical HospitalGlobulin Calc (S) [Mass/Vol]on 13-26-4498Jnygupaf (S) [Mass/Vol]Serum globulin measurement by calculation (mass/volume)[facility] HospitalHematocrit Auto (Bld) [Volume fraction]on 99-68-5276Kbgnhmnbgl (Bld) [Volume fraction]Hematocrit [Volume Fraction] of Blood by Automated count36.0-48.0[facility] HospitalHemoglobin [Mass/volume] in Bloodon 64-32-1853Tsfwvoawkg (Bld) [Mass/Vol] Hemoglobin [Mass/volume] in Blood12.0-16.0[facility] - Chemistry and Chemistry - challengeon 89-46-3454Iyuwpka [Mass/Vol] 3.6 g/dL3.4-5.0[facility] HospitalALP [Catalytic activity/Vol]104 U/O37-758RrowdilsbCleveland Clinic Lutheran HospitalALT [Catalytic activity/Vol]24 U/L 14-59[facility] HospitalAST [Catalytic activity/Vol]18 U/L15-37 [facility] HospitalBilirubin [Mass/Vol]0.3 mg/dL0.2-1.0[facility] HospitalCalcium [Mass/Vol]8.8 mg/dL8.5-10.1FOhio Valley Surgical HospitalChloride [Moles/Vol]106 mmol/N73-934RavvglzowCleveland Clinic Lutheran HospitalCholesterol [Mass/Vol]220 mg/dLHigh<=200[facility] Cholesterol in HDL [Mass/Vol]57 mg/vS36-70FqedmytodCleveland Clinic Lutheran Hospital Comment on above:> or =60 mg/dl - LOW CARDIOVASCULAR RISK<40 mg/dl - HIGH CARDIOVASCULAR RISKCO2 [Moles/Vol]29.7 mmol/L21.0-32.0[facility] HospitalCreatinine [Mass/Vol]0.75 mg/dL0.55-1.02[facility] GFR/1.73 sq M.predicted MDRD (S/P/Bld) [Vol rate/Area]mL/min/{1.73_m2}>=60 mL/min/1.73m 2FOhio Valley Surgical HospitalGlucose [Mass/Vol]87 mg/uE34-989 [facility] HospitalPotassium [Moles/Vol]3.8 mmol/L3.5-5.1FOhio Valley Surgical HospitalProtein [Mass/Vol]7.3 g/dL6.4-8.2FOur Lady of Mercy Hospitalodium [Moles/Vol]144 mmol/H595-368AisurcikcCleveland Clinic Lutheran HospitalTriglyceride [Mass/Vol]100 mg/dL<=150[facility] HospitalTS Qn0.574 m[IU]/L0.358-3.740[facility] HospitalUrea nitrogen [Mass/Vol]12.0 mg/dL7.0-18.0[facility] HospitalUrea nitrogen/Creatinine [Mass ratio]16.0 mg/mgCleveland Clinic Lutheran Hospital Laboratory - Hematology and Cell countson 63-37-3927Ygezjzyk granulocytes/100 WBC (Bld)0.3 %0.0-0.5FOhio Valley Surgical HospitalLeukocytes [#/volume] corrected for nucleated erythrocytes in Blood by Automated counon 06-64-8202MLN corrected for nucl RBC Auto (Bld) [#/Vol]Leukocytes [#/volume] corrected for nucleated erythrocytes in Blood by Automated counLow4.0-11.0[facility] HospitalLymphocytes Auto (Bld) [#/Vol]on 85-03-3030Rjbyeassyij (Bld) [#/Vol]Lymphocytes [#/volume] in Blood by Automated countLow1.2-3.8[facility] HospitalLymphocytes/100 WBC Auto (Bld)on 10-14-2024 Lymphocytes/100 WBC (Bld)Lymphocytes/100 leukocytes in Blood by Automated count 20.5-60.0[facility] HospitalMCH Auto (RBC) [Entitic mass]on 67-97-1433HTV (RBC) [Entitic mass]MCH [Entitic mass] by Automated count26.7-34.0 [facility] HospitalMCHC Auto (RBC) [Mass/Vol]on 29-79-6492CEPB (RBC) [Mass/Vol]MCHC [Mass/volume] by Automated count29.9-35.2FOhio Valley Surgical HospitalMCV Auto (RBC) [Entitic vol]on 84-97-4549VTI (RBC) [Entitic vol] MCV [Entitic volume] by Automated count81.0-99.0[facility] HospitalMonocytes Auto (Bld) [#/Vol]on 68-41-9043Oomaghcqr (Bld) [#/Vol]Automated blood monocyte countLow0.3-0.8[facility] HospitalMonocytes/100 WBC Auto (Bld)on 01-07-5724Yfnytnwcr/100 WBC (Bld)Automated monocyte %1.7-12.0 [facility] HospitalNeutrophils Auto (Bld) [#/Vol]on 10-14-2024 Neutrophils (Bld) [#/Vol]Neutrophils [#/volume] in Blood by Automated count 1.4-6.5FOhio Valley Surgical HospitalNeutrophils/100 WBC Auto (Bld)on 14-73-3631Qxagrccjtxh/100 WBC (Bld)Automated neutrophil %43.0-75.0[facility] HospitalNo Panel Informationon 65-88-1861L-Xmdxapd12.2 ng/mL Abnormal1.1-4.4FOhio Valley Surgical HospitalComment on above:C-Peptide reference interval is for fasting patients.Performed at: [employer] [facility] [id number] Director: Rafita Thomas PhD, Phone: [phone] # (Auto)0.1 10 3/uL0.0-0.7FOhio Valley Surgical HospitalImmature Granulocyte # (Auto)0.01 10 3/uL0.00-0.03[facility] HospitalPlatelet mean volume Auto (Bld) [Entitic vol]on 94-89-1253Ldqkxexu mean volume (Bld) [Entitic vol]Platelet mean volume [Entitic volume] in Blood by Automated countLow9.5-13.5FOhio Valley Surgical HospitalPlatelets Auto (Bld) [#/Vol]on 65-27-0322Jdjmjtqwf (Bld) [#/Vol]Platelets [#/volume] in Blood by Automated mhyou367-688YwnpopmdpCleveland Clinic Lutheran HospitalRBC Auto (Bld) [#/Vol]on 12-19-5712DIS (Bld) [#/Vol]Erythrocytes [#/volume] in Blood by Automated count 4.20-5.40[facility] Hospitalerum or plasma albumin/globulin mass ratioon 93-53-4762Nzgkriz/Globulin [Mass ratio]Serum or plasma albumin/globulin mass ratioAvita Health System Bucyrus Hospitalerum or plasma anion gap determinationon 87-02-3769Jeucp gap [Moles/Vol]Serum or plasma anion gap determinationAvita Health System Bucyrus Hospitalerum or plasma glucose measurement 2 hours post 75 gm oral glucose (mass/volume)on 73-35-7460Unlxsxm 2 Hr post 75 g glucose PO [Mass/Vol]Serum or plasma glucose measurement 2 hours post 75 gm oral glucose (mass/volume)[facility] HospitalComment on above:GLU FAST 87 (<95) Col: 10/14/24 0843 GLU 1HR 111 (<180) Col: 10/14/24 0947 GLU 2HR 81 (<155) Col: 10/14/24 1047Serum or plasma total cholesterol/high density lipoprotein (HDL) cholesterol mass hussain 10-14-2024 Cholesterol.total/Cholesterol in HDL [Mass ratio]Serum or plasma total cholesterol/high density lipoprotein (HDL) cholesterol mass ratCleveland Clinic Lutheran HospitalComment on above:3.3 - 4.4 LOW RISK4.4 - 7.1 AVERAGE RISK7.1 - 11.0 MODERATE RISK>11.0 HIGH RISKIGP,APTIMA HPV,AGE GDLNon 06-11-2024 AGE GDLN ACOG TESTINGNote.NOMS HealthcareComment on above:TESTS RESULT FLAG UNITS REF RANGE LAB Clinician Provided Cytology Information Source.............Vagina No. of containers..01 ThinPrep Vial Age Algo ACOG Nichole... FLAG LEGEND: L-Low Normal,H-High Normal,LL-Alert Low,HH-Alert High <-Panic Low,>-Panic High,A-Abnormal,AA-Critical Abnormal Performed at: 01 =[address] [address] Seble Lopez MD, HPV APTIMANegativeNegativeNOMS HealthcareComment on above:This nucleic acid amplification test detects fourteen high- risk HPV types (16,18,31,33,35,39,45,51,52,56,58,59,66,68) without differentiation. Performed at: =[address] [id number] Counseling Services Director: Seble Lopez MD, Phone: [phone] Performed at: [address] [id number] Counseling Services Director: Seble Lopez MD, Phone: [phone] IGP, APTIMA HPV, RFX 16/18,45Note.NOMS HealthcareComment on above:TESTS RESULT FLAG UNITS REF RANGE LAB DIAGNOSIS: 02 NEGATIVE FOR INTRAEPITHELIAL LESION OR MALIGNANCY. Specimen adequacy: 02 Satisfactory for evaluation. Performed by: [place], [employer] ([employer]) . 02 Note: Note 02 The [...] <-Panic Low,>-Panic High,A-Abnormal,AA-Critical Abnormal Performed at: [address] [place] [address] Seble Lopez MD, SPATULA-ALONE VAGINA CLINISYNCNOMS [facility] papilloma virus 16+18+31+33+35+39+45+51+52+56+58+59+66+68 DNA [Presence] in Raul 96-13-7363SQN 16+18+31+33+35+39+45+51+52+56+58+59+66+68 DNA Probe+sig amp Ql (Cvx)Negative NegativeCleveland Clinic Lutheran HospitalComment on above:This nucleic acid amplification test detects fourteen high-risk HPV types (16,18,31,33,35,39,45,51,52,56,58,59,66,68)without differentiation.Performed at: = - Lab[address] [id number] Director: Seble Lopez MD, Phone: [phone] at: [address] [id number] Director: Seble Lopez MD, Phone: [phone] Panel Informationon 61-59-0305WNE High Risk Other CommentNote. [facility] HospitalComment on above:TESTS RESULT FLAG UNITS REF RANGE LAB DIAGNOSIS: 02 NEGATIVE FOR INTRAEPITHELIAL LESION OR MALIGNANCY.Specimen adequacy: 02 Satisfactory forevaluation.Performed by: [place] [employer] ([facility]). 02Note: Note 02 The Pap smear [...] <-Panic Low,>-Panic High,A-Abnormal,AA-Critical Abnormal Performed at:[address] [place] [address] Seble Lopez MD, Lqxttqiol Lab Test Patient AgeNote.[facility] HospitalComment on above:TESTS RESULT FLAG UNITS REF RANGE LAB Clinician Provided Cytology Information Source.............Vagina No. of containers..01 ThinPrep VialAge Meño PERSON Nichole... 3065 FLAG LEGEND: L- Low Normal,H-High Normal,LL-Alert Low,HH-Alert High <-Panic Low,>-Panic High,A-Abnormal,AA-Critical Abnormal Performed at:01 =G [address] [address] Seble Lopez MD, Fnmmcdvww Auto (Bld) [#/Vol]on 25-54-5860Hiuuxfmgn (Bld) [#/Vol]0.0 10 3/uL0.0-0.1FOhio Valley Surgical HospitalBasophils/100 WBC Auto (Bld)on 34-68-8016Cexjgedsj/100 WBC (Bld)1.2 %0.2-2.0[facility] HospitalCholesterol in LDL Calc [Mass/Vol]on 97-19-7331Bwfihidcnui in LDL [Mass/Vol]143.0 mg/dLCleveland Clinic Lutheran HospitalComment on above:<100 mg/dl JFIQWGA762-662 mg/dl NEAR OR ABOVE GHUYFIB118-724 mg/dl BORDERLINE IBSY743-638 mg/dl HIGH>190 mg/dl VERY HIGHCholesterol in VLDL Calc [Mass/Vol]on 65-93-8166Aphqfqwctrc in VLDL [Mass/Vol]14.4 mg/dLCleveland Clinic Lutheran HospitalEosinophils/100 WBC Auto (Bld)on 52-64-6538Gtjfcskkmzt/100 WBC (Bld)1.2 % 0.9-7.0[facility] HospitalErythrocyte distribution width Auto (RBC) [Ratio]on 88-50-3734Wzdaakklxxt distribution width (RBC) [Ratio]11.9 % 11.0-15.0[facility] HospitalEstimated glomerular filtration rate (GFR) non- Americanon 66-31-1177AVP/1.73 sq M.predicted among non-blacks MDRD (S/P/Bld) [Vol rate/Area]mL/min/{1.73_m2}>=60[facility] HospitalGlobulin Calc (S) [Mass/Vol]on 25-50-2728Xjyvsaqg (S) [Mass/Vol]4.2 g/dL [facility] HospitalGlucose mean value [Mass/volume] in Blood Estimated from glycated hemoglobinon 29-22-9924Bmrurxy glucose Estimated from glycated hemoglobin (Bld) [Mass/Vol]105 mg/dLCleveland Clinic Lutheran Hospital Hematocrit Auto (Bld) [Volume fraction]on 55-15-8847Yfadgqmsrs (Bld) [Volume fraction]33.4 %Low36.0-48.0[facility] HospitalHemoglobin [Mass/volume] in Bloodon 81-63-2866Wpxpsbyfks (Bld) [Mass/Vol]11.1 g/dLLow 12.0-16.0[facility] HospitalLaboratory - Chemistry and Chemistry - challengeon 73-48-5126Mwotmcf [Mass/Vol]3.0 g/dLLow3.4-5.0[facility] HospitalALP [Catalytic activity/Vol]93 U/M05-952HgeszjybdCleveland Clinic Lutheran HospitalALT [Catalytic activity/Vol]24 U/E37-36ZagucpqhiCleveland Clinic Lutheran Hospital AST [Catalytic activity/Vol]22 U/N34-68YdstdvzddC[facility] Clinic Luther[facility] Hospital Bilirubin [Mass/Vol]0.6 mg/dL0.2-1.0[facility] HospitalCalcium [Mass/Vol]9.0 mg/dL8.5-10.1FOhio Valley Surgical HospitalChloride [Moles/Vol] 104 mmol/Z98-809KxuwqswsfCleveland Clinic Lutheran HospitalCholesterol [Mass/Vol]212 mg/dL High<=200[facility] HospitalCholesterol in HDL [Mass/Vol]55 mg/dL 40-60[facility] HospitalComment on above:> or =60 mg/dl - LOW CARDIOVASCULAR RISK<40 mg/dl - HIGH CARDIOVASCULAR RISKCO2 [Moles/Vol]30.3 mmol/L21.0-32.0[facility] HospitalCreatinine [Mass/Vol]0.80 mg/dL 0.55-1.02[facility] HospitalGFR/1.73 sq M.predicted MDRD (S/P/Bld) [Vol rate/Area]mL/min/{1.73_m2}>=60[facility] HospitalGlucose [Mass/Vol]103 mg/yM08-636PbmpfumqsCleveland Clinic Lutheran HospitalPotassium [Moles/Vol] 3.6 mmol/L3.5-5.1FOhio Valley Surgical HospitalProtein [Mass/Vol]7.2 g/dL 6.4-8.2FOur Lady of Mercy Hospitalodium [Moles/Vol]143 mmol/V959-605 [facility] HospitalTriglyceride [Mass/Vol]72 mg/dL<=150[facility] HospitalUrea nitrogen [Mass/Vol]15.0 mg/dL7.0-18.0[facility] HospitalUrea nitrogen/Creatinine [Mass ratio]18.8 mg/mgCleveland Clinic Lutheran HospitalLaboratory - Hematology and Cell countson 66-83-4220HpY2t (Bld) [Mass fraction]5.3 %4.5-6.2FOhio Valley Surgical HospitalComment on above:ADA RECOMMENDED LIMIT 4.0 - 6.0ADA THERAPEUTIC TARGET < 7.0ACTION SUGGESTED> 7.0Immature granulocytes/100 WBC (Bld)0.0 %0.0-0.5FOhio Valley Surgical HospitalLeukocytes [#/volume] corrected for nucleated erythrocytes in Blood by Automated counon 17-44-3777CXW corrected for nucl RBC Auto (Bld) [#/Vol]3.3 10 3/uLLow4.0-11.0[facility] HospitalLymphocytes Auto (Bld) [#/Vol]on 20-56-3200Chotoeraepa (Bld) [#/Vol]1.1 10 3/uLLow1.2-3.8 [facility] HospitalLymphocytes/100 WBC Auto (Bld)on 03-27-2024 Lymphocytes/100 WBC (Bld)32.4 %20.5-60.0[facility] HospitalH Auto (RBC) [Entitic mass]on 03-92-5395SRX (RBC) [Entitic mass]31.3 pg26.7-34.0 [facility] HospitalMCHC Auto (RBC) [Mass/Vol]on 67-37-8679WZLT (RBC) [Mass/Vol]33.2 g/dL29.9-35.2FOhio Valley Surgical HospitalMCV Auto (RBC) [Entitic vol]on 44-26-7797WGO (RBC) [Entitic vol]94.1 fL81.0-99.0[facility] HospitalMonocytes Auto (Bld) [#/Vol]on 57-18-0631Nbjkrbwmz (Bld) [#/Vol]0.4 10 3/uL0.3-0.8[facility] HospitalMonocytes/100 WBC Auto (Bld)on 22-05-6074Ynituxutv/100 WBC (Bld)10.6 %1.7-12.0[facility] HospitalNeutrophils Auto (Bld) [#/Vol]on 93-29-7910Mwismcmzgsq (Bld) [#/Vol]1.8 10 3/uL1.4-6.5FOhio Valley Surgical HospitalNeutrophils/100 WBC Auto (Bld)on 01-95-9906Wfahtvjtqnh/100 WBC (Bld)54.6 %43.0-75.0[facility] HospitalNo Panel Informationon 75-49-6036Eoqgffnucbt # (Auto)0.0 10 3/uL0.0-0.7FOhio Valley Surgical HospitalImmature Granulocyte # (Auto)0.00 10 3/uL0.00-0.03[facility] HospitalPlatelet mean volume Auto (Bld) [Entitic vol]on 44-75-0812Zsbiexfn mean volume (Bld) [Entitic vol]8.8 fL Low9.5-13.5FOhio Valley Surgical HospitalPlatelets Auto (Bld) [#/Vol]on 86-22-1744Vnpmttyxv (Bld) [#/Vol]393 10 3/gY006-959EsfwhoeyjCleveland Clinic Lutheran HospitalRBC Auto (Bld) [#/Vol]on 41-01-0961HOY (Bld) [#/Vol]3.55 10 6/uLLow 4.20-5.40[facility] Hospitalerum or plasma albumin/globulin mass ratioon 53-68-7068Bdnqupk/Globulin [Mass ratio]0.7 {ratio}[facility] Hospitalerum or plasma anion gap determinationon 41-88-4821Yrekj gap [Moles/Vol]12.3 mmol/LFOur Lady of Mercy Hospitalerum or plasma total cholesterol/high density lipoprotein (HDL) cholesterol mass hussain 03-27-2024 Cholesterol.total/Cholesterol in HDL [Mass ratio]3.9 {ratio}[facility] Luther[facility] HospitalComment on above:3.3 - 4.4 LOW RISK4.4 - 7.1 AVERAGE RISK7.1 - 11.0 MODERATE RISK>11.0 HIGH RISKFibrin D-dimer [Presence] in Platelet poor plasma by Latex agglutinationon 30-25-7017Rvozol D-dimer LA Ql (PPP)1.05 mg/L FEUHigh<=0.59C[facility] Luther[facility] HospitalComment on above:RESULTS CALLED TO MARYSE SINGLETON [...] thrombolyticor anticoagulant therapy, stress, and generalizedhospitalization. DIHYDROTESTOSTERONEon 25-66-9317Vcokjsyejyzvsbihnyz27 ng/dLGalion HospitalComment on above:Result Comment: This test was developed and its performance characteristics determined by [facility]. It has not been cleared or approved by the Food and Drug Administration. Reference Range: Adult Female: 4 - 22Performed By: #### DHT #### [facility] [address] [place] [address] Dr. Manny EllerTESTOSTERONE, FREE,DIRECT, TOTALon 40-84-8340Ktef Testosterone(Direct)1.7 pg/mLNormal0.0-4.2The [facility] HospitalComment on above: Result Comment: Performed at: BNPerformed By: #### TESTFRD #### [facility] [address] [place] [address] Dr. Manny EllerTestosterone [Mass/Vol]32 ng/dLNormal4-50[facility] Comment on above:Result Comment: Performed at: CBPerformed By: #### TESTFRD #### [facility] [address] [place] [address] Dr. Manny TadeoEA-SULFATEon 91-52-7821EEPM-Xhlrjvj588.0 ug/gRQwquqz26.2-243.7 The [facility] HospitalComment on above:Performed By: #### DHEASUL #### [facility] [address] [place] [address] Dr. Manny EllerMG MAMM SCREEN 3D ELOY CADon 22-86-1627BB MAMM SCREEN 3D ELOY CAD Patient: JENNIFER ZAMORA Exam Date: 11/30/2022 : 1970 Gender:F Ordering : DR ARMANDO MARTINEZ . Admission #: [id number] Family : Order #: [id number] CLICK HERE TO VIEW EXAM RADIOLOGY REPORT [...] Treatments None Family Cancers None LOCATION: [facility] BREAST COMPOSITION: Scattered areas fibroglandular [...] MD on 11/30/2022 at 13:49 Approved by: Carlso Gabriel MD on 11/30/2022 at 13:57[facility] COVID/FLU RT-PCRon 83-21-6617ZYMQ-CoV-2 (COVID-19) RNA BOB+probe Ql (Unsp spec) PositiveCou[facility] Other COVID/FLU RT-PCRNegativeCoulee Medical Center [facility]shibore[facility] Other CORTISOLon 47-49-0227Wufikmdf5.8 ug/dLNoLakeHealth Beachwood Medical CenterComment on above:Result Comment: Cortisol AM 6.2 - 19.4 Cortisol PM 2.3 - 11.9Performed By: #### DHT #### [facility] [address] [place] [address] Dr. Manny EllerTESTOSTERONE, FREE,DIRECT, TOTALon 15-56-7251Rbsz Testosterone(Direct)<0.5Oboulg5.0-4.2The [facility] Hospital At SouthwoodsComment on above: Result Comment: Performed at: BNPerformed By: #### TESTFRD #### [facility] [address] [place] [address] Dr. Manny EllerTestosterone [Mass/Vol]ng/dLCritically low4-50The [facility] Hospital At SouthwoodsComment on above:Result Comment: Performed at: CBPerformed By: #### TESTFRD #### [facility] [address] [place] [address] Dr. Manny EllerCORTISOLon 02-40-4566Fmrrdzsv8.5 ug/dLGalion Hospital Comment on above:Result Comment: Cortisol AM 6.2 - 19.4 Cortisol PM 2.3 - 11.9Performed By: #### CORTISO #### [facility] [address] [place] [address] Dr. Manny TadeoEA-SULFATEon 29-77-8678OILM-Vkaqlhl33.2 ug/dLCritically low 41.2-243.7ThHolzer HospitalComment on above:Performed By: #### DHEASUL #### [facility] [address] [place] [address] Dr. Manny GarciaTRADIOLon 76-11-0998Jhhvjiizb63.9 pg/mLNSamaritan North Health CenterComment on above:Result Comment: Adult Female: Follicular phase 12.5 - 166.0 Ovulation phase 85.8 - 498.0 Luteal phase 43.8 - 211.0 Postmenopausal <6.0 - 54.7 1st trimester 215.0 - >4300.0 [place] ECLIA methodologyPerformed By: #### CMP, LIPID #### [facility] [address] [place] [address] Dr. Manny GarciaTRONEon 09-27-9874Unmtsyx, Serum<6NormalThHolzer Hospital Comment on above:Result Comment: Range Adult (Premenopausal) 27 - 231 Menstrual Cycle (1-10 days) 19 - 149 Menstrual Cycle (11-20 days) 32 - 176 Menstrual Cycle (21-30 days) 37 - 200 Adult (Postmenopausal) 0 - 125Performed By: #### ESTRONE #### [facility] [address] [place] [address] Dr. Manny EllerPROGESTERONEon 86-31-2297Ilkffdifpclp<0.1NSamaritan North Health CenterComment on above:Result Comment: Follicular phase 0.1 - 0.9 Luteal phase 1.8 - 23.9 Ovulation phase 0.1 - 12.0 First trimester 11.0 - 44.3 Second trimester 25.4 - 83.3 Third trimester 58.7 - 214.0 Postmenopausal 0.0 - 0.1Performed By: #### CMP, LIPID #### [facility] [address] [place] [address] Dr. Manny LukeX HORMONE-BINDING GLOBULINon 09-06-4944Hxt Horm Binding Glob, Serum55.9 nmol/CBgjygi14.3-125.0The [facility] Hospitalment on above:Performed By: #### SEXHBG #### [facility] [address] [place] [address] Dr. Manny EllerGLYCOHEMOGLOBIN A1Con 51-61-9761SNV RECOMMENDATIONSEE BELOWNormal The [facility] HospitalComment on above:Result Comment: ADA RECOMMENDED LIMIT 4.0 - 6.0 ADA THERAPEUTIC TARGET < 7.0 ACTION SUGGESTED > 7.0Performed By: #### DHT #### [facility] [address] [place] [address] Dr. Manny EllerGlucose [Mass/Vol]108 mg/dLNoLakeHealth Beachwood Medical CenterComment on above:Performed By: #### DHT #### [facility] [address] [place] [address] Dr. Manny EllerHbA1c (Bld) [Mass fraction]5.4 %Normal4.5-6.2The [facility] HospitalComment on above:Performed By: #### DHT #### [facility] [address] [place] [address] Dr. Manny EllerPOTASSIUMon 55-97-0870Ngkbhgnsa [Moles/Vol]3.6 mmol/LNormal 3.5-5.1The [facility] on above:Performed By: #### CMP, LIPID #### [facility] [address] [place] [address] Dr. Manny EllerVITAMIN D 25 OHon 62-83-4166NCP D 25-OH37.3 ng/mLNormalThe [facility] HospitalComup health system on above:Performed By: #### DHT #### [facility] [address] [place] [address] Dr. Manny Fish D RANGESSEE BELOWGalion HospitalComup health system on above: Result Comment: <20 ng/mL Vit D deficient 20 - <30 ng/mL Vit D insufficient 30 - 100 ng/mL Vit D sufficient >100 ng/mL Potential ToxicityPerformed By: #### DHT #### [facility] [address] [place] [address] Dr. Manny Yip AUTO DIFFon 74-54-1177LHDN #0.1 103/ulNormal0.0-0.1The [facility] HospitalComment on above:Performed By: #### CMP, LIPID #### [facility] [address] [address] [address] Manny EllerBasophils/100 WBC (Bld)1.1 %Normal0.2-2.0[facility] Comment on above:Performed By: #### CMP, LIPID #### [facility] [address] [address] [address] Manny Weinstein #0.1 103/ulNormal0.0-0.7The [facility] HospitalComment on above: Performed By: #### CMP, LIPID #### [facility] [address] [place] [address] Dr. Manny Urbanoosinophils/100 WBC (Bld)1.1 %Normal0.9-7.0[facility] Comment on above:Performed By: #### CMP, LIPID #### [facility] [address] [address] [address] Manny Urbanorythrocyte distribution width (RBC) [Ratio]12.2 %Sxryfx88.0-15.0 The [facility] HospitalComment on above:Performed By: #### CMP, LIPID #### [facility] [address] [place] [address] Dr. Manny EllerHematocrit (Bld) [Volume fraction]42.9 %Gpihwi52.0-48.0The [facility] HospitalComment on above:Performed By: #### CMP, LIPID #### [facility] [address] [place] [address] Dr. Manny EllerHemoglobin (Bld) [Mass/Vol]15.0 g/kURkswmi63.0-16.0The [facility] HospitalComment on above:Performed By: #### CMP, LIPID #### [facility] [address] [place] [address] Dr. Manny Esparza #0.01 10e3/ulNormal0.00-0.03The [facility] HospitalComment on above:Performed By: #### CMP, LIPID #### [facility] [address] [place] [address] Dr. Manny Esparza %0.2 %Normal0.0-0.5The [facility] HospitalComment on above: Performed By: #### CMP, LIPID #### [facility] [address] [place] [address] Dr. Manny Calderon #1.3 103/ulNormal1.2-3.8The [facility] HospitalComment on above:Performed By: #### CMP, LIPID #### [facility] [address] [place] [address] Dr. Manny Hunterhocytes/100 WBC (Bld)28.4 %Xaiepj37.5-60.0The [facility] HospitalComment on above:Performed By: #### CMP, LIPID #### [facility] [address] [place] [address] Dr. Manny MorelosUAL DIFF REQNONormalThe [facility] HospitalComment on above: Performed By: #### CMP, LIPID #### [facility] [address] [place] [address] Dr. Manny Rodriguez (RBC) [Entitic mass]32.3 oxTayfnt73.7-34.0The [facility] HospitalComment on above:Performed By: #### CMP, LIPID #### [facility] [address] [place] [address] Dr. Manny Jimenez (RBC) [Mass/Vol]35.0 g/cZGdonwm95.9-35.2The [facility] HospitalComment on above:Performed By: #### CMP, LIPID #### [facility] [address] [place] [address] Dr. Manny Jimenez (RBC) [Entitic vol]92.5 tYFkkdmm29.0-99.0The [facility] HospitalComment on above:Performed By: #### CMP, LIPID #### [facility] [address] [place] [address] Dr. Manny Lockhart #0.3 103/ulNormal0.3-0.8The [facility] HospitalComment on above:Performed By: #### CMP, LIPID #### [facility] [address] [place] [address] Dr. Manny Baileyocytes/100 WBC (Bld)7.0 %Normal1.7-12.0[facility] Comment on above:Performed By: #### CMP, LIPID #### [facility] [address] [place] [address] Dr. Manny Membreno #2.8 103/ulNormal1.4-6.5The [facility] HospitalComment on above:Performed By: #### CMP, LIPID #### [facility] [address] [place] [address] Dr. Manny Berriosutrophils/100 WBC (Bld)62.2 %Uqihtp86.0-75.0The [facility] HospitalComment on above:Performed By: #### CMP, LIPID #### [facility] [address] [place] [address] Dr. Manny De La Cruzlet mean volume (Bld) [Entitic vol]9.6 fLNormal9.5-13.5The [facility] HospitalComment on above:Performed By: #### CMP, LIPID #### [facility] [address] [place] [address] Dr. Manny EllerPLT322 103/ctShtmau599-755Uor [facility] HospitalComment on above: Performed By: #### CMP, LIPID #### [facility] [address] [place] [address] Dr. Manny EllerRBC4.64 106/ulNormal4.20-5.40The [facility] HospitalComment on above:Performed By: #### CMP, LIPID #### [facility] [address] [place] [address] Dr. Manny EllerWBC4.6 103/ulNormal4.0-11.0The [facility] HospitalComment on above: Performed By: #### CMP, LIPID #### [facility] [address] [address] [address] Manny PadillaID PROFILEon 60-25-2021VFKL-HDL RATIO NORMSGerman HospitalComment on above:Result Comment: 3.3 - 4.4 LOW RISK 4.4 - 7.1 AVERAGE RISK 7.1 - 11.0 MODERATE RISK >11.0 HIGH RISKPerformed By: #### CMP, LIPID #### [facility] [address] [address] [address] Manny EllerCholesterol [Mass/Vol]171 mg/dLNormal<=200The [facility] Comment on above:Performed By: #### CMP, LIPID #### [facility] [address] [place] [address] Dr. Manny EllerCholesterol in HDL [Mass/Vol]49 mg/xHBzwqyj89-09LzeThe Surgical Hospital At SouthwoodsComment on above:Performed By: #### CMP, LIPID #### [facility] [address] [place] [address] Dr. Manny EllerCholesterol in LDL [Mass/Vol]103.4 mg/dLGalion HospitalComment on above:Performed By: #### CMP, LIPID #### [facility] [address] [place] [address] Dr. Manny Rodriguezesterozzie.total/Cholesterol in HDL [Mass ratio]3.5 {ratio} NormalThe Surgical Hospital At SouthwoodsComment on above:Performed By: #### CMP, LIPID #### [facility] [address] [place] [address] Dr. Manny Pepper NORMAL> or = 60 mg/dl - LOW CARDIOVASCULAR RISK <40 mg/dl - HIGH CARDIOVASCULAR RISKGalion HospitalComment on above:Performed By: #### CMP, LIPID #### [facility] [address] [place] [address] Dr. Manny EllerLDL CALC NORMALSEE [facility] Rehabilitation HospitalComment on above:Result Comment: <100 mg/dl OPTIMAL 100 - 129 mg/dl NEAR OR ABOVE OPTIMAL 130 - 159 mg/dl BORDERLINE HIGH 160 - 189 mg/dl HIGH >190 mg/dl VERY HIGH Performed By: #### CMP, LIPID #### [facility] [address] [address] [address] Manny EllerTriglyceride [Mass/Vol]93 mg/dLNormal<=150The [facility] Comment on above:Performed By: #### CMP, LIPID #### [facility] [address] [address] [address] Manny EllerVLDL CALC18.6 mg/dLNormalThe [facility] HospitalComment on above: Performed By: #### CMP, LIPID #### [facility] [address] [place] [address] Dr. Manny EllerPROAguila 14(COMP METB)on 72-12-3816Oggprzh [Mass/Vol]3.8 g/dLNormal 3.4-5.0The [facility] HospitalComment on above:Performed By: #### CMP, LIPID #### [facility] [address] [place] [address] Dr. Manny EllerAlbumin/Globulin [Mass ratio]1.1 {ratio}NormalThe [facility] HospitalComment on above:Performed By: #### CMP, LIPID #### [facility] [address] [place] [address] Dr. Manny Funes [Catalytic activity/Vol]73 U/NVmojkb09-014Fgp [facility] HospitalComment on above:Performed By: #### CMP, LIPID #### [facility] [address] [place] [address] Dr. Manny Meredith [Catalytic activity/Vol]39 U/GXndynv02-51Eyq [facility] HospitalComment on above:Performed By: #### CMP, LIPID #### [facility] [address] [place] [address] Dr. Manny Gordon gap [Moles/Vol]11.6 mmol/LNormalThe [facility] Comment on above:Performed By: #### CMP, LIPID #### [facility] [address] [place] [address] Dr. Manny Edwards [Catalytic activity/Vol]23 U/XRugggx78-86Cqv [facility] HospitalComment on above:Performed By: #### CMP, LIPID #### [facility] [address] [address] [address] Manny EllerBilirubin [Mass/Vol]0.7 mg/dLNormal0.2-1.0[facility] Comment on above:Performed By: #### CMP, LIPID #### [facility] [address] [place] [address] Dr. Manny EllerCalcium [Mass/Vol]9.3 mg/dLNormal8.5-10.1The [facility] Comment on above:Performed By: #### CMP, LIPID #### [facility] [address] [place] [address] Dr. Manny EllerChloride [Moles/Vol]101 mmol/YNmssny07-085Lnj [facility] Comment on above:Performed By: #### CMP, LIPID #### [facility] [address] [place] [address] Dr. Manny EllerCO2 [Moles/Vol]31.2 mmol/HWpfbjv99.0-32.0The [facility] Comment on above:Performed By: #### CMP, LIPID #### [facility] [address] [place] [address] Dr. Manny EllerCreatinine [Mass/Vol]0.87 mg/dLNormal0.55-1.02The [facility] HospitalComment on above:Performed By: #### CMP, LIPID #### [facility] [address] [place] [address] Dr. Manny UrbanoGFR-AF IRANIAN>60Normal>=60The [facility] HospitalComment on above:Performed By: #### CMP, LIPID #### [facility] [address] [place] [address] Dr. Manny UrbanoGFR-NON AF IRANIAN>60Normal>=60The [facility] HospitalComment on above:Performed By: #### CMP, LIPID #### [facility] [address] [place] [address] Dr. Manny EllerGlobulin (S) [Mass/Vol]3.6 g/dLNormCoshocton Regional Medical CenterComment on above:Performed By: #### CMP, LIPID #### [facility] [address] [place] [address] Dr. Manny EllerGlucose [Mass/Vol]124 mg/dLCritically wxhj77-288Ukc [facility] HospitalComment on above:Performed By: #### CMP, LIPID #### [facility] [address] [place] [address] Dr. Manny EllerPotassium [Moles/Vol]2.8 mmol/LCritically low3.5-5.1The [facility] HospitalComment on above:Performed By: #### CMP, LIPID #### [facility] [address] [place] [address] Dr. Manny EllerProtein [Mass/Vol]7.4 g/dLNormal6.4-8.2[facility] Comment on above:Performed By: #### CMP, LIPID #### [facility] [address] [place] [address] Dr. Manny EllerSodium [Moles/Vol]141 mmol/UTbihve257-007Jec [facility] Comment on above:Performed By: #### CMP, LIPID #### [facility] [address] [place] [address] Dr. Manny EllerUrea nitrogen [Mass/Vol]15.0 mg/dLNormal7.0-18.0The [facility] HospitalComment on above:Performed By: #### CMP, LIPID #### [facility] [address] [place] [address] Dr. Manny EllerUrea nitrogen/Creatinine [Mass ratio]17.2 mg/mgNoLakeHealth Beachwood Medical CenterComment on above:Performed By: #### CMP, LIPID #### [facility] [address] [place] [address] Dr. Manny Marshall Visit (Cardiology)on 46-88-3770Hakzsz-up visit Diagnoses/Problems Assessed Palpitations (785.1) (R00.2) NSVT [...] Recorded: 18Jul2022 01:41PM Heart Rate68, L Radial Awxfzkla018, LUE, Sitting Xmjodqlvc88, LUE, Sitting Height5 ft 7 in Thqjfq702 lb 4 oz BMI Fcyqlwypxo13.54 kg/m2 BSA Ca (more content not included)...NormalUH TouchworksTobacco Screening.on 71-13-5193Eqojs depression screening assessmentNo-Located Within [facility] [employer] 250 DO Work Phone: Tobacco use status CPHSb) NoMP-Located Within [facility] [employer] 250 DO Work Phone: CT HEAD WO CONon 01-80-1805UU HEAD WO CONEXAMINATION: CT HEAD WO CON [...] by: ADAIR SCHMITT Date: 2022-07-15 11:31 NormalThe [facility] NECK WO W CONon 87-01-8940WGK NECK WO W CON EXAMINATION: CTA NECK [...] Electronically authenticated by: CARLOS RUBI Date: 2022-07-15 14:[address] [place], [place] [address]Urinalysis - AUTOMATEDon 43-19-1811Cknwnrsksm (U)clearNoPro [employer] Other Bilirubin Ql (U)NegativeNoStoractive [place] Other Color (U)orange yellowNoStoractive [place] Other Glucose Ql (U)100Nort [place] Other Hemoglobin Ql (U)smallNomercy [facility] south[facility] [place] Other Ketones Ql (U)traceNomercy hospital south, [facility] [place] Other Nitrite Ql (U)PositiveNoPro [employer] Other pH (U)6.5 [pH][place] Other Protein Ql (U)traceNomercy [facility] south, [facility] [place] Other Specific gravity (U) [Rel density]1.025[place] Other Urobilinogen (U) [Mass/Vol]1.0 mg/dLWaldport [place] Other Urinalysis - AUTOMATEDWaldport [place] Other Office Visit (Cardiology)on 87-96-1954Gtnleh-up visit Diagnoses/Problems Assessed NSVT (nonsustained ventricular tachycardia) [...] Vital Signs Recorded: 09Nov2021 02:37PMRecorded: 09Nov2021 02:32PM Ihxobnzx256, LUE, Nstmffr616, LUE, Sitting Fuecyfprf59, LUE, Tiotwls03, LUE, Sitting Heart Rate69, L Brachial Artery Height5 ft 7 in Msywgy320 lb BMI Hglfrcjxwd53.96 kg/m2 BSA Calculated2.17 Tobacco Useb) No Fall Screeningc) Not medical (more content not included)...NormalUH TouchTapestry Tobacco Screening.on 88-25-9238Tfqx risk assessmentc) Not medically indicatedEssentia Health-Rhinelander 250 DO Work Phone: Tobacco use status CPHSb) NoMAppleton Municipal Hospital- [facility]inel[facility] 250 DO Work Phone: COVID Quick Testingon 78-87-0773MnwsgfDxxxjpemClcsl [place] Other NO CARDIAC STRESS/REST INJECTIONon 74-64-8763GAB CARDIAC STRESS/REST INJECTIONMRN: [id number] Patient Name: JENNIFER ZAMORA STUDY: MYOCARDIAL PERFUSION STRESS TEST WITH EXERCISE Performing facility: [facility], [address] [place] [address] Provider: Joao Ramírez MD PCP: Dr. Beatrice Das Supervising provider: Joao Ramírez MD INDICATION: Abnormal EKG; Palpitations NSVT HISTORY: Gender: F; Age: 50 y/o ; Height: 170.18 cm; Weight: 820.2430176 kg. HTN; Palpitations; SOB; Denies smoking. COMPARISON: No comparison. ACCESSION NUMBER(S): [id number]; [id number]; [id number] ORDERING CLINICIAN: JOAO RAMÍREZ TECHNIQUE: TWO DAY [...] for comparison. Electronically signed by: JOAO RAMÍREZ MDExcela Health Vital Signs Date TimeVital SignValuePerforming ZuynatiwsWoadqeqz82-31-0978 13:59-0400Body etoaqs649.18 cmBenjamin Ball DO Work Phone: [facility]09-05-2025 13:59-0400 Body mass index (BMI) [Ratio]25.7 kg/b6Uwvoopdy Ball DO Work Phone: [facility]09-05-2025 13:59-0400 Body cgodcjhabzg45.9 [degF]Grady Ball DO Work Phone: [facility]09-05-2025 13:59-0400 Body ujzkfw00.55 kgBenjamin Ball DO Work Phone: [phone])[address] [place], [place] 2508809-05-2025 13:59-0400 Diastolic blood bvoixpmh05 mm[Hg]Grady Ball DO Work Phone: [phone])[address] [place], [place] 2508809-05-2025 13:59-0400 Heart rate97 /minBenjamin Ball DO Work Phone: [phone])[address] [place], [place] 2508809-05-2025 13:59-0400 Respiratory rate18 /minBenjamin Ball DO Work Phone: [phone])[address] [place], [place] 2508809-05-2025 13:59-0400 SaO2% (BldA) [Mass fraction]99 %Grady Ball DO Work Phone: [phone])[address] [place], [place] 2508809-05-2025 13:59-0400 Systolic blood omctzkyz237 mm[Hg]Grady Ball DO Work Phone: [phone])[address] [place], [place] 2508808-25-2025 08:40-0400 Body .18 cmBenjamin Ball DO Work Phone: [phone])[address] [place], [place] 2508808-25-2025 08:40-0400 Body mass index (BMI) [Ratio]26 kg/s5Tnwvadfp Ball DO Work Phone: [phone])[address] [place], [place] 2508808-25-2025 08:40-0400 Body jwylco27.52 kgBenjamin Ball DO Work Phone: [phone])[address] [place], [place] 2508808-25-2025 08:40-0400 Diastolic blood fucplcsi74 mm[Hg]Grady Ball DO Work Phone: 1(419)[address] [place], [place] 2508808-25-2025 08:40-0400 Heart rate76 /minBenjamin Ball DO Work Phone: [phone])[address] [place], [place] 2508808-25-2025 08:40-0400 Respiratory rate12 /minBenjamin Ball DO Work Phone: [phone])[address] [place], [place] 2508808-25-2025 08:40-0400 Systolic blood umhxcllj198 mm[Hg]Grady Ball DO Work Phone: [phone]07-22-2025 14:43-0400 Body .18 cmBenjamin Ball DO Work Phone: [phone] [place], [place] 1150907-22-2025 14:43-0400 Body mass index (BMI) [Ratio]24.9 kg/h6Ytcwpyva Ball DO Work Phone: 1(689)[address] [place], [place] 2508807-22-2025 14:43-0400 Body ainxyfuxgex70.1 [degF]Grady Ball DO Work Phone: 1(742)[address] [place], [place] 2508807-22-2025 14:43-0400 Body luokxz12.17 kgBenjamin Ball DO Work Phone: 1(821)[address] [place], [place] 2508807-22-2025 14:43-0400 Diastolic blood mm[Hg]Grady Ball DO Work Phone: 1(326)[address] [place], [place] 2508807-22-2025 14:43-0400 Heart rate86 /minBenjamin Ball DO Work Phone: 1(221)[address] [place], [place] 2508807-22-2025 14:43-0400 Respiratory rate14 /minBenjamin Ball DO Work Phone: 1(752)[address] [place], [place] 2508807-22-2025 14:43-0400 SaO2% (BldA) [Mass fraction]99 %Grady Ball DO Work Phone: 1(511)[facility] [place], [place] 1150907-22-2025 14:43-0400 Systolic blood swycujqz746 mm[Hg]Grady Ball DO Work Phone: 1(904)[facility]23[facility]02-26-2025 14:39-0500 Body swyelg462.18 cmCleveland Clinic Luther[facility] Hospital02-26-2025 14:39-0500Body mass index (BMI) [Ratio]25.7 kg/c0HmwzzvpbfC[facility] Clinic [facility]02-26-2025 14:39-0500Body .44 kgCleveland Clinic Luther[facility] Hospital02-26-2025 14:39-0500Diastolic blood yxczgyhc90 mm[Hg][facility] 12-10-2024 14:39-0500Heart wiph021 /[facility] 12-10-2024 14:39-0500Respiratory rate12 /[facility] 12-10-2024 14:39-0500Systolic blood mm[Hg][facility]02-19-2025 13:19-0500Respiratory rate18 /minStanley Orlop DO Work Phone: [facility]2025 10:30-0500Body osgwnlqepon65.7 [degF]Krish Orlop DO Work Phone: [facility]02-19-2025 10:30-0500Diastolic blood jwcsgauq35 mm[Hg]Krish Orlop DO Work Phone: [facility]02-19-2025 10:30-0500Heart rate99 /minStanley Orlop DO Work Phone: [facility]02-19-2025 10:30-3395OeR8% (BldA) [Mass fraction]99 %Krish Orlop DO Work Phone: [facility]02-19-2025 10:30-0500Systolic blood mm[Hg]Krish Orlop DO Work Phone: [facility]02-16-2025 21:15-0500Body uvexdu351.2 cmStanley Orlop DO Work Phone: [facility]02-16-2025 21:15-0500Body mass index (BMI) [Ratio]26.28 kg/v7Nzstozu Orlop DO Work Phone: [facility]02-16-2025 21:15-0500Body fdopgi64.11 kgStanley Orlop DO Work Phone: [facility]01-07-2025 14:59-0500Body mosvkm243.18 [facility] 14:59-0500Body mass index (BMI) [Ratio]26.3 kg/z1LqumqvmkyC[facility]01-07-2025 14:59-0500Body xhltyj81.2 kgC[facility]01-07-2025 14:59-0500Diastolic blood iwssickt86 mm[Hg][facility] 10-21-2024 14:59-0500Diastolic blood bbwkarxi58 mm[Hg][facility]01-07-2025 14:59-0500Heart rate80 /[facility] 10-21-2024 14:59-0500Respiratory rate12 /[facility] 10-21-2024 14:59-0500Systolic blood nxbtemmp382 mm[Hg][facility]01-07-2025 14:59-0500Systolic blood gmiuhxhq777 mm[Hg][facility]08-30-2024 17:20-0400Body chblgu634.18 [facility]08-30-2024 17:20-0400Body mass index (BMI) [Ratio]24.1 kg/m2 [facility]08-30-2024 17:20-0400Body yjzcczwsply20.1 [degF][facility]08-30-2024 17:20-0400Body sluexe51.96 kg [facility]08-30-2024 17:20-0400Diastolic blood clmspwis69 mm[Hg][facility]08-30-2024 17:20-0400Heart rate83 /min [facility]08-30-2024 17:20-0400Respiratory rate16 /min [facility]08-30-2024 17:20-2818NzD2% (BldA) [Mass fraction]99 %[facility]08-30-2024 17:20-0400Systolic blood rmrvufso836 mm[Hg][facility]05-08-2023 16:30-0400 Body .18 cmBenLSU, [place] Ball Other [facility] [place] Other 05-08-2023 16:30-0400Body mass index (BMI) [Ratio] 25.12 kg/i0Jhhuawoq Ball Other [employer] Other 05-08-2023 16:30-0400Body yjzqty58.76 kgBenjamin Ball Other [employer] Other 05-08-2023 16:30-0400Diastolic blood mtvfyrvw09 mm[Hg] Grady Ball Other [employer] Other 05-08-2023 16:30-0400Respiratory rate12 /minBenjamin Ball Other [employer] Other 05-08-2023 16:30-0400Systolic blood kefqkkmv274 mm[Hg] Grady Ball Other [employer] Other 02-06-2023 11:50-0500Body mctpha791.18 cmPamela Margoth Other [employer] Other 02-06-2023 11:50-0500Body mass index (BMI) [Ratio] 24.68 kg/w9Kprtey Margoth Other [employer] Other 02-06-2023 11:50-0500Body ifqlpvbwtju36.2 [degF]Clare Margoth Other [employer] Other 02-06-2023 11:50-0500Body dywcrk77.49 kgPamela Margoth Other [employer] Other 02-06-2023 11:50-0500Respiratory rate18 /minPamela Margoth Other [phone] [place] Other 02-06-2023 11:50-5607IsT3% (BldA) [Mass fraction]97 % Clare Justin [facility] [place] Other 10-04-2022 13:41-0400Body hianzj348.18 cmBenjamin E Ball Work Phone: [phone]-Kdcpv [employer] DO Work Phone: 1(356) 150-319010-04-2022 13:41-0400Body mass index (BMI) [Ratio] 28.54 kg/f9Qpzydmwq E Ball Work Phone: [phone]-Nmprv [employer] DO Work Phone: 1(209) 359-859210-04-2022 13:41-0400Body surface area Derived from formula1.94 e1Ydltjivd E Ball Work Phone: [phone]-Ponpe [employer] 250 DO Work Phone: 1(933) [phone] 13:41-0400Body ohnqgy19.67 kgBenjamin E Ball Work Phone: [phone]-Jegnn [employer] DO Work Phone: 1([phone]) [phone] 13:41-0400Diastolic blood totebfub60 mm[Hg] Grady E Ball Work Phone: [phone]-Mlrcd [employer] DO Work Phone: 1(850) [phone] 13:41-0400Heart rate68 /minBenjamin E Ball Work Phone: [phone]-Yswbj [employer] DO Work Phone: 1(380) 738-914510-04-2022 13:41-0400Systolic blood mm[Hg] Grady E Ball Work Phone: [phone]-Pfpnd [employer] DO Work Phone: 1(930) [phone] 14:42-0400Blood Pressure LocationJENNIFER CHARLEE [facility] [place] 05-10-2022 14:42-0400Diastolic blood qdxablic20 mm[Hg] MABLE CHARLEE [facility] [place] 05-10-2022 14:42-0400Heart rate84 /minJENNIFER CHARLEE [facility] [place] 05-10-2022 14:42-0400Systolic blood obwjzbtg177 mm[Hg] MABLE CHARLEE [facility] [place] 03-20-2022 15:45-0400Body qbeleh524.18 cmPamelgarrison Justin Other [employer] Other 03-20-2022 15:45-0400Body mass index (BMI) [Ratio] 34.45 kg/f3OpjfszClare Justin Other [employer] Other 03-20-2022 15:45-0400Body rldldutppep00.8 [degF]Clare Margoth Other [employer] Other 03-20-2022 15:45-0400Body .79 kgMarianoluis Crawfordmond Other [employer] Other 03-20-2022 15:45-0400Diastolic blood aoludifn33 mm[Hg] Clare Margoth Other [employer] Other 03-20-2022 15:45-0400Respiratory rate18 /Jonatan Justin Other [place] Other 03-20-2022 15:45-7750IbB0% (BldA) [Mass fraction]100 % Clare Justin Other [place] Other 03-20-2022 15:45-0400Systolic blood mm[Hg] Clare Justin Other [facility] [place] Other 01-26-2022 14:37-0500Diastolic blood uqsuvltn47 mm[Hg] Grady E Ball Work Phone: [phone]-Kllql [employer] DO Work Phone: 1(626) 238-680901-26-2022 14:37-0500Systolic blood gytlnrpn976 mm[Hg] Grady E Ball Work Phone: 1(921) [phone]-Lhvhw [employer] DO Work Phone: 1(564) 368-507901-26-2022 14:32-0500Body unibln814.18 cmBenjamin E Ball Work Phone: 1(837) [phone]-Lsvrc [employer] DO Work Phone: 1(114) 561-262301-26-2022 14:32-0500Body mass index (BMI) [Ratio] 36.96 kg/k2Vvcaixpa E Ball Work Phone: 1(310) [phone]-Fxlxh [employer] DO Work Phone: 1(245) [phone] 14:32-0500Body surface area Derived from formula2.17 w1Rpnjpuhh E Ball Work Phone: mp607-3946UU-Hzhzl [employer] DO Work Phone: 1(462) 335-843601-26-2022 14:32-0500Body xwcfad886.05 kgBenjamin E Ball Work Phone: 1(697) [phone]-Furlr [place] [employer] 250 DO Work Phone: 1(932) 561-973401-26-2022 14:32-0500Diastolic blood rskywxkn33 mm[Hg] Grady [employer] Work Phone: [phone]-Yqdrj [employer] DO Work Phone: 1(232) 105-669601-26-2022 14:32-0500Heart rate69 /minBenjamin E Ball Work Phone: mp215-4015BS-Gbkha [employer] 250 DO Work Phone: 1(879) 513-342001-26-2022 14:32-0500Systolic blood omvmlppl335 mm[Hg] Grady [employer] Work Phone: [phone]-Kssba [employer] DO Work Phone: 1(742) [phone] 15:45-0400Body qylwgx882.18 cmPamelgarrison CrawfordMargoth Other [employer] Other 10-20-2021 15:45-0400Body mass index (BMI) [Ratio] 37.59 kg/k2Kagzil Margoth Other [employer] Other 10-20-2021 15:45-0400Body fyvsgcxhopg54.2 [degF]Clare Margoth Other [employer] Other 10-20-2021 15:45-0400Body .86 kgClare Justin Other [employer] Other 10-20-2021 15:45-0400Respiratory rate18 /minClare Justin Other [employer] Other 10-20-2021 15:45-9803HdK4% (BldA) [Mass fraction]97 % Clare Margoth Other [employer] Other Encounters Encounter DateEncounter TypeCare ProviderFacilityStart: 83-83-6143uopvalavmu Kathy M. LueFacility:EU [place]walkStart: 06-19-2025 End: 37-10-6139ztsprfzxueThrvtsgv Ball DO Work Phone: [facility] Work Phone: Start: 06-19-2025 End: 77-21-4018Hfklccn encounter procedurePaluciana Jorgensen HOSTESS HOST-[facility] Work Phone: Start: 06-18-2025 End: 37-75-5260fnhetwjsjnMiqyf M. LueFacility:EU [place]orkStart: 06-18-2025 End: 00-19-1320Udwhtis encounter procedureRosmery Bronson [facility] Start: 06-08-2025 End: 03-38-0069bhtdkgdgaxOngtcttx Ball DO Work Phone: [facility] Work Phone: Start: 06-08-2025 End: 93-45-3741Pgregvqu ReferredBenjamin Ball DO-LAB [facility] Start: 06-08-2025 End: 41-11-9888fmjcwxqxphShrxhbni Ball DO Work Phone: [facility] Work Phone: Start: 06-08-2025 End: 39-52-6200Pluqlty encounter procedureBensergeymin Ball DO-[facility] Work Phone: Start: 53-86-6773Frz-patient / Non-visitCatherine Wu HEAVY EQUIPMENT OPERATOR/PAVER-[facility] Work Phone: Start: 06-02-2025 End: 28-76-7263aqwjnehoesHxjlf M. LueFacility:FTMCStart: 05-18-2025 End: 45-19-4127uduwhzvxfaGwclp M. LueFacility:FTMCStart: 05-05-2025 End: 70-86-0174vbluevmbsdInqpmdtb Pippa DO Work Phone: [facility] Work Phone: Start: 05-05-2025 End: 53-91-2248Ucswzhv encounter procedureShasha Isaac HOSTESS HOST-[facility] Work Phone: Start: 04-27-2025 End: 10-59-7904wzhvhigecvSqrvu M. LueFacility:EU [place]Start: 04-27-2025 End: 21-89-4412Vhmurac encounter procedureRosmery Bronson [facility] Start: 31-80-7234eoimamgcnoZkphj LueFacility:EU [place]kyStart: 12-10-2024 End: 62-53-4425mkavweejzoQtuhuapbtLicking Memorial Hospital Work Phone: Start: 12-10-2024 End: 38-57-4511Urezowi encounter procedureWilmer Physician Group-[facility] Work Phone: Start: 91-84-8408Zah-patient / Non-visitCritical Access Hospital Physician Group-[facility] Work Phone: Start: 11-30-2024 End: 66-90-4633Owpclynslp and management of inpatientSrachel Ferreira DO Work Phone: [facility] WestComment on above:GallstonesStart: 66-50-2778Wxo-patient / Non-visitCritical Access Hospital Physician Group-[facility] Work Phone: Start: 10-21-2024 End: 13-31-5940cpvmpoqnkpHjmuyciioSelect [facility] Work Phone: Start: 10-21-2024 End: 67-51-5568Gxdypndxp for general adult medical examination without abnormal findingsAvita Health System Bucyrus Hospitaltart: 10-21-2024 End: 70-11-3842Sdjtyfg encounter procedureCritical Access Hospital Physician GroupVeterans Health Administration Work Phone: Start: 12-25-2404Xhusnkb encounter statusAvita Health System Bucyrus Hospitaltart: 34-38-9637Rrc-patient / Non-visitCritical Access Hospital Physician GroupMary [facility] Work Phone: Start: 06-23-2024 End: 50-11-7250blxebzatpvJsxfosyitLicking Memorial Hospital Work Phone: Start: 06-23-2024 End: 87-79-6766Akjtett encounter procedureCritical Access Hospital Physician GroupVeterans Health Administration Work Phone: Start: 06-13-2024 End: 58-35-3000viwpiokwmkGymwleppnLicking Memorial Hospital Work Phone: Start: 06-13-2024 End: 31-99-6848Kjdvkgg encounter procedureCritical Access Hospital Physician GroupHERKIMER [facility] Work Phone: Start: 06-05-2024 End: 90-32-5152Kndhnz flowsheetCorey Juan DO Work Phone: [facility]oms BCP OBStart: 06-05-2024 End: 32-90-4972Lrbfsw flowsheetCorey Juan DO Work Phone: [facility]CP OBStart: 06-05-2024 End: 74-81-1952Qumwjcvba Result EncounterCorey Juan DO Work Phone: noms External Department UnsolicitedStart: 06-05-2024 End: 05-50-4763Wmgszwf encounter procedureCorey Juan DO Work Phone: [facility] HealthcareStart: 06-05-2024 End: 82-14-5753Zxzszygt preventive med est patient 40-64yrsCorey Juan DO Work Phone: noms BCP OBComment on above:Well woman exam with routine gynecological exam; Breast cancer screening by mammogram; Postmenopausal state; Acute vaginitis; Anorgasmia of femaleStart: 39-05-3957Xqw-patient / Non-visitCritical Access Hospital Physician [facility] Work Phone: Start: 06-05-2024 End: 27-89-6852gqvwljobsqIENOA FAZIONot AvailableStart: 05-21-2024 End: 15-72-2319pvfefvbsiwPNI RAMEYNot AvailableStart: 05-05-2024 End: 73-26-2615qfiozuvbngIoskoigcmLicking Memorial Hospital Work Phone: Start: 05-05-2024 End: 49-45-0526Iuxjvaw encounter procedureCritical Access Hospital Physician [facility] Work Phone: Start: 29-67-9668Pnc-patient / Non-visitCritical Access Hospital Physician [facility] Work Phone: Start: 74-88-1834Ato-patient / Non-visitCritical Access Hospital Physician [facility] Work Phone: Start: 02-01-2024 End: 72-64-1023pcclfprfquOdybvjqzfLicking Memorial Hospital Work Phone: Start: 02-01-2024 End: 15-90-1658Ionhifs encounter procedureCritical Access Hospital Physician [facility] Work Phone: Start: 10-19-8742Inf-patient / Non-visitCritical Access Hospital Physician [facility] Work Phone: Start: 11-13-2023 End: 48-15-4474lnkslbiqfkHdeounpy Ball Other [employer] Other Start: 60-51-1897Hfusfamnl encounterBevandana DasFPCheng Das Medical ClinicStart: 08-21-2023 End: 50-10-3794jipcsnfjonBuxxmxgy Ball Other [employer] Other Start: 19-33-2602Txggwzf evaluation of patient and reportBenjamin BallFPG [facility] ClinicStart: 07-11-2023 End: 38-31-3777aseebjphqtGlxuvhsu Ball Other [employer] Other Start: 78-52-7939Mgylxkjjq encounterBenjamin BallFPG [facility] ClinicStart: 05-28-2023 End: 30-38-9477wohdwytpfvTzecdfpi Ball Other [employer] Other Start: 31-49-4976Itlckp outpatient visit 15 minutes Grady BallFPG [facility] ClinicStart: 05-02-2023 End: 49-58-3302utniuoamjwClaljqmf Ball Other [employer] Other Start: 61-25-3928Xgmztpp evaluation of patient and reportBenjamin BallFPG [facility] ClinicStart: 02-19-2023 End: 54-87-4638zqvkrftjalDafatndd Ball Other [employer] Other Start: 68-08-0288Fgccpe outpatient visit 15 minutes Grady BallFPG [facility] ClinicStart: 02-07-2023 End: 94-18-9084vknezrnhjvYF GRADY BALLFacility:N7Thpdu: 01-23-2023 End: 86-51-2750ohxinswgxdQfnuyczy Ball Other [employer] Other Start: 77-24-9196Dlgycuphw encounterBenjamin BallFPG [facility] ClinicStart: 12-20-2022 End: 71-52-8229qxqvuiqucxKadnhzpr Ball Other [employer] Other Start: 32-04-9754Hnpzxkl evaluation of patient and reportBenjamin BallBrecksville VA / [facility] ClinicStart: 12-05-2022 End: 94-51-6090sbuwnbraagUU GRADY PIPPAFacility:W1Mqibr: 11-30-2022 End: 23-25-7092xrdfgbsgyfIQ ARMANDO JUAN .Facility:I7Ppgtt: 22-74-1609hbrzcbrpcy DR GAINES PIPPAFacility:J2Gyisz: 11-20-2022 End: 48-45-3698xquijdkvcxVcbpti Dymond Other [employer] Other Start: 86-12-7896Qbfcxb outpatient visit 15 minutes Clare JustinWICKENBURG [facility] Care ClydeStart: 11-16-2022(Televisit) TelevisitGela AngelBrecksville VA [facility] ClinicStart: 11-16-2022 End: 97-95-6136phsesfgwksYzwmrw Braun Other [employer] Other Start: 10-25-2022 End: 97-64-5834nfjskkdvvlSI ARMANDO JUAN .Facility:M2Slpgh: 10-11-2022 End: 96-90-7276gqjqeppnfyFZ ARMANDO JUAN .Facility:H9Gxwqh: 10-11-2022 End: 19-91-7087xqmvtambxnTL GRADY PIPPAFacility:H7Ikxgq: 63-57-9164Iwjeuroqg for general adult medical examination without abnormal findingsDR GRADY DAS [facility] Centertart: 09-25-2022 End: 24-31-4998qzxsbfiohnKY GRADY PIPPAFacility:V2Wnxzv: 09-25-2022 End: 41-68-5580Djmxzarea for general adult medical examination without abnormal findingsDR GRADY PIPPAFacility:K1Kqofi: 01-40-2055Jlvpd health examination Grady Das Other [employer] Other Start: 56-51-2356Dfjldsqeofbur examination normal Grady Das Other [employer] Other Start: 99-93-4783Xypnfh outpatient visit 15 minutes Grady Das Work Phone: 1([phone]) [phone]-PpzavM Health [facility] 250 DO Work Phone: Start: 57-29-2458pnfrylczbgWs. Joao Concepcionecu health [facility] Facility:[id number]: 07-15-2022 End: 30-02-6261atltyokxmiIRLIQY RODRIGUEZ .Facility:G9Dtous: 03-02-2022 End: 33-82-7747Ghlnzts encounter procedureArtmargaret [facility] Start: 02-21-2022 End: 38-73-7111Qzwrndx encounter procedureJESAGE HAZEL [facility] Start: 01-01-2022 End: 30-37-6140tpcxsyihrwBxeukl Dymond Other [place] [employer] Other Start: 62-41-6472Qchobl outpatient visit 15 minutes Clare Berg [facility] ClydeStart: 96-09-5922Fombgz outpatient visit 25 minutesBevandana Toney Pippa Work Phone: 1([phone]-HbowdM [facility] 250 DO Work Phone: Start: 34-22-4049bdnaselccsAnNbuia Trimbleyeison Concepcionyoselyn Facility:[id number]: 08-03-2021(URG) Urgent Care VisitPamela MargothFPG [facility] Procedures DateProcedureProcedure DetailPerforming ClinicianStart: 31-73-3108Vqxyi culture Grady Das DO Work Phone: Start: 52-76-8579Bbhnzccuvrmw partial nephrectomyKatstephen Bronson Start: 82-45-1349OMRZU METABOLIC PANEL W/ REFLEX TO MG FOR LOW KDaniel C Hurst HOSTESS HOST - [employer]AT 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 Work Phone: Start: 46-44-1662Paxiu count complete auto&auto difrntl wbcDaniel C Sofía HOSTESS HOST - [employer]AT 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 Work Phone: Start: 12-02-2024 End: 98-29-7190Yivqbxbevhi surg cholecystectomyGlen Arreola MD Work Phone: Start: 96-92-8023Msg abdomen w/o & w/contrast material Glen Arreola MD Work Phone: Start: 54-19-2803Tdfax metabolic panel calcium total Corinna M Danuta FLOOR INSTALLATION MECHANIC Work Phone: Start: 16-60-3170Xaeeknh function panelChristine M Danuta FLOOR INSTALLATION MECHANIC Work Phone: Start: 36-02-2424Trgsj metabolic panel calcium total Cindy QUINTANA Work Phone: Start: 92-29-0151DVO,APTIMA HPV,AGE GDLNCorey Juan DO Work Phone: Start: 88-45-1240MswlvutavwxHkhnb Juan DO Work Phone: Start: 24-40-7440Thvfhodokyi observation [Identifier] in Cervix by Cyto stainCorey [...] Work Phone: Plan of Treatment DateCare ActivityDetailAuthorStart: 05-51-7506Poiehqszn for malignant neoplasm of colonBon [facility] CenterStart: 41-67-0492Vnwtkpngs for malignant neoplasm of cervixNOMS HealthcareStart: 93-11-8103CQtV/Tdap/Td vaccine (2 - Td or Tdap)DTaP/Tdap/Td vaccine (2 - Td or Tdap)[facility] HospitalStart: 89-28-0152Npymi cultureAvita Health System Bucyrus Hospitaltart: 06-08-2025 Bacteria identified in Urine by CultureUrine [facility] Hospitaltart: 23-53-7772Nfdwerbie for malignant neoplasm of breastBreast cancer screenBon Sy[facility]ore Medical CenterStart: 52-34-0933Uckhtfmda for malignant neoplasm of colonNOMS HealthcareStart: 36-92-5324JHWJK-19 Vaccine ( season) COVID-19 Vaccine ()[facility] HospitalStart: 06-15-2024 Influenza vaccinationInfluenza Vaccine (#1)[facility] HealthcareStart: 06-05-2024 End: 51-73-4954JNS Skeletal system Views for bone densityDEXA bone density Imaging Routine Postmenopausal state Expected: 06/05/2024 (Approximate), Expires:06/05/2025[facility] HealthcareComment on above:Expected: 06/05/2024 (Approximate), Expires: 06/05/2025Start: 06-05-2024 End: 46-09-2577ZC Breast - bilateral ScreeningBilateral screening mammogram Imaging Routine Breast cancer screening by mammogram Expected: 06/05/2024 (Approximate), Expires: 08/05/2025[facility] Work Phone: comment on above:Expected: 06/05/2024 (Approximate), Expires: 08/05/2025Start: 06-05-2024 End: 44-86-4589Lrhxmwx encounter spyhzuwpo66/22/2024 11:50 AM EDT Office [facility] [address] [place] [phone] JuanArmando salas, DO [address] [place] [address] ArrivedSAN FRANC[facility] OBComment on above:ArrivedStart: 65-77-3126Lpftypgwe vaccinationFlu vaccine (#1)[facility] HospitalStart: 87-96-1905Cqwpmwkfd for malignant neoplasm of breastMammogramNevada Regional Medical Center Start: 85-24-7833NJX, Provider: Joao Ramírez, Status: Pen, Time: 2:00 PM FUV, Provider: Joao Ramírez, Status: Pen, Time: 2:00 PMMPMelrose Area Hospital 250 DO Work Phone: Start: 55-63-3052FOG, Provider: Joao Ramírez, Status: Pen, Time: 1:40 PMFUV, Provider: Joao Ramírez, Status: Pen, Time: 1:40 PMMPMelrose Area Hospital 250 DO Work Phone: Start: 27-91-3381Ftispzljdaxb 50+ years Vaccine (1 of 1 - PCV)Pneumococcal 50+ years Vaccine (1 of 1 - PCV)[facility] Start: 03-54-2454Meusvwjb vaccine (1 of 2)Shingles vaccine (1 of 2)[facility] HospitalStart: 26-25-9206Mxanfvnvz for malignant neoplasm of colonBon [facility] CenterStart: 90-10-1020Wsykm panelLipidsWarren Memorial Hospital Start: 51-79-6880Qpudqwuyq for malignant neoplasm of cervixBon [facility] Medical CenterStart: 47-43-2222Pyuovhtlc for malignant neoplasm of cervixPap smearBon [facility] Medical CenterStart: 57-79-9695Jpqnvzgsc B vaccine (1 of 3 - 19+ 3-dose series)Hepatitis B vaccine (1 of 3 - 19+ 3-dose series)[facility] Start: 65-81-2839Rmkjtdrtq C screeningHepatitis C [facility] Start: 95-28-9746GYM screeningHIV [facility] HealthStart: 92-88-1301Yszrvpkwoh ScreenDepression [facility] HospitalStart: 82-83-7024Gznyjzqbk for malignant neoplasm of colonBRIGHAM CITY [facility] HealthcareOxygen therapy [Minimum Data Set]Initiate Oxygen Therapy Protocol Respiratory Care Routine As Needed until discontinued starting 11/30/2024[facility] on above:As Needed until discontinued starting 11/30/2024Pathology studySurgical Pathology Lab Routine Gallstones Release Upon Ordering for 1 Occurrences starting 12/02/2024[facility] on above:Release Upon Ordering for 1 Occurrences starting 12/02/2024 End: 62-06-8335OTYZRQXX PATHOLOGY REPORTSURGICAL PATHOLOGY REPORT Lab Routine Once for 1 Occurrences starting 12/02/2024 until 12/02/2024[facility] on above:Once for 1 Occurrences starting 12/02/2024 until 12/02/2024THIN PREP TIS PAP AND HR HPV DNATHIN PREP TIS PAP AND HR HPV DNA Pathology and Cytology Routine Well woman exam with routine gynecological exam Ordered: 06/05/2024[facility] on above:Ordered: 06/05/2024[facility] Immunizations Immunization DateImmunizationNotesCare XenisjqpCrabgiql75-96-6411Vzcduk-RmyRBgjq COVID-19 Vacc 30 MCG/0.3ML Intramuscular SuspensionBenjamin E Ball Work Phone: [phone]-VrhglRidgeview [facility] 250 DO Work Phone: 1(325) [phone]btk-IxoYOxbw COVID-19 Vacc 30 MCG/0.3ML Intramuscular SuspensionBenjamin E Ball Work Phone: mpMelrose Area Hospital 250 DO Work Phone: 1(413) [phone], intradermal, quadrivalent, preservative free, injectableBenjamin E Ball Work Phone: [phone]-[place]fyaeS[place] [address] DO Work Phone: 1(581) [phone] toxoid, reduced diphtheria toxoid, and acellular pertussis vaccine, adsorbedBenjamin E Ball Work Phone: mpS[place] [address] DO Work Phone: 1(369) [phone] virus vaccine, unspecified formulationCorey Juan DO Work Phone: [facility] Dfwvwossbl79-57-8996kuato jdbnoimcj-Q8W2-56, preservative-free, injectableBenjamin E Ball Work Phone: [phone] [address] DO Work Phone: Payers DatePayer CategoryPayerPolicy [id number] [employer] Insurance [id number] Aelbybn08-15-9152FlofLos Alamos Medical [id number] 2..1.822423.19 [id number] 2..1.147665.3.579.2.66953-94-6893Ajejlfl [id number] 2..1.210638.3.57[id number] 2..1.652535.3.57[id number] 2.0.1.793584.3.57[id number] 2.840.1.925677.3.57[id number] 2.840.1.747790.3.57[id number] 2.16.840.1.947451.3.57[id number] 2.16.840.1.587884.3.57[id number] 2.16.840.1.015715.3.57[id number] 2.16.840.1.934508.3.579.[id number] 2.16.840.1.986439.3.579.2.86467-14-7448Pcmcgvp5567636 2.840.1.707483.3.579.2.915724-10-8971Clvmkqv8886313 2.840.1.769999.3.579.2.572[id number] 2..840.1.144511.3.579.[id number] 2.840.1.757165.3.579.2.[id number] 2.840.1.610390.3.579.[id number] 2..840.1.183728.3.579.2.81[id number] 2..840.1.345902.3.579.2.46191-38-1868Zooiszc86030557 2..840.1.879324.3.579.2.87286-16-5231Lugafal63549492 2.840.1.572738.3.579.2.60235-03-4771Acuuykf87392504 2.16.840.1.075810.3.579.2.727 [id number] 2.16.840.1.315654.19 71-87-8754Xquw-qlj[id number] 2.16.8[id number] 2.16.840.1.511372.3.579.2.531 Social History DateTypeDetailFacilityStart: 11-30-2024 End: 25-30-9139Cr alcohol useNo alcohol useNomercy [facility] south, [facility] [place] Other Start: 02-21-2022 End: 66-08-3562Fgalrhd smoking statusNever smoked tobacco (finding)[facility] Tobacco smoking statusNeverExecutive Urology [facility] Start: 11-30-2024 End: 19-72-6431Ksw Assigned At [facility] [place] Other Start: 65-46-2933Uhx Assigned At [facility] HospitalTobacco smoking status NHISTobacco smoking consumption unknownNOVA HealthcareStart: 32-55-5755Ixs assigned at birthNot on fileBRIGHAM CITY COMMUNITY [facility]OSPITAL HealthcareStart: 01-26-2010 End: 71-71-4807RniDtyvrs (finding)[facility] Hospitaltart: 06-69-2574Brchoud use and exposureSmokeless tobacco non-userBon UnLtdWorldStart: 91-56-6402Uoikuwjdv beverage intakeEx-drinker (finding)Bon UnLtdWorldHas the Earth Class Mail, gas, oil, or water company threatened to shut off services in your home in past 12MoNoBon UnLtdWorld(I/We) worried whether (my/our) food would run out before (I/we) got money to buy more.Never trueBon UnLtdWorldSexual OrientationExec[facility] Start: 63-98-2417YpwRooq (finding)[facility] Medical Equipment Procedure CodeEquipment CodeEquipment Original TextEquipment IdentifierDatesClip Int L Polymer Lexx Lig Hem O Lexx (6ea/Pk) - [id number], [id number] FDAStart: 12-02-2024 Clinical Notes 08-03-2021 to 06-18-2025 Note Date & JypqDvdqAqsbjnsh60-41-4102 Hospital Discharge instructions Patient Education 06/18/2025 09:24:48 [...] may need more sleep. General instructions Take chuj-fgg-leqzgiv and prescription medicines only as told by [...] [employer]: cancer.org National Cancer [place] (NCI): cancer.gov Contact a health care provider [...] provider. Document Revised: 03/13/2023 Document Reviewed: 03/13/2023 Number 100 Patient Education 2023 [employer]. Follow Up Care 06/03/2025 09:28:49 With:Audie MADERA, BELKIS Bain, URO Address: [address], [facility] [place] [phone] When: Unknown Comments:3 mos w/ CT Abd w/wo con, CXR, CMP [facility] 09-04-2025 NotePatient Education Oncology Kidney Cancer [...] need more sleep. General instructions ??? Take khlh-wxd-dgxduid and prescription medicines only as told by [...] African Cancer Society: cancer.org ??? National Cancer [place] (NCI): cancer.gov Contact a health care provider [...] short of breath. ?? (more content not included)...[facility]08-21-2025 Note Progress Note-Physician Patient: JENNIFER ZAMORA [...] Unspecified urethral stricture, female / SNOMED CT 372508703 / Confirmed Renal mass / SNOMED CT 298054335 / Confirmed Recurrent UTI / SNOMED CT 300739142 / Confirmed Hypertension / SNOMED CT 0339222411 / Confirmed Histories Procedure history: Appendectomy (223068432). Hysterectomy (392307162). Tubal ligation (168170333). Cholecystectomy; (40520). Social History Social & Psychosocial Habits Tobacco [...] complications and wishes to proceed with anesthetic plan..[facility] HospitalComment on above:Result Comment: Electronically Signed By: Fabián Campbell Jr, DO\.br\Date and Time Signed: 06/04/25 12:14 [id number] NoteProgress Note-Physician Patient: JENNIFER ZAMORA Age: 54 [...] Discharge when meets criteria ( To home ).[facility] HospitalComment on above:Result Comment: Electronically Signed [...] these instructions at home: Medicines ??? Take ujsl-ldb-rtgahck and prescription medicines only as told by your health care provider. ??? Avoid using NSAIDs regularly over a long period of time. These include aspirin and ibuprofen. Doing so may damage your remaining kidney. -Tylenol 650-1000 mg every 6 hours as needed for pain. Vernon for severe uncontrolled pain. These have 325 [...] keep your urine pale yellow. ? Take wqgv-jdg-okwwnxh or prescription medicines - Colace/Senna to prevent [...] and water are not available, use hand steep tender. ? Change your dressing as told by [...] and water are not available, use hand steep tender. ??? Empty the drainage bag every 2???4 [...] visits. This is important. (more content not included)...[facility]08-20-2025 Note Discharge Summary Patient: JENNIFER ZAMORA [...] % HI Lymph Auto 11.8 % LOW Lares Auto 6.9 % Eos Auto 0.0 % Basophil Auto 0.1 % Neutro Absolute 7.4 E9/L Lymph Absolute 1.1 E9/L Lares Absolute 0.6 E9/L Eos Absolute 0.0 E9/L [...] care of family member. Prescriptions: called to pharmacy.[facility] HospitalComment on above: Result Comment: Electronically Signed By: Audie MADERA, Rosmery Mckay\.br\Date and Time Signed: 06/03/25 12:32AUX83-04-8650 NotePatient Education - Text Nephrology Minimally Invasive [...] these instructions at home: Medicines ??? Take xqtk-hkc-kwdolps and prescription medicines only as told by your health care provider. ??? Avoid using NSAIDs regularly over a long period of time. These include aspirin and ibuprofen. Doing so may damage your remaining kidney. -Tylenol 650-1000 mg every 6 hours as needed for pain. Vernon for severe uncontrolled pain. These have 325 [...] keep your urine pale yellow. ? Take ivlq-tjd-zncpsxz or prescription medicines - Colace/Senna ? Eat [...] and water are not available, use hand steep tender. ? Change your dressing as told by [...] and water are not available, use hand steep tender. ??? Empty the drainage bag every 2???4 [...] your pain medicine. ?? (more content not included)...[facility]08-19-2025 Note History and Physical Patient: JENNIFER [...] mcg oral capsule: cap(s), Oral, Refill(s) 0 [place]-3 Fish Oil 1000 mg oral capsule: mg [...] list: All Problems Hypertension / SNOMED CT 6981560249 / Confirmed Recurrent UTI / SNOMED CT 570627721 / Confirmed Renal mass / SNOMED CT 218826393 / Confirmed Unspecified urethral stricture, female / SNOMED CT 755410754 / Confirmed Histories Past Medical History: No active or resolved past medical history items have been selected or recorded. Family History: Hypertension Mother Stroke Mother Diabetes clinic Mother High cholesterol Father Procedure history: Appendectomy (276185098). Hysterectomy (123157865). Tubal ligation (528341623). Cholecystectomy; (91940). Social History Social & Psychosocial Habits Tobacco [...] per clinic note, risks/benefits previously discussed and documentedNorwalk Memorial HospitalComment on above:Result Comment: Electronically Signed By: Audie MADERA, Rosmery Shea.alan\Date and Time Signed: 06/02/25 08:82APL63-41-7251 Evaluation note* Diagnosis Onset Date Resolution Status Admit Date Urinary frequency noneactiveJuly 2024 2:40pmAcute non-recurrent maxillary sinusitis noneactiveJuly 2024 2:40pmH/O partial ildhwvvuwtd0197iiwaiInzlpr 2024 8:28amHypertensionacuteAugust 2024 8:28amRenal mass, rightacuteAugust 2024 8:28amS/P cholecystectomynoneactiveAugust 2024 8:28am [facility] Work Phone: 1(159) 319-966607-22-2025 Evaluation note* Diagnosis Onset Date Resolution Status Admit Date Urinary frequency noneactiveJuly 2024 2:40pmAcute non-recurrent maxillary sinusitis noneactiveJuly 2024 2:40pmConstipationacuteAugust 2024 8:28amDysuria acuteAugust 2024 8:28amH/O partial ajxuuuqdnpb4155nnygbFigptq 2024 8:28amHypertensionacuteAugust 2024 8:28amMetabolic dysfunction-associated steatotic liver disease (MASLD)acuteAugust 2024 8:28amPrimary insomnia acuteAugust 2024 8:28amRenal mass, rightacuteAugust 2024 8:28amS/P cholecystectomynoneactiveAugust 2024 8:28am [facility] Work Phone: 1(415) 864-545507-14-2025 Hospital Discharge instructions Patient Education 04/27/2025 13:29:04 [...] provider gives to you. In general: Take wwvm-uci-ufklepm and prescription medicines only as told by [...] provider. Document Revised: 03/28/2021 Document Reviewed: 03/28/2021 Number 100 Patient Education 2023 [employer]. 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 In general: ??? Take hcbg-ych-hbsedoe and prescription medicines only as told by [...] provider. Document Revised: 03/28/2021 Document Reviewed: 03/28/2021 Number 100 Patient Education ? 2023 [employer]em[employer].[facility] 12-03-2024 History of Present illness Narrative* Aria Miles RN - 12/03/2024 3:05 PM EST This editorial writer went over AVS answered all questions [...] from the original note were not included. [facility] Office: [phone] Matt Sawyer DO, Jason Riggins DO, Krish [...] Hunter CNP, Hardeep Manzanares CNP, Kayla Alvarez, GARBAGE COLLECTOR DRIVER, Magui Toro, GARBAGE COLLECTOR DRIVER, Shasha Watson, GARBAGE COLLECTOR DRIVER,Sanjana Decker, PROVIDER RELATIONS REP, Chiquita Rebolledo, GARBAGE COLLECTOR DRIVER, Joslyn Tabor, GARBAGE COLLECTOR DRIVER, Kayce Virk, GARBAGE COLLECTOR DRIVER [facility] IN-PATIENT SERVICE [facility] Progress Note 12/03/2024 10:08 AM Name: Jennifer Zamora Acct: [id number] Room: IP Day: 3 Admit Date: 11/30/2024 [...] History: 11/30 - Pt is transferred from [facility] for Biliary ductal stone and renal [...] , PHART , PH , POCPCO2 , KSS3FXK , PCO2 , POCPO2 , PO2ART , PO2 , POCHCO3 , LHG2NMS , HCO3 , NBEA , PBEA , BEART , BE , THGBART , THB , ZOI6VOG , SDWP6OGG , R7VXCUBN , O2SAT , FIO2 No results found [...] Q8h for treatment of Intra-abdominal Infection. Per [facility] Extended Infusion Beta-Lactam Policy, piperacillin/tazobactam will be [...] from the original note were not included. [facility] Office: [phone] Matt Sawyer DO, Jason Riggins DO, Krish Ferreira DO, Holger Argueta DO, Gato Figueredo MD, Alison Garcia MD, Flavia Meza MD, Melissa Perez MD, Jori Cornejo MD, Shea Toro MD, Naseem Washington MD, Edmond Garber DO, Gucci Pope MD, Michael Fernando MD, Destin Sawyer DO, Zehra Oneill MD, Elpidio Garsai DO, Jeanette Bloom MD, Malissa Segura MD, [...] Rome, JOSEP, Christy Slater CNP, Jagruti Argueta, GARBAGE COLLECTOR DRIVER, Cindy Kapadia PA-C, Zara Hunter, GARBAGE COLLECTOR DRIVER, Hardeep Manzanares, GARBAGE COLLECTOR DRIVER, Kayla Alvarez, GARBAGE COLLECTOR DRIVER, Magui Toro, GARBAGE COLLECTOR DRIVER, Shasha Watson, GARBAGE COLLECTOR DRIVER,Sanjana Decker, PROVIDER RELATIONS REP, Chiquita Rebolledo, GARBAGE COLLECTOR DRIVER, Joslyn Tabor, GARBAGE COLLECTOR DRIVER, Kayce Virk, GARBAGE COLLECTOR DRIVER [facility] IN-PATIENT SERVICE [facility] Progress Note 12/02/2024 10:57 AM Name: Jennifer Zamora Acct: [id number] Room: IP Day: 2 Admit Date: 11/30/2024 9:13 PM PCP: Grady Das, Code Status: Full Code Subjective: C/C: Abdominal discomfort Interval History Status: improved. Pain is better controlled. GI on board and plan for MRCP. General surgery on board and tentatively plan for OR tomorrow. Will need outpatient follow-up for surveillance of renal mass. Brief History: 11/30 - Pt is transferred from [facility] for Biliary ductal stone and renal [...] , PHART , PH , POCPCO2 , KPX8TVD , PCO2 , POCPO2 , PO2ART , PO2 , POCHCO3 , XGR0NCQ , HCO3 , NBEA , PBEA , BEART , BE , THGBART , THB , NNN7WIB , THMO6PGR , O0QOOCWW , O2SAT , FIO2 No results found [...] Patient: Jennifer Zamora : 1970 Date: 12/02/2024 General Surgery Physician Assistant: Deon Dillard MD Subjective: Patient sleeping [...] said this has never happened before. The conservation technician saidshe won't be able to try again tonight and will call tomorrow morning to see if patient is willing.Patient says she's willing tomorrow if she can have something first. Tello Gore notified and Ativan ordered for prior to MRI/MRCP * Luigi Gore APRN - ASHLEIGH - 12/01/2024 2:05 PM EST Images from the original note were not included. [facility] Office: [phone] Matt Sawyer DO, Jason Riggins DO, Krish [...] Almanzar MD, Shanae Brady, JOSEP, Krissy Batres, GARBAGE COLLECTOR DRIVER, Luigi Gore, GARBAGE COLLECTOR DRIVER, Twyla Hardy, DNP, Keturah Del Cid, GARBAGE COLLECTOR DRIVER, Luciana Rome, GARBAGE COLLECTOR DRIVER, Christy Slater, GARBAGE COLLECTOR DRIVER, Jagruti Argueta, GARBAGE COLLECTOR DRIVER, MARIANO Tamez-C, Zara Hunter, GARBAGE COLLECTOR DRIVER, Hardeep Manzanares, GARBAGE COLLECTOR DRIVER, Kayla Alvarez, GARBAGE COLLECTOR DRIVER, Magui Toro, GARBAGE COLLECTOR DRIVER, Shasha Watson, GARBAGE COLLECTOR DRIVER,Sanjana Decker, PROVIDER RELATIONS REP, Chiquita Rebolledo GARBAGE COLLECTOR DRIVER, Joslyn Tabor GARBAGE COLLECTOR DRIVER, Kayce Virk, GARBAGE COLLECTOR DRIVER [facility] IN-PATIENT SERVICE [facility] Progress Note 12/01/2024 2:31 PM Name: Jennifer Zamora Acct: [id number] Room: Day: 1 Admit Date: 11/30/2024 9:13 PM PCP: Grady Das DO Code Status: Full Code Subjective: C/C: Abdominal discomfort Interval History Status: improved. Pain is better controlled. GI on board and plan for MRCP. General surgery on board and tentatively plan for OR tomorrow. Will need outpatient follow-up for surveillance of renal mass. Brief History: 11/30 - Pt is transferred from [facility] for Biliary ductal stone and renal [...] , PHART , PH , POCPCO2 , WDR1PNI , PCO2 , POCPO2 , PO2ART , PO2 , POCHCO3 , VKL1MNY , HCO3 , NBEA , PBEA , BEART , BE , THGBART , THB , ISK7OSJ , JBKM4OCV , Y0NAIXEN , O2SAT , FIO2 No results found [...] PM EST Pt admitted to room from [facility] Oriented to room and call [...] Care Everywhere were reviewed documented in this encounterWarren [facility]02[facility] Discharge instructions* Discharge Instr - ANTONY* Aria Miles RN - 12/03/2024 12:32 PM EST * Attachments The following attachments cannot be sent through Care Everywhere. * Cholecystectomy: General Info (Palauan) * Cholecystectomy: Post-op (Palauan) * Pancreatitis: Acute: General Info (Palauan) * Surgical Site Infections: Prevention: General Info (Palauan) * Cyclobenzaprine (Palauan) * methylprednisolone (oral) (Palauan) documented in this encounterWarren Memorial Hospital02-19-2025 [facility] course Narrative* Luigi Gore APRN - NP - 12/03/2024 10:19 AM EST Images from the original note were not included. [facility] Office: [phone] Matt Sawyer DO, Jason Riggins DO, Krish [...] MD, Joel Bonilla MD, Shekhar Ruiz MD, Tanai Cuevas MD, Tamia Tam MD, Karla Vivas MD, Pratik Spear MD, Claudio Mcnally MD, Luigi Richter DO, Asher Mathis MD, Edmond Almanzar MD, Evan Almanzar MD, Shanae Brady, GARBAGE COLLECTOR DRIVER, Krissy Batres, GARBAGE COLLECTOR DRIVER, Luigi Gore, GARBAGE COLLECTOR DRIVER, Twyla Hardy, ARSH, Keturah Del Cid, GARBAGE COLLECTOR DRIVER, Luciana Rome, GARBAGE COLLECTOR DRIVER, Christy Slater, GARBAGE COLLECTOR DRIVER, Jagruti Argueta, GARBAGE COLLECTOR DRIVER, MARIANO Tamez-C, Zara Hunter, GARBAGE COLLECTOR DRIVER, Hardeep Manzanares, GARBAGE COLLECTOR DRIVER, Kayla Alvarez, GARBAGE COLLECTOR DRIVER, Magui Toro, GARBAGE COLLECTOR DRIVER, Shasha Watson, GARBAGE COLLECTOR DRIVER,Sanjana Decker, PROVIDER RELATIONS REP, Chiquita Rebolledo, GARBAGE COLLECTOR DRIVER, Joslyn Tabor, GARBAGE COLLECTOR DRIVER, aKyce Virk, GARBAGE COLLECTOR DRIVER [facility] IN-PATIENT SERVICE [facility] Discharge Summary Patient ID: Jennifer Zamora : 1970 ACCOUNT: [id number] Patient's PCP: Grady Das DO Admit Date: [...] file. 11/30 - Pt is transferred from [facility] for Biliary ductal stone and renal [...] Up: \ Grady Das DO [address] [facility] [address] Follow up in 1 month(s) [...] Your Medications These medications were sent to [facility] [address] [place] [address] - [phone] - [phone] [place] [address] cyclobenzaprine 10 MG tablet methylPREDNISolone 4 MG [...] this patient's care. documented in this encounterBon [facility]* Diagnosis Onset Date Resolution Status Admit Date Hypertension acuteOctuary 2024 2:52pmMajor depressionacuteOctober 21, 2024 2:52pm PalpitationsacuteOctober 21, 2024 2:52pmPrimary insomniaacuteOctober 21, 2024 2:52pmScreening for colon canceracuteOctober 21, 2024 2:52pmScreening mammogram for breast canceracuteOctober 21, 2024 2:52pmWellness examinationacuteOctober 21, 2024 2:52pmHypertensionacuteFebruary 2024 2:30pmMajor depressionacute February 2024 2:30pmPrimary insomniaacuteFebruary 2024 2:30pmRenal mass, rightacuteFebruary 2024 2:30pmS/P cholecystectomynoneactiveFebruary 2024 2:30pm [facility] Work Phone: 1(262) 569-427908-22-2024 History of Present illness Narrative* Mita Watson, INVESTIGATIVE RESEARCH SPECIALIST - 06/05/2024 11:50 AM EDT Reason for Appointment: Patient ID: Jennifer Zamora is a 53 y.o. female who presents for [facility] Visit Patient presents today for [...] nursing note reviewed. Exam conducted with a underground distribution engineer present. Vitals: Estimated body mass index is [...] inability to climax. Will send order to [facility] for Progesterone/Testosterone cream to be compounded. [...] of: Armando Martinez DO documented in this encounterNevada Regional Medical CenterDftsdcoftq12-90-3831 Evaluation note* Encounter Date Diagnosis Assessment Notes Treatment Notes Treatment Clinical Notes Aug, Seasonal allergies (ICD-10 - J30 .2) [facility] Other 08-14-2023 Evaluation note* Encounter Date Diagnosis Assessment Notes Treatment Notes Treatment Clinical Notes May, Acute bacterial conjunctivitis o f left eye (ICD-10 - H10.32) Use artificial tears as much as possible. Use warm washcloth to remove crusting debris from lashes May,ysfunction of left eustachian tube (ICD-10 - H69.92)Flonase and Claritin D. Valsalva to open ET [facility] Other 07-19-2023 Evaluation note* Encounter Date Diagnosis Assessment Notes Treatment Notes Treatment Clinical Notes Apr, Seasonal allergic rhinitis, unsp ecified trigger (ICD-10 - J30.2) [facility] Other 05-08-2023 Evaluation note* Encounter Date Diagnosis [...] routine February,OtherHealthy diet, exercise and keep active [facility] Other 04-26-2023 NotePROCEDURE: XR FOOT RT MIN [...] Electronically authenticated by: LAM DORSEY Date: 2023-02-07 12:23[facility]04-26-2023 NotePROCEDURE: XR ANKLE RT MIN 3 VIEWS DATE: 02/07/2023 10:24 AM CDT COMPARISONS: None CLINICAL INDICATION: Right ankle pain. FINDINGS: There is no evidence of fractures or other osseous abnormalities. The ankle mortise is intact. IMPRESSION: Right ankle radiographs show no evidence of significant abnormalities. Electronically authenticated by: LAM DORSEY Date: 2023-02-07 12:19[facility] HospitalSgoagudp37-69-1172 Evaluation note* Encounter Date Diagnosis Assessment Notes Treatment Notes Treatment Clinical Notes Dec, Seasonal allergic rhinitis, unsp ecified trigger (ICD-10 - J30.2) [facility] Other 02-06-2023 Evaluation note* Encounter Date Diagnosis [...] no improvement in 2 to 3 days. [facility] Other 02-02-2023 Evaluation note* Encounter Date Diagnosis Assessment Notes Treatment Notes Treatment Clinical Notes Nov, Acute cystitis without hematuria (ICD-10 - N30.00) Discussed that bactrim could address her sinusitis symptoms as well. Take tylenol for body aches. Pt unable to provide a UA due to her work responsibilties. [facility] Other 05-19-2022 Hospital Discharge instructions Patient Education [...] Up Care 02/21/2022 15:13:40 With:MABLE HAZEL Address: [address] [place] [address] [facility] (1) When:6 weeks Comments:Call for followup appointment. Please finish your antibiotics. Monitor the urinary pattern after the dilation today. [facility]05-09-2022 Hospital Discharge instructions Patient Education 02/20/2022 14:38:38 Urinary Tract Infection, Adult, Ytpp-is-Bhok Urinary Tract Infection, Adult A urinary tract [...] Follow these instructions at home: Medicines Take qnhb-txh-bqfkifo and prescription medicines only as told by [...] 03/19/2009 Document Revised: 09/18/2019 Document Reviewed: 04/10/2019 Number 100 Patient Education 2020 [employer]. Follow Up Care 01/31/2022 10:31:51 With:CHARLEE OSCAR, MABLE Toney, URL Address: [address] [place] [address] When: Unknown Comments:Will schedule Cysto [facility] [place] 03-20-2022 Evaluation note* Encounter Date Diagnosis Assessment Notes Treatment Notes Treatment Clinical Notes Dec, Dysuria (ICD-10 - R30.0) Dec,Urinary tract infection, site not specified (ICD-10 - N39.0) Drink plenty fluids, get plenty of rest. Take the Macrobid as prescribed until gone. Take the Diflucan as prescribed until gone. Continue to take the jluv-peq-sphpzdu Azo for your symptoms. Follow-upwith your physician if no improvement in 2 to 3 days. Dec,Hematuria, unspecified (ICD-10 - R31.9) [facility] Other 10-20-2021 Evaluation note* Encounter Date Diagnosis [...] writting by CDC Care At Home document. [place] Other Evaluation + Plan note Future Appointments Appointment Date:02/23/2022 09:45:00 AM Scheduled Provider: Location:[facility] Appointment Type:Urology CALL PAT FT Appointment Date:03/02/2022 11:00:00 AM Scheduled Provider: Location:[facility] Appointment Type:Urology FT [facility] Evaluation + Plan note Future Appointments Appointment Date:04/13/2022 03:15:00 PM Scheduled Provider:MABLE HAZEL PA-C Location:[facility] Appointment Type:URO [facility] Future Appointments Appointment Date:09/24/2025 01:00:00 PM Scheduled Provider:Rosmery Bronson MD Location:[facility] Appointment Type:URO Office Visit Future Scheduled Tests Laboratory* Comprehensive Metabolic Panel 09/17/25 Radiology* CT Abdomen w/ + w/o Contrast 09/17/25 * XR Chest 2 Views 09/17/25 [facility] Evaluation noteNo InformationNortClarion Hospital [facility] Other Evaluation noteNo assessment information available [facility] Work Phone: Evaluation note* Diagnosis Onset Date Resolution Status Acute frontal sinusitis acute [facility] Work Phone: Evaluation note* Diagnosis Onset Date Resolution Status Acute frontal sinusitis acuteHypertensionacuteMajor depressionacutePalpitationsacute [facility] Work Phone: Evaluation note* Diagnosis Well woman exam with routine gynecological exam Routine gynecological examination Breast cancer screening by mammogram Postmenopausal state Asymptomatic postmenopausal status (age-related) (natural) Acute vaginitis Unspecified vaginitis and vulvovaginitis Anorgasmia of female documented in this encounter [facility] HealthcareEvaluation note* Diagnosis Onset Date Resolution Status Admit Date Hypertension acuteJanuary 2024 2:52pmMajor depressionacuteJanuary 2024 2:52pm PalpitationsacuteJanuary 2024 2:52pmScreening mammogram for breast cancer acuteJanuary 2024 2:52pmWellness examinationacuteJanuary 2024 2:52pm [facility] Work Phone: Evaluation note* Diagnosis Acute biliary pancreatitis without infection or necrosis- Primary Gallstones Calculus of gallbladder without mention of cholecystitis or obstruction Hypertension Unspecified essential hypertension Renal mass Unspecified disorder of kidney and ureter Pancreatitis, unspecified pancreatitis type documented in this encounter [facility] Narrative - Reported* Type Description Date Medical History Hypertension Medical HistoryADHDMedical Historychronic depressionMedical Historyheart palpitationsSurgical HistoryC sectionSurgical HistoryhysterectomySurgical HistoryappendectomyHospitalization Historysee above studdex Other History general Narrative - Reported* Type [...] vertigo, unspecified lateralitySurgical HistoryC sectionSurgical HistoryhysterectomySurgical History [id number] Historysee above studdex Other History of Present illness Narrative* Patient [...] or earlier if the need arise [facility] [address] DO Work Phone: [...] year with plan to repeat her EKG -Located Within [facility] [address] DO Work Phone: Hospital course Narrative No data available for this section [facility] Progress note No data available for this section [facility] Reason for referral (narrative)No reason for referral information availableTrihealth [facility] Work Phone: Reason for visit Narrative* Auth/CertSpecialty Diagnoses / ProceduresReferred By ContactReferred To Contact Diagnoses Acute biliary pancreatitis without infection or necrosis Pancreatitis Krish Ferreira, [address] [address] [facility] [address] [place] [address] Referral IDStatusReasonStart DateExpiration DateVisits RequestedVisits [id number] [facility] Summary Purpose Family History No Family History [...] shot congestion,headache,(smell coming from nose?) depression medication [phone] for VisitAcute frontal sinusitis Hypertension Major depression Palpitations Chief Complaint Admit Date Wellness October 21, 2024 2: 52pm Reason for Visit Admit Date Hypertension October 21, 2024 2: 52pm Major depression October 21, 2024 2: 52pm Palpitations October 21, 2024 2: 52pm Screening mammogram for breast cancer [facility] 2024 2:52pm Wellness examination October [...] 2:52pm Screening mammogram for breast cancer [facility] 2024 2:52pm Wellness examination October [...] Documentation June 03, 2025 1: 24pm [facility] F/U/Reminded Pt June 08, 2025 8:28am [...] section and content) DATE CREATED AUTHOR 04/09/2021 [facility] DATE CREATED AUTHOR AUTHOR'S ORGANIZ ATION 07/19/2022 [facility] DATE CREATED AUTHOR AUTHOR'S ORGANIZ ATION 07/19/2022 [employer] DATE CREATED AUTHOR AUTHOR'S ORGANIZ ATION 02/16/2023 [facility] DATE CREATED AUTHOR AUTHOR'S ORGANIZ ATION 06/07/2024 [facility] DATE CREATED AUTHOR AUTHOR'S ORGANIZ ATION 12/13/2024 [facility] DATE CREATED AUTHOR AUTHOR'S ORGANIZ ATION 05/20/2025 [facility] DATE CREATED AUTHOR AUTHOR'S ORGANIZ ATION 05/21/2025 [facility] DATE CREATED AUTHOR AUTHOR'S ORGANIZ ATION 06/03/2025 [facility] DATE CREATED AUTHOR AUTHOR'S ORGANIZ ATION 06/04/2025 [facility] DATE CREATED AUTHOR AUTHOR'S ORGANIZ ATION 06/13/2025 [facility] DATE CREATED AUTHOR AUTHOR'S ORGANIZ ATION 06/19/2025 [facility] DATE CREATED AUTHOR AUTHOR'S ORGANIZ ATION 06/20/2025 [facility] REASON FOR VISIT (unrecogniz ed section [...] MemberRelationshipSpecialtyStart DateEnd Date Grady Das DO [address] [place] [id number] PCP - GeneralInternal Medicine11/30/24 Team Status: Active [...] Member Role Status Dates KASSANDRA Kang RN 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 Attending Provider Active Start: June End: June [...] at 0900, Apply patch to back. The ad taker's recommendations for the number of patches that can be applied within a 24-hour period varies from 1 to 4 times daily and the duration of application varies from 8 to 24 hours; refer to the ad taker's labeling for product-specific recommendations. * 0941 (Patch [...] (Given - Provider: Carin Pulido RN) Medication Order/18/[id number]/03/2024 lactated ringers infusion ()(Linked Group 2) IntraVENous, [...] rate field of order. * 1431 ([facility] Hold - Provider: [facility] [employer] - Reason: Unreviewed Transfer Orders) * 1813 ([facility] Unhold - Provider: Aria Miles RN) BUPivacaine-EPINEPHrine PF (MARCAINE-w/EPINEPHrine) 0.5% -[id number] injection (CANCELED) PRN, Starting on Sun12/02/24 at [...] Provider: Aria Miles RN) * 1431 ([facility] Hold - Provider: [facility] [employer] - Reason: Unreviewed Transfer Orders) * 1813 ([facility] Unhold - Provider: Aria Miles [...] Provider: Carin Pulido RN) * 143 ([facility] Hold - Provider: [facility] [employer] - Reason: Unreviewed Transfer Orders) * 181 ([facility] Unhold - Provider: Aria Miles [...] CrCl less than 30mL/min * 143 ([facility] Hold - Provider: [facility] [employer] - Reason: Unreviewed Transfer Orders) * 1812 ([facility] Unhold - Provider: Aria Miles [...] Provider: Carin Pulido RN) * 143 ([facility] Hold - Provider: [facility] [employer] - Reason: Unreviewed Transfer Orders) * 181 ([facility] Unhold - Provider: Aria Miles RN) ondansetron (ZOFRAN) injection 4 mg(Linked Group 3) 4 mg, IntraVENous, EVERY 6 HOURS PRN, Starting on 11/30/24 at 2114, Until Discontinued, Nausea, Vomiting, Administer if oral route cannot be used. * 1637 (Given - Provider: Marcella Hernandez RN) * 143 ([facility] Hold - Provider: [facility] [employer] - Reason: Unreviewed Transfer Orders) * 181 ([facility] Unhold - Provider: Aria Miles RN) ondansetron (ZOFRAN-ODT) disintegrating tablet 4 mg(Linked Group 3) 4 mg, Oral, EVERY 8 HOURS PRN, Starting on 11/30/24 at 2113, Until Discontinued, Nausea, Vomiting * 1637 (See Alternative - Provider: Marcella Hernandez RN) * 1431 ([facility] Hold - Provider: Ste[employer] - Reason: Unreviewed Transfer Orders) * 181 ([facility] Unhold - Provider: Aria Miles [...] CrCl less than 30mL/min * 1431 ([facility] Hold - Provider: [employer] - Reason: Unreviewed Transfer Orders) * 181 ([facility] Unhold - Provider: Aria Miles [...] CrCl less than 30mL/min * 1431 ([facility] Hold - Provider: [facility] [employer] - Reason: Unreviewed Transfer Orders) * 1813 ([facility] Unhold - Provider: Aria Miles [...] Central Line= 20 mL/lumen * 1431 ([facility] Hold - Provider: Steff [employer] - Reason: Unreviewed Transfer Orders) * 1813 ([facility] Unhold - Provider: Aria Miles [...] BE BASED ON THE PRIMARY CLINICAL RECORDS. [employer] [facility]. provides no warranty or guarantee of the accuracy or completeness of information in this document.
--- NOTE | 2025-10-13 08:49 | MM_ITS ---
Patient Name: CASEY DIAZ MR#: [id number] : 1970 Exam Date: 10/13/2025 Ordering Doctor: DR LIANA DAS D.O. RADIOLOGY REPORT PROCEDURE: MM TOMOSYNTHESIS SCREENING BI COMPARISON: MG MAMM SCREEN 3D ELOY CAD, 11/30/2022. MG MAMM SCREEN 3D ELOY CAD, 09/21/2021. MG MAMM ELOY SCRN W CAD DIG, 06/25/2015. INDICATIONS: Screening Calculator Name NCI Breast Cancer Risk Assessment Tool 5 Year Breast Cancer Risk Not Reported. Lifetime Breast Cancer Risk Not Reported. Personal Breast Cancer No Personal Ovarian Cancer No Treatments None Family Cancers None LOCATION: [facility] BREAST COMPOSITION: There are scattered areas of fibroglandular density. FINDINGS: RIGHT BREAST: No significant suspicious finding. LEFT BREAST: No significant suspicious finding. DIAGNOSTIC CATEGORY 1--NEGATIVE. RECOMMENDATIONS: ROUTINE MAMMOGRAM AND CLINICAL EVALUATION IN 12 MONTHS. Dictated by: Holger Valentin DO on 10/13/2025 at 11:52 Approved by: Holger Valentin DO on 10/13/2025 at 11:53
== END 2025-10-13 08:39 | disposition home or self-care (01) ==
LOC: MAMMO 08:39
PROVIDERS: PCP Internal Medicine; Visit Provider Internal Medicine
DX: Z12.31 Encounter for screening mammogram for malignant neoplasm of breast (principal)
CPT/HCPCS: 77063; 77067

== ENCOUNTER 2025-10-13 08:41 | Outpatient (OUT) | payer BC, SELFPAY ==
--- OUTSIDE RECORDS SUMMARY | 2025-10-13 08:48 | XMS_ITS | CCD ---
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 Ulrich Referring [...] Unavailable PIPPA, DR GAINES Primary Care Unavailable POCATELLO, DR CARLOS [employer] Unavailable JUAN ., [...] Unavailable Grady Das DO Primary Care Provider [phone] Shasha Isaac APRN Attending Provider Qianae Rosmery [...] Attending Provider UnavailGrady Carrillo DO Attending Provider [phone] Grady Das Attending Unavailable Grady Das Admitting Unavailable Kym Jorgensen APRN Attending Provider Lue, Rosmery M. Referring Unavailable Lue, Rosmery M. Attending Unavailable Lue, Rosmery M. Admitting Unavailable Lue, Rosmery M. Attending Unavailable Lue, Rosmery M. Attending Unavailable Allergies Allergy ClassificationReported Allergen(s)Allergy TypeDate of OnsetReaction(s) Facility (3 sources)patient allergy list reviewed by nurse or physiciaPropensity to adverse [phone]:[facility] [employer] Other (3 sources)NONE CURRENTPropensity to adverse [id number] CURRENT [facility] [employer] Other (3 sources)Allergies ReconciledPropensity to adverse reactionsUnknownNorth Coast [employer] Other (5 sources)No Known Medication Allergies; Translations: [No Known Medication Allergies]Propensity to adverse reactions (disorder)[facility] Medications Current Medications MedicationDrug Class(es)DatesSig (Normalized)Sig (Original)aspirin 81 mg delayed release oral tablet (20 sources)Platelet Aggregation Inhibitor, Nonsteroidal Anti-inflammatory Drug Start: 61-48-2052ulyt 1 tablet by mouth once dailyaspirin 81 mg Oral EC Tab Oral, Daily, Refills(s) 0 Start Date: 06/10/25 Status: Ordered Repeat number: 1 Start: 63-95-9445lain 81 mg by mouth once dailyAspirin Low Dose 81 mg, Oral, Daily, Refills(s) 0 Start Date: 05/18/25 Status: Ordered Repeat number:1Start: 59-33-2331fhxv 1 mg by mouth once dailyaspirin 81 mg Oral EC Tab mg tab(s), Oral, Daily, Refills(s) 0 Start Date: 02/21/22 Status: OrderedStart: 02-21-2022 End: 13-06-9864wfep 1 tablet by mouth once dailyAspirin 81 mg tablet,delayed release (DR/EC) Discontinued 81 MG PO Daily January 08, 2024 12:00am May 05, 2025 2:47pmBaby Aspirin Not-Taking/PRNBaby Aspirin Not-TakingBaby Aspirin Active Augmentin Tablets 875 MG (1 source)Start: 09-64-0812ogie 1 tablet by mouth every twelve hoursAugmentin Tablets 875 MG 1 tab(s) orally bid for 10 day(s) Jul, Activecalcium chloride 0.0014 meq/ml / potassium chloride 0.004 meq/ml / sodium chloride 0.103 meq/ml / sodium lactate 0.028 meq/ml injectable solution (1 source)Start: 05-32-6195FpaplYKNuxn, at 150 mL/hr, CONTINUOUS, Starting on Sun12/01/24 at 0930cephalexin 500 mg oral capsule (5 sources)Cephalosporin AntibacterialStart: 06-05-2024 End: 00-33-8284ptar 1 capsule by mouth in the morningcephalexin (Keflex) 500 MG capsule Indications: Acute vaginitis Take 1 capsule (500 mg) by mouth inthe morning and 1 capsule (500 mg) before bedtime. 60 capsule 1 06/05/2024 07/05/2024 ActiveStart: 09-56-1523zvbf 1 mg by mouth every twelve hoursKeflex 500 mg Cap mg cap(s), Oral, q12hr, Refills(s) 0 Start Date: 02/21/22 Status: Orderedciprofloxacin 500 mg oral tablet (1 source)Quinolone AntimicrobialStart: 04-71-9878Mfpkj 500 mg Tab See Instructions, Take 1 tab day prior to procedure and 1 tab day of procedure after the procedure, # 2 tab(s), Refills(s) 0, Pharmacy: [id number], 169, cm, 02/28/22 9:30:00 EDT, Height/Length Dosing, 95, kg, 02/21/22 14:43:00 EDT, Marciano... Start Date: 02/28/22 Status:OrderedClaritin-D 24 Hour 10-240 MG (1 source)Start: 51-68-3056npxa 10-240 mg by mouth once dailyClaritin-D 24 Hour 10-240 MG 1 tablet Orally Once a day for 30 days May, Active cyclobenzaprine hydrochloride 10 mg oral tablet (1 source)Muscle RelaxantStart: 12-03-2024 End: 80-25-4437nash 1 tablet by mouth three times daily as needed for muscle spasmscyclobenzaprine (FLEXERIL) 10 MG tablet Take 1 tablet by mouth 3 times daily as needed for Muscle spasms 21 tablet 12/03/2024 12/13/2024 Active dexamethasone 1 mg/ml / neomycin 3.5 mg/ml / polymyxin b 39093 unt/ml ophthalmic suspension (1 source)Aminoglycoside Antibacterial, Polymyxin-class Antibacterial, CorticosteroidStart: 05-51-4420plgw 2 drop(s) into the eye(s) four times daily Maxitrol 3.5-03989-5.1 2 drops into affected eye Ophthalmic Four times a day for 4 days Nov, Active0.4 ml enoxaparin sodium 100 mg/ml prefilled syringe (1 source)Low Molecular Weight HeparinStart: 62-82-6775dbomla 40 mg by subcutaneous injection once daily40 [...] 30 days ActiveLexapro ActiveFish Oils (2 sources)Start: 14-10-0616Wwqkb-3 Fish Oil 1000 mg oral capsule mg cap(s), Oral, Refills(s) 0 Start Date: 04/27/25 Status: Ordered Repeat number: 1 fluticasone propionate 0.05 mg/actuat metered dose nasal spray (10 sources)CorticosteroidStart: 06-13-2024 End: 89-57-8347isoy 2 spray(s) nasal route once daily as [...] DAILY Complies with drug therapyStart: 04-06-2021 End: 62-29-4832naiz 1 tablet by mouth once dailyLosartan-Hydrochlorothiazide 50- 12.5 mg tablet Discontinued 1 TAB PO Daily January 08, 2024 12:00amSept2023 8:49cdQ8-P3 5000 125 mcg (5000 intl units)-90 mcg oral capsule (2 sources)Start: 03-82-1239W0-D3 5000 125 mcg (5000 intl units)-90 mcg oral capsule cap(s), Oral, Refill(s) 0 Start Date: 04/27/25 Status: Ordered Repeat number: 11 ml ketorolac tromethamine 15 mg/ml cartridge (1 source)Nonsteroidal Anti-inflammatory Drug, Cyclooxygenase InhibitorStart: 12-01-2024 End: 58-46-105633 mg, IntraVENous, EVERY 6 HOURS PRN, Starting on Sun12/01/24 at 0651, Until 12/06/24 at 0650, Pain Moderate (4-6), Do not administer for more than 5 days.lidocaine 0.04 mg/mg medicated patch (1 source)Antiarrhythmic, Amide Local AnestheticStart: patch, TransDERmal, Administer over 12 Hours, DAILY, First dose on Sun12/01/24 at 0900, Apply patch to back. The pusher runner's recommendations for the number of patches that can be applied within a 24-hour period varies from 1 to 4 times daily and the duration of application varies from 8 to 24 hours; refer to the pusher runner's labeling for product-specific recommendations.24 hr loratadine 10 mg / pseudoephedrine sulfate 240 mg extended release oral tablet (2 sources)alpha-Adrenergic AgonistStart: 42-68-9704pcgf 1 tablet by mouth every twenty-four hoursClaritin-D 24 Hour 10-240 MG 1 tablet Orally Once a day for 30 days May, ActiveLosartan Potassium-HCTZ (2 sources)Losartan Potassium-HCTZ Ehodwf73 ml magnesium sulfate 40 mg/ml injection (1 source)Start: 98-52-9889moolndQHQBIRJgyncv 4 mg oral tablet (13 sources)CorticosteroidStart: 12-03-2024 End: 42-67-6412xxtjviNUJDTKNdwlww (MEDROL DOSEPACK) 4 MG tablet Take by mouth. 1 kit 12/03/2024 12/09/2024 ActiveStart: 12-08-2023 End: 08-99-3311qdwrukWVTRRMQynxev (Medrol Dospak) 4 MG tablets TAKE BY MOUTH DIRECTED ON PACKAGE 12/08/2023 06/05/2024 DiscontinuedStart: 73-16-1725Venfyf 4 MG as directed Orally as directed for 6 days Nov, Yzthjc18 hr metoprolol succinate 25 mg extended release oral tablet (20 sources)beta-Adrenergic BlockerStart: 02-48-4292xkgg 1 tablet by mouth once dailyToprol XL 25 mg Tab-ER Oral, Daily, Refills(s) 0 Start Date: 06/10/25 Status: Ordered Repeat number:1Start: 10-02-2024 End: 73-11-6072rpvu 1 tablet by mouth once dailyMetoprolol Succinate 25 mg tablet extended release 24 hr Active 0 .ROUTE .COMPLEX March 30, 2025 5:07pm TAKE 1 TABLET BY MOUTH ONCE DAILY Complies with drug therapyStart: 10-02-2024 take 1 tablet by mouth once dailyMetoprolol Succinate 25 mg tablet extended release 24 hr Active 0 .ROUTE .COMPLEX September 9:46am TAKE 1 TABLET BY MOUTH DAILYStart: 05-24-2021 End: 98-21-7085gglz 1 tablet by mouth once dailyMetoprolol Succinate 25 mg tablet extended release 24 hr Discontinued 25 MG PO Daily January 08, 2024 12:00am October 02, 2024 10:47amtake 1 capsule by mouth once dailyMetoprolol Succinate 25 MG 1 capsule Orally Once a day ActiveMetoprolol Succinate Active ondansetron (ZOFRAN-ODT) disintegrating tablet 4 mg (1 source)Start: 75-82-9244kehfuvzvnny (ZOFRAN-ODT) disintegrating tablet 4 mg24 hr phentermine 7.5 mg / topiramate 46 mg extended release oral capsule (12 sources)Sympathomimetic Amine AnorecticStart: 02-14-7474qnxm 1 capsule by mouth once daily in the morningQsymia 7.5 mg-46 mg oral capsule, extended release Oral, qAM, Refill(s) 0 Start Date: 06/10/25 Status: Ordered Repeat number: 1Start: 48-48-3148gmmb 1 capsule by mouth once daily in the morning Qsymia 7.5 mg-46 mg oral capsule, extended release cap(s), Oral, qAM, Refill(s) 0 Start Date: 02/21/22 Status: OrderedPotassium Chloride (20 sources)Start: 11-30-2024 End: 81-02-3345ucnjuvyzb chloride 20 mEq/50 mL IVPB (Central Line)Start: 01-08-2024 End: 77-15-3144cbbk 1 tablet by mouth once dailyPotassium Chloride 20 mEq tablet,ER particles/crystals Discontinued 0 .ROUTE .COMPLEX January 08, 2024 5:36pm June 13, 2024 5:24pm TAKE 1 TABLET BY MOUTH DAILYStart: 01-08-2024 End: 35-65-0218zjvu 1 tablet by mouth once dailyPotassium Chloride 20 mEq tablet,ER particles/crystals Discontinued 20 MEQ PO Daily January 08, 2024 12:00am January 08, 2024 5:36pmStart: 23-17-3337qsmw 1 tablet by mouth once dailyPotassium Chloride [...] ActivepredniSONE 20 mg oral tablet (1 source)Start: 35-68-8506gtts 1 tablet by mouth every twelve hourspredniSONE 20 MG 1 tablet Orally bid for 5 day(s) Jul, Ekxtzb7340 ml sodium chloride 9 mg/ml injection (3 sources)Start: 67-93-5522Lrkba: -40 mL, IntraVENous, EVERY 12 HOURS SCHEDULED [...] mL Midline or CentralLine = 20 mL/lumenStart: 12-28-3337jttyodjxeekhjibe 800 mg / trimethoprim 160 mg oral tablet (9 sources)Dihydrofolate Reductase Inhibitor Antibacterial, Sulfonamide AntimicrobialStart: 93-09-7087sdtu 1 tablet by mouth every twelve hoursBactrim DS 800-160 MG 1 tablet Orally Twice a day for 10 day(s) Nov, ActiveSuper B Complex oral tablet (2 sources)Start: 27-30-7059Cddzk B Complex oral tablet 1 tab(s), Oral, Daily, 90 tab(s), Refill(s) 0 Start Date: 04/27/25 Status: Ordered Quantity: 90.0 Unit: tab(s) Repeat number: 1 Completed/Discontinued Medications MedicationDrug Class(es)DatesSig (Normalized)Sig (Original)acetaminophen 325 mg / HYDROcodone bitartrate 5 mg oral tablet (4 sources)Opioid AgonistStart: 06-08-2025 End: 98-24-0672llnn 1 tablet by mouth every six hours [...] mg oral tablet (11 sources)BenzodiazepineStart: 04-01-2025 End: 44-85-1624Tlscjfdeau 0.25 mg tablet Discontinued 0 PO Once 2 April 01, 2025 5:02pm May 05, 2025 2:47pm 1-2 tablets taken 60 minutes prior to MRI Start: 06-23-2024 End: 52-19-6024vztr 1 tablet by mouth once daily as needed for anxietyAlprazolam 0.25 mg tablet Discontinued 0.25 MG PO Daily as needed for anxiety 07 24June 23, 2024 12:00am April 01, 2025 5:04pmamoxicillin 875 mg / clavulanate 125 mg oral tablet (4 sources)Penicillin-class AntibacterialStart: 05-05-2025 End: 83-08-6239ufoe 1 tablet by mouth twice dailyAmoxicillin-Pot Clavulanate 875-125 mg tablet Discontinued 1 TAB PO Twice daily 03 08May 05, 2025 12:00am June 08, 2025 8:35amazithromycin 250 mg oral tablet (17 sources)Macrolide AntimicrobialStart: 90-62-2967Lsenazemdhvf Active 0 PO .COMPLEX June 13, 2024 12:00am For 250 mg dose pack: take 500 mg today (day 1), then 250 mg for 4 days (days 2-5) POStart: 02-01-2024 End: 83-67-6691Linmglfaxcey 250 mg tablet Discontinued 0 PO .COMPLEX June 13, 2024 12:00am October 2153:58pm For 250 mg dose pack: take 500 mg today (day 1), then 250 mg for 4 days (days 2-5) PO24 hr buPROPion hydrochloride 150 mg extended release oral tablet (20 sources)AminoketoneStart: 07-21-2024 End: 28-72-7794drlb 1 tablet by mouth once daily in the morningBupropion Hcl 150 mg tablet extended release 24 hr Discontinued 0 .ROUTE .COMPLEX July 21, 2024 8:43am May 05, 2025 2:47pm TAKE 1 TABLET BY MOUTH EVERY MORNINGStart: 00-81-0385nkok 1 tablet by mouth once daily in the morningBupropion Hcl 150 mg tablet extended release 24 hr Active 0 .ROUTE .COMPLEX July 21, 2024 7:4 3am TAKE 1 TABLET BY MOUTH EVERY MORNINGStart: 06-23-2024 End: 07-77-5064ejlk 1 tablet by mouth once daily in the morningBupropion Hcl (Wellbutrin Xl) 150 mg tablet extended release 24 hr Discontinued 150 MG PO Every morning June 23, 2024 12:00am July 21, 2024 8:43amStart: 43-01-3374gmoc 1 tablet by mouth once dailybuPROPion HCl ER (SR) 150 MG Oral Tablet Extended Release 12 Hour Take 1 tablet by mouth daily Quantity: 60 Refills: 0 Ordered: 05-Jul-2021 DO Start : 04-Jul-2021 ActiveWellbutrin Not-TakingWellbutrin Activecefixime 400 mg oral capsule (3 sources)Cephalosporin AntibacterialStart: 05-20-2024 End: 18-71-7856zzksdaqg (Suprax) capsule 05/20/2024 06/05/2024 Discontinued doxycycline monohydrate 100 mg oral capsule (3 sources)Tetracycline-class DrugStart: 05-20-2024 End: 93-90-5307xedovluvktu (Monodox) 100 MG capsule 05/20/2024 06/05/2024 Discontinuedfluconazole 150 mg oral tablet (11 sources)Azole AntifungalStart: 32-50-2418Lhmyprgo 150 MG 1 tablet Orally as directed Take 1 tablet p.o. today, repeat in 7 days. Dec, Not-Taking/PRN gadoteridol (PROHANCE) injection 15 mL (1 source)Start: 12-02-2024 End: 04-60-9949jopq 1 dose intravenously once15 mL, IntraVENous, IMG ONCE PRN, 1 dose, Starting on Sun12/02/24 at 0829, Until Sun12/02/24 at 0830, Other1 ml LORazepam 2 mg/ml injection (15 sources)BenzodiazepineStart: 12-01-2024 End: 24-81-3515grimbk 1 dose intravenously once2 mg, IntraVENous, ONCE, 1 dose, On Sun12/01/24 at 1830, Immediately prior to intravenous use, lorazepam Injection must be diluted with at least an equal volume of compatible solution (NS or D5W)., Please retimed for 30 minutes prior to MRIStart: 01-08-2024 End: 21-92-3878wavd 1 tablet by mouth once daily as needed for anxietyLorazepam 0.5 mg tablet Discontinued 0.5 MG PO January 08, 2024 12:00am June 13, 2024 5:23pm 1/2 - 1 Orally Once a day PRN anxietyStart: 18-56-2542AZAzqrmqq 0.5 MG 1/2 - 1 Orally Once a day PRN anxiety for 30 days Sep, Active1 ml morphine sulfate 2 mg/ml cartridge (2 sources)Opioid AgonistStart: 12-01-2024 End: 80-55-0484ecgs 1 dose by mouth every hour1 mg, IntraVENous, ONCE, 1 dose, On Sun12/01/24 at 2300, If oral and IV narcotics ordered, use oralfirst and only use IV if oral is ineffective or cannot take oral. Do Not give oral and IV within 1 hour of each other unless specifically ordered.Start: 22-17-7485qagy 1 mg by mouth every four hours [...] 75 mg oral capsule (11 sources)Nitrofuran AntibacterialStart: 04-88-1806yvbn 1 capsule by mouth every twelve hoursMacrobid 100 MG 1 cap(s) Orally bid for 5 day(s) Dec, Not-Taking/PRNpantoprazole 40 mg delayed release oral tablet (20 sources)Proton Pump InhibitorStart: 01-08-2024 End: 25-53-3137zmpy 1 tablet by mouth once daily in the morningPantoprazole 40 mg tablet,delayed release (DR/EC) Discontinued 0 .ROUTE .COMPLEX January 08, 2024 5:36pm June 13, 2024 5:23pm TAKE 1 TABLET BY MOUTH EVERY MORNING ON AN EMPTY STOMACHStart: 01-08-2024 End: 71-41-8648pupc 1 tablet by mouth once daily in [...] MORNING ON AN EMPTY STOMACHStart: 01-08-2024 End: 37-78-1617rqve 1 tablet by mouth once dailyPantoprazole 40 mg tablet,delayed release (DR/EC) Discontinued 40 MG PO Daily January 08, 2024 12:00am January 08, 2024 5:36pmStart: 16-69-0480Kpqtoowd 40 mg tablet Daily, Refills(s) 0 Start Date: 02/21/22 Status: Orderedtake 1 tablet by mouth once daily in the morningPantoprazole Sodium 40 mg TAKE 1 TABLET BY MOUTH EVERY MORNING ON AN EMPTY STOMACH for 30 ActivePantoprazole 40 mg tablet,delayed release (DR/EC) (2 sources)Start: 01-08-2024 End: 24-09-0506flas 1 tablet by mouth once daily in [...] mg oral tablet (13 sources)HMG-CoA Reductase InhibitorStart: 02-35-0658xzvq 1 tablet by mouth once daily in the eveningRosuvastatin Calcium 10 MG Oral Tablet TAKE 1 TABLET BY MOUTH EVERY EVENING Quantity: 30 Refills: 0Ordered: 23-Sep-2021 DO Start : 24-May-2021 ActiveCrestor Not-Taking/PRNCrestor Not-TakingCrestor Active sulfacetamide sodium 100 mg/ml ophthalmic solution (12 sources)Sulfonamide AntibacterialStart: 02-01-2024 End: 61-88-3748ullb 1 drop(s) into the eye(s) four times dailySulfacetamide Sodium 10 % drops Discontinued 2 DROPS EYE-BOTH Four times daily 02 18January 312:00am June 13, 2024 5:24pmStart: 02-01-2024 End: 96-63-9619jtxt 1 drop(s) into the eye(s) four times dailySulfacetamide Sodium 10 % drops Discontinued 2 DROPS EYE-BOTH Four times daily 02 18January 301:00pm June 13, 2024 4:24pmStart: 02-01-2024 End: 83-26-8290zfqt 1 drop(s) into the eye(s) four times dailySulfacetamide Sodium Discontinued 2 DROPS EYE-BOTH Four times daily 02 18February 01, 2024 12:00am June 13, 2024 5:24pmStart: 07-22-6597jmvd 2 drop(s) into the eye(s) four times dailySulfacetamide Sodium 10 % 2 drops Ophthalmic qid for 7 days May, ActivetiZANidine 4 mg oral tablet (1 source)Central alpha-2 Adrenergic AgonistStart: 12-01-2024 End: 82-37-9796yhtg 1 dose by mouth once4 mg, Oral, ONCE, 1 dose, On Sun12/01/24 at 2300traMADol hydrochloride 50 mg oral tablet (5 sources)Opioid AgonistStart: 12-04-2024 End: 94-49-9995lkby 1 tablet by mouth every eight hours as needed for pain Tramadol 50 mg tablet Discontinued 50 MG PO Every 8 hours as needed for pain 11 05December 04, 2024 1:00am May 05, 2025 2:47pmtriamcinolone acetonide 40 mg/ml injectable suspension (16 sources)CorticosteroidStart: 81-77-9993Ebgszqn-40 Aug, 60 mgStart: 12-52-3431Oivzrne-40 Apr, 40 mgzolpidem tartrate 5 mg oral tablet (17 sources)gamma-Aminobutyric Acid-ergic AgonistStart: 10-21-2024 End: 69-70-1440xnmf 1 tablet by mouth once daily at bedtime as needed for sleep Zolpidem 5 mg tablet Discontinued 5 MG PO Daily at bedtime as needed for sleep February 13, 2025 11:50am June 08, 2025 8:52am Problems Active Problems Problem ClassificationProblemDateDocumented DateEpisodic/ChronicAcquired foot deformities (1 source)Foot drop, right footEpisodicAnxiety disorders (20 sources)Generalized anxiety disorder; Translations: [Generalized anxiety disorder]31-98-0844IhkbnwgCaznlcehx-deficit, conduct, and disruptive behavior disorders (3 sources)Attention deficit hyperactivity disorder, predominantly inattentive type; Translations: [Attention deficit disorder of childhood without mention of hyperactivity]Onset: 02-62-0948UcubgvhUglujon tract disease (2 sources)Gallstone; Translations: [Calculus of gallbladder without cholecystitis without obstruction]Onset: 281736-11-0820XjeeuixdCtyyiy of kidney and renal pelvis (2 sources)Malignant tumor of kidney; Translations: [Malignant neoplasm of unspecified kidney, except renal pelvis]Onset: 15-39-1136RlckqxnHlrhkvv dysrhythmias (3 sources)Nonsustained ventricular tachycardia ; Translations: [Paroxysmal ventricular tachycardia]ChronicCardiac dysrhythmias (20 sources)Palpitations; Translations: [Palpitations]75-26-5881Yzaqagmq Conditions associated with dizziness or vertigo (15 sources)Dizziness; Translations: [Dizziness and giddiness]EpisodicDeficiency and other anemia (9 sources)Anemia; Translations: [Anemia, unspecified]05-15-5246SrhetqomPsgefqmr mellitus without complication (14 sources)Impaired fasting glycemia; Translations: [Impaired fasting glucose] Onset: 12-98-5196VcohnbelArzslmukhu disorders (8 sources)Esophageal reflux finding; Translations: [Esophageal reflux]Onset: 35-19-5878JfdeycpJaqqplfsta disorders (8 sources)Esophageal disorders; Translations: [Gastroesophageal reflux disease with esophagitis without hemorrhage]Essential hypertension (20 sources)Hypertensive disorder; Translations: [Unspecified essential hypertension]Onset: 405327-25-0659JkdmzycUqgkj and electrolyte disorders (14 sources)Hypokalemia; Translations: [Hypokalemia]Onset: 90-10-7215Jvfusqvd Genitourinary symptoms and ill-defined conditions (11 sources)Retention of urine; Translations: [Retention of urine, unspecified] Onset: 01-01-2022 Resolved: 68-07-4459YkvrcdoaNbylviam; including migraine (13 sources)Migraine with aura; Translations: [Migraine with aura, not intractable, without status migrainosus]ChronicHeadache; including migraine (1 source)Headache; including migraine; Translations: [HEADACHE UNSPECIFIED] Onset: 05-16-6463Boihdxdkiwhn; infection of eye (except that caused by tuberculosis or sexually transmitteddisease) (17 sources)Allergic dermatitis of unspecified eye, unspecified eyelid; Translations: [Contact or allergic eyelid dermatitis]Onset: 16-33-0487Fadjkxvn Influenza (3 sources)Upper respiratory tract infection due to Influenza; Translations: [Influenza due to unidentified influenza virus with other respiratory manifestations]EpisodicMiscellaneous mental health disorders (20 sources)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; 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] 99-09-0821OyoqsiiGzhk disorders (20 sources)Mild recurrent major depression; Translations: [Major depressive disorder, recurrent, mild]Onset: 08-24-2015 Resolved: 11-18-0117DlpyqykQdvhf connective tissue disease (1 source)Pain in right foot; Translations: [PAIN IN RIGHT FOOT]Onset: 19-99-4651LfmpktliLjzja diseases of bladder and urethra (4 sources)Urethral stricture; Translations: [Unspecified urethral stricture, female]Onset: 16-11-7816LgviotdjSrpdu diseases of kidney and ureters (12 sources)Renal mass; Translations: [Other specified disorders of kidney and ureter]Onset: 443890-96-7992EjgznufGjinevg on above:CT: 1.5cm right renal mass - T: 1.5cm right renal mass - 11/2024MRI: 1.7cm right renal mass - 04/2025Other diseases of kidney and ureters (1 source)Other specified disorders of kidney and ureter; Translations: [Unspecified disorder of kidney and ureter]24-12-1282FfeucxgPmqdg diseases of kidney and ureters (1 source)Disorder of kidney and/or ureter; Translations: [Other specified disorders of kidney and ureter]Onset: 27-57-7176GfvulyiYegie endocrine disorders (13 sources)Disorder of endocrine system; Translations: [Endocrine disorder, unspecified]Onset: 06-29-7002SobyohepMwopb endocrine disorders (5 sources)Endocrine disorder, unspecified; Translations: [ENDOCRINE DISORDER UNSPECIFIED]Onset: 76-76-5025PlmeldtiAkokd gastrointestinal disorders (5 sources)Constipation; Translations: [Constipation, unspecified]06-08-2025 EpisodicOther liver diseases (4 sources)Fatty (change of) liver, not elsewhere classified; Translations: [Metabolic dysfunction-associated steatotic liver disease (MASLD)]06-08-2025 ChronicOther nervous system disorders (7 sources)Common peroneal nerve paralysis; 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, right lower limb]ChronicOther non-traumatic joint disorders (4 sources)Pain in right ankle and joints of right foot; Translations: [PAIN IN RIGHT ANKLE]Onset: 39-74-1994EmptkhmzSavgy nutritional; endocrine; and metabolic disorders (15 sources)Obesity; Translations: [Obesity, unspecified]ChronicOther nutritional; endocrine; and metabolic disorders (3 sources)Simple obesity ; Translations: [Other obesity due to excess calories] Onset: 73-77-7620LzcxvlmDxxip nutritional; endocrine; and metabolic disorders (6 sources)Body mass index 30+ - obesity; Translations: [Body mass index 31.0- 31.9, adult]Onset: 88-29-9487SmkewaxBrtxk nutritional; endocrine; and metabolic disorders (3 sources)Obese class I; Translations: [Body mass index 32.0-32.9, adult]Onset: 34-92-8598CisrlleCiozv nutritional; endocrine; and metabolic disorders (1 source)Overweight in adulthood with body mass index of 25 or more but less than 30; Translations: [Overweight]EpisodicOther screening for suspected conditions (not mental disorders or infectious disease) (20 sources)Electrocardiogram abnormal; Translations: [Nonspecific abnormal electrocardiogram [ECG] [EKG]]Onset: 11-30-2022 Resolved: 80-56-0265QfrezgyxNiwdd skin disorders (13 sources)Vesicular eczema of hands and/or feet; Translations: [Dyshidrosis [pompholyx]]EpisodicOther upper respiratory disease (17 sources)Seasonal allergic rhinitis; Translations: [Other seasonal allergic rhinitis]ChronicOther upper respiratory disease (3 sources)Other seasonal allergic rhinitisChronicOther upper respiratory disease (3 sources)Allergic rhinitis; Translations: [Allergic rhinitis, unspecified] Onset: 00-89-3465KwfbnrcEmlom upper respiratory disease (2 sources)Seasonal allergy; Translations: [Other seasonal allergic rhinitis] ChronicOther upper respiratory infections (20 sources)Acute sinusitis, unspecified; Translations: [Acute pharyngitis] Onset: 09-08-2013 Resolved: 81-83-7136RvtwnfyhQprorjzwmi disorders (not diabetes) (4 sources)Gallstone acute pancreatitis; Translations: [Biliary acute pancreatitis without necrosis or infection]Onset: 603995-52-9219Txlehbkv Residual codes; unclassified (1 source)Acquired absence of other specified parts of digestive tract; Translations: [Other acquired absenceof organ]66-51-0651CkijowitQvbktwniffh; intervertebral disc disorders; other back problems (8 sources)Cervicalgia; Translations: [Low back pain]Onset: 39-44-1995Sjvpmprq Sprains and strains (6 sources)Neck sprain; Translations: [Neck sprain and strain]Onset: 01-09-2019 EpisodicUnclassified (3 sources)Other ventricular tachycardia; Translations: [Other ventricular tachycardia]Urinary tract infections (10 sources)Urinary tract infectious disease; Translations: [Urinary tract infection, site not specified]Onset: 01-01-2022 Resolved: 15-81-8463Mknuumlv Past or Other Problems Problem ClassificationProblemDateDocumented DateEpisodic/ChronicAbdominal pain (3 sources)Abdominal pain; Translations: [Unspecified abdominal pain]Onset: 70-31-0378PuxctigiNhdrnllby infection; unspecified site (3 sources)Bacterial infectious disease; Translations: [Bacterial infection, unspecified, in conditions classified elsewhere and of unspecified site]Onset: 12-52-2981UurdawyzPyfgjeqb; including migraine (6 sources)Idiopathic stabbing headache; 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]Onset: 01-09-2019 Resolved: 57-36-5871YvmbbbxtPqxlpuxcbwzdc and screening for infectious disease (4 sources)Contact with and (suspected) exposure to other viral communicable diseases; Translations: [Contact with and (suspected) exposure to other viral communicable diseases Z20.828]Onset: 08-03-2021 Resolved: 30-75-3070WkdqzyalFtuwniayuuat diseases of female pelvic organs (2 sources)Acute vaginitis; Translations: [Acute vaginitis]46-96-8548Jmyqqwro Malaise and fatigue (3 sources)Fatigue; Translations: [Other fatigue]Onset: 02-01-2022 Resolved: 25-96-9576EexhwhwtElljmxmszfghr mental health disorders (3 sources)Emotional state finding; Translations: [Other symptoms and signs involving emotional state] Resolved: 43-27-9147QbzdwmswFlprcp and vomiting (3 sources)Nausea and vomiting; Translations: [Nausea with vomiting, unspecified]Onset: 09-50-4498VdzytxdnObjbw aftercare (1 source)Other extermination inspector (current) drug therapy; Translations: [OTH DATA LEAD CURRENT DRUG THERAPY]Onset: 15-93-9725JirdanmwCqvqu connective tissue disease (1 source)Cramp and spasm; Translations: [CRAMP AND SPASM]Onset: 07-18-2022 EpisodicOther connective tissue disease (3 sources)Spasm; Translations: [Spasm of muscle]Onset: 92-61-5283QsicrlonGlykq endocrine disorders (4 sources)Other specified endocrine disorders; Translations: [OTHER SPECIFIED ENDOCRINE DISORDERS]Onset: 80-53-9545XofuajbjJsokf lower respiratory disease (3 sources)Dyspnea; Translations: [Shortness of breath] Resolved: 98-39-8011EbrtmtzeKhqll nutritional; endocrine; and metabolic disorders (3 sources)Abnormal weight gain; Translations: [Abnormal weight gain]Onset: 14-91-9949UkfhnwcnAdxmj nutritional; endocrine; and metabolic disorders (3 sources)Overweight; Translations: [Overweight]Onset: 44-42-0133PyuslotkYogpn nutritional; endocrine; and metabolic disorders (3 sources)Body mass index 25-29 - overweight; Translations: [Body mass index 28.0-28.9, adult]Onset: 11-51-4361KptmpqjlBxgtv skin disorders (3 sources)Sebaceous cyst; Translations: [Sebaceous cyst]Onset: 02-25-2015 EpisodicOtitis media and related conditions (7 sources)Eustachian tube salpingitis; Translations: [Unspecified Eustachian salpingitis, right ear]Onset: 12-26-2017 Resolved: 49-33-5625VtpsbzqcYdrgfufo codes; unclassified (15 sources)Postmenopausal state; Translations: [Asymptomatic menopausal state] Onset: 307737-74-3781OhtjgyqdYgqtpkaq codes; unclassified (6 sources)History of partial nephrectomy; Translations: [Acquired absence of kidney]Onset: 024122-44-6819CmhawsgsUxovrhbimpfb (2 sources)Never smoked tobacco; Translations: [Never a smoker]Unclassified (9 sources)NSVT (nonsustained ventricular tachycardia); Translations: [NSVT (nonsustained ventricular tachycardia)]Unclassified (1 source)Contact with and (suspected) exposure to covid-19 Z20.822Unclassified (3 sources)General observation; Translations: [Observation following other accident]Onset: 78-99-4225Lcwcm infection (1 source)COVID-19 Results Test NameValueInterpretationReference RangeFacilityAmbulatory Visit Summaryon 15-22-5433Rfuabiiqyc Visit SummaryAmbulatory Visit Summary JENNIFER ZAMORA :1970 [...] Complex oral tablet) omega-3 polyunsaturated fatty acids (Whiteoak-3 Fish Oil 1000 mg oral capsule) phentermine-topiramate [...] Mckay, URL, URO When: Where: [address] [place] [address] [phone] You Need to Complete the Following Comprehensive [...] No, Renal cell carcinoma, pp_set_radiology_subspecialty, [facility] Medications What How Much When Instructions Unchanged [...] or concerns Unchanged omega-3 polyunsaturated fatty acids (Whiteoak-3 Fish Oil 1000 mg oral capsule) By [...] signed up for this yet, please contact [employer] at [phone] to get signed up today. Language Information Language assistance services are available as needed. [facility] Office/Clinic Noteon 99-30-4195Jybtvmr Office/Clinic NoteUrology Office/Clinic Note Chief Complaint 2 [...] Information Audie MADERA, Rosmery Mckay, URL, [facility] [address] [place] [address] [phone] Additional Instructions: 3 mos w/ CT Abd [...] Tab, 25 mg= 1 tab(s), Oral, Daily Whiteoak-3 Fish Oil 1000 mg oral capsule, Oral [...] Results Bilirubin Urine Dipst (more content not included)...[facility] Medical CenterComment on above:Result Comment: Electronically Signed By: Rosmery Bronson MD\.br\Date and Time Signed: 06/18/25 10:42EDT\.br\Electronically Co-Signed By: Katie Mccoy\.br\Date and Time Co-Signed: 06/18/25 09:25 EDTSurgical Pathology Reporton 83-73-2231[place] Pathology Report[address] [place] [address]- Surgical Pathology Report Collected Date/Time: 06/02/2025 15:00 [...] characteristics were determined by the Laboratory of [facility] Surgical Pathology. They have not been [...] recognition technology and might contain unintended computerized freelance graphic designer errors. Microscopic examination performed unless gross only specified. Quality was accessed and acceptable.NormalParkview HealthComment on above:Performed By: #### [id number] #### [facility] [address], [place] [address]Rfvtntfwtq - Chemistry and Chemistry - challengeOrdered By: Grady Das on 61-44-7598Sxqnhsqpo Ql (U)NegativeNEGCleveland Clinic Lutheran HospitalGlucose (U) [Mass/Vol]NegativeNEGCleveland Clinic Lutheran HospitalKetones Ql (U)NegativeNEGCleveland Clinic Lutheran HospitalpH (U)6.0 [pH]5.0-9.0[facility] – Jacksonpecific gravity (U) [Rel density] 1.0101.005-1.025Detwiler Memorial HospitalUrobilinogen Qn (U)0.2 {Ciara'U}/dL0.2-1.0Det[facility] HospitalLaboratory - Specimen informationOrdered By: Grady Das on 47-02-5225Rbraqyresc (U)CLEARCLEAR [facility]iler [facility] HospitalColor (U)LT. YELLOWYELLOWDetwiler Memorial HospitalLaboratory - UrinalysisOrdered By: Grady Das on 06-08-2025 Leukocyte esterase Test strip Ql (U)NegativeNEGCleveland Clinic Lutheran HospitalMucus Ql (Urine sed)NONE SEENNONE [facility] Nitrite Ql (U)NegativeNEGCleveland Clinic Lutheran HospitalProtein Ql (U) NegativeNEG/TRACEDetwiler Memorial HospitalNo Panel InformationOrdered By: Grady Dsa on 10-60-4272Zjszn BacteriaNONE SEEN #/HPFNONE [facility] SouthUrine Occult BloodSMALLAbnormalNEGATIVEDetwiler Memorial HospitalUrine Other CastsNONE SEEN #/LPFNONE SEENDetwiler Memorial HospitalUrine Other CrystalsNone Seen #/HPFNone [facility]stownUrine RBC0-2 #/HPF0-2FThe Jewish HospitalUrine Squamous Epithelial CellsNONE SEEN #/LPFNONE/RAREDetwiler Memorial HospitalUrine WBC0-2 #/HPFAbnormalNONE SEENDetwiler Memorial HospitalUrine Cultureon 00-51-3589Ebxsqnyv identified Cx Nom (U)No Growth 2 Days PERFORMED BY: [facility] [address] [place] [address] PATHOLOGIST FIELD TECHNICIAN KELLEY KOWALSKI M.D.NormalBayfront Health St. Petersburg Physician GroupComment on above: Performed By: #### CUU #### [facility] [address] [place] [address] USAUrine cultureOrdered By: Grady Das on 06-08-2025 Bacteria identified Cx Nom (U)No Growth 2 DaysDetwiler Memorial Hospital BMPon 21-87-4307Kllqk gap [Moles/Vol]9 mmol/LNormal6-16Parkview HealthComment on above:Performed By: #### [id number] #### [facility] [address], [place] [address]UBZ/Creat Ratio26 No LchuiJjof48-96VkckhfParkview Health Comment on above:Performed By: #### [id number] #### [facility] [address], [place] [address]Elcpbfz [Mass/Vol]8.6 mg/dLLow8.9-11.1FOhioHealth Southeastern Medical CenterComment on above:Performed By: #### [id number] #### [facility] [address], [place] [address]Ntjyhzhz [Moles/Vol]103 mmol/VNtdknx602-749YdxqkxParkview HealthComment on above:Performed By: #### [id number] #### [facility] [address], [place] [address]EJ1 [Moles/Vol]27 mmol/ODedlag24-28DvzehvParkview Health Comment on above:Performed By: #### [id number] #### [facility] [address], [place] [address]Jtpmlptyav [Mass/Vol]0.7 mg/dLNormal0.5-1.3FOhioHealth Southeastern Medical CenterComment on above:Performed By: #### [id number] #### [facility] [address], [place] [address]Soicdra [Mass/Vol]100 mg/vDVtdgsj31-944TrhdvpParkview HealthComment on above:Performed By: #### [id number] #### [facility] [address] [place] [address]Vcilbgeym [Moles/Vol]4.2 mmol/LNormal3.5-5.3FOhioHealth Southeastern Medical CenterComment on above:Performed By: #### [id number] #### [facility] [address] [place] [address]Anavoa [Moles/Vol]135 mmol/JVynsby762-033IfupzjParkview HealthComment on above:Performed By: #### [id number] #### [facility] [address] [place] [address]Cilw nitrogen [Mass/Vol]18 mg/dLNormal5-21Parkview HealthComment on above:Performed By: #### [id number] #### [facility] [address], [place] [address]KTD w/ Auto Diffon 83-73-2861Slgyazoh Absolute0.0 E9/LNormal 0.0-0.2FOhioHealth Southeastern Medical CenterComment on above:Performed By: #### [id number] #### [facility] [address], [place] [address]Crljjatea/100 WBC (Bld)0.1 %Normal0.0-2.0Parkview HealthComment on above:Performed By: #### [id number] #### [facility] [address], [place] [address]Gbv Absolute0.0 E9/LNormal0.0-0.5FOhioHealth Southeastern Medical Center Comment on above:Performed By: #### [id number] #### [facility] [address] [place] [address]Yopuorapgen/100 WBC (Bld)0.0 %Normal0.0-8.0Parkview HealthComment on above:Performed By: #### [id number] #### [facility] [address] [place] [address]Jqhvgvvsgns distribution width (RBC) [Ratio]12.9 %Normal 10.9-14.2FOhioHealth Southeastern Medical CenterComment on above:Performed By: #### [id number] #### [facility] [address] [place] [address]Cvddxpdryc (Bld) [Volume fraction]37.2 %Tswbjq16.0-46.0Parkview HealthComment on above:Performed By: #### [id number] #### [facility] [address] [place] [address]Opgobvilwk (Bld) [Mass/Vol]13.0 g/uJKoqyvm29.0-16.0Parkview HealthComment on above:Performed By: #### [id number] #### [facility] [address] [place] [address]Pvjig Absolute1.1 E9/LNormal1.0-4.0[facility] Comment on above:Performed By: #### [id number] #### [facility] [address] [place] [address]Jtjymrsdzyl/100 WBC (Bld)11.8 %Low14.0-50.0Parkview HealthComment on above:Performed By: #### [id number] #### [facility] [address] [place] [address]DQY (RBC) [Entitic mass]31.8 kcQpcxkx27.0-34.0Parkview HealthComment on above:Performed By: #### [id number] #### [facility] [address], [place] [address]YIAI (RBC) [Mass/Vol]35.0 g/dHBsvcjh45.4-36.0Parkview HealthComment on above:Performed By: #### [id number] #### [facility] [address], [place] [address]NZI (RBC) [Entitic vol]90.8 eQXnuqok26.0-100.0Parkview HealthComment on above:Performed By: #### [id number] #### [facility] [address], [place] [address]Ieio Absolute0.6 E9/LNormal0.2-1.0[facility] Comment on above:Performed By: #### [id number] #### [facility] [address], [place] [address]Yckxjivhc/100 WBC (Bld)6.9 %Normal4.0-14.0Parkview HealthComment on above:Performed By: #### [id number] #### [facility] [address], [place] [address]Bxbzpq Absolute7.4 E9/LNormal2.0-7.5FOhioHealth Southeastern Medical Center Comment on above:Performed By: #### [id number] #### [facility] [address], [place] [address]Npnnhp Auto81.2 %High36.0-75.0[facility] Comment on above:Performed By: #### [id number] #### [facility] [address], [place] [address]Wnqfxafc304.0 E9/DDabuze891.0-500.0[facility] Comment on above:Performed By: #### [id number] #### [facility] [address], [place] [address]Fchqswme mean volume (Bld) [Entitic vol]7.8 fLNormal6.4-10.8 Parkview HealthComment on above:Performed By: #### [id number] #### [facility] [address], [place] [address]EEK5.1 E12/LLow4.3-5.9Parkview HealthComment on above:Performed By: #### [id number] #### [facility] [address], [place] [address]VLE1.1 E9/LNormal4.0-11.0Parkview HealthComment on above:Performed By: #### [id number] #### [facility] [address], [place] [address]Ixhfzicgy Note-Nursingon 34-17-4942Kvqrtpatt Note-Nursing Discharge Note-Nursing JENNIFER ZAMORA :1970 Visit [...] physician. This Is Your Medications List acetaminophen-hydrocodone ([place]uncie 325 mg-5 mg oral tablet) aspirin (Aspirin Low Dose) cholecalciferol-menaquinone (K2-D3 5000 125 mcg (5000 intl units)-90 mcg oral capsule) hydrochlorothiazide-losartan (hydrochlorothiazide-losartan 12.5 mg-50 mg Tab) metoprolol (metoprolol succinate 25 mg ER Tab) multivitamin (Super B Complex oral tablet) omega-3 polyunsaturated fatty acids (Whiteoak-3 Fish Oil 1000 mg oral capsule) zolpidem [...] MADERA, Rosmery Mckay Where: [facility] [address] [place] [address]- New Follow Up Appointments after Discharge Follow Up with GRADY DAS When: 06/08/2025 08:30 AM EDT Where: [address] [facility], [place] [address]- Business (1) Follow Up with Rosmery Bronson When: Comments: Office to schedule your follow up in 2 weeks for pathology review and postop check Where: [address], [address] [facility] [address] [place] [phone] Business (1) Medications What How Much When Why Instructions Next Dose New acetaminophen-hydrocodone ([place]uncie 325 mg-5 mg oral tablet) 2 Tablets By Mouth Every 4 hours as needed for as needed for pain Acute post-operative pain Renal mass, right Duration: 3 Days Take 1-2 tabs every 4 hours as needed for moderate to severe pain. Not to exceed 8 tablets/ day Pickup at [facility]/pharmacy #[id number] 06/03/25 4:20pm Unchanged aspirin (Aspirin Low [...] day Resume Unchanged omega-3 polyunsaturated fatty acids (Whiteoak-3 Fish Oil 1000 mg oral capsule) By Mouth Resume Unchanged zolpidem (zolpidem 5 mg Tab) Resume Pharmacy Information [facility]/pharmacy #[id number]: [address] [place], [place] [id number] [phone] Test Results CBC BMP WBC: 9.1 E9/L [...] to care for y (more content not included)...[facility] CenterInpatient Clinical Summaryon [id number] Clinical SummaryInpatient Clinical Summary [address] [address] Clinical Summary Person Information: Name: JENNIFER ZAMORA Age: 54 Years : 1970 Sex: Female PCP: GRADY DAS DO Marital Status: Race: White Ethnicity: Non- or Language: Niuean Visit Id: Visit Reason: RENAL MASS Speciality: Acuity: Enc Type: Outpatient in a Bed Med Service: Surgery Arrival: 06/02/2025 07:30:02 Discharge: Dispo Type: Address: [address] [place] [phone] Provider Notes: Patient: JENNIFER ZAMORA Age: 54 [...] % HI Lymph Auto 11.8 % LOW Beauregard Auto 6.9 % Eos Auto 0.0 % Basophil Auto 0.1 % Neutro Absolute 7.4 E9/L Lymph Absolute 1.1 E9/L Bea[place]gard Absolute 0.6 E9/L Eos Absolute 0.0 E9/L [...] Documented This Visit Final Med List: acetaminophen-hydrocodone ([place] 325 mg-5 mg oral tablet) 2 Tablets [...] ER Tab) 1 Tab (more content not included)...[facility] CenterInpatient Patient Summaryon 51-68-4931Ktecbwzxk Patient SummaryInpatient Patient Summary [place] [address] Patient Discharge Instructions PERSON INFORMATION Name: JENNIFER [...] With: Address: When: GRADY DAS [address] [place], [place] [id number] Business (1) 06/08/2025 8:30 AM With: Address: When: Rosmery Audie [address] [place] [address], [address] [phone] Business (1) Comments: Office to schedule your follow up in 2 weeks for pathology review and postop check In the event that this physician does not participate in your insurance network, please consult with your insurance company to find a nearby participating provider. Type Location Start [facility] Office Visit [facility] 06/18/2025 8:45 AM 06/18/2025 9:00 AM Confirmed Comment: EMILY Morales LIBBY L, have received the attached patient education materials/instructions and have verbalized understanding: Patient Signature Date Clinican/Nurse Signature Date HERE ARE THE MEDICATION CHANGES THAT OCCURRED DURING YOUR HOSPITAL STAY New Medications [id number], [address] [place], [place] [id number], [phone] acetaminophen-hydrocodone ([place]uncie 325 mg-5 mg oral tablet) 2 Tablets [...] Dose: Next Dose: omega-3 polyunsaturated fatty acids (Whiteoak-3 Fish Oil 1000 mg oral capsule) By Mouth. Last Dose: Next Dose: zolpidem (zolpidem 5 mg Tab) Last Dose: Next Dose: Comment: MEDICATION LIST PROVIDED FOR YOU IS A LIST OF YOUR CURRENT MEDICATIONS. PLEASE CARRY THIS WITH YOU AT ALL TIMES. acetaminophen-hydrocodone ([place]ie 325 mg-5 mg oral tablet) 2 Tablets [...] Mouth every day. omega-3 polyunsaturated fatty acids (Whiteoak-3 Fish Oil 1000 mg oral capsule) By Mouth. zolpidem (zolpidem 5 mg Tab) Pharmacy Information: Comment: (more content not included)...[facility] Medical CenterInterdisciplinary Note - Case Manageron 64-01-3706Ifyeiqtltirdemwwo Note - Log Sorting Supervisor Interdisciplinary Note - Log Sorting Supervisor Patient is awake and alert in bed, previously rounded with Urology. Patient is up in chair, feelingbetter. States her Dr will call to check on her this afternoon, and plan to DC home later today. Patient is independent at home with spouse and he will transport at [place]. Declines any concerns or DC needs. CRM following. . PCP verified and insurance information reviewed and DME discussed. Contact information provided and white board updated.[facility] Medical CenterComment on above:Result Comment: Electronically Signed By: Cathleen FLORENTINO, Yaneth\.alan\Date and Time Signed: 06/03/25 09:39 EDTMain OR Intraoperative Recordon [id number] OR Intraoperative RecordMain OR Intraoperative Record IntraOp Document Type FT Summary Primary Physician: Rosmery Bronson MD Finalized Date/Time: 06/03/25 09:35:39 Pt. Name: JENNIFER ZAMORA.O.B./Sex: 1970 Female Med Rec #: [id number] Physician: Rosmery Bronson MD Financial #: [id number] Pt. Type: O Room/Bed: N317/01 Admit/Disch: 06/02/25 [...] AT 1457. SURGEON AT [employer] FROM [id number].MISHEL SUMMERS. CLAMP TIME FROM [id number], 24 MINS AND 25 SECONDS.MISHEL SUMMERS. Case Attendance FT Entry 1 Entry 2 Entry 3 Case Attendee Mariajose [facility], Dawson Bronson MD, Shalini Balderas Role Performed Anesthesiologist Surgeon - Primary Laundry Equipment Operator - Primary Superintendent Circus Time In 06/02/25 09:43:00 06/02/25 09:43:00 06/02/25 09:43:00 Time Out 06/02/25 14:21:00 06/02/25 15:25:00 06/02/25 15:25:00 Procedure NEPHRECTOMY PARTIAL, NEPHRECTOMY PARTIAL, NEPHRECTOMY PARTIAL, ROBOT ASSISTED(Right) ROBOT ASSISTED(Right) ROBOT ASSISTED(Right) Comments IS SUPERVISING OUT FOR LUNCH 1240- Last Modified By: Shalini Tarango Kelsie E Burgderfer, Kelsie E 06/02/25 15:31:27 06/02/25 15:31:27 06/02/25 15:31:27 Entry 4 Entry 5 Entry 6 Case Attendee Moy SHANK THREADER, Porsha Singh SHANK THREADER, Fang Denny RN, Connie E Role Performed Scrub - Primary SHANK THREADER/SA Laundry Equipment Operator - Relief Time In 06/02/25 09:43:00 06/02/25 [...] Case Attendee Francisco DRISCOLL, Veronika Baxter DNP, AUDIOVISUAL LIBRARIAN, [place] Role Performed SHANK THREADER/SA Scrub - Relief AUDIOVISUAL LIBRARIAN Time In 06/02/25 12:49:00 06/02/25 12:50:00 06/02/25 14:20:00 Time Out 06/02/25 14:04:00 06/02/25 13:51:00 06/02/25 14:57:00 Procedure NEPHRECTOMY PARTIAL, NEPHRECTOMY PARTIAL, NEPHRECTOMY PARTIAL, ROBOT ASSISTED(Right) ROBOT ASSISTED(Right) ROBOT ASSISTED(Right) Comments LUNCH RELIEF FOR IS SUPERVISING ZHENG,SHANK THREADER/SA Last Modified By: Shalini Tarango Kelsie E Burgderfer, Kelsie E 06/02/25 15:31:27 06/02/25 15:31:27 06/02/25 15:31:27 Entry 10 Case Attendee Yoselin Jacobs CRNA Role Performed AUDIOVISUAL LIBRARIAN Time In 06/02/25 14:53:00 Time Out 06/02/25 15:25:00 Procedure NEPHRECTOMY PARTIAL, ROBOT ASSISTED(Right) Comments IS SUPERVISING Last Modified By: Shalini Tarango 06/02/25 15:31:27 General Comments: TRENA ANDINO,[facility], IN ATTENDANCE.MISHEL SUMMERS. Perioperative Protocols [...] Surgeon Audie Velasco (more content not included)...Normal [facility] HealtheGFRon 52-03-1560eUKF005 mL/min/1.73 a9Ucneew>=59 [facility] HealthComment on above:Performed By: #### [id number] ####[facility] [address] [place] [address] ABO/Rhon 29-63-9751XUQ/RhPositiveInvalid Interpretation CodeParkview HealthComment on above:Performed By: #### [id number] #### [facility] [address], [place] [address]GBQ/Rh History Checkon 10-52-5440AKG/Rh History CheckVerified Hx Blood TypeNormalParkview HealthComment on above:Performed By: #### [id number] #### [facility] [address], [place] [address]VWPZvm 94-32-3580OBXU Gel InterpNegativeNormalParkview HealthComment on above:Performed By: #### [id number] #### [facility] [address] [place] [address]Ivlxv Bank ID#on [id number]#[id number] Interpretation CodeParkview HealthComment on above:Performed By: #### [id number] #### [facility] [address] [place] [address]Qnczybffo Patient Summaryon [id number] Patient Summary Inpatient Patient Summary [address] [address] [facility] Clinical Discharge Instructions PERSON INFORMATION Name: JENNIFER ZAMORA PHYSICIANS Admitting Physician: Rosmery Bronson MD Attending Physician: Rosmery Bronson MD PCP: GRADY DAS DO Discharge Diagnosis: Comment: PATIENT EDUCATION INFORMATION Instructions: Minimally Invasive Nephrectomy, Care After Medication Leaflets: Follow up: With: Address: When: Rosmery Bronson [address] [place] [phone] Business (1) Comments: Office to schedule your [...] Mouth every day. omega-3 polyunsaturated fatty acids (Whiteoak-3 Fish Oil 1000 mg oral capsule) By Mouth. zolpidem (zolpidem 5 mg Tab) Comment:[facility] CenterMain OR Intraoperative Recordon [id number] OR Intraoperative RecordMain OR Intraoperative Record IntraOp Document Type FT Summary Primary Physician: Rosmery Bronson MD Finalized Date/Time: 06/02/25 15:32:14 Pt. Name: JENNIFER ZAMORA /Sex: 1970 Female Med Rec #: [id number] Physician: Rosmery Bronson MD Financial #: [id number] Pt. Type: A Room/Bed: [facility] Admit/Disch: 06/02/25 07:30:02 - Institution: Case Times [...] AT 1457. SURGEON AT [employer] FROM [phone].MISHEL SUMMERS. CLAMP TIME FROM [phone], 24 MINS AND 25 SECONDS.MISHEL SUMMERS. Case Attendance FT Entry 1 Entry 2 Entry 3 Case Attendee Dawson Salinas MD, Shalini Balderas Role Performed Anesthesiologist Surgeon - Primary Laundry Equipment Operator - Primary Superintendent Circus Time In 06/02/25 09:43:00 06/02/25 09:43:00 06/02/25 [...] Connie E Role Performed Scrub - Primary SHANK THREADER/SA Laundry Equipment Operator - Relief Time In 06/02/25 09:43:00 06/02/25 [...] Francisco DRISCOLL, Grady Bailey, Veronika Hensley DNP, AUDIOVISUAL LIBRARIAN, [place] Role Performed SHANK THREADER/SA Scrub - Relief AUDIOVISUAL LIBRARIAN Time In 06/02/25 12:49:00 06/02/25 12:50:00 06/02/25 14:20:00 Time Out 06/02/25 14:04:00 06/02/25 13:51:00 06/02/25 14:57:00 Procedure NEPHRECTOMY PARTIAL, NEPHRECTOMY PARTIAL, NEPHRECTOMY PARTIAL, ROBOT ASSISTED(Right) ROBOT ASSISTED(Right) ROBOT ASSISTED(Right) Comments LUNCH RELIEF FOR IS SUPERVISING ZHENG,SHANK THREADER/SA Last Modified By: Shalini Tarango Kelsie E Burgderfer, Kelsie E 06/02/25 15:31:27 06/02/25 15:31:27 06/02/25 15:31:27 Entry 10 Case Attendee Reynaldo DUONG, Yoselin Call Role Performed AUDIOVISUAL LIBRARIAN Time In 06/02/25 14:53:00 Time Out 06/02/25 15:25:00 Procedure NEPHRECTOMY PARTIAL, ROBOT ASSISTED(Right) Comments IS SUPERVISING Last Modified By: Shalini Tarango 06/02/25 15:31:27 General Comments: TRENA ANDINO,[facility] ATTENDANCE.MISHEL SUMMERS. Perioperative Protocols FT [...] Surgeon Audie Velasco (more content not included)...[facility] PACU I Recordon [id number] OR PACU I RecordMain OR PACU I Record PACU Phase I Document Type FT Summary Primary Physician: Rosmery Bronson MD Finalized Date/Time: 06/02/25 16:35:36 Pt. Name: JENNIFER ZAMORA D.O.B./Sex: 1970 Female Med Rec #: [id number] Physician: Rosmery Bronson MD Financial #: [id number] Pt. Type: O Room/Bed: [facility]/01 Admit/Disch: 06/02/25 07:30:02 - Institution: [...] Signatures Signed By: Mable Obregon RN 06/02/25 16:35NoMiami Valley HospitalMain OR Preoperative Recordon [id number] OR Preoperative RecordMain OR Preoperative Record PreOp Document Type FT Summary Primary Physician: Rosmery Bronson MD Finalized Date/Time: 06/02/25 10:33:51 Pt. Name: JENNIFER ZAMORA /Sex: 1970 Female Med Rec #: [id number] Physician: Rosmery Bronson MD Financial #: [id number] Pt. Type: A Room/Bed: [place] [address] Admit/Disch: 06/02/25 07:30:02 - Institution: Case Times [...] Document Signatures Signed By: Shalini Tarango 06/02/25 10:33NoMiami Valley HospitalOperative Reporton [id number] ReportOperative Report Patient: JENNIFER ZAMORA Age: 54 years Sex: Female : 1970 Associated Diagnoses: None Author: Rosmery Bronson MD Procedure Procedure Date: 06/02/2025. Confirmed: patient, procedure, side, site, safety procedures followed. Performed by: Rosmery Bronson MD, anesthesiologist (Dawson Billy [facility]). Type of procedure: Robotic Laparascopic assisted [...] line along lateral rectus. 5 mm subxiphoid engineering inspection assistant port for liver retraction and a 12 mm air seal engineering inspection assistant port superior to the umbilicus in [...] robot was undocke (more content not included)...Normal [facility] on above:Result Comment: Electronically Signed By: Audie MADERA, Rosmery Mckay\.alan\Date and Time Signed: 06/02/25 15:55EDT Outpatient Surgery Discharge Instructionon [id number] Surgery Discharge InstructionOutpatient Surgery Discharge Instruction [place] [id number] Patient Discharge Instructions PERSON INFORMATION Name: JENNIFER [...] With: Address: When: Rosmery Bronson [address] [facility], [place] [address], [address] [address] [phone] Business (1) Comments: Office to schedule your follow up in 2 weeks for pathology review and postop check Pharmacy Information: You may receive a survey from [employer] asking you to rate your care experience. Your feedback is important and will help us understand what we do well and how we can improve the quality of care we provide to you, your loved ones and our community. It???s an honor to serve you. Thank you for choosing [facility] HERE ARE THE MEDICATION CHANGES [...] Mouth every day. omega-3 polyunsaturated fatty acids (Whiteoak-3 Fish Oil 1000 mg oral capsule) By [...] these instructions at home: Medicines ??? Take gvbo-pue-dowsxpv and prescription medicines only as told by your health care provider. ??? Avoid using NSAIDs regularly over a long period of time. These include aspirin and ibuprofen. Doing so may damage your remaining kidney. -Tylenol 650-1000 mg every 6 hours as needed for pain. [place] for severe uncontrolled pain. These have 325 [...] keep your urine pale yellow. ? Take aebj-vlu-enqnphp or prescription medicines - Colace/Senna ? Eat [...] and water are not available, use hand investor relations analyst. ? Change your dressing as told by your health care provider- daily and as needed to keep dry, and until incisio (more content not included)...NormalParkview HealthUA with Cult Rflxon 02-36-2163Brrto (U)Light-YellowNormalYellow Park[facility] HealthComment on above:Result Comment: Microscopic readings are only performed on those samples that meet specific criteria set forth by [facility].Performed By: #### [id number] #### [facility] [address], [place] [address]Qwadwnr (U) [Mass/Vol]NegativeNormalNegativeParkview HealthComment on above:Performed By: #### [id number] #### [facility] [address], [place] [address]Ynbuzyh Ql (U)NegativeNormalNegativeParkview Health Comment on above:Performed By: #### [id number] #### [facility] [address], [place] [address]XZ BloodNegativeNormalNegativeParkview Health Comment on above:Performed By: #### [id number] #### [facility] [address], [place] [address]WO ClarityClearNormalClearParkview HealthComment on above:Performed By: #### [id number] #### [facility] [address], [place] [address]TQ Leuk EstNegativeNoKettering Health Dayton Comment on above:Performed By: #### [id number] #### [facility] [address] [place] [address]DL NitriteNegativeNormalCleveland Clinic Medina Hospital Comment on above:Performed By: #### [id number] #### [facility] [address], [place] [address]LI pH7.0Invalid Interpretation Code5.0-9.0[facility] HealthComment on above:Performed By: #### [id number] #### [facility] [address] [place] [address]KN ProteinNegativeNoKettering Health Dayton Comment on above:Performed By: #### [id number] #### [facility] [address], [place] [address]XD Spec Grav1.013Invalid Interpretation Code1.005-1.030[facility] HealthComment on above:Performed By: #### [id number] #### [facility] [address], [place] [address]HY UrobilinogenNegativeNormalNegTogus VA Medical CenterComment on above:Performed By: #### [id number] #### [facility] [address], [place] [address]Gzyazwejxppl (U) [Mass/Vol]NegativeNormalNegTogus VA Medical CenterComment on above:Performed By: #### [id number] #### [facility] [address], [place] [address]OX Spec DescFoleyNormProtestant Deaconess HospitalComment on above:Performed By: #### [id number] #### [facility] [address], [place] [address]ZEFil 27-20-2064Yvjko gap [Moles/Vol]10 mmol/LNormal6-16[facility]view HealthComment on above:Performed By: #### [id number] #### [facility] [address], [place] [address]FHG/Creat Ratio30 No QewxnJsgp90-77HnhlrhParkview Health Comment on above:Performed By: #### [id number] #### [facility] [address], [place] [address]Oifnjtz [Mass/Vol]9.8 mg/dLNormal8.9-11.1FOhioHealth Southeastern Medical CenterComment on above:Performed By: #### [id number] #### [facility] [address], [place] [address]Pbeyyfuo [Moles/Vol]100 mmol/BCmr045-151UhcjfgParkview HealthComment on above:Performed By: #### [id number] #### [facility] [address], [place] [address]BI7 [Moles/Vol]32 mmol/TCbwe07-67InzbzcParkview Health Comment on above:Performed By: #### [id number] #### [facility] [address], [place] [address]Uthpusdxmr [Mass/Vol]0.7 mg/dLNormal0.5-1.3FOhioHealth Southeastern Medical CenterComment on above:Performed By: #### [id number] #### [facility] [address], [place] [address]Npbsjfa [Mass/Vol]84 mg/rVZtstqi90-484PjqiagParkview HealthComment on above:Performed By: #### [id number] #### [facility] [address], [place] [address]Hvaumrbij [Moles/Vol]3.3 mmol/LLow3.5-5.3FOhioHealth Southeastern Medical CenterComment on above:Performed By: #### [id number] #### [facility] [address], [place] [address]Ldyqve [Moles/Vol]139 mmol/NGwfcsj261-516HphcpoParkview HealthComment on above:Performed By: #### [id number] #### [facility] [address] [place] [address]Wpzm nitrogen [Mass/Vol]21 mg/dLNormal5-21Parkview HealthComment on above:Performed By: #### [id number] #### [facility] [address] [place] [address]LZG w/ Auto Diffon 16-52-0440Ryqqitac Absolute0.0 E9/LNormal 0.0-0.2FOhioHealth Southeastern Medical CenterComment on above:Performed By: #### [id number] #### [facility] [address] [place] [address]Xhpdxlkzw/100 WBC (Bld)0.4 %Normal0.0-2.0[facility]view HealthComment on above:Performed By: #### [id number] #### [facility] [address] [place] [address]Elc Absolute0.0 E9/LNormal0.0-0.5FOhioHealth Southeastern Medical Center Comment on above:Performed By: #### [id number] #### [facility] [address] [place] [address]Wxykmieolsm/100 WBC (Bld)0.7 %Normal0.0-8.0[facility] HealthComment on above:Performed By: #### [id number] #### [facility] [address] [place] [address]Mlzoprnkegb distribution width (RBC) [Ratio]12.6 %Normal 10.9-14.2FOhioHealth Southeastern Medical CenterComment on above:Performed By: #### [id number] #### [facility] [address], [place] [address]Jhjrchgosr (Bld) [Volume fraction]41.3 %Bmzwzk88.0-46.0[facility] HealthComment on above:Performed By: #### [id number] #### [facility] [address], [place] [address]Rlwzoocihm (Bld) [Mass/Vol]14.6 g/gWNfvcgx10.0-16.0[facility] HealthComment on above:Performed By: #### [id number] #### [facility] [address] [place] [address]Wjikc Absolute1.6 E9/LNormal1.0-4.0[facility] Comment on above:Performed By: #### [id number] #### [facility] [address] [place] [address]Rbbfblxcagh/100 WBC (Bld)25.1 %Ftntbg00.0-50.0[facility] HealthComment on above:Performed By: #### [id number] #### [facility] [address] [place] [address]RCO (RBC) [Entitic mass]32.3 mcMihshy69.0-34.0[facility] HealthComment on above:Performed By: #### [id number] #### [facility] [address] [place] [address]TIGH (RBC) [Mass/Vol]35.3 g/sGMntkdw31.4-36.0[facility] HealthComment on above:Performed By: #### [id number] #### [facility] [address] [place] [address]ZYX (RBC) [Entitic vol]91.4 yKWqjoyb85.0-100.0[facility] HealthComment on above:Performed By: #### [id number] #### [facility] [address] [place] [address]Igxk Absolute0.4 E9/LNormal0.2-1.0[facility] Comment on above:Performed By: #### [id number] #### [facility] [address] [place] [address]Isydntvpb/100 WBC (Bld)5.4 %Normal4.0-14.0[facility] HealthComment on above:Performed By: #### [id number] #### [facility] [address], [place] [address]Jifpia Absolute4.4 E9/LNormal2.0-7.5FOhioHealth Southeastern Medical Center Comment on above:Performed By: #### [id number] #### [facility] [address], [place] [address]Fqczfo Auto68.4 %Hzppty38.0-75.0[facility] Comment on above:Performed By: #### [id number] #### [facility] [address] [place] [address]Xwjffked009.0 E9/AJjyfkj384.0-500.0[facility] Comment on above:Performed By: #### [id number] #### [facility] [address] [place] [address]Mrltxtpb mean volume (Bld) [Entitic vol]7.7 fLNormal6.4-10.8 [facility] HealthComment on above:Performed By: #### [id number] #### [facility] [address] [place] [address]WBB1.5 E12/LNormal4.3-5.9[facility]view HealthComment on above:Performed By: #### [id number] #### [facility] [address] [place] [address]XGD4.5 E9/LNormal4.0-11.0[facility] HealthComment on above:Performed By: #### [id number] #### [facility] [address] [place] [address]UA & PTTon 91-97-8726GQA Coag (PPP) [Relative time]0.97 {INR} Invalid Interpretation CodeParkview HealthComment on above:Result Comment: INR results are specifically intended to assess patients stabilized on long-term Anticoagulation therapy suggested INR???s ???Less Intensive Anticoagulation??? 2.0 ??? 3.0 Conventional Range 3.0 ??? 4.5Performed By: #### [id number] #### [facility] [address], [place] [address]CY86.9 second(s)Normal9.4-12.5FOhioHealth Southeastern Medical Center Comment on above:Result Comment: 15 [...] the same coagulation reagent and instrumentation as [facility]. Currently there are no coagulation studies available worldwide for children to 14 days, andno normal ranges.Performed By: #### [id number] #### [facility] [address], [place] [address]CBX95.9 second(s)Inwvzt13.1-36.5FOhioHealth Southeastern Medical Center Comment on above:Result Comment: Parameter 15 days - 4 weeks 1 - 5 months 6 - 11 months 1 - 5 years 6 - 10 years 11 - 17 years PTT Mean: 35.4 (27.6-45.6) Mean: 33.5 (24.8-40.7) Mean: 32.4 (25.1-40.7) Mean: 31.6 (24.0-39.2) Mean: 31.6 (26.9-38.7) Mean: 31.0 (24.6-38.4) Pediatric Reference ranges were obtained from a study by matrine Ahumada prepared from 1437 samples obtained at 7 different centers using the same coagulation reagent and instrumentation as [facility]. Currently there are no coagulation studies available worldwide for children to 14 days, andno normal ranges. Heparin therapeutic range (represented by Anti-Factor Xa activity of 0.2 - 0.4 U/mL) corresponds to PTT of 56.6 - 109.0 sec.Performed By: #### [id number] #### [facility] [address] [place] [address]SQ with Cult Rflxon 93-16-1666Hqylq (U)Light-YellowNormalYellow Parkview HealthComment on above:Result Comment: Microscopic readings are only performed on those samples that meet specific criteria set forth by [facility].Performed By: #### [id number] #### [facility] [address] [place] [id number] (U) [Mass/Vol]NegativeNormalNegativeParkview HealthComment on above:Performed By: #### [id number] #### [facility] [address] [place], [place] [address]Ketones Ql (U)NegativeNormalNegativeParkview Health Comment on above:Performed By: #### [id number] #### [facility] [address] [place] [address]YM BloodNegativeNormalNegTogus VA Medical Center Comment on above:Performed By: #### [id number] #### [facility] [address] [place] [address]SU ClarityClearNormalClearParkview HealthComment on above:Performed By: #### [id number] #### [facility] [address], [place] [address]PL Leuk EstNegativeNormalNegTogus VA Medical Center Comment on above:Performed By: #### [id number] #### [facility] [address] [place] [address]WD NitriteNegativeNormalNegTogus VA Medical Center Comment on above:Performed By: #### [id number] #### [facility] [address] [place] [address]UA pH7.0Invalid Interpretation Code5.0-9.0[facility] HealthComment on above:Performed By: #### [id number] #### [facility] [address], [place] [address]FQ ProteinNegativeNormalNegativeParkview Health Comment on above:Performed By: #### [id number] #### [facility] [address], [place] [address]VU Spec Grav1.011Invalid Interpretation Code1.005-1.030[facility] HealthComment on above:Performed By: #### [id number] #### [facility] [address], [place] [address]GY UrobilinogenNegativeNormalNegativeParkview HealthComment on above:Performed By: #### [id number] #### [facility] [address], [place] [address]Tzptralopafu (U) [Mass/Vol]NegativeNormalNegativeParkview HealthComment on above:Performed By: #### [id number] #### [facility] [address], [place] [address]EV Spec DescClean CatchNormalParkview HealthComment on above:Performed By: #### [id number] #### [facility] [address], [place] [address]lEGZwt 16-99-8641oPKS622 mL/min/1.73 q8Esqrcx>=59Parkview HealthComment on above:Performed By: #### [id number] #### [facility] [address], [place] [address]Kxhqelzheh - Chemistry and Chemistry - challengeOrdered By: Shasha Isaac on 01-42-8021Wbrrynvgi Ql (U)[facility] HospitalGlucose (U) [Mass/Vol][facility] HospitalKetones Ql (U)[facility] HospitalpH (U)7.0 [pH][facility] Jacksonpecific gravity (U) [Rel density]1.020Det[facility]iler [facility] HospitalLaboratory - Specimen informationOrdered By: Shasha Isaac on 05-05-2025 Appearance (U)clearDetwiler Memorial HospitalColor (U)yellowDetwiler Memorial HospitalLaboratory - UrinalysisOrdered By: Shasha Isaac on 82-54-1970Ixhdkyzlb esterase Test strip Ql (U)NegativeDetwiler Memorial HospitalNitrite Ql (U)NegativeDetwiler Memorial HospitalProtein Ql (U) NegativeDetwiler Memorial HospitalNo Panel InformationOrdered By: Shasha Isaac on 58-79-4667Psbcm Occult BloodNegativeDetwiler Memorial Hospital Urine Urobilinogen0.2EU/dLDetwiler Memorial HospitalAmbulatory Visit Summaryon 29-35-3984Sivwtwwuyv Visit SummaryAmbulatory Visit Summary JENNIFER ZAMORA :1970 [...] Complex oral tablet) omega-3 polyunsaturated fatty acids (Whiteoak-3 Fish Oil 1000 mg oral capsule) Procedures [...] or concerns Unchanged omega-3 polyunsaturated fatty acids (Whiteoak-3 Fish Oil 1000 mg oral capsule) By [...] the mass. Follow t (more content not included)...[facility] CenterMRI ABDOMEN W WO CONTRAST MRCPon [id number] ABDOMEN W WO CONTRAST MRCPADDENDUM: This exam [...] Guaman IV, MD 12/11/24 Edited Result - FINALNormalMerMilitary Health SystemBasic Metab w/rfx MGon 76-23-7137Kgxtx gap [Moles/Vol]11 mmol/LNormal9-16MerMilitary Health SystemComment on above:Performed By: #### MELLISA, CDP #### [facility] [address] [facility] [place] [address] Hides Inspector: STEPHANI Walleralcium [Mass/Vol]9.5 mg/dLNormal8.6-10.4[facility] HospitalComment on above:Performed By: #### MELINAX, CDP #### [facility] [address] [facility]. [place], [place] [id number] Hides Inspector: STEPHANI Wallerhloride [Moles/Vol]103 mmol/LRfsnsg58-980QbcyeToledo HospitalComment on above:Performed By: #### BMPX, CDP #### [facility] [facility] [place] [address] Hides Inspector: STEPHANI WallerO2 [Moles/Vol]26 mmol/CZwhsxf83-86LkxrwToledo HospitalComment on above:Performed By: #### BMPX, CDP #### [facility] [address] [place] [address]. [place] [address] Hides Inspector: STEPHANI Wallerreatinine [Mass/Vol]0.9 mg/dLNormal0.50-0.90 [facility] HospitalComment on above:Performed By: #### BMPX, CDP #### [facility] [address] [place] [address] Hides Inspector: Velasquez Sears MDGFR/1.73 sq M.predicted among non-blacks MDRD (S/P/Bld) [Vol rate/Area]80 mL/min/{1.73_m2}Normal>60[facility] Comment on above:Result Comment: These results [...] tubular secretion.Performed By: #### BMPX, CDP #### [facility] [facility] [place] [address] Hides Inspector: Velasquez Sears MDGlucose [Mass/Vol]150 mg/cHZlzq03-77MxyekWalla Walla General HospitalComment on above:Performed By: #### BMPX, CDP #### [facility] [address] [place] [address]. [place], [place] [id number] Hides Inspector: JACKSON Wallerotassium [Moles/Vol]3.8 mmol/LNormal3.7-5.3 [facility] HospitalComhenry [facility] on above:Performed By: #### BMPX, CDP #### [facility] [address] [place], [place] [id number] Hides Inspector: LEANDRO Wallerodium [Moles/Vol]140 mmol/FLuzkgu926-071QppkcToledo HospitalComhenry ford west [facility] hospital on above:Performed By: #### BMPX, CDP #### [facility] [address] [place] [address] Hides Inspector: Velasquez Sears MDUrea nitrogen [Mass/Vol]13 mg/dLNormal6-20[facility] HospitalComhenry ford [facility] on above:Performed By: #### BMPX, CDP #### [facility] [address] [place] [address] Hides Inspector: Velasquez Sears MDBasi Metabolic Panel w/ Reflex to MGon 86-74-0965Hioin gap [Moles/Vol]11 mmol/L9 - 16 mmol/LBon [facility] Calcium [Mass/Vol]9.5 mg/dL8.6 - 10.4 mg/dLBon Memorial HospitalChloride [Moles/Vol]103 mmol/L98 - 107 mmol/LBon Memorial HospitalCO2 [Moles/Vol]26 mmol/L20 - 31 mmol/LBon Memorial HospitalCreatinine [Mass/Vol]0.9 mg/dL0.50 - 0.90 mg/dLBon Memorial HospitalEst, Glom Filt Rate80- PINFBon Memorial HospitalComment on above: These results are not [...] that affects renal tubular secretion. Glucose [Mass/Vol]150 mg/bCOwpd35 - 99 mg/dLBon [facility] Hospital Interpretation and review of laboratory resultsAbnormRappahannock General Hospital Potassium [Moles/Vol]3.8 mmol/L3.7 - 5.3 mmol/LBon Memorial HospitalSodium [Moles/Vol]140 mmol/L136 - 145 mmol/LBon Memorial HospitalUrea nitrogen [Mass/Vol]13 mg/dL6 - 20 mg/dLBon [facility] CBC with Auto Differentialon 88-65-0002Ishlftmqj (Bld) [#/Vol][facility] HospitalBasophils/100 WBC (Bld)0 %0 - 2 %[facility] HospitalEosinophils (Bld) [#/Vol][facility] HospitalEosinophils/100 WBC (Bld)0 %Low1 - 4 %[facility] HospitalErythrocyte distribution width (RBC) [Ratio]11.4 %Low11.8 - 14.4 %[facility] HospitalHematocrit (Bld) [Volume fraction]41.0 %36.3 - 47.1 %[facility] HospitalHemoglobin (Bld) [Mass/Vol]14.6 g/dL11.9 - 15.1 g/dLBon Memorial HospitalImmature granulocytes (Bld) [#/Vol]0.09 10*3/uLBon [facility] Hospitalmapomerene hospital granulocytes/100 WBC (Bld)1 %Gcyv8Krm Memorial HospitalInterpretation and review of laboratory resultsAbnormalSmyth County Community HospitalLymphocytes/100 WBC (Bld)5 %Low24 - 43 %[facility] Lymphocytes/100 WBC (Bld)0.71 %LowCentra Southside Community HospitalH (RBC) [Entitic mass]32.1 pg25.2 - 33.5 pgCentra Southside Community HospitalHC (RBC) [Mass/Vol]35.6 g/dL High28.4 - 34.8 g/dLBon Memorial HospitalMCV (RBC) [Entitic vol]90.1 fL82.6 - 102.9 fLBon Memorial HospitalMonocytes/100 WBC (Bld)4 %3 - 12 %Bon SecMetroHealth Main Campus Medical CenterMonocytes/100 WBC (Bld)0.63 %Bon Memorial HospitalNeutrophils/100 WBC (Bld)91 %High36 - 65 %Bon Memorial HospitalNucleated RBC/100 WBC (Bld) [Ratio]0.0 %0.0 per 100 WBCBon Memorial HospitalPlatelet mean volume (Bld) [Entitic vol]9.1 fL8.1 - 13.5 fLSmyth County Community HospitalPlatelets (Bld) [#/Vol] 326 10*3/uLBon Memorial HospitalRBC (Bld) [#/Vol]4.55 10*6/uL3.95 - 5.11 m/uL Bon Memorial HospitalSegmented neutrophils/100 WBC (Bld)14.32 %HighBon Memorial HospitalWBC other (Bld) [#/Vol]15.8HighBon SecMetroHealth Main Campus Medical CenterBon Memorial HospitalCBC with Diffon 74-69-8249Bzp. Basophil<0.30Clrfsf0.00-0.20 [facility] HospitalComment on above:Performed By: #### BMPX, CDP #### [facility] [address] [place] [address] Hides Inspector: Shamar Waller. Eosinophil<0.35Xvwxeb1.00-0.44T[facility]edo HospitalComment on above:Performed By: #### BMPX, CDP #### [facility] [address] [place] [address] Hides Inspector: Shamar Waller.Imm.Granulocyte0.09 k/uLNormal0.00-0.30 [facility] HospitalComment on above:Performed By: #### BMPX, CDP #### [facility] [address] [place] [address] Hides Inspector: Shamar Waller.Neutrophil (Seg)14.32 k/uLHigh1.50-8.10 [facility] HospitalComment on above:Performed By: #### BMPX, CDP #### [facility] [address] [place] [address] Hides Inspector: Velasquez Sears MDBasophils/100 WBC (Bld)0 %Normal0-2Mer[facility]riners Hospital For ChildrenComment on above:Performed By: #### BMPX, CDP #### [facility] [address] [place] [address] Hides Inspector: ALEXIA Wallerosinophils/100 WBC (Bld)0 %Low1-4Mer[facility]riners Hospital For ChildrenComment on above:Performed By: #### BMPX, CDP #### [facility] [address] [place] [address] Hides Inspector: Velasquez Sears MDErythrocyte distribution width (RBC) [Ratio] 11.4 %Low11.8-14.4Mer[facility]riners Hospital For ChildrenComment on above:Performed By: #### BMPX, CDP #### [facility] [address] [place] [address] Hides Inspector: Velasquez Sears MDHematocrit (Bld) [Volume fraction]41.0 %Normal 36.3-47.1Mer[facility]riners Hospital For ChildrenComment on above:Performed By: #### BMPX, CDP #### [facility] [address] [place] [address] Hides Inspector: Velasquez Sears MDHemoglobin (Bld) [Mass/Vol]14.6 g/dLNormal 11.9-15.1Mer[facility]riners Hospital For ChildrenComment on above:Performed By: #### BMPX, CDP #### [facility] [address] [facility] [place] [address] Hides Inspector: Robyn Waller granulocytes/100 WBC (Bld)1 %High0 [facility] HospitalComhenry [facility] on above:Performed By: #### BMPX, CDP #### [facility] [address] [place] [address] Hides Inspector: Spencer Wallermphocytes (Bld) [#/Vol]0.71 10*3/uLLow 1.10-3.70[facility] HospitalComhenry [facility] on above:Performed By: #### BMPX, CDP #### [facility] [address] [place] [address] Hides Inspector: Spencer Wallermphocytes/100 WBC (Bld)5 %Urh24-35CxfetToledo HospitalComhenry ford [facility] hospital on above:Performed By: #### BMPX, CDP #### [facility] [address] [place] [address] Hides Inspector: KELLIE Waller (RBC) [Entitic mass]32.1 hgGppszi12.2-33.5 [facility] HospitalComhen[facility] on above:Performed By: #### BMPX, CDP #### [facility] [address] [place] [address] Hides Inspector: KELLIE WallerC (RBC) [Mass/Vol]35.6 g/eDAedg11.4-34.8 [facility] HospitalComhen[facility] on above:Performed By: #### BMPX, CDP #### [facility] [address] [place] [address] Hides Inspector: NELL WallerCV (RBC) [Entitic vol]90.1 yDErptbj64.6-102.9 [facility] HospitalComhenry [facility] on above:Performed By: #### BMPX, CDP #### [facility] [address] [facility] [place] [address] Hides Inspector: NELL Walleronocytes (Bld) [#/Vol]0.63 10*3/uLNormal 0.10-1.20MerMilitary Health SystemComhenry [facility] on above:Performed By: #### BMPX, CDP #### [facility] [address] [place] [address] Hides Inspector: NELL Walleronocytes/100 WBC (Bld)4 %Normal3-12[facility] on above:Performed By: #### BMPX, CDP #### [facility] [address] [place] [address] Hides Inspector: Yasemin Wallerophil (Seg)91 %Qwwq44-04FonmqMilitary Health SystemComhenry [facility] on above:Performed By: #### BMPX, CDP #### [facility] [address] [place] [address] Hides Inspector: Velasquez Sears MDNRBC Automated0.0 per 100 WBCNormal0.0[facility] on above:Performed By: #### BMPX, CDP #### [facility] [address] [place] [address] Hides Inspector: JACKSON Wallerlatelet mean volume (Bld) [Entitic vol]9.1 fL Normal8.1-13.5[facility] on above:Performed By: #### BMPX, CDP #### [facility] [address] [place] [address] Hides Inspector: Jose Wallertelets (Bld) [#/Vol]326 10*3/bJQuvvur474-536 [facility] HospitalComment on above:Performed By: #### BMPX, CDP #### [facility] [address] [place] [address] Hides Inspector: МАРИНА WallerBC (Bld) [#/Vol]4.55 10*6/uLNormal3.95-5.11 [facility] HospitalComment on above:Performed By: #### BMPX, CDP #### [facility] [address] [facility] [place] [address] Hides Inspector: YADIEL WallerBC (Bld) [#/Vol]15.8 10*3/uLHigh3.5-11.3MWalla Walla General HospitalComment on above:Performed By: #### BMPX, CDP #### [facility] [address] [place] [address] Hides Inspector: JESUS MANUEL Waller Abdomen WO and W contrast Jabier . Cholelithiasis with no evidence of acute cholecystitis. 2. Mild biliary dilatation with no evidence of choledocholithiasis. 3. Normal MRI appearance of the pancreas. [facility] RIS CONSOLIDATEDEXAMINATION: MRI OF THE ABDOMEN WITH [...] mucosal thickening or pericholecystic fluid. Other: None [facility] Amna Morgan IV, MD - 12/02/2024 EXAMINATION: [...] 3. Normal MRI appearance of the pancreas. [facility] observation (narrative)[facility] Abdomen WO and W contrast IVOrdered By: Amna Guaman on 12-02-2024 [facility] Work Phone: Surgical Pathology Reporton [id number] Pathology Report(NOTE) Path Number: [id number] -- Diagnosis -- Gallbladder: -Cholelithiasis and chronic [...] Microscopic Description Microscopic examination performed. Processing Lab: [address] [address] Interpretation Performed at [address] [address] SURGICAL PATHOLOGY CONSULTATION Patient Name: JENNIFER ZAMORA Med Rec: [id number] [facility] [employer] [facility] ANATOMIC PATHOLOGY [address] [place] [address]. [place], [place] [address] NoAvita Health System Galion HospitalBasi Metabolic Panelon [id number] gap [Moles/Vol]8 mmol/LLow9 - 16 mmol/LBon [employer] Calcium [Mass/Vol]9.2 mg/dL8.6 - 10.4 mg/dLBon SecForsythe HealthChloride [Moles/Vol]106 mmol/L98 - 107 mmol/LBon SecBASH GamingCO2 [Moles/Vol]26 mmol/L20 - 31 mmol/LBon SecBASH GamingCreatinine [Mass/Vol]0.7 mg/dL0.50 - 0.90 mg/dLBon SecForsythe HealthEst, Glom Filt Rate- PINFBon SecForsythe [facility] Methodist HospitalComment on above: These results are not [...] Mercy HealthEst, Glom Filt Rate- PINFBon Secours MyWobiley HealthComment on above: These results are not [...] HealthUrea nitrogen [Mass/Vol]11 mg/dL6 - 20 mg/dLBon Memorial HospitalBon Memorial HospitalBasic Metabolic Profon 61-08-2682Hsdlk gap [Moles/Vol]8 mmol/LLow9-16[facility] Comment on above:Performed By: #### CDP, BMP, LIVP #### [facility] [address] [place] [address] Hides Inspector: STEPHANI Walleralcium [Mass/Vol]9.2 mg/dLNormal8.6-10.4T[facility] HospitalComment on above:Performed By: #### CDP, BMP, LIVP #### [facility] [address] [place] [address] Hides Inspector: STEPHANI Wallerhloride [Moles/Vol]106 mmol/SRczaai05-799NqjotToledo HospitalComment on above:Performed By: #### CDP, BMP, LIVP #### [facility] [place] [address] Hides Inspector: STEPHANI WallerO2 [Moles/Vol]26 mmol/SHhhhxe65-34OmrghToledo HospitalComment on above:Performed By: #### CDP, BMP, LIVP #### [facility] [address] [place] [address] Hides Inspector: STEPHANI Wallerreatinine [Mass/Vol]0.7 mg/dLNormal0.50-0.90 [facility] HospitalComment on above:Performed By: #### CDP, BMP, LIVP #### [facility] [place] [address] Hides Inspector: Velasquez Sears MDGFR/1.73 sq M.predicted among non-blacks MDRD (S/P/Bld) [Vol rate/Area]mL/min/{1.73_m2}Normal>60MerMilitary Health SystemComment on above:Result Comment: These results are not [...] secretion.Performed By: #### CDP, BMP, LIVP #### [facility] [place] [address] Hides Inspector: Velasquez Sears MDGlucose [Mass/Vol]85 mg/uFOkdqcx45-48Iyemf Shriners Hospital For ChildrenComment on above:Performed By: #### CDP, BMP, LIVP #### [facility] [address] [place] [address]. [place] [address] Hides Inspector: JACKSON Wallerotassium [Moles/Vol]4.1 mmol/LNormal3.7-5.3 [facility] HospitalComhenry [facility] on above:Performed By: #### CDP, BMP, LIVP #### [facility] [address] [place] [address]. [place] [address] Hides Inspector: LEANDRO Wallerodium [Moles/Vol]140 mmol/SYxgthz350-786RvhcgMilitary Health SystemComment on above:Performed By: #### CDP, BMP, LIVP #### [facility] [address] [place] [address]. [place] [address] Hides Inspector: Velasquez Sears MDUrea nitrogen [Mass/Vol]9 mg/dLNormal6-20MerMilitary Health SystemComment on above:Performed By: #### CDP, BMP, LIVP #### [facility] [address] [place] [address] Hides Inspector: Velasquez Sears MDAnion gap [Moles/Vol]8 mmol/LLow9-16[facility] HospitalComhenry for[facility] on above:Performed By: #### BMP #### [facility] [address] [place] [address] Hides Inspector: Velasquez Sears MD #### TRIG #### [address] [address] Hides Inspector: STEPHANI Casasalcium [Mass/Vol]8.9 mg/dLNormal8.6-10.4[facility] HospitalComhenry for[facility] on above:Performed By: #### BMP #### [facility] [address] [place] [address] Hides Inspector: Velasquez Sears MD #### TRIG #### [address] [address] Hides Inspector: STEPHANI Casashloride [Moles/Vol]104 mmol/MXjvrta64-857YrztiToledo HospitalComhenry ford [facility] hospital on above:Performed By: #### BMP #### [facility] [address] [place] [address] Hides Inspector: Velasquez Sears MD #### TRIG #### [address] [address] Hides Inspector: Hilario Hdz MDCO2 [Moles/Vol]27 mmol/YKqyiuq91-28SqxhjToledo HospitalComhenry ford [facility] hospital on above:Performed By: #### BMP #### [facility] [address] [place] [address] Hides Inspector: Velasquez Sears MD #### TRIG #### [address] [address] Hides Inspector: STEPHANI Casasreatinine [Mass/Vol]0.7 mg/dLNormal0.50-0.90 [facility] HospitalComhenry [facility] on above:Performed By: #### BMP #### [facility] [address] [place] [address] Hides Inspector: Velasquez Sears MD #### TRIG #### [address] [address] Hides Inspector: Hilario Hdz MDGFR/1.73 sq M.predicted among non-blacks MDRD (S/P/Bld) [Vol rate/Area]mL/min/{1.73_m2}Normal>60[facility] HospitalComhenry for[facility] on above:Result Comment: These results are [...] renal tubular secretion.Performed By: #### BMP #### [facility] [address] [place] [address] Hides Inspector: Velasquez Sears MD #### TRIG #### [address] [address] Hides Inspector: Hilario Hdz MDGlucose [Mass/Vol]95 mg/mNKvdatm55-20Vvsoa [facility]rin[facility] Hospital For ChildrenComhenry ford [facility] on above:Performed By: #### BMP #### [facility] [address] [place] [address] Hides Inspector: Velasquez Sears MD #### TRIG #### [address] [address] Hides Inspector: JACKSON Casasotassium [Moles/Vol]3.7 mmol/LNormal3.7-5.3 [facility] HospitalComment on above:Performed By: #### BMP #### [facility] [address] [place] [address] Hides Inspector: Velasquez Sears MD #### TRIG #### [address] [place], [place] [id number] Hides Inspector: LEANDRO Casasodium [Moles/Vol]138 mmol/QNzwfyx037-815WocjxToledo HospitalComment on above:Performed By: #### BMP #### [facility] [address] [place] [address] Hides Inspector: Velasquez Sears MD #### TRIG #### [address] [id number] Hides Inspector: Hilario Hdz MDUrea nitrogen [Mass/Vol]11 mg/dLNormal6-20T[facility] HospitalComment on above:Performed By: #### BMP #### [facility] [address] [place] [address] Hides Inspector: Velasquez Sears MD #### TRIG #### [address] [id number] Hides Inspector: Hilario Hdz [facility] with Auto Differentialon [id number] (Bld) [#/Vol]0.03 10*3/uLBon Secours Mercy HealthBasophils/100 WBC (Bld)1 %0 - 2 %[facility] Mercy HealthEosinophils (Bld) [#/Vol]0.05 10*3/uLBon Secours Mercy HealthEosinophils/100 WBC (Bld)1 %1 - 4 %[facility] Erythrocyte distribution width (RBC) [Ratio]11.6 %Low11.8 - 14.4 %[facility] Mercy HealthHematocrit (Bld) [Volume fraction]40.5 %36.3 - 47.1 %Bon SecMetroHealth Main Campus Medical CenterHemoglobin (Bld) [Mass/Vol]13.9 g/dL11.9 - 15.1 g/dLBon SecMetroHealth Main Campus Medical CenterImmature granulocytes (Bld) [#/Vol]0.01 10*3/uLBon Secours Pike Community HospitalImmature granulocytes/100 WBC (Bld)0 %0[facility] Interpretation and review of laboratory resultsAbnormalBon [facility] Health Lymphocytes/100 WBC (Bld)25 %24 - 43 %Bon SecMetroHealth Main Campus Medical CenterLymphocytes/100 WBC (Bld)1.11 %Bon [facility] HospitalH (RBC) [Entitic mass]31.6 pg25.2 - 33.5 pgBon Dunlap Memorial HospitalHC (RBC) [Mass/Vol]34.3 g/dL28.4 - 34.8 g/dLBon SecKettering Health MiamisburgV (RBC) [Entitic vol]92.0 fL82.6 - 102.9 fLBon Memorial HospitalMonocytes/100 WBC (Bld)6 %3 - 12 %[facility] Monocytes/100 WBC (Bld)0.27 %[facility] HospitalNeutrophils/100 WBC (Bld)67 %High36 - 65 %Bon Memorial HospitalNucleated RBC/100 WBC (Bld) [Ratio]0.0 % 0.0 per 100 WBCBon Memorial HospitalPlatelet mean volume (Bld) [Entitic vol] 8.9 fL8.1 - 13.5 fLBon SecOur Lady of the Lake Ascension HealthPlatelets (Bld) [#/Vol]267 10*3/uLBon Secours [facility] HealthRBC (Bld) [#/Vol]4.40 10*6/uL3.95 - 5.11 m/uLBon Memorial HospitalSegmented neutrophils/100 WBC (Bld)3.03 %Bon SecMetroHealth Main Campus Medical CenterWBC other (Bld) [#/Vol]4.5[facility] SecMetroHealth Main Campus Medical CenterCBC with Diffon [id number]. Basophil0.03 k/uLNormal0.00-0.20[facility] Comment on above:Performed By: #### CDP, BMP, LIVP #### [facility] [address] [place] [address]. [place] [address] Hides Inspector: Shamar Waller.Imm.Granulocyte0.01 k/uLNormal0.00-0.30 [facility] HospitalComment on above:Performed By: #### CDP, BMP, LIVP #### [facility] [address] [place] [address]. [place] [address] Hides Inspector: Shamar Waller.Neutrophil (Seg)3.03 k/uLNormal1.50-8.10 [facility] HospitalComment on above:Performed By: #### CDP, BMP, LIVP #### [facility] [address] [place] [address] Hides Inspector: Velasquez Sears MDBasophils/100 WBC (Bld)1 %Normal0-2Mer[facility]riners Hospital For ChildrenComment on above:Performed By: #### CDP, BMP, LIVP #### [facility] [address] [place] [address] Hides Inspector: ALEXIA Wallerosinophils (Bld) [#/Vol]0.05 10*3/uLNormal 0.00-0.44MerMilitary Health SystemComment on above:Performed By: #### CDP, BMP, LIVP #### [facility] [address] [place] [address] Hides Inspector: ALEXIA Wallerosinophils/100 WBC (Bld)1 %Normal1-4MerMilitary Health SystemComment on above:Performed By: #### CDP, BMP, LIVP #### [facility] [address] [place] [address] Hides Inspector: Velasquez Sears MDErythrocyte distribution width (RBC) [Ratio] 11.6 %Low11.8-14.4[facility] HospitalComhenry for[facility] on above:Performed By: #### CDP, BMP, LIVP #### [facility] [address] [place] [address] Hides Inspector: Velasquez Sears MDHematocrit (Bld) [Volume fraction]40.5 %Normal 36.3-47.1MWalla Walla General HospitalComhenry ford [facility] on above:Performed By: #### CDP, BMP, LIVP #### [facility] [address] [place] [address] Hides Inspector: Velasquez Sears MDHemoglobin (Bld) [Mass/Vol]13.9 g/dLNormal 11.9-15.1MWalla Walla General HospitalComment on above:Performed By: #### CDP, BMP, LIVP #### [facility] [address] [place] [address] Hides Inspector: Velasquez Sears MDImmature granulocytes/100 WBC (Bld)0 %Normal0 [facility] HospitalComhenry for[facility] on above:Performed By: #### CDP, BMP, LIVP #### [facility] [address] [place] [address] Hides Inspector: Velasquez Sears MDLymphocytes (Bld) [#/Vol]1.11 10*3/uLNormal 1.10-3.70[facility] HospitalComhenry [facility] on above:Performed By: #### CDP, BMP, LIVP #### [facility] [address] [place] [address] Hides Inspector: Spencer Wallermphocytes/100 WBC (Bld)25 %Azzggu63-81Wvhnn [facility] Valley City HospitalComment on above:Performed By: #### CDP, BMP, LIVP #### [facility] [facility] [place] [address] Hides Inspector: NELL WallerCH (RBC) [Entitic mass]31.6 zyGnlbtn39.2-33.5 [facility] HospitalComment on above:Performed By: #### CDP, BMP, LIVP #### [facility] [address] [place] [address]. [place] [address] Hides Inspector: KELLIE WallerC (RBC) [Mass/Vol]34.3 g/qMIyelab12.4-34.8 [facility] HospitalComhenry [facility] on above:Performed By: #### CDP, BMP, LIVP #### [facility] [address] [place] [address]. [place] [address] Hides Inspector: NELL WallerCV (RBC) [Entitic vol]92.0 qWIwhcku97.6-102.9 [facility] HospitalComhenry [facility] on above:Performed By: #### CDP, BMP, LIVP #### [facility] [address] [place] [address]. [place] [address] Hides Inspector: NELL Walleronocytes (Bld) [#/Vol]0.27 10*3/uLNormal 0.10-1.20[facility] HospitalComhenry [facility] on above:Performed By: #### CDP, BMP, LIVP #### [facility] [address] [place] [address]. [place] [address] Hides Inspector: NELL Walleronocytes/100 WBC (Bld)6 %Normal3-12[facility] HospitalComment on above:Performed By: #### CDP, BMP, LIVP #### [facility] [address] [place] [address] [place] [address] Hides Inspector: Zulma Waller (Seg)67 %Wyyh27-07AkxkkOhio State Harding Hospital on above:Performed By: #### CDP, BMP, LIVP #### [facility] [address] [place] [address] Hides Inspector: FRANKY Waller Automated0.0 per 100 WBCNormal0.0[facility] on above:Performed By: #### CDP, BMP, LIVP #### [facility] [address] [place], [place] [address] [place] [address] Hides Inspector: Cesar Waller mean volume (Bld) [Entitic vol]8.9 fL Normal8.1-13.5[facility] on above:Performed By: #### CDP, BMP, LIVP #### [facility] [place] [address] Hides Inspector: Shavon Waller (Bld) [#/Vol]267 10*3/oOZrdiwc471-802 [facility] on above:Performed By: #### CDP, BMP, LIVP #### [facility] [place] [address] Hides Inspector: BENNY Waller (Bld) [#/Vol]4.40 10*6/uLNormal3.95-5.11 [facility] on above:Performed By: #### CDP, BMP, LIVP #### [facility] [address] [place] [address] Hides Inspector: LENIN Waller (Bld) [#/Vol]4.5 10*3/uLNormal3.5-11.3Mercy [facility]riners Hospital For ChildrenComment on above:Performed By: #### CDP, BMP, LIVP #### [facility] [address] [place] [address] Hides Inspector: Velasquez Sears MDHepatic Function Panelon [id number] [Mass/Vol]3.9 g/dL3.5 - 5.2 g/dLBon Memorial HospitalAlbumin/Globulin [Mass ratio]1.4 {ratio}1.0 - 2.5[facility] HealthALP [Catalytic activity/Vol] 150 U/LHigh35 - 104 U/LBon [facility] HealthALT [Catalytic activity/Vol]81 U/LHigh10 - 35 U/LBon [facility] HealthAST [Catalytic activity/Vol]57 U/LHigh 10 - 35 U/LBon [facility] HealthBilirubin [Mass/Vol]0.6 mg/dL0.00 - 1.20 mg/dLBon Memorial HospitalBilirubin.direct [Mass/Vol]0.2 mg/dL0.00 - 0.20 mg/dLBon Memorial HospitalBilirubin.indirect [Mass/Vol]0.4 mg/dLBon Memorial HospitalProtein [Mass/Vol]6.6 g/dL6.6 - 8.7 g/dLBon Memorial Hospital Liver Profileon [id number] [Mass/Vol]3.9 g/dLNormal3.5-5.2Mercy [facility]riners Hospital For ChildrenComment on above:Performed By: #### CDP, BMP, LIVP #### [facility] [address] [place] [address] Hides Inspector: Velasquez Sears MDAlbumin/Glob Ratio1.6Sicjfw2.0-2.5Mer[facility] Hospital For ChildrenComhenry [facility]d [facility] on above:Performed By: #### CDP, BMP, LIVP #### [facility] [address] [facility] [place] [address] Hides Inspector: Laurie Waller Jlkx347 U/EPaxe11-489DwzzmToledo HospitalComhenry ford [facility] on above:Performed By: #### CDP, BMP, LIVP #### [facility] [address] [place] [address] Hides Inspector: Velasquez Sears MDALT [Catalytic activity/Vol]81 U/BGcak11-53 [facility] HospitalComhenry for[facility] on above:Performed By: #### CDP, BMP, LIVP #### [facility] [address] [place] [address] Hides Inspector: Velasquez Sears MDAST [Catalytic activity/Vol]57 U/WUngk62-65 [facility] on above:Performed By: #### CDP, BMP, LIVP #### [facility] [address] [place], [place] [address] [place] [address] Hides Inspector: Velasquez Sears MDBilirubin [Mass/Vol]0.6 mg/dLNormal0.00-1.20 [facility] HospitalComhenry [facility] on above:Performed By: #### CDP, BMP, LIVP #### [facility] [address] [place] [address] Hides Inspector: Velasquez Sears MDBilirubin, Indirect0.4 mg/dLNormalOhio State Harding Hospital on above:Performed By: #### CDP, BMP, LIVP #### [facility] [address] [place] [address] Hides Inspector: Velasquez Sears MDBilirubin.indirect [Mass/Vol]0.2 mg/dLNormal 0.00-0.20[facility] HospitalComhenry for[facility] on above:Performed By: #### CDP, BMP, LIVP #### [facility] [address] [place] [address] Hides Inspector: JACKSON Wallerrotein [Mass/Vol]6.6 g/dLNormal6.6-8.7Mer[facility]rin[facility] Hospital For ChildrenComhenry for[facility] on above:Performed By: #### CDP, BMP, LIVP #### [facility] [address] [place] [address] Hides Inspector: Velasquez Sears MDNo Panel Informationon [id number] and review of laboratory resultsAbnormalBon [facility] Healthcare CenterTriglycerideon 69-34-2485Whcgzprtpagt [Mass/Vol]124 mg/dLNINF - 150 mg/dLBon Memorial HospitalComhenry [facility] on above: Triglyceride Guidelines: <150 Desirable 150-199 Borderline 200-499 High >499 Very high Based on AHA Guidelines for fasting triglyceride, July 2012. Bon Memorial HospitalTriglycerideson 86-99-3875Mhwipdchdfye [Mass/Vol]124 mg/dLNormal<150MerMilitary Health SystemComment on above:Result Comment: Triglyceride Guidelines: <150 Desirable 150-199 Borderline 200-499 High >499 Very high Based on AHA Guidelines for fasting triglyceride, July 2012.Performed By: #### BMP #### [facility] [address] [place] [address] Hides Inspector: Velasquez Sears MD #### TRIG #### [address] [address] Hides Inspector: Hilario Hdz MDBasophils Auto (Bld) [#/Vol]on 11-30-2024 Basophils (Bld) [#/Vol]Automated basophil count0.0-0.1FThe Jewish HospitalBasophils/100 WBC Auto (Bld)on 72-05-0459Iqksypszg/100 WBC (Bld)Automated basophil %0.2-2.0[facility] HospitalEosinophils/100 WBC Auto (Bld)on 44-20-5165Xrqiocxueft/100 WBC (Bld)Automated eosinophil %0.9-7.0 [facility] HospitalErythrocyte distribution width Auto (RBC) [Ratio]on 04-40-1109Johweowgpft distribution width (RBC) [Ratio]Erythrocyte distribution width [Ratio] by Automated count11.0-15.0[facility] HospitalEstimated glomerular filtration rate (GFR) non- Americanon 56-86-0881GSL/1.73 sq M.predicted among non-blacks MDRD (S/P/Bld) [Vol rate/Area]Estimated glomerular filtration rate (GFR) non- AmericanLow>=60 mL/min/1.73m 2FThe Jewish HospitalGlobulin Calc (S) [Mass/Vol]on 44-98-1086Mjllrzml (S) [Mass/Vol]Serum globulin measurement by calculation (mass/volume)[facility] HospitalHematocrit Auto (Bld) [Volume fraction]on 12-19-6585Asbedpjjwo (Bld) [Volume fraction]Hematocrit [Volume Fraction] of Blood by Automated count36.0-48.0[facility] Hemoglobin [Mass/volume] in Bloodon 74-47-0696Gctzasglos (Bld) [Mass/Vol] Hemoglobin [Mass/volume] in Blood12.0-16.0[facility] - Chemistry and Chemistry - challengeon 92-93-1495Oehmraz [Mass/Vol] 3.9 g/dL3.4-5.0[facility] HospitalALP [Catalytic activity/Vol]138 U/AKcld59-901LkjqxoghkDetwiler Memorial HospitalALT [Catalytic activity/Vol]25 U/L 14-59[facility] HospitalAmylase [Catalytic activity/Vol]106 U/L 25-115[facility] HospitalAST [Catalytic activity/Vol]24 U/L15-37 [facility] HospitalBilirubin [Mass/Vol]0.5 mg/dL0.2-1.0[facility] HospitalBilirubin.direct [Mass/Vol]0.1 mg/dL0.0-0.2FThe Jewish HospitalCalcium [Mass/Vol]9.4 mg/dL8.5-10.1FThe Jewish HospitalChloride [Moles/Vol]102 mmol/W10-735QqfxedxuzDetwiler Memorial HospitalCO2 [Moles/Vol]29.1 mmol/L21.0-32.0[facility] Creatinine [Mass/Vol]0.98 mg/dL0.55-1.02[facility] GFR/1.73 sq M.predicted MDRD (S/P/Bld) [Vol rate/Area]mL/min/{1.73_m2}>=60 mL/min/1.73m 2FThe Jewish HospitalGlucose [Mass/Vol]106 mg/aQ84-501 [facility] HospitalLipase [Catalytic activity/Vol]215.0 U/LHigh 16.0-77.0[facility] HospitalPotassium [Moles/Vol]3.5 mmol/L3.5-5.1 [facility] HospitalProtein [Mass/Vol]7.8 g/dL6.4-8.2FKettering Health Miamisburgodium [Moles/Vol]139 mmol/Z453-587EauvnezylDetwiler Memorial HospitalUrea nitrogen [Mass/Vol]14.0 mg/dL7.0-18.0[facility] HospitalUrea nitrogen/Creatinine [Mass ratio]14.3 mg/mgDetwiler Memorial HospitalLaboratory - Hematology and Cell countson 32-75-0885Shoviuey granulocytes/100 WBC (Bld)0.0 %0.0-0.5FThe Jewish Hospital Leukocytes [#/volume] corrected for nucleated erythrocytes in Blood by Automated counon 63-29-4406ZDO corrected for nucl RBC Auto (Bld) [#/Vol]Leukocytes [#/volume] corrected for nucleated erythrocytes in Blood by Automated coun 4.0-11.0[facility] HospitalLymphocytes Auto (Bld) [#/Vol]on 00-47-5020Gwwkzavprdq (Bld) [#/Vol]Lymphocytes [#/volume] in Blood by Automated count1.2-3.8[facility] HospitalLymphocytes/100 WBC Auto (Bld)on 36-80-6538Mwwcfshgott/100 WBC (Bld)Lymphocytes/100 leukocytes in Blood by Automated count20.5-60.0[facility] HospitalMCH Auto (RBC) [Entitic mass]on 29-34-3238QXO (RBC) [Entitic mass]MCH [Entitic mass] by Automated count 26.7-34.0[facility] HospitalMCHC Auto (RBC) [Mass/Vol]on 46-55-1273CZVT (RBC) [Mass/Vol]MCHC [Mass/volume] by Automated count29.9-35.2 [facility] HospitalMCV Auto (RBC) [Entitic vol]on 99-20-5014PQC (RBC) [Entitic vol]MCV [Entitic volume] by Automated count81.0-99.0[facility] HospitalMonocytes Auto (Bld) [#/Vol]on 69-91-1179Dwcsvrder (Bld) [#/Vol]Automated blood monocyte count0.3-0.8[facility] Monocytes/100 WBC Auto (Bld)on 93-78-5773Gbvkaxpox/100 WBC (Bld)Automated monocyte %1.7-12.0[facility] HospitalNeutrophils Auto (Bld) [#/Vol]on 67-48-5600Zdubjxedime (Bld) [#/Vol]Neutrophils [#/volume] in Blood by Automated count1.4-6.5FThe Jewish HospitalNeutrophils/100 WBC Auto (Bld)on 00-34-9648Tfhjfuccsxh/100 WBC (Bld)Automated neutrophil %43.0-75.0 [facility] HospitalNo Panel Informationon 72-59-8386Iclrmhmupyu # (Auto)0.1 10 3/uL0.0-0.7FThe Jewish HospitalImmature Granulocyte # (Auto)0.00 10 3/uL0.00-0.03[facility] HospitalPlatelet mean volume Auto (Bld) [Entitic vol]on 93-19-7097Bmancogu mean volume (Bld) [Entitic vol] Platelet mean volume [Entitic volume] in Blood by Automated countLow9.5-13.5 [facility] HospitalPlatelets Auto (Bld) [#/Vol]on 11-30-2024 Platelets (Bld) [#/Vol]Platelets [#/volume] in Blood by Automated halal703-301 [facility] HospitalRBC Auto (Bld) [#/Vol]on 81-37-2542GAD (Bld) [#/Vol]Erythrocytes [#/volume] in Blood by Automated count4.20-5.40[facility] – Jacksonerum or plasma albumin/globulin mass ratioon 11-30-2024 Albumin/Globulin [Mass ratio]Serum or plasma albumin/globulin mass ratio [facility] – Jacksonerum or plasma anion gap determinationon 95-04-3005Pbfne gap [Moles/Vol]Serum or plasma anion gap determinationDetwiler Memorial HospitalBasophils Auto (Bld) [#/Vol]on 72-25-3169Jvmwksbhu (Bld) [#/Vol]Automated basophil count0.0-0.1FThe Jewish Hospital Basophils/100 WBC Auto (Bld)on 90-06-3977Eewmocupw/100 WBC (Bld)Automated basophil %0.2-2.0[facility] HospitalCholesterol in LDL Calc [Mass/Vol]on 12-08-8659Udayvjsulxr in LDL [Mass/Vol]Cholesterol in LDL [Mass/volume] in Serum or Plasma by calculationDetwiler Memorial Hospital Comment on above:<100 mg/dl VCLZBHL795-755 mg/dl NEAR OR ABOVE PMJGSLU972-301 mg/dl BORDERLINE CTMF127-577 mg/dl HIGH>190 mg/dl VERY HIGHCholesterol in VLDL Calc [Mass/Vol]on 08-14-6602Ktwtcrnwkrh in VLDL [Mass/Vol]Cholesterol in VLDL [Mass/volume] in Serum or Plasma by calculationDetwiler Memorial Hospital Eosinophils/100 WBC Auto (Bld)on 66-79-1920Ukvhtciwggq/100 WBC (Bld)Automated eosinophil %0.9-7.0[facility] HospitalErythrocyte distribution width Auto (RBC) [Ratio]on 43-42-2033Bqjizgntism distribution width (RBC) [Ratio]Erythrocyte distribution width [Ratio] by Automated count11.0-15.0 [facility] HospitalEstimated glomerular filtration rate (GFR) non- Americanon 00-62-4400BCO/1.73 sq M.predicted among non-blacks MDRD (S/P/Bld) [Vol rate/Area]Estimated glomerular filtration rate (GFR) non->=60 mL/min/1.73m 2FThe Jewish HospitalGlobulin Calc (S) [Mass/Vol]on 44-33-8018Fivzurye (S) [Mass/Vol]Serum globulin measurement by calculation (mass/volume)[facility] HospitalHematocrit Auto (Bld) [Volume fraction]on 29-63-4630Nxsdvndzpg (Bld) [Volume fraction]Hematocrit [Volume Fraction] of Blood by Automated count36.0-48.0[facility] HospitalHemoglobin [Mass/volume] in Bloodon 27-10-2678Bkfofpdgfe (Bld) [Mass/Vol] Hemoglobin [Mass/volume] in Blood12.0-16.0[facility] - Chemistry and Chemistry - challengeon 39-36-1491Viwtjmm [Mass/Vol] 3.6 g/dL3.4-5.0[facility] HospitalALP [Catalytic activity/Vol]104 U/Y20-314LccntrldyDetwiler Memorial HospitalALT [Catalytic activity/Vol]24 U/L 14-59[facility] HospitalAST [Catalytic activity/Vol]18 U/L15-37 [facility] HospitalBilirubin [Mass/Vol]0.3 mg/dL0.2-1.0[facility] HospitalCalcium [Mass/Vol]8.8 mg/dL8.5-10.1FThe Jewish HospitalChloride [Moles/Vol]106 mmol/D15-198CgxnrkohfDetwiler Memorial HospitalCholesterol [Mass/Vol]220 mg/dLHigh<=200[facility] Cholesterol in HDL [Mass/Vol]57 mg/jE19-87WjzkzqmfpDetwiler Memorial Hospital Comment on above:> or =60 mg/dl - LOW CARDIOVASCULAR RISK<40 mg/dl - HIGH CARDIOVASCULAR RISKCO2 [Moles/Vol]29.7 mmol/L21.0-32.0[facility] HospitalCreatinine [Mass/Vol]0.75 mg/dL0.55-1.02[facility] GFR/1.73 sq M.predicted MDRD (S/P/Bld) [Vol rate/Area]mL/min/{1.73_m2}>=60 mL/min/1.73m 2FThe Jewish HospitalGlucose [Mass/Vol]87 mg/tQ37-300 [facility] HospitalPotassium [Moles/Vol]3.8 mmol/L3.5-5.1FThe Jewish HospitalProtein [Mass/Vol]7.3 g/dL6.4-8.2FKettering Health Miamisburgodium [Moles/Vol]144 mmol/O830-274SwjzbznvoDetwiler Memorial HospitalTriglyceride [Mass/Vol]100 mg/dL<=150[facility] HospitalTS Qn0.574 m[IU]/L0.358-3.740[facility] HospitalUrea nitrogen [Mass/Vol]12.0 mg/dL7.0-18.0[facility] HospitalUrea nitrogen/Creatinine [Mass ratio]16.0 mg/mgDetwiler Memorial Hospital Laboratory - Hematology and Cell countson 1969Bwxmtmsb granulocytes/100 WBC (Bld)0.3 %0.0-0.5FThe Jewish HospitalLeukocytes [#/volume] corrected for nucleated erythrocytes in Blood by Automated counon 59-81-0664ZMU corrected for nucl RBC Auto (Bld) [#/Vol]Leukocytes [#/volume] corrected for nucleated erythrocytes in Blood by Automated counLow4.0-11.0[facility] HospitalLymphocytes Auto (Bld) [#/Vol]on 76-08-9723Azszxdtdgti (Bld) [#/Vol]Lymphocytes [#/volume] in Blood by Automated countLow1.2-3.8[facility] HospitalLymphocytes/100 WBC Auto (Bld)on 10-14-2024 Lymphocytes/100 WBC (Bld)Lymphocytes/100 leukocytes in Blood by Automated count 20.5-60.0[facility] HospitalMCH Auto (RBC) [Entitic mass]on 18-49-6556KBF (RBC) [Entitic mass]MCH [Entitic mass] by Automated count26.7-34.0 [facility] HospitalMCHC Auto (RBC) [Mass/Vol]on 05-11-8807DQNJ (RBC) [Mass/Vol]MCHC [Mass/volume] by Automated count29.9-35.2FThe Jewish HospitalMCV Auto (RBC) [Entitic vol]on 44-15-7627QAD (RBC) [Entitic vol] MCV [Entitic volume] by Automated count81.0-99.0[facility] HospitalMonocytes Auto (Bld) [#/Vol]on 78-63-0944Dukgacics (Bld) [#/Vol]Automated blood monocyte countLow0.3-0.8[facility] HospitalMonocytes/100 WBC Auto (Bld)on 96-14-9513Uoptodciw/100 WBC (Bld)Automated monocyte %1.7-12.0 [facility] HospitalNeutrophils Auto (Bld) [#/Vol]on 10-14-2024 Neutrophils (Bld) [#/Vol]Neutrophils [#/volume] in Blood by Automated count 1.4-6.5FThe Jewish HospitalNeutrophils/100 WBC Auto (Bld)on 69-61-1583Gvwlgczcwwp/100 WBC (Bld)Automated neutrophil %43.0-75.0[facility] HospitalNo Panel Informationon 96-08-7542A-Dlhnecr67.2 ng/mL Abnormal1.1-4.4FThe Jewish HospitalComment on above:C-Peptide reference interval is for fasting patients.Performed at: [facility] [id number] Director: Rafita Thomas PhD, Phone: [phone] # (Auto)0.1 10 3/uL0.0-0.7FThe Jewish HospitalImmature Granulocyte # (Auto)0.01 10 3/uL0.00-0.03[facility] HospitalPlatelet mean volume Auto (Bld) [Entitic vol]on 92-49-5284Aazpucpb mean volume (Bld) [Entitic vol]Platelet mean volume [Entitic volume] in Blood by Automated countLow9.5-13.5FThe Jewish HospitalPlatelets Auto (Bld) [#/Vol]on 09-58-7398Ydxqrpqqe (Bld) [#/Vol]Platelets [#/volume] in Blood by Automated negbz727-653BeerdhqdpDetwiler Memorial HospitalRBC Auto (Bld) [#/Vol]on 35-23-8737TLJ (Bld) [#/Vol]Erythrocytes [#/volume] in Blood by Automated count 4.20-5.40[facility] – Jacksonerum or plasma albumin/globulin mass ratioon 39-60-1020Iasffcy/Globulin [Mass ratio]Serum or plasma albumin/globulin mass ratioHolzer Medical Center – Jacksonerum or plasma anion gap determinationon 60-84-3992Dfsgv gap [Moles/Vol]Serum or plasma anion gap determinationHolzer Medical Center – Jacksonerum or plasma glucose measurement 2 hours post 75 gm oral glucose (mass/volume)on 08-81-8860Afojxjm 2 Hr post 75 g glucose PO [Mass/Vol]Serum or plasma glucose measurement 2 hours post 75 gm oral glucose (mass/volume)[facility] HospitalComment on above:GLU FAST 87 (<95) Col: 10/14/24 0843 GLU 1HR 111 (<180) Col: 10/14/24 0947 GLU 2HR 81 (<155) Col: 10/14/24 1047Serum or plasma total cholesterol/high density lipoprotein (HDL) cholesterol mass hussain 10-14-2024 Cholesterol.total/Cholesterol in HDL [Mass ratio]Serum or plasma total cholesterol/high density lipoprotein (HDL) cholesterol mass ratDetwiler Memorial HospitalComment on above:3.3 - 4.4 LOW RISK4.4 - 7.1 AVERAGE RISK7.1 - 11.0 MODERATE RISK>11.0 HIGH RISKIGP,APTIMA HPV,AGE GDLNon 06-11-2024 AGE GDLN ACOG TESTINGNote.NOMS HealthcareComment on above:TESTS RESULT FLAG UNITS REF RANGE LAB Clinician Provided Cytology Information Source.............Vagina No. of containers..01 ThinPrep Vial Age Algo ACOG Nichole... FLAG LEGEND: L-Low Normal,H-High Normal,LL-Alert Low,HH-Alert High <-Panic Low,>-Panic High,A-Abnormal,AA-Critical Abnormal Performed at: 01 =[address] [address] Seble Lopez MD, HPV APTIMANegativeNegativeNOMS HealthcareComment on above:This nucleic acid amplification test detects fourteen high- risk HPV types (16,18,31,33,35,39,45,51,52,56,58,59,66,68) without differentiation. Performed at: =[address] [id number] Hides Inspector: Seble Lopez MD, Phone: [phone] Performed at: [address] [id number] Hides Inspector: Seble Lopez MD, Phone: [phone] IGP, APTIMA HPV, RFX 16/18,45Note.NOMS HealthcareComment on above:TESTS RESULT FLAG UNITS REF RANGE LAB DIAGNOSIS: 02 NEGATIVE FOR INTRAEPITHELIAL LESION OR MALIGNANCY. Specimen adequacy: 02 Satisfactory for evaluation. Performed by: [place], Driver Education Instructor (ASC) . 02 Note: Note 02 The [...] <-Panic Low,>-Panic High,A-Abnormal,AA-Critical Abnormal Performed at: [address] [place] [address] Seble Lopez MD, SPATULA-ALONE VAGINA CLINISYNCNOMS [facility] papilloma virus 16+18+31+33+35+39+45+51+52+56+58+59+66+68 DNA [Presence] in Raul 68-69-4749TJH 16+18+31+33+35+39+45+51+52+56+58+59+66+68 DNA Probe+sig amp Ql (Cvx)Negative NegativeDetwiler Memorial HospitalComment on above:This nucleic acid amplification test detects fourteen high-risk HPV types (16,18,31,33,35,39,45,51,52,56,58,59,66,68)without differentiation.Performed at: = - Lab[address] [id number] Director: Seble Lopez MD, Phone: [phone] at: [address] [id number] Director: Seble Lopez MD, Phone: [phone] Panel Informationon 05-16-3826MUF High Risk Other CommentNote. [facility] HospitalComment on above:TESTS RESULT FLAG UNITS REF RANGE LAB DIAGNOSIS: 02 NEGATIVE FOR INTRAEPITHELIAL LESION OR MALIGNANCY.Specimen adequacy: 02 Satisfactory forevaluation.Performed by: [place] Driver Education Instructor ([facility]). 02Note: Note 02 The Pap smear [...] <-Panic Low,>-Panic High,A-Abnormal,AA-Critical Abnormal Performed at:[address] [place] [address] Seble Lopez MD, Jlbfwbzof Lab Test Patient AgeNote.[facility] HospitalComment on above:TESTS RESULT FLAG UNITS REF RANGE LAB Clinician Provided Cytology Information Source.............Vagina No. of containers..01 ThinPrep VialAge Meño PERSON Nichole... 3065 FLAG LEGEND: L- Low Normal,H-High Normal,LL-Alert Low,HH-Alert High <-Panic Low,>-Panic High,A-Abnormal,AA-Critical Abnormal Performed at:01 =G [address] [address] Seble Lopez MD, Ztwxpisiy Auto (Bld) [#/Vol]on 81-98-3448Ottzzkpqj (Bld) [#/Vol]0.0 10 3/uL0.0-0.1FThe Jewish HospitalBasophils/100 WBC Auto (Bld)on 23-37-1631Fsvipxyii/100 WBC (Bld)1.2 %0.2-2.0[facility] HospitalCholesterol in LDL Calc [Mass/Vol]on 97-64-4354Zynhdhnwdxr in LDL [Mass/Vol]143.0 mg/dLDetwiler Memorial HospitalComment on above:<100 mg/dl TMBPLHP017-618 mg/dl NEAR OR ABOVE GNXKWBY320-562 mg/dl BORDERLINE IULH302-351 mg/dl HIGH>190 mg/dl VERY HIGHCholesterol in VLDL Calc [Mass/Vol]on 26-41-6947Nfqsravhgwe in VLDL [Mass/Vol]14.4 mg/dLDetwiler Memorial HospitalEosinophils/100 WBC Auto (Bld)on 94-00-3465Ququyhqnqsm/100 WBC (Bld)1.2 % 0.9-7.0[facility] HospitalErythrocyte distribution width Auto (RBC) [Ratio]on 16-75-7716Owlejgchtci distribution width (RBC) [Ratio]11.9 % 11.0-15.0[facility] HospitalEstimated glomerular filtration rate (GFR) non- Americanon 94-43-3675QLZ/1.73 sq M.predicted among non-blacks MDRD (S/P/Bld) [Vol rate/Area]mL/min/{1.73_m2}>=60[facility] HospitalGlobulin Calc (S) [Mass/Vol]on 51-50-7558Eipnrlux (S) [Mass/Vol]4.2 g/dL [facility] HospitalGlucose mean value [Mass/volume] in Blood Estimated from glycated hemoglobinon 30-63-0768Wqzihta glucose Estimated from glycated hemoglobin (Bld) [Mass/Vol]105 mg/dLDetwiler Memorial Hospital Hematocrit Auto (Bld) [Volume fraction]on 69-73-2293Jofqitskyc (Bld) [Volume fraction]33.4 %Low36.0-48.0[facility] HospitalHemoglobin [Mass/volume] in Bloodon 05-43-0152Azkboxuymk (Bld) [Mass/Vol]11.1 g/dLLow 12.0-16.0[facility] HospitalLaboratory - Chemistry and Chemistry - challengeon 57-48-3783Blkdjvu [Mass/Vol]3.0 g/dLLow3.4-5.0[facility] HospitalALP [Catalytic activity/Vol]93 U/U65-448TjicthcmtDetwiler Memorial HospitalALT [Catalytic activity/Vol]24 U/R87-59PkjtehlpfDetwiler Memorial Hospital AST [Catalytic activity/Vol]22 U/B86-96YhwrajvbmDetwiler Memorial Hospital Bilirubin [Mass/Vol]0.6 mg/dL0.2-1.0[facility] HospitalCalcium [Mass/Vol]9.0 mg/dL8.5-10.1FThe Jewish HospitalChloride [Moles/Vol] 104 mmol/B33-616GbkwempifDetwiler Memorial HospitalCholesterol [Mass/Vol]212 mg/dL High<=200Det[facility] HospitalCholesterol in HDL [Mass/Vol]55 mg/dL 40-60[facility] HospitalComment on above:> or =60 mg/dl - LOW CARDIOVASCULAR RISK<40 mg/dl - HIGH CARDIOVASCULAR RISKCO2 [Moles/Vol]30.3 mmol/L21.0-32.0[facility] HospitalCreatinine [Mass/Vol]0.80 mg/dL 0.55-1.02[facility] HospitalGFR/1.73 sq M.predicted MDRD (S/P/Bld) [Vol rate/Area]mL/min/{1.73_m2}>=60[facility] HospitalGlucose [Mass/Vol]103 mg/cT68-510YycxbcgguDetwiler Memorial HospitalPotassium [Moles/Vol] 3.6 mmol/L3.5-5.1FThe Jewish HospitalProtein [Mass/Vol]7.2 g/dL 6.4-8.2FKettering Health Miamisburgodium [Moles/Vol]143 mmol/D669-160 [facility] HospitalTriglyceride [Mass/Vol]72 mg/dL<=150Det[facility] HospitalUrea nitrogen [Mass/Vol]15.0 mg/dL7.0-18.0[facility] HospitalUrea nitrogen/Creatinine [Mass ratio]18.8 mg/mgDetwiler Memorial HospitalLaboratory - Hematology and Cell countson 66-54-0372IiI0s (Bld) [Mass fraction]5.3 %4.5-6.2FThe Jewish HospitalComment on above:ADA RECOMMENDED LIMIT 4.0 - 6.0ADA THERAPEUTIC TARGET < 7.0ACTION SUGGESTED> 7.0Immature granulocytes/100 WBC (Bld)0.0 %0.0-0.5FThe Jewish HospitalLeukocytes [#/volume] corrected for nucleated erythrocytes in Blood by Automated counon 27-76-3509PHJ corrected for nucl RBC Auto (Bld) [#/Vol]3.3 10 3/uLLow4.0-11.0[facility] HospitalLymphocytes Auto (Bld) [#/Vol]on 28-57-0249Rjkapitsltw (Bld) [#/Vol]1.1 10 3/uLLow1.2-3.8 [facility] HospitalLymphocytes/100 WBC Auto (Bld)on 03-27-2024 Lymphocytes/100 WBC (Bld)32.4 %20.5-60.0[facility] HospitalH Auto (RBC) [Entitic mass]on 73-71-3345TYA (RBC) [Entitic mass]31.3 pg26.7-34.0 [facility] HospitalMCHC Auto (RBC) [Mass/Vol]on 84-72-7448UPWO (RBC) [Mass/Vol]33.2 g/dL29.9-35.2FThe Jewish HospitalMCV Auto (RBC) [Entitic vol]on 90-60-2723DNM (RBC) [Entitic vol]94.1 fL81.0-99.0[facility] HospitalMonocytes Auto (Bld) [#/Vol]on 96-32-7180Bnpvybpmx (Bld) [#/Vol]0.4 10 3/uL0.3-0.8[facility] HospitalMonocytes/100 WBC Auto (Bld)on 71-74-8727Yyohlzagt/100 WBC (Bld)10.6 %1.7-12.0[facility] HospitalNeutrophils Auto (Bld) [#/Vol]on 49-75-1020Blqgjdbgwfh (Bld) [#/Vol]1.8 10 3/uL1.4-6.5FThe Jewish HospitalNeutrophils/100 WBC Auto (Bld)on 71-38-4220Kwusqvjpckq/100 WBC (Bld)54.6 %43.0-75.0[facility] HospitalNo Panel Informationon 66-47-0620Ihlkkwewolq # (Auto)0.0 10 3/uL0.0-0.7FThe Jewish HospitalImmature Granulocyte # (Auto)0.00 10 3/uL0.00-0.03[facility] HospitalPlatelet mean volume Auto (Bld) [Entitic vol]on 85-37-7989Qrhifesr mean volume (Bld) [Entitic vol]8.8 fL Low9.5-13.5FThe Jewish HospitalPlatelets Auto (Bld) [#/Vol]on 22-12-7826Klimqququ (Bld) [#/Vol]393 10 3/jD730-059SpswciakmDetwiler Memorial HospitalRBC Auto (Bld) [#/Vol]on 51-07-8445KDG (Bld) [#/Vol]3.55 10 6/uLLow 4.20-5.40[facility] – Jacksonerum or plasma albumin/globulin mass ratioon 41-70-2828Ckijqpd/Globulin [Mass ratio]0.7 {ratio}[facility] – Jacksonerum or plasma anion gap determinationon 57-26-6185Qyffv gap [Moles/Vol]12.3 mmol/LFKettering Health Miamisburgerum or plasma total cholesterol/high density lipoprotein (HDL) cholesterol mass hussain 03-27-2024 Cholesterol.total/Cholesterol in HDL [Mass ratio]3.9 {ratio}[facility] HospitalComment on above:3.3 - 4.4 LOW RISK4.4 - 7.1 AVERAGE RISK7.1 - 11.0 MODERATE RISK>11.0 HIGH RISKFibrin D-dimer [Presence] in Platelet poor plasma by Latex agglutinationon 65-70-0040Hhfnll D-dimer LA Ql (PPP)1.05 mg/L FEUHigh<=0.59[facility] HospitalComment on above:RESULTS CALLED TO MARYSE SINGLETON [...] thrombolyticor anticoagulant therapy, stress, and generalizedhospitalization. DIHYDROTESTOSTERONEon 90-61-0770Ndrjeyqpudsxnchdnll85 ng/dLLakeHealth TriPoint Medical CenterComment on above:Result Comment: This test was developed and its performance characteristics determined by [facility]. It has not been cleared or approved by the Food and Drug Administration. Reference Range: Adult Female: 4 - 22Performed By: #### DHT #### [facility] [address] [place] [address] Dr. Manny EllerTESTOSTERONE, FREE,DIRECT, TOTALon 70-53-1429Obfk Testosterone(Direct)1.7 pg/mLNormal0.0-4.2The [facility] HospitalComment on above: Result Comment: Performed at: BNPerformed By: #### TESTFRD #### [facility] [address] [place] [address] Dr. Manny EllerTestosterone [Mass/Vol]32 ng/dLNormal4-50[facility] Comment on above:Result Comment: Performed at: CBPerformed By: #### TESTFRD #### [facility] [address] [place] [address] Dr. Manny TadeoEA-SULFATEon 67-49-6264YURB-Kqchyaf280.0 ug/qSVjoyfa44.2-243.7 [facility] HospitalComment on above:Performed By: #### DHEASUL #### [facility] [address] [place] [address] Dr. Manny EllerMG MAMM SCREEN 3D ELOY CADon 68-18-6602PY MAMM SCREEN 3D ELOY CAD Patient: JENNIFER ZAMORA Exam Date: 11/30/2022 : 1970 Gender:F Ordering : DR ARMANDO MARTINEZ . Admission #: [id number] Family : Order #: [id number] CLICK HERE TO VIEW EXAM RADIOLOGY REPORT [...] Treatments None Family Cancers None LOCATION: [facility] BREAST COMPOSITION: Scattered areas fibroglandular [...] by: Carlos Gabriel MD on 11/30/2022 at 13:57[facility] COVID/FLU RT-PCRon 90-52-1469RSYX-CoV-2 (COVID-19) RNA BOB+probe Ql (Unsp spec) Positive[facility] Other COVID/FLU RT-PCRNegativeEast Adams [facility] Healthcare [employer] Other CORTISOLon [id number] ug/dLNoSt. Anthony's HospitalComment on above:Result Comment: Cortisol AM 6.2 - 19.4 Cortisol PM 2.3 - 11.9Performed By: #### DHT #### [facility] [address] [place] [address] Dr. Manny EllerTESTOSTERONE, FREE,DIRECT, TOTALon [id number] Testosterone(Direct)<0.5Aagfjm1.0-4.2City HospitalComment on above: Result Comment: Performed at: BNPerformed By: #### TESTFRD #### [facility] [address] [place] [address] Dr. Manny EllerTestosterone [Mass/Vol]ng/dLCritically low4-50City HospitalComment on above:Result Comment: Performed at: CBPerformed By: #### TESTFRD #### [facility] [address] [place] [address] Dr. Manny EllerCORTISOLon 30-25-4585Crurgyiv6.5 ug/dLLakeHealth [facility] Comment on above:Result Comment: Cortisol AM 6.2 - 19.4 Cortisol PM 2.3 - 11.9Performed By: #### CORTISO #### [facility] [address] [place] [address] Dr. Manny TadeoEA-SULFATEon [id number]-Yzxcmci06.2 ug/dLCritically low 41.2-243.7ThAvita Health System Galion HospitalComment on above:Performed By: #### DHEASUL #### [facility] [address] [place] [address] Dr. Manny GarciaTRADIOLon 87-04-0685Kztnkouof61.9 pg/mLNTrumbull Memorial HospitalComment on above:Result Comment: Adult Female: Follicular phase 12.5 - 166.0 Ovulation phase 85.8 - 498.0 Luteal phase 43.8 - 211.0 Postmenopausal <6.0 - 54.7 1st trimester 215.0 - >4300.0 [place] ECLIA methodologyPerformed By: #### CMP, LIPID #### [facility] [address] [place] [address] Dr. Manny GarciaTRONEon 80-10-8841Wfvmfrh, Serum<6NormalThAvita Health System [facility] Comment on above:Result Comment: Range Adult (Premenopausal) 27 - 231 Menstrual Cycle (1-10 days) 19 - 149 Menstrual Cycle (11-20 days) 32 - 176 Menstrual Cycle (21-30 days) 37 - 200 Adult (Postmenopausal) 0 - 125Performed By: #### ESTRONE #### [facility] [address] [place] [address] Dr. Manny EllerPROGESTERONEon 68-18-8204Spauzzehhgrr<0.1NTrumbull Memorial HospitalComment on above:Result Comment: Follicular phase 0.1 - 0.9 Luteal phase 1.8 - 23.9 Ovulation phase 0.1 - 12.0 First trimester 11.0 - 44.3 Second trimester 25.4 - 83.3 Third trimester 58.7 - 214.0 Postmenopausal 0.0 - 0.1Performed By: #### CMP, LIPID #### [facility] [address] [place] [address] Dr. Manny LukeX HORMONE-BINDING GLOBULINon 34-63-0473Rxc Horm Binding Glob, Serum55.9 nmol/FZhvijo37.3-125.0The [facility] - Youngstownment on above:Performed By: #### SEXHBG #### [facility] [address] [place] [address] Dr. Manny EllerGLYCOHEMOGLOBIN A1Con 04-77-9077WMB RECOMMENDATIONSEE BELOWNormal The [facility] HospitalComment on above:Result Comment: ADA RECOMMENDED LIMIT 4.0 - 6.0 ADA THERAPEUTIC TARGET < 7.0 ACTION SUGGESTED > 7.0Performed By: #### DHT #### [facility] [address] [place] [address] Dr. Manny EllerGlucose [Mass/Vol]108 mg/dLNoSt. Anthony's HospitalComment on above:Performed By: #### DHT #### [facility] [address] [place] [address] Dr. Manny EllerHbA1c (Bld) [Mass fraction]5.4 %Normal4.5-6.2The [facility] HospitalComment on above:Performed By: #### DHT #### [facility] [address] [place] [address] Dr. Manny EllerPOTASSIUMon 33-38-1815Bykprpiae [Moles/Vol]3.6 mmol/LNormal 3.5-5.1The [facility] on above:Performed By: #### CMP, LIPID #### [facility] [address] [place] [address] Dr. Manny EllerVITAMIN D 25 OHon 54-17-4774LQP D 25-OH37.3 ng/mLNormalThe [facility] HospitalComhenry [facility] on above:Performed By: #### DHT #### [facility] [address] [place] [address] Dr. Manny Fish D RANGES[place] BELOWLakeHealth TriPoint Medical CenterComhenry [facility] on above: Result Comment: <20 ng/mL Vit D deficient 20 - <30 ng/mL Vit D insufficient 30 - 100 ng/mL Vit D sufficient >100 ng/mL Potential ToxicityPerformed By: #### DHT #### [facility] [address] [place] [address] Dr. Manny Yip AUTO DIFFon 83-66-5557MOBD #0.1 103/ulNormal0.0-0.1The [facility] HospitalComment on above:Performed By: #### CMP, LIPID #### [facility] [address] [address] [address] Manny EllerBasophils/100 WBC (Bld)1.1 %Normal0.2-2.0[facility] Comment on above:Performed By: #### CMP, LIPID #### [facility] [address] [address] [address] Manny Weinstein #0.1 103/ulNormal0.0-0.7The [facility] HospitalComment on above: Performed By: #### CMP, LIPID #### [facility] [address] [place] [address] Dr. Manny Urbanoosinophils/100 WBC (Bld)1.1 %Normal0.9-7.0The [facility] Comment on above:Performed By: #### CMP, LIPID #### [facility] [address] [address] [address] Manny Urbanorythrocyte distribution width (RBC) [Ratio]12.2 %Fkndqz67.0-15.0 The [facility] HospitalComment on above:Performed By: #### CMP, LIPID #### [facility] [address] [place] [address] Dr. Manny EllerHematocrit (Bld) [Volume fraction]42.9 %Tcxwak85.0-48.0The [facility] HospitalComment on above:Performed By: #### CMP, LIPID #### [facility] [address] [place] [address] Dr. Manny EllerHemoglobin (Bld) [Mass/Vol]15.0 g/pQXodrqh14.0-16.0The [facility] HospitalComment on above:Performed By: #### CMP, LIPID #### [facility] [address] [place] [address] Dr. Manny Esparza #0.01 10e3/ulNormal0.00-0.03The [facility] HospitalComment on above:Performed By: #### CMP, LIPID #### [facility] [address] [place] [address] Dr. Manny Esparza %0.2 %Normal0.0-0.5The [facility] HospitalComment on above: Performed By: #### CMP, LIPID #### [facility] [address] [place] [address] Dr. Manny Calderon #1.3 103/ulNormal1.2-3.8The [facility] HospitalComment on above:Performed By: #### CMP, LIPID #### [facility] [address] [place] [address] Dr. Manny Hunterhocytes/100 WBC (Bld)28.4 %Suntsv61.5-60.0The [facility] HospitalComment on above:Performed By: #### CMP, LIPID #### [facility] [address] [place] [address] Dr. Manny MorelosUAL DIFF REQNONormalThe [facility] HospitalComment on above: Performed By: #### CMP, LIPID #### [facility] [address] [place] [address] Dr. Manny Rodriguez (RBC) [Entitic mass]32.3 acKpmjgg82.7-34.0The [facility] HospitalComment on above:Performed By: #### CMP, LIPID #### [facility] [address] [place] [address] Dr. Manny Jimenez (RBC) [Mass/Vol]35.0 g/sKGzlebl29.9-35.2The [facility] HospitalComment on above:Performed By: #### CMP, LIPID #### [facility] [address] [place] [address] Dr. Manny Jimenez (RBC) [Entitic vol]92.5 xXNzpseq60.0-99.0The [facility] HospitalComment on above:Performed By: #### CMP, LIPID #### [facility] [address] [place] [address] Dr. Manny Lockhart #0.3 103/ulNormal0.3-0.8The [facility] HospitalComment on above:Performed By: #### CMP, LIPID #### [facility] [address] [place] [address] Dr. Manny Baileyocytes/100 WBC (Bld)7.0 %Normal1.7-12.0The [facility] Comment on above:Performed By: #### CMP, LIPID #### [facility] [address] [place] [address] Dr. Manny Membreno #2.8 103/ulNormal1.4-6.5The [facility] HospitalComment on above:Performed By: #### CMP, LIPID #### [facility] [address] [place] [address] Dr. Manny Berriosutrophils/100 WBC (Bld)62.2 %Rnbijb93.0-75.0The [facility] HospitalComment on above:Performed By: #### CMP, LIPID #### [facility] [address] [place] [address] Dr. Manny De La Cruzlet mean volume (Bld) [Entitic vol]9.6 fLNormal9.5-13.5The [facility] HospitalComment on above:Performed By: #### CMP, LIPID #### [facility] [address] [place] [address] Dr. Manny EllerPLT322 103/roWaxygq437-623Frg [facility] HospitalComment on above: Performed By: #### CMP, LIPID #### [facility] [address] [place] [address] Dr. Manny EllerRBC4.64 106/ulNormal4.20-5.40The [facility] HospitalComment on above:Performed By: #### CMP, LIPID #### [facility] [address] [place] [address] Dr. Manny EllerWBC4.6 103/ulNormal4.0-11.0The [facility] HospitalComment on above: Performed By: #### CMP, LIPID #### [facility] [address] [address] [address] Manny PadillaID PROFILEon 15-41-9537OOWW-HDL RATIO NORMSCity HospitalComment on above:Result Comment: 3.3 - 4.4 LOW RISK 4.4 - 7.1 AVERAGE RISK 7.1 - 11.0 MODERATE RISK >11.0 HIGH RISKPerformed By: #### CMP, LIPID #### [facility] [address] [address] [address] Manny EllerCholesterol [Mass/Vol]171 mg/dLNormal<=200The [facility] Comment on above:Performed By: #### CMP, LIPID #### [facility] [address] [place] [address] Dr. Manny EllerCholesterol in HDL [Mass/Vol]49 mg/qSMyxnjl21-84WzpCity HospitalComment on above:Performed By: #### CMP, LIPID #### [facility] [address] [place] [address] Dr. Manny EllerCholesterol in LDL [Mass/Vol]103.4 mg/dLLakeHealth TriPoint Medical CenterComment on above:Performed By: #### CMP, LIPID #### [facility] [address] [place] [address] Dr. Manny Rodriguezesterozzie.total/Cholesterol in HDL [Mass ratio]3.5 {ratio} NormalCity HospitalComment on above:Performed By: #### CMP, LIPID #### [facility] [address] [place] [address] Dr. Manny Pepper NORMAL> or = 60 mg/dl - LOW CARDIOVASCULAR RISK <40 mg/dl - HIGH CARDIOVASCULAR RISKLakeHealth TriPoint Medical CenterComment on above:Performed By: #### CMP, LIPID #### [facility] [address] [place] [address] Dr. Manny EllerLDL CALC NORMALSEE The Christ HospitalComment on above:Result Comment: <100 mg/dl OPTIMAL 100 - 129 mg/dl NEAR OR ABOVE OPTIMAL 130 - 159 mg/dl BORDERLINE HIGH 160 - 189 mg/dl HIGH >190 mg/dl VERY HIGH Performed By: #### CMP, LIPID #### [facility] [address] [address] [address] Manny EllerTriglyceride [Mass/Vol]93 mg/dLNormal<=150The [facility] Comment on above:Performed By: #### CMP, LIPID #### [facility] [address] [address] [address] Manny EllerVLDL CALC18.6 mg/dLNormalThe [facility] HospitalComment on above: Performed By: #### CMP, LIPID #### [facility] [address] [place] [address] Dr. Manny EllerPROAguila 14(COMP METB)on 27-49-6455Uwigxkh [Mass/Vol]3.8 g/dLNormal 3.4-5.0The [facility] HospitalComment on above:Performed By: #### CMP, LIPID #### [facility] [address] [place] [address] Dr. Manny EllerAlbumin/Globulin [Mass ratio]1.1 {ratio}NormalThe [facility] HospitalComment on above:Performed By: #### CMP, LIPID #### [facility] [address] [place] [address] Dr. Manny Funes [Catalytic activity/Vol]73 U/GIkuesq42-763Auh [facility] HospitalComment on above:Performed By: #### CMP, LIPID #### [facility] [address] [place] [address] Dr. Manny Meredith [Catalytic activity/Vol]39 U/WJyyjgy71-76Rdx [facility] HospitalComment on above:Performed By: #### CMP, LIPID #### [facility] [address] [place] [address] Dr. Manny Gordon gap [Moles/Vol]11.6 mmol/LNormalThe [facility] Comment on above:Performed By: #### CMP, LIPID #### [facility] [address] [place] [address] Dr. Manny Edwards [Catalytic activity/Vol]23 U/JXhxjtf41-40Jag [facility] HospitalComment on above:Performed By: #### CMP, LIPID #### [facility] [address] [address] [address] Manny EllerBilirubin [Mass/Vol]0.7 mg/dLNormal0.2-1.0[facility] Comment on above:Performed By: #### CMP, LIPID #### [facility] [address] [place] [address] Dr. Manny EllerCalcium [Mass/Vol]9.3 mg/dLNormal8.5-10.1The [facility] Comment on above:Performed By: #### CMP, LIPID #### [facility] [address] [place] [address] Dr. Manny EllerChloride [Moles/Vol]101 mmol/DZlhyvv39-271Lcl [facility] Comment on above:Performed By: #### CMP, LIPID #### [facility] [address] [place] [address] Dr. Manny EllerCO2 [Moles/Vol]31.2 mmol/GSacrlq15.0-32.0The [facility] Comment on above:Performed By: #### CMP, LIPID #### [facility] [address] [place] [address] Dr. Manny EllerCreatinine [Mass/Vol]0.87 mg/dLNormal0.55-1.02The [facility] HospitalComment on above:Performed By: #### CMP, LIPID #### [facility] [address] [place] [address] Dr. Manny UrbanoGFR-AF THAI>60Normal>=60The [facility] HospitalComment on above:Performed By: #### CMP, LIPID #### [facility] [address] [place] [address] Dr. Manny UrbanoGFR-NON AF THAI>60Normal>=60The [facility] HospitalComment on above:Performed By: #### CMP, LIPID #### [facility] [address] [place] [address] Dr. Manny EllerGlobulin (S) [Mass/Vol]3.6 g/dLNormMercy Health St. Anne HospitalComment on above:Performed By: #### CMP, LIPID #### [facility] [address] [place] [address] Dr. Manny EllerGlucose [Mass/Vol]124 mg/dLCritically htqf87-010Msn [facility] HospitalComment on above:Performed By: #### CMP, LIPID #### [facility] [address] [place] [address] Dr. Manny EllerPotassium [Moles/Vol]2.8 mmol/LCritically low3.5-5.1The [facility] HospitalComment on above:Performed By: #### CMP, LIPID #### [facility] [address] [place] [address] Dr. Manny EllerProtein [Mass/Vol]7.4 g/dLNormal6.4-8.2[facility] Comment on above:Performed By: #### CMP, LIPID #### [facility] [address] [place] [address] Dr. Manny EllerSodium [Moles/Vol]141 mmol/MCaogdd459-981Hgb [facility] Comment on above:Performed By: #### CMP, LIPID #### [facility] [address] [place] [address] Dr. Manny EllerUrea nitrogen [Mass/Vol]15.0 mg/dLNormal7.0-18.0The [facility] HospitalComment on above:Performed By: #### CMP, LIPID #### [facility] [address] [place] [address] Dr. Manny EllerUrea nitrogen/Creatinine [Mass ratio]17.2 mg/mgNoSt. Anthony's HospitalComment on above:Performed By: #### CMP, LIPID #### [facility] [address] [place] [address] Dr. Manny Marshall Visit (Cardiology)on 09-58-3323Qrnrqj-up visit Diagnoses/Problems Assessed Palpitations (785.1) (R00.2) NSVT [...] Recorded: 18Jul2022 01:41PM Heart Rate68, L Radial Ghgmvlrj100, LUE, Sitting Vbweeonuh11, LUE, Sitting Height5 ft 7 in Mxamik219 lb 4 oz BMI Ciohwwqbxq15.54 kg/m2 BSA Ca (more content not included)...NormalUH TouchworksTobacco Screening.on 85-20-0579Xxtvi depression screening assessmentNo-[facility] [employer] 250 DO Work Phone: Tobacco use status CPHSb) NoMP-[facility] FunnelFire 250 DO Work Phone: CT HEAD WO CONon 49-93-6688KN HEAD WO CONEXAMINATION: CT HEAD WO CON [...] by: ADAIR SCHMITT Date: 2022-07-15 11:31 NormalThe [facility] NECK WO W CONon 68-26-7444QAK NECK WO W CON EXAMINATION: CTA NECK [...] Electronically authenticated by: CARLOS RUBI Date: 2022-07-15 14:[address] [place], [place] [address]Urinalysis - AUTOMATEDon 78-10-6933Lyfqmfddkx (U)clearNoBeeFirst.in Other Bilirubin Ql (U)NegativeNoVariab.ly [place] Other Color (U)orange yellowNoVariab.ly [place] Other Glucose Ql (U)100Nort [employer] [place] [place] Other Hemoglobin Ql (U)smallNonortheast [facility] [place] Other Ketones Ql (U)traceNonort[facility] [place] Other Nitrite Ql (U)PositiveNoBeeFirst.in Other pH (U)6.5 [pH][place] Other Protein Ql (U)traceNonortheast [facility] [employer] [place] [place] Other Specific gravity (U) [Rel density]1.025[place] Other Urobilinogen (U) [Mass/Vol]1.0 mg/dLTygh Valley [place] Other Urinalysis - AUTOMATEDTygh Valley [place] Other Office Visit (Cardiology)on 73-29-9829Vlndgc-up visit Diagnoses/Problems Assessed NSVT (nonsustained ventricular tachycardia) [...] Vital Signs Recorded: 09Nov2021 02:37PMRecorded: 09Nov2021 02:32PM Kvfkrmow096, LUE, Gakasqx651, LUE, Sitting Ozmlngcdz26, LUE, Gmdndcj90, LUE, Sitting Heart Rate69, L Brachial Artery Height5 ft 7 in Euxbed133 lb BMI Gkdabtdzuy51.96 kg/m2 BSA Calculated2.17 Tobacco Useb) No Fall Screeningc) Not medical (more content not included)...NormalUH TouchPlatypus Platform Tobacco Screening.on 45-29-1958Ruvw risk assessmentc) Not medically indicatedAbbott [facility] 250 DO Work Phone: Tobacco use status CPHSb) NoMOlivia Hospital And Clinics- [facility] 250 DO Work Phone: COVID Quick Testingon 33-29-1018AfxfcmFhzmteviYpufj [place] Other NO CARDIAC STRESS/REST INJECTIONon 09-23-9206QKH CARDIAC STRESS/REST INJECTIONMRN: [id number] Patient Name: JENNIFER ZAMORA STUDY: MYOCARDIAL PERFUSION STRESS TEST WITH EXERCISE Performing facility: [facility], [address] [place] [address] Provider: Joao Ramírez MD PCP: Dr. Beatrice Das Supervising provider: Joao Ramírez MD INDICATION: Abnormal EKG; Palpitations NSVT HISTORY: Gender: F; Age: 50 y/o ; Height: 170.18 cm; Weight: 135.7210614 kg. HTN; Palpitations; SOB; Denies smoking. COMPARISON: No comparison. ACCESSION NUMBER(S): [id number]; [id number]; [id number] ORDERING CLINICIAN: JOAO RAMÍREZ TECHNIQUE: TWO DAY [...] for comparison. Electronically signed by: JOAO RAMÍREZ MDSt. Christopher's Hospital for [facility] Vital Signs Date TimeVital SignValuePerforming SzydfayugWaahijog02-92-4393 13:59-0400Body coiyht875.18 cmBenjamin Ball DO Work Phone: [facility]09-05-2025 13:59-0400 Body mass index (BMI) [Ratio]25.7 kg/q7Mbpxpfxh Ball DO Work Phone: [facility]09-05-2025 13:59-0400 Body dudapxhrcsh69.9 [degF]Grady Ball DO Work Phone: [facility]09-05-2025 13:59-0400 Body zvvqas30.55 kgBenjamin Ball DO Work Phone: [phone])[address] [place], [place] 1047409-05-2025 13:59-0400 Diastolic blood fbdvejws10 mm[Hg]Grady Ball DO Work Phone: [phone])[address] [place], [place] 1047409-05-2025 13:59-0400 Heart rate97 /minBenjamin Ball DO Work Phone: [phone])[address] [place], [place] 1047409-05-2025 13:59-0400 Respiratory rate18 /minBenjamin Ball DO Work Phone: [phone])[address] [place], [place] 1047409-05-2025 13:59-0400 SaO2% (BldA) [Mass fraction]99 %Grady Ball DO Work Phone: [phone])[address] [place], [place] 1047409-05-2025 13:59-0400 Systolic blood kerrvunj956 mm[Hg]Grady Ball DO Work Phone: [phone])[address] [place], [place] 1047408-25-2025 08:40-0400 Body bsrxvu791.18 cmBenjamin Ball DO Work Phone: [phone])[address] [place], [place] 1047408-25-2025 08:40-0400 Body mass index (BMI) [Ratio]26 kg/c8Fblfcdoe Ball DO Work Phone: [phone])[address] [place], [place] 1047408-25-2025 08:40-0400 Body leqyrr65.52 kgBenjamin Ball DO Work Phone: [phone])[address] [place], [place] 1047408-25-2025 08:40-0400 Diastolic blood jgaubutz90 mm[Hg]Grady Ball DO Work Phone: [phone] [place], [place] 1047408-25-2025 08:40-0400 Heart rate76 /minBenjamin Ball DO Work Phone: [phone])[address] [place], [place] 1047408-25-2025 08:40-0400 Respiratory rate12 /minBenjamin Ball DO Work Phone: [phone])[address] [place], [place] 1047408-25-2025 08:40-0400 Systolic blood guozfjmt713 mm[Hg]Grady Ball DO Work Phone: [phone]07-22-2025 14:43-0400 Body terifu805.18 cmBenjamin Ball DO Work Phone: [phone] [place], [place] 6712307-22-2025 14:43-0400 Body mass index (BMI) [Ratio]24.9 kg/t8Favhwtyc Ball DO Work Phone: [phone] [place], [place] 1047407-22-2025 14:43-0400 Body gubnprpsczw83.1 [degF]Grady Ball DO Work Phone: 1([phone] [place], [place] 1047407-22-2025 14:43-0400 Body .17 kgBenjamin Ball DO Work Phone: [phone] [place], [place] 1047407-22-2025 14:43-0400 Diastolic blood jflewfuj78 mm[Hg]Grady Ball DO Work Phone: [phone] [place], [place] 1047407-22-2025 14:43-0400 Heart rate86 /minBenjamin Ball DO Work Phone: [phone] [place], [place] 1047407-22-2025 14:43-0400 Respiratory rate14 /minBenjamin Ball DO Work Phone: [phone] [place], [place] 1047407-22-2025 14:43-0400 SaO2% (BldA) [Mass fraction]99 %Grady Ball DO Work Phone: 1(158)[facility] [place], [place] 6712307-22-2025 14:43-0400 Systolic blood jnaynvsv345 mm[Hg]Grady Ball DO Work Phone: [phone])[facility]05[facility]02-26-2025 14:39-0500 Body xirnye079.18 cmDetwiler Memorial Hospital02-26-2025 14:39-0500Body mass index (BMI) [Ratio]25.7 kg/j8BrxvlmhovDetwiler Memorial Hospital02-26-2025 14:39-0500Body .44 kgDetwiler Memorial Hospital02-26-2025 14:39-0500Diastolic blood thufrlgo96 mm[Hg][facility] 12-10-2024 14:39-0500Heart lzon002 /[facility] 12-10-2024 14:39-0500Respiratory rate12 /[facility] 12-10-2024 14:39-0500Systolic blood bkvpvgmu747 mm[Hg][facility]02-19-2025 13:19-0500Respiratory rate18 /minStanley Orlop DO Work Phone: ELewisG[facility]02-19-2025 10:30-0500Body .7 [degF]Krish Orlop DO Work Phone: QLewisGale [facility]02-19-2025 10:30-0500Diastolic blood esxyrupn13 mm[Hg]Krish Orlop DO Work Phone: [phone]02-19-2025 10:30-0500Heart rate99 /minStanley Orlop DO Work Phone: [facility]02-19-2025 10:30-0348MyL6% (BldA) [Mass fraction]99 %Krish Orlop DO Work Phone: [facility]02-19-2025 10:30-0500Systolic blood ncvdyrdd397 mm[Hg]Krish Orlop DO Work Phone: [facility]02-16-2025 21:15-0500Body tmyqzm488.2 cmStanley Orlop DO Work Phone: [facility]02-16-2025 21:15-0500Body mass index (BMI) [Ratio]26.28 kg/c0Kxvzkrl Orlop DO Work Phone: [facility]02-16-2025 21:15-0500Body .11 kgStanley Orlop DO Work Phone: [facility]01-07-2025 14:59-0500Body nyhbqu735.18 cmDetwiler [facility] Hospital01-07-2025 14:59-0500Body mass index (BMI) [Ratio]26.3 kg/p2YbpfiqmojDetwiler Memorial Hospital01-07-2025 14:59-0500Body hztpuj71.2 kgDetwiler Memorial Hospital01-07-2025 14:59-0500Diastolic blood ffmdciqs08 mm[Hg][facility] 10-21-2024 14:59-0500Diastolic blood earcezzk71 mm[Hg][facility]01-07-2025 14:59-0500Heart rate80 /[facility] 10-21-2024 14:59-0500Respiratory rate12 /[facility] 10-21-2024 14:59-0500Systolic blood wdlanlty752 mm[Hg][facility]01-07-2025 14:59-0500Systolic blood uqkxxkye612 mm[Hg][facility]08-30-2024 17:20-0400Body tkykzi245.18 cmDetwiler Memorial Hospital08-30-2024 17:20-0400Body mass index (BMI) [Ratio]24.1 kg/m2 [facility]08-30-2024 17:20-0400Body epltbfokdyh02.1 [degF][facility]08-30-2024 17:20-0400Body eoithl53.96 kg [facility]08-30-2024 17:20-0400Diastolic blood uswoqetg56 mm[Hg][facility]08-30-2024 17:20-0400Heart rate83 /min [facility]08-30-2024 17:20-0400Respiratory rate16 /min [facility]08-30-2024 17:20-6852WtJ8% (BldA) [Mass fraction]99 %[facility]08-30-2024 17:20-0400Systolic blood ieqqxxri226 mm[Hg][facility]05-08-2023 16:30-0400 Body .18 cmBenCarmolex, Ball Other [facility] [employer] [place] Other 05-08-2023 16:30-0400Body mass index (BMI) [Ratio] 25.12 kg/z3Ubyrqzmr Ball Other noBeeFirst.in Other 05-08-2023 16:30-0400Body erqzze48.76 kgBenjamin Ball Other [employer] Other 05-08-2023 16:30-0400Diastolic blood qfcpvhyk26 mm[Hg] Grady Ball Other [employer] Other 05-08-2023 16:30-0400Respiratory rate12 /minBenjamin Ball Other [employer] Other 05-08-2023 16:30-0400Systolic blood mhqgpbey518 mm[Hg] Grady Ball Other [employer] Other 02-06-2023 11:50-0500Body hobuog017.18 cmPamela Margoth Other [employer] Other 02-06-2023 11:50-0500Body mass index (BMI) [Ratio] 24.68 kg/y4Zeiufq Margoth Other [employer] Other 02-06-2023 11:50-0500Body bvgpuzxvkid41.2 [degF]Clare Margoth Other [employer] Other 02-06-2023 11:50-0500Body znotvb90.49 kgPamela Margoth Other [employer] Other 02-06-2023 11:50-0500Respiratory rate18 /minPamela Margoth Other [phone] [employer] [place] Other 02-06-2023 11:50-4005JxM2% (BldA) [Mass fraction]97 % [facility] Justin Other [facility] [employer] [place] [place] Other 10-04-2022 13:41-0400Body yhsbyb400.18 cmBenjamin E Ball Work Phone: [phone]-Dxmvn [place] [employer] 250 DO Work Phone: 1(323) 702-655910-04-2022 13:41-0400Body mass index (BMI) [Ratio] 28.54 kg/h0Mcpavqhp E Ball Work Phone: [phone]-Kyzoh [place] [employer] 250 DO Work Phone: 1(954) 622-579410-04-2022 13:41-0400Body surface area Derived from formula1.94 f2Rkjuwjes E Ball Work Phone: [phone]-Vtnos [place] [employer] 250 DO Work Phone: 1(691) 587-155910-04-2022 13:41-0400Body .67 kgBenjamin E Ball Work Phone: mp247-2501PO-Hzcev [place] [employer] DO Work Phone: 1(455) 446-254610-04-2022 13:41-0400Diastolic blood qgfwslil81 mm[Hg] Grady E Ball Work Phone: mp501-6762OV-Pntaz [place] [employer] DO Work Phone: 1(978) 463-407410-04-2022 13:41-0400Heart rate68 /minBenjamin E Ball Work Phone: mp653-9899AW-Bqwgi [place] [employer] DO Work Phone: 1(827) 749-522110-04-2022 13:41-0400Systolic blood zkkhhelr374 mm[Hg] Grady E Ball Work Phone: mp237-9761XJ-Luwfe [place] [employer] 250 DO Work Phone: 1(467) [phone] 14:42-0400Blood Pressure LocationJENNIFER CHARLEE [facility] [place] 05-10-2022 14:42-0400Diastolic blood mm[Hg] MABLE CHARLEE [facility] [place] 05-10-2022 14:42-0400Heart rate84 /minJENNIFER CHARLEE [facility] 05-10-2022 14:42-0400Systolic blood ubovrfui381 mm[Hg] MABLE CHARLEE [facility] [place] 03-20-2022 15:45-0400Body iukffa759.18 cmPamelgarrison Justin Other [employer] Other 03-20-2022 15:45-0400Body mass index (BMI) [Ratio] 34.45 kg/u5QaalxfClare Justin Other [employer] Other 03-20-2022 15:45-0400Body gwngcafijcl02.8 [degF]Clare Margoth Other [employer] Other 03-20-2022 15:45-0400Body ttjgga59.79 kgMarianoluis Crawfordmond Other [employer] Other 03-20-2022 15:45-0400Diastolic blood pkwsvfme87 mm[Hg] Clare Margoth Other [employer] Other 03-20-2022 15:45-0400Respiratory rate18 /Jonatan Justin Other [place] Other 03-20-2022 15:45-8970IyS1% (BldA) [Mass fraction]100 % Clare Justin Other [place] Other 03-20-2022 15:45-0400Systolic blood ahriptdk994 mm[Hg] Clare Justin [facility] [place] Other 01-26-2022 14:37-0500Diastolic blood tymolncm74 mm[Hg] Grady E Ball Work Phone: mp043-1353GD-Mbcft [place] [employer] DO Work Phone: 1(897) 226-706701-26-2022 14:37-0500Systolic blood duvtpfrb882 mm[Hg] Grady E Ball Work Phone: 1(572) [phone]-Ohazc [place] [employer] DO Work Phone: 1(256) 163-481101-26-2022 14:32-0500Body uxiurn815.18 cmBenjamin E Ball Work Phone: 1(992) [phone]-Wtskd [place] [employer] DO Work Phone: 1(213) 179-865801-26-2022 14:32-0500Body mass index (BMI) [Ratio] 36.96 kg/c2Trxsykra E Ball Work Phone: 1(106) [phone]-Ckumw [place] [employer] [address] DO Work Phone: 1(800) 292-800501-26-2022 14:32-0500Body surface area Derived from formula2.17 s3Nofezcmm E Ball Work Phone: mp236-6821TN-Lekev [place] [employer] 250 DO Work Phone: 1(419) 268-677901-26-2022 14:32-0500Body curzhh485.05 kgBenjamin E Ball Work Phone: 1(816) [phone]-Vqplb [facility] DO Work Phone: 1(152) 152-401501-26-2022 14:32-0500Diastolic blood mm[Hg] Grady Toney Rossolini Work Phone: mp463-4630VX-Jhmpo [place] [employer] [address] DO Work Phone: 1(244) 392-195401-26-2022 14:32-0500Heart rate69 /minBenjamin E Ball Work Phone: mp374-1603SB-Dpogl [place] [employer] [address] DO Work Phone: 1(910) 562-943001-26-2022 14:32-0500Systolic blood mgaivicn152 mm[Hg] Grady Toney Rossolini Work Phone: mp366-4281DL-Cejmq [place] [employer] DO Work Phone: 1(811) [phone] 15:45-0400Body sxduxw576.18 cmPamelgarrison CrawfordMargoth Other [employer] Other 10-20-2021 15:45-0400Body mass index (BMI) [Ratio] 37.59 kg/j3Jcpcpp Margoth Other [employer] Other 10-20-2021 15:45-0400Body pjtsihxiejc48.2 [degF]Clare Margoth Other [employer] Other 10-20-2021 15:45-0400Body weqspi382.86 kgClare Justin Other [employer] Other 10-20-2021 15:45-0400Respiratory rate18 /minClare Justin Other [employer] Other 10-20-2021 15:45-0071CiF7% (BldA) [Mass fraction]97 % Calre Margoth Other [employer] Other Encounters Encounter DateEncounter TypeCare ProviderFacilityStart: 24-94-7837zfgihdrybw Kathy M. LueFacility:EU [place]walkStart: 06-19-2025 End: 71-92-7060sdtacjfppvCusrxmga Ball DO Work Phone: [facility] Work Phone: Start: 06-19-2025 End: 79-14-1543Lyqnspt encounter procedurePaluciana Jorgensen DEICER FINISHER-[facility] Work Phone: Start: 06-18-2025 End: 51-20-9944tfmxmtcikjVldzu M. LueFacility:EU NorkStart: 06-18-2025 End: 47-55-4557Hxmnwic encounter procedureRosmery Bronson [facility] Start: 06-08-2025 End: 17-93-3289klmrndsynhZhgxkqej Ball DO Work Phone: [facility] Work Phone: Start: 06-08-2025 End: 47-45-0580Wxmpgasi ReferredBenjamin Ball DO-LAB [facility] Start: 06-08-2025 End: 48-12-1285fahewcxesdJywzvbhm Ball DO Work Phone: [facility] Work Phone: Start: 06-08-2025 End: 35-76-7979Ulxxrux encounter procedureBensergeymin Ball DO-[facility] Work Phone: Start: 24-73-1308Kef-patient / Non-visitCatherine Wu SPLITTER HEAD-[facility] Work Phone: Start: 06-02-2025 End: 54-89-2757cipzvdoncqRjdlq M. LueFacility:FTMCStart: 05-18-2025 End: 88-35-4500aozioxzjnlGhrho M. LueFacility:FTMCStart: 05-05-2025 End: 59-97-3689aqlhqkbafkQasyxhkq Pippa DO Work Phone: [facility] Work Phone: Start: 05-05-2025 End: 61-76-7498Eeptkwb encounter procedureShasha Isaac DEICER FINISHER-[facility] Work Phone: Start: 04-27-2025 End: 48-10-7501ohrjfcosgaQuegy M. LueFacility:EU [place]walkStart: 04-27-2025 End: 08-25-0252Ujcysrt encounter procedureRosmery Bronson [facility] Start: 78-17-0012zcepdvaxsoXfdwt LueFacility:EU [place]uskyStart: 12-10-2024 End: 16-48-8816gymniwdknnXevlvuwwrC[facility] Work Phone: Start: 12-10-2024 End: 57-28-4263Sevqmen encounter procedureWilmer Physician [facility] Work Phone: Start: 64-43-0712Epe-patient / Non-visitCritical Access Hospital [facility]ician [facility] Work Phone: Start: 11-30-2024 End: 96-97-4975Yhowmvqbgu and management of inpatientSrachel Ferreira DO Work Phone: [facility] WestComment on above:GallstonesStart: 97-75-1097Pca-patient / Non-visitCritical Access Hospital Physician Group-[facility] Work Phone: Start: 10-21-2024 End: 64-03-1984hgouedlavhRfdlqyaboSt. Elizabeth Hospital Work Phone: Start: 10-21-2024 End: 10-42-0734Emfpsovpn for general adult medical examination without abnormal findingsHolzer Medical Center – Jacksontart: 10-21-2024 End: 59-28-5702Dwgsdlx encounter procedureCritical Access Hospital Physician GroupMercy Health [facility] Work Phone: Start: 06-23-8076Uewvthq encounter statusHolzer Medical Center – Jacksontart: 54-25-6340Ivs-patient / Non-visitCritical Access Hospital Physician GroupProv[facility] Professional [facility] Work Phone: Start: 06-23-2024 End: 02-04-0081jpgmureefcIzgttnyjsC[facility] Clinic [facility] Work Phone: Start: 06-23-2024 End: 03-35-8500Gfgvqgt encounter procedureCritical Access Hospital Physician GroupMercy Health St[facility] Work Phone: Start: 06-13-2024 End: 55-90-2523pqezrutdnkZwhzvdtliC[facility] Clinic [facility] Work Phone: Start: 06-13-2024 End: 47-89-9191Kpwaglt encounter procedureCritical Access Hospital Physician GroupNY[facility] Work Phone: Start: 06-05-2024 End: 69-89-1818Mdfkfv flowsheetCorey Juan DO Work Phone: noms BCP OBStart: 06-05-2024 End: 03-67-7320Xwmknm flowsheetCorey Juan DO Work Phone: noms BCP OBStart: 06-05-2024 End: 79-65-6658Aorcfkcgq Result EncounterCorey Juan DO Work Phone: noms External Department UnsolicitedStart: 06-05-2024 End: 93-72-0100Bermqnb encounter procedureCorey Juan DO Work Phone: NOKX HealthcareStart: 06-05-2024 End: 50-30-7120Xobypwiw preventive med est patient 40-64yrsCorey Juan DO Work Phone: noms BCP OBComment on above:Well woman exam with routine gynecological exam; Breast cancer screening by mammogram; Postmenopausal state; Acute vaginitis; Anorgasmia of femaleStart: 32-94-3132Xjq-patient / Non-visitCritical Access Hospital Physician [facility] Work Phone: Start: 06-05-2024 End: 59-60-3767bcoxglogxkYXKYC FAZIONot AvailableStart: 05-21-2024 End: 81-44-4429hzubbegyaqREE RAMEYNot AvailableStart: 05-05-2024 End: 04-79-2193iaepsmnmzvDcdeiyrykCleveland Clinic [facility] Hospital Work Phone: Start: 05-05-2024 End: 42-43-1962Ukcekoh encounter procedureCritical Access Hospital Physician [facility] Work Phone: Start: 95-75-6778Wvb-patient / Non-visitCritical Access Hospital Physician [facility] Work Phone: Start: 60-36-4645Tqk-patient / Non-visitCritical Access Hospital Physician [facility] Work Phone: Start: 02-01-2024 End: 24-04-4235tvamalvebtFcrilciwlC[facility] Clinic [facility] Work Phone: Start: 02-01-2024 End: 71-86-4714Rgsfilq encounter procedureCritical Access Hospital Physician [facility] Work Phone: Start: 66-73-4767Fal-patient / Non-visitCritical Access Hospital Physician [facility] Professional [facility] Work Phone: Start: 11-13-2023 End: 96-28-2028qcwmmwevqdDgjcwlwh Ball Other [employer] Other Start: 70-84-7311Nenwrxlsz encounterBevandana DasFPCheng Das Medical ClinicStart: 08-21-2023 End: 16-69-6148vbnkwyiieuSicmhnve Ball Other [employer] Other Start: 67-04-3183Zexmooj evaluation of patient and reportBenjamin BallFPG [facility] Medical ClinicStart: 07-11-2023 End: 20-32-0431bcsravnszeWsxcjmgl Ball Other [employer] Other Start: 51-04-8194Tmhhvpkcd encounterBenjamin BallFPG [facility] ClinicStart: 05-28-2023 End: 63-82-5578vjxezuzsmzMcmhvcsb Ball Other [employer] Other Start: 97-61-4158Kbfdle outpatient visit 15 minutes Grady BallFPG [facility] ClinicStart: 05-02-2023 End: 49-01-8045bscpairkcbJvulqvuz Ball Other [employer] Other Start: 79-63-2317Jzdxakq evaluation of patient and reportBenjamin BallFPG [facility] Medical ClinicStart: 02-19-2023 End: 05-86-0482csjqlgkvanZcckmmon Ball Other [employer] Other Start: 13-75-4617Bwkeqp outpatient visit 15 minutes Grady BallFPG [facility] ClinicStart: 02-07-2023 End: 66-19-2185sxupsmzcyvGG GRADY BALLFacility:Q0Hwwdr: 01-23-2023 End: 74-70-0442pdixijdqizOwqdjjfd Ball Other [employer] Other Start: 54-89-7810Krgbcdfoj encounterBenjamin BallFPG [facility] ClinicStart: 12-20-2022 End: 68-63-7954beqibifailKssrgber Ball Other [employer] Other Start: 16-62-9032Mustopy evaluation of patient and reportBenjamin BallParkview Health Bryan Hospital ClinicStart: 12-05-2022 End: 21-57-7740poovipuglxNL GRADY PIPPAFacility:U1Afxiy: 11-30-2022 End: 29-29-6331axgawylaafWL ARMANDO JUAN .Facility:Q6Lykmh: 64-80-8992fqbrvxpkby DR GAINES PIPPAFacility:H6Dwgbi: 11-20-2022 End: 59-46-9308fklgzylvmqNmagyi Dymond Other [employer] Other Start: 29-96-8857Jefvoz outpatient visit 15 minutes Clare JustinHU [facility] Care ClydeStart: 11-16-2022(Televisit) TelevisitGela AngelParkview Health Bryan Hospital ClinicStart: 11-16-2022 End: 73-80-8591aqofjkrbzxDklzid Braun Other [employer] Other Start: 10-25-2022 End: 58-63-3382yqfozzzautMI ARMANDO JUAN .Facility:L2Ljpjs: 10-11-2022 End: 55-80-2439gyxatbkkeeFO ARMANDO JUAN .Facility:X5Zcqpa: 10-11-2022 End: 35-93-1299hnticlmttyFQ GRADY PIPPAFacility:C2Demby: 56-63-1378Twbdycyyt for general adult medical examination without abnormal findingsDR GRADY DAS [facility] Systemtart: 09-25-2022 End: 12-83-4391texvibmewdIE GRADY PIPPAFacility:M7Asqkx: 09-25-2022 End: 09-86-2230Rhtsyldbe for general adult medical examination without abnormal findingsDR GRADY PIPPAFacility:Q1Rnqtu: 51-41-4489Nbkyk health examination Grady Das Other [employer] Other Start: 80-10-8540Xyqjznyrfsqug examination normal Grady Das Other [employer] Other Start: 96-86-2191Ogfirm outpatient visit 15 minutes Grady Das Work Phone: 1(272) [phone]-CwhzeWorthington Medical Center 250 DO Work Phone: Start: 76-44-4979gfbrhqrrshQi. Joao Concepcionformerly [facility], [facility] Facility:[id number]: 07-15-2022 End: 59-08-0630dicftpqsejYOVZWM RODRIGUEZ .Facility:Q0Cavpc: 03-02-2022 End: 31-26-2904Nrkwevu encounter procedureArtmargaret PENN [facility] Start: 02-21-2022 End: 60-93-2515Ggengqq encounter procedureJESAGE HAZEL [facility] Start: 01-01-2022 End: 99-79-3867tvyxpqtmmxDkmehb Dymond Other [place] Other Start: 43-47-4430Loceyz outpatient visit 15 minutes Clare Berg [facility] ClydeStart: 95-39-6188Dnamdl outpatient visit 25 minutesBevandana Toney Pippa Work Phone: [phone]) [phone]-OqzqpWorthington Medical Center 250 DO Work Phone: Start: 74-98-6433buqvddzvrsRzNubia Trimbleyeison Concepcionyoselyn Facility:[id number]: 08-03-2021(URG) Urgent Care VisitPamela MargothFPG [facility] Procedures DateProcedureProcedure DetailPerforming ClinicianStart: 39-19-2088Ijgtp culture Grady Das DO Work Phone: Start: 41-75-6424Mzdsltyssrml partial nephrectomyKatstephen Bronson Start: 67-84-6206YSMGX METABOLIC PANEL W/ REFLEX TO MG FOR LOW KDaniel C Hurst DEICER FINISHER - ENGINEER SYSTEM ADMINISTRATOR Work Phone: Start: 62-75-8975Revnk count complete auto&auto difrntl wbcDaniel C Sofía DEICER FINISHER - ENGINEER SYSTEM ADMINISTRATOR Work Phone: Start: 12-02-2024 End: 91-73-0472Odwjxpxtdzf surg cholecystectomyGlen Arreola MD Work Phone: Start: 71-12-3988Goa abdomen w/o & w/contrast material Glen Arreola MD Work Phone: Start: 47-70-9424Giejl metabolic panel calcium total Corinna M Danuta FOREST PATHOLOGY PROFESSOR Work Phone: Start: 61-69-0416Tkrffzx function panelChristine M Danuta FOREST PATHOLOGY PROFESSOR Work Phone: Start: 83-83-4928Waurq metabolic panel calcium total Cindy QUINTANA Work Phone: Start: 63-55-8811WPV,APTIMA HPV,AGE GDLNCorey Juan DO Work Phone: Start: 95-29-1028TpvnxcqacoaUrese Juan DO Work Phone: Start: 67-07-6107Ywbaonbobkn observation [Identifier] in Cervix by Cyto stainCorey [...] Work Phone: Plan of Treatment DateCare ActivityDetailAuthorStart: 42-25-0563Kxpypbvgw for malignant neoplasm of colonBon Memorial HospitalStart: 90-29-9065Ntetsxpah for malignant neoplasm of cervixNOMS HealthcareStart: 15-19-2970BQeM/Tdap/Td vaccine (2 - Td or Tdap)DTaP/Tdap/Td vaccine (2 - Td or Tdap)[facility] HospitalStart: 50-57-4833Twikp cultureHolzer Medical Center – Jacksontart: 06-08-2025 Bacteria identified in Urine by CultureUrine [facility] Springfieldtart: 35-25-6526Lqasbsdyj for malignant neoplasm of breastBreast cancer screenBon Memorial HospitalStart: 82-41-8112Clqzdxynh for malignant neoplasm of colonNOMS HealthcareStart: 69-93-7218VJKQX-19 Vaccine ( season) COVID-19 Vaccine ()[facility] HospitalStart: 06-15-2024 Influenza vaccinationInfluenza Vaccine (#1)[facility] HealthcareStart: 06-05-2024 End: 38-09-5128BRB Skeletal system Views for bone densityDEXA bone density Imaging Routine Postmenopausal state Expected: 06/05/2024 (Approximate), Expires:06/05/2025NOL[facility] HealthcareComment on above:Expected: 06/05/2024 (Approximate), Expires: 06/05/2025Start: 06-05-2024 End: 87-15-4715ZQ Breast - bilateral ScreeningBilateral screening mammogram Imaging Routine Breast cancer screening by mammogram Expected: 06/05/2024 (Approximate), Expires: 08/05/2025[facility] Work Phone: comment on above:Expected: 06/05/2024 (Approximate), Expires: 08/05/2025Start: 06-05-2024 End: 04-09-4442Pscdqcb encounter rqcpatsmv80/22/2024 11:50 AM EDT Office Visit [facility] [address] [place] [phone] JuanArmando salas, DO [address] [place] [address] ArrivedOROVILLE [facility] OBComment on above:ArrivedStart: 58-94-4896Dgxtsxhzl vaccinationFlu vaccine (#1)[facility] HospitalStart: 76-63-2490Amnibvjjh for malignant neoplasm of breastMammogramSt. Joseph Medical Center Start: 15-89-5690ESR, Provider: Joao Ramírez, Status: Pen, Time: 2:00 PM FUV, Provider: Joao Ramírez, Status: Pen, Time: 2:00 PMMPSt. Gabriel Hospital 250 DO Work Phone: Start: 87-62-6034AQI, Provider: Joao Ramírez, Status: Pen, Time: 1:40 PMFUV, Provider: Joao Ramírez, Status: Pen, Time: 1:40 PMMPSt[address] Gabriel Hospital 250 DO Work Phone: Start: 02-11-4074Ahtlprepkkye 50+ years Vaccine (1 of 1 - PCV)Pneumococcal 50+ years Vaccine (1 of 1 - PCV)[facility] Start: 04-44-2491Wzehyqtd vaccine (1 of 2)Shingles vaccine (1 of 2)[facility] HospitalStart: 27-33-2680Rvkizrxtp for malignant neoplasm of colonBon Memorial HospitalStart: 20-76-3616Dodvf panelLipidsSmyth [facility] Hospital Start: 60-42-5479Execcgyun for malignant neoplasm of cervixBon Memorial HospitalStart: 98-31-1236Bgazmabfw for malignant neoplasm of cervixPap smearBon Memorial HospitalStart: 87-27-8064Rcyhtiqye B vaccine (1 of 3 - 19+ 3-dose series)Hepatitis B vaccine (1 of 3 - 19+ 3-dose series)[facility] Start: 42-09-5517Wmpqwwidd C screeningHepatitis C [facility] Start: 59-94-2813ZUT screeningHIV [facility] HospitalStart: 19-22-2143Fxkungpeji ScreenDepression [facility] CenterStart: 35-14-2173Aqkbwkrsx for malignant neoplasm of colonAMERICAN FORK HOS[facility]ITAL HealthcareOxygen therapy [Minimum Data Set]Initiate Oxygen Therapy Protocol Respiratory Care Routine As Needed until discontinued starting 11/30/2024[facility] on above:As Needed until discontinued starting 11/30/2024Pathology studySurgical Pathology Lab Routine Gallstones Release Upon Ordering for 1 Occurrences starting 12/02/2024[facility] on above:Release Upon Ordering for 1 Occurrences starting 12/02/2024 End: 32-09-5418UPQGMPXF PATHOLOGY REPORTSURGICAL PATHOLOGY REPORT Lab Routine Once for 1 Occurrences starting 12/02/2024 until 12/02/2024[facility] on above:Once for 1 Occurrences starting 12/02/2024 until 12/02/2024THIN PREP TIS PAP AND HR HPV DNATHIN PREP TIS PAP AND HR HPV DNA Pathology and Cytology Routine Well woman exam with routine gynecological exam Ordered: 06/05/2024[facility] on above:Ordered: 06/05/2024[facility] Immunizations Immunization DateImmunizationNotesCare FcwxosudPbxeopor32-41-7543Zsetfh-GroEIvjg COVID-19 Vacc 30 MCG/0.3ML Intramuscular SuspensionBenjamin E Ball Work Phone: mp190-0340PM-MjnpgEssentia Health 250 DO Work Phone: 1([phone]) [phone]-JpnWXkay COVID-19 Vacc 30 MCG/0.3ML Intramuscular SuspensionBenjamin E Ball Work Phone: mpSt. Gabriel Hospital 250 DO Work Phone: 1(593) [phone]cglxfr, intradermal, quadrivalent, preservative free, injectableBenjamin E Ball Work Phone: mp661-6156NX-XmqqxAndrew [place] [address] DO Work Phone: 1(235) [phone]ethe toxoid, reduced diphtheria toxoid, and acellular pertussis vaccine, adsorbedBenjamin E Ball Work Phone: mpAndrew [place] [address] DO Work Phone: 1(995) [phone]vclxdk virus vaccine, unspecified formulationCorey Juan DO Work Phone: [facility] Gihwqzvtqr94-22-8856dbspd wgrqxbmez-I8Y3-73, preservative-free, injectableBenjamin E Ball Work Phone: [phone]-SzpjtAndrew [place] [address] DO Work Phone: Payers DatePayer CategoryPayerPolicy [id number] Health Insurance [id number] Lcxhggx38-34-8706YbbxTohatchi Health Care [id number] 2..1.149368.19 [id number] 2..1.314400.3.579.2.27451-41-5664Khbxtnm [id number] 2..1.077417.3.57[id number] 2..1.000894.3.57[id number] 2.0.1.999383.3.57[id number] 2.840.1.964730.3.579.[id number] 2.840.1.291554.3.57[id number] 2.16.840.1.993172.3.57[id number] 2.16.840.1.853804.3.579.[id number] 2.16.840.1.266853.3.579.2.96421-72-7822Xdyfxvc6926733 2.16.840.1.131649.3.579.2.5[id number] 2.16.840.1.351859.3.57[id number] 2.840.1.873090.3.579.[id number] 2.840.1.228256.3.579.2.076[id number] 2..840.1.207743.3.57[id number] 2.840.1.802210.3.57[id number] 2.840.1.396725.3.57[id number] 2..840.1.328278.3.57[id number] 2..840.1.213439.3.57[id number] 2..840.1.639466.3.57[id number] 2.840.1.385708.3.57[id number] 2.16.840.1.918625.3.579.2.727 [id number] 2.16.840.1.774382.19 75-66-3139Cygj-[id number] 2.1[id number] 2.16.840.1.966252.3.579.2.531 Social History DateTypeDetailFacilityStart: 11-30-2024 End: 14-97-5972Cs alcohol useNo alcohol useNonortheast miss[facility] [place] Other Start: 02-21-2022 End: 20-53-7057Hlsbsdt smoking statusNever smoked tobacco (finding)[facility] dotloop Tobacco smoking statusNeverExecutive Urology [facility] dotloop Start: 11-30-2024 End: 05-81-0325Wwb Assigned At [facility] [employer] [place] Other Start: 22-17-6040Egb Assigned At [facility] CenterTobacco smoking status NHISTobacco smoking consumption unknownNOLA HealthcareStart: 10-35-5163Qdc assigned at birthNot on fileAMERICAN FORK HOSPITAL HealthcareStart: 01-26-2010 End: 48-58-4113IkrTiuqxr (finding)[facility]sontart: 90-82-0696Nmoxidm use and exposureSmokeless tobacco non-userBon Sift ShoppingStart: 39-50-7524Sygvwdapv beverage intakeEx-drinker (finding)[facility] ShoppingHas the LevelUp, gas, oil, or water company threatened to shut off services in your home in past 12MoNoBon [employer]pping(I/We) worried whether (my/our) food would run out before (I/we) got money to buy more.Never trueBon [employer]ift ShoppingSexual OrientationExec[facility] Ilda Start: 97-36-0759UmfYxnj (finding)[facility] Medical Equipment Procedure CodeEquipment CodeEquipment Original TextEquipment IdentifierDatesClip Int L Polymer Lexx Lig Hem O Lexx (6ea/Pk) - [id number], [id number] FDAStart: 12-02-2024 Clinical Notes 08-03-2021 to 06-18-2025 Note Date & DoorBrfyNwebqcnm90-72-0983 Hospital Discharge instructions Patient Education 06/18/2025 09:24:48 [...] may need more sleep. General instructions Take xnxc-tws-iulerla and prescription medicines only as told by your health care provider. Consider joining a support group. This can help you cope with the stress of having kidney cancer. Work with your health care provider to manage any side effects of treatment. Keep all follow-up visits. Your health care provider will want to make sure your treatment is working. Where to find more information [place] [employer]: cancer.org National Cancer [place] (NCI): cancer.gov Contact a health care provider [...] provider. Document Revised: 03/13/2023 Document Reviewed: 03/13/2023 [employer] Patient Education 2023 [email or web address]. Follow Up Care 06/03/2025 09:28:49 With:Audie MADERA, BELKIS Bain, URO Address: [address], [facility] [place] [address] [phone] When: Unknown Comments:3 mos w/ CT Abd w/wo con, CXR, CMP [facility] 09-04-2025 NotePatient Education Oncology Kidney Cancer Kidney [...] need more sleep. General instructions ??? Take hdyl-mfj-rdeloau and prescription medicines only as told by [...] working. Where to find more information ??? [place]: cancer.org ??? [employer] [place] (NCI): cancer.gov Contact a health care provider [...] short of breath. ?? (more content not included)...[facility]08-21-2025 Note Progress Note-Physician Patient: JENNIFER ZAMORA Age: [...] Unspecified urethral stricture, female / SNOMED CT [id number] / Confirmed Renal mass / SNOMED CT [id number] / Confirmed Recurrent UTI / SNOMED CT [id number] / Confirmed Hypertension / SNOMED CT [id number] / Confirmed Histories Procedure history: Appendectomy ([id number]). Hysterectomy (027398600). Tubal ligation (929746681). Cholecystectomy; (15565). Social History Social & Psychosocial Habits Tobacco 04/27/2025 Tobacco Use: Never (less than 100 in l Smokeless tobacco use: Never . Physical Examination Airway: Mallampati classification: II (soft palate, fauces, uvula visible). Respiratory: adequate air exchange. Cardiovascular: Regular rhythm. Plan [place] [employer] Anesthesiologists (ASA) physical status classification: Class II. Anesthetic Preoperative Plan: Anesthesia General, and Patient educated on benefits, alternatives and inherent risk of anesthesia including, but not all inclusive, Allergic reactions, dental damage, nerve damage and cardio-pulmonary complications and wishes to proceed with anesthetic plan..[facility] HealthComment on above:Result Comment: Electronically Signed By: Fabián Campbell Jr, DO\.br\Date and Time Signed: 06/04/25 12:14 [id number] NoteProgress Note-Physician Patient: JENNIFER ZAMORA Age: 54 years Sex: Female : 1970 Associated Diagnoses: None Author: Fabiná Campbell Jr, DO Postoperative Information Postoperative disposition: [...] Discharge when meets criteria ( To home ).[facility] HealthComment on above:Result Comment: Electronically Signed By: Fabián [...] these instructions at home: Medicines ??? Take wnxv-mke-wukudxs and prescription medicines only as told by your health care provider. ??? Avoid using NSAIDs regularly over a long period of time. These include aspirin and ibuprofen. Doing so may damage your remaining kidney. -Tylenol 650-1000 mg every 6 hours as needed for pain. [place] for severe uncontrolled pain. These have 325 [...] keep your urine pale yellow. ? Take hrrz-wzp-gaajjyh or prescription medicines - Colace/Senna to prevent [...] and water are not available, use hand investor relations analyst. ? Change your dressing as told by [...] and water are not available, use hand investor relations analyst. ??? Empty the drainage bag every 2???4 [...] visits. This is important. (more content not included)...[facility] Note Discharge Summary Patient: JENNIFER ZAMORA Age: [...] % HI Lymph Auto 11.8 % LOW Beauregard Auto 6.9 % Eos Auto 0.0 % Basophil Auto 0.1 % Neutro Absolute 7.4 E9/L Lymph Absolute 1.1 E9/L Beauregard Absolute 0.6 E9/L Eos Absolute 0.0 E9/L [...] care of family member. Prescriptions: called to pharmacy.[facility] HealthComment on above: Result Comment: Electronically Signed By: Audie MADERA, Rosmery Mckay\.br\Date and Time Signed: 06/03/25 12:[id number] NotePatient Education - Text Nephrology Minimally Invasive [...] these instructions at home: Medicines ??? Take owjd-xdp-uyoftjm and prescription medicines only as told by your health care provider. ??? Avoid using NSAIDs regularly over a long period of time. These include aspirin and ibuprofen. Doing so may damage your remaining kidney. -Tylenol 650-1000 mg every 6 hours as needed for pain. [place] for severe uncontrolled pain. These have 325 [...] keep your urine pale yellow. ? Take glmo-nem-ptunger or prescription medicines - Colace/Senna ? Eat [...] and water are not available, use hand investor relations analyst. ? Change your dressing as told by [...] and water are not available, use hand investor relations analyst. ??? Empty the drainage bag every 2???4 [...] your pain medicine. ?? (more content not included)...[facility] Note History and Physical Patient: JENNIFER ZAMORA [...] mcg oral capsule: cap(s), Oral, Refill(s) 0 [place]-3 Fish Oil 1000 mg oral capsule: mg [...] list: All Problems Hypertension / SNOMED CT 6974574792 / Confirmed Recurrent UTI / SNOMED CT 502935162 / Confirmed Renal mass / SNOMED CT 092868406 / Confirmed Unspecified urethral stricture, female / SNOMED CT 113071402 / Confirmed Histories Past Medical History: No active or resolved past medical history items have been selected or recorded. Family History: Hypertension Mother Stroke Mother Diabetes clinic Mother High cholesterol Father Procedure history: Appendectomy (782058709). Hysterectomy (586197045). Tubal ligation (077952284). Cholecystectomy; (45950). Social History Social & Psychosocial Habits Tobacco [...] per clinic note, risks/benefits previously discussed and documentedParkview HealthComment on above:Result Comment: Electronically Signed By: Audie MADERA, Rosmery Shea.alan\Date and Time Signed: 06/02/25 08:[id number] Evaluation note* Diagnosis Onset Date Resolution Status Admit Date Urinary frequency noneactiveJuly 2024 2:40pmAcute non-recurrent maxillary sinusitis noneactiveJuly 2024 2:40pmH/O partial cehnwknxukp2527ropawFecpcz 2024 8:28amHypertensionacuteAugust 2024 8:28amRenal mass, rightacuteAugust 2024 8:28amS/P cholecystectomynoneactiveAugust 2024 8:28am [facility] Work Phone: 1(559) 892-307607-22-2025 Evaluation note* Diagnosis Onset Date Resolution Status Admit Date Urinary frequency noneactiveJuly 2024 2:40pmAcute non-recurrent maxillary sinusitis noneactiveJuly 2024 2:40pmConstipationacuteAugust 2024 8:28amDysuria acuteAugust 2024 8:28amH/O partial kfokielbcio5899hmbiuNuxlkk 2024 8:28amHypertensionacuteAugust 2024 8:28amMetabolic dysfunction-associated steatotic liver disease (MASLD)acuteAugust 2024 8:28amPrimary insomnia acuteAugust 2024 8:28amRenal mass, rightacuteAugust 2024 8:28amS/P cholecystectomynoneactiveAugust 2024 8:28am [facility] Work Phone: 1(929) 591-401707-14-2025 Hospital Discharge instructions Patient Education 04/27/2025 13:29:04 [...] provider gives to you. In general: Take lcfu-bux-ooffblt and prescription medicines only as told by [...] provider. Document Revised: 03/28/2021 Document Reviewed: 03/28/2021 [employer] Patient Education 2023 [employer]. 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 referral for disorders of kidneys ans ureter [...] the potential for systemic events such as GA, PE, and gas embolism which can all [...] With When Contact [employer] (more content not included)...[facility] HealthComment on above:Result Comment: Electronically Signed By: Rosmery Bronson MD\.br\Date and Time Signed: 04/27/25 14:16EDT\.br\Electronically Co-Signed By: Erika Flores\.br\Date and Time Co-Signed: 04/27/25 13:51 EDT\.br\Electronically Co-Signed By: Erika Flores\.br\Date and Time Co- Signed: 04/27/25 13:52 [id number] NotePatient Education Urology Renal Mass A renal [...] gives to you. In general: ??? Take hnhn-cpo-rxvynnl and prescription medicines only as told by [...] provider. Document Revised: 03/28/2021 Document Reviewed: 03/28/2021 [employer] Patient Education ? 2023 [employer].[facility] 12-03-2024 History of Present illness Narrative* Aria Miles RN - 12/03/2024 3:05 PM EST This underwriter mortgage loan went over AVS answered all questions at [...] from the original note were not included. [facility] Office: [phone] Matt Sawyer DO, Jason Riggins DO, Krish Ferreira DO, Holger Argueta DO, Gato Figueredo MD, Alison Garcia MD, Flavia Meza MD, Melissa Perez MD, Jori Cornejo MD, Shea Toro MD, Naseem Washington MD, Edmond Garebr DO, Gucci Pope MD, Michael Fernando MD, [...] Hunter CNP, Hardeep Manzanares CNP, Kayla Alvarez, AUTO BODY REPAIR TECHNICIAN, Magui Toro, AUTO BODY REPAIR TECHNICIAN, Shasha Watson, AUTO BODY REPAIR TECHNICIAN,Sanjana Decker, MULTIMEDIA DESIGNER, Chiquita Rebolledo, AUTO BODY REPAIR TECHNICIAN, Joslyn Tabor, AUTO BODY REPAIR TECHNICIAN, Kayce Virk, AUTO BODY REPAIR TECHNICIAN [facility] IN-PATIENT SERVICE [facility] Progress Note 12/03/2024 10:08 AM Name: Jennifer Zamora Acct: [id number] Room: IP Day: 3 Admit Date: 11/30/2024 [...] History: 11/30 - Pt is transferred from [facility] for Biliary ductal stone and renal mass [...] , PHART , PH , POCPCO2 , FVT7EMT , PCO2 , POCPO2 , PO2ART , PO2 , POCHCO3 , QTC7MHC , HCO3 , NBEA , PBEA , BEART , BE , THGBART , THB , DBM3OLC , BAWW2QYR , B4XZUCXL , O2SAT , FIO2 No results found [...] Q8h for treatment of Intra-abdominal Infection. Per [facility] Extended Infusion Beta-Lactam Policy, piperacillin/tazobactam will be [...] from the original note were not included. [facility] Office: [phone] Matt Sawyer DO, Jason Riggins DO, Krish [...] Rome, JOSEP, Christy Slater CNP, Jagruti Argueta, AUTO BODY REPAIR TECHNICIAN, Cindy Kapadia PA-C, Zara Hunter, AUTO BODY REPAIR TECHNICIAN, Hardeep Manzanares, AUTO BODY REPAIR TECHNICIAN, Kayla Alvarez, AUTO BODY REPAIR TECHNICIAN, Magui Toro, AUTO BODY REPAIR TECHNICIAN, Shasha Watson, AUTO BODY REPAIR TECHNICIAN,Sanjana Decker, MULTIMEDIA DESIGNER, Chiquita Rebolledo, AUTO BODY REPAIR TECHNICIAN, Joslyn Tabor, AUTO BODY REPAIR TECHNICIAN, Kayce Virk, AUTO BODY REPAIR TECHNICIAN [facility] IN-PATIENT SERVICE [facility] Progress Note 12/02/2024 10:57 AM Name: Jennifer Zamora Acct: [id number] Room: IP Day: 2 Admit Date: 11/30/2024 9:13 PM PCP: Grady Das, Code Status: Full Code Subjective: C/C: Abdominal discomfort Interval History Status: improved. Pain is better controlled. GI on board and plan for MRCP. General surgery on board and tentatively plan for OR tomorrow. Will need outpatient follow-up for surveillance of renal mass. Brief History: 11/30 - Pt is transferred from [facility] for Biliary ductal stone and renal mass [...] , PHART , PH , POCPCO2 , PON8SJN , PCO2 , POCPO2 , PO2ART , PO2 , POCHCO3 , DHE1XFM , HCO3 , NBEA , PBEA , BEART , BE , THGBART , THB , OUU4LJS , KFUK1DHA , B5TVJTXF , O2SAT , FIO2 No results found [...] Patient: Jennifer Zamora : 1970 Date: 12/02/2024 Railcar Brake Operator: Deon Dillard MD Subjective: Patient sleeping comfortably [...] said this has never happened before. The cable television line technician saidshe won't be able to try again tonight and will call tomorrow morning to see if patient is willing.Patient says she's willing tomorrow if she can have something first. Tello Gore notified and Ativan ordered for prior to MRI/MRCP * Luigi Gore APRN - ASHLEIGH - 12/01/2024 2:05 PM EST Images from the original note were not included. [facility] Office: [phone] Matt Sawyer DO, Jason Riggins DO, Krish [...] Almanzar MD, Evan Almnazar MD, Shanae Brady, JOSEP, Krissy Batres, AUTO BODY REPAIR TECHNICIAN, Luigi Gore, AUTO BODY REPAIR TECHNICIAN, Twyla Hardy, DNP, Keturah Del Cid, AUTO BODY REPAIR TECHNICIAN, Luciana Rome, AUTO BODY REPAIR TECHNICIAN, Christy Slater, AUTO BODY REPAIR TECHNICIAN, Jagruti Argueta, AUTO BODY REPAIR TECHNICIAN, MARIANO Tamez-C, Zara Hunter, AUTO BODY REPAIR TECHNICIAN, Hardeep Manzanares, AUTO BODY REPAIR TECHNICIAN, Kayla Alvarez, AUTO BODY REPAIR TECHNICIAN, Magui Toro, AUTO BODY REPAIR TECHNICIAN, Shasha Watson, AUTO BODY REPAIR TECHNICIAN,Sanjana Decker, MULTIMEDIA DESIGNER, Chiquita Rebolledo AUTO BODY REPAIR TECHNICIAN, Joslyn Tabor AUTO BODY REPAIR TECHNICIAN, Kayce Virk, AUTO BODY REPAIR TECHNICIAN [facility] IN-PATIENT SERVICE [facility] Progress Note 12/01/2024 2:31 PM Name: Jennifer Zamora Acct: [id number] Room: Day: 1 Admit Date: 11/30/2024 9:13 PM PCP: Grady Das DO Code Status: Full Code Subjective: C/C: Abdominal discomfort Interval History Status: improved. Pain is better controlled. GI on board and plan for MRCP. General surgery on board and tentatively plan for OR tomorrow. Will need outpatient follow-up for surveillance of renal mass. Brief History: 11/30 - Pt is transferred from [facility] for Biliary ductal stone and renal mass [...] , PHART , PH , POCPCO2 , BEH6KAC , PCO2 , POCPO2 , PO2ART , PO2 , POCHCO3 , ENZ8OXS , HCO3 , NBEA , PBEA , BEART , BE , THGBART , THB , HVD2JPZ , SLPL9VTZ , D3BKPONW , O2SAT , FIO2 No results found [...] PM EST Pt admitted to room from [facility] Oriented to room and call [...] Care Everywhere were reviewed [facility] Discharge instructions* Discharge Instr - ANTONY* Aria Miles RN - 12/03/2024 12:32 PM EST * Attachments The following attachments cannot be sent through Care Everywhere. * Cholecystectomy: General Info (Niuean) * Cholecystectomy: Post-op (Niuean) * Pancreatitis: Acute: General Info (Niuean) * Surgical Site Infections: Prevention: General Info (Niuean) * Cyclobenzaprine (Niuean) * methylprednisolone (oral) (Niuean) documented in [facility] course Narrative* Luigi Gore APRN - NP - 12/03/2024 10:19 AM EST Images from the original note were not included. [facility] Office: [phone] Matt Sawyer DO, Jason Riggins DO, Krish [...] Joel Bonilla MD, Shekhar Ruiz MD, Tania uCevas MD, Tamia Tam MD, Karla Vivas MD, Pratik Spear MD, Claudio Mcnally MD, Luigi Richter DO, Asher Mathis MD, Edmond Almanzar MD, Evan Almanzar MD, Shanae Brady, AUTO BODY REPAIR TECHNICIAN, Krissy Batres, AUTO BODY REPAIR TECHNICIAN, Luigi Gore, AUTO BODY REPAIR TECHNICIAN, Twyla Hardy, ARSH, Keturah Del Cid, AUTO BODY REPAIR TECHNICIAN, Luciana Rome, AUTO BODY REPAIR TECHNICIAN, Christy Slater, AUTO BODY REPAIR TECHNICIAN, Jagruti Argueta, AUTO BODY REPAIR TECHNICIAN, MARIANO Tamez-C, Zara Hunter, AUTO BODY REPAIR TECHNICIAN, Hardeep Manzanares, AUTO BODY REPAIR TECHNICIAN, Kayla Alvarez, AUTO BODY REPAIR TECHNICIAN, Magui Toro, AUTO BODY REPAIR TECHNICIAN, Shasha Watson, AUTO BODY REPAIR TECHNICIAN,Sanjana Decker, MULTIMEDIA DESIGNER, Chiquita Rebolledo, AUTO BODY REPAIR TECHNICIAN, Joslyn Tabor, AUTO BODY REPAIR TECHNICIAN, Kayce Virk, AUTO BODY REPAIR TECHNICIAN [facility] IN-PATIENT SERVICE [facility] Discharge Summary Patient ID: Jennifer Zamora : 1970 ACCOUNT: [id number] Patient's PCP: Grady Das DO Admit Date: [...] file. 11/30 - Pt is transferred from [facility] for Biliary ductal stone and renal mass [...] Up: \ Grady Das DO [address] [facility] [address] Follow up in 1 month(s) [...] Your Medications These medications were sent to [facility] [address] [place] [address] - [phone] - [phone] [place] [id number] cyclobenzaprine 10 MG tablet methylPREDNISolone 4 MG [...] this patient's care. [facility]* Diagnosis Onset Date Resolution Status Admit Date Hypertension acuteOctuary 2024 2:52pmMajor depressionacuteOctober 21, 2024 2:52pm PalpitationsacuteOctober 21, 2024 2:52pmPrimary insomniaacuteOctober 21, 2024 2:52pmScreening for colon canceracuteOctober 21, 2024 2:52pmScreening mammogram for breast canceracuteOctober 21, 2024 2:52pmWellness examinationacuteOctober 21, 2024 2:52pmHypertensionacuteFebruary 2024 2:30pmMajor depressionacute February 2024 2:30pmPrimary insomniaacuteFebruary 2024 2:30pmRenal mass, rightacuteFebruary 2024 2:30pmS/P cholecystectomynoneactiveFebruary 2024 2:30pm [facility] Work Phone: 1(351) 470-775708-22-2024 History of Present illness Narrative* Mita Watson, SPEEDER FRAME TENDER - 06/05/2024 11:50 AM EDT Reason for Appointment: Patient ID: Jennifer aZmora is a 53 y.o. female who presents for [facility] Women Visit Patient presents today for Annual [...] nursing note reviewed. Exam conducted with a superintendent of generation present. Vitals: Estimated body mass index is [...] inability to climax. Will send order to [facility] for Progesterone/Testosterone cream to be compounded. [...] of: Armando Martinez DO documented in this encounterSt. Joseph Medical CenterLrranxixzb85-36-3550 Evaluation note* Encounter Date Diagnosis Assessment Notes Treatment Notes Treatment Clinical Notes Aug, Seasonal allergies (ICD-10 - J30 .2) [facility] Other 08-14-2023 Evaluation note* Encounter Date Diagnosis Assessment Notes Treatment Notes Treatment Clinical Notes May, Acute bacterial conjunctivitis o f left eye (ICD-10 - H10.32) Use artificial tears as much as possible. Use warm washcloth to remove crusting debris from lashes May,ysfunction of left eustachian tube (ICD-10 - H69.92)Flonase and Claritin D. Valsalva to open ET [facility] Other 07-19-2023 Evaluation note* Encounter Date Diagnosis Assessment Notes Treatment Notes Treatment Clinical Notes Apr, Seasonal allergic rhinitis, unsp ecified trigger (ICD-10 - J30.2) [facility] Other 05-08-2023 Evaluation note* Encounter Date Diagnosis [...] routine February,OtherHealthy diet, exercise and keep active [facility] Other 04-26-2023 NotePROCEDURE: XR FOOT RT MIN [...] Electronically authenticated by: LAM DORSEY Date: 2023-02-07 12[facility]23[facility] NotePROCEDURE: XR ANKLE RT MIN 3 VIEWS DATE: 02/07/2023 10:24 AM CDT COMPARISONS: None CLINICAL INDICATION: Right ankle pain. FINDINGS: There is no evidence of fractures or other osseous abnormalities. The ankle mortise is intact. IMPRESSION: Right ankle radiographs show no evidence of significant abnormalities. Electronically authenticated by: LAM DORSEY Date: 2023-02-07 12:19[facility] [id number] Evaluation note* Encounter Date Diagnosis Assessment Notes Treatment Notes Treatment Clinical Notes Dec, Seasonal allergic rhinitis, unsp ecified trigger (ICD-10 - J30.2) [facility] Other 02-06-2023 Evaluation note* Encounter Date Diagnosis [...] no improvement in 2 to 3 days. [facility] Other 02-02-2023 Evaluation note* Encounter Date Diagnosis Assessment Notes Treatment Notes Treatment Clinical Notes Nov, Acute cystitis without hematuria (ICD-10 - N30.00) Discussed that bactrim could address her sinusitis symptoms as well. Take tylenol for body aches. Pt unable to provide a UA due to her work responsibilties. [facility] Other 05-19-2022 Hospital Discharge instructions Patient Education [...] Up Care 02/21/2022 15:13:40 With:MABLE HAZEL Address: [address] [place] [address] [facility] (1) When:6 weeks Comments:Call for followup appointment. Please finish your antibiotics. Monitor the urinary pattern after the dilation today. [facility]05-09-2022 Hospital Discharge instructions Patient Education 02/20/2022 14:38:38 Urinary Tract Infection, Adult, Ojjx-wk-Lasa Urinary Tract Infection, Adult A urinary tract [...] Follow these instructions at home: Medicines Take oult-gdq-eknersm and prescription medicines only as told by [...] 03/19/2009 Document Revised: 09/18/2019 Document Reviewed: 04/10/2019 [employer] Patient Education 2020 [employer]. Follow Up Care 01/31/2022 10:31:51 With:CHARLEE OSCAR, MABLE Toney, URL Address: [address] [place] [address] When: Unknown Comments:Will schedule Cysto [facility] 03-20-2022 Evaluation note* Encounter Date Diagnosis Assessment Notes Treatment Notes Treatment Clinical Notes Dec, Dysuria (ICD-10 - R30.0) Dec,Urinary tract infection, site not specified (ICD-10 - N39.0) Drink plenty fluids, get plenty of rest. Take the Macrobid as prescribed until gone. Take the Diflucan as prescribed until gone. Continue to take the bmto-myz-qrdcwbj Azo for your symptoms. Follow-upwith your physician if no improvement in 2 to 3 days. Dec,Hematuria, unspecified (ICD-10 - R31.9) [facility] Other 10-20-2021 Evaluation note* Encounter Date Diagnosis [...] writting by CDC Care At Home document. [place] [employer] Other Evaluation + Plan note Future Appointments Appointment Date:02/23/2022 09:45:00 AM Scheduled Provider: Location:[facility] Appointment Type:Urology CALL PAT FT Appointment Date:03/02/2022 11:00:00 AM Scheduled Provider: Location:[facility] Appointment Type:Urology FT [facility] Evaluation + Plan note Future Appointments Appointment Date:04/13/2022 03:15:00 PM Scheduled Provider:MABLE HAZEL PA-C Location:[facility] Future Appointments Appointment Date:09/24/2025 01:00:00 PM Scheduled Provider:Rosmery Bronson MD Location:[facility] Appointment Type:URO Office Visit Future Scheduled Tests Laboratory* Comprehensive Metabolic Panel 09/17/25 Radiology* CT Abdomen w/ + w/o Contrast 09/17/25 * XR Chest 2 Views 09/17/25 [facility] Evaluation noteNo InformationNortWellSpan Waynes[facility] Hospital [employer] Other Evaluation noteNo assessment information available [facility] Work Phone: Evaluation note* Diagnosis Onset Date Resolution Status Acute frontal sinusitis acute [facility] Work Phone: Evaluation note* Diagnosis Onset Date Resolution Status Acute frontal sinusitis acuteHypertensionacuteMajor depressionacutePalpitationsacute [facility] Work Phone: Evaluation note* Diagnosis Well woman exam with routine gynecological exam Routine gynecological examination Breast cancer screening by mammogram Postmenopausal state Asymptomatic postmenopausal status (age-related) (natural) Acute vaginitis Unspecified vaginitis and vulvovaginitis Anorgasmia of female documented in this encounter [facility] HealthcareEvaluation note* Diagnosis Onset Date Resolution Status Admit Date Hypertension acuteJanuary 2024 2:52pmMajor depressionacuteJanuary 2024 2:52pm PalpitationsacuteJanuary 2024 2:52pmScreening mammogram for breast cancer acuteJanuary 2024 2:52pmWellness examinationacuteJanuary 2024 2:52pm [facility] Work Phone: Evaluation note* Diagnosis Acute biliary pancreatitis without infection or necrosis- Primary Gallstones Calculus of gallbladder without mention of cholecystitis or obstruction Hypertension Unspecified essential hypertension Renal mass Unspecified disorder of kidney and ureter Pancreatitis, unspecified pancreatitis type documented in this encounter [facility]His[facility] general Narrative - Reported* Type Description Date Medical History Hypertension Medical HistoryADHDMedical Historychronic depressionMedical Historyheart palpitationsSurgical HistoryC sectionSurgical HistoryhysterectomySurgical HistoryappendectomyHospitalization Historysee above [facility] Other History general Narrative - Reported* Type [...] vertigo, unspecified lateralitySurgical HistoryC sectionSurgical HistoryhysterectomySurgical History uwvtzckhbget8349Qcsqrusghveapay Historysee above [facility] Other History of Present illness Narrative* Patient [...] month or earlier if the need arise [facility] [address] DO Work Phone: History of [...] year with plan to repeat her EKG -[facility] 250 DO Work Phone: Hospital course Narrative No data available for this section [facility] Progress note No data available for this section [facility] Reason for referral (narrative)No reason for referral information availableZanesville City Hospital Work Phone: Reason for visit Narrative* Auth/CertSpecialty Diagnoses / ProceduresReferred By ContactReferred To Contact Diagnoses Acute biliary pancreatitis without infection or necrosis Pancreatitis Krish Ferreira, [address] [facility] [address] [place] [address] Referral IDStatusReasonStart DateExpiration DateVisits RequestedVisits [id number] [facility] Summary Purpose Family History No Family [...] shot congestion,headache,(smell coming from nose?) depression medication [phone] for VisitAcute frontal sinusitis Hypertension Major depression Palpitations Chief Complaint Admit Date Wellness October 21, 2024 2: 52pm Reason for Visit Admit Date Hypertension October 21, 2024 2: 52pm Major depression October 21, 2024 2: 52pm Palpitations October 21, 2024 2: 52pm Screening mammogram for breast cancer [facility] 2024 2:52pm Wellness examination [...] 2:52pm Screening mammogram for breast cancer [facility] 2024 2:52pm Wellness examination [...] Documentation June 03, 2025 1: 24pm [facility] F/U/Reminded Pt June 08, 2025 8:28am [...] section and content) DATE CREATED AUTHOR 04/09/2021 [facility] DATE CREATED AUTHOR AUTHOR'S ORGANIZ ATION 07/19/2022 [facility] DATE CREATED AUTHOR AUTHOR'S ORGANIZ ATION 07/19/2022 [facility] DATE CREATED AUTHOR AUTHOR'S ORGANIZ ATION 02/16/2023 [facility] DATE CREATED AUTHOR AUTHOR'S ORGANIZ ATION 06/07/2024 [facility] DATE CREATED AUTHOR AUTHOR'S ORGANIZ ATION 12/13/2024 [facility] DATE CREATED AUTHOR AUTHOR'S ORGANIZ ATION 05/20/2025 [facility] DATE CREATED AUTHOR AUTHOR'S ORGANIZ ATION 05/21/2025 [facility] DATE CREATED AUTHOR AUTHOR'S ORGANIZ ATION 06/03/2025 [facility] DATE CREATED AUTHOR AUTHOR'S ORGANIZ ATION 06/04/2025 [facility] DATE CREATED AUTHOR AUTHOR'S ORGANIZ ATION 06/13/2025 [facility] DATE CREATED AUTHOR AUTHOR'S ORGANIZ ATION 06/19/2025 [facility] DATE CREATED AUTHOR AUTHOR'S ORGANIZ ATION 06/20/2025 [facility] REASON FOR VISIT (unrecogniz ed section [...] Provider Active Start: January 08, 2024 Barb aGrcia ProviderActiveStart: January 08, 2024 Team Status: Inactive [...] MemberRelationshipSpecialtyStart DateEnd Date Grady Das DO [address] [place] [id number] PCP - GeneralInternal Medicine11/30/24 Team Status: Active [...] Member Role Status Dates KASSANDRA Kang RN ENGINEER SYSTEM ADMINISTRATOR-C Attending Provider Active Start: June End: June 19Lamine Willams [facility] ProviderActiveStart: June 19, 2025 End: June 19, [...] at 0900, Apply patch to back. The pusher runner's recommendations for the number of patches that can be applied within a 24-hour period varies from 1 to 4 times daily and the duration of application varies from 8 to 24 hours; refer to the pusher runner's labeling for product-specific recommendations. * 0941 (Patch [...] Miles RN) * 1330 (Stopped - Provider: Arai Miles RN) * 1700 (Due) piperacillin-tazobactam (ZOSYN) [...] (Given - Provider: Carin Pulido RN) Medication Order/18/[id number]/03/2024 lactated ringers infusion ()(Linked Group 2) IntraVENous, [...] rate field of order. * 1431 ([facility] Hold - Provider: [facility] - Reason: Unreviewed Transfer Orders) * 1813 ([facility] Unhold - Provider: Aria Miles RN) BUPivacaine-EPINEPHrine PF (MARCAINE-w/EPINEPHrine) 0.5% -[id number] injection (CANCELED) PRN, Starting on Sun12/02/24 at [...] Provider: Aria Miles RN) * 1431 ([facility] Hold - Provider: [facility] [employer] - Reason: Unreviewed Transfer Orders) * 1813 ([facility] Unhold - Provider: Aria Miles RN) * [...] Provider: Carin Pulido RN) * 143 ([facility] Hold - Provider: [facility] [employer] - Reason: Unreviewed Transfer Orders) * 181 ([facility] Unhold - Provider: Aria Miles RN) magnesium [...] CrCl less than 30mL/min * 143 ([facility] Hold - Provider: [facility] [employer] - Reason: Unreviewed Transfer Orders) * 1812 ([facility] Unhold - Provider: Aria Miles RN) morphine [...] Provider: Carin Pulido RN) * 143 ([facility] Hold - Provider: [facility] [employer] - Reason: Unreviewed Transfer Orders) * 181 ([facility] Unhold - Provider: Aria Miles RN) ondansetron (ZOFRAN) injection 4 mg(Linked Group 3) 4 mg, IntraVENous, EVERY 6 HOURS PRN, Starting on 11/30/24 at 2114, Until Discontinued, Nausea, Vomiting, Administer if oral route cannot be used. * 1637 (Given - Provider: Marcella Hernandez RN) * 143 ([facility] Hold - Provider: [facility] [employer] - Reason: Unreviewed Transfer Orders) * 181 ([facility] Unhold - Provider: Aria Miles RN) ondansetron (ZOFRAN-ODT) disintegrating tablet 4 mg(Linked Group 3) 4 mg, Oral, EVERY 8 HOURS PRN, Starting on 11/30/24 at 2113, Until Discontinued, Nausea, Vomiting * 1637 (See Alternative - Provider: Marcella Hernandez RN) * 1431 ([facility] Hold - Provider: [facility] [employer] - Reason: Unreviewed Transfer Orders) * 181 ([facility] Unhold - Provider: Aria Miles RN) potassium [...] CrCl less than 30mL/min * 1431 ([facility] Hold - Provider: [facility] [employer] - Reason: Unreviewed Transfer Orders) * 181 ([facility] Unhold - Provider: Aria Miles RN) potassium [...] CrCl less than 30mL/min * 1431 ([facility] Hold - Provider: [facility] [employer] - Reason: Unreviewed Transfer Orders) * 1813 ([facility] Unhold - Provider: Aria Miles RN) sodium [...] Central Line= 20 mL/lumen * 1431 ([facility] Hold - Provider: [facility] [employer] - Reason: Unreviewed Transfer Orders) * 1813 ([facility] Unhold - Provider: Aria Miles RN) Order [...] BE BASED ON THE PRIMARY CLINICAL RECORDS. [facility]. provides no warranty or guarantee of the accuracy or completeness of information in this document.
--- NOTE | 2025-10-13 09:12 | XR_ITS ---
The [address] [address] Patient Name: CASEY DIAZ MRN: [id number] date: 1970 Sex: F Assigned Patient Location: LAB Current Patient Location: LAB Accession/Order Number: [id number] Exam Date: 10/13/2025 09:08 Report Date: 10/13/2025 11:51 At the request of: MALGORZATA GAN MD Procedure: XR chest 2V PA AND LATERAL CHEST: CLINICAL HISTORY: Malignant neoplasm of right kidney COMPARISON: 04/27/2020 There is no focal parenchymal consolidation, effusion or pneumothorax. The cardiac, hilar and mediastinal silhouettes are within normal limits. There is no vascular congestion. The visualized bony thorax is intact. There is subtle dextroscoliotic curvature. XR/XR chest 2V IMPRESSION: NO ACUTE CARDIOPULMONARY ABNORMALITY. Impression dictated by: Lyudmila Robbins M.D. 10/13/2025 11:51 AM Dictation Location: [place] [address] Electronically authenticated by: [id number] Y Date: 10/13/2025 11:51
--- NOTE | 2025-10-13 09:18 | CT_ITS ---
The [address] [address] Patient Name: CASEY DIAZ MRN: [id number] date: 1970 Sex: F Assigned Patient Location: LAB Current Patient Location: LAB Accession/Order Number: [id number] Exam Date: 10/13/2025 09:10 Report Date: 10/13/2025 12:00 At the request of: MALGORZATA GAN MD Procedure: CT abdomen pelvis wo/w con CT ABDOMEN AND PELVIS WITHOUT AND WITH CONTRAST CLINICAL DATA: Follow-up in patient with history of right renal carcinoma COMPARISON: CT 11/30/2024 and MRI 04/14/2025 Spiral images were obtained through the abdomen and pelvis before and after intravenous administration of 100 mL of Omnipaque 300. This CT exam was performed using one or more following dose reduction techniques: Automated exposure control, adjustment of the mA and/or kV according to patient size, or use of iterative reconstruction technique. Limited cuts through the lung bases show no contributory findings. The kidneys are normal in size and position. Precontrast, no renal, ureteral or bladder stones are seen. Following contrast administration, the renal nephrograms are symmetric. There is suture material and minor scarring at the superior pole of the right kidney where there is interval resection of the small enhancing mass seen at the time of the prior. No new renal mass lesions are identified. There is no hydronephrosis. The urinary bladder is poorly distended, limiting assessment. Fatty infiltration of the liver is again seen. There is also minimal focal fat near the fossa of the ligamentum teres. There is interval cholecystectomy which may be the etiology of mild biliary prominence. No common duct stones are noted. The spleen, pancreas and adrenal glands show no acute findings. There is atherosclerotic plaque at the aorta and iliac arteries. No enlarged lymph nodes or ascites are seen. The small bowel loops are normal caliber. There is stool throughout the colon. There are mild degenerative changes at the spine. Images through the pelvis show no dilated small bowel. There is a small amount of distal colonic stool. No diverticular disease is noted. The appendix and uterus are surgically absent. There is no ascites. CT/CT abdomen pelvis wo/w con IMPRESSION: INTERVAL RESECTION OF RIGHT RENAL MASS. NO SUSPECTED RECURRENCE OR METASTATIC DISEASE. FATTY LIVER. BILIARY PROMINENCE THAT MAY RELATE TO CHOLECYSTECTOMY. NO ACUTE FINDINGS. Impression dictated by: Lyudmila Robbins M.D. 10/13/2025 12:00 PM Dictation Location: [place] [address] Electronically authenticated by: [id number] Y Date: 10/13/2025 12:00
[2025-10-13 10:05] LABS: Alanine Aminotransferase 21 U/L (14-59); Albumin Globulin Ratio 1.1; Albumin Level 3.6 g/dL (3.4-5.0); Alkaline Phosphatase 115 U/L (46-116); Anion Gap 12.0; Aspartate Amino Transferase 12 U/L (15-37); Blood Urea Nitrogen 21.0 mg/dL (7.0-18.0); Calcium 8.5 mg/dL (8.5-10.1); Carbon Dioxide 26.6 mmol/L (21.0-32.0); Chloride 99 mmol/L (98-107); Estimated GFR (African America >60 (>=60 mL/min/1.73m^2); Estimated GFR (Non-African Ame 57 (>=60 mL/min/1.73m^2); Globulin 3.4 g/dL; Glucose 66 mg/dL (74-106); Potassium 3.6 mmol/L (3.5-5.1); Sodium 134 mmol/L (136-145); Total Protein 7.0 g/dL (6.4-8.2)
== END 2025-10-13 08:42 | disposition home or self-care (01) ==
LOC: LAB 08:41
PROVIDERS: PCP Internal Medicine; Visit Provider Urology
DX: Z12.31 Encounter for screening mammogram for malignant neoplasm of breast (principal); C64.9 Malignant neoplasm of unspecified kidney, except renal pelvis; K76.0 Fatty (change of) liver, not elsewhere classified
CPT/HCPCS: 36415; 71046; 74178; 77063; 77067; 80053; Q9967